=== PATIENT | female | born 1995 | race Caucasian/White ===

== ENCOUNTER 2017-08-02 11:45 | Emergency (ER) | payer BC, OTHER ==
[~2017-08-02] VITALS: Ht 172.7 cm; Wt 63.5 kg
[~2017-08-02 11:45] MED LIST: NAPR-243 PO; TRM50T PO
[2017-08-02] MEDS ORDERED: NS IV 1000 ML 1,000 ML IV ONE ×2 (11:51→14:10)
[2017-08-02] MEDS ORDERED: CATHETER FLUSH 10 ML SYR IV PRN (12:00)
[2017-08-02] MEDS ORDERED: IOHEXOL 350 MG/ML 100 ML (OMNIPAQUE 350) VIAL IV ONE (12:00)
[2017-08-02] MEDS ORDERED: NS 250 ML (IVPB) BAG IV ONE (12:00)
[2017-08-02 12:02] LABS: HEMOGLOBIN 11.8 G/DL (11.5-16.0); MEAN PLATELET VOLUME 8.5 FL (7.4-10.4); RED BLOOD COUNT 3.43 10^6/uL (4.35-5.85); RED CELL DISTRIBUTION WIDTH 13.3 % (10.0-14.5); WHITE BLOOD COUNT 4.9 10^3/uL (4.3-11.0)
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
[2017-08-02] MEDS ORDERED: TETANUS,DIPTH,PERTUSS P/F (BOOSTRIX) 0.5 ML VIAL IM ONE (12:15)
[2017-08-02 12:27] LABS: ALANINE AMINOTRANSFERASE 12 U/L (0-55); ALBUMIN 4.3 GM/DL (3.2-4.5); ALKALINE PHOSPHATASE 45 U/L (40-136); BILIRUBIN,DIRECT < 0.1 MG/DL (0.0-0.3); BILIRUBIN,INDIRECT 0.1 MG/DL; BILIRUBIN,TOTAL 0.2 MG/DL (0.1-1.0); BUN/CREATININE RATIO 15; CALCIUM 8.9 MG/DL (8.5-10.1); CARBON DIOXIDE 22 MMOL/L (21-32); CHLORIDE 106 MMOL/L (98-107); CREATININE SERUM 0.65 MG/DL (0.60-1.30); GFR ESTIMATED > 60; GLUCOSE 78 MG/DL (70-105); POTASSIUM 4.1 MMOL/L (3.6-5.0); SODIUM 137 MMOL/L (135-145); TOTAL PROTEIN 6.9 GM/DL (6.4-8.2)
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
[2017-08-02 13:23] LABS: BILIRUBIN,URINE NEGATIVE (NEGATIVE); CLARITY,URINE CLEAR; COLOR,URINE YELLOW; GLUCOSE, URINE (UA) NEGATIVE (NEGATIVE); KETONES,URINE NEGATIVE (NEGATIVE); LEUKOCYTE ESTERASE ,URINE NEGATIVE (NEGATIVE); NITRITE,URINE NEGATIVE (NEGATIVE); PH,URINE 5 (5-9); PROTEIN,URINE NEGATIVE (NEGATIVE); UROBILINOGEN,URINE NORMAL (NORMAL)
[2017-08-02] MEDS ORDERED: LYRICA (13:28)
[2017-08-02] MEDS ORDERED: COREG (13:28)
[2017-08-02 13:30] LABS: BACTERIA,URINE TRACE /HPF; WBC,URINE RARE /HPF
[2017-08-02] MEDS ORDERED: KETOROLAC 30 MG/ML VIAL IVP ONE (13:30)
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
[2017-08-02 13:35] LABS: AMPHETAMINE SCREEN, URINE NEGATIVE (NEGATIVE); BARBITURATE SCREEN URINE NEGATIVE (NEGATIVE); BENZODIAZEPINES SCREEN URINE NEGATIVE (NEGATIVE); CANNABINOID SCREEN, URINE NEGATIVE (NEGATIVE); COCAINE SCREEN URINE NEGATIVE (NEGATIVE); METHADONE STAT NEGATIVE (NEGATIVE); METHAMPHETAMINE SCREEN URINE S NEGATIVE (NEGATIVE); OPIATE SCREEN URINE NEGATIVE (NEGATIVE); OXYCODONE STAT NEGATIVE (NEGATIVE); PROPOXYPHENE STAT NEGATIVE (NEGATIVE); TRICYCLIC ANTIDEPRESSANTS SCRE POSITIVE (NEGATIVE)
[2017-08-02] MEDS ORDERED: CYMBALTA (13:38)
[2017-08-02] MEDS ORDERED: meTOproloL SUCCINATE 50 MG (TOPROL XL) TAB PO SCH (15:30)
[2017-08-02] MEDS ORDERED: METO-351 PO (15:33)
[2017-08-02 15:45] VITALS: BP 111/77
== END 2017-08-02 15:45 | disposition home or self-care (01) ==
LOC: EDUNIT# 11:45 → ER 11:47
DX: R41.0 Disorientation, unspecified (principal); R00.0 Tachycardia, unspecified; F32.9 Major depressive disorder, single episode, unspecified; R40.2142 Coma scale, eyes open, spontaneous, at arrival to emergency department; R40.2242 Coma scale, best verbal response, confused conversation, at arrival to emergency department; R40.2362 Coma scale, best motor response, obeys commands, at arrival to emergency department; V43.52XA Car driver injured in collision with other type car in traffic accident, initial encounter
CPT/HCPCS: 36415; 70450; 71045; 71260; 72125; 72131; 74177; 80048; 80076; 80306; 80320; 81000; 84443; 84703; 85027; 90471; 90715; 93005; 93041; 96361; 96374

== ENCOUNTER 2017-08-18 11:11 | Emergency (ER) | payer BC, OTHER ==
[~2017-08-18] VITALS: Ht 172.7 cm; Wt 63.5 kg
[~2017-08-18 11:11] MED LIST changes: +COREG; +CYMBALTA; +LYRICA; +METO-351 PO
[2017-08-18 11:50] LABS: BILIRUBIN,URINE NEGATIVE (NEGATIVE); CLARITY,URINE CLEAR; COLOR,URINE YELLOW; GLUCOSE, URINE (UA) NEGATIVE (NEGATIVE); KETONES,URINE NEGATIVE (NEGATIVE); LEUKOCYTE ESTERASE ,URINE 1+ (NEGATIVE); NITRITE,URINE NEGATIVE (NEGATIVE); PH,URINE 7 (5-9); PROTEIN,URINE NEGATIVE (NEGATIVE); UROBILINOGEN,URINE NORMAL (NORMAL)
[2017-08-18 12:03] LABS: BACTERIA,URINE NEGATIVE /HPF; RBC,URINE 0-2 /HPF; WBC,URINE 0-2 /HPF
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
[2017-08-18] MEDS ORDERED: KETOROLAC 30 MG/ML VIAL IVP STA (12:26)
[2017-08-18] MEDS ORDERED: NS IV 1000 ML 1,000 ML IV ONE (12:26)
[2017-08-18] MEDS ORDERED: ONDANSETRON 4 MG/2 ML (SDV) Z0FRAN IVP ONE (12:30)
[2017-08-18 12:31] LABS: AMPHETAMINE SCREEN, URINE NEGATIVE (NEGATIVE); BARBITURATE SCREEN URINE NEGATIVE (NEGATIVE); BENZODIAZEPINES SCREEN URINE NEGATIVE (NEGATIVE); CANNABINOID SCREEN, URINE NEGATIVE (NEGATIVE); COCAINE SCREEN URINE NEGATIVE (NEGATIVE); METHADONE STAT NEGATIVE (NEGATIVE); METHAMPHETAMINE SCREEN URINE S NEGATIVE (NEGATIVE); OPIATE SCREEN URINE POSITIVE (NEGATIVE); OXYCODONE STAT NEGATIVE (NEGATIVE); PROPOXYPHENE STAT NEGATIVE (NEGATIVE); TRICYCLIC ANTIDEPRESSANTS SCRE NEGATIVE (NEGATIVE)
[2017-08-18 12:37] LABS: BASOPHILS % (AUTO) 0 % (0-10); EOSINOPHILS # (AUTO) 0.1 10^3/uL (0.0-0.3); EOSINOPHILS % (AUTO) 1 % (0-10); HEMATOCRIT 39 % (35-52); LYMPHOCYTES # (AUTO) 1.7 X 10^3 (1.0-4.0); LYMPHOCYTES % (AUTO) 24 % (12-44); MEAN CORPUSCULAR HEMOGLOBIN 34 PG (25-34); MEAN CORPUSCULAR HGB CONC 34 G/DL (32-36); MEAN CORPUSCULAR VOLUME 101 FL (80-99); MONOCYTES # (AUTO) 0.6 X 10^3 (0.0-1.0); MONOCYTES % (AUTO) 8 % (0-12); NEUTROPHILS # (AUTO) 4.7 X 10^3 (1.8-7.8); NEUTROPHILS % (AUTO) 66 % (42-75); PLATELET COUNT 414 10^3/uL (130-400); RED BLOOD COUNT 3.83 10^6/uL (4.35-5.85); RED CELL DISTRIBUTION WIDTH 13.2 % (10.0-14.5)
[2017-08-18] MEDS ORDERED: NS 250 ML (IVPB) BAG IV ONE (12:45)
[2017-08-18] MEDS ORDERED: IOHEXOL 350 MG/ML 100 ML (OMNIPAQUE 350) VIAL IV ONE (12:45)
[2017-08-18] MEDS ORDERED: CATHETER FLUSH 10 ML SYR IV PRN (12:45)
[2017-08-18 12:55] LABS: ALANINE AMINOTRANSFERASE 13 U/L (0-55); ALBUMIN 4.6 GM/DL (3.2-4.5); ALKALINE PHOSPHATASE 57 U/L (40-136); BILIRUBIN,TOTAL 0.4 MG/DL (0.1-1.0); BUN/CREATININE RATIO 13; CALCIUM 9.4 MG/DL (8.5-10.1); CARBON DIOXIDE 25 MMOL/L (21-32); CHLORIDE 106 MMOL/L (98-107); CREATININE SERUM 0.67 MG/DL (0.60-1.30); GFR ESTIMATED > 60; GLUCOSE 92 MG/DL (70-105); LIPASE 13 U/L (8-78); SODIUM 138 MMOL/L (135-145); TOTAL PROTEIN 7.8 GM/DL (6.4-8.2)
--- NOTE | 2017-08-18 13:13 | Diagnostic Imaging Report ---
PROCEDURE: CT abdomen and pelvis with contrast. TECHNIQUE: Multiple contiguous axial images were obtained through the abdomen and pelvis after administration of intravenous contrast. INDICATION: Abdominal pain. FINDINGS: The previous CT abdomen/pelvis exam of 08/02/2017 fail to show any sign of acute abnormality of the abdomen or pelvis. There did appear to be a considerable amount of fecal material throughout the colon, however. On this study, the amount of fecal material within the colon has diminished significantly. However, there is still distention of much of the colon by gas. The appendix was not well-visualized but there are no indirect signs of acute appendicitis. There is no pelvic mass or free fluid collection noted. The uterus and urinary bladder are grossly unremarkable. The liver is homogeneous and not enlarged. The spleen, pancreas, adrenals, gallbladder, kidneys, aorta and inferior vena cava are unremarkable for an acute abnormality. The stomach is partially filled with gas and fluid and consequently difficult to assess. There is also distention of the distal esophagus by gas. The lung bases are clear. The bone windows show no evidence for fracture or for destructive lesion. IMPRESSION: 1. In the interval since the recent exam of 08/02/2017, the amount of fecal material within the colon has diminished significantly. However, there is still distention of much of the colon by gas. 2. There is still no acute abnormality of the abdomen or pelvis identified. Dictated by: Dictated on workstation # [id number]
[2017-08-18] MEDS ORDERED: ONDA4TAB11 PO (13:34)
[2017-08-18] MEDS ORDERED: HYOS0.1283 SL (13:34)
[2017-08-18 13:45] VITALS: BP 123/89
== END 2017-08-18 13:56 | disposition home or self-care (01) ==
LOC: EDUNIT# 11:11 → ER 11:13
DX: N92.6 Irregular menstruation, unspecified (principal); R10.84 Generalized abdominal pain; R14.1 Gas pain; M35.00 Sjogren syndrome, unspecified; F32.9 Major depressive disorder, single episode, unspecified
CPT/HCPCS: 36415; 74177; 80053; 80306; 80320; 81000; 83690; 84703; 85025; 86141; 96361; 96374; 96375

== ENCOUNTER 2018-02-13 11:26 | Emergency (ER) | payer BC, MEDICAID ==
[~2018-02-13] VITALS: Ht 172.7 cm; Wt 65.8 kg
[~2018-02-13 11:26] MED LIST changes: +HYOS0.1283 SL; +ONDA4TAB11 PO
--- OUTSIDE RECORDS SUMMARY | 2018-02-13 11:31 | XMS REPORT | Referral Summary ---
Author Author [facility] Organization [facility] Address Unknown Phone Unavailable Care Team Providers Care Registered Radiation Therapist Name Role Phone Jennifer Leonardo Francisco Javier PCP Encounter Date(s): 03/17/17 - 03/17/17 [facility] [address] [place] [address] [phone] Discharge Diagnosis: Back pain Discharge Diagnosis: Back muscle spasm Discharge Disposition: 01-Home or Self Care Attending Physician: Dequan Alejo MD Admitting Physician: Dequan Alejo MD Vital Signs Most recent to 1 oldest [Reference Range]: Temperature Oral 36.4 degC [35.8-37.3 degC] (03/17/17 12:31 PM) Peripheral Pulse 121 bpm Rate [60-100 bpm] *HI* (03/17/17 12:31 PM) Respiratory Rate 18 br/min [14-20 br/min] (03/17/17 12:31 PM) Blood Pressure 114/84 mmHg [90-140/60-90 mmHg] (03/17/17 12:31 PM) SpO2 96 % (03/17/17 12:31 PM) Problem List Condition Effective Dates Status Health Status Informant Anxiety(Confirmed) Active patient Depression(Confirmed Active patient ) Fibromyalgia(Confirm Active patient ed) Chronic Active patient tachycardia(Confirme d) Allergies, Adverse Reactions, Alerts No Known Allergies Medications carvedilol 3.125 mg, Oral, BID, 0 Refill(s) Start Date: 01/23/17 Status: Ordered cyclobenzaprine 10 mg oral tablet 10 mg 1 tabs, Oral, TID, as needed for spasm, # 12 tabs, 0 Refill(s) Start Date: 03/17/17 Stop Date: 03/18/17 Status: Ordered etodolac 500 mg, Oral, Daily, knee pain, 0 Refill(s) Start Date: 01/23/17 Status: Ordered Lyrica 300 mg, Oral, BID, 0 Refill(s) Start Date: 01/23/17 Status: Ordered Naprosyn 375 mg oral tablet 375 mg 1 tabs, Oral, BID, as needed for pain, # 20 tabs, 0 Refill(s) Start Date: 03/17/17 Stop Date: 03/18/17 Status: Ordered Trintellix 5 mg, Oral, Daily, 0 Refill(s) Start Date: 01/23/17 Status: Ordered Ultram 50 mg oral tablet 50 mg 1 tabs, Oral, q6hr, as needed for pain, # 8 tabs, 0 Refill(s) Start Date: 03/17/17 Stop Date: 03/18/17 Status: Ordered Results Hematology Most recent to 1 oldest [Reference Range]: WBC [4.8-10.8 8.9 10*3/uL 10*3/uL] (03/17/17 12:45 PM) RBC [4.00-5.20] 4.07 (03/17/17 12:45 PM) Hgb [12.0-16.0 14.0 gm/dL gm/dL] (03/17/17 12:45 PM) Hct [37.0-47.0 %] 40.7 % (03/17/17 12:45 PM) MCV [82.0-99.0 fL] 100.0 fL *HI* (03/17/17 12:45 PM) MCH [27.0-32.0 pg] 34.4 pg *HI* (03/17/17 12:45 PM) MCHC [32.0-36.0 34.4 gm/dL gm/dL] (03/17/17 12:45 PM) RDW [11.5-14.5 %] 12.7 % (03/17/17 12:45 PM) Platelet [150-400 335 10*3/uL 10*3/uL] (03/17/17 12:45 PM) MPV [9.4-12.4 fL] 8.7 fL *LOW* (03/17/17 12:45 PM) Immature 0.2 % Granulocytes (03/17/17 12:45 PM) [0.0-1.0 %] Neutrophils [51-75 70 % %] (03/17/17 12:45 PM) Lymphocytes [20-46 24 % %] (03/17/17 12:45 PM) Monocytes [4-11 %] 6 % (03/17/17 12:45 PM) Eosinophils [0-4 %] 0 % (03/17/17 12:45 PM) Basophils [0-2 %] 0 % (03/17/17 12:45 PM) Neutro Absolute 6.22 [1.90-7.00] (03/17/17 12:45 PM) Lymph Absolute 2.13 [0.80-3.30] (03/17/17 12:45 PM) [place] Absolute 0.53 [0.30-1.00] (03/17/17 12:45 PM) Eos Absolute 0.02 [0.00-0.50] (03/17/17 12:45 PM) Baso Absolute 0.02 [0.00-0.20] (03/17/17:45 PM) Nucleated RBC 0.0 /100 WBC Automated [0 /100 (03/17/17:45 PM) WBC] Chemistry Most recent to 1 oldest [Reference Range]: Sodium Lvl [136-144 136 mEq/L mEq/L] (03/17/17 12:45 PM) Potassium Lvl 3.5 mEq/L [3.6-5.1 mEq/L] *LOW* (03/17/17 12:45 PM) Chloride [99-109 105 mEq/L mEq/L] (03/17/17 12:45 PM) CO2 [22-32 mEq/L] 22 mEq/L (03/17/17 12:45 PM) AGAP [3-20 mEq/L] 9 mEq/L (03/17/17 12:45 PM) BUN [4-20 mg/dL] 12 mg/dL (03/17/17 12:45 PM) Glucose Lvl [70-100 83 mg/dL mg/dL] (03/17/17 12:45 PM) Creatinine Lvl 0.61 mg/dL [0.44-1.03 mg/dL] (03/17/17 12:45 PM) eGFR [>60 mL/min] >60 mL/min 1 (11/25/17 12:45 PM) Calcium Lvl 9.8 mg/dL [8.6-10.0 mg/dL] (03/17/17 12:45 PM) Albumin Lvl [3.5-4.8 5.0 gm/dL gm/dL] *HI* (03/17/17 12:45 PM) Total Protein 8.0 gm/dL [6.1-7.9 gm/dL] *HI* (03/17/17 12:45 PM) Globulin [1.9-4.3 3.0 gm/dL gm/dL] (03/17/17 12:45 PM) ALT [14-54 U/L] 14 U/L (03/17/17 12:45 PM) AST [15-41 U/L] 16 U/L (03/17/17 12:45 PM) Alk Phos [26-104 57 U/L U/L] (03/17/17 12:45 PM) Bili Total [0.2-1.2 0.4 mg/dL 2 mg/dL] (03/17/17 12:45 PM) Screen, Negative Urine NPT (03/17/17 12:45 PM) 1Result Comment: Multiply eGFR results by 1.21 for race. 2Result Comment: Naproxen, specifically the metabolite O-desmethylnaproxen, may cause spurious elevation in Total Bilirubin levels. Urinalysis Most recent to 1 oldest [Reference Range]: UA Color Yellow (03/17/17 12:45 PM) UA Appear Sl Cloudy (03/17/17 12:45 PM) UA pH [5.0-8.0] 5.5 (03/17/17 12:45 PM) UA Leuk Est Negative [Negative] (03/17/17 12:45 PM) UA Nitrite Negative [Negative] (03/17/17 12:45 PM) UA Protein Trace [Negative] *ABN* (03/17/17 12:45 PM) UA Glucose Negative [Negative] (03/17/17 12:45 PM) UA Ketones Negative [Negative] (03/17/17 12:45 PM) UA Urobilinogen 0.2 mg/dL [<1.0 mg/dL] (03/17/17 12:45 PM) UA Bili [Negative] Positive 1 *ABN* (03/17/17 12:45 PM) UA Blood [Negative] Negative (03/17/17 12:45 PM) UA Spec Grav 1.015 [1.003-1.030] (03/17/17 12:45 PM) Type Clean Catch (03/17/17 12:45 PM) 1Result Comment: Positive bilirubin by dipstick. Please use clinical correlation to determine a positive bilirubin in urine. Immunizations No data available for this section Procedures No data available for this section Social History Social History Type Response Smoking Status Current every day smoker; Type: Cigarettes; Tobacco use per day: Between 1/4 pack and 1/2 pack entered on: 01/22/17 Assessment and Plan No data available for this section
--- OUTSIDE RECORDS SUMMARY | 2018-02-13 11:31 | XMS REPORT | Referral Summary ---
Author Author [facility] Organization [facility] Address Unknown Phone Unavailable Care Team Providers Care Compass Operator Name Role Phone Neli Oliveira PCP Encounter VC Date(s): 06/18/15 - 06/18/15 [facility] [address] [place] [address] [facility] Discharge Diagnosis: Cervical sprain Discharge Disposition: 01-Home or Self Care Attending Physician: Toy Mcdaniel PA-C Attending Physician: Provider, Immediate Care Admitting Physician: Provider, Immediate Care Vital Signs Most recent to 1 oldest [Reference Range]: Temperature Oral 36.1 degC [35.8-37.3 degC] (06/18/15 1:12 PM) Peripheral Pulse 136 bpm Rate [60-100 bpm] *HI* (06/18/15 1:12 PM) Blood Pressure 131/88 mmHg [90-140/60-90 mmHg] (06/18/15 1:12 PM) SpO2 98 % (06/18/15 1:12 PM) Problem List No data available for this section Allergies, Adverse Reactions, Alerts No Known Allergies Medications cyclobenzaprine Oral, 0 Refill(s) Start Date: 06/18/15 Status: Ordered Cymbalta Oral, 0 Refill(s) Start Date: 04/19/15 Status: Ordered gabapentin Oral, 0 Refill(s) Start Date: 04/19/15 Status: Ordered NSAID for arthritis NSAID for arthritis, 0 Refill(s) Start Date: 06/18/15 Status: Ordered oxyCODONE 5 mg oral tablet mg tabs, Oral, q6hr, 0 Refill(s) Start Date: 04/19/15 Status: Ordered Results No data available for this section Immunizations No data available for this section Procedures No data available for this section Social History Social History Type Response Smoking Status Former smoker Assessment and Plan Extracted from: Title: Office Visit Note Author: Toy Mcdaniel PA-C Date: 06/18/15 Assessment/Plan 1.Cervical sprain Pt declined cervical x-ray. Will RICE injury, taken NSAIDs for pain. No neurological deficits noted. Diagnosis and treatment discussed. Patient advised to follow up with PCP in 2-3 days. If symptoms worsen at any time, patient will go to the nearest ER for further evaluation. Patient stable upon discharge, alert and orientated with no apparent distress, and indicated understanding of discharge instructions. Ordered: Office Visit Level 2 Est 39512
--- OUTSIDE RECORDS SUMMARY | 2018-02-13 11:31 | XMS REPORT | Referral Summary ---
Author Author [facility] Organization [facility] Address Unknown Phone Unavailable Care Team Providers Care Counter Attendant Name Role Phone Neli Oliveira PCP Encounter VC Date(s): 07/02/15 - 07/02/15 [facility] [address] [place] [address] [facility] Discharge Diagnosis: Lumbago with sciatica Discharge Disposition: 01-Home or Self Care Attending Physician: Maureen Lyles Attending Physician: Provider, Immediate Care Admitting Physician: Provider, Immediate Care Vital Signs Most recent to 1 oldest [Reference Range]: Temperature Oral 37 degC [35.8-37.3 degC] (07/02/15 12:38 PM) Peripheral Pulse 118 bpm Rate [60-100 bpm] *HI* (07/02/15 12:38 PM) Respiratory Rate 18 br/min [14-20 br/min] (07/02/15 12:38 PM) Blood Pressure 124/80 mmHg [90-140/60-90 mmHg] (07/02/15 12:38 PM) SpO2 98 % (07/02/15 12:38 PM) Problem List No data available for this section Allergies, Adverse Reactions, Alerts No Known Allergies Medications cyclobenzaprine Oral, 0 Refill(s) Start Date: 06/18/15 Status: Ordered Cymbalta Oral, 0 Refill(s) Start Date: 04/19/15 Status: Ordered etodolac 500 mg oral tablet 500 mg 1 tabs, Oral, BID, # 180 tabs, 0 Refill(s) Start Date: 07/02/15 Status: Ordered gabapentin Oral, 0 Refill(s) Start Date: 04/19/15 Status: Ordered HYDROcodone-acetaminophen 7.5 mg-325 mg oral tablet 1 tabs, Oral, q6hr, X 2 days, # 8 tabs, 0 Refill(s) Start Date: 07/02/15 Stop Date: 07/04/15 Status: Ordered lidocaine 5% topical film 1 patches, Topical, Daily, remove patches after 12 hours, # 7 patches, 0 Refill( s), Pharmacy: [facility] #[id number] Start Date: 07/02/15 Stop Date: 07/09/15 Status: Ordered lidocaine 5% topical film 1 patches, Topical, Daily, remove patches after 12 hours, # 7 patches, 0 Refill( s), Pharmacy: [facility] #[id number] Start Date: 07/02/15 Stop Date: 07/09/15 Status: Ordered lidocaine 5% topical film 1 patches, Topical, Daily, # 30 patches, 0 Refill(s) Start Date: 07/02/15 Status: Ordered NSAID for arthritis NSAID for [...] Extracted from: Title: Office Visit Note Author: Maureen Lyles Date: 07/02/15 Assessment/Plan 1.Lumbago with sciatica Discussed with patient that I will give her 2 days worth of narcotic medication but she needs to establish with her PCP for further pain management. Discussed use of therapeutic techniques: PRICEM therapy (protection, relative rest, ice, compression medications, modalities) for symptomatic relief. Instructed patient on medication, use, common side effects, and administration. Discussed proper OTC medication, including Tylenol or ibuprofen, for symptomatic relief. Instructed patient if symptoms worsen or new symptoms arise to seek medical attention here or at the ER. If no improvement of symptoms follow up with PCP in 2-3 days. Patient voiced understanding and agreed with treatment plan. Patient dismissed in stable condition. Ordered: Office Visit Level 3 Est 66716 Orders: HYDROcodone-acetaminophen, 1 tabs, Oral, q6hr, X 2 days, # 8 tabs, 0 Refill(s) Extracted from: Title: Ambulatory Patient Education Author: Maureen Lyles Date: 07/02/15 Family Medicine Back Exercises Back exercises help treat and prevent back injuries. The goal of back exercises is to increase the strength of your abdominal and back muscles and the flexibility of your back. These exercises should be started when you no longer have back pain. Back exercises include: Pelvic Tilt. Lie on your back with your knees bent. Tilt your pelvis until the lower part of your back is against the floor. Hold this position 5 to 10 sec and repeat 5 to 10 times. Knee to Chest. Pull first 1 knee up against your chest and hold for 20 to 30 seconds, repeat this with the other knee, and then both knees. This may be done with the other leg straight or bent, whichever feels better. Sit-Ups or Curl-Ups. Bend your knees 90 degrees. Start with tilting your pelvis, and do a partial, slow sit-up, lifting your trunk only 30 to 45 degrees off the floor. Take at least 2 to 3 seconds for each sit-up. Do not do sit-ups with your knees out straight. If partial sit-ups are difficult, simply do the above but with only tightening your abdominal muscles and holding it as directed. Hip-Lift. Lie on your back with your knees flexed 90 degrees. Push down with your feet and shoulders as you raise your hips a couple inches off the floor; hold for 10 seconds, repeat 5 to 10 times. Back arches. Lie on your stomach, propping yourself up on bent elbows. Slowly press on your hands, causing an arch in your low back. Repeat 3 to 5 times. Any initial stiffness and discomfort should lessen with repetition over time. Shoulder-Lifts. Lie face down with arms beside your body. Keep hips and torso pressed to floor as you slowly lift your head and shoulders off the floor. Do not overdo your exercises, especially in the beginning. Exercises may cause you some mild back discomfort which lasts for a few minutes; however, if the pain is more severe, or lasts for more than 15 minutes, do not continue exercises until you see your caregiver. Improvement with exercise therapy for back problems is slow. See your caregivers for assistance with developing a proper back exercise program. This information is not intended to replace advice given to you by your health care provider. Make sure you discuss any questions you have with your health care provider. Document Released: 05/17/2005 Document Revised: 07/01/2012 Document Reviewed: ExitCare Patient Information 2015 [employer], [facility]. No follow up information was provided.
--- OUTSIDE RECORDS SUMMARY | 2018-02-13 11:32 | XMS REPORT ---
Author Author Elijah Pedro [facility] Address [address], [place] [id number] Care Team Providers Care Manufacturing Engineering Manager Name Role Phone Elijah Pedro Unavailable PROBLEMS Type Condition ICD9-CM Code TCO34-OL Code Onset Dates Condition Status SNOMED Code Problem Depression with anxiety F41.8 Active 431741418 Problem Fibromyalgia M79.7 Active 005856370 Problem Other chronic pain G89.29 Active 66162889 Problem PSVT (paroxysmal supraventricular tachycardia) I47.1 Active 94085033 Problem Psychophysiological insomnia F51.04 Active 544106922 ALLERGIES Substance Reaction Event Type Date Status N.K.D.A. Unknown Non Drug Allergy Jul, Unknown SOCIAL HISTORY No smoking Hx information available PLAN OF CARE Activity Details Follow Up 6 Weeks Reason:null VITAL SIGNS Weight 130 lbs 2016-08-16 Height 67 in 2016-08-16 BMI 20.36 kg/m2 2016-08-16 Temperature 98.9 degrees Fahrenheit 2016-08-16 Respiratory Rate 16 /min 2016-08-16 Heart Rate 105 /min 2016-08-16 Blood pressure systolic 105 mm Hg 2016-08-16 Blood pressure diastolic 71 mm Hg 2016-08-16 MEDICATIONS Medication Instructions Dosage Frequency Start Date End Date Duration Status [place] 325 mg-5 mg orally bid/prn 1 tab(s) Active Lyrica 150 mg orally 3 times a day 1 cap(s) 8h 30 days Active Coreg 3.125 mg orally 2 times a day 1 tab(s) 12h 90 days Active etodolac 500 mg orally 2 times a day 1 tab(s) 12h Active Ambien 5 mg orally once a day (at bedtime) 1 tab(s) 30 days Active DULoxetine Hydrochloride 60 mg orally once a day 1 cap(s) 24h Jul, 30 day(s) Active RESULTS No Results PROCEDURES Procedure Date Ordered Related Diagnosis Body Site Office New Level 3 August 16, 2016 IMMUNIZATIONS No Known Immunizations
--- OUTSIDE RECORDS SUMMARY | 2018-02-13 11:32 | XMS REPORT ---
Author Author Estrella Redd Organization [employer] Address Unknown Phone Unavailable Care Team Providers Care Electro Mechanic Name Role Phone Estrella Redd CP Unavailable Allergies No Known Allergies Problems Problem Type Condition Code Onset Dates Condition Status Problem Abnormal EKG R94.31 Active Problem Chest pain R07.9 Active Problem Sinus tachycardia R00.0 Active Problem Fibromyalgia M79.7 Active Problem Anxiety F41.9 Active Problem Palpitation R00.2 Active Medications No Known Medications Results No Known Results Summary Purpose [employer] Submission
--- OUTSIDE RECORDS SUMMARY | 2018-02-13 11:32 | XMS REPORT ---
Author Author Tramaine Edenilsonsander Organization [facility] Address [address] [place] [address] Care Team Providers Care Pre Owned Sales Manager Name Role Phone Estrella Redd Unavailable PROBLEMS Type Condition ICD9-CM Code [id number] Code Onset Dates Condition Status SNOMED Code Problem Sinus tachycardia R00.0 Active 62321100 Problem Abnormal EKG R94.31 Active 037428386 Problem Palpitation R00.2 Active 50499527 Problem Fibromyalgia M79.7 Active 409753469 Problem Chest pain R07.9 Active 77513206 Problem Anxiety F41.9 Active 12006484 ALLERGIES No Known Allergies ENCOUNTERS Encounter Location Date Diagnosis [address] [address] Nov, [address] [address] Nov, Tachycardia R00.[address] [address] Nov, [address] [address] Nov, [address] [address] Nov, [address] [address] Nov, [address] [address] Nov, Sinus tachycardia R00.0 ; Chest pain R07.9 ; Palpitation R00.2 ; Anxiety F41.9 and Fibromyalgia M79.[address] [address] Nov, Abnormal EKG R94.31 IMMUNIZATIONS No Known Immunizations SOCIAL HISTORY Never Assessed REASON FOR VISIT ^[facility] OP TM PER DR NAVJOT [place] DX ABNORMAL EKG PLAN OF CARE Activity Details Follow Up 1 Week Reason: VITAL SIGNS Height 5 ft 8 in in 2015-11-23 Weight 116 lbs 2015-11-23 BMI 17.64 kg/m2 2015-11-23 Oximetry 98 % 2015-11-23 Heart Rate 121 /min 2015-11-23 Blood pressure systolic 110 mm Hg 2015-11-23 Blood pressure diastolic 80 mm Hg 2015-11-23 MEDICATIONS Medication Instructions Dosage Frequency Start Date End Date Duration Status Cymbalta 60 MG Orally Twice a day 1 capsule 12h Active Ambien 5 MG Orally Once a day 1 tablet at bedtime 24h Active Xanax 0.5 MG Orally Three times a day 1 tablet 8h Active [place] 5-325 MG Orally bid 1 tab 12h Active Neurontin 600 MG Orally Three times a day 1 tablet 8h Active RESULTS No Results PROCEDURES No Known procedures INSTRUCTIONS MEDICATIONS ADMINISTERED No Known Medications MEDICAL (GENERAL) HISTORY Type Description Date Medical History anxiety disorder Medical History scoliosis Medical History chest pain Medical History supraventricular tachycardia by hisptory - no documentation Medical History Fibromyalgia
--- OUTSIDE RECORDS SUMMARY | 2018-02-13 11:32 | XMS REPORT ---
Author Author Estrella Redd Organization [employer] Address Unknown Phone Unavailable Care Team Providers Care Spa Manager/Esthetician Name Role Phone Estrella Redd CP Unavailable [...]
--- OUTSIDE RECORDS SUMMARY | 2018-02-13 11:32 | XMS REPORT | Referral Summary ---
Author Author [facility] Organization [facility] Address Unknown Phone Unavailable Care Team Providers Care Software Engineer Backend Name Role Phone Neli Oliveira PCP Encounter Date(s): 09/18/15 - 09/18/15 [facility] [address] [place] [address] [facility] Discharge Diagnosis: Muscle pain, fibromyalgia Discharge Disposition: 01-Home or Self Care Attending Physician: Provider, Immediate Care Admitting Physician: Provider, Immediate Care Vital Signs Most recent to 1 oldest [Reference Range]: Temperature Oral 36.9 degC [35.8-37.3 degC] (09/18/15 12:44 PM) Peripheral Pulse 94 bpm Rate [60-100 bpm] (09/18/15 12:44 PM) Blood Pressure 113/69 mmHg [90-140/60-90 mmHg] (09/18/15 12:44 PM) SpO2 98 % (09/18/15 12:44 PM) Problem List No data available for [...] 0 Refill(s) Start Date: 04/19/15 Status: Ordered lidocaine 5% topical film 1 patches, Topical, Daily, remove patches after 12 hours, # 7 patches, 0 Refill( s), Pharmacy: [facility] #[id number] Start Date: 07/02/15 Stop Date: 07/09/15 Status: Ordered lidocaine 5% topical film 1 patches, Topical, Daily, remove patches after 12 hours, # 7 patches, 0 Refill( s), Pharmacy: [facility] #[id number] Start Date: 07/02/15 Stop Date: 07/09/15 Status: [...] smoker Assessment and Plan Extracted from: Title: Ambulatory Patient Education Author: Rupert Munoz APRN Date: 09/17 Family Medicine Fibromyalgia Fibromyalgia is a disorder that is often misunderstood. It is associated with muscular pains and tenderness that comes and goes. It is often associated with fatigue and sleep disturbances. Though it tends to be long-lasting, fibromyalgia is not life-threatening. CAUSES The exact cause of fibromyalgia is unknown. People with certain gene types are predisposed to developing fibromyalgia and other conditions. Certain factors can play a role as triggers, such as: Spine disorders. Arthritis. Severe injury (trauma) and other physical stressors. Emotional stressors. SYMPTOMS The main symptom is pain and stiffness in the muscles and joints, which can vary over time. Sleep and fatigue problems. Other related symptoms may include: Bowel and bladder problems. Headaches. Visual problems. Problems with odors and noises. Depression or mood changes. Painful periods (dysmenorrhea). Dryness of the skin or eyes. DIAGNOSIS There are no specific tests for diagnosing fibromyalgia. Patients can be diagnosed accurately from the specific symptoms they have. The diagnosis is made by determining that nothing else is causing the problems. TREATMENT There is no cure. Management includes medicines and an active, healthy lifestyle. The goal is to enhance physical fitness, decrease pain, and improve sleep. HOME CARE INSTRUCTIONS Only take [id number] or prescription medicines as directed by your caregiver. Sleeping pills, tranquilizers, and pain medicines may make your problems worse. Low-impact aerobic exercise is very important and advised for treatment. At first, it may seem to make pain worse. Gradually increasing your tolerance will overcome this feeling. Learning relaxation techniques and how to control stress will help you. Biofeedback, visual imagery, hypnosis, muscle relaxation, yoga, and meditation are all options. Anti-inflammatory medicines and physical therapy may provide short-term help. Acupuncture or massage treatments may help. Take muscle relaxant medicines as suggested by your caregiver. Avoid stressful situations. Plan a healthy lifestyle. This includes your diet, sleep, rest, exercise, and friends. Find and practice a hobby you enjoy. Join a fibromyalgia support group for interaction, ideas, and sharing advice. This may be helpful. SEEK MEDICAL CARE IF: You are not having good results or improvement from your treatment. FOR MORE INFORMATION National Fibromyalgia Association: www.fmaware.org Arthritis Foundation: www.arthritis.org This information is not intended to replace advice given to you by your health care provider. Make sure you discuss any questions you have with your health care provider. Document Released: 04/09/2006 Document Revised: 07/01/2012 Document Reviewed: ExitCare Patient Information 2015 [employer]. Follow Up With: Where: When: Please follow up with Rheumatology this next week Comments:
--- OUTSIDE RECORDS SUMMARY | 2018-02-13 11:32 | XMS REPORT ---
Author Author Estrella Redd Organization [employer] Address Unknown Phone Unavailable Care Team Providers Care Electronic Sales And Service Technician Name Role Phone Estrella Redd CP Unavailable Allergies No Known Allergies Problems Problem Type Condition Code Onset Dates Condition Status Problem Abnormal EKG R94.31 Active Problem Chest pain R07.9 Active Problem Sinus tachycardia R00.0 Active Problem Fibromyalgia M79.7 Active Problem Anxiety F41.9 Active Problem Palpitation R00.2 Active Medications Medication Code System Code Instructions Start Date End Date Status Dosage Lab Order NDC 0 Orders Nov 23, 2015 as directed Results No Known Results Summary Purpose [employer] Submission
--- OUTSIDE RECORDS SUMMARY | 2018-02-13 11:32 | XMS REPORT | Referral Summary ---
Author Author [facility] Organization [facility] Address Unknown Phone Unavailable Care Team Providers Care Health And Nutrition Specialist Name Role Phone Oral Nova PCP Encounter Date(s): 07/03/16 - 07/03/16 [facility] [address] [place], [place] [address] Discharge Diagnosis: Nonspecific chest pain Discharge Diagnosis: Tachycardia Discharge Diagnosis: Dehydration Discharge Disposition: 01-Home or Self Care Attending Physician: Juvenal Marinelli MD Admitting Physician: Juvenal Marinelli MD Vital Signs Most recent to 1 oldest [Reference Range]: Temperature Temporal 36.7 degC Artery [36.3-37.8 (07/03/16 2:14 PM) degC] Peripheral Pulse 145 bpm Rate [60-100 bpm] *HI* (07/03/16 2:38 PM) Heart Rate Monitored 99 bpm [60-100 bpm] (07/03/16 5:02 PM) Respiratory Rate 19 br/min [14-20 br/min] (07/03/16 5:02 PM) Blood Pressure 132/85 mmHg [90-140/60-90 mmHg] (07/03/16 4:30 PM) Mean Arterial 100 mmHg Pressure, Cuff (07/03/16 4:30 PM) SpO2 95 % (07/03/16 4:30 PM) Problem List Condition Effective Dates Status Health Status Informant Fibromyalgia(Confirm Active patient ed) Chronic Active patient tachycardia(Confirme d) No Chronic Problems Active Allergies, Adverse Reactions, Alerts No Known Allergies [...] # 7 patches, 0 Refill( s), Pharmacy: [facility] #[id number] Start Date: 07/02/15 Stop Date: 07/09/15 Status: Ordered lidocaine 5% topical film 1 patches, Topical, Daily, remove patches after 12 hours, # 7 patches, 0 Refill( s), Pharmacy: [facility] #[id number] Start Date: 07/02/15 Stop Date: 07/09/15 Status: Ordered lidocaine 5% topical film 1 patches, Topical, Daily, # 30 patches, 0 Refill(s) Start Date: 07/02/15 Status: Ordered NSAID for arthritis NSAID for arthritis, 0 Refill(s) Start Date: 06/18/15 Status: Ordered oxyCODONE 5 mg oral tablet mg tabs, Oral, q6hr, 0 Refill(s) Start Date: 04/19/15 Status: Ordered Results Hematology Most recent to 1 oldest [Reference Range]: WBC [4.8-10.8 8.3 10*3/uL 10*3/uL] (07/03/16 2:35 PM) RBC [4.00-5.20] 4.30 (07/03/16 2:35 PM) Hgb [12.0-16.0 14.7 gm/dL gm/dL] (07/03/16 2:35 PM) Hct [37.0-47.0 %] 44.1 % (07/03/16 2:35 PM) MCV [82.0-99.0 fL] 102.6 fL *HI* (07/03/16 2:35 PM) MCH [27.0-32.0 pg] 34.2 pg *HI* (07/03/16 2:35 PM) MCHC [32.0-36.0 33.3 gm/dL gm/dL] (07/03/16 2:35 PM) RDW [11.5-14.5 %] 12.7 % (07/03/16 2:35 PM) Platelet [150-400 290 10*3/uL 10*3/uL] (07/03/16 2:35 PM) MPV [9.4-12.4 fL] 9.2 fL *LOW* (07/03/16 2:35 PM) Immature 0.4 % Granulocytes (07/03/16 2:35 PM) [0.0-1.0 %] Neutrophils [51-75 64 % %] (07/03/16 2:35 PM) Lymphocytes [20-46 29 % %] (07/03/16 2:35 PM) Monocytes [4-11 %] 6 % (07/03/16 2:35 PM) Eosinophils [0-4 %] 0 % (07/03/16 2:35 PM) Basophils [0-2 %] 0 % (07/03/16 2:35 PM) Neutro Absolute 5.31 [1.90-7.00] (07/03/16 2:35 PM) Lymph Absolute 2.39 [0.80-3.30] (07/03/16 2:35 PM) Terry Absolute 0.49 [0.30-1.00] (07/03/16 2:35 PM) Eos Absolute 0.03 [0.00-0.50] (07/03/16 2:35 PM) Baso Absolute 0.01 [0.00-0.20] (07/03/16 2:35 PM) Nucleated RBC 0.0 /100 WBC Automated [0 /100 (07/03/16 2:35 PM) WBC] Chemistry Most recent to 1 oldest [Reference Range]: Sodium Lvl [136-144 136 mEq/L mEq/L] (07/03/16 2:35 PM) Potassium Lvl 3.6 mEq/L [3.6-5.1 mEq/L] (07/03/16 2:35 PM) Chloride [99-109 102 mEq/L mEq/L] (07/03/16 2:35 PM) CO2 [22-32 mEq/L] 24 mEq/L (07/03/16 2:35 PM) AGAP [3-20] 10 (07/03/16 2:35 PM) BUN [4-20 mg/dL] 7 mg/dL (07/03/16 2:35 PM) Glucose Lvl [70-100 114 mg/dL mg/dL] *HI* (07/03/16 2:35 PM) Creatinine Lvl 0.61 mg/dL [0.44-1.03 mg/dL] (07/03/16 2:35 PM) eGFR [>60] >60 1 (07/03/16 2:35 PM) Calcium Lvl 9.5 mg/dL [8.6-10.0 mg/dL] (07/03/16 2:35 PM) Albumin Lvl [3.5-4.8 4.9 gm/dL gm/dL] *HI* (07/03/16 2:35 PM) Total Protein 7.8 gm/dL [6.1-7.9 gm/dL] (07/03/16 2:35 PM) Globulin [1.9-4.3 2.9 gm/dL gm/dL] (07/03/16 2:35 PM) ALT [14-54 U/L] 12 U/L *LOW* (07/03/16 2:35 PM) AST [15-41 U/L] 17 U/L (07/03/16 2:35 PM) Alk Phos [26-104 59 U/L U/L] (07/03/16 2:35 PM) Bili Total [0.2-1.2 0.4 mg/dL 2 mg/dL] (07/03/16 2:35 PM) Troponin [<0.06 <0.05 ng/mL ng/mL] (07/03/16 2:35 PM) Screen, Negative Urine NPT (07/03/16 2:58 PM) TSH with Reflex Free 1.50 T4 [0.35-5.50] (07/03/16 2:35 PM) 1Result Comment: Multiply eGFR results by 1.21 for race. 2Result Comment: Naproxen, specifically the metabolite O-desmethylnaproxen, may cause spurious elevation in Total Bilirubin levels. Toxicology Most recent to 1 oldest [Reference Range]: U Amphetamine Scrn Negative (07/03/16 2:50 PM) U Cocaine Scrn Negative (07/03/16 2:50 PM) U Cannab Scrn Negative (07/03/16 2:50 PM) U Opiate Scrn Negative (07/03/16 2:50 PM) U PCP Scrn Negative (07/03/16 2:50 PM) U Benzodiazepine Negative Scrn (07/03/16 2:50 PM) U Barbiturate Scrn Negative (07/03/16 2:50 PM) Methadone Lvl Negative (07/03/16 2:50 PM) Tricyclics Negative 1 (07/03/16 2:50 PM) 1Result Comment: Cut-off concentrations: Amphetamines: 1000 ng/mL Cocaine: 300 ng/mL Cannabinoid: 50 ng/mL Opiate: 300 ng/mL Phencyclidine (PCP): 25 ng/mL Benzodiazepine: 200 ng/mL Barbiturate: 200 ng/mL Methadone: 300 ng/mL Tricyclic: 300 ng/mL The urine drug screen assays are qualitative screens. A more specific GC/MS method must be performed to obtain a confirmed analytical result. Unconfirmed screening results must not be used for non-medical purposes(e.g. employment or legal testing) Immunizations No data available for this section Procedures No data available for this section Social History Social History Type Response Smoking Status Former smoker Assessment and Plan No data available for this section
--- OUTSIDE RECORDS SUMMARY | 2018-02-13 11:32 | XMS REPORT | Referral Summary ---
Author Author [facility] Organization [facility] Address Unknown Phone Unavailable Care Team Providers Care Inspector [employer]ated [employer] Name Role Phone Leonardo Rodriguez PCP Encounter [facility] Date(s): 05/20/17 - 05/20/17 [facility] [address], [place] [address] Discharge Diagnosis: Musculoskeletal back pain Discharge Diagnosis: Accidental fall Discharge Disposition: 01-Home or Self Care Attending Physician: Ismael Munoz DO Admitting Physician: Ismael Munoz DO Vital Signs Most recent to 1 oldest [Reference Range]: Temperature Temporal 36.8 degC Artery [36.3-37.8 (05/20/17 12:25 PM) degC] Peripheral Pulse 119 bpm Rate [60-100 bpm] *HI* (05/20/17 12:25 PM) Respiratory Rate 12 br/min [14-20 br/min] *LOW* (05/20/17 12:25 PM) Blood Pressure 120/86 mmHg [90-140/60-90 mmHg] (05/20/17 12:25 PM) SpO2 97 % (05/20/17 12:25 PM) Problem List Condition Effective Dates Status Health Status Informant Anxiety(Confirmed) Active patient Depression(Confirmed Active patient ) Fibromyalgia(Confirm Active patient ed) Chronic Active patient tachycardia(Confirme d) Allergies, Adverse Reactions, Alerts Substance Reaction Severity Status Ultram1 Severe Active 1siezure Medications carvedilol 3.125 mg, Oral, BID, 0 Refill(s) Start Date: 01/23/17 Status: Ordered cyclobenzaprine 10 mg oral tablet 10 mg 1 tabs, Oral, TID, as needed for spasm, X 5 days, # 15 tabs, 0 Refill(s) Start Date: 05/20/17 Stop Date: 05/25/17 Status: Ordered etodolac 500 mg, Oral, Daily, knee pain, 0 Refill(s) Start Date: 01/23/17 Status: Ordered Lyrica 300 mg, Oral, BID, 0 Refill(s) Start Date: 01/23/17 Status: Ordered Naprosyn 500 mg oral tablet 500 mg 1 tabs, Oral, BID, X 7 days, # 14 tabs, 0 Refill(s) Start Date: 05/20/17 Stop Date: 05/27/17 Status: Ordered Trintellix 5 mg, Oral, Daily, 0 Refill(s) Start Date: 01/23/17 Status: Ordered Results Chemistry Most recent to 1 oldest [Reference Range]: Screen, Negative Urine NPT (05/20/17 2:39 PM) Immunizations No data available for this section Procedures No data available for this section Social History Social History Type Response Smoking Status 4 or less cigarettes(less than 1/4 pack)/day in last 30 days ; Type: Cigarettes; Tobacco use per day: Less than 1/4 pack entered on: 05/20/17 Assessment and Plan No data available for this section
--- OUTSIDE RECORDS SUMMARY | 2018-02-13 11:32 | XMS REPORT ---
Author Author Elijah Pedro [facility] Address [address] [place], [place] [id number] Care Team Providers Care Kettle Coordinator Name Role Phone Elijah Pedro Unavailable PROBLEMS Type Condition ICD9-CM Code [id number] Code Onset Dates Condition Status SNOMED Code Problem Other chronic pain G89.29 Active 38506855 Problem Other specified conditions associated with female genital organs and menstrual cycle N94.89 Active 821091494 Problem Dysmenorrhea N94.6 Active 752888411 Problem PSVT (paroxysmal supraventricular tachycardia) I47.1 Active 40753744 Problem Psychophysiological insomnia F51.04 Active 586468953 Problem Depression with anxiety F41.8 Active 427853517 Problem Fibromyalgia M79.7 Active 398218448 ALLERGIES No Information SOCIAL HISTORY Never Assessed PLAN OF CARE VITAL SIGNS MEDICATIONS Unknown Medications RESULTS No Results PROCEDURES No Known procedures IMMUNIZATIONS No Known Immunizations MEDICAL (GENERAL) HISTORY Type Description Date Medical History fibromialgia 2016 Medical History arthritis 2016 Medical History lupus 2014 Medical History depression 2014 Medical History insomnia Medical History tachycardia has done a stress test ekg in the past
--- OUTSIDE RECORDS SUMMARY | 2018-02-13 11:32 | XMS REPORT ---
Author Author Elijah Pedro [facility] Address [address] [place], [place] [id number] Care Team Providers Care Sorter Packer Name Role Phone Elijah Pedro Unavailable PROBLEMS Type Condition ICD9-CM Code [id number] Code Onset Dates Condition Status SNOMED Code Problem Other chronic pain G89.29 Active 74129645 Problem Other specified conditions associated with female genital organs and menstrual cycle N94.89 Active 971070296 Problem Dysmenorrhea N94.6 Active 003237156 Problem PSVT (paroxysmal supraventricular tachycardia) I47.1 Active 48698177 Problem Psychophysiological insomnia F51.04 Active 963180575 Problem Depression with anxiety F41.8 Active 637201693 Problem Fibromyalgia M79.7 Active 433069764 ALLERGIES Unknown Allergies SOCIAL HISTORY No smoking Hx information available PLAN OF CARE VITAL SIGNS MEDICATIONS Unknown Medications RESULTS No Results PROCEDURES No Known procedures IMMUNIZATIONS No Known Immunizations
--- OUTSIDE RECORDS SUMMARY | 2018-02-13 11:32 | XMS REPORT | Referral Summary ---
[facility] Address Unknown Phone Unavailable Encounter [facility] [id number] Date(s): 04/19/15 - 04/19/15 [facility] [address] [place] [address] [facility] Discharge Disposition: 01-Home or Self Care Attending Physician: Provider, Immediate Care Attending Physician: Madi Alfred MD Admitting Physician: Provider, Immediate Care Vital Signs Most recent to 1 oldest [Reference Range]: Temperature Oral 36.7 degC [35.8-37.3 degC] (04/19/15 1:27 PM) Peripheral Pulse 109 bpm Rate [60-100 bpm] *HI* (04/19/15 1:27 PM) Blood Pressure 120/85 mmHg [90-140/60-90 mmHg] (04/19/15 1:27 PM) SpO2 98 % (04/19/15 1:27 PM) Problem List No data available for this section Allergies, Adverse Reactions, Alerts No Known Allergies Medications Cymbalta Oral, 0 Refill(s) Start Date: 04/19/15 Status: Ordered gabapentin Oral, 0 Refill(s) Start Date: 04/19/15 Status: Ordered methocarbamol 500 mg oral tablet 1,000 mg 2 tabs, Oral, TID, X 6 days, # 36 tabs, 0 Refill(s), Pharmacy: [facility] #[id number], 2 tabs Oral TID,x6 days Start Date: 04/19/15 Stop Date: 04/25/15 Status: Ordered [place]bor 5 mg-325 mg oral tablet 1 tabs, Oral, TID, as needed for pain, X 4 days, # 12 tabs, 0 Refill(s), other reason (Rx) Start Date: 04/19/15 Stop Date: 04/23/15 Status: Ordered oxyCODONE 5 mg oral tablet mg tabs, Oral, q6hr, 0 Refill(s) Start Date: 04/19/15 Status: Ordered Results No data available for this section Immunizations No data available for this section Procedures No data available for this section Social History Social History Type Response Smoking Status Never smoker Assessment and Plan Extracted from: Title: Office Visit Note Author: Madi Alfred MD Date: 04/19/15 Assessment/Plan Lumbar strain rx of muscle relaxant and norco tid as needed for acute pain. Recommend to f/u with her PCP in few weeks if sx not resolving. Orders: HYDROcodone-acetaminophen, 1 tabs, Oral, TID, as needed for pain, X 4 days, # 12 tabs, 0 Refill(s), other reason (Rx) methocarbamol, 1,000 mg 2 tabs, Oral, TID, X 6 days, # 36 tabs, 0 Refill(s), Pharmacy: [facility] #[id number], 2 tabs Oral TID,x6 days
--- OUTSIDE RECORDS SUMMARY | 2018-02-13 11:32 | XMS REPORT | Referral Summary ---
Author Author [facility] Organization [facility] Address Unknown Phone Unavailable Care Team Providers Care Water Treatment Plant Mechanic Name Role Phone Oral Nova PCP Encounter [facility] [id number] Date(s): 10/19/15 - 10/19/[address] [facility] [address] [place], [place] [address] Discharge Disposition: 01-Home or Self Care Attending Physician: Oral Nova MD Vital Signs No data available for this section Problem List No data available for this [...] # 7 patches, 0 Refill( s), Pharmacy: [facility] #[id number] Start Date: 07/02/15 Stop Date: 07/09/15 Status: Ordered lidocaine 5% topical film 1 patches, Topical, Daily, remove patches after 12 hours, # 7 patches, 0 Refill( s), Pharmacy: [facility] #[id number] Start Date: 07/02/15 Stop Date: 07/09/15 Status: [...]
--- OUTSIDE RECORDS SUMMARY | 2018-02-13 11:33 | XMS REPORT ---
Author Author Elijah Pedro [facility] Address [address] [place], [place] [address] Care Team Providers Care Scroll Assembler Name Role Phone Elijah Pedro Unavailable PROBLEMS Type Condition ICD9-CM Code MAN16-RS Code Onset Dates Condition Status SNOMED Code Problem Other chronic pain G89.29 Active 29161921 Problem Other specified conditions associated with female genital organs and menstrual cycle N94.89 Active 938193603 Problem Dysmenorrhea N94.6 Active 641678195 Problem PSVT (paroxysmal supraventricular tachycardia) I47.1 Active 00949548 Problem Psychophysiological insomnia F51.04 Active 599657474 Problem Depression with anxiety F41.8 Active 287790152 Problem Fibromyalgia M79.7 Active 941875718 ALLERGIES Substance Reaction Event Type Date Status N.K.D.A. Unknown Non Drug Allergy Sep, Unknown SOCIAL HISTORY Qualifiers Date PLAN OF CARE Activity Details Follow Up prn Reason:null VITAL SIGNS Weight 142 lbs 2016-10-09 Height 67 in 2016-10-09 BMI 22.24 kg/m2 2016-10-09 Temperature 98.3 degrees Fahrenheit 2016-10-09 Respiratory Rate 16 /min 2016-10-09 Heart Rate 102 /min 2016-10-09 Blood pressure systolic 100 mm Hg 2016-10-09 Blood pressure diastolic 68 mm Hg 2016-10-09 MEDICATIONS Medication Instructions Dosage Frequency Start Date End Date Duration Status Coreg 3.125 mg orally 2 times a day 1 tab(s) 12h 90 days Active Ambien 5 mg orally once a day (at bedtime) 1 tab(s) Active etodolac 500 mg orally 2 times a day 1 tab(s) 12h 90 days Active DULoxetine Hydrochloride 60 mg orally once a day 1 cap(s) 24h Jul, 30 day(s) Active Lyrica 150 mg orally 3 times a day 1 cap(s) 8h Sep, 30 days Active RESULTS No Results PROCEDURES Procedure Date Ordered Related Diagnosis Body Site Office Est Level 3 October 09, 2016 IMMUNIZATIONS No Known Immunizations
--- OUTSIDE RECORDS SUMMARY | 2018-02-13 11:33 | XMS REPORT ---
Author Author Elijah Pedro [facility] Address [address] [place], [place] [address] Care Team Providers Care Tobacco Grower Name Role Phone Elijah Pedro Unavailable PROBLEMS Type Condition ICD9-CM Code [id number] Code Onset Dates Condition Status SNOMED Code Problem Other chronic pain G89.29 Active 34785330 Problem Other specified conditions associated with female genital organs and menstrual cycle N94.89 Active 425230420 Problem Dysmenorrhea N94.6 Active 824162565 Problem PSVT (paroxysmal supraventricular tachycardia) I47.1 Active 12291182 Problem Psychophysiological insomnia F51.04 Active 905983849 Problem Depression with anxiety F41.8 Active 236096582 Problem Fibromyalgia M79.7 Active 419817820 ALLERGIES Substance Reaction Event Type Date Status N.K.D.A. Unknown Non Drug Allergy Sep, Unknown SOCIAL HISTORY No smoking Hx information available PLAN OF CARE Activity Details Follow Up prn Reason:null VITAL SIGNS Weight 134 lbs 2016-09-27 Height 67 in 2016-09-27 BMI 20.99 kg/m2 2016-09-27 Temperature 98.1 degrees Fahrenheit 2016-09-27 Respiratory Rate 16 /min 2016-09-27 Heart Rate 101 /min 2016-09-27 Blood pressure systolic 121 mm Hg 2016-09-27 Blood pressure diastolic 85 mm Hg 2016-09-27 MEDICATIONS Medication Instructions Dosage Frequency Start Date End Date Duration Status DULoxetine Hydrochloride 60 mg orally once a day 1 cap(s) 24h Jul, 30 day(s) Active Lyrica 150 mg orally 3 times a day 1 cap(s) 8h 30 days Active etodolac 500 mg orally 2 times a day 1 tab(s) 12h Active Coreg 3.125 mg orally 2 times a day 1 tab(s) 12h 90 days Active Ambien 5 mg orally once a day (at bedtime) 1 tab(s) 30 days Active RESULTS No Results PROCEDURES Procedure Date Ordered Related Diagnosis Body Site TORADOL 60MG 2016-09-27 N/A Toradol per 15 mg September 27, 2016 Injection of Medicine September 27, 2016 Office Est Level 3 September 27, 2016 IMMUNIZATIONS No Known Immunizations
--- OUTSIDE RECORDS SUMMARY | 2018-02-13 11:33 | XMS REPORT ---
Author Author Elijah Pedro [facility] Address [address] [place], [place] [address] Care Team Providers Care Lieutenant Colonel Name Role Phone Elijah Pedro Unavailable PROBLEMS Type Condition ICD9-CM Code [id number] Code Onset Dates Condition Status SNOMED Code Problem Other chronic pain G89.29 Active 45225341 Problem Other specified conditions associated with female genital organs and menstrual cycle N94.89 Active 746632476 Problem Dysmenorrhea N94.6 Active 266066127 Problem PSVT (paroxysmal supraventricular tachycardia) I47.1 Active 26741301 Problem Psychophysiological insomnia F51.04 Active 058729301 Problem Depression with anxiety F41.8 Active 165388861 Problem Fibromyalgia M79.7 Active 860178969 ALLERGIES Unknown Allergies SOCIAL HISTORY No smoking Hx information available PLAN OF CARE VITAL SIGNS MEDICATIONS Unknown Medications RESULTS No Results PROCEDURES No Known procedures IMMUNIZATIONS No Known Immunizations
--- OUTSIDE RECORDS SUMMARY | 2018-02-13 11:33 | XMS REPORT ---
Author Author Elijah Pedro [facility] Address [address] [place], [place] [address] Care Team Providers Care Medical Physics Professor Name Role Phone Elijah Pedro Unavailable PROBLEMS Type Condition ICD9-CM Code [id number] Code Onset Dates Condition Status SNOMED Code Problem Other chronic pain G89.29 Active 76889048 Problem Other specified conditions associated with female genital organs and menstrual cycle N94.89 Active 036918074 Problem Dysmenorrhea N94.6 Active 207460328 Problem PSVT (paroxysmal supraventricular tachycardia) I47.1 Active 60787694 Problem Psychophysiological insomnia F51.04 Active 323799307 Problem Depression with anxiety F41.8 Active 492273758 Problem Fibromyalgia M79.7 Active 024811024 ALLERGIES Unknown Allergies SOCIAL HISTORY No smoking Hx information available PLAN OF CARE VITAL SIGNS MEDICATIONS Unknown Medications RESULTS No Results PROCEDURES No Known procedures IMMUNIZATIONS No Known Immunizations
--- OUTSIDE RECORDS SUMMARY | 2018-02-13 11:36 | XMS REPORT | Continuity of Care Document ---
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 <td>NEGATIVE</td> </tr> <tr> < colspan="10">URINALYSIS, ROUTINE - 07/14/15 22 :19</th> </tr> <tr> <td>UA LEUKOCYTE ESTERASE DIPSTICK</ td> <td>TRACE </td> <td>NEGATIVE</td> </tr> <tr > <td>UA NITRITE DIPSTICK</td> <td>NEGATIVE </td> <td >NEGATIVE</td> </tr> <tr> <td>UA PROTEIN DIPSTICK</td> <td>TRACE </td> <td>NEGATIVE</td> </tr> <tr> <td>UA GLUCOSE DIPSTICK</td> <td>NEGATIVE </td> <td> NEGATIVE</td> </tr> <tr> <td>UA KETONE DIPSTICK</td> <td>NEGATIVE </td> <td>NEGATIVE</td> </tr> <tr> <td>UA UROBILINOGEN DIPSTICK</td> <td>NORMAL </td> <td> NORMAL</td> </tr> <tr> <td>UA BILIRUBIN DIPSTICK</td> <td>2+ </td> <td>NEGATIVE</td> </tr> <tr> <td>UA BLOOD DIPSTICK</td> <td>4+ </td> <td>NEGATIVE</td> </tr> <tr> <td>UA SPECIFIC GRAVITY</td> <td> 1.025 </td> <td>1.015-1.025</td> </tr> <tr> <td> UR PH</td> <td>6.0 </td> <td>5.0-7.0</td> </tr> <tr> <th colspan="10">UA MICROSCOPIC - 07/14/15 22:19</th> </tr > <tr> <td>UA BACTERIA</td> <td>1+ </td> <td> NEGATIVE</td> </tr> <tr> <td>UA EPITHELIAL CELLS</td> <td>1+ epi/hpf</td> <td>0 - 1+</td> </tr> <tr> <td>UA MUCUS</td> <td>1+ </td> <td>NEG TO 1+</td> </tr> <tr> <td>UA RBC</td> <td>20-50 rbc/hpf</td> <td>0 - 3</td> </tr> <tr> <td>UA VOLUME FOR EXAM< /td> <td>12.0 mL</td> <td>(12mL STD)</td> </tr> <tr> <td>UA WBC</td> <td>2-5 wbc/hpf</td> <td>0 - 5</ td> </tr> <tr> < colspan="10">UR TEST - 07/31 22:10</th> </tr> <tr> <td>UR TEST</td> <td>NEGATIVE </td> <td>NEGATIVE</td> </tr> <tr> < colspan="10">URINALYSIS, ROUTINE - 08/01/15 22:10</th> </tr> <tr> <td>UA LEUKOCYTE ESTERASE DIPSTICK</td> <td>TRACE </td> <td>NEGATIVE</td> </tr> <tr> <td>UA NITRITE DIPSTICK</td> <td>NEGATIVE </td> <td>NEGATIVE</td> </tr> <tr> <td>UA PROTEIN DIPSTICK</td> <td>TRACE </td> <td>NEGATIVE</td> </tr> <tr> <td>UA GLUCOSE DIPSTICK</td> <td>NEGATIVE </td> <td>NEGATIVE</td> </tr> <tr> <td>UA KETONE DIPSTICK</td> <td> NEGATIVE </td> <td>NEGATIVE</td> </tr> <tr> <td> UA UROBILINOGEN DIPSTICK</td> <td>NORMAL </td> <td>NORMAL</td > </tr> <tr> <td>UA BILIRUBIN DIPSTICK</td> <td> 3+ </td> <td>NEGATIVE</td> </tr> <tr> <td>UA BLOOD DIPSTICK</td> <td>NEGATIVE </td> <td>NEGATIVE</td> </tr> <tr> <td>UA SPECIFIC GRAVITY</td> <td>1.015 </ td> <td>1.015-1.025</td> </tr> <tr> <td>UR PH</ td> <td>6.5 </td> <td>5.0-7.0</td> </tr> <tr> <th colspan="10">UA MICROSCOPIC - 08/01/15 22:10</th> </tr> <tr> <td>UA BACTERIA</td> <td>2+ </td> <td> NEGATIVE</td> </tr> <tr> <td>UA EPITHELIAL CELLS</td> <td>2+ epi/hpf</td> <td>0 - 1+</td> </tr> <tr> <td>UA MUCUS</td> <td>2+ </td> <td>NEG TO 1+</td> </tr> <tr> <td>UA RBC</td> <td>0-3 rbc/hpf</td> <td>0 - 3</td> </tr> <tr> <td>UA VOLUME FOR EXAM</ td> <td>12.0 mL</td> <td>(12mL STD)</td> </tr> < tr> <td>UA WBC</td> <td>2-5 wbc/hpf</td> <td>0 - 5</ td> </tr> <tr> <th colspan="10">D-DIMER QUANT - 12/22/15 17:15</th> </tr> <tr> <td>D-DIMER QUANT</td> <td >< 150 ng/mL</td> <td>0-229</td> </tr> <tr> < th colspan="10">CBC W/DIFF - 04/04/16 12:38</th> </tr> <tr> <td>EOSINOPHIL #</td> <td>0.1 k/cumm</td> <td>0.1-0.5</td > </tr> <tr> <td>EOSINOPHIL %</td> <td>1 &# 37;</td> <td>2-4</td> </tr> <tr> <td> GRANULOCYTE #</td> <td>4.8 k/cumm</td> <td>2.0-9.0</td> </tr> <tr> <td>GRANULOCYTE %</td> <td>62 %</ td> <td>50-75</td> </tr> <tr> <td>LYMPHOCYTE #</ td> <td>2.4 k/cumm</td> <td>1.0-4.0</td> </tr> < tr> <td>LYMPHOCYTE %</td> <td>31 %</td> <td> 20-30</td> </tr> <tr> <td>MEAN CELL HGB</td> <td >34.5 pg</td> <td>27.0-33.0</td> </tr> <tr> <td> MEAN CELL HGB CONCENTRATION</td> <td>33.1 g/dL</td> <td>32.0- 37.0</td> </tr> <tr> <td>MEAN CELL VOLUME</td> < td>104.2 fl</td> <td>80.0-100.0</td> </tr> <tr> <td>MONOCYTE #</td> <td>0.5 k/cumm</td> <td>0.1-1.0</td> </tr> <tr> <td>MONOCYTE %</td> <td>6 %</td> <td>4-6</td> </tr> <tr> <td>RED BLOOD CELL</td > <td>3.83 m/cumm</td> <td>4.00-6.00</td> </tr> <tr> <td>RED CELL DISTRIBUTION WIDTH</td> <td>12.1 %</td> <td>11.0-15.6</td> </tr> <tr> <td>WHITE BLOOD CELL</td> <td>7.8 k/cumm</td> <td>5.0-10.0</td> </tr> <tr> <td>HEMOGLOBIN</td> <td>13.2 gm/dL</td> < td>12.0-16.0</td> </tr> <tr> <td>HEMATOCRIT</td> <td>39.9 %</td> <td>37.0-47.0</td> </tr> <tr> <td>PLATELET COUNT</td> <td>309 k/cumm</td> <td>150-450</ td> </tr> <tr> <th colspan="10">URINALYSIS, ROUTINE - 12:38</th> </tr> <tr> <td>UA LEUKOCYTE ESTERASE DIPSTICK</td> <td>TRACE </td> <td>NEGATIVE</td> </tr> <tr> <td>UA NITRITE DIPSTICK</td> <td>NEGATIVE </td> <td>NEGATIVE</td> </tr> <tr> <td>UA PROTEIN DIPSTICK</td> <td>1+ </td> <td>NEGATIVE</td> </tr> <tr> <td>UA GLUCOSE DIPSTICK</td> <td>NEGATIVE </td> <td>NEGATIVE</td> </tr> <tr> <td>UA KETONE DIPSTICK< /td> <td>NEGATIVE </td> <td>NEGATIVE</td> </tr> <tr> <td>UA UROBILINOGEN DIPSTICK</td> <td>NORMAL </td> <td>NORMAL</td> </tr> <tr> <td>UA BILIRUBIN DIPSTICK< /td> <td>NEGATIVE </td> <td>NEGATIVE</td> </tr> <tr> <td>UA BLOOD DIPSTICK</td> <td>NEGATIVE </td> < td>NEGATIVE</td> </tr> <tr> <td>UA SPECIFIC GRAVITY</td> <td>1.025 </td> <td>1.015-1.025</td> </tr> <tr > <td>UR PH</td> <td>5.0 </td> <td>5.0-7.0</td> </tr> <tr> < colspan="10">UA MICROSCOPIC - 04/04/16 12:38</ th> </tr> <tr> <td>UA BACTERIA</td> <td>1+ </td > <td>NEGATIVE</td> </tr> <tr> <td>UA EPITHELIAL CELLS</td> <td>2+ epi/hpf</td> <td>0 - 1+</td> </tr> <tr> <td>UA MUCUS</td> <td>3+ </td> <td>NEG TO 1+</td> </tr> <tr> <td>UA VOLUME FOR EXAM</td > <td>12.0 mL</td> <td>(12mL STD)</td> </tr> <tr > <td>UA WBC</td> <td>0-1 wbc/hpf</td> <td>0 - 5</td > </tr> <tr> <th colspan="10">UR TEST - 12:38</th> </tr> <tr> <td>UR TEST</td> <td>NEGATIVE </td> <td>NEGATIVE</td> </tr> <tr> <th colspan="10">METABOLIC PANEL, COMPREHN - 04/04/16 12:38</th> </ tr> <tr> <td>POTASSIUM</td> <td>3.5 mmol/L</td> <td>3.5-5.3</td> </tr> <tr> <td>EST GFR (MDRD)</td> <td>> 60 mL/min</td> <td>> 59</td> </tr> < tr> <td>ANION GAP</td> <td>9 mmol/L</td> <td>5-15</td > </tr> <tr> <td>EST CrCl (CG)</td> <td>> 60 mL/min</td> <td>> 59</td> </tr> <tr> <td> GLUCOSE</td> <td>79 mg/dL</td> <td>70-99</td> </tr> <tr> <td>CALCIUM</td> <td>9.2 mg/dL</td> <td>8.5 -10.1</td> </tr> <tr> <td>BLOOD UREA NITROGEN</td> <td>14 mg/dL</td> <td>7-20</td> </tr> <tr> < td>CREATININE</td> <td>0.7 mg/dL</td> <td>0.6-1.0</td> </tr> <tr> <td>SODIUM</td> <td>141 mmol/L</td> <td>135-148</td> </tr> <tr> <td>CHLORIDE</td> <td>103 mmol/L</td> <td>98-110</td> </tr> <tr> < td>AST/SGOT</td> <td>12 Units/L</td> <td>10-37</td> </ tr> <tr> <td>ALT/SGPT</td> <td>16 Units/L</td> <td>< 66</td> </tr> <tr> <td>CARBON DIOXIDE</td> <td>29 mmol/L</td> <td>21-32</td> </tr> <tr> <td>TOTAL PROTEIN</td> <td>8.2 gm/dL</td> <td>6.4-8.2</td > </tr> <tr> <td>ALBUMIN</td> <td>4.6 gm/dL</td > <td>3.4-5.0</td> </tr> <tr> <td>BILI TOTAL</td > <td>0.3 mg/dL</td> <td>0.0-1.0</td> </tr> <tr > <td>ALKALINE PHOSPHATASE TOTAL</td> <td>55 IU/L</td> <td>45-117</td> </tr> <tr> <th colspan="10">LIPASE - 04/04/16 12:38</th> </tr> <tr> <td>LIPASE</td> < td>117 Units/L</td> <td>73-393</td> </tr> <tr> < th colspan="10">CBC With Platelet and Differential - 07/03/16 14:35</th> </tr> <tr> <td>Absolute Basophils</td> <td>0.01 10*3/uL </td> <td>0.00-0.20</td> </tr> <tr> <td> Absolute Eosinophils</td> <td>0.03 10*3/uL</td> <td>0.00-0.50< /td> </tr> <tr> <td>Absolute Lymphocytes</td> < td>2.39 10*3/uL</td> <td>0.80-3.30</td> </tr> <tr> <td>Absolute Monocytes</td> <td>0.49 10*3/uL</td> <td>0.30 -1.00</td> </tr> <tr> <td>Absolute Neutrophils</td> <td>5.31 10*3/uL</td> <td>1.90-7.00</td> </tr> <tr> <td>Basophils</td> <td>0 %</td> <td>0-2</td> </tr> <tr> <td>Eosinophils</td> <td>0 %</td> <td>0-4</td> </tr> <tr> <td>HCT</td> < td>44.1 %</td> <td>37.0-47.0</td> </tr> <tr> <td>HGB</td> <td>14.7 g/dL</td> <td>12.0-16.0</td> </ tr> <tr> <td>Immature Granulocytes</td> <td>0.4 %</ td> <td>0.0-1.0</td> </tr> <tr> <td>Lymphocytes< /td> <td>29 %</td> <td>20-46</td> </tr> <tr > <td>MCH</td> <td>34.2 pg</td> <td>27.0-32.0</td> </tr> <tr> <td>MCHC</td> <td>33.3 g/dL</td> <td>32.0-36.0</td> </tr> <tr> <td>MCV</td> <td>102.6 fL</td> <td>82.0-99.0</td> </tr> <tr> <td>Monocytes</td> <td>6 %</td> <td>4-11</td> </tr > <tr> <td>MPV</td> <td>9.2 fL</td> <td>9.4- 12.4</td> </tr> <tr> <td>Neutrophils</td> <td> 64 %</td> <td>51-75</td> </tr> <tr> <td> Nucleated RBC Automated</td> <td>0.0 /100 WBC</td> <td /> </tr> <tr> <td>Platelet Count</td> <td>290 K/uL</td > <td>150-400</td> </tr> <tr> <td>RBC</td> <td>4.30 10*6/uL</td> <td>4.00-5.20</td> </tr> <tr> <td>RDW</td> <td>12.7 %</td> <td>11.5-14.5</td> </tr> <tr> <td>WBC</td> <td>8.3 K/uL</td> <td>4.8-10.8</td> </tr> <tr> <th colspan="10"> Comprehensive Metabolic Panel (CMP) - 07/03/16 14:35</th> </tr> < tr> <td>Albumin</td> <td>4.9 g/dL</td> <td>3.5-4.8</ td> </tr> <tr> <td>Alkaline Phosphatase</td> <td >59 U/L</td> <td>26-104</td> </tr> <tr> <td>ALT (SGPT)</td> <td>12 U/L</td> <td>14-54</td> </tr> <tr> <td>Anion Gap</td> <td>10 NA</td> <td>3-20</td > </tr> <tr> <td>AST (SGOT)</td> <td>17 U/L</td > <td>15-41</td> </tr> <tr> <td>Bilirubin Total< /td> <td>0.4 mg/dL</td> <td>0.2-1.2</td> </tr> < tr> <td>BUN</td> <td>7 mg/dL</td> <td>4-20</td> </tr> <tr> <td>Calcium</td> <td>9.5 mg/dL</td> <td>8.6-10.0</td> </tr> <tr> <td>Chloride</td> <td>102 mEq/L</td> <td>99-109</td> </tr> <tr> <td>CO2</td> <td>24 mEq/L</td> <td>22-32</td> </tr > <tr> <td>Creatinine</td> <td>0.61 mg/dL</td> <td>0.44-1.03</td> </tr> <tr> <td>Globulin</td> <td>2.9 g/dL</td> <td>1.9-4.3</td> </tr> <tr> <td>Glucose</td> <td>114 mg/dL</td> <td>70-100</td> < /tr> <tr> <td>Potassium</td> <td>3.6 mEq/L</td> <td>3.6-5.1</td> </tr> <tr> <td>Protein</td> <td>7.8 g/dL</td> <td>6.1-7.9</td> </tr> <tr> < td>Sodium</td> <td>136 mEq/L</td> <td>136-144</td> </tr > <tr> <th colspan="10">eGFR - 07/03/16 14:35</th> </tr> <tr> <td>eGFR</td> <td>>60 NA</td> <td>&gt ;60</td> </tr> <tr> <th colspan="10">Troponin - 07/03/16 14:35</th> </tr> <tr> <td>Troponin</td> <td>< 0.05 ng/mL</td> <td><0.06</td> </tr> <tr> < th colspan="10">TSH with Reflex Free T4 - 07/03/16 14:35</th> </tr> <tr> <td>TSH with Reflex Free T4</td> <td>1.50 uIU/mL</td> <td>0.35-5.50</td> </tr> <tr> <th colspan="10"> Screen, Urine NPT - 07/03/16 14:58</th> </tr> <tr> <td> Screen, Urine NPT</td> <td>Negative NA</td> <td /> </tr> <tr> <th colspan="10">CBC W/DIFF - 20:13</th> </tr> <tr> <td>EOSINOPHIL #</td> < td>0.1 k/cumm</td> <td>0.1-0.5</td> </tr> <tr> < td>EOSINOPHIL %</td> <td>1 %</td> <td>2-4</td> </tr> <tr> <td>GRANULOCYTE #</td> <td>3.5 k/cumm</td> <td>2.0-9.0</td> </tr> <tr> <td>GRANULOCYTE &#37 ;</td> <td>47 %</td> <td>50-75</td> </tr> < tr> <td>LYMPHOCYTE #</td> <td>3.1 k/cumm</td> <td>1.0 -4.0</td> </tr> <tr> <td>LYMPHOCYTE %</td> < td>42 %</td> <td>20-30</td> </tr> <tr> <td> MEAN CELL HGB</td> <td>33.8 pg</td> <td>27.0-33.0</td> </tr> <tr> <td>MEAN CELL HGB CONCENTRATION</td> <td> 32.8 g/dL</td> <td>32.0-37.0</td> </tr> <tr> <td >MEAN CELL VOLUME</td> <td>103.0 fl</td> <td>80.0-100.0</td> </tr> <tr> <td>MONOCYTE #</td> <td>0.7 k/cumm</ td> <td>0.1-1.0</td> </tr> <tr> <td>MONOCYTE &# 37;</td> <td>10 %</td> <td>4-6</td> </tr> < tr> <td>RED BLOOD CELL</td> <td>3.61 m/cumm</td> <td> 4.00-6.00</td> </tr> <tr> <td>RED CELL DISTRIBUTION WIDTH </td> <td>11.9 %</td> <td>11.0-15.6</td> </tr> <tr> <td>WHITE BLOOD CELL</td> <td>7.5 k/cumm</td> <td>5.0-10.0</td> </tr> <tr> <td>HEMOGLOBIN</td> <td>12.2 gm/dL</td> <td>12.0-16.0</td> </tr> <tr> <td>HEMATOCRIT</td> <td>37.2 %</td> <td>37.0-47.0< /td> </tr> <tr> <td>PLATELET COUNT</td> <td>299 k/cumm</td> <td>150-450</td> </tr> <tr> <th colspan="10">CHEM/HEM PROFILE-BEDSIDE - 09/27/16 20:20</th> </tr> <tr> <td>POTASSIUM</td> <td>3.8 mmol/L</td> <td>3.5- 5.3</td> </tr> <tr> <td>METHOD</td> <td>Bedside </td> <td /> </tr> <tr> <td>ANION GAP</td> <td>19 mmol/L</td> <td>10-20</td> </tr> <tr> <td>METHOD</td> <td>Bedside </td> <td /> </tr> <tr> <td>GLUCOSE</td> <td>110 mg/dL</td> <td>70-99 </td> </tr> <tr> <td>BLOOD UREA NITROGEN</td> < td>14 mg/dL</td> <td>7-20</td> </tr> <tr> <td> CREATININE</td> <td>0.7 mg/dL</td> <td>0.6-1.0</td> </ tr> <tr> <td>HEMOGLOBIN</td> <td>12.6 gm/dL</td> <td>12.0-16.0</td> </tr> <tr> <td>HEMATOCRIT</td> <td>37.0 %</td> <td>37.0-47.0</td> </tr> <tr> <td>SODIUM</td> <td>143 mmol/L</td> <td>135-148</td > </tr> <tr> <td>CHLORIDE</td> <td>104 mmol/L</ td> <td>98-110</td> </tr> <tr> <td>CARBON DIOXIDE</td> <td>25 mmol/L</td> <td>21-32</td> </tr> <tr> <td>CALCIUM IONIZED</td> <td>4.8 mg/dL</td> <td>4.5-5.3</td> </tr> <tr> < colspan="10">UR TEST - 09/27/16 20:30</th> </tr> <tr> <td>UR TEST</td> <td>NEGATIVE </td> <td>NEGATIVE</td> </tr> <tr> < colspan="10">URINALYSIS, ROUTINE - 09/27/16 20 :30</th> </tr> <tr> <td>UA LEUKOCYTE ESTERASE DIPSTICK</ td> <td>1+ </td> <td>NEGATIVE</td> </tr> <tr> <td>UA NITRITE DIPSTICK</td> <td>NEGATIVE </td> <td> NEGATIVE</td> </tr> <tr> <td>UA PROTEIN DIPSTICK</td> <td>TRACE </td> <td>NEGATIVE</td> </tr> <tr> <td>UA GLUCOSE DIPSTICK</td> <td>NEGATIVE </td> <td> NEGATIVE</td> </tr> <tr> <td>UA KETONE DIPSTICK</td> <td>NEGATIVE </td> <td>NEGATIVE</td> </tr> <tr> <td>UA UROBILINOGEN DIPSTICK</td> <td>NORMAL </td> <td> NORMAL</td> </tr> <tr> <td>UA BILIRUBIN DIPSTICK</td> <td>NEGATIVE </td> <td>NEGATIVE</td> </tr> <tr> <td>UA BLOOD DIPSTICK</td> <td>4+ </td> <td>NEGATIVE</ td> </tr> <tr> <td>UA SPECIFIC GRAVITY</td> <td> 1.015 </td> <td>1.015-1.025</td> </tr> <tr> <td> UR PH</td> <td>8.0 </td> <td>5.0-7.0</td> </tr> <tr> < colspan="10">UA MICROSCOPIC - 09/27/16 20:30</th> </tr > <tr> <td>UA AMORPHOUS SEDIMENT</td> <td>4+ </td> <td /> </tr> <tr> <td>UA BACTERIA</td> <td >2+ </td> <td>NEGATIVE</td> </tr> <tr> <td>UA EPITHELIAL CELLS</td> <td>1+ epi/hpf</td> <td>0 - 1+</td> </tr> <tr> <td>UA MUCUS</td> <td>2+ </td> <td>NEG TO 1+</td> </tr> <tr> <td>UA RBC</td> < td>0-3 rbc/hpf</td> <td>0 - 3</td> </tr> <tr> < td>UA VOLUME FOR EXAM</td> <td>12.0 mL</td> <td>(12mL STD)</td > </tr> <tr> <td>UA WBC</td> <td>5-10 wbc/hpf</ td> <td>0 - 5</td> </tr> <tr> <th colspan="10"> UR DRUGS OF ABUSE SCREEN - 12/16/16 14:37</th> </tr> <tr> <td>UR AMPHETAMINES SCREEN</td> <td>NEG (<1000 ng/mL) </td> <td>NEGATIVE</td> </tr> <tr> <td>UR BARBITURATE SCREEN</td> <td>NEG (< 200 ng/mL) </td> <td>NEGATIVE</td> </tr> <tr> <td>DRUGS OF ABUSE SCREEN COMMENT</td> <td> </td> <td /> </tr> <tr> <td>UR OPIATES SCREEN</td> <td>NEG (< 300 ng/mL) </td> <td> NEGATIVE</td> </tr> <tr> <td>UR PHENCYCLIDINE (PCP) SCREEN</td> <td>NEG (< 25 ng/mL) </td> <td>NEGATIVE</td> </tr> <tr> <td>UR CANNABINOIDS (THC) SCREEN</td> <td>NEG (< 50 ng/mL) </td> <td>NEGATIVE</td> </tr> <tr> <td>UR COCAINE METABOLITE SCREEN</td> <td>NEG (< 300 ng/mL) </td> <td>NEGATIVE</td> </tr> <tr> < td>UR METHADONE SCREEN</td> <td>NEG (< 300 ng/mL) </td> < td>NEGATIVE</td> </tr> <tr> <td>UR BENZODIAZEPINE SCREEN< /td> <td>NEG (< 200 ng/mL) </td> <td>NEGATIVE</td> </tr> <tr> < colspan="10">URINALYSIS, ROUTINE - 12/16/16 14:37 </th> </tr> <tr> <td>UA LEUKOCYTE ESTERASE DIPSTICK</td> <td>TRACE </td> <td>NEGATIVE</td> </tr> <tr> <td>UA NITRITE DIPSTICK</td> <td>NEGATIVE </td> <td> NEGATIVE</td> </tr> <tr> <td>UA PROTEIN DIPSTICK</td> <td>1+ </td> <td>NEGATIVE</td> </tr> <tr> <td>UA GLUCOSE DIPSTICK</td> <td>NEGATIVE </td> <td>NEGATIVE </td> </tr> <tr> <td>UA KETONE DIPSTICK</td> <td >2+ </td> <td>NEGATIVE</td> </tr> <tr> <td>UA UROBILINOGEN DIPSTICK</td> <td>NORMAL </td> <td>NORMAL</td> </tr> <tr> <td>UA BILIRUBIN DIPSTICK</td> <td> NEGATIVE </td> <td>NEGATIVE</td> </tr> <tr> <td> UA BLOOD DIPSTICK</td> <td>NEGATIVE </td> <td>NEGATIVE</td> </tr> <tr> <td>UA SPECIFIC GRAVITY</td> <td> 1.020 </td> <td>1.015-1.025</td> </tr> <tr> <td> UR PH</td> <td>5.0 </td> <td>5.0-7.0</td> </tr> <tr> <th colspan="10">UA MICROSCOPIC - 12/16/16 14:37</th> </tr > <tr> <td>UA BACTERIA</td> <td>3+ </td> <td> NEGATIVE</td> </tr> <tr> <td>UA EPITHELIAL CELLS</td> <td>2+ epi/hpf</td> <td>0 - 1+</td> </tr> <tr> <td>UA MUCUS</td> <td>3+ </td> <td>NEG TO 1+</td> </tr> <tr> <td>UA VOLUME FOR EXAM</td> <td>8.0 mL</ td> <td>(12mL STD)</td> </tr> <tr> <td>UA WBC</ td> <td>2-5 wbc/hpf</td> <td>0 - 5</td> </tr> < tr> <th colspan="10">UR TEST - 12/16/16 14:37</th> </ tr> <tr> <td>UR TEST</td> <td>NEGATIVE </td> <td>NEGATIVE</td> </tr> <tr> <th colspan="10"> CHEM/HEM PROFILE-BEDSIDE - 12/16/16 14:45</th> </tr> <tr> <td>POTASSIUM</td> <td>3.6 mmol/L</td> <td>3.5-5.3</td> </tr> <tr> <td>METHOD</td> <td>Bedside </td> <td /> </tr> <tr> <td>ANION GAP</td> <td>17 mmol/L</td> <td>10-20</td> </tr> <tr> <td>METHOD </td> <td>Bedside </td> <td /> </tr> <tr> <td>GLUCOSE</td> <td>87 mg/dL</td> <td>70-99</td> < /tr> <tr> <td>BLOOD UREA NITROGEN</td> <td>11 mg/dL</td > <td>7-20</td> </tr> <tr> <td>CREATININE</td> <td>0.7 mg/dL</td> <td>0.6-1.0</td> </tr> <tr> <td>HEMOGLOBIN</td> <td>15.6 gm/dL</td> <td>12.0-16.0 </td> </tr> <tr> <td>HEMATOCRIT</td> <td>46.0 &# 37;</td> <td>37.0-47.0</td> </tr> <tr> <td> SODIUM</td> <td>139 mmol/L</td> <td>135-148</td> </tr> <tr> <td>CHLORIDE</td> <td>104 mmol/L</td> < td>98-110</td> </tr> <tr> <td>CARBON DIOXIDE</td> <td>22 mmol/L</td> <td>21-32</td> </tr> <tr> <td>CALCIUM IONIZED</td> <td>4.7 mg/dL</td> <td>4.5-5.3</td> </tr> <tr> <th colspan="10">CBC With Platelet and Differential - 01/22/17 16:42</th> </tr> <tr> <td> Absolute Basophils</td> <td>0.01 10*3/uL</td> <td>0.00-0.20</ td> </tr> <tr> <td>Absolute Eosinophils</td> <td >0.00 10*3/uL</td> <td>0.00-0.50</td> </tr> <tr> <td>Absolute Lymphocytes</td> <td>1.08 10*3/uL</td> <td>0.80 -3.30</td> </tr> <tr> <td>Absolute Monocytes</td> <td>0.06 10*3/uL</td> <td>0.30-1.00</td> </tr> <tr> <td>Absolute Neutrophils</td> <td>9.49 10*3/uL</td> < td>1.90-7.00</td> </tr> <tr> <td>Basophils</td> <td>0 %</td> <td>0-2</td> </tr> <tr> <td> Eosinophils</td> <td>0 %</td> <td>0-4</td> </tr> <tr> <td>HCT</td> <td>43.8 %</td> <td>37.0- 47.0</td> </tr> <tr> <td>HGB</td> <td>14.8 g/dL< /td> <td>12.0-16.0</td> </tr> <tr> <td>Immature Granulocytes</td> <td>0.3 %</td> <td>0.0-1.0</td> < /tr> <tr> <td>Lymphocytes</td> <td>10 %</td> <td>20-46</td> </tr> <tr> <td>MCH</td> <td> 33.8 pg</td> <td>27.0-32.0</td> </tr> <tr> <td> MCHC</td> <td>33.8 g/dL</td> <td>32.0-36.0</td> </tr> <tr> <td>MCV</td> <td>100.0 fL</td> <td>82.0- 99.0</td> </tr> <tr> <td>Monocytes</td> <td>1 &# 37;</td> <td>4-11</td> </tr> <tr> <td>MPV</td> <td>9.3 fL</td> <td>9.4-12.4</td> </tr> <tr> <td>Neutrophils</td> <td>89 %</td> <td>51-75</td> </tr> <tr> <td>Nucleated RBC Automated</td> <td> 0.0 /100 WBC</td> <td /> </tr> <tr> <td> Platelet Count</td> <td>342 K/uL</td> <td>150-400</td> </tr> <tr> <td>RBC</td> <td>4.38 10*6/uL</td> <td>4.00-5.20</td> </tr> <tr> <td>RDW</td> <td> 14.1 %</td> <td>11.5-14.5</td> </tr> <tr> < td>WBC</td> <td>10.7 K/uL</td> <td>4.8-10.8</td> </tr> <tr> <th colspan="10">Comprehensive Metabolic Panel (CMP) - 06/09 16:42</th> </tr> <tr> <td>Albumin</td> <td >5.1 g/dL</td> <td>3.5-4.8</td> </tr> <tr> <td> Alkaline Phosphatase</td> <td>60 U/L</td> <td>26-104</td> </tr> <tr> <td>ALT (SGPT)</td> <td>25 U/L</td> <td>14-54</td> </tr> <tr> <td>Anion Gap</td> <td>11 mEq/L</td> <td>3-20</td> </tr> <tr> < td>AST (SGOT)</td> <td>25 U/L</td> <td>15-41</td> </tr > <tr> <td>Bilirubin Total</td> <td>0.6 mg/dL</td> <td>0.2-1.2</td> </tr> <tr> <td>BUN</td> < td>8 mg/dL</td> <td>4-20</td> </tr> <tr> <td> Calcium</td> <td>9.9 mg/dL</td> <td>8.6-10.0</td> </tr > <tr> <td>Chloride</td> <td>105 mEq/L</td> < td>99-109</td> </tr> <tr> <td>CO2</td> <td>19 mEq/L</td> <td>22-32</td> </tr> <tr> <td> Creatinine</td> <td>0.60 mg/dL</td> <td>0.44-1.03</td> </tr> <tr> <td>Globulin</td> <td>3.8 g/dL</td> <td>1.9-4.3</td> </tr> <tr> <td>Glucose</td> < td>119 mg/dL</td> <td>70-100</td> </tr> <tr> <td >Potassium</td> <td>4.1 mEq/L</td> <td>3.6-5.1</td> </ tr> <tr> <td>Protein</td> <td>8.9 g/dL</td> < td>6.1-7.9</td> </tr> <tr> <td>Sodium</td> <td> 135 mEq/L</td> <td>136-144</td> </tr> <tr> <th colspan="10">Alcohol, Blood - 01/22/17 16:42</th> </tr> <tr> <td>Alcohol, Blood</td> <td>Not Detected mg/dL</td> <td / > </tr> <tr> <th colspan="10">Acetaminophen - 01/22/17 16 :42</th> </tr> <tr> <td>Acetaminophen</td> <td>& lt;10 mcg/mL</td> <td>10-30</td> </tr> <tr> <th colspan="10">Salicylate - 01/22/17 16:42</th> </tr> <tr> <td>Salicylate</td> <td><4 mg/dL</td> <td>0-30</td> </tr> <tr> < colspan="10">eGFR - 01/22/17 16:42</th> </ tr> <tr> <td>eGFR</td> <td>>60 mL/min</td> <td>>60</td> </tr> <tr> < colspan="10"> Screen, Urine NPT - 01/22/17 17:08</th> </tr> <tr> <td> Screen, Urine NPT</td> <td>Negative NA</td> <td /> </tr> <tr> < colspan="10">Urinalysis with reflex microscopic - 01/23/17 11:10</th> </tr> <tr> <td> Appearance</td> <td>Cloudy NA</td> <td /> </tr> <tr> <td>Bilirubin</td> <td>Negative NA</td> <td> Negative</td> </tr> <tr> <td>Blood</td> <td> Negative NA</td> <td>Negative</td> </tr> <tr> < td>Color</td> <td>Yellow NA</td> <td /> </tr> < tr> <td>Glucose, Urine</td> <td>Negative </td> <td> Negative</td> </tr> <tr> <td>Ketones</td> <td> Trace </td> <td>Negative</td> </tr> <tr> <td> Leukocyte Esterase</td> <td>Negative NA</td> <td>Negative</td > </tr> <tr> <td>Nitrites</td> <td>Negative NA</ td> <td>Negative</td> </tr> <tr> <td>pH</td> <td>5.0 NA</td> <td>5.0-8.0</td> </tr> <tr> <td>Protein</td> <td>Pos 1+ NA</td> <td>Negative</td> </tr> <tr> <td>Specific [place]</td> <td>1.040 NA</ td> <td>1.003-1.030</td> </tr> <tr> <td>UA Collection type</td> <td>Not Specified NA</td> <td /> < /tr> <tr> <td>Urobilinogen</td> <td>Negative mg/dL</td > <td><1.0</td> </tr> <tr> < colspan="10"> Urine Drug Screen - 01/23/17 11:10</th> </tr> <tr> <td> Amph/Meth/Ecstasy</td> <td>Negative NA</td> <td /> </tr > <tr> <td>Barbiturates</td> <td>Negative NA</td> <td /> </tr> <tr> <td>Benzodiazepine</td> < td>Negative NA</td> <td /> </tr> <tr> <td> Cannabinoid</td> <td>Negative NA</td> <td /> </tr> <tr> <td>Cocaine</td> <td>Negative NA</td> <td / > </tr> <tr> <td>EDDP (Methadone met.)</td> <td> Negative NA</td> <td /> </tr> <tr> <td>Opiate</ td> <td>Negative NA</td> <td /> </tr> <tr> <td>Phencyclidine (PCP)</td> <td>Negative NA</td> <td /> </tr> <tr> < colspan="10">Urine Microscopic - 11:10</th> </tr> <tr> <td>Bacteria</td> <td> Numerous NA</td> <td /> </tr> <tr> <td> Epithelial Cells</td> <td>10 /HPF</td> <td /> </tr> <tr> <td>RBC, Urine</td> <td>0 /HPF</td> <td>0-2 </td> </tr> <tr> <td>Urine Mucus</td> <td> Present NA</td> <td /> </tr> <tr> <td>WBC, Urine </td> <td>0 /HPF</td> <td>0-4</td> </tr> <tr> <th colspan="10">UR TEST - 02/02/17 18:22</th> </tr> <tr> <td>UR TEST</td> <td>NEGATIVE </td> <td>NEGATIVE</td> </tr> <tr> <th colspan="10"> URINALYSIS, ROUTINE - 02/02/17 18:22</th> </tr> <tr> <td> UA LEUKOCYTE ESTERASE DIPSTICK</td> <td>TRACE </td> <td> NEGATIVE</td> </tr> <tr> <td>UA NITRITE DIPSTICK</td> <td>NEGATIVE </td> <td>NEGATIVE</td> </tr> <tr> <td>UA PROTEIN DIPSTICK</td> <td>1+ </td> <td>NEGATIVE </td> </tr> <tr> <td>UA GLUCOSE DIPSTICK</td> < td>NEGATIVE </td> <td>NEGATIVE</td> </tr> <tr> < td>UA KETONE DIPSTICK</td> <td>NEGATIVE </td> <td>NEGATIVE</td > </tr> <tr> <td>UA UROBILINOGEN DIPSTICK</td> < td>NORMAL </td> <td>NORMAL</td> </tr> <tr> <td> UA BILIRUBIN DIPSTICK</td> <td>3+ </td> <td>NEGATIVE</td> </tr> <tr> <td>UA BLOOD DIPSTICK</td> <td>4+ </td> <td>NEGATIVE</td> </tr> <tr> <td>UA SPECIFIC GRAVITY</td> <td>1.020 </td> <td>1.015-1.025</td> </tr > <tr> <td>UR PH</td> <td>5.0 </td> <td>5.0- 7.0</td> </tr> <tr> < colspan="10">UA MICROSCOPIC - 18:22</th> </tr> <tr> <td>UA BACTERIA</td> <td>3+ </td> <td>NEGATIVE</td> </tr> <tr> <td> UA EPITHELIAL CELLS</td> <td>2+ epi/hpf</td> <td>0 - 1+</td> </tr> <tr> <td>UA MUCUS</td> <td>3+ </td> <td>NEG TO 1+</td> </tr> <tr> <td>UA RBC</td> <td>0-3 rbc/hpf</td> <td>0 - 3</td> </tr> <tr> <td>UA VOLUME FOR EXAM</td> <td>12.0 mL</td> <td>(12mL STD) </td> </tr> <tr> <td>UA WBC</td> <td>2-5 wbc/hpf </td> <td>0 - 5</td> </tr> <tr> <th colspan="10 ">CBC W/DIFF - 02/02/17 18:28</th> </tr> <tr> <td> GRANULOCYTE #</td> <td>4.1 k/cumm</td> <td>2.0-9.0</td> </tr> <tr> <td>GRANULOCYTE %</td> <td>59 %</ td> <td>50-75</td> </tr> <tr> <td>LYMPHOCYTE #</ td> <td>2.4 k/cumm</td> <td>1.0-4.0</td> </tr> < tr> <td>LYMPHOCYTE %</td> <td>34 %</td> <td> 20-30</td> </tr> <tr> <td>MEAN CELL HGB</td> <td >33.9 pg</td> <td>27.0-33.0</td> </tr> <tr> <td> MEAN CELL HGB CONCENTRATION</td> <td>33.0 g/dL</td> <td>32.0- 37.0</td> </tr> <tr> <td>MEAN CELL VOLUME</td> < td>102.9 fl</td> <td>80.0-100.0</td> </tr> <tr> <td>MONOCYTE #</td> <td>0.4 k/cumm</td> <td>0.1-1.0</td> </tr> <tr> <td>MONOCYTE %</td> <td>6 %</td> <td>4-6</td> </tr> <tr> <td>RED BLOOD CELL</td > <td>3.45 m/cumm</td> <td>4.00-6.00</td> </tr> <tr> <td>RED CELL DISTRIBUTION WIDTH</td> <td>13.7 %</td> <td>11.0-15.6</td> </tr> <tr> <td>WHITE BLOOD CELL</td> <td>6.9 k/cumm</td> <td>5.0-10.0</td> </tr> <tr> <td>HEMOGLOBIN</td> <td>11.7 gm/dL</td> < td>12.0-16.0</td> </tr> <tr> <td>HEMATOCRIT</td> <td>35.5 %</td> <td>37.0-47.0</td> </tr> <tr> <td>PLATELET COUNT</td> <td>321 k/cumm</td> <td>150-450</ td> </tr> <tr> <th colspan="10">METABOLIC PANEL, BASIC - 02/02/17 18:28</th> </tr> <tr> <td>POTASSIUM</td> <td>3.7 mmol/L</td> <td>3.5-5.3</td> </tr> <tr> <td>EST GFR (MDRD)</td> <td>> 60 mL/min</td> <td>> 59</td> </tr> <tr> <td>ANION GAP</td> <td>11 mmol/L</td> <td>5-15</td> </tr> <tr> <td>EST CrCl (CG)</td> <td>> 60 mL/min</td> <td>> 59</td> </tr> <tr> <td>GLUCOSE</td> <td>80 mg/dL</td> <td>70-99</td> </tr> <tr> <td>CALCIUM</td> < td>9.1 mg/dL</td> <td>8.5-10.1</td> </tr> <tr> < td>BLOOD UREA NITROGEN</td> <td>19 mg/dL</td> <td>7-20</td> </tr> <tr> <td>CREATININE</td> <td>0.9 mg/dL</td > <td>0.6-1.0</td> </tr> <tr> <td>SODIUM</td> <td>134 mmol/L</td> <td>135-148</td> </tr> <tr> <td>CHLORIDE</td> <td>100 mmol/L</td> <td>98-110</td > </tr> <tr> <td>CARBON DIOXIDE</td> <td>23 mmol /L</td> <td>21-32</td> </tr> <tr> < colspan= "10">URINALYSIS, ROUTINE - 02/07/17 11:59</th> </tr> <tr> <td>UA LEUKOCYTE ESTERASE DIPSTICK</td> <td>TRACE </td> <td> NEGATIVE</td> </tr> <tr> <td>UA NITRITE DIPSTICK</td> <td>NEGATIVE </td> <td>NEGATIVE</td> </tr> <tr> <td>UA PROTEIN DIPSTICK</td> <td>1+ </td> <td>NEGATIVE </td> </tr> <tr> <td>UA GLUCOSE DIPSTICK</td> < td>NEGATIVE </td> <td>NEGATIVE</td> </tr> <tr> < td>UA KETONE DIPSTICK</td> <td>NEGATIVE </td> <td>NEGATIVE</td > </tr> <tr> <td>UA UROBILINOGEN DIPSTICK</td> < td>NORMAL </td> <td>NORMAL</td> </tr> <tr> <td> UA BILIRUBIN DIPSTICK</td> <td>1+ </td> <td>NEGATIVE</td> </tr> <tr> <td>UA BLOOD DIPSTICK</td> <td>1+ </td> <td>NEGATIVE</td> </tr> <tr> <td>UA SPECIFIC GRAVITY</td> <td>1.020 </td> <td>1.015-1.025</td> </tr > <tr> <td>UR PH</td> <td>5.0 </td> <td>5.0- 7.0</td> </tr> <tr> < colspan="10">UA MICROSCOPIC - 11:59</th> </tr> <tr> <td>UA BACTERIA</td> <td>2+ </td> <td>NEGATIVE</td> </tr> <tr> <td> UA EPITHELIAL CELLS</td> <td>3+ epi/hpf</td> <td>0 - 1+</td> </tr> <tr> <td>UA MUCUS</td> <td>4+ </td> <td>NEG TO 1+</td> </tr> <tr> <td>UA RBC</td> <td>0-3 rbc/hpf</td> <td>0 - 3</td> </tr> <tr> <td>UA VOLUME FOR EXAM</td> <td>12.0 mL</td> <td>(12mL STD) </td> </tr> <tr> <td>UA WBC</td> <td>2-5 wbc/hpf </td> <td>0 - 5</td> </tr> <tr> < colspan="10 ">UR TEST - 02/07/17 11:59</th> </tr> <tr> <td> UR TEST</td> <td>NEGATIVE </td> <td>NEGATIVE</td> </tr> <tr> < colspan="10">CBC W/DIFF - 02/07/17 12:40</ th> </tr> <tr> <td>GRANULOCYTE #</td> <td>2.9 k/ cumm</td> <td>2.0-9.0</td> </tr> <tr> <td> GRANULOCYTE %</td> <td>63 %</td> <td>50-75</td> </tr> <tr> <td>LYMPHOCYTE #</td> <td>1.4 k/cumm</td> <td>1.0-4.0</td> </tr> <tr> <td>LYMPHOCYTE &#37 ;</td> <td>30 %</td> <td>20-30</td> </tr> < tr> <td>MEAN CELL HGB</td> <td>34.1 pg</td> <td>27.0- 33.0</td> </tr> <tr> <td>MEAN CELL HGB CONCENTRATION</td > <td>33.0 g/dL</td> <td>32.0-37.0</td> </tr> < tr> <td>MEAN CELL VOLUME</td> <td>103.4 fl</td> <td> 80.0-100.0</td> </tr> <tr> <td>MONOCYTE #</td> < td>0.3 k/cumm</td> <td>0.1-1.0</td> </tr> <tr> < td>MONOCYTE %</td> <td>6 %</td> <td>4-6</td> </ tr> <tr> <td>RED BLOOD CELL</td> <td>3.52 m/cumm</td> <td>4.00-6.00</td> </tr> <tr> <td>RED CELL DISTRIBUTION WIDTH</td> <td>14.2 %</td> <td>11.0-15.6</td > </tr> <tr> <td>WHITE BLOOD CELL</td> <td>4.6 k /cumm</td> <td>5.0-10.0</td> </tr> <tr> <td> HEMOGLOBIN</td> <td>12.0 gm/dL</td> <td>12.0-16.0</td> </tr> <tr> <td>HEMATOCRIT</td> <td>36.4 %</td> <td>37.0-47.0</td> </tr> <tr> <td>PLATELET COUNT</ td> <td>338 k/cumm</td> <td>150-450</td> </tr> < tr> <th colspan="10">[facility] 12:40</th> </tr> <tr> <td>POTASSIUM</td> <td>3.9 mmol/L</td > <td>3.5-5.3</td> </tr> <tr> <td>EST GFR (MDRD) </td> <td>> 60 mL/min</td> <td>> 59</td> </tr> <tr> <td>ANION GAP</td> <td>13 mmol/L</td> <td> 5-15</td> </tr> <tr> <td>EST CrCl (CG)</td> <td> > 60 mL/min</td> <td>> 59</td> </tr> <tr> <td>GLUCOSE</td> <td>99 mg/dL</td> <td>70-99</td> </tr > <tr> <td>CALCIUM</td> <td>9.1 mg/dL</td> <td >8.5-10.1</td> </tr> <tr> <td>BLOOD UREA NITROGEN</td> <td>15 mg/dL</td> <td>7-20</td> </tr> <tr> <td>CREATININE</td> <td>0.7 mg/dL</td> <td>0.6-1.0</td> </tr> <tr> <td>SODIUM</td> <td>142 mmol/L</td> <td>135-148</td> </tr> <tr> <td>CHLORIDE</td> <td>104 mmol/L</td> <td>98-110</td> </tr> <tr> <td>AST/SGOT</td> <td>19 Units/L</td> <td>10-37</td> </tr> <tr> <td>ALT/SGPT</td> <td>50 Units/L</td> <td>< 66</td> </tr> <tr> <td>CARBON DIOXIDE< /td> <td>25 mmol/L</td> <td>21-32</td> </tr> <tr > <td>TOTAL PROTEIN</td> <td>7.9 gm/dL</td> <td>6.4- 8.2</td> </tr> <tr> <td>ALBUMIN</td> <td>4.4 gm/ dL</td> <td>3.4-5.0</td> </tr> <tr> <td>BILI TOTAL</td> <td>0.3 mg/dL</td> <td>0.0-1.0</td> </tr> <tr> <td>ALKALINE PHOSPHATASE TOTAL</td> <td>67 IU/L</td > <td>45-117</td> </tr> <tr> <th colspan="10"> LIPASE - 02/07/17 12:40</th> </tr> <tr> <td>LIPASE</td> <td>103 Units/L</td> <td>73-393</td> </tr> <tr> <th colspan="10">CBC W/DIFF - 02/24/17 14:35</th> </tr> <tr> <td>EOSINOPHIL #</td> <td>0.1 k/cumm</td> <td> 0.1-0.5</td> </tr> <tr> <td>EOSINOPHIL %</td> <td>1 %</td> <td>2-4</td> </tr> <tr> <td> GRANULOCYTE #</td> <td>4.7 k/cumm</td> <td>2.0-9.0</td> </tr> <tr> <td>GRANULOCYTE %</td> <td>64 %</ td> <td>50-75</td> </tr> <tr> <td>LYMPHOCYTE #</ td> <td>2.0 k/cumm</td> <td>1.0-4.0</td> </tr> < tr> <td>LYMPHOCYTE %</td> <td>27 %</td> <td> 20-30</td> </tr> <tr> <td>MEAN CELL HGB</td> <td >35.5 pg</td> <td>27.0-33.0</td> </tr> <tr> <td> MEAN CELL HGB CONCENTRATION</td> <td>34.3 g/dL</td> <td>32.0- 37.0</td> </tr> <tr> <td>MEAN CELL VOLUME</td> < td>103.4 fl</td> <td>80.0-100.0</td> </tr> <tr> <td>MONOCYTE #</td> <td>0.6 k/cumm</td> <td>0.1-1.0</td> </tr> <tr> <td>MONOCYTE %</td> <td>8 %</td> <td>4-6</td> </tr> <tr> <td>RED BLOOD CELL</td > <td>3.52 m/cumm</td> <td>4.00-6.00</td> </tr> <tr> <td>RED CELL DISTRIBUTION WIDTH</td> <td>13.4 %</td> <td>11.0-15.6</td> </tr> <tr> <td>WHITE BLOOD CELL</td> <td>7.3 k/cumm</td> <td>5.0-10.0</td> </tr> <tr> <td>HEMOGLOBIN</td> <td>12.5 gm/dL</td> < td>12.0-16.0</td> </tr> <tr> <td>HEMATOCRIT</td> <td>36.4 %</td> <td>37.0-47.0</td> </tr> <tr> <td>PLATELET COUNT</td> <td>264 k/cumm</td> <td>150-450</ td> </tr> <tr> <th colspan="10">METABOLIC PANEL, COMPREHN - 02/24/17 14:35</th> </tr> <tr> <td>POTASSIUM</ td> <td>3.8 mmol/L</td> <td>3.5-5.3</td> </tr> < tr> <td>EST GFR (MDRD)</td> <td>> 60 mL/min</td> < td>> 59</td> </tr> <tr> <td>ANION GAP</td> < td>12 mmol/L</td> <td>5-15</td> </tr> <tr> <td> EST CrCl (CG)</td> <td>> 60 mL/min</td> <td>> 59</td> </tr> <tr> <td>GLUCOSE</td> <td>97 mg/dL</td> <td>70-99</td> </tr> <tr> <td>CALCIUM</td> <td>9.6 mg/dL</td> <td>8.5-10.1</td> </tr> <tr> <td>BLOOD UREA NITROGEN</td> <td>13 mg/dL</td> <td>7-20</ td> </tr> <tr> <td>CREATININE</td> <td>0.8 mg/dL </td> <td>0.6-1.0</td> </tr> <tr> <td>SODIUM</td > <td>141 mmol/L</td> <td>135-148</td> </tr> <tr > <td>CHLORIDE</td> <td>104 mmol/L</td> <td>98-110</ td> </tr> <tr> <td>AST/SGOT</td> <td>17 Units/L< /td> <td>10-37</td> </tr> <tr> <td>ALT/SGPT</td > <td>21 Units/L</td> <td>< 66</td> </tr> <tr > <td>CARBON DIOXIDE</td> <td>25 mmol/L</td> <td>21- 32</td> </tr> <tr> <td>TOTAL PROTEIN</td> <td> 8.0 gm/dL</td> <td>6.4-8.2</td> </tr> <tr> <td> ALBUMIN</td> <td>4.2 gm/dL</td> <td>3.4-5.0</td> </tr> <tr> <td>BILI TOTAL</td> <td>0.2 mg/dL</td> < td>0.0-1.0</td> </tr> <tr> <td>ALKALINE PHOSPHATASE TOTAL </td> <td>64 IU/L</td> <td>45-117</td> </tr> <tr > <th colspan="10">LIPASE - 02/24/17 14:35</th> </tr> <tr > <td>LIPASE</td> <td>123 Units/L</td> <td>73-393</td > </tr> <tr> <th colspan="10">URINALYSIS, ROUTINE - 02/24 16:20</th> </tr> <tr> <td>UA LEUKOCYTE ESTERASE DIPSTICK</td> <td>NEGATIVE </td> <td>NEGATIVE</td> </tr > <tr> <td>UA NITRITE DIPSTICK</td> <td>NEGATIVE </td> <td>NEGATIVE</td> </tr> <tr> <td>UA PROTEIN DIPSTICK</td> <td>NEGATIVE </td> <td>NEGATIVE</td> </tr > <tr> <td>UA GLUCOSE DIPSTICK</td> <td>NEGATIVE </td> <td>NEGATIVE</td> </tr> <tr> <td>UA KETONE DIPSTICK</td> <td>NEGATIVE </td> <td>NEGATIVE</td> </tr > <tr> <td>UA UROBILINOGEN DIPSTICK</td> <td>NORMAL </ td> <td>NORMAL</td> </tr> <tr> <td>UA BILIRUBIN DIPSTICK</td> <td>NEGATIVE </td> <td>NEGATIVE</td> </tr > <tr> <td>UA BLOOD DIPSTICK</td> <td>NEGATIVE </td> <td>NEGATIVE</td> </tr> <tr> <td>UA SPECIFIC GRAVITY</td> <td>1.015 </td> <td>1.015-1.025</td> </tr > <tr> <td>UR PH</td> <td>6.0 </td> <td>5.0- 7.0</td> </tr> <tr> <th colspan="10">UR TEST - 02/24/17 16:20</th> </tr> <tr> <td>UR TEST</td > <td>NEGATIVE </td> <td>NEGATIVE</td> </tr> <tr > <th colspan="10">CBC W/DIFF - 02/25/17 16:20</th> </tr> <tr> <td>GRANULOCYTE #</td> <td>8.2 k/cumm</td> <td >2.0-9.0</td> </tr> <tr> <td>GRANULOCYTE %</td> <td>76 %</td> <td>50-75</td> </tr> <tr> <td>LYMPHOCYTE #</td> <td>2.2 k/cumm</td> <td>1.0-4.0</td> </tr> <tr> <td>LYMPHOCYTE %</td> <td>20 &#37 ;</td> <td>20-30</td> </tr> <tr> <td>MEAN CELL HGB</td> <td>34.8 pg</td> <td>27.0-33.0</td> </tr> <tr> <td>MEAN CELL HGB CONCENTRATION</td> <td>34.1 g/dL</ td> <td>32.0-37.0</td> </tr> <tr> <td>MEAN CELL VOLUME</td> <td>102.1 fl</td> <td>80.0-100.0</td> </tr > <tr> <td>MONOCYTE #</td> <td>0.4 k/cumm</td> <td>0.1-1.0</td> </tr> <tr> <td>MONOCYTE %</td> <td>4 %</td> <td>4-6</td> </tr> <tr> <td>RED BLOOD CELL</td> <td>3.79 m/cumm</td> <td>4.00-6.00</td > </tr> <tr> <td>RED CELL DISTRIBUTION WIDTH</td> <td>13.3 %</td> <td>11.0-15.6</td> </tr> <tr> <td>WHITE BLOOD CELL</td> <td>10.9 k/cumm</td> <td>5.0- 10.0</td> </tr> <tr> <td>HEMOGLOBIN</td> <td> 13.2 gm/dL</td> <td>12.0-16.0</td> </tr> <tr> < td>HEMATOCRIT</td> <td>38.7 %</td> <td>37.0-47.0</td> </tr> <tr> <td>PLATELET COUNT</td> <td>309 k/cumm</ td> <td>150-450</td> </tr> <tr> <th colspan="10 ">METABOLIC PANEL, COMPREHN - 02/25/17 16:20</th> </tr> <tr> <td>POTASSIUM</td> <td>3.1 mmol/L</td> <td>3.5-5.3</td> </tr> <tr> <td>EST GFR (MDRD)</td> <td>> 60 mL/min</td> <td>> 59</td> </tr> <tr> <td> ANION GAP</td> <td>15 mmol/L</td> <td>5-15</td> </tr> <tr> <td>EST CrCl (CG)</td> <td>> 60 mL/min</td> <td>> 59</td> </tr> <tr> <td>GLUCOSE</td> <td>134 mg/dL</td> <td>70-99</td> </tr> <tr> <td>CALCIUM</td> <td>9.8 mg/dL</td> <td>8.5-10.1</td> </tr> <tr> <td>BLOOD UREA NITROGEN</td> <td>12 mg/dL </td> <td>7-20</td> </tr> <tr> <td>CREATININE</ td> <td>0.7 mg/dL</td> <td>0.6-1.0</td> </tr> < tr> <td>SODIUM</td> <td>140 mmol/L</td> <td>135-148</ td> </tr> <tr> <td>CHLORIDE</td> <td>103 mmol/L< /td> <td>98-110</td> </tr> <tr> <td>AST/SGOT</td > <td>14 Units/L</td> <td>10-37</td> </tr> <tr> <td>ALT/SGPT</td> <td>19 Units/L</td> <td>< 66</ td> </tr> <tr> <td>CARBON DIOXIDE</td> <td>22 mmol/L</td> <td>21-32</td> </tr> <tr> <td>TOTAL PROTEIN</td> <td>8.5 gm/dL</td> <td>6.4-8.2</td> </tr> <tr> <td>ALBUMIN</td> <td>4.3 gm/dL</td> <td> 3.4-5.0</td> </tr> <tr> <td>BILI TOTAL</td> <td> 0.4 mg/dL</td> <td>0.0-1.0</td> </tr> <tr> <td> ALKALINE PHOSPHATASE TOTAL</td> <td>66 IU/L</td> <td>45-117</ td> </tr> <tr> <th colspan="10">[facility] - 02/25/17 18: 03</th> </tr> <tr> <td>Microbiology</td> <td> </ td> <td /> </tr> <tr> <th colspan="10"> Screen, Urine NPT - 03/17/17 12:45</th> </tr> <tr> <td> Screen, Urine NPT</td> <td>Negative NA</td> <td /> </tr> <tr> <th colspan="10">CBC With Platelet and Differential - 03/17/17 12:45</th> </tr> <tr> <td> Absolute Basophils</td> <td>0.02 10*3/uL</td> <td>0.00-0.20</ td> </tr> <tr> <td>Absolute Eosinophils</td> <td >0.02 10*3/uL</td> <td>0.00-0.50</td> </tr> <tr> <td>Absolute Lymphocytes</td> <td>2.13 10*3/uL</td> <td>0.80 -3.30</td> </tr> <tr> <td>Absolute Monocytes</td> <td>0.53 10*3/uL</td> <td>0.30-1.00</td> </tr> <tr> <td>Absolute Neutrophils</td> <td>6.22 10*3/uL</td> < td>1.90-7.00</td> </tr> <tr> <td>Basophils</td> <td>0 %</td> <td>0-2</td> </tr> <tr> <td> Eosinophils</td> <td>0 %</td> <td>0-4</td> </tr> <tr> <td>HCT</td> <td>40.7 %</td> <td>37.0- 47.0</td> </tr> <tr> <td>HGB</td> <td>14.0 g/dL< /td> <td>12.0-16.0</td> </tr> <tr> <td>Immature Granulocytes</td> <td>0.2 %</td> <td>0.0-1.0</td> < /tr> <tr> <td>Lymphocytes</td> <td>24 %</td> <td>20-46</td> </tr> <tr> <td>MCH</td> <td> 34.4 pg</td> <td>27.0-32.0</td> </tr> <tr> <td> MCHC</td> <td>34.4 g/dL</td> <td>32.0-36.0</td> </tr> <tr> <td>MCV</td> <td>100.0 fL</td> <td>82.0- 99.0</td> </tr> <tr> <td>Monocytes</td> <td>6 &# 37;</td> <td>4-11</td> </tr> <tr> <td>MPV</td> <td>8.7 fL</td> <td>9.4-12.4</td> </tr> <tr> <td>Neutrophils</td> <td>70 %</td> <td>51-75</td> </tr> <tr> <td>Nucleated RBC Automated</td> <td> 0.0 /100 WBC</td> <td /> </tr> <tr> <td> Platelet Count</td> <td>335 K/uL</td> <td>150-400</td> </tr> <tr> <td>RBC</td> <td>4.07 10*6/uL</td> <td>4.00-5.20</td> </tr> <tr> <td>RDW</td> <td> 12.7 %</td> <td>11.5-14.5</td> </tr> <tr> < td>WBC</td> <td>8.9 K/uL</td> <td>4.8-10.8</td> </tr> <tr> <th colspan="10">Comprehensive Metabolic Panel (CMP) - 12:45</th> </tr> <tr> <td>Albumin</td> <td >5.0 g/dL</td> <td>3.5-4.8</td> </tr> <tr> <td> Alkaline Phosphatase</td> <td>57 U/L</td> <td>26-104</td> </tr> <tr> <td>ALT (SGPT)</td> <td>14 U/L</td> <td>14-54</td> </tr> <tr> <td>Anion Gap</td> <td>9 mEq/L</td> <td>3-20</td> </tr> <tr> < td>AST (SGOT)</td> <td>16 U/L</td> <td>15-41</td> </tr > <tr> <td>Bilirubin Total</td> <td>0.4 mg/dL</td> <td>0.2-1.2</td> </tr> <tr> <td>BUN</td> < td>12 mg/dL</td> <td>4-20</td> </tr> <tr> <td> Calcium</td> <td>9.8 mg/dL</td> <td>8.6-10.0</td> </tr > <tr> <td>Chloride</td> <td>105 mEq/L</td> < td>99-109</td> </tr> <tr> <td>CO2</td> <td>22 mEq/L</td> <td>22-32</td> </tr> <tr> <td> Creatinine</td> <td>0.61 mg/dL</td> <td>0.44-1.03</td> </tr> <tr> <td>Globulin</td> <td>3.0 g/dL</td> <td>1.9-4.3</td> </tr> <tr> <td>Glucose</td> < td>83 mg/dL</td> <td>70-100</td> </tr> <tr> <td> Potassium</td> <td>3.5 mEq/L</td> <td>3.6-5.1</td> </tr > <tr> <td>Protein</td> <td>8.0 g/dL</td> <td> 6.1-7.9</td> </tr> <tr> <td>Sodium</td> <td>136 mEq/L</td> <td>136-144</td> </tr> <tr> <th colspan="10">eGFR - 03/17/17 12:45</th> </tr> <tr> <td> eGFR</td> <td>>60 mL/min</td> <td>>60</td> </tr> <tr> <th colspan="10">Urinalysis with reflex microscopic - 12:45</th> </tr> <tr> <td>Appearance</td> <td>Sl Cloudy NA</td> <td /> </tr> <tr> <td> Bilirubin</td> <td>Positive NA</td> <td>Negative</td> < /tr> <tr> <td>Blood</td> <td>Negative NA</td> <td>Negative</td> </tr> <tr> <td>Color</td> <td> Yellow NA</td> <td /> </tr> <tr> <td>Glucose, Urine</td> <td>Negative </td> <td>Negative</td> </tr> <tr> <td>Ketones</td> <td>Negative </td> <td> Negative</td> </tr> <tr> <td>Leukocyte Esterase</td> <td>Negative NA</td> <td>Negative</td> </tr> <tr> <td>Nitrites</td> <td>Negative NA</td> <td>Negative</ td> </tr> <tr> <td>pH</td> <td>5.5 NA</td> <td>5.0-8.0</td> </tr> <tr> <td>Protein</td> <td>Trace NA</td> <td>Negative</td> </tr> <tr> <td>Specific [place]</td> <td>1.015 NA</td> <td>1.003-1.030 </td> </tr> <tr> <td>UA Collection type</td> <td >Clean Catch NA</td> <td /> </tr> <tr> <td> Urobilinogen</td> <td>0.2 mg/dL</td> <td><1.0</td> < /tr> <tr> <th colspan="10">CBC W/DIFF - 04/28/17 22:32</th> </tr> <tr> <td>BASOPHIL #</td> <td>0.0 k/cumm</td> <td>0.0-0.2</td> </tr> <tr> <td>BASOPHIL %< /td> <td>0.1 %</td> <td>0-1</td> </tr> <tr> <td>EOSINOPHIL #</td> <td>0.1 k/cumm</td> <td>0.1- 0.5</td> </tr> <tr> <td>EOSINOPHIL %</td> < td>1.6 %</td> <td>2-4</td> </tr> <tr> <td> GRANULOCYTE #</td> <td>3.1 k/cumm</td> <td>2.0-9.0</td> </tr> <tr> <td>GRANULOCYTE %</td> <td>40.8 %< /td> <td>50-75</td> </tr> <tr> <td>LYMPHOCYTE #< /td> <td>3.6 k/cumm</td> <td>1.0-4.0</td> </tr> <tr> <td>LYMPHOCYTE %</td> <td>47.6 %</td> < td>20-30</td> </tr> <tr> <td>MEAN CELL HGB</td> <td>33.9 pg</td> <td>27.0-33.0</td> </tr> <tr> < td>MEAN CELL HGB CONCENTRATION</td> <td>32.5 g/dL</td> <td> 32.0-37.0</td> </tr> <tr> <td>MEAN CELL VOLUME</td> <td>104.1 fl</td> <td>80.0-100.0</td> </tr> <tr> <td>MONOCYTE #</td> <td>0.8 k/cumm</td> <td>0.1-1.0</td > </tr> <tr> <td>MONOCYTE %</td> <td>9.9 &# 37;</td> <td>4-6</td> </tr> <tr> <td>RED BLOOD CELL</td> <td>3.63 m/cumm</td> <td>4.00-6.00</td> </tr > <tr> <td>RED CELL DISTRIBUTION WIDTH</td> <td>12.4 &# 37;</td> <td>11.0-15.6</td> </tr> <tr> <td> WHITE BLOOD CELL</td> <td>7.7 k/cumm</td> <td>5.0-10.0</td> </tr> <tr> <td>HEMOGLOBIN</td> <td>12.3 gm/dL</td > <td>12.0-16.0</td> </tr> <tr> <td>HEMATOCRIT</ td> <td>37.8 %</td> <td>37.0-47.0</td> </tr> <tr> <td>PLATELET COUNT</td> <td>334 k/cumm</td> < td>150-450</td> </tr> <tr> <th colspan="10">D-DIMER QUANT - 04/28/17 22:32</th> </tr> <tr> <td>D-DIMER QUANT< /td> <td>308 ng/mL</td> <td>< 500</td> </tr> <tr> <th colspan="10">METABOLIC PANEL, COMPREHN - 04/28/17 22:32</th> </tr> <tr> <td>POTASSIUM</td> <td>4.4 mmol/L</td > <td>3.5-5.3</td> </tr> <tr> <td>EST GFR (MDRD) </td> <td>> 60 mL/min</td> <td>> 59</td> </tr> <tr> <td>ANION GAP</td> <td>9 mmol/L</td> <td>5 -15</td> </tr> <tr> <td>EST CrCl (CG)</td> <td>& gt; 60 mL/min</td> <td>> 59</td> </tr> <tr> < td>GLUCOSE</td> <td>101 mg/dL</td> <td>70-99</td> </tr > <tr> <td>CALCIUM</td> <td>9.2 mg/dL</td> <td >8.5-10.1</td> </tr> <tr> <td>BLOOD UREA NITROGEN</td> <td>15 mg/dL</td> <td>7-20</td> </tr> <tr> <td>CREATININE</td> <td>0.7 mg/dL</td> <td>0.6-1.0</td> </tr> <tr> <td>SODIUM</td> <td>143 mmol/L</td> <td>135-148</td> </tr> <tr> <td>CHLORIDE</td> <td>109 mmol/L</td> <td>98-110</td> </tr> <tr> <td>AST/SGOT</td> <td>12 Units/L</td> <td>10-37</td> </tr> <tr> <td>ALT/SGPT</td> <td>20 Units/L</td> <td>< 66</td> </tr> <tr> <td>CARBON DIOXIDE< /td> <td>25 mmol/L</td> <td>21-32</td> </tr> <tr > <td>TOTAL PROTEIN</td> <td>7.7 gm/dL</td> <td>6.4- 8.2</td> </tr> <tr> <td>ALBUMIN</td> <td>4.0 gm/ dL</td> <td>3.4-5.0</td> </tr> <tr> <td>BILI TOTAL</td> <td>0.2 mg/dL</td> <td>0.0-1.0</td> </tr> <tr> <td>ALKALINE PHOSPHATASE TOTAL</td> <td>63 IU/L</td > <td>45-117</td> </tr> <tr> <th colspan="10"> Screen, Urine NPT - 05/20/17 14:39</th> </tr> <tr> <td> Screen, Urine NPT</td> <td>Negative NA</td> <td /> </tr> <tr> <th colspan="10">CBC W/DIFF - 11:40</th> </tr> <tr> <td>BASOPHIL #</td> <td >0.0 k/cumm</td> <td>0.0-0.2</td> </tr> <tr> <td >BASOPHIL %</td> <td>0.1 %</td> <td>0-1</td> </ tr> <tr> <td>COMMENT</td> <td>REVIEWED </td> < td /> </tr> <tr> <td>EOSINOPHIL #</td> <td>0.0 k /cumm</td> <td>0.1-0.5</td> </tr> <tr> <td> EOSINOPHIL %</td> <td>0.0 %</td> <td>2-4</td> < /tr> <tr> <td>GRANULOCYTE #</td> <td>7.5 k/cumm</td> <td>2.0-9.0</td> </tr> <tr> <td>GRANULOCYTE % </td> <td>85.1 %</td> <td>50-75</td> </tr> < tr> <td>LYMPHOCYTE #</td> <td>1.1 k/cumm</td> <td>1.0 -4.0</td> </tr> <tr> <td>LYMPHOCYTE %</td> < td>13.0 %</td> <td>20-30</td> </tr> <tr> <td >MEAN CELL HGB</td> <td>33.5 pg</td> <td>27.0-33.0</td> </tr> <tr> <td>MEAN CELL HGB CONCENTRATION</td> <td> 32.7 g/dL</td> <td>32.0-37.0</td> </tr> <tr> <td >MEAN CELL VOLUME</td> <td>102.5 fl</td> <td>80.0-100.0</td> </tr> <tr> <td>MONOCYTE #</td> <td>0.2 k/cumm</ td> <td>0.1-1.0</td> </tr> <tr> <td>MONOCYTE &# 37;</td> <td>1.8 %</td> <td>4-6</td> </tr> < tr> <td>RED BLOOD CELL</td> <td>4.03 m/cumm</td> <td> 4.00-6.00</td> </tr> <tr> <td>RED CELL DISTRIBUTION WIDTH </td> <td>12.7 %</td> <td>11.0-15.6</td> </tr> <tr> <td>WHITE BLOOD CELL</td> <td>8.8 k/cumm</td> <td>5.0-10.0</td> </tr> <tr> <td>HEMOGLOBIN</td> <td>13.5 gm/dL</td> <td>12.0-16.0</td> </tr> <tr> <td>HEMATOCRIT</td> <td>41.3 %</td> <td>37.0-47.0< /td> </tr> <tr> <td>PLATELET COUNT</td> <td>490 k/cumm</td> <td>150-450</td> </tr> <tr> <th colspan="10">METABOLIC PANEL, COMPREHN - 07/04/17 11:40</th> </tr> <tr> <td>POTASSIUM</td> <td>3.7 mmol/L</td> <td>3.5 -5.3</td> </tr> <tr> <td>EST GFR (MDRD)</td> <td >> 60 mL/min</td> <td>> 59</td> </tr> <tr> <td>ANION GAP</td> <td>13 mmol/L</td> <td>5-15</td> < /tr> <tr> <td>EST CrCl (CG)</td> <td>> 60 mL/min</td > <td>> 59</td> </tr> <tr> <td>GLUCOSE</td> <td>125 mg/dL</td> <td>70-99</td> </tr> <tr> <td>CALCIUM</td> <td>9.6 mg/dL</td> <td>8.5-10.1</td> </tr> <tr> <td>BLOOD UREA NITROGEN</td> <td>7 mg /dL</td> <td>7-20</td> </tr> <tr> <td>CREATININE </td> <td>0.7 mg/dL</td> <td>0.6-1.0</td> </tr> <tr> <td>SODIUM</td> <td>139 mmol/L</td> <td>135-148< /td> </tr> <tr> <td>CHLORIDE</td> <td>103 mmol/L </td> <td>98-110</td> </tr> <tr> <td>AST/SGOT</ td> <td>16 Units/L</td> <td>10-37</td> </tr> <tr > <td>ALT/SGPT</td> <td>18 Units/L</td> <td>< 66</ td> </tr> <tr> <td>CARBON DIOXIDE</td> <td>23 mmol/L</td> <td>21-32</td> </tr> <tr> <td>TOTAL PROTEIN</td> <td>8.6 gm/dL</td> <td>6.4-8.2</td> </tr> <tr> <td>ALBUMIN</td> <td>4.2 gm/dL</td> <td> 3.4-5.0</td> </tr> <tr> <td>BILI TOTAL</td> <td> 0.3 mg/dL</td> <td>0.0-1.0</td> </tr> <tr> <td> ALKALINE PHOSPHATASE TOTAL</td> <td>62 IU/L</td> <td>45-117</ td> </tr> <tr> <th colspan="10">LIPASE - 07/04/17 11:40</ th> </tr> <tr> <td>LIPASE</td> <td>97 Units/L</ td> <td>73-393</td> </tr> <tr> <th colspan="10"> TEST, SERUM - 07/04/17 11:40</th> </tr> <tr> < td> TEST, SERUM</td> <td>NEGATIVE </td> <td>NEGATIVE< /td> </tr> <tr> <th colspan="10">AB H.PYLORI SCREEN - 11:40</th> </tr> <tr> <td>AB H.PYLORI SCREEN</td> <td>NEGATIVE </td> <td>NEGATIVE</td> </tr> <tr> < colspan="10">URINALYSIS, ROUTINE - 07/04/17 13:45</th> </tr > <tr> <td>UA LEUKOCYTE ESTERASE DIPSTICK</td> <td> NEGATIVE </td> <td>NEGATIVE</td> </tr> <tr> <td> UA NITRITE DIPSTICK</td> <td>NEGATIVE </td> <td>NEGATIVE</td> </tr> <tr> <td>UA PROTEIN DIPSTICK</td> <td> NEGATIVE </td> <td>NEGATIVE</td> </tr> <tr> <td> UA GLUCOSE DIPSTICK</td> <td>NEGATIVE </td> <td>NEGATIVE</td> </tr> <tr> <td>UA KETONE DIPSTICK</td> <td> NEGATIVE </td> <td>NEGATIVE</td> </tr> <tr> <td> UA UROBILINOGEN DIPSTICK</td> <td>NORMAL </td> <td>NORMAL</td > </tr> <tr> <td>UA BILIRUBIN DIPSTICK</td> <td> NEGATIVE </td> <td>NEGATIVE</td> </tr> <tr> <td> UA BLOOD DIPSTICK</td> <td>1+ </td> <td>NEGATIVE</td> < /tr> <tr> <td>UA SPECIFIC GRAVITY</td> <td>1.015 </td> <td>1.015-1.025</td> </tr> <tr> <td>UR PH</td> <td>7.0 </td> <td>5.0-7.0</td> </tr> <tr> <th colspan="10">UA MICROSCOPIC - 07/04/17 13:45</th> </tr> < tr> <td>UA BACTERIA</td> <td>2+ </td> <td>NEGATIVE</ td> </tr> <tr> <td>UA EPITHELIAL CELLS</td> <td> 3+ epi/hpf</td> <td>0 - 1+</td> </tr> <tr> <td> UA RBC</td> <td>0-3 rbc/hpf</td> <td>0 - 3</td> </tr> <tr> <td>UA VOLUME FOR EXAM</td> <td>12.0 mL</td> <td>(12mL STD)</td> </tr> <tr> <td>UA WBC</td> <td>0 wbc/hpf</td> <td>0 - 5</td> </tr> <tr> < colspan="10">Automated blood complete blood count (hemogram) panel - 04/09 11:55</th> </tr> <tr> <td>Blood leukocytes automated count (number/volume)</td> <td>4.9 10*3/uL</td> <td> 4.3-11.0</td> </tr> <tr> <td>Blood erythrocytes automated count (number/volume)</td> <td>3.43 10*6/uL</td> <td >4.35-5.85</td> </tr> <tr> <td>Venous blood hemoglobin measurement (mass/volume)</td> <td>11.8 g/dL</td> <td>11.5- 16.0</td> </tr> <tr> <td>Blood hematocrit (volume fraction)</td> <td>36 %</td> <td>35-52</td> </tr> <tr> <td>Automated erythrocyte mean corpuscular volume</td> <td>104 [foz_us]</td> <td>80-99</td> </tr> <tr> <td>Automated erythrocyte mean corpuscular hemoglobin (mass per erythrocyte)</td> <td>34 pg</td> <td>25-34</td> </tr> <tr> <td>Automated erythrocyte mean corpuscular hemoglobin concentration measurement (mass/volume)</td> <td>33 g/dL</td> <td>32-36</td> </tr> <tr> <td>Automated erythrocyte distribution width ratio</td> <td>13.3 %</td> <td>10.0- 14.5</td> </tr> <tr> <td>Automated blood platelet count ( count/volume)</td> <td>302 10*3/uL</td> <td>130-400</td> </tr> <tr> <td>Automated blood platelet mean volume measurement</td> <td>8.5 [foz_us]</td> <td>7.4-10.4</td> </tr> <tr> <th colspan="10">Serum or plasma choriogonadotropin ( test) detection - 08/02/17 11:55</th> </tr > <tr> <td>Serum or plasma choriogonadotropin ( test) detection</td> <td>NEGATIVE </td> <td>NEGATIVE</td> </ tr> <tr> <th colspan="10">Liver function panel (serum or plasma alk phos, alb, total and direct bili, total protein, ALT, AST) - 08/02/17 11:55< /th> </tr> <tr> <td>Serum or plasma total bilirubin measurement (mass/volume)</td> <td>0.2 mg/dL</td> <td>0.1-1.0< /td> </tr> <tr> <td>Serum or plasma alkaline phosphatase measurement (enzymatic activity/volume)</td> <td>45 U/L</td> < td>40-136</td> </tr> <tr> <td>Serum or plasma aspartate aminotransferase measurement (enzymatic activity/volume)</td> <td>19 U/ L</td> <td>5-34</td> </tr> <tr> <td>Serum or plasma alanine aminotransferase measurement (enzymatic activity/volume)</td> <td>12 U/L</td> <td>0-55</td> </tr> <tr> <td>Serum or plasma protein measurement (mass/volume)</td> <td>6.9 g/dL </td> <td>6.4-8.2</td> </tr> <tr> <td>Serum or plasma albumin measurement (mass/volume)</td> <td>4.3 g/dL</td> <td>3.2-4.5</td> </tr> <tr> <td>Bilirubin direct</td> <td>< mg/dL</td> <td>0.0-0.3</td> </tr> <tr > <td>Serum or plasma indirect bilirubin measurement (mass/volume)</td > <td>0.1 mg/dL</td> <td>NRG</td> </tr> <tr> < colspan="10">Whole blood basic metabolic panel - 08/02/17 11:55</th> </tr> <tr> <td>Serum or plasma sodium measurement (moles /volume)</td> <td>137 mmol/L</td> <td>135-145</td> </tr > <tr> <td>Serum or plasma potassium measurement (moles/volume)< /td> <td>4.1 mmol/L</td> <td>3.6-5.0</td> </tr> <tr> <td>Serum or plasma chloride measurement (moles/volume)</td> <td>106 mmol/L</td> <td>98-107</td> </tr> <tr> <td>Carbon dioxide</td> <td>22 mmol/L</td> <td>21-32</td > </tr> <tr> <td>Serum or plasma anion gap determination (moles/volume)</td> <td>9 mmol/L</td> <td>5-14</td> </ tr> <tr> <td>Serum or plasma urea nitrogen measurement (mass/ volume)</td> <td>10 mg/dL</td> <td>7-18</td> </tr> <tr> <td>Serum or plasma creatinine measurement (mass/volume)</td> <td>0.65 mg/dL</td> <td>0.60-1.30</td> </tr> < tr> <td>Serum or plasma urea nitrogen/creatinine mass ratio</td> <td>15 </td> <td>NRG</td> </tr> <tr> <td> Serum or plasma creatinine measurement with calculation of estimated glomerular filtration rate</td> <td>> </td> <td>NRG</td> </tr> <tr> <td>Serum or plasma glucose measurement (mass/volume)</td > <td>78 mg/dL</td> <td>70-105</td> </tr> <tr> <td>Serum or plasma calcium measurement (mass/volume)</td> <td >8.9 mg/dL</td> <td>8.5-10.1</td> </tr> <tr> < th colspan="10">Serum or plasma ethanol measurement (mass/volume) - 08/02/17 11: 55</th> </tr> <tr> <td>Serum or plasma ethanol measurement (mass/volume)</td> <td>< mg/dL</td> <td><10< /td> </tr> <tr> <th colspan="10">Serum or plasma thyrotropin measurement by detection limit <=0.05 miu/l (units/volume) - 04/09 11:55</th> </tr> <tr> <td>Serum or plasma thyrotropin measurement by detection limit <=0.05 miu/l (units/volume)</td> <td>2.23 u[iU]/mL</td> <td>0.35-4.94</td> </tr> <tr> <th colspan="10">Complete urinalysis with reflex to culture - 04/ 12/18 13:17</th> </tr> <tr> <td>Urine color determination </td> <td>YELLOW </td> <td>NRG</td> </tr> <tr> <td>Urine clarity determination</td> <td>CLEAR </td> <td>NRG</td> </tr> <tr> <td>Urine pH measurement by test strip</td> <td>5 </td> <td>5-9</td> </tr> <tr> <td>Specific gravity of urine by test strip</td> <td>1.005 </ td> <td>1.016-1.022</td> </tr> <tr> <td>Urine protein assay by test strip, semi-quantitative</td> <td>NEGATIVE </td> <td>NEGATIVE</td> </tr> <tr> <td>Urine glucose detection by automated test strip</td> <td>NEGATIVE </td> <td> NEGATIVE</td> </tr> <tr> <td>Erythrocytes detection in urine sediment by light microscopy</td> <td>NEGATIVE </td> <td >NEGATIVE</td> </tr> <tr> <td>Urine ketones detection by automated test strip</td> <td>NEGATIVE </td> <td>NEGATIVE</td > </tr> <tr> <td>Urine nitrite detection by test strip</ td> <td>NEGATIVE </td> <td>NEGATIVE</td> </tr> < tr> <td>Urine total bilirubin detection by test strip</td> <td >NEGATIVE </td> <td>NEGATIVE</td> </tr> <tr> <td >Urine urobilinogen measurement by automated test strip (mass/volume)</td> <td>NORMAL </td> <td>NORMAL</td> </tr> <tr> <td>Urine leukocyte esterase detection by dipstick</td> <td>NEGATIVE </td> <td>NEGATIVE</td> </tr> <tr> <td> Automated urine sediment erythrocyte count by microscopy (number/high power field)</td> <td>NONE </td> <td>NRG</td> </tr> < tr> <td>Automated urine sediment leukocyte count by microscopy (number/ high power field)</td> <td>RARE </td> <td>NRG</td> </tr > <tr> <td>Bacteria detection in urine sediment by light microscopy</td> <td>TRACE </td> <td>NRG</td> </tr> <tr> <td>Squamous epithelial cells detection in urine sediment by light microscopy</td> <td>2-5 </td> <td>NRG</td> </tr> <tr> <td>Crystals detection in urine sediment by light microscopy</td> <td>NONE </td> <td>NRG</td> </tr> <tr> <td>Casts detection in urine sediment by light microscopy</td> <td>NONE </td> <td>NRG</td> </tr> <tr> <td>Mucus detection in urine sediment by light microscopy</td> <td> NEGATIVE </td> <td>NRG</td> </tr> <tr> <td> Complete urinalysis with reflex to culture</td> <td>NO </td> < td>NRG</td> </tr> <tr> < colspan="10">Urine drug screening test - 08/02/17 13:17</th> </tr> <tr> <td> Urine phencyclidine detection by screening method</td> <td>NEGATIVE </ td> <td>NEGATIVE</td> </tr> <tr> <td>Urine benzodiazepines detection by screening method</td> <td>NEGATIVE </td> <td>NEGATIVE</td> </tr> <tr> <td>Urine cocaine detection</td> <td>NEGATIVE </td> <td>NEGATIVE</td> </ tr> <tr> <td>Urine amphetamines detection by screening method</ td> <td>NEGATIVE </td> <td>NEGATIVE</td> </tr> < tr> <td>Urine methamphetamine detection by screening method</td> <td>NEGATIVE </td> <td>NEGATIVE</td> </tr> <tr> <td>Urine cannabinoids detection by screening method</td> <td> NEGATIVE </td> <td>NEGATIVE</td> </tr> <tr> <td> Urine opiates detection by screening method</td> <td>NEGATIVE </td> <td>NEGATIVE</td> </tr> <tr> <td>Urine barbiturates detection</td> <td>NEGATIVE </td> <td>NEGATIVE</ td> </tr> <tr> <td>Screening urine tricyclic antidepressants detection</td> <td>POSITIVE </td> <td>NEGATIVE </td> </tr> <tr> <td>Urine methadone detection by screening method</td> <td>NEGATIVE </td> <td>NEGATIVE</td> </tr> <tr> <td>Urine oxycodone detection</td> <td> NEGATIVE </td> <td>NEGATIVE</td> </tr> <tr> <td> Urine propoxyphene detection</td> <td>NEGATIVE </td> <td> NEGATIVE</td> </tr> <tr> < colspan="10">Complete urinalysis with reflex to culture - 08/18/17 11:40</th> </tr> <tr > <td>Urine color determination</td> <td>YELLOW </td> <td>NRG</td> </tr> <tr> <td>Urine clarity determination </td> <td>CLEAR </td> <td>NRG</td> </tr> <tr> <td>Urine pH measurement by test strip</td> <td>7 </td> <td>5-9</td> </tr> <tr> <td>Specific gravity of urine by test strip</td> <td>1.010 </td> <td>1.016-1.022</td> </tr> <tr> <td>Urine protein assay by test strip, semi- quantitative</td> <td>NEGATIVE </td> <td>NEGATIVE</td> </tr> <tr> <td>Urine glucose detection by automated test strip</ td> <td>NEGATIVE </td> <td>NEGATIVE</td> </tr> < tr> <td>Erythrocytes detection in urine sediment by light microscopy</ td> <td>5+ </td> <td>NEGATIVE</td> </tr> <tr> <td>Urine ketones detection by automated test strip</td> <td> NEGATIVE </td> <td>NEGATIVE</td> </tr> <tr> <td> Urine nitrite detection by test strip</td> <td>NEGATIVE </td> <td>NEGATIVE</td> </tr> <tr> <td>Urine total bilirubin detection by test strip</td> <td>NEGATIVE </td> <td>NEGATIVE</ td> </tr> <tr> <td>Urine urobilinogen measurement by automated test strip (mass/volume)</td> <td>NORMAL </td> <td> NORMAL</td> </tr> <tr> <td>Urine leukocyte esterase detection by dipstick</td> <td>1+ </td> <td>NEGATIVE</td> </tr> <tr> <td>Automated urine sediment erythrocyte count by microscopy (number/high power field)</td> <td> [HPF]</td> < td>NRG</td> </tr> <tr> <td>Automated urine sediment leukocyte count by microscopy (number/high power field)</td> <td> [HPF] </td> <td>NRG</td> </tr> <tr> <td>Bacteria detection in urine sediment by light microscopy</td> <td>NEGATIVE </td > <td>NRG</td> </tr> <tr> <td>Squamous epithelial cells detection in urine sediment by light microscopy</td> < td>5-10 </td> <td>NRG</td> </tr> <tr> <td> Crystals detection in urine sediment by light microscopy</td> <td>NONE </td> <td>NRG</td> </tr> <tr> <td>Casts detection in urine sediment by light microscopy</td> <td>NONE </td> <td>NRG</td> </tr> <tr> <td>Mucus detection in urine sediment by light microscopy</td> <td>NEGATIVE </td> <td >NRG</td> </tr> <tr> <td>Complete urinalysis with reflex to culture</td> <td>NO </td> <td>NRG</td> </tr> <tr> < colspan="10">Urine drug screening test - 08/18/17 11:40</th> </tr> <tr> <td>Urine phencyclidine detection by screening method</td> <td>NEGATIVE </td> <td>NEGATIVE</td> </tr> <tr> <td>Urine benzodiazepines detection by screening method</td> <td>NEGATIVE </td> <td>NEGATIVE</td> </tr> <tr> <td>Urine cocaine detection</td> <td> NEGATIVE </td> <td>NEGATIVE</td> </tr> <tr> <td> Urine amphetamines detection by screening method</td> <td>NEGATIVE </td > <td>NEGATIVE</td> </tr> <tr> <td>Urine methamphetamine detection by screening method</td> <td>NEGATIVE </td> <td>NEGATIVE</td> </tr> <tr> <td>Urine cannabinoids detection by screening method</td> <td>NEGATIVE </td> <td>NEGATIVE</td> </tr> <tr> <td>Urine opiates detection by screening method</td> <td>POSITIVE </td> <td> NEGATIVE</td> </tr> <tr> <td>Urine barbiturates detection </td> <td>NEGATIVE </td> <td>NEGATIVE</td> </tr> <tr> <td>Screening urine tricyclic antidepressants detection</td> <td>NEGATIVE </td> <td>NEGATIVE</td> </tr> <tr> <td>Urine methadone detection by screening method</td> <td> NEGATIVE </td> <td>NEGATIVE</td> </tr> <tr> <td> Urine oxycodone detection</td> <td>NEGATIVE </td> <td>NEGATIVE </td> </tr> <tr> <td>Urine propoxyphene detection</td> <td>NEGATIVE </td> <td>NEGATIVE</td> </tr> <tr> < colspan="10">Complete blood count (CBC) with automated white blood cell (WBC) differential - 08/18/17 12:30</th> </tr> <tr> <td>Blood leukocytes automated count (number/volume)</td> <td>7.0 10*3/ uL</td> <td>4.3-11.0</td> </tr> <tr> <td>Blood erythrocytes automated count (number/volume)</td> <td>3.83 10*6/uL</td > <td>4.35-5.85</td> </tr> <tr> <td>Venous blood hemoglobin measurement (mass/volume)</td> <td>13.0 g/dL</td> <td>11.5-16.0</td> </tr> <tr> <td>Blood hematocrit (volume fraction)</td> <td>39 %</td> <td>35-52</td> </tr> <tr> <td>Automated erythrocyte mean corpuscular volume</ td> <td>101 [foz_us]</td> <td>80-99</td> </tr> < tr> <td>Automated erythrocyte mean corpuscular hemoglobin (mass per erythrocyte)</td> <td>34 pg</td> <td>25-34</td> </tr> <tr> <td>Automated erythrocyte mean corpuscular hemoglobin concentration measurement (mass/volume)</td> <td>34 g/dL</td> <td>32-36</td> </tr> <tr> <td>Automated erythrocyte distribution width ratio</td> <td>13.2 %</td> <td>10.0- 14.5</td> </tr> <tr> <td>Automated blood platelet count ( count/volume)</td> <td>414 10*3/uL</td> <td>130-400</td> </tr> <tr> <td>Automated blood platelet mean volume measurement</td> <td>8.0 [foz_us]</td> <td>7.4-10.4</td> </tr> <tr> <td>Automated blood neutrophils/100 leukocytes</td > <td>66 %</td> <td>42-75</td> </tr> <tr> <td>Automated blood lymphocytes/100 leukocytes</td> <td>24 &#37 ;</td> <td>12-44</td> </tr> <tr> <td>Blood monocytes/100 leukocytes</td> <td>8 %</td> <td>0-12</td> </tr> <tr> <td>Automated blood eosinophils/100 leukocytes </td> <td>1 %</td> <td>0-10</td> </tr> <tr> <td>Automated blood basophils/100 leukocytes</td> <td>0 % </td> <td>0-10</td> </tr> <tr> <td>Blood neutrophils automated count (number/volume)</td> <td>4.7 10*3</td> <td>1.8-7.8</td> </tr> <tr> <td>Blood lymphocytes automated count (number/volume)</td> <td>1.7 10*3</td> <td>1.0 -4.0</td> </tr> <tr> <td>Blood monocytes automated count (number/volume)</td> <td>0.6 10*3</td> <td>0.0-1.0</td> </tr> <tr> <td>Automated eosinophil count</td> <td> 0.1 10*3/uL</td> <td>0.0-0.3</td> </tr> <tr> <td >Automated blood basophil count (count/volume)</td> <td>0.0 10*3/uL</td > <td>0.0-0.1</td> </tr> <tr> < colspan="10"> Comprehensive metabolic panel - 08/18/17 12:30</th> </tr> <tr> <td>Serum or plasma sodium measurement (moles/volume)</td> <td> 138 mmol/L</td> <td>135-145</td> </tr> <tr> <td> Serum or plasma potassium measurement (moles/volume)</td> <td>4.0 mmol/ L</td> <td>3.6-5.0</td> </tr> <tr> <td>Serum or plasma chloride measurement (moles/volume)</td> <td>106 mmol/L</td> <td>98-107</td> </tr> <tr> <td>Carbon dioxide</td > <td>25 mmol/L</td> <td>21-32</td> </tr> <tr> <td>Serum or plasma anion gap determination (moles/volume)</td> <td>7 mmol/L</td> <td>5-14</td> </tr> <tr> < td>Serum or plasma urea nitrogen measurement (mass/volume)</td> <td>9 mg/dL</td> <td>7-18</td> </tr> <tr> <td>Serum or plasma creatinine measurement (mass/volume)</td> <td>0.67 mg/dL</td > <td>0.60-1.30</td> </tr> <tr> <td>Serum or plasma urea nitrogen/creatinine mass ratio</td> <td>13 </td> < td>NRG</td> </tr> <tr> <td>Serum or plasma creatinine measurement with calculation of estimated glomerular filtration rate</td> <td>> </td> <td>NRG</td> </tr> <tr> <td> Serum or plasma glucose measurement (mass/volume)</td> <td>92 mg/dL</td > <td>70-105</td> </tr> <tr> <td>Serum or plasma calcium measurement (mass/volume)</td> <td>9.4 mg/dL</td> <td>8.5-10.1</td> </tr> <tr> <td>Serum or plasma total bilirubin measurement (mass/volume)</td> <td>0.4 mg/dL</td> <td>0.1-1.0</td> </tr> <tr> <td>Serum or plasma alkaline phosphatase measurement (enzymatic activity/volume)</td> <td> 57 U/L</td> <td>40-136</td> </tr> <tr> <td> Serum or plasma aspartate aminotransferase measurement (enzymatic activity/ volume)</td> <td>16 U/L</td> <td>5-34</td> </tr> <tr> <td>Serum or plasma alanine aminotransferase measurement ( enzymatic activity/volume)</td> <td>13 U/L</td> <td>0-55</td> </tr> <tr> <td>Serum or plasma protein measurement (mass /volume)</td> <td>7.8 g/dL</td> <td>6.4-8.2</td> </tr> <tr> <td>Serum or plasma albumin measurement (mass/volume)</td > <td>4.6 g/dL</td> <td>3.2-4.5</td> </tr> <tr> <th colspan="10">Lipase - 08/18/17 12:30</th> </tr> <tr > <td>Lipase</td> <td>13 U/L</td> <td>8-78</td> </tr> <tr> <th colspan="10">Serum or plasma C reactive protein measurement (mass/volume) - 08/18/17 12:30</th> </tr> <tr > <td>Serum or plasma C reactive protein measurement (mass/volume)</td > <td>0.04 mg/dL</td> <td>0.00-0.50</td> </tr> < tr> <th colspan="10">Serum or plasma ethanol measurement (mass/volume) - 08/18/17 12:30</th> </tr> <tr> <td>Serum or plasma ethanol measurement (mass/volume)</td> <td>< mg/dL</td> <td ><10</td> </tr> <tr> <th colspan="10">Ct, Ng, Trich vag by AV - 12/14/17 08:00</th> </tr> <tr> <td>Trich vag by AV</td> <td>TNP </td> <td /> </tr> <tr> <td>Chlamydia by AV</td> <td>TNP </td> <td /> </tr> <tr> <td>Gonococcus by AV</td> <td>TNP </td> <td /> </tr> <tr> < colspan="10">Thyroid Stimulating Hormone - 12/14/17 08:00</th> </tr> <tr> <td> TSH</td> <td>1.36 mIU/mL</td> <td>0.32-5.00</td> </tr> <tr> < colspan="10">Urine Culture - 12/14/17 08:00</th> </tr> <tr> <td>MEDIA PLATED</td> <td>Setup at 15:06 on 12/14/2017 </td> <td /> </tr> <tr> <td> CULTURE SOURCE</td> <td>clean [id number] </td> <td /> </tr> <tr> < colspan="10">Sensi - 12/14/17 08:00</th> < /tr> <tr> <td>FINAL CULTURE RESULTS</td> <td> Escherichia coli (Isolate 1) </td> <td /> </tr> <tr> <td>Ampicillin/Sulbactam</td> <td><=8/4 </td> <td /> </tr> <tr> <td>Ampicillin</td> <td><=8 </td > <td /> </tr> <tr> <td>Amoxicillin/K Clavulanate</td> <td><=8/4 </td> <td /> </tr> <tr> <td>Ceftriaxone</td> <td><=8 </td> <td /> </tr> <tr> <td>Ciprofloxacin</td> <td><=1 </ td> <td /> </tr> <tr> <td>Nitrofurantoin</td> <td><=32 </td> <td /> </tr> <tr> <td> Gentamicin</td> <td><=4 </td> <td /> </tr> < tr> <td>Levofloxacin</td> <td><=2 </td> <td /> </tr> <tr> <td>Trimethoprim/ Sulfamethoxazole</td> <td><=2/38 </td> <td /> </tr> <tr> <td> Tetracycline</td> <td><=4 </td> <td /> </tr> <tr> <td>Amikacin</td> <td><=16 </td> <td /> </tr> <tr> <td>Aztreonam</td> <td><=8 </td> <td /> </tr> <tr> <td>Ceftazidime</td> <td> <=1 </td> <td /> </tr> <tr> <td>Ceftazidime/ K Clavulanate</td> <td><=0.25 </td> <td /> </tr> <tr> <td>Cephalothin</td> <td>16 </td> <td /> </tr> <tr> <td>Cefotaxime</td> <td><=2 </td> <td /> </tr> <tr> <td>Cefotaxime/K Clavulanate</ td> <td><=0.5 </td> <td /> </tr> <tr> <td>Cefoxitin</td> <td><=8 </td> <td /> </tr> <tr> <td>Cefazolin</td> <td><=8 </td> <td /> </tr> <tr> <td>Cefepime</td> <td><=8 </td> <td /> </tr> <tr> <td>Cefuroxime</td> < td><=4 </td> <td /> </tr> <tr> <td>Ertapenem< /td> <td><=1 </td> <td /> </tr> <tr> <td>Imipenem</td> <td><=4 </td> <td /> </tr> <tr> <td>Meropenem</td> <td><=4 </td> <td /> </tr> <tr> <td>Piperacillin/Tazobactam</td> <td>& lt;=16 </td> <td /> </tr> <tr> <td>Piperacillin< /td> <td><=16 </td> <td /> </tr> <tr> <td>Tigecycline</td> <td><=2 </td> <td /> </tr> <tr> <td>Tobramycin</td> <td><=4 </td> <td /> </tr> </tbody> </table> </text> <entry> <organizer moodCode="EVN" classCode="BATTERY"> <templateId root= "[id number]" /> <id nullFlavor="NA" /> <code codeSystem="local" code="CBCD" displayName="CBC W/DIFF" /> <statusCode code ="completed" /> <component> <observation moodCode="EVN" classCode= "OBS"> <templateId root="[id number]" /> < id nullFlavor="NA" /> <code codeSystem="local" code="EO#" displayName= "EOSINOPHIL #" /> <statusCode code="completed" /> < effectiveTime value="[id number]" /> <value unit="k/cumm" xsi:type="PQ " value="0.2" /> <referenceRange> <observationRange> <text>0.1-0.5</text> </observationRange> </ referenceRange> </observation> </component> <component> <observation moodCode="EVN" classCode="OBS"> <templateId root= "[id number]" /> <id nullFlavor="NA" /> < code codeSystem="local" code="EO%" displayName="EOSINOPHIL %" /> <statusCode code="completed" /> <effectiveTime value="[id number]" /> <value unit="%" xsi:type="PQ" value="2" /> < referenceRange> <observationRange> <text>2-4</text> </observationRange> </referenceRange> </observation> </component> <component> <observation moodCode="EVN" classCode= "OBS"> <templateId root="[id number]" /> < id nullFlavor="NA" /> <code codeSystem="local" code="GR#" displayName= "GRANULOCYTE #" /> <statusCode code="completed" /> < effectiveTime value="[id number]" /> <value unit="k/cumm" xsi:type="PQ " value="4.1" /> <referenceRange> <observationRange> <text>2.0-9.0</text> </observationRange> </ referenceRange> </observation> </component> <component> <observation moodCode="EVN" classCode="OBS"> <templateId root= "[id number]" /> <id nullFlavor="NA" /> < code codeSystem="local" code="GR%" displayName="GRANULOCYTE %" /> <statusCode code="completed" /> <effectiveTime value="[id number] " /> <value unit="%" xsi:type="PQ" value="52" /> < referenceRange> <observationRange> <text>50-75</text> </observationRange> </referenceRange> </observation> </component> <component> <observation moodCode="EVN" classCode= "OBS"> <templateId root="[id number]" /> < id nullFlavor="NA" /> <code codeSystem="local" code="LY#" displayName= "LYMPHOCYTE #" /> <statusCode code="completed" /> < effectiveTime value="423442029840" /> <value unit="k/cumm" xsi:type="PQ " value="3.1" /> <referenceRange> <observationRange> <text>1.0-4.0</text> </observationRange> </ referenceRange> </observation> </component> <component> <observation moodCode="EVN" classCode="OBS"> <templateId root= "[id number]" /> <id nullFlavor="NA" /> < code codeSystem="local" code="LY%" displayName="LYMPHOCYTE %" /> <statusCode code="completed" /> <effectiveTime value="[id number]" /> <value unit="%" xsi:type="PQ" value="39" /> < interpretationCode codeSystem="local" code="*" /> <referenceRange> <observationRange> <text>20-30</text> </ observationRange> </referenceRange> </observation> </ component> <component> <observation moodCode="EVN" classCode="OBS"> <templateId root="[id number]" /> <id nullFlavor="NA" /> <code codeSystem="local" code="MCH" displayName= "MEAN CELL HGB" /> <statusCode code="completed" /> < effectiveTime value="[id number]" /> <value unit="pg" xsi:type="PQ" value="33.7" /> <interpretationCode codeSystem="local" code="*" /> <referenceRange> <observationRange> <text>27.0- 33.0</text> </observationRange> </referenceRange> </ observation> </component> <component> <observation moodCode= "EVN" classCode="OBS"> <templateId root="[id number] " /> <id nullFlavor="NA" /> <code codeSystem="local" code= "[facility]" displayName="MEAN CELL HGB CONCENTRATION" /> <statusCode code= "completed" /> <effectiveTime value="[id number]" /> <value unit="g/dL" xsi:type="PQ" value="33.1" /> <referenceRange> < observationRange> <text>32.0-37.0</text> </ observationRange> </referenceRange> </observation> </ component> <component> <observation moodCode="EVN" classCode="OBS"> <templateId root="[id number]" /> <id nullFlavor="NA" /> <code codeSystem="local" code="MCV" displayName= "MEAN CELL VOLUME" /> <statusCode code="completed" /> < effectiveTime value="[id number]" /> <value unit="fl" xsi:type="PQ" value="101.9" /> <interpretationCode codeSystem="local" code="*" /> <referenceRange> <observationRange> <text>80.0- 100.0</text> </observationRange> </referenceRange> </ observation> </component> <component> <observation moodCode= "EVN" classCode="OBS"> <templateId root="[id number] " /> <id nullFlavor="NA" /> <code codeSystem="local" code="MO# " displayName="MONOCYTE #" /> <statusCode code="completed" /> <effectiveTime value="[id number]" /> <value unit="k/cumm" xsi:type= "PQ" value="0.5" /> <referenceRange> <observationRange> <text>0.1-1.0</text> </observationRange> </ referenceRange> </observation> </component> <component> <observation moodCode="EVN" classCode="OBS"> <templateId root= "[id number]" /> <id nullFlavor="NA" /> < code codeSystem="local" code="MO%" displayName="MONOCYTE %" /> <statusCode code="completed" /> <effectiveTime value="[id number]" /> <value unit="%" xsi:type="PQ" value="7" /> < interpretationCode codeSystem="local" code="*" /> <referenceRange> <observationRange> <text>4-6</text> </ observationRange> </referenceRange> </observation> </ component> <component> <observation moodCode="EVN" classCode="OBS"> <templateId root="[id number]..22.4.2" /> <id nullFlavor="NA" /> <code codeSystem="local" code="RBC" displayName=" RED BLOOD CELL" /> <statusCode code="completed" /> < effectiveTime value="[id number]" /> <value unit="m/cumm" xsi:type="PQ " value="3.62" /> <interpretationCode codeSystem="local" code="*" /> <referenceRange> <observationRange> <text>4.00- 6.00</text> </observationRange> </referenceRange> </ observation> </component> <component> <observation moodCode= "EVN" classCode="OBS"> <templateId root="[id number].2 " /> <id nullFlavor="NA" /> <code codeSystem="local" code="RDW " displayName="RED CELL DISTRIBUTION WIDTH" /> <statusCode code= "completed" /> <effectiveTime value="[id number]" /> <value unit="%" xsi:type="PQ" value="12.3" /> <referenceRange> <observationRange> <text>11.0-15.6</text> </ observationRange> </referenceRange> </observation> </ component> <component> <observation moodCode="EVN" classCode="OBS"> <templateId root="216.840.1.049603.10.22.4.2" /> <id nullFlavor="NA" /> <code codeSystem="local" code="WBC" displayName= "WHITE BLOOD CELL" /> <statusCode code="completed" /> < effectiveTime value="[id number]" /> <value unit="k/cumm" xsi:type="PQ " value="8.0" /> <referenceRange> <observationRange> <text>5.0-10.0</text> </observationRange> </ referenceRange> </observation> </component> <component> <observation moodCode="EVN" classCode="OBS"> <templateId root= "06.08.840.1.496692.02.09.22.4.2" /> <id nullFlavor="NA" /> < code codeSystem="local" code="HGBT" displayName="HEMOGLOBIN" /> < statusCode code="completed" /> <effectiveTime value="269518648193" /> <value unit="gm/dL" xsi:type="PQ" value="12.2" /> < referenceRange> <observationRange> <text>12.0-16.0</text > </observationRange> </referenceRange> </observation > </component> <component> <observation moodCode="EVN" classCode="OBS"> <templateId root="16.840.1.649549.22.4.2" /> <id nullFlavor="NA" /> <code codeSystem="local" code="HCTT" displayName="HEMATOCRIT" /> <statusCode code="completed" /> < effectiveTime value="404911503014" /> <value unit="%" xsi:type="PQ " value="36.9" /> <interpretationCode codeSystem="local" code="*" /> <referenceRange> <observationRange> <text>37.0- 47.0</text> </observationRange> </referenceRange> </ observation> </component> <component> <observation moodCode= "EVN" classCode="OBS"> <templateId root="840.1.024982.02.09.22.4.2 " /> <id nullFlavor="NA" /> <code codeSystem="local" code="PLT " displayName="PLATELET COUNT" /> <statusCode code="completed" /> <effectiveTime value="603455109364" /> <value unit="k/cumm" xsi: type="PQ" value="213" /> <referenceRange> <observationRange > <text>150-450</text> </observationRange> </ referenceRange> </observation> </component> </organizer> </entry > <entry> <organizer moodCode="EVN" classCode="BATTERY"> <templateId root="840.1.707519.02.09.22.4.1" /> <id nullFlavor="NA" /> <code codeSystem="local" code="SEDWES" displayName="SED RATE WESTERGREN" /> < statusCode code="completed" /> <component> <observation moodCode= "EVN" classCode="OBS"> <templateId root="840.1.018750.02.09.22.4.2 " /> <id nullFlavor="NA" /> <code codeSystem="local" code= "SEDWES" displayName="SED RATE WESTERGREN" /> <statusCode code= "completed" /> <effectiveTime value="403319570099" /> <value unit="mm/hr" xsi:type="PQ" value="12" /> <referenceRange> < observationRange> <text>0-20</text> </observationRange> </referenceRange> </observation> </component> </ organizer> </entry> <entry> <organizer moodCode="EVN" classCode="BATTERY"> <templateId root="06.08.840.1.669944.02.09.22.4.1" /> <id nullFlavor= "NA" /> <code codeSystem="local" code="METABC" displayName="METABOLIC PANEL , COMPREHN" /> <statusCode code="completed" /> <component> < observation moodCode="EVN" classCode="OBS"> <templateId root= "06.08.840.1.763878.10..4.2" /> <id nullFlavor="NA" /> < code codeSystem="local" code="K" displayName="POTASSIUM" /> < statusCode code="completed" /> <effectiveTime value="238453991325" /> <value unit="mmol/L" xsi:type="PQ" value="4.1" /> < referenceRange> <observationRange> <text>3.5-5.3</text> </observationRange> </referenceRange> </observation > </component> <component> <observation moodCode="EVN" classCode="OBS"> <templateId root="06.08.840.1.242640.02.09.22.4.2" /> <id nullFlavor="NA" /> <code codeSystem="local" code="eGFR" displayName="EST GFR (MDRD)" /> <statusCode code="completed" /> <effectiveTime value="860254989693" /> <value unit="mL/min" xsi:type ="PQ" value="> 60" /> <referenceRange> <observationRange > <text>> 59</text> </observationRange> </ referenceRange> </observation> </component> <component> <observation moodCode="EVN" classCode="OBS"> <templateId root= "16.840.1.088674.10..22.4.2" /> <id nullFlavor="NA" /> < code codeSystem="local" code="GAP" displayName="ANION GAP" /> < statusCode code="completed" /> <effectiveTime value="741415321953" /> <value unit="mmol/L" xsi:type="PQ" value="6" /> < referenceRange> <observationRange> <text>5-15</text> </observationRange> </referenceRange> </observation> </component> <component> <observation moodCode="EVN" classCode= "OBS"> <templateId root="06.08.840.1.101988.02.09.22.4.2" /> < id nullFlavor="NA" /> <code codeSystem="local" code="eCrCl" displayName ="EST CrCl (CG)" /> <statusCode code="completed" /> < effectiveTime value="445917164579" /> <value unit="mL/min" xsi:type="PQ " value="> 60" /> <referenceRange> <observationRange> <text>> 59</text> </observationRange> </ referenceRange> </observation> </component> <component> <observation moodCode="EVN" classCode="OBS"> <templateId root= "06.08.840.1.403168.1022.4.2" /> <id nullFlavor="NA" /> < code codeSystem="local" code="GLU" displayName="GLUCOSE" /> < statusCode code="completed" /> <effectiveTime value="783443207395" /> <value unit="mg/dL" xsi:type="PQ" value="96" /> < referenceRange> <observationRange> <text>70-99</text> </observationRange> </referenceRange> </observation> </component> <component> <observation moodCode="EVN" classCode= "OBS"> <templateId root="216.840.1.961819.10..22.4.2" /> < id nullFlavor="NA" /> <code codeSystem="local" code="CA" displayName= "CALCIUM" /> <statusCode code="completed" /> <effectiveTime value="051515154430" /> <value unit="mg/dL" xsi:type="PQ" value="9.2" / > <referenceRange> <observationRange> <text>8.5 -10.1</text> </observationRange> </referenceRange> </ observation> </component> <component> <observation moodCode= "EVN" classCode="OBS"> <templateId root="06.08.840.1.073629...22.4.2 " /> <id nullFlavor="NA" /> <code codeSystem="local" code="BUN " displayName="BLOOD UREA NITROGEN" /> <statusCode code="completed" /> <effectiveTime value="112243939987" /> <value unit="mg/dL" xsi:type="PQ" value="16" /> <referenceRange> < observationRange> <text>7-20</text> </observationRange> </referenceRange> </observation> </component> < component> <observation moodCode="EVN" classCode="OBS"> < templateId root="16.840.1.218877.10..22.4.2" /> <id nullFlavor="NA " /> <code codeSystem="local" code="CREAT" displayName="CREATININE" /> <statusCode code="completed" /> <effectiveTime value= "684709042669" /> <value unit="mg/dL" xsi:type="PQ" value="0.7" /> <referenceRange> <observationRange> <text>0.6-1.0< /text> </observationRange> </referenceRange> </ observation> </component> <component> <observation moodCode= "EVN" classCode="OBS"> <templateId root="06.08.840.1.078095.10..22.4.2 " /> <id nullFlavor="NA" /> <code codeSystem="local" code="NA " displayName="SODIUM" /> <statusCode code="completed" /> < effectiveTime value="737124458134" /> <value unit="mmol/L" xsi:type="PQ " value="141" /> <referenceRange> <observationRange> <text>135-148</text> </observationRange> </ referenceRange> </observation> </component> <component> <observation moodCode="EVN" classCode="OBS"> <templateId root= "06.08.840.1.282069.10..22.4.2" /> <id nullFlavor="NA" /> < code codeSystem="local" code="CL" displayName="CHLORIDE" /> < statusCode code="completed" /> <effectiveTime value="133184813844" /> <value unit="mmol/L" xsi:type="PQ" value="105" /> < referenceRange> <observationRange> <text>98-110</text> </observationRange> </referenceRange> </observation> </component> <component> <observation moodCode="EVN" classCode ="OBS"> <templateId root="06.08.840.1.064282..4.2" /> < id nullFlavor="NA" /> <code codeSystem="local" code="AST" displayName= "AST/SGOT" /> <statusCode code="completed" /> <effectiveTime value="749060757607" /> <value unit="Units/L" xsi:type="PQ" value="18" /> <referenceRange> <observationRange> <text>10 -37</text> </observationRange> </referenceRange> </ observation> </component> <component> <observation moodCode= "EVN" classCode="OBS"> <templateId root="2.16.840.1.672904.02.09.22.4.2 " /> <id nullFlavor="NA" /> <code codeSystem="local" code="ALT " displayName="ALT/SGPT" /> <statusCode code="completed" /> < effectiveTime value="208261836779" /> <value unit="Units/L" xsi:type= "PQ" value="16" /> <referenceRange> <observationRange> <text>< 66</text> </observationRange> </ referenceRange> </observation> </component> <component> <observation moodCode="EVN" classCode="OBS"> <templateId root= "2.16.840.1.030280.10.4.2" /> <id nullFlavor="NA" /> < code codeSystem="local" code="CO2" displayName="CARBON DIOXIDE" /> < statusCode code="completed" /> <effectiveTime value="477229103885" /> <value unit="mmol/L" xsi:type="PQ" value="30" /> < referenceRange> <observationRange> <text>21-32</text> </observationRange> </referenceRange> </observation> </component> <component> <observation moodCode="EVN" classCode= "OBS"> <templateId root="06.08.840.1.726782.10.2022.4.2" /> < id nullFlavor="NA" /> <code codeSystem="local" code="TP" displayName= "TOTAL PROTEIN" /> <statusCode code="completed" /> < effectiveTime value="827993941433" /> <value unit="gm/dL" xsi:type="PQ " value="8.1" /> <referenceRange> <observationRange> <text>6.4-8.2</text> </observationRange> </ referenceRange> </observation> </component> <component> <observation moodCode="EVN" classCode="OBS"> <templateId root= "840.1.375268.22.4.2" /> <id nullFlavor="NA" /> < code codeSystem="local" code="ALB" displayName="ALBUMIN" /> < statusCode code="completed" /> <effectiveTime value="" /> <value unit="gm/dL" xsi:type="PQ" value="4.5" /> < referenceRange> <observationRange> <text>3.4-5.0</text> </observationRange> </referenceRange> </observation > </component> <component> <observation moodCode="EVN" classCode="OBS"> <templateId root="06.08.840.1.528542.10.20.22.4.2" /> <id nullFlavor="NA" /> <code codeSystem="local" code="BILTOT" displayName="BILI TOTAL" /> <statusCode code="completed" /> < effectiveTime value="" /> <value unit="mg/dL" xsi:type="PQ " value="0.2" /> <referenceRange> <observationRange> <text>0.0-1.0</text> </observationRange> </ referenceRange> </observation> </component> <component> <observation moodCode="EVN" classCode="OBS"> <templateId root= "16.840.1.627661.10..22.4.2" /> <id nullFlavor="NA" /> < code codeSystem="local" code="ALKP" displayName="ALKALINE PHOSPHATASE TOTAL" /> <statusCode code="completed" /> <effectiveTime value= "911381235375" /> <value unit="IU/L" xsi:type="PQ" value="64" /> <referenceRange> <observationRange> <text>45-117</ text> </observationRange> </referenceRange> </ observation> </component> </organizer> </entry> <entry> <organizer moodCode="EVN" classCode="BATTERY"> <templateId root= "16.840.1.012154.10..22.4.1" /> <id nullFlavor="NA" /> <code codeSystem="local" code="CRP" displayName="C REACTIVE PROTEIN" /> < statusCode code="completed" /> <component> <observation moodCode= "EVN" classCode="OBS"> <templateId root="16.840.1.604404.10..22.4.2 " /> <id nullFlavor="NA" /> <code codeSystem="local" code="CRP " displayName="C REACTIVE PROTEIN" /> <statusCode code="completed" /> <effectiveTime value="225726845424" /> <value unit="mg/dL" xsi :type="PQ" value="< 0.2" /> <referenceRange> < observationRange> <text>0.00-0.90</text> </ observationRange> </referenceRange> </observation> </ component> </organizer> </entry> <entry> <organizer moodCode="EVN" classCode="BATTERY"> <templateId root="216.840.1.570373.10..4.1" /> <id nullFlavor="NA" /> <code codeSystem="local" code="PREGU" displayName="UR TEST" /> <statusCode code="completed" /> < component> <observation moodCode="EVN" classCode="OBS"> < templateId root="16.840.1.754511.02.09.22.4.2" /> <id nullFlavor="NA " /> <code codeSystem="local" code="PREGU" displayName="UR TEST" /> <statusCode code="completed" /> <effectiveTime value= "775012243743" /> <value unit="" xsi:type="PQ" value="NEGATIVE" /> <referenceRange> <observationRange> <text>NEGATIVE </text> </observationRange> </referenceRange> </ observation> </component> </organizer> </entry> <entry> <organizer moodCode="EVN" classCode="BATTERY"> <templateId root= "16.840.1.916061.02.09.22.4.1" /> <id nullFlavor="NA" /> <code codeSystem="local" code="UA" displayName="URINALYSIS, ROUTINE" /> < statusCode code="completed" /> <component> <observation moodCode= "EVN" classCode="OBS"> <templateId root="216.840.1.870632.10..4.2 " /> <id nullFlavor="NA" /> <code codeSystem="local" code= "LEUESU" displayName="UA LEUKOCYTE ESTERASE DIPSTICK" /> <statusCode code="completed" /> <effectiveTime value="" /> < value unit="" xsi:type="PQ" value="TRACE" /> <referenceRange> <observationRange> <text>NEGATIVE</text> </ observationRange> </referenceRange> </observation> </ component> <component> <observation moodCode="EVN" classCode="OBS"> <templateId root="06.08.840.1.359757.10.4.2" /> <id nullFlavor="NA" /> <code codeSystem="local" code="NITRIU" displayName= "UA NITRITE DIPSTICK" /> <statusCode code="completed" /> < effectiveTime value="" /> <value unit="" xsi:type="PQ" value="NEGATIVE" /> <referenceRange> <observationRange> <text>NEGATIVE</text> </observationRange> </ referenceRange> </observation> </component> <component> <observation moodCode="EVN" classCode="OBS"> <templateId root= "840.1.133718.02.09.22.4.2" /> <id nullFlavor="NA" /> < code codeSystem="local" code="PROTEIU" displayName="UA PROTEIN DIPSTICK" /> <statusCode code="completed" /> <effectiveTime value= "" /> <value unit="" xsi:type="PQ" value="TRACE" /> <referenceRange> <observationRange> <text>NEGATIVE</ text> </observationRange> </referenceRange> </ observation> </component> <component> <observation moodCode= "EVN" classCode="OBS"> <templateId root="06.08.840.1.911492.1022.4.2 " /> <id nullFlavor="NA" /> <code codeSystem="local" code= "DGLUU" displayName="UA GLUCOSE DIPSTICK" /> <statusCode code= "completed" /> <effectiveTime value="" /> <value unit="" xsi:type="PQ" value="NEGATIVE" /> <referenceRange> < observationRange> <text>NEGATIVE</text> </ observationRange> </referenceRange> </observation> </ component> <component> <observation moodCode="EVN" classCode="OBS"> <templateId root="06.08.840.1.046345.02.09.22.4.2" /> <id nullFlavor="NA" /> <code codeSystem="local" code="KETONU" displayName= "UA KETONE DIPSTICK" /> <statusCode code="completed" /> < effectiveTime value="969021418086" /> <value unit="" xsi:type="PQ" value="NEGATIVE" /> <referenceRange> <observationRange> <text>NEGATIVE</text> </observationRange> </ referenceRange> </observation> </component> <component> <observation moodCode="EVN" classCode="OBS"> <templateId root= "06.08.840.1.100370.02.09.22.4.2" /> <id nullFlavor="NA" /> < code codeSystem="local" code="UROBILU" displayName="UA UROBILINOGEN DIPSTICK" / > <statusCode code="completed" /> <effectiveTime value= "" /> <value unit="" xsi:type="PQ" value="NORMAL" /> <referenceRange> <observationRange> <text>NORMAL</ text> </observationRange> </referenceRange> </ observation> </component> <component> <observation moodCode= "EVN" classCode="OBS"> <templateId root="06.08.840.1.041034.02.09.22.4.2 " /> <id nullFlavor="NA" /> <code codeSystem="local" code= "BILU" displayName="UA BILIRUBIN DIPSTICK" /> <statusCode code= "completed" /> <effectiveTime value="" /> <value unit="" xsi:type="PQ" value="2+" /> <interpretationCode codeSystem= "local" code="*" /> <referenceRange> <observationRange> <text>NEGATIVE</text> </observationRange> </ referenceRange> </observation> </component> <component> <observation moodCode="EVN" classCode="OBS"> <templateId root= "2.16.840.1.574337.10..4.2" /> <id nullFlavor="NA" /> < code codeSystem="local" code="SPENCER" displayName="UA BLOOD DIPSTICK" /> < statusCode code="completed" /> <effectiveTime value="" /> <value unit="" xsi:type="PQ" value="4+" /> < interpretationCode codeSystem="local" code="*" /> <referenceRange> <observationRange> <text>NEGATIVE</text> </ observationRange> </referenceRange> </observation> </ component> <component> <observation moodCode="EVN" classCode="OBS"> <templateId root="2.16.840.1.366698.10..4.2" /> <id nullFlavor="NA" /> <code codeSystem="local" code="SPGRU" displayName= "UA SPECIFIC GRAVITY" /> <statusCode code="completed" /> < effectiveTime value="" /> <value unit="" xsi:type="PQ" value="1.025" /> <referenceRange> <observationRange> <text>1.015-1.025</text> </observationRange> </ referenceRange> </observation> </component> <component> <observation moodCode="EVN" classCode="OBS"> <templateId root= "2.16.840.1.377538.10..22.4.2" /> <id nullFlavor="NA" /> < code codeSystem="local" code="FEROZ" displayName="UR PH" /> <statusCode code="completed" /> <effectiveTime value="145271255413" /> < value unit="" xsi:type="PQ" value="6.0" /> <referenceRange> <observationRange> <text>5.0-7.0</text> </ observationRange> </referenceRange> </observation> </ component> </organizer> </entry> <entry> <organizer moodCode="EVN" classCode="BATTERY"> <templateId root="2.16.840.1.179935.10..22.4.1" /> <id nullFlavor="NA" /> <code codeSystem="local" code="UAMICRO" displayName="UA MICROSCOPIC" /> <statusCode code="completed" /> < component> <observation moodCode="EVN" classCode="OBS"> < templateId root="2.16.840.1.746945.10..22.4.2" /> <id nullFlavor="NA " /> <code codeSystem="local" code="BACU" displayName="UA BACTERIA" /> <statusCode code="completed" /> <effectiveTime value= "178529368640" /> <value unit="" xsi:type="PQ" value="1+" /> < interpretationCode codeSystem="local" code="*" /> <referenceRange> <observationRange> <text>NEGATIVE</text> </ observationRange> </referenceRange> </observation> </ component> <component> <observation moodCode="EVN" classCode="OBS"> <templateId root="16.840.1.987240.10..22.4.2" /> <id nullFlavor="NA" /> <code codeSystem="local" code="EPIU" displayName=" UA EPITHELIAL CELLS" /> <statusCode code="completed" /> < effectiveTime value="" /> <value unit="epi/hpf" xsi:type= "PQ" value="1+" /> <referenceRange> <observationRange> <text>0 - 1+</text> </observationRange> </ referenceRange> </observation> </component> <component> <observation moodCode="EVN" classCode="OBS"> <templateId root= "06.08.840.1.487759...4.2" /> <id nullFlavor="NA" /> < code codeSystem="local" code="MUCUSU" displayName="UA MUCUS" /> < statusCode code="completed" /> <effectiveTime value="" /> <value unit="" xsi:type="PQ" value="1+" /> <referenceRange> <observationRange> <text>NEG TO 1+</text> </ observationRange> </referenceRange> </observation> </ component> <component> <observation moodCode="EVN" classCode="OBS"> <templateId root="06.08.840.1.950547.10...4.2" /> <id nullFlavor="NA" /> <code codeSystem="local" code="RBCU" displayName=" UA RBC" /> <statusCode code="completed" /> <effectiveTime value="" /> <value unit="rbc/hpf" xsi:type="PQ" value="20- 50" /> <interpretationCode codeSystem="local" code="*" /> < referenceRange> <observationRange> <text>0 - 3</text> </observationRange> </referenceRange> </observation> </component> <component> <observation moodCode="EVN" classCode= "OBS"> <templateId root="216.840.1.942926.10..22.4.2" /> < id nullFlavor="NA" /> <code codeSystem="local" code="UAVOL" displayName ="UA VOLUME FOR EXAM" /> <statusCode code="completed" /> < effectiveTime value="357638392152" /> <value unit="mL" xsi:type="PQ" value="12.0" /> <referenceRange> <observationRange> <text>(12mL STD)</text> </observationRange> </ referenceRange> </observation> </component> <component> <observation moodCode="EVN" classCode="OBS"> <templateId root= "06.08.840.1.810974.10..4.2" /> <id nullFlavor="NA" /> < code codeSystem="local" code="WBCU" displayName="UA WBC" /> < statusCode code="completed" /> <effectiveTime value="820050945480" /> <value unit="wbc/hpf" xsi:type="PQ" value="2-5" /> < referenceRange> <observationRange> <text>0 - 5</text> </observationRange> </referenceRange> </observation> </component> </organizer> </entry> <entry> <organizer moodCode="EVN " classCode="BATTERY"> <templateId root="216.840.1.910731.10.22.4.1" / > <id nullFlavor="NA" /> <code codeSystem="local" code="PREGU" displayName="UR TEST" /> <statusCode code="completed" /> < component> <observation moodCode="EVN" classCode="OBS"> < templateId root="216.840.1.649179.10..4.2" /> <id nullFlavor="NA " /> <code codeSystem="local" code="PREGU" displayName="UR TEST" /> <statusCode code="completed" /> <effectiveTime value= "339674956839" /> <value unit="" xsi:type="PQ" value="NEGATIVE" /> <referenceRange> <observationRange> <text>NEGATIVE </text> </observationRange> </referenceRange> </ observation> </component> </organizer> </entry> <entry> <organizer moodCode="EVN" classCode="BATTERY"> <templateId root= "216.840.1.643460.10..4.1" /> <id nullFlavor="NA" /> <code codeSystem="local" code="UA" displayName="URINALYSIS, ROUTINE" /> < statusCode code="completed" /> <component> <observation moodCode= "EVN" classCode="OBS"> <templateId root="216.840.1.682325.10..22.4.2 " /> <id nullFlavor="NA" /> <code codeSystem="local" code= "LEUESU" displayName="UA LEUKOCYTE ESTERASE DIPSTICK" /> <statusCode code="completed" /> <effectiveTime value="028214293273" /> < value unit="" xsi:type="PQ" value="TRACE" /> <referenceRange> <observationRange> <text>NEGATIVE</text> </ observationRange> </referenceRange> </observation> </ component> <component> <observation moodCode="EVN" classCode="OBS"> <templateId root="216.840.1.958756.02.09.22.4.2" /> <id nullFlavor="NA" /> <code codeSystem="local" code="NITRIU" displayName= "UA NITRITE DIPSTICK" /> <statusCode code="completed" /> < effectiveTime value="407536642495" /> <value unit="" xsi:type="PQ" value="NEGATIVE" /> <referenceRange> <observationRange> <text>NEGATIVE</text> </observationRange> </ referenceRange> </observation> </component> <component> <observation moodCode="EVN" classCode="OBS"> <templateId root= "216.840.1.872211.10.4.2" /> <id nullFlavor="NA" /> < code codeSystem="local" code="PROTEIU" displayName="UA PROTEIN DIPSTICK" /> <statusCode code="completed" /> <effectiveTime value= "249808628444" /> <value unit="" xsi:type="PQ" value="TRACE" /> <referenceRange> <observationRange> <text>NEGATIVE</ text> </observationRange> </referenceRange> </ observation> </component> <component> <observation moodCode= "EVN" classCode="OBS"> <templateId root="2.16.840.1.462996.10.4.2 " /> <id nullFlavor="NA" /> <code codeSystem="local" code= "DGLUU" displayName="UA GLUCOSE DIPSTICK" /> <statusCode code= "completed" /> <effectiveTime value="159306423306" /> <value unit="" xsi:type="PQ" value="NEGATIVE" /> <referenceRange> < observationRange> <text>NEGATIVE</text> </ observationRange> </referenceRange> </observation> </ component> <component> <observation moodCode="EVN" classCode="OBS"> <templateId root="16.840.1.779329.10..22.4.2" /> <id nullFlavor="NA" /> <code codeSystem="local" code="KETONU" displayName= "UA KETONE DIPSTICK" /> <statusCode code="completed" /> < effectiveTime value="951052491007" /> <value unit="" xsi:type="PQ" value="NEGATIVE" /> <referenceRange> <observationRange> <text>NEGATIVE</text> </observationRange> </ referenceRange> </observation> </component> <component> <observation moodCode="EVN" classCode="OBS"> <templateId root= "06.08.840.1.586687.02.09.22.4.2" /> <id nullFlavor="NA" /> < code codeSystem="local" code="UROBILU" displayName="UA UROBILINOGEN DIPSTICK" / > <statusCode code="completed" /> <effectiveTime value= "336811779418" /> <value unit="" xsi:type="PQ" value="NORMAL" /> <referenceRange> <observationRange> <text>NORMAL</ text> </observationRange> </referenceRange> </ observation> </component> <component> <observation moodCode= "EVN" classCode="OBS"> <templateId root="06.08.840.1.211031.10.4.2 " /> <id nullFlavor="NA" /> <code codeSystem="local" code= "BILU" displayName="UA BILIRUBIN DIPSTICK" /> <statusCode code= "completed" /> <effectiveTime value="805747674605" /> <value unit="" xsi:type="PQ" value="3+" /> <interpretationCode codeSystem= "local" code="*" /> <referenceRange> <observationRange> <text>NEGATIVE</text> </observationRange> </ referenceRange> </observation> </component> <component> <observation moodCode="EVN" classCode="OBS"> <templateId root= "216.840.1.772072.10.4.2" /> <id nullFlavor="NA" /> < code codeSystem="local" code="SPENCER" displayName="UA BLOOD DIPSTICK" /> < statusCode code="completed" /> <effectiveTime value="503267141953" /> <value unit="" xsi:type="PQ" value="NEGATIVE" /> < referenceRange> <observationRange> <text>NEGATIVE</text > </observationRange> </referenceRange> </observation > </component> <component> <observation moodCode="EVN" classCode="OBS"> <templateId root="216.840.1.327821.02.09.22.4.2" /> <id nullFlavor="NA" /> <code codeSystem="local" code="SPGRU" displayName="UA SPECIFIC GRAVITY" /> <statusCode code="completed" /> <effectiveTime value="572122394148" /> <value unit="" xsi:type= "PQ" value="1.015" /> <referenceRange> <observationRange> <text>1.015-1.025</text> </observationRange> </ referenceRange> </observation> </component> <component> <observation moodCode="EVN" classCode="OBS"> <templateId root= "216.840.1.914153.02.09.22.4.2" /> <id nullFlavor="NA" /> < code codeSystem="local" code="FEROZ" displayName="UR PH" /> <statusCode code="completed" /> <effectiveTime value="[id number]" /> < value unit="" xsi:type="PQ" value="6.5" /> <referenceRange> <observationRange> <text>5.0-7.0</text> </ observationRange> </referenceRange> </observation> </ component> </organizer> </entry> <entry> <organizer moodCode="EVN" classCode="BATTERY"> <templateId root="06.08.840.1.484574.1022.4.1" /> <id nullFlavor="NA" /> <code codeSystem="local" code="UAMICRO" displayName="UA MICROSCOPIC" /> <statusCode code="completed" /> < component> <observation moodCode="EVN" classCode="OBS"> < templateId root="16.840.1.064999.10..4.2" /> <id nullFlavor="NA " /> <code codeSystem="local" code="BACU" displayName="UA BACTERIA" /> <statusCode code="completed" /> <effectiveTime value= "[id number]" /> <value unit="" xsi:type="PQ" value="2+" /> < interpretationCode codeSystem="local" code="*" /> <referenceRange> <observationRange> <text>NEGATIVE</text> </ observationRange> </referenceRange> </observation> </ component> <component> <observation moodCode="EVN" classCode="OBS"> <templateId root="06.08.840.1.627686.02.09.22.4.2" /> <id nullFlavor="NA" /> <code codeSystem="local" code="EPIU" displayName=" UA EPITHELIAL CELLS" /> <statusCode code="completed" /> < effectiveTime value="695828625968" /> <value unit="epi/hpf" xsi:type= "PQ" value="2+" /> <interpretationCode codeSystem="local" code="*" /> <referenceRange> <observationRange> <text>0 - 1 +</text> </observationRange> </referenceRange> </ observation> </component> <component> <observation moodCode= "EVN" classCode="OBS"> <templateId root="06.08.840.1.871392.10...4.2 " /> <id nullFlavor="NA" /> <code codeSystem="local" code= "MUCUSU" displayName="UA MUCUS" /> <statusCode code="completed" /> <effectiveTime value="250138281771" /> <value unit="" xsi:type= "PQ" value="2+" /> <interpretationCode codeSystem="local" code="*" /> <referenceRange> <observationRange> <text>NEG TO 1+</text> </observationRange> </referenceRange> </ observation> </component> <component> <observation moodCode= "EVN" classCode="OBS"> <templateId root="06.08.840.1.036657.02.09.22.4.2 " /> <id nullFlavor="NA" /> <code codeSystem="local" code= "RBCU" displayName="UA RBC" /> <statusCode code="completed" /> <effectiveTime value="427120435693" /> <value unit="rbc/hpf" xsi:type ="PQ" value="0-3" /> <referenceRange> <observationRange> <text>0 - 3</text> </observationRange> </ referenceRange> </observation> </component> <component> <observation moodCode="EVN" classCode="OBS"> <templateId root= "06.08.840.1.321772.10..22.4.2" /> <id nullFlavor="NA" /> < code codeSystem="local" code="UAVOL" displayName="UA VOLUME FOR EXAM" /> <statusCode code="completed" /> <effectiveTime value="293516748073" /> <value unit="mL" xsi:type="PQ" value="12.0" /> < referenceRange> <observationRange> <text>(12mL STD)</ text> </observationRange> </referenceRange> </ observation> </component> <component> <observation moodCode= "EVN" classCode="OBS"> <templateId root="06.08.840.1.476470.10..4.2 " /> <id nullFlavor="NA" /> <code codeSystem="local" code= "WBCU" displayName="UA WBC" /> <statusCode code="completed" /> <effectiveTime value="076297917643" /> <value unit="wbc/hpf" xsi:type ="PQ" value="2-5" /> <referenceRange> <observationRange> <text>0 - 5</text> </observationRange> </ referenceRange> </observation> </component> </organizer> </entry > <entry> <organizer moodCode="EVN" classCode="BATTERY"> <templateId root="06.08.840.1.815180.10..4.1" /> <id nullFlavor="NA" /> <code codeSystem="local" code="DIMER" displayName="D-DIMER QUANT" /> <statusCode code="completed" /> <component> <observation moodCode="EVN" classCode="OBS"> <templateId root="06.08.840.1.900568.10.4.2" /> <id nullFlavor="NA" /> <code codeSystem="local" code="DIMER" displayName="D-DIMER QUANT" /> <statusCode code="completed" /> <effectiveTime value="153612290515" /> <value unit="ng/mL" xsi:type= "PQ" value="< 150" /> <referenceRange> <observationRange > <text>0-229</text> </observationRange> </ referenceRange> </observation> </component> </organizer> </entry > <entry> <organizer moodCode="EVN" classCode="BATTERY"> <templateId root="06.08.840.1.261716.10.4.1" /> <id nullFlavor="NA" /> <code codeSystem="local" code="CBCD" displayName="CBC W/DIFF" /> <statusCode code ="completed" /> <component> <observation moodCode="EVN" classCode= "OBS"> <templateId root="16.840.1.056280...4.2" /> < id nullFlavor="NA" /> <code codeSystem="local" code="EO#" displayName= "EOSINOPHIL #" /> <statusCode code="completed" /> < effectiveTime value="" /> <value unit="k/cumm" xsi:type="PQ " value="0.1" /> <referenceRange> <observationRange> <text>0.1-0.5</text> </observationRange> </ referenceRange> </observation> </component> <component> <observation moodCode="EVN" classCode="OBS"> <templateId root= "06.08.840.1.055596.10..22.4.2" /> <id nullFlavor="NA" /> < code codeSystem="local" code="EO%" displayName="EOSINOPHIL %" /> <statusCode code="completed" /> <effectiveTime value="" /> <value unit="%" xsi:type="PQ" value="1" /> < interpretationCode codeSystem="local" code="*" /> <referenceRange> <observationRange> <text>2-4</text> </ observationRange> </referenceRange> </observation> </ component> <component> <observation moodCode="EVN" classCode="OBS"> <templateId root="06.08.840.1.512677.10..4.2" /> <id nullFlavor="NA" /> <code codeSystem="local" code="GR#" displayName= "GRANULOCYTE #" /> <statusCode code="completed" /> < effectiveTime value="" /> <value unit="k/cumm" xsi:type="PQ " value="4.8" /> <referenceRange> <observationRange> <text>2.0-9.0</text> </observationRange> </ referenceRange> </observation> </component> <component> <observation moodCode="EVN" classCode="OBS"> <templateId root= "840.1.216366.02.09.22.4.2" /> <id nullFlavor="NA" /> < code codeSystem="local" code="GR%" displayName="GRANULOCYTE %" /> <statusCode code="completed" /> <effectiveTime value=" " /> <value unit="%" xsi:type="PQ" value="62" /> < referenceRange> <observationRange> <text>50-75</text> </observationRange> </referenceRange> </observation> </component> <component> <observation moodCode="EVN" classCode= "OBS"> <templateId root="06.08.840.1.541212.10..22.4.2" /> < id nullFlavor="NA" /> <code codeSystem="local" code="LY#" displayName= "LYMPHOCYTE #" /> <statusCode code="completed" /> < effectiveTime value="" /> <value unit="k/cumm" xsi:type="PQ " value="2.4" /> <referenceRange> <observationRange> <text>1.0-4.0</text> </observationRange> </ referenceRange> </observation> </component> <component> <observation moodCode="EVN" classCode="OBS"> <templateId root= "16.840.1.473769.10..22.4.2" /> <id nullFlavor="NA" /> < code codeSystem="local" code="LY%" displayName="LYMPHOCYTE %" /> <statusCode code="completed" /> <effectiveTime value="" /> <value unit="%" xsi:type="PQ" value="31" /> < interpretationCode codeSystem="local" code="*" /> <referenceRange> <observationRange> <text>20-30</text> </ observationRange> </referenceRange> </observation> </ component> <component> <observation moodCode="EVN" classCode="OBS"> <templateId root="16.840.1.453136.10.20.22.4.2" /> <id nullFlavor="NA" /> <code codeSystem="local" code="MCH" displayName= "MEAN CELL HGB" /> <statusCode code="completed" /> < effectiveTime value="" /> <value unit="pg" xsi:type="PQ" value="34.5" /> <interpretationCode codeSystem="local" code="*" /> <referenceRange> <observationRange> <text>27.0- 33.0</text> </observationRange> </referenceRange> </ observation> </component> <component> <observation moodCode= "EVN" classCode="OBS"> <templateId root="216.840.1.786922.10..22.4.2 " /> <id nullFlavor="NA" /> <code codeSystem="local" code= "MCHC" displayName="MEAN CELL HGB CONCENTRATION" /> <statusCode code= "completed" /> <effectiveTime value="" /> <value unit="g/dL" xsi:type="PQ" value="33.1" /> <referenceRange> < observationRange> <text>32.0-37.0</text> </ observationRange> </referenceRange> </observation> </ component> <component> <observation moodCode="EVN" classCode="OBS"> <templateId root="16.840.1.586695.02.09.22.4.2" /> <id nullFlavor="NA" /> <code codeSystem="local" code="MCV" displayName= "MEAN CELL VOLUME" /> <statusCode code="completed" /> < effectiveTime value="" /> <value unit="fl" xsi:type="PQ" value="104.2" /> <interpretationCode codeSystem="local" code="*" /> <referenceRange> <observationRange> <text>80.0- 100.0</text> </observationRange> </referenceRange> </ observation> </component> <component> <observation moodCode= "EVN" classCode="OBS"> <templateId root="16.840.1.546613.22.4.2 " /> <id nullFlavor="NA" /> <code codeSystem="local" code="MO# " displayName="MONOCYTE #" /> <statusCode code="completed" /> <effectiveTime value="[id number]" /> <value unit="k/cumm" xsi:type= "PQ" value="0.5" /> <referenceRange> <observationRange> <text>0.1-1.0</text> </observationRange> </ referenceRange> </observation> </component> <component> <observation moodCode="EVN" classCode="OBS"> <templateId root= "2.16.840.1.593617.10..22.4.2" /> <id nullFlavor="NA" /> < code codeSystem="local" code="MO%" displayName="MONOCYTE %" /> <statusCode code="completed" /> <effectiveTime value="" /> <value unit="%" xsi:type="PQ" value="6" /> < referenceRange> <observationRange> <text>4-6</text> </observationRange> </referenceRange> </observation> </component> <component> <observation moodCode="EVN" classCode= "OBS"> <templateId root="216.840.1.036455.02.09.22.4.2" /> < id nullFlavor="NA" /> <code codeSystem="local" code="RBC" displayName= "RED BLOOD CELL" /> <statusCode code="completed" /> < effectiveTime value="" /> <value unit="m/cumm" xsi:type="PQ " value="3.83" /> <interpretationCode codeSystem="local" code="*" /> <referenceRange> <observationRange> <text>4.00- 6.00</text> </observationRange> </referenceRange> </ observation> </component> <component> <observation moodCode= "EVN" classCode="OBS"> <templateId root="216.840.1.552229....4.2 " /> <id nullFlavor="NA" /> <code codeSystem="local" code="RDW " displayName="RED CELL DISTRIBUTION WIDTH" /> <statusCode code= "completed" /> <effectiveTime value="" /> <value unit="%" xsi:type="PQ" value="12.1" /> <referenceRange> <observationRange> <text>11.0-15.6</text> </ observationRange> </referenceRange> </observation> </ component> <component> <observation moodCode="EVN" classCode="OBS"> <templateId root="2.16.840.1.048716.10...4.2" /> <id nullFlavor="NA" /> <code codeSystem="local" code="WBC" displayName= "WHITE BLOOD CELL" /> <statusCode code="completed" /> < effectiveTime value="" /> <value unit="k/cumm" xsi:type="PQ " value="7.8" /> <referenceRange> <observationRange> <text>5.0-10.0</text> </observationRange> </ referenceRange> </observation> </component> <component> <observation moodCode="EVN" classCode="OBS"> <templateId root= "2.16.840.1.132153...4.2" /> <id nullFlavor="NA" /> < code codeSystem="local" code="HGBT" displayName="HEMOGLOBIN" /> < statusCode code="completed" /> <effectiveTime value="" /> <value unit="gm/dL" xsi:type="PQ" value="13.2" /> < referenceRange> <observationRange> <text>12.0-16.0</text > </observationRange> </referenceRange> </observation > </component> <component> <observation moodCode="EVN" classCode="OBS"> <templateId root="16.840.1.708898.10..4.2" /> <id nullFlavor="NA" /> <code codeSystem="local" code="HCTT" displayName="HEMATOCRIT" /> <statusCode code="completed" /> < effectiveTime value="" /> <value unit="%" xsi:type="PQ " value="39.9" /> <referenceRange> <observationRange> <text>37.0-47.0</text> </observationRange> </ referenceRange> </observation> </component> <component> <observation moodCode="EVN" classCode="OBS"> <templateId root= "06.08.840.1.326926.02.09.22.4.2" /> <id nullFlavor="NA" /> < code codeSystem="local" code="PLT" displayName="PLATELET COUNT" /> < statusCode code="completed" /> <effectiveTime value="" /> <value unit="k/cumm" xsi:type="PQ" value="309" /> < referenceRange> <observationRange> <text>150-450</text> </observationRange> </referenceRange> </observation > </component> </organizer> </entry> <entry> <organizer moodCode= "EVN" classCode="BATTERY"> <templateId root="06.08.840.1.343405.10..4.1 " /> <id nullFlavor="NA" /> <code codeSystem="local" code="UA" displayName="URINALYSIS, ROUTINE" /> <statusCode code="completed" /> < component> <observation moodCode="EVN" classCode="OBS"> < templateId root="06.08.840.1.947069.02.09.22.4.2" /> <id nullFlavor="NA " /> <code codeSystem="local" code="LEUESU" displayName="UA LEUKOCYTE ESTERASE DIPSTICK" /> <statusCode code="completed" /> < effectiveTime value="" /> <value unit="" xsi:type="PQ" value="TRACE" /> <referenceRange> <observationRange> <text>NEGATIVE</text> </observationRange> </ referenceRange> </observation> </component> <component> <observation moodCode="EVN" classCode="OBS"> <templateId root= "216.840.1.928656.02.09.22.4.2" /> <id nullFlavor="NA" /> < code codeSystem="local" code="NITRIU" displayName="UA NITRITE DIPSTICK" /> <statusCode code="completed" /> <effectiveTime value=" " /> <value unit="" xsi:type="PQ" value="NEGATIVE" /> < referenceRange> <observationRange> <text>NEGATIVE</text > </observationRange> </referenceRange> </observation > </component> <component> <observation moodCode="EVN" classCode="OBS"> <templateId root="216.840.1.803559.02.09.22.4.2" /> <id nullFlavor="NA" /> <code codeSystem="local" code="PROTEIU " displayName="UA PROTEIN DIPSTICK" /> <statusCode code="completed" /> <effectiveTime value="" /> <value unit="" xsi: type="PQ" value="1+" /> <interpretationCode codeSystem="local" code="* " /> <referenceRange> <observationRange> <text> NEGATIVE</text> </observationRange> </referenceRange> </observation> </component> <component> <observation moodCode ="EVN" classCode="OBS"> <templateId root= "216.840.1.758111.10..22.4.2" /> <id nullFlavor="NA" /> < code codeSystem="local" code="DGLUU" displayName="UA GLUCOSE DIPSTICK" /> <statusCode code="completed" /> <effectiveTime value=" " /> <value unit="" xsi:type="PQ" value="NEGATIVE" /> < referenceRange> <observationRange> <text>NEGATIVE</text > </observationRange> </referenceRange> </observation > </component> <component> <observation moodCode="EVN" classCode="OBS"> <templateId root="216.840.1.376260.10...4.2" /> <id nullFlavor="NA" /> <code codeSystem="local" code="KETONU" displayName="UA KETONE DIPSTICK" /> <statusCode code="completed" /> <effectiveTime value="" /> <value unit="" xsi:type= "PQ" value="NEGATIVE" /> <referenceRange> <observationRange > <text>NEGATIVE</text> </observationRange> </ referenceRange> </observation> </component> <component> <observation moodCode="EVN" classCode="OBS"> <templateId root= "216.840.1.487470.10..22.4.2" /> <id nullFlavor="NA" /> < code codeSystem="local" code="UROBILU" displayName="UA UROBILINOGEN DIPSTICK" / > <statusCode code="completed" /> <effectiveTime value= "" /> <value unit="" xsi:type="PQ" value="NORMAL" /> <referenceRange> <observationRange> <text>NORMAL</ text> </observationRange> </referenceRange> </ observation> </component> <component> <observation moodCode= "EVN" classCode="OBS"> <templateId root="216.840.1.089106.02.09.22.4.2 " /> <id nullFlavor="NA" /> <code codeSystem="local" code= "BILU" displayName="UA BILIRUBIN DIPSTICK" /> <statusCode code= "completed" /> <effectiveTime value="" /> <value unit="" xsi:type="PQ" value="NEGATIVE" /> <referenceRange> < observationRange> <text>NEGATIVE</text> </ observationRange> </referenceRange> </observation> </ component> <component> <observation moodCode="EVN" classCode="OBS"> <templateId root="16.840.1.929849.02.09.22.4.2" /> <id nullFlavor="NA" /> <code codeSystem="local" code="SPENCER" displayName="UA BLOOD DIPSTICK" /> <statusCode code="completed" /> < effectiveTime value="" /> <value unit="" xsi:type="PQ" value="NEGATIVE" /> <referenceRange> <observationRange> <text>NEGATIVE</text> </observationRange> </ referenceRange> </observation> </component> <component> <observation moodCode="EVN" classCode="OBS"> <templateId root= "16.840.1.999554.02.09.22.4.2" /> <id nullFlavor="NA" /> < code codeSystem="local" code="SPGRU" displayName="UA SPECIFIC GRAVITY" /> <statusCode code="completed" /> <effectiveTime value=" " /> <value unit="" xsi:type="PQ" value="1.025" /> < referenceRange> <observationRange> <text>1.015-1.025</ text> </observationRange> </referenceRange> </ observation> </component> <component> <observation moodCode= "EVN" classCode="OBS"> <templateId root="16.840.1.316052.10.20.22.4.2 " /> <id nullFlavor="NA" /> <code codeSystem="local" code="FEROZ " displayName="UR PH" /> <statusCode code="completed" /> < effectiveTime value="" /> <value unit="" xsi:type="PQ" value="5.0" /> <referenceRange> <observationRange> <text>5.0-7.0</text> </observationRange> </ referenceRange> </observation> </component> </organizer> </entry > <entry> <organizer moodCode="EVN" classCode="BATTERY"> <templateId root="06.08.840.1.334596.10.22.4.1" /> <id nullFlavor="NA" /> <code codeSystem="local" code="UAMICRO" displayName="UA MICROSCOPIC" /> < statusCode code="completed" /> <component> <observation moodCode= "EVN" classCode="OBS"> <templateId root="06.08.840.1.307888.10.20.22.4.2 " /> <id nullFlavor="NA" /> <code codeSystem="local" code= "BACU" displayName="UA BACTERIA" /> <statusCode code="completed" /> <effectiveTime value="" /> <value unit="" xsi:type= "PQ" value="1+" /> <interpretationCode codeSystem="local" code="*" /> <referenceRange> <observationRange> <text> NEGATIVE</text> </observationRange> </referenceRange> </observation> </component> <component> <observation moodCode ="EVN" classCode="OBS"> <templateId root= "06.08.840.1.110720.10.22.4.2" /> <id nullFlavor="NA" /> < code codeSystem="local" code="EPIU" displayName="UA EPITHELIAL CELLS" /> <statusCode code="completed" /> <effectiveTime value="" /> <value unit="epi/hpf" xsi:type="PQ" value="2+" /> < interpretationCode codeSystem="local" code="*" /> <referenceRange> <observationRange> <text>0 - 1+</text> </ observationRange> </referenceRange> </observation> </ component> <component> <observation moodCode="EVN" classCode="OBS"> <templateId root="840.1.605982.02.09.22.4.2" /> <id nullFlavor="NA" /> <code codeSystem="local" code="MUCUSU" displayName= "UA MUCUS" /> <statusCode code="completed" /> <effectiveTime value="" /> <value unit="" xsi:type="PQ" value="3+" /> <interpretationCode codeSystem="local" code="*" /> < referenceRange> <observationRange> <text>NEG TO 1+</text > </observationRange> </referenceRange> </observation > </component> <component> <observation moodCode="EVN" classCode="OBS"> <templateId root="06.08.840.1.387314.10..4.2" /> <id nullFlavor="NA" /> <code codeSystem="local" code="UAVOL" displayName="UA VOLUME FOR EXAM" /> <statusCode code="completed" /> <effectiveTime value="" /> <value unit="mL" xsi:type ="PQ" value="12.0" /> <referenceRange> <observationRange> <text>(12mL STD)</text> </observationRange> </ referenceRange> </observation> </component> <component> <observation moodCode="EVN" classCode="OBS"> <templateId root= "06.08.840.1.062636.10...4.2" /> <id nullFlavor="NA" /> < code codeSystem="local" code="WBCU" displayName="UA WBC" /> < statusCode code="completed" /> <effectiveTime value="" /> <value unit="wbc/hpf" xsi:type="PQ" value="0-1" /> < referenceRange> <observationRange> <text>0 - 5</text> </observationRange> </referenceRange> </observation> </component> </organizer> </entry> <entry> <organizer moodCode="EVN " classCode="BATTERY"> <templateId root="06.08.840.1.043477.10...4.1" / > <id nullFlavor="NA" /> <code codeSystem="local" code="PREGU" displayName="UR TEST" /> <statusCode code="completed" /> < component> <observation moodCode="EVN" classCode="OBS"> < templateId root="06.08.840.1.084930....4.2" /> <id nullFlavor="NA " /> <code codeSystem="local" code="PREGU" displayName="UR TEST" /> <statusCode code="completed" /> <effectiveTime value= "" /> <value unit="" xsi:type="PQ" value="NEGATIVE" /> <referenceRange> <observationRange> <text>NEGATIVE </text> </observationRange> </referenceRange> </ observation> </component> </organizer> </entry> <entry> <organizer moodCode="EVN" classCode="BATTERY"> <templateId root= "16.840.1.100674.10..22.4.1" /> <id nullFlavor="NA" /> <code codeSystem="local" code="METABC" displayName="METABOLIC PANEL, COMPREHN" /> <statusCode code="completed" /> <component> <observation moodCode= "EVN" classCode="OBS"> <templateId root="16.840.1.907259...22.4.2 " /> <id nullFlavor="NA" /> <code codeSystem="local" code="K" displayName="POTASSIUM" /> <statusCode code="completed" /> < effectiveTime value="" /> <value unit="mmol/L" xsi:type="PQ " value="3.5" /> <referenceRange> <observationRange> <text>3.5-5.3</text> </observationRange> </ referenceRange> </observation> </component> <component> <observation moodCode="EVN" classCode="OBS"> <templateId root= "06.08.840.1.910830..22.4.2" /> <id nullFlavor="NA" /> < code codeSystem="local" code="eGFR" displayName="EST GFR (MDRD)" /> < statusCode code="completed" /> <effectiveTime value="" /> <value unit="mL/min" xsi:type="PQ" value="> 60" /> < referenceRange> <observationRange> <text>> 59</text> </observationRange> </referenceRange> </observation > </component> <component> <observation moodCode="EVN" classCode="OBS"> <templateId root="2.16.840.1.705663.10..22.4.2" /> <id nullFlavor="NA" /> <code codeSystem="local" code="GAP" displayName="ANION GAP" /> <statusCode code="completed" /> < effectiveTime value="" /> <value unit="mmol/L" xsi:type="PQ " value="9" /> <referenceRange> <observationRange> <text>5-15</text> </observationRange> </referenceRange > </observation> </component> <component> <observation moodCode="EVN" classCode="OBS"> <templateId root= "216.840.1.367047.02.09.22.4.2" /> <id nullFlavor="NA" /> < code codeSystem="local" code="eCrCl" displayName="EST CrCl (CG)" /> < statusCode code="completed" /> <effectiveTime value="" /> <value unit="mL/min" xsi:type="PQ" value="> 60" /> < referenceRange> <observationRange> <text>> 59</text> </observationRange> </referenceRange> </observation > </component> <component> <observation moodCode="EVN" classCode="OBS"> <templateId root="216.840.1.730828.10..22.4.2" /> <id nullFlavor="NA" /> <code codeSystem="local" code="GLU" displayName="GLUCOSE" /> <statusCode code="completed" /> < effectiveTime value="" /> <value unit="mg/dL" xsi:type="PQ " value="79" /> <referenceRange> <observationRange> <text>70-99</text> </observationRange> </ referenceRange> </observation> </component> <component> <observation moodCode="EVN" classCode="OBS"> <templateId root= "16.840.1.314760.10.20.22.4.2" /> <id nullFlavor="NA" /> < code codeSystem="local" code="CA" displayName="CALCIUM" /> <statusCode code="completed" /> <effectiveTime value="" /> < value unit="mg/dL" xsi:type="PQ" value="9.2" /> <referenceRange> <observationRange> <text>8.5-10.1</text> </ observationRange> </referenceRange> </observation> </ component> <component> <observation moodCode="EVN" classCode="OBS"> <templateId root="06.08.840.1.315105.10.22.4.2" /> <id nullFlavor="NA" /> <code codeSystem="local" code="BUN" displayName= "BLOOD UREA NITROGEN" /> <statusCode code="completed" /> < effectiveTime value="" /> <value unit="mg/dL" xsi:type="PQ " value="14" /> <referenceRange> <observationRange> <text>7-20</text> </observationRange> </referenceRange > </observation> </component> <component> <observation moodCode="EVN" classCode="OBS"> <templateId root= "06.08.840.1.486646.10.20.22.4.2" /> <id nullFlavor="NA" /> < code codeSystem="local" code="CREAT" displayName="CREATININE" /> < statusCode code="completed" /> <effectiveTime value="" /> <value unit="mg/dL" xsi:type="PQ" value="0.7" /> < referenceRange> <observationRange> <text>0.6-1.0</text> </observationRange> </referenceRange> </observation > </component> <component> <observation moodCode="EVN" classCode="OBS"> <templateId root="216.840.1.581681.10.22.4.2" /> <id nullFlavor="NA" /> <code codeSystem="local" code="NA" displayName="SODIUM" /> <statusCode code="completed" /> < effectiveTime value="" /> <value unit="mmol/L" xsi:type="PQ " value="141" /> <referenceRange> <observationRange> <text>135-148</text> </observationRange> </ referenceRange> </observation> </component> <component> <observation moodCode="EVN" classCode="OBS"> <templateId root= "16.840.1.982327.10.22.4.2" /> <id nullFlavor="NA" /> < code codeSystem="local" code="CL" displayName="CHLORIDE" /> < statusCode code="completed" /> <effectiveTime value="" /> <value unit="mmol/L" xsi:type="PQ" value="103" /> < referenceRange> <observationRange> <text>98-110</text> </observationRange> </referenceRange> </observation> </component> <component> <observation moodCode="EVN" classCode ="OBS"> <templateId root="216.840.1.118135.10.20.22.4.2" /> < id nullFlavor="NA" /> <code codeSystem="local" code="AST" displayName= "AST/SGOT" /> <statusCode code="completed" /> <effectiveTime value="" /> <value unit="Units/L" xsi:type="PQ" value="12" /> <referenceRange> <observationRange> <text>10 -37</text> </observationRange> </referenceRange> </ observation> </component> <component> <observation moodCode= "EVN" classCode="OBS"> <templateId root="216.840.1.097936.10..22.4.2 " /> <id nullFlavor="NA" /> <code codeSystem="local" code="ALT " displayName="ALT/SGPT" /> <statusCode code="completed" /> < effectiveTime value="" /> <value unit="Units/L" xsi:type= "PQ" value="16" /> <referenceRange> <observationRange> <text>< 66</text> </observationRange> </ referenceRange> </observation> </component> <component> <observation moodCode="EVN" classCode="OBS"> <templateId root= "16.840.1.597836.10..22.4.2" /> <id nullFlavor="NA" /> < code codeSystem="local" code="CO2" displayName="CARBON DIOXIDE" /> < statusCode code="completed" /> <effectiveTime value="" /> <value unit="mmol/L" xsi:type="PQ" value="29" /> < referenceRange> <observationRange> <text>21-32</text> </observationRange> </referenceRange> </observation> </component> <component> <observation moodCode="EVN" classCode= "OBS"> <templateId root="16.840.1.646405.22.4.2" /> < id nullFlavor="NA" /> <code codeSystem="local" code="TP" displayName= "TOTAL PROTEIN" /> <statusCode code="completed" /> < effectiveTime value="" /> <value unit="gm/dL" xsi:type="PQ " value="8.2" /> <referenceRange> <observationRange> <text>6.4-8.2</text> </observationRange> </ referenceRange> </observation> </component> <component> <observation moodCode="EVN" classCode="OBS"> <templateId root= "2.16.840.1.553342...4.2" /> <id nullFlavor="NA" /> < code codeSystem="local" code="ALB" displayName="ALBUMIN" /> < statusCode code="completed" /> <effectiveTime value="" /> <value unit="gm/dL" xsi:type="PQ" value="4.6" /> < referenceRange> <observationRange> <text>3.4-5.0</text> </observationRange> </referenceRange> </observation > </component> <component> <observation moodCode="EVN" classCode="OBS"> <templateId root="216.840.1.297397...4.2" /> <id nullFlavor="NA" /> <code codeSystem="local" code="BILTOT" displayName="BILI TOTAL" /> <statusCode code="completed" /> < effectiveTime value="" /> <value unit="mg/dL" xsi:type="PQ " value="0.3" /> <referenceRange> <observationRange> <text>0.0-1.0</text> </observationRange> </ referenceRange> </observation> </component> <component> <observation moodCode="EVN" classCode="OBS"> <templateId root= "2.16.840.1.852930.10..22.4.2" /> <id nullFlavor="NA" /> < code codeSystem="local" code="ALKP" displayName="ALKALINE PHOSPHATASE TOTAL" /> <statusCode code="completed" /> <effectiveTime value= "" /> <value unit="IU/L" xsi:type="PQ" value="55" /> <referenceRange> <observationRange> <text>45-117</ text> </observationRange> </referenceRange> </ observation> </component> </organizer> </entry> <entry> <organizer moodCode="EVN" classCode="BATTERY"> <templateId root= "2.16.840.1.150359.10..22.4.1" /> <id nullFlavor="NA" /> <code codeSystem="local" code="LIP" displayName="LIPASE" /> <statusCode code= "completed" /> <component> <observation moodCode="EVN" classCode= "OBS"> <templateId root="2.16.840.1.480698.10..22.4.2" /> < id nullFlavor="NA" /> <code codeSystem="local" code="LIP" displayName= "LIPASE" /> <statusCode code="completed" /> <effectiveTime value="" /> <value unit="Units/L" xsi:type="PQ" value="117 " /> <referenceRange> <observationRange> <text> 73-393</text> </observationRange> </referenceRange> < /observation> </component> </organizer> </entry> <entry> < organizer moodCode="EVN" classCode="BATTERY"> <templateId root= "16.840.1.933867...22.4.1" /> <id nullFlavor="NA" /> <code codeSystem="local" code="CBCWD" displayName="CBC With Platelet and Differential " /> <statusCode code="completed" /> <component> <observation moodCode="EVN" classCode="OBS"> <templateId root= "06.08.840.1.225196.02.09.22.4.2" /> <id nullFlavor="NA" /> < code codeSystem="local" code="ABASR" displayName="Absolute Basophils" /> <statusCode code="completed" /> <effectiveTime value="737584628989" /> <value unit="10*3/uL" xsi:type="PQ" value="0.01" /> < referenceRange> <observationRange> <text>0.00-0.20</text > </observationRange> </referenceRange> </observation > </component> <component> <observation moodCode="EVN" classCode="OBS"> <templateId root="840.1.373178.02.09.22.4.2" /> <id nullFlavor="NA" /> <code codeSystem="local" code="AEOSR" displayName="Absolute Eosinophils" /> <statusCode code="completed" /> <effectiveTime value="381793413435" /> <value unit="10*3/uL" xsi:type="PQ" value="0.03" /> <referenceRange> < observationRange> <text>0.00-0.50</text> </ observationRange> </referenceRange> </observation> </ component> <component> <observation moodCode="EVN" classCode="OBS"> <templateId root="06.08.840.1.384677...4.2" /> <id nullFlavor="NA" /> <code codeSystem="local" code="ALYMR" displayName= "Absolute Lymphocytes" /> <statusCode code="completed" /> < effectiveTime value="149330194860" /> <value unit="10*3/uL" xsi:type= "PQ" value="2.39" /> <referenceRange> <observationRange> <text>0.80-3.30</text> </observationRange> </ referenceRange> </observation> </component> <component> <observation moodCode="EVN" classCode="OBS"> <templateId root= "2.16.840.1.093099.10...4.2" /> <id nullFlavor="NA" /> < code codeSystem="local" code="AMONR" displayName="Absolute Monocytes" /> <statusCode code="completed" /> <effectiveTime value="252045039291" /> <value unit="10*3/uL" xsi:type="PQ" value="0.49" /> < referenceRange> <observationRange> <text>0.30-1.00</text > </observationRange> </referenceRange> </observation > </component> <component> <observation moodCode="EVN" classCode="OBS"> <templateId root="2.16.840.1.113034.10...4.2" /> <id nullFlavor="NA" /> <code codeSystem="local" code="ASEGR" displayName="Absolute Neutrophils" /> <statusCode code="completed" /> <effectiveTime value="817434422032" /> <value unit="10*3/uL" xsi:type="PQ" value="5.31" /> <referenceRange> < observationRange> <text>1.90-7.00</text> </ observationRange> </referenceRange> </observation> </ component> <component> <observation moodCode="EVN" classCode="OBS"> <templateId root="216.840.1.814819.10.20.22.4.2" /> <id nullFlavor="NA" /> <code codeSystem="local" code="BASOR" displayName= "Basophils" /> <statusCode code="completed" /> <effectiveTime value="155543027796" /> <value unit="%" xsi:type="PQ" value="0" /> <referenceRange> <observationRange> <text>0-2< /text> </observationRange> </referenceRange> </ observation> </component> <component> <observation moodCode= "EVN" classCode="OBS"> <templateId root="16.840.1.046416.10..22.4.2 " /> <id nullFlavor="NA" /> <code codeSystem="local" code= "EOSR" displayName="Eosinophils" /> <statusCode code="completed" /> <effectiveTime value="153965089054" /> <value unit="%" xsi: type="PQ" value="0" /> <referenceRange> <observationRange> <text>0-4</text> </observationRange> </ referenceRange> </observation> </component> <component> <observation moodCode="EVN" classCode="OBS"> <templateId root= "06.08.840.1.241426.10.20.22.4.2" /> <id nullFlavor="NA" /> < code codeSystem="local" code="HCT" displayName="HCT" /> <statusCode code="completed" /> <effectiveTime value="079419592040" /> < value unit="%" xsi:type="PQ" value="44.1" /> <referenceRange> <observationRange> <text>37.0-47.0</text> </ observationRange> </referenceRange> </observation> </ component> <component> <observation moodCode="EVN" classCode="OBS"> <templateId root="216.840.1.272640.10.4.2" /> <id nullFlavor="NA" /> <code codeSystem="local" code="HGB" displayName="HGB " /> <statusCode code="completed" /> <effectiveTime value= "140137079856" /> <value unit="g/dL" xsi:type="PQ" value="14.7" /> <referenceRange> <observationRange> <text>12.0- 16.0</text> </observationRange> </referenceRange> </ observation> </component> <component> <observation moodCode= "EVN" classCode="OBS"> <templateId root="2.840.1.617788.02.09.224.2 " /> <id nullFlavor="NA" /> <code codeSystem="local" code= "IMGA" displayName="Immature Granulocytes" /> <statusCode code= "completed" /> <effectiveTime value="327272356547" /> <value unit="%" xsi:type="PQ" value="0.4" /> <referenceRange> < observationRange> <text>0.0-1.0</text> </ observationRange> </referenceRange> </observation> </ component> <component> <observation moodCode="EVN" classCode="OBS"> <templateId root="216.840.1.959137.02.09.22.4.2" /> <id nullFlavor="NA" /> <code codeSystem="local" code="LYMPR" displayName= "Lymphocytes" /> <statusCode code="completed" /> < effectiveTime value="150124808303" /> <value unit="%" xsi:type="PQ " value="29" /> <referenceRange> <observationRange> <text>20-46</text> </observationRange> </ referenceRange> </observation> </component> <component> <observation moodCode="EVN" classCode="OBS"> <templateId root= "216.840.1.573171.10.22.4.2" /> <id nullFlavor="NA" /> < code codeSystem="local" code="MCH" displayName="MCH" /> <statusCode code="completed" /> <effectiveTime value="765032583191" /> < value unit="pg" xsi:type="PQ" value="34.2" /> <interpretationCode codeSystem="local" code="*" /> <referenceRange> < observationRange> <text>27.0-32.0</text> </ observationRange> </referenceRange> </observation> </ component> <component> <observation moodCode="EVN" classCode="OBS"> <templateId root="06.08.840.1.405872.02.09.22.4.2" /> <id nullFlavor="NA" /> <code codeSystem="local" code="MCHC" displayName= "MCHC" /> <statusCode code="completed" /> <effectiveTime value ="325745578970" /> <value unit="g/dL" xsi:type="PQ" value="33.3" /> <referenceRange> <observationRange> <text>32.0- 36.0</text> </observationRange> </referenceRange> </ observation> </component> <component> <observation moodCode= "EVN" classCode="OBS"> <templateId root="216.840.1.166163.10.2022.4.2 " /> <id nullFlavor="NA" /> <code codeSystem="local" code="MCV " displayName="MCV" /> <statusCode code="completed" /> < effectiveTime value="433689821180" /> <value unit="fL" xsi:type="PQ" value="102.6" /> <interpretationCode codeSystem="local" code="*" /> <referenceRange> <observationRange> <text>82.0- 99.0</text> </observationRange> </referenceRange> </ observation> </component> <component> <observation moodCode= "EVN" classCode="OBS"> <templateId root="216.840.1.348510.02.09.22.4.2 " /> <id nullFlavor="NA" /> <code codeSystem="local" code= "MONOR" displayName="Monocytes" /> <statusCode code="completed" /> <effectiveTime value="036515461271" /> <value unit="%" xsi: type="PQ" value="6" /> <referenceRange> <observationRange> <text>4-11</text> </observationRange> </ referenceRange> </observation> </component> <component> <observation moodCode="EVN" classCode="OBS"> <templateId root= "216.840.1.470877.02.09.22.4.2" /> <id nullFlavor="NA" /> < code codeSystem="local" code="MPV" displayName="MPV" /> <statusCode code="completed" /> <effectiveTime value="290606658430" /> < value unit="fL" xsi:type="PQ" value="9.2" /> <interpretationCode codeSystem="local" code="*" /> <referenceRange> < observationRange> <text>9.4-12.4</text> </ observationRange> </referenceRange> </observation> </ component> <component> <observation moodCode="EVN" classCode="OBS"> <templateId root="216.840.1.717981.10..4.2" /> <id nullFlavor="NA" /> <code codeSystem="local" code="SEGR" displayName= "Neutrophils" /> <statusCode code="completed" /> < effectiveTime value="062622113330" /> <value unit="%" xsi:type="PQ " value="64" /> <referenceRange> <observationRange> <text>51-75</text> </observationRange> </ referenceRange> </observation> </component> <component> <observation moodCode="EVN" classCode="OBS"> <templateId root= "216.840.1.789277.02.09.22.4.2" /> <id nullFlavor="NA" /> < code codeSystem="local" code="NRBCA" displayName="Nucleated RBC Automated" /> <statusCode code="completed" /> <effectiveTime value= "" /> <value unit="/100WBC" xsi:type="PQ" value="0.0" /> <referenceRange> <observationRange> <text /> </observationRange> </referenceRange> </observation> </component> <component> <observation moodCode="EVN" classCode= "OBS"> <templateId root="16.840.1.709184.10..4.2" /> < id nullFlavor="NA" /> <code codeSystem="local" code="PLT" displayName= "Platelet Count" /> <statusCode code="completed" /> < effectiveTime value="075095425677" /> <value unit="K/uL" xsi:type="PQ" value="290" /> <referenceRange> <observationRange> <text>150-400</text> </observationRange> </ referenceRange> </observation> </component> <component> <observation moodCode="EVN" classCode="OBS"> <templateId root= "16.840.1.257995.10..22.4.2" /> <id nullFlavor="NA" /> < code codeSystem="local" code="RBC" displayName="RBC" /> <statusCode code="completed" /> <effectiveTime value="851445061867" /> < value unit="10*6/uL" xsi:type="PQ" value="4.30" /> <referenceRange> <observationRange> <text>4.00-5.20</text> </ observationRange> </referenceRange> </observation> </ component> <component> <observation moodCode="EVN" classCode="OBS"> <templateId root="06.08.840.1.129060.10..4.2" /> <id nullFlavor="NA" /> <code codeSystem="local" code="RDW" displayName="RDW " /> <statusCode code="completed" /> <effectiveTime value= "057299406948" /> <value unit="%" xsi:type="PQ" value="12.7" /> <referenceRange> <observationRange> <text>11.5- 14.5</text> </observationRange> </referenceRange> </ observation> </component> <component> <observation moodCode= "EVN" classCode="OBS"> <templateId root="06.08.840.1.869873.10.20..4.2 " /> <id nullFlavor="NA" /> <code codeSystem="local" code= "WBCIR" displayName="WBC" /> <statusCode code="completed" /> < effectiveTime value="650860471489" /> <value unit="K/uL" xsi:type="PQ" value="8.3" /> <referenceRange> <observationRange> <text>4.8-10.8</text> </observationRange> </ referenceRange> </observation> </component> </organizer> </entry > <entry> <organizer moodCode="EVN" classCode="BATTERY"> <templateId root="16.840.1.498114.10..22.4.1" /> <id nullFlavor="NA" /> <code codeSystem="local" code="CMP" displayName="Comprehensive Metabolic Panel (CMP)" /> <statusCode code="completed" /> <component> <observation moodCode="EVN" classCode="OBS"> <templateId root= "216.840.1.111892.10...4.2" /> <id nullFlavor="NA" /> < code codeSystem="local" code="ALB" displayName="Albumin" /> < statusCode code="completed" /> <effectiveTime value="981911265421" /> <value unit="g/dL" xsi:type="PQ" value="4.9" /> < interpretationCode codeSystem="local" code="*" /> <referenceRange> <observationRange> <text>3.5-4.8</text> </ observationRange> </referenceRange> </observation> </ component> <component> <observation moodCode="EVN" classCode="OBS"> <templateId root="06.08.840.1.320302.10..4.2" /> <id nullFlavor="NA" /> <code codeSystem="local" code="ALP" displayName= "Alkaline Phosphatase" /> <statusCode code="completed" /> < effectiveTime value="157943801897" /> <value unit="U/L" xsi:type="PQ" value="59" /> <referenceRange> <observationRange> <text>26-104</text> </observationRange> </referenceRange > </observation> </component> <component> <observation moodCode="EVN" classCode="OBS"> <templateId root= "216.840.1.829496.10..22.4.2" /> <id nullFlavor="NA" /> < code codeSystem="local" code="ALT" displayName="ALT (SGPT)" /> < statusCode code="completed" /> <effectiveTime value="512275434417" /> <value unit="U/L" xsi:type="PQ" value="12" /> < interpretationCode codeSystem="local" code="*" /> <referenceRange> <observationRange> <text>14-54</text> </ observationRange> </referenceRange> </observation> </ component> <component> <observation moodCode="EVN" classCode="OBS"> <templateId root="06.08.840.1.722821.02.09.22.4.2" /> <id nullFlavor="NA" /> <code codeSystem="local" code="AGAP" displayName= "Anion Gap" /> <statusCode code="completed" /> <effectiveTime value="856115732148" /> <value unit="NA" xsi:type="PQ" value="10" /> <referenceRange> <observationRange> <text>3-20</ text> </observationRange> </referenceRange> </ observation> </component> <component> <observation moodCode= "EVN" classCode="OBS"> <templateId root="16.840.1.361781.10..22.4.2 " /> <id nullFlavor="NA" /> <code codeSystem="local" code="AST " displayName="AST (SGOT)" /> <statusCode code="completed" /> <effectiveTime value="630510641414" /> <value unit="U/L" xsi:type="PQ" value="17" /> <referenceRange> <observationRange> <text>15-41</text> </observationRange> </referenceRange > </observation> </component> <component> <observation moodCode="EVN" classCode="OBS"> <templateId root= "06.08.840.1.162789.10..22.4.2" /> <id nullFlavor="NA" /> < code codeSystem="local" code="BILIT" displayName="Bilirubin Total" /> < statusCode code="completed" /> <effectiveTime value="201418018392" /> <value unit="mg/dL" xsi:type="PQ" value="0.4" /> < referenceRange> <observationRange> <text>0.2-1.2</text> </observationRange> </referenceRange> </observation > </component> <component> <observation moodCode="EVN" classCode="OBS"> <templateId root="16.840.1.050494.10.20.22.4.2" /> <id nullFlavor="NA" /> <code codeSystem="local" code="BUN" displayName="BUN" /> <statusCode code="completed" /> < effectiveTime value="284187141459" /> <value unit="mg/dL" xsi:type="PQ " value="7" /> <referenceRange> <observationRange> <text>4-20</text> </observationRange> </referenceRange > </observation> </component> <component> <observation moodCode="EVN" classCode="OBS"> <templateId root= "06.08.840.1.965903.02.09.22.4.2" /> <id nullFlavor="NA" /> < code codeSystem="local" code="CA" displayName="Calcium" /> <statusCode code="completed" /> <effectiveTime value="116912033951" /> < value unit="mg/dL" xsi:type="PQ" value="9.5" /> <referenceRange> <observationRange> <text>8.6-10.0</text> </ observationRange> </referenceRange> </observation> </ component> <component> <observation moodCode="EVN" classCode="OBS"> <templateId root="216.840.1.694395.02.09.22.4.2" /> <id nullFlavor="NA" /> <code codeSystem="local" code="CL" displayName= "Chloride" /> <statusCode code="completed" /> <effectiveTime value="299243529978" /> <value unit="mEq/L" xsi:type="PQ" value="102" / > <referenceRange> <observationRange> <text>99- 109</text> </observationRange> </referenceRange> </ observation> </component> <component> <observation moodCode= "EVN" classCode="OBS"> <templateId root="16.840.1.281414.02.09.22.4.2 " /> <id nullFlavor="NA" /> <code codeSystem="local" code="CO2 " displayName="CO2" /> <statusCode code="completed" /> < effectiveTime value="732056628343" /> <value unit="mEq/L" xsi:type="PQ " value="24" /> <referenceRange> <observationRange> <text>22-32</text> </observationRange> </ referenceRange> </observation> </component> <component> <observation moodCode="EVN" classCode="OBS"> <templateId root= "06.08.840.1.652773.10.20.22.4.2" /> <id nullFlavor="NA" /> < code codeSystem="local" code="CREAT" displayName="Creatinine" /> < statusCode code="completed" /> <effectiveTime value="412270879055" /> <value unit="mg/dL" xsi:type="PQ" value="0.61" /> < referenceRange> <observationRange> <text>0.44-1.03</text > </observationRange> </referenceRange> </observation > </component> <component> <observation moodCode="EVN" classCode="OBS"> <templateId root="06.08.840.1.295466.10.22.4.2" /> <id nullFlavor="NA" /> <code codeSystem="local" code="GLOB" displayName="Globulin" /> <statusCode code="completed" /> < effectiveTime value="025442526329" /> <value unit="g/dL" xsi:type="PQ" value="2.9" /> <referenceRange> <observationRange> <text>1.9-4.3</text> </observationRange> </ referenceRange> </observation> </component> <component> <observation moodCode="EVN" classCode="OBS"> <templateId root= "06.08.840.1.703359.10.20.22.4.2" /> <id nullFlavor="NA" /> < code codeSystem="local" code="GLU" displayName="Glucose" /> < statusCode code="completed" /> <effectiveTime value="817666506509" /> <value unit="mg/dL" xsi:type="PQ" value="114" /> < interpretationCode codeSystem="local" code="*" /> <referenceRange> <observationRange> <text>70-100</text> </ observationRange> </referenceRange> </observation> </ component> <component> <observation moodCode="EVN" classCode="OBS"> <templateId root="06.08.840.1.131304.10.20.22.4.2" /> <id nullFlavor="NA" /> <code codeSystem="local" code="K" displayName= "Potassium" /> <statusCode code="completed" /> <effectiveTime value="863190809495" /> <value unit="mEq/L" xsi:type="PQ" value="3.6" / > <referenceRange> <observationRange> <text>3.6 -5.1</text> </observationRange> </referenceRange> </ observation> </component> <component> <observation moodCode= "EVN" classCode="OBS"> <templateId root="840.1.969458.22.4.2 " /> <id nullFlavor="NA" /> <code codeSystem="local" code="TP " displayName="Protein" /> <statusCode code="completed" /> < effectiveTime value="546641236817" /> <value unit="g/dL" xsi:type="PQ" value="7.8" /> <referenceRange> <observationRange> <text>6.1-7.9</text> </observationRange> </ referenceRange> </observation> </component> <component> <observation moodCode="EVN" classCode="OBS"> <templateId root= "840.1.052834..2022.4.2" /> <id nullFlavor="NA" /> < code codeSystem="local" code="NA" displayName="Sodium" /> <statusCode code="completed" /> <effectiveTime value="095705898531" /> < value unit="mEq/L" xsi:type="PQ" value="136" /> <referenceRange> <observationRange> <text>136-144</text> </ observationRange> </referenceRange> </observation> </ component> </organizer> </entry> <entry> <organizer moodCode="EVN" classCode="BATTERY"> <templateId root="06.08.840.1.896265.10..22.4.1" /> <id nullFlavor="NA" /> <code codeSystem="local" code="GFR" displayName ="eGFR" /> <statusCode code="completed" /> <component> < observation moodCode="EVN" classCode="OBS"> <templateId root= "06.08.840.1.120285.10...4.2" /> <id nullFlavor="NA" /> < code codeSystem="local" code="GFR" displayName="eGFR" /> <statusCode code="completed" /> <effectiveTime value="322181265516" /> < value unit="NA" xsi:type="PQ" value=">60" /> <referenceRange> <observationRange> <text>>60</text> </ observationRange> </referenceRange> </observation> </ component> </organizer> </entry> <entry> <organizer moodCode="EVN" classCode="BATTERY"> <templateId root="06.08.840.1.101136.10..22.4.1" /> <id nullFlavor="NA" /> <code codeSystem="local" code="TROP" displayName="Troponin" /> <statusCode code="completed" /> <component> <observation moodCode="EVN" classCode="OBS"> <templateId root= "840.1.599908.10..22.4.2" /> <id nullFlavor="NA" /> < code codeSystem="local" code="TROP" displayName="Troponin" /> < statusCode code="completed" /> <effectiveTime value="568017672883" /> <value unit="ng/mL" xsi:type="PQ" value="<0.05" /> < referenceRange> <observationRange> <text><0.06</text > </observationRange> </referenceRange> </observation > </component> </organizer> </entry> <entry> <organizer moodCode= "EVN" classCode="BATTERY"> <templateId root="216.840.1.717214.10.22.4.1 " /> <id nullFlavor="NA" /> <code codeSystem="local" code="TSHR" displayName="TSH with Reflex Free T4" /> <statusCode code="completed" /> <component> <observation moodCode="EVN" classCode="OBS"> < templateId root="2.16.840.1.673908.10..22.4.2" /> <id nullFlavor="NA " /> <code codeSystem="local" code="TSHR" displayName="TSH with Reflex Free T4" /> <statusCode code="completed" /> <effectiveTime value="195082190718" /> <value unit="uIU/mL" xsi:type="PQ" value="1.50 " /> <referenceRange> <observationRange> <text> 0.35-5.50</text> </observationRange> </referenceRange> </observation> </component> </organizer> </entry> <entry> < organizer moodCode="EVN" classCode="BATTERY"> <templateId root= "216.840.1.042081.02.09.22.4.1" /> <id nullFlavor="NA" /> <code codeSystem="local" code="PREGN" displayName=" Screen, Urine NPT" /> <statusCode code="completed" /> <component> <observation moodCode ="EVN" classCode="OBS"> <templateId root= "16.840.1.712214.10..4.2" /> <id nullFlavor="NA" /> < code codeSystem="local" code="PREGN" displayName=" Screen, Urine NPT" / > <statusCode code="completed" /> <effectiveTime value= "261858501416" /> <value unit="NA" xsi:type="PQ" value="Negative" /> <referenceRange> <observationRange> <text /> </observationRange> </referenceRange> </observation> </component> </organizer> </entry> <entry> <organizer moodCode="EVN " classCode="BATTERY"> <templateId root="16.840.1.042795.10...4.1" / > <id nullFlavor="NA" /> <code codeSystem="local" code="CBCD" displayName="CBC W/DIFF" /> <statusCode code="completed" /> <component > <observation moodCode="EVN" classCode="OBS"> <templateId root= "06.08.840.1.223889.10..22.4.2" /> <id nullFlavor="NA" /> < code codeSystem="local" code="EO#" displayName="EOSINOPHIL #" /> < statusCode code="completed" /> <effectiveTime value="598686239830" /> <value unit="k/cumm" xsi:type="PQ" value="0.1" /> < referenceRange> <observationRange> <text>0.1-0.5</text> </observationRange> </referenceRange> </observation > </component> <component> <observation moodCode="EVN" classCode="OBS"> <templateId root="216.840.1.655150.10.20.4.2" /> <id nullFlavor="NA" /> <code codeSystem="local" code="EO% " displayName="EOSINOPHIL %" /> <statusCode code="completed" /> <effectiveTime value="418169994116" /> <value unit="%" xsi: type="PQ" value="1" /> <interpretationCode codeSystem="local" code="*" /> <referenceRange> <observationRange> <text>2- 4</text> </observationRange> </referenceRange> </ observation> </component> <component> <observation moodCode= "EVN" classCode="OBS"> <templateId root="06.08.840.1.366299.02.09.224.2 " /> <id nullFlavor="NA" /> <code codeSystem="local" code="GR# " displayName="GRANULOCYTE #" /> <statusCode code="completed" /> <effectiveTime value="124186125998" /> <value unit="k/cumm" xsi: type="PQ" value="3.5" /> <referenceRange> <observationRange > <text>2.0-9.0</text> </observationRange> </ referenceRange> </observation> </component> <component> <observation moodCode="EVN" classCode="OBS"> <templateId root= "16.840.1.533842.02.09.22.4.2" /> <id nullFlavor="NA" /> < code codeSystem="local" code="GR%" displayName="GRANULOCYTE %" /> <statusCode code="completed" /> <effectiveTime value="383103924752 " /> <value unit="%" xsi:type="PQ" value="47" /> < interpretationCode codeSystem="local" code="*" /> <referenceRange> <observationRange> <text>50-75</text> </ observationRange> </referenceRange> </observation> </ component> <component> <observation moodCode="EVN" classCode="OBS"> <templateId root="216.840.1.964538.10..22.4.2" /> <id nullFlavor="NA" /> <code codeSystem="local" code="LY#" displayName= "LYMPHOCYTE #" /> <statusCode code="completed" /> < effectiveTime value="321047017639" /> <value unit="k/cumm" xsi:type="PQ " value="3.1" /> <referenceRange> <observationRange> <text>1.0-4.0</text> </observationRange> </ referenceRange> </observation> </component> <component> <observation moodCode="EVN" classCode="OBS"> <templateId root= "2.16.840.1.250156.10.20.22.4.2" /> <id nullFlavor="NA" /> < code codeSystem="local" code="LY%" displayName="LYMPHOCYTE %" /> <statusCode code="completed" /> <effectiveTime value="248427903262" /> <value unit="%" xsi:type="PQ" value="42" /> < interpretationCode codeSystem="local" code="*" /> <referenceRange> <observationRange> <text>20-30</text> </ observationRange> </referenceRange> </observation> </ component> <component> <observation moodCode="EVN" classCode="OBS"> <templateId root="06.08.840.1.252429.10.20.22.4.2" /> <id nullFlavor="NA" /> <code codeSystem="local" code="MCH" displayName= "MEAN CELL HGB" /> <statusCode code="completed" /> < effectiveTime value="" /> <value unit="pg" xsi:type="PQ" value="33.8" /> <interpretationCode codeSystem="local" code="*" /> <referenceRange> <observationRange> <text>27.0- 33.0</text> </observationRange> </referenceRange> </ observation> </component> <component> <observation moodCode= "EVN" classCode="OBS"> <templateId root="06.08.840.1.476460.10.4.2 " /> <id nullFlavor="NA" /> <code codeSystem="local" code= "MCHC" displayName="MEAN CELL HGB CONCENTRATION" /> <statusCode code= "completed" /> <effectiveTime value="" /> <value unit="g/dL" xsi:type="PQ" value="32.8" /> <referenceRange> < observationRange> <text>32.0-37.0</text> </ observationRange> </referenceRange> </observation> </ component> <component> <observation moodCode="EVN" classCode="OBS"> <templateId root="06.08.840.1.331935.10.20.22.4.2" /> <id nullFlavor="NA" /> <code codeSystem="local" code="MCV" displayName= "MEAN CELL VOLUME" /> <statusCode code="completed" /> < effectiveTime value="" /> <value unit="fl" xsi:type="PQ" value="103.0" /> <interpretationCode codeSystem="local" code="*" /> <referenceRange> <observationRange> <text>80.0- 100.0</text> </observationRange> </referenceRange> </ observation> </component> <component> <observation moodCode= "EVN" classCode="OBS"> <templateId root="2.16.840.1.423828.02.09.22.4.2 " /> <id nullFlavor="NA" /> <code codeSystem="local" code="MO# " displayName="MONOCYTE #" /> <statusCode code="completed" /> <effectiveTime value="211755213536" /> <value unit="k/cumm" xsi:type= "PQ" value="0.7" /> <referenceRange> <observationRange> <text>0.1-1.0</text> </observationRange> </ referenceRange> </observation> </component> <component> <observation moodCode="EVN" classCode="OBS"> <templateId root= "2.16.840.1.140364.02.09.22.4.2" /> <id nullFlavor="NA" /> < code codeSystem="local" code="MO%" displayName="MONOCYTE %" /> <statusCode code="completed" /> <effectiveTime value="445238688621" /> <value unit="%" xsi:type="PQ" value="10" /> < interpretationCode codeSystem="local" code="*" /> <referenceRange> <observationRange> <text>4-6</text> </ observationRange> </referenceRange> </observation> </ component> <component> <observation moodCode="EVN" classCode="OBS"> <templateId root="2.16.840.1.537168.10.4.2" /> <id nullFlavor="NA" /> <code codeSystem="local" code="RBC" displayName=" RED BLOOD CELL" /> <statusCode code="completed" /> < effectiveTime value="" /> <value unit="m/cumm" xsi:type="PQ " value="3.61" /> <interpretationCode codeSystem="local" code="*" /> <referenceRange> <observationRange> <text>4.00- 6.00</text> </observationRange> </referenceRange> </ observation> </component> <component> <observation moodCode= "EVN" classCode="OBS"> <templateId root="216.840.1.813685.02.09.224.2 " /> <id nullFlavor="NA" /> <code codeSystem="local" code="RDW " displayName="RED CELL DISTRIBUTION WIDTH" /> <statusCode code= "completed" /> <effectiveTime value="" /> <value unit="%" xsi:type="PQ" value="11.9" /> <referenceRange> <observationRange> <text>11.0-15.6</text> </ observationRange> </referenceRange> </observation> </ component> <component> <observation moodCode="EVN" classCode="OBS"> <templateId root="216.840.1.060803.02.09.22.4.2" /> <id nullFlavor="NA" /> <code codeSystem="local" code="WBC" displayName= "WHITE BLOOD CELL" /> <statusCode code="completed" /> < effectiveTime value="" /> <value unit="k/cumm" xsi:type="PQ " value="7.5" /> <referenceRange> <observationRange> <text>5.0-10.0</text> </observationRange> </ referenceRange> </observation> </component> <component> <observation moodCode="EVN" classCode="OBS"> <templateId root= "2.16.840.1.853728.10..4.2" /> <id nullFlavor="NA" /> < code codeSystem="local" code="HGBT" displayName="HEMOGLOBIN" /> < statusCode code="completed" /> <effectiveTime value="" /> <value unit="gm/dL" xsi:type="PQ" value="12.2" /> < referenceRange> <observationRange> <text>12.0-16.0</text > </observationRange> </referenceRange> </observation > </component> <component> <observation moodCode="EVN" classCode="OBS"> <templateId root="216.840.1.774957.02.09.22.4.2" /> <id nullFlavor="NA" /> <code codeSystem="local" code="HCTT" displayName="HEMATOCRIT" /> <statusCode code="completed" /> < effectiveTime value="" /> <value unit="%" xsi:type="PQ " value="37.2" /> <referenceRange> <observationRange> <text>37.0-47.0</text> </observationRange> </ referenceRange> </observation> </component> <component> <observation moodCode="EVN" classCode="OBS"> <templateId root= "216.840.1.607167....4.2" /> <id nullFlavor="NA" /> < code codeSystem="local" code="PLT" displayName="PLATELET COUNT" /> < statusCode code="completed" /> <effectiveTime value="" /> <value unit="k/cumm" xsi:type="PQ" value="299" /> < referenceRange> <observationRange> <text>150-450</text> </observationRange> </referenceRange> </observation > </component> </organizer> </entry> <entry> <organizer moodCode= "EVN" classCode="BATTERY"> <templateId root="16.840.1.412974.10..22.4.1 " /> <id nullFlavor="NA" /> <code codeSystem="local" code="iCHEM8" displayName="CHEM/HEM PROFILE-BEDSIDE" /> <statusCode code="completed" /> <component> <observation moodCode="EVN" classCode="OBS"> < templateId root="16.840.1.073140.10...4.2" /> <id nullFlavor="NA " /> <code codeSystem="local" code="K" displayName="POTASSIUM" /> <statusCode code="completed" /> <effectiveTime value="881137232147 " /> <value unit="mmol/L" xsi:type="PQ" value="3.8" /> < referenceRange> <observationRange> <text>3.5-5.3</text> </observationRange> </referenceRange> </observation > </component> <component> <observation moodCode="EVN" classCode="OBS"> <templateId root="06.08.840.1.800714.10..4.2" /> <id nullFlavor="NA" /> <code codeSystem="local" code="CMETHOD " displayName="METHOD" /> <statusCode code="completed" /> < effectiveTime value="657523556526" /> <value unit="" xsi:type="PQ" value="Bedside" /> <referenceRange> <observationRange> <text /> </observationRange> </referenceRange> </observation> </component> <component> <observation moodCode="EVN" classCode="OBS"> <templateId root= "216.840.1.860407.02.09.22.4.2" /> <id nullFlavor="NA" /> < code codeSystem="local" code="GAP" displayName="ANION GAP" /> < statusCode code="completed" /> <effectiveTime value="" /> <value unit="mmol/L" xsi:type="PQ" value="19" /> < referenceRange> <observationRange> <text>10-20</text> </observationRange> </referenceRange> </observation> </component> <component> <observation moodCode="EVN" classCode= "OBS"> <templateId root="216.840.1.889428.02.09.22.4.2" /> < id nullFlavor="NA" /> <code codeSystem="local" code="HMETHOD" displayName="METHOD" /> <statusCode code="completed" /> < effectiveTime value="" /> <value unit="" xsi:type="PQ" value="Bedside" /> <referenceRange> <observationRange> <text /> </observationRange> </referenceRange> </observation> </component> <component> <observation moodCode="EVN" classCode="OBS"> <templateId root= "16.840.1.406763.22.4.2" /> <id nullFlavor="NA" /> < code codeSystem="local" code="GLU" displayName="GLUCOSE" /> < statusCode code="completed" /> <effectiveTime value="" /> <value unit="mg/dL" xsi:type="PQ" value="110" /> < interpretationCode codeSystem="local" code="*" /> <referenceRange> <observationRange> <text>70-99</text> </ observationRange> </referenceRange> </observation> </ component> <component> <observation moodCode="EVN" classCode="OBS"> <templateId root="216.840.1.622346.10..22.4.2" /> <id nullFlavor="NA" /> <code codeSystem="local" code="BUN" displayName= "BLOOD UREA NITROGEN" /> <statusCode code="completed" /> < effectiveTime value="325006150363" /> <value unit="mg/dL" xsi:type="PQ " value="14" /> <referenceRange> <observationRange> <text>7-20</text> </observationRange> </referenceRange > </observation> </component> <component> <observation moodCode="EVN" classCode="OBS"> <templateId root= "06.08.840.1.176420...4.2" /> <id nullFlavor="NA" /> < code codeSystem="local" code="CREAT" displayName="CREATININE" /> < statusCode code="completed" /> <effectiveTime value="245265817044" /> <value unit="mg/dL" xsi:type="PQ" value="0.7" /> < referenceRange> <observationRange> <text>0.6-1.0</text> </observationRange> </referenceRange> </observation > </component> <component> <observation moodCode="EVN" classCode="OBS"> <templateId root="06.08.840.1.801414.10..22.4.2" /> <id nullFlavor="NA" /> <code codeSystem="local" code="HGBT" displayName="HEMOGLOBIN" /> <statusCode code="completed" /> < effectiveTime value="868103894154" /> <value unit="gm/dL" xsi:type="PQ " value="12.6" /> <referenceRange> <observationRange> <text>12.0-16.0</text> </observationRange> </ referenceRange> </observation> </component> <component> <observation moodCode="EVN" classCode="OBS"> <templateId root= "16.840.1.856028.10...4.2" /> <id nullFlavor="NA" /> < code codeSystem="local" code="HCTT" displayName="HEMATOCRIT" /> < statusCode code="completed" /> <effectiveTime value="094931553650" /> <value unit="%" xsi:type="PQ" value="37.0" /> < referenceRange> <observationRange> <text>37.0-47.0</text > </observationRange> </referenceRange> </observation > </component> <component> <observation moodCode="EVN" classCode="OBS"> <templateId root="06.08.840.1.112494....4.2" /> <id nullFlavor="NA" /> <code codeSystem="local" code="NA" displayName="SODIUM" /> <statusCode code="completed" /> < effectiveTime value="834784209362" /> <value unit="mmol/L" xsi:type="PQ " value="143" /> <referenceRange> <observationRange> <text>135-148</text> </observationRange> </ referenceRange> </observation> </component> <component> <observation moodCode="EVN" classCode="OBS"> <templateId root= "06.08.840.1.365628.10...4.2" /> <id nullFlavor="NA" /> < code codeSystem="local" code="CL" displayName="CHLORIDE" /> < statusCode code="completed" /> <effectiveTime value="" /> <value unit="mmol/L" xsi:type="PQ" value="104" /> < referenceRange> <observationRange> <text>98-110</text> </observationRange> </referenceRange> </observation> </component> <component> <observation moodCode="EVN" classCode ="OBS"> <templateId root="2.16.840.1.042681.10.20.22.4.2" /> < id nullFlavor="NA" /> <code codeSystem="local" code="CO2" displayName= "CARBON DIOXIDE" /> <statusCode code="completed" /> < effectiveTime value="480821699133" /> <value unit="mmol/L" xsi:type="PQ " value="25" /> <referenceRange> <observationRange> <text>21-32</text> </observationRange> </ referenceRange> </observation> </component> <component> <observation moodCode="EVN" classCode="OBS"> <templateId root= "2.16.840.1.546117.10..22.4.2" /> <id nullFlavor="NA" /> < code codeSystem="local" code="CAION" displayName="CALCIUM IONIZED" /> < statusCode code="completed" /> <effectiveTime value="277662096628" /> <value unit="mg/dL" xsi:type="PQ" value="4.8" /> < referenceRange> <observationRange> <text>4.5-5.3</text> </observationRange> </referenceRange> </observation > </component> </organizer> </entry> <entry> <organizer moodCode= "EVN" classCode="BATTERY"> <templateId root="06.08.840.1.701890.02.09.22.4.1 " /> <id nullFlavor="NA" /> <code codeSystem="local" code="PREGU" displayName="UR TEST" /> <statusCode code="completed" /> < component> <observation moodCode="EVN" classCode="OBS"> < templateId root="840.1.432771.02.09.224.2" /> <id nullFlavor="NA " /> <code codeSystem="local" code="PREGU" displayName="UR TEST" /> <statusCode code="completed" /> <effectiveTime value= "768986473783" /> <value unit="" xsi:type="PQ" value="NEGATIVE" /> <referenceRange> <observationRange> <text>NEGATIVE </text> </observationRange> </referenceRange> </ observation> </component> </organizer> </entry> <entry> <organizer moodCode="EVN" classCode="BATTERY"> <templateId root= "840.1.219148.02.09.224.1" /> <id nullFlavor="NA" /> <code codeSystem="local" code="UA" displayName="URINALYSIS, ROUTINE" /> < statusCode code="completed" /> <component> <observation moodCode= "EVN" classCode="OBS"> <templateId root="06.08.840.1.261626.02.09.22.4.2 " /> <id nullFlavor="NA" /> <code codeSystem="local" code= "LEUESU" displayName="UA LEUKOCYTE ESTERASE DIPSTICK" /> <statusCode code="completed" /> <effectiveTime value="531305569013" /> < value unit="" xsi:type="PQ" value="1+" /> <referenceRange> < observationRange> <text>NEGATIVE</text> </ observationRange> </referenceRange> </observation> </ component> <component> <observation moodCode="EVN" classCode="OBS"> <templateId root="16.840.1.673628.10.22.4.2" /> <id nullFlavor="NA" /> <code codeSystem="local" code="NITRIU" displayName= "UA NITRITE DIPSTICK" /> <statusCode code="completed" /> < effectiveTime value="" /> <value unit="" xsi:type="PQ" value="NEGATIVE" /> <referenceRange> <observationRange> <text>NEGATIVE</text> </observationRange> </ referenceRange> </observation> </component> <component> <observation moodCode="EVN" classCode="OBS"> <templateId root= "06.08.840.1.234696.1022.4.2" /> <id nullFlavor="NA" /> < code codeSystem="local" code="PROTEIU" displayName="UA PROTEIN DIPSTICK" /> <statusCode code="completed" /> <effectiveTime value= "" /> <value unit="" xsi:type="PQ" value="TRACE" /> <referenceRange> <observationRange> <text>NEGATIVE</ text> </observationRange> </referenceRange> </ observation> </component> <component> <observation moodCode= "EVN" classCode="OBS"> <templateId root="06.08.840.1.230274.102022.4.2 " /> <id nullFlavor="NA" /> <code codeSystem="local" code= "DGLUU" displayName="UA GLUCOSE DIPSTICK" /> <statusCode code= "completed" /> <effectiveTime value="111488272693" /> <value unit="" xsi:type="PQ" value="NEGATIVE" /> <referenceRange> < observationRange> <text>NEGATIVE</text> </ observationRange> </referenceRange> </observation> </ component> <component> <observation moodCode="EVN" classCode="OBS"> <templateId root="06.08.840.1.894757.02.09.22.4.2" /> <id nullFlavor="NA" /> <code codeSystem="local" code="KETONU" displayName= "UA KETONE DIPSTICK" /> <statusCode code="completed" /> < effectiveTime value="128892383602" /> <value unit="" xsi:type="PQ" value="NEGATIVE" /> <referenceRange> <observationRange> <text>NEGATIVE</text> </observationRange> </ referenceRange> </observation> </component> <component> <observation moodCode="EVN" classCode="OBS"> <templateId root= "06.08.840.1.239849.02.09.22.4.2" /> <id nullFlavor="NA" /> < code codeSystem="local" code="UROBILU" displayName="UA UROBILINOGEN DIPSTICK" / > <statusCode code="completed" /> <effectiveTime value= "538388867754" /> <value unit="" xsi:type="PQ" value="NORMAL" /> <referenceRange> <observationRange> <text>NORMAL</ text> </observationRange> </referenceRange> </ observation> </component> <component> <observation moodCode= "EVN" classCode="OBS"> <templateId root="06.08.840.1.052133..22.4.2 " /> <id nullFlavor="NA" /> <code codeSystem="local" code= "BILU" displayName="UA BILIRUBIN DIPSTICK" /> <statusCode code= "completed" /> <effectiveTime value="355576430087" /> <value unit="" xsi:type="PQ" value="NEGATIVE" /> <referenceRange> < observationRange> <text>NEGATIVE</text> </ observationRange> </referenceRange> </observation> </ component> <component> <observation moodCode="EVN" classCode="OBS"> <templateId root="16.840.1.080731.10.4.2" /> <id nullFlavor="NA" /> <code codeSystem="local" code="SPENCER" displayName="UA BLOOD DIPSTICK" /> <statusCode code="completed" /> < effectiveTime value="669277830854" /> <value unit="" xsi:type="PQ" value="4+" /> <referenceRange> <observationRange> <text>NEGATIVE</text> </observationRange> </ referenceRange> </observation> </component> <component> <observation moodCode="EVN" classCode="OBS"> <templateId root= "06.08.840.1.320659.02.09.22.4.2" /> <id nullFlavor="NA" /> < code codeSystem="local" code="SPGRU" displayName="UA SPECIFIC GRAVITY" /> <statusCode code="completed" /> <effectiveTime value="127753171638 " /> <value unit="" xsi:type="PQ" value="1.015" /> < referenceRange> <observationRange> <text>1.015-1.025</ text> </observationRange> </referenceRange> </ observation> </component> <component> <observation moodCode= "EVN" classCode="OBS"> <templateId root="16.840.1.797385.02.09.22.4.2 " /> <id nullFlavor="NA" /> <code codeSystem="local" code="FEROZ " displayName="UR PH" /> <statusCode code="completed" /> < effectiveTime value="940384031216" /> <value unit="" xsi:type="PQ" value="8.0" /> <interpretationCode codeSystem="local" code="*" /> <referenceRange> <observationRange> <text>5.0-7.0</ text> </observationRange> </referenceRange> </ observation> </component> </organizer> </entry> <entry> <organizer moodCode="EVN" classCode="BATTERY"> <templateId root= "06.08.840.1.759058.02.09.224.1" /> <id nullFlavor="NA" /> <code codeSystem="local" code="UAMICRO" displayName="UA MICROSCOPIC" /> < statusCode code="completed" /> <component> <observation moodCode= "EVN" classCode="OBS"> <templateId root="840.1.381501.02.09.22.4.2 " /> <id nullFlavor="NA" /> <code codeSystem="local" code= "AMORPU" displayName="UA AMORPHOUS SEDIMENT" /> <statusCode code= "completed" /> <effectiveTime value="258887707894" /> <value unit="" xsi:type="PQ" value="4+" /> <referenceRange> < observationRange> <text /> </observationRange> </referenceRange> </observation> </component> <component> <observation moodCode="EVN" classCode="OBS"> <templateId root= "06.08.840.1.794509.02.09.22.4.2" /> <id nullFlavor="NA" /> < code codeSystem="local" code="BACU" displayName="UA BACTERIA" /> < statusCode code="completed" /> <effectiveTime value="525158248250" /> <value unit="" xsi:type="PQ" value="2+" /> <referenceRange> <observationRange> <text>NEGATIVE</text> </ observationRange> </referenceRange> </observation> </ component> <component> <observation moodCode="EVN" classCode="OBS"> <templateId root="06.08.840.1.168326..22.4.2" /> <id nullFlavor="NA" /> <code codeSystem="local" code="EPIU" displayName=" UA EPITHELIAL CELLS" /> <statusCode code="completed" /> < effectiveTime value="181583667671" /> <value unit="epi/hpf" xsi:type= "PQ" value="1+" /> <referenceRange> <observationRange> <text>0 - 1+</text> </observationRange> </ referenceRange> </observation> </component> <component> <observation moodCode="EVN" classCode="OBS"> <templateId root= "840.1.958101.02.09.22.4.2" /> <id nullFlavor="NA" /> < code codeSystem="local" code="MUCUSU" displayName="UA MUCUS" /> < statusCode code="completed" /> <effectiveTime value="005317582661" /> <value unit="" xsi:type="PQ" value="2+" /> <referenceRange> <observationRange> <text>NEG TO 1+</text> </ observationRange> </referenceRange> </observation> </ component> <component> <observation moodCode="EVN" classCode="OBS"> <templateId root="06.08.840.1.237587.02.09.22.4.2" /> <id nullFlavor="NA" /> <code codeSystem="local" code="RBCU" displayName=" UA RBC" /> <statusCode code="completed" /> <effectiveTime value="947206664643" /> <value unit="rbc/hpf" xsi:type="PQ" value="0-3 " /> <referenceRange> <observationRange> <text> 0 - 3</text> </observationRange> </referenceRange> </ observation> </component> <component> <observation moodCode= "EVN" classCode="OBS"> <templateId root="2.16.840.1.080223.02.09.22.4.2 " /> <id nullFlavor="NA" /> <code codeSystem="local" code= "UAVOL" displayName="UA VOLUME FOR EXAM" /> <statusCode code="completed " /> <effectiveTime value="912470183196" /> <value unit="mL" xsi:type="PQ" value="12.0" /> <referenceRange> < observationRange> <text>(12mL STD)</text> </ observationRange> </referenceRange> </observation> </ component> <component> <observation moodCode="EVN" classCode="OBS"> <templateId root="2.16.840.1.179666.02.09.22.4.2" /> <id nullFlavor="NA" /> <code codeSystem="local" code="WBCU" displayName=" UA WBC" /> <statusCode code="completed" /> <effectiveTime value="773786668006" /> <value unit="wbc/hpf" xsi:type="PQ" value="5-10 " /> <referenceRange> <observationRange> <text> 0 - 5</text> </observationRange> </referenceRange> </ observation> </component> </organizer> </entry> <entry> <organizer moodCode="EVN" classCode="BATTERY"> <templateId root= "2.16.840.1.628686.10.20.22.4.1" /> <id nullFlavor="NA" /> <code codeSystem="local" code="DRUGAB" displayName="UR DRUGS OF ABUSE SCREEN" /> <statusCode code="completed" /> <component> <observation moodCode= "EVN" classCode="OBS"> <templateId root="2.16.840.1.988455.10..22.4.2 " /> <id nullFlavor="NA" /> <code codeSystem="local" code= "AMPHU" displayName="UR AMPHETAMINES SCREEN" /> <statusCode code= "completed" /> <effectiveTime value="" /> <value unit="" xsi:type="PQ" value="NEG (<1000 ng/mL)" /> <referenceRange > <observationRange> <text>NEGATIVE</text> </ observationRange> </referenceRange> </observation> </ component> <component> <observation moodCode="EVN" classCode="OBS"> <templateId root="2.16.840.1.082392.10..22.4.2" /> <id nullFlavor="NA" /> <code codeSystem="local" code="BARBU" displayName= "UR BARBITURATE SCREEN" /> <statusCode code="completed" /> < effectiveTime value="" /> <value unit="" xsi:type="PQ" value="NEG (< 200 ng/mL)" /> <referenceRange> < observationRange> <text>NEGATIVE</text> </ observationRange> </referenceRange> </observation> </ component> <component> <observation moodCode="EVN" classCode="OBS"> <templateId root="216.840.1.117819.22.4.2" /> <id nullFlavor="NA" /> <code codeSystem="local" code="DAUCOMMENT" displayName="DRUGS OF ABUSE SCREEN COMMENT" /> <statusCode code= "completed" /> <effectiveTime value="" /> <value unit="" xsi:type="PQ" value="" /> <referenceRange> < observationRange> <text /> </observationRange> </referenceRange> </observation> </component> <component> <observation moodCode="EVN" classCode="OBS"> <templateId root= "2.16.840.1.475717.02.09.22.4.2" /> <id nullFlavor="NA" /> < code codeSystem="local" code="OPIU" displayName="UR OPIATES SCREEN" /> <statusCode code="completed" /> <effectiveTime value="" /> <value unit="" xsi:type="PQ" value="NEG (< 300 ng/mL)" /> <referenceRange> <observationRange> <text>NEGATIVE</ text> </observationRange> </referenceRange> </ observation> </component> <component> <observation moodCode= "EVN" classCode="OBS"> <templateId root="216.840.1.200509.02.09.22.4.2 " /> <id nullFlavor="NA" /> <code codeSystem="local" code= "PCPU" displayName="UR PHENCYCLIDINE (PCP) SCREEN" /> <statusCode code= "completed" /> <effectiveTime value="" /> <value unit="" xsi:type="PQ" value="NEG (< 25 ng/mL)" /> <referenceRange > <observationRange> <text>NEGATIVE</text> </ observationRange> </referenceRange> </observation> </ component> <component> <observation moodCode="EVN" classCode="OBS"> <templateId root="2.16.840.1.582844.10..22.4.2" /> <id nullFlavor="NA" /> <code codeSystem="local" code="THCU" displayName=" UR CANNABINOIDS (THC) SCREEN" /> <statusCode code="completed" /> <effectiveTime value="" /> <value unit="" xsi:type="PQ " value="NEG (< 50 ng/mL)" /> <referenceRange> < observationRange> <text>NEGATIVE</text> </ observationRange> </referenceRange> </observation> </ component> <component> <observation moodCode="EVN" classCode="OBS"> <templateId root="216.840.1.676999...4.2" /> <id nullFlavor="NA" /> <code codeSystem="local" code="COCAU" displayName= "UR COCAINE METABOLITE SCREEN" /> <statusCode code="completed" /> <effectiveTime value="" /> <value unit="" xsi:type="PQ " value="NEG (< 300 ng/mL)" /> <referenceRange> < observationRange> <text>NEGATIVE</text> </ observationRange> </referenceRange> </observation> </ component> <component> <observation moodCode="EVN" classCode="OBS"> <templateId root="2.16.840.1.641760.10...4.2" /> <id nullFlavor="NA" /> <code codeSystem="local" code="METHU" displayName= "UR METHADONE SCREEN" /> <statusCode code="completed" /> < effectiveTime value="" /> <value unit="" xsi:type="PQ" value="NEG (< 300 ng/mL)" /> <referenceRange> < observationRange> <text>NEGATIVE</text> </ observationRange> </referenceRange> </observation> </ component> <component> <observation moodCode="EVN" classCode="OBS"> <templateId root="216.840.1.995055.10..22.4.2" /> <id nullFlavor="NA" /> <code codeSystem="local" code="BENZU" displayName= "UR BENZODIAZEPINE SCREEN" /> <statusCode code="completed" /> <effectiveTime value="[id number]" /> <value unit="" xsi:type="PQ" value="NEG (< 200 ng/mL)" /> <referenceRange> < observationRange> <text>NEGATIVE</text> </ observationRange> </referenceRange> </observation> </ component> </organizer> </entry> <entry> <organizer moodCode="EVN" classCode="BATTERY"> <templateId root="16.840.1.063438.10..22.4.1" /> <id nullFlavor="NA" /> <code codeSystem="local" code="UA" displayName= "URINALYSIS, ROUTINE" /> <statusCode code="completed" /> <component> <observation moodCode="EVN" classCode="OBS"> <templateId root= "16.840.1.218527.10..22.4.2" /> <id nullFlavor="NA" /> < code codeSystem="local" code="LEUESU" displayName="UA LEUKOCYTE ESTERASE DIPSTICK" /> <statusCode code="completed" /> <effectiveTime value="526093621949" /> <value unit="" xsi:type="PQ" value="TRACE" /> <referenceRange> <observationRange> <text> NEGATIVE</text> </observationRange> </referenceRange> </observation> </component> <component> <observation moodCode ="EVN" classCode="OBS"> <templateId root= "216.840.1.061279.02.09.22.4.2" /> <id nullFlavor="NA" /> < code codeSystem="local" code="NITRIU" displayName="UA NITRITE DIPSTICK" /> <statusCode code="completed" /> <effectiveTime value=" " /> <value unit="" xsi:type="PQ" value="NEGATIVE" /> < referenceRange> <observationRange> <text>NEGATIVE</text > </observationRange> </referenceRange> </observation > </component> <component> <observation moodCode="EVN" classCode="OBS"> <templateId root="06.08.840.1.954022.02.09.22.4.2" /> <id nullFlavor="NA" /> <code codeSystem="local" code="PROTEIU " displayName="UA PROTEIN DIPSTICK" /> <statusCode code="completed" /> <effectiveTime value="" /> <value unit="" xsi: type="PQ" value="1+" /> <referenceRange> <observationRange> <text>NEGATIVE</text> </observationRange> </ referenceRange> </observation> </component> <component> <observation moodCode="EVN" classCode="OBS"> <templateId root= "06.08.840.1.795992.10.4.2" /> <id nullFlavor="NA" /> < code codeSystem="local" code="DGLUU" displayName="UA GLUCOSE DIPSTICK" /> <statusCode code="completed" /> <effectiveTime value=" " /> <value unit="" xsi:type="PQ" value="NEGATIVE" /> < referenceRange> <observationRange> <text>NEGATIVE</text > </observationRange> </referenceRange> </observation > </component> <component> <observation moodCode="EVN" classCode="OBS"> <templateId root="06.08.840.1.455913.10...4.2" /> <id nullFlavor="NA" /> <code codeSystem="local" code="KETONU" displayName="UA KETONE DIPSTICK" /> <statusCode code="completed" /> <effectiveTime value="896268178755" /> <value unit="" xsi:type= "PQ" value="2+" /> <referenceRange> <observationRange> <text>NEGATIVE</text> </observationRange> </ referenceRange> </observation> </component> <component> <observation moodCode="EVN" classCode="OBS"> <templateId root= "840.1.742768.10.4.2" /> <id nullFlavor="NA" /> < code codeSystem="local" code="UROBILU" displayName="UA UROBILINOGEN DIPSTICK" / > <statusCode code="completed" /> <effectiveTime value= "098452515651" /> <value unit="" xsi:type="PQ" value="NORMAL" /> <referenceRange> <observationRange> <text>NORMAL</ text> </observationRange> </referenceRange> </ observation> </component> <component> <observation moodCode= "EVN" classCode="OBS"> <templateId root="06.08.840.1.308493.102022.4.2 " /> <id nullFlavor="NA" /> <code codeSystem="local" code= "BILU" displayName="UA BILIRUBIN DIPSTICK" /> <statusCode code= "completed" /> <effectiveTime value="" /> <value unit="" xsi:type="PQ" value="NEGATIVE" /> <referenceRange> < observationRange> <text>NEGATIVE</text> </ observationRange> </referenceRange> </observation> </ component> <component> <observation moodCode="EVN" classCode="OBS"> <templateId root="216.840.1.945618.10..4.2" /> <id nullFlavor="NA" /> <code codeSystem="local" code="SPENCER" displayName="UA BLOOD DIPSTICK" /> <statusCode code="completed" /> < effectiveTime value="" /> <value unit="" xsi:type="PQ" value="NEGATIVE" /> <referenceRange> <observationRange> <text>NEGATIVE</text> </observationRange> </ referenceRange> </observation> </component> <component> <observation moodCode="EVN" classCode="OBS"> <templateId root= "216.840.1.963289...4.2" /> <id nullFlavor="NA" /> < code codeSystem="local" code="SPGRU" displayName="UA SPECIFIC GRAVITY" /> <statusCode code="completed" /> <effectiveTime value=" " /> <value unit="" xsi:type="PQ" value="1.020" /> < referenceRange> <observationRange> <text>1.015-1.025</ text> </observationRange> </referenceRange> </ observation> </component> <component> <observation moodCode= "EVN" classCode="OBS"> <templateId root="216.840.1.536939.10.22.4.2 " /> <id nullFlavor="NA" /> <code codeSystem="local" code="FEROZ " displayName="UR PH" /> <statusCode code="completed" /> < effectiveTime value="" /> <value unit="" xsi:type="PQ" value="5.0" /> <referenceRange> <observationRange> <text>5.0-7.0</text> </observationRange> </ referenceRange> </observation> </component> </organizer> </entry > <entry> <organizer moodCode="EVN" classCode="BATTERY"> <templateId root="2.16.840.1.251730.10...4.1" /> <id nullFlavor="NA" /> <code codeSystem="local" code="UAMICRO" displayName="UA MICROSCOPIC" /> < statusCode code="completed" /> <component> <observation moodCode= "EVN" classCode="OBS"> <templateId root="216.840.1.433091.10...4.2 " /> <id nullFlavor="NA" /> <code codeSystem="local" code= "BACU" displayName="UA BACTERIA" /> <statusCode code="completed" /> <effectiveTime value="" /> <value unit="" xsi:type= "PQ" value="3+" /> <referenceRange> <observationRange> <text>NEGATIVE</text> </observationRange> </ referenceRange> </observation> </component> <component> <observation moodCode="EVN" classCode="OBS"> <templateId root= "216.840.1.101504.02.09.22.4.2" /> <id nullFlavor="NA" /> < code codeSystem="local" code="EPIU" displayName="UA EPITHELIAL CELLS" /> <statusCode code="completed" /> <effectiveTime value="" /> <value unit="epi/hpf" xsi:type="PQ" value="2+" /> < referenceRange> <observationRange> <text>0 - 1+</text> </observationRange> </referenceRange> </observation> </component> <component> <observation moodCode="EVN" classCode ="OBS"> <templateId root="216.840.1.369193.10..22.4.2" /> < id nullFlavor="NA" /> <code codeSystem="local" code="MUCUSU" displayName="UA MUCUS" /> <statusCode code="completed" /> < effectiveTime value="" /> <value unit="" xsi:type="PQ" value="3+" /> <referenceRange> <observationRange> <text>NEG TO 1+</text> </observationRange> </ referenceRange> </observation> </component> <component> <observation moodCode="EVN" classCode="OBS"> <templateId root= "216.840.1.837493.10...4.2" /> <id nullFlavor="NA" /> < code codeSystem="local" code="UAVOL" displayName="UA VOLUME FOR EXAM" /> <statusCode code="completed" /> <effectiveTime value="" /> <value unit="mL" xsi:type="PQ" value="8.0" /> < referenceRange> <observationRange> <text>(12mL STD)</ text> </observationRange> </referenceRange> </ observation> </component> <component> <observation moodCode= "EVN" classCode="OBS"> <templateId root="216.840.1.372771.10..22.4.2 " /> <id nullFlavor="NA" /> <code codeSystem="local" code= "WBCU" displayName="UA WBC" /> <statusCode code="completed" /> <effectiveTime value="443956045431" /> <value unit="wbc/hpf" xsi:type ="PQ" value="2-5" /> <referenceRange> <observationRange> <text>0 - 5</text> </observationRange> </ referenceRange> </observation> </component> </organizer> </entry > <entry> <organizer moodCode="EVN" classCode="BATTERY"> <templateId root="216.840.1.367724.10..22.4.1" /> <id nullFlavor="NA" /> <code codeSystem="local" code="PREGU" displayName="UR TEST" /> < statusCode code="completed" /> <component> <observation moodCode= "EVN" classCode="OBS"> <templateId root="216.840.1.805240.10..22.4.2 " /> <id nullFlavor="NA" /> <code codeSystem="local" code= "PREGU" displayName="UR TEST" /> <statusCode code="completed " /> <effectiveTime value="546423675462" /> <value unit="" xsi :type="PQ" value="NEGATIVE" /> <referenceRange> < observationRange> <text>NEGATIVE</text> </ observationRange> </referenceRange> </observation> </ component> </organizer> </entry> <entry> <organizer moodCode="EVN" classCode="BATTERY"> <templateId root="216.840.1.925804.10..22.4.1" /> <id nullFlavor="NA" /> <code codeSystem="local" code="iCHEM8" displayName="CHEM/HEM PROFILE-BEDSIDE" /> <statusCode code="completed" /> <component> <observation moodCode="EVN" classCode="OBS"> < templateId root="216.840.1.422750.10..22.4.2" /> <id nullFlavor="NA " /> <code codeSystem="local" code="K" displayName="POTASSIUM" /> <statusCode code="completed" /> <effectiveTime value="304486722152 " /> <value unit="mmol/L" xsi:type="PQ" value="3.6" /> < referenceRange> <observationRange> <text>3.5-5.3</text> </observationRange> </referenceRange> </observation > </component> <component> <observation moodCode="EVN" classCode="OBS"> <templateId root="16.840.1.500139...4.2" /> <id nullFlavor="NA" /> <code codeSystem="local" code="CMETHOD " displayName="METHOD" /> <statusCode code="completed" /> < effectiveTime value="456415830762" /> <value unit="" xsi:type="PQ" value="Bedside" /> <referenceRange> <observationRange> <text /> </observationRange> </referenceRange> </observation> </component> <component> <observation moodCode="EVN" classCode="OBS"> <templateId root= "16.840.1.919926.10...4.2" /> <id nullFlavor="NA" /> < code codeSystem="local" code="GAP" displayName="ANION GAP" /> < statusCode code="completed" /> <effectiveTime value="547868374728" /> <value unit="mmol/L" xsi:type="PQ" value="17" /> < referenceRange> <observationRange> <text>10-20</text> </observationRange> </referenceRange> </observation> </component> <component> <observation moodCode="EVN" classCode= "OBS"> <templateId root="216.840.1.429995.02.09.22.4.2" /> < id nullFlavor="NA" /> <code codeSystem="local" code="HMETHOD" displayName="METHOD" /> <statusCode code="completed" /> < effectiveTime value="717040192618" /> <value unit="" xsi:type="PQ" value="Bedside" /> <referenceRange> <observationRange> <text /> </observationRange> </referenceRange> </observation> </component> <component> <observation moodCode="EVN" classCode="OBS"> <templateId root= "216.840.1.154850.02.09.22.4.2" /> <id nullFlavor="NA" /> < code codeSystem="local" code="GLU" displayName="GLUCOSE" /> < statusCode code="completed" /> <effectiveTime value="028355850300" /> <value unit="mg/dL" xsi:type="PQ" value="87" /> < referenceRange> <observationRange> <text>70-99</text> </observationRange> </referenceRange> </observation> </component> <component> <observation moodCode="EVN" classCode= "OBS"> <templateId root="16.840.1.231823..22.4.2" /> < id nullFlavor="NA" /> <code codeSystem="local" code="BUN" displayName= "BLOOD UREA NITROGEN" /> <statusCode code="completed" /> < effectiveTime value="281443987166" /> <value unit="mg/dL" xsi:type="PQ " value="11" /> <referenceRange> <observationRange> <text>7-20</text> </observationRange> </referenceRange > </observation> </component> <component> <observation moodCode="EVN" classCode="OBS"> <templateId root= "216.840.1.511607.10..22.4.2" /> <id nullFlavor="NA" /> < code codeSystem="local" code="CREAT" displayName="CREATININE" /> < statusCode code="completed" /> <effectiveTime value="189329191027" /> <value unit="mg/dL" xsi:type="PQ" value="0.7" /> < referenceRange> <observationRange> <text>0.6-1.0</text> </observationRange> </referenceRange> </observation > </component> <component> <observation moodCode="EVN" classCode="OBS"> <templateId root="16.840.1.674842.10...4.2" /> <id nullFlavor="NA" /> <code codeSystem="local" code="HGBT" displayName="HEMOGLOBIN" /> <statusCode code="completed" /> < effectiveTime value="915045580038" /> <value unit="gm/dL" xsi:type="PQ " value="15.6" /> <referenceRange> <observationRange> <text>12.0-16.0</text> </observationRange> </ referenceRange> </observation> </component> <component> <observation moodCode="EVN" classCode="OBS"> <templateId root= "16.840.1.487758.10...4.2" /> <id nullFlavor="NA" /> < code codeSystem="local" code="HCTT" displayName="HEMATOCRIT" /> < statusCode code="completed" /> <effectiveTime value="492494588289" /> <value unit="%" xsi:type="PQ" value="46.0" /> < referenceRange> <observationRange> <text>37.0-47.0</text > </observationRange> </referenceRange> </observation > </component> <component> <observation moodCode="EVN" classCode="OBS"> <templateId root="216.840.1.818898.10.2022.4.2" /> <id nullFlavor="NA" /> <code codeSystem="local" code="NA" displayName="SODIUM" /> <statusCode code="completed" /> < effectiveTime value="007480492242" /> <value unit="mmol/L" xsi:type="PQ " value="139" /> <referenceRange> <observationRange> <text>135-148</text> </observationRange> </ referenceRange> </observation> </component> <component> <observation moodCode="EVN" classCode="OBS"> <templateId root= "06.08.840.1.048807..22.4.2" /> <id nullFlavor="NA" /> < code codeSystem="local" code="CL" displayName="CHLORIDE" /> < statusCode code="completed" /> <effectiveTime value="506829058811" /> <value unit="mmol/L" xsi:type="PQ" value="104" /> < referenceRange> <observationRange> <text>98-110</text> </observationRange> </referenceRange> </observation> </component> <component> <observation moodCode="EVN" classCode ="OBS"> <templateId root="216.840.1.414109.10.2022.4.2" /> < id nullFlavor="NA" /> <code codeSystem="local" code="CO2" displayName= "CARBON DIOXIDE" /> <statusCode code="completed" /> < effectiveTime value="010388783192" /> <value unit="mmol/L" xsi:type="PQ " value="22" /> <referenceRange> <observationRange> <text>21-32</text> </observationRange> </ referenceRange> </observation> </component> <component> <observation moodCode="EVN" classCode="OBS"> <templateId root= "06.08.840.1.913884.02.09.22.4.2" /> <id nullFlavor="NA" /> < code codeSystem="local" code="CAION" displayName="CALCIUM IONIZED" /> < statusCode code="completed" /> <effectiveTime value="764934687196" /> <value unit="mg/dL" xsi:type="PQ" value="4.7" /> < referenceRange> <observationRange> <text>4.5-5.3</text> </observationRange> </referenceRange> </observation > </component> </organizer> </entry> <entry> <organizer moodCode= "EVN" classCode="BATTERY"> <templateId root="06.08.840.1.589627.02.09.22.4.1 " /> <id nullFlavor="NA" /> <code codeSystem="local" code="CBCWD" displayName="CBC With Platelet and Differential" /> <statusCode code= "completed" /> <component> <observation moodCode="EVN" classCode= "OBS"> <templateId root="06.08.840.1.466434.02.09.22.4.2" /> < id nullFlavor="NA" /> <code codeSystem="local" code="ABASR" displayName ="Absolute Basophils" /> <statusCode code="completed" /> < effectiveTime value="" /> <value unit="10*3/uL" xsi:type= "PQ" value="0.01" /> <referenceRange> <observationRange> <text>0.00-0.20</text> </observationRange> </ referenceRange> </observation> </component> <component> <observation moodCode="EVN" classCode="OBS"> <templateId root= "216.840.1.226931.02.09.22.4.2" /> <id nullFlavor="NA" /> < code codeSystem="local" code="AEOSR" displayName="Absolute Eosinophils" /> <statusCode code="completed" /> <effectiveTime value=" " /> <value unit="10*3/uL" xsi:type="PQ" value="0.00" /> < referenceRange> <observationRange> <text>0.00-0.50</text > </observationRange> </referenceRange> </observation > </component> <component> <observation moodCode="EVN" classCode="OBS"> <templateId root="216.840.1.117427.02.09.22.4.2" /> <id nullFlavor="NA" /> <code codeSystem="local" code="ALYMR" displayName="Absolute Lymphocytes" /> <statusCode code="completed" /> <effectiveTime value="" /> <value unit="10*3/uL" xsi:type="PQ" value="1.08" /> <referenceRange> < observationRange> <text>0.80-3.30</text> </ observationRange> </referenceRange> </observation> </ component> <component> <observation moodCode="EVN" classCode="OBS"> <templateId root="216.840.1.436832.22.4.2" /> <id nullFlavor="NA" /> <code codeSystem="local" code="AMONR" displayName= "Absolute Monocytes" /> <statusCode code="completed" /> < effectiveTime value="" /> <value unit="10*3/uL" xsi:type= "PQ" value="0.06" /> <interpretationCode codeSystem="local" code="*" / > <referenceRange> <observationRange> <text> 0.30-1.00</text> </observationRange> </referenceRange> </observation> </component> <component> <observation moodCode="EVN" classCode="OBS"> <templateId root= "216.840.1.942258.02.09.224.2" /> <id nullFlavor="NA" /> < code codeSystem="local" code="ASEGR" displayName="Absolute Neutrophils" /> <statusCode code="completed" /> <effectiveTime value=" " /> <value unit="10*3/uL" xsi:type="PQ" value="9.49" /> < interpretationCode codeSystem="local" code="*" /> <referenceRange> <observationRange> <text>1.90-7.00</text> </ observationRange> </referenceRange> </observation> </ component> <component> <observation moodCode="EVN" classCode="OBS"> <templateId root="16.840.1.688341.104.2" /> <id nullFlavor="NA" /> <code codeSystem="local" code="BASOR" displayName= "Basophils" /> <statusCode code="completed" /> <effectiveTime value="" /> <value unit="%" xsi:type="PQ" value="0" /> <referenceRange> <observationRange> <text>0-2< /text> </observationRange> </referenceRange> </ observation> </component> <component> <observation moodCode= "EVN" classCode="OBS"> <templateId root="216.840.1.931383.10.4.2 " /> <id nullFlavor="NA" /> <code codeSystem="local" code= "EOSR" displayName="Eosinophils" /> <statusCode code="completed" /> <effectiveTime value="" /> <value unit="%" xsi: type="PQ" value="0" /> <referenceRange> <observationRange> <text>0-4</text> </observationRange> </ referenceRange> </observation> </component> <component> <observation moodCode="EVN" classCode="OBS"> <templateId root= "06.08.840.1.165264.02.09.22.4.2" /> <id nullFlavor="NA" /> < code codeSystem="local" code="HCT" displayName="HCT" /> <statusCode code="completed" /> <effectiveTime value="" /> < value unit="%" xsi:type="PQ" value="43.8" /> <referenceRange> <observationRange> <text>37.0-47.0</text> </ observationRange> </referenceRange> </observation> </ component> <component> <observation moodCode="EVN" classCode="OBS"> <templateId root="06.08.840.1.662161.02.09.22.4.2" /> <id nullFlavor="NA" /> <code codeSystem="local" code="HGB" displayName="HGB " /> <statusCode code="completed" /> <effectiveTime value= "" /> <value unit="g/dL" xsi:type="PQ" value="14.8" /> <referenceRange> <observationRange> <text>12.0- 16.0</text> </observationRange> </referenceRange> </ observation> </component> <component> <observation moodCode= "EVN" classCode="OBS"> <templateId root="216.840.1.240538.10...4.2 " /> <id nullFlavor="NA" /> <code codeSystem="local" code= "IMGA" displayName="Immature Granulocytes" /> <statusCode code= "completed" /> <effectiveTime value="767130264304" /> <value unit="%" xsi:type="PQ" value="0.3" /> <referenceRange> < observationRange> <text>0.0-1.0</text> </ observationRange> </referenceRange> </observation> </ component> <component> <observation moodCode="EVN" classCode="OBS"> <templateId root="16.840.1.919956.10..4.2" /> <id nullFlavor="NA" /> <code codeSystem="local" code="LYMPR" displayName= "Lymphocytes" /> <statusCode code="completed" /> < effectiveTime value="059994817032" /> <value unit="%" xsi:type="PQ " value="10" /> <interpretationCode codeSystem="local" code="*" /> <referenceRange> <observationRange> <text>20-46</ text> </observationRange> </referenceRange> </ observation> </component> <component> <observation moodCode= "EVN" classCode="OBS"> <templateId root="16.840.1.206096.10..22.4.2 " /> <id nullFlavor="NA" /> <code codeSystem="local" code="MCH " displayName="MCH" /> <statusCode code="completed" /> < effectiveTime value="" /> <value unit="pg" xsi:type="PQ" value="33.8" /> <interpretationCode codeSystem="local" code="*" /> <referenceRange> <observationRange> <text>27.0- 32.0</text> </observationRange> </referenceRange> </ observation> </component> <component> <observation moodCode= "EVN" classCode="OBS"> <templateId root="2.16.840.1.824128.10..4.2 " /> <id nullFlavor="NA" /> <code codeSystem="local" code= "MCHC" displayName="MCHC" /> <statusCode code="completed" /> < effectiveTime value="" /> <value unit="g/dL" xsi:type="PQ" value="33.8" /> <referenceRange> <observationRange> <text>32.0-36.0</text> </observationRange> </ referenceRange> </observation> </component> <component> <observation moodCode="EVN" classCode="OBS"> <templateId root= "2.16.840.1.077016.10...4.2" /> <id nullFlavor="NA" /> < code codeSystem="local" code="MCV" displayName="MCV" /> <statusCode code="completed" /> <effectiveTime value="" /> < value unit="fL" xsi:type="PQ" value="100.0" /> <interpretationCode codeSystem="local" code="*" /> <referenceRange> < observationRange> <text>82.0-99.0</text> </ observationRange> </referenceRange> </observation> </ component> <component> <observation moodCode="EVN" classCode="OBS"> <templateId root="216.840.1.171967.10.22.4.2" /> <id nullFlavor="NA" /> <code codeSystem="local" code="MONOR" displayName= "Monocytes" /> <statusCode code="completed" /> <effectiveTime value="" /> <value unit="%" xsi:type="PQ" value="1" /> <interpretationCode codeSystem="local" code="*" /> < referenceRange> <observationRange> <text>4-11</text> </observationRange> </referenceRange> </observation> </component> <component> <observation moodCode="EVN" classCode= "OBS"> <templateId root="216.840.1.192709.02.09.224.2" /> < id nullFlavor="NA" /> <code codeSystem="local" code="MPV" displayName= "MPV" /> <statusCode code="completed" /> <effectiveTime value= "" /> <value unit="fL" xsi:type="PQ" value="9.3" /> <interpretationCode codeSystem="local" code="*" /> <referenceRange> <observationRange> <text>9.4-12.4</text> </ observationRange> </referenceRange> </observation> </ component> <component> <observation moodCode="EVN" classCode="OBS"> <templateId root="16.840.1.418160.10.4.2" /> <id nullFlavor="NA" /> <code codeSystem="local" code="SEGR" displayName= "Neutrophils" /> <statusCode code="completed" /> < effectiveTime value="" /> <value unit="%" xsi:type="PQ " value="89" /> <interpretationCode codeSystem="local" code="*" /> <referenceRange> <observationRange> <text>51-75</ text> </observationRange> </referenceRange> </ observation> </component> <component> <observation moodCode= "EVN" classCode="OBS"> <templateId root="06.08.840.1.848112.1022.4.2 " /> <id nullFlavor="NA" /> <code codeSystem="local" code= "NRBCA" displayName="Nucleated RBC Automated" /> <statusCode code= "completed" /> <effectiveTime value="" /> <value unit="/100WBC" xsi:type="PQ" value="0.0" /> <referenceRange> <observationRange> <text /> </observationRange> </referenceRange> </observation> </component> <component> <observation moodCode="EVN" classCode="OBS"> <templateId root= "840.1.854525.1022.4.2" /> <id nullFlavor="NA" /> < code codeSystem="local" code="PLT" displayName="Platelet Count" /> < statusCode code="completed" /> <effectiveTime value="" /> <value unit="K/uL" xsi:type="PQ" value="342" /> < referenceRange> <observationRange> <text>150-400</text> </observationRange> </referenceRange> </observation > </component> <component> <observation moodCode="EVN" classCode="OBS"> <templateId root="06.08.840.1.101460.1022.4.2" /> <id nullFlavor="NA" /> <code codeSystem="local" code="RBC" displayName="RBC" /> <statusCode code="completed" /> < effectiveTime value="" /> <value unit="10*6/uL" xsi:type= "PQ" value="4.38" /> <referenceRange> <observationRange> <text>4.00-5.20</text> </observationRange> </ referenceRange> </observation> </component> <component> <observation moodCode="EVN" classCode="OBS"> <templateId root= "216.840.1.921289.10.20.22.4.2" /> <id nullFlavor="NA" /> < code codeSystem="local" code="RDW" displayName="RDW" /> <statusCode code="completed" /> <effectiveTime value="" /> < value unit="%" xsi:type="PQ" value="14.1" /> <referenceRange> <observationRange> <text>11.5-14.5</text> </ observationRange> </referenceRange> </observation> </ component> <component> <observation moodCode="EVN" classCode="OBS"> <templateId root="2.16.840.1.270770.10.20.22.4.2" /> <id nullFlavor="NA" /> <code codeSystem="local" code="WBCIR" displayName= "WBC" /> <statusCode code="completed" /> <effectiveTime value= "" /> <value unit="K/uL" xsi:type="PQ" value="10.7" /> <referenceRange> <observationRange> <text>4.8-10.8 </text> </observationRange> </referenceRange> </ observation> </component> </organizer> </entry> <entry> <organizer moodCode="EVN" classCode="BATTERY"> <templateId root= "840.1.833216...4.1" /> <id nullFlavor="NA" /> <code codeSystem="local" code="CMP" displayName="Comprehensive Metabolic Panel (CMP)" /> <statusCode code="completed" /> <component> <observation moodCode="EVN" classCode="OBS"> <templateId root= "840.1.917557.02.09.22.4.2" /> <id nullFlavor="NA" /> < code codeSystem="local" code="ALB" displayName="Albumin" /> < statusCode code="completed" /> <effectiveTime value="[id number]" /> <value unit="g/dL" xsi:type="PQ" value="5.1" /> < interpretationCode codeSystem="local" code="*" /> <referenceRange> <observationRange> <text>3.5-4.8</text> </ observationRange> </referenceRange> </observation> </ component> <component> <observation moodCode="EVN" classCode="OBS"> <templateId root="840.1.530133.02.09.22.4.2" /> <id nullFlavor="NA" /> <code codeSystem="local" code="ALP" displayName= "Alkaline Phosphatase" /> <statusCode code="completed" /> < effectiveTime value="395823925821" /> <value unit="U/L" xsi:type="PQ" value="60" /> <referenceRange> <observationRange> <text>26-104</text> </observationRange> </referenceRange > </observation> </component> <component> <observation moodCode="EVN" classCode="OBS"> <templateId root= "06.08.840.1.685914.02.09.22.4.2" /> <id nullFlavor="NA" /> < code codeSystem="local" code="ALT" displayName="ALT (SGPT)" /> < statusCode code="completed" /> <effectiveTime value="" /> <value unit="U/L" xsi:type="PQ" value="25" /> <referenceRange > <observationRange> <text>14-54</text> </ observationRange> </referenceRange> </observation> </ component> <component> <observation moodCode="EVN" classCode="OBS"> <templateId root="2.16.840.1.365110.10...4.2" /> <id nullFlavor="NA" /> <code codeSystem="local" code="AGAP" displayName= "Anion Gap" /> <statusCode code="completed" /> <effectiveTime value="" /> <value unit="mEq/L" xsi:type="PQ" value="11" / > <referenceRange> <observationRange> <text>3- 20</text> </observationRange> </referenceRange> </ observation> </component> <component> <observation moodCode= "EVN" classCode="OBS"> <templateId root="2.16.840.1.071268.10..22.4.2 " /> <id nullFlavor="NA" /> <code codeSystem="local" code="AST " displayName="AST (SGOT)" /> <statusCode code="completed" /> <effectiveTime value="" /> <value unit="U/L" xsi:type="PQ" value="25" /> <referenceRange> <observationRange> <text>15-41</text> </observationRange> </referenceRange > </observation> </component> <component> <observation moodCode="EVN" classCode="OBS"> <templateId root= "16.840.1.975383.10..22.4.2" /> <id nullFlavor="NA" /> < code codeSystem="local" code="BILIT" displayName="Bilirubin Total" /> < statusCode code="completed" /> <effectiveTime value="" /> <value unit="mg/dL" xsi:type="PQ" value="0.6" /> < referenceRange> <observationRange> <text>0.2-1.2</text> </observationRange> </referenceRange> </observation > </component> <component> <observation moodCode="EVN" classCode="OBS"> <templateId root="16.840.1.748298.22.4.2" /> <id nullFlavor="NA" /> <code codeSystem="local" code="BUN" displayName="BUN" /> <statusCode code="completed" /> < effectiveTime value="" /> <value unit="mg/dL" xsi:type="PQ " value="8" /> <referenceRange> <observationRange> <text>4-20</text> </observationRange> </referenceRange > </observation> </component> <component> <observation moodCode="EVN" classCode="OBS"> <templateId root= "06.08.840.1.065741.10.2022.4.2" /> <id nullFlavor="NA" /> < code codeSystem="local" code="CA" displayName="Calcium" /> <statusCode code="completed" /> <effectiveTime value="755082955228" /> < value unit="mg/dL" xsi:type="PQ" value="9.9" /> <referenceRange> <observationRange> <text>8.6-10.0</text> </ observationRange> </referenceRange> </observation> </ component> <component> <observation moodCode="EVN" classCode="OBS"> <templateId root="216.840.1.913159.10..4.2" /> <id nullFlavor="NA" /> <code codeSystem="local" code="CL" displayName= "Chloride" /> <statusCode code="completed" /> <effectiveTime value="" /> <value unit="mEq/L" xsi:type="PQ" value="105" / > <referenceRange> <observationRange> <text>99- 109</text> </observationRange> </referenceRange> </ observation> </component> <component> <observation moodCode= "EVN" classCode="OBS"> <templateId root="216.840.1.377019.02.09.22.4.2 " /> <id nullFlavor="NA" /> <code codeSystem="local" code="CO2 " displayName="CO2" /> <statusCode code="completed" /> < effectiveTime value="" /> <value unit="mEq/L" xsi:type="PQ " value="19" /> <interpretationCode codeSystem="local" code="*" /> <referenceRange> <observationRange> <text>22-32</ text> </observationRange> </referenceRange> </ observation> </component> <component> <observation moodCode= "EVN" classCode="OBS"> <templateId root="216.840.1.905311....4.2 " /> <id nullFlavor="NA" /> <code codeSystem="local" code= "CREAT" displayName="Creatinine" /> <statusCode code="completed" /> <effectiveTime value="063109191527" /> <value unit="mg/dL" xsi: type="PQ" value="0.60" /> <referenceRange> <observationRange > <text>0.44-1.03</text> </observationRange> </ referenceRange> </observation> </component> <component> <observation moodCode="EVN" classCode="OBS"> <templateId root= "16.840.1.263287.10..22.4.2" /> <id nullFlavor="NA" /> < code codeSystem="local" code="GLOB" displayName="Globulin" /> < statusCode code="completed" /> <effectiveTime value="" /> <value unit="g/dL" xsi:type="PQ" value="3.8" /> < referenceRange> <observationRange> <text>1.9-4.3</text> </observationRange> </referenceRange> </observation > </component> <component> <observation moodCode="EVN" classCode="OBS"> <templateId root="06.08.840.1.370210.10..4.2" /> <id nullFlavor="NA" /> <code codeSystem="local" code="GLU" displayName="Glucose" /> <statusCode code="completed" /> < effectiveTime value="789324160575" /> <value unit="mg/dL" xsi:type="PQ " value="119" /> <interpretationCode codeSystem="local" code="*" /> <referenceRange> <observationRange> <text>70-100< /text> </observationRange> </referenceRange> </ observation> </component> <component> <observation moodCode= "EVN" classCode="OBS"> <templateId root="06.08.840.1.083071.10..22.4.2 " /> <id nullFlavor="NA" /> <code codeSystem="local" code="K" displayName="Potassium" /> <statusCode code="completed" /> < effectiveTime value="855676200279" /> <value unit="mEq/L" xsi:type="PQ " value="4.1" /> <referenceRange> <observationRange> <text>3.6-5.1</text> </observationRange> </ referenceRange> </observation> </component> <component> <observation moodCode="EVN" classCode="OBS"> <templateId root= "216.840.1.680406.10.20.22.4.2" /> <id nullFlavor="NA" /> < code codeSystem="local" code="TP" displayName="Protein" /> <statusCode code="completed" /> <effectiveTime value="" /> < value unit="g/dL" xsi:type="PQ" value="8.9" /> <interpretationCode codeSystem="local" code="*" /> <referenceRange> < observationRange> <text>6.1-7.9</text> </ observationRange> </referenceRange> </observation> </ component> <component> <observation moodCode="EVN" classCode="OBS"> <templateId root="16.840.1.534899.10.20.22.4.2" /> <id nullFlavor="NA" /> <code codeSystem="local" code="NA" displayName= "Sodium" /> <statusCode code="completed" /> <effectiveTime value="" /> <value unit="mEq/L" xsi:type="PQ" value="135" / > <interpretationCode codeSystem="local" code="*" /> < referenceRange> <observationRange> <text>136-144</text> </observationRange> </referenceRange> </observation > </component> </organizer> </entry> <entry> <organizer moodCode= "EVN" classCode="BATTERY"> <templateId root="16.840.1.833159.10..4.1 " /> <id nullFlavor="NA" /> <code codeSystem="local" code="ALC" displayName="Alcohol, Blood" /> <statusCode code="completed" /> < component> <observation moodCode="EVN" classCode="OBS"> < templateId root="06.08.840.1.908150.02.09.22.4.2" /> <id nullFlavor="NA " /> <code codeSystem="local" code="ALC" displayName="Alcohol, Blood" / > <statusCode code="completed" /> <effectiveTime value= "" /> <value unit="mg/dL" xsi:type="PQ" value="Not Detected " /> <referenceRange> <observationRange> <text /> </observationRange> </referenceRange> </ observation> </component> </organizer> </entry> <entry> <organizer moodCode="EVN" classCode="BATTERY"> <templateId root= "06.08.840.1.229084.02.09.22.4.1" /> <id nullFlavor="NA" /> <code codeSystem="local" code="ACETM" displayName="Acetaminophen" /> <statusCode code="completed" /> <component> <observation moodCode="EVN" classCode="OBS"> <templateId root="06.08.840.1.754868.02.09.22.4.2" /> <id nullFlavor="NA" /> <code codeSystem="local" code="ACETM" displayName="Acetaminophen" /> <statusCode code="completed" /> <effectiveTime value="983564502856" /> <value unit="mcg/mL" xsi:type= "PQ" value="<10" /> <referenceRange> <observationRange> <text>10-30</text> </observationRange> </ referenceRange> </observation> </component> </organizer> </entry > <entry> <organizer moodCode="EVN" classCode="BATTERY"> <templateId root="216.840.1.700911.10..22.4.1" /> <id nullFlavor="NA" /> <code codeSystem="local" code="SALIC" displayName="Salicylate" /> <statusCode code="completed" /> <component> <observation moodCode="EVN" classCode="OBS"> <templateId root="06.08.840.1.811895..22.4.2" /> <id nullFlavor="NA" /> <code codeSystem="local" code="SALIC" displayName="Salicylate" /> <statusCode code="completed" /> < effectiveTime value="916484667391" /> <value unit="mg/dL" xsi:type="PQ " value="<4" /> <referenceRange> <observationRange> <text>0-30</text> </observationRange> </ referenceRange> </observation> </component> </organizer> </entry > <entry> <organizer moodCode="EVN" classCode="BATTERY"> <templateId root="16.840.1.563574.10.22.4.1" /> <id nullFlavor="NA" /> <code codeSystem="local" code="GFR" displayName="eGFR" /> <statusCode code= "completed" /> <component> <observation moodCode="EVN" classCode= "OBS"> <templateId root="16.840.1.302025.02.09.22.4.2" /> < id nullFlavor="NA" /> <code codeSystem="local" code="GFR" displayName= "eGFR" /> <statusCode code="completed" /> <effectiveTime value ="492415552663" /> <value unit="mL/min" xsi:type="PQ" value=">60" / > <referenceRange> <observationRange> <text>&gt ;60</text> </observationRange> </referenceRange> </ observation> </component> </organizer> </entry> <entry> <organizer moodCode="EVN" classCode="BATTERY"> <templateId root= "216.840.1.281172.10..22.4.1" /> <id nullFlavor="NA" /> <code codeSystem="local" code="PREGN" displayName=" Screen, Urine NPT" /> <statusCode code="completed" /> <component> <observation moodCode ="EVN" classCode="OBS"> <templateId root= "16.840.1.801322.10..22.4.2" /> <id nullFlavor="NA" /> < code codeSystem="local" code="PREGN" displayName=" Screen, Urine NPT" / > <statusCode code="completed" /> <effectiveTime value= "844346956052" /> <value unit="NA" xsi:type="PQ" value="Negative" /> <referenceRange> <observationRange> <text /> </observationRange> </referenceRange> </observation> </component> </organizer> </entry> <entry> <organizer moodCode="EVN " classCode="BATTERY"> <templateId root="16.840.1.074759.10..22.4.1" / > <id nullFlavor="NA" /> <code codeSystem="local" code="UA" displayName="Urinalysis with reflex microscopic" /> <statusCode code= "completed" /> <component> <observation moodCode="EVN" classCode= "OBS"> <templateId root="16.840.1.989804.02.09.22.4.2" /> < id nullFlavor="NA" /> <code codeSystem="local" code="UAPP" displayName= "Appearance" /> <statusCode code="completed" /> < effectiveTime value="" /> <value unit="NA" xsi:type="PQ" value="Cloudy" /> <interpretationCode codeSystem="local" code="*" /> <referenceRange> <observationRange> <text /> </observationRange> </referenceRange> </observation> </component> <component> <observation moodCode="EVN" classCode= "OBS"> <templateId root="06.08.840.1.492202.02.09.224.2" /> < id nullFlavor="NA" /> <code codeSystem="local" code="UBIL" displayName= "Bilirubin" /> <statusCode code="completed" /> <effectiveTime value="" /> <value unit="NA" xsi:type="PQ" value="Negative " /> <referenceRange> <observationRange> <text> Negative</text> </observationRange> </referenceRange> </observation> </component> <component> <observation moodCode ="EVN" classCode="OBS"> <templateId root= "16.840.1.902379.02.09.22.4.2" /> <id nullFlavor="NA" /> < code codeSystem="local" code="UBLD" displayName="Blood" /> <statusCode code="completed" /> <effectiveTime value="" /> < value unit="NA" xsi:type="PQ" value="Negative" /> <referenceRange> <observationRange> <text>Negative</text> </ observationRange> </referenceRange> </observation> </ component> <component> <observation moodCode="EVN" classCode="OBS"> <templateId root="16.840.1.388314.10.22.4.2" /> <id nullFlavor="NA" /> <code codeSystem="local" code="UCOLR" displayName= "Color" /> <statusCode code="completed" /> <effectiveTime value="" /> <value unit="NA" xsi:type="PQ" value="Yellow" / > <referenceRange> <observationRange> <text /> </observationRange> </referenceRange> </observation > </component> <component> <observation moodCode="EVN" classCode="OBS"> <templateId root="840.1.265851.02.09.22.4.2" /> <id nullFlavor="NA" /> <code codeSystem="local" code="UGLU" displayName="Glucose, Urine" /> <statusCode code="completed" /> <effectiveTime value="449310609099" /> <value unit="" xsi:type="PQ" value="Negative" /> <referenceRange> <observationRange> <text>Negative</text> </observationRange> </ referenceRange> </observation> </component> <component> <observation moodCode="EVN" classCode="OBS"> <templateId root= "06.08.840.1.755502.10.4.2" /> <id nullFlavor="NA" /> < code codeSystem="local" code="UKET" displayName="Ketones" /> < statusCode code="completed" /> <effectiveTime value="" /> <value unit="" xsi:type="PQ" value="Trace" /> < interpretationCode codeSystem="local" code="*" /> <referenceRange> <observationRange> <text>Negative</text> </ observationRange> </referenceRange> </observation> </ component> <component> <observation moodCode="EVN" classCode="OBS"> <templateId root="06.08.840.1.448790.02.09.22.4.2" /> <id nullFlavor="NA" /> <code codeSystem="local" code="ULEU" displayName= "Leukocyte Esterase" /> <statusCode code="completed" /> < effectiveTime value="558284475755" /> <value unit="NA" xsi:type="PQ" value="Negative" /> <referenceRange> <observationRange> <text>Negative</text> </observationRange> </ referenceRange> </observation> </component> <component> <observation moodCode="EVN" classCode="OBS"> <templateId root= "840.1.876627.02.09.22.4.2" /> <id nullFlavor="NA" /> < code codeSystem="local" code="UNIT" displayName="Nitrites" /> < statusCode code="completed" /> <effectiveTime value="661310352155" /> <value unit="NA" xsi:type="PQ" value="Negative" /> < referenceRange> <observationRange> <text>Negative</text > </observationRange> </referenceRange> </observation > </component> <component> <observation moodCode="EVN" classCode="OBS"> <templateId root="06.08.840.1.795982.02.09.22.4.2" /> <id nullFlavor="NA" /> <code codeSystem="local" code="UPH" displayName="pH" /> <statusCode code="completed" /> < effectiveTime value="218102220443" /> <value unit="NA" xsi:type="PQ" value="5.0" /> <referenceRange> <observationRange> <text>5.0-8.0</text> </observationRange> </ referenceRange> </observation> </component> <component> <observation moodCode="EVN" classCode="OBS"> <templateId root= "216.840.1.048470.10..22.4.2" /> <id nullFlavor="NA" /> < code codeSystem="local" code="UPRO" displayName="Protein" /> < statusCode code="completed" /> <effectiveTime value="324913704357" /> <value unit="NA" xsi:type="PQ" value="Pos 1+" /> < interpretationCode codeSystem="local" code="*" /> <referenceRange> <observationRange> <text>Negative</text> </ observationRange> </referenceRange> </observation> </ component> <component> <observation moodCode="EVN" classCode="OBS"> <templateId root="16.840.1.326240.10..22.4.2" /> <id nullFlavor="NA" /> <code codeSystem="local" code="USPG" displayName= "Specific [place]" /> <statusCode code="completed" /> < effectiveTime value="626672207975" /> <value unit="NA" xsi:type="PQ" value="1.040" /> <interpretationCode codeSystem="local" code="*" /> <referenceRange> <observationRange> <text>1.003- 1.030</text> </observationRange> </referenceRange> </ observation> </component> <component> <observation moodCode= "EVN" classCode="OBS"> <templateId root="06.08.840.1.137820.1022.4.2 " /> <id nullFlavor="NA" /> <code codeSystem="local" code= "UTYP" displayName="UA Collection type" /> <statusCode code="completed " /> <effectiveTime value="788181384380" /> <value unit="NA" xsi:type="PQ" value="Not Specified" /> <referenceRange> < observationRange> <text /> </observationRange> </referenceRange> </observation> </component> <component> <observation moodCode="EVN" classCode="OBS"> <templateId root= "840.1.571190.02.09.22.4.2" /> <id nullFlavor="NA" /> < code codeSystem="local" code="UURO" displayName="Urobilinogen" /> < statusCode code="completed" /> <effectiveTime value="128692699465" /> <value unit="mg/dL" xsi:type="PQ" value="Negative" /> < referenceRange> <observationRange> <text><1.0</text> </observationRange> </referenceRange> </observation > </component> </organizer> </entry> <entry> <organizer moodCode= "EVN" classCode="BATTERY"> <templateId root="06.08.840.1.866809.02.09.22.4.1 " /> <id nullFlavor="NA" /> <code codeSystem="local" code="UDRGH" displayName="Urine Drug Screen" /> <statusCode code="completed" /> < component> <observation moodCode="EVN" classCode="OBS"> < templateId root="06.08.840.1.649814.22.4.2" /> <id nullFlavor="NA " /> <code codeSystem="local" code="UAMP1" displayName="Amph/Meth/ Ecstasy" /> <statusCode code="completed" /> <effectiveTime value="469928404202" /> <value unit="NA" xsi:type="PQ" value="Negative " /> <referenceRange> <observationRange> <text /> </observationRange> </referenceRange> </ observation> </component> <component> <observation moodCode= "EVN" classCode="OBS"> <templateId root="06.08.840.1.522372.10..4.2 " /> <id nullFlavor="NA" /> <code codeSystem="local" code= "UBAR1" displayName="Barbiturates" /> <statusCode code="completed" /> <effectiveTime value="525029825849" /> <value unit="NA" xsi: type="PQ" value="Negative" /> <referenceRange> < observationRange> <text /> </observationRange> </referenceRange> </observation> </component> <component> <observation moodCode="EVN" classCode="OBS"> <templateId root= "06.08.840.1.926359.02.09.22.4.2" /> <id nullFlavor="NA" /> < code codeSystem="local" code="UBEN1" displayName="Benzodiazepine" /> < statusCode code="completed" /> <effectiveTime value="006052079156" /> <value unit="NA" xsi:type="PQ" value="Negative" /> < referenceRange> <observationRange> <text /> < /observationRange> </referenceRange> </observation> </ component> <component> <observation moodCode="EVN" classCode="OBS"> <templateId root="06.08.840.1.576317.02.09.22.4.2" /> <id nullFlavor="NA" /> <code codeSystem="local" code="UCAN1" displayName= "Cannabinoid" /> <statusCode code="completed" /> < effectiveTime value="454156572830" /> <value unit="NA" xsi:type="PQ" value="Negative" /> <referenceRange> <observationRange> <text /> </observationRange> </referenceRange> </observation> </component> <component> <observation moodCode="EVN" classCode="OBS"> <templateId root= "216.840.1.302302.02.09.22.4.2" /> <id nullFlavor="NA" /> < code codeSystem="local" code="UCOC1" displayName="Cocaine" /> < statusCode code="completed" /> <effectiveTime value="" /> <value unit="NA" xsi:type="PQ" value="Negative" /> < referenceRange> <observationRange> <text /> < /observationRange> </referenceRange> </observation> </ component> <component> <observation moodCode="EVN" classCode="OBS"> <templateId root="216.840.1.254006.10.4.2" /> <id nullFlavor="NA" /> <code codeSystem="local" code="UMTD1" displayName= "EDDP (Methadone met.)" /> <statusCode code="completed" /> < effectiveTime value="004806802910" /> <value unit="NA" xsi:type="PQ" value="Negative" /> <referenceRange> <observationRange> <text /> </observationRange> </referenceRange> </observation> </component> <component> <observation moodCode="EVN" classCode="OBS"> <templateId root= "2840.1.249590.02.09.22.4.2" /> <id nullFlavor="NA" /> < code codeSystem="local" code="UOPI1" displayName="Opiate" /> < statusCode code="completed" /> <effectiveTime value="430540030550" /> <value unit="NA" xsi:type="PQ" value="Negative" /> < referenceRange> <observationRange> <text /> < /observationRange> </referenceRange> </observation> </ component> <component> <observation moodCode="EVN" classCode="OBS"> <templateId root="840.1.900359.02.09.22.4.2" /> <id nullFlavor="NA" /> <code codeSystem="local" code="UPCP1" displayName= "Phencyclidine (PCP)" /> <statusCode code="completed" /> < effectiveTime value="437466358574" /> <value unit="NA" xsi:type="PQ" value="Negative" /> <referenceRange> <observationRange> <text /> </observationRange> </referenceRange> </observation> </component> </organizer> </entry> <entry> < organizer moodCode="EVN" classCode="BATTERY"> <templateId root= "840.1.966853.02.09.22.4.1" /> <id nullFlavor="NA" /> <code codeSystem="local" code="UMIC" displayName="Urine Microscopic" /> < statusCode code="completed" /> <component> <observation moodCode= "EVN" classCode="OBS"> <templateId root="06.08.840.1.368516.02.09.22.4.2 " /> <id nullFlavor="NA" /> <code codeSystem="local" code= "UBAC" displayName="Bacteria" /> <statusCode code="completed" /> <effectiveTime value="138507901176" /> <value unit="NA" xsi:type= "PQ" value="Numerous" /> <interpretationCode codeSystem="local" code="* " /> <referenceRange> <observationRange> <text /> </observationRange> </referenceRange> </ observation> </component> <component> <observation moodCode= "EVN" classCode="OBS"> <templateId root="16.840.1.384813.22.4.2 " /> <id nullFlavor="NA" /> <code codeSystem="local" code= "UEPI" displayName="Epithelial Cells" /> <statusCode code="completed" / > <effectiveTime value="583325716156" /> <value unit="/HPF" xsi:type="PQ" value="10" /> <referenceRange> < observationRange> <text /> </observationRange> </referenceRange> </observation> </component> <component> <observation moodCode="EVN" classCode="OBS"> <templateId root= "06.08.840.1.410446.02.09.22.4.2" /> <id nullFlavor="NA" /> < code codeSystem="local" code="URBC" displayName="RBC, Urine" /> < statusCode code="completed" /> <effectiveTime value="240163695596" /> <value unit="/HPF" xsi:type="PQ" value="0" /> <referenceRange > <observationRange> <text>0-2</text> </ observationRange> </referenceRange> </observation> </ component> <component> <observation moodCode="EVN" classCode="OBS"> <templateId root="06.08.840.1.938814.1022.4.2" /> <id nullFlavor="NA" /> <code codeSystem="local" code="UMUC" displayName= "Urine Mucus" /> <statusCode code="completed" /> < effectiveTime value="297791532462" /> <value unit="NA" xsi:type="PQ" value="Present" /> <referenceRange> <observationRange> <text /> </observationRange> </referenceRange> </observation> </component> <component> <observation moodCode="EVN" classCode="OBS"> <templateId root= "16.840.1.650380.10.4.2" /> <id nullFlavor="NA" /> < code codeSystem="local" code="UWBC" displayName="WBC, Urine" /> < statusCode code="completed" /> <effectiveTime value="" /> <value unit="/HPF" xsi:type="PQ" value="0" /> <referenceRange > <observationRange> <text>0-4</text> </ observationRange> </referenceRange> </observation> </ component> </organizer> </entry> <entry> <organizer moodCode="EVN" classCode="BATTERY"> <templateId root="16.840.1.415223.02.09.22.4.1" /> <id nullFlavor="NA" /> <code codeSystem="local" code="PREGU" displayName="UR TEST" /> <statusCode code="completed" /> < component> <observation moodCode="EVN" classCode="OBS"> < templateId root="16.840.1.927724.02.09.22.4.2" /> <id nullFlavor="NA " /> <code codeSystem="local" code="PREGU" displayName="UR TEST" /> <statusCode code="completed" /> <effectiveTime value= "012201638290" /> <value unit="" xsi:type="PQ" value="NEGATIVE" /> <referenceRange> <observationRange> <text>NEGATIVE </text> </observationRange> </referenceRange> </ observation> </component> </organizer> </entry> <entry> <organizer moodCode="EVN" classCode="BATTERY"> <templateId root= "216.840.1.920820.10..22.4.1" /> <id nullFlavor="NA" /> <code codeSystem="local" code="UA" displayName="URINALYSIS, ROUTINE" /> < statusCode code="completed" /> <component> <observation moodCode= "EVN" classCode="OBS"> <templateId root="216.840.1.016277.10...4.2 " /> <id nullFlavor="NA" /> <code codeSystem="local" code= "LEUESU" displayName="UA LEUKOCYTE ESTERASE DIPSTICK" /> <statusCode code="completed" /> <effectiveTime value="730213378133" /> < value unit="" xsi:type="PQ" value="TRACE" /> <referenceRange> <observationRange> <text>NEGATIVE</text> </ observationRange> </referenceRange> </observation> </ component> <component> <observation moodCode="EVN" classCode="OBS"> <templateId root="16.840.1.281331.10..22.4.2" /> <id nullFlavor="NA" /> <code codeSystem="local" code="NITRIU" displayName= "UA NITRITE DIPSTICK" /> <statusCode code="completed" /> < effectiveTime value="932155777970" /> <value unit="" xsi:type="PQ" value="NEGATIVE" /> <referenceRange> <observationRange> <text>NEGATIVE</text> </observationRange> </ referenceRange> </observation> </component> <component> <observation moodCode="EVN" classCode="OBS"> <templateId root= "216.840.1.015558.1022.4.2" /> <id nullFlavor="NA" /> < code codeSystem="local" code="PROTEIU" displayName="UA PROTEIN DIPSTICK" /> <statusCode code="completed" /> <effectiveTime value= "" /> <value unit="" xsi:type="PQ" value="1+" /> < interpretationCode codeSystem="local" code="*" /> <referenceRange> <observationRange> <text>NEGATIVE</text> </ observationRange> </referenceRange> </observation> </ component> <component> <observation moodCode="EVN" classCode="OBS"> <templateId root="06.08.840.1.735294.02.09.22.4.2" /> <id nullFlavor="NA" /> <code codeSystem="local" code="DGLUU" displayName= "UA GLUCOSE DIPSTICK" /> <statusCode code="completed" /> < effectiveTime value="" /> <value unit="" xsi:type="PQ" value="NEGATIVE" /> <referenceRange> <observationRange> <text>NEGATIVE</text> </observationRange> </ referenceRange> </observation> </component> <component> <observation moodCode="EVN" classCode="OBS"> <templateId root= "06.08.840.1.296026.10.4.2" /> <id nullFlavor="NA" /> < code codeSystem="local" code="KETONU" displayName="UA KETONE DIPSTICK" /> <statusCode code="completed" /> <effectiveTime value=" " /> <value unit="" xsi:type="PQ" value="NEGATIVE" /> < referenceRange> <observationRange> <text>NEGATIVE</text > </observationRange> </referenceRange> </observation > </component> <component> <observation moodCode="EVN" classCode="OBS"> <templateId root="216.840.1.815770.10...4.2" /> <id nullFlavor="NA" /> <code codeSystem="local" code="UROBILU " displayName="UA UROBILINOGEN DIPSTICK" /> <statusCode code="completed " /> <effectiveTime value="" /> <value unit="" xsi :type="PQ" value="NORMAL" /> <referenceRange> < observationRange> <text>NORMAL</text> </observationRange > </referenceRange> </observation> </component> < component> <observation moodCode="EVN" classCode="OBS"> < templateId root="06.08.840.1.228782.10..4.2" /> <id nullFlavor="NA " /> <code codeSystem="local" code="BILU" displayName="UA BILIRUBIN DIPSTICK" /> <statusCode code="completed" /> <effectiveTime value="" /> <value unit="" xsi:type="PQ" value="3+" /> <interpretationCode codeSystem="local" code="*" /> < referenceRange> <observationRange> <text>NEGATIVE</text > </observationRange> </referenceRange> </observation > </component> <component> <observation moodCode="EVN" classCode="OBS"> <templateId root="16.840.1.958587.10..22.4.2" /> <id nullFlavor="NA" /> <code codeSystem="local" code="SPENCER" displayName="UA BLOOD DIPSTICK" /> <statusCode code="completed" /> <effectiveTime value="" /> <value unit="" xsi:type= "PQ" value="4+" /> <interpretationCode codeSystem="local" code="*" /> <referenceRange> <observationRange> <text> NEGATIVE</text> </observationRange> </referenceRange> </observation> </component> <component> <observation moodCode ="EVN" classCode="OBS"> <templateId root= "2.16.840.1.847206.10...4.2" /> <id nullFlavor="NA" /> < code codeSystem="local" code="SPGRU" displayName="UA SPECIFIC GRAVITY" /> <statusCode code="completed" /> <effectiveTime value=" " /> <value unit="" xsi:type="PQ" value="1.020" /> < referenceRange> <observationRange> <text>1.015-1.025</ text> </observationRange> </referenceRange> </ observation> </component> <component> <observation moodCode= "EVN" classCode="OBS"> <templateId root="2.16.840.1.687998.10...4.2 " /> <id nullFlavor="NA" /> <code codeSystem="local" code="FEROZ " displayName="UR PH" /> <statusCode code="completed" /> < effectiveTime value="" /> <value unit="" xsi:type="PQ" value="5.0" /> <referenceRange> <observationRange> <text>5.0-7.0</text> </observationRange> </ referenceRange> </observation> </component> </organizer> </entry > <entry> <organizer moodCode="EVN" classCode="BATTERY"> <templateId root="16.840.1.716787.10..22.4.1" /> <id nullFlavor="NA" /> <code codeSystem="local" code="UAMICRO" displayName="UA MICROSCOPIC" /> < statusCode code="completed" /> <component> <observation moodCode= "EVN" classCode="OBS"> <templateId root="16.840.1.971976.10..22.4.2 " /> <id nullFlavor="NA" /> <code codeSystem="local" code= "BACU" displayName="UA BACTERIA" /> <statusCode code="completed" /> <effectiveTime value="195119509066" /> <value unit="" xsi:type= "PQ" value="3+" /> <interpretationCode codeSystem="local" code="*" /> <referenceRange> <observationRange> <text> NEGATIVE</text> </observationRange> </referenceRange> </observation> </component> <component> <observation moodCode ="EVN" classCode="OBS"> <templateId root= "16.840.1.998969.10...4.2" /> <id nullFlavor="NA" /> < code codeSystem="local" code="EPIU" displayName="UA EPITHELIAL CELLS" /> <statusCode code="completed" /> <effectiveTime value="828866131665" /> <value unit="epi/hpf" xsi:type="PQ" value="2+" /> < interpretationCode codeSystem="local" code="*" /> <referenceRange> <observationRange> <text>0 - 1+</text> </ observationRange> </referenceRange> </observation> </ component> <component> <observation moodCode="EVN" classCode="OBS"> <templateId root="16.840.1.538430.10..22.4.2" /> <id nullFlavor="NA" /> <code codeSystem="local" code="MUCUSU" displayName= "UA MUCUS" /> <statusCode code="completed" /> <effectiveTime value="" /> <value unit="" xsi:type="PQ" value="3+" /> <interpretationCode codeSystem="local" code="*" /> < referenceRange> <observationRange> <text>NEG TO 1+</text > </observationRange> </referenceRange> </observation > </component> <component> <observation moodCode="EVN" classCode="OBS"> <templateId root="06.08.840.1.421687.10..4.2" /> <id nullFlavor="NA" /> <code codeSystem="local" code="RBCU" displayName="UA RBC" /> <statusCode code="completed" /> < effectiveTime value="" /> <value unit="rbc/hpf" xsi:type= "PQ" value="0-3" /> <referenceRange> <observationRange> <text>0 - 3</text> </observationRange> </ referenceRange> </observation> </component> <component> <observation moodCode="EVN" classCode="OBS"> <templateId root= "06.08.840.1.576282.10..22.4.2" /> <id nullFlavor="NA" /> < code codeSystem="local" code="UAVOL" displayName="UA VOLUME FOR EXAM" /> <statusCode code="completed" /> <effectiveTime value="" /> <value unit="mL" xsi:type="PQ" value="12.0" /> < referenceRange> <observationRange> <text>(12mL STD)</ text> </observationRange> </referenceRange> </ observation> </component> <component> <observation moodCode= "EVN" classCode="OBS"> <templateId root="16.840.1.536692.10..4.2 " /> <id nullFlavor="NA" /> <code codeSystem="local" code= "WBCU" displayName="UA WBC" /> <statusCode code="completed" /> <effectiveTime value="960791486582" /> <value unit="wbc/hpf" xsi:type ="PQ" value="2-5" /> <referenceRange> <observationRange> <text>0 - 5</text> </observationRange> </ referenceRange> </observation> </component> </organizer> </entry > <entry> <organizer moodCode="EVN" classCode="BATTERY"> <templateId root="16.840.1.982511.10...4.1" /> <id nullFlavor="NA" /> <code codeSystem="local" code="CBCD" displayName="CBC W/DIFF" /> <statusCode code ="completed" /> <component> <observation moodCode="EVN" classCode= "OBS"> <templateId root="216.840.1.887476.10..22.4.2" /> < id nullFlavor="NA" /> <code codeSystem="local" code="GR#" displayName= "GRANULOCYTE #" /> <statusCode code="completed" /> < effectiveTime value="836757700729" /> <value unit="k/cumm" xsi:type="PQ " value="4.1" /> <referenceRange> <observationRange> <text>2.0-9.0</text> </observationRange> </ referenceRange> </observation> </component> <component> <observation moodCode="EVN" classCode="OBS"> <templateId root= "216.840.1.397361.10.20.22.4.2" /> <id nullFlavor="NA" /> < code codeSystem="local" code="GR%" displayName="GRANULOCYTE %" /> <statusCode code="completed" /> <effectiveTime value="320106088301 " /> <value unit="%" xsi:type="PQ" value="59" /> < referenceRange> <observationRange> <text>50-75</text> </observationRange> </referenceRange> </observation> </component> <component> <observation moodCode="EVN" classCode= "OBS"> <templateId root="16.840.1.074829...4.2" /> < id nullFlavor="NA" /> <code codeSystem="local" code="LY#" displayName= "LYMPHOCYTE #" /> <statusCode code="completed" /> < effectiveTime value="587398319058" /> <value unit="k/cumm" xsi:type="PQ " value="2.4" /> <referenceRange> <observationRange> <text>1.0-4.0</text> </observationRange> </ referenceRange> </observation> </component> <component> <observation moodCode="EVN" classCode="OBS"> <templateId root= "16.840.1.679479.10.2022.4.2" /> <id nullFlavor="NA" /> < code codeSystem="local" code="LY%" displayName="LYMPHOCYTE %" /> <statusCode code="completed" /> <effectiveTime value="421063294883" /> <value unit="%" xsi:type="PQ" value="34" /> < interpretationCode codeSystem="local" code="*" /> <referenceRange> <observationRange> <text>20-30</text> </ observationRange> </referenceRange> </observation> </ component> <component> <observation moodCode="EVN" classCode="OBS"> <templateId root="216.840.1.006425.10.2022.4.2" /> <id nullFlavor="NA" /> <code codeSystem="local" code="MCH" displayName= "MEAN CELL HGB" /> <statusCode code="completed" /> < effectiveTime value="920819738271" /> <value unit="pg" xsi:type="PQ" value="33.9" /> <interpretationCode codeSystem="local" code="*" /> <referenceRange> <observationRange> <text>27.0- 33.0</text> </observationRange> </referenceRange> </ observation> </component> <component> <observation moodCode= "EVN" classCode="OBS"> <templateId root="06.08.840.1.287308.02.09.22.4.2 " /> <id nullFlavor="NA" /> <code codeSystem="local" code= "MCHC" displayName="MEAN CELL HGB CONCENTRATION" /> <statusCode code= "completed" /> <effectiveTime value="493717694502" /> <value unit="g/dL" xsi:type="PQ" value="33.0" /> <referenceRange> < observationRange> <text>32.0-37.0</text> </ observationRange> </referenceRange> </observation> </ component> <component> <observation moodCode="EVN" classCode="OBS"> <templateId root="216.840.1.261974.10.2022.4.2" /> <id nullFlavor="NA" /> <code codeSystem="local" code="MCV" displayName= "MEAN CELL VOLUME" /> <statusCode code="completed" /> < effectiveTime value="306689361356" /> <value unit="fl" xsi:type="PQ" value="102.9" /> <interpretationCode codeSystem="local" code="*" /> <referenceRange> <observationRange> <text>80.0- 100.0</text> </observationRange> </referenceRange> </ observation> </component> <component> <observation moodCode= "EVN" classCode="OBS"> <templateId root="2.16.840.1.712790...4.2 " /> <id nullFlavor="NA" /> <code codeSystem="local" code="MO# " displayName="MONOCYTE #" /> <statusCode code="completed" /> <effectiveTime value="422937208084" /> <value unit="k/cumm" xsi:type= "PQ" value="0.4" /> <referenceRange> <observationRange> <text>0.1-1.0</text> </observationRange> </ referenceRange> </observation> </component> <component> <observation moodCode="EVN" classCode="OBS"> <templateId root= "2.16.840.1.913381.10.22.4.2" /> <id nullFlavor="NA" /> < code codeSystem="local" code="MO%" displayName="MONOCYTE %" /> <statusCode code="completed" /> <effectiveTime value="005484167150" /> <value unit="%" xsi:type="PQ" value="6" /> < referenceRange> <observationRange> <text>4-6</text> </observationRange> </referenceRange> </observation> </component> <component> <observation moodCode="EVN" classCode= "OBS"> <templateId root="216.840.1.454359.10..4.2" /> < id nullFlavor="NA" /> <code codeSystem="local" code="RBC" displayName= "RED BLOOD CELL" /> <statusCode code="completed" /> < effectiveTime value="419459058688" /> <value unit="m/cumm" xsi:type="PQ " value="3.45" /> <interpretationCode codeSystem="local" code="*" /> <referenceRange> <observationRange> <text>4.00- 6.00</text> </observationRange> </referenceRange> </ observation> </component> <component> <observation moodCode= "EVN" classCode="OBS"> <templateId root="216.840.1.547745.02.09.224.2 " /> <id nullFlavor="NA" /> <code codeSystem="local" code="RDW " displayName="RED CELL DISTRIBUTION WIDTH" /> <statusCode code= "completed" /> <effectiveTime value="132933662778" /> <value unit="%" xsi:type="PQ" value="13.7" /> <referenceRange> <observationRange> <text>11.0-15.6</text> </ observationRange> </referenceRange> </observation> </ component> <component> <observation moodCode="EVN" classCode="OBS"> <templateId root="216.840.1.699729.10..4.2" /> <id nullFlavor="NA" /> <code codeSystem="local" code="WBC" displayName= "WHITE BLOOD CELL" /> <statusCode code="completed" /> < effectiveTime value="915472107792" /> <value unit="k/cumm" xsi:type="PQ " value="6.9" /> <referenceRange> <observationRange> <text>5.0-10.0</text> </observationRange> </ referenceRange> </observation> </component> <component> <observation moodCode="EVN" classCode="OBS"> <templateId root= "06.08.840.1.757435.02.09.22.4.2" /> <id nullFlavor="NA" /> < code codeSystem="local" code="HGBT" displayName="HEMOGLOBIN" /> < statusCode code="completed" /> <effectiveTime value="756468956166" /> <value unit="gm/dL" xsi:type="PQ" value="11.7" /> < interpretationCode codeSystem="local" code="*" /> <referenceRange> <observationRange> <text>12.0-16.0</text> </ observationRange> </referenceRange> </observation> </ component> <component> <observation moodCode="EVN" classCode="OBS"> <templateId root="06.08.840.1.064720...4.2" /> <id nullFlavor="NA" /> <code codeSystem="local" code="HCTT" displayName= "HEMATOCRIT" /> <statusCode code="completed" /> < effectiveTime value="634681529192" /> <value unit="%" xsi:type="PQ " value="35.5" /> <interpretationCode codeSystem="local" code="*" /> <referenceRange> <observationRange> <text>37.0- 47.0</text> </observationRange> </referenceRange> </ observation> </component> <component> <observation moodCode= "EVN" classCode="OBS"> <templateId root=".1.661276.10..22.4.2 " /> <id nullFlavor="NA" /> <code codeSystem="local" code= "PLTT" displayName="PLATELET COUNT" /> <statusCode code="completed" /> <effectiveTime value="686912560033" /> <value unit="k/cumm" xsi:type="PQ" value="321" /> <referenceRange> < observationRange> <text>150-450</text> </ observationRange> </referenceRange> </observation> </ component> </organizer> </entry> <entry> <organizer moodCode="EVN" classCode="BATTERY"> <templateId root="06.08.840.1.993995.10..22.4.1" /> <id nullFlavor="NA" /> <code codeSystem="local" code="METAB" displayName="METABOLIC PANEL, BASIC" /> <statusCode code="completed" /> <component> <observation moodCode="EVN" classCode="OBS"> < templateId root="06.08.840.1.648091.10..22.4.2" /> <id nullFlavor="NA " /> <code codeSystem="local" code="K" displayName="POTASSIUM" /> <statusCode code="completed" /> <effectiveTime value="361577264540 " /> <value unit="mmol/L" xsi:type="PQ" value="3.7" /> < referenceRange> <observationRange> <text>3.5-5.3</text> </observationRange> </referenceRange> </observation > </component> <component> <observation moodCode="EVN" classCode="OBS"> <templateId root="06.08.840.1.227818.10..22.4.2" /> <id nullFlavor="NA" /> <code codeSystem="local" code="eGFR" displayName="EST GFR (MDRD)" /> <statusCode code="completed" /> <effectiveTime value="" /> <value unit="mL/min" xsi:type ="PQ" value="> 60" /> <referenceRange> <observationRange > <text>> 59</text> </observationRange> </ referenceRange> </observation> </component> <component> <observation moodCode="EVN" classCode="OBS"> <templateId root= "216.840.1.160445.10.20.22.4.2" /> <id nullFlavor="NA" /> < code codeSystem="local" code="GAP" displayName="ANION GAP" /> < statusCode code="completed" /> <effectiveTime value="" /> <value unit="mmol/L" xsi:type="PQ" value="11" /> < referenceRange> <observationRange> <text>5-15</text> </observationRange> </referenceRange> </observation> </component> <component> <observation moodCode="EVN" classCode= "OBS"> <templateId root="16.840.1.288254.10..22.4.2" /> < id nullFlavor="NA" /> <code codeSystem="local" code="eCrCl" displayName ="EST CrCl (CG)" /> <statusCode code="completed" /> < effectiveTime value="" /> <value unit="mL/min" xsi:type="PQ " value="> 60" /> <referenceRange> <observationRange> <text>> 59</text> </observationRange> </ referenceRange> </observation> </component> <component> <observation moodCode="EVN" classCode="OBS"> <templateId root= "2.16.840.1.808058.10.22.4.2" /> <id nullFlavor="NA" /> < code codeSystem="local" code="GLU" displayName="GLUCOSE" /> < statusCode code="completed" /> <effectiveTime value="" /> <value unit="mg/dL" xsi:type="PQ" value="80" /> < referenceRange> <observationRange> <text>70-99</text> </observationRange> </referenceRange> </observation> </component> <component> <observation moodCode="EVN" classCode= "OBS"> <templateId root="216.840.1.524346.02.09.22.4.2" /> < id nullFlavor="NA" /> <code codeSystem="local" code="CA" displayName= "CALCIUM" /> <statusCode code="completed" /> <effectiveTime value="" /> <value unit="mg/dL" xsi:type="PQ" value="9.1" / > <referenceRange> <observationRange> <text>8.5 -10.1</text> </observationRange> </referenceRange> </ observation> </component> <component> <observation moodCode= "EVN" classCode="OBS"> <templateId root="16.840.1.600937.22.4.2 " /> <id nullFlavor="NA" /> <code codeSystem="local" code="BUN " displayName="BLOOD UREA NITROGEN" /> <statusCode code="completed" /> <effectiveTime value="302339755634" /> <value unit="mg/dL" xsi:type="PQ" value="19" /> <referenceRange> < observationRange> <text>7-20</text> </observationRange> </referenceRange> </observation> </component> < component> <observation moodCode="EVN" classCode="OBS"> < templateId root="16.840.1.267036.10.22.4.2" /> <id nullFlavor="NA " /> <code codeSystem="local" code="CREAT" displayName="CREATININE" /> <statusCode code="completed" /> <effectiveTime value= "" /> <value unit="mg/dL" xsi:type="PQ" value="0.9" /> <referenceRange> <observationRange> <text>0.6-1.0< /text> </observationRange> </referenceRange> </ observation> </component> <component> <observation moodCode= "EVN" classCode="OBS"> <templateId root="16.840.1.447128...4.2 " /> <id nullFlavor="NA" /> <code codeSystem="local" code="NA " displayName="SODIUM" /> <statusCode code="completed" /> < effectiveTime value="" /> <value unit="mmol/L" xsi:type="PQ " value="134" /> <interpretationCode codeSystem="local" code="*" /> <referenceRange> <observationRange> <text>135-148 </text> </observationRange> </referenceRange> </ observation> </component> <component> <observation moodCode= "EVN" classCode="OBS"> <templateId root="16.840.1.037856.10..22.4.2 " /> <id nullFlavor="NA" /> <code codeSystem="local" code="CL " displayName="CHLORIDE" /> <statusCode code="completed" /> < effectiveTime value="" /> <value unit="mmol/L" xsi:type="PQ " value="100" /> <referenceRange> <observationRange> <text>98-110</text> </observationRange> </ referenceRange> </observation> </component> <component> <observation moodCode="EVN" classCode="OBS"> <templateId root= "16.840.1.366954.10.20.22.4.2" /> <id nullFlavor="NA" /> < code codeSystem="local" code="CO2" displayName="CARBON DIOXIDE" /> < statusCode code="completed" /> <effectiveTime value="990518218565" /> <value unit="mmol/L" xsi:type="PQ" value="23" /> < referenceRange> <observationRange> <text>21-32</text> </observationRange> </referenceRange> </observation> </component> </organizer> </entry> <entry> <organizer moodCode="EVN " classCode="BATTERY"> <templateId root="06.08.840.1.127057.10..22.4.1" / > <id nullFlavor="NA" /> <code codeSystem="local" code="UA" displayName="URINALYSIS, ROUTINE" /> <statusCode code="completed" /> < component> <observation moodCode="EVN" classCode="OBS"> < templateId root="16.840.1.770414.10.20.22.4.2" /> <id nullFlavor="NA " /> <code codeSystem="local" code="LEUESU" displayName="UA LEUKOCYTE ESTERASE DIPSTICK" /> <statusCode code="completed" /> < effectiveTime value="135788606598" /> <value unit="" xsi:type="PQ" value="TRACE" /> <referenceRange> <observationRange> <text>NEGATIVE</text> </observationRange> </ referenceRange> </observation> </component> <component> <observation moodCode="EVN" classCode="OBS"> <templateId root= "16.840.1.182594.10...4.2" /> <id nullFlavor="NA" /> < code codeSystem="local" code="NITRIU" displayName="UA NITRITE DIPSTICK" /> <statusCode code="completed" /> <effectiveTime value="351825423657 " /> <value unit="" xsi:type="PQ" value="NEGATIVE" /> < referenceRange> <observationRange> <text>NEGATIVE</text > </observationRange> </referenceRange> </observation > </component> <component> <observation moodCode="EVN" classCode="OBS"> <templateId root="216.840.1.615467.10..4.2" /> <id nullFlavor="NA" /> <code codeSystem="local" code="PROTEIU " displayName="UA PROTEIN DIPSTICK" /> <statusCode code="completed" /> <effectiveTime value="964789857349" /> <value unit="" xsi: type="PQ" value="1+" /> <interpretationCode codeSystem="local" code="* " /> <referenceRange> <observationRange> <text> NEGATIVE</text> </observationRange> </referenceRange> </observation> </component> <component> <observation moodCode ="EVN" classCode="OBS"> <templateId root= "16.840.1.894793.10...4.2" /> <id nullFlavor="NA" /> < code codeSystem="local" code="DGLUU" displayName="UA GLUCOSE DIPSTICK" /> <statusCode code="completed" /> <effectiveTime value="853233182521 " /> <value unit="" xsi:type="PQ" value="NEGATIVE" /> < referenceRange> <observationRange> <text>NEGATIVE</text > </observationRange> </referenceRange> </observation > </component> <component> <observation moodCode="EVN" classCode="OBS"> <templateId root="06.08.840.1.693640.10..4.2" /> <id nullFlavor="NA" /> <code codeSystem="local" code="KETONU" displayName="UA KETONE DIPSTICK" /> <statusCode code="completed" /> <effectiveTime value="481004449854" /> <value unit="" xsi:type= "PQ" value="NEGATIVE" /> <referenceRange> <observationRange > <text>NEGATIVE</text> </observationRange> </ referenceRange> </observation> </component> <component> <observation moodCode="EVN" classCode="OBS"> <templateId root= "06.08.840.1.634230.10.4.2" /> <id nullFlavor="NA" /> < code codeSystem="local" code="UROBILU" displayName="UA UROBILINOGEN DIPSTICK" / > <statusCode code="completed" /> <effectiveTime value= "074461787212" /> <value unit="" xsi:type="PQ" value="NORMAL" /> <referenceRange> <observationRange> <text>NORMAL</ text> </observationRange> </referenceRange> </ observation> </component> <component> <observation moodCode= "EVN" classCode="OBS"> <templateId root="06.08.840.1.385306.10.4.2 " /> <id nullFlavor="NA" /> <code codeSystem="local" code= "BILU" displayName="UA BILIRUBIN DIPSTICK" /> <statusCode code= "completed" /> <effectiveTime value="355642697842" /> <value unit="" xsi:type="PQ" value="1+" /> <interpretationCode codeSystem= "local" code="*" /> <referenceRange> <observationRange> <text>NEGATIVE</text> </observationRange> </ referenceRange> </observation> </component> <component> <observation moodCode="EVN" classCode="OBS"> <templateId root= "216.840.1.845912.10..22.4.2" /> <id nullFlavor="NA" /> < code codeSystem="local" code="SPENCER" displayName="UA BLOOD DIPSTICK" /> < statusCode code="completed" /> <effectiveTime value="446432266032" /> <value unit="" xsi:type="PQ" value="1+" /> < interpretationCode codeSystem="local" code="*" /> <referenceRange> <observationRange> <text>NEGATIVE</text> </ observationRange> </referenceRange> </observation> </ component> <component> <observation moodCode="EVN" classCode="OBS"> <templateId root="216.840.1.782070.10.20.22.4.2" /> <id nullFlavor="NA" /> <code codeSystem="local" code="SPGRU" displayName= "UA SPECIFIC GRAVITY" /> <statusCode code="completed" /> < effectiveTime value="677279593725" /> <value unit="" xsi:type="PQ" value="1.020" /> <referenceRange> <observationRange> <text>1.015-1.025</text> </observationRange> </ referenceRange> </observation> </component> <component> <observation moodCode="EVN" classCode="OBS"> <templateId root= "216.840.1.730334.22.4.2" /> <id nullFlavor="NA" /> < code codeSystem="local" code="FEROZ" displayName="UR PH" /> <statusCode code="completed" /> <effectiveTime value="579608176841" /> < value unit="" xsi:type="PQ" value="5.0" /> <referenceRange> <observationRange> <text>5.0-7.0</text> </ observationRange> </referenceRange> </observation> </ component> </organizer> </entry> <entry> <organizer moodCode="EVN" classCode="BATTERY"> <templateId root="16.840.1.302886.02.09.22.4.1" /> <id nullFlavor="NA" /> <code codeSystem="local" code="UAMICRO" displayName="UA MICROSCOPIC" /> <statusCode code="completed" /> < component> <observation moodCode="EVN" classCode="OBS"> < templateId root="06.08.840.1.361321.02.09.22.4.2" /> <id nullFlavor="NA " /> <code codeSystem="local" code="BACU" displayName="UA BACTERIA" /> <statusCode code="completed" /> <effectiveTime value= "173615086001" /> <value unit="" xsi:type="PQ" value="2+" /> < interpretationCode codeSystem="local" code="*" /> <referenceRange> <observationRange> <text>NEGATIVE</text> </ observationRange> </referenceRange> </observation> </ component> <component> <observation moodCode="EVN" classCode="OBS"> <templateId root="06.08.840.1.427074.22.4.2" /> <id nullFlavor="NA" /> <code codeSystem="local" code="EPIU" displayName=" UA EPITHELIAL CELLS" /> <statusCode code="completed" /> < effectiveTime value="375707974623" /> <value unit="epi/hpf" xsi:type= "PQ" value="3+" /> <interpretationCode codeSystem="local" code="*" /> <referenceRange> <observationRange> <text>0 - 1 +</text> </observationRange> </referenceRange> </ observation> </component> <component> <observation moodCode= "EVN" classCode="OBS"> <templateId root="2.16.840.1.922983.10..4.2 " /> <id nullFlavor="NA" /> <code codeSystem="local" code= "MUCUSU" displayName="UA MUCUS" /> <statusCode code="completed" /> <effectiveTime value="943863953434" /> <value unit="" xsi:type= "PQ" value="4+" /> <interpretationCode codeSystem="local" code="*" /> <referenceRange> <observationRange> <text>NEG TO 1+</text> </observationRange> </referenceRange> </ observation> </component> <component> <observation moodCode= "EVN" classCode="OBS"> <templateId root="2.16.840.1.386357.10.22.4.2 " /> <id nullFlavor="NA" /> <code codeSystem="local" code= "RBCU" displayName="UA RBC" /> <statusCode code="completed" /> <effectiveTime value="526465939256" /> <value unit="rbc/hpf" xsi:type ="PQ" value="0-3" /> <referenceRange> <observationRange> <text>0 - 3</text> </observationRange> </ referenceRange> </observation> </component> <component> <observation moodCode="EVN" classCode="OBS"> <templateId root= "216.840.1.023632.10..22.4.2" /> <id nullFlavor="NA" /> < code codeSystem="local" code="UAVOL" displayName="UA VOLUME FOR EXAM" /> <statusCode code="completed" /> <effectiveTime value="551606730521" /> <value unit="mL" xsi:type="PQ" value="12.0" /> < referenceRange> <observationRange> <text>(12mL STD)</ text> </observationRange> </referenceRange> </ observation> </component> <component> <observation moodCode= "EVN" classCode="OBS"> <templateId root="216.840.1.392801.02.09.22.4.2 " /> <id nullFlavor="NA" /> <code codeSystem="local" code= "WBCU" displayName="UA WBC" /> <statusCode code="completed" /> <effectiveTime value="165920594178" /> <value unit="wbc/hpf" xsi:type ="PQ" value="2-5" /> <referenceRange> <observationRange> <text>0 - 5</text> </observationRange> </ referenceRange> </observation> </component> </organizer> </entry > <entry> <organizer moodCode="EVN" classCode="BATTERY"> <templateId root="216.840.1.840638.10..22.4.1" /> <id nullFlavor="NA" /> <code codeSystem="local" code="PREGU" displayName="UR TEST" /> < statusCode code="completed" /> <component> <observation moodCode= "EVN" classCode="OBS"> <templateId root="2.16.840.1.087022.10..4.2 " /> <id nullFlavor="NA" /> <code codeSystem="local" code= "PREGU" displayName="UR TEST" /> <statusCode code="completed " /> <effectiveTime value="008817277266" /> <value unit="" xsi :type="PQ" value="NEGATIVE" /> <referenceRange> < observationRange> <text>NEGATIVE</text> </ observationRange> </referenceRange> </observation> </ component> </organizer> </entry> <entry> <organizer moodCode="EVN" classCode="BATTERY"> <templateId root="06.08.840.1.161723.02.09.22.4.1" /> <id nullFlavor="NA" /> <code codeSystem="local" code="CBCD" displayName="CBC W/DIFF" /> <statusCode code="completed" /> <component > <observation moodCode="EVN" classCode="OBS"> <templateId root= "06.08.840.1.953060.02.09.22.4.2" /> <id nullFlavor="NA" /> < code codeSystem="local" code="GR#" displayName="GRANULOCYTE #" /> < statusCode code="completed" /> <effectiveTime value="749588312598" /> <value unit="k/cumm" xsi:type="PQ" value="2.9" /> < referenceRange> <observationRange> <text>2.0-9.0</text> </observationRange> </referenceRange> </observation > </component> <component> <observation moodCode="EVN" classCode="OBS"> <templateId root="16.840.1.702287.10.22.4.2" /> <id nullFlavor="NA" /> <code codeSystem="local" code="GR% " displayName="GRANULOCYTE %" /> <statusCode code="completed" /> <effectiveTime value="287176095391" /> <value unit="%" xsi: type="PQ" value="63" /> <referenceRange> <observationRange> <text>50-75</text> </observationRange> </ referenceRange> </observation> </component> <component> <observation moodCode="EVN" classCode="OBS"> <templateId root= "2.16.840.1.410703.10..4.2" /> <id nullFlavor="NA" /> < code codeSystem="local" code="LY#" displayName="LYMPHOCYTE #" /> < statusCode code="completed" /> <effectiveTime value="015342803707" /> <value unit="k/cumm" xsi:type="PQ" value="1.4" /> < referenceRange> <observationRange> <text>1.0-4.0</text> </observationRange> </referenceRange> </observation > </component> <component> <observation moodCode="EVN" classCode="OBS"> <templateId root="2.16.840.1.649410.10..4.2" /> <id nullFlavor="NA" /> <code codeSystem="local" code="LY% " displayName="LYMPHOCYTE %" /> <statusCode code="completed" /> <effectiveTime value="679729724323" /> <value unit="%" xsi: type="PQ" value="30" /> <referenceRange> <observationRange> <text>20-30</text> </observationRange> </ referenceRange> </observation> </component> <component> <observation moodCode="EVN" classCode="OBS"> <templateId root= "16.840.1.639841.10.20.22.4.2" /> <id nullFlavor="NA" /> < code codeSystem="local" code="MCH" displayName="MEAN CELL HGB" /> < statusCode code="completed" /> <effectiveTime value="254765101147" /> <value unit="pg" xsi:type="PQ" value="34.1" /> < interpretationCode codeSystem="local" code="*" /> <referenceRange> <observationRange> <text>27.0-33.0</text> </ observationRange> </referenceRange> </observation> </ component> <component> <observation moodCode="EVN" classCode="OBS"> <templateId root="06.08.840.1.586228.02.09.22.4.2" /> <id nullFlavor="NA" /> <code codeSystem="local" code="MCHC" displayName= "MEAN CELL HGB CONCENTRATION" /> <statusCode code="completed" /> <effectiveTime value="063543186601" /> <value unit="g/dL" xsi:type= "PQ" value="33.0" /> <referenceRange> <observationRange> <text>32.0-37.0</text> </observationRange> </ referenceRange> </observation> </component> <component> <observation moodCode="EVN" classCode="OBS"> <templateId root= "06.08.840.1.848724.10.20.22.4.2" /> <id nullFlavor="NA" /> < code codeSystem="local" code="MCV" displayName="MEAN CELL VOLUME" /> < statusCode code="completed" /> <effectiveTime value="932490541010" /> <value unit="fl" xsi:type="PQ" value="103.4" /> < interpretationCode codeSystem="local" code="*" /> <referenceRange> <observationRange> <text>80.0-100.0</text> </ observationRange> </referenceRange> </observation> </ component> <component> <observation moodCode="EVN" classCode="OBS"> <templateId root="216.840.1.178588.10...4.2" /> <id nullFlavor="NA" /> <code codeSystem="local" code="MO#" displayName= "MONOCYTE #" /> <statusCode code="completed" /> < effectiveTime value="074899716203" /> <value unit="k/cumm" xsi:type="PQ " value="0.3" /> <referenceRange> <observationRange> <text>0.1-1.0</text> </observationRange> </ referenceRange> </observation> </component> <component> <observation moodCode="EVN" classCode="OBS"> <templateId root= "16.840.1.488121.10..4.2" /> <id nullFlavor="NA" /> < code codeSystem="local" code="MO%" displayName="MONOCYTE %" /> <statusCode code="completed" /> <effectiveTime value="744727450082" /> <value unit="%" xsi:type="PQ" value="6" /> < referenceRange> <observationRange> <text>4-6</text> </observationRange> </referenceRange> </observation> </component> <component> <observation moodCode="EVN" classCode= "OBS"> <templateId root="16.840.1.449456.10..22.4.2" /> < id nullFlavor="NA" /> <code codeSystem="local" code="RBC" displayName= "RED BLOOD CELL" /> <statusCode code="completed" /> < effectiveTime value="725077891928" /> <value unit="m/cumm" xsi:type="PQ " value="3.52" /> <interpretationCode codeSystem="local" code="*" /> <referenceRange> <observationRange> <text>4.00- 6.00</text> </observationRange> </referenceRange> </ observation> </component> <component> <observation moodCode= "EVN" classCode="OBS"> <templateId root="2.16.840.1.260809.10..22.4.2 " /> <id nullFlavor="NA" /> <code codeSystem="local" code="RDW " displayName="RED CELL DISTRIBUTION WIDTH" /> <statusCode code= "completed" /> <effectiveTime value="789736398216" /> <value unit="%" xsi:type="PQ" value="14.2" /> <referenceRange> <observationRange> <text>11.0-15.6</text> </ observationRange> </referenceRange> </observation> </ component> <component> <observation moodCode="EVN" classCode="OBS"> <templateId root="2.16.840.1.797929.10..22.4.2" /> <id nullFlavor="NA" /> <code codeSystem="local" code="WBC" displayName= "WHITE BLOOD CELL" /> <statusCode code="completed" /> < effectiveTime value="484653618471" /> <value unit="k/cumm" xsi:type="PQ " value="4.6" /> <interpretationCode codeSystem="local" code="*" /> <referenceRange> <observationRange> <text>5.0- 10.0</text> </observationRange> </referenceRange> </ observation> </component> <component> <observation moodCode= "EVN" classCode="OBS"> <templateId root="2.16.840.1.291447.10.22.4.2 " /> <id nullFlavor="NA" /> <code codeSystem="local" code= "HGBT" displayName="HEMOGLOBIN" /> <statusCode code="completed" /> <effectiveTime value="842792661190" /> <value unit="gm/dL" xsi: type="PQ" value="12.0" /> <referenceRange> <observationRange > <text>12.0-16.0</text> </observationRange> </ referenceRange> </observation> </component> <component> <observation moodCode="EVN" classCode="OBS"> <templateId root= "216.840.1.312289.104.2" /> <id nullFlavor="NA" /> < code codeSystem="local" code="HCTT" displayName="HEMATOCRIT" /> < statusCode code="completed" /> <effectiveTime value="155730166041" /> <value unit="%" xsi:type="PQ" value="36.4" /> < interpretationCode codeSystem="local" code="*" /> <referenceRange> <observationRange> <text>37.0-47.0</text> </ observationRange> </referenceRange> </observation> </ component> <component> <observation moodCode="EVN" classCode="OBS"> <templateId root="2.16.840.1.623916.10..4.2" /> <id nullFlavor="NA" /> <code codeSystem="local" code="PLTT" displayName= "PLATELET COUNT" /> <statusCode code="completed" /> < effectiveTime value="097716489758" /> <value unit="k/cumm" xsi:type="PQ " value="338" /> <referenceRange> <observationRange> <text>150-450</text> </observationRange> </ referenceRange> </observation> </component> </organizer> </entry > <entry> <organizer moodCode="EVN" classCode="BATTERY"> <templateId root="06.08.840.1.769094.02.09.22.4.1" /> <id nullFlavor="NA" /> <code codeSystem="local" code="METABC" displayName="METABOLIC PANEL, COMPREHN" /> <statusCode code="completed" /> <component> <observation moodCode= "EVN" classCode="OBS"> <templateId root="06.08.840.1.263372.02.09.22.4.2 " /> <id nullFlavor="NA" /> <code codeSystem="local" code="K" displayName="POTASSIUM" /> <statusCode code="completed" /> < effectiveTime value="607755945491" /> <value unit="mmol/L" xsi:type="PQ " value="3.9" /> <referenceRange> <observationRange> <text>3.5-5.3</text> </observationRange> </ referenceRange> </observation> </component> <component> <observation moodCode="EVN" classCode="OBS"> <templateId root= "06.08.840.1.571812.02.09.22.4.2" /> <id nullFlavor="NA" /> < code codeSystem="local" code="eGFR" displayName="EST GFR (MDRD)" /> < statusCode code="completed" /> <effectiveTime value="146209662368" /> <value unit="mL/min" xsi:type="PQ" value="> 60" /> < referenceRange> <observationRange> <text>> 59</text> </observationRange> </referenceRange> </observation > </component> <component> <observation moodCode="EVN" classCode="OBS"> <templateId root="216.840.1.563532.10.20.22.4.2" /> <id nullFlavor="NA" /> <code codeSystem="local" code="GAP" displayName="ANION GAP" /> <statusCode code="completed" /> < effectiveTime value="270249770979" /> <value unit="mmol/L" xsi:type="PQ " value="13" /> <referenceRange> <observationRange> <text>5-15</text> </observationRange> </referenceRange > </observation> </component> <component> <observation moodCode="EVN" classCode="OBS"> <templateId root= "06.08.840.1.865836.10...4.2" /> <id nullFlavor="NA" /> < code codeSystem="local" code="eCrCl" displayName="EST CrCl (CG)" /> < statusCode code="completed" /> <effectiveTime value="015131676140" /> <value unit="mL/min" xsi:type="PQ" value="> 60" /> < referenceRange> <observationRange> <text>> 59</text> </observationRange> </referenceRange> </observation > </component> <component> <observation moodCode="EVN" classCode="OBS"> <templateId root="06.08.840.1.400905.10.20.22.4.2" /> <id nullFlavor="NA" /> <code codeSystem="local" code="GLU" displayName="GLUCOSE" /> <statusCode code="completed" /> < effectiveTime value="015701541970" /> <value unit="mg/dL" xsi:type="PQ " value="99" /> <referenceRange> <observationRange> <text>70-99</text> </observationRange> </ referenceRange> </observation> </component> <component> <observation moodCode="EVN" classCode="OBS"> <templateId root= "216.840.1.888261.02.09.22.4.2" /> <id nullFlavor="NA" /> < code codeSystem="local" code="CA" displayName="CALCIUM" /> <statusCode code="completed" /> <effectiveTime value="772503044018" /> < value unit="mg/dL" xsi:type="PQ" value="9.1" /> <referenceRange> <observationRange> <text>8.5-10.1</text> </ observationRange> </referenceRange> </observation> </ component> <component> <observation moodCode="EVN" classCode="OBS"> <templateId root="06.08.840.1.730871.02.09.22.4.2" /> <id nullFlavor="NA" /> <code codeSystem="local" code="BUN" displayName= "BLOOD UREA NITROGEN" /> <statusCode code="completed" /> < effectiveTime value="571819282458" /> <value unit="mg/dL" xsi:type="PQ " value="15" /> <referenceRange> <observationRange> <text>7-20</text> </observationRange> </referenceRange > </observation> </component> <component> <observation moodCode="EVN" classCode="OBS"> <templateId root= "216.840.1.091166..22.4.2" /> <id nullFlavor="NA" /> < code codeSystem="local" code="CREAT" displayName="CREATININE" /> < statusCode code="completed" /> <effectiveTime value="670494901576" /> <value unit="mg/dL" xsi:type="PQ" value="0.7" /> < referenceRange> <observationRange> <text>0.6-1.0</text> </observationRange> </referenceRange> </observation > </component> <component> <observation moodCode="EVN" classCode="OBS"> <templateId root="216.840.1.829069.10..22.4.2" /> <id nullFlavor="NA" /> <code codeSystem="local" code="NA" displayName="SODIUM" /> <statusCode code="completed" /> < effectiveTime value="578271354818" /> <value unit="mmol/L" xsi:type="PQ " value="142" /> <referenceRange> <observationRange> <text>135-148</text> </observationRange> </ referenceRange> </observation> </component> <component> <observation moodCode="EVN" classCode="OBS"> <templateId root= "16.840.1.999514.10.20.22.4.2" /> <id nullFlavor="NA" /> < code codeSystem="local" code="CL" displayName="CHLORIDE" /> < statusCode code="completed" /> <effectiveTime value="139413624026" /> <value unit="mmol/L" xsi:type="PQ" value="104" /> < referenceRange> <observationRange> <text>98-110</text> </observationRange> </referenceRange> </observation> </component> <component> <observation moodCode="EVN" classCode ="OBS"> <templateId root="840.1.467258.10..22.4.2" /> < id nullFlavor="NA" /> <code codeSystem="local" code="AST" displayName= "AST/SGOT" /> <statusCode code="completed" /> <effectiveTime value="598963597483" /> <value unit="Units/L" xsi:type="PQ" value="19" /> <referenceRange> <observationRange> <text>10 -37</text> </observationRange> </referenceRange> </ observation> </component> <component> <observation moodCode= "EVN" classCode="OBS"> <templateId root="2.16.840.1.048177...4.2 " /> <id nullFlavor="NA" /> <code codeSystem="local" code="ALT " displayName="ALT/SGPT" /> <statusCode code="completed" /> < effectiveTime value="976655141647" /> <value unit="Units/L" xsi:type= "PQ" value="50" /> <referenceRange> <observationRange> <text>< 66</text> </observationRange> </ referenceRange> </observation> </component> <component> <observation moodCode="EVN" classCode="OBS"> <templateId root= "2.16.840.1.546614...4.2" /> <id nullFlavor="NA" /> < code codeSystem="local" code="CO2" displayName="CARBON DIOXIDE" /> < statusCode code="completed" /> <effectiveTime value="614116228132" /> <value unit="mmol/L" xsi:type="PQ" value="25" /> < referenceRange> <observationRange> <text>21-32</text> </observationRange> </referenceRange> </observation> </component> <component> <observation moodCode="EVN" classCode= "OBS"> <templateId root="16.840.1.737395.10.22.4.2" /> < id nullFlavor="NA" /> <code codeSystem="local" code="TP" displayName= "TOTAL PROTEIN" /> <statusCode code="completed" /> < effectiveTime value="225704693037" /> <value unit="gm/dL" xsi:type="PQ " value="7.9" /> <referenceRange> <observationRange> <text>6.4-8.2</text> </observationRange> </ referenceRange> </observation> </component> <component> <observation moodCode="EVN" classCode="OBS"> <templateId root= "06.08.840.1.485144.02.09.22.4.2" /> <id nullFlavor="NA" /> < code codeSystem="local" code="ALB" displayName="ALBUMIN" /> < statusCode code="completed" /> <effectiveTime value="654091139195" /> <value unit="gm/dL" xsi:type="PQ" value="4.4" /> < referenceRange> <observationRange> <text>3.4-5.0</text> </observationRange> </referenceRange> </observation > </component> <component> <observation moodCode="EVN" classCode="OBS"> <templateId root="06.08.840.1.690642.10..22.4.2" /> <id nullFlavor="NA" /> <code codeSystem="local" code="BILTOT" displayName="BILI TOTAL" /> <statusCode code="completed" /> < effectiveTime value="171258016962" /> <value unit="mg/dL" xsi:type="PQ " value="0.3" /> <referenceRange> <observationRange> <text>0.0-1.0</text> </observationRange> </ referenceRange> </observation> </component> <component> <observation moodCode="EVN" classCode="OBS"> <templateId root= "216.840.1.528897.10.20.22.4.2" /> <id nullFlavor="NA" /> < code codeSystem="local" code="ALKP" displayName="ALKALINE PHOSPHATASE TOTAL" /> <statusCode code="completed" /> <effectiveTime value= "902954115250" /> <value unit="IU/L" xsi:type="PQ" value="67" /> <referenceRange> <observationRange> <text>45-117</ text> </observationRange> </referenceRange> </ observation> </component> </organizer> </entry> <entry> <organizer moodCode="EVN" classCode="BATTERY"> <templateId root= "216.840.1.849392.10..22.4.1" /> <id nullFlavor="NA" /> <code codeSystem="local" code="LIP" displayName="LIPASE" /> <statusCode code= "completed" /> <component> <observation moodCode="EVN" classCode= "OBS"> <templateId root="216.840.1.563702.10.20.22.4.2" /> < id nullFlavor="NA" /> <code codeSystem="local" code="LIP" displayName= "LIPASE" /> <statusCode code="completed" /> <effectiveTime value="495487027912" /> <value unit="Units/L" xsi:type="PQ" value="103 " /> <referenceRange> <observationRange> <text> 73-393</text> </observationRange> </referenceRange> < /observation> </component> </organizer> </entry> <entry> < organizer moodCode="EVN" classCode="BATTERY"> <templateId root= "216.840.1.213120.10..22.4.1" /> <id nullFlavor="NA" /> <code codeSystem="local" code="CBCD" displayName="CBC W/DIFF" /> <statusCode code ="completed" /> <component> <observation moodCode="EVN" classCode= "OBS"> <templateId root="2.16.840.1.731152.10...4.2" /> < id nullFlavor="NA" /> <code codeSystem="local" code="EO#" displayName= "EOSINOPHIL #" /> <statusCode code="completed" /> < effectiveTime value="496956665390" /> <value unit="k/cumm" xsi:type="PQ " value="0.1" /> <referenceRange> <observationRange> <text>0.1-0.5</text> </observationRange> </ referenceRange> </observation> </component> <component> <observation moodCode="EVN" classCode="OBS"> <templateId root= "2.16.840.1.959278.10..22.4.2" /> <id nullFlavor="NA" /> < code codeSystem="local" code="EO%" displayName="EOSINOPHIL %" /> <statusCode code="completed" /> <effectiveTime value="109277575207" /> <value unit="%" xsi:type="PQ" value="1" /> < interpretationCode codeSystem="local" code="*" /> <referenceRange> <observationRange> <text>2-4</text> </ observationRange> </referenceRange> </observation> </ component> <component> <observation moodCode="EVN" classCode="OBS"> <templateId root="06.08.840.1.388154.10.20.22.4.2" /> <id nullFlavor="NA" /> <code codeSystem="local" code="GR#" displayName= "GRANULOCYTE #" /> <statusCode code="completed" /> < effectiveTime value="" /> <value unit="k/cumm" xsi:type="PQ " value="4.7" /> <referenceRange> <observationRange> <text>2.0-9.0</text> </observationRange> </ referenceRange> </observation> </component> <component> <observation moodCode="EVN" classCode="OBS"> <templateId root= "06.08.840.1.934298.02.09.22.4.2" /> <id nullFlavor="NA" /> < code codeSystem="local" code="GR%" displayName="GRANULOCYTE %" /> <statusCode code="completed" /> <effectiveTime value=" " /> <value unit="%" xsi:type="PQ" value="64" /> < referenceRange> <observationRange> <text>50-75</text> </observationRange> </referenceRange> </observation> </component> <component> <observation moodCode="EVN" classCode= "OBS"> <templateId root="06.08.840.1.888665.10.2022.4.2" /> < id nullFlavor="NA" /> <code codeSystem="local" code="LY#" displayName= "LYMPHOCYTE #" /> <statusCode code="completed" /> < effectiveTime value="608211761153" /> <value unit="k/cumm" xsi:type="PQ " value="2.0" /> <referenceRange> <observationRange> <text>1.0-4.0</text> </observationRange> </ referenceRange> </observation> </component> <component> <observation moodCode="EVN" classCode="OBS"> <templateId root= "216.840.1.082877.10.20.22.4.2" /> <id nullFlavor="NA" /> < code codeSystem="local" code="LY%" displayName="LYMPHOCYTE %" /> <statusCode code="completed" /> <effectiveTime value="777259881494" /> <value unit="%" xsi:type="PQ" value="27" /> < referenceRange> <observationRange> <text>20-30</text> </observationRange> </referenceRange> </observation> </component> <component> <observation moodCode="EVN" classCode= "OBS"> <templateId root="06.08.840.1.495242.10.20.22.4.2" /> < id nullFlavor="NA" /> <code codeSystem="local" code="MCH" displayName= "MEAN CELL HGB" /> <statusCode code="completed" /> < effectiveTime value="770296294793" /> <value unit="pg" xsi:type="PQ" value="35.5" /> <interpretationCode codeSystem="local" code="*" /> <referenceRange> <observationRange> <text>27.0- 33.0</text> </observationRange> </referenceRange> </ observation> </component> <component> <observation moodCode= "EVN" classCode="OBS"> <templateId root="06.08.840.1.757268.10.20.22.4.2 " /> <id nullFlavor="NA" /> <code codeSystem="local" code= "MCHC" displayName="MEAN CELL HGB CONCENTRATION" /> <statusCode code= "completed" /> <effectiveTime value="300642083755" /> <value unit="g/dL" xsi:type="PQ" value="34.3" /> <referenceRange> < observationRange> <text>32.0-37.0</text> </ observationRange> </referenceRange> </observation> </ component> <component> <observation moodCode="EVN" classCode="OBS"> <templateId root="216.840.1.322256.10.20.22.4.2" /> <id nullFlavor="NA" /> <code codeSystem="local" code="MCV" displayName= "MEAN CELL VOLUME" /> <statusCode code="completed" /> < effectiveTime value="449748800168" /> <value unit="fl" xsi:type="PQ" value="103.4" /> <interpretationCode codeSystem="local" code="*" /> <referenceRange> <observationRange> <text>80.0- 100.0</text> </observationRange> </referenceRange> </ observation> </component> <component> <observation moodCode= "EVN" classCode="OBS"> <templateId root="216.840.1.597976.10.20.22.4.2 " /> <id nullFlavor="NA" /> <code codeSystem="local" code="MO# " displayName="MONOCYTE #" /> <statusCode code="completed" /> <effectiveTime value="394757998934" /> <value unit="k/cumm" xsi:type= "PQ" value="0.6" /> <referenceRange> <observationRange> <text>0.1-1.0</text> </observationRange> </ referenceRange> </observation> </component> <component> <observation moodCode="EVN" classCode="OBS"> <templateId root= "16.840.1.471264.10.20.22.4.2" /> <id nullFlavor="NA" /> < code codeSystem="local" code="MO%" displayName="MONOCYTE %" /> <statusCode code="completed" /> <effectiveTime value="297898141241" /> <value unit="%" xsi:type="PQ" value="8" /> < interpretationCode codeSystem="local" code="*" /> <referenceRange> <observationRange> <text>4-6</text> </ observationRange> </referenceRange> </observation> </ component> <component> <observation moodCode="EVN" classCode="OBS"> <templateId root="06.08.840.1.815855.10..4.2" /> <id nullFlavor="NA" /> <code codeSystem="local" code="RBC" displayName=" RED BLOOD CELL" /> <statusCode code="completed" /> < effectiveTime value="413014806313" /> <value unit="m/cumm" xsi:type="PQ " value="3.52" /> <interpretationCode codeSystem="local" code="*" /> <referenceRange> <observationRange> <text>4.00- 6.00</text> </observationRange> </referenceRange> </ observation> </component> <component> <observation moodCode= "EVN" classCode="OBS"> <templateId root="06.08.840.1.612353.10.2022.4.2 " /> <id nullFlavor="NA" /> <code codeSystem="local" code="RDW " displayName="RED CELL DISTRIBUTION WIDTH" /> <statusCode code= "completed" /> <effectiveTime value="579914389117" /> <value unit="%" xsi:type="PQ" value="13.4" /> <referenceRange> <observationRange> <text>11.0-15.6</text> </ observationRange> </referenceRange> </observation> </ component> <component> <observation moodCode="EVN" classCode="OBS"> <templateId root="216.840.1.368649.10.20.22.4.2" /> <id nullFlavor="NA" /> <code codeSystem="local" code="WBC" displayName= "WHITE BLOOD CELL" /> <statusCode code="completed" /> < effectiveTime value="540347599910" /> <value unit="k/cumm" xsi:type="PQ " value="7.3" /> <referenceRange> <observationRange> <text>5.0-10.0</text> </observationRange> </ referenceRange> </observation> </component> <component> <observation moodCode="EVN" classCode="OBS"> <templateId root= "06.08.840.1.660591..22.4.2" /> <id nullFlavor="NA" /> < code codeSystem="local" code="HGBT" displayName="HEMOGLOBIN" /> < statusCode code="completed" /> <effectiveTime value="744739188436" /> <value unit="gm/dL" xsi:type="PQ" value="12.5" /> < referenceRange> <observationRange> <text>12.0-16.0</text > </observationRange> </referenceRange> </observation > </component> <component> <observation moodCode="EVN" classCode="OBS"> <templateId root="16.840.1.488484.10.20.22.4.2" /> <id nullFlavor="NA" /> <code codeSystem="local" code="HCTT" displayName="HEMATOCRIT" /> <statusCode code="completed" /> < effectiveTime value="266362816019" /> <value unit="%" xsi:type="PQ " value="36.4" /> <interpretationCode codeSystem="local" code="*" /> <referenceRange> <observationRange> <text>37.0- 47.0</text> </observationRange> </referenceRange> </ observation> </component> <component> <observation moodCode= "EVN" classCode="OBS"> <templateId root="06.08.840.1.245647.02.09.224.2 " /> <id nullFlavor="NA" /> <code codeSystem="local" code= "PLTT" displayName="PLATELET COUNT" /> <statusCode code="completed" /> <effectiveTime value="" /> <value unit="k/cumm" xsi:type="PQ" value="264" /> <referenceRange> < observationRange> <text>150-450</text> </ observationRange> </referenceRange> </observation> </ component> </organizer> </entry> <entry> <organizer moodCode="EVN" classCode="BATTERY"> <templateId root="06.08.840.1.676842.02.09.22.4.1" /> <id nullFlavor="NA" /> <code codeSystem="local" code="METABC" displayName="METABOLIC PANEL, COMPREHN" /> <statusCode code="completed" /> <component> <observation moodCode="EVN" classCode="OBS"> < templateId root="06.08.840.1.544436.02.09.22.4.2" /> <id nullFlavor="NA " /> <code codeSystem="local" code="K" displayName="POTASSIUM" /> <statusCode code="completed" /> <effectiveTime value="489841364253 " /> <value unit="mmol/L" xsi:type="PQ" value="3.8" /> < referenceRange> <observationRange> <text>3.5-5.3</text> </observationRange> </referenceRange> </observation > </component> <component> <observation moodCode="EVN" classCode="OBS"> <templateId root="06.08.840.1.459230.10..4.2" /> <id nullFlavor="NA" /> <code codeSystem="local" code="eGFR" displayName="EST GFR (MDRD)" /> <statusCode code="completed" /> <effectiveTime value="162750697026" /> <value unit="mL/min" xsi:type ="PQ" value="> 60" /> <referenceRange> <observationRange > <text>> 59</text> </observationRange> </ referenceRange> </observation> </component> <component> <observation moodCode="EVN" classCode="OBS"> <templateId root= "06.08.840.1.547891.02.09.22.4.2" /> <id nullFlavor="NA" /> < code codeSystem="local" code="GAP" displayName="ANION GAP" /> < statusCode code="completed" /> <effectiveTime value="089360034281" /> <value unit="mmol/L" xsi:type="PQ" value="12" /> < referenceRange> <observationRange> <text>5-15</text> </observationRange> </referenceRange> </observation> </component> <component> <observation moodCode="EVN" classCode= "OBS"> <templateId root="06.08.840.1.853752...22.4.2" /> < id nullFlavor="NA" /> <code codeSystem="local" code="eCrCl" displayName ="EST CrCl (CG)" /> <statusCode code="completed" /> < effectiveTime value="" /> <value unit="mL/min" xsi:type="PQ " value="> 60" /> <referenceRange> <observationRange> <text>> 59</text> </observationRange> </ referenceRange> </observation> </component> <component> <observation moodCode="EVN" classCode="OBS"> <templateId root= "2.16.840.1.786102.10..22.4.2" /> <id nullFlavor="NA" /> < code codeSystem="local" code="GLU" displayName="GLUCOSE" /> < statusCode code="completed" /> <effectiveTime value="" /> <value unit="mg/dL" xsi:type="PQ" value="97" /> < referenceRange> <observationRange> <text>70-99</text> </observationRange> </referenceRange> </observation> </component> <component> <observation moodCode="EVN" classCode= "OBS"> <templateId root="2.16.840.1.290790.10..22.4.2" /> < id nullFlavor="NA" /> <code codeSystem="local" code="CA" displayName= "CALCIUM" /> <statusCode code="completed" /> <effectiveTime value="" /> <value unit="mg/dL" xsi:type="PQ" value="9.6" / > <referenceRange> <observationRange> <text>8.5 -10.1</text> </observationRange> </referenceRange> </ observation> </component> <component> <observation moodCode= "EVN" classCode="OBS"> <templateId root="2.16.840.1.720588.10..22.4.2 " /> <id nullFlavor="NA" /> <code codeSystem="local" code="BUN " displayName="BLOOD UREA NITROGEN" /> <statusCode code="completed" /> <effectiveTime value="824183785716" /> <value unit="mg/dL" xsi:type="PQ" value="13" /> <referenceRange> < observationRange> <text>7-20</text> </observationRange> </referenceRange> </observation> </component> < component> <observation moodCode="EVN" classCode="OBS"> < templateId root="216.840.1.204464.10...4.2" /> <id nullFlavor="NA " /> <code codeSystem="local" code="CREAT" displayName="CREATININE" /> <statusCode code="completed" /> <effectiveTime value= "737032553958" /> <value unit="mg/dL" xsi:type="PQ" value="0.8" /> <referenceRange> <observationRange> <text>0.6-1.0< /text> </observationRange> </referenceRange> </ observation> </component> <component> <observation moodCode= "EVN" classCode="OBS"> <templateId root="216.840.1.210455.22.4.2 " /> <id nullFlavor="NA" /> <code codeSystem="local" code="NA " displayName="SODIUM" /> <statusCode code="completed" /> < effectiveTime value="915255603113" /> <value unit="mmol/L" xsi:type="PQ " value="141" /> <referenceRange> <observationRange> <text>135-148</text> </observationRange> </ referenceRange> </observation> </component> <component> <observation moodCode="EVN" classCode="OBS"> <templateId root= "216.840.1.355120.10...4.2" /> <id nullFlavor="NA" /> < code codeSystem="local" code="CL" displayName="CHLORIDE" /> < statusCode code="completed" /> <effectiveTime value="" /> <value unit="mmol/L" xsi:type="PQ" value="104" /> < referenceRange> <observationRange> <text>98-110</text> </observationRange> </referenceRange> </observation> </component> <component> <observation moodCode="EVN" classCode ="OBS"> <templateId root="216.840.1.902787...4.2" /> < id nullFlavor="NA" /> <code codeSystem="local" code="AST" displayName= "AST/SGOT" /> <statusCode code="completed" /> <effectiveTime value="" /> <value unit="Units/L" xsi:type="PQ" value="17" /> <referenceRange> <observationRange> <text>10 -37</text> </observationRange> </referenceRange> </ observation> </component> <component> <observation moodCode= "EVN" classCode="OBS"> <templateId root="16.840.1.095510.10..22.4.2 " /> <id nullFlavor="NA" /> <code codeSystem="local" code="ALT " displayName="ALT/SGPT" /> <statusCode code="completed" /> < effectiveTime value="585287416037" /> <value unit="Units/L" xsi:type= "PQ" value="21" /> <referenceRange> <observationRange> <text>< 66</text> </observationRange> </ referenceRange> </observation> </component> <component> <observation moodCode="EVN" classCode="OBS"> <templateId root= "16.840.1.915905.10..4.2" /> <id nullFlavor="NA" /> < code codeSystem="local" code="CO2" displayName="CARBON DIOXIDE" /> < statusCode code="completed" /> <effectiveTime value="" /> <value unit="mmol/L" xsi:type="PQ" value="25" /> < referenceRange> <observationRange> <text>21-32</text> </observationRange> </referenceRange> </observation> </component> <component> <observation moodCode="EVN" classCode= "OBS"> <templateId root="06.08.840.1.566319.02.09.22.4.2" /> < id nullFlavor="NA" /> <code codeSystem="local" code="TP" displayName= "TOTAL PROTEIN" /> <statusCode code="completed" /> < effectiveTime value="" /> <value unit="gm/dL" xsi:type="PQ " value="8.0" /> <referenceRange> <observationRange> <text>6.4-8.2</text> </observationRange> </ referenceRange> </observation> </component> <component> <observation moodCode="EVN" classCode="OBS"> <templateId root= "06.08.840.1.729686.02.09.22.4.2" /> <id nullFlavor="NA" /> < code codeSystem="local" code="ALB" displayName="ALBUMIN" /> < statusCode code="completed" /> <effectiveTime value="" /> <value unit="gm/dL" xsi:type="PQ" value="4.2" /> < referenceRange> <observationRange> <text>3.4-5.0</text> </observationRange> </referenceRange> </observation > </component> <component> <observation moodCode="EVN" classCode="OBS"> <templateId root="216.840.1.750591.10..22.4.2" /> <id nullFlavor="NA" /> <code codeSystem="local" code="BILTOT" displayName="BILI TOTAL" /> <statusCode code="completed" /> < effectiveTime value="028372264474" /> <value unit="mg/dL" xsi:type="PQ " value="0.2" /> <referenceRange> <observationRange> <text>0.0-1.0</text> </observationRange> </ referenceRange> </observation> </component> <component> <observation moodCode="EVN" classCode="OBS"> <templateId root= "216.840.1.508860.10...4.2" /> <id nullFlavor="NA" /> < code codeSystem="local" code="ALKP" displayName="ALKALINE PHOSPHATASE TOTAL" /> <statusCode code="completed" /> <effectiveTime value= "890924303616" /> <value unit="IU/L" xsi:type="PQ" value="64" /> <referenceRange> <observationRange> <text>45-117</ text> </observationRange> </referenceRange> </ observation> </component> </organizer> </entry> <entry> <organizer moodCode="EVN" classCode="BATTERY"> <templateId root= "216.840.1.170138.10..22.4.1" /> <id nullFlavor="NA" /> <code codeSystem="local" code="LIP" displayName="LIPASE" /> <statusCode code= "completed" /> <component> <observation moodCode="EVN" classCode= "OBS"> <templateId root="216.840.1.769642.10..22.4.2" /> < id nullFlavor="NA" /> <code codeSystem="local" code="LIP" displayName= "LIPASE" /> <statusCode code="completed" /> <effectiveTime value="087458160948" /> <value unit="Units/L" xsi:type="PQ" value="123 " /> <referenceRange> <observationRange> <text> 73-393</text> </observationRange> </referenceRange> < /observation> </component> </organizer> </entry> <entry> < organizer moodCode="EVN" classCode="BATTERY"> <templateId root= "216.840.1.244598.10..22.4.1" /> <id nullFlavor="NA" /> <code codeSystem="local" code="UA" displayName="URINALYSIS, ROUTINE" /> < statusCode code="completed" /> <component> <observation moodCode= "EVN" classCode="OBS"> <templateId root="216.840.1.584273.10..22.4.2 " /> <id nullFlavor="NA" /> <code codeSystem="local" code= "LEUESU" displayName="UA LEUKOCYTE ESTERASE DIPSTICK" /> <statusCode code="completed" /> <effectiveTime value="372035391571" /> < value unit="" xsi:type="PQ" value="NEGATIVE" /> <referenceRange> <observationRange> <text>NEGATIVE</text> </ observationRange> </referenceRange> </observation> </ component> <component> <observation moodCode="EVN" classCode="OBS"> <templateId root="16.840.1.775264.10..22.4.2" /> <id nullFlavor="NA" /> <code codeSystem="local" code="NITRIU" displayName= "UA NITRITE DIPSTICK" /> <statusCode code="completed" /> < effectiveTime value="" /> <value unit="" xsi:type="PQ" value="NEGATIVE" /> <referenceRange> <observationRange> <text>NEGATIVE</text> </observationRange> </ referenceRange> </observation> </component> <component> <observation moodCode="EVN" classCode="OBS"> <templateId root= "06.08.840.1.579259...4.2" /> <id nullFlavor="NA" /> < code codeSystem="local" code="PROTEIU" displayName="UA PROTEIN DIPSTICK" /> <statusCode code="completed" /> <effectiveTime value= "" /> <value unit="" xsi:type="PQ" value="NEGATIVE" /> <referenceRange> <observationRange> <text>NEGATIVE </text> </observationRange> </referenceRange> </ observation> </component> <component> <observation moodCode= "EVN" classCode="OBS"> <templateId root="06.08.840.1.360673.02.09.22.4.2 " /> <id nullFlavor="NA" /> <code codeSystem="local" code= "DGLUU" displayName="UA GLUCOSE DIPSTICK" /> <statusCode code= "completed" /> <effectiveTime value="" /> <value unit="" xsi:type="PQ" value="NEGATIVE" /> <referenceRange> < observationRange> <text>NEGATIVE</text> </ observationRange> </referenceRange> </observation> </ component> <component> <observation moodCode="EVN" classCode="OBS"> <templateId root="216.840.1.600239.10.4.2" /> <id nullFlavor="NA" /> <code codeSystem="local" code="KETONU" displayName= "UA KETONE DIPSTICK" /> <statusCode code="completed" /> < effectiveTime value="" /> <value unit="" xsi:type="PQ" value="NEGATIVE" /> <referenceRange> <observationRange> <text>NEGATIVE</text> </observationRange> </ referenceRange> </observation> </component> <component> <observation moodCode="EVN" classCode="OBS"> <templateId root= "216.840.1.723230.02.09.22.4.2" /> <id nullFlavor="NA" /> < code codeSystem="local" code="UROBILU" displayName="UA UROBILINOGEN DIPSTICK" / > <statusCode code="completed" /> <effectiveTime value= "" /> <value unit="" xsi:type="PQ" value="NORMAL" /> <referenceRange> <observationRange> <text>NORMAL</ text> </observationRange> </referenceRange> </ observation> </component> <component> <observation moodCode= "EVN" classCode="OBS"> <templateId root="16.840.1.624747.10.4.2 " /> <id nullFlavor="NA" /> <code codeSystem="local" code= "BILU" displayName="UA BILIRUBIN DIPSTICK" /> <statusCode code= "completed" /> <effectiveTime value="654035439617" /> <value unit="" xsi:type="PQ" value="NEGATIVE" /> <referenceRange> < observationRange> <text>NEGATIVE</text> </ observationRange> </referenceRange> </observation> </ component> <component> <observation moodCode="EVN" classCode="OBS"> <templateId root="16.840.1.017715.10.4.2" /> <id nullFlavor="NA" /> <code codeSystem="local" code="SPENCER" displayName="UA BLOOD DIPSTICK" /> <statusCode code="completed" /> < effectiveTime value="" /> <value unit="" xsi:type="PQ" value="NEGATIVE" /> <referenceRange> <observationRange> <text>NEGATIVE</text> </observationRange> </ referenceRange> </observation> </component> <component> <observation moodCode="EVN" classCode="OBS"> <templateId root= "06.08.840.1.967177.02.09.22.4.2" /> <id nullFlavor="NA" /> < code codeSystem="local" code="SPGRU" displayName="UA SPECIFIC GRAVITY" /> <statusCode code="completed" /> <effectiveTime value="335272916611 " /> <value unit="" xsi:type="PQ" value="1.015" /> < referenceRange> <observationRange> <text>1.015-1.025</ text> </observationRange> </referenceRange> </ observation> </component> <component> <observation moodCode= "EVN" classCode="OBS"> <templateId root="06.08.840.1.080853.02.09.22.4.2 " /> <id nullFlavor="NA" /> <code codeSystem="local" code="FEROZ " displayName="UR PH" /> <statusCode code="completed" /> < effectiveTime value="" /> <value unit="" xsi:type="PQ" value="6.0" /> <referenceRange> <observationRange> <text>5.0-7.0</text> </observationRange> </ referenceRange> </observation> </component> </organizer> </entry > <entry> <organizer moodCode="EVN" classCode="BATTERY"> <templateId root="06.08.840.1.108064.1022.4.1" /> <id nullFlavor="NA" /> <code codeSystem="local" code="PREGU" displayName="UR TEST" /> < statusCode code="completed" /> <component> <observation moodCode= "EVN" classCode="OBS"> <templateId root="06.08.840.1.856672...4.2 " /> <id nullFlavor="NA" /> <code codeSystem="local" code= "PREGU" displayName="UR TEST" /> <statusCode code="completed " /> <effectiveTime value="730367555374" /> <value unit="" xsi :type="PQ" value="NEGATIVE" /> <referenceRange> < observationRange> <text>NEGATIVE</text> </ observationRange> </referenceRange> </observation> </ component> </organizer> </entry> <entry> <organizer moodCode="EVN" classCode="BATTERY"> <templateId root="06.08.840.1.504264.10..4.1" /> <id nullFlavor="NA" /> <code codeSystem="local" code="CBCD" displayName="CBC W/DIFF" /> <statusCode code="completed" /> <component > <observation moodCode="EVN" classCode="OBS"> <templateId root= "06.08.840.1.448145.10.20.22.4.2" /> <id nullFlavor="NA" /> < code codeSystem="local" code="GR#" displayName="GRANULOCYTE #" /> < statusCode code="completed" /> <effectiveTime value="575828836922" /> <value unit="k/cumm" xsi:type="PQ" value="8.2" /> < referenceRange> <observationRange> <text>2.0-9.0</text> </observationRange> </referenceRange> </observation > </component> <component> <observation moodCode="EVN" classCode="OBS"> <templateId root="16.840.1.274408.02.09.22.4.2" /> <id nullFlavor="NA" /> <code codeSystem="local" code="GR% " displayName="GRANULOCYTE %" /> <statusCode code="completed" /> <effectiveTime value="440721809790" /> <value unit="%" xsi: type="PQ" value="76" /> <interpretationCode codeSystem="local" code="* " /> <referenceRange> <observationRange> <text> 50-75</text> </observationRange> </referenceRange> </ observation> </component> <component> <observation moodCode= "EVN" classCode="OBS"> <templateId root="06.08.840.1.845332.10.4.2 " /> <id nullFlavor="NA" /> <code codeSystem="local" code="LY# " displayName="LYMPHOCYTE #" /> <statusCode code="completed" /> <effectiveTime value="069344757167" /> <value unit="k/cumm" xsi:type ="PQ" value="2.2" /> <referenceRange> <observationRange> <text>1.0-4.0</text> </observationRange> </ referenceRange> </observation> </component> <component> <observation moodCode="EVN" classCode="OBS"> <templateId root= "216.840.1.363781.10.22.4.2" /> <id nullFlavor="NA" /> < code codeSystem="local" code="LY%" displayName="LYMPHOCYTE %" /> <statusCode code="completed" /> <effectiveTime value="261566663506" /> <value unit="%" xsi:type="PQ" value="20" /> < referenceRange> <observationRange> <text>20-30</text> </observationRange> </referenceRange> </observation> </component> <component> <observation moodCode="EVN" classCode= "OBS"> <templateId root="2.840.1.622943.10..4.2" /> < id nullFlavor="NA" /> <code codeSystem="local" code="MCH" displayName= "MEAN CELL HGB" /> <statusCode code="completed" /> < effectiveTime value="856275149299" /> <value unit="pg" xsi:type="PQ" value="34.8" /> <interpretationCode codeSystem="local" code="*" /> <referenceRange> <observationRange> <text>27.0- 33.0</text> </observationRange> </referenceRange> </ observation> </component> <component> <observation moodCode= "EVN" classCode="OBS"> <templateId root="216.840.1.160054.10..4.2 " /> <id nullFlavor="NA" /> <code codeSystem="local" code= "MCHC" displayName="MEAN CELL HGB CONCENTRATION" /> <statusCode code= "completed" /> <effectiveTime value="306921564500" /> <value unit="g/dL" xsi:type="PQ" value="34.1" /> <referenceRange> < observationRange> <text>32.0-37.0</text> </ observationRange> </referenceRange> </observation> </ component> <component> <observation moodCode="EVN" classCode="OBS"> <templateId root="06.08.840.1.105153.22.4.2" /> <id nullFlavor="NA" /> <code codeSystem="local" code="MCV" displayName= "MEAN CELL VOLUME" /> <statusCode code="completed" /> < effectiveTime value="342564460242" /> <value unit="fl" xsi:type="PQ" value="102.1" /> <interpretationCode codeSystem="local" code="*" /> <referenceRange> <observationRange> <text>80.0- 100.0</text> </observationRange> </referenceRange> </ observation> </component> <component> <observation moodCode= "EVN" classCode="OBS"> <templateId root="06.08.840.1.176393.22.4.2 " /> <id nullFlavor="NA" /> <code codeSystem="local" code="MO# " displayName="MONOCYTE #" /> <statusCode code="completed" /> <effectiveTime value="424032335725" /> <value unit="k/cumm" xsi:type= "PQ" value="0.4" /> <referenceRange> <observationRange> <text>0.1-1.0</text> </observationRange> </ referenceRange> </observation> </component> <component> <observation moodCode="EVN" classCode="OBS"> <templateId root= "06.08.840.1.404143.02.09.22.4.2" /> <id nullFlavor="NA" /> < code codeSystem="local" code="MO%" displayName="MONOCYTE %" /> <statusCode code="completed" /> <effectiveTime value="214812769821" /> <value unit="%" xsi:type="PQ" value="4" /> < referenceRange> <observationRange> <text>4-6</text> </observationRange> </referenceRange> </observation> </component> <component> <observation moodCode="EVN" classCode= "OBS"> <templateId root="2.16.840.1.014008.10..4.2" /> < id nullFlavor="NA" /> <code codeSystem="local" code="RBC" displayName= "RED BLOOD CELL" /> <statusCode code="completed" /> < effectiveTime value="502708277783" /> <value unit="m/cumm" xsi:type="PQ " value="3.79" /> <interpretationCode codeSystem="local" code="*" /> <referenceRange> <observationRange> <text>4.00- 6.00</text> </observationRange> </referenceRange> </ observation> </component> <component> <observation moodCode= "EVN" classCode="OBS"> <templateId root="216.840.1.750896.10.22.4.2 " /> <id nullFlavor="NA" /> <code codeSystem="local" code="RDW " displayName="RED CELL DISTRIBUTION WIDTH" /> <statusCode code= "completed" /> <effectiveTime value="559816563346" /> <value unit="%" xsi:type="PQ" value="13.3" /> <referenceRange> <observationRange> <text>11.0-15.6</text> </ observationRange> </referenceRange> </observation> </ component> <component> <observation moodCode="EVN" classCode="OBS"> <templateId root="216.840.1.714514.10.2022.4.2" /> <id nullFlavor="NA" /> <code codeSystem="local" code="WBC" displayName= "WHITE BLOOD CELL" /> <statusCode code="completed" /> < effectiveTime value="415336223035" /> <value unit="k/cumm" xsi:type="PQ " value="10.9" /> <interpretationCode codeSystem="local" code="*" /> <referenceRange> <observationRange> <text>5.0- 10.0</text> </observationRange> </referenceRange> </ observation> </component> <component> <observation moodCode= "EVN" classCode="OBS"> <templateId root="16.840.1.066496.22.4.2 " /> <id nullFlavor="NA" /> <code codeSystem="local" code= "HGBT" displayName="HEMOGLOBIN" /> <statusCode code="completed" /> <effectiveTime value="508011018463" /> <value unit="gm/dL" xsi: type="PQ" value="13.2" /> <referenceRange> <observationRange > <text>12.0-16.0</text> </observationRange> </ referenceRange> </observation> </component> <component> <observation moodCode="EVN" classCode="OBS"> <templateId root= "16.840.1.207806.1022.4.2" /> <id nullFlavor="NA" /> < code codeSystem="local" code="HCTT" displayName="HEMATOCRIT" /> < statusCode code="completed" /> <effectiveTime value="336953068146" /> <value unit="%" xsi:type="PQ" value="38.7" /> < referenceRange> <observationRange> <text>37.0-47.0</text > </observationRange> </referenceRange> </observation > </component> <component> <observation moodCode="EVN" classCode="OBS"> <templateId root="840.1.036392.22.4.2" /> <id nullFlavor="NA" /> <code codeSystem="local" code="PLTT" displayName="PLATELET COUNT" /> <statusCode code="completed" /> <effectiveTime value="342490587732" /> <value unit="k/cumm" xsi:type ="PQ" value="309" /> <referenceRange> <observationRange> <text>150-450</text> </observationRange> </ referenceRange> </observation> </component> </organizer> </entry > <entry> <organizer moodCode="EVN" classCode="BATTERY"> <templateId root="840.1.575194.22.4.1" /> <id nullFlavor="NA" /> <code codeSystem="local" code="METABC" displayName="METABOLIC PANEL, COMPREHN" /> <statusCode code="completed" /> <component> <observation moodCode= "EVN" classCode="OBS"> <templateId root="840.1.514092.1022.4.2 " /> <id nullFlavor="NA" /> <code codeSystem="local" code="K" displayName="POTASSIUM" /> <statusCode code="completed" /> < effectiveTime value="171113273706" /> <value unit="mmol/L" xsi:type="PQ " value="3.1" /> <interpretationCode codeSystem="local" code="*" /> <referenceRange> <observationRange> <text>3.5-5.3 </text> </observationRange> </referenceRange> </ observation> </component> <component> <observation moodCode= "EVN" classCode="OBS"> <templateId root="16.840.1.812848....4.2 " /> <id nullFlavor="NA" /> <code codeSystem="local" code= "eGFR" displayName="EST GFR (MDRD)" /> <statusCode code="completed" /> <effectiveTime value="746160228624" /> <value unit="mL/min" xsi:type="PQ" value="> 60" /> <referenceRange> < observationRange> <text>> 59</text> </ observationRange> </referenceRange> </observation> </ component> <component> <observation moodCode="EVN" classCode="OBS"> <templateId root="840.1.048662.02.09.22.4.2" /> <id nullFlavor="NA" /> <code codeSystem="local" code="GAP" displayName= "ANION GAP" /> <statusCode code="completed" /> <effectiveTime value="963648932090" /> <value unit="mmol/L" xsi:type="PQ" value="15" / > <referenceRange> <observationRange> <text>5- 15</text> </observationRange> </referenceRange> </ observation> </component> <component> <observation moodCode= "EVN" classCode="OBS"> <templateId root="06.08.840.1.998253.10..22.4.2 " /> <id nullFlavor="NA" /> <code codeSystem="local" code= "eCrCl" displayName="EST CrCl (CG)" /> <statusCode code="completed" /> <effectiveTime value="314198016390" /> <value unit="mL/min" xsi:type="PQ" value="> 60" /> <referenceRange> < observationRange> <text>> 59</text> </ observationRange> </referenceRange> </observation> </ component> <component> <observation moodCode="EVN" classCode="OBS"> <templateId root="216.840.1.078970.10.20.22.4.2" /> <id nullFlavor="NA" /> <code codeSystem="local" code="GLU" displayName= "GLUCOSE" /> <statusCode code="completed" /> <effectiveTime value="947859624998" /> <value unit="mg/dL" xsi:type="PQ" value="134" / > <interpretationCode codeSystem="local" code="*" /> < referenceRange> <observationRange> <text>70-99</text> </observationRange> </referenceRange> </observation> </component> <component> <observation moodCode="EVN" classCode= "OBS"> <templateId root="216.840.1.421127.10.20.22.4.2" /> < id nullFlavor="NA" /> <code codeSystem="local" code="CA" displayName= "CALCIUM" /> <statusCode code="completed" /> <effectiveTime value="396878176863" /> <value unit="mg/dL" xsi:type="PQ" value="9.8" / > <referenceRange> <observationRange> <text>8.5 -10.1</text> </observationRange> </referenceRange> </ observation> </component> <component> <observation moodCode= "EVN" classCode="OBS"> <templateId root="2.16.840.1.017674.10..22.4.2 " /> <id nullFlavor="NA" /> <code codeSystem="local" code="BUN " displayName="BLOOD UREA NITROGEN" /> <statusCode code="completed" /> <effectiveTime value="284940165416" /> <value unit="mg/dL" xsi:type="PQ" value="12" /> <referenceRange> < observationRange> <text>7-20</text> </observationRange> </referenceRange> </observation> </component> < component> <observation moodCode="EVN" classCode="OBS"> < templateId root="2.16.840.1.874028.10...4.2" /> <id nullFlavor="NA " /> <code codeSystem="local" code="CREAT" displayName="CREATININE" /> <statusCode code="completed" /> <effectiveTime value= "851392525460" /> <value unit="mg/dL" xsi:type="PQ" value="0.7" /> <referenceRange> <observationRange> <text>0.6-1.0< /text> </observationRange> </referenceRange> </ observation> </component> <component> <observation moodCode= "EVN" classCode="OBS"> <templateId root="2.16.840.1.405130.10..22.4.2 " /> <id nullFlavor="NA" /> <code codeSystem="local" code="NA " displayName="SODIUM" /> <statusCode code="completed" /> < effectiveTime value="803034464688" /> <value unit="mmol/L" xsi:type="PQ " value="140" /> <referenceRange> <observationRange> <text>135-148</text> </observationRange> </ referenceRange> </observation> </component> <component> <observation moodCode="EVN" classCode="OBS"> <templateId root= "216.840.1.322280.10..22.4.2" /> <id nullFlavor="NA" /> < code codeSystem="local" code="CL" displayName="CHLORIDE" /> < statusCode code="completed" /> <effectiveTime value="280781282411" /> <value unit="mmol/L" xsi:type="PQ" value="103" /> < referenceRange> <observationRange> <text>98-110</text> </observationRange> </referenceRange> </observation> </component> <component> <observation moodCode="EVN" classCode ="OBS"> <templateId root="216.840.1.422944.10...4.2" /> < id nullFlavor="NA" /> <code codeSystem="local" code="AST" displayName= "AST/SGOT" /> <statusCode code="completed" /> <effectiveTime value="771100000931" /> <value unit="Units/L" xsi:type="PQ" value="14" /> <referenceRange> <observationRange> <text>10 -37</text> </observationRange> </referenceRange> </ observation> </component> <component> <observation moodCode= "EVN" classCode="OBS"> <templateId root="216.840.1.722447.10.20.22.4.2 " /> <id nullFlavor="NA" /> <code codeSystem="local" code="ALT " displayName="ALT/SGPT" /> <statusCode code="completed" /> < effectiveTime value="103315537339" /> <value unit="Units/L" xsi:type= "PQ" value="19" /> <referenceRange> <observationRange> <text>< 66</text> </observationRange> </ referenceRange> </observation> </component> <component> <observation moodCode="EVN" classCode="OBS"> <templateId root= "216.840.1.283127.10.4.2" /> <id nullFlavor="NA" /> < code codeSystem="local" code="CO2" displayName="CARBON DIOXIDE" /> < statusCode code="completed" /> <effectiveTime value="539010776866" /> <value unit="mmol/L" xsi:type="PQ" value="22" /> < referenceRange> <observationRange> <text>21-32</text> </observationRange> </referenceRange> </observation> </component> <component> <observation moodCode="EVN" classCode= "OBS"> <templateId root="06.08.840.1.218223.02.09.224.2" /> < id nullFlavor="NA" /> <code codeSystem="local" code="TP" displayName= "TOTAL PROTEIN" /> <statusCode code="completed" /> < effectiveTime value="059367535596" /> <value unit="gm/dL" xsi:type="PQ " value="8.5" /> <interpretationCode codeSystem="local" code="*" /> <referenceRange> <observationRange> <text>6.4-8.2 </text> </observationRange> </referenceRange> </ observation> </component> <component> <observation moodCode= "EVN" classCode="OBS"> <templateId root="16.840.1.898380.02.09.22.4.2 " /> <id nullFlavor="NA" /> <code codeSystem="local" code="ALB " displayName="ALBUMIN" /> <statusCode code="completed" /> < effectiveTime value="797958492994" /> <value unit="gm/dL" xsi:type="PQ " value="4.3" /> <referenceRange> <observationRange> <text>3.4-5.0</text> </observationRange> </ referenceRange> </observation> </component> <component> <observation moodCode="EVN" classCode="OBS"> <templateId root= "216.840.1.855397.10..4.2" /> <id nullFlavor="NA" /> < code codeSystem="local" code="BILTOT" displayName="BILI TOTAL" /> < statusCode code="completed" /> <effectiveTime value="196651004937" /> <value unit="mg/dL" xsi:type="PQ" value="0.4" /> < referenceRange> <observationRange> <text>0.0-1.0</text> </observationRange> </referenceRange> </observation > </component> <component> <observation moodCode="EVN" classCode="OBS"> <templateId root="216.840.1.130850.10..4.2" /> <id nullFlavor="NA" /> <code codeSystem="local" code="ALKP" displayName="ALKALINE PHOSPHATASE TOTAL" /> <statusCode code="completed " /> <effectiveTime value="166437791358" /> <value unit="IU/L " xsi:type="PQ" value="66" /> <referenceRange> < observationRange> <text>45-117</text> </observationRange > </referenceRange> </observation> </component> </ organizer> </entry> <entry> <organizer moodCode="EVN" classCode="BATTERY"> <templateId root="2.16.840.1.845668.10..22.4.1" /> <id nullFlavor= "NA" /> <code codeSystem="local" code="WET" displayName="WET MOUNT" /> <statusCode code="completed" /> <component> <observation moodCode= "EVN" classCode="OBS"> <templateId root="216.840.1.149122.10..22.4.2 " /> <id nullFlavor="NA" /> <code codeSystem="local" code="MB " displayName="Microbiology" /> <statusCode code="completed" /> <effectiveTime value="838296214651" /> <value xsi:type="ST" value="< pre><b>WET MOUNT</b> [facility] Adele Date/Time: 08/2016 18:03 Karen Date/Time: // :SOURCE: CERVIXSPEC DESC: [facility]() Adele Date/Time: 2016 18:03 Karen Date/Time: 02/25/2017 18:27SOURCE : CERVIXSPEC DESC: CLUE CELLSNO CLUE CELLS SEENOTHERBACTERIA 3+TRICHOMONASNO TRICHOMONAS SEENWBCFEW WBCYEASTNO YEAST [facility]ENMETHOD[facility] [id number] [place] [address]</pre>" /> <referenceRange> < observationRange> <text /> </observationRange> </referenceRange> </observation> </component> </organizer> </ entry> <entry> <organizer moodCode="EVN" classCode="BATTERY"> < templateId root="216.840.1.839640.10..22.4.1" /> <id nullFlavor="NA" /> <code codeSystem="local" code="PREGN" displayName=" Screen, Urine NPT" /> <statusCode code="completed" /> <component> < observation moodCode="EVN" classCode="OBS"> <templateId root= "216.840.1.068765.22.4.2" /> <id nullFlavor="NA" /> < code codeSystem="local" code="PREGN" displayName=" Screen, Urine NPT" / > <statusCode code="completed" /> <effectiveTime value= "951908843154" /> <value unit="NA" xsi:type="PQ" value="Negative" /> <referenceRange> <observationRange> <text /> </observationRange> </referenceRange> </observation> </component> </organizer> </entry> <entry> <organizer moodCode="EVN " classCode="BATTERY"> <templateId root="16.840.1.041850.02.09.22.4.1" / > <id nullFlavor="NA" /> <code codeSystem="local" code="CBCWD" displayName="CBC With Platelet and Differential" /> <statusCode code= "completed" /> <component> <observation moodCode="EVN" classCode= "OBS"> <templateId root="16.840.1.843176...4.2" /> < id nullFlavor="NA" /> <code codeSystem="local" code="ABASR" displayName ="Absolute Basophils" /> <statusCode code="completed" /> < effectiveTime value="258370378193" /> <value unit="10*3/uL" xsi:type= "PQ" value="0.02" /> <referenceRange> <observationRange> <text>0.00-0.20</text> </observationRange> </ referenceRange> </observation> </component> <component> <observation moodCode="EVN" classCode="OBS"> <templateId root= "16.840.1.035905.10..22.4.2" /> <id nullFlavor="NA" /> < code codeSystem="local" code="AEOSR" displayName="Absolute Eosinophils" /> <statusCode code="completed" /> <effectiveTime value="305038193715 " /> <value unit="10*3/uL" xsi:type="PQ" value="0.02" /> < referenceRange> <observationRange> <text>0.00-0.50</text > </observationRange> </referenceRange> </observation > </component> <component> <observation moodCode="EVN" classCode="OBS"> <templateId root="2.16.840.1.523793.10..22.4.2" /> <id nullFlavor="NA" /> <code codeSystem="local" code="ALYMR" displayName="Absolute Lymphocytes" /> <statusCode code="completed" /> <effectiveTime value="111880099571" /> <value unit="10*3/uL" xsi:type="PQ" value="2.13" /> <referenceRange> < observationRange> <text>0.80-3.30</text> </ observationRange> </referenceRange> </observation> </ component> <component> <observation moodCode="EVN" classCode="OBS"> <templateId root="2.16.840.1.148721.10.20.22.4.2" /> <id nullFlavor="NA" /> <code codeSystem="local" code="AMONR" displayName= "Absolute Monocytes" /> <statusCode code="completed" /> < effectiveTime value="308944453929" /> <value unit="10*3/uL" xsi:type= "PQ" value="0.53" /> <referenceRange> <observationRange> <text>0.30-1.00</text> </observationRange> </ referenceRange> </observation> </component> <component> <observation moodCode="EVN" classCode="OBS"> <templateId root= "06.08.840.1.557832.10.20.22.4.2" /> <id nullFlavor="NA" /> < code codeSystem="local" code="ASEGR" displayName="Absolute Neutrophils" /> <statusCode code="completed" /> <effectiveTime value=" " /> <value unit="10*3/uL" xsi:type="PQ" value="6.22" /> < referenceRange> <observationRange> <text>1.90-7.00</text > </observationRange> </referenceRange> </observation > </component> <component> <observation moodCode="EVN" classCode="OBS"> <templateId root="06.08.840.1.205475.10.22.4.2" /> <id nullFlavor="NA" /> <code codeSystem="local" code="BASOR" displayName="Basophils" /> <statusCode code="completed" /> < effectiveTime value="" /> <value unit="%" xsi:type="PQ " value="0" /> <referenceRange> <observationRange> <text>0-2</text> </observationRange> </referenceRange> </observation> </component> <component> <observation moodCode="EVN" classCode="OBS"> <templateId root= "06.08.840.1.804222.10.2022.4.2" /> <id nullFlavor="NA" /> < code codeSystem="local" code="EOSR" displayName="Eosinophils" /> < statusCode code="completed" /> <effectiveTime value="518641579684" /> <value unit="%" xsi:type="PQ" value="0" /> <referenceRange > <observationRange> <text>0-4</text> </ observationRange> </referenceRange> </observation> </ component> <component> <observation moodCode="EVN" classCode="OBS"> <templateId root="2.16.840.1.325419.10.22.4.2" /> <id nullFlavor="NA" /> <code codeSystem="local" code="HCT" displayName="HCT " /> <statusCode code="completed" /> <effectiveTime value= "708055515416" /> <value unit="%" xsi:type="PQ" value="40.7" /> <referenceRange> <observationRange> <text>37.0- 47.0</text> </observationRange> </referenceRange> </ observation> </component> <component> <observation moodCode= "EVN" classCode="OBS"> <templateId root="216.840.1.060136...4.2 " /> <id nullFlavor="NA" /> <code codeSystem="local" code="HGB " displayName="HGB" /> <statusCode code="completed" /> < effectiveTime value="213017120338" /> <value unit="g/dL" xsi:type="PQ" value="14.0" /> <referenceRange> <observationRange> <text>12.0-16.0</text> </observationRange> </ referenceRange> </observation> </component> <component> <observation moodCode="EVN" classCode="OBS"> <templateId root= "2.16.840.1.262077.10...4.2" /> <id nullFlavor="NA" /> < code codeSystem="local" code="IMGA" displayName="Immature Granulocytes" /> <statusCode code="completed" /> <effectiveTime value="645237979608 " /> <value unit="%" xsi:type="PQ" value="0.2" /> < referenceRange> <observationRange> <text>0.0-1.0</text> </observationRange> </referenceRange> </observation > </component> <component> <observation moodCode="EVN" classCode="OBS"> <templateId root="16.840.1.883122.10...4.2" /> <id nullFlavor="NA" /> <code codeSystem="local" code="LYMPR" displayName="Lymphocytes" /> <statusCode code="completed" /> < effectiveTime value="045320813115" /> <value unit="%" xsi:type="PQ " value="24" /> <referenceRange> <observationRange> <text>20-46</text> </observationRange> </ referenceRange> </observation> </component> <component> <observation moodCode="EVN" classCode="OBS"> <templateId root= "06.08.840.1.979038.10...4.2" /> <id nullFlavor="NA" /> < code codeSystem="local" code="MCH" displayName="MCH" /> <statusCode code="completed" /> <effectiveTime value="294710080223" /> < value unit="pg" xsi:type="PQ" value="34.4" /> <interpretationCode codeSystem="local" code="*" /> <referenceRange> < observationRange> <text>27.0-32.0</text> </ observationRange> </referenceRange> </observation> </ component> <component> <observation moodCode="EVN" classCode="OBS"> <templateId root="06.08.840.1.891749.10.20.22.4.2" /> <id nullFlavor="NA" /> <code codeSystem="local" code="MCHC" displayName= "MCHC" /> <statusCode code="completed" /> <effectiveTime value ="401809899422" /> <value unit="g/dL" xsi:type="PQ" value="34.4" /> <referenceRange> <observationRange> <text>32.0- 36.0</text> </observationRange> </referenceRange> </ observation> </component> <component> <observation moodCode= "EVN" classCode="OBS"> <templateId root="216.840.1.306927.10..22.4.2 " /> <id nullFlavor="NA" /> <code codeSystem="local" code="MCV " displayName="MCV" /> <statusCode code="completed" /> < effectiveTime value="232912768215" /> <value unit="fL" xsi:type="PQ" value="100.0" /> <interpretationCode codeSystem="local" code="*" /> <referenceRange> <observationRange> <text>82.0- 99.0</text> </observationRange> </referenceRange> </ observation> </component> <component> <observation moodCode= "EVN" classCode="OBS"> <templateId root="16.840.1.957382.10..22.4.2 " /> <id nullFlavor="NA" /> <code codeSystem="local" code= "MONOR" displayName="Monocytes" /> <statusCode code="completed" /> <effectiveTime value="883932909175" /> <value unit="%" xsi: type="PQ" value="6" /> <referenceRange> <observationRange> <text>4-11</text> </observationRange> </ referenceRange> </observation> </component> <component> <observation moodCode="EVN" classCode="OBS"> <templateId root= "16.840.1.146802.10..22.4.2" /> <id nullFlavor="NA" /> < code codeSystem="local" code="MPV" displayName="MPV" /> <statusCode code="completed" /> <effectiveTime value="755414851678" /> < value unit="fL" xsi:type="PQ" value="8.7" /> <interpretationCode codeSystem="local" code="*" /> <referenceRange> < observationRange> <text>9.4-12.4</text> </ observationRange> </referenceRange> </observation> </ component> <component> <observation moodCode="EVN" classCode="OBS"> <templateId root="06.08.840.1.992692.02.09.22.4.2" /> <id nullFlavor="NA" /> <code codeSystem="local" code="SEGR" displayName= "Neutrophils" /> <statusCode code="completed" /> < effectiveTime value="" /> <value unit="%" xsi:type="PQ " value="70" /> <referenceRange> <observationRange> <text>51-75</text> </observationRange> </ referenceRange> </observation> </component> <component> <observation moodCode="EVN" classCode="OBS"> <templateId root= "06.08.840.1.112247.10...4.2" /> <id nullFlavor="NA" /> < code codeSystem="local" code="NRBCA" displayName="Nucleated RBC Automated" /> <statusCode code="completed" /> <effectiveTime value= "863439982662" /> <value unit="/100WBC" xsi:type="PQ" value="0.0" /> <referenceRange> <observationRange> <text /> </observationRange> </referenceRange> </observation> </component> <component> <observation moodCode="EVN" classCode= "OBS"> <templateId root="06.08.840.1.012649.1022.4.2" /> < id nullFlavor="NA" /> <code codeSystem="local" code="PLT" displayName= "Platelet Count" /> <statusCode code="completed" /> < effectiveTime value="" /> <value unit="K/uL" xsi:type="PQ" value="335" /> <referenceRange> <observationRange> <text>150-400</text> </observationRange> </ referenceRange> </observation> </component> <component> <observation moodCode="EVN" classCode="OBS"> <templateId root= "840.1.804459.02.09.22.4.2" /> <id nullFlavor="NA" /> < code codeSystem="local" code="RBC" displayName="RBC" /> <statusCode code="completed" /> <effectiveTime value="" /> < value unit="10*6/uL" xsi:type="PQ" value="4.07" /> <referenceRange> <observationRange> <text>4.00-5.20</text> </ observationRange> </referenceRange> </observation> </ component> <component> <observation moodCode="EVN" classCode="OBS"> <templateId root="06.08.840.1.422680.102022.4.2" /> <id nullFlavor="NA" /> <code codeSystem="local" code="RDW" displayName="RDW " /> <statusCode code="completed" /> <effectiveTime value= "943376777499" /> <value unit="%" xsi:type="PQ" value="12.7" /> <referenceRange> <observationRange> <text>11.5- 14.5</text> </observationRange> </referenceRange> </ observation> </component> <component> <observation moodCode= "EVN" classCode="OBS"> <templateId root="840.1.682268.22.4.2 " /> <id nullFlavor="NA" /> <code codeSystem="local" code= "WBCIR" displayName="WBC" /> <statusCode code="completed" /> < effectiveTime value="382650373731" /> <value unit="K/uL" xsi:type="PQ" value="8.9" /> <referenceRange> <observationRange> <text>4.8-10.8</text> </observationRange> </ referenceRange> </observation> </component> </organizer> </entry > <entry> <organizer moodCode="EVN" classCode="BATTERY"> <templateId root="06.08.840.1.425244.22.4.1" /> <id nullFlavor="NA" /> <code codeSystem="local" code="CMP" displayName="Comprehensive Metabolic Panel (CMP)" /> <statusCode code="completed" /> <component> <observation moodCode="EVN" classCode="OBS"> <templateId root= "06.08.840.1.196270.22.4.2" /> <id nullFlavor="NA" /> < code codeSystem="local" code="ALB" displayName="Albumin" /> < statusCode code="completed" /> <effectiveTime value="651890164322" /> <value unit="g/dL" xsi:type="PQ" value="5.0" /> < interpretationCode codeSystem="local" code="*" /> <referenceRange> <observationRange> <text>3.5-4.8</text> </ observationRange> </referenceRange> </observation> </ component> <component> <observation moodCode="EVN" classCode="OBS"> <templateId root="06.08.840.1.929390.10..22.4.2" /> <id nullFlavor="NA" /> <code codeSystem="local" code="ALP" displayName= "Alkaline Phosphatase" /> <statusCode code="completed" /> < effectiveTime value="853345448627" /> <value unit="U/L" xsi:type="PQ" value="57" /> <referenceRange> <observationRange> <text>26-104</text> </observationRange> </referenceRange > </observation> </component> <component> <observation moodCode="EVN" classCode="OBS"> <templateId root= "06.08.840.1.266182.1022.4.2" /> <id nullFlavor="NA" /> < code codeSystem="local" code="ALT" displayName="ALT (SGPT)" /> < statusCode code="completed" /> <effectiveTime value="927394297603" /> <value unit="U/L" xsi:type="PQ" value="14" /> <referenceRange > <observationRange> <text>14-54</text> </ observationRange> </referenceRange> </observation> </ component> <component> <observation moodCode="EVN" classCode="OBS"> <templateId root="06.08.840.1.408058.10.2022.4.2" /> <id nullFlavor="NA" /> <code codeSystem="local" code="AGAP" displayName= "Anion Gap" /> <statusCode code="completed" /> <effectiveTime value="626800906520" /> <value unit="mEq/L" xsi:type="PQ" value="9" /> <referenceRange> <observationRange> <text>3-20 </text> </observationRange> </referenceRange> </ observation> </component> <component> <observation moodCode= "EVN" classCode="OBS"> <templateId root="06.08.840.1.285343.10..4.2 " /> <id nullFlavor="NA" /> <code codeSystem="local" code="AST " displayName="AST (SGOT)" /> <statusCode code="completed" /> <effectiveTime value="005748859855" /> <value unit="U/L" xsi:type="PQ" value="16" /> <referenceRange> <observationRange> <text>15-41</text> </observationRange> </referenceRange > </observation> </component> <component> <observation moodCode="EVN" classCode="OBS"> <templateId root= "06.08.840.1.667842.02.09.22.4.2" /> <id nullFlavor="NA" /> < code codeSystem="local" code="BILIT" displayName="Bilirubin Total" /> < statusCode code="completed" /> <effectiveTime value="339199592822" /> <value unit="mg/dL" xsi:type="PQ" value="0.4" /> < referenceRange> <observationRange> <text>0.2-1.2</text> </observationRange> </referenceRange> </observation > </component> <component> <observation moodCode="EVN" classCode="OBS"> <templateId root="2.840.1.449270.22.4.2" /> <id nullFlavor="NA" /> <code codeSystem="local" code="BUN" displayName="BUN" /> <statusCode code="completed" /> < effectiveTime value="933781249463" /> <value unit="mg/dL" xsi:type="PQ " value="12" /> <referenceRange> <observationRange> <text>4-20</text> </observationRange> </referenceRange > </observation> </component> <component> <observation moodCode="EVN" classCode="OBS"> <templateId root= "2.16.840.1.583260.02.09.22.4.2" /> <id nullFlavor="NA" /> < code codeSystem="local" code="CA" displayName="Calcium" /> <statusCode code="completed" /> <effectiveTime value="" /> < value unit="mg/dL" xsi:type="PQ" value="9.8" /> <referenceRange> <observationRange> <text>8.6-10.0</text> </ observationRange> </referenceRange> </observation> </ component> <component> <observation moodCode="EVN" classCode="OBS"> <templateId root="2.16.840.1.763802.10..22.4.2" /> <id nullFlavor="NA" /> <code codeSystem="local" code="CL" displayName= "Chloride" /> <statusCode code="completed" /> <effectiveTime value="509144207623" /> <value unit="mEq/L" xsi:type="PQ" value="105" / > <referenceRange> <observationRange> <text>99- 109</text> </observationRange> </referenceRange> </ observation> </component> <component> <observation moodCode= "EVN" classCode="OBS"> <templateId root="16.840.1.529506.10..22.4.2 " /> <id nullFlavor="NA" /> <code codeSystem="local" code="CO2 " displayName="CO2" /> <statusCode code="completed" /> < effectiveTime value="657181079482" /> <value unit="mEq/L" xsi:type="PQ " value="22" /> <referenceRange> <observationRange> <text>22-32</text> </observationRange> </ referenceRange> </observation> </component> <component> <observation moodCode="EVN" classCode="OBS"> <templateId root= "06.08.840.1.576553...4.2" /> <id nullFlavor="NA" /> < code codeSystem="local" code="CREAT" displayName="Creatinine" /> < statusCode code="completed" /> <effectiveTime value="" /> <value unit="mg/dL" xsi:type="PQ" value="0.61" /> < referenceRange> <observationRange> <text>0.44-1.03</text > </observationRange> </referenceRange> </observation > </component> <component> <observation moodCode="EVN" classCode="OBS"> <templateId root="06.08.840.1.525440....4.2" /> <id nullFlavor="NA" /> <code codeSystem="local" code="GLOB" displayName="Globulin" /> <statusCode code="completed" /> < effectiveTime value="329617076919" /> <value unit="g/dL" xsi:type="PQ" value="3.0" /> <referenceRange> <observationRange> <text>1.9-4.3</text> </observationRange> </ referenceRange> </observation> </component> <component> <observation moodCode="EVN" classCode="OBS"> <templateId root= "06.08.840.1.682902.10.4.2" /> <id nullFlavor="NA" /> < code codeSystem="local" code="GLU" displayName="Glucose" /> < statusCode code="completed" /> <effectiveTime value="" /> <value unit="mg/dL" xsi:type="PQ" value="83" /> < referenceRange> <observationRange> <text>70-100</text> </observationRange> </referenceRange> </observation> </component> <component> <observation moodCode="EVN" classCode ="OBS"> <templateId root="06.08.840.1.474635.02.09.22.4.2" /> < id nullFlavor="NA" /> <code codeSystem="local" code="K" displayName= "Potassium" /> <statusCode code="completed" /> <effectiveTime value="" /> <value unit="mEq/L" xsi:type="PQ" value="3.5" / > <interpretationCode codeSystem="local" code="*" /> < referenceRange> <observationRange> <text>3.6-5.1</text> </observationRange> </referenceRange> </observation > </component> <component> <observation moodCode="EVN" classCode="OBS"> <templateId root="06.08.840.1.521170...4.2" /> <id nullFlavor="NA" /> <code codeSystem="local" code="TP" displayName="Protein" /> <statusCode code="completed" /> < effectiveTime value="" /> <value unit="g/dL" xsi:type="PQ" value="8.0" /> <interpretationCode codeSystem="local" code="*" /> <referenceRange> <observationRange> <text>6.1-7.9</ text> </observationRange> </referenceRange> </ observation> </component> <component> <observation moodCode= "EVN" classCode="OBS"> <templateId root="16.840.1.063727.02.09.22.4.2 " /> <id nullFlavor="NA" /> <code codeSystem="local" code="NA " displayName="Sodium" /> <statusCode code="completed" /> < effectiveTime value="407904792273" /> <value unit="mEq/L" xsi:type="PQ " value="136" /> <referenceRange> <observationRange> <text>136-144</text> </observationRange> </ referenceRange> </observation> </component> </organizer> </entry > <entry> <organizer moodCode="EVN" classCode="BATTERY"> <templateId root="16.840.1.057154.02.09.22.4.1" /> <id nullFlavor="NA" /> <code codeSystem="local" code="GFR" displayName="eGFR" /> <statusCode code= "completed" /> <component> <observation moodCode="EVN" classCode= "OBS"> <templateId root="16.840.1.720647.02.09.22.4.2" /> < id nullFlavor="NA" /> <code codeSystem="local" code="GFR" displayName= "eGFR" /> <statusCode code="completed" /> <effectiveTime value ="576774306928" /> <value unit="mL/min" xsi:type="PQ" value=">60" / > <referenceRange> <observationRange> <text>&gt ;60</text> </observationRange> </referenceRange> </ observation> </component> </organizer> </entry> <entry> <organizer moodCode="EVN" classCode="BATTERY"> <templateId root= "16.840.1.090694.10..22.4.1" /> <id nullFlavor="NA" /> <code codeSystem="local" code="UA" displayName="Urinalysis with reflex microscopic" / > <statusCode code="completed" /> <component> <observation moodCode="EVN" classCode="OBS"> <templateId root= "216.840.1.563605.10...4.2" /> <id nullFlavor="NA" /> < code codeSystem="local" code="UAPP" displayName="Appearance" /> < statusCode code="completed" /> <effectiveTime value="287196978200" /> <value unit="NA" xsi:type="PQ" value="Sl Cloudy" /> < referenceRange> <observationRange> <text /> < /observationRange> </referenceRange> </observation> </ component> <component> <observation moodCode="EVN" classCode="OBS"> <templateId root="16.840.1.291565.10.4.2" /> <id nullFlavor="NA" /> <code codeSystem="local" code="UBIL" displayName= "Bilirubin" /> <statusCode code="completed" /> <effectiveTime value="421743233767" /> <value unit="NA" xsi:type="PQ" value="Positive " /> <interpretationCode codeSystem="local" code="*" /> < referenceRange> <observationRange> <text>Negative</text > </observationRange> </referenceRange> </observation > </component> <component> <observation moodCode="EVN" classCode="OBS"> <templateId root="16.840.1.600849.02.09.22.4.2" /> <id nullFlavor="NA" /> <code codeSystem="local" code="UBLD" displayName="Blood" /> <statusCode code="completed" /> < effectiveTime value="" /> <value unit="NA" xsi:type="PQ" value="Negative" /> <referenceRange> <observationRange> <text>Negative</text> </observationRange> </ referenceRange> </observation> </component> <component> <observation moodCode="EVN" classCode="OBS"> <templateId root= "216.840.1.239909.02.09.22.4.2" /> <id nullFlavor="NA" /> < code codeSystem="local" code="UCOLR" displayName="Color" /> < statusCode code="completed" /> <effectiveTime value="" /> <value unit="NA" xsi:type="PQ" value="Yellow" /> < referenceRange> <observationRange> <text /> < /observationRange> </referenceRange> </observation> </ component> <component> <observation moodCode="EVN" classCode="OBS"> <templateId root="16.840.1.258803.10.4.2" /> <id nullFlavor="NA" /> <code codeSystem="local" code="UGLU" displayName= "Glucose, Urine" /> <statusCode code="completed" /> < effectiveTime value="" /> <value unit="" xsi:type="PQ" value="Negative" /> <referenceRange> <observationRange> <text>Negative</text> </observationRange> </ referenceRange> </observation> </component> <component> <observation moodCode="EVN" classCode="OBS"> <templateId root= "216.840.1.536401.02.09.22.4.2" /> <id nullFlavor="NA" /> < code codeSystem="local" code="UKET" displayName="Ketones" /> < statusCode code="completed" /> <effectiveTime value="" /> <value unit="" xsi:type="PQ" value="Negative" /> < referenceRange> <observationRange> <text>Negative</text > </observationRange> </referenceRange> </observation > </component> <component> <observation moodCode="EVN" classCode="OBS"> <templateId root="06.08.840.1.874806.02.09.22.4.2" /> <id nullFlavor="NA" /> <code codeSystem="local" code="ULEU" displayName="Leukocyte Esterase" /> <statusCode code="completed" /> <effectiveTime value="" /> <value unit="NA" xsi:type ="PQ" value="Negative" /> <referenceRange> <observationRange > <text>Negative</text> </observationRange> </ referenceRange> </observation> </component> <component> <observation moodCode="EVN" classCode="OBS"> <templateId root= "06.08.840.1.842685.02.09.22.4.2" /> <id nullFlavor="NA" /> < code codeSystem="local" code="UNIT" displayName="Nitrites" /> < statusCode code="completed" /> <effectiveTime value="" /> <value unit="NA" xsi:type="PQ" value="Negative" /> < referenceRange> <observationRange> <text>Negative</text > </observationRange> </referenceRange> </observation > </component> <component> <observation moodCode="EVN" classCode="OBS"> <templateId root="06.08.840.1.314365.10.4.2" /> <id nullFlavor="NA" /> <code codeSystem="local" code="UPH" displayName="pH" /> <statusCode code="completed" /> < effectiveTime value="704094513683" /> <value unit="NA" xsi:type="PQ" value="5.5" /> <referenceRange> <observationRange> <text>5.0-8.0</text> </observationRange> </ referenceRange> </observation> </component> <component> <observation moodCode="EVN" classCode="OBS"> <templateId root= "840.1.430367.02.09.224.2" /> <id nullFlavor="NA" /> < code codeSystem="local" code="UPRO" displayName="Protein" /> < statusCode code="completed" /> <effectiveTime value="668416240742" /> <value unit="NA" xsi:type="PQ" value="Trace" /> < interpretationCode codeSystem="local" code="*" /> <referenceRange> <observationRange> <text>Negative</text> </ observationRange> </referenceRange> </observation> </ component> <component> <observation moodCode="EVN" classCode="OBS"> <templateId root="840.1.396087.02.09.22.4.2" /> <id nullFlavor="NA" /> <code codeSystem="local" code="USPG" displayName= "Specific [place]" /> <statusCode code="completed" /> < effectiveTime value="903021617529" /> <value unit="NA" xsi:type="PQ" value="1.015" /> <referenceRange> <observationRange> <text>1.003-1.030</text> </observationRange> </ referenceRange> </observation> </component> <component> <observation moodCode="EVN" classCode="OBS"> <templateId root= "216.840.1.977351.02.09.22.4.2" /> <id nullFlavor="NA" /> < code codeSystem="local" code="UTYP" displayName="UA Collection type" /> <statusCode code="completed" /> <effectiveTime value="638233833173" / > <value unit="NA" xsi:type="PQ" value="Clean Catch" /> < referenceRange> <observationRange> <text /> < /observationRange> </referenceRange> </observation> </ component> <component> <observation moodCode="EVN" classCode="OBS"> <templateId root="216.840.1.098260.02.09.22.4.2" /> <id nullFlavor="NA" /> <code codeSystem="local" code="UURO" displayName= "Urobilinogen" /> <statusCode code="completed" /> < effectiveTime value="079226633819" /> <value unit="mg/dL" xsi:type="PQ " value="0.2" /> <referenceRange> <observationRange> <text><1.0</text> </observationRange> </ referenceRange> </observation> </component> </organizer> </entry > <entry> <organizer moodCode="EVN" classCode="BATTERY"> <templateId root="2.16.840.1.360830...4.1" /> <id nullFlavor="NA" /> <code codeSystem="local" code="CBCD" displayName="CBC W/DIFF" /> <statusCode code ="completed" /> <component> <observation moodCode="EVN" classCode= "OBS"> <templateId root="06.08.840.1.309224.10...4.2" /> < id nullFlavor="NA" /> <code codeSystem="local" code="BA#" displayName= "BASOPHIL #" /> <statusCode code="completed" /> < effectiveTime value="127818422492" /> <value unit="k/cumm" xsi:type="PQ " value="0.0" /> <referenceRange> <observationRange> <text>0.0-0.2</text> </observationRange> </ referenceRange> </observation> </component> <component> <observation moodCode="EVN" classCode="OBS"> <templateId root= "840.1.608957.02.09.22.4.2" /> <id nullFlavor="NA" /> < code codeSystem="local" code="BA%" displayName="BASOPHIL %" /> <statusCode code="completed" /> <effectiveTime value="739540138983" /> <value unit="%" xsi:type="PQ" value="0.1" /> < referenceRange> <observationRange> <text>0-1</text> </observationRange> </referenceRange> </observation> </component> <component> <observation moodCode="EVN" classCode= "OBS"> <templateId root="06.08.840.1.055009.10..4.2" /> < id nullFlavor="NA" /> <code codeSystem="local" code="EO#" displayName= "EOSINOPHIL #" /> <statusCode code="completed" /> < effectiveTime value="463227078016" /> <value unit="k/cumm" xsi:type="PQ " value="0.1" /> <referenceRange> <observationRange> <text>0.1-0.5</text> </observationRange> </ referenceRange> </observation> </component> <component> <observation moodCode="EVN" classCode="OBS"> <templateId root= "16.840.1.782256.10.20.22.4.2" /> <id nullFlavor="NA" /> < code codeSystem="local" code="EO%" displayName="EOSINOPHIL %" /> <statusCode code="completed" /> <effectiveTime value="932215045136" /> <value unit="%" xsi:type="PQ" value="1.6" /> < interpretationCode codeSystem="local" code="*" /> <referenceRange> <observationRange> <text>2-4</text> </ observationRange> </referenceRange> </observation> </ component> <component> <observation moodCode="EVN" classCode="OBS"> <templateId root="16.840.1.150574.10.20.22.4.2" /> <id nullFlavor="NA" /> <code codeSystem="local" code="GR#" displayName= "GRANULOCYTE #" /> <statusCode code="completed" /> < effectiveTime value="241988697511" /> <value unit="k/cumm" xsi:type="PQ " value="3.1" /> <referenceRange> <observationRange> <text>2.0-9.0</text> </observationRange> </ referenceRange> </observation> </component> <component> <observation moodCode="EVN" classCode="OBS"> <templateId root= "06.08.840.1.457434.10.22.4.2" /> <id nullFlavor="NA" /> < code codeSystem="local" code="GR%" displayName="GRANULOCYTE %" /> <statusCode code="completed" /> <effectiveTime value="004488494440 " /> <value unit="%" xsi:type="PQ" value="40.8" /> < interpretationCode codeSystem="local" code="*" /> <referenceRange> <observationRange> <text>50-75</text> </ observationRange> </referenceRange> </observation> </ component> <component> <observation moodCode="EVN" classCode="OBS"> <templateId root="06.08.840.1.715435.02.09.22.4.2" /> <id nullFlavor="NA" /> <code codeSystem="local" code="LY#" displayName= "LYMPHOCYTE #" /> <statusCode code="completed" /> < effectiveTime value="152596911602" /> <value unit="k/cumm" xsi:type="PQ " value="3.6" /> <referenceRange> <observationRange> <text>1.0-4.0</text> </observationRange> </ referenceRange> </observation> </component> <component> <observation moodCode="EVN" classCode="OBS"> <templateId root= "06.08.840.1.429455.10.22.4.2" /> <id nullFlavor="NA" /> < code codeSystem="local" code="LY%" displayName="LYMPHOCYTE %" /> <statusCode code="completed" /> <effectiveTime value="458639444818" /> <value unit="%" xsi:type="PQ" value="47.6" /> < interpretationCode codeSystem="local" code="*" /> <referenceRange> <observationRange> <text>20-30</text> </ observationRange> </referenceRange> </observation> </ component> <component> <observation moodCode="EVN" classCode="OBS"> <templateId root="216.840.1.964724.10..4.2" /> <id nullFlavor="NA" /> <code codeSystem="local" code="MCH" displayName= "MEAN CELL HGB" /> <statusCode code="completed" /> < effectiveTime value="658138361781" /> <value unit="pg" xsi:type="PQ" value="33.9" /> <interpretationCode codeSystem="local" code="*" /> <referenceRange> <observationRange> <text>27.0- 33.0</text> </observationRange> </referenceRange> </ observation> </component> <component> <observation moodCode= "EVN" classCode="OBS"> <templateId root="216.840.1.686400.02.09.22.4.2 " /> <id nullFlavor="NA" /> <code codeSystem="local" code= "MCHC" displayName="MEAN CELL HGB CONCENTRATION" /> <statusCode code= "completed" /> <effectiveTime value="970310463402" /> <value unit="g/dL" xsi:type="PQ" value="32.5" /> <referenceRange> < observationRange> <text>32.0-37.0</text> </ observationRange> </referenceRange> </observation> </ component> <component> <observation moodCode="EVN" classCode="OBS"> <templateId root="216.840.1.798773.02.09.224.2" /> <id nullFlavor="NA" /> <code codeSystem="local" code="MCV" displayName= "MEAN CELL VOLUME" /> <statusCode code="completed" /> < effectiveTime value="441167461014" /> <value unit="fl" xsi:type="PQ" value="104.1" /> <interpretationCode codeSystem="local" code="*" /> <referenceRange> <observationRange> <text>80.0- 100.0</text> </observationRange> </referenceRange> </ observation> </component> <component> <observation moodCode= "EVN" classCode="OBS"> <templateId root="216.840.1.130322.02.09.224.2 " /> <id nullFlavor="NA" /> <code codeSystem="local" code="MO# " displayName="MONOCYTE #" /> <statusCode code="completed" /> <effectiveTime value="" /> <value unit="k/cumm" xsi:type= "PQ" value="0.8" /> <referenceRange> <observationRange> <text>0.1-1.0</text> </observationRange> </ referenceRange> </observation> </component> <component> <observation moodCode="EVN" classCode="OBS"> <templateId root= "216.840.1.952170.02.09.224.2" /> <id nullFlavor="NA" /> < code codeSystem="local" code="MO%" displayName="MONOCYTE %" /> <statusCode code="completed" /> <effectiveTime value="855051393957" /> <value unit="%" xsi:type="PQ" value="9.9" /> < interpretationCode codeSystem="local" code="*" /> <referenceRange> <observationRange> <text>4-6</text> </ observationRange> </referenceRange> </observation> </ component> <component> <observation moodCode="EVN" classCode="OBS"> <templateId root="16.840.1.298665.10.20.22.4.2" /> <id nullFlavor="NA" /> <code codeSystem="local" code="RBC" displayName=" RED BLOOD CELL" /> <statusCode code="completed" /> < effectiveTime value="232544167380" /> <value unit="m/cumm" xsi:type="PQ " value="3.63" /> <interpretationCode codeSystem="local" code="*" /> <referenceRange> <observationRange> <text>4.00- 6.00</text> </observationRange> </referenceRange> </ observation> </component> <component> <observation moodCode= "EVN" classCode="OBS"> <templateId root="840.1.826106.10..22.4.2 " /> <id nullFlavor="NA" /> <code codeSystem="local" code="RDW " displayName="RED CELL DISTRIBUTION WIDTH" /> <statusCode code= "completed" /> <effectiveTime value="094405830820" /> <value unit="%" xsi:type="PQ" value="12.4" /> <referenceRange> <observationRange> <text>11.0-15.6</text> </ observationRange> </referenceRange> </observation> </ component> <component> <observation moodCode="EVN" classCode="OBS"> <templateId root="16.840.1.085432.10.20.22.4.2" /> <id nullFlavor="NA" /> <code codeSystem="local" code="WBC" displayName= "WHITE BLOOD CELL" /> <statusCode code="completed" /> < effectiveTime value="126153779087" /> <value unit="k/cumm" xsi:type="PQ " value="7.7" /> <referenceRange> <observationRange> <text>5.0-10.0</text> </observationRange> </ referenceRange> </observation> </component> <component> <observation moodCode="EVN" classCode="OBS"> <templateId root= "216.840.1.215153.10.20.22.4.2" /> <id nullFlavor="NA" /> < code codeSystem="local" code="HGBT" displayName="HEMOGLOBIN" /> < statusCode code="completed" /> <effectiveTime value="101951771555" /> <value unit="gm/dL" xsi:type="PQ" value="12.3" /> < referenceRange> <observationRange> <text>12.0-16.0</text > </observationRange> </referenceRange> </observation > </component> <component> <observation moodCode="EVN" classCode="OBS"> <templateId root="216.840.1.011820.10.20.22.4.2" /> <id nullFlavor="NA" /> <code codeSystem="local" code="HCTT" displayName="HEMATOCRIT" /> <statusCode code="completed" /> < effectiveTime value="421228429378" /> <value unit="%" xsi:type="PQ " value="37.8" /> <referenceRange> <observationRange> <text>37.0-47.0</text> </observationRange> </ referenceRange> </observation> </component> <component> <observation moodCode="EVN" classCode="OBS"> <templateId root= "216.840.1.087719.10..22.4.2" /> <id nullFlavor="NA" /> < code codeSystem="local" code="PLTT" displayName="PLATELET COUNT" /> < statusCode code="completed" /> <effectiveTime value="[id number]" /> <value unit="k/cumm" xsi:type="PQ" value="334" /> < referenceRange> <observationRange> <text>150-450</text> </observationRange> </referenceRange> </observation > </component> </organizer> </entry> <entry> <organizer moodCode= "EVN" classCode="BATTERY"> <templateId root="216.840.1.556899.10...4.1 " /> <id nullFlavor="NA" /> <code codeSystem="local" code="DIMER" displayName="D-DIMER QUANT" /> <statusCode code="completed" /> < component> <observation moodCode="EVN" classCode="OBS"> < templateId root="216.840.1.613031.10..22.4.2" /> <id nullFlavor="NA " /> <code codeSystem="local" code="DIMER" displayName="D-DIMER QUANT" /> <statusCode code="completed" /> <effectiveTime value= "354735890947" /> <value unit="ng/mL" xsi:type="PQ" value="308" /> <referenceRange> <observationRange> <text>< 500 </text> </observationRange> </referenceRange> </ observation> </component> </organizer> </entry> <entry> <organizer moodCode="EVN" classCode="BATTERY"> <templateId root= "216.840.1.937311.10...4.1" /> <id nullFlavor="NA" /> <code codeSystem="local" code="METABC" displayName="METABOLIC PANEL, COMPREHN" /> <statusCode code="completed" /> <component> <observation moodCode= "EVN" classCode="OBS"> <templateId root="06.08.840.1.736812.10.4.2 " /> <id nullFlavor="NA" /> <code codeSystem="local" code="K" displayName="POTASSIUM" /> <statusCode code="completed" /> < effectiveTime value="" /> <value unit="mmol/L" xsi:type="PQ " value="4.4" /> <referenceRange> <observationRange> <text>3.5-5.3</text> </observationRange> </ referenceRange> </observation> </component> <component> <observation moodCode="EVN" classCode="OBS"> <templateId root= "840.1.196037.02.09.224.2" /> <id nullFlavor="NA" /> < code codeSystem="local" code="eGFR" displayName="EST GFR (MDRD)" /> < statusCode code="completed" /> <effectiveTime value="" /> <value unit="mL/min" xsi:type="PQ" value="> 60" /> < referenceRange> <observationRange> <text>> 59</text> </observationRange> </referenceRange> </observation > </component> <component> <observation moodCode="EVN" classCode="OBS"> <templateId root="840.1.254653.02.09.22.4.2" /> <id nullFlavor="NA" /> <code codeSystem="local" code="GAP" displayName="ANION GAP" /> <statusCode code="completed" /> < effectiveTime value="" /> <value unit="mmol/L" xsi:type="PQ " value="9" /> <referenceRange> <observationRange> <text>5-15</text> </observationRange> </referenceRange > </observation> </component> <component> <observation moodCode="EVN" classCode="OBS"> <templateId root= "216.840.1.799315.10..4.2" /> <id nullFlavor="NA" /> < code codeSystem="local" code="eCrCl" displayName="EST CrCl (CG)" /> < statusCode code="completed" /> <effectiveTime value="" /> <value unit="mL/min" xsi:type="PQ" value="> 60" /> < referenceRange> <observationRange> <text>> 59</text> </observationRange> </referenceRange> </observation > </component> <component> <observation moodCode="EVN" classCode="OBS"> <templateId root="216.840.1.899571...4.2" /> <id nullFlavor="NA" /> <code codeSystem="local" code="GLU" displayName="GLUCOSE" /> <statusCode code="completed" /> < effectiveTime value="" /> <value unit="mg/dL" xsi:type="PQ " value="101" /> <interpretationCode codeSystem="local" code="*" /> <referenceRange> <observationRange> <text>70-99</ text> </observationRange> </referenceRange> </ observation> </component> <component> <observation moodCode= "EVN" classCode="OBS"> <templateId root="216.840.1.240399.02.09.22.4.2 " /> <id nullFlavor="NA" /> <code codeSystem="local" code="CA " displayName="CALCIUM" /> <statusCode code="completed" /> < effectiveTime value="" /> <value unit="mg/dL" xsi:type="PQ " value="9.2" /> <referenceRange> <observationRange> <text>8.5-10.1</text> </observationRange> </ referenceRange> </observation> </component> <component> <observation moodCode="EVN" classCode="OBS"> <templateId root= "216.840.1.127287.02.09.22.4.2" /> <id nullFlavor="NA" /> < code codeSystem="local" code="BUN" displayName="BLOOD UREA NITROGEN" /> <statusCode code="completed" /> <effectiveTime value="" / > <value unit="mg/dL" xsi:type="PQ" value="15" /> < referenceRange> <observationRange> <text>7-20</text> </observationRange> </referenceRange> </observation> </component> <component> <observation moodCode="EVN" classCode= "OBS"> <templateId root="2.16.840.1.142836.02.09.22.4.2" /> < id nullFlavor="NA" /> <code codeSystem="local" code="CREAT" displayName ="CREATININE" /> <statusCode code="completed" /> < effectiveTime value="" /> <value unit="mg/dL" xsi:type="PQ " value="0.7" /> <referenceRange> <observationRange> <text>0.6-1.0</text> </observationRange> </ referenceRange> </observation> </component> <component> <observation moodCode="EVN" classCode="OBS"> <templateId root= "216.840.1.475265.10..22.4.2" /> <id nullFlavor="NA" /> < code codeSystem="local" code="NA" displayName="SODIUM" /> <statusCode code="completed" /> <effectiveTime value="" /> < value unit="mmol/L" xsi:type="PQ" value="143" /> <referenceRange> <observationRange> <text>135-148</text> </ observationRange> </referenceRange> </observation> </ component> <component> <observation moodCode="EVN" classCode="OBS"> <templateId root="216.840.1.351602.10...4.2" /> <id nullFlavor="NA" /> <code codeSystem="local" code="CL" displayName= "CHLORIDE" /> <statusCode code="completed" /> <effectiveTime value="" /> <value unit="mmol/L" xsi:type="PQ" value="109" /> <referenceRange> <observationRange> <text>98 -110</text> </observationRange> </referenceRange> </ observation> </component> <component> <observation moodCode= "EVN" classCode="OBS"> <templateId root="16.840.1.971801.10..22.4.2 " /> <id nullFlavor="NA" /> <code codeSystem="local" code="AST " displayName="AST/SGOT" /> <statusCode code="completed" /> < effectiveTime value="" /> <value unit="Units/L" xsi:type= "PQ" value="12" /> <referenceRange> <observationRange> <text>10-37</text> </observationRange> </ referenceRange> </observation> </component> <component> <observation moodCode="EVN" classCode="OBS"> <templateId root= "06.08.840.1.943225.10.4.2" /> <id nullFlavor="NA" /> < code codeSystem="local" code="ALT" displayName="ALT/SGPT" /> < statusCode code="completed" /> <effectiveTime value="" /> <value unit="Units/L" xsi:type="PQ" value="20" /> < referenceRange> <observationRange> <text>< 66</text> </observationRange> </referenceRange> </observation > </component> <component> <observation moodCode="EVN" classCode="OBS"> <templateId root="06.08.840.1.337673.02.09.22.4.2" /> <id nullFlavor="NA" /> <code codeSystem="local" code="CO2" displayName="CARBON DIOXIDE" /> <statusCode code="completed" /> <effectiveTime value="" /> <value unit="mmol/L" xsi:type ="PQ" value="25" /> <referenceRange> <observationRange> <text>21-32</text> </observationRange> </ referenceRange> </observation> </component> <component> <observation moodCode="EVN" classCode="OBS"> <templateId root= "06.08.840.1.852198.10.4.2" /> <id nullFlavor="NA" /> < code codeSystem="local" code="TP" displayName="TOTAL PROTEIN" /> < statusCode code="completed" /> <effectiveTime value="" /> <value unit="gm/dL" xsi:type="PQ" value="7.7" /> < referenceRange> <observationRange> <text>6.4-8.2</text> </observationRange> </referenceRange> </observation > </component> <component> <observation moodCode="EVN" classCode="OBS"> <templateId root="06.08.840.1.540646.10.20.22.4.2" /> <id nullFlavor="NA" /> <code codeSystem="local" code="ALB" displayName="ALBUMIN" /> <statusCode code="completed" /> < effectiveTime value="" /> <value unit="gm/dL" xsi:type="PQ " value="4.0" /> <referenceRange> <observationRange> <text>3.4-5.0</text> </observationRange> </ referenceRange> </observation> </component> <component> <observation moodCode="EVN" classCode="OBS"> <templateId root= "840.1.942093.10.22.4.2" /> <id nullFlavor="NA" /> < code codeSystem="local" code="BILTOT" displayName="BILI TOTAL" /> < statusCode code="completed" /> <effectiveTime value="688805157899" /> <value unit="mg/dL" xsi:type="PQ" value="0.2" /> < referenceRange> <observationRange> <text>0.0-1.0</text> </observationRange> </referenceRange> </observation > </component> <component> <observation moodCode="EVN" classCode="OBS"> <templateId root="06.08.840.1.902518.10.20.22.4.2" /> <id nullFlavor="NA" /> <code codeSystem="local" code="ALKP" displayName="ALKALINE PHOSPHATASE TOTAL" /> <statusCode code="completed " /> <effectiveTime value="896278449550" /> <value unit="IU/L " xsi:type="PQ" value="63" /> <referenceRange> < observationRange> <text>45-117</text> </observationRange > </referenceRange> </observation> </component> </ organizer> </entry> <entry> <organizer moodCode="EVN" classCode="BATTERY"> <templateId root="2.16.840.1.754215.10.20.22.4.1" /> <id nullFlavor= "NA" /> <code codeSystem="local" code="PREGN" displayName=" Screen , Urine NPT" /> <statusCode code="completed" /> <component> < observation moodCode="EVN" classCode="OBS"> <templateId root= "2.16.840.1.611511.10..22.4.2" /> <id nullFlavor="NA" /> < code codeSystem="local" code="PREGN" displayName=" Screen, Urine NPT" / > <statusCode code="completed" /> <effectiveTime value= "640971050326" /> <value unit="NA" xsi:type="PQ" value="Negative" /> <referenceRange> <observationRange> <text /> </observationRange> </referenceRange> </observation> </component> </organizer> </entry> <entry> <organizer moodCode="EVN " classCode="BATTERY"> <templateId root="2.16.840.1.793051.10.20.22.4.1" / > <id nullFlavor="NA" /> <code codeSystem="local" code="CBCD" displayName="CBC W/DIFF" /> <statusCode code="completed" /> <component > <observation moodCode="EVN" classCode="OBS"> <templateId root= "16.840.1.982707.10..4.2" /> <id nullFlavor="NA" /> < code codeSystem="local" code="BA#" displayName="BASOPHIL #" /> < statusCode code="completed" /> <effectiveTime value="163075444654" /> <value unit="k/cumm" xsi:type="PQ" value="0.0" /> < referenceRange> <observationRange> <text>0.0-0.2</text> </observationRange> </referenceRange> </observation > </component> <component> <observation moodCode="EVN" classCode="OBS"> <templateId root="06.08.840.1.079229.02.09.22.4.2" /> <id nullFlavor="NA" /> <code codeSystem="local" code="BA% " displayName="BASOPHIL %" /> <statusCode code="completed" /> <effectiveTime value="263151870633" /> <value unit="%" xsi: type="PQ" value="0.1" /> <referenceRange> <observationRange > <text>0-1</text> </observationRange> </ referenceRange> </observation> </component> <component> <observation moodCode="EVN" classCode="OBS"> <templateId root= "06.08.840.1.315512.10..4.2" /> <id nullFlavor="NA" /> < code codeSystem="local" code="CBCCOM" displayName="COMMENT" /> < statusCode code="completed" /> <effectiveTime value="127342567137" /> <value unit="" xsi:type="PQ" value="REVIEWED" /> < referenceRange> <observationRange> <text /> < /observationRange> </referenceRange> </observation> </ component> <component> <observation moodCode="EVN" classCode="OBS"> <templateId root="06.08.840.1.053350.10.4.2" /> <id nullFlavor="NA" /> <code codeSystem="local" code="EO#" displayName= "EOSINOPHIL #" /> <statusCode code="completed" /> < effectiveTime value="324017234481" /> <value unit="k/cumm" xsi:type="PQ " value="0.0" /> <interpretationCode codeSystem="local" code="*" /> <referenceRange> <observationRange> <text>0.1-0.5 </text> </observationRange> </referenceRange> </ observation> </component> <component> <observation moodCode= "EVN" classCode="OBS"> <templateId root="06.08.840.1.919542.10.4.2 " /> <id nullFlavor="NA" /> <code codeSystem="local" code="EO& #37;" displayName="EOSINOPHIL %" /> <statusCode code="completed" / > <effectiveTime value="664625104054" /> <value unit="%" xsi:type="PQ" value="0.0" /> <interpretationCode codeSystem="local" code="*" /> <referenceRange> <observationRange> <text>2-4</text> </observationRange> </referenceRange> </observation> </component> <component> <observation moodCode="EVN" classCode="OBS"> <templateId root= "06.08.840.1.897140.10..4.2" /> <id nullFlavor="NA" /> < code codeSystem="local" code="GR#" displayName="GRANULOCYTE #" /> < statusCode code="completed" /> <effectiveTime value="054689992340" /> <value unit="k/cumm" xsi:type="PQ" value="7.5" /> < referenceRange> <observationRange> <text>2.0-9.0</text> </observationRange> </referenceRange> </observation > </component> <component> <observation moodCode="EVN" classCode="OBS"> <templateId root="216.840.1.621454.10.20.22.4.2" /> <id nullFlavor="NA" /> <code codeSystem="local" code="GR% " displayName="GRANULOCYTE %" /> <statusCode code="completed" /> <effectiveTime value="771272486962" /> <value unit="%" xsi: type="PQ" value="85.1" /> <interpretationCode codeSystem="local" code= "*" /> <referenceRange> <observationRange> < text>50-75</text> </observationRange> </referenceRange> </observation> </component> <component> <observation moodCode="EVN" classCode="OBS"> <templateId root= "216.840.1.397791.10.2022.4.2" /> <id nullFlavor="NA" /> < code codeSystem="local" code="LY#" displayName="LYMPHOCYTE #" /> < statusCode code="completed" /> <effectiveTime value="283365613473" /> <value unit="k/cumm" xsi:type="PQ" value="1.1" /> < referenceRange> <observationRange> <text>1.0-4.0</text> </observationRange> </referenceRange> </observation > </component> <component> <observation moodCode="EVN" classCode="OBS"> <templateId root="06.08.840.1.031368.10.22.4.2" /> <id nullFlavor="NA" /> <code codeSystem="local" code="LY% " displayName="LYMPHOCYTE %" /> <statusCode code="completed" /> <effectiveTime value="" /> <value unit="%" xsi: type="PQ" value="13.0" /> <interpretationCode codeSystem="local" code= "*" /> <referenceRange> <observationRange> < text>20-30</text> </observationRange> </referenceRange> </observation> </component> <component> <observation moodCode="EVN" classCode="OBS"> <templateId root= "06.08.840.1.873131.10.4.2" /> <id nullFlavor="NA" /> < code codeSystem="local" code="MCH" displayName="MEAN CELL HGB" /> < statusCode code="completed" /> <effectiveTime value="" /> <value unit="pg" xsi:type="PQ" value="33.5" /> < interpretationCode codeSystem="local" code="*" /> <referenceRange> <observationRange> <text>27.0-33.0</text> </ observationRange> </referenceRange> </observation> </ component> <component> <observation moodCode="EVN" classCode="OBS"> <templateId root="06.08.840.1.904897.1022.4.2" /> <id nullFlavor="NA" /> <code codeSystem="local" code="MCHC" displayName= "MEAN CELL HGB CONCENTRATION" /> <statusCode code="completed" /> <effectiveTime value="994233219697" /> <value unit="g/dL" xsi:type= "PQ" value="32.7" /> <referenceRange> <observationRange> <text>32.0-37.0</text> </observationRange> </ referenceRange> </observation> </component> <component> <observation moodCode="EVN" classCode="OBS"> <templateId root= "06.08.840.1.123400.02.09.22.4.2" /> <id nullFlavor="NA" /> < code codeSystem="local" code="MCV" displayName="MEAN CELL VOLUME" /> < statusCode code="completed" /> <effectiveTime value="860812626356" /> <value unit="fl" xsi:type="PQ" value="102.5" /> < interpretationCode codeSystem="local" code="*" /> <referenceRange> <observationRange> <text>80.0-100.0</text> </ observationRange> </referenceRange> </observation> </ component> <component> <observation moodCode="EVN" classCode="OBS"> <templateId root="06.08.840.1.873244.02.09.22.4.2" /> <id nullFlavor="NA" /> <code codeSystem="local" code="MO#" displayName= "MONOCYTE #" /> <statusCode code="completed" /> < effectiveTime value="102840990784" /> <value unit="k/cumm" xsi:type="PQ " value="0.2" /> <referenceRange> <observationRange> <text>0.1-1.0</text> </observationRange> </ referenceRange> </observation> </component> <component> <observation moodCode="EVN" classCode="OBS"> <templateId root= "16.840.1.973286.02.09.22.4.2" /> <id nullFlavor="NA" /> < code codeSystem="local" code="MO%" displayName="MONOCYTE %" /> <statusCode code="completed" /> <effectiveTime value="514199880180" /> <value unit="%" xsi:type="PQ" value="1.8" /> < interpretationCode codeSystem="local" code="*" /> <referenceRange> <observationRange> <text>4-6</text> </ observationRange> </referenceRange> </observation> </ component> <component> <observation moodCode="EVN" classCode="OBS"> <templateId root="216.840.1.252323.02.09.224.2" /> <id nullFlavor="NA" /> <code codeSystem="local" code="RBC" displayName=" RED BLOOD CELL" /> <statusCode code="completed" /> < effectiveTime value="065897883805" /> <value unit="m/cumm" xsi:type="PQ " value="4.03" /> <referenceRange> <observationRange> <text>4.00-6.00</text> </observationRange> </ referenceRange> </observation> </component> <component> <observation moodCode="EVN" classCode="OBS"> <templateId root= "216.840.1.824769.02.09.22.4.2" /> <id nullFlavor="NA" /> < code codeSystem="local" code="RDW" displayName="RED CELL DISTRIBUTION WIDTH" /> <statusCode code="completed" /> <effectiveTime value= "937666729962" /> <value unit="%" xsi:type="PQ" value="12.7" /> <referenceRange> <observationRange> <text>11.0- 15.6</text> </observationRange> </referenceRange> </ observation> </component> <component> <observation moodCode= "EVN" classCode="OBS"> <templateId root="216.840.1.394429.10.4.2 " /> <id nullFlavor="NA" /> <code codeSystem="local" code="WBC " displayName="WHITE BLOOD CELL" /> <statusCode code="completed" /> <effectiveTime value="602378765226" /> <value unit="k/cumm" xsi: type="PQ" value="8.8" /> <referenceRange> <observationRange > <text>5.0-10.0</text> </observationRange> </ referenceRange> </observation> </component> <component> <observation moodCode="EVN" classCode="OBS"> <templateId root= "06.08.840.1.311625.02.09.224.2" /> <id nullFlavor="NA" /> < code codeSystem="local" code="HGBT" displayName="HEMOGLOBIN" /> < statusCode code="completed" /> <effectiveTime value="732357954832" /> <value unit="gm/dL" xsi:type="PQ" value="13.5" /> < referenceRange> <observationRange> <text>12.0-16.0</text > </observationRange> </referenceRange> </observation > </component> <component> <observation moodCode="EVN" classCode="OBS"> <templateId root="16.840.1.505450.02.09.22.4.2" /> <id nullFlavor="NA" /> <code codeSystem="local" code="HCTT" displayName="HEMATOCRIT" /> <statusCode code="completed" /> < effectiveTime value="799293818509" /> <value unit="%" xsi:type="PQ " value="41.3" /> <referenceRange> <observationRange> <text>37.0-47.0</text> </observationRange> </ referenceRange> </observation> </component> <component> <observation moodCode="EVN" classCode="OBS"> <templateId root= "840.1.496233.02.09.22.4.2" /> <id nullFlavor="NA" /> < code codeSystem="local" code="PLTT" displayName="PLATELET COUNT" /> < statusCode code="completed" /> <effectiveTime value="449031127946" /> <value unit="k/cumm" xsi:type="PQ" value="490" /> < interpretationCode codeSystem="local" code="*" /> <referenceRange> <observationRange> <text>150-450</text> </ observationRange> </referenceRange> </observation> </ component> </organizer> </entry> <entry> <organizer moodCode="EVN" classCode="BATTERY"> <templateId root="840.1.813157.02.09.22.4.1" /> <id nullFlavor="NA" /> <code codeSystem="local" code="METABC" displayName="METABOLIC PANEL, COMPREHN" /> <statusCode code="completed" /> <component> <observation moodCode="EVN" classCode="OBS"> < templateId root="840.1.140838.02.09.22.4.2" /> <id nullFlavor="NA " /> <code codeSystem="local" code="K" displayName="POTASSIUM" /> <statusCode code="completed" /> <effectiveTime value="228355716768 " /> <value unit="mmol/L" xsi:type="PQ" value="3.7" /> < referenceRange> <observationRange> <text>3.5-5.3</text> </observationRange> </referenceRange> </observation > </component> <component> <observation moodCode="EVN" classCode="OBS"> <templateId root="06.08.840.1.782832.10...4.2" /> <id nullFlavor="NA" /> <code codeSystem="local" code="eGFR" displayName="EST GFR (MDRD)" /> <statusCode code="completed" /> <effectiveTime value="402999091121" /> <value unit="mL/min" xsi:type ="PQ" value="> 60" /> <referenceRange> <observationRange > <text>> 59</text> </observationRange> </ referenceRange> </observation> </component> <component> <observation moodCode="EVN" classCode="OBS"> <templateId root= "06.08.840.1.090789.10...4.2" /> <id nullFlavor="NA" /> < code codeSystem="local" code="GAP" displayName="ANION GAP" /> < statusCode code="completed" /> <effectiveTime value="827830721199" /> <value unit="mmol/L" xsi:type="PQ" value="13" /> < referenceRange> <observationRange> <text>5-15</text> </observationRange> </referenceRange> </observation> </component> <component> <observation moodCode="EVN" classCode= "OBS"> <templateId root="06.08.840.1.332624.10.20.22.4.2" /> < id nullFlavor="NA" /> <code codeSystem="local" code="eCrCl" displayName ="EST CrCl (CG)" /> <statusCode code="completed" /> < effectiveTime value="581784970847" /> <value unit="mL/min" xsi:type="PQ " value="> 60" /> <referenceRange> <observationRange> <text>> 59</text> </observationRange> </ referenceRange> </observation> </component> <component> <observation moodCode="EVN" classCode="OBS"> <templateId root= "06.08.840.1.725604.10.20.22.4.2" /> <id nullFlavor="NA" /> < code codeSystem="local" code="GLU" displayName="GLUCOSE" /> < statusCode code="completed" /> <effectiveTime value="314201121745" /> <value unit="mg/dL" xsi:type="PQ" value="125" /> < interpretationCode codeSystem="local" code="*" /> <referenceRange> <observationRange> <text>70-99</text> </ observationRange> </referenceRange> </observation> </ component> <component> <observation moodCode="EVN" classCode="OBS"> <templateId root="16.840.1.589412.10.20.22.4.2" /> <id nullFlavor="NA" /> <code codeSystem="local" code="CA" displayName= "CALCIUM" /> <statusCode code="completed" /> <effectiveTime value="346096740615" /> <value unit="mg/dL" xsi:type="PQ" value="9.6" / > <referenceRange> <observationRange> <text>8.5 -10.1</text> </observationRange> </referenceRange> </ observation> </component> <component> <observation moodCode= "EVN" classCode="OBS"> <templateId root="06.08.840.1.725649.02.09.22.4.2 " /> <id nullFlavor="NA" /> <code codeSystem="local" code="BUN " displayName="BLOOD UREA NITROGEN" /> <statusCode code="completed" /> <effectiveTime value="401970105811" /> <value unit="mg/dL" xsi:type="PQ" value="7" /> <referenceRange> < observationRange> <text>7-20</text> </observationRange> </referenceRange> </observation> </component> < component> <observation moodCode="EVN" classCode="OBS"> < templateId root="2.16.840.1.896765.02.09.22.4.2" /> <id nullFlavor="NA " /> <code codeSystem="local" code="CREAT" displayName="CREATININE" /> <statusCode code="completed" /> <effectiveTime value= "134982575405" /> <value unit="mg/dL" xsi:type="PQ" value="0.7" /> <referenceRange> <observationRange> <text>0.6-1.0< /text> </observationRange> </referenceRange> </ observation> </component> <component> <observation moodCode= "EVN" classCode="OBS"> <templateId root="2.16.840.1.789077.02.09.22.4.2 " /> <id nullFlavor="NA" /> <code codeSystem="local" code="NA " displayName="SODIUM" /> <statusCode code="completed" /> < effectiveTime value="648692662468" /> <value unit="mmol/L" xsi:type="PQ " value="139" /> <referenceRange> <observationRange> <text>135-148</text> </observationRange> </ referenceRange> </observation> </component> <component> <observation moodCode="EVN" classCode="OBS"> <templateId root= "216.840.1.058805.10..22.4.2" /> <id nullFlavor="NA" /> < code codeSystem="local" code="CL" displayName="CHLORIDE" /> < statusCode code="completed" /> <effectiveTime value="742893072992" /> <value unit="mmol/L" xsi:type="PQ" value="103" /> < referenceRange> <observationRange> <text>98-110</text> </observationRange> </referenceRange> </observation> </component> <component> <observation moodCode="EVN" classCode ="OBS"> <templateId root="216.840.1.416091.10...4.2" /> < id nullFlavor="NA" /> <code codeSystem="local" code="AST" displayName= "AST/SGOT" /> <statusCode code="completed" /> <effectiveTime value="984130601216" /> <value unit="Units/L" xsi:type="PQ" value="16" /> <referenceRange> <observationRange> <text>10 -37</text> </observationRange> </referenceRange> </ observation> </component> <component> <observation moodCode= "EVN" classCode="OBS"> <templateId root="16.840.1.581419.10.20.22.4.2 " /> <id nullFlavor="NA" /> <code codeSystem="local" code="ALT " displayName="ALT/SGPT" /> <statusCode code="completed" /> < effectiveTime value="890501463064" /> <value unit="Units/L" xsi:type= "PQ" value="18" /> <referenceRange> <observationRange> <text>< 66</text> </observationRange> </ referenceRange> </observation> </component> <component> <observation moodCode="EVN" classCode="OBS"> <templateId root= "16.840.1.585790.10.4.2" /> <id nullFlavor="NA" /> < code codeSystem="local" code="CO2" displayName="CARBON DIOXIDE" /> < statusCode code="completed" /> <effectiveTime value="055835920233" /> <value unit="mmol/L" xsi:type="PQ" value="23" /> < referenceRange> <observationRange> <text>21-32</text> </observationRange> </referenceRange> </observation> </component> <component> <observation moodCode="EVN" classCode= "OBS"> <templateId root="06.08.840.1.195382.02.09.224.2" /> < id nullFlavor="NA" /> <code codeSystem="local" code="TP" displayName= "TOTAL PROTEIN" /> <statusCode code="completed" /> < effectiveTime value="751345446979" /> <value unit="gm/dL" xsi:type="PQ " value="8.6" /> <interpretationCode codeSystem="local" code="*" /> <referenceRange> <observationRange> <text>6.4-8.2 </text> </observationRange> </referenceRange> </ observation> </component> <component> <observation moodCode= "EVN" classCode="OBS"> <templateId root="06.08.840.1.564881.02.09.22.4.2 " /> <id nullFlavor="NA" /> <code codeSystem="local" code="ALB " displayName="ALBUMIN" /> <statusCode code="completed" /> < effectiveTime value="831512577309" /> <value unit="gm/dL" xsi:type="PQ " value="4.2" /> <referenceRange> <observationRange> <text>3.4-5.0</text> </observationRange> </ referenceRange> </observation> </component> <component> <observation moodCode="EVN" classCode="OBS"> <templateId root= "2.16.840.1.343543.10...4.2" /> <id nullFlavor="NA" /> < code codeSystem="local" code="BILTOT" displayName="BILI TOTAL" /> < statusCode code="completed" /> <effectiveTime value="596716310222" /> <value unit="mg/dL" xsi:type="PQ" value="0.3" /> < referenceRange> <observationRange> <text>0.0-1.0</text> </observationRange> </referenceRange> </observation > </component> <component> <observation moodCode="EVN" classCode="OBS"> <templateId root="2.16.840.1.173924.10...4.2" /> <id nullFlavor="NA" /> <code codeSystem="local" code="ALKP" displayName="ALKALINE PHOSPHATASE TOTAL" /> <statusCode code="completed " /> <effectiveTime value="959348657097" /> <value unit="IU/L " xsi:type="PQ" value="62" /> <referenceRange> < observationRange> <text>45-117</text> </observationRange > </referenceRange> </observation> </component> </ organizer> </entry> <entry> <organizer moodCode="EVN" classCode="BATTERY"> <templateId root="2.16.840.1.894761.10..4.1" /> <id nullFlavor= "NA" /> <code codeSystem="local" code="LIP" displayName="LIPASE" /> < statusCode code="completed" /> <component> <observation moodCode= "EVN" classCode="OBS"> <templateId root="16.840.1.165637.10..4.2 " /> <id nullFlavor="NA" /> <code codeSystem="local" code="LIP " displayName="LIPASE" /> <statusCode code="completed" /> < effectiveTime value="267320790459" /> <value unit="Units/L" xsi:type= "PQ" value="97" /> <referenceRange> <observationRange> <text>73-393</text> </observationRange> </ referenceRange> </observation> </component> </organizer> </entry > <entry> <organizer moodCode="EVN" classCode="BATTERY"> <templateId root="06.08.840.1.606292.02.09.22.4.1" /> <id nullFlavor="NA" /> <code codeSystem="local" code="PREG" displayName=" TEST, SERUM" /> < statusCode code="completed" /> <component> <observation moodCode= "EVN" classCode="OBS"> <templateId root="06.08.840.1.633945.10.4.2 " /> <id nullFlavor="NA" /> <code codeSystem="local" code= "PREG" displayName=" TEST, SERUM" /> <statusCode code= "completed" /> <effectiveTime value="650650937274" /> <value unit="" xsi:type="PQ" value="NEGATIVE" /> <referenceRange> < observationRange> <text>NEGATIVE</text> </ observationRange> </referenceRange> </observation> </ component> </organizer> </entry> <entry> <organizer moodCode="EVN" classCode="BATTERY"> <templateId root="16.840.1.023154.10...4.1" /> <id nullFlavor="NA" /> <code codeSystem="local" code="HELICOSCR" displayName="AB H.PYLORI SCREEN" /> <statusCode code="completed" /> < component> <observation moodCode="EVN" classCode="OBS"> < templateId root="06.08.840.1.959905.10..4.2" /> <id nullFlavor="NA " /> <code codeSystem="local" code="HELICOSCR" displayName="AB H.PYLORI SCREEN" /> <statusCode code="completed" /> < effectiveTime value="533761372996" /> <value unit="" xsi:type="PQ" value="NEGATIVE" /> <referenceRange> <observationRange> <text>NEGATIVE</text> </observationRange> </ referenceRange> </observation> </component> </organizer> </entry > <entry> <organizer moodCode="EVN" classCode="BATTERY"> <templateId root="216.840.1.776691.10..4.1" /> <id nullFlavor="NA" /> <code codeSystem="local" code="UA" displayName="URINALYSIS, ROUTINE" /> < statusCode code="completed" /> <component> <observation moodCode= "EVN" classCode="OBS"> <templateId root="16.840.1.873991.10..4.2 " /> <id nullFlavor="NA" /> <code codeSystem="local" code= "LEUESU" displayName="UA LEUKOCYTE ESTERASE DIPSTICK" /> <statusCode code="completed" /> <effectiveTime value="610445372631" /> < value unit="" xsi:type="PQ" value="NEGATIVE" /> <referenceRange> <observationRange> <text>NEGATIVE</text> </ observationRange> </referenceRange> </observation> </ component> <component> <observation moodCode="EVN" classCode="OBS"> <templateId root="06.08.840.1.814664.02.09.22.4.2" /> <id nullFlavor="NA" /> <code codeSystem="local" code="NITRIU" displayName= "UA NITRITE DIPSTICK" /> <statusCode code="completed" /> < effectiveTime value="318311520465" /> <value unit="" xsi:type="PQ" value="NEGATIVE" /> <referenceRange> <observationRange> <text>NEGATIVE</text> </observationRange> </ referenceRange> </observation> </component> <component> <observation moodCode="EVN" classCode="OBS"> <templateId root= "06.08.840.1.146918.02.09.22.4.2" /> <id nullFlavor="NA" /> < code codeSystem="local" code="PROTEIU" displayName="UA PROTEIN DIPSTICK" /> <statusCode code="completed" /> <effectiveTime value= "159742271495" /> <value unit="" xsi:type="PQ" value="NEGATIVE" /> <referenceRange> <observationRange> <text>NEGATIVE </text> </observationRange> </referenceRange> </ observation> </component> <component> <observation moodCode= "EVN" classCode="OBS"> <templateId root="06.08.840.1.176031.02.09.22.4.2 " /> <id nullFlavor="NA" /> <code codeSystem="local" code= "DGLUU" displayName="UA GLUCOSE DIPSTICK" /> <statusCode code= "completed" /> <effectiveTime value="906760470304" /> <value unit="" xsi:type="PQ" value="NEGATIVE" /> <referenceRange> < observationRange> <text>NEGATIVE</text> </ observationRange> </referenceRange> </observation> </ component> <component> <observation moodCode="EVN" classCode="OBS"> <templateId root="06.08.840.1.088238.10..4.2" /> <id nullFlavor="NA" /> <code codeSystem="local" code="KETONU" displayName= "UA KETONE DIPSTICK" /> <statusCode code="completed" /> < effectiveTime value="714687660021" /> <value unit="" xsi:type="PQ" value="NEGATIVE" /> <referenceRange> <observationRange> <text>NEGATIVE</text> </observationRange> </ referenceRange> </observation> </component> <component> <observation moodCode="EVN" classCode="OBS"> <templateId root= "06.08.840.1.782806.02.09.22.4.2" /> <id nullFlavor="NA" /> < code codeSystem="local" code="UROBILU" displayName="UA UROBILINOGEN DIPSTICK" / > <statusCode code="completed" /> <effectiveTime value= "352156275789" /> <value unit="" xsi:type="PQ" value="NORMAL" /> <referenceRange> <observationRange> <text>NORMAL</ text> </observationRange> </referenceRange> </ observation> </component> <component> <observation moodCode= "EVN" classCode="OBS"> <templateId root="06.08.840.1.249252.02.09.22.4.2 " /> <id nullFlavor="NA" /> <code codeSystem="local" code= "BILU" displayName="UA BILIRUBIN DIPSTICK" /> <statusCode code= "completed" /> <effectiveTime value="375816026319" /> <value unit="" xsi:type="PQ" value="NEGATIVE" /> <referenceRange> < observationRange> <text>NEGATIVE</text> </ observationRange> </referenceRange> </observation> </ component> <component> <observation moodCode="EVN" classCode="OBS"> <templateId root="2.16.840.1.569178.02.09.22.4.2" /> <id nullFlavor="NA" /> <code codeSystem="local" code="SPENCER" displayName="UA BLOOD DIPSTICK" /> <statusCode code="completed" /> < effectiveTime value="689871028238" /> <value unit="" xsi:type="PQ" value="1+" /> <interpretationCode codeSystem="local" code="*" /> <referenceRange> <observationRange> <text>NEGATIVE</ text> </observationRange> </referenceRange> </ observation> </component> <component> <observation moodCode= "EVN" classCode="OBS"> <templateId root="2.16.840.1.456588.02.09.22.4.2 " /> <id nullFlavor="NA" /> <code codeSystem="local" code= "SPGRU" displayName="UA SPECIFIC GRAVITY" /> <statusCode code= "completed" /> <effectiveTime value="576084668135" /> <value unit="" xsi:type="PQ" value="1.015" /> <referenceRange> < observationRange> <text>1.015-1.025</text> </ observationRange> </referenceRange> </observation> </ component> <component> <observation moodCode="EVN" classCode="OBS"> <templateId root="2.16.840.1.019621.10..22.4.2" /> <id nullFlavor="NA" /> <code codeSystem="local" code="FEROZ" displayName="UR PH" /> <statusCode code="completed" /> <effectiveTime value= "940529205861" /> <value unit="" xsi:type="PQ" value="7.0" /> <referenceRange> <observationRange> <text>5.0-7.0</text > </observationRange> </referenceRange> </observation > </component> </organizer> </entry> <entry> <organizer moodCode= "EVN" classCode="BATTERY"> <templateId root="2.16.840.1.276651.10..22.4.1 " /> <id nullFlavor="NA" /> <code codeSystem="local" code="UAMICRO" displayName="UA MICROSCOPIC" /> <statusCode code="completed" /> < component> <observation moodCode="EVN" classCode="OBS"> < templateId root="2.16.840.1.280078.10..22.4.2" /> <id nullFlavor="NA " /> <code codeSystem="local" code="BACU" displayName="UA BACTERIA" /> <statusCode code="completed" /> <effectiveTime value= "787130848061" /> <value unit="" xsi:type="PQ" value="2+" /> < interpretationCode codeSystem="local" code="*" /> <referenceRange> <observationRange> <text>NEGATIVE</text> </ observationRange> </referenceRange> </observation> </ component> <component> <observation moodCode="EVN" classCode="OBS"> <templateId root="216.840.1.440573.10..22.4.2" /> <id nullFlavor="NA" /> <code codeSystem="local" code="EPIU" displayName=" UA EPITHELIAL CELLS" /> <statusCode code="completed" /> < effectiveTime value="447513244285" /> <value unit="epi/hpf" xsi:type= "PQ" value="3+" /> <interpretationCode codeSystem="local" code="*" /> <referenceRange> <observationRange> <text>0 - 1 +</text> </observationRange> </referenceRange> </ observation> </component> <component> <observation moodCode= "EVN" classCode="OBS"> <templateId root="16.840.1.406205.10..4.2 " /> <id nullFlavor="NA" /> <code codeSystem="local" code= "RBCU" displayName="UA RBC" /> <statusCode code="completed" /> <effectiveTime value="232285316461" /> <value unit="rbc/hpf" xsi:type ="PQ" value="0-3" /> <referenceRange> <observationRange> <text>0 - 3</text> </observationRange> </ referenceRange> </observation> </component> <component> <observation moodCode="EVN" classCode="OBS"> <templateId root= "16.840.1.948566.10.22.4.2" /> <id nullFlavor="NA" /> < code codeSystem="local" code="UAVOL" displayName="UA VOLUME FOR EXAM" /> <statusCode code="completed" /> <effectiveTime value="345753949976" /> <value unit="mL" xsi:type="PQ" value="12.0" /> < referenceRange> <observationRange> <text>(12mL STD)</ text> </observationRange> </referenceRange> </ observation> </component> <component> <observation moodCode= "EVN" classCode="OBS"> <templateId root="216.840.1.906864.10..22.4.2 " /> <id nullFlavor="NA" /> <code codeSystem="local" code= "WBCU" displayName="UA WBC" /> <statusCode code="completed" /> <effectiveTime value="820279019371" /> <value unit="wbc/hpf" xsi:type ="PQ" value="0" /> <referenceRange> <observationRange> <text>0 - 5</text> </observationRange> </ referenceRange> </observation> </component> </organizer> </entry > <entry> <organizer moodCode="EVN" classCode="BATTERY"> <templateId root="216.840.1.263611.10..22.4.1" /> <id nullFlavor="NA" /> <code codeSystem="local" code="51764-7" displayName="Automated blood complete blood count (hemogram) panel" /> <statusCode code="completed" /> <component > <observation moodCode="EVN" classCode="OBS"> <templateId root= "2.16.840.1.470467.10..22.4.2" /> <id nullFlavor="NA" /> < code codeSystem="local" code="6690-2" displayName="Blood leukocytes automated count (number/volume)" /> <statusCode code="completed" /> < effectiveTime value="575203927725" /> <value unit="10*3/uL" xsi:type= "PQ" value="4.9" /> <referenceRange> <observationRange> <text>4.3-11.0</text> </observationRange> </ referenceRange> </observation> </component> <component> <observation moodCode="EVN" classCode="OBS"> <templateId root= "216.840.1.014275.10.20.22.4.2" /> <id nullFlavor="NA" /> < code codeSystem="local" code="789-8" displayName="Blood erythrocytes automated count (number/volume)" /> <statusCode code="completed" /> < effectiveTime value="324657232495" /> <value unit="10*6/uL" xsi:type= "PQ" value="3.43" /> <interpretationCode codeSystem="local" code="" / > <referenceRange> <observationRange> <text> 4.35-5.85</text> </observationRange> </referenceRange> </observation> </component> <component> <observation moodCode="EVN" classCode="OBS"> <templateId root= "06.08.840.1.120477.10.2022.4.2" /> <id nullFlavor="NA" /> < code codeSystem="local" code="48716-4" displayName="Venous blood hemoglobin measurement (mass/volume)" /> <statusCode code="completed" /> <effectiveTime value="883971778774" /> <value unit="g/dL" xsi:type="PQ " value="11.8" /> <referenceRange> <observationRange> <text>11.5-16.0</text> </observationRange> </ referenceRange> </observation> </component> <component> <observation moodCode="EVN" classCode="OBS"> <templateId root= "216.840.1.780204.10.20.22.4.2" /> <id nullFlavor="NA" /> < code codeSystem="local" code="62364-1" displayName="Blood hematocrit (volume fraction)" /> <statusCode code="completed" /> <effectiveTime value="873218964157" /> <value unit="%" xsi:type="PQ" value="36" / > <referenceRange> <observationRange> <text>35- 52</text> </observationRange> </referenceRange> </ observation> </component> <component> <observation moodCode= "EVN" classCode="OBS"> <templateId root="2.16.840.1.456009.10.20.22.4.2 " /> <id nullFlavor="NA" /> <code codeSystem="local" code="787 -2" displayName="Automated erythrocyte mean corpuscular volume" /> < statusCode code="completed" /> <effectiveTime value="060359583439" /> <value unit="[foz_us]" xsi:type="PQ" value="104" /> < interpretationCode codeSystem="local" code="" /> <referenceRange> <observationRange> <text>80-99</text> </ observationRange> </referenceRange> </observation> </ component> <component> <observation moodCode="EVN" classCode="OBS"> <templateId root="2.16.840.1.429714.10.20.22.4.2" /> <id nullFlavor="NA" /> <code codeSystem="local" code="785-6" displayName= "Automated erythrocyte mean corpuscular hemoglobin (mass per erythrocyte)" /> <statusCode code="completed" /> <effectiveTime value= "173661087238" /> <value unit="pg" xsi:type="PQ" value="34" /> <referenceRange> <observationRange> <text>25-34</text > </observationRange> </referenceRange> </observation > </component> <component> <observation moodCode="EVN" classCode="OBS"> <templateId root="2.16.840.1.277494.10..22.4.2" /> <id nullFlavor="NA" /> <code codeSystem="local" code="786-4" displayName="Automated erythrocyte mean corpuscular hemoglobin concentration measurement (mass/volume)" /> <statusCode code="completed" /> <effectiveTime value="158620736661" /> <value unit="g/dL" xsi:type="PQ " value="33" /> <referenceRange> <observationRange> <text>32-36</text> </observationRange> </ referenceRange> </observation> </component> <component> <observation moodCode="EVN" classCode="OBS"> <templateId root= "2.16.840.1.858495.10..22.4.2" /> <id nullFlavor="NA" /> < code codeSystem="local" code="788-0" displayName="Automated erythrocyte distribution width ratio" /> <statusCode code="completed" /> < effectiveTime value="714724152204" /> <value unit="%" xsi:type="PQ " value="13.3" /> <referenceRange> <observationRange> <text>10.0-14.5</text> </observationRange> </ referenceRange> </observation> </component> <component> <observation moodCode="EVN" classCode="OBS"> <templateId root= "2.16.840.1.502378.10.20.22.4.2" /> <id nullFlavor="NA" /> < code codeSystem="local" code="777-3" displayName="Automated blood platelet count (count/volume)" /> <statusCode code="completed" /> < effectiveTime value="843486211103" /> <value unit="10*3/uL" xsi:type= "PQ" value="302" /> <referenceRange> <observationRange> <text>130-400</text> </observationRange> </ referenceRange> </observation> </component> <component> <observation moodCode="EVN" classCode="OBS"> <templateId root= "2.16.840.1.466611.10.20.22.4.2" /> <id nullFlavor="NA" /> < code codeSystem="local" code="40372-7" displayName="Automated blood platelet mean volume measurement" /> <statusCode code="completed" /> < effectiveTime value="366036654877" /> <value unit="[[facility]_]" xsi:type= "PQ" value="8.5" /> <referenceRange> <observationRange> <text>7.4-10.4</text> </observationRange> </ referenceRange> </observation> </component> </organizer> </entry > <entry> <organizer moodCode="EVN" classCode="BATTERY"> <templateId root="2.16.840.1.811203.10..22.4.1" /> <id nullFlavor="NA" /> <code codeSystem="local" code="2117-11" displayName="Serum or plasma choriogonadotropin ( test) detection" /> <statusCode code= "completed" /> <component> <observation moodCode="EVN" classCode= "OBS"> <templateId root="2.16.840.1.919066.10.20.22.4.2" /> < id nullFlavor="NA" /> <code codeSystem="local" code="2117-11" displayName="Serum or plasma choriogonadotropin ( test) detection" /> <statusCode code="completed" /> <effectiveTime value= "753457019567" /> <value unit="" xsi:type="PQ" value="NEGATIVE" /> <referenceRange> <observationRange> <text>NEGATIVE </text> </observationRange> </referenceRange> </ observation> </component> </organizer> </entry> <entry> <organizer moodCode="EVN" classCode="BATTERY"> <templateId root= "2.16.840.1.418621.10..22.4.1" /> <id nullFlavor="NA" /> <code codeSystem="local" code="72513-9" displayName="Liver function panel (serum or plasma alk phos, alb, total and direct bili, total protein, ALT, AST)" /> < statusCode code="completed" /> <component> <observation moodCode= "EVN" classCode="OBS"> <templateId root="216.840.1.039266.10..22.4.2 " /> <id nullFlavor="NA" /> <code codeSystem="local" code= "1975" displayName="Serum or plasma total bilirubin measurement (mass/volume) " /> <statusCode code="completed" /> <effectiveTime value= "266601095845" /> <value unit="mg/dL" xsi:type="PQ" value="0.2" /> <referenceRange> <observationRange> <text>0.1-1.0< /text> </observationRange> </referenceRange> </ observation> </component> <component> <observation moodCode= "EVN" classCode="OBS"> <templateId root="2.16.840.1.822074.10..22.4.2 " /> <id nullFlavor="NA" /> <code codeSystem="local" code= "6768-6" displayName="Serum or plasma alkaline phosphatase measurement ( enzymatic activity/volume)" /> <statusCode code="completed" /> <effectiveTime value="570212397575" /> <value unit="U/L" xsi:type="PQ " value="45" /> <referenceRange> <observationRange> <text>40-136</text> </observationRange> </ referenceRange> </observation> </component> <component> <observation moodCode="EVN" classCode="OBS"> <templateId root= "2.16.840.1.229997.10..22.4.2" /> <id nullFlavor="NA" /> < code codeSystem="local" code="1919-11" displayName="Serum or plasma aspartate aminotransferase measurement (enzymatic activity/volume)" /> < statusCode code="completed" /> <effectiveTime value="561924797973" /> <value unit="U/L" xsi:type="PQ" value="19" /> <referenceRange > <observationRange> <text>5-34</text> </ observationRange> </referenceRange> </observation> </ component> <component> <observation moodCode="EVN" classCode="OBS"> <templateId root="2.16.840.1.461438.10..22.4.2" /> <id nullFlavor="NA" /> <code codeSystem="local" code="1741-09" displayName= "Serum or plasma alanine aminotransferase measurement (enzymatic activity/volume )" /> <statusCode code="completed" /> <effectiveTime value= "717221911214" /> <value unit="U/L" xsi:type="PQ" value="12" /> <referenceRange> <observationRange> <text>0-55</text > </observationRange> </referenceRange> </observation > </component> <component> <observation moodCode="EVN" classCode="OBS"> <templateId root="2.16.840.1.620488.10.20.22.4.2" /> <id nullFlavor="NA" /> <code codeSystem="local" code="2885" displayName="Serum or plasma protein measurement (mass/volume)" /> < statusCode code="completed" /> <effectiveTime value="917513716315" /> <value unit="g/dL" xsi:type="PQ" value="6.9" /> < referenceRange> <observationRange> <text>6.4-8.2</text> </observationRange> </referenceRange> </observation > </component> <component> <observation moodCode="EVN" classCode="OBS"> <templateId root="2.16.840.1.922322.10..22.4.2" /> <id nullFlavor="NA" /> <code codeSystem="local" code="1750-10" displayName="Serum or plasma albumin measurement (mass/volume)" /> < statusCode code="completed" /> <effectiveTime value="822963476818" /> <value unit="g/dL" xsi:type="PQ" value="4.3" /> < referenceRange> <observationRange> <text>3.2-4.5</text> </observationRange> </referenceRange> </observation > </component> <component> <observation moodCode="EVN" classCode="OBS"> <templateId root="2.16.840.1.666340.10.20.22.4.2" /> <id nullFlavor="NA" /> <code codeSystem="local" code="1967-10" displayName="Bilirubin direct" /> <statusCode code="completed" /> <effectiveTime value="613582423763" /> <value unit="mg/dL" xsi: type="PQ" value="<" /> <referenceRange> <observationRange > <text>0.0-0.3</text> </observationRange> </ referenceRange> </observation> </component> <component> <observation moodCode="EVN" classCode="OBS"> <templateId root= "2.16.840.1.166524.10.20.22.4.2" /> <id nullFlavor="NA" /> < code codeSystem="local" code="1971" displayName="Serum or plasma indirect bilirubin measurement (mass/volume)" /> <statusCode code="completed" / > <effectiveTime value="565844128615" /> <value unit="mg/dL" xsi:type="PQ" value="0.1" /> <referenceRange> < observationRange> <text>NRG</text> </observationRange> </referenceRange> </observation> </component> </ organizer> </entry> <entry> <organizer moodCode="EVN" classCode="BATTERY"> <templateId root="2.16.840.1.582432.10.20.22.4.1" /> <id nullFlavor= "NA" /> <code codeSystem="local" code="51826-6" displayName="Whole blood basic metabolic panel" /> <statusCode code="completed" /> <component> <observation moodCode="EVN" classCode="OBS"> <templateId root= "2.16.840.1.144396.10.20.22.4.2" /> <id nullFlavor="NA" /> < code codeSystem="local" code="2951-2" displayName="Serum or plasma sodium measurement (moles/volume)" /> <statusCode code="completed" /> <effectiveTime value="547530290865" /> <value unit="mmol/L" xsi:type= "PQ" value="137" /> <referenceRange> <observationRange> <text>135-145</text> </observationRange> </ referenceRange> </observation> </component> <component> <observation moodCode="EVN" classCode="OBS"> <templateId root= "2.16.840.1.564689.10.20.22.4.2" /> <id nullFlavor="NA" /> < code codeSystem="local" code="2823" displayName="Serum or plasma potassium measurement (moles/volume)" /> <statusCode code="completed" /> <effectiveTime value="195989457378" /> <value unit="mmol/L" xsi:type= "PQ" value="4.1" /> <referenceRange> <observationRange> <text>3.6-5.0</text> </observationRange> </ referenceRange> </observation> </component> <component> <observation moodCode="EVN" classCode="OBS"> <templateId root= "2.16.840.1.824995.10..22.4.2" /> <id nullFlavor="NA" /> < code codeSystem="local" code="" displayName="Serum or plasma chloride measurement (moles/volume)" /> <statusCode code="completed" /> <effectiveTime value="966932779441" /> <value unit="mmol/L" xsi:type= "PQ" value="106" /> <referenceRange> <observationRange> <text>98-107</text> </observationRange> </ referenceRange> </observation> </component> <component> <observation moodCode="EVN" classCode="OBS"> <templateId root= "2.16.840.1.738881.10..22.4.2" /> <id nullFlavor="NA" /> < code codeSystem="local" code="2027-12" displayName="Carbon dioxide" /> < statusCode code="completed" /> <effectiveTime value="275091384942" /> <value unit="mmol/L" xsi:type="PQ" value="22" /> < referenceRange> <observationRange> <text>21-32</text> </observationRange> </referenceRange> </observation> </component> <component> <observation moodCode="EVN" classCode= "OBS"> <templateId root="2.16.840.1.879946.10.20.22.4.2" /> < id nullFlavor="NA" /> <code codeSystem="local" code="29859-0" displayName="Serum or plasma anion gap determination (moles/volume)" /> <statusCode code="completed" /> <effectiveTime value="048933930425" / > <value unit="mmol/L" xsi:type="PQ" value="9" /> < referenceRange> <observationRange> <text>5-14</text> </observationRange> </referenceRange> </observation> </component> <component> <observation moodCode="EVN" classCode= "OBS"> <templateId root="216.840.1.886825.10..22.4.2" /> < id nullFlavor="NA" /> <code codeSystem="local" code="3094-0" displayName="Serum or plasma urea nitrogen measurement (mass/volume)" /> <statusCode code="completed" /> <effectiveTime value="111714099902" /> <value unit="mg/dL" xsi:type="PQ" value="10" /> < referenceRange> <observationRange> <text>7-18</text> </observationRange> </referenceRange> </observation> </component> <component> <observation moodCode="EVN" classCode= "OBS"> <templateId root="216.840.1.309882.10.20.22.4.2" /> < id nullFlavor="NA" /> <code codeSystem="local" code="2160-0" displayName="Serum or plasma creatinine measurement (mass/volume)" /> < statusCode code="completed" /> <effectiveTime value="205390305879" /> <value unit="mg/dL" xsi:type="PQ" value="0.65" /> < referenceRange> <observationRange> <text>0.60-1.30</text > </observationRange> </referenceRange> </observation > </component> <component> <observation moodCode="EVN" classCode="OBS"> <templateId root="2.16.840.1.136747.10.20.22.4.2" /> <id nullFlavor="NA" /> <code codeSystem="local" code="3097-3" displayName="Serum or plasma urea nitrogen/creatinine mass ratio" /> < statusCode code="completed" /> <effectiveTime value="914221516000" /> <value unit="" xsi:type="PQ" value="15" /> <referenceRange> <observationRange> <text>NRG</text> </ observationRange> </referenceRange> </observation> </ component> <component> <observation moodCode="EVN" classCode="OBS"> <templateId root="2.16.840.1.349534.10.20.22.4.2" /> <id nullFlavor="NA" /> <code codeSystem="local" code="42969-0" displayName= "Serum or plasma creatinine measurement with calculation of estimated glomerular filtration rate" /> <statusCode code="completed" /> <effectiveTime value="318896905345" /> <value unit="" xsi:type="PQ" value=">" /> <referenceRange> <observationRange> <text>NRG</text> </observationRange> </referenceRange > </observation> </component> <component> <observation moodCode="EVN" classCode="OBS"> <templateId root= "2.16.840.1.494162.10.20.22.4.2" /> <id nullFlavor="NA" /> < code codeSystem="local" code="2345-7" displayName="Serum or plasma glucose measurement (mass/volume)" /> <statusCode code="completed" /> <effectiveTime value="557452191628" /> <value unit="mg/dL" xsi:type="PQ " value="78" /> <referenceRange> <observationRange> <text>70-105</text> </observationRange> </ referenceRange> </observation> </component> <component> <observation moodCode="EVN" classCode="OBS"> <templateId root= "2.16.840.1.551441.10.20.22.4.2" /> <id nullFlavor="NA" /> < code codeSystem="local" code="43877-4" displayName="Serum or plasma calcium measurement (mass/volume)" /> <statusCode code="completed" /> <effectiveTime value="284885838181" /> <value unit="mg/dL" xsi:type="PQ " value="8.9" /> <referenceRange> <observationRange> <text>8.5-10.1</text> </observationRange> </ referenceRange> </observation> </component> </organizer> </entry > <entry> <organizer moodCode="EVN" classCode="BATTERY"> <templateId root="2.16.840.1.921716.10.20.22.4.1" /> <id nullFlavor="NA" /> <code codeSystem="local" code="5643-2" displayName="Serum or plasma ethanol measurement (mass/volume)" /> <statusCode code="completed" /> < component> <observation moodCode="EVN" classCode="OBS"> < templateId root="2.16.840.1.877736.10.20.22.4.2" /> <id nullFlavor="NA " /> <code codeSystem="local" code="5643-2" displayName="Serum or plasma ethanol measurement (mass/volume)" /> <statusCode code= "completed" /> <effectiveTime value="943450744039" /> <value unit="mg/dL" xsi:type="PQ" value="<" /> <referenceRange> <observationRange> <text><10</text> </ observationRange> </referenceRange> </observation> </ component> </organizer> </entry> <entry> <organizer moodCode="EVN" classCode="BATTERY"> <templateId root="2.16.840.1.228902.10.20.22.4.1" /> <id nullFlavor="NA" /> <code codeSystem="local" code="25994-4" displayName="Serum or plasma thyrotropin measurement by detection limit <= 0.05 miu/l (units/volume)" /> <statusCode code="completed" /> < component> <observation moodCode="EVN" classCode="OBS"> < templateId root="2.16.840.1.701308.10.20.22.4.2" /> <id nullFlavor="NA " /> <code codeSystem="local" code="90032-4" displayName="Serum or plasma thyrotropin measurement by detection limit <=0.05 miu/l (units/volume) " /> <statusCode code="completed" /> <effectiveTime value= "626719044879" /> <value unit="u[iU]/mL" xsi:type="PQ" value="2.23" /> <referenceRange> <observationRange> <text>0.35 -4.94</text> </observationRange> </referenceRange> </ observation> </component> </organizer> </entry> <entry> <organizer moodCode="EVN" classCode="BATTERY"> <templateId root= "216.840.1.145452.10..22.4.1" /> <id nullFlavor="NA" /> <code codeSystem="local" code="51610-3" displayName="Complete urinalysis with reflex to culture" /> <statusCode code="completed" /> <component> < observation moodCode="EVN" classCode="OBS"> <templateId root= "216.840.1.031177.10...4.2" /> <id nullFlavor="NA" /> < code codeSystem="local" code="5778-6" displayName="Urine color determination" / > <statusCode code="completed" /> <effectiveTime value= "869610913088" /> <value unit="" xsi:type="PQ" value="YELLOW" /> <referenceRange> <observationRange> <text>NRG</text > </observationRange> </referenceRange> </observation > </component> <component> <observation moodCode="EVN" classCode="OBS"> <templateId root="216.840.1.945954.10...4.2" /> <id nullFlavor="NA" /> <code codeSystem="local" code="86239-1 " displayName="Urine clarity determination" /> <statusCode code= "completed" /> <effectiveTime value="291116722258" /> <value unit="" xsi:type="PQ" value="CLEAR" /> <referenceRange> < observationRange> <text>NRG</text> </observationRange> </referenceRange> </observation> </component> < component> <observation moodCode="EVN" classCode="OBS"> < templateId root="16.840.1.021098.10.20.22.4.2" /> <id nullFlavor="NA " /> <code codeSystem="local" code="5803-2" displayName="Urine pH measurement by test strip" /> <statusCode code="completed" /> <effectiveTime value="053407903173" /> <value unit="" xsi:type="PQ" value="5" /> <referenceRange> <observationRange> <text>5-9</text> </observationRange> </referenceRange> </observation> </component> <component> <observation moodCode="EVN" classCode="OBS"> <templateId root= "06.08.840.1.091600.10.22.4.2" /> <id nullFlavor="NA" /> < code codeSystem="local" code="5811-5" displayName="Specific gravity of urine by test strip" /> <statusCode code="completed" /> <effectiveTime value="665417596480" /> <value unit="" xsi:type="PQ" value="1.005" /> <interpretationCode codeSystem="local" code="" /> < referenceRange> <observationRange> <text>1.016-1.022</ text> </observationRange> </referenceRange> </ observation> </component> <component> <observation moodCode= "EVN" classCode="OBS"> <templateId root="06.08.840.1.296472.10.20.22.4.2 " /> <id nullFlavor="NA" /> <code codeSystem="local" code= "06975-4" displayName="Urine protein assay by test strip, semi-quantitative" /> <statusCode code="completed" /> <effectiveTime value= "648872215823" /> <value unit="" xsi:type="PQ" value="NEGATIVE" /> <referenceRange> <observationRange> <text>NEGATIVE </text> </observationRange> </referenceRange> </ observation> </component> <component> <observation moodCode= "EVN" classCode="OBS"> <templateId root="840.1.956870.10.2022.4.2 " /> <id nullFlavor="NA" /> <code codeSystem="local" code= "69049-7" displayName="Urine glucose detection by automated test strip" /> <statusCode code="completed" /> <effectiveTime value="584412709552 " /> <value unit="" xsi:type="PQ" value="NEGATIVE" /> < referenceRange> <observationRange> <text>NEGATIVE</text > </observationRange> </referenceRange> </observation > </component> <component> <observation moodCode="EVN" classCode="OBS"> <templateId root="840.1.297408.1022.4.2" /> <id nullFlavor="NA" /> <code codeSystem="local" code="95110-8 " displayName="Erythrocytes detection in urine sediment by light microscopy" /> <statusCode code="completed" /> <effectiveTime value= "211865188598" /> <value unit="" xsi:type="PQ" value="NEGATIVE" /> <referenceRange> <observationRange> <text>NEGATIVE </text> </observationRange> </referenceRange> </ observation> </component> <component> <observation moodCode= "EVN" classCode="OBS"> <templateId root="840.1.391148.10.2022.4.2 " /> <id nullFlavor="NA" /> <code codeSystem="local" code= "99823-1" displayName="Urine ketones detection by automated test strip" /> <statusCode code="completed" /> <effectiveTime value="052437978908 " /> <value unit="" xsi:type="PQ" value="NEGATIVE" /> < referenceRange> <observationRange> <text>NEGATIVE</text > </observationRange> </referenceRange> </observation > </component> <component> <observation moodCode="EVN" classCode="OBS"> <templateId root="216.840.1.719485.10..4.2" /> <id nullFlavor="NA" /> <code codeSystem="local" code="5802-4" displayName="Urine nitrite detection by test strip" /> <statusCode code ="completed" /> <effectiveTime value="181486858254" /> <value unit="" xsi:type="PQ" value="NEGATIVE" /> <referenceRange> < observationRange> <text>NEGATIVE</text> </ observationRange> </referenceRange> </observation> </ component> <component> <observation moodCode="EVN" classCode="OBS"> <templateId root="06.08.840.1.197824.10..4.2" /> <id nullFlavor="NA" /> <code codeSystem="local" code="5770-3" displayName= "Urine total bilirubin detection by test strip" /> <statusCode code= "completed" /> <effectiveTime value="122030483857" /> <value unit="" xsi:type="PQ" value="NEGATIVE" /> <referenceRange> < observationRange> <text>NEGATIVE</text> </ observationRange> </referenceRange> </observation> </ component> <component> <observation moodCode="EVN" classCode="OBS"> <templateId root="216.840.1.560833.10..22.4.2" /> <id nullFlavor="NA" /> <code codeSystem="local" code="94977-8" displayName= "Urine urobilinogen measurement by automated test strip (mass/volume)" /> <statusCode code="completed" /> <effectiveTime value="096904421126 " /> <value unit="" xsi:type="PQ" value="NORMAL" /> < referenceRange> <observationRange> <text>NORMAL</text> </observationRange> </referenceRange> </observation> </component> <component> <observation moodCode="EVN" classCode ="OBS"> <templateId root="2.16.840.1.477907.10.20.22.4.2" /> < id nullFlavor="NA" /> <code codeSystem="local" code="5799-2" displayName="Urine leukocyte esterase detection by dipstick" /> < statusCode code="completed" /> <effectiveTime value="064015393389" /> <value unit="" xsi:type="PQ" value="NEGATIVE" /> < referenceRange> <observationRange> <text>NEGATIVE</text > </observationRange> </referenceRange> </observation > </component> <component> <observation moodCode="EVN" classCode="OBS"> <templateId root="2.16.840.1.476534.10.20.22.4.2" /> <id nullFlavor="NA" /> <code codeSystem="local" code="95911-4 " displayName="Automated urine sediment erythrocyte count by microscopy (number/ high power field)" /> <statusCode code="completed" /> < effectiveTime value="909289018765" /> <value unit="" xsi:type="PQ" value="NONE" /> <referenceRange> <observationRange> <text>NRG</text> </observationRange> </referenceRange > </observation> </component> <component> <observation moodCode="EVN" classCode="OBS"> <templateId root= "216.840.1.391973.10.20.22.4.2" /> <id nullFlavor="NA" /> < code codeSystem="local" code="5821-4" displayName="Automated urine sediment leukocyte count by microscopy (number/high power field)" /> < statusCode code="completed" /> <effectiveTime value="099212519459" /> <value unit="" xsi:type="PQ" value="RARE" /> <referenceRange> <observationRange> <text>NRG</text> </ observationRange> </referenceRange> </observation> </ component> <component> <observation moodCode="EVN" classCode="OBS"> <templateId root="16.840.1.792281.10..22.4.2" /> <id nullFlavor="NA" /> <code codeSystem="local" code="20439-4" displayName= "Bacteria detection in urine sediment by light microscopy" /> < statusCode code="completed" /> <effectiveTime value="019634274868" /> <value unit="" xsi:type="PQ" value="TRACE" /> <referenceRange > <observationRange> <text>NRG</text> </ observationRange> </referenceRange> </observation> </ component> <component> <observation moodCode="EVN" classCode="OBS"> <templateId root="16.840.1.995779.10.20.22.4.2" /> <id nullFlavor="NA" /> <code codeSystem="local" code="16417-5" displayName= "Squamous epithelial cells detection in urine sediment by light microscopy" /> <statusCode code="completed" /> <effectiveTime value= "319358598133" /> <value unit="" xsi:type="PQ" value="2-5" /> <referenceRange> <observationRange> <text>NRG</text> </observationRange> </referenceRange> </observation> </component> <component> <observation moodCode="EVN" classCode= "OBS"> <templateId root="216.840.1.327250.10.20.22.4.2" /> < id nullFlavor="NA" /> <code codeSystem="local" code="69719-3" displayName="Crystals detection in urine sediment by light microscopy" /> <statusCode code="completed" /> <effectiveTime value="051779657301 " /> <value unit="" xsi:type="PQ" value="NONE" /> < referenceRange> <observationRange> <text>NRG</text> </observationRange> </referenceRange> </observation> </component> <component> <observation moodCode="EVN" classCode= "OBS"> <templateId root="06.08.840.1.668137.10..4.2" /> < id nullFlavor="NA" /> <code codeSystem="local" code="97256-3" displayName="Casts detection in urine sediment by light microscopy" /> <statusCode code="completed" /> <effectiveTime value="438019404726" /> <value unit="" xsi:type="PQ" value="NONE" /> <referenceRange > <observationRange> <text>NRG</text> </ observationRange> </referenceRange> </observation> </ component> <component> <observation moodCode="EVN" classCode="OBS"> <templateId root="06.08.840.1.819738.10.2022.4.2" /> <id nullFlavor="NA" /> <code codeSystem="local" code="8247-9" displayName= "Mucus detection in urine sediment by light microscopy" /> <statusCode code="completed" /> <effectiveTime value="905763113654" /> < value unit="" xsi:type="PQ" value="NEGATIVE" /> <referenceRange> <observationRange> <text>NRG</text> </ observationRange> </referenceRange> </observation> </ component> <component> <observation moodCode="EVN" classCode="OBS"> <templateId root="16.840.1.793730.10.4.2" /> <id nullFlavor="NA" /> <code codeSystem="local" code="82090-7" displayName= "Complete urinalysis with reflex to culture" /> <statusCode code= "completed" /> <effectiveTime value="306419936249" /> <value unit="" xsi:type="PQ" value="NO" /> <referenceRange> < observationRange> <text>NRG</text> </observationRange> </referenceRange> </observation> </component> </ organizer> </entry> <entry> <organizer moodCode="EVN" classCode="BATTERY"> <templateId root="06.08.840.1.586135.10.4.1" /> <id nullFlavor= "NA" /> <code codeSystem="local" code="31188-0" displayName="Urine drug screening test" /> <statusCode code="completed" /> <component> <observation moodCode="EVN" classCode="OBS"> <templateId root= "16.840.1.189662.10...4.2" /> <id nullFlavor="NA" /> < code codeSystem="local" code="21319-3" displayName="Urine phencyclidine detection by screening method" /> <statusCode code="completed" /> <effectiveTime value="261528410474" /> <value unit="" xsi:type="PQ " value="NEGATIVE" /> <referenceRange> <observationRange> <text>NEGATIVE</text> </observationRange> </ referenceRange> </observation> </component> <component> <observation moodCode="EVN" classCode="OBS"> <templateId root= "16.840.1.561038.10.20.22.4.2" /> <id nullFlavor="NA" /> < code codeSystem="local" code="72966-5" displayName="Urine benzodiazepines detection by screening method" /> <statusCode code="completed" /> <effectiveTime value="832127007858" /> <value unit="" xsi:type="PQ " value="NEGATIVE" /> <referenceRange> <observationRange> <text>NEGATIVE</text> </observationRange> </ referenceRange> </observation> </component> <component> <observation moodCode="EVN" classCode="OBS"> <templateId root= "06.08.840.1.324190.10.22.4.2" /> <id nullFlavor="NA" /> < code codeSystem="local" code="3397-7" displayName="Urine cocaine detection" /> <statusCode code="completed" /> <effectiveTime value= "474306418073" /> <value unit="" xsi:type="PQ" value="NEGATIVE" /> <referenceRange> <observationRange> <text>NEGATIVE </text> </observationRange> </referenceRange> </ observation> </component> <component> <observation moodCode= "EVN" classCode="OBS"> <templateId root="06.08.840.1.593351.10.2022.4.2 " /> <id nullFlavor="NA" /> <code codeSystem="local" code= "13050-9" displayName="Urine amphetamines detection by screening method" /> <statusCode code="completed" /> <effectiveTime value= "518509515836" /> <value unit="" xsi:type="PQ" value="NEGATIVE" /> <referenceRange> <observationRange> <text>NEGATIVE </text> </observationRange> </referenceRange> </ observation> </component> <component> <observation moodCode= "EVN" classCode="OBS"> <templateId root="216.840.1.870957.10.22.4.2 " /> <id nullFlavor="NA" /> <code codeSystem="local" code= "31227-7" displayName="Urine methamphetamine detection by screening method" /> <statusCode code="completed" /> <effectiveTime value= "133913958482" /> <value unit="" xsi:type="PQ" value="NEGATIVE" /> <referenceRange> <observationRange> <text>NEGATIVE </text> </observationRange> </referenceRange> </ observation> </component> <component> <observation moodCode= "EVN" classCode="OBS"> <templateId root="06.08.840.1.952342.10.22.4.2 " /> <id nullFlavor="NA" /> <code codeSystem="local" code= "72230-6" displayName="Urine cannabinoids detection by screening method" /> <statusCode code="completed" /> <effectiveTime value= "054174530586" /> <value unit="" xsi:type="PQ" value="NEGATIVE" /> <referenceRange> <observationRange> <text>NEGATIVE </text> </observationRange> </referenceRange> </ observation> </component> <component> <observation moodCode= "EVN" classCode="OBS"> <templateId root="216.840.1.712515.10.20.22.4.2 " /> <id nullFlavor="NA" /> <code codeSystem="local" code= "75679-2" displayName="Urine opiates detection by screening method" /> <statusCode code="completed" /> <effectiveTime value="053764923400" /> <value unit="" xsi:type="PQ" value="NEGATIVE" /> < referenceRange> <observationRange> <text>NEGATIVE</text > </observationRange> </referenceRange> </observation > </component> <component> <observation moodCode="EVN" classCode="OBS"> <templateId root="2.16.840.1.109101.10.20.22.4.2" /> <id nullFlavor="NA" /> <code codeSystem="local" code="3377-9" displayName="Urine barbiturates detection" /> <statusCode code= "completed" /> <effectiveTime value="164144787179" /> <value unit="" xsi:type="PQ" value="NEGATIVE" /> <referenceRange> < observationRange> <text>NEGATIVE</text> </ observationRange> </referenceRange> </observation> </ component> <component> <observation moodCode="EVN" classCode="OBS"> <templateId root="2.16.840.1.622330.10.20.22.4.2" /> <id nullFlavor="NA" /> <code codeSystem="local" code="81212-0" displayName= "Screening urine tricyclic antidepressants detection" /> <statusCode code="completed" /> <effectiveTime value="279970065308" /> < value unit="" xsi:type="PQ" value="POSITIVE" /> <interpretationCode codeSystem="local" code="*" /> <referenceRange> < observationRange> <text>NEGATIVE</text> </ observationRange> </referenceRange> </observation> </ component> <component> <observation moodCode="EVN" classCode="OBS"> <templateId root="216.840.1.104642.10..22.4.2" /> <id nullFlavor="NA" /> <code codeSystem="local" code="84826-1" displayName= "Urine methadone detection by screening method" /> <statusCode code= "completed" /> <effectiveTime value="152728221115" /> <value unit="" xsi:type="PQ" value="NEGATIVE" /> <referenceRange> < observationRange> <text>NEGATIVE</text> </ observationRange> </referenceRange> </observation> </ component> <component> <observation moodCode="EVN" classCode="OBS"> <templateId root="16.840.1.948638.10..4.2" /> <id nullFlavor="NA" /> <code codeSystem="local" code="06468-2" displayName= "Urine oxycodone detection" /> <statusCode code="completed" /> <effectiveTime value="735207585363" /> <value unit="" xsi:type="PQ" value="NEGATIVE" /> <referenceRange> <observationRange> <text>NEGATIVE</text> </observationRange> </ referenceRange> </observation> </component> <component> <observation moodCode="EVN" classCode="OBS"> <templateId root= "06.08.840.1.061535.10..22.4.2" /> <id nullFlavor="NA" /> < code codeSystem="local" code="08441-9" displayName="Urine propoxyphene detection " /> <statusCode code="completed" /> <effectiveTime value= "545832521446" /> <value unit="" xsi:type="PQ" value="NEGATIVE" /> <referenceRange> <observationRange> <text>NEGATIVE </text> </observationRange> </referenceRange> </ observation> </component> </organizer> </entry> <entry> <organizer moodCode="EVN" classCode="BATTERY"> <templateId root= "2.16.840.1.214251.10..22.4.1" /> <id nullFlavor="NA" /> <code codeSystem="local" code="72071-0" displayName="Complete urinalysis with reflex to culture" /> <statusCode code="completed" /> <component> < observation moodCode="EVN" classCode="OBS"> <templateId root= "2.16.840.1.308135.10...4.2" /> <id nullFlavor="NA" /> < code codeSystem="local" code="5778-6" displayName="Urine color determination" / > <statusCode code="completed" /> <effectiveTime value= "911569371200" /> <value unit="" xsi:type="PQ" value="YELLOW" /> <referenceRange> <observationRange> <text>NRG</text > </observationRange> </referenceRange> </observation > </component> <component> <observation moodCode="EVN" classCode="OBS"> <templateId root="2.16.840.1.072402.10...4.2" /> <id nullFlavor="NA" /> <code codeSystem="local" code="98372-9 " displayName="Urine clarity determination" /> <statusCode code= "completed" /> <effectiveTime value="499375587659" /> <value unit="" xsi:type="PQ" value="CLEAR" /> <referenceRange> < observationRange> <text>NRG</text> </observationRange> </referenceRange> </observation> </component> < component> <observation moodCode="EVN" classCode="OBS"> < templateId root="16.840.1.014533.10.20.22.4.2" /> <id nullFlavor="NA " /> <code codeSystem="local" code="5803-2" displayName="Urine pH measurement by test strip" /> <statusCode code="completed" /> <effectiveTime value="391717782524" /> <value unit="" xsi:type="PQ" value="7" /> <referenceRange> <observationRange> <text>5-9</text> </observationRange> </referenceRange> </observation> </component> <component> <observation moodCode="EVN" classCode="OBS"> <templateId root= "06.08.840.1.448731.10.22.4.2" /> <id nullFlavor="NA" /> < code codeSystem="local" code="5811-5" displayName="Specific gravity of urine by test strip" /> <statusCode code="completed" /> <effectiveTime value="910911103171" /> <value unit="" xsi:type="PQ" value="1.010" /> <interpretationCode codeSystem="local" code="" /> < referenceRange> <observationRange> <text>1.016-1.022</ text> </observationRange> </referenceRange> </ observation> </component> <component> <observation moodCode= "EVN" classCode="OBS"> <templateId root="06.08.840.1.757243.10.20.22.4.2 " /> <id nullFlavor="NA" /> <code codeSystem="local" code= "96733-7" displayName="Urine protein assay by test strip, semi-quantitative" /> <statusCode code="completed" /> <effectiveTime value= "654133219579" /> <value unit="" xsi:type="PQ" value="NEGATIVE" /> <referenceRange> <observationRange> <text>NEGATIVE </text> </observationRange> </referenceRange> </ observation> </component> <component> <observation moodCode= "EVN" classCode="OBS"> <templateId root="06.08.840.1.428473.10.20.22.4.2 " /> <id nullFlavor="NA" /> <code codeSystem="local" code= "53785-0" displayName="Urine glucose detection by automated test strip" /> <statusCode code="completed" /> <effectiveTime value="486229438556 " /> <value unit="" xsi:type="PQ" value="NEGATIVE" /> < referenceRange> <observationRange> <text>NEGATIVE</text > </observationRange> </referenceRange> </observation > </component> <component> <observation moodCode="EVN" classCode="OBS"> <templateId root="06.08.840.1.211596.10.22.4.2" /> <id nullFlavor="NA" /> <code codeSystem="local" code="33274-3 " displayName="Erythrocytes detection in urine sediment by light microscopy" /> <statusCode code="completed" /> <effectiveTime value= "058489132765" /> <value unit="" xsi:type="PQ" value="5+" /> < interpretationCode codeSystem="local" code="*" /> <referenceRange> <observationRange> <text>NEGATIVE</text> </ observationRange> </referenceRange> </observation> </ component> <component> <observation moodCode="EVN" classCode="OBS"> <templateId root="06.08.840.1.455218.10.20.22.4.2" /> <id nullFlavor="NA" /> <code codeSystem="local" code="73013-4" displayName= "Urine ketones detection by automated test strip" /> <statusCode code= "completed" /> <effectiveTime value="762279062246" /> <value unit="" xsi:type="PQ" value="NEGATIVE" /> <referenceRange> < observationRange> <text>NEGATIVE</text> </ observationRange> </referenceRange> </observation> </ component> <component> <observation moodCode="EVN" classCode="OBS"> <templateId root="216.840.1.805394.10..22.4.2" /> <id nullFlavor="NA" /> <code codeSystem="local" code="5802-4" displayName= "Urine nitrite detection by test strip" /> <statusCode code="completed " /> <effectiveTime value="238713873127" /> <value unit="" xsi :type="PQ" value="NEGATIVE" /> <referenceRange> < observationRange> <text>NEGATIVE</text> </ observationRange> </referenceRange> </observation> </ component> <component> <observation moodCode="EVN" classCode="OBS"> <templateId root="06.08.840.1.431700.10..22.4.2" /> <id nullFlavor="NA" /> <code codeSystem="local" code="5770-3" displayName= "Urine total bilirubin detection by test strip" /> <statusCode code= "completed" /> <effectiveTime value="890449476778" /> <value unit="" xsi:type="PQ" value="NEGATIVE" /> <referenceRange> < observationRange> <text>NEGATIVE</text> </ observationRange> </referenceRange> </observation> </ component> <component> <observation moodCode="EVN" classCode="OBS"> <templateId root="2.840.1.533652.02.09.22.4.2" /> <id nullFlavor="NA" /> <code codeSystem="local" code="96905-4" displayName= "Urine urobilinogen measurement by automated test strip (mass/volume)" /> <statusCode code="completed" /> <effectiveTime value="034618610763 " /> <value unit="" xsi:type="PQ" value="NORMAL" /> < referenceRange> <observationRange> <text>NORMAL</text> </observationRange> </referenceRange> </observation> </component> <component> <observation moodCode="EVN" classCode ="OBS"> <templateId root="216.840.1.327562.02.09.22.4.2" /> < id nullFlavor="NA" /> <code codeSystem="local" code="5799-2" displayName="Urine leukocyte esterase detection by dipstick" /> < statusCode code="completed" /> <effectiveTime value="761357376665" /> <value unit="" xsi:type="PQ" value="1+" /> < interpretationCode codeSystem="local" code="*" /> <referenceRange> <observationRange> <text>NEGATIVE</text> </ observationRange> </referenceRange> </observation> </ component> <component> <observation moodCode="EVN" classCode="OBS"> <templateId root="216.840.1.407278.02.09.22.4.2" /> <id nullFlavor="NA" /> <code codeSystem="local" code="26954-7" displayName= "Automated urine sediment erythrocyte count by microscopy (number/high power field)" /> <statusCode code="completed" /> <effectiveTime value="064946015688" /> <value unit="[HPF]" xsi:type="PQ" value="" /> <referenceRange> <observationRange> <text>NRG</ text> </observationRange> </referenceRange> </ observation> </component> <component> <observation moodCode= "EVN" classCode="OBS"> <templateId root="216.840.1.015235.10..22.4.2 " /> <id nullFlavor="NA" /> <code codeSystem="local" code= "5821-4" displayName="Automated urine sediment leukocyte count by microscopy ( number/high power field)" /> <statusCode code="completed" /> < effectiveTime value="166730633959" /> <value unit="[HPF]" xsi:type="PQ " value="" /> <referenceRange> <observationRange> <text>NRG</text> </observationRange> </referenceRange> </observation> </component> <component> <observation moodCode="EVN" classCode="OBS"> <templateId root= "06.08.840.1.193509.10..4.2" /> <id nullFlavor="NA" /> < code codeSystem="local" code="50524-4" displayName="Bacteria detection in urine sediment by light microscopy" /> <statusCode code="completed" /> <effectiveTime value="182819472730" /> <value unit="" xsi:type="PQ " value="NEGATIVE" /> <referenceRange> <observationRange> <text>NRG</text> </observationRange> </ referenceRange> </observation> </component> <component> <observation moodCode="EVN" classCode="OBS"> <templateId root= "16.840.1.807840.10..22.4.2" /> <id nullFlavor="NA" /> < code codeSystem="local" code="55341-3" displayName="Squamous epithelial cells detection in urine sediment by light microscopy" /> <statusCode code= "completed" /> <effectiveTime value="211749451641" /> <value unit="" xsi:type="PQ" value="5-10" /> <referenceRange> < observationRange> <text>NRG</text> </observationRange> </referenceRange> </observation> </component> < component> <observation moodCode="EVN" classCode="OBS"> < templateId root="216.840.1.049453.10.2022.4.2" /> <id nullFlavor="NA " /> <code codeSystem="local" code="95800-4" displayName="Crystals detection in urine sediment by light microscopy" /> <statusCode code= "completed" /> <effectiveTime value="882773977658" /> <value unit="" xsi:type="PQ" value="NONE" /> <referenceRange> < observationRange> <text>NRG</text> </observationRange> </referenceRange> </observation> </component> < component> <observation moodCode="EVN" classCode="OBS"> < templateId root="06.08.840.1.046811.10.22.4.2" /> <id nullFlavor="NA " /> <code codeSystem="local" code="87295-7" displayName="Casts detection in urine sediment by light microscopy" /> <statusCode code= "completed" /> <effectiveTime value="416585999081" /> <value unit="" xsi:type="PQ" value="NONE" /> <referenceRange> < observationRange> <text>NRG</text> </observationRange> </referenceRange> </observation> </component> < component> <observation moodCode="EVN" classCode="OBS"> < templateId root="216.840.1.584372.10.2022.4.2" /> <id nullFlavor="NA " /> <code codeSystem="local" code="8247-9" displayName="Mucus detection in urine sediment by light microscopy" /> <statusCode code= "completed" /> <effectiveTime value="463836639098" /> <value unit="" xsi:type="PQ" value="NEGATIVE" /> <referenceRange> < observationRange> <text>NRG</text> </observationRange> </referenceRange> </observation> </component> < component> <observation moodCode="EVN" classCode="OBS"> < templateId root="16.840.1.481578.10..4.2" /> <id nullFlavor="NA " /> <code codeSystem="local" code="77837-6" displayName="Complete urinalysis with reflex to culture" /> <statusCode code="completed" /> <effectiveTime value="012901089687" /> <value unit="" xsi:type ="PQ" value="NO" /> <referenceRange> <observationRange> <text>NRG</text> </observationRange> </ referenceRange> </observation> </component> </organizer> </entry > <entry> <organizer moodCode="EVN" classCode="BATTERY"> <templateId root="06.08.840.1.179092.10...4.1" /> <id nullFlavor="NA" /> <code codeSystem="local" code="80965-9" displayName="Urine drug screening test" /> <statusCode code="completed" /> <component> <observation moodCode ="EVN" classCode="OBS"> <templateId root= "06.08.840.1.666722.10..22.4.2" /> <id nullFlavor="NA" /> < code codeSystem="local" code="01437-6" displayName="Urine phencyclidine detection by screening method" /> <statusCode code="completed" /> <effectiveTime value="439081216905" /> <value unit="" xsi:type="PQ " value="NEGATIVE" /> <referenceRange> <observationRange> <text>NEGATIVE</text> </observationRange> </ referenceRange> </observation> </component> <component> <observation moodCode="EVN" classCode="OBS"> <templateId root= "216.840.1.491331.1022.4.2" /> <id nullFlavor="NA" /> < code codeSystem="local" code="03635-1" displayName="Urine benzodiazepines detection by screening method" /> <statusCode code="completed" /> <effectiveTime value="401623270120" /> <value unit="" xsi:type="PQ " value="NEGATIVE" /> <referenceRange> <observationRange> <text>NEGATIVE</text> </observationRange> </ referenceRange> </observation> </component> <component> <observation moodCode="EVN" classCode="OBS"> <templateId root= "16.840.1.228038.02.09.22.4.2" /> <id nullFlavor="NA" /> < code codeSystem="local" code="3397-7" displayName="Urine cocaine detection" /> <statusCode code="completed" /> <effectiveTime value= "910812647619" /> <value unit="" xsi:type="PQ" value="NEGATIVE" /> <referenceRange> <observationRange> <text>NEGATIVE </text> </observationRange> </referenceRange> </ observation> </component> <component> <observation moodCode= "EVN" classCode="OBS"> <templateId root="216.840.1.489094.10.22.4.2 " /> <id nullFlavor="NA" /> <code codeSystem="local" code= "02398-5" displayName="Urine amphetamines detection by screening method" /> <statusCode code="completed" /> <effectiveTime value= "469391886411" /> <value unit="" xsi:type="PQ" value="NEGATIVE" /> <referenceRange> <observationRange> <text>NEGATIVE </text> </observationRange> </referenceRange> </ observation> </component> <component> <observation moodCode= "EVN" classCode="OBS"> <templateId root="2.16.840.1.474278.10.20.22.4.2 " /> <id nullFlavor="NA" /> <code codeSystem="local" code= "90856-0" displayName="Urine methamphetamine detection by screening method" /> <statusCode code="completed" /> <effectiveTime value= "609513312393" /> <value unit="" xsi:type="PQ" value="NEGATIVE" /> <referenceRange> <observationRange> <text>NEGATIVE </text> </observationRange> </referenceRange> </ observation> </component> <component> <observation moodCode= "EVN" classCode="OBS"> <templateId root="2.16.840.1.005707.10.20.22.4.2 " /> <id nullFlavor="NA" /> <code codeSystem="local" code= "68859-6" displayName="Urine cannabinoids detection by screening method" /> <statusCode code="completed" /> <effectiveTime value= "250451457148" /> <value unit="" xsi:type="PQ" value="NEGATIVE" /> <referenceRange> <observationRange> <text>NEGATIVE </text> </observationRange> </referenceRange> </ observation> </component> <component> <observation moodCode= "EVN" classCode="OBS"> <templateId root="2.16.840.1.376059.10.20.22.4.2 " /> <id nullFlavor="NA" /> <code codeSystem="local" code= "62712-1" displayName="Urine opiates detection by screening method" /> <statusCode code="completed" /> <effectiveTime value="759994640962" /> <value unit="" xsi:type="PQ" value="POSITIVE" /> < interpretationCode codeSystem="local" code="*" /> <referenceRange> <observationRange> <text>NEGATIVE</text> </ observationRange> </referenceRange> </observation> </ component> <component> <observation moodCode="EVN" classCode="OBS"> <templateId root="216.840.1.637581.10..22.4.2" /> <id nullFlavor="NA" /> <code codeSystem="local" code="3377-9" displayName= "Urine barbiturates detection" /> <statusCode code="completed" /> <effectiveTime value="" /> <value unit="" xsi:type="PQ " value="NEGATIVE" /> <referenceRange> <observationRange> <text>NEGATIVE</text> </observationRange> </ referenceRange> </observation> </component> <component> <observation moodCode="EVN" classCode="OBS"> <templateId root= "16.840.1.728227.10.20.22.4.2" /> <id nullFlavor="NA" /> < code codeSystem="local" code="27570-2" displayName="Screening urine tricyclic antidepressants detection" /> <statusCode code="completed" /> <effectiveTime value="177834800701" /> <value unit="" xsi:type="PQ" value="NEGATIVE" /> <referenceRange> <observationRange> <text>NEGATIVE</text> </observationRange> </ referenceRange> </observation> </component> <component> <observation moodCode="EVN" classCode="OBS"> <templateId root= "2.16.840.1.112419.10.22.4.2" /> <id nullFlavor="NA" /> < code codeSystem="local" code="00802-7" displayName="Urine methadone detection by screening method" /> <statusCode code="completed" /> < effectiveTime value="964555184502" /> <value unit="" xsi:type="PQ" value="NEGATIVE" /> <referenceRange> <observationRange> <text>NEGATIVE</text> </observationRange> </ referenceRange> </observation> </component> <component> <observation moodCode="EVN" classCode="OBS"> <templateId root= "216.840.1.472040.02.09.22.4.2" /> <id nullFlavor="NA" /> < code codeSystem="local" code="01517-1" displayName="Urine oxycodone detection" / > <statusCode code="completed" /> <effectiveTime value= "525460418050" /> <value unit="" xsi:type="PQ" value="NEGATIVE" /> <referenceRange> <observationRange> <text>NEGATIVE </text> </observationRange> </referenceRange> </ observation> </component> <component> <observation moodCode= "EVN" classCode="OBS"> <templateId root="216.840.1.651437.10..4.2 " /> <id nullFlavor="NA" /> <code codeSystem="local" code= "98752-1" displayName="Urine propoxyphene detection" /> <statusCode code="completed" /> <effectiveTime value="611791599532" /> < value unit="" xsi:type="PQ" value="NEGATIVE" /> <referenceRange> <observationRange> <text>NEGATIVE</text> </ observationRange> </referenceRange> </observation> </ component> </organizer> </entry> <entry> <organizer moodCode="EVN" classCode="BATTERY"> <templateId root="216.840.1.946051.10.20.22.4.1" /> <id nullFlavor="NA" /> <code codeSystem="local" code="96924-8" displayName="Complete blood count (CBC) with automated white blood cell (WBC) differential" /> <statusCode code="completed" /> <component> < observation moodCode="EVN" classCode="OBS"> <templateId root= "216.840.1.550206.10.20.22.4.2" /> <id nullFlavor="NA" /> < code codeSystem="local" code="6690-2" displayName="Blood leukocytes automated count (number/volume)" /> <statusCode code="completed" /> < effectiveTime value="236685093892" /> <value unit="10*3/uL" xsi:type= "PQ" value="7.0" /> <referenceRange> <observationRange> <text>4.3-11.0</text> </observationRange> </ referenceRange> </observation> </component> <component> <observation moodCode="EVN" classCode="OBS"> <templateId root= "216.840.1.739222.10.20.22.4.2" /> <id nullFlavor="NA" /> < code codeSystem="local" code="789-8" displayName="Blood erythrocytes automated count (number/volume)" /> <statusCode code="completed" /> < effectiveTime value="784423393276" /> <value unit="10*6/uL" xsi:type= "PQ" value="3.83" /> <interpretationCode codeSystem="local" code="" / > <referenceRange> <observationRange> <text> 4.35-5.85</text> </observationRange> </referenceRange> </observation> </component> <component> <observation moodCode="EVN" classCode="OBS"> <templateId root= "2.16.840.1.395941.10.22.4.2" /> <id nullFlavor="NA" /> < code codeSystem="local" code="19423-4" displayName="Venous blood hemoglobin measurement (mass/volume)" /> <statusCode code="completed" /> <effectiveTime value="448729016665" /> <value unit="g/dL" xsi:type="PQ " value="13.0" /> <referenceRange> <observationRange> <text>11.5-16.0</text> </observationRange> </ referenceRange> </observation> </component> <component> <observation moodCode="EVN" classCode="OBS"> <templateId root= "216.840.1.361459.10..4.2" /> <id nullFlavor="NA" /> < code codeSystem="local" code="89963-7" displayName="Blood hematocrit (volume fraction)" /> <statusCode code="completed" /> <effectiveTime value="015458788050" /> <value unit="%" xsi:type="PQ" value="39" / > <referenceRange> <observationRange> <text>35- 52</text> </observationRange> </referenceRange> </ observation> </component> <component> <observation moodCode= "EVN" classCode="OBS"> <templateId root="216.840.1.554083.10.20.22.4.2 " /> <id nullFlavor="NA" /> <code codeSystem="local" code="787 -2" displayName="Automated erythrocyte mean corpuscular volume" /> < statusCode code="completed" /> <effectiveTime value="626819131676" /> <value unit="[foz_us]" xsi:type="PQ" value="101" /> < interpretationCode codeSystem="local" code="" /> <referenceRange> <observationRange> <text>80-99</text> </ observationRange> </referenceRange> </observation> </ component> <component> <observation moodCode="EVN" classCode="OBS"> <templateId root="2.16.840.1.574058.10..22.4.2" /> <id nullFlavor="NA" /> <code codeSystem="local" code="785-6" displayName= "Automated erythrocyte mean corpuscular hemoglobin (mass per erythrocyte)" /> <statusCode code="completed" /> <effectiveTime value= "759347666076" /> <value unit="pg" xsi:type="PQ" value="34" /> <referenceRange> <observationRange> <text>25-34</text > </observationRange> </referenceRange> </observation > </component> <component> <observation moodCode="EVN" classCode="OBS"> <templateId root="216.840.1.748412.10..22.4.2" /> <id nullFlavor="NA" /> <code codeSystem="local" code="786-4" displayName="Automated erythrocyte mean corpuscular hemoglobin concentration measurement (mass/volume)" /> <statusCode code="completed" /> <effectiveTime value="476856218848" /> <value unit="g/dL" xsi:type="PQ " value="34" /> <referenceRange> <observationRange> <text>32-36</text> </observationRange> </ referenceRange> </observation> </component> <component> <observation moodCode="EVN" classCode="OBS"> <templateId root= "216.840.1.152259.10.20.22.4.2" /> <id nullFlavor="NA" /> < code codeSystem="local" code="788-0" displayName="Automated erythrocyte distribution width ratio" /> <statusCode code="completed" /> < effectiveTime value="859907914559" /> <value unit="%" xsi:type="PQ " value="13.2" /> <referenceRange> <observationRange> <text>10.0-14.5</text> </observationRange> </ referenceRange> </observation> </component> <component> <observation moodCode="EVN" classCode="OBS"> <templateId root= "06.08.840.1.706846.10.20.22.4.2" /> <id nullFlavor="NA" /> < code codeSystem="local" code="777-3" displayName="Automated blood platelet count (count/volume)" /> <statusCode code="completed" /> < effectiveTime value="654466215350" /> <value unit="10*3/uL" xsi:type= "PQ" value="414" /> <interpretationCode codeSystem="local" code="" / > <referenceRange> <observationRange> <text>130 -400</text> </observationRange> </referenceRange> </ observation> </component> <component> <observation moodCode= "EVN" classCode="OBS"> <templateId root="216.840.1.287484.10.20.22.4.2 " /> <id nullFlavor="NA" /> <code codeSystem="local" code= "38235-1" displayName="Automated blood platelet mean volume measurement" /> <statusCode code="completed" /> <effectiveTime value= "684518760652" /> <value unit="[[facility]_us]" xsi:type="PQ" value="8.0" /> <referenceRange> <observationRange> <text>7.4- 10.4</text> </observationRange> </referenceRange> </ observation> </component> <component> <observation moodCode= "EVN" classCode="OBS"> <templateId root="2.16.840.1.967956.10.20.22.4.2 " /> <id nullFlavor="NA" /> <code codeSystem="local" code="770 -8" displayName="Automated blood neutrophils/100 leukocytes" /> < statusCode code="completed" /> <effectiveTime value="496694151920" /> <value unit="%" xsi:type="PQ" value="66" /> < referenceRange> <observationRange> <text>42-75</text> </observationRange> </referenceRange> </observation> </component> <component> <observation moodCode="EVN" classCode= "OBS"> <templateId root="2.16.840.1.721649.10.20.22.4.2" /> < id nullFlavor="NA" /> <code codeSystem="local" code="736-9" displayName ="Automated blood lymphocytes/100 leukocytes" /> <statusCode code= "completed" /> <effectiveTime value="934348743968" /> <value unit="%" xsi:type="PQ" value="24" /> <referenceRange> < observationRange> <text>12-44</text> </observationRange > </referenceRange> </observation> </component> < component> <observation moodCode="EVN" classCode="OBS"> < templateId root="2.16.840.1.511817.10.20.22.4.2" /> <id nullFlavor="NA " /> <code codeSystem="local" code="55632-0" displayName="Blood monocytes/100 leukocytes" /> <statusCode code="completed" /> < effectiveTime value="077238494013" /> <value unit="%" xsi:type="PQ " value="8" /> <referenceRange> <observationRange> <text>0-12</text> </observationRange> </referenceRange > </observation> </component> <component> <observation moodCode="EVN" classCode="OBS"> <templateId root= "2.16.840.1.443507.10..22.4.2" /> <id nullFlavor="NA" /> < code codeSystem="local" code="713-8" displayName="Automated blood eosinophils/ 100 leukocytes" /> <statusCode code="completed" /> < effectiveTime value="122370138275" /> <value unit="%" xsi:type="PQ " value="1" /> <referenceRange> <observationRange> <text>0-10</text> </observationRange> </referenceRange > </observation> </component> <component> <observation moodCode="EVN" classCode="OBS"> <templateId root= "2.16.840.1.532568.10.20.22.4.2" /> <id nullFlavor="NA" /> < code codeSystem="local" code="706-2" displayName="Automated blood basophils/100 leukocytes" /> <statusCode code="completed" /> <effectiveTime value="278017361881" /> <value unit="%" xsi:type="PQ" value="0" /> <referenceRange> <observationRange> <text>0-10 </text> </observationRange> </referenceRange> </ observation> </component> <component> <observation moodCode= "EVN" classCode="OBS"> <templateId root="216.840.1.499022.10.20.22.4.2 " /> <id nullFlavor="NA" /> <code codeSystem="local" code="751 -8" displayName="Blood neutrophils automated count (number/volume)" /> <statusCode code="completed" /> <effectiveTime value="880315069144" /> <value unit="10*3" xsi:type="PQ" value="4.7" /> < referenceRange> <observationRange> <text>1.8-7.8</text> </observationRange> </referenceRange> </observation > </component> <component> <observation moodCode="EVN" classCode="OBS"> <templateId root="06.08.840.1.313686.10.22.4.2" /> <id nullFlavor="NA" /> <code codeSystem="local" code="731-0" displayName="Blood lymphocytes automated count (number/volume)" /> < statusCode code="completed" /> <effectiveTime value="651866426028" /> <value unit="10*3" xsi:type="PQ" value="1.7" /> < referenceRange> <observationRange> <text>1.0-4.0</text> </observationRange> </referenceRange> </observation > </component> <component> <observation moodCode="EVN" classCode="OBS"> <templateId root="16.840.1.568864.10.20.22.4.2" /> <id nullFlavor="NA" /> <code codeSystem="local" code="742-7" displayName="Blood monocytes automated count (number/volume)" /> < statusCode code="completed" /> <effectiveTime value="867511817377" /> <value unit="10*3" xsi:type="PQ" value="0.6" /> < referenceRange> <observationRange> <text>0.0-1.0</text> </observationRange> </referenceRange> </observation > </component> <component> <observation moodCode="EVN" classCode="OBS"> <templateId root="2.16.840.1.653229.10.20.22.4.2" /> <id nullFlavor="NA" /> <code codeSystem="local" code="711-2" displayName="Automated eosinophil count" /> <statusCode code="completed " /> <effectiveTime value="583001483238" /> <value unit="10*3/ uL" xsi:type="PQ" value="0.1" /> <referenceRange> < observationRange> <text>0.0-0.3</text> </ observationRange> </referenceRange> </observation> </ component> <component> <observation moodCode="EVN" classCode="OBS"> <templateId root="2.16.840.1.651879.10.20.22.4.2" /> <id nullFlavor="NA" /> <code codeSystem="local" code="704-7" displayName= "Automated blood basophil count (count/volume)" /> <statusCode code= "completed" /> <effectiveTime value="346609855158" /> <value unit="10*3/uL" xsi:type="PQ" value="0.0" /> <referenceRange> <observationRange> <text>0.0-0.1</text> </ observationRange> </referenceRange> </observation> </ component> </organizer> </entry> <entry> <organizer moodCode="EVN" classCode="BATTERY"> <templateId root="2.16.840.1.291443.10.20.22.4.1" /> <id nullFlavor="NA" /> <code codeSystem="local" code="69882-1" displayName="Comprehensive metabolic panel" /> <statusCode code="completed " /> <component> <observation moodCode="EVN" classCode="OBS"> <templateId root="2.16.840.1.981988.10.20.22.4.2" /> <id nullFlavor ="NA" /> <code codeSystem="local" code="2951-2" displayName="Serum or plasma sodium measurement (moles/volume)" /> <statusCode code= "completed" /> <effectiveTime value="302319763741" /> <value unit="mmol/L" xsi:type="PQ" value="138" /> <referenceRange> <observationRange> <text>135-145</text> </ observationRange> </referenceRange> </observation> </ component> <component> <observation moodCode="EVN" classCode="OBS"> <templateId root="2.16.840.1.624432.10.20.22.4.2" /> <id nullFlavor="NA" /> <code codeSystem="local" code="2823-3" displayName= "Serum or plasma potassium measurement (moles/volume)" /> <statusCode code="completed" /> <effectiveTime value="202001499911" /> < value unit="mmol/L" xsi:type="PQ" value="4.0" /> <referenceRange> <observationRange> <text>3.6-5.0</text> </ observationRange> </referenceRange> </observation> </ component> <component> <observation moodCode="EVN" classCode="OBS"> <templateId root="216.840.1.007840.10.20.22.4.2" /> <id nullFlavor="NA" /> <code codeSystem="local" code="" displayName= "Serum or plasma chloride measurement (moles/volume)" /> <statusCode code="completed" /> <effectiveTime value="327386759594" /> < value unit="mmol/L" xsi:type="PQ" value="106" /> <referenceRange> <observationRange> <text>98-107</text> </ observationRange> </referenceRange> </observation> </ component> <component> <observation moodCode="EVN" classCode="OBS"> <templateId root="16.840.1.708270.10..22.4.2" /> <id nullFlavor="NA" /> <code codeSystem="local" code="2027-12" displayName= "Carbon dioxide" /> <statusCode code="completed" /> < effectiveTime value="262900269195" /> <value unit="mmol/L" xsi:type="PQ " value="25" /> <referenceRange> <observationRange> <text>21-32</text> </observationRange> </ referenceRange> </observation> </component> <component> <observation moodCode="EVN" classCode="OBS"> <templateId root= "16.840.1.410613.10..22.4.2" /> <id nullFlavor="NA" /> < code codeSystem="local" code="00769-6" displayName="Serum or plasma anion gap determination (moles/volume)" /> <statusCode code="completed" /> <effectiveTime value="124510225137" /> <value unit="mmol/L" xsi: type="PQ" value="7" /> <referenceRange> <observationRange> <text>5-14</text> </observationRange> </ referenceRange> </observation> </component> <component> <observation moodCode="EVN" classCode="OBS"> <templateId root= "216.840.1.459029.10.20.22.4.2" /> <id nullFlavor="NA" /> < code codeSystem="local" code="3094-0" displayName="Serum or plasma urea nitrogen measurement (mass/volume)" /> <statusCode code="completed" /> <effectiveTime value="781207211118" /> <value unit="mg/dL" xsi:type="PQ" value="9" /> <referenceRange> < observationRange> <text>7-18</text> </observationRange> </referenceRange> </observation> </component> < component> <observation moodCode="EVN" classCode="OBS"> < templateId root="216.840.1.491729.10..22.4.2" /> <id nullFlavor="NA " /> <code codeSystem="local" code="2160-0" displayName="Serum or plasma creatinine measurement (mass/volume)" /> <statusCode code= "completed" /> <effectiveTime value="777809453149" /> <value unit="mg/dL" xsi:type="PQ" value="0.67" /> <referenceRange> <observationRange> <text>0.60-1.30</text> </ observationRange> </referenceRange> </observation> </ component> <component> <observation moodCode="EVN" classCode="OBS"> <templateId root="216.840.1.693255.10.20.22.4.2" /> <id nullFlavor="NA" /> <code codeSystem="local" code="3097-3" displayName= "Serum or plasma urea nitrogen/creatinine mass ratio" /> <statusCode code="completed" /> <effectiveTime value="150251010462" /> < value unit="" xsi:type="PQ" value="13" /> <referenceRange> < observationRange> <text>NRG</text> </observationRange> </referenceRange> </observation> </component> < component> <observation moodCode="EVN" classCode="OBS"> < templateId root="2.16.840.1.377501.10..22.4.2" /> <id nullFlavor="NA " /> <code codeSystem="local" code="54471-5" displayName="Serum or plasma creatinine measurement with calculation of estimated glomerular filtration rate" /> <statusCode code="completed" /> < effectiveTime value="700955734681" /> <value unit="" xsi:type="PQ" value=">" /> <referenceRange> <observationRange> <text>NRG</text> </observationRange> </referenceRange > </observation> </component> <component> <observation moodCode="EVN" classCode="OBS"> <templateId root= "2.16.840.1.287424.10..22.4.2" /> <id nullFlavor="NA" /> < code codeSystem="local" code="2345-7" displayName="Serum or plasma glucose measurement (mass/volume)" /> <statusCode code="completed" /> <effectiveTime value="750559139922" /> <value unit="mg/dL" xsi:type="PQ " value="92" /> <referenceRange> <observationRange> <text>70-105</text> </observationRange> </ referenceRange> </observation> </component> <component> <observation moodCode="EVN" classCode="OBS"> <templateId root= "2.16.840.1.351443.10.20.22.4.2" /> <id nullFlavor="NA" /> < code codeSystem="local" code="37546-9" displayName="Serum or plasma calcium measurement (mass/volume)" /> <statusCode code="completed" /> <effectiveTime value="526000796564" /> <value unit="mg/dL" xsi:type="PQ " value="9.4" /> <referenceRange> <observationRange> <text>8.5-10.1</text> </observationRange> </ referenceRange> </observation> </component> <component> <observation moodCode="EVN" classCode="OBS"> <templateId root= "16.840.1.778197.10..22.4.2" /> <id nullFlavor="NA" /> < code codeSystem="local" code="1974-05" displayName="Serum or plasma total bilirubin measurement (mass/volume)" /> <statusCode code="completed" / > <effectiveTime value="835253324529" /> <value unit="mg/dL" xsi:type="PQ" value="0.4" /> <referenceRange> < observationRange> <text>0.1-1.0</text> </ observationRange> </referenceRange> </observation> </ component> <component> <observation moodCode="EVN" classCode="OBS"> <templateId root="06.08.840.1.590876.10.20.22.4.2" /> <id nullFlavor="NA" /> <code codeSystem="local" code="6768-6" displayName= "Serum or plasma alkaline phosphatase measurement (enzymatic activity/volume)" / > <statusCode code="completed" /> <effectiveTime value= "282541895397" /> <value unit="U/L" xsi:type="PQ" value="57" /> <referenceRange> <observationRange> <text>40-136</ text> </observationRange> </referenceRange> </ observation> </component> <component> <observation moodCode= "EVN" classCode="OBS"> <templateId root="2.16.840.1.152788.10.20.22.4.2 " /> <id nullFlavor="NA" /> <code codeSystem="local" code= "192" displayName="Serum or plasma aspartate aminotransferase measurement ( enzymatic activity/volume)" /> <statusCode code="completed" /> <effectiveTime value="754525229536" /> <value unit="U/L" xsi:type="PQ " value="16" /> <referenceRange> <observationRange> <text>5-34</text> </observationRange> </referenceRange > </observation> </component> <component> <observation moodCode="EVN" classCode="OBS"> <templateId root= "216.840.1.733857.10..22.4.2" /> <id nullFlavor="NA" /> < code codeSystem="local" code="1742-6" displayName="Serum or plasma alanine aminotransferase measurement (enzymatic activity/volume)" /> < statusCode code="completed" /> <effectiveTime value="185242684822" /> <value unit="U/L" xsi:type="PQ" value="13" /> <referenceRange > <observationRange> <text>0-55</text> </ observationRange> </referenceRange> </observation> </ component> <component> <observation moodCode="EVN" classCode="OBS"> <templateId root="216.840.1.189033.10.20.22.4.2" /> <id nullFlavor="NA" /> <code codeSystem="local" code="2885-2" displayName= "Serum or plasma protein measurement (mass/volume)" /> <statusCode code ="completed" /> <effectiveTime value="347624270214" /> <value unit="g/dL" xsi:type="PQ" value="7.8" /> <referenceRange> < observationRange> <text>6.4-8.2</text> </ observationRange> </referenceRange> </observation> </ component> <component> <observation moodCode="EVN" classCode="OBS"> <templateId root="16.840.1.352697.10.2022.4.2" /> <id nullFlavor="NA" /> <code codeSystem="local" code="1751-7" displayName= "Serum or plasma albumin measurement (mass/volume)" /> <statusCode code ="completed" /> <effectiveTime value="868024000967" /> <value unit="g/dL" xsi:type="PQ" value="4.6" /> <interpretationCode codeSystem ="local" code="" /> <referenceRange> <observationRange> <text>3.2-4.5</text> </observationRange> </ referenceRange> </observation> </component> </organizer> </entry > <entry> <organizer moodCode="EVN" classCode="BATTERY"> <templateId root="06.08.840.1.770800.22.4.1" /> <id nullFlavor="NA" /> <code codeSystem="local" code="3040-3" displayName="Lipase" /> <statusCode code= "completed" /> <component> <observation moodCode="EVN" classCode= "OBS"> <templateId root="16.840.1.655616.10.2022.4.2" /> < id nullFlavor="NA" /> <code codeSystem="local" code="3040-3" displayName="Lipase" /> <statusCode code="completed" /> < effectiveTime value="306034392276" /> <value unit="U/L" xsi:type="PQ" value="13" /> <referenceRange> <observationRange> <text>8-78</text> </observationRange> </referenceRange> </observation> </component> </organizer> </entry> <entry> < organizer moodCode="EVN" classCode="BATTERY"> <templateId root= "2.16.840.1.007190.10.20.22.4.1" /> <id nullFlavor="NA" /> <code codeSystem="local" code="1987-08" displayName="Serum or plasma C reactive protein measurement (mass/volume)" /> <statusCode code="completed" /> <component> <observation moodCode="EVN" classCode="OBS"> < templateId root="2.16.840.1.574636.10.20.22.4.2" /> <id nullFlavor="NA " /> <code codeSystem="local" code="1987-08" displayName="Serum or plasma C reactive protein measurement (mass/volume)" /> <statusCode code="completed" /> <effectiveTime value="572119207972" /> < value unit="mg/dL" xsi:type="PQ" value="0.04" /> <referenceRange> <observationRange> <text>0.00-0.50</text> </ observationRange> </referenceRange> </observation> </ component> </organizer> </entry> <entry> <organizer moodCode="EVN" classCode="BATTERY"> <templateId root="2.16.840.1.358352.10.20.22.4.1" /> <id nullFlavor="NA" /> <code codeSystem="local" code="5643-2" displayName="Serum or plasma ethanol measurement (mass/volume)" /> < statusCode code="completed" /> <component> <observation moodCode= "EVN" classCode="OBS"> <templateId root="216.840.1.926076.10..22.4.2 " /> <id nullFlavor="NA" /> <code codeSystem="local" code= "5643-2" displayName="Serum or plasma ethanol measurement (mass/volume)" /> <statusCode code="completed" /> <effectiveTime value= "147635076767" /> <value unit="mg/dL" xsi:type="PQ" value="<" /> <referenceRange> <observationRange> <text><10< /text> </observationRange> </referenceRange> </ observation> </component> </organizer> </entry> <entry> <organizer moodCode="EVN" classCode="BATTERY"> <templateId root= "216.840.1.616599.10..22.4.1" /> <id nullFlavor="NA" /> <code codeSystem="local" code="390972" displayName="Ct, Ng, Trich vag by AV" /> <statusCode code="completed" /> <component> <observation moodCode= "EVN" classCode="OBS"> <templateId root="216.840.1.767917.10.22.4.2 " /> <id nullFlavor="NA" /> <code codeSystem="local" code= "545490" displayName="Trich vag by AV" /> <statusCode code="completed " /> <effectiveTime value="662581820276" /> <value unit="" xsi :type="PQ" value="TNP" /> <referenceRange> <observationRange > <text /> </observationRange> </referenceRange > </observation> </component> <component> <observation moodCode="EVN" classCode="OBS"> <templateId root= "06.08.840.1.047265.02.09.22.4.2" /> <id nullFlavor="NA" /> < code codeSystem="local" code="181684" displayName="Chlamydia by AV" /> <statusCode code="completed" /> <effectiveTime value="443768039758" / > <value unit="" xsi:type="PQ" value="TNP" /> <referenceRange > <observationRange> <text /> </ observationRange> </referenceRange> </observation> </ component> <component> <observation moodCode="EVN" classCode="OBS"> <templateId root="840.1.922965.02.09.22.4.2" /> <id nullFlavor="NA" /> <code codeSystem="local" code="330740" displayName= "Gonococcus by AV" /> <statusCode code="completed" /> < effectiveTime value="416834945588" /> <value unit="" xsi:type="PQ" value="TNP" /> <referenceRange> <observationRange> <text /> </observationRange> </referenceRange> < /observation> </component> </organizer> </entry> <entry> < organizer moodCode="EVN" classCode="BATTERY"> <templateId root= "16.840.1.002612.02.09.22.4.1" /> <id nullFlavor="NA" /> <code codeSystem="local" code="ORD40" displayName="Thyroid Stimulating Hormone" /> <statusCode code="completed" /> <component> <observation moodCode ="EVN" classCode="OBS"> <templateId root= "06.08.840.1.733069.02.09.22.4.2" /> <id nullFlavor="NA" /> < code codeSystem="local" code="Res34" displayName="TSH" /> <statusCode code="completed" /> <effectiveTime value="553017294733" /> < value unit="mIU/mL" xsi:type="PQ" value="1.36" /> <referenceRange> <observationRange> <text>0.32-5.00</text> </ observationRange> </referenceRange> </observation> </ component> </organizer> </entry> <entry> <organizer moodCode="EVN" classCode="BATTERY"> <templateId root="216.840.1.093016.02.09.22.4.1" /> <id nullFlavor="NA" /> <code codeSystem="local" code="MDU5480" displayName="Urine Culture" /> <statusCode code="completed" /> < component> <observation moodCode="EVN" classCode="OBS"> < templateId root="216.840.1.806996.10..4.2" /> <id nullFlavor="NA " /> <code codeSystem="local" code="Khm2370" displayName="MEDIA PLATED " /> <statusCode code="completed" /> <effectiveTime value= "552872667209" /> <value unit="" xsi:type="PQ" value="Setup at 15:06 on 12/14/2017" /> <referenceRange> <observationRange> <text /> </observationRange> </referenceRange> </observation> </component> <component> <observation moodCode ="EVN" classCode="OBS"> <templateId root= "216.840.1.886317.10.4.2" /> <id nullFlavor="NA" /> < code codeSystem="local" code="Pxp5225" displayName="CULTURE SOURCE" /> <statusCode code="completed" /> <effectiveTime value="316381926273" /> <value unit="" xsi:type="PQ" value="clean [id number]\\" /> < referenceRange> <observationRange> <text /> < /observationRange> </referenceRange> </observation> </ component> </organizer> </entry> <entry> <organizer moodCode="EVN" classCode="BATTERY"> <templateId root="216.840.1.111392.10..22.4.1" /> <id nullFlavor="NA" /> <code codeSystem="local" code="Vrt27852" displayName="Sensi" /> <statusCode code="completed" /> <component> <observation moodCode="EVN" classCode="OBS"> <templateId root= "216.840.1.986575.10..4.2" /> <id nullFlavor="NA" /> < code codeSystem="local" code="Tom42271" displayName="FINAL CULTURE RESULTS" /> <statusCode code="completed" /> <effectiveTime value= "" /> <value unit="" xsi:type="PQ" value="Escherichia coli (Isolate 1)" /> <referenceRange> <observationRange> <text /> </observationRange> </referenceRange> </observation> </component> <component> <observation moodCode= "EVN" classCode="OBS"> <templateId root="2.16.840.1.271687.10...4.2 " /> <id nullFlavor="NA" /> <code codeSystem="local" code= "Xky9635" displayName="Ampicillin/Sulbactam" /> <statusCode code= "completed" /> <effectiveTime value="" /> <value unit="" xsi:type="PQ" value="<=8/4" /> <interpretationCode codeSystem="local" code="S" /> <referenceRange> < observationRange> <text /> </observationRange> </referenceRange> </observation> </component> <component> <observation moodCode="EVN" classCode="OBS"> <templateId root= "216.840.1.821846.10.4.2" /> <id nullFlavor="NA" /> < code codeSystem="local" code="Zzm5806" displayName="Ampicillin" /> < statusCode code="completed" /> <effectiveTime value="040138089048" /> <value unit="" xsi:type="PQ" value="<=8" /> < interpretationCode codeSystem="local" code="S" /> <referenceRange> <observationRange> <text /> </observationRange> </referenceRange> </observation> </component> < component> <observation moodCode="EVN" classCode="OBS"> < templateId root="216.840.1.466232.02.09.224.2" /> <id nullFlavor="NA " /> <code codeSystem="local" code="Wtl5703" displayName="Amoxicillin/ K Clavulanate" /> <statusCode code="completed" /> < effectiveTime value="882394681183" /> <value unit="" xsi:type="PQ" value="<=8/4" /> <interpretationCode codeSystem="local" code="S" /> <referenceRange> <observationRange> <text /> </observationRange> </referenceRange> </observation> </component> <component> <observation moodCode="EVN" classCode ="OBS"> <templateId root="216.840.1.210021.02.09.22.4.2" /> < id nullFlavor="NA" /> <code codeSystem="local" code="Yww1594" displayName="Ceftriaxone" /> <statusCode code="completed" /> < effectiveTime value="" /> <value unit="" xsi:type="PQ" value="<=8" /> <interpretationCode codeSystem="local" code="S" /> <referenceRange> <observationRange> <text /> </observationRange> </referenceRange> </observation> </component> <component> <observation moodCode="EVN" classCode= "OBS"> <templateId root="2.16.840.1.447621.02.09.22.4.2" /> < id nullFlavor="NA" /> <code codeSystem="local" code="Rmo8684" displayName="Ciprofloxacin" /> <statusCode code="completed" /> <effectiveTime value="" /> <value unit="" xsi:type="PQ" value="<=1" /> <interpretationCode codeSystem="local" code="S" /> <referenceRange> <observationRange> <text /> </observationRange> </referenceRange> </observation> </component> <component> <observation moodCode="EVN" classCode= "OBS"> <templateId root="216.840.1.892435.02.09.22.4.2" /> < id nullFlavor="NA" /> <code codeSystem="local" code="Rsl8944" displayName="Nitrofurantoin" /> <statusCode code="completed" /> <effectiveTime value="" /> <value unit="" xsi:type="PQ" value="<=32" /> <interpretationCode codeSystem="local" code="S" /> <referenceRange> <observationRange> <text /> </observationRange> </referenceRange> </observation> </component> <component> <observation moodCode="EVN" classCode= "OBS"> <templateId root="216.840.1.415776.10..4.2" /> < id nullFlavor="NA" /> <code codeSystem="local" code="Dss1547" displayName="Gentamicin" /> <statusCode code="completed" /> < effectiveTime value="398519097741" /> <value unit="" xsi:type="PQ" value="<=4" /> <interpretationCode codeSystem="local" code="S" /> <referenceRange> <observationRange> <text /> </observationRange> </referenceRange> </observation> </component> <component> <observation moodCode="EVN" classCode= "OBS"> <templateId root="06.08.840.1.839062.02.09.22.4.2" /> < id nullFlavor="NA" /> <code codeSystem="local" code="Exr4332" displayName="Levofloxacin" /> <statusCode code="completed" /> <effectiveTime value="204105122498" /> <value unit="" xsi:type="PQ" value="<=2" /> <interpretationCode codeSystem="local" code="S" /> <referenceRange> <observationRange> <text /> </observationRange> </referenceRange> </observation> </component> <component> <observation moodCode="EVN" classCode= "OBS"> <templateId root="16.840.1.846515.10.4.2" /> < id nullFlavor="NA" /> <code codeSystem="local" code="Etb0548" displayName="Trimethoprim/ Sulfamethoxazole" /> <statusCode code= "completed" /> <effectiveTime value="122815088451" /> <value unit="" xsi:type="PQ" value="<=2/38" /> <interpretationCode codeSystem="local" code="S" /> <referenceRange> < observationRange> <text /> </observationRange> </referenceRange> </observation> </component> <component> <observation moodCode="EVN" classCode="OBS"> <templateId root= "06.08.840.1.468051.10..22.4.2" /> <id nullFlavor="NA" /> < code codeSystem="local" code="Wcu6529" displayName="Tetracycline" /> < statusCode code="completed" /> <effectiveTime value="075884046096" /> <value unit="" xsi:type="PQ" value="<=4" /> < interpretationCode codeSystem="local" code="S" /> <referenceRange> <observationRange> <text /> </observationRange> </referenceRange> </observation> </component> < component> <observation moodCode="EVN" classCode="OBS"> < templateId root="06.08.840.1.233141.10..22.4.2" /> <id nullFlavor="NA " /> <code codeSystem="local" code="Hhr9915" displayName="Amikacin" /> <statusCode code="completed" /> <effectiveTime value= "196520004158" /> <value unit="" xsi:type="PQ" value="<=16" /> <interpretationCode codeSystem="local" code="S" /> <referenceRange > <observationRange> <text /> </ observationRange> </referenceRange> </observation> </ component> <component> <observation moodCode="EVN" classCode="OBS"> <templateId root="06.08.840.1.817815.10.20.22.4.2" /> <id nullFlavor="NA" /> <code codeSystem="local" code="Raq2378" displayName= "Aztreonam" /> <statusCode code="completed" /> <effectiveTime value="" /> <value unit="" xsi:type="PQ" value="<=8" /> <interpretationCode codeSystem="local" code="S" /> < referenceRange> <observationRange> <text /> < /observationRange> </referenceRange> </observation> </ component> <component> <observation moodCode="EVN" classCode="OBS"> <templateId root="216.840.1.588057.10...4.2" /> <id nullFlavor="NA" /> <code codeSystem="local" code="Fqc5611" displayName= "Ceftazidime" /> <statusCode code="completed" /> < effectiveTime value="" /> <value unit="" xsi:type="PQ" value="<=1" /> <interpretationCode codeSystem="local" code="S" /> <referenceRange> <observationRange> <text /> </observationRange> </referenceRange> </observation> </component> <component> <observation moodCode="EVN" classCode= "OBS"> <templateId root="216.840.1.247476.10..22.4.2" /> < id nullFlavor="NA" /> <code codeSystem="local" code="Vfp8613" displayName="Ceftazidime/K Clavulanate" /> <statusCode code="completed " /> <effectiveTime value="662817097795" /> <value unit="" xsi :type="PQ" value="<=0.25" /> <referenceRange> < observationRange> <text /> </observationRange> </referenceRange> </observation> </component> <component> <observation moodCode="EVN" classCode="OBS"> <templateId root= "16.840.1.960553.10.20.22.4.2" /> <id nullFlavor="NA" /> < code codeSystem="local" code="Gba9644" displayName="Cephalothin" /> < statusCode code="completed" /> <effectiveTime value="157354414760" /> <value unit="" xsi:type="PQ" value="16" /> < interpretationCode codeSystem="local" code="I" /> <referenceRange> <observationRange> <text /> </observationRange> </referenceRange> </observation> </component> < component> <observation moodCode="EVN" classCode="OBS"> < templateId root="06.08.840.1.537191.10..4.2" /> <id nullFlavor="NA " /> <code codeSystem="local" code="Yhh9591" displayName="Cefotaxime" / > <statusCode code="completed" /> <effectiveTime value= "426526527491" /> <value unit="" xsi:type="PQ" value="<=2" /> <interpretationCode codeSystem="local" code="S" /> <referenceRange > <observationRange> <text /> </ observationRange> </referenceRange> </observation> </ component> <component> <observation moodCode="EVN" classCode="OBS"> <templateId root="06.08.840.1.685156.10..22.4.2" /> <id nullFlavor="NA" /> <code codeSystem="local" code="Tbc8472" displayName= "Cefotaxime/K Clavulanate" /> <statusCode code="completed" /> <effectiveTime value="" /> <value unit="" xsi:type="PQ" value="<=0.5" /> <referenceRange> <observationRange> <text /> </observationRange> </referenceRange> </observation> </component> <component> <observation moodCode="EVN" classCode="OBS"> <templateId root= "216.840.1.887747.10.20.22.4.2" /> <id nullFlavor="NA" /> < code codeSystem="local" code="Vxx0465" displayName="Cefoxitin" /> < statusCode code="completed" /> <effectiveTime value="689929038932" /> <value unit="" xsi:type="PQ" value="<=8" /> < interpretationCode codeSystem="local" code="S" /> <referenceRange> <observationRange> <text /> </observationRange> </referenceRange> </observation> </component> < component> <observation moodCode="EVN" classCode="OBS"> < templateId root="216.840.1.608514.10.20.22.4.2" /> <id nullFlavor="NA " /> <code codeSystem="local" code="Dpf0884" displayName="Cefazolin" / > <statusCode code="completed" /> <effectiveTime value= "[id number]" /> <value unit="" xsi:type="PQ" value="<=8" /> <interpretationCode codeSystem="local" code="S" /> <referenceRange > <observationRange> <text /> </ observationRange> </referenceRange> </observation> </ component> <component> <observation moodCode="EVN" classCode="OBS"> <templateId root="16.840.1.597295.10.20.22.4.2" /> <id nullFlavor="NA" /> <code codeSystem="local" code="Ubg6408" displayName= "Cefepime" /> <statusCode code="completed" /> <effectiveTime value="" /> <value unit="" xsi:type="PQ"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
[2018-02-13] MEDS ORDERED: ETOD500T (11:51)
[2018-02-13] MEDS ORDERED: LACTATED RINGERS 1,000 ML IV ONE (11:54)
[2018-02-13] MEDS ORDERED: ONDANSETRON 4 MG/2 ML (SDV) Z0FRAN IVP ONE (12:00)
[2018-02-13 12:03] LABS: BASOPHILS % (AUTO) 0 % (0-10); EOSINOPHILS % (AUTO) 0 % (0-10); HEMATOCRIT 43 % (35-52); HEMOGLOBIN 14.5 G/DL (11.5-16.0); LYMPHOCYTES # (AUTO) 1.5 X 10^3 (1.0-4.0); LYMPHOCYTES % (AUTO) 31 % (12-44); MEAN CORPUSCULAR HEMOGLOBIN 34 PG (25-34); MEAN CORPUSCULAR HGB CONC 34 G/DL (32-36); MEAN CORPUSCULAR VOLUME 101 FL (80-99); MEAN PLATELET VOLUME 8.6 FL (7.4-10.4); MONOCYTES # (AUTO) 0.4 X 10^3 (0.0-1.0); MONOCYTES % (AUTO) 8 % (0-12); NEUTROPHILS # (AUTO) 2.9 X 10^3 (1.8-7.8); NEUTROPHILS % (AUTO) 60 % (42-75); PLATELET COUNT 390 10^3/uL (130-400); RED BLOOD COUNT 4.24 10^6/uL (4.35-5.85); WHITE BLOOD COUNT 4.8 10^3/uL (4.3-11.0)
[2018-02-13 12:15] LABS: ALANINE AMINOTRANSFERASE 14 U/L (0-55); ALBUMIN 5.1 GM/DL (3.2-4.5); ALKALINE PHOSPHATASE 68 U/L (40-136); AMYLASE 48 U/L (25-125); BILIRUBIN,TOTAL 0.2 MG/DL (0.1-1.0); BUN/CREATININE RATIO 10; CALCIUM 9.9 MG/DL (8.5-10.1); CARBON DIOXIDE 20 MMOL/L (21-32); CHLORIDE 105 MMOL/L (98-107); CREATININE SERUM 0.78 MG/DL (0.60-1.30); GFR ESTIMATED > 60; GLUCOSE 109 MG/DL (70-105); LIPASE 11 U/L (8-78); POTASSIUM 3.8 MMOL/L (3.6-5.0); SODIUM 137 MMOL/L (135-145); TOTAL PROTEIN 8.7 GM/DL (6.4-8.2)
[2018-02-13] MEDS ORDERED: IOHEXOL 350 MG/ML 100 ML (OMNIPAQUE 350) VIAL IV ONE (12:15)
[2018-02-13] MEDS ORDERED: NS 250 ML (IVPB) BAG IV ONE (12:15)
[2018-02-13 12:28] LABS: BILIRUBIN,URINE NEGATIVE (NEGATIVE); CLARITY,URINE CLEAR; COLOR,URINE YELLOW; GLUCOSE, URINE (UA) NEGATIVE (NEGATIVE); KETONES,URINE NEGATIVE (NEGATIVE); LEUKOCYTE ESTERASE ,URINE NEGATIVE (NEGATIVE); NITRITE,URINE NEGATIVE (NEGATIVE); PH,URINE 6 (5-9); PROTEIN,URINE NEGATIVE (NEGATIVE); UROBILINOGEN,URINE NORMAL (NORMAL)
[2018-02-13 12:36] LABS: BACTERIA,URINE TRACE /HPF; RBC,URINE 0-2 /HPF; WBC,URINE RARE /HPF
--- NOTE | 2018-02-13 13:46 | Diagnostic Imaging Report ---
PROCEDURE: CT abdomen and pelvis with contrast, rule out appendicitis. TECHNIQUE: Multiple contiguous axial images were obtained through the abdomen and pelvis after the administration of intravenous contrast. INDICATION: Right-sided abdominal pain and fever. Comparison is made with prior CT abdomen and pelvis from 08/18/2017. The lung bases are clear. No discrete liver mass is seen. The gallbladder is unremarkable. The pancreas and spleen are unremarkable. No adrenal mass is detected. The kidneys are unremarkable. No hydronephrosis is identified. The aorta is non-aneurysmal. The small and large bowel loops are normal caliber. The appendix is visualized in the right lower quadrant appears unremarkable. There is a partially collapsed right ovarian cysts approximately 18 mm in size as well as moderate free pelvic fluid. The uterus and bladder are unremarkable. The bony structures are nonacute. IMPRESSION: No evidence of urinary tract obstruction or appendicitis. There are findings suggestive of a recent rupture of a right ovarian cyst with moderate free pelvic fluid. No other abnormalities are seen. Dictated by: Dictated on workstation # [id number]
[2018-02-13] MEDS ORDERED: KETOROLAC 30 MG/ML VIAL IVP ONE (14:00)
[2018-02-13] MEDS ORDERED: TRAM-42 PO (14:00)
[2018-02-13] MEDS ORDERED: ONDA4TAB8 PO (14:00)
--- NOTE | 2018-02-13 14:00 | ED Abdominal Pain ---
General Chief Complaint: Abdominal/GI Problems Stated Complaint: ABDOMINIAL PAIN Nursing Triage Note: pt presents to ed with complaints of r lower abdominal pain x 2 days. pt reports 1 episode of emesis yesterday and diahrrea x2. pt also reports nausea. Sepsis Screen: No Definite Risk Source of Information: Patient History of Present Illness Date Seen by Provider: Feb 13, 2018 Time Seen by Provider: 11:40 Initial Comments PT ARRIVES VIA POV FROM HOME C/O SEVERE RLQ PAIN SINCE YESTERDAY HAD FEVER OF 101.2 YESTERDAY C/O NAUSEA/VOMITING/DIARRHEA --VOMITED X 2 TODAY, DIARRHEA X 1 TODAY NO URINARY SYMPTOMS AND VOIDING A NORMAL AMOUNT NO SICK CONTACTS NO HISTORY OF SIMILAR LMP 01/29/18. NORMAL. ON OCP'S PT HAS CONTINUED TO EAT AND DRINK USUAL--HAD MORALES AND EGGS THIS AM, AND HAS BEEN DRINKING WATER ALL DAY. PCP: FITO HOUSER Allergies and Home Medications Allergies Coded Allergies: No Known Drug Allergies (Unverified , 02/22/13) Home Medications Hyoscyamine Sulfate 0.125 Mg Tab.subl, 0.125 MG SL Q6H PRN for SPASMS Prescribed by: VASHTI QUEZADA on 08/18/17 1334 Metoprolol Succinate 25 Mg Tab.er.24h, 25 MG PO DAILY Prescribed by: DION ONEAL on 08/02/17 1533 Naproxen 500 Mg Tablet, 1 EACH PO BID PRN for PAIN Prescribed by: LEE GAYTAN on 02/22/13 1302 Ondansetron 4 Mg Tab.rapdis, 4 MG PO Q6H PRN for NAUSEA/VOMITING-1ST LINE Prescribed by: VASHTI QUEZADA on 08/18/17 1334 Ondansetron 4 Mg Tab.rapdis, 4 MG PO Q4H Prescribed by: SHAWANDA MAGALLON on 02/13/18 1400 Tramadol HCl 50 Mg Tablet, 50 MG PO Q4H Prescribed by: SHAWANDA MAGALLON on 02/13/18 1400 Tramadol Hcl 50 Mg Tab, 50 MG PO Q6H PRN for PAIN Prescribed by: LEE GAYTAN on 02/22/13 1302 Patient Home Medication List Home Medication List Reviewed: Yes Review of Systems Review of Systems Constitutional: see HPI, fever Respiratory: No Symptoms Reported Cardiovascular: No Symptoms Reported Gastrointestinal: See HPI, Abdominal Pain, Diarrhea, Nausea, Vomiting Genitourinary: No Symptoms Reported Musculoskeletal: no symptoms reported Skin: no symptoms reported Psychiatric/Neurological: No Symptoms Reported Endocrine: No Symptoms Reported Hematologic/Lymphatic: No Symptoms Reported Past Ydcpghe-Teapce-Hhnpvm Hx Patient Social History Alcohol Use: Denies Use Recreational Drug Use: No Smoking Status: Former Smoker (/2 PPD, QUIT 04/2017) Former Smoker, Quit: Apr 23, 2017 Recent Foreign Travel: No Contact w/Someone Who Travel: No Recent Infectious Disease Expo: No Physical Abuse: No Sexual Abuse: No Mistreated: No Fear: No Immunizations Up To Date Tetanus Booster (TDap): Less than 5yrs Past Medical History Surgeries: No Respiratory: No Cardiac: Yes Irregular Heartbeat Neurological: No Reproductive Disorders: No Female Reproductive Disorders: Denies Sexually Transmitted Disease: No Genitourinary: No Gastrointestinal: No Musculoskeletal: Yes ("CHRONIC PAIN FROM FIBROMYALGIA" ) Fibromyalgia Endocrine: Yes (Sjogren's disease per patient ) HEENT: No Cancer: No Psychosocial: Yes Depression Integumentary: No Blood Disorders: No Family Medical History No Pertinent Family Hx Physical Exam Vital Signs Vital Signs - First Documented 02/13/18 11:35 Temp 98.2 Pulse 116 Resp 18 B/P (MAP) 127/96 (106) Pulse Ox 97 Capillary Refill : Less Than 3 Seconds Height/Weight/BMI Height: 5'8.00" Weight: 145lbs. oz. 65.294975ov; BMI Method:Stated General Appearance: thin, other (HOLDING RLQ) Respiratory: normal breath sounds, no respiratory distress, no accessory muscle use Cardiovascular: no murmur, tachycardia Gastrointestinal: normal bowel sounds, soft, no organomegaly, no pulsatile mass ; No distended; guarding, rebound, tenderness; No hernia, No mass Extremities: normal inspection, normal capillary refill Back: no CVA tenderness Neurologic/Psychiatric: office analyst II-XII nml as tested, no motor/sensory deficits, alert, normal mood/affect, oriented x 3 Skin: normal color, warm/dry; No rash Focused Exam Lactate Level 02/13/18 12:28: Lactic Acid Level 0.64 Lactic Acid Level Laboratory Tests Test 02/13/18 12:28 Lactic Acid Level 0.64 MMOL/L (0.50-2.00) Progress/Results/Core Measures Results/Orders Lab Results Laboratory Tests Test 02/13/18 11:36 02/13/18 11:40 02/13/18 12:28 Range/Units Urine Color YELLOW Urine Clarity CLEAR Urine pH 6 5-9 Urine Specific Robinson 1.015 L 1.016-1.022 Urine Protein NEGATIVE NEGATIVE Urine Glucose (UA) NEGATIVE NEGATIVE Urine Ketones NEGATIVE NEGATIVE Urine Nitrite NEGATIVE NEGATIVE Urine Bilirubin NEGATIVE NEGATIVE Urine Urobilinogen NORMAL NORMAL MG/DL Urine Leukocyte Esterase NEGATIVE NEGATIVE Urine RBC (Auto) 1+ H NEGATIVE Urine RBC 0-2 /HPF Urine WBC RARE /HPF Urine Squamous Epithelial Cells 5-10 /HPF Urine Crystals NONE /LPF Urine Bacteria TRACE /HPF Urine Casts NONE /LPF Urine Mucus SMALL H /LPF Urine Culture Indicated NO White Blood Count 4.8 4.3-11.0 10^3/uL Red Blood Count 4.24 L 4.35-5.85 10^6/uL Hemoglobin 14.5 11.5-16.0 G/DL Hematocrit 43 35-52 % Mean Corpuscular Volume 101 H 80-99 FL Mean Corpuscular Hemoglobin 34 25-34 PG Mean Corpuscular Hemoglobin Concent 34 32-36 G/DL Red Cell Distribution Width 13.0 10.0-14.5 % Platelet Count 390 130-400 10^3/uL Mean Platelet Volume 8.6 7.4-10.4 FL Neutrophils (%) (Auto) 60 42-75 % Lymphocytes (%) (Auto) 31 12-44 % Monocytes (%) (Auto) 8 0-12 % Eosinophils (%) (Auto) 0 0-10 % Basophils (%) (Auto) 0 0-10 % Neutrophils # (Auto) 2.9 1.8-7.8 X 10^3 Lymphocytes # (Auto) 1.5 1.0-4.0 X 10^3 Monocytes # (Auto) 0.4 0.0-1.0 X 10^3 Eosinophils # (Auto) 0.0 0.0-0.3 10^3/uL Basophils # (Auto) 0.0 0.0-0.1 10^3/uL Sodium Level 137 135-145 MMOL/L Potassium Level 3.8 3.6-5.0 MMOL/L Chloride Level 105 98-107 MMOL/L Carbon Dioxide Level 20 L 21-32 MMOL/L Anion Gap 12 5-14 MMOL/L Blood Urea Nitrogen 8 7-18 MG/DL Creatinine 0.78 0.60-1.30 MG/DL Estimat Glomerular Filtration Rate > 60 BUN/Creatinine Ratio 10 Glucose Level 109 H 70-105 MG/DL Calcium Level 9.9 8.5-10.1 MG/DL Corrected Calcium 8.5-10.1 MG/DL Total Bilirubin 0.2 0.1-1.0 MG/DL Aspartate Amino Transf (AST/SGOT) 17 5-34 U/L Alanine Aminotransferase (ALT/SGPT) 14 0-55 U/L Alkaline Phosphatase 68 40-136 U/L Total Protein 8.7 H 6.4-8.2 GM/DL Albumin 5.1 H 3.2-4.5 GM/DL Amylase Level 48 25-125 U/L Lipase 11 8-78 U/L Lactic Acid Level 0.64 0.50-2.00 MMOL/L My Orders Orders - SHAWANDA MAGALLON DO Ua Culture If Indicated (02/13/18 11:39) Urine Bedside (02/13/18 11:39) Saline Lock/Iv-Start (02/13/18 11:54) Ct Abd/Pelv W (Appendicitis) (02/13/18 11:54) Amylase (02/13/18 11:54) Cbc With Automated Diff (02/13/18 11:54) Comprehensive Metabolic Panel (02/13/18 11:54) Lactic Acid Analyzer (02/13/18 11:54) Lipase (02/13/18 11:54) Blood Culture (02/13/18 11:54) Saline Lock/Iv-Start (02/13/18 11:54) Lactated Ringers (Lr 1000 Ml Iv Solution (02/13/18 11:54) Ondansetron Injection (Zofran Injectio (02/13/18 12:00) Iohexol Injection (Omnipaque 350 Mg/Ml 1 (02/13/18 12:15) Ns (Ivpb) (Sodium Chloride 0.9%) (02/13/18 12:15) Pharmacy Communication (Pharmacy Communi (02/13/18 12:15) Ketorolac Injection (Toradol Injection) (02/13/18 14:00) Medications Given in ED Current Medications Medications Dose Ordered Sig/Oli Route Start Time Stop Time Status Last Admin Dose Admin Iohexol 100 ml ONCE ONCE IV 02/13/18 12:15 02/13/18 12:16 DC 02/13/18 13:07 100 ML Lactated Ringer's 1,000 ml @ 0 mls/hr Q0M ONCE IV 02/13/18 11:54 02/13/18 11:57 DC 02/13/18 12:00 0 MLS/HR Ondansetron HCl 4 mg ONCE ONCE IVP 02/13/18 12:00 02/13/18 12:01 DC 02/13/18 12:00 4 MG Sodium Chloride 250 ml ONCE ONCE IV 02/13/18 12:15 02/13/18 12:16 DC 02/13/18 13:07 80 ML Vital Signs/I&O 02/13/18 11:35 Temp 98.2 Pulse 116 Resp 18 B/P (MAP) 127/96 (106) Pulse Ox 97 Blood Pressure Mean: 106 Urine -Bedside: Negative Progress Progress Note : Progress Note SYMPTOMS IMPROVED AT DISMISSAL Diagnostic Imaging Comments CT ABDOMEN/PELVIS--RECENTLY RUPTURED RIGHT OVARIAN CYST, PER RADIOLOGIST REPORT @ 1350 Reviewed: Reviewed by Me Departure Impression Primary Impression: RUPTURED RIGHT OVARIAN CYST Disposition: HOME, SELF-CARE Condition: Stable Departure-Patient Inst. Referrals: NO,LOCAL PHYSICIAN (PCP) Primary Care Physician BELIA RENTERIA MD Patient Instructions: Ovarian Cyst (DC) Add. Discharge Instructions: CONTINUE ETODOLAC TWICE A DAY MOIST HEAT TO AREA AT 20 MINUTE INTERVALS ACTIVITIES TOLERATED FOLLOW UP WITH DR. RENTERIA IN 2 DAYS FOR FURTHER CARE RETURN TO ER IF WORSE All discharge instructions reviewed with patient and/or family. Voiced understanding. Scripts Tramadol HCl (Ultram) 50 Mg Tablet 50 MG PO Q4H, #20 TAB Prov: SHAWANDA MAGALLON DO 02/13/18 Ondansetron (Zofran Odt) 4 Mg Tab.rapdis 4 MG PO Q4H for Nausea/Vomiting, #10 TAB Prov: SHAWANDA MAGALLON DO 02/13/18 SHAWANDA MAGALLON DO Feb 13, 2018 14:00
[2018-02-13 14:24] VITALS: BP 112/64
== END 2018-02-13 14:24 | disposition home or self-care (01) ==
LOC: EDUNIT# 11:26 → ER 11:28
DX: N83.291 Other ovarian cyst, right side (principal); F32.9 Major depressive disorder, single episode, unspecified; Z87.891 Personal history of nicotine dependence
CPT/HCPCS: 36415; 74177; 80053; 81000; 82150; 83605; 83690; 84703; 85025; 87040; 96361; 96374; 96375

== ENCOUNTER 2018-05-05 16:00 | Observation (INO) | payer BC, MEDICAID ==
[~2018-05-05] VITALS: Ht 175.3 cm; Wt 65.8 kg
[~2018-05-05 16:00] MED LIST changes: +ETOD500T; +ONDA4TAB8 PO; +TRAM-42 PO
--- OUTSIDE RECORDS SUMMARY | 2018-05-05 16:24 | XMS REPORT ---
Author Author JINA CALDWELL Organization [facility] Address [address] [place] [address] Care Team Providers Care Security Orderly Name Role Phone JINA CALDWELL Unavailable PROBLEMS Type Condition ICD9-CM Code [id number] Code Onset Dates Condition Status SNOMED Code Problem Fibromyalgia M79.7 Active 676383258 ALLERGIES Substance Reaction Event Type Date Status Ultram seizure Drug Allergy Feb, Active ENCOUNTERS Encounter Location Date Diagnosis [facility] [address] [id number] [address] Feb, Tachycardia R00.0 ; Fibromyalgia M79.7 ; Encounter for immunization Z23 and Needs flu shot Z23 [facility] [address] [facility] [id number] [address] Jan, Pain of lower extremity, unspecified laterality M79.606 IMMUNIZATIONS Vaccine Route Administration Date Status FLULAVAL QUAD 0.5ML (6 MO & UP) 2018 IM Intramuscular Mar 19, 2018 Administered SOCIAL HISTORY Never Assessed REASON FOR VISIT Establish Care, pt has had high heart rate for past [address] prescribed meds but pt states not working. pt sweats a lot as well. Cshephsanna, pt states she would like to get on control and plans on making appointment with women services. PLAN OF CARE Activity Details Follow Up 3 Months. 3 months or as indicated by lab Reason: VITAL SIGNS Height 68 in 2018-03-19 Weight 141.8 lbs 2018-03-19 Temperature 99.2 degrees Fahrenheit 2018-03-19 Heart Rate 132 bpm 2018-03-19 Respiratory Rate 19 2018-03-19 Oximetry 97 % 2018-03-19 BMI 21.56 kg/m2 2018-03-19 Blood pressure systolic 110 mmHg 2018-03-19 Blood pressure diastolic 68 mmHg 2018-03-19 MEDICATIONS Medication Instructions Dosage Frequency Start Date End Date Duration Status Carvedilol 3.125 MG Orally twice a day as directed 12h 27 Feb, 2018 28 days Active Lyrica 150 MG Orally Three times a day 1 capsule 8h 30 Jan, 2018 28 days Active Cymbalta 60 mg Orally Once a day 2 capsule 24h 28 days Active RESULTS No Results PROCEDURES Procedure Date Ordered Result Body Site FLULAVAL QUAD 0.5ML (6 MO & UP) 2017Mar 19, 2018 SINGLE IMMUNIZATION ADMIN Mar 19, 2018 INSTRUCTIONS MEDICATIONS ADMINISTERED No Known Medications MEDICAL (GENERAL) HISTORY Type Description Date Medical History fibromyalgia Medical History anxiety Medical History depression Medical History arthritis Medical History elevated heart rate Surgical History No Surgical history information
--- OUTSIDE RECORDS SUMMARY | 2018-05-05 16:24 | XMS REPORT ---
Author Author ROLA TODD Organization [facility] Address [address] [place] [address] Care Team Providers Care Safety Consultant Name Role Phone ROLA TODD Unavailable PROBLEMS Unknown Problems ALLERGIES Substance Reaction Event Type Date Status Ultram seizure Drug Allergy Jan, Active ENCOUNTERS Encounter Location Date Diagnosis [facility] [address] [facility] [id number] [address] Jan, Pain of lower extremity, unspecified laterality M79.606 IMMUNIZATIONS No Known Immunizations SOCIAL HISTORY Never Assessed REASON FOR VISIT leg pain-Pt. just moved here and has not got a provider set up yet. She has fibromyalgia and has run out of her medications.--HESHAM Quezada PLAN OF CARE Activity Details Follow Up follow up with her provider Reason: VITAL SIGNS Height 68 in 2018-02-19 Weight 137 lbs 2018-02-19 Temperature 98.3 degrees Fahrenheit 2018-02-19 Heart Rate 120 bpm 2018-02-19 Respiratory Rate 18 2018-02-19 BMI 20.83 kg/m2 2018-02-19 Blood pressure systolic 114 mmHg 2018-02-19 Blood pressure diastolic 86 mmHg 2018-02-19 MEDICATIONS Medication Instructions Dosage Frequency Start Date End Date Duration Status Lyrica 50 mg Orally Twice a day 1 capsule 12h Jan, 14 days Active Cymbalta 60 MG Orally Once a day 2 capsule 24h Active RESULTS No Results PROCEDURES No Known procedures INSTRUCTIONS MEDICATIONS ADMINISTERED No Known Medications MEDICAL (GENERAL) HISTORY Type Description Date Medical History fibromyalgia Medical History anxiety Medical History depression Medical History arthritis Medical History elevated heart rate Surgical History No know Surgical history
--- OUTSIDE RECORDS SUMMARY | 2018-05-05 16:24 | XMS REPORT ---
Author Author JINA CALDWELL Organization [facility] Address [address] [place] [address] Care Team Providers Care Supervisor [employer] Name Role Phone JINA CALDWELL Unavailable PROBLEMS Type Condition ICD9-CM Code [id number] Code Onset Dates Condition Status SNOMED Code Problem Fibromyalgia M79.7 Active [id number] ALLERGIES No Information ENCOUNTERS Encounter Location Date Diagnosis [facility] [id number] [place] [id number] Feb, [facility] [id number] [address] Feb, Tachycardia R00.0 ; Fibromyalgia M79.7 ; Encounter for immunization Z23 and Needs flu shot Z23 [facility] [id number] [address] Jan, Pain of lower extremity, unspecified laterality M79.606 IMMUNIZATIONS No Known Immunizations SOCIAL HISTORY Never Assessed REASON FOR VISIT Medication question PLAN OF CARE VITAL SIGNS MEDICATIONS Unknown Medications RESULTS No Results PROCEDURES No Known procedures INSTRUCTIONS MEDICATIONS ADMINISTERED No Known Medications MEDICAL (GENERAL) HISTORY Type Description Date Medical History fibromyalgia Medical History anxiety Medical History depression Medical History arthritis Medical History elevated heart rate Surgical History No Surgical history information
--- OUTSIDE RECORDS SUMMARY | 2018-05-05 16:27 | XMS REPORT | Continuity of Care Document ---
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 value="[id number] " /> <value unit="%" xsi:type="PQ" value="52" /> < referenceRange> <observationRange> <text>50-75</text> </observationRange> </referenceRange> </observation> </component> <component> <observation moodCode="EVN" classCode= "OBS"> <templateId root="16.840.1.217843.10..22.4.2" /> < id nullFlavor="NA" /> <code codeSystem="local" code="LY#" displayName= "LYMPHOCYTE #" /> <statusCode code="completed" /> < effectiveTime value="002186393254" /> <value unit="k/cumm" xsi:type="PQ " value="3.1" /> <referenceRange> <observationRange> <text>1.0-4.0</text> </observationRange> </ referenceRange> </observation> </component> <component> <observation moodCode="EVN" classCode="OBS"> <templateId root= "216.840.1.330567.10...4.2" /> <id nullFlavor="NA" /> < code codeSystem="local" code="LY%" displayName="LYMPHOCYTE %" /> <statusCode code="completed" /> <effectiveTime value="638967287072" /> <value unit="%" xsi:type="PQ" value="39" /> < interpretationCode codeSystem="local" code="*" /> <referenceRange> <observationRange> <text>20-30</text> </ observationRange> </referenceRange> </observation> </ component> <component> <observation moodCode="EVN" classCode="OBS"> <templateId root="216.840.1.561603.10...4.2" /> <id nullFlavor="NA" /> <code codeSystem="local" code="MCH" displayName= "MEAN CELL HGB" /> <statusCode code="completed" /> < effectiveTime value="812652632492" /> <value unit="pg" xsi:type="PQ" value="33.7" /> <interpretationCode codeSystem="local" code="*" /> <referenceRange> <observationRange> <text>27.0- 33.0</text> </observationRange> </referenceRange> </ observation> </component> <component> <observation moodCode= "EVN" classCode="OBS"> <templateId root="16.840.1.788892.10.2022.4.2 " /> <id nullFlavor="NA" /> <code codeSystem="local" code= "MCHC" displayName="MEAN CELL HGB CONCENTRATION" /> <statusCode code= "completed" /> <effectiveTime value="785269295014" /> <value unit="g/dL" xsi:type="PQ" value="33.1" /> <referenceRange> < observationRange> <text>32.0-37.0</text> </ observationRange> </referenceRange> </observation> </ component> <component> <observation moodCode="EVN" classCode="OBS"> <templateId root="06.08.840.1.927000.10.4.2" /> <id nullFlavor="NA" /> <code codeSystem="local" code="MCV" displayName= "MEAN CELL VOLUME" /> <statusCode code="completed" /> < effectiveTime value="478652084454" /> <value unit="fl" xsi:type="PQ" value="101.9" /> <interpretationCode codeSystem="local" code="*" /> <referenceRange> <observationRange> <text>80.0- 100.0</text> </observationRange> </referenceRange> </ observation> </component> <component> <observation moodCode= "EVN" classCode="OBS"> <templateId root="06.08.840.1.839959.10.22.4.2 " /> <id nullFlavor="NA" /> <code codeSystem="local" code="MO# " displayName="MONOCYTE #" /> <statusCode code="completed" /> <effectiveTime value="294184403786" /> <value unit="k/cumm" xsi:type= "PQ" value="0.5" /> <referenceRange> <observationRange> <text>0.1-1.0</text> </observationRange> </ referenceRange> </observation> </component> <component> <observation moodCode="EVN" classCode="OBS"> <templateId root= "216.840.1.473740.10..4.2" /> <id nullFlavor="NA" /> < code codeSystem="local" code="MO%" displayName="MONOCYTE %" /> <statusCode code="completed" /> <effectiveTime value="195475528709" /> <value unit="%" xsi:type="PQ" value="7" /> < interpretationCode codeSystem="local" code="*" /> <referenceRange> <observationRange> <text>4-6</text> </ observationRange> </referenceRange> </observation> </ component> <component> <observation moodCode="EVN" classCode="OBS"> <templateId root="2.16.840.1.965025.10...4.2" /> <id nullFlavor="NA" /> <code codeSystem="local" code="RBC" displayName=" RED BLOOD CELL" /> <statusCode code="completed" /> < effectiveTime value="594896546382" /> <value unit="m/cumm" xsi:type="PQ " value="3.62" /> <interpretationCode codeSystem="local" code="*" /> <referenceRange> <observationRange> <text>4.00- 6.00</text> </observationRange> </referenceRange> </ observation> </component> <component> <observation moodCode= "EVN" classCode="OBS"> <templateId root="06.08.840.1.654560.10.2022.4.2 " /> <id nullFlavor="NA" /> <code codeSystem="local" code="RDW " displayName="RED CELL DISTRIBUTION WIDTH" /> <statusCode code= "completed" /> <effectiveTime value="011473698663" /> <value unit="%" xsi:type="PQ" value="12.3" /> <referenceRange> <observationRange> <text>11.0-15.6</text> </ observationRange> </referenceRange> </observation> </ component> <component> <observation moodCode="EVN" classCode="OBS"> <templateId root="06.08.840.1.779040..22.4.2" /> <id nullFlavor="NA" /> <code codeSystem="local" code="WBC" displayName= "WHITE BLOOD CELL" /> <statusCode code="completed" /> < effectiveTime value="655459116728" /> <value unit="k/cumm" xsi:type="PQ " value="8.0" /> <referenceRange> <observationRange> <text>5.0-10.0</text> </observationRange> </ referenceRange> </observation> </component> <component> <observation moodCode="EVN" classCode="OBS"> <templateId root= "06.08.840.1.163931.10.20.22.4.2" /> <id nullFlavor="NA" /> < code codeSystem="local" code="HGBT" displayName="HEMOGLOBIN" /> < statusCode code="completed" /> <effectiveTime value="379023050882" /> <value unit="gm/dL" xsi:type="PQ" value="12.2" /> < referenceRange> <observationRange> <text>12.0-16.0</text > </observationRange> </referenceRange> </observation > </component> <component> <observation moodCode="EVN" classCode="OBS"> <templateId root="06.08.840.1.140790.10.20.22.4.2" /> <id nullFlavor="NA" /> <code codeSystem="local" code="HCTT" displayName="HEMATOCRIT" /> <statusCode code="completed" /> < effectiveTime value="490984592773" /> <value unit="%" xsi:type="PQ " value="36.9" /> <interpretationCode codeSystem="local" code="*" /> <referenceRange> <observationRange> <text>37.0- 47.0</text> </observationRange> </referenceRange> </ observation> </component> <component> <observation moodCode= "EVN" classCode="OBS"> <templateId root="06.08.840.1.179732.10...4.2 " /> <id nullFlavor="NA" /> <code codeSystem="local" code="PLT " displayName="PLATELET COUNT" /> <statusCode code="completed" /> <effectiveTime value="095819038042" /> <value unit="k/cumm" xsi: type="PQ" value="213" /> <referenceRange> <observationRange > <text>150-450</text> </observationRange> </ referenceRange> </observation> </component> </organizer> </entry > <entry> <organizer moodCode="EVN" classCode="BATTERY"> <templateId root="06.08.840.1.457003.10.20.22.4.1" /> <id nullFlavor="NA" /> <code codeSystem="local" code="SEDWES" displayName="SED RATE WESTERGREN" /> < statusCode code="completed" /> <component> <observation moodCode= "EVN" classCode="OBS"> <templateId root="216.840.1.010813.10.22.4.2 " /> <id nullFlavor="NA" /> <code codeSystem="local" code= "SEDWES" displayName="SED RATE WESTERGREN" /> <statusCode code= "completed" /> <effectiveTime value="446281850989" /> <value unit="mm/hr" xsi:type="PQ" value="12" /> <referenceRange> < observationRange> <text>0-20</text> </observationRange> </referenceRange> </observation> </component> </ organizer> </entry> <entry> <organizer moodCode="EVN" classCode="BATTERY"> <templateId root="2.16.840.1.835661.1022.4.1" /> <id nullFlavor= "NA" /> <code codeSystem="local" code="METABC" displayName="METABOLIC PANEL , COMPREHN" /> <statusCode code="completed" /> <component> < observation moodCode="EVN" classCode="OBS"> <templateId root= "2.16.840.1.930884.10..22.4.2" /> <id nullFlavor="NA" /> < code codeSystem="local" code="K" displayName="POTASSIUM" /> < statusCode code="completed" /> <effectiveTime value="501538694441" /> <value unit="mmol/L" xsi:type="PQ" value="4.1" /> < referenceRange> <observationRange> <text>3.5-5.3</text> </observationRange> </referenceRange> </observation > </component> <component> <observation moodCode="EVN" classCode="OBS"> <templateId root="06.08.840.1.764080.10..22.4.2" /> <id nullFlavor="NA" /> <code codeSystem="local" code="eGFR" displayName="EST GFR (MDRD)" /> <statusCode code="completed" /> <effectiveTime value="" /> <value unit="mL/min" xsi:type ="PQ" value="> 60" /> <referenceRange> <observationRange > <text>> 59</text> </observationRange> </ referenceRange> </observation> </component> <component> <observation moodCode="EVN" classCode="OBS"> <templateId root= "06.08.840.1.271223.10...4.2" /> <id nullFlavor="NA" /> < code codeSystem="local" code="GAP" displayName="ANION GAP" /> < statusCode code="completed" /> <effectiveTime value="" /> <value unit="mmol/L" xsi:type="PQ" value="6" /> < referenceRange> <observationRange> <text>5-15</text> </observationRange> </referenceRange> </observation> </component> <component> <observation moodCode="EVN" classCode= "OBS"> <templateId root="06.08.840.1.085657.10..22.4.2" /> < id nullFlavor="NA" /> <code codeSystem="local" code="eCrCl" displayName ="EST CrCl (CG)" /> <statusCode code="completed" /> < effectiveTime value="683663588835" /> <value unit="mL/min" xsi:type="PQ " value="> 60" /> <referenceRange> <observationRange> <text>> 59</text> </observationRange> </ referenceRange> </observation> </component> <component> <observation moodCode="EVN" classCode="OBS"> <templateId root= "216.840.1.859206.10..22.4.2" /> <id nullFlavor="NA" /> < code codeSystem="local" code="GLU" displayName="GLUCOSE" /> < statusCode code="completed" /> <effectiveTime value="805972077696" /> <value unit="mg/dL" xsi:type="PQ" value="96" /> < referenceRange> <observationRange> <text>70-99</text> </observationRange> </referenceRange> </observation> </component> <component> <observation moodCode="EVN" classCode= "OBS"> <templateId root="06.08.840.1.651516.02.09.22.4.2" /> < id nullFlavor="NA" /> <code codeSystem="local" code="CA" displayName= "CALCIUM" /> <statusCode code="completed" /> <effectiveTime value="" /> <value unit="mg/dL" xsi:type="PQ" value="9.2" / > <referenceRange> <observationRange> <text>8.5 -10.1</text> </observationRange> </referenceRange> </ observation> </component> <component> <observation moodCode= "EVN" classCode="OBS"> <templateId root="06.08.840.1.163010.10...4.2 " /> <id nullFlavor="NA" /> <code codeSystem="local" code="BUN " displayName="BLOOD UREA NITROGEN" /> <statusCode code="completed" /> <effectiveTime value="" /> <value unit="mg/dL" xsi:type="PQ" value="16" /> <referenceRange> < observationRange> <text>7-20</text> </observationRange> </referenceRange> </observation> </component> < component> <observation moodCode="EVN" classCode="OBS"> < templateId root="16.840.1.131204.10..22.4.2" /> <id nullFlavor="NA " /> <code codeSystem="local" code="CREAT" displayName="CREATININE" /> <statusCode code="completed" /> <effectiveTime value= "884487309646" /> <value unit="mg/dL" xsi:type="PQ" value="0.7" /> <referenceRange> <observationRange> <text>0.6-1.0< /text> </observationRange> </referenceRange> </ observation> </component> <component> <observation moodCode= "EVN" classCode="OBS"> <templateId root="06.08.840.1.816412...4.2 " /> <id nullFlavor="NA" /> <code codeSystem="local" code="NA " displayName="SODIUM" /> <statusCode code="completed" /> < effectiveTime value="084727127579" /> <value unit="mmol/L" xsi:type="PQ " value="141" /> <referenceRange> <observationRange> <text>135-148</text> </observationRange> </ referenceRange> </observation> </component> <component> <observation moodCode="EVN" classCode="OBS"> <templateId root= "06.08.840.1.792476.10.20.22.4.2" /> <id nullFlavor="NA" /> < code codeSystem="local" code="CL" displayName="CHLORIDE" /> < statusCode code="completed" /> <effectiveTime value="340596983150" /> <value unit="mmol/L" xsi:type="PQ" value="105" /> < referenceRange> <observationRange> <text>98-110</text> </observationRange> </referenceRange> </observation> </component> <component> <observation moodCode="EVN" classCode ="OBS"> <templateId root="216.840.1.778315.10.4.2" /> < id nullFlavor="NA" /> <code codeSystem="local" code="AST" displayName= "AST/SGOT" /> <statusCode code="completed" /> <effectiveTime value="114797581899" /> <value unit="Units/L" xsi:type="PQ" value="18" /> <referenceRange> <observationRange> <text>10 -37</text> </observationRange> </referenceRange> </ observation> </component> <component> <observation moodCode= "EVN" classCode="OBS"> <templateId root="06.08.840.1.907324.02.09.22.4.2 " /> <id nullFlavor="NA" /> <code codeSystem="local" code="ALT " displayName="ALT/SGPT" /> <statusCode code="completed" /> < effectiveTime value="840514242908" /> <value unit="Units/L" xsi:type= "PQ" value="16" /> <referenceRange> <observationRange> <text>< 66</text> </observationRange> </ referenceRange> </observation> </component> <component> <observation moodCode="EVN" classCode="OBS"> <templateId root= "216.840.1.970560.22.4.2" /> <id nullFlavor="NA" /> < code codeSystem="local" code="CO2" displayName="CARBON DIOXIDE" /> < statusCode code="completed" /> <effectiveTime value="956891136269" /> <value unit="mmol/L" xsi:type="PQ" value="30" /> < referenceRange> <observationRange> <text>21-32</text> </observationRange> </referenceRange> </observation> </component> <component> <observation moodCode="EVN" classCode= "OBS"> <templateId root="216.840.1.554825.10.20.22.4.2" /> < id nullFlavor="NA" /> <code codeSystem="local" code="TP" displayName= "TOTAL PROTEIN" /> <statusCode code="completed" /> < effectiveTime value="826440977066" /> <value unit="gm/dL" xsi:type="PQ " value="8.1" /> <referenceRange> <observationRange> <text>6.4-8.2</text> </observationRange> </ referenceRange> </observation> </component> <component> <observation moodCode="EVN" classCode="OBS"> <templateId root= "16.840.1.973847.10.20.22.4.2" /> <id nullFlavor="NA" /> < code codeSystem="local" code="ALB" displayName="ALBUMIN" /> < statusCode code="completed" /> <effectiveTime value="757366513434" /> <value unit="gm/dL" xsi:type="PQ" value="4.5" /> < referenceRange> <observationRange> <text>3.4-5.0</text> </observationRange> </referenceRange> </observation > </component> <component> <observation moodCode="EVN" classCode="OBS"> <templateId root="06.08.840.1.284485.10.22.4.2" /> <id nullFlavor="NA" /> <code codeSystem="local" code="BILTOT" displayName="BILI TOTAL" /> <statusCode code="completed" /> < effectiveTime value="702200121277" /> <value unit="mg/dL" xsi:type="PQ " value="0.2" /> <referenceRange> <observationRange> <text>0.0-1.0</text> </observationRange> </ referenceRange> </observation> </component> <component> <observation moodCode="EVN" classCode="OBS"> <templateId root= "840.1.352910.22.4.2" /> <id nullFlavor="NA" /> < code codeSystem="local" code="ALKP" displayName="ALKALINE PHOSPHATASE TOTAL" /> <statusCode code="completed" /> <effectiveTime value= "202047995601" /> <value unit="IU/L" xsi:type="PQ" value="64" /> <referenceRange> <observationRange> <text>45-117</ text> </observationRange> </referenceRange> </ observation> </component> </organizer> </entry> <entry> <organizer moodCode="EVN" classCode="BATTERY"> <templateId root= "06.08.840.1.027364.102022.4.1" /> <id nullFlavor="NA" /> <code codeSystem="local" code="CRP" displayName="C REACTIVE PROTEIN" /> < statusCode code="completed" /> <component> <observation moodCode= "EVN" classCode="OBS"> <templateId root="840.1.245385.102022.4.2 " /> <id nullFlavor="NA" /> <code codeSystem="local" code="CRP " displayName="C REACTIVE PROTEIN" /> <statusCode code="completed" /> <effectiveTime value="064625677858" /> <value unit="mg/dL" xsi :type="PQ" value="< 0.2" /> <referenceRange> < observationRange> <text>0.00-0.90</text> </ observationRange> </referenceRange> </observation> </ component> </organizer> </entry> <entry> <organizer moodCode="EVN" classCode="BATTERY"> <templateId root="216.840.1.826394.10..4.1" /> <id nullFlavor="NA" /> <code codeSystem="local" code="PREGU" displayName="UR TEST" /> <statusCode code="completed" /> < component> <observation moodCode="EVN" classCode="OBS"> < templateId root="16.840.1.184264.10...4.2" /> <id nullFlavor="NA " /> <code codeSystem="local" code="PREGU" displayName="UR TEST" /> <statusCode code="completed" /> <effectiveTime value= "547290046066" /> <value unit="" xsi:type="PQ" value="NEGATIVE" /> <referenceRange> <observationRange> <text>NEGATIVE </text> </observationRange> </referenceRange> </ observation> </component> </organizer> </entry> <entry> <organizer moodCode="EVN" classCode="BATTERY"> <templateId root= "16.840.1.195448.10.22.4.1" /> <id nullFlavor="NA" /> <code codeSystem="local" code="UA" displayName="URINALYSIS, ROUTINE" /> < statusCode code="completed" /> <component> <observation moodCode= "EVN" classCode="OBS"> <templateId root="216.840.1.014361.02.09.22.4.2 " /> <id nullFlavor="NA" /> <code codeSystem="local" code= "LEUESU" displayName="UA LEUKOCYTE ESTERASE DIPSTICK" /> <statusCode code="completed" /> <effectiveTime value="" /> < value unit="" xsi:type="PQ" value="TRACE" /> <referenceRange> <observationRange> <text>NEGATIVE</text> </ observationRange> </referenceRange> </observation> </ component> <component> <observation moodCode="EVN" classCode="OBS"> <templateId root="840.1.808389.02.09.224.2" /> <id nullFlavor="NA" /> <code codeSystem="local" code="NITRIU" displayName= "UA NITRITE DIPSTICK" /> <statusCode code="completed" /> < effectiveTime value="" /> <value unit="" xsi:type="PQ" value="NEGATIVE" /> <referenceRange> <observationRange> <text>NEGATIVE</text> </observationRange> </ referenceRange> </observation> </component> <component> <observation moodCode="EVN" classCode="OBS"> <templateId root= "06.08.840.1.236653.02.09.22.4.2" /> <id nullFlavor="NA" /> < code codeSystem="local" code="PROTEIU" displayName="UA PROTEIN DIPSTICK" /> <statusCode code="completed" /> <effectiveTime value= "" /> <value unit="" xsi:type="PQ" value="TRACE" /> <referenceRange> <observationRange> <text>NEGATIVE</ text> </observationRange> </referenceRange> </ observation> </component> <component> <observation moodCode= "EVN" classCode="OBS"> <templateId root="06.08.840.1.833571.10.4.2 " /> <id nullFlavor="NA" /> <code codeSystem="local" code= "DGLUU" displayName="UA GLUCOSE DIPSTICK" /> <statusCode code= "completed" /> <effectiveTime value="707409180113" /> <value unit="" xsi:type="PQ" value="NEGATIVE" /> <referenceRange> < observationRange> <text>NEGATIVE</text> </ observationRange> </referenceRange> </observation> </ component> <component> <observation moodCode="EVN" classCode="OBS"> <templateId root="06.08.840.1.224038.10.4.2" /> <id nullFlavor="NA" /> <code codeSystem="local" code="KETONU" displayName= "UA KETONE DIPSTICK" /> <statusCode code="completed" /> < effectiveTime value="451475688992" /> <value unit="" xsi:type="PQ" value="NEGATIVE" /> <referenceRange> <observationRange> <text>NEGATIVE</text> </observationRange> </ referenceRange> </observation> </component> <component> <observation moodCode="EVN" classCode="OBS"> <templateId root= "06.08.840.1.781267.10.4.2" /> <id nullFlavor="NA" /> < code codeSystem="local" code="UROBILU" displayName="UA UROBILINOGEN DIPSTICK" / > <statusCode code="completed" /> <effectiveTime value= "440493888058" /> <value unit="" xsi:type="PQ" value="NORMAL" /> <referenceRange> <observationRange> <text>NORMAL</ text> </observationRange> </referenceRange> </ observation> </component> <component> <observation moodCode= "EVN" classCode="OBS"> <templateId root="16.840.1.743173.02.09.22.4.2 " /> <id nullFlavor="NA" /> <code codeSystem="local" code= "BILU" displayName="UA BILIRUBIN DIPSTICK" /> <statusCode code= "completed" /> <effectiveTime value="683235500724" /> <value unit="" xsi:type="PQ" value="2+" /> <interpretationCode codeSystem= "local" code="*" /> <referenceRange> <observationRange> <text>NEGATIVE</text> </observationRange> </ referenceRange> </observation> </component> <component> <observation moodCode="EVN" classCode="OBS"> <templateId root= "16.840.1.601305.02.09.22.4.2" /> <id nullFlavor="NA" /> < code codeSystem="local" code="SPENCER" displayName="UA BLOOD DIPSTICK" /> < statusCode code="completed" /> <effectiveTime value="475230976116" /> <value unit="" xsi:type="PQ" value="4+" /> < interpretationCode codeSystem="local" code="*" /> <referenceRange> <observationRange> <text>NEGATIVE</text> </ observationRange> </referenceRange> </observation> </ component> <component> <observation moodCode="EVN" classCode="OBS"> <templateId root="16.840.1.068539.02.09.22.4.2" /> <id nullFlavor="NA" /> <code codeSystem="local" code="SPGRU" displayName= "UA SPECIFIC GRAVITY" /> <statusCode code="completed" /> < effectiveTime value="199043371899" /> <value unit="" xsi:type="PQ" value="1.025" /> <referenceRange> <observationRange> <text>1.015-1.025</text> </observationRange> </ referenceRange> </observation> </component> <component> <observation moodCode="EVN" classCode="OBS"> <templateId root= "840.1.030182.02.09.22.4.2" /> <id nullFlavor="NA" /> < code codeSystem="local" code="FEROZ" displayName="UR PH" /> <statusCode code="completed" /> <effectiveTime value="437451823397" /> < value unit="" xsi:type="PQ" value="6.0" /> <referenceRange> <observationRange> <text>5.0-7.0</text> </ observationRange> </referenceRange> </observation> </ component> </organizer> </entry> <entry> <organizer moodCode="EVN" classCode="BATTERY"> <templateId root="840.1.489128.02.09.22.4.1" /> <id nullFlavor="NA" /> <code codeSystem="local" code="UAMICRO" displayName="UA MICROSCOPIC" /> <statusCode code="completed" /> < component> <observation moodCode="EVN" classCode="OBS"> < templateId root="840.1.500529.02.09.22.4.2" /> <id nullFlavor="NA " /> <code codeSystem="local" code="BACU" displayName="UA BACTERIA" /> <statusCode code="completed" /> <effectiveTime value= "150160069130" /> <value unit="" xsi:type="PQ" value="1+" /> < interpretationCode codeSystem="local" code="*" /> <referenceRange> <observationRange> <text>NEGATIVE</text> </ observationRange> </referenceRange> </observation> </ component> <component> <observation moodCode="EVN" classCode="OBS"> <templateId root="16.840.1.363194.10...4.2" /> <id nullFlavor="NA" /> <code codeSystem="local" code="EPIU" displayName=" UA EPITHELIAL CELLS" /> <statusCode code="completed" /> < effectiveTime value="942522877500" /> <value unit="epi/hpf" xsi:type= "PQ" value="1+" /> <referenceRange> <observationRange> <text>0 - 1+</text> </observationRange> </ referenceRange> </observation> </component> <component> <observation moodCode="EVN" classCode="OBS"> <templateId root= "06.08.840.1.268222.10..22.4.2" /> <id nullFlavor="NA" /> < code codeSystem="local" code="MUCUSU" displayName="UA MUCUS" /> < statusCode code="completed" /> <effectiveTime value="397561068939" /> <value unit="" xsi:type="PQ" value="1+" /> <referenceRange> <observationRange> <text>NEG TO 1+</text> </ observationRange> </referenceRange> </observation> </ component> <component> <observation moodCode="EVN" classCode="OBS"> <templateId root="06.08.840.1.538509.10.20.22.4.2" /> <id nullFlavor="NA" /> <code codeSystem="local" code="RBCU" displayName=" UA RBC" /> <statusCode code="completed" /> <effectiveTime value="533356377695" /> <value unit="rbc/hpf" xsi:type="PQ" value="20- 50" /> <interpretationCode codeSystem="local" code="*" /> < referenceRange> <observationRange> <text>0 - 3</text> </observationRange> </referenceRange> </observation> </component> <component> <observation moodCode="EVN" classCode= "OBS"> <templateId root="216.840.1.605107.10..22.4.2" /> < id nullFlavor="NA" /> <code codeSystem="local" code="UAVOL" displayName ="UA VOLUME FOR EXAM" /> <statusCode code="completed" /> < effectiveTime value="" /> <value unit="mL" xsi:type="PQ" value="12.0" /> <referenceRange> <observationRange> <text>(12mL STD)</text> </observationRange> </ referenceRange> </observation> </component> <component> <observation moodCode="EVN" classCode="OBS"> <templateId root= "16.840.1.528542.10..22.4.2" /> <id nullFlavor="NA" /> < code codeSystem="local" code="WBCU" displayName="UA WBC" /> < statusCode code="completed" /> <effectiveTime value="" /> <value unit="wbc/hpf" xsi:type="PQ" value="2-5" /> < referenceRange> <observationRange> <text>0 - 5</text> </observationRange> </referenceRange> </observation> </component> </organizer> </entry> <entry> <organizer moodCode="EVN " classCode="BATTERY"> <templateId root="16.840.1.733754.10...4.1" / > <id nullFlavor="NA" /> <code codeSystem="local" code="PREGU" displayName="UR TEST" /> <statusCode code="completed" /> < component> <observation moodCode="EVN" classCode="OBS"> < templateId root="06.08.840.1.636336.02.09.22.4.2" /> <id nullFlavor="NA " /> <code codeSystem="local" code="PREGU" displayName="UR TEST" /> <statusCode code="completed" /> <effectiveTime value= "039931272722" /> <value unit="" xsi:type="PQ" value="NEGATIVE" /> <referenceRange> <observationRange> <text>NEGATIVE </text> </observationRange> </referenceRange> </ observation> </component> </organizer> </entry> <entry> <organizer moodCode="EVN" classCode="BATTERY"> <templateId root= "06.08.840.1.586152.02.09.22.4.1" /> <id nullFlavor="NA" /> <code codeSystem="local" code="UA" displayName="URINALYSIS, ROUTINE" /> < statusCode code="completed" /> <component> <observation moodCode= "EVN" classCode="OBS"> <templateId root="16.840.1.063725.10...4.2 " /> <id nullFlavor="NA" /> <code codeSystem="local" code= "LEUESU" displayName="UA LEUKOCYTE ESTERASE DIPSTICK" /> <statusCode code="completed" /> <effectiveTime value="185815186291" /> < value unit="" xsi:type="PQ" value="TRACE" /> <referenceRange> <observationRange> <text>NEGATIVE</text> </ observationRange> </referenceRange> </observation> </ component> <component> <observation moodCode="EVN" classCode="OBS"> <templateId root="06.08.840.1.852826.02.09.22.4.2" /> <id nullFlavor="NA" /> <code codeSystem="local" code="NITRIU" displayName= "UA NITRITE DIPSTICK" /> <statusCode code="completed" /> < effectiveTime value="607656042708" /> <value unit="" xsi:type="PQ" value="NEGATIVE" /> <referenceRange> <observationRange> <text>NEGATIVE</text> </observationRange> </ referenceRange> </observation> </component> <component> <observation moodCode="EVN" classCode="OBS"> <templateId root= "06.08.840.1.858815.02.09.22.4.2" /> <id nullFlavor="NA" /> < code codeSystem="local" code="PROTEIU" displayName="UA PROTEIN DIPSTICK" /> <statusCode code="completed" /> <effectiveTime value= "267392560999" /> <value unit="" xsi:type="PQ" value="TRACE" /> <referenceRange> <observationRange> <text>NEGATIVE</ text> </observationRange> </referenceRange> </ observation> </component> <component> <observation moodCode= "EVN" classCode="OBS"> <templateId root="06.08.840.1.638759.02.09.22.4.2 " /> <id nullFlavor="NA" /> <code codeSystem="local" code= "DGLUU" displayName="UA GLUCOSE DIPSTICK" /> <statusCode code= "completed" /> <effectiveTime value="046901313899" /> <value unit="" xsi:type="PQ" value="NEGATIVE" /> <referenceRange> < observationRange> <text>NEGATIVE</text> </ observationRange> </referenceRange> </observation> </ component> <component> <observation moodCode="EVN" classCode="OBS"> <templateId root="06.08.840.1.990567.10..22.4.2" /> <id nullFlavor="NA" /> <code codeSystem="local" code="KETONU" displayName= "UA KETONE DIPSTICK" /> <statusCode code="completed" /> < effectiveTime value="764478189345" /> <value unit="" xsi:type="PQ" value="NEGATIVE" /> <referenceRange> <observationRange> <text>NEGATIVE</text> </observationRange> </ referenceRange> </observation> </component> <component> <observation moodCode="EVN" classCode="OBS"> <templateId root= "06.08.840.1.138371.10.20.22.4.2" /> <id nullFlavor="NA" /> < code codeSystem="local" code="UROBILU" displayName="UA UROBILINOGEN DIPSTICK" / > <statusCode code="completed" /> <effectiveTime value= "512868521792" /> <value unit="" xsi:type="PQ" value="NORMAL" /> <referenceRange> <observationRange> <text>NORMAL</ text> </observationRange> </referenceRange> </ observation> </component> <component> <observation moodCode= "EVN" classCode="OBS"> <templateId root="06.08.830.1.672709.10..22.4.2 " /> <id nullFlavor="NA" /> <code codeSystem="local" code= "BILU" displayName="UA BILIRUBIN DIPSTICK" /> <statusCode code= "completed" /> <effectiveTime value="175030547234" /> <value unit="" xsi:type="PQ" value="3+" /> <interpretationCode codeSystem= "local" code="*" /> <referenceRange> <observationRange> <text>NEGATIVE</text> </observationRange> </ referenceRange> </observation> </component> <component> <observation moodCode="EVN" classCode="OBS"> <templateId root= "216.840.1.886510.10..22.4.2" /> <id nullFlavor="NA" /> < code codeSystem="local" code="SPENCER" displayName="UA BLOOD DIPSTICK" /> < statusCode code="completed" /> <effectiveTime value="313864538554" /> <value unit="" xsi:type="PQ" value="NEGATIVE" /> < referenceRange> <observationRange> <text>NEGATIVE</text > </observationRange> </referenceRange> </observation > </component> <component> <observation moodCode="EVN" classCode="OBS"> <templateId root="216.840.1.867176.10..22.4.2" /> <id nullFlavor="NA" /> <code codeSystem="local" code="SPGRU" displayName="UA SPECIFIC GRAVITY" /> <statusCode code="completed" /> <effectiveTime value="549846711790" /> <value unit="" xsi:type= "PQ" value="1.015" /> <referenceRange> <observationRange> <text>1.015-1.025</text> </observationRange> </ referenceRange> </observation> </component> <component> <observation moodCode="EVN" classCode="OBS"> <templateId root= "216.840.1.364782.10.4.2" /> <id nullFlavor="NA" /> < code codeSystem="local" code="FEROZ" displayName="UR PH" /> <statusCode code="completed" /> <effectiveTime value="318318579952" /> < value unit="" xsi:type="PQ" value="6.5" /> <referenceRange> <observationRange> <text>5.0-7.0</text> </ observationRange> </referenceRange> </observation> </ component> </organizer> </entry> <entry> <organizer moodCode="EVN" classCode="BATTERY"> <templateId root="216.840.1.386034.22.4.1" /> <id nullFlavor="NA" /> <code codeSystem="local" code="UAMICRO" displayName="UA MICROSCOPIC" /> <statusCode code="completed" /> < component> <observation moodCode="EVN" classCode="OBS"> < templateId root="2.16.840.1.315821.10..22.4.2" /> <id nullFlavor="NA " /> <code codeSystem="local" code="BACU" displayName="UA BACTERIA" /> <statusCode code="completed" /> <effectiveTime value= "532101350912" /> <value unit="" xsi:type="PQ" value="2+" /> < interpretationCode codeSystem="local" code="*" /> <referenceRange> <observationRange> <text>NEGATIVE</text> </ observationRange> </referenceRange> </observation> </ component> <component> <observation moodCode="EVN" classCode="OBS"> <templateId root="216.840.1.342929.10..4.2" /> <id nullFlavor="NA" /> <code codeSystem="local" code="EPIU" displayName=" UA EPITHELIAL CELLS" /> <statusCode code="completed" /> < effectiveTime value="398005856018" /> <value unit="epi/hpf" xsi:type= "PQ" value="2+" /> <interpretationCode codeSystem="local" code="*" /> <referenceRange> <observationRange> <text>0 - 1 +</text> </observationRange> </referenceRange> </ observation> </component> <component> <observation moodCode= "EVN" classCode="OBS"> <templateId root="16.840.1.109219.02.09.22.4.2 " /> <id nullFlavor="NA" /> <code codeSystem="local" code= "MUCUSU" displayName="UA MUCUS" /> <statusCode code="completed" /> <effectiveTime value="365028168102" /> <value unit="" xsi:type= "PQ" value="2+" /> <interpretationCode codeSystem="local" code="*" /> <referenceRange> <observationRange> <text>NEG TO 1+</text> </observationRange> </referenceRange> </ observation> </component> <component> <observation moodCode= "EVN" classCode="OBS"> <templateId root="16.840.1.832681.10..4.2 " /> <id nullFlavor="NA" /> <code codeSystem="local" code= "RBCU" displayName="UA RBC" /> <statusCode code="completed" /> <effectiveTime value="261632258023" /> <value unit="rbc/hpf" xsi:type ="PQ" value="0-3" /> <referenceRange> <observationRange> <text>0 - 3</text> </observationRange> </ referenceRange> </observation> </component> <component> <observation moodCode="EVN" classCode="OBS"> <templateId root= "2.16.840.1.259519.10..22.4.2" /> <id nullFlavor="NA" /> < code codeSystem="local" code="UAVOL" displayName="UA VOLUME FOR EXAM" /> <statusCode code="completed" /> <effectiveTime value="247211299550" /> <value unit="mL" xsi:type="PQ" value="12.0" /> < referenceRange> <observationRange> <text>(12mL STD)</ text> </observationRange> </referenceRange> </ observation> </component> <component> <observation moodCode= "EVN" classCode="OBS"> <templateId root="16.840.1.178285.10...4.2 " /> <id nullFlavor="NA" /> <code codeSystem="local" code= "WBCU" displayName="UA WBC" /> <statusCode code="completed" /> <effectiveTime value="115602373612" /> <value unit="wbc/hpf" xsi:type ="PQ" value="2-5" /> <referenceRange> <observationRange> <text>0 - 5</text> </observationRange> </ referenceRange> </observation> </component> </organizer> </entry > <entry> <organizer moodCode="EVN" classCode="BATTERY"> <templateId root="216.840.1.015487.10..22.4.1" /> <id nullFlavor="NA" /> <code codeSystem="local" code="DIMER" displayName="D-DIMER QUANT" /> <statusCode code="completed" /> <component> <observation moodCode="EVN" classCode="OBS"> <templateId root="216.840.1.365823.10..22.4.2" /> <id nullFlavor="NA" /> <code codeSystem="local" code="DIMER" displayName="D-DIMER QUANT" /> <statusCode code="completed" /> <effectiveTime value="102708424588" /> <value unit="ng/mL" xsi:type= "PQ" value="< 150" /> <referenceRange> <observationRange > <text>0-229</text> </observationRange> </ referenceRange> </observation> </component> </organizer> </entry > <entry> <organizer moodCode="EVN" classCode="BATTERY"> <templateId root="216.840.1.432430.10..22.4.1" /> <id nullFlavor="NA" /> <code codeSystem="local" code="CBCD" displayName="CBC W/DIFF" /> <statusCode code ="completed" /> <component> <observation moodCode="EVN" classCode= "OBS"> <templateId root="216.840.1.896990.10..22.4.2" /> < id nullFlavor="NA" /> <code codeSystem="local" code="EO#" displayName= "EOSINOPHIL #" /> <statusCode code="completed" /> < effectiveTime value="634661588991" /> <value unit="k/cumm" xsi:type="PQ " value="0.1" /> <referenceRange> <observationRange> <text>0.1-0.5</text> </observationRange> </ referenceRange> </observation> </component> <component> <observation moodCode="EVN" classCode="OBS"> <templateId root= "2.16.840.1.158806.10.20.22.4.2" /> <id nullFlavor="NA" /> < code codeSystem="local" code="EO%" displayName="EOSINOPHIL %" /> <statusCode code="completed" /> <effectiveTime value="" /> <value unit="%" xsi:type="PQ" value="1" /> < interpretationCode codeSystem="local" code="*" /> <referenceRange> <observationRange> <text>2-4</text> </ observationRange> </referenceRange> </observation> </ component> <component> <observation moodCode="EVN" classCode="OBS"> <templateId root="216.840.1.133609.02.09.22.4.2" /> <id nullFlavor="NA" /> <code codeSystem="local" code="GR#" displayName= "GRANULOCYTE #" /> <statusCode code="completed" /> < effectiveTime value="" /> <value unit="k/cumm" xsi:type="PQ " value="4.8" /> <referenceRange> <observationRange> <text>2.0-9.0</text> </observationRange> </ referenceRange> </observation> </component> <component> <observation moodCode="EVN" classCode="OBS"> <templateId root= "2.16.840.1.283490.10.2022.4.2" /> <id nullFlavor="NA" /> < code codeSystem="local" code="GR%" displayName="GRANULOCYTE %" /> <statusCode code="completed" /> <effectiveTime value=" " /> <value unit="%" xsi:type="PQ" value="62" /> < referenceRange> <observationRange> <text>50-75</text> </observationRange> </referenceRange> </observation> </component> <component> <observation moodCode="EVN" classCode= "OBS"> <templateId root="216.840.1.095385.10..4.2" /> < id nullFlavor="NA" /> <code codeSystem="local" code="LY#" displayName= "LYMPHOCYTE #" /> <statusCode code="completed" /> < effectiveTime value="" /> <value unit="k/cumm" xsi:type="PQ " value="2.4" /> <referenceRange> <observationRange> <text>1.0-4.0</text> </observationRange> </ referenceRange> </observation> </component> <component> <observation moodCode="EVN" classCode="OBS"> <templateId root= "16.840.1.426859...4.2" /> <id nullFlavor="NA" /> < code codeSystem="local" code="LY%" displayName="LYMPHOCYTE %" /> <statusCode code="completed" /> <effectiveTime value="" /> <value unit="%" xsi:type="PQ" value="31" /> < interpretationCode codeSystem="local" code="*" /> <referenceRange> <observationRange> <text>20-30</text> </ observationRange> </referenceRange> </observation> </ component> <component> <observation moodCode="EVN" classCode="OBS"> <templateId root="216.840.1.198530.02.09.22.4.2" /> <id nullFlavor="NA" /> <code codeSystem="local" code="MCH" displayName= "MEAN CELL HGB" /> <statusCode code="completed" /> < effectiveTime value="" /> <value unit="pg" xsi:type="PQ" value="34.5" /> <interpretationCode codeSystem="local" code="*" /> <referenceRange> <observationRange> <text>27.0- 33.0</text> </observationRange> </referenceRange> </ observation> </component> <component> <observation moodCode= "EVN" classCode="OBS"> <templateId root="2.16.840.1.211181.10.22.4.2 " /> <id nullFlavor="NA" /> <code codeSystem="local" code= "MCHC" displayName="MEAN CELL HGB CONCENTRATION" /> <statusCode code= "completed" /> <effectiveTime value="" /> <value unit="g/dL" xsi:type="PQ" value="33.1" /> <referenceRange> < observationRange> <text>32.0-37.0</text> </ observationRange> </referenceRange> </observation> </ component> <component> <observation moodCode="EVN" classCode="OBS"> <templateId root="2.16.840.1.803492.10..22.4.2" /> <id nullFlavor="NA" /> <code codeSystem="local" code="MCV" displayName= "MEAN CELL VOLUME" /> <statusCode code="completed" /> < effectiveTime value="" /> <value unit="fl" xsi:type="PQ" value="104.2" /> <interpretationCode codeSystem="local" code="*" /> <referenceRange> <observationRange> <text>80.0- 100.0</text> </observationRange> </referenceRange> </ observation> </component> <component> <observation moodCode= "EVN" classCode="OBS"> <templateId root="2.16.840.1.635369.10.4.2 " /> <id nullFlavor="NA" /> <code codeSystem="local" code="MO# " displayName="MONOCYTE #" /> <statusCode code="completed" /> <effectiveTime value="" /> <value unit="k/cumm" xsi:type= "PQ" value="0.5" /> <referenceRange> <observationRange> <text>0.1-1.0</text> </observationRange> </ referenceRange> </observation> </component> <component> <observation moodCode="EVN" classCode="OBS"> <templateId root= "216.840.1.221957.02.09.22.4.2" /> <id nullFlavor="NA" /> < code codeSystem="local" code="MO%" displayName="MONOCYTE %" /> <statusCode code="completed" /> <effectiveTime value="" /> <value unit="%" xsi:type="PQ" value="6" /> < referenceRange> <observationRange> <text>4-6</text> </observationRange> </referenceRange> </observation> </component> <component> <observation moodCode="EVN" classCode= "OBS"> <templateId root="2.16.840.1.484319.02.09.22.4.2" /> < id nullFlavor="NA" /> <code codeSystem="local" code="RBC" displayName= "RED BLOOD CELL" /> <statusCode code="completed" /> < effectiveTime value="" /> <value unit="m/cumm" xsi:type="PQ " value="3.83" /> <interpretationCode codeSystem="local" code="*" /> <referenceRange> <observationRange> <text>4.00- 6.00</text> </observationRange> </referenceRange> </ observation> </component> <component> <observation moodCode= "EVN" classCode="OBS"> <templateId root="2.16.840.1.370640.10..22.4.2 " /> <id nullFlavor="NA" /> <code codeSystem="local" code="RDW " displayName="RED CELL DISTRIBUTION WIDTH" /> <statusCode code= "completed" /> <effectiveTime value="" /> <value unit="%" xsi:type="PQ" value="12.1" /> <referenceRange> <observationRange> <text>11.0-15.6</text> </ observationRange> </referenceRange> </observation> </ component> <component> <observation moodCode="EVN" classCode="OBS"> <templateId root="216.840.1.899233.10...4.2" /> <id nullFlavor="NA" /> <code codeSystem="local" code="WBC" displayName= "WHITE BLOOD CELL" /> <statusCode code="completed" /> < effectiveTime value="" /> <value unit="k/cumm" xsi:type="PQ " value="7.8" /> <referenceRange> <observationRange> <text>5.0-10.0</text> </observationRange> </ referenceRange> </observation> </component> <component> <observation moodCode="EVN" classCode="OBS"> <templateId root= "2.16.840.1.914565.10..4.2" /> <id nullFlavor="NA" /> < code codeSystem="local" code="HGBT" displayName="HEMOGLOBIN" /> < statusCode code="completed" /> <effectiveTime value="" /> <value unit="gm/dL" xsi:type="PQ" value="13.2" /> < referenceRange> <observationRange> <text>12.0-16.0</text > </observationRange> </referenceRange> </observation > </component> <component> <observation moodCode="EVN" classCode="OBS"> <templateId root="2.16.840.1.288420.10.4.2" /> <id nullFlavor="NA" /> <code codeSystem="local" code="HCTT" displayName="HEMATOCRIT" /> <statusCode code="completed" /> < effectiveTime value="" /> <value unit="%" xsi:type="PQ " value="39.9" /> <referenceRange> <observationRange> <text>37.0-47.0</text> </observationRange> </ referenceRange> </observation> </component> <component> <observation moodCode="EVN" classCode="OBS"> <templateId root= "2.16.840.1.823460.10...4.2" /> <id nullFlavor="NA" /> < code codeSystem="local" code="PLT" displayName="PLATELET COUNT" /> < statusCode code="completed" /> <effectiveTime value="" /> <value unit="k/cumm" xsi:type="PQ" value="309" /> < referenceRange> <observationRange> <text>150-450</text> </observationRange> </referenceRange> </observation > </component> </organizer> </entry> <entry> <organizer moodCode= "EVN" classCode="BATTERY"> <templateId root="216.840.1.671774.10...4.1 " /> <id nullFlavor="NA" /> <code codeSystem="local" code="UA" displayName="URINALYSIS, ROUTINE" /> <statusCode code="completed" /> < component> <observation moodCode="EVN" classCode="OBS"> < templateId root="06.08.840.1.712552.02.09.22.4.2" /> <id nullFlavor="NA " /> <code codeSystem="local" code="LEUESU" displayName="UA LEUKOCYTE ESTERASE DIPSTICK" /> <statusCode code="completed" /> < effectiveTime value="" /> <value unit="" xsi:type="PQ" value="TRACE" /> <referenceRange> <observationRange> <text>NEGATIVE</text> </observationRange> </ referenceRange> </observation> </component> <component> <observation moodCode="EVN" classCode="OBS"> <templateId root= "06.08.840.1.954491.02.09.22.4.2" /> <id nullFlavor="NA" /> < code codeSystem="local" code="NITRIU" displayName="UA NITRITE DIPSTICK" /> <statusCode code="completed" /> <effectiveTime value=" " /> <value unit="" xsi:type="PQ" value="NEGATIVE" /> < referenceRange> <observationRange> <text>NEGATIVE</text > </observationRange> </referenceRange> </observation > </component> <component> <observation moodCode="EVN" classCode="OBS"> <templateId root="216.840.1.880523...4.2" /> <id nullFlavor="NA" /> <code codeSystem="local" code="PROTEIU " displayName="UA PROTEIN DIPSTICK" /> <statusCode code="completed" /> <effectiveTime value="" /> <value unit="" xsi: type="PQ" value="1+" /> <interpretationCode codeSystem="local" code="* " /> <referenceRange> <observationRange> <text> NEGATIVE</text> </observationRange> </referenceRange> </observation> </component> <component> <observation moodCode ="EVN" classCode="OBS"> <templateId root= "2.16.840.1.122968.10...4.2" /> <id nullFlavor="NA" /> < code codeSystem="local" code="DGLUU" displayName="UA GLUCOSE DIPSTICK" /> <statusCode code="completed" /> <effectiveTime value=" " /> <value unit="" xsi:type="PQ" value="NEGATIVE" /> < referenceRange> <observationRange> <text>NEGATIVE</text > </observationRange> </referenceRange> </observation > </component> <component> <observation moodCode="EVN" classCode="OBS"> <templateId root="2.16.840.1.732367.10..22.4.2" /> <id nullFlavor="NA" /> <code codeSystem="local" code="KETONU" displayName="UA KETONE DIPSTICK" /> <statusCode code="completed" /> <effectiveTime value="" /> <value unit="" xsi:type= "PQ" value="NEGATIVE" /> <referenceRange> <observationRange > <text>NEGATIVE</text> </observationRange> </ referenceRange> </observation> </component> <component> <observation moodCode="EVN" classCode="OBS"> <templateId root= "216.840.1.491819.10..22.4.2" /> <id nullFlavor="NA" /> < code codeSystem="local" code="UROBILU" displayName="UA UROBILINOGEN DIPSTICK" / > <statusCode code="completed" /> <effectiveTime value= "" /> <value unit="" xsi:type="PQ" value="NORMAL" /> <referenceRange> <observationRange> <text>NORMAL</ text> </observationRange> </referenceRange> </ observation> </component> <component> <observation moodCode= "EVN" classCode="OBS"> <templateId root="216.840.1.742376...4.2 " /> <id nullFlavor="NA" /> <code codeSystem="local" code= "BILU" displayName="UA BILIRUBIN DIPSTICK" /> <statusCode code= "completed" /> <effectiveTime value="" /> <value unit="" xsi:type="PQ" value="NEGATIVE" /> <referenceRange> < observationRange> <text>NEGATIVE</text> </ observationRange> </referenceRange> </observation> </ component> <component> <observation moodCode="EVN" classCode="OBS"> <templateId root="16.840.1.966998.02.09.22.4.2" /> <id nullFlavor="NA" /> <code codeSystem="local" code="SPENCER" displayName="UA BLOOD DIPSTICK" /> <statusCode code="completed" /> < effectiveTime value="" /> <value unit="" xsi:type="PQ" value="NEGATIVE" /> <referenceRange> <observationRange> <text>NEGATIVE</text> </observationRange> </ referenceRange> </observation> </component> <component> <observation moodCode="EVN" classCode="OBS"> <templateId root= "216.840.1.451134.10..22.4.2" /> <id nullFlavor="NA" /> < code codeSystem="local" code="SPGRU" displayName="UA SPECIFIC GRAVITY" /> <statusCode code="completed" /> <effectiveTime value=" " /> <value unit="" xsi:type="PQ" value="1.025" /> < referenceRange> <observationRange> <text>1.015-1.025</ text> </observationRange> </referenceRange> </ observation> </component> <component> <observation moodCode= "EVN" classCode="OBS"> <templateId root="16.840.1.727579.02.09.22.4.2 " /> <id nullFlavor="NA" /> <code codeSystem="local" code="FEROZ " displayName="UR PH" /> <statusCode code="completed" /> < effectiveTime value="" /> <value unit="" xsi:type="PQ" value="5.0" /> <referenceRange> <observationRange> <text>5.0-7.0</text> </observationRange> </ referenceRange> </observation> </component> </organizer> </entry > <entry> <organizer moodCode="EVN" classCode="BATTERY"> <templateId root="216.840.1.012288.10..22.4.1" /> <id nullFlavor="NA" /> <code codeSystem="local" code="UAMICRO" displayName="UA MICROSCOPIC" /> < statusCode code="completed" /> <component> <observation moodCode= "EVN" classCode="OBS"> <templateId root="2.16.840.1.125078.10...4.2 " /> <id nullFlavor="NA" /> <code codeSystem="local" code= "BACU" displayName="UA BACTERIA" /> <statusCode code="completed" /> <effectiveTime value="" /> <value unit="" xsi:type= "PQ" value="1+" /> <interpretationCode codeSystem="local" code="*" /> <referenceRange> <observationRange> <text> NEGATIVE</text> </observationRange> </referenceRange> </observation> </component> <component> <observation moodCode ="EVN" classCode="OBS"> <templateId root= "06.08.840.1.530185.02.09.22.4.2" /> <id nullFlavor="NA" /> < code codeSystem="local" code="EPIU" displayName="UA EPITHELIAL CELLS" /> <statusCode code="completed" /> <effectiveTime value="" /> <value unit="epi/hpf" xsi:type="PQ" value="2+" /> < interpretationCode codeSystem="local" code="*" /> <referenceRange> <observationRange> <text>0 - 1+</text> </ observationRange> </referenceRange> </observation> </ component> <component> <observation moodCode="EVN" classCode="OBS"> <templateId root="06.08.840.1.869988.10..4.2" /> <id nullFlavor="NA" /> <code codeSystem="local" code="MUCUSU" displayName= "UA MUCUS" /> <statusCode code="completed" /> <effectiveTime value="" /> <value unit="" xsi:type="PQ" value="3+" /> <interpretationCode codeSystem="local" code="*" /> < referenceRange> <observationRange> <text>NEG TO 1+</text > </observationRange> </referenceRange> </observation > </component> <component> <observation moodCode="EVN" classCode="OBS"> <templateId root="16.840.1.567065.10..22.4.2" /> <id nullFlavor="NA" /> <code codeSystem="local" code="UAVOL" displayName="UA VOLUME FOR EXAM" /> <statusCode code="completed" /> <effectiveTime value="" /> <value unit="mL" xsi:type ="PQ" value="12.0" /> <referenceRange> <observationRange> <text>(12mL STD)</text> </observationRange> </ referenceRange> </observation> </component> <component> <observation moodCode="EVN" classCode="OBS"> <templateId root= "06.08.840.1.377998.10...4.2" /> <id nullFlavor="NA" /> < code codeSystem="local" code="WBCU" displayName="UA WBC" /> < statusCode code="completed" /> <effectiveTime value="" /> <value unit="wbc/hpf" xsi:type="PQ" value="0-1" /> < referenceRange> <observationRange> <text>0 - 5</text> </observationRange> </referenceRange> </observation> </component> </organizer> </entry> <entry> <organizer moodCode="EVN " classCode="BATTERY"> <templateId root="06.08.840.1.449022.10.20.22.4.1" / > <id nullFlavor="NA" /> <code codeSystem="local" code="PREGU" displayName="UR TEST" /> <statusCode code="completed" /> < component> <observation moodCode="EVN" classCode="OBS"> < templateId root="2.16.840.1.883673.10..22.4.2" /> <id nullFlavor="NA " /> <code codeSystem="local" code="PREGU" displayName="UR TEST" /> <statusCode code="completed" /> <effectiveTime value= "" /> <value unit="" xsi:type="PQ" value="NEGATIVE" /> <referenceRange> <observationRange> <text>NEGATIVE </text> </observationRange> </referenceRange> </ observation> </component> </organizer> </entry> <entry> <organizer moodCode="EVN" classCode="BATTERY"> <templateId root= "2.16.840.1.021100.10..22.4.1" /> <id nullFlavor="NA" /> <code codeSystem="local" code="METABC" displayName="METABOLIC PANEL, COMPREHN" /> <statusCode code="completed" /> <component> <observation moodCode= "EVN" classCode="OBS"> <templateId root="2.16.840.1.691052.10..22.4.2 " /> <id nullFlavor="NA" /> <code codeSystem="local" code="K" displayName="POTASSIUM" /> <statusCode code="completed" /> < effectiveTime value="" /> <value unit="mmol/L" xsi:type="PQ " value="3.5" /> <referenceRange> <observationRange> <text>3.5-5.3</text> </observationRange> </ referenceRange> </observation> </component> <component> <observation moodCode="EVN" classCode="OBS"> <templateId root= "216.840.1.097608.10..22.4.2" /> <id nullFlavor="NA" /> < code codeSystem="local" code="eGFR" displayName="EST GFR (MDRD)" /> < statusCode code="completed" /> <effectiveTime value="" /> <value unit="mL/min" xsi:type="PQ" value="> 60" /> < referenceRange> <observationRange> <text>> 59</text> </observationRange> </referenceRange> </observation > </component> <component> <observation moodCode="EVN" classCode="OBS"> <templateId root="216.840.1.286492.10...4.2" /> <id nullFlavor="NA" /> <code codeSystem="local" code="GAP" displayName="ANION GAP" /> <statusCode code="completed" /> < effectiveTime value="" /> <value unit="mmol/L" xsi:type="PQ " value="9" /> <referenceRange> <observationRange> <text>5-15</text> </observationRange> </referenceRange > </observation> </component> <component> <observation moodCode="EVN" classCode="OBS"> <templateId root= "216.840.1.610758.10..4.2" /> <id nullFlavor="NA" /> < code codeSystem="local" code="eCrCl" displayName="EST CrCl (CG)" /> < statusCode code="completed" /> <effectiveTime value="" /> <value unit="mL/min" xsi:type="PQ" value="> 60" /> < referenceRange> <observationRange> <text>> 59</text> </observationRange> </referenceRange> </observation > </component> <component> <observation moodCode="EVN" classCode="OBS"> <templateId root="16.840.1.802288.10..4.2" /> <id nullFlavor="NA" /> <code codeSystem="local" code="GLU" displayName="GLUCOSE" /> <statusCode code="completed" /> < effectiveTime value="" /> <value unit="mg/dL" xsi:type="PQ " value="79" /> <referenceRange> <observationRange> <text>70-99</text> </observationRange> </ referenceRange> </observation> </component> <component> <observation moodCode="EVN" classCode="OBS"> <templateId root= "06.08.840.1.855552.02.09.22.4.2" /> <id nullFlavor="NA" /> < code codeSystem="local" code="CA" displayName="CALCIUM" /> <statusCode code="completed" /> <effectiveTime value="" /> < value unit="mg/dL" xsi:type="PQ" value="9.2" /> <referenceRange> <observationRange> <text>8.5-10.1</text> </ observationRange> </referenceRange> </observation> </ component> <component> <observation moodCode="EVN" classCode="OBS"> <templateId root="06.08.840.1.901341....4.2" /> <id nullFlavor="NA" /> <code codeSystem="local" code="BUN" displayName= "BLOOD UREA NITROGEN" /> <statusCode code="completed" /> < effectiveTime value="" /> <value unit="mg/dL" xsi:type="PQ " value="14" /> <referenceRange> <observationRange> <text>7-20</text> </observationRange> </referenceRange > </observation> </component> <component> <observation moodCode="EVN" classCode="OBS"> <templateId root= "216.840.1.716048.10..22.4.2" /> <id nullFlavor="NA" /> < code codeSystem="local" code="CREAT" displayName="CREATININE" /> < statusCode code="completed" /> <effectiveTime value="" /> <value unit="mg/dL" xsi:type="PQ" value="0.7" /> < referenceRange> <observationRange> <text>0.6-1.0</text> </observationRange> </referenceRange> </observation > </component> <component> <observation moodCode="EVN" classCode="OBS"> <templateId root="16.840.1.596668...4.2" /> <id nullFlavor="NA" /> <code codeSystem="local" code="NA" displayName="SODIUM" /> <statusCode code="completed" /> < effectiveTime value="" /> <value unit="mmol/L" xsi:type="PQ " value="141" /> <referenceRange> <observationRange> <text>135-148</text> </observationRange> </ referenceRange> </observation> </component> <component> <observation moodCode="EVN" classCode="OBS"> <templateId root= "16.840.1.351903...4.2" /> <id nullFlavor="NA" /> < code codeSystem="local" code="CL" displayName="CHLORIDE" /> < statusCode code="completed" /> <effectiveTime value="" /> <value unit="mmol/L" xsi:type="PQ" value="103" /> < referenceRange> <observationRange> <text>98-110</text> </observationRange> </referenceRange> </observation> </component> <component> <observation moodCode="EVN" classCode ="OBS"> <templateId root="216.840.1.374657.10..22.4.2" /> < id nullFlavor="NA" /> <code codeSystem="local" code="AST" displayName= "AST/SGOT" /> <statusCode code="completed" /> <effectiveTime value="" /> <value unit="Units/L" xsi:type="PQ" value="12" /> <referenceRange> <observationRange> <text>10 -37</text> </observationRange> </referenceRange> </ observation> </component> <component> <observation moodCode= "EVN" classCode="OBS"> <templateId root="16.840.1.042248.10.22.4.2 " /> <id nullFlavor="NA" /> <code codeSystem="local" code="ALT " displayName="ALT/SGPT" /> <statusCode code="completed" /> < effectiveTime value="" /> <value unit="Units/L" xsi:type= "PQ" value="16" /> <referenceRange> <observationRange> <text>< 66</text> </observationRange> </ referenceRange> </observation> </component> <component> <observation moodCode="EVN" classCode="OBS"> <templateId root= "216.840.1.286331.10..22.4.2" /> <id nullFlavor="NA" /> < code codeSystem="local" code="CO2" displayName="CARBON DIOXIDE" /> < statusCode code="completed" /> <effectiveTime value="" /> <value unit="mmol/L" xsi:type="PQ" value="29" /> < referenceRange> <observationRange> <text>21-32</text> </observationRange> </referenceRange> </observation> </component> <component> <observation moodCode="EVN" classCode= "OBS"> <templateId root="16.840.1.987611.10..22.4.2" /> < id nullFlavor="NA" /> <code codeSystem="local" code="TP" displayName= "TOTAL PROTEIN" /> <statusCode code="completed" /> < effectiveTime value="" /> <value unit="gm/dL" xsi:type="PQ " value="8.2" /> <referenceRange> <observationRange> <text>6.4-8.2</text> </observationRange> </ referenceRange> </observation> </component> <component> <observation moodCode="EVN" classCode="OBS"> <templateId root= "06.08.840.1.659154.10..22.4.2" /> <id nullFlavor="NA" /> < code codeSystem="local" code="ALB" displayName="ALBUMIN" /> < statusCode code="completed" /> <effectiveTime value="" /> <value unit="gm/dL" xsi:type="PQ" value="4.6" /> < referenceRange> <observationRange> <text>3.4-5.0</text> </observationRange> </referenceRange> </observation > </component> <component> <observation moodCode="EVN" classCode="OBS"> <templateId root="06.08.840.1.288224.02.09.22.4.2" /> <id nullFlavor="NA" /> <code codeSystem="local" code="BILTOT" displayName="BILI TOTAL" /> <statusCode code="completed" /> < effectiveTime value="" /> <value unit="mg/dL" xsi:type="PQ " value="0.3" /> <referenceRange> <observationRange> <text>0.0-1.0</text> </observationRange> </ referenceRange> </observation> </component> <component> <observation moodCode="EVN" classCode="OBS"> <templateId root= "16.840.1.819622.02.09.224.2" /> <id nullFlavor="NA" /> < code codeSystem="local" code="ALKP" displayName="ALKALINE PHOSPHATASE TOTAL" /> <statusCode code="completed" /> <effectiveTime value= "" /> <value unit="IU/L" xsi:type="PQ" value="55" /> <referenceRange> <observationRange> <text>45-117</ text> </observationRange> </referenceRange> </ observation> </component> </organizer> </entry> <entry> <organizer moodCode="EVN" classCode="BATTERY"> <templateId root= "16.840.1.336419.02.09.22.4.1" /> <id nullFlavor="NA" /> <code codeSystem="local" code="LIP" displayName="LIPASE" /> <statusCode code= "completed" /> <component> <observation moodCode="EVN" classCode= "OBS"> <templateId root="16.840.1.964799.02.09.22.4.2" /> < id nullFlavor="NA" /> <code codeSystem="local" code="LIP" displayName= "LIPASE" /> <statusCode code="completed" /> <effectiveTime value="196604927612" /> <value unit="Units/L" xsi:type="PQ" value="117 " /> <referenceRange> <observationRange> <text> 73-393</text> </observationRange> </referenceRange> < /observation> </component> </organizer> </entry> <entry> < organizer moodCode="EVN" classCode="BATTERY"> <templateId root= "216.840.1.493167.10..22.4.1" /> <id nullFlavor="NA" /> <code codeSystem="local" code="CBCWD" displayName="CBC With Platelet and Differential " /> <statusCode code="completed" /> <component> <observation moodCode="EVN" classCode="OBS"> <templateId root= "2.16.840.1.611231.10..22.4.2" /> <id nullFlavor="NA" /> < code codeSystem="local" code="ABASR" displayName="Absolute Basophils" /> <statusCode code="completed" /> <effectiveTime value="885588115774" /> <value unit="10*3/uL" xsi:type="PQ" value="0.01" /> < referenceRange> <observationRange> <text>0.00-0.20</text > </observationRange> </referenceRange> </observation > </component> <component> <observation moodCode="EVN" classCode="OBS"> <templateId root="216.840.1.397471.10..22.4.2" /> <id nullFlavor="NA" /> <code codeSystem="local" code="AEOSR" displayName="Absolute Eosinophils" /> <statusCode code="completed" /> <effectiveTime value="023069047910" /> <value unit="" xsi:type="PQ" value="0.03" /> <referenceRange> < observationRange> <text>0.00-0.50</text> </ observationRange> </referenceRange> </observation> </ component> <component> <observation moodCode="EVN" classCode="OBS"> <templateId root="216.840.1.914473.10...4.2" /> <id nullFlavor="NA" /> <code codeSystem="local" code="ALYMR" displayName= "Absolute Lymphocytes" /> <statusCode code="completed" /> < effectiveTime value="909419123732" /> <value unit="" xsi:type= "PQ" value="2.39" /> <referenceRange> <observationRange> <text>0.80-3.30</text> </observationRange> </ referenceRange> </observation> </component> <component> <observation moodCode="EVN" classCode="OBS"> <templateId root= "16.840.1.793123...4.2" /> <id nullFlavor="NA" /> < code codeSystem="local" code="AMONR" displayName="Absolute Monocytes" /> <statusCode code="completed" /> <effectiveTime value="050995654166" /> <value unit="10uL" xsi:type="PQ" value="0.49" /> < referenceRange> <observationRange> <text>0.30-1.00</text > </observationRange> </referenceRange> </observation > </component> <component> <observation moodCode="EVN" classCode="OBS"> <templateId root="216.840.1.820598.10..22.4.2" /> <id nullFlavor="NA" /> <code codeSystem="local" code="ASEGR" displayName="Absolute Neutrophils" /> <statusCode code="completed" /> <effectiveTime value="597099984042" /> <value unit="10*3/uL" xsi:type="PQ" value="5.31" /> <referenceRange> < observationRange> <text>1.90-7.00</text> </ observationRange> </referenceRange> </observation> </ component> <component> <observation moodCode="EVN" classCode="OBS"> <templateId root="216.840.1.604518.10..22.4.2" /> <id nullFlavor="NA" /> <code codeSystem="local" code="BASOR" displayName= "Basophils" /> <statusCode code="completed" /> <effectiveTime value="095984904348" /> <value unit="%" xsi:type="PQ" value="0" /> <referenceRange> <observationRange> <text>0-2< /text> </observationRange> </referenceRange> </ observation> </component> <component> <observation moodCode= "EVN" classCode="OBS"> <templateId root="216.840.1.913933.10..22.4.2 " /> <id nullFlavor="NA" /> <code codeSystem="local" code= "EOSR" displayName="Eosinophils" /> <statusCode code="completed" /> <effectiveTime value="662494217431" /> <value unit="%" xsi: type="PQ" value="0" /> <referenceRange> <observationRange> <text>0-4</text> </observationRange> </ referenceRange> </observation> </component> <component> <observation moodCode="EVN" classCode="OBS"> <templateId root= "216.840.1.472281.10.20.22.4.2" /> <id nullFlavor="NA" /> < code codeSystem="local" code="HCT" displayName="HCT" /> <statusCode code="completed" /> <effectiveTime value="339846397937" /> < value unit="%" xsi:type="PQ" value="44.1" /> <referenceRange> <observationRange> <text>37.0-47.0</text> </ observationRange> </referenceRange> </observation> </ component> <component> <observation moodCode="EVN" classCode="OBS"> <templateId root="216.840.1.560752.10...4.2" /> <id nullFlavor="NA" /> <code codeSystem="local" code="HGB" displayName="HGB " /> <statusCode code="completed" /> <effectiveTime value= "401407154483" /> <value unit="g/dL" xsi:type="PQ" value="14.7" /> <referenceRange> <observationRange> <text>12.0- 16.0</text> </observationRange> </referenceRange> </ observation> </component> <component> <observation moodCode= "EVN" classCode="OBS"> <templateId root="06.08.840.1.281652.10.20.22.4.2 " /> <id nullFlavor="NA" /> <code codeSystem="local" code= "IMGA" displayName="Immature Granulocytes" /> <statusCode code= "completed" /> <effectiveTime value="760071354245" /> <value unit="%" xsi:type="PQ" value="0.4" /> <referenceRange> < observationRange> <text>0.0-1.0</text> </ observationRange> </referenceRange> </observation> </ component> <component> <observation moodCode="EVN" classCode="OBS"> <templateId root="216.840.1.308641.10..4.2" /> <id nullFlavor="NA" /> <code codeSystem="local" code="LYMPR" displayName= "Lymphocytes" /> <statusCode code="completed" /> < effectiveTime value="278016805385" /> <value unit="%" xsi:type="PQ " value="29" /> <referenceRange> <observationRange> <text>20-46</text> </observationRange> </ referenceRange> </observation> </component> <component> <observation moodCode="EVN" classCode="OBS"> <templateId root= "216.840.1.246321.10.4.2" /> <id nullFlavor="NA" /> < code codeSystem="local" code="MCH" displayName="MCH" /> <statusCode code="completed" /> <effectiveTime value="290231768095" /> < value unit="pg" xsi:type="PQ" value="34.2" /> <interpretationCode codeSystem="local" code="*" /> <referenceRange> < observationRange> <text>27.0-32.0</text> </ observationRange> </referenceRange> </observation> </ component> <component> <observation moodCode="EVN" classCode="OBS"> <templateId root="216.840.1.702166.10..4.2" /> <id nullFlavor="NA" /> <code codeSystem="local" code="MCHC" displayName= "MCHC" /> <statusCode code="completed" /> <effectiveTime value ="624753792539" /> <value unit="g/dL" xsi:type="PQ" value="33.3" /> <referenceRange> <observationRange> <text>32.0- 36.0</text> </observationRange> </referenceRange> </ observation> </component> <component> <observation moodCode= "EVN" classCode="OBS"> <templateId root="06.08.840.1.909612.02.09.22.4.2 " /> <id nullFlavor="NA" /> <code codeSystem="local" code="MCV " displayName="MCV" /> <statusCode code="completed" /> < effectiveTime value="716034515235" /> <value unit="fL" xsi:type="PQ" value="102.6" /> <interpretationCode codeSystem="local" code="*" /> <referenceRange> <observationRange> <text>82.0- 99.0</text> </observationRange> </referenceRange> </ observation> </component> <component> <observation moodCode= "EVN" classCode="OBS"> <templateId root="06.08.840.1.364746.02.09.22.4.2 " /> <id nullFlavor="NA" /> <code codeSystem="local" code= "MONOR" displayName="Monocytes" /> <statusCode code="completed" /> <effectiveTime value="247824672419" /> <value unit="%" xsi: type="PQ" value="6" /> <referenceRange> <observationRange> <text>4-11</text> </observationRange> </ referenceRange> </observation> </component> <component> <observation moodCode="EVN" classCode="OBS"> <templateId root= "06.08.840.1.177513...4.2" /> <id nullFlavor="NA" /> < code codeSystem="local" code="MPV" displayName="MPV" /> <statusCode code="completed" /> <effectiveTime value="314394548658" /> < value unit="fL" xsi:type="PQ" value="9.2" /> <interpretationCode codeSystem="local" code="*" /> <referenceRange> < observationRange> <text>9.4-12.4</text> </ observationRange> </referenceRange> </observation> </ component> <component> <observation moodCode="EVN" classCode="OBS"> <templateId root="2.16.840.1.299876.02.09.22.4.2" /> <id nullFlavor="NA" /> <code codeSystem="local" code="SEGR" displayName= "Neutrophils" /> <statusCode code="completed" /> < effectiveTime value="333355359695" /> <value unit="%" xsi:type="PQ " value="64" /> <referenceRange> <observationRange> <text>51-75</text> </observationRange> </ referenceRange> </observation> </component> <component> <observation moodCode="EVN" classCode="OBS"> <templateId root= "216.840.1.119571.02.09.22.4.2" /> <id nullFlavor="NA" /> < code codeSystem="local" code="NRBCA" displayName="Nucleated RBC Automated" /> <statusCode code="completed" /> <effectiveTime value= "604682942021" /> <value unit="/100WBC" xsi:type="PQ" value="0.0" /> <referenceRange> <observationRange> <text /> </observationRange> </referenceRange> </observation> </component> <component> <observation moodCode="EVN" classCode= "OBS"> <templateId root="16.840.1.559425.10.20.22.4.2" /> < id nullFlavor="NA" /> <code codeSystem="local" code="PLT" displayName= "Platelet Count" /> <statusCode code="completed" /> < effectiveTime value="" /> <value unit="K/uL" xsi:type="PQ" value="290" /> <referenceRange> <observationRange> <text>150-400</text> </observationRange> </ referenceRange> </observation> </component> <component> <observation moodCode="EVN" classCode="OBS"> <templateId root= "06.08.840.1.183602..22.4.2" /> <id nullFlavor="NA" /> < code codeSystem="local" code="RBC" displayName="RBC" /> <statusCode code="completed" /> <effectiveTime value="" /> < value unit="10*6/uL" xsi:type="PQ" value="4.30" /> <referenceRange> <observationRange> <text>4.00-5.20</text> </ observationRange> </referenceRange> </observation> </ component> <component> <observation moodCode="EVN" classCode="OBS"> <templateId root="06.08.840.1.232052.10.20.22.4.2" /> <id nullFlavor="NA" /> <code codeSystem="local" code="RDW" displayName="RDW " /> <statusCode code="completed" /> <effectiveTime value= "551449625212" /> <value unit="%" xsi:type="PQ" value="12.7" /> <referenceRange> <observationRange> <text>11.5- 14.5</text> </observationRange> </referenceRange> </ observation> </component> <component> <observation moodCode= "EVN" classCode="OBS"> <templateId root="06.08.840.1.175538.10.20.22.4.2 " /> <id nullFlavor="NA" /> <code codeSystem="local" code= "WBCIR" displayName="WBC" /> <statusCode code="completed" /> < effectiveTime value="595666652776" /> <value unit="K/uL" xsi:type="PQ" value="8.3" /> <referenceRange> <observationRange> <text>4.8-10.8</text> </observationRange> </ referenceRange> </observation> </component> </organizer> </entry > <entry> <organizer moodCode="EVN" classCode="BATTERY"> <templateId root="16.840.1.592824.10..22.4.1" /> <id nullFlavor="NA" /> <code codeSystem="local" code="CMP" displayName="Comprehensive Metabolic Panel (CMP)" /> <statusCode code="completed" /> <component> <observation moodCode="EVN" classCode="OBS"> <templateId root= "06.08.840.1.643156.10.20.22.4.2" /> <id nullFlavor="NA" /> < code codeSystem="local" code="ALB" displayName="Albumin" /> < statusCode code="completed" /> <effectiveTime value="986606392507" /> <value unit="g/dL" xsi:type="PQ" value="4.9" /> < interpretationCode codeSystem="local" code="*" /> <referenceRange> <observationRange> <text>3.5-4.8</text> </ observationRange> </referenceRange> </observation> </ component> <component> <observation moodCode="EVN" classCode="OBS"> <templateId root="216.840.1.980609.10..4.2" /> <id nullFlavor="NA" /> <code codeSystem="local" code="ALP" displayName= "Alkaline Phosphatase" /> <statusCode code="completed" /> < effectiveTime value="055853514191" /> <value unit="U/L" xsi:type="PQ" value="59" /> <referenceRange> <observationRange> <text>26-104</text> </observationRange> </referenceRange > </observation> </component> <component> <observation moodCode="EVN" classCode="OBS"> <templateId root= "216.840.1.617566.02.09.22.4.2" /> <id nullFlavor="NA" /> < code codeSystem="local" code="ALT" displayName="ALT (SGPT)" /> < statusCode code="completed" /> <effectiveTime value="" /> <value unit="U/L" xsi:type="PQ" value="12" /> < interpretationCode codeSystem="local" code="*" /> <referenceRange> <observationRange> <text>14-54</text> </ observationRange> </referenceRange> </observation> </ component> <component> <observation moodCode="EVN" classCode="OBS"> <templateId root="216.840.1.538836.10...4.2" /> <id nullFlavor="NA" /> <code codeSystem="local" code="AGAP" displayName= "Anion Gap" /> <statusCode code="completed" /> <effectiveTime value="249197160471" /> <value unit="NA" xsi:type="PQ" value="10" /> <referenceRange> <observationRange> <text>3-20</ text> </observationRange> </referenceRange> </ observation> </component> <component> <observation moodCode= "EVN" classCode="OBS"> <templateId root="06.08.840.1.567319.10..22.4.2 " /> <id nullFlavor="NA" /> <code codeSystem="local" code="AST " displayName="AST (SGOT)" /> <statusCode code="completed" /> <effectiveTime value="026897264173" /> <value unit="U/L" xsi:type="PQ" value="17" /> <referenceRange> <observationRange> <text>15-41</text> </observationRange> </referenceRange > </observation> </component> <component> <observation moodCode="EVN" classCode="OBS"> <templateId root= "06.08.840.1.699319...4.2" /> <id nullFlavor="NA" /> < code codeSystem="local" code="BILIT" displayName="Bilirubin Total" /> < statusCode code="completed" /> <effectiveTime value="117295281786" /> <value unit="mg/dL" xsi:type="PQ" value="0.4" /> < referenceRange> <observationRange> <text>0.2-1.2</text> </observationRange> </referenceRange> </observation > </component> <component> <observation moodCode="EVN" classCode="OBS"> <templateId root="06.08.840.1.515554.10..22.4.2" /> <id nullFlavor="NA" /> <code codeSystem="local" code="BUN" displayName="BUN" /> <statusCode code="completed" /> < effectiveTime value="283579601216" /> <value unit="mg/dL" xsi:type="PQ " value="7" /> <referenceRange> <observationRange> <text>4-20</text> </observationRange> </referenceRange > </observation> </component> <component> <observation moodCode="EVN" classCode="OBS"> <templateId root= "06.08.840.1.110221.10.22.4.2" /> <id nullFlavor="NA" /> < code codeSystem="local" code="CA" displayName="Calcium" /> <statusCode code="completed" /> <effectiveTime value="238477276153" /> < value unit="mg/dL" xsi:type="PQ" value="9.5" /> <referenceRange> <observationRange> <text>8.6-10.0</text> </ observationRange> </referenceRange> </observation> </ component> <component> <observation moodCode="EVN" classCode="OBS"> <templateId root="06.08.840.1.530612...22.4.2" /> <id nullFlavor="NA" /> <code codeSystem="local" code="CL" displayName= "Chloride" /> <statusCode code="completed" /> <effectiveTime value="010484641623" /> <value unit="mEq/L" xsi:type="PQ" value="102" / > <referenceRange> <observationRange> <text>99- 109</text> </observationRange> </referenceRange> </ observation> </component> <component> <observation moodCode= "EVN" classCode="OBS"> <templateId root="06.08.840.1.439053.02.09.22.4.2 " /> <id nullFlavor="NA" /> <code codeSystem="local" code="CO2 " displayName="CO2" /> <statusCode code="completed" /> < effectiveTime value="[id number]" /> <value unit="mEq/L" xsi:type="PQ " value="24" /> <referenceRange> <observationRange> <text>22-32</text> </observationRange> </ referenceRange> </observation> </component> <component> <observation moodCode="EVN" classCode="OBS"> <templateId root= "216.840.1.817470.02.09.22.4.2" /> <id nullFlavor="NA" /> < code codeSystem="local" code="CREAT" displayName="Creatinine" /> < statusCode code="completed" /> <effectiveTime value="" /> <value unit="mg/dL" xsi:type="PQ" value="0.61" /> < referenceRange> <observationRange> <text>0.44-1.03</text > </observationRange> </referenceRange> </observation > </component> <component> <observation moodCode="EVN" classCode="OBS"> <templateId root="216.840.1.777093....4.2" /> <id nullFlavor="NA" /> <code codeSystem="local" code="GLOB" displayName="Globulin" /> <statusCode code="completed" /> < effectiveTime value="311667522175" /> <value unit="g/dL" xsi:type="PQ" value="2.9" /> <referenceRange> <observationRange> <text>1.9-4.3</text> </observationRange> </ referenceRange> </observation> </component> <component> <observation moodCode="EVN" classCode="OBS"> <templateId root= "16.840.1.850550.10.20.22.4.2" /> <id nullFlavor="NA" /> < code codeSystem="local" code="GLU" displayName="Glucose" /> < statusCode code="completed" /> <effectiveTime value="635156827323" /> <value unit="mg/dL" xsi:type="PQ" value="114" /> < interpretationCode codeSystem="local" code="*" /> <referenceRange> <observationRange> <text>70-100</text> </ observationRange> </referenceRange> </observation> </ component> <component> <observation moodCode="EVN" classCode="OBS"> <templateId root="06.08.840.1.071937..22.4.2" /> <id nullFlavor="NA" /> <code codeSystem="local" code="K" displayName= "Potassium" /> <statusCode code="completed" /> <effectiveTime value="676532802340" /> <value unit="mEq/L" xsi:type="PQ" value="3.6" / > <referenceRange> <observationRange> <text>3.6 -5.1</text> </observationRange> </referenceRange> </ observation> </component> <component> <observation moodCode= "EVN" classCode="OBS"> <templateId root="06.08.840.1.915048.10.20.22.4.2 " /> <id nullFlavor="NA" /> <code codeSystem="local" code="TP " displayName="Protein" /> <statusCode code="completed" /> < effectiveTime value="521551356880" /> <value unit="g/dL" xsi:type="PQ" value="7.8" /> <referenceRange> <observationRange> <text>6.1-7.9</text> </observationRange> </ referenceRange> </observation> </component> <component> <observation moodCode="EVN" classCode="OBS"> <templateId root= "216.840.1.535014.10.20.22.4.2" /> <id nullFlavor="NA" /> < code codeSystem="local" code="NA" displayName="Sodium" /> <statusCode code="completed" /> <effectiveTime value="768314062674" /> < value unit="mEq/L" xsi:type="PQ" value="136" /> <referenceRange> <observationRange> <text>136-144</text> </ observationRange> </referenceRange> </observation> </ component> </organizer> </entry> <entry> <organizer moodCode="EVN" classCode="BATTERY"> <templateId root="216.840.1.461828.10.20.22.4.1" /> <id nullFlavor="NA" /> <code codeSystem="local" code="GFR" displayName ="eGFR" /> <statusCode code="completed" /> <component> < observation moodCode="EVN" classCode="OBS"> <templateId root= "16.840.1.210795.10.20.22.4.2" /> <id nullFlavor="NA" /> < code codeSystem="local" code="GFR" displayName="eGFR" /> <statusCode code="completed" /> <effectiveTime value="184268266188" /> < value unit="NA" xsi:type="PQ" value=">60" /> <referenceRange> <observationRange> <text>>60</text> </ observationRange> </referenceRange> </observation> </ component> </organizer> </entry> <entry> <organizer moodCode="EVN" classCode="BATTERY"> <templateId root="06.08.840.1.823333.10..4.1" /> <id nullFlavor="NA" /> <code codeSystem="local" code="TROP" displayName="Troponin" /> <statusCode code="completed" /> <component> <observation moodCode="EVN" classCode="OBS"> <templateId root= "840.1.875537.02.09.22.4.2" /> <id nullFlavor="NA" /> < code codeSystem="local" code="TROP" displayName="Troponin" /> < statusCode code="completed" /> <effectiveTime value="294042765438" /> <value unit="ng/mL" xsi:type="PQ" value="<0.05" /> < referenceRange> <observationRange> <text><0.06</text > </observationRange> </referenceRange> </observation > </component> </organizer> </entry> <entry> <organizer moodCode= "EVN" classCode="BATTERY"> <templateId root="840.1.476399.02.09.22.4.1 " /> <id nullFlavor="NA" /> <code codeSystem="local" code="TSHR" displayName="TSH with Reflex Free T4" /> <statusCode code="completed" /> <component> <observation moodCode="EVN" classCode="OBS"> < templateId root="06.08.840.1.647436.02.09.22.4.2" /> <id nullFlavor="NA " /> <code codeSystem="local" code="TSHR" displayName="TSH with Reflex Free T4" /> <statusCode code="completed" /> <effectiveTime value="463498743515" /> <value unit="uIU/mL" xsi:type="PQ" value="1.50 " /> <referenceRange> <observationRange> <text> 0.35-5.50</text> </observationRange> </referenceRange> </observation> </component> </organizer> </entry> <entry> < organizer moodCode="EVN" classCode="BATTERY"> <templateId root= "16.840.1.001471.10..22.4.1" /> <id nullFlavor="NA" /> <code codeSystem="local" code="PREGN" displayName=" Screen, Urine NPT" /> <statusCode code="completed" /> <component> <observation moodCode ="EVN" classCode="OBS"> <templateId root= "216.840.1.822569.10..22.4.2" /> <id nullFlavor="NA" /> < code codeSystem="local" code="PREGN" displayName=" Screen, Urine NPT" / > <statusCode code="completed" /> <effectiveTime value= "804823065502" /> <value unit="NA" xsi:type="PQ" value="Negative" /> <referenceRange> <observationRange> <text /> </observationRange> </referenceRange> </observation> </component> </organizer> </entry> <entry> <organizer moodCode="EVN " classCode="BATTERY"> <templateId root="216.840.1.204122.10.20.22.4.1" / > <id nullFlavor="NA" /> <code codeSystem="local" code="CBCD" displayName="CBC W/DIFF" /> <statusCode code="completed" /> <component > <observation moodCode="EVN" classCode="OBS"> <templateId root= "06.08.840.1.771735.10.2022.4.2" /> <id nullFlavor="NA" /> < code codeSystem="local" code="EO#" displayName="EOSINOPHIL #" /> < statusCode code="completed" /> <effectiveTime value="195299334483" /> <value unit="k/cumm" xsi:type="PQ" value="0.1" /> < referenceRange> <observationRange> <text>0.1-0.5</text> </observationRange> </referenceRange> </observation > </component> <component> <observation moodCode="EVN" classCode="OBS"> <templateId root="06.08.840.1.112389.10..4.2" /> <id nullFlavor="NA" /> <code codeSystem="local" code="EO% " displayName="EOSINOPHIL %" /> <statusCode code="completed" /> <effectiveTime value="896293400688" /> <value unit="%" xsi: type="PQ" value="1" /> <interpretationCode codeSystem="local" code="*" /> <referenceRange> <observationRange> <text>2- 4</text> </observationRange> </referenceRange> </ observation> </component> <component> <observation moodCode= "EVN" classCode="OBS"> <templateId root="06.08.840.1.723728.10.22.4.2 " /> <id nullFlavor="NA" /> <code codeSystem="local" code="GR# " displayName="GRANULOCYTE #" /> <statusCode code="completed" /> <effectiveTime value="509712581927" /> <value unit="k/cumm" xsi: type="PQ" value="3.5" /> <referenceRange> <observationRange > <text>2.0-9.0</text> </observationRange> </ referenceRange> </observation> </component> <component> <observation moodCode="EVN" classCode="OBS"> <templateId root= "216.840.1.288961.10.20.22.4.2" /> <id nullFlavor="NA" /> < code codeSystem="local" code="GR%" displayName="GRANULOCYTE %" /> <statusCode code="completed" /> <effectiveTime value="085630074883 " /> <value unit="%" xsi:type="PQ" value="47" /> < interpretationCode codeSystem="local" code="*" /> <referenceRange> <observationRange> <text>50-75</text> </ observationRange> </referenceRange> </observation> </ component> <component> <observation moodCode="EVN" classCode="OBS"> <templateId root="06.08.840.1.488386.02.09.22.4.2" /> <id nullFlavor="NA" /> <code codeSystem="local" code="LY#" displayName= "LYMPHOCYTE #" /> <statusCode code="completed" /> < effectiveTime value="380050185968" /> <value unit="k/cumm" xsi:type="PQ " value="3.1" /> <referenceRange> <observationRange> <text>1.0-4.0</text> </observationRange> </ referenceRange> </observation> </component> <component> <observation moodCode="EVN" classCode="OBS"> <templateId root= "16.840.1.117272.10.2022.4.2" /> <id nullFlavor="NA" /> < code codeSystem="local" code="LY%" displayName="LYMPHOCYTE %" /> <statusCode code="completed" /> <effectiveTime value="" /> <value unit="%" xsi:type="PQ" value="42" /> < interpretationCode codeSystem="local" code="*" /> <referenceRange> <observationRange> <text>20-30</text> </ observationRange> </referenceRange> </observation> </ component> <component> <observation moodCode="EVN" classCode="OBS"> <templateId root="2.16.840.1.617732.10..22.4.2" /> <id nullFlavor="NA" /> <code codeSystem="local" code="MCH" displayName= "MEAN CELL HGB" /> <statusCode code="completed" /> < effectiveTime value="" /> <value unit="pg" xsi:type="PQ" value="33.8" /> <interpretationCode codeSystem="local" code="*" /> <referenceRange> <observationRange> <text>27.0- 33.0</text> </observationRange> </referenceRange> </ observation> </component> <component> <observation moodCode= "EVN" classCode="OBS"> <templateId root="216.840.1.618260.10.20.22.4.2 " /> <id nullFlavor="NA" /> <code codeSystem="local" code= "MCHC" displayName="MEAN CELL HGB CONCENTRATION" /> <statusCode code= "completed" /> <effectiveTime value="" /> <value unit="g/dL" xsi:type="PQ" value="32.8" /> <referenceRange> < observationRange> <text>32.0-37.0</text> </ observationRange> </referenceRange> </observation> </ component> <component> <observation moodCode="EVN" classCode="OBS"> <templateId root="216.840.1.222247.10.4.2" /> <id nullFlavor="NA" /> <code codeSystem="local" code="MCV" displayName= "MEAN CELL VOLUME" /> <statusCode code="completed" /> < effectiveTime value="" /> <value unit="fl" xsi:type="PQ" value="103.0" /> <interpretationCode codeSystem="local" code="*" /> <referenceRange> <observationRange> <text>80.0- 100.0</text> </observationRange> </referenceRange> </ observation> </component> <component> <observation moodCode= "EVN" classCode="OBS"> <templateId root="16.840.1.217531.02.09.224.2 " /> <id nullFlavor="NA" /> <code codeSystem="local" code="MO# " displayName="MONOCYTE #" /> <statusCode code="completed" /> <effectiveTime value="" /> <value unit="k/cumm" xsi:type= "PQ" value="0.7" /> <referenceRange> <observationRange> <text>0.1-1.0</text> </observationRange> </ referenceRange> </observation> </component> <component> <observation moodCode="EVN" classCode="OBS"> <templateId root= "216.840.1.661459.22.4.2" /> <id nullFlavor="NA" /> < code codeSystem="local" code="MO%" displayName="MONOCYTE %" /> <statusCode code="completed" /> <effectiveTime value="" /> <value unit="%" xsi:type="PQ" value="10" /> < interpretationCode codeSystem="local" code="*" /> <referenceRange> <observationRange> <text>4-6</text> </ observationRange> </referenceRange> </observation> </ component> <component> <observation moodCode="EVN" classCode="OBS"> <templateId root="06.08.840.1.251689.10.20.22.4.2" /> <id nullFlavor="NA" /> <code codeSystem="local" code="RBC" displayName=" RED BLOOD CELL" /> <statusCode code="completed" /> < effectiveTime value="734956442858" /> <value unit="m/cumm" xsi:type="PQ " value="3.61" /> <interpretationCode codeSystem="local" code="*" /> <referenceRange> <observationRange> <text>4.00- 6.00</text> </observationRange> </referenceRange> </ observation> </component> <component> <observation moodCode= "EVN" classCode="OBS"> <templateId root="06.08.840.1.656631.10.20.22.4.2 " /> <id nullFlavor="NA" /> <code codeSystem="local" code="RDW " displayName="RED CELL DISTRIBUTION WIDTH" /> <statusCode code= "completed" /> <effectiveTime value="539110097846" /> <value unit="%" xsi:type="PQ" value="11.9" /> <referenceRange> <observationRange> <text>11.0-15.6</text> </ observationRange> </referenceRange> </observation> </ component> <component> <observation moodCode="EVN" classCode="OBS"> <templateId root="06.08.830.1.767660.10..22.4.2" /> <id nullFlavor="NA" /> <code codeSystem="local" code="WBC" displayName= "WHITE BLOOD CELL" /> <statusCode code="completed" /> < effectiveTime value="" /> <value unit="k/cumm" xsi:type="PQ " value="7.5" /> <referenceRange> <observationRange> <text>5.0-10.0</text> </observationRange> </ referenceRange> </observation> </component> <component> <observation moodCode="EVN" classCode="OBS"> <templateId root= "16.840.1.493254...4.2" /> <id nullFlavor="NA" /> < code codeSystem="local" code="HGBT" displayName="HEMOGLOBIN" /> < statusCode code="completed" /> <effectiveTime value="" /> <value unit="gm/dL" xsi:type="PQ" value="12.2" /> < referenceRange> <observationRange> <text>12.0-16.0</text > </observationRange> </referenceRange> </observation > </component> <component> <observation moodCode="EVN" classCode="OBS"> <templateId root="06.08.840.1.350771...22.4.2" /> <id nullFlavor="NA" /> <code codeSystem="local" code="HCTT" displayName="HEMATOCRIT" /> <statusCode code="completed" /> < effectiveTime value="" /> <value unit="%" xsi:type="PQ " value="37.2" /> <referenceRange> <observationRange> <text>37.0-47.0</text> </observationRange> </ referenceRange> </observation> </component> <component> <observation moodCode="EVN" classCode="OBS"> <templateId root= "2.16.840.1.206877.10..4.2" /> <id nullFlavor="NA" /> < code codeSystem="local" code="PLT" displayName="PLATELET COUNT" /> < statusCode code="completed" /> <effectiveTime value="223015591929" /> <value unit="k/cumm" xsi:type="PQ" value="299" /> < referenceRange> <observationRange> <text>150-450</text> </observationRange> </referenceRange> </observation > </component> </organizer> </entry> <entry> <organizer moodCode= "EVN" classCode="BATTERY"> <templateId root="2.16.840.1.349637.10.22.4.1 " /> <id nullFlavor="NA" /> <code codeSystem="local" code="iCHEM8" displayName="CHEM/HEM PROFILE-BEDSIDE" /> <statusCode code="completed" /> <component> <observation moodCode="EVN" classCode="OBS"> < templateId root="2.16.840.1.612609.10..22.4.2" /> <id nullFlavor="NA " /> <code codeSystem="local" code="K" displayName="POTASSIUM" /> <statusCode code="completed" /> <effectiveTime value="230786716909 " /> <value unit="mmol/L" xsi:type="PQ" value="3.8" /> < referenceRange> <observationRange> <text>3.5-5.3</text> </observationRange> </referenceRange> </observation > </component> <component> <observation moodCode="EVN" classCode="OBS"> <templateId root="216.840.1.058045.10..4.2" /> <id nullFlavor="NA" /> <code codeSystem="local" code="CMETHOD " displayName="METHOD" /> <statusCode code="completed" /> < effectiveTime value="" /> <value unit="" xsi:type="PQ" value="Bedside" /> <referenceRange> <observationRange> <text /> </observationRange> </referenceRange> </observation> </component> <component> <observation moodCode="EVN" classCode="OBS"> <templateId root= "16.840.1.221773.02.09.22.4.2" /> <id nullFlavor="NA" /> < code codeSystem="local" code="GAP" displayName="ANION GAP" /> < statusCode code="completed" /> <effectiveTime value="" /> <value unit="mmol/L" xsi:type="PQ" value="19" /> < referenceRange> <observationRange> <text>10-20</text> </observationRange> </referenceRange> </observation> </component> <component> <observation moodCode="EVN" classCode= "OBS"> <templateId root="16.840.1.057488.10.4.2" /> < id nullFlavor="NA" /> <code codeSystem="local" code="HMETHOD" displayName="METHOD" /> <statusCode code="completed" /> < effectiveTime value="" /> <value unit="" xsi:type="PQ" value="Bedside" /> <referenceRange> <observationRange> <text /> </observationRange> </referenceRange> </observation> </component> <component> <observation moodCode="EVN" classCode="OBS"> <templateId root= "216.840.1.255866.10..22.4.2" /> <id nullFlavor="NA" /> < code codeSystem="local" code="GLU" displayName="GLUCOSE" /> < statusCode code="completed" /> <effectiveTime value="" /> <value unit="mg/dL" xsi:type="PQ" value="110" /> < interpretationCode codeSystem="local" code="*" /> <referenceRange> <observationRange> <text>70-99</text> </ observationRange> </referenceRange> </observation> </ component> <component> <observation moodCode="EVN" classCode="OBS"> <templateId root="216.840.1.494885.10...4.2" /> <id nullFlavor="NA" /> <code codeSystem="local" code="BUN" displayName= "BLOOD UREA NITROGEN" /> <statusCode code="completed" /> < effectiveTime value="" /> <value unit="mg/dL" xsi:type="PQ " value="14" /> <referenceRange> <observationRange> <text>7-20</text> </observationRange> </referenceRange > </observation> </component> <component> <observation moodCode="EVN" classCode="OBS"> <templateId root= "216.840.1.589955.10..22.4.2" /> <id nullFlavor="NA" /> < code codeSystem="local" code="CREAT" displayName="CREATININE" /> < statusCode code="completed" /> <effectiveTime value="" /> <value unit="mg/dL" xsi:type="PQ" value="0.7" /> < referenceRange> <observationRange> <text>0.6-1.0</text> </observationRange> </referenceRange> </observation > </component> <component> <observation moodCode="EVN" classCode="OBS"> <templateId root="216.840.1.668057.10..22.4.2" /> <id nullFlavor="NA" /> <code codeSystem="local" code="HGBT" displayName="HEMOGLOBIN" /> <statusCode code="completed" /> < effectiveTime value="687936955596" /> <value unit="gm/dL" xsi:type="PQ " value="12.6" /> <referenceRange> <observationRange> <text>12.0-16.0</text> </observationRange> </ referenceRange> </observation> </component> <component> <observation moodCode="EVN" classCode="OBS"> <templateId root= "16.840.1.826627.10...4.2" /> <id nullFlavor="NA" /> < code codeSystem="local" code="HCTT" displayName="HEMATOCRIT" /> < statusCode code="completed" /> <effectiveTime value="652081365432" /> <value unit="%" xsi:type="PQ" value="37.0" /> < referenceRange> <observationRange> <text>37.0-47.0</text > </observationRange> </referenceRange> </observation > </component> <component> <observation moodCode="EVN" classCode="OBS"> <templateId root="06.08.840.1.877112.10.20.22.4.2" /> <id nullFlavor="NA" /> <code codeSystem="local" code="NA" displayName="SODIUM" /> <statusCode code="completed" /> < effectiveTime value="" /> <value unit="mmol/L" xsi:type="PQ " value="143" /> <referenceRange> <observationRange> <text>135-148</text> </observationRange> </ referenceRange> </observation> </component> <component> <observation moodCode="EVN" classCode="OBS"> <templateId root= "216.840.1.977541.10..4.2" /> <id nullFlavor="NA" /> < code codeSystem="local" code="CL" displayName="CHLORIDE" /> < statusCode code="completed" /> <effectiveTime value="" /> <value unit="mmol/L" xsi:type="PQ" value="104" /> < referenceRange> <observationRange> <text>98-110</text> </observationRange> </referenceRange> </observation> </component> <component> <observation moodCode="EVN" classCode ="OBS"> <templateId root="06.08.840.1.772392.10..4.2" /> < id nullFlavor="NA" /> <code codeSystem="local" code="CO2" displayName= "CARBON DIOXIDE" /> <statusCode code="completed" /> < effectiveTime value="" /> <value unit="mmol/L" xsi:type="PQ " value="25" /> <referenceRange> <observationRange> <text>21-32</text> </observationRange> </ referenceRange> </observation> </component> <component> <observation moodCode="EVN" classCode="OBS"> <templateId root= "216.840.1.783661.10..22.4.2" /> <id nullFlavor="NA" /> < code codeSystem="local" code="CAION" displayName="CALCIUM IONIZED" /> < statusCode code="completed" /> <effectiveTime value="622482860028" /> <value unit="mg/dL" xsi:type="PQ" value="4.8" /> < referenceRange> <observationRange> <text>4.5-5.3</text> </observationRange> </referenceRange> </observation > </component> </organizer> </entry> <entry> <organizer moodCode= "EVN" classCode="BATTERY"> <templateId root="216.840.1.943865.10...4.1 " /> <id nullFlavor="NA" /> <code codeSystem="local" code="PREGU" displayName="UR TEST" /> <statusCode code="completed" /> < component> <observation moodCode="EVN" classCode="OBS"> < templateId root="216.840.1.294176.10..22.4.2" /> <id nullFlavor="NA " /> <code codeSystem="local" code="PREGU" displayName="UR TEST" /> <statusCode code="completed" /> <effectiveTime value= "925794361807" /> <value unit="" xsi:type="PQ" value="NEGATIVE" /> <referenceRange> <observationRange> <text>NEGATIVE </text> </observationRange> </referenceRange> </ observation> </component> </organizer> </entry> <entry> <organizer moodCode="EVN" classCode="BATTERY"> <templateId root= "16.840.1.694626.10...4.1" /> <id nullFlavor="NA" /> <code codeSystem="local" code="UA" displayName="URINALYSIS, ROUTINE" /> < statusCode code="completed" /> <component> <observation moodCode= "EVN" classCode="OBS"> <templateId root="216.840.1.941268.10..4.2 " /> <id nullFlavor="NA" /> <code codeSystem="local" code= "LEUESU" displayName="UA LEUKOCYTE ESTERASE DIPSTICK" /> <statusCode code="completed" /> <effectiveTime value="" /> < value unit="" xsi:type="PQ" value="1+" /> <referenceRange> < observationRange> <text>NEGATIVE</text> </ observationRange> </referenceRange> </observation> </ component> <component> <observation moodCode="EVN" classCode="OBS"> <templateId root="16.840.1.613113.02.09.22.4.2" /> <id nullFlavor="NA" /> <code codeSystem="local" code="NITRIU" displayName= "UA NITRITE DIPSTICK" /> <statusCode code="completed" /> < effectiveTime value="" /> <value unit="" xsi:type="PQ" value="NEGATIVE" /> <referenceRange> <observationRange> <text>NEGATIVE</text> </observationRange> </ referenceRange> </observation> </component> <component> <observation moodCode="EVN" classCode="OBS"> <templateId root= "06.08.840.1.576219.10.22.4.2" /> <id nullFlavor="NA" /> < code codeSystem="local" code="PROTEIU" displayName="UA PROTEIN DIPSTICK" /> <statusCode code="completed" /> <effectiveTime value= "501557357996" /> <value unit="" xsi:type="PQ" value="TRACE" /> <referenceRange> <observationRange> <text>NEGATIVE</ text> </observationRange> </referenceRange> </ observation> </component> <component> <observation moodCode= "EVN" classCode="OBS"> <templateId root="216.840.1.228001.10.4.2 " /> <id nullFlavor="NA" /> <code codeSystem="local" code= "DGLUU" displayName="UA GLUCOSE DIPSTICK" /> <statusCode code= "completed" /> <effectiveTime value="" /> <value unit="" xsi:type="PQ" value="NEGATIVE" /> <referenceRange> < observationRange> <text>NEGATIVE</text> </ observationRange> </referenceRange> </observation> </ component> <component> <observation moodCode="EVN" classCode="OBS"> <templateId root="06.08.840.1.000130.02.09.22.4.2" /> <id nullFlavor="NA" /> <code codeSystem="local" code="KETONU" displayName= "UA KETONE DIPSTICK" /> <statusCode code="completed" /> < effectiveTime value="" /> <value unit="" xsi:type="PQ" value="NEGATIVE" /> <referenceRange> <observationRange> <text>NEGATIVE</text> </observationRange> </ referenceRange> </observation> </component> <component> <observation moodCode="EVN" classCode="OBS"> <templateId root= "16.840.1.589632.02.09.22.4.2" /> <id nullFlavor="NA" /> < code codeSystem="local" code="UROBILU" displayName="UA UROBILINOGEN DIPSTICK" / > <statusCode code="completed" /> <effectiveTime value= "" /> <value unit="" xsi:type="PQ" value="NORMAL" /> <referenceRange> <observationRange> <text>NORMAL</ text> </observationRange> </referenceRange> </ observation> </component> <component> <observation moodCode= "EVN" classCode="OBS"> <templateId root="06.08.840.1.086427.10.22.4.2 " /> <id nullFlavor="NA" /> <code codeSystem="local" code= "BILU" displayName="UA BILIRUBIN DIPSTICK" /> <statusCode code= "completed" /> <effectiveTime value="078814492463" /> <value unit="" xsi:type="PQ" value="NEGATIVE" /> <referenceRange> < observationRange> <text>NEGATIVE</text> </ observationRange> </referenceRange> </observation> </ component> <component> <observation moodCode="EVN" classCode="OBS"> <templateId root="840.1.047146.22.4.2" /> <id nullFlavor="NA" /> <code codeSystem="local" code="SPENCER" displayName="UA BLOOD DIPSTICK" /> <statusCode code="completed" /> < effectiveTime value="778161721641" /> <value unit="" xsi:type="PQ" value="4+" /> <referenceRange> <observationRange> <text>NEGATIVE</text> </observationRange> </ referenceRange> </observation> </component> <component> <observation moodCode="EVN" classCode="OBS"> <templateId root= "06.08.840.1.043207.102022.4.2" /> <id nullFlavor="NA" /> < code codeSystem="local" code="SPGRU" displayName="UA SPECIFIC GRAVITY" /> <statusCode code="completed" /> <effectiveTime value="831829901260 " /> <value unit="" xsi:type="PQ" value="1.015" /> < referenceRange> <observationRange> <text>1.015-1.025</ text> </observationRange> </referenceRange> </ observation> </component> <component> <observation moodCode= "EVN" classCode="OBS"> <templateId root="840.1.334974.02.09.22.4.2 " /> <id nullFlavor="NA" /> <code codeSystem="local" code="FEROZ " displayName="UR PH" /> <statusCode code="completed" /> < effectiveTime value="158617081882" /> <value unit="" xsi:type="PQ" value="8.0" /> <interpretationCode codeSystem="local" code="*" /> <referenceRange> <observationRange> <text>5.0-7.0</ text> </observationRange> </referenceRange> </ observation> </component> </organizer> </entry> <entry> <organizer moodCode="EVN" classCode="BATTERY"> <templateId root= "840.1.371154.02.09.22.4.1" /> <id nullFlavor="NA" /> <code codeSystem="local" code="UAMICRO" displayName="UA MICROSCOPIC" /> < statusCode code="completed" /> <component> <observation moodCode= "EVN" classCode="OBS"> <templateId root="840.1.314691.02.09.22.4.2 " /> <id nullFlavor="NA" /> <code codeSystem="local" code= "AMORPU" displayName="UA AMORPHOUS SEDIMENT" /> <statusCode code= "completed" /> <effectiveTime value="562940918295" /> <value unit="" xsi:type="PQ" value="4+" /> <referenceRange> < observationRange> <text /> </observationRange> </referenceRange> </observation> </component> <component> <observation moodCode="EVN" classCode="OBS"> <templateId root= "06.08.840.1.140678.10.4.2" /> <id nullFlavor="NA" /> < code codeSystem="local" code="BACU" displayName="UA BACTERIA" /> < statusCode code="completed" /> <effectiveTime value="434292136780" /> <value unit="" xsi:type="PQ" value="2+" /> <referenceRange> <observationRange> <text>NEGATIVE</text> </ observationRange> </referenceRange> </observation> </ component> <component> <observation moodCode="EVN" classCode="OBS"> <templateId root="840.1.462881.02.09.22.4.2" /> <id nullFlavor="NA" /> <code codeSystem="local" code="EPIU" displayName=" UA EPITHELIAL CELLS" /> <statusCode code="completed" /> < effectiveTime value="611044703613" /> <value unit="epi/hpf" xsi:type= "PQ" value="1+" /> <referenceRange> <observationRange> <text>0 - 1+</text> </observationRange> </ referenceRange> </observation> </component> <component> <observation moodCode="EVN" classCode="OBS"> <templateId root= "06.08.840.1.615217.2022.4.2" /> <id nullFlavor="NA" /> < code codeSystem="local" code="MUCUSU" displayName="UA MUCUS" /> < statusCode code="completed" /> <effectiveTime value="268317648251" /> <value unit="" xsi:type="PQ" value="2+" /> <referenceRange> <observationRange> <text>NEG TO 1+</text> </ observationRange> </referenceRange> </observation> </ component> <component> <observation moodCode="EVN" classCode="OBS"> <templateId root="06.08.840.1.318774.02.09.22.4.2" /> <id nullFlavor="NA" /> <code codeSystem="local" code="RBCU" displayName=" UA RBC" /> <statusCode code="completed" /> <effectiveTime value="961849515526" /> <value unit="rbc/hpf" xsi:type="PQ" value="0-3 " /> <referenceRange> <observationRange> <text> 0 - 3</text> </observationRange> </referenceRange> </ observation> </component> <component> <observation moodCode= "EVN" classCode="OBS"> <templateId root="06.08.840.1.492293.02.09.22.4.2 " /> <id nullFlavor="NA" /> <code codeSystem="local" code= "UAVOL" displayName="UA VOLUME FOR EXAM" /> <statusCode code="completed " /> <effectiveTime value="988034884705" /> <value unit="mL" xsi:type="PQ" value="12.0" /> <referenceRange> < observationRange> <text>(12mL STD)</text> </ observationRange> </referenceRange> </observation> </ component> <component> <observation moodCode="EVN" classCode="OBS"> <templateId root="216.840.1.426525...4.2" /> <id nullFlavor="NA" /> <code codeSystem="local" code="WBCU" displayName=" UA WBC" /> <statusCode code="completed" /> <effectiveTime value="089201299706" /> <value unit="wbc/hpf" xsi:type="PQ" value="5-10 " /> <referenceRange> <observationRange> <text> 0 - 5</text> </observationRange> </referenceRange> </ observation> </component> </organizer> </entry> <entry> <organizer moodCode="EVN" classCode="BATTERY"> <templateId root= "216.840.1.561426.10..22.4.1" /> <id nullFlavor="NA" /> <code codeSystem="local" code="DRUGAB" displayName="UR DRUGS OF ABUSE SCREEN" /> <statusCode code="completed" /> <component> <observation moodCode= "EVN" classCode="OBS"> <templateId root="216.840.1.208417.10..22.4.2 " /> <id nullFlavor="NA" /> <code codeSystem="local" code= "AMPHU" displayName="UR AMPHETAMINES SCREEN" /> <statusCode code= "completed" /> <effectiveTime value="692767347836" /> <value unit="" xsi:type="PQ" value="NEG (<1000 ng/mL)" /> <referenceRange > <observationRange> <text>NEGATIVE</text> </ observationRange> </referenceRange> </observation> </ component> <component> <observation moodCode="EVN" classCode="OBS"> <templateId root="216.840.1.683581.10..22.4.2" /> <id nullFlavor="NA" /> <code codeSystem="local" code="BARBU" displayName= "UR BARBITURATE SCREEN" /> <statusCode code="completed" /> < effectiveTime value="" /> <value unit="" xsi:type="PQ" value="NEG (< 200 ng/mL)" /> <referenceRange> < observationRange> <text>NEGATIVE</text> </ observationRange> </referenceRange> </observation> </ component> <component> <observation moodCode="EVN" classCode="OBS"> <templateId root="216.840.1.952222.10..22.4.2" /> <id nullFlavor="NA" /> <code codeSystem="local" code="DAUCOMMENT" displayName="DRUGS OF ABUSE SCREEN COMMENT" /> <statusCode code= "completed" /> <effectiveTime value="" /> <value unit="" xsi:type="PQ" value="" /> <referenceRange> < observationRange> <text /> </observationRange> </referenceRange> </observation> </component> <component> <observation moodCode="EVN" classCode="OBS"> <templateId root= "216.840.1.936117.10..22.4.2" /> <id nullFlavor="NA" /> < code codeSystem="local" code="OPIU" displayName="UR OPIATES SCREEN" /> <statusCode code="completed" /> <effectiveTime value="" /> <value unit="" xsi:type="PQ" value="NEG (< 300 ng/mL)" /> <referenceRange> <observationRange> <text>NEGATIVE</ text> </observationRange> </referenceRange> </ observation> </component> <component> <observation moodCode= "EVN" classCode="OBS"> <templateId root="216.840.1.366355.02.09.22.4.2 " /> <id nullFlavor="NA" /> <code codeSystem="local" code= "PCPU" displayName="UR PHENCYCLIDINE (PCP) SCREEN" /> <statusCode code= "completed" /> <effectiveTime value="" /> <value unit="" xsi:type="PQ" value="NEG (< 25 ng/mL)" /> <referenceRange > <observationRange> <text>NEGATIVE</text> </ observationRange> </referenceRange> </observation> </ component> <component> <observation moodCode="EVN" classCode="OBS"> <templateId root="2.16.840.1.749017.10..4.2" /> <id nullFlavor="NA" /> <code codeSystem="local" code="THCU" displayName=" UR CANNABINOIDS (THC) SCREEN" /> <statusCode code="completed" /> <effectiveTime value="" /> <value unit="" xsi:type="PQ " value="NEG (< 50 ng/mL)" /> <referenceRange> < observationRange> <text>NEGATIVE</text> </ observationRange> </referenceRange> </observation> </ component> <component> <observation moodCode="EVN" classCode="OBS"> <templateId root="2.16.840.1.004406.10..4.2" /> <id nullFlavor="NA" /> <code codeSystem="local" code="COCAU" displayName= "UR COCAINE METABOLITE SCREEN" /> <statusCode code="completed" /> <effectiveTime value="" /> <value unit="" xsi:type="PQ " value="NEG (< 300 ng/mL)" /> <referenceRange> < observationRange> <text>NEGATIVE</text> </ observationRange> </referenceRange> </observation> </ component> <component> <observation moodCode="EVN" classCode="OBS"> <templateId root="2.16.840.1.752698.10..22.4.2" /> <id nullFlavor="NA" /> <code codeSystem="local" code="METHU" displayName= "UR METHADONE SCREEN" /> <statusCode code="completed" /> < effectiveTime value="" /> <value unit="" xsi:type="PQ" value="NEG (< 300 ng/mL)" /> <referenceRange> < observationRange> <text>NEGATIVE</text> </ observationRange> </referenceRange> </observation> </ component> <component> <observation moodCode="EVN" classCode="OBS"> <templateId root="2.16.840.1.494766...4.2" /> <id nullFlavor="NA" /> <code codeSystem="local" code="BENZU" displayName= "UR BENZODIAZEPINE SCREEN" /> <statusCode code="completed" /> <effectiveTime value="" /> <value unit="" xsi:type="PQ" value="NEG (< 200 ng/mL)" /> <referenceRange> < observationRange> <text>NEGATIVE</text> </ observationRange> </referenceRange> </observation> </ component> </organizer> </entry> <entry> <organizer moodCode="EVN" classCode="BATTERY"> <templateId root="2.16.840.1.844685.10..22.4.1" /> <id nullFlavor="NA" /> <code codeSystem="local" code="UA" displayName= "URINALYSIS, ROUTINE" /> <statusCode code="completed" /> <component> <observation moodCode="EVN" classCode="OBS"> <templateId root= "16.840.1.646383.10...4.2" /> <id nullFlavor="NA" /> < code codeSystem="local" code="LEUESU" displayName="UA LEUKOCYTE ESTERASE DIPSTICK" /> <statusCode code="completed" /> <effectiveTime value="" /> <value unit="" xsi:type="PQ" value="TRACE" /> <referenceRange> <observationRange> <text> NEGATIVE</text> </observationRange> </referenceRange> </observation> </component> <component> <observation moodCode ="EVN" classCode="OBS"> <templateId root= "06.08.840.1.672297.02.09.22.4.2" /> <id nullFlavor="NA" /> < code codeSystem="local" code="NITRIU" displayName="UA NITRITE DIPSTICK" /> <statusCode code="completed" /> <effectiveTime value=" " /> <value unit="" xsi:type="PQ" value="NEGATIVE" /> < referenceRange> <observationRange> <text>NEGATIVE</text > </observationRange> </referenceRange> </observation > </component> <component> <observation moodCode="EVN" classCode="OBS"> <templateId root="06.08.840.1.304329.02.09.22.4.2" /> <id nullFlavor="NA" /> <code codeSystem="local" code="PROTEIU " displayName="UA PROTEIN DIPSTICK" /> <statusCode code="completed" /> <effectiveTime value="" /> <value unit="" xsi: type="PQ" value="1+" /> <referenceRange> <observationRange> <text>NEGATIVE</text> </observationRange> </ referenceRange> </observation> </component> <component> <observation moodCode="EVN" classCode="OBS"> <templateId root= "06.08.840.1.840575.10.4.2" /> <id nullFlavor="NA" /> < code codeSystem="local" code="DGLUU" displayName="UA GLUCOSE DIPSTICK" /> <statusCode code="completed" /> <effectiveTime value=" " /> <value unit="" xsi:type="PQ" value="NEGATIVE" /> < referenceRange> <observationRange> <text>NEGATIVE</text > </observationRange> </referenceRange> </observation > </component> <component> <observation moodCode="EVN" classCode="OBS"> <templateId root="216.840.1.989220.02.09.22.4.2" /> <id nullFlavor="NA" /> <code codeSystem="local" code="KETONU" displayName="UA KETONE DIPSTICK" /> <statusCode code="completed" /> <effectiveTime value="" /> <value unit="" xsi:type= "PQ" value="2+" /> <referenceRange> <observationRange> <text>NEGATIVE</text> </observationRange> </ referenceRange> </observation> </component> <component> <observation moodCode="EVN" classCode="OBS"> <templateId root= "06.08.840.1.754795...4.2" /> <id nullFlavor="NA" /> < code codeSystem="local" code="UROBILU" displayName="UA UROBILINOGEN DIPSTICK" / > <statusCode code="completed" /> <effectiveTime value= "" /> <value unit="" xsi:type="PQ" value="NORMAL" /> <referenceRange> <observationRange> <text>NORMAL</ text> </observationRange> </referenceRange> </ observation> </component> <component> <observation moodCode= "EVN" classCode="OBS"> <templateId root="216.840.1.673653.10..4.2 " /> <id nullFlavor="NA" /> <code codeSystem="local" code= "BILU" displayName="UA BILIRUBIN DIPSTICK" /> <statusCode code= "completed" /> <effectiveTime value="" /> <value unit="" xsi:type="PQ" value="NEGATIVE" /> <referenceRange> < observationRange> <text>NEGATIVE</text> </ observationRange> </referenceRange> </observation> </ component> <component> <observation moodCode="EVN" classCode="OBS"> <templateId root="06.08.840.1.948486.10.4.2" /> <id nullFlavor="NA" /> <code codeSystem="local" code="SPENCER" displayName="UA BLOOD DIPSTICK" /> <statusCode code="completed" /> < effectiveTime value="" /> <value unit="" xsi:type="PQ" value="NEGATIVE" /> <referenceRange> <observationRange> <text>NEGATIVE</text> </observationRange> </ referenceRange> </observation> </component> <component> <observation moodCode="EVN" classCode="OBS"> <templateId root= "06.08.840.1.632853.02.09.22.4.2" /> <id nullFlavor="NA" /> < code codeSystem="local" code="SPGRU" displayName="UA SPECIFIC GRAVITY" /> <statusCode code="completed" /> <effectiveTime value=" " /> <value unit="" xsi:type="PQ" value="1.020" /> < referenceRange> <observationRange> <text>1.015-1.025</ text> </observationRange> </referenceRange> </ observation> </component> <component> <observation moodCode= "EVN" classCode="OBS"> <templateId root="16.840.1.907873.02.09.22.4.2 " /> <id nullFlavor="NA" /> <code codeSystem="local" code="FEROZ " displayName="UR PH" /> <statusCode code="completed" /> < effectiveTime value="" /> <value unit="" xsi:type="PQ" value="5.0" /> <referenceRange> <observationRange> <text>5.0-7.0</text> </observationRange> </ referenceRange> </observation> </component> </organizer> </entry > <entry> <organizer moodCode="EVN" classCode="BATTERY"> <templateId root="06.08.840.1.317962.02.09.22.4.1" /> <id nullFlavor="NA" /> <code codeSystem="local" code="UAMICRO" displayName="UA MICROSCOPIC" /> < statusCode code="completed" /> <component> <observation moodCode= "EVN" classCode="OBS"> <templateId root="06.08.840.1.617147.22.4.2 " /> <id nullFlavor="NA" /> <code codeSystem="local" code= "BACU" displayName="UA BACTERIA" /> <statusCode code="completed" /> <effectiveTime value="" /> <value unit="" xsi:type= "PQ" value="3+" /> <referenceRange> <observationRange> <text>NEGATIVE</text> </observationRange> </ referenceRange> </observation> </component> <component> <observation moodCode="EVN" classCode="OBS"> <templateId root= "16.840.1.487090.10.4.2" /> <id nullFlavor="NA" /> < code codeSystem="local" code="EPIU" displayName="UA EPITHELIAL CELLS" /> <statusCode code="completed" /> <effectiveTime value="" /> <value unit="epi/hpf" xsi:type="PQ" value="2+" /> < referenceRange> <observationRange> <text>0 - 1+</text> </observationRange> </referenceRange> </observation> </component> <component> <observation moodCode="EVN" classCode ="OBS"> <templateId root="06.08.840.1.443334.02.09.22.4.2" /> < id nullFlavor="NA" /> <code codeSystem="local" code="MUCUSU" displayName="UA MUCUS" /> <statusCode code="completed" /> < effectiveTime value="" /> <value unit="" xsi:type="PQ" value="3+" /> <referenceRange> <observationRange> <text>NEG TO 1+</text> </observationRange> </ referenceRange> </observation> </component> <component> <observation moodCode="EVN" classCode="OBS"> <templateId root= "06.08.840.1.362255.02.09.22.4.2" /> <id nullFlavor="NA" /> < code codeSystem="local" code="UAVOL" displayName="UA VOLUME FOR EXAM" /> <statusCode code="completed" /> <effectiveTime value="254254381185" /> <value unit="mL" xsi:type="PQ" value="8.0" /> < referenceRange> <observationRange> <text>(12mL STD)</ text> </observationRange> </referenceRange> </ observation> </component> <component> <observation moodCode= "EVN" classCode="OBS"> <templateId root="216.840.1.732532.10..22.4.2 " /> <id nullFlavor="NA" /> <code codeSystem="local" code= "WBCU" displayName="UA WBC" /> <statusCode code="completed" /> <effectiveTime value="926852085485" /> <value unit="wbc/hpf" xsi:type ="PQ" value="2-5" /> <referenceRange> <observationRange> <text>0 - 5</text> </observationRange> </ referenceRange> </observation> </component> </organizer> </entry > <entry> <organizer moodCode="EVN" classCode="BATTERY"> <templateId root="16.840.1.829900.10..22.4.1" /> <id nullFlavor="NA" /> <code codeSystem="local" code="PREGU" displayName="UR TEST" /> < statusCode code="completed" /> <component> <observation moodCode= "EVN" classCode="OBS"> <templateId root="16.840.1.437199.10..22.4.2 " /> <id nullFlavor="NA" /> <code codeSystem="local" code= "PREGU" displayName="UR TEST" /> <statusCode code="completed " /> <effectiveTime value="185782146444" /> <value unit="" xsi :type="PQ" value="NEGATIVE" /> <referenceRange> < observationRange> <text>NEGATIVE</text> </ observationRange> </referenceRange> </observation> </ component> </organizer> </entry> <entry> <organizer moodCode="EVN" classCode="BATTERY"> <templateId root="216.840.1.494383.10..22.4.1" /> <id nullFlavor="NA" /> <code codeSystem="local" code="iCHEM8" displayName="CHEM/HEM PROFILE-BEDSIDE" /> <statusCode code="completed" /> <component> <observation moodCode="EVN" classCode="OBS"> < templateId root="216.840.1.296721...4.2" /> <id nullFlavor="NA " /> <code codeSystem="local" code="K" displayName="POTASSIUM" /> <statusCode code="completed" /> <effectiveTime value="332056472100 " /> <value unit="mmol/L" xsi:type="PQ" value="3.6" /> < referenceRange> <observationRange> <text>3.5-5.3</text> </observationRange> </referenceRange> </observation > </component> <component> <observation moodCode="EVN" classCode="OBS"> <templateId root="16.840.1.982199....4.2" /> <id nullFlavor="NA" /> <code codeSystem="local" code="CMETHOD " displayName="METHOD" /> <statusCode code="completed" /> < effectiveTime value="041570720023" /> <value unit="" xsi:type="PQ" value="Bedside" /> <referenceRange> <observationRange> <text /> </observationRange> </referenceRange> </observation> </component> <component> <observation moodCode="EVN" classCode="OBS"> <templateId root= "16.840.1.929407.10..22.4.2" /> <id nullFlavor="NA" /> < code codeSystem="local" code="GAP" displayName="ANION GAP" /> < statusCode code="completed" /> <effectiveTime value="648257141897" /> <value unit="mmol/L" xsi:type="PQ" value="17" /> < referenceRange> <observationRange> <text>10-20</text> </observationRange> </referenceRange> </observation> </component> <component> <observation moodCode="EVN" classCode= "OBS"> <templateId root="16.840.1.786163..22.4.2" /> < id nullFlavor="NA" /> <code codeSystem="local" code="HMETHOD" displayName="METHOD" /> <statusCode code="completed" /> < effectiveTime value="282154876581" /> <value unit="" xsi:type="PQ" value="Bedside" /> <referenceRange> <observationRange> <text /> </observationRange> </referenceRange> </observation> </component> <component> <observation moodCode="EVN" classCode="OBS"> <templateId root= "06.08.840.1.982871.1022.4.2" /> <id nullFlavor="NA" /> < code codeSystem="local" code="GLU" displayName="GLUCOSE" /> < statusCode code="completed" /> <effectiveTime value="470042308031" /> <value unit="mg/dL" xsi:type="PQ" value="87" /> < referenceRange> <observationRange> <text>70-99</text> </observationRange> </referenceRange> </observation> </component> <component> <observation moodCode="EVN" classCode= "OBS"> <templateId root="216.840.1.780779.10..22.4.2" /> < id nullFlavor="NA" /> <code codeSystem="local" code="BUN" displayName= "BLOOD UREA NITROGEN" /> <statusCode code="completed" /> < effectiveTime value="169245936894" /> <value unit="mg/dL" xsi:type="PQ " value="11" /> <referenceRange> <observationRange> <text>7-20</text> </observationRange> </referenceRange > </observation> </component> <component> <observation moodCode="EVN" classCode="OBS"> <templateId root= "216.840.1.653305.10...4.2" /> <id nullFlavor="NA" /> < code codeSystem="local" code="CREAT" displayName="CREATININE" /> < statusCode code="completed" /> <effectiveTime value="080335269697" /> <value unit="mg/dL" xsi:type="PQ" value="0.7" /> < referenceRange> <observationRange> <text>0.6-1.0</text> </observationRange> </referenceRange> </observation > </component> <component> <observation moodCode="EVN" classCode="OBS"> <templateId root="16.840.1.000342.10..22.4.2" /> <id nullFlavor="NA" /> <code codeSystem="local" code="HGBT" displayName="HEMOGLOBIN" /> <statusCode code="completed" /> < effectiveTime value="568425930389" /> <value unit="gm/dL" xsi:type="PQ " value="15.6" /> <referenceRange> <observationRange> <text>12.0-16.0</text> </observationRange> </ referenceRange> </observation> </component> <component> <observation moodCode="EVN" classCode="OBS"> <templateId root= "216.840.1.204192.10..22.4.2" /> <id nullFlavor="NA" /> < code codeSystem="local" code="HCTT" displayName="HEMATOCRIT" /> < statusCode code="completed" /> <effectiveTime value="782389471251" /> <value unit="%" xsi:type="PQ" value="46.0" /> < referenceRange> <observationRange> <text>37.0-47.0</text > </observationRange> </referenceRange> </observation > </component> <component> <observation moodCode="EVN" classCode="OBS"> <templateId root="06.08.840.1.710099.10.22.4.2" /> <id nullFlavor="NA" /> <code codeSystem="local" code="NA" displayName="SODIUM" /> <statusCode code="completed" /> < effectiveTime value="361916269230" /> <value unit="mmol/L" xsi:type="PQ " value="139" /> <referenceRange> <observationRange> <text>135-148</text> </observationRange> </ referenceRange> </observation> </component> <component> <observation moodCode="EVN" classCode="OBS"> <templateId root= "06.08.840.1.286714.10.22.4.2" /> <id nullFlavor="NA" /> < code codeSystem="local" code="CL" displayName="CHLORIDE" /> < statusCode code="completed" /> <effectiveTime value="499669710554" /> <value unit="mmol/L" xsi:type="PQ" value="104" /> < referenceRange> <observationRange> <text>98-110</text> </observationRange> </referenceRange> </observation> </component> <component> <observation moodCode="EVN" classCode ="OBS"> <templateId root="216.840.1.262484.10..22.4.2" /> < id nullFlavor="NA" /> <code codeSystem="local" code="CO2" displayName= "CARBON DIOXIDE" /> <statusCode code="completed" /> < effectiveTime value="180866861787" /> <value unit="mmol/L" xsi:type="PQ " value="22" /> <referenceRange> <observationRange> <text>21-32</text> </observationRange> </ referenceRange> </observation> </component> <component> <observation moodCode="EVN" classCode="OBS"> <templateId root= "16.840.1.297896.10...4.2" /> <id nullFlavor="NA" /> < code codeSystem="local" code="CAION" displayName="CALCIUM IONIZED" /> < statusCode code="completed" /> <effectiveTime value="284323364025" /> <value unit="mg/dL" xsi:type="PQ" value="4.7" /> < referenceRange> <observationRange> <text>4.5-5.3</text> </observationRange> </referenceRange> </observation > </component> </organizer> </entry> <entry> <organizer moodCode= "EVN" classCode="BATTERY"> <templateId root="216.840.1.122336.10..22.4.1 " /> <id nullFlavor="NA" /> <code codeSystem="local" code="CBCWD" displayName="CBC With Platelet and Differential" /> <statusCode code= "completed" /> <component> <observation moodCode="EVN" classCode= "OBS"> <templateId root="06.08.840.1.715965.10.4.2" /> < id nullFlavor="NA" /> <code codeSystem="local" code="ABASR" displayName ="Absolute Basophils" /> <statusCode code="completed" /> < effectiveTime value="770387575664" /> <value unit="10*3/uL" xsi:type= "PQ" value="0.01" /> <referenceRange> <observationRange> <text>0.00-0.20</text> </observationRange> </ referenceRange> </observation> </component> <component> <observation moodCode="EVN" classCode="OBS"> <templateId root= "840.1.758788.02.09.224.2" /> <id nullFlavor="NA" /> < code codeSystem="local" code="AEOSR" displayName="Absolute Eosinophils" /> <statusCode code="completed" /> <effectiveTime value="474689709464 " /> <value unit="10*3/uL" xsi:type="PQ" value="0.00" /> < referenceRange> <observationRange> <text>0.00-0.50</text > </observationRange> </referenceRange> </observation > </component> <component> <observation moodCode="EVN" classCode="OBS"> <templateId root="06.08.840.1.209508.02.09.22.4.2" /> <id nullFlavor="NA" /> <code codeSystem="local" code="ALYMR" displayName="Absolute Lymphocytes" /> <statusCode code="completed" /> <effectiveTime value="[id number]" /> <value unit="10*3/uL" xsi:type="PQ" value="1.08" /> <referenceRange> < observationRange> <text>0.80-3.30</text> </ observationRange> </referenceRange> </observation> </ component> <component> <observation moodCode="EVN" classCode="OBS"> <templateId root="216.840.1.450220.1022.4.2" /> <id nullFlavor="NA" /> <code codeSystem="local" code="AMONR" displayName= "Absolute Monocytes" /> <statusCode code="completed" /> < effectiveTime value="" /> <value unit="10*3/uL" xsi:type= "PQ" value="0.06" /> <interpretationCode codeSystem="local" code="*" / > <referenceRange> <observationRange> <text> 0.30-1.00</text> </observationRange> </referenceRange> </observation> </component> <component> <observation moodCode="EVN" classCode="OBS"> <templateId root= "216.840.1.020454.102022.4.2" /> <id nullFlavor="NA" /> < code codeSystem="local" code="ASEGR" displayName="Absolute Neutrophils" /> <statusCode code="completed" /> <effectiveTime value=" " /> <value unit="10*3/uL" xsi:type="PQ" value="9.49" /> < interpretationCode codeSystem="local" code="*" /> <referenceRange> <observationRange> <text>1.90-7.00</text> </ observationRange> </referenceRange> </observation> </ component> <component> <observation moodCode="EVN" classCode="OBS"> <templateId root="16.840.1.630907.10.20.22.4.2" /> <id nullFlavor="NA" /> <code codeSystem="local" code="BASOR" displayName= "Basophils" /> <statusCode code="completed" /> <effectiveTime value="" /> <value unit="%" xsi:type="PQ" value="0" /> <referenceRange> <observationRange> <text>0-2< /text> </observationRange> </referenceRange> </ observation> </component> <component> <observation moodCode= "EVN" classCode="OBS"> <templateId root="16.840.1.318041.1022.4.2 " /> <id nullFlavor="NA" /> <code codeSystem="local" code= "EOSR" displayName="Eosinophils" /> <statusCode code="completed" /> <effectiveTime value="" /> <value unit="%" xsi: type="PQ" value="0" /> <referenceRange> <observationRange> <text>0-4</text> </observationRange> </ referenceRange> </observation> </component> <component> <observation moodCode="EVN" classCode="OBS"> <templateId root= "06.08.840.1.166696.102022.4.2" /> <id nullFlavor="NA" /> < code codeSystem="local" code="HCT" displayName="HCT" /> <statusCode code="completed" /> <effectiveTime value="" /> < value unit="%" xsi:type="PQ" value="43.8" /> <referenceRange> <observationRange> <text>37.0-47.0</text> </ observationRange> </referenceRange> </observation> </ component> <component> <observation moodCode="EVN" classCode="OBS"> <templateId root="216.840.1.590264.10.4.2" /> <id nullFlavor="NA" /> <code codeSystem="local" code="HGB" displayName="HGB " /> <statusCode code="completed" /> <effectiveTime value= "" /> <value unit="g/dL" xsi:type="PQ" value="14.8" /> <referenceRange> <observationRange> <text>12.0- 16.0</text> </observationRange> </referenceRange> </ observation> </component> <component> <observation moodCode= "EVN" classCode="OBS"> <templateId root="06.08.840.1.547352.02.09.224.2 " /> <id nullFlavor="NA" /> <code codeSystem="local" code= "IMGA" displayName="Immature Granulocytes" /> <statusCode code= "completed" /> <effectiveTime value="" /> <value unit="%" xsi:type="PQ" value="0.3" /> <referenceRange> < observationRange> <text>0.0-1.0</text> </ observationRange> </referenceRange> </observation> </ component> <component> <observation moodCode="EVN" classCode="OBS"> <templateId root="216.840.1.681509.02.09.22.4.2" /> <id nullFlavor="NA" /> <code codeSystem="local" code="LYMPR" displayName= "Lymphocytes" /> <statusCode code="completed" /> < effectiveTime value="" /> <value unit="%" xsi:type="PQ " value="10" /> <interpretationCode codeSystem="local" code="*" /> <referenceRange> <observationRange> <text>20-46</ text> </observationRange> </referenceRange> </ observation> </component> <component> <observation moodCode= "EVN" classCode="OBS"> <templateId root="216.840.1.249590.10..4.2 " /> <id nullFlavor="NA" /> <code codeSystem="local" code="MCH " displayName="MCH" /> <statusCode code="completed" /> < effectiveTime value="[id number]" /> <value unit="pg" xsi:type="PQ" value="33.8" /> <interpretationCode codeSystem="local" code="*" /> <referenceRange> <observationRange> <text>27.0- 32.0</text> </observationRange> </referenceRange> </ observation> </component> <component> <observation moodCode= "EVN" classCode="OBS"> <templateId root="06.08.840.1.675396.02.09.22.4.2 " /> <id nullFlavor="NA" /> <code codeSystem="local" code= "MCHC" displayName="MCHC" /> <statusCode code="completed" /> < effectiveTime value="343612755445" /> <value unit="g/dL" xsi:type="PQ" value="33.8" /> <referenceRange> <observationRange> <text>32.0-36.0</text> </observationRange> </ referenceRange> </observation> </component> <component> <observation moodCode="EVN" classCode="OBS"> <templateId root= "216.840.1.205880.02.09.22.4.2" /> <id nullFlavor="NA" /> < code codeSystem="local" code="MCV" displayName="MCV" /> <statusCode code="completed" /> <effectiveTime value="" /> < value unit="fL" xsi:type="PQ" value="100.0" /> <interpretationCode codeSystem="local" code="*" /> <referenceRange> < observationRange> <text>82.0-99.0</text> </ observationRange> </referenceRange> </observation> </ component> <component> <observation moodCode="EVN" classCode="OBS"> <templateId root="216.840.1.789288.02.09.22.4.2" /> <id nullFlavor="NA" /> <code codeSystem="local" code="MONOR" displayName= "Monocytes" /> <statusCode code="completed" /> <effectiveTime value="" /> <value unit="%" xsi:type="PQ" value="1" /> <interpretationCode codeSystem="local" code="*" /> < referenceRange> <observationRange> <text>4-11</text> </observationRange> </referenceRange> </observation> </component> <component> <observation moodCode="EVN" classCode= "OBS"> <templateId root="16.840.1.060533.1022.4.2" /> < id nullFlavor="NA" /> <code codeSystem="local" code="MPV" displayName= "MPV" /> <statusCode code="completed" /> <effectiveTime value= "" /> <value unit="fL" xsi:type="PQ" value="9.3" /> <interpretationCode codeSystem="local" code="*" /> <referenceRange> <observationRange> <text>9.4-12.4</text> </ observationRange> </referenceRange> </observation> </ component> <component> <observation moodCode="EVN" classCode="OBS"> <templateId root="216.840.1.572350.02.09.22.4.2" /> <id nullFlavor="NA" /> <code codeSystem="local" code="SEGR" displayName= "Neutrophils" /> <statusCode code="completed" /> < effectiveTime value="" /> <value unit="%" xsi:type="PQ " value="89" /> <interpretationCode codeSystem="local" code="*" /> <referenceRange> <observationRange> <text>51-75</ text> </observationRange> </referenceRange> </ observation> </component> <component> <observation moodCode= "EVN" classCode="OBS"> <templateId root="06.08.840.1.237302.02.09.224.2 " /> <id nullFlavor="NA" /> <code codeSystem="local" code= "NRBCA" displayName="Nucleated RBC Automated" /> <statusCode code= "completed" /> <effectiveTime value="" /> <value unit="/100WBC" xsi:type="PQ" value="0.0" /> <referenceRange> <observationRange> <text /> </observationRange> </referenceRange> </observation> </component> <component> <observation moodCode="EVN" classCode="OBS"> <templateId root= "06.08.840.1.824696.02.09.22.4.2" /> <id nullFlavor="NA" /> < code codeSystem="local" code="PLT" displayName="Platelet Count" /> < statusCode code="completed" /> <effectiveTime value="" /> <value unit="K/uL" xsi:type="PQ" value="342" /> < referenceRange> <observationRange> <text>150-400</text> </observationRange> </referenceRange> </observation > </component> <component> <observation moodCode="EVN" classCode="OBS"> <templateId root="216.840.1.272468.10..22.4.2" /> <id nullFlavor="NA" /> <code codeSystem="local" code="RBC" displayName="RBC" /> <statusCode code="completed" /> < effectiveTime value="" /> <value unit="10*6/uL" xsi:type= "PQ" value="4.38" /> <referenceRange> <observationRange> <text>4.00-5.20</text> </observationRange> </ referenceRange> </observation> </component> <component> <observation moodCode="EVN" classCode="OBS"> <templateId root= "06.08.840.1.713656...4.2" /> <id nullFlavor="NA" /> < code codeSystem="local" code="RDW" displayName="RDW" /> <statusCode code="completed" /> <effectiveTime value="" /> < value unit="%" xsi:type="PQ" value="14.1" /> <referenceRange> <observationRange> <text>11.5-14.5</text> </ observationRange> </referenceRange> </observation> </ component> <component> <observation moodCode="EVN" classCode="OBS"> <templateId root="16.840.1.562604.10..22.4.2" /> <id nullFlavor="NA" /> <code codeSystem="local" code="WBCIR" displayName= "WBC" /> <statusCode code="completed" /> <effectiveTime value= "808499331720" /> <value unit="K/uL" xsi:type="PQ" value="10.7" /> <referenceRange> <observationRange> <text>4.8-10.8 </text> </observationRange> </referenceRange> </ observation> </component> </organizer> </entry> <entry> <organizer moodCode="EVN" classCode="BATTERY"> <templateId root= "16.840.1.098149.10..22.4.1" /> <id nullFlavor="NA" /> <code codeSystem="local" code="CMP" displayName="Comprehensive Metabolic Panel (CMP)" /> <statusCode code="completed" /> <component> <observation moodCode="EVN" classCode="OBS"> <templateId root= "16.840.1.742561.10..22.4.2" /> <id nullFlavor="NA" /> < code codeSystem="local" code="ALB" displayName="Albumin" /> < statusCode code="completed" /> <effectiveTime value="810340978567" /> <value unit="g/dL" xsi:type="PQ" value="5.1" /> < interpretationCode codeSystem="local" code="*" /> <referenceRange> <observationRange> <text>3.5-4.8</text> </ observationRange> </referenceRange> </observation> </ component> <component> <observation moodCode="EVN" classCode="OBS"> <templateId root="06.08.840.1.771489.10.20.22.4.2" /> <id nullFlavor="NA" /> <code codeSystem="local" code="ALP" displayName= "Alkaline Phosphatase" /> <statusCode code="completed" /> < effectiveTime value="" /> <value unit="U/L" xsi:type="PQ" value="60" /> <referenceRange> <observationRange> <text>26-104</text> </observationRange> </referenceRange > </observation> </component> <component> <observation moodCode="EVN" classCode="OBS"> <templateId root= "06.08.840.1.855562.10...4.2" /> <id nullFlavor="NA" /> < code codeSystem="local" code="ALT" displayName="ALT (SGPT)" /> < statusCode code="completed" /> <effectiveTime value="" /> <value unit="U/L" xsi:type="PQ" value="25" /> <referenceRange > <observationRange> <text>14-54</text> </ observationRange> </referenceRange> </observation> </ component> <component> <observation moodCode="EVN" classCode="OBS"> <templateId root="06.08.840.1.224559....4.2" /> <id nullFlavor="NA" /> <code codeSystem="local" code="AGAP" displayName= "Anion Gap" /> <statusCode code="completed" /> <effectiveTime value="" /> <value unit="mEq/L" xsi:type="PQ" value="11" / > <referenceRange> <observationRange> <text>3- 20</text> </observationRange> </referenceRange> </ observation> </component> <component> <observation moodCode= "EVN" classCode="OBS"> <templateId root="06.08.840.1.380357....4.2 " /> <id nullFlavor="NA" /> <code codeSystem="local" code="AST " displayName="AST (SGOT)" /> <statusCode code="completed" /> <effectiveTime value="" /> <value unit="U/L" xsi:type="PQ" value="25" /> <referenceRange> <observationRange> <text>15-41</text> </observationRange> </referenceRange > </observation> </component> <component> <observation moodCode="EVN" classCode="OBS"> <templateId root= "216.840.1.270789.10..22.4.2" /> <id nullFlavor="NA" /> < code codeSystem="local" code="BILIT" displayName="Bilirubin Total" /> < statusCode code="completed" /> <effectiveTime value="" /> <value unit="mg/dL" xsi:type="PQ" value="0.6" /> < referenceRange> <observationRange> <text>0.2-1.2</text> </observationRange> </referenceRange> </observation > </component> <component> <observation moodCode="EVN" classCode="OBS"> <templateId root="216.840.1.802878.10..22.4.2" /> <id nullFlavor="NA" /> <code codeSystem="local" code="BUN" displayName="BUN" /> <statusCode code="completed" /> < effectiveTime value="" /> <value unit="mg/dL" xsi:type="PQ " value="8" /> <referenceRange> <observationRange> <text>4-20</text> </observationRange> </referenceRange > </observation> </component> <component> <observation moodCode="EVN" classCode="OBS"> <templateId root= "216.840.1.257835.10.22.4.2" /> <id nullFlavor="NA" /> < code codeSystem="local" code="CA" displayName="Calcium" /> <statusCode code="completed" /> <effectiveTime value="085227560184" /> < value unit="mg/dL" xsi:type="PQ" value="9.9" /> <referenceRange> <observationRange> <text>8.6-10.0</text> </ observationRange> </referenceRange> </observation> </ component> <component> <observation moodCode="EVN" classCode="OBS"> <templateId root="16.840.1.255923.02.09.22.4.2" /> <id nullFlavor="NA" /> <code codeSystem="local" code="CL" displayName= "Chloride" /> <statusCode code="completed" /> <effectiveTime value="172770905819" /> <value unit="mEq/L" xsi:type="PQ" value="105" / > <referenceRange> <observationRange> <text>99- 109</text> </observationRange> </referenceRange> </ observation> </component> <component> <observation moodCode= "EVN" classCode="OBS"> <templateId root="16.840.1.113400.10.2022.4.2 " /> <id nullFlavor="NA" /> <code codeSystem="local" code="CO2 " displayName="CO2" /> <statusCode code="completed" /> < effectiveTime value="174875138046" /> <value unit="mEq/L" xsi:type="PQ " value="19" /> <interpretationCode codeSystem="local" code="*" /> <referenceRange> <observationRange> <text>22-32</ text> </observationRange> </referenceRange> </ observation> </component> <component> <observation moodCode= "EVN" classCode="OBS"> <templateId root="216.840.1.694002.02.09.22.4.2 " /> <id nullFlavor="NA" /> <code codeSystem="local" code= "CREAT" displayName="Creatinine" /> <statusCode code="completed" /> <effectiveTime value="" /> <value unit="mg/dL" xsi: type="PQ" value="0.60" /> <referenceRange> <observationRange > <text>0.44-1.03</text> </observationRange> </ referenceRange> </observation> </component> <component> <observation moodCode="EVN" classCode="OBS"> <templateId root= "06.08.840.1.325034.02.09.22.4.2" /> <id nullFlavor="NA" /> < code codeSystem="local" code="GLOB" displayName="Globulin" /> < statusCode code="completed" /> <effectiveTime value="" /> <value unit="g/dL" xsi:type="PQ" value="3.8" /> < referenceRange> <observationRange> <text>1.9-4.3</text> </observationRange> </referenceRange> </observation > </component> <component> <observation moodCode="EVN" classCode="OBS"> <templateId root="16.840.1.791801.10.4.2" /> <id nullFlavor="NA" /> <code codeSystem="local" code="GLU" displayName="Glucose" /> <statusCode code="completed" /> < effectiveTime value="043880136515" /> <value unit="mg/dL" xsi:type="PQ " value="119" /> <interpretationCode codeSystem="local" code="*" /> <referenceRange> <observationRange> <text>70-100< /text> </observationRange> </referenceRange> </ observation> </component> <component> <observation moodCode= "EVN" classCode="OBS"> <templateId root="06.08.840.1.097455.1022.4.2 " /> <id nullFlavor="NA" /> <code codeSystem="local" code="K" displayName="Potassium" /> <statusCode code="completed" /> < effectiveTime value="" /> <value unit="mEq/L" xsi:type="PQ " value="4.1" /> <referenceRange> <observationRange> <text>3.6-5.1</text> </observationRange> </ referenceRange> </observation> </component> <component> <observation moodCode="EVN" classCode="OBS"> <templateId root= "840.1.371343.22.4.2" /> <id nullFlavor="NA" /> < code codeSystem="local" code="TP" displayName="Protein" /> <statusCode code="completed" /> <effectiveTime value="" /> < value unit="g/dL" xsi:type="PQ" value="8.9" /> <interpretationCode codeSystem="local" code="*" /> <referenceRange> < observationRange> <text>6.1-7.9</text> </ observationRange> </referenceRange> </observation> </ component> <component> <observation moodCode="EVN" classCode="OBS"> <templateId root="840.1.675216.10.22.4.2" /> <id nullFlavor="NA" /> <code codeSystem="local" code="NA" displayName= "Sodium" /> <statusCode code="completed" /> <effectiveTime value="370823090434" /> <value unit="mEq/L" xsi:type="PQ" value="135" / > <interpretationCode codeSystem="local" code="*" /> < referenceRange> <observationRange> <text>136-144</text> </observationRange> </referenceRange> </observation > </component> </organizer> </entry> <entry> <organizer moodCode= "EVN" classCode="BATTERY"> <templateId root="216.840.1.119390.10..22.4.1 " /> <id nullFlavor="NA" /> <code codeSystem="local" code="ALC" displayName="Alcohol, Blood" /> <statusCode code="completed" /> < component> <observation moodCode="EVN" classCode="OBS"> < templateId root="16.840.1.566112.10..22.4.2" /> <id nullFlavor="NA " /> <code codeSystem="local" code="ALC" displayName="Alcohol, Blood" / > <statusCode code="completed" /> <effectiveTime value= "705639214229" /> <value unit="mg/dL" xsi:type="PQ" value="Not Detected " /> <referenceRange> <observationRange> <text /> </observationRange> </referenceRange> </ observation> </component> </organizer> </entry> <entry> <organizer moodCode="EVN" classCode="BATTERY"> <templateId root= "16.840.1.234834.10..22.4.1" /> <id nullFlavor="NA" /> <code codeSystem="local" code="ACETM" displayName="Acetaminophen" /> <statusCode code="completed" /> <component> <observation moodCode="EVN" classCode="OBS"> <templateId root="2.16.840.1.215953.10..22.4.2" /> <id nullFlavor="NA" /> <code codeSystem="local" code="ACETM" displayName="Acetaminophen" /> <statusCode code="completed" /> <effectiveTime value="502334630137" /> <value unit="mcg/mL" xsi:type= "PQ" value="<10" /> <referenceRange> <observationRange> <text>10-30</text> </observationRange> </ referenceRange> </observation> </component> </organizer> </entry > <entry> <organizer moodCode="EVN" classCode="BATTERY"> <templateId root="2.16.840.1.609171.10..22.4.1" /> <id nullFlavor="NA" /> <code codeSystem="local" code="SALIC" displayName="Salicylate" /> <statusCode code="completed" /> <component> <observation moodCode="EVN" classCode="OBS"> <templateId root="2.16.840.1.470046.10..22.4.2" /> <id nullFlavor="NA" /> <code codeSystem="local" code="SALIC" displayName="Salicylate" /> <statusCode code="completed" /> < effectiveTime value="834427256427" /> <value unit="mg/dL" xsi:type="PQ " value="<4" /> <referenceRange> <observationRange> <text>0-30</text> </observationRange> </ referenceRange> </observation> </component> </organizer> </entry > <entry> <organizer moodCode="EVN" classCode="BATTERY"> <templateId root="06.08.840.1.479207.02.09.22.4.1" /> <id nullFlavor="NA" /> <code codeSystem="local" code="GFR" displayName="eGFR" /> <statusCode code= "completed" /> <component> <observation moodCode="EVN" classCode= "OBS"> <templateId root="840.1.544655.02.09.22.4.2" /> < id nullFlavor="NA" /> <code codeSystem="local" code="GFR" displayName= "eGFR" /> <statusCode code="completed" /> <effectiveTime value ="" /> <value unit="mL/min" xsi:type="PQ" value=">60" / > <referenceRange> <observationRange> <text>&gt ;60</text> </observationRange> </referenceRange> </ observation> </component> </organizer> </entry> <entry> <organizer moodCode="EVN" classCode="BATTERY"> <templateId root= "840.1.788781.02.09.22.4.1" /> <id nullFlavor="NA" /> <code codeSystem="local" code="PREGN" displayName=" Screen, Urine NPT" /> <statusCode code="completed" /> <component> <observation moodCode ="EVN" classCode="OBS"> <templateId root= "06.08.840.1.774276.02.09.22.4.2" /> <id nullFlavor="NA" /> < code codeSystem="local" code="PREGN" displayName=" Screen, Urine NPT" / > <statusCode code="completed" /> <effectiveTime value= "" /> <value unit="NA" xsi:type="PQ" value="Negative" /> <referenceRange> <observationRange> <text /> </observationRange> </referenceRange> </observation> </component> </organizer> </entry> <entry> <organizer moodCode="EVN " classCode="BATTERY"> <templateId root="16.840.1.598611.10..22.4.1" / > <id nullFlavor="NA" /> <code codeSystem="local" code="UA" displayName="Urinalysis with reflex microscopic" /> <statusCode code= "completed" /> <component> <observation moodCode="EVN" classCode= "OBS"> <templateId root="16.840.1.585782.02.09.22.4.2" /> < id nullFlavor="NA" /> <code codeSystem="local" code="UAPP" displayName= "Appearance" /> <statusCode code="completed" /> < effectiveTime value="858089413844" /> <value unit="NA" xsi:type="PQ" value="Cloudy" /> <interpretationCode codeSystem="local" code="*" /> <referenceRange> <observationRange> <text /> </observationRange> </referenceRange> </observation> </component> <component> <observation moodCode="EVN" classCode= "OBS"> <templateId root="06.08.840.1.900719.02.09.22.4.2" /> < id nullFlavor="NA" /> <code codeSystem="local" code="UBIL" displayName= "Bilirubin" /> <statusCode code="completed" /> <effectiveTime value="002844440177" /> <value unit="NA" xsi:type="PQ" value="Negative " /> <referenceRange> <observationRange> <text> Negative</text> </observationRange> </referenceRange> </observation> </component> <component> <observation moodCode ="EVN" classCode="OBS"> <templateId root= "06.08.840.1.097513.10..4.2" /> <id nullFlavor="NA" /> < code codeSystem="local" code="UBLD" displayName="Blood" /> <statusCode code="completed" /> <effectiveTime value="" /> < value unit="NA" xsi:type="PQ" value="Negative" /> <referenceRange> <observationRange> <text>Negative</text> </ observationRange> </referenceRange> </observation> </ component> <component> <observation moodCode="EVN" classCode="OBS"> <templateId root="16.840.1.989665...4.2" /> <id nullFlavor="NA" /> <code codeSystem="local" code="UCOLR" displayName= "Color" /> <statusCode code="completed" /> <effectiveTime value="" /> <value unit="NA" xsi:type="PQ" value="Yellow" / > <referenceRange> <observationRange> <text /> </observationRange> </referenceRange> </observation > </component> <component> <observation moodCode="EVN" classCode="OBS"> <templateId root="06.08.840.1.420746.02.09.22.4.2" /> <id nullFlavor="NA" /> <code codeSystem="local" code="UGLU" displayName="Glucose, Urine" /> <statusCode code="completed" /> <effectiveTime value="" /> <value unit="" xsi:type="PQ" value="Negative" /> <referenceRange> <observationRange> <text>Negative</text> </observationRange> </ referenceRange> </observation> </component> <component> <observation moodCode="EVN" classCode="OBS"> <templateId root= "16.840.1.274563.02.09.22.4.2" /> <id nullFlavor="NA" /> < code codeSystem="local" code="UKET" displayName="Ketones" /> < statusCode code="completed" /> <effectiveTime value="525234148140" /> <value unit="" xsi:type="PQ" value="Trace" /> < interpretationCode codeSystem="local" code="*" /> <referenceRange> <observationRange> <text>Negative</text> </ observationRange> </referenceRange> </observation> </ component> <component> <observation moodCode="EVN" classCode="OBS"> <templateId root="06.08.840.1.834780.02.09.224.2" /> <id nullFlavor="NA" /> <code codeSystem="local" code="ULEU" displayName= "Leukocyte Esterase" /> <statusCode code="completed" /> < effectiveTime value="707524685266" /> <value unit="NA" xsi:type="PQ" value="Negative" /> <referenceRange> <observationRange> <text>Negative</text> </observationRange> </ referenceRange> </observation> </component> <component> <observation moodCode="EVN" classCode="OBS"> <templateId root= "06.08.840.1.144600.02.09.22.4.2" /> <id nullFlavor="NA" /> < code codeSystem="local" code="UNIT" displayName="Nitrites" /> < statusCode code="completed" /> <effectiveTime value="" /> <value unit="NA" xsi:type="PQ" value="Negative" /> < referenceRange> <observationRange> <text>Negative</text > </observationRange> </referenceRange> </observation > </component> <component> <observation moodCode="EVN" classCode="OBS"> <templateId root="06.08.840.1.191287.10.20.22.4.2" /> <id nullFlavor="NA" /> <code codeSystem="local" code="UPH" displayName="pH" /> <statusCode code="completed" /> < effectiveTime value="[id number]" /> <value unit="NA" xsi:type="PQ" value="5.0" /> <referenceRange> <observationRange> <text>5.0-8.0</text> </observationRange> </ referenceRange> </observation> </component> <component> <observation moodCode="EVN" classCode="OBS"> <templateId root= "840.1.155153.10..4.2" /> <id nullFlavor="NA" /> < code codeSystem="local" code="UPRO" displayName="Protein" /> < statusCode code="completed" /> <effectiveTime value="369003477361" /> <value unit="NA" xsi:type="PQ" value="Pos 1+" /> < interpretationCode codeSystem="local" code="*" /> <referenceRange> <observationRange> <text>Negative</text> </ observationRange> </referenceRange> </observation> </ component> <component> <observation moodCode="EVN" classCode="OBS"> <templateId root="06.08.840.1.934328.10.20.22.4.2" /> <id nullFlavor="NA" /> <code codeSystem="local" code="USPG" displayName= "Specific Diboll" /> <statusCode code="completed" /> < effectiveTime value="100869730887" /> <value unit="NA" xsi:type="PQ" value="1.040" /> <interpretationCode codeSystem="local" code="*" /> <referenceRange> <observationRange> <text>1.003- 1.030</text> </observationRange> </referenceRange> </ observation> </component> <component> <observation moodCode= "EVN" classCode="OBS"> <templateId root="2.16.840.1.440719.10..22.4.2 " /> <id nullFlavor="NA" /> <code codeSystem="local" code= "UTYP" displayName="UA Collection type" /> <statusCode code="completed " /> <effectiveTime value="498899186826" /> <value unit="NA" xsi:type="PQ" value="Not Specified" /> <referenceRange> < observationRange> <text /> </observationRange> </referenceRange> </observation> </component> <component> <observation moodCode="EVN" classCode="OBS"> <templateId root= "2.16.840.1.073310.10.20.22.4.2" /> <id nullFlavor="NA" /> < code codeSystem="local" code="UURO" displayName="Urobilinogen" /> < statusCode code="completed" /> <effectiveTime value="069429410362" /> <value unit="mg/dL" xsi:type="PQ" value="Negative" /> < referenceRange> <observationRange> <text><1.0</text> </observationRange> </referenceRange> </observation > </component> </organizer> </entry> <entry> <organizer moodCode= "EVN" classCode="BATTERY"> <templateId root="06.08.840.1.023867.10..4.1 " /> <id nullFlavor="NA" /> <code codeSystem="local" code="UDRGH" displayName="Urine Drug Screen" /> <statusCode code="completed" /> < component> <observation moodCode="EVN" classCode="OBS"> < templateId root="840.1.548917.02.09.22.4.2" /> <id nullFlavor="NA " /> <code codeSystem="local" code="UAMP1" displayName="Amph/Meth/ Ecstasy" /> <statusCode code="completed" /> <effectiveTime value="249974187681" /> <value unit="NA" xsi:type="PQ" value="Negative " /> <referenceRange> <observationRange> <text /> </observationRange> </referenceRange> </ observation> </component> <component> <observation moodCode= "EVN" classCode="OBS"> <templateId root="840.1.483536.02.09.224.2 " /> <id nullFlavor="NA" /> <code codeSystem="local" code= "UBAR1" displayName="Barbiturates" /> <statusCode code="completed" /> <effectiveTime value="088697908043" /> <value unit="NA" xsi: type="PQ" value="Negative" /> <referenceRange> < observationRange> <text /> </observationRange> </referenceRange> </observation> </component> <component> <observation moodCode="EVN" classCode="OBS"> <templateId root= "06.08.840.1.387613.02.09.22.4.2" /> <id nullFlavor="NA" /> < code codeSystem="local" code="UBEN1" displayName="Benzodiazepine" /> < statusCode code="completed" /> <effectiveTime value="" /> <value unit="NA" xsi:type="PQ" value="Negative" /> < referenceRange> <observationRange> <text /> < /observationRange> </referenceRange> </observation> </ component> <component> <observation moodCode="EVN" classCode="OBS"> <templateId root="06.08.840.1.805451.02.09.22.4.2" /> <id nullFlavor="NA" /> <code codeSystem="local" code="UCAN1" displayName= "Cannabinoid" /> <statusCode code="completed" /> < effectiveTime value="" /> <value unit="NA" xsi:type="PQ" value="Negative" /> <referenceRange> <observationRange> <text /> </observationRange> </referenceRange> </observation> </component> <component> <observation moodCode="EVN" classCode="OBS"> <templateId root= "840.1.156930.02.09.22.4.2" /> <id nullFlavor="NA" /> < code codeSystem="local" code="UCOC1" displayName="Cocaine" /> < statusCode code="completed" /> <effectiveTime value="475516875975" /> <value unit="NA" xsi:type="PQ" value="Negative" /> < referenceRange> <observationRange> <text /> < /observationRange> </referenceRange> </observation> </ component> <component> <observation moodCode="EVN" classCode="OBS"> <templateId root="06.08.840.1.895392.02.09.22.4.2" /> <id nullFlavor="NA" /> <code codeSystem="local" code="UMTD1" displayName= "EDDP (Methadone met.)" /> <statusCode code="completed" /> < effectiveTime value="409596092380" /> <value unit="NA" xsi:type="PQ" value="Negative" /> <referenceRange> <observationRange> <text /> </observationRange> </referenceRange> </observation> </component> <component> <observation moodCode="EVN" classCode="OBS"> <templateId root= "216.840.1.311826.10..4.2" /> <id nullFlavor="NA" /> < code codeSystem="local" code="UOPI1" displayName="Opiate" /> < statusCode code="completed" /> <effectiveTime value="439849320459" /> <value unit="NA" xsi:type="PQ" value="Negative" /> < referenceRange> <observationRange> <text /> < /observationRange> </referenceRange> </observation> </ component> <component> <observation moodCode="EVN" classCode="OBS"> <templateId root="216.840.1.378205.02.09.22.4.2" /> <id nullFlavor="NA" /> <code codeSystem="local" code="UPCP1" displayName= "Phencyclidine (PCP)" /> <statusCode code="completed" /> < effectiveTime value="946566447202" /> <value unit="NA" xsi:type="PQ" value="Negative" /> <referenceRange> <observationRange> <text /> </observationRange> </referenceRange> </observation> </component> </organizer> </entry> <entry> < organizer moodCode="EVN" classCode="BATTERY"> <templateId root= "216.840.1.356579.02.09.22.4.1" /> <id nullFlavor="NA" /> <code codeSystem="local" code="UMIC" displayName="Urine Microscopic" /> < statusCode code="completed" /> <component> <observation moodCode= "EVN" classCode="OBS"> <templateId root="840.1.065568.02.09.224.2 " /> <id nullFlavor="NA" /> <code codeSystem="local" code= "UBAC" displayName="Bacteria" /> <statusCode code="completed" /> <effectiveTime value="440826651024" /> <value unit="NA" xsi:type= "PQ" value="Numerous" /> <interpretationCode codeSystem="local" code="* " /> <referenceRange> <observationRange> <text /> </observationRange> </referenceRange> </ observation> </component> <component> <observation moodCode= "EVN" classCode="OBS"> <templateId root="840.1.561516.02.09.224.2 " /> <id nullFlavor="NA" /> <code codeSystem="local" code= "UEPI" displayName="Epithelial Cells" /> <statusCode code="completed" / > <effectiveTime value="979238669977" /> <value unit="/HPF" xsi:type="PQ" value="10" /> <referenceRange> < observationRange> <text /> </observationRange> </referenceRange> </observation> </component> <component> <observation moodCode="EVN" classCode="OBS"> <templateId root= "840.1.140977.02.09.224.2" /> <id nullFlavor="NA" /> < code codeSystem="local" code="URBC" displayName="RBC, Urine" /> < statusCode code="completed" /> <effectiveTime value="799428137694" /> <value unit="/HPF" xsi:type="PQ" value="0" /> <referenceRange > <observationRange> <text>0-2</text> </ observationRange> </referenceRange> </observation> </ component> <component> <observation moodCode="EVN" classCode="OBS"> <templateId root="216.840.1.419258.10...4.2" /> <id nullFlavor="NA" /> <code codeSystem="local" code="UMUC" displayName= "Urine Mucus" /> <statusCode code="completed" /> < effectiveTime value="736201816605" /> <value unit="NA" xsi:type="PQ" value="Present" /> <referenceRange> <observationRange> <text /> </observationRange> </referenceRange> </observation> </component> <component> <observation moodCode="EVN" classCode="OBS"> <templateId root= "216.840.1.094785.10..4.2" /> <id nullFlavor="NA" /> < code codeSystem="local" code="UWBC" displayName="WBC, Urine" /> < statusCode code="completed" /> <effectiveTime value="882109043706" /> <value unit="/HPF" xsi:type="PQ" value="0" /> <referenceRange > <observationRange> <text>0-4</text> </ observationRange> </referenceRange> </observation> </ component> </organizer> </entry> <entry> <organizer moodCode="EVN" classCode="BATTERY"> <templateId root="216.840.1.529618.10..22.4.1" /> <id nullFlavor="NA" /> <code codeSystem="local" code="PREGU" displayName="UR TEST" /> <statusCode code="completed" /> < component> <observation moodCode="EVN" classCode="OBS"> < templateId root="216.840.1.946336.10..22.4.2" /> <id nullFlavor="NA " /> <code codeSystem="local" code="PREGU" displayName="UR TEST" /> <statusCode code="completed" /> <effectiveTime value= "766758038154" /> <value unit="" xsi:type="PQ" value="NEGATIVE" /> <referenceRange> <observationRange> <text>NEGATIVE </text> </observationRange> </referenceRange> </ observation> </component> </organizer> </entry> <entry> <organizer moodCode="EVN" classCode="BATTERY"> <templateId root= "216.840.1.124232.10..22.4.1" /> <id nullFlavor="NA" /> <code codeSystem="local" code="UA" displayName="URINALYSIS, ROUTINE" /> < statusCode code="completed" /> <component> <observation moodCode= "EVN" classCode="OBS"> <templateId root="2.16.840.1.952816.10..22.4.2 " /> <id nullFlavor="NA" /> <code codeSystem="local" code= "LEUESU" displayName="UA LEUKOCYTE ESTERASE DIPSTICK" /> <statusCode code="completed" /> <effectiveTime value="052168520673" /> < value unit="" xsi:type="PQ" value="TRACE" /> <referenceRange> <observationRange> <text>NEGATIVE</text> </ observationRange> </referenceRange> </observation> </ component> <component> <observation moodCode="EVN" classCode="OBS"> <templateId root="16.840.1.269055.10..22.4.2" /> <id nullFlavor="NA" /> <code codeSystem="local" code="NITRIU" displayName= "UA NITRITE DIPSTICK" /> <statusCode code="completed" /> < effectiveTime value="" /> <value unit="" xsi:type="PQ" value="NEGATIVE" /> <referenceRange> <observationRange> <text>NEGATIVE</text> </observationRange> </ referenceRange> </observation> </component> <component> <observation moodCode="EVN" classCode="OBS"> <templateId root= "16.840.1.966596.10...4.2" /> <id nullFlavor="NA" /> < code codeSystem="local" code="PROTEIU" displayName="UA PROTEIN DIPSTICK" /> <statusCode code="completed" /> <effectiveTime value= "" /> <value unit="" xsi:type="PQ" value="1+" /> < interpretationCode codeSystem="local" code="*" /> <referenceRange> <observationRange> <text>NEGATIVE</text> </ observationRange> </referenceRange> </observation> </ component> <component> <observation moodCode="EVN" classCode="OBS"> <templateId root="16.840.1.662663.10..22.4.2" /> <id nullFlavor="NA" /> <code codeSystem="local" code="DGLUU" displayName= "UA GLUCOSE DIPSTICK" /> <statusCode code="completed" /> < effectiveTime value="" /> <value unit="" xsi:type="PQ" value="NEGATIVE" /> <referenceRange> <observationRange> <text>NEGATIVE</text> </observationRange> </ referenceRange> </observation> </component> <component> <observation moodCode="EVN" classCode="OBS"> <templateId root= "216.840.1.156691.10.4.2" /> <id nullFlavor="NA" /> < code codeSystem="local" code="KETONU" displayName="UA KETONE DIPSTICK" /> <statusCode code="completed" /> <effectiveTime value=" " /> <value unit="" xsi:type="PQ" value="NEGATIVE" /> < referenceRange> <observationRange> <text>NEGATIVE</text > </observationRange> </referenceRange> </observation > </component> <component> <observation moodCode="EVN" classCode="OBS"> <templateId root="06.08.840.1.495195.02.09.22.4.2" /> <id nullFlavor="NA" /> <code codeSystem="local" code="UROBILU " displayName="UA UROBILINOGEN DIPSTICK" /> <statusCode code="completed " /> <effectiveTime value="" /> <value unit="" xsi :type="PQ" value="NORMAL" /> <referenceRange> < observationRange> <text>NORMAL</text> </observationRange > </referenceRange> </observation> </component> < component> <observation moodCode="EVN" classCode="OBS"> < templateId root="216.840.1.277117.02.09.22.4.2" /> <id nullFlavor="NA " /> <code codeSystem="local" code="BILU" displayName="UA BILIRUBIN DIPSTICK" /> <statusCode code="completed" /> <effectiveTime value="" /> <value unit="" xsi:type="PQ" value="3+" /> <interpretationCode codeSystem="local" code="*" /> < referenceRange> <observationRange> <text>NEGATIVE</text > </observationRange> </referenceRange> </observation > </component> <component> <observation moodCode="EVN" classCode="OBS"> <templateId root="216.840.1.743439.10.4.2" /> <id nullFlavor="NA" /> <code codeSystem="local" code="SPENCER" displayName="UA BLOOD DIPSTICK" /> <statusCode code="completed" /> <effectiveTime value="473748919885" /> <value unit="" xsi:type= "PQ" value="4+" /> <interpretationCode codeSystem="local" code="*" /> <referenceRange> <observationRange> <text> NEGATIVE</text> </observationRange> </referenceRange> </observation> </component> <component> <observation moodCode ="EVN" classCode="OBS"> <templateId root= "06.08.840.1.496484.02.09.22.4.2" /> <id nullFlavor="NA" /> < code codeSystem="local" code="SPGRU" displayName="UA SPECIFIC GRAVITY" /> <statusCode code="completed" /> <effectiveTime value="602303694587 " /> <value unit="" xsi:type="PQ" value="1.020" /> < referenceRange> <observationRange> <text>1.015-1.025</ text> </observationRange> </referenceRange> </ observation> </component> <component> <observation moodCode= "EVN" classCode="OBS"> <templateId root="216.840.1.998956.22.4.2 " /> <id nullFlavor="NA" /> <code codeSystem="local" code="FEROZ " displayName="UR PH" /> <statusCode code="completed" /> < effectiveTime value="" /> <value unit="" xsi:type="PQ" value="5.0" /> <referenceRange> <observationRange> <text>5.0-7.0</text> </observationRange> </ referenceRange> </observation> </component> </organizer> </entry > <entry> <organizer moodCode="EVN" classCode="BATTERY"> <templateId root="06.08.840.1.299909.10...4.1" /> <id nullFlavor="NA" /> <code codeSystem="local" code="UAMICRO" displayName="UA MICROSCOPIC" /> < statusCode code="completed" /> <component> <observation moodCode= "EVN" classCode="OBS"> <templateId root="06.08.840.1.060098.10..22.4.2 " /> <id nullFlavor="NA" /> <code codeSystem="local" code= "BACU" displayName="UA BACTERIA" /> <statusCode code="completed" /> <effectiveTime value="" /> <value unit="" xsi:type= "PQ" value="3+" /> <interpretationCode codeSystem="local" code="*" /> <referenceRange> <observationRange> <text> NEGATIVE</text> </observationRange> </referenceRange> </observation> </component> <component> <observation moodCode ="EVN" classCode="OBS"> <templateId root= "06.08.840.1.453675.10..22.4.2" /> <id nullFlavor="NA" /> < code codeSystem="local" code="EPIU" displayName="UA EPITHELIAL CELLS" /> <statusCode code="completed" /> <effectiveTime value="338243134485" /> <value unit="epi/hpf" xsi:type="PQ" value="2+" /> < interpretationCode codeSystem="local" code="*" /> <referenceRange> <observationRange> <text>0 - 1+</text> </ observationRange> </referenceRange> </observation> </ component> <component> <observation moodCode="EVN" classCode="OBS"> <templateId root="216.840.1.223788.10.20.22.4.2" /> <id nullFlavor="NA" /> <code codeSystem="local" code="MUCUSU" displayName= "UA MUCUS" /> <statusCode code="completed" /> <effectiveTime value="189040747731" /> <value unit="" xsi:type="PQ" value="3+" /> <interpretationCode codeSystem="local" code="*" /> < referenceRange> <observationRange> <text>NEG TO 1+</text > </observationRange> </referenceRange> </observation > </component> <component> <observation moodCode="EVN" classCode="OBS"> <templateId root="16.840.1.610994.10.20.22.4.2" /> <id nullFlavor="NA" /> <code codeSystem="local" code="RBCU" displayName="UA RBC" /> <statusCode code="completed" /> < effectiveTime value="" /> <value unit="rbc/hpf" xsi:type= "PQ" value="0-3" /> <referenceRange> <observationRange> <text>0 - 3</text> </observationRange> </ referenceRange> </observation> </component> <component> <observation moodCode="EVN" classCode="OBS"> <templateId root= "06.08.840.1.739540.10.22.4.2" /> <id nullFlavor="NA" /> < code codeSystem="local" code="UAVOL" displayName="UA VOLUME FOR EXAM" /> <statusCode code="completed" /> <effectiveTime value="360627999929" /> <value unit="mL" xsi:type="PQ" value="12.0" /> < referenceRange> <observationRange> <text>(12mL STD)</ text> </observationRange> </referenceRange> </ observation> </component> <component> <observation moodCode= "EVN" classCode="OBS"> <templateId root="840.1.086452.02.09.22.4.2 " /> <id nullFlavor="NA" /> <code codeSystem="local" code= "WBCU" displayName="UA WBC" /> <statusCode code="completed" /> <effectiveTime value="385613462198" /> <value unit="wbc/hpf" xsi:type ="PQ" value="2-5" /> <referenceRange> <observationRange> <text>0 - 5</text> </observationRange> </ referenceRange> </observation> </component> </organizer> </entry > <entry> <organizer moodCode="EVN" classCode="BATTERY"> <templateId root="06.08.840.1.219826.22.4.1" /> <id nullFlavor="NA" /> <code codeSystem="local" code="CBCD" displayName="CBC W/DIFF" /> <statusCode code ="completed" /> <component> <observation moodCode="EVN" classCode= "OBS"> <templateId root="06.08.840.1.669756.10.22.4.2" /> < id nullFlavor="NA" /> <code codeSystem="local" code="GR#" displayName= "GRANULOCYTE #" /> <statusCode code="completed" /> < effectiveTime value="717260517590" /> <value unit="k/cumm" xsi:type="PQ " value="4.1" /> <referenceRange> <observationRange> <text>2.0-9.0</text> </observationRange> </ referenceRange> </observation> </component> <component> <observation moodCode="EVN" classCode="OBS"> <templateId root= "216.840.1.141506.02.09.22.4.2" /> <id nullFlavor="NA" /> < code codeSystem="local" code="GR%" displayName="GRANULOCYTE %" /> <statusCode code="completed" /> <effectiveTime value="769526526056 " /> <value unit="%" xsi:type="PQ" value="59" /> < referenceRange> <observationRange> <text>50-75</text> </observationRange> </referenceRange> </observation> </component> <component> <observation moodCode="EVN" classCode= "OBS"> <templateId root="216.840.1.912105.02.09.22.4.2" /> < id nullFlavor="NA" /> <code codeSystem="local" code="LY#" displayName= "LYMPHOCYTE #" /> <statusCode code="completed" /> < effectiveTime value="819864872755" /> <value unit="k/cumm" xsi:type="PQ " value="2.4" /> <referenceRange> <observationRange> <text>1.0-4.0</text> </observationRange> </ referenceRange> </observation> </component> <component> <observation moodCode="EVN" classCode="OBS"> <templateId root= "216.840.1.171863.10..4.2" /> <id nullFlavor="NA" /> < code codeSystem="local" code="LY%" displayName="LYMPHOCYTE %" /> <statusCode code="completed" /> <effectiveTime value="367601883748" /> <value unit="%" xsi:type="PQ" value="34" /> < interpretationCode codeSystem="local" code="*" /> <referenceRange> <observationRange> <text>20-30</text> </ observationRange> </referenceRange> </observation> </ component> <component> <observation moodCode="EVN" classCode="OBS"> <templateId root="06.08.840.1.035728.02.09.22.4.2" /> <id nullFlavor="NA" /> <code codeSystem="local" code="MCH" displayName= "MEAN CELL HGB" /> <statusCode code="completed" /> < effectiveTime value="811890990156" /> <value unit="pg" xsi:type="PQ" value="33.9" /> <interpretationCode codeSystem="local" code="*" /> <referenceRange> <observationRange> <text>27.0- 33.0</text> </observationRange> </referenceRange> </ observation> </component> <component> <observation moodCode= "EVN" classCode="OBS"> <templateId root="06.08.840.1.197445.10.22.4.2 " /> <id nullFlavor="NA" /> <code codeSystem="local" code= "MCHC" displayName="MEAN CELL HGB CONCENTRATION" /> <statusCode code= "completed" /> <effectiveTime value="936835632354" /> <value unit="g/dL" xsi:type="PQ" value="33.0" /> <referenceRange> < observationRange> <text>32.0-37.0</text> </ observationRange> </referenceRange> </observation> </ component> <component> <observation moodCode="EVN" classCode="OBS"> <templateId root="06.08.840.1.700158.22.4.2" /> <id nullFlavor="NA" /> <code codeSystem="local" code="MCV" displayName= "MEAN CELL VOLUME" /> <statusCode code="completed" /> < effectiveTime value="682318781056" /> <value unit="fl" xsi:type="PQ" value="102.9" /> <interpretationCode codeSystem="local" code="*" /> <referenceRange> <observationRange> <text>80.0- 100.0</text> </observationRange> </referenceRange> </ observation> </component> <component> <observation moodCode= "EVN" classCode="OBS"> <templateId root="06.08.840.1.694512.22.4.2 " /> <id nullFlavor="NA" /> <code codeSystem="local" code="MO# " displayName="MONOCYTE #" /> <statusCode code="completed" /> <effectiveTime value="701167347020" /> <value unit="k/cumm" xsi:type= "PQ" value="0.4" /> <referenceRange> <observationRange> <text>0.1-1.0</text> </observationRange> </ referenceRange> </observation> </component> <component> <observation moodCode="EVN" classCode="OBS"> <templateId root= "216.840.1.048554.22.4.2" /> <id nullFlavor="NA" /> < code codeSystem="local" code="MO%" displayName="MONOCYTE %" /> <statusCode code="completed" /> <effectiveTime value="703727274350" /> <value unit="%" xsi:type="PQ" value="6" /> < referenceRange> <observationRange> <text>4-6</text> </observationRange> </referenceRange> </observation> </component> <component> <observation moodCode="EVN" classCode= "OBS"> <templateId root="2.16.840.1.973941...4.2" /> < id nullFlavor="NA" /> <code codeSystem="local" code="RBC" displayName= "RED BLOOD CELL" /> <statusCode code="completed" /> < effectiveTime value="616493054089" /> <value unit="m/cumm" xsi:type="PQ " value="3.45" /> <interpretationCode codeSystem="local" code="*" /> <referenceRange> <observationRange> <text>4.00- 6.00</text> </observationRange> </referenceRange> </ observation> </component> <component> <observation moodCode= "EVN" classCode="OBS"> <templateId root="216.840.1.658241.10..4.2 " /> <id nullFlavor="NA" /> <code codeSystem="local" code="RDW " displayName="RED CELL DISTRIBUTION WIDTH" /> <statusCode code= "completed" /> <effectiveTime value="110065115476" /> <value unit="%" xsi:type="PQ" value="13.7" /> <referenceRange> <observationRange> <text>11.0-15.6</text> </ observationRange> </referenceRange> </observation> </ component> <component> <observation moodCode="EVN" classCode="OBS"> <templateId root="16.840.1.490957.10.22.4.2" /> <id nullFlavor="NA" /> <code codeSystem="local" code="WBC" displayName= "WHITE BLOOD CELL" /> <statusCode code="completed" /> < effectiveTime value="584527637707" /> <value unit="k/cumm" xsi:type="PQ " value="6.9" /> <referenceRange> <observationRange> <text>5.0-10.0</text> </observationRange> </ referenceRange> </observation> </component> <component> <observation moodCode="EVN" classCode="OBS"> <templateId root= "06.08.840.1.619305.02.09.22.4.2" /> <id nullFlavor="NA" /> < code codeSystem="local" code="HGBT" displayName="HEMOGLOBIN" /> < statusCode code="completed" /> <effectiveTime value="151256170631" /> <value unit="gm/dL" xsi:type="PQ" value="11.7" /> < interpretationCode codeSystem="local" code="*" /> <referenceRange> <observationRange> <text>12.0-16.0</text> </ observationRange> </referenceRange> </observation> </ component> <component> <observation moodCode="EVN" classCode="OBS"> <templateId root="06.08.840.1.333399.02.09.22.4.2" /> <id nullFlavor="NA" /> <code codeSystem="local" code="HCTT" displayName= "HEMATOCRIT" /> <statusCode code="completed" /> < effectiveTime value="569274976340" /> <value unit="%" xsi:type="PQ " value="35.5" /> <interpretationCode codeSystem="local" code="*" /> <referenceRange> <observationRange> <text>37.0- 47.0</text> </observationRange> </referenceRange> </ observation> </component> <component> <observation moodCode= "EVN" classCode="OBS"> <templateId root="840.1.640767.10.22.4.2 " /> <id nullFlavor="NA" /> <code codeSystem="local" code= "PLTT" displayName="PLATELET COUNT" /> <statusCode code="completed" /> <effectiveTime value="889158288981" /> <value unit="k/cumm" xsi:type="PQ" value="321" /> <referenceRange> < observationRange> <text>150-450</text> </ observationRange> </referenceRange> </observation> </ component> </organizer> </entry> <entry> <organizer moodCode="EVN" classCode="BATTERY"> <templateId root="840.1.501435.22.4.1" /> <id nullFlavor="NA" /> <code codeSystem="local" code="METAB" displayName="METABOLIC PANEL, BASIC" /> <statusCode code="completed" /> <component> <observation moodCode="EVN" classCode="OBS"> < templateId root="840.1.894939.1022.4.2" /> <id nullFlavor="NA " /> <code codeSystem="local" code="K" displayName="POTASSIUM" /> <statusCode code="completed" /> <effectiveTime value="708104871143 " /> <value unit="mmol/L" xsi:type="PQ" value="3.7" /> < referenceRange> <observationRange> <text>3.5-5.3</text> </observationRange> </referenceRange> </observation > </component> <component> <observation moodCode="EVN" classCode="OBS"> <templateId root="216.840.1.045362.10...4.2" /> <id nullFlavor="NA" /> <code codeSystem="local" code="eGFR" displayName="EST GFR (MDRD)" /> <statusCode code="completed" /> <effectiveTime value="" /> <value unit="mL/min" xsi:type ="PQ" value="> 60" /> <referenceRange> <observationRange > <text>> 59</text> </observationRange> </ referenceRange> </observation> </component> <component> <observation moodCode="EVN" classCode="OBS"> <templateId root= "16.840.1.625788.02.09.22.4.2" /> <id nullFlavor="NA" /> < code codeSystem="local" code="GAP" displayName="ANION GAP" /> < statusCode code="completed" /> <effectiveTime value="" /> <value unit="mmol/L" xsi:type="PQ" value="11" /> < referenceRange> <observationRange> <text>5-15</text> </observationRange> </referenceRange> </observation> </component> <component> <observation moodCode="EVN" classCode= "OBS"> <templateId root="216.840.1.435124.10..22.4.2" /> < id nullFlavor="NA" /> <code codeSystem="local" code="eCrCl" displayName ="EST CrCl (CG)" /> <statusCode code="completed" /> < effectiveTime value="" /> <value unit="mL/min" xsi:type="PQ " value="> 60" /> <referenceRange> <observationRange> <text>> 59</text> </observationRange> </ referenceRange> </observation> </component> <component> <observation moodCode="EVN" classCode="OBS"> <templateId root= "16.840.1.410395.10.20.22.4.2" /> <id nullFlavor="NA" /> < code codeSystem="local" code="GLU" displayName="GLUCOSE" /> < statusCode code="completed" /> <effectiveTime value="" /> <value unit="mg/dL" xsi:type="PQ" value="80" /> < referenceRange> <observationRange> <text>70-99</text> </observationRange> </referenceRange> </observation> </component> <component> <observation moodCode="EVN" classCode= "OBS"> <templateId root="16.840.1.982610.10.20.22.4.2" /> < id nullFlavor="NA" /> <code codeSystem="local" code="CA" displayName= "CALCIUM" /> <statusCode code="completed" /> <effectiveTime value="" /> <value unit="mg/dL" xsi:type="PQ" value="9.1" / > <referenceRange> <observationRange> <text>8.5 -10.1</text> </observationRange> </referenceRange> </ observation> </component> <component> <observation moodCode= "EVN" classCode="OBS"> <templateId root="06.08.840.1.981785.02.09.22.4.2 " /> <id nullFlavor="NA" /> <code codeSystem="local" code="BUN " displayName="BLOOD UREA NITROGEN" /> <statusCode code="completed" /> <effectiveTime value="" /> <value unit="mg/dL" xsi:type="PQ" value="19" /> <referenceRange> < observationRange> <text>7-20</text> </observationRange> </referenceRange> </observation> </component> < component> <observation moodCode="EVN" classCode="OBS"> < templateId root="2.16.840.1.457085.02.09.22.4.2" /> <id nullFlavor="NA " /> <code codeSystem="local" code="CREAT" displayName="CREATININE" /> <statusCode code="completed" /> <effectiveTime value= "" /> <value unit="mg/dL" xsi:type="PQ" value="0.9" /> <referenceRange> <observationRange> <text>0.6-1.0< /text> </observationRange> </referenceRange> </ observation> </component> <component> <observation moodCode= "EVN" classCode="OBS"> <templateId root="2.16.840.1.374426...22.4.2 " /> <id nullFlavor="NA" /> <code codeSystem="local" code="NA " displayName="SODIUM" /> <statusCode code="completed" /> < effectiveTime value="" /> <value unit="mmol/L" xsi:type="PQ " value="134" /> <interpretationCode codeSystem="local" code="*" /> <referenceRange> <observationRange> <text>135-148 </text> </observationRange> </referenceRange> </ observation> </component> <component> <observation moodCode= "EVN" classCode="OBS"> <templateId root="06.08.840.1.634659.02.09.22.4.2 " /> <id nullFlavor="NA" /> <code codeSystem="local" code="CL " displayName="CHLORIDE" /> <statusCode code="completed" /> < effectiveTime value="" /> <value unit="mmol/L" xsi:type="PQ " value="100" /> <referenceRange> <observationRange> <text>98-110</text> </observationRange> </ referenceRange> </observation> </component> <component> <observation moodCode="EVN" classCode="OBS"> <templateId root= "840.1.844364.02.09.22.4.2" /> <id nullFlavor="NA" /> < code codeSystem="local" code="CO2" displayName="CARBON DIOXIDE" /> < statusCode code="completed" /> <effectiveTime value="" /> <value unit="mmol/L" xsi:type="PQ" value="23" /> < referenceRange> <observationRange> <text>21-32</text> </observationRange> </referenceRange> </observation> </component> </organizer> </entry> <entry> <organizer moodCode="EVN " classCode="BATTERY"> <templateId root="06.08.840.1.391908.02.09.22.4.1" / > <id nullFlavor="NA" /> <code codeSystem="local" code="UA" displayName="URINALYSIS, ROUTINE" /> <statusCode code="completed" /> < component> <observation moodCode="EVN" classCode="OBS"> < templateId root="06.08.840.1.651446.02.09.22.4.2" /> <id nullFlavor="NA " /> <code codeSystem="local" code="LEUESU" displayName="UA LEUKOCYTE ESTERASE DIPSTICK" /> <statusCode code="completed" /> < effectiveTime value="362987561381" /> <value unit="" xsi:type="PQ" value="TRACE" /> <referenceRange> <observationRange> <text>NEGATIVE</text> </observationRange> </ referenceRange> </observation> </component> <component> <observation moodCode="EVN" classCode="OBS"> <templateId root= "216.840.1.063251.02.09.22.4.2" /> <id nullFlavor="NA" /> < code codeSystem="local" code="NITRIU" displayName="UA NITRITE DIPSTICK" /> <statusCode code="completed" /> <effectiveTime value="050974429647 " /> <value unit="" xsi:type="PQ" value="NEGATIVE" /> < referenceRange> <observationRange> <text>NEGATIVE</text > </observationRange> </referenceRange> </observation > </component> <component> <observation moodCode="EVN" classCode="OBS"> <templateId root="16.840.1.064565.02.09.22.4.2" /> <id nullFlavor="NA" /> <code codeSystem="local" code="PROTEIU " displayName="UA PROTEIN DIPSTICK" /> <statusCode code="completed" /> <effectiveTime value="607858850889" /> <value unit="" xsi: type="PQ" value="1+" /> <interpretationCode codeSystem="local" code="* " /> <referenceRange> <observationRange> <text> NEGATIVE</text> </observationRange> </referenceRange> </observation> </component> <component> <observation moodCode ="EVN" classCode="OBS"> <templateId root= "216.840.1.738355.10...4.2" /> <id nullFlavor="NA" /> < code codeSystem="local" code="DGLUU" displayName="UA GLUCOSE DIPSTICK" /> <statusCode code="completed" /> <effectiveTime value="825945320064 " /> <value unit="" xsi:type="PQ" value="NEGATIVE" /> < referenceRange> <observationRange> <text>NEGATIVE</text > </observationRange> </referenceRange> </observation > </component> <component> <observation moodCode="EVN" classCode="OBS"> <templateId root="216.840.1.463056.10..4.2" /> <id nullFlavor="NA" /> <code codeSystem="local" code="KETONU" displayName="UA KETONE DIPSTICK" /> <statusCode code="completed" /> <effectiveTime value="103786396096" /> <value unit="" xsi:type= "PQ" value="NEGATIVE" /> <referenceRange> <observationRange > <text>NEGATIVE</text> </observationRange> </ referenceRange> </observation> </component> <component> <observation moodCode="EVN" classCode="OBS"> <templateId root= "16.840.1.458936.10.22.4.2" /> <id nullFlavor="NA" /> < code codeSystem="local" code="UROBILU" displayName="UA UROBILINOGEN DIPSTICK" / > <statusCode code="completed" /> <effectiveTime value= "698859079983" /> <value unit="" xsi:type="PQ" value="NORMAL" /> <referenceRange> <observationRange> <text>NORMAL</ text> </observationRange> </referenceRange> </ observation> </component> <component> <observation moodCode= "EVN" classCode="OBS"> <templateId root="06.08.840.1.200616.10.20.22.4.2 " /> <id nullFlavor="NA" /> <code codeSystem="local" code= "BILU" displayName="UA BILIRUBIN DIPSTICK" /> <statusCode code= "completed" /> <effectiveTime value="118327470416" /> <value unit="" xsi:type="PQ" value="1+" /> <interpretationCode codeSystem= "local" code="*" /> <referenceRange> <observationRange> <text>NEGATIVE</text> </observationRange> </ referenceRange> </observation> </component> <component> <observation moodCode="EVN" classCode="OBS"> <templateId root= "06.08.840.1.298243.10..4.2" /> <id nullFlavor="NA" /> < code codeSystem="local" code="SPENCER" displayName="UA BLOOD DIPSTICK" /> < statusCode code="completed" /> <effectiveTime value="618815252316" /> <value unit="" xsi:type="PQ" value="1+" /> < interpretationCode codeSystem="local" code="*" /> <referenceRange> <observationRange> <text>NEGATIVE</text> </ observationRange> </referenceRange> </observation> </ component> <component> <observation moodCode="EVN" classCode="OBS"> <templateId root="06.08.840.1.636824.10.2022.4.2" /> <id nullFlavor="NA" /> <code codeSystem="local" code="SPGRU" displayName= "UA SPECIFIC GRAVITY" /> <statusCode code="completed" /> < effectiveTime value="476907820681" /> <value unit="" xsi:type="PQ" value="1.020" /> <referenceRange> <observationRange> <text>1.015-1.025</text> </observationRange> </ referenceRange> </observation> </component> <component> <observation moodCode="EVN" classCode="OBS"> <templateId root= "16.840.1.502505.10.22.4.2" /> <id nullFlavor="NA" /> < code codeSystem="local" code="FEROZ" displayName="UR PH" /> <statusCode code="completed" /> <effectiveTime value="237030810237" /> < value unit="" xsi:type="PQ" value="5.0" /> <referenceRange> <observationRange> <text>5.0-7.0</text> </ observationRange> </referenceRange> </observation> </ component> </organizer> </entry> <entry> <organizer moodCode="EVN" classCode="BATTERY"> <templateId root="06.08.840.1.466710.02.09.22.4.1" /> <id nullFlavor="NA" /> <code codeSystem="local" code="UAMICRO" displayName="UA MICROSCOPIC" /> <statusCode code="completed" /> < component> <observation moodCode="EVN" classCode="OBS"> < templateId root="06.08.840.1.139421..22.4.2" /> <id nullFlavor="NA " /> <code codeSystem="local" code="BACU" displayName="UA BACTERIA" /> <statusCode code="completed" /> <effectiveTime value= "057693880025" /> <value unit="" xsi:type="PQ" value="2+" /> < interpretationCode codeSystem="local" code="*" /> <referenceRange> <observationRange> <text>NEGATIVE</text> </ observationRange> </referenceRange> </observation> </ component> <component> <observation moodCode="EVN" classCode="OBS"> <templateId root="16.840.1.459655.22.4.2" /> <id nullFlavor="NA" /> <code codeSystem="local" code="EPIU" displayName=" UA EPITHELIAL CELLS" /> <statusCode code="completed" /> < effectiveTime value="805699990067" /> <value unit="epi/hpf" xsi:type= "PQ" value="3+" /> <interpretationCode codeSystem="local" code="*" /> <referenceRange> <observationRange> <text>0 - 1 +</text> </observationRange> </referenceRange> </ observation> </component> <component> <observation moodCode= "EVN" classCode="OBS"> <templateId root="16.840.1.384340.02.09.22.4.2 " /> <id nullFlavor="NA" /> <code codeSystem="local" code= "MUCUSU" displayName="UA MUCUS" /> <statusCode code="completed" /> <effectiveTime value="203754815148" /> <value unit="" xsi:type= "PQ" value="4+" /> <interpretationCode codeSystem="local" code="*" /> <referenceRange> <observationRange> <text>NEG TO 1+</text> </observationRange> </referenceRange> </ observation> </component> <component> <observation moodCode= "EVN" classCode="OBS"> <templateId root="16.840.1.555320.22.4.2 " /> <id nullFlavor="NA" /> <code codeSystem="local" code= "RBCU" displayName="UA RBC" /> <statusCode code="completed" /> <effectiveTime value="397233276286" /> <value unit="rbc/hpf" xsi:type ="PQ" value="0-3" /> <referenceRange> <observationRange> <text>0 - 3</text> </observationRange> </ referenceRange> </observation> </component> <component> <observation moodCode="EVN" classCode="OBS"> <templateId root= "2.16.840.1.724875.02.09.22.4.2" /> <id nullFlavor="NA" /> < code codeSystem="local" code="UAVOL" displayName="UA VOLUME FOR EXAM" /> <statusCode code="completed" /> <effectiveTime value="046228201909" /> <value unit="mL" xsi:type="PQ" value="12.0" /> < referenceRange> <observationRange> <text>(12mL STD)</ text> </observationRange> </referenceRange> </ observation> </component> <component> <observation moodCode= "EVN" classCode="OBS"> <templateId root="216.840.1.127396.02.09.22.4.2 " /> <id nullFlavor="NA" /> <code codeSystem="local" code= "WBCU" displayName="UA WBC" /> <statusCode code="completed" /> <effectiveTime value="643593981390" /> <value unit="wbc/hpf" xsi:type ="PQ" value="2-5" /> <referenceRange> <observationRange> <text>0 - 5</text> </observationRange> </ referenceRange> </observation> </component> </organizer> </entry > <entry> <organizer moodCode="EVN" classCode="BATTERY"> <templateId root="06.08.840.1.018532.10.4.1" /> <id nullFlavor="NA" /> <code codeSystem="local" code="PREGU" displayName="UR TEST" /> < statusCode code="completed" /> <component> <observation moodCode= "EVN" classCode="OBS"> <templateId root="06.08.840.1.303498.02.09.22.4.2 " /> <id nullFlavor="NA" /> <code codeSystem="local" code= "PREGU" displayName="UR TEST" /> <statusCode code="completed " /> <effectiveTime value="665231690733" /> <value unit="" xsi :type="PQ" value="NEGATIVE" /> <referenceRange> < observationRange> <text>NEGATIVE</text> </ observationRange> </referenceRange> </observation> </ component> </organizer> </entry> <entry> <organizer moodCode="EVN" classCode="BATTERY"> <templateId root="06.08.840.1.340964.02.09.22.4.1" /> <id nullFlavor="NA" /> <code codeSystem="local" code="CBCD" displayName="CBC W/DIFF" /> <statusCode code="completed" /> <component > <observation moodCode="EVN" classCode="OBS"> <templateId root= "06.08.840.1.372829.02.09.22.4.2" /> <id nullFlavor="NA" /> < code codeSystem="local" code="GR#" displayName="GRANULOCYTE #" /> < statusCode code="completed" /> <effectiveTime value="582803599652" /> <value unit="k/cumm" xsi:type="PQ" value="2.9" /> < referenceRange> <observationRange> <text>2.0-9.0</text> </observationRange> </referenceRange> </observation > </component> <component> <observation moodCode="EVN" classCode="OBS"> <templateId root="06.08.840.1.557099.10.22.4.2" /> <id nullFlavor="NA" /> <code codeSystem="local" code="GR% " displayName="GRANULOCYTE %" /> <statusCode code="completed" /> <effectiveTime value="857869124928" /> <value unit="%" xsi: type="PQ" value="63" /> <referenceRange> <observationRange> <text>50-75</text> </observationRange> </ referenceRange> </observation> </component> <component> <observation moodCode="EVN" classCode="OBS"> <templateId root= "06.08.840.1.548108.1022.4.2" /> <id nullFlavor="NA" /> < code codeSystem="local" code="LY#" displayName="LYMPHOCYTE #" /> < statusCode code="completed" /> <effectiveTime value="017327182101" /> <value unit="k/cumm" xsi:type="PQ" value="1.4" /> < referenceRange> <observationRange> <text>1.0-4.0</text> </observationRange> </referenceRange> </observation > </component> <component> <observation moodCode="EVN" classCode="OBS"> <templateId root="216.840.1.749366.10.2022.4.2" /> <id nullFlavor="NA" /> <code codeSystem="local" code="LY% " displayName="LYMPHOCYTE %" /> <statusCode code="completed" /> <effectiveTime value="456711591877" /> <value unit="%" xsi: type="PQ" value="30" /> <referenceRange> <observationRange> <text>20-30</text> </observationRange> </ referenceRange> </observation> </component> <component> <observation moodCode="EVN" classCode="OBS"> <templateId root= "2.16.840.1.870948.10...4.2" /> <id nullFlavor="NA" /> < code codeSystem="local" code="MCH" displayName="MEAN CELL HGB" /> < statusCode code="completed" /> <effectiveTime value="647840980323" /> <value unit="pg" xsi:type="PQ" value="34.1" /> < interpretationCode codeSystem="local" code="*" /> <referenceRange> <observationRange> <text>27.0-33.0</text> </ observationRange> </referenceRange> </observation> </ component> <component> <observation moodCode="EVN" classCode="OBS"> <templateId root="216.840.1.136237.10.22.4.2" /> <id nullFlavor="NA" /> <code codeSystem="local" code="MCHC" displayName= "MEAN CELL HGB CONCENTRATION" /> <statusCode code="completed" /> <effectiveTime value="075304876538" /> <value unit="g/dL" xsi:type= "PQ" value="33.0" /> <referenceRange> <observationRange> <text>32.0-37.0</text> </observationRange> </ referenceRange> </observation> </component> <component> <observation moodCode="EVN" classCode="OBS"> <templateId root= "216.840.1.783007.10..4.2" /> <id nullFlavor="NA" /> < code codeSystem="local" code="MCV" displayName="MEAN CELL VOLUME" /> < statusCode code="completed" /> <effectiveTime value="517378308826" /> <value unit="fl" xsi:type="PQ" value="103.4" /> < interpretationCode codeSystem="local" code="*" /> <referenceRange> <observationRange> <text>80.0-100.0</text> </ observationRange> </referenceRange> </observation> </ component> <component> <observation moodCode="EVN" classCode="OBS"> <templateId root="16.840.1.128911.02.09.224.2" /> <id nullFlavor="NA" /> <code codeSystem="local" code="MO#" displayName= "MONOCYTE #" /> <statusCode code="completed" /> < effectiveTime value="151116055724" /> <value unit="k/cumm" xsi:type="PQ " value="0.3" /> <referenceRange> <observationRange> <text>0.1-1.0</text> </observationRange> </ referenceRange> </observation> </component> <component> <observation moodCode="EVN" classCode="OBS"> <templateId root= "216.840.1.105751.22.4.2" /> <id nullFlavor="NA" /> < code codeSystem="local" code="MO%" displayName="MONOCYTE %" /> <statusCode code="completed" /> <effectiveTime value="857266655271" /> <value unit="%" xsi:type="PQ" value="6" /> < referenceRange> <observationRange> <text>4-6</text> </observationRange> </referenceRange> </observation> </component> <component> <observation moodCode="EVN" classCode= "OBS"> <templateId root="216.840.1.188392.10..4.2" /> < id nullFlavor="NA" /> <code codeSystem="local" code="RBC" displayName= "RED BLOOD CELL" /> <statusCode code="completed" /> < effectiveTime value="067165331322" /> <value unit="m/cumm" xsi:type="PQ " value="3.52" /> <interpretationCode codeSystem="local" code="*" /> <referenceRange> <observationRange> <text>4.00- 6.00</text> </observationRange> </referenceRange> </ observation> </component> <component> <observation moodCode= "EVN" classCode="OBS"> <templateId root="216.840.1.735371.02.09.22.4.2 " /> <id nullFlavor="NA" /> <code codeSystem="local" code="RDW " displayName="RED CELL DISTRIBUTION WIDTH" /> <statusCode code= "completed" /> <effectiveTime value="718476517666" /> <value unit="%" xsi:type="PQ" value="14.2" /> <referenceRange> <observationRange> <text>11.0-15.6</text> </ observationRange> </referenceRange> </observation> </ component> <component> <observation moodCode="EVN" classCode="OBS"> <templateId root="216.840.1.711968.02.09.22.4.2" /> <id nullFlavor="NA" /> <code codeSystem="local" code="WBC" displayName= "WHITE BLOOD CELL" /> <statusCode code="completed" /> < effectiveTime value="464748550100" /> <value unit="k/cumm" xsi:type="PQ " value="4.6" /> <interpretationCode codeSystem="local" code="*" /> <referenceRange> <observationRange> <text>5.0- 10.0</text> </observationRange> </referenceRange> </ observation> </component> <component> <observation moodCode= "EVN" classCode="OBS"> <templateId root="216.840.1.202859.02.09.22.4.2 " /> <id nullFlavor="NA" /> <code codeSystem="local" code= "HGBT" displayName="HEMOGLOBIN" /> <statusCode code="completed" /> <effectiveTime value="986747220072" /> <value unit="gm/dL" xsi: type="PQ" value="12.0" /> <referenceRange> <observationRange > <text>12.0-16.0</text> </observationRange> </ referenceRange> </observation> </component> <component> <observation moodCode="EVN" classCode="OBS"> <templateId root= "216.840.1.118423.02.09.22.4.2" /> <id nullFlavor="NA" /> < code codeSystem="local" code="HCTT" displayName="HEMATOCRIT" /> < statusCode code="completed" /> <effectiveTime value="833182393942" /> <value unit="%" xsi:type="PQ" value="36.4" /> < interpretationCode codeSystem="local" code="*" /> <referenceRange> <observationRange> <text>37.0-47.0</text> </ observationRange> </referenceRange> </observation> </ component> <component> <observation moodCode="EVN" classCode="OBS"> <templateId root="16.840.1.743329.10.20.22.4.2" /> <id nullFlavor="NA" /> <code codeSystem="local" code="PLTT" displayName= "PLATELET COUNT" /> <statusCode code="completed" /> < effectiveTime value="677975731177" /> <value unit="k/cumm" xsi:type="PQ " value="338" /> <referenceRange> <observationRange> <text>150-450</text> </observationRange> </ referenceRange> </observation> </component> </organizer> </entry > <entry> <organizer moodCode="EVN" classCode="BATTERY"> <templateId root="16.840.1.843306.10..22.4.1" /> <id nullFlavor="NA" /> <code codeSystem="local" code="METABC" displayName="METABOLIC PANEL, COMPREHN" /> <statusCode code="completed" /> <component> <observation moodCode= "EVN" classCode="OBS"> <templateId root="16.840.1.260864.10..22.4.2 " /> <id nullFlavor="NA" /> <code codeSystem="local" code="K" displayName="POTASSIUM" /> <statusCode code="completed" /> < effectiveTime value="136550455319" /> <value unit="mmol/L" xsi:type="PQ " value="3.9" /> <referenceRange> <observationRange> <text>3.5-5.3</text> </observationRange> </ referenceRange> </observation> </component> <component> <observation moodCode="EVN" classCode="OBS"> <templateId root= "216.840.1.641454.10..22.4.2" /> <id nullFlavor="NA" /> < code codeSystem="local" code="eGFR" displayName="EST GFR (MDRD)" /> < statusCode code="completed" /> <effectiveTime value="306554521895" /> <value unit="mL/min" xsi:type="PQ" value="> 60" /> < referenceRange> <observationRange> <text>> 59</text> </observationRange> </referenceRange> </observation > </component> <component> <observation moodCode="EVN" classCode="OBS"> <templateId root="216.840.1.610252.02.09.22.4.2" /> <id nullFlavor="NA" /> <code codeSystem="local" code="GAP" displayName="ANION GAP" /> <statusCode code="completed" /> < effectiveTime value="004022856381" /> <value unit="mmol/L" xsi:type="PQ " value="13" /> <referenceRange> <observationRange> <text>5-15</text> </observationRange> </referenceRange > </observation> </component> <component> <observation moodCode="EVN" classCode="OBS"> <templateId root= "216.840.1.335365.10..22.4.2" /> <id nullFlavor="NA" /> < code codeSystem="local" code="eCrCl" displayName="EST CrCl (CG)" /> < statusCode code="completed" /> <effectiveTime value="091581964685" /> <value unit="mL/min" xsi:type="PQ" value="> 60" /> < referenceRange> <observationRange> <text>> 59</text> </observationRange> </referenceRange> </observation > </component> <component> <observation moodCode="EVN" classCode="OBS"> <templateId root="216.840.1.461454.10...4.2" /> <id nullFlavor="NA" /> <code codeSystem="local" code="GLU" displayName="GLUCOSE" /> <statusCode code="completed" /> < effectiveTime value="764329594719" /> <value unit="mg/dL" xsi:type="PQ " value="99" /> <referenceRange> <observationRange> <text>70-99</text> </observationRange> </ referenceRange> </observation> </component> <component> <observation moodCode="EVN" classCode="OBS"> <templateId root= "06.08.840.1.693933.10.4.2" /> <id nullFlavor="NA" /> < code codeSystem="local" code="CA" displayName="CALCIUM" /> <statusCode code="completed" /> <effectiveTime value="138896760639" /> < value unit="mg/dL" xsi:type="PQ" value="9.1" /> <referenceRange> <observationRange> <text>8.5-10.1</text> </ observationRange> </referenceRange> </observation> </ component> <component> <observation moodCode="EVN" classCode="OBS"> <templateId root="06.08.840.1.649047.10.2022.4.2" /> <id nullFlavor="NA" /> <code codeSystem="local" code="BUN" displayName= "BLOOD UREA NITROGEN" /> <statusCode code="completed" /> < effectiveTime value="900491241093" /> <value unit="mg/dL" xsi:type="PQ " value="15" /> <referenceRange> <observationRange> <text>7-20</text> </observationRange> </referenceRange > </observation> </component> <component> <observation moodCode="EVN" classCode="OBS"> <templateId root= "216.840.1.075070.10..22.4.2" /> <id nullFlavor="NA" /> < code codeSystem="local" code="CREAT" displayName="CREATININE" /> < statusCode code="completed" /> <effectiveTime value="957194452540" /> <value unit="mg/dL" xsi:type="PQ" value="0.7" /> < referenceRange> <observationRange> <text>0.6-1.0</text> </observationRange> </referenceRange> </observation > </component> <component> <observation moodCode="EVN" classCode="OBS"> <templateId root="216.840.1.344723.10..4.2" /> <id nullFlavor="NA" /> <code codeSystem="local" code="NA" displayName="SODIUM" /> <statusCode code="completed" /> < effectiveTime value="617462794573" /> <value unit="mmol/L" xsi:type="PQ " value="142" /> <referenceRange> <observationRange> <text>135-148</text> </observationRange> </ referenceRange> </observation> </component> <component> <observation moodCode="EVN" classCode="OBS"> <templateId root= "216.840.1.818312.10..22.4.2" /> <id nullFlavor="NA" /> < code codeSystem="local" code="CL" displayName="CHLORIDE" /> < statusCode code="completed" /> <effectiveTime value="140344726359" /> <value unit="mmol/L" xsi:type="PQ" value="104" /> < referenceRange> <observationRange> <text>98-110</text> </observationRange> </referenceRange> </observation> </component> <component> <observation moodCode="EVN" classCode ="OBS"> <templateId root="216.840.1.916166.10..22.4.2" /> < id nullFlavor="NA" /> <code codeSystem="local" code="AST" displayName= "AST/SGOT" /> <statusCode code="completed" /> <effectiveTime value="638930605522" /> <value unit="Units/L" xsi:type="PQ" value="19" /> <referenceRange> <observationRange> <text>10 -37</text> </observationRange> </referenceRange> </ observation> </component> <component> <observation moodCode= "EVN" classCode="OBS"> <templateId root="16.840.1.879476...22.4.2 " /> <id nullFlavor="NA" /> <code codeSystem="local" code="ALT " displayName="ALT/SGPT" /> <statusCode code="completed" /> < effectiveTime value="382377368020" /> <value unit="Units/L" xsi:type= "PQ" value="50" /> <referenceRange> <observationRange> <text>< 66</text> </observationRange> </ referenceRange> </observation> </component> <component> <observation moodCode="EVN" classCode="OBS"> <templateId root= "16.840.1.804294.20.22.4.2" /> <id nullFlavor="NA" /> < code codeSystem="local" code="CO2" displayName="CARBON DIOXIDE" /> < statusCode code="completed" /> <effectiveTime value="729403756147" /> <value unit="mmol/L" xsi:type="PQ" value="25" /> < referenceRange> <observationRange> <text>21-32</text> </observationRange> </referenceRange> </observation> </component> <component> <observation moodCode="EVN" classCode= "OBS"> <templateId root="2.16.840.1.079411.10...4.2" /> < id nullFlavor="NA" /> <code codeSystem="local" code="TP" displayName= "TOTAL PROTEIN" /> <statusCode code="completed" /> < effectiveTime value="838024253625" /> <value unit="gm/dL" xsi:type="PQ " value="7.9" /> <referenceRange> <observationRange> <text>6.4-8.2</text> </observationRange> </ referenceRange> </observation> </component> <component> <observation moodCode="EVN" classCode="OBS"> <templateId root= "2.16.840.1.657024.10...4.2" /> <id nullFlavor="NA" /> < code codeSystem="local" code="ALB" displayName="ALBUMIN" /> < statusCode code="completed" /> <effectiveTime value="003528621958" /> <value unit="gm/dL" xsi:type="PQ" value="4.4" /> < referenceRange> <observationRange> <text>3.4-5.0</text> </observationRange> </referenceRange> </observation > </component> <component> <observation moodCode="EVN" classCode="OBS"> <templateId root="16.840.1.803189.10..4.2" /> <id nullFlavor="NA" /> <code codeSystem="local" code="BILTOT" displayName="BILI TOTAL" /> <statusCode code="completed" /> < effectiveTime value="218266061033" /> <value unit="mg/dL" xsi:type="PQ " value="0.3" /> <referenceRange> <observationRange> <text>0.0-1.0</text> </observationRange> </ referenceRange> </observation> </component> <component> <observation moodCode="EVN" classCode="OBS"> <templateId root= "06.08.840.1.378921.02.09.22.4.2" /> <id nullFlavor="NA" /> < code codeSystem="local" code="ALKP" displayName="ALKALINE PHOSPHATASE TOTAL" /> <statusCode code="completed" /> <effectiveTime value= "430525639508" /> <value unit="IU/L" xsi:type="PQ" value="67" /> <referenceRange> <observationRange> <text>45-117</ text> </observationRange> </referenceRange> </ observation> </component> </organizer> </entry> <entry> <organizer moodCode="EVN" classCode="BATTERY"> <templateId root= "06.08.840.1.972609.10.22.4.1" /> <id nullFlavor="NA" /> <code codeSystem="local" code="LIP" displayName="LIPASE" /> <statusCode code= "completed" /> <component> <observation moodCode="EVN" classCode= "OBS"> <templateId root="06.08.840.1.665834.02.09.22.4.2" /> < id nullFlavor="NA" /> <code codeSystem="local" code="LIP" displayName= "LIPASE" /> <statusCode code="completed" /> <effectiveTime value="285024544211" /> <value unit="Units/L" xsi:type="PQ" value="103 " /> <referenceRange> <observationRange> <text> 73-393</text> </observationRange> </referenceRange> < /observation> </component> </organizer> </entry> <entry> < organizer moodCode="EVN" classCode="BATTERY"> <templateId root= "16.840.1.503834.02.09.22.4.1" /> <id nullFlavor="NA" /> <code codeSystem="local" code="CBCD" displayName="CBC W/DIFF" /> <statusCode code ="completed" /> <component> <observation moodCode="EVN" classCode= "OBS"> <templateId root="06.08.840.1.737317...4.2" /> < id nullFlavor="NA" /> <code codeSystem="local" code="EO#" displayName= "EOSINOPHIL #" /> <statusCode code="completed" /> < effectiveTime value="925545754565" /> <value unit="k/cumm" xsi:type="PQ " value="0.1" /> <referenceRange> <observationRange> <text>0.1-0.5</text> </observationRange> </ referenceRange> </observation> </component> <component> <observation moodCode="EVN" classCode="OBS"> <templateId root= "06.08.840.1.774724...4.2" /> <id nullFlavor="NA" /> < code codeSystem="local" code="EO%" displayName="EOSINOPHIL %" /> <statusCode code="completed" /> <effectiveTime value="479806841930" /> <value unit="%" xsi:type="PQ" value="1" /> < interpretationCode codeSystem="local" code="*" /> <referenceRange> <observationRange> <text>2-4</text> </ observationRange> </referenceRange> </observation> </ component> <component> <observation moodCode="EVN" classCode="OBS"> <templateId root="2.16.840.1.917081.10...4.2" /> <id nullFlavor="NA" /> <code codeSystem="local" code="GR#" displayName= "GRANULOCYTE #" /> <statusCode code="completed" /> < effectiveTime value="969779706623" /> <value unit="k/cumm" xsi:type="PQ " value="4.7" /> <referenceRange> <observationRange> <text>2.0-9.0</text> </observationRange> </ referenceRange> </observation> </component> <component> <observation moodCode="EVN" classCode="OBS"> <templateId root= "2.16.840.1.578757.10...4.2" /> <id nullFlavor="NA" /> < code codeSystem="local" code="GR%" displayName="GRANULOCYTE %" /> <statusCode code="completed" /> <effectiveTime value="586160008945 " /> <value unit="%" xsi:type="PQ" value="64" /> < referenceRange> <observationRange> <text>50-75</text> </observationRange> </referenceRange> </observation> </component> <component> <observation moodCode="EVN" classCode= "OBS"> <templateId root="06.08.840.1.940054.10.22.4.2" /> < id nullFlavor="NA" /> <code codeSystem="local" code="LY#" displayName= "LYMPHOCYTE #" /> <statusCode code="completed" /> < effectiveTime value="" /> <value unit="k/cumm" xsi:type="PQ " value="2.0" /> <referenceRange> <observationRange> <text>1.0-4.0</text> </observationRange> </ referenceRange> </observation> </component> <component> <observation moodCode="EVN" classCode="OBS"> <templateId root= "06.08.840.1.995520.10.4.2" /> <id nullFlavor="NA" /> < code codeSystem="local" code="LY%" displayName="LYMPHOCYTE %" /> <statusCode code="completed" /> <effectiveTime value="" /> <value unit="%" xsi:type="PQ" value="27" /> < referenceRange> <observationRange> <text>20-30</text> </observationRange> </referenceRange> </observation> </component> <component> <observation moodCode="EVN" classCode= "OBS"> <templateId root="06.08.840.1.864431.10.2022.4.2" /> < id nullFlavor="NA" /> <code codeSystem="local" code="MCH" displayName= "MEAN CELL HGB" /> <statusCode code="completed" /> < effectiveTime value="497463394286" /> <value unit="pg" xsi:type="PQ" value="35.5" /> <interpretationCode codeSystem="local" code="*" /> <referenceRange> <observationRange> <text>27.0- 33.0</text> </observationRange> </referenceRange> </ observation> </component> <component> <observation moodCode= "EVN" classCode="OBS"> <templateId root="16.840.1.854058.10.20.22.4.2 " /> <id nullFlavor="NA" /> <code codeSystem="local" code= "MCHC" displayName="MEAN CELL HGB CONCENTRATION" /> <statusCode code= "completed" /> <effectiveTime value="025961649058" /> <value unit="g/dL" xsi:type="PQ" value="34.3" /> <referenceRange> < observationRange> <text>32.0-37.0</text> </ observationRange> </referenceRange> </observation> </ component> <component> <observation moodCode="EVN" classCode="OBS"> <templateId root="06.08.840.1.389839.10..22.4.2" /> <id nullFlavor="NA" /> <code codeSystem="local" code="MCV" displayName= "MEAN CELL VOLUME" /> <statusCode code="completed" /> < effectiveTime value="914938796809" /> <value unit="fl" xsi:type="PQ" value="103.4" /> <interpretationCode codeSystem="local" code="*" /> <referenceRange> <observationRange> <text>80.0- 100.0</text> </observationRange> </referenceRange> </ observation> </component> <component> <observation moodCode= "EVN" classCode="OBS"> <templateId root="06.08.840.1.731148.10.20.22.4.2 " /> <id nullFlavor="NA" /> <code codeSystem="local" code="MO# " displayName="MONOCYTE #" /> <statusCode code="completed" /> <effectiveTime value="963401909612" /> <value unit="k/cumm" xsi:type= "PQ" value="0.6" /> <referenceRange> <observationRange> <text>0.1-1.0</text> </observationRange> </ referenceRange> </observation> </component> <component> <observation moodCode="EVN" classCode="OBS"> <templateId root= "216.840.1.685886.10..22.4.2" /> <id nullFlavor="NA" /> < code codeSystem="local" code="MO%" displayName="MONOCYTE %" /> <statusCode code="completed" /> <effectiveTime value="633862668396" /> <value unit="%" xsi:type="PQ" value="8" /> < interpretationCode codeSystem="local" code="*" /> <referenceRange> <observationRange> <text>4-6</text> </ observationRange> </referenceRange> </observation> </ component> <component> <observation moodCode="EVN" classCode="OBS"> <templateId root="216.840.1.122521.10..22.4.2" /> <id nullFlavor="NA" /> <code codeSystem="local" code="RBC" displayName=" RED BLOOD CELL" /> <statusCode code="completed" /> < effectiveTime value="107680257125" /> <value unit="m/cumm" xsi:type="PQ " value="3.52" /> <interpretationCode codeSystem="local" code="*" /> <referenceRange> <observationRange> <text>4.00- 6.00</text> </observationRange> </referenceRange> </ observation> </component> <component> <observation moodCode= "EVN" classCode="OBS"> <templateId root="216.840.1.558036.1022.4.2 " /> <id nullFlavor="NA" /> <code codeSystem="local" code="RDW " displayName="RED CELL DISTRIBUTION WIDTH" /> <statusCode code= "completed" /> <effectiveTime value="" /> <value unit="%" xsi:type="PQ" value="13.4" /> <referenceRange> <observationRange> <text>11.0-15.6</text> </ observationRange> </referenceRange> </observation> </ component> <component> <observation moodCode="EVN" classCode="OBS"> <templateId root="06.08.840.1.829965.22.4.2" /> <id nullFlavor="NA" /> <code codeSystem="local" code="WBC" displayName= "WHITE BLOOD CELL" /> <statusCode code="completed" /> < effectiveTime value="" /> <value unit="k/cumm" xsi:type="PQ " value="7.3" /> <referenceRange> <observationRange> <text>5.0-10.0</text> </observationRange> </ referenceRange> </observation> </component> <component> <observation moodCode="EVN" classCode="OBS"> <templateId root= "16.840.1.775782.2022.4.2" /> <id nullFlavor="NA" /> < code codeSystem="local" code="HGBT" displayName="HEMOGLOBIN" /> < statusCode code="completed" /> <effectiveTime value="" /> <value unit="gm/dL" xsi:type="PQ" value="12.5" /> < referenceRange> <observationRange> <text>12.0-16.0</text > </observationRange> </referenceRange> </observation > </component> <component> <observation moodCode="EVN" classCode="OBS"> <templateId root="216.840.1.221161.10.20.22.4.2" /> <id nullFlavor="NA" /> <code codeSystem="local" code="HCTT" displayName="HEMATOCRIT" /> <statusCode code="completed" /> < effectiveTime value="959010119325" /> <value unit="%" xsi:type="PQ " value="36.4" /> <interpretationCode codeSystem="local" code="*" /> <referenceRange> <observationRange> <text>37.0- 47.0</text> </observationRange> </referenceRange> </ observation> </component> <component> <observation moodCode= "EVN" classCode="OBS"> <templateId root="216.840.1.626211.02.09.22.4.2 " /> <id nullFlavor="NA" /> <code codeSystem="local" code= "PLTT" displayName="PLATELET COUNT" /> <statusCode code="completed" /> <effectiveTime value="813365188665" /> <value unit="k/cumm" xsi:type="PQ" value="264" /> <referenceRange> < observationRange> <text>150-450</text> </ observationRange> </referenceRange> </observation> </ component> </organizer> </entry> <entry> <organizer moodCode="EVN" classCode="BATTERY"> <templateId root="216.840.1.952575.10.2022.4.1" /> <id nullFlavor="NA" /> <code codeSystem="local" code="METABC" displayName="METABOLIC PANEL, COMPREHN" /> <statusCode code="completed" /> <component> <observation moodCode="EVN" classCode="OBS"> < templateId root="06.08.840.1.595097.10.4.2" /> <id nullFlavor="NA " /> <code codeSystem="local" code="K" displayName="POTASSIUM" /> <statusCode code="completed" /> <effectiveTime value="927035795412 " /> <value unit="mmol/L" xsi:type="PQ" value="3.8" /> < referenceRange> <observationRange> <text>3.5-5.3</text> </observationRange> </referenceRange> </observation > </component> <component> <observation moodCode="EVN" classCode="OBS"> <templateId root="840.1.447846.02.09.22.4.2" /> <id nullFlavor="NA" /> <code codeSystem="local" code="eGFR" displayName="EST GFR (MDRD)" /> <statusCode code="completed" /> <effectiveTime value="418520444938" /> <value unit="mL/min" xsi:type ="PQ" value="> 60" /> <referenceRange> <observationRange > <text>> 59</text> </observationRange> </ referenceRange> </observation> </component> <component> <observation moodCode="EVN" classCode="OBS"> <templateId root= "840.1.810622.02.09.22.4.2" /> <id nullFlavor="NA" /> < code codeSystem="local" code="GAP" displayName="ANION GAP" /> < statusCode code="completed" /> <effectiveTime value="162809989178" /> <value unit="mmol/L" xsi:type="PQ" value="12" /> < referenceRange> <observationRange> <text>5-15</text> </observationRange> </referenceRange> </observation> </component> <component> <observation moodCode="EVN" classCode= "OBS"> <templateId root="216.840.1.822517.10..22.4.2" /> < id nullFlavor="NA" /> <code codeSystem="local" code="eCrCl" displayName ="EST CrCl (CG)" /> <statusCode code="completed" /> < effectiveTime value="409611351181" /> <value unit="mL/min" xsi:type="PQ " value="> 60" /> <referenceRange> <observationRange> <text>> 59</text> </observationRange> </ referenceRange> </observation> </component> <component> <observation moodCode="EVN" classCode="OBS"> <templateId root= "06.08.840.1.710009.10..4.2" /> <id nullFlavor="NA" /> < code codeSystem="local" code="GLU" displayName="GLUCOSE" /> < statusCode code="completed" /> <effectiveTime value="" /> <value unit="mg/dL" xsi:type="PQ" value="97" /> < referenceRange> <observationRange> <text>70-99</text> </observationRange> </referenceRange> </observation> </component> <component> <observation moodCode="EVN" classCode= "OBS"> <templateId root="16.840.1.394887.10.20.22.4.2" /> < id nullFlavor="NA" /> <code codeSystem="local" code="CA" displayName= "CALCIUM" /> <statusCode code="completed" /> <effectiveTime value="392995178084" /> <value unit="mg/dL" xsi:type="PQ" value="9.6" / > <referenceRange> <observationRange> <text>8.5 -10.1</text> </observationRange> </referenceRange> </ observation> </component> <component> <observation moodCode= "EVN" classCode="OBS"> <templateId root="06.08.840.1.984926.10.20.22.4.2 " /> <id nullFlavor="NA" /> <code codeSystem="local" code="BUN " displayName="BLOOD UREA NITROGEN" /> <statusCode code="completed" /> <effectiveTime value="097758585754" /> <value unit="mg/dL" xsi:type="PQ" value="13" /> <referenceRange> < observationRange> <text>7-20</text> </observationRange> </referenceRange> </observation> </component> < component> <observation moodCode="EVN" classCode="OBS"> < templateId root="16.840.1.445908.10.20.22.4.2" /> <id nullFlavor="NA " /> <code codeSystem="local" code="CREAT" displayName="CREATININE" /> <statusCode code="completed" /> <effectiveTime value= "832791774902" /> <value unit="mg/dL" xsi:type="PQ" value="0.8" /> <referenceRange> <observationRange> <text>0.6-1.0< /text> </observationRange> </referenceRange> </ observation> </component> <component> <observation moodCode= "EVN" classCode="OBS"> <templateId root="06.08.840.1.345843.10.22.4.2 " /> <id nullFlavor="NA" /> <code codeSystem="local" code="NA " displayName="SODIUM" /> <statusCode code="completed" /> < effectiveTime value="186963608973" /> <value unit="mmol/L" xsi:type="PQ " value="141" /> <referenceRange> <observationRange> <text>135-148</text> </observationRange> </ referenceRange> </observation> </component> <component> <observation moodCode="EVN" classCode="OBS"> <templateId root= "216.840.1.834388.02.09.22.4.2" /> <id nullFlavor="NA" /> < code codeSystem="local" code="CL" displayName="CHLORIDE" /> < statusCode code="completed" /> <effectiveTime value="442919165231" /> <value unit="mmol/L" xsi:type="PQ" value="104" /> < referenceRange> <observationRange> <text>98-110</text> </observationRange> </referenceRange> </observation> </component> <component> <observation moodCode="EVN" classCode ="OBS"> <templateId root="216.840.1.797486.02.09.22.4.2" /> < id nullFlavor="NA" /> <code codeSystem="local" code="AST" displayName= "AST/SGOT" /> <statusCode code="completed" /> <effectiveTime value="630347373130" /> <value unit="Units/L" xsi:type="PQ" value="17" /> <referenceRange> <observationRange> <text>10 -37</text> </observationRange> </referenceRange> </ observation> </component> <component> <observation moodCode= "EVN" classCode="OBS"> <templateId root="06.08.840.1.175494.10.20.22.4.2 " /> <id nullFlavor="NA" /> <code codeSystem="local" code="ALT " displayName="ALT/SGPT" /> <statusCode code="completed" /> < effectiveTime value="782195424384" /> <value unit="Units/L" xsi:type= "PQ" value="21" /> <referenceRange> <observationRange> <text>< 66</text> </observationRange> </ referenceRange> </observation> </component> <component> <observation moodCode="EVN" classCode="OBS"> <templateId root= "06.08.840.1.408928.10.22.4.2" /> <id nullFlavor="NA" /> < code codeSystem="local" code="CO2" displayName="CARBON DIOXIDE" /> < statusCode code="completed" /> <effectiveTime value="" /> <value unit="mmol/L" xsi:type="PQ" value="25" /> < referenceRange> <observationRange> <text>21-32</text> </observationRange> </referenceRange> </observation> </component> <component> <observation moodCode="EVN" classCode= "OBS"> <templateId root="06.08.840.1.185790.10.2022.4.2" /> < id nullFlavor="NA" /> <code codeSystem="local" code="TP" displayName= "TOTAL PROTEIN" /> <statusCode code="completed" /> < effectiveTime value="356176616064" /> <value unit="gm/dL" xsi:type="PQ " value="8.0" /> <referenceRange> <observationRange> <text>6.4-8.2</text> </observationRange> </ referenceRange> </observation> </component> <component> <observation moodCode="EVN" classCode="OBS"> <templateId root= "216.840.1.811794.10.4.2" /> <id nullFlavor="NA" /> < code codeSystem="local" code="ALB" displayName="ALBUMIN" /> < statusCode code="completed" /> <effectiveTime value="" /> <value unit="gm/dL" xsi:type="PQ" value="4.2" /> < referenceRange> <observationRange> <text>3.4-5.0</text> </observationRange> </referenceRange> </observation > </component> <component> <observation moodCode="EVN" classCode="OBS"> <templateId root="06.08.840.1.017555.02.09.22.4.2" /> <id nullFlavor="NA" /> <code codeSystem="local" code="BILTOT" displayName="BILI TOTAL" /> <statusCode code="completed" /> < effectiveTime value="534780334828" /> <value unit="mg/dL" xsi:type="PQ " value="0.2" /> <referenceRange> <observationRange> <text>0.0-1.0</text> </observationRange> </ referenceRange> </observation> </component> <component> <observation moodCode="EVN" classCode="OBS"> <templateId root= "16.840.1.310645.02.09.22.4.2" /> <id nullFlavor="NA" /> < code codeSystem="local" code="ALKP" displayName="ALKALINE PHOSPHATASE TOTAL" /> <statusCode code="completed" /> <effectiveTime value= "" /> <value unit="IU/L" xsi:type="PQ" value="64" /> <referenceRange> <observationRange> <text>45-117</ text> </observationRange> </referenceRange> </ observation> </component> </organizer> </entry> <entry> <organizer moodCode="EVN" classCode="BATTERY"> <templateId root= "16.840.1.518467.10..22.4.1" /> <id nullFlavor="NA" /> <code codeSystem="local" code="LIP" displayName="LIPASE" /> <statusCode code= "completed" /> <component> <observation moodCode="EVN" classCode= "OBS"> <templateId root="06.08.840.1.869570.10...4.2" /> < id nullFlavor="NA" /> <code codeSystem="local" code="LIP" displayName= "LIPASE" /> <statusCode code="completed" /> <effectiveTime value="689674877607" /> <value unit="Units/L" xsi:type="PQ" value="123 " /> <referenceRange> <observationRange> <text> 73-393</text> </observationRange> </referenceRange> < /observation> </component> </organizer> </entry> <entry> < organizer moodCode="EVN" classCode="BATTERY"> <templateId root= "06.08.840.1.697115.10..22.4.1" /> <id nullFlavor="NA" /> <code codeSystem="local" code="UA" displayName="URINALYSIS, ROUTINE" /> < statusCode code="completed" /> <component> <observation moodCode= "EVN" classCode="OBS"> <templateId root="06.08.840.1.990928.10..22.4.2 " /> <id nullFlavor="NA" /> <code codeSystem="local" code= "LEUESU" displayName="UA LEUKOCYTE ESTERASE DIPSTICK" /> <statusCode code="completed" /> <effectiveTime value="257418383425" /> < value unit="" xsi:type="PQ" value="NEGATIVE" /> <referenceRange> <observationRange> <text>NEGATIVE</text> </ observationRange> </referenceRange> </observation> </ component> <component> <observation moodCode="EVN" classCode="OBS"> <templateId root="840.1.047490.10..22.4.2" /> <id nullFlavor="NA" /> <code codeSystem="local" code="NITRIU" displayName= "UA NITRITE DIPSTICK" /> <statusCode code="completed" /> < effectiveTime value="" /> <value unit="" xsi:type="PQ" value="NEGATIVE" /> <referenceRange> <observationRange> <text>NEGATIVE</text> </observationRange> </ referenceRange> </observation> </component> <component> <observation moodCode="EVN" classCode="OBS"> <templateId root= "840.1.034996.10..22.4.2" /> <id nullFlavor="NA" /> < code codeSystem="local" code="PROTEIU" displayName="UA PROTEIN DIPSTICK" /> <statusCode code="completed" /> <effectiveTime value= "895280869305" /> <value unit="" xsi:type="PQ" value="NEGATIVE" /> <referenceRange> <observationRange> <text>NEGATIVE </text> </observationRange> </referenceRange> </ observation> </component> <component> <observation moodCode= "EVN" classCode="OBS"> <templateId root="06.08.830.1.776426.10.22.4.2 " /> <id nullFlavor="NA" /> <code codeSystem="local" code= "DGLUU" displayName="UA GLUCOSE DIPSTICK" /> <statusCode code= "completed" /> <effectiveTime value="407492031506" /> <value unit="" xsi:type="PQ" value="NEGATIVE" /> <referenceRange> < observationRange> <text>NEGATIVE</text> </ observationRange> </referenceRange> </observation> </ component> <component> <observation moodCode="EVN" classCode="OBS"> <templateId root="216.840.1.369890.02.09.22.4.2" /> <id nullFlavor="NA" /> <code codeSystem="local" code="KETONU" displayName= "UA KETONE DIPSTICK" /> <statusCode code="completed" /> < effectiveTime value="587085630471" /> <value unit="" xsi:type="PQ" value="NEGATIVE" /> <referenceRange> <observationRange> <text>NEGATIVE</text> </observationRange> </ referenceRange> </observation> </component> <component> <observation moodCode="EVN" classCode="OBS"> <templateId root= "216.840.1.784515.02.09.22.4.2" /> <id nullFlavor="NA" /> < code codeSystem="local" code="UROBILU" displayName="UA UROBILINOGEN DIPSTICK" / > <statusCode code="completed" /> <effectiveTime value= "516810356837" /> <value unit="" xsi:type="PQ" value="NORMAL" /> <referenceRange> <observationRange> <text>NORMAL</ text> </observationRange> </referenceRange> </ observation> </component> <component> <observation moodCode= "EVN" classCode="OBS"> <templateId root="216.840.1.920496.10..4.2 " /> <id nullFlavor="NA" /> <code codeSystem="local" code= "BILU" displayName="UA BILIRUBIN DIPSTICK" /> <statusCode code= "completed" /> <effectiveTime value="" /> <value unit="" xsi:type="PQ" value="NEGATIVE" /> <referenceRange> < observationRange> <text>NEGATIVE</text> </ observationRange> </referenceRange> </observation> </ component> <component> <observation moodCode="EVN" classCode="OBS"> <templateId root="16.840.1.849691.10..4.2" /> <id nullFlavor="NA" /> <code codeSystem="local" code="SPENCER" displayName="UA BLOOD DIPSTICK" /> <statusCode code="completed" /> < effectiveTime value="" /> <value unit="" xsi:type="PQ" value="NEGATIVE" /> <referenceRange> <observationRange> <text>NEGATIVE</text> </observationRange> </ referenceRange> </observation> </component> <component> <observation moodCode="EVN" classCode="OBS"> <templateId root= "16.840.1.490095.10..4.2" /> <id nullFlavor="NA" /> < code codeSystem="local" code="SPGRU" displayName="UA SPECIFIC GRAVITY" /> <statusCode code="completed" /> <effectiveTime value=" " /> <value unit="" xsi:type="PQ" value="1.015" /> < referenceRange> <observationRange> <text>1.015-1.025</ text> </observationRange> </referenceRange> </ observation> </component> <component> <observation moodCode= "EVN" classCode="OBS"> <templateId root="2.16.840.1.884436.10..22.4.2 " /> <id nullFlavor="NA" /> <code codeSystem="local" code="FEROZ " displayName="UR PH" /> <statusCode code="completed" /> < effectiveTime value="418434912051" /> <value unit="" xsi:type="PQ" value="6.0" /> <referenceRange> <observationRange> <text>5.0-7.0</text> </observationRange> </ referenceRange> </observation> </component> </organizer> </entry > <entry> <organizer moodCode="EVN" classCode="BATTERY"> <templateId root="2.16.840.1.812014.10..22.4.1" /> <id nullFlavor="NA" /> <code codeSystem="local" code="PREGU" displayName="UR TEST" /> < statusCode code="completed" /> <component> <observation moodCode= "EVN" classCode="OBS"> <templateId root="2.16.840.1.620298.10..22.4.2 " /> <id nullFlavor="NA" /> <code codeSystem="local" code= "PREGU" displayName="UR TEST" /> <statusCode code="completed " /> <effectiveTime value="749125956772" /> <value unit="" xsi :type="PQ" value="NEGATIVE" /> <referenceRange> < observationRange> <text>NEGATIVE</text> </ observationRange> </referenceRange> </observation> </ component> </organizer> </entry> <entry> <organizer moodCode="EVN" classCode="BATTERY"> <templateId root="840.1.983859.10..22.4.1" /> <id nullFlavor="NA" /> <code codeSystem="local" code="CBCD" displayName="CBC W/DIFF" /> <statusCode code="completed" /> <component > <observation moodCode="EVN" classCode="OBS"> <templateId root= "840.1.784345.02.09.22.4.2" /> <id nullFlavor="NA" /> < code codeSystem="local" code="GR#" displayName="GRANULOCYTE #" /> < statusCode code="completed" /> <effectiveTime value="865089696065" /> <value unit="k/cumm" xsi:type="PQ" value="8.2" /> < referenceRange> <observationRange> <text>2.0-9.0</text> </observationRange> </referenceRange> </observation > </component> <component> <observation moodCode="EVN" classCode="OBS"> <templateId root="840.1.431333.02.09.22.4.2" /> <id nullFlavor="NA" /> <code codeSystem="local" code="GR% " displayName="GRANULOCYTE %" /> <statusCode code="completed" /> <effectiveTime value="634815098470" /> <value unit="%" xsi: type="PQ" value="76" /> <interpretationCode codeSystem="local" code="* " /> <referenceRange> <observationRange> <text> 50-75</text> </observationRange> </referenceRange> </ observation> </component> <component> <observation moodCode= "EVN" classCode="OBS"> <templateId root="06.08.830.1.627948.1022.4.2 " /> <id nullFlavor="NA" /> <code codeSystem="local" code="LY# " displayName="LYMPHOCYTE #" /> <statusCode code="completed" /> <effectiveTime value="" /> <value unit="k/cumm" xsi:type ="PQ" value="2.2" /> <referenceRange> <observationRange> <text>1.0-4.0</text> </observationRange> </ referenceRange> </observation> </component> <component> <observation moodCode="EVN" classCode="OBS"> <templateId root= "16.840.1.836659.02.09.22.4.2" /> <id nullFlavor="NA" /> < code codeSystem="local" code="LY%" displayName="LYMPHOCYTE %" /> <statusCode code="completed" /> <effectiveTime value="" /> <value unit="%" xsi:type="PQ" value="20" /> < referenceRange> <observationRange> <text>20-30</text> </observationRange> </referenceRange> </observation> </component> <component> <observation moodCode="EVN" classCode= "OBS"> <templateId root="06.08.840.1.517765.10.4.2" /> < id nullFlavor="NA" /> <code codeSystem="local" code="MCH" displayName= "MEAN CELL HGB" /> <statusCode code="completed" /> < effectiveTime value="190870511222" /> <value unit="pg" xsi:type="PQ" value="34.8" /> <interpretationCode codeSystem="local" code="*" /> <referenceRange> <observationRange> <text>27.0- 33.0</text> </observationRange> </referenceRange> </ observation> </component> <component> <observation moodCode= "EVN" classCode="OBS"> <templateId root="06.08.840.1.195844.10.20.22.4.2 " /> <id nullFlavor="NA" /> <code codeSystem="local" code= "MCHC" displayName="MEAN CELL HGB CONCENTRATION" /> <statusCode code= "completed" /> <effectiveTime value="692678430714" /> <value unit="g/dL" xsi:type="PQ" value="34.1" /> <referenceRange> < observationRange> <text>32.0-37.0</text> </ observationRange> </referenceRange> </observation> </ component> <component> <observation moodCode="EVN" classCode="OBS"> <templateId root="840.1.585475.02.09.22.4.2" /> <id nullFlavor="NA" /> <code codeSystem="local" code="MCV" displayName= "MEAN CELL VOLUME" /> <statusCode code="completed" /> < effectiveTime value="279501499715" /> <value unit="fl" xsi:type="PQ" value="102.1" /> <interpretationCode codeSystem="local" code="*" /> <referenceRange> <observationRange> <text>80.0- 100.0</text> </observationRange> </referenceRange> </ observation> </component> <component> <observation moodCode= "EVN" classCode="OBS"> <templateId root="06.08.840.1.852038.10.20.22.4.2 " /> <id nullFlavor="NA" /> <code codeSystem="local" code="MO# " displayName="MONOCYTE #" /> <statusCode code="completed" /> <effectiveTime value="796429117761" /> <value unit="k/cumm" xsi:type= "PQ" value="0.4" /> <referenceRange> <observationRange> <text>0.1-1.0</text> </observationRange> </ referenceRange> </observation> </component> <component> <observation moodCode="EVN" classCode="OBS"> <templateId root= "216.840.1.254344.10..22.4.2" /> <id nullFlavor="NA" /> < code codeSystem="local" code="MO%" displayName="MONOCYTE %" /> <statusCode code="completed" /> <effectiveTime value="501971682702" /> <value unit="%" xsi:type="PQ" value="4" /> < referenceRange> <observationRange> <text>4-6</text> </observationRange> </referenceRange> </observation> </component> <component> <observation moodCode="EVN" classCode= "OBS"> <templateId root="216.840.1.011940.10..22.4.2" /> < id nullFlavor="NA" /> <code codeSystem="local" code="RBC" displayName= "RED BLOOD CELL" /> <statusCode code="completed" /> < effectiveTime value="542862912140" /> <value unit="m/cumm" xsi:type="PQ " value="3.79" /> <interpretationCode codeSystem="local" code="*" /> <referenceRange> <observationRange> <text>4.00- 6.00</text> </observationRange> </referenceRange> </ observation> </component> <component> <observation moodCode= "EVN" classCode="OBS"> <templateId root="2.16.840.1.845761.10.20.22.4.2 " /> <id nullFlavor="NA" /> <code codeSystem="local" code="RDW " displayName="RED CELL DISTRIBUTION WIDTH" /> <statusCode code= "completed" /> <effectiveTime value="730521870781" /> <value unit="%" xsi:type="PQ" value="13.3" /> <referenceRange> <observationRange> <text>11.0-15.6</text> </ observationRange> </referenceRange> </observation> </ component> <component> <observation moodCode="EVN" classCode="OBS"> <templateId root="06.08.840.1.862372.1020.22.4.2" /> <id nullFlavor="NA" /> <code codeSystem="local" code="WBC" displayName= "WHITE BLOOD CELL" /> <statusCode code="completed" /> < effectiveTime value="102397543563" /> <value unit="k/cumm" xsi:type="PQ " value="10.9" /> <interpretationCode codeSystem="local" code="*" /> <referenceRange> <observationRange> <text>5.0- 10.0</text> </observationRange> </referenceRange> </ observation> </component> <component> <observation moodCode= "EVN" classCode="OBS"> <templateId root="06.08.840.1.399697.10.20.22.4.2 " /> <id nullFlavor="NA" /> <code codeSystem="local" code= "HGBT" displayName="HEMOGLOBIN" /> <statusCode code="completed" /> <effectiveTime value="964644989360" /> <value unit="gm/dL" xsi: type="PQ" value="13.2" /> <referenceRange> <observationRange > <text>12.0-16.0</text> </observationRange> </ referenceRange> </observation> </component> <component> <observation moodCode="EVN" classCode="OBS"> <templateId root= "216.840.1.667077.10..22.4.2" /> <id nullFlavor="NA" /> < code codeSystem="local" code="HCTT" displayName="HEMATOCRIT" /> < statusCode code="completed" /> <effectiveTime value="265888056162" /> <value unit="%" xsi:type="PQ" value="38.7" /> < referenceRange> <observationRange> <text>37.0-47.0</text > </observationRange> </referenceRange> </observation > </component> <component> <observation moodCode="EVN" classCode="OBS"> <templateId root="06.08.840.1.458454.10...4.2" /> <id nullFlavor="NA" /> <code codeSystem="local" code="PLTT" displayName="PLATELET COUNT" /> <statusCode code="completed" /> <effectiveTime value="631871963458" /> <value unit="k/cumm" xsi:type ="PQ" value="309" /> <referenceRange> <observationRange> <text>150-450</text> </observationRange> </ referenceRange> </observation> </component> </organizer> </entry > <entry> <organizer moodCode="EVN" classCode="BATTERY"> <templateId root="06.08.840.1.202910.10...4.1" /> <id nullFlavor="NA" /> <code codeSystem="local" code="METABC" displayName="METABOLIC PANEL, COMPREHN" /> <statusCode code="completed" /> <component> <observation moodCode= "EVN" classCode="OBS"> <templateId root="216.840.1.260514.10..22.4.2 " /> <id nullFlavor="NA" /> <code codeSystem="local" code="K" displayName="POTASSIUM" /> <statusCode code="completed" /> < effectiveTime value="885379325423" /> <value unit="mmol/L" xsi:type="PQ " value="3.1" /> <interpretationCode codeSystem="local" code="*" /> <referenceRange> <observationRange> <text>3.5-5.3 </text> </observationRange> </referenceRange> </ observation> </component> <component> <observation moodCode= "EVN" classCode="OBS"> <templateId root="16.840.1.920435.02.09.22.4.2 " /> <id nullFlavor="NA" /> <code codeSystem="local" code= "eGFR" displayName="EST GFR (MDRD)" /> <statusCode code="completed" /> <effectiveTime value="392846746918" /> <value unit="mL/min" xsi:type="PQ" value="> 60" /> <referenceRange> < observationRange> <text>> 59</text> </ observationRange> </referenceRange> </observation> </ component> <component> <observation moodCode="EVN" classCode="OBS"> <templateId root="216.840.1.041396.10...4.2" /> <id nullFlavor="NA" /> <code codeSystem="local" code="GAP" displayName= "ANION GAP" /> <statusCode code="completed" /> <effectiveTime value="664588891285" /> <value unit="mmol/L" xsi:type="PQ" value="15" / > <referenceRange> <observationRange> <text>5- 15</text> </observationRange> </referenceRange> </ observation> </component> <component> <observation moodCode= "EVN" classCode="OBS"> <templateId root="216.840.1.519845.10..22.4.2 " /> <id nullFlavor="NA" /> <code codeSystem="local" code= "eCrCl" displayName="EST CrCl (CG)" /> <statusCode code="completed" /> <effectiveTime value="291930185278" /> <value unit="mL/min" xsi:type="PQ" value="> 60" /> <referenceRange> < observationRange> <text>> 59</text> </ observationRange> </referenceRange> </observation> </ component> <component> <observation moodCode="EVN" classCode="OBS"> <templateId root="06.08.840.1.896279.10..22.4.2" /> <id nullFlavor="NA" /> <code codeSystem="local" code="GLU" displayName= "GLUCOSE" /> <statusCode code="completed" /> <effectiveTime value="632714705230" /> <value unit="mg/dL" xsi:type="PQ" value="134" / > <interpretationCode codeSystem="local" code="*" /> < referenceRange> <observationRange> <text>70-99</text> </observationRange> </referenceRange> </observation> </component> <component> <observation moodCode="EVN" classCode= "OBS"> <templateId root="16.840.1.111473.10.20.22.4.2" /> < id nullFlavor="NA" /> <code codeSystem="local" code="CA" displayName= "CALCIUM" /> <statusCode code="completed" /> <effectiveTime value="295849152716" /> <value unit="mg/dL" xsi:type="PQ" value="9.8" / > <referenceRange> <observationRange> <text>8.5 -10.1</text> </observationRange> </referenceRange> </ observation> </component> <component> <observation moodCode= "EVN" classCode="OBS"> <templateId root="216.840.1.554186.10.20.22.4.2 " /> <id nullFlavor="NA" /> <code codeSystem="local" code="BUN " displayName="BLOOD UREA NITROGEN" /> <statusCode code="completed" /> <effectiveTime value="848609661360" /> <value unit="mg/dL" xsi:type="PQ" value="12" /> <referenceRange> < observationRange> <text>7-20</text> </observationRange> </referenceRange> </observation> </component> < component> <observation moodCode="EVN" classCode="OBS"> < templateId root="216.840.1.594639.10.20.22.4.2" /> <id nullFlavor="NA " /> <code codeSystem="local" code="CREAT" displayName="CREATININE" /> <statusCode code="completed" /> <effectiveTime value= "625409790152" /> <value unit="mg/dL" xsi:type="PQ" value="0.7" /> <referenceRange> <observationRange> <text>0.6-1.0< /text> </observationRange> </referenceRange> </ observation> </component> <component> <observation moodCode= "EVN" classCode="OBS"> <templateId root="216.840.1.602480...22.4.2 " /> <id nullFlavor="NA" /> <code codeSystem="local" code="NA " displayName="SODIUM" /> <statusCode code="completed" /> < effectiveTime value="970051768460" /> <value unit="mmol/L" xsi:type="PQ " value="140" /> <referenceRange> <observationRange> <text>135-148</text> </observationRange> </ referenceRange> </observation> </component> <component> <observation moodCode="EVN" classCode="OBS"> <templateId root= "216.840.1.739510...4.2" /> <id nullFlavor="NA" /> < code codeSystem="local" code="CL" displayName="CHLORIDE" /> < statusCode code="completed" /> <effectiveTime value="807314100501" /> <value unit="mmol/L" xsi:type="PQ" value="103" /> < referenceRange> <observationRange> <text>98-110</text> </observationRange> </referenceRange> </observation> </component> <component> <observation moodCode="EVN" classCode ="OBS"> <templateId root="2.16.840.1.649058...22.4.2" /> < id nullFlavor="NA" /> <code codeSystem="local" code="AST" displayName= "AST/SGOT" /> <statusCode code="completed" /> <effectiveTime value="660737664878" /> <value unit="Units/L" xsi:type="PQ" value="14" /> <referenceRange> <observationRange> <text>10 -37</text> </observationRange> </referenceRange> </ observation> </component> <component> <observation moodCode= "EVN" classCode="OBS"> <templateId root="06.08.840.1.027240.10..22.4.2 " /> <id nullFlavor="NA" /> <code codeSystem="local" code="ALT " displayName="ALT/SGPT" /> <statusCode code="completed" /> < effectiveTime value="809160114924" /> <value unit="Units/L" xsi:type= "PQ" value="19" /> <referenceRange> <observationRange> <text>< 66</text> </observationRange> </ referenceRange> </observation> </component> <component> <observation moodCode="EVN" classCode="OBS"> <templateId root= "06.08.840.1.553808.10..4.2" /> <id nullFlavor="NA" /> < code codeSystem="local" code="CO2" displayName="CARBON DIOXIDE" /> < statusCode code="completed" /> <effectiveTime value="813436224343" /> <value unit="mmol/L" xsi:type="PQ" value="22" /> < referenceRange> <observationRange> <text>21-32</text> </observationRange> </referenceRange> </observation> </component> <component> <observation moodCode="EVN" classCode= "OBS"> <templateId root="06.08.840.1.578312.10..22.4.2" /> < id nullFlavor="NA" /> <code codeSystem="local" code="TP" displayName= "TOTAL PROTEIN" /> <statusCode code="completed" /> < effectiveTime value="123479249734" /> <value unit="gm/dL" xsi:type="PQ " value="8.5" /> <interpretationCode codeSystem="local" code="*" /> <referenceRange> <observationRange> <text>6.4-8.2 </text> </observationRange> </referenceRange> </ observation> </component> <component> <observation moodCode= "EVN" classCode="OBS"> <templateId root="16.840.1.626620.10..4.2 " /> <id nullFlavor="NA" /> <code codeSystem="local" code="ALB " displayName="ALBUMIN" /> <statusCode code="completed" /> < effectiveTime value="001784054235" /> <value unit="gm/dL" xsi:type="PQ " value="4.3" /> <referenceRange> <observationRange> <text>3.4-5.0</text> </observationRange> </ referenceRange> </observation> </component> <component> <observation moodCode="EVN" classCode="OBS"> <templateId root= "06.08.840.1.774862.02.09.22.4.2" /> <id nullFlavor="NA" /> < code codeSystem="local" code="BILTOT" displayName="BILI TOTAL" /> < statusCode code="completed" /> <effectiveTime value="315019573946" /> <value unit="mg/dL" xsi:type="PQ" value="0.4" /> < referenceRange> <observationRange> <text>0.0-1.0</text> </observationRange> </referenceRange> </observation > </component> <component> <observation moodCode="EVN" classCode="OBS"> <templateId root="06.08.840.1.177928.22.4.2" /> <id nullFlavor="NA" /> <code codeSystem="local" code="ALKP" displayName="ALKALINE PHOSPHATASE TOTAL" /> <statusCode code="completed " /> <effectiveTime value="033406441048" /> <value unit="IU/L " xsi:type="PQ" value="66" /> <referenceRange> < observationRange> <text>45-117</text> </observationRange > </referenceRange> </observation> </component> </ organizer> </entry> <entry> <organizer moodCode="EVN" classCode="BATTERY"> <templateId root="2.16.840.1.470556.10.20.22.4.1" /> <id nullFlavor= "NA" /> <code codeSystem="local" code="WET" displayName="WET MOUNT" /> <statusCode code="completed" /> <component> <observation moodCode= "EVN" classCode="OBS"> <templateId root="2.16.840.1.174689.10.20.22.4.2 " /> <id nullFlavor="NA" /> <code codeSystem="local" code="MB " displayName="Microbiology" /> <statusCode code="completed" /> <effectiveTime value="235995297217" /> <value xsi:type="ST" value="< pre><b>WET MOUNT</b> See [facility]() Adele Date/Time: 08/2016 18:03 Karen Date/Time: // :SOURCE: CERVIXSPEC DESC: See [facility]() Adele Date/Time: 2016 18:03 Karen Date/Time: 02/25/2017 18:27SOURCE : CERVIXSPEC DESC: CLUE CELLSNO CLUE CELLS SEENOTHERBACTERIA 3+TRICHOMONASNO TRICHOMONAS SEENWBCFEW WBCYEASTNO [facility]AST [facility] [id number] [place] [address]</pre>" /> <referenceRange> < observationRange> <text /> </observationRange> </referenceRange> </observation> </component> </organizer> </ entry> <entry> <organizer moodCode="EVN" classCode="BATTERY"> < templateId root="06.08.840.1.964492.10..4.1" /> <id nullFlavor="NA" /> <code codeSystem="local" code="PREGN" displayName=" Screen, Urine NPT" /> <statusCode code="completed" /> <component> < observation moodCode="EVN" classCode="OBS"> <templateId root= "840.1.597754.02.09.22.4.2" /> <id nullFlavor="NA" /> < code codeSystem="local" code="PREGN" displayName=" Screen, Urine NPT" / > <statusCode code="completed" /> <effectiveTime value= "051554242697" /> <value unit="NA" xsi:type="PQ" value="Negative" /> <referenceRange> <observationRange> <text /> </observationRange> </referenceRange> </observation> </component> </organizer> </entry> <entry> <organizer moodCode="EVN " classCode="BATTERY"> <templateId root="840.1.282579...4.1" / > <id nullFlavor="NA" /> <code codeSystem="local" code="CBCWD" displayName="CBC With Platelet and Differential" /> <statusCode code= "completed" /> <component> <observation moodCode="EVN" classCode= "OBS"> <templateId root="06.08.840.1.138368...22.4.2" /> < id nullFlavor="NA" /> <code codeSystem="local" code="ABASR" displayName ="Absolute Basophils" /> <statusCode code="completed" /> < effectiveTime value="366109278755" /> <value unit="10*3/uL" xsi:type= "PQ" value="0.02" /> <referenceRange> <observationRange> <text>0.00-0.20</text> </observationRange> </ referenceRange> </observation> </component> <component> <observation moodCode="EVN" classCode="OBS"> <templateId root= "216.840.1.064085.10..4.2" /> <id nullFlavor="NA" /> < code codeSystem="local" code="AEOSR" displayName="Absolute Eosinophils" /> <statusCode code="completed" /> <effectiveTime value="809801118018 " /> <value unit="" xsi:type="PQ" value="0.02" /> < referenceRange> <observationRange> <text>0.00-0.50</text > </observationRange> </referenceRange> </observation > </component> <component> <observation moodCode="EVN" classCode="OBS"> <templateId root="840.1.029563.02.09.22.4.2" /> <id nullFlavor="NA" /> <code codeSystem="local" code="ALYMR" displayName="Absolute Lymphocytes" /> <statusCode code="completed" /> <effectiveTime value="916569787968" /> <value unit="" xsi:type="PQ" value="2.13" /> <referenceRange> < observationRange> <text>0.80-3.30</text> </ observationRange> </referenceRange> </observation> </ component> <component> <observation moodCode="EVN" classCode="OBS"> <templateId root="06.08.840.1.865720....4.2" /> <id nullFlavor="NA" /> <code codeSystem="local" code="AMONR" displayName= "Absolute Monocytes" /> <statusCode code="completed" /> < effectiveTime value="" /> <value unit="10*3/uL" xsi:type= "PQ" value="0.53" /> <referenceRange> <observationRange> <text>0.30-1.00</text> </observationRange> </ referenceRange> </observation> </component> <component> <observation moodCode="EVN" classCode="OBS"> <templateId root= "2.16.840.1.936442.10.20.22.4.2" /> <id nullFlavor="NA" /> < code codeSystem="local" code="ASEGR" displayName="Absolute Neutrophils" /> <statusCode code="completed" /> <effectiveTime value=" " /> <value unit="10*3/uL" xsi:type="PQ" value="6.22" /> < referenceRange> <observationRange> <text>1.90-7.00</text > </observationRange> </referenceRange> </observation > </component> <component> <observation moodCode="EVN" classCode="OBS"> <templateId root="2.16.840.1.918591.10.20.22.4.2" /> <id nullFlavor="NA" /> <code codeSystem="local" code="BASOR" displayName="Basophils" /> <statusCode code="completed" /> < effectiveTime value="680223788559" /> <value unit="%" xsi:type="PQ " value="0" /> <referenceRange> <observationRange> <text>0-2</text> </observationRange> </referenceRange> </observation> </component> <component> <observation moodCode="EVN" classCode="OBS"> <templateId root= "216.840.1.944200.10..22.4.2" /> <id nullFlavor="NA" /> < code codeSystem="local" code="EOSR" displayName="Eosinophils" /> < statusCode code="completed" /> <effectiveTime value="" /> <value unit="%" xsi:type="PQ" value="0" /> <referenceRange > <observationRange> <text>0-4</text> </ observationRange> </referenceRange> </observation> </ component> <component> <observation moodCode="EVN" classCode="OBS"> <templateId root="16.840.1.816984.10...4.2" /> <id nullFlavor="NA" /> <code codeSystem="local" code="HCT" displayName="HCT " /> <statusCode code="completed" /> <effectiveTime value= "" /> <value unit="%" xsi:type="PQ" value="40.7" /> <referenceRange> <observationRange> <text>37.0- 47.0</text> </observationRange> </referenceRange> </ observation> </component> <component> <observation moodCode= "EVN" classCode="OBS"> <templateId root="16.840.1.471043.10..22.4.2 " /> <id nullFlavor="NA" /> <code codeSystem="local" code="HGB " displayName="HGB" /> <statusCode code="completed" /> < effectiveTime value="944008383053" /> <value unit="g/dL" xsi:type="PQ" value="14.0" /> <referenceRange> <observationRange> <text>12.0-16.0</text> </observationRange> </ referenceRange> </observation> </component> <component> <observation moodCode="EVN" classCode="OBS"> <templateId root= "216.840.1.069660.10.4.2" /> <id nullFlavor="NA" /> < code codeSystem="local" code="IMGA" displayName="Immature Granulocytes" /> <statusCode code="completed" /> <effectiveTime value=" " /> <value unit="%" xsi:type="PQ" value="0.2" /> < referenceRange> <observationRange> <text>0.0-1.0</text> </observationRange> </referenceRange> </observation > </component> <component> <observation moodCode="EVN" classCode="OBS"> <templateId root="06.08.840.1.622696.02.09.22.4.2" /> <id nullFlavor="NA" /> <code codeSystem="local" code="LYMPR" displayName="Lymphocytes" /> <statusCode code="completed" /> < effectiveTime value="" /> <value unit="%" xsi:type="PQ " value="24" /> <referenceRange> <observationRange> <text>20-46</text> </observationRange> </ referenceRange> </observation> </component> <component> <observation moodCode="EVN" classCode="OBS"> <templateId root= "16.840.1.824154.10.4.2" /> <id nullFlavor="NA" /> < code codeSystem="local" code="MCH" displayName="MCH" /> <statusCode code="completed" /> <effectiveTime value="773924754490" /> < value unit="pg" xsi:type="PQ" value="34.4" /> <interpretationCode codeSystem="local" code="*" /> <referenceRange> < observationRange> <text>27.0-32.0</text> </ observationRange> </referenceRange> </observation> </ component> <component> <observation moodCode="EVN" classCode="OBS"> <templateId root="216.840.1.445029.02.09.22.4.2" /> <id nullFlavor="NA" /> <code codeSystem="local" code="MCHC" displayName= "MCHC" /> <statusCode code="completed" /> <effectiveTime value ="[id number]" /> <value unit="g/dL" xsi:type="PQ" value="34.4" /> <referenceRange> <observationRange> <text>32.0- 36.0</text> </observationRange> </referenceRange> </ observation> </component> <component> <observation moodCode= "EVN" classCode="OBS"> <templateId root="16.840.1.785715.02.09.22.4.2 " /> <id nullFlavor="NA" /> <code codeSystem="local" code="MCV " displayName="MCV" /> <statusCode code="completed" /> < effectiveTime value="841987515674" /> <value unit="fL" xsi:type="PQ" value="100.0" /> <interpretationCode codeSystem="local" code="*" /> <referenceRange> <observationRange> <text>82.0- 99.0</text> </observationRange> </referenceRange> </ observation> </component> <component> <observation moodCode= "EVN" classCode="OBS"> <templateId root="216.840.1.153312.02.09.22.4.2 " /> <id nullFlavor="NA" /> <code codeSystem="local" code= "MONOR" displayName="Monocytes" /> <statusCode code="completed" /> <effectiveTime value="249022625454" /> <value unit="%" xsi: type="PQ" value="6" /> <referenceRange> <observationRange> <text>4-11</text> </observationRange> </ referenceRange> </observation> </component> <component> <observation moodCode="EVN" classCode="OBS"> <templateId root= "2.16.840.1.634250.10..22.4.2" /> <id nullFlavor="NA" /> < code codeSystem="local" code="MPV" displayName="MPV" /> <statusCode code="completed" /> <effectiveTime value="444303701691" /> < value unit="fL" xsi:type="PQ" value="8.7" /> <interpretationCode codeSystem="local" code="*" /> <referenceRange> < observationRange> <text>9.4-12.4</text> </ observationRange> </referenceRange> </observation> </ component> <component> <observation moodCode="EVN" classCode="OBS"> <templateId root="2.16.840.1.053950.10..22.4.2" /> <id nullFlavor="NA" /> <code codeSystem="local" code="SEGR" displayName= "Neutrophils" /> <statusCode code="completed" /> < effectiveTime value="880408708923" /> <value unit="%" xsi:type="PQ " value="70" /> <referenceRange> <observationRange> <text>51-75</text> </observationRange> </ referenceRange> </observation> </component> <component> <observation moodCode="EVN" classCode="OBS"> <templateId root= "216.840.1.309823.10.22.4.2" /> <id nullFlavor="NA" /> < code codeSystem="local" code="NRBCA" displayName="Nucleated RBC Automated" /> <statusCode code="completed" /> <effectiveTime value= "" /> <value unit="/100WBC" xsi:type="PQ" value="0.0" /> <referenceRange> <observationRange> <text /> </observationRange> </referenceRange> </observation> </component> <component> <observation moodCode="EVN" classCode= "OBS"> <templateId root="06.08.840.1.739122...4.2" /> < id nullFlavor="NA" /> <code codeSystem="local" code="PLT" displayName= "Platelet Count" /> <statusCode code="completed" /> < effectiveTime value="" /> <value unit="K/uL" xsi:type="PQ" value="335" /> <referenceRange> <observationRange> <text>150-400</text> </observationRange> </ referenceRange> </observation> </component> <component> <observation moodCode="EVN" classCode="OBS"> <templateId root= "06.08.840.1.476748.10..22.4.2" /> <id nullFlavor="NA" /> < code codeSystem="local" code="RBC" displayName="RBC" /> <statusCode code="completed" /> <effectiveTime value="" /> < value unit="10*6/uL" xsi:type="PQ" value="4.07" /> <referenceRange> <observationRange> <text>4.00-5.20</text> </ observationRange> </referenceRange> </observation> </ component> <component> <observation moodCode="EVN" classCode="OBS"> <templateId root="216.840.1.966539.1022.4.2" /> <id nullFlavor="NA" /> <code codeSystem="local" code="RDW" displayName="RDW " /> <statusCode code="completed" /> <effectiveTime value= "529581717244" /> <value unit="%" xsi:type="PQ" value="12.7" /> <referenceRange> <observationRange> <text>11.5- 14.5</text> </observationRange> </referenceRange> </ observation> </component> <component> <observation moodCode= "EVN" classCode="OBS"> <templateId root="2.840.1.069371.02.09.22.4.2 " /> <id nullFlavor="NA" /> <code codeSystem="local" code= "WBCIR" displayName="WBC" /> <statusCode code="completed" /> < effectiveTime value="419496034570" /> <value unit="K/uL" xsi:type="PQ" value="8.9" /> <referenceRange> <observationRange> <text>4.8-10.8</text> </observationRange> </ referenceRange> </observation> </component> </organizer> </entry > <entry> <organizer moodCode="EVN" classCode="BATTERY"> <templateId root="216.840.1.643332...4.1" /> <id nullFlavor="NA" /> <code codeSystem="local" code="CMP" displayName="Comprehensive Metabolic Panel (CMP)" /> <statusCode code="completed" /> <component> <observation moodCode="EVN" classCode="OBS"> <templateId root= "2.16.840.1.445218.10...4.2" /> <id nullFlavor="NA" /> < code codeSystem="local" code="ALB" displayName="Albumin" /> < statusCode code="completed" /> <effectiveTime value="" /> <value unit="g/dL" xsi:type="PQ" value="5.0" /> < interpretationCode codeSystem="local" code="*" /> <referenceRange> <observationRange> <text>3.5-4.8</text> </ observationRange> </referenceRange> </observation> </ component> <component> <observation moodCode="EVN" classCode="OBS"> <templateId root="216.840.1.032634.02.09.22.4.2" /> <id nullFlavor="NA" /> <code codeSystem="local" code="ALP" displayName= "Alkaline Phosphatase" /> <statusCode code="completed" /> < effectiveTime value="" /> <value unit="U/L" xsi:type="PQ" value="57" /> <referenceRange> <observationRange> <text>26-104</text> </observationRange> </referenceRange > </observation> </component> <component> <observation moodCode="EVN" classCode="OBS"> <templateId root= "2.16.840.1.707460.10..4.2" /> <id nullFlavor="NA" /> < code codeSystem="local" code="ALT" displayName="ALT (SGPT)" /> < statusCode code="completed" /> <effectiveTime value="" /> <value unit="U/L" xsi:type="PQ" value="14" /> <referenceRange > <observationRange> <text>14-54</text> </ observationRange> </referenceRange> </observation> </ component> <component> <observation moodCode="EVN" classCode="OBS"> <templateId root="06.08.840.1.335858.10..22.4.2" /> <id nullFlavor="NA" /> <code codeSystem="local" code="AGAP" displayName= "Anion Gap" /> <statusCode code="completed" /> <effectiveTime value="164373727224" /> <value unit="mEq/L" xsi:type="PQ" value="9" /> <referenceRange> <observationRange> <text>3-20 </text> </observationRange> </referenceRange> </ observation> </component> <component> <observation moodCode= "EVN" classCode="OBS"> <templateId root="06.08.840.1.946943.10...4.2 " /> <id nullFlavor="NA" /> <code codeSystem="local" code="AST " displayName="AST (SGOT)" /> <statusCode code="completed" /> <effectiveTime value="200096248314" /> <value unit="U/L" xsi:type="PQ" value="16" /> <referenceRange> <observationRange> <text>15-41</text> </observationRange> </referenceRange > </observation> </component> <component> <observation moodCode="EVN" classCode="OBS"> <templateId root= "06.08.840.1.502106.10..22.4.2" /> <id nullFlavor="NA" /> < code codeSystem="local" code="BILIT" displayName="Bilirubin Total" /> < statusCode code="completed" /> <effectiveTime value="181673464844" /> <value unit="mg/dL" xsi:type="PQ" value="0.4" /> < referenceRange> <observationRange> <text>0.2-1.2</text> </observationRange> </referenceRange> </observation > </component> <component> <observation moodCode="EVN" classCode="OBS"> <templateId root="06.08.840.1.413876.02.09.22.4.2" /> <id nullFlavor="NA" /> <code codeSystem="local" code="BUN" displayName="BUN" /> <statusCode code="completed" /> < effectiveTime value="122484991742" /> <value unit="mg/dL" xsi:type="PQ " value="12" /> <referenceRange> <observationRange> <text>4-20</text> </observationRange> </referenceRange > </observation> </component> <component> <observation moodCode="EVN" classCode="OBS"> <templateId root= "06.08.840.1.071942.02.09.22.4.2" /> <id nullFlavor="NA" /> < code codeSystem="local" code="CA" displayName="Calcium" /> <statusCode code="completed" /> <effectiveTime value="506775114863" /> < value unit="mg/dL" xsi:type="PQ" value="9.8" /> <referenceRange> <observationRange> <text>8.6-10.0</text> </ observationRange> </referenceRange> </observation> </ component> <component> <observation moodCode="EVN" classCode="OBS"> <templateId root="06.08.840.1.396602.02.09.22.4.2" /> <id nullFlavor="NA" /> <code codeSystem="local" code="CL" displayName= "Chloride" /> <statusCode code="completed" /> <effectiveTime value="632057205353" /> <value unit="mEq/L" xsi:type="PQ" value="105" / > <referenceRange> <observationRange> <text>99- 109</text> </observationRange> </referenceRange> </ observation> </component> <component> <observation moodCode= "EVN" classCode="OBS"> <templateId root="16.840.1.855852.10.20.22.4.2 " /> <id nullFlavor="NA" /> <code codeSystem="local" code="CO2 " displayName="CO2" /> <statusCode code="completed" /> < effectiveTime value="783436998383" /> <value unit="mEq/L" xsi:type="PQ " value="22" /> <referenceRange> <observationRange> <text>22-32</text> </observationRange> </ referenceRange> </observation> </component> <component> <observation moodCode="EVN" classCode="OBS"> <templateId root= "16.840.1.295375.10.20.22.4.2" /> <id nullFlavor="NA" /> < code codeSystem="local" code="CREAT" displayName="Creatinine" /> < statusCode code="completed" /> <effectiveTime value="038260126798" /> <value unit="mg/dL" xsi:type="PQ" value="0.61" /> < referenceRange> <observationRange> <text>0.44-1.03</text > </observationRange> </referenceRange> </observation > </component> <component> <observation moodCode="EVN" classCode="OBS"> <templateId root="16.840.1.990219.10.22.4.2" /> <id nullFlavor="NA" /> <code codeSystem="local" code="GLOB" displayName="Globulin" /> <statusCode code="completed" /> < effectiveTime value="543074149023" /> <value unit="g/dL" xsi:type="PQ" value="3.0" /> <referenceRange> <observationRange> <text>1.9-4.3</text> </observationRange> </ referenceRange> </observation> </component> <component> <observation moodCode="EVN" classCode="OBS"> <templateId root= "16.840.1.097586.02.09.22.4.2" /> <id nullFlavor="NA" /> < code codeSystem="local" code="GLU" displayName="Glucose" /> < statusCode code="completed" /> <effectiveTime value="" /> <value unit="mg/dL" xsi:type="PQ" value="83" /> < referenceRange> <observationRange> <text>70-100</text> </observationRange> </referenceRange> </observation> </component> <component> <observation moodCode="EVN" classCode ="OBS"> <templateId root="16.840.1.599324.10.22.4.2" /> < id nullFlavor="NA" /> <code codeSystem="local" code="K" displayName= "Potassium" /> <statusCode code="completed" /> <effectiveTime value="776354442242" /> <value unit="mEq/L" xsi:type="PQ" value="3.5" / > <interpretationCode codeSystem="local" code="*" /> < referenceRange> <observationRange> <text>3.6-5.1</text> </observationRange> </referenceRange> </observation > </component> <component> <observation moodCode="EVN" classCode="OBS"> <templateId root="16.840.1.676977.10..4.2" /> <id nullFlavor="NA" /> <code codeSystem="local" code="TP" displayName="Protein" /> <statusCode code="completed" /> < effectiveTime value="938069983059" /> <value unit="g/dL" xsi:type="PQ" value="8.0" /> <interpretationCode codeSystem="local" code="*" /> <referenceRange> <observationRange> <text>6.1-7.9</ text> </observationRange> </referenceRange> </ observation> </component> <component> <observation moodCode= "EVN" classCode="OBS"> <templateId root="06.08.840.1.421404.02.09.22.4.2 " /> <id nullFlavor="NA" /> <code codeSystem="local" code="NA " displayName="Sodium" /> <statusCode code="completed" /> < effectiveTime value="349507419583" /> <value unit="mEq/L" xsi:type="PQ " value="136" /> <referenceRange> <observationRange> <text>136-144</text> </observationRange> </ referenceRange> </observation> </component> </organizer> </entry > <entry> <organizer moodCode="EVN" classCode="BATTERY"> <templateId root="16.840.1.180588.10..4.1" /> <id nullFlavor="NA" /> <code codeSystem="local" code="GFR" displayName="eGFR" /> <statusCode code= "completed" /> <component> <observation moodCode="EVN" classCode= "OBS"> <templateId root="06.08.840.1.087130...22.4.2" /> < id nullFlavor="NA" /> <code codeSystem="local" code="GFR" displayName= "eGFR" /> <statusCode code="completed" /> <effectiveTime value ="438682263703" /> <value unit="mL/min" xsi:type="PQ" value=">60" / > <referenceRange> <observationRange> <text>&gt ;60</text> </observationRange> </referenceRange> </ observation> </component> </organizer> </entry> <entry> <organizer moodCode="EVN" classCode="BATTERY"> <templateId root= "06.08.840.1.280618.02.09.22.4.1" /> <id nullFlavor="NA" /> <code codeSystem="local" code="UA" displayName="Urinalysis with reflex microscopic" / > <statusCode code="completed" /> <component> <observation moodCode="EVN" classCode="OBS"> <templateId root= "16.840.1.801558.10..22.4.2" /> <id nullFlavor="NA" /> < code codeSystem="local" code="UAPP" displayName="Appearance" /> < statusCode code="completed" /> <effectiveTime value="087410898780" /> <value unit="NA" xsi:type="PQ" value="Sl Cloudy" /> < referenceRange> <observationRange> <text /> < /observationRange> </referenceRange> </observation> </ component> <component> <observation moodCode="EVN" classCode="OBS"> <templateId root="06.08.840.1.662581.22.4.2" /> <id nullFlavor="NA" /> <code codeSystem="local" code="UBIL" displayName= "Bilirubin" /> <statusCode code="completed" /> <effectiveTime value="668366336440" /> <value unit="NA" xsi:type="PQ" value="Positive " /> <interpretationCode codeSystem="local" code="*" /> < referenceRange> <observationRange> <text>Negative</text > </observationRange> </referenceRange> </observation > </component> <component> <observation moodCode="EVN" classCode="OBS"> <templateId root="2.16.840.1.862717.02.09.22.4.2" /> <id nullFlavor="NA" /> <code codeSystem="local" code="UBLD" displayName="Blood" /> <statusCode code="completed" /> < effectiveTime value="392568712382" /> <value unit="NA" xsi:type="PQ" value="Negative" /> <referenceRange> <observationRange> <text>Negative</text> </observationRange> </ referenceRange> </observation> </component> <component> <observation moodCode="EVN" classCode="OBS"> <templateId root= "2.16.840.1.988174.02.09.22.4.2" /> <id nullFlavor="NA" /> < code codeSystem="local" code="UCOLR" displayName="Color" /> < statusCode code="completed" /> <effectiveTime value="" /> <value unit="NA" xsi:type="PQ" value="Yellow" /> < referenceRange> <observationRange> <text /> < /observationRange> </referenceRange> </observation> </ component> <component> <observation moodCode="EVN" classCode="OBS"> <templateId root="16.840.1.999555.10..4.2" /> <id nullFlavor="NA" /> <code codeSystem="local" code="UGLU" displayName= "Glucose, Urine" /> <statusCode code="completed" /> < effectiveTime value="" /> <value unit="" xsi:type="PQ" value="Negative" /> <referenceRange> <observationRange> <text>Negative</text> </observationRange> </ referenceRange> </observation> </component> <component> <observation moodCode="EVN" classCode="OBS"> <templateId root= "16.840.1.576947.02.09.22.4.2" /> <id nullFlavor="NA" /> < code codeSystem="local" code="UKET" displayName="Ketones" /> < statusCode code="completed" /> <effectiveTime value="" /> <value unit="" xsi:type="PQ" value="Negative" /> < referenceRange> <observationRange> <text>Negative</text > </observationRange> </referenceRange> </observation > </component> <component> <observation moodCode="EVN" classCode="OBS"> <templateId root="06.08.840.1.804615.10..4.2" /> <id nullFlavor="NA" /> <code codeSystem="local" code="ULEU" displayName="Leukocyte Esterase" /> <statusCode code="completed" /> <effectiveTime value="" /> <value unit="NA" xsi:type ="PQ" value="Negative" /> <referenceRange> <observationRange > <text>Negative</text> </observationRange> </ referenceRange> </observation> </component> <component> <observation moodCode="EVN" classCode="OBS"> <templateId root= "06.08.840.1.650769.10.4.2" /> <id nullFlavor="NA" /> < code codeSystem="local" code="UNIT" displayName="Nitrites" /> < statusCode code="completed" /> <effectiveTime value="" /> <value unit="NA" xsi:type="PQ" value="Negative" /> < referenceRange> <observationRange> <text>Negative</text > </observationRange> </referenceRange> </observation > </component> <component> <observation moodCode="EVN" classCode="OBS"> <templateId root="840.1.189003.02.09.22.4.2" /> <id nullFlavor="NA" /> <code codeSystem="local" code="UPH" displayName="pH" /> <statusCode code="completed" /> < effectiveTime value="" /> <value unit="NA" xsi:type="PQ" value="5.5" /> <referenceRange> <observationRange> <text>5.0-8.0</text> </observationRange> </ referenceRange> </observation> </component> <component> <observation moodCode="EVN" classCode="OBS"> <templateId root= "06.08.840.1.906151.10.4.2" /> <id nullFlavor="NA" /> < code codeSystem="local" code="UPRO" displayName="Protein" /> < statusCode code="completed" /> <effectiveTime value="" /> <value unit="NA" xsi:type="PQ" value="Trace" /> < interpretationCode codeSystem="local" code="*" /> <referenceRange> <observationRange> <text>Negative</text> </ observationRange> </referenceRange> </observation> </ component> <component> <observation moodCode="EVN" classCode="OBS"> <templateId root="216.840.1.743863.10..4.2" /> <id nullFlavor="NA" /> <code codeSystem="local" code="USPG" displayName= "Specific Diboll" /> <statusCode code="completed" /> < effectiveTime value="279765706098" /> <value unit="NA" xsi:type="PQ" value="1.015" /> <referenceRange> <observationRange> <text>1.003-1.030</text> </observationRange> </ referenceRange> </observation> </component> <component> <observation moodCode="EVN" classCode="OBS"> <templateId root= "16.840.1.615507.02.09.22.4.2" /> <id nullFlavor="NA" /> < code codeSystem="local" code="UTYP" displayName="UA Collection type" /> <statusCode code="completed" /> <effectiveTime value="092024464086" / > <value unit="NA" xsi:type="PQ" value="Clean Catch" /> < referenceRange> <observationRange> <text /> < /observationRange> </referenceRange> </observation> </ component> <component> <observation moodCode="EVN" classCode="OBS"> <templateId root="16.840.1.045710.02.09.22.4.2" /> <id nullFlavor="NA" /> <code codeSystem="local" code="UURO" displayName= "Urobilinogen" /> <statusCode code="completed" /> < effectiveTime value="679567820380" /> <value unit="mg/dL" xsi:type="PQ " value="0.2" /> <referenceRange> <observationRange> <text><1.0</text> </observationRange> </ referenceRange> </observation> </component> </organizer> </entry > <entry> <organizer moodCode="EVN" classCode="BATTERY"> <templateId root="06.08.840.1.683606.10.4.1" /> <id nullFlavor="NA" /> <code codeSystem="local" code="CBCD" displayName="CBC W/DIFF" /> <statusCode code ="completed" /> <component> <observation moodCode="EVN" classCode= "OBS"> <templateId root="06.08.840.1.627473.02.09.22.4.2" /> < id nullFlavor="NA" /> <code codeSystem="local" code="BA#" displayName= "BASOPHIL #" /> <statusCode code="completed" /> < effectiveTime value="327925036388" /> <value unit="k/cumm" xsi:type="PQ " value="0.0" /> <referenceRange> <observationRange> <text>0.0-0.2</text> </observationRange> </ referenceRange> </observation> </component> <component> <observation moodCode="EVN" classCode="OBS"> <templateId root= "06.08.840.1.298472.10.4.2" /> <id nullFlavor="NA" /> < code codeSystem="local" code="BA%" displayName="BASOPHIL %" /> <statusCode code="completed" /> <effectiveTime value="667220574033" /> <value unit="%" xsi:type="PQ" value="0.1" /> < referenceRange> <observationRange> <text>0-1</text> </observationRange> </referenceRange> </observation> </component> <component> <observation moodCode="EVN" classCode= "OBS"> <templateId root="16.840.1.095423.10..22.4.2" /> < id nullFlavor="NA" /> <code codeSystem="local" code="EO#" displayName= "EOSINOPHIL #" /> <statusCode code="completed" /> < effectiveTime value="420263914532" /> <value unit="k/cumm" xsi:type="PQ " value="0.1" /> <referenceRange> <observationRange> <text>0.1-0.5</text> </observationRange> </ referenceRange> </observation> </component> <component> <observation moodCode="EVN" classCode="OBS"> <templateId root= "16.840.1.064785.10...4.2" /> <id nullFlavor="NA" /> < code codeSystem="local" code="EO%" displayName="EOSINOPHIL %" /> <statusCode code="completed" /> <effectiveTime value="148881265229" /> <value unit="%" xsi:type="PQ" value="1.6" /> < interpretationCode codeSystem="local" code="*" /> <referenceRange> <observationRange> <text>2-4</text> </ observationRange> </referenceRange> </observation> </ component> <component> <observation moodCode="EVN" classCode="OBS"> <templateId root="16.840.1.174624.10..22.4.2" /> <id nullFlavor="NA" /> <code codeSystem="local" code="GR#" displayName= "GRANULOCYTE #" /> <statusCode code="completed" /> < effectiveTime value="806037550454" /> <value unit="k/cumm" xsi:type="PQ " value="3.1" /> <referenceRange> <observationRange> <text>2.0-9.0</text> </observationRange> </ referenceRange> </observation> </component> <component> <observation moodCode="EVN" classCode="OBS"> <templateId root= "216.840.1.982629.10..22.4.2" /> <id nullFlavor="NA" /> < code codeSystem="local" code="GR%" displayName="GRANULOCYTE %" /> <statusCode code="completed" /> <effectiveTime value="311655727798 " /> <value unit="%" xsi:type="PQ" value="40.8" /> < interpretationCode codeSystem="local" code="*" /> <referenceRange> <observationRange> <text>50-75</text> </ observationRange> </referenceRange> </observation> </ component> <component> <observation moodCode="EVN" classCode="OBS"> <templateId root="216.840.1.301098.10.22.4.2" /> <id nullFlavor="NA" /> <code codeSystem="local" code="LY#" displayName= "LYMPHOCYTE #" /> <statusCode code="completed" /> < effectiveTime value="869593187058" /> <value unit="k/cumm" xsi:type="PQ " value="3.6" /> <referenceRange> <observationRange> <text>1.0-4.0</text> </observationRange> </ referenceRange> </observation> </component> <component> <observation moodCode="EVN" classCode="OBS"> <templateId root= "06.08.840.1.286826.02.09.22.4.2" /> <id nullFlavor="NA" /> < code codeSystem="local" code="LY%" displayName="LYMPHOCYTE %" /> <statusCode code="completed" /> <effectiveTime value="[id number]" /> <value unit="%" xsi:type="PQ" value="47.6" /> < interpretationCode codeSystem="local" code="*" /> <referenceRange> <observationRange> <text>20-30</text> </ observationRange> </referenceRange> </observation> </ component> <component> <observation moodCode="EVN" classCode="OBS"> <templateId root="06.08.840.1.466630.02.09.224.2" /> <id nullFlavor="NA" /> <code codeSystem="local" code="MCH" displayName= "MEAN CELL HGB" /> <statusCode code="completed" /> < effectiveTime value="[id number]" /> <value unit="pg" xsi:type="PQ" value="33.9" /> <interpretationCode codeSystem="local" code="*" /> <referenceRange> <observationRange> <text>27.0- 33.0</text> </observationRange> </referenceRange> </ observation> </component> <component> <observation moodCode= "EVN" classCode="OBS"> <templateId root="06.08.840.1.438407.02.09.22.4.2 " /> <id nullFlavor="NA" /> <code codeSystem="local" code= "[facility]" displayName="MEAN CELL HGB CONCENTRATION" /> <statusCode code= "completed" /> <effectiveTime value="467903475297" /> <value unit="g/dL" xsi:type="PQ" value="32.5" /> <referenceRange> < observationRange> <text>32.0-37.0</text> </ observationRange> </referenceRange> </observation> </ component> <component> <observation moodCode="EVN" classCode="OBS"> <templateId root="06.08.840.1.958906.1022.4.2" /> <id nullFlavor="NA" /> <code codeSystem="local" code="MCV" displayName= "MEAN CELL VOLUME" /> <statusCode code="completed" /> < effectiveTime value="320267586068" /> <value unit="fl" xsi:type="PQ" value="104.1" /> <interpretationCode codeSystem="local" code="*" /> <referenceRange> <observationRange> <text>80.0- 100.0</text> </observationRange> </referenceRange> </ observation> </component> <component> <observation moodCode= "EVN" classCode="OBS"> <templateId root="16.840.1.681485.10.20.22.4.2 " /> <id nullFlavor="NA" /> <code codeSystem="local" code="MO# " displayName="MONOCYTE #" /> <statusCode code="completed" /> <effectiveTime value="445906874654" /> <value unit="k/cumm" xsi:type= "PQ" value="0.8" /> <referenceRange> <observationRange> <text>0.1-1.0</text> </observationRange> </ referenceRange> </observation> </component> <component> <observation moodCode="EVN" classCode="OBS"> <templateId root= "06.08.840.1.123108.10.2022.4.2" /> <id nullFlavor="NA" /> < code codeSystem="local" code="MO%" displayName="MONOCYTE %" /> <statusCode code="completed" /> <effectiveTime value="967921759091" /> <value unit="%" xsi:type="PQ" value="9.9" /> < interpretationCode codeSystem="local" code="*" /> <referenceRange> <observationRange> <text>4-6</text> </ observationRange> </referenceRange> </observation> </ component> <component> <observation moodCode="EVN" classCode="OBS"> <templateId root="06.08.840.1.482139.102022.4.2" /> <id nullFlavor="NA" /> <code codeSystem="local" code="RBC" displayName=" RED BLOOD CELL" /> <statusCode code="completed" /> < effectiveTime value="096290522327" /> <value unit="m/cumm" xsi:type="PQ " value="3.63" /> <interpretationCode codeSystem="local" code="*" /> <referenceRange> <observationRange> <text>4.00- 6.00</text> </observationRange> </referenceRange> </ observation> </component> <component> <observation moodCode= "EVN" classCode="OBS"> <templateId root="06.08.840.1.335112.10.20.22.4.2 " /> <id nullFlavor="NA" /> <code codeSystem="local" code="RDW " displayName="RED CELL DISTRIBUTION WIDTH" /> <statusCode code= "completed" /> <effectiveTime value="677901047856" /> <value unit="%" xsi:type="PQ" value="12.4" /> <referenceRange> <observationRange> <text>11.0-15.6</text> </ observationRange> </referenceRange> </observation> </ component> <component> <observation moodCode="EVN" classCode="OBS"> <templateId root="216.840.1.231896.10.20.22.4.2" /> <id nullFlavor="NA" /> <code codeSystem="local" code="WBC" displayName= "WHITE BLOOD CELL" /> <statusCode code="completed" /> < effectiveTime value="229636758589" /> <value unit="k/cumm" xsi:type="PQ " value="7.7" /> <referenceRange> <observationRange> <text>5.0-10.0</text> </observationRange> </ referenceRange> </observation> </component> <component> <observation moodCode="EVN" classCode="OBS"> <templateId root= "16.840.1.665591.10..22.4.2" /> <id nullFlavor="NA" /> < code codeSystem="local" code="HGBT" displayName="HEMOGLOBIN" /> < statusCode code="completed" /> <effectiveTime value="735559072768" /> <value unit="gm/dL" xsi:type="PQ" value="12.3" /> < referenceRange> <observationRange> <text>12.0-16.0</text > </observationRange> </referenceRange> </observation > </component> <component> <observation moodCode="EVN" classCode="OBS"> <templateId root="216.840.1.084120.10.20.22.4.2" /> <id nullFlavor="NA" /> <code codeSystem="local" code="HCTT" displayName="HEMATOCRIT" /> <statusCode code="completed" /> < effectiveTime value="809250876715" /> <value unit="%" xsi:type="PQ " value="37.8" /> <referenceRange> <observationRange> <text>37.0-47.0</text> </observationRange> </ referenceRange> </observation> </component> <component> <observation moodCode="EVN" classCode="OBS"> <templateId root= "16.840.1.342645.10..4.2" /> <id nullFlavor="NA" /> < code codeSystem="local" code="PLTT" displayName="PLATELET COUNT" /> < statusCode code="completed" /> <effectiveTime value="567885628063" /> <value unit="k/cumm" xsi:type="PQ" value="334" /> < referenceRange> <observationRange> <text>150-450</text> </observationRange> </referenceRange> </observation > </component> </organizer> </entry> <entry> <organizer moodCode= "EVN" classCode="BATTERY"> <templateId root="06.08.840.1.892771.10..4.1 " /> <id nullFlavor="NA" /> <code codeSystem="local" code="DIMER" displayName="D-DIMER QUANT" /> <statusCode code="completed" /> < component> <observation moodCode="EVN" classCode="OBS"> < templateId root="06.08.840.1.866105.10..22.4.2" /> <id nullFlavor="NA " /> <code codeSystem="local" code="DIMER" displayName="D-DIMER QUANT" /> <statusCode code="completed" /> <effectiveTime value= "871326834361" /> <value unit="ng/mL" xsi:type="PQ" value="308" /> <referenceRange> <observationRange> <text>< 500 </text> </observationRange> </referenceRange> </ observation> </component> </organizer> </entry> <entry> <organizer moodCode="EVN" classCode="BATTERY"> <templateId root= "06.08.840.1.297044.1022.4.1" /> <id nullFlavor="NA" /> <code codeSystem="local" code="METABC" displayName="METABOLIC PANEL, COMPREHN" /> <statusCode code="completed" /> <component> <observation moodCode= "EVN" classCode="OBS"> <templateId root="06.08.840.1.817400.10...4.2 " /> <id nullFlavor="NA" /> <code codeSystem="local" code="K" displayName="POTASSIUM" /> <statusCode code="completed" /> < effectiveTime value="" /> <value unit="mmol/L" xsi:type="PQ " value="4.4" /> <referenceRange> <observationRange> <text>3.5-5.3</text> </observationRange> </ referenceRange> </observation> </component> <component> <observation moodCode="EVN" classCode="OBS"> <templateId root= "840.1.690968.10.22.4.2" /> <id nullFlavor="NA" /> < code codeSystem="local" code="eGFR" displayName="EST GFR (MDRD)" /> < statusCode code="completed" /> <effectiveTime value="" /> <value unit="mL/min" xsi:type="PQ" value="> 60" /> < referenceRange> <observationRange> <text>> 59</text> </observationRange> </referenceRange> </observation > </component> <component> <observation moodCode="EVN" classCode="OBS"> <templateId root="216.840.1.274972.10...4.2" /> <id nullFlavor="NA" /> <code codeSystem="local" code="GAP" displayName="ANION GAP" /> <statusCode code="completed" /> < effectiveTime value="" /> <value unit="mmol/L" xsi:type="PQ " value="9" /> <referenceRange> <observationRange> <text>5-15</text> </observationRange> </referenceRange > </observation> </component> <component> <observation moodCode="EVN" classCode="OBS"> <templateId root= "06.08.840.1.409949.10.4.2" /> <id nullFlavor="NA" /> < code codeSystem="local" code="eCrCl" displayName="EST CrCl (CG)" /> < statusCode code="completed" /> <effectiveTime value="" /> <value unit="mL/min" xsi:type="PQ" value="> 60" /> < referenceRange> <observationRange> <text>> 59</text> </observationRange> </referenceRange> </observation > </component> <component> <observation moodCode="EVN" classCode="OBS"> <templateId root="06.08.840.1.606427.10..4.2" /> <id nullFlavor="NA" /> <code codeSystem="local" code="GLU" displayName="GLUCOSE" /> <statusCode code="completed" /> < effectiveTime value="" /> <value unit="mg/dL" xsi:type="PQ " value="101" /> <interpretationCode codeSystem="local" code="*" /> <referenceRange> <observationRange> <text>70-99</ text> </observationRange> </referenceRange> </ observation> </component> <component> <observation moodCode= "EVN" classCode="OBS"> <templateId root="06.08.840.1.444154.02.09.22.4.2 " /> <id nullFlavor="NA" /> <code codeSystem="local" code="CA " displayName="CALCIUM" /> <statusCode code="completed" /> < effectiveTime value="" /> <value unit="mg/dL" xsi:type="PQ " value="9.2" /> <referenceRange> <observationRange> <text>8.5-10.1</text> </observationRange> </ referenceRange> </observation> </component> <component> <observation moodCode="EVN" classCode="OBS"> <templateId root= "06.08.840.1.644907.02.09.22.4.2" /> <id nullFlavor="NA" /> < code codeSystem="local" code="BUN" displayName="BLOOD UREA NITROGEN" /> <statusCode code="completed" /> <effectiveTime value="" / > <value unit="mg/dL" xsi:type="PQ" value="15" /> < referenceRange> <observationRange> <text>7-20</text> </observationRange> </referenceRange> </observation> </component> <component> <observation moodCode="EVN" classCode= "OBS"> <templateId root="06.08.840.1.689420.02.09.22.4.2" /> < id nullFlavor="NA" /> <code codeSystem="local" code="CREAT" displayName ="CREATININE" /> <statusCode code="completed" /> < effectiveTime value="" /> <value unit="mg/dL" xsi:type="PQ " value="0.7" /> <referenceRange> <observationRange> <text>0.6-1.0</text> </observationRange> </ referenceRange> </observation> </component> <component> <observation moodCode="EVN" classCode="OBS"> <templateId root= "216.840.1.373692.10..22.4.2" /> <id nullFlavor="NA" /> < code codeSystem="local" code="NA" displayName="SODIUM" /> <statusCode code="completed" /> <effectiveTime value="" /> < value unit="mmol/L" xsi:type="PQ" value="143" /> <referenceRange> <observationRange> <text>135-148</text> </ observationRange> </referenceRange> </observation> </ component> <component> <observation moodCode="EVN" classCode="OBS"> <templateId root="16.840.1.726560.10..22.4.2" /> <id nullFlavor="NA" /> <code codeSystem="local" code="CL" displayName= "CHLORIDE" /> <statusCode code="completed" /> <effectiveTime value="" /> <value unit="mmol/L" xsi:type="PQ" value="109" /> <referenceRange> <observationRange> <text>98 -110</text> </observationRange> </referenceRange> </ observation> </component> <component> <observation moodCode= "EVN" classCode="OBS"> <templateId root="2.16.840.1.937658.10..22.4.2 " /> <id nullFlavor="NA" /> <code codeSystem="local" code="AST " displayName="AST/SGOT" /> <statusCode code="completed" /> < effectiveTime value="" /> <value unit="Units/L" xsi:type= "PQ" value="12" /> <referenceRange> <observationRange> <text>10-37</text> </observationRange> </ referenceRange> </observation> </component> <component> <observation moodCode="EVN" classCode="OBS"> <templateId root= "216.840.1.774115.10..4.2" /> <id nullFlavor="NA" /> < code codeSystem="local" code="ALT" displayName="ALT/SGPT" /> < statusCode code="completed" /> <effectiveTime value="" /> <value unit="Units/L" xsi:type="PQ" value="20" /> < referenceRange> <observationRange> <text>< 66</text> </observationRange> </referenceRange> </observation > </component> <component> <observation moodCode="EVN" classCode="OBS"> <templateId root="216.840.1.972849.10..4.2" /> <id nullFlavor="NA" /> <code codeSystem="local" code="CO2" displayName="CARBON DIOXIDE" /> <statusCode code="completed" /> <effectiveTime value="" /> <value unit="mmol/L" xsi:type ="PQ" value="25" /> <referenceRange> <observationRange> <text>21-32</text> </observationRange> </ referenceRange> </observation> </component> <component> <observation moodCode="EVN" classCode="OBS"> <templateId root= "06.08.840.1.419256.10.4.2" /> <id nullFlavor="NA" /> < code codeSystem="local" code="TP" displayName="TOTAL PROTEIN" /> < statusCode code="completed" /> <effectiveTime value="" /> <value unit="gm/dL" xsi:type="PQ" value="7.7" /> < referenceRange> <observationRange> <text>6.4-8.2</text> </observationRange> </referenceRange> </observation > </component> <component> <observation moodCode="EVN" classCode="OBS"> <templateId root="06.08.840.1.734183.02.09.22.4.2" /> <id nullFlavor="NA" /> <code codeSystem="local" code="ALB" displayName="ALBUMIN" /> <statusCode code="completed" /> < effectiveTime value="" /> <value unit="gm/dL" xsi:type="PQ " value="4.0" /> <referenceRange> <observationRange> <text>3.4-5.0</text> </observationRange> </ referenceRange> </observation> </component> <component> <observation moodCode="EVN" classCode="OBS"> <templateId root= "06.08.840.1.089173..22.4.2" /> <id nullFlavor="NA" /> < code codeSystem="local" code="BILTOT" displayName="BILI TOTAL" /> < statusCode code="completed" /> <effectiveTime value="" /> <value unit="mg/dL" xsi:type="PQ" value="0.2" /> < referenceRange> <observationRange> <text>0.0-1.0</text> </observationRange> </referenceRange> </observation > </component> <component> <observation moodCode="EVN" classCode="OBS"> <templateId root="16.840.1.702032.10.20.22.4.2" /> <id nullFlavor="NA" /> <code codeSystem="local" code="ALKP" displayName="ALKALINE PHOSPHATASE TOTAL" /> <statusCode code="completed " /> <effectiveTime value="147010173783" /> <value unit="IU/L " xsi:type="PQ" value="63" /> <referenceRange> < observationRange> <text>45-117</text> </observationRange > </referenceRange> </observation> </component> </ organizer> </entry> <entry> <organizer moodCode="EVN" classCode="BATTERY"> <templateId root="06.08.840.1.099972.10..22.4.1" /> <id nullFlavor= "NA" /> <code codeSystem="local" code="PREGN" displayName=" Screen , Urine NPT" /> <statusCode code="completed" /> <component> < observation moodCode="EVN" classCode="OBS"> <templateId root= "06.08.840.1.458588.10..22.4.2" /> <id nullFlavor="NA" /> < code codeSystem="local" code="PREGN" displayName=" Screen, Urine NPT" / > <statusCode code="completed" /> <effectiveTime value= "410061849621" /> <value unit="NA" xsi:type="PQ" value="Negative" /> <referenceRange> <observationRange> <text /> </observationRange> </referenceRange> </observation> </component> </organizer> </entry> <entry> <organizer moodCode="EVN " classCode="BATTERY"> <templateId root="2.16.840.1.260962.10..4.1" / > <id nullFlavor="NA" /> <code codeSystem="local" code="CBCD" displayName="CBC W/DIFF" /> <statusCode code="completed" /> <component > <observation moodCode="EVN" classCode="OBS"> <templateId root= "2.16.840.1.361051.10...4.2" /> <id nullFlavor="NA" /> < code codeSystem="local" code="BA#" displayName="BASOPHIL #" /> < statusCode code="completed" /> <effectiveTime value="384843315615" /> <value unit="k/cumm" xsi:type="PQ" value="0.0" /> < referenceRange> <observationRange> <text>0.0-0.2</text> </observationRange> </referenceRange> </observation > </component> <component> <observation moodCode="EVN" classCode="OBS"> <templateId root="2.16.840.1.150158.10...4.2" /> <id nullFlavor="NA" /> <code codeSystem="local" code="BA% " displayName="BASOPHIL %" /> <statusCode code="completed" /> <effectiveTime value="318491938137" /> <value unit="%" xsi: type="PQ" value="0.1" /> <referenceRange> <observationRange > <text>0-1</text> </observationRange> </ referenceRange> </observation> </component> <component> <observation moodCode="EVN" classCode="OBS"> <templateId root= "16.840.1.263037.10..4.2" /> <id nullFlavor="NA" /> < code codeSystem="local" code="CBCCOM" displayName="COMMENT" /> < statusCode code="completed" /> <effectiveTime value="" /> <value unit="" xsi:type="PQ" value="REVIEWED" /> < referenceRange> <observationRange> <text /> < /observationRange> </referenceRange> </observation> </ component> <component> <observation moodCode="EVN" classCode="OBS"> <templateId root="06.08.840.1.941425.02.09.224.2" /> <id nullFlavor="NA" /> <code codeSystem="local" code="EO#" displayName= "EOSINOPHIL #" /> <statusCode code="completed" /> < effectiveTime value="" /> <value unit="k/cumm" xsi:type="PQ " value="0.0" /> <interpretationCode codeSystem="local" code="*" /> <referenceRange> <observationRange> <text>0.1-0.5 </text> </observationRange> </referenceRange> </ observation> </component> <component> <observation moodCode= "EVN" classCode="OBS"> <templateId root="06.08.840.1.112366.10.4.2 " /> <id nullFlavor="NA" /> <code codeSystem="local" code="EO& #37;" displayName="EOSINOPHIL %" /> <statusCode code="completed" / > <effectiveTime value="511231345855" /> <value unit="%" xsi:type="PQ" value="0.0" /> <interpretationCode codeSystem="local" code="*" /> <referenceRange> <observationRange> <text>2-4</text> </observationRange> </referenceRange> </observation> </component> <component> <observation moodCode="EVN" classCode="OBS"> <templateId root= "216.840.1.157294.10.20.22.4.2" /> <id nullFlavor="NA" /> < code codeSystem="local" code="GR#" displayName="GRANULOCYTE #" /> < statusCode code="completed" /> <effectiveTime value="261646886031" /> <value unit="k/cumm" xsi:type="PQ" value="7.5" /> < referenceRange> <observationRange> <text>2.0-9.0</text> </observationRange> </referenceRange> </observation > </component> <component> <observation moodCode="EVN" classCode="OBS"> <templateId root="06.08.840.1.680335.10...4.2" /> <id nullFlavor="NA" /> <code codeSystem="local" code="GR% " displayName="GRANULOCYTE %" /> <statusCode code="completed" /> <effectiveTime value="206428107232" /> <value unit="%" xsi: type="PQ" value="85.1" /> <interpretationCode codeSystem="local" code= "*" /> <referenceRange> <observationRange> < text>50-75</text> </observationRange> </referenceRange> </observation> </component> <component> <observation moodCode="EVN" classCode="OBS"> <templateId root= "216.840.1.903830.10..22.4.2" /> <id nullFlavor="NA" /> < code codeSystem="local" code="LY#" displayName="LYMPHOCYTE #" /> < statusCode code="completed" /> <effectiveTime value="422585352034" /> <value unit="k/cumm" xsi:type="PQ" value="1.1" /> < referenceRange> <observationRange> <text>1.0-4.0</text> </observationRange> </referenceRange> </observation > </component> <component> <observation moodCode="EVN" classCode="OBS"> <templateId root="2.16.840.1.962625.10..4.2" /> <id nullFlavor="NA" /> <code codeSystem="local" code="LY% " displayName="LYMPHOCYTE %" /> <statusCode code="completed" /> <effectiveTime value="526226764177" /> <value unit="%" xsi: type="PQ" value="13.0" /> <interpretationCode codeSystem="local" code= "*" /> <referenceRange> <observationRange> < text>20-30</text> </observationRange> </referenceRange> </observation> </component> <component> <observation moodCode="EVN" classCode="OBS"> <templateId root= "216.840.1.802523.1022.4.2" /> <id nullFlavor="NA" /> < code codeSystem="local" code="MCH" displayName="MEAN CELL HGB" /> < statusCode code="completed" /> <effectiveTime value="823246373018" /> <value unit="pg" xsi:type="PQ" value="33.5" /> < interpretationCode codeSystem="local" code="*" /> <referenceRange> <observationRange> <text>27.0-33.0</text> </ observationRange> </referenceRange> </observation> </ component> <component> <observation moodCode="EVN" classCode="OBS"> <templateId root="16.840.1.605169.10.2022.4.2" /> <id nullFlavor="NA" /> <code codeSystem="local" code="MCHC" displayName= "MEAN CELL HGB CONCENTRATION" /> <statusCode code="completed" /> <effectiveTime value="591727578145" /> <value unit="g/dL" xsi:type= "PQ" value="32.7" /> <referenceRange> <observationRange> <text>32.0-37.0</text> </observationRange> </ referenceRange> </observation> </component> <component> <observation moodCode="EVN" classCode="OBS"> <templateId root= "06.08.840.1.026530.02.09.224.2" /> <id nullFlavor="NA" /> < code codeSystem="local" code="MCV" displayName="MEAN CELL VOLUME" /> < statusCode code="completed" /> <effectiveTime value="544522668915" /> <value unit="fl" xsi:type="PQ" value="102.5" /> < interpretationCode codeSystem="local" code="*" /> <referenceRange> <observationRange> <text>80.0-100.0</text> </ observationRange> </referenceRange> </observation> </ component> <component> <observation moodCode="EVN" classCode="OBS"> <templateId root="06.08.840.1.982224.02.09.22.4.2" /> <id nullFlavor="NA" /> <code codeSystem="local" code="MO#" displayName= "MONOCYTE #" /> <statusCode code="completed" /> < effectiveTime value="513680351420" /> <value unit="k/cumm" xsi:type="PQ " value="0.2" /> <referenceRange> <observationRange> <text>0.1-1.0</text> </observationRange> </ referenceRange> </observation> </component> <component> <observation moodCode="EVN" classCode="OBS"> <templateId root= "06.08.840.1.277409.10.22.4.2" /> <id nullFlavor="NA" /> < code codeSystem="local" code="MO%" displayName="MONOCYTE %" /> <statusCode code="completed" /> <effectiveTime value="465280214409" /> <value unit="%" xsi:type="PQ" value="1.8" /> < interpretationCode codeSystem="local" code="*" /> <referenceRange> <observationRange> <text>4-6</text> </ observationRange> </referenceRange> </observation> </ component> <component> <observation moodCode="EVN" classCode="OBS"> <templateId root="06.08.840.1.615835.10..22.4.2" /> <id nullFlavor="NA" /> <code codeSystem="local" code="RBC" displayName=" RED BLOOD CELL" /> <statusCode code="completed" /> < effectiveTime value="070570543828" /> <value unit="m/cumm" xsi:type="PQ " value="4.03" /> <referenceRange> <observationRange> <text>4.00-6.00</text> </observationRange> </ referenceRange> </observation> </component> <component> <observation moodCode="EVN" classCode="OBS"> <templateId root= "840.1.804047.10..22.4.2" /> <id nullFlavor="NA" /> < code codeSystem="local" code="RDW" displayName="RED CELL DISTRIBUTION WIDTH" /> <statusCode code="completed" /> <effectiveTime value= "504767428356" /> <value unit="%" xsi:type="PQ" value="12.7" /> <referenceRange> <observationRange> <text>11.0- 15.6</text> </observationRange> </referenceRange> </ observation> </component> <component> <observation moodCode= "EVN" classCode="OBS"> <templateId root="16.840.1.426254.10..4.2 " /> <id nullFlavor="NA" /> <code codeSystem="local" code="WBC " displayName="WHITE BLOOD CELL" /> <statusCode code="completed" /> <effectiveTime value="659471197015" /> <value unit="k/cumm" xsi: type="PQ" value="8.8" /> <referenceRange> <observationRange > <text>5.0-10.0</text> </observationRange> </ referenceRange> </observation> </component> <component> <observation moodCode="EVN" classCode="OBS"> <templateId root= "06.08.840.1.663316.10...4.2" /> <id nullFlavor="NA" /> < code codeSystem="local" code="HGBT" displayName="HEMOGLOBIN" /> < statusCode code="completed" /> <effectiveTime value="943066703679" /> <value unit="gm/dL" xsi:type="PQ" value="13.5" /> < referenceRange> <observationRange> <text>12.0-16.0</text > </observationRange> </referenceRange> </observation > </component> <component> <observation moodCode="EVN" classCode="OBS"> <templateId root="216.840.1.602495.10..22.4.2" /> <id nullFlavor="NA" /> <code codeSystem="local" code="HCTT" displayName="HEMATOCRIT" /> <statusCode code="completed" /> < effectiveTime value="967856443518" /> <value unit="%" xsi:type="PQ " value="41.3" /> <referenceRange> <observationRange> <text>37.0-47.0</text> </observationRange> </ referenceRange> </observation> </component> <component> <observation moodCode="EVN" classCode="OBS"> <templateId root= "216.840.1.876481.02.09.22.4.2" /> <id nullFlavor="NA" /> < code codeSystem="local" code="PLTT" displayName="PLATELET COUNT" /> < statusCode code="completed" /> <effectiveTime value="681399203651" /> <value unit="k/cumm" xsi:type="PQ" value="490" /> < interpretationCode codeSystem="local" code="*" /> <referenceRange> <observationRange> <text>150-450</text> </ observationRange> </referenceRange> </observation> </ component> </organizer> </entry> <entry> <organizer moodCode="EVN" classCode="BATTERY"> <templateId root="216.840.1.838311.10..4.1" /> <id nullFlavor="NA" /> <code codeSystem="local" code="METABC" displayName="METABOLIC PANEL, COMPREHN" /> <statusCode code="completed" /> <component> <observation moodCode="EVN" classCode="OBS"> < templateId root="16.840.1.692684.10..4.2" /> <id nullFlavor="NA " /> <code codeSystem="local" code="K" displayName="POTASSIUM" /> <statusCode code="completed" /> <effectiveTime value="317908128053 " /> <value unit="mmol/L" xsi:type="PQ" value="3.7" /> < referenceRange> <observationRange> <text>3.5-5.3</text> </observationRange> </referenceRange> </observation > </component> <component> <observation moodCode="EVN" classCode="OBS"> <templateId root="06.08.840.1.425253.02.09.22.4.2" /> <id nullFlavor="NA" /> <code codeSystem="local" code="eGFR" displayName="EST GFR (MDRD)" /> <statusCode code="completed" /> <effectiveTime value="737801595889" /> <value unit="mL/min" xsi:type ="PQ" value="> 60" /> <referenceRange> <observationRange > <text>> 59</text> </observationRange> </ referenceRange> </observation> </component> <component> <observation moodCode="EVN" classCode="OBS"> <templateId root= "16.840.1.009076.10...4.2" /> <id nullFlavor="NA" /> < code codeSystem="local" code="GAP" displayName="ANION GAP" /> < statusCode code="completed" /> <effectiveTime value="585764805849" /> <value unit="mmol/L" xsi:type="PQ" value="13" /> < referenceRange> <observationRange> <text>5-15</text> </observationRange> </referenceRange> </observation> </component> <component> <observation moodCode="EVN" classCode= "OBS"> <templateId root="06.08.840.1.891370.10.20.22.4.2" /> < id nullFlavor="NA" /> <code codeSystem="local" code="eCrCl" displayName ="EST CrCl (CG)" /> <statusCode code="completed" /> < effectiveTime value="816808387306" /> <value unit="mL/min" xsi:type="PQ " value="> 60" /> <referenceRange> <observationRange> <text>> 59</text> </observationRange> </ referenceRange> </observation> </component> <component> <observation moodCode="EVN" classCode="OBS"> <templateId root= "840.1.411814.10..4.2" /> <id nullFlavor="NA" /> < code codeSystem="local" code="GLU" displayName="GLUCOSE" /> < statusCode code="completed" /> <effectiveTime value="413415594893" /> <value unit="mg/dL" xsi:type="PQ" value="125" /> < interpretationCode codeSystem="local" code="*" /> <referenceRange> <observationRange> <text>70-99</text> </ observationRange> </referenceRange> </observation> </ component> <component> <observation moodCode="EVN" classCode="OBS"> <templateId root="06.08.840.1.628178.10.20.22.4.2" /> <id nullFlavor="NA" /> <code codeSystem="local" code="CA" displayName= "CALCIUM" /> <statusCode code="completed" /> <effectiveTime value="066415086509" /> <value unit="mg/dL" xsi:type="PQ" value="9.6" / > <referenceRange> <observationRange> <text>8.5 -10.1</text> </observationRange> </referenceRange> </ observation> </component> <component> <observation moodCode= "EVN" classCode="OBS"> <templateId root="216.840.1.181630.10...4.2 " /> <id nullFlavor="NA" /> <code codeSystem="local" code="BUN " displayName="BLOOD UREA NITROGEN" /> <statusCode code="completed" /> <effectiveTime value="839221821163" /> <value unit="mg/dL" xsi:type="PQ" value="7" /> <referenceRange> < observationRange> <text>7-20</text> </observationRange> </referenceRange> </observation> </component> < component> <observation moodCode="EVN" classCode="OBS"> < templateId root="216.840.1.490404.10...4.2" /> <id nullFlavor="NA " /> <code codeSystem="local" code="CREAT" displayName="CREATININE" /> <statusCode code="completed" /> <effectiveTime value= "362695856967" /> <value unit="mg/dL" xsi:type="PQ" value="0.7" /> <referenceRange> <observationRange> <text>0.6-1.0< /text> </observationRange> </referenceRange> </ observation> </component> <component> <observation moodCode= "EVN" classCode="OBS"> <templateId root="216.840.1.798262.02.09.22.4.2 " /> <id nullFlavor="NA" /> <code codeSystem="local" code="NA " displayName="SODIUM" /> <statusCode code="completed" /> < effectiveTime value="167145407081" /> <value unit="mmol/L" xsi:type="PQ " value="139" /> <referenceRange> <observationRange> <text>135-148</text> </observationRange> </ referenceRange> </observation> </component> <component> <observation moodCode="EVN" classCode="OBS"> <templateId root= "2.16.840.1.565352.10..22.4.2" /> <id nullFlavor="NA" /> < code codeSystem="local" code="CL" displayName="CHLORIDE" /> < statusCode code="completed" /> <effectiveTime value="404449629001" /> <value unit="mmol/L" xsi:type="PQ" value="103" /> < referenceRange> <observationRange> <text>98-110</text> </observationRange> </referenceRange> </observation> </component> <component> <observation moodCode="EVN" classCode ="OBS"> <templateId root="2.16.840.1.179712.10..22.4.2" /> < id nullFlavor="NA" /> <code codeSystem="local" code="AST" displayName= "AST/SGOT" /> <statusCode code="completed" /> <effectiveTime value="163098824463" /> <value unit="Units/L" xsi:type="PQ" value="16" /> <referenceRange> <observationRange> <text>10 -37</text> </observationRange> </referenceRange> </ observation> </component> <component> <observation moodCode= "EVN" classCode="OBS"> <templateId root="16.840.1.360526.10..22.4.2 " /> <id nullFlavor="NA" /> <code codeSystem="local" code="ALT " displayName="ALT/SGPT" /> <statusCode code="completed" /> < effectiveTime value="681608349692" /> <value unit="Units/L" xsi:type= "PQ" value="18" /> <referenceRange> <observationRange> <text>< 66</text> </observationRange> </ referenceRange> </observation> </component> <component> <observation moodCode="EVN" classCode="OBS"> <templateId root= "06.08.840.1.958753.02.09.22.4.2" /> <id nullFlavor="NA" /> < code codeSystem="local" code="CO2" displayName="CARBON DIOXIDE" /> < statusCode code="completed" /> <effectiveTime value="326118324239" /> <value unit="mmol/L" xsi:type="PQ" value="23" /> < referenceRange> <observationRange> <text>21-32</text> </observationRange> </referenceRange> </observation> </component> <component> <observation moodCode="EVN" classCode= "OBS"> <templateId root="06.08.840.1.980075.1022.4.2" /> < id nullFlavor="NA" /> <code codeSystem="local" code="TP" displayName= "TOTAL PROTEIN" /> <statusCode code="completed" /> < effectiveTime value="708638850926" /> <value unit="gm/dL" xsi:type="PQ " value="8.6" /> <interpretationCode codeSystem="local" code="*" /> <referenceRange> <observationRange> <text>6.4-8.2 </text> </observationRange> </referenceRange> </ observation> </component> <component> <observation moodCode= "EVN" classCode="OBS"> <templateId root="16.840.1.820605.10.22.4.2 " /> <id nullFlavor="NA" /> <code codeSystem="local" code="ALB " displayName="ALBUMIN" /> <statusCode code="completed" /> < effectiveTime value="308878882700" /> <value unit="gm/dL" xsi:type="PQ " value="4.2" /> <referenceRange> <observationRange> <text>3.4-5.0</text> </observationRange> </ referenceRange> </observation> </component> <component> <observation moodCode="EVN" classCode="OBS"> <templateId root= "06.08.840.1.242413.10.4.2" /> <id nullFlavor="NA" /> < code codeSystem="local" code="BILTOT" displayName="BILI TOTAL" /> < statusCode code="completed" /> <effectiveTime value="038636728696" /> <value unit="mg/dL" xsi:type="PQ" value="0.3" /> < referenceRange> <observationRange> <text>0.0-1.0</text> </observationRange> </referenceRange> </observation > </component> <component> <observation moodCode="EVN" classCode="OBS"> <templateId root="06.08.840.1.442109.10..4.2" /> <id nullFlavor="NA" /> <code codeSystem="local" code="ALKP" displayName="ALKALINE PHOSPHATASE TOTAL" /> <statusCode code="completed " /> <effectiveTime value="047400790148" /> <value unit="IU/L " xsi:type="PQ" value="62" /> <referenceRange> < observationRange> <text>45-117</text> </observationRange > </referenceRange> </observation> </component> </ organizer> </entry> <entry> <organizer moodCode="EVN" classCode="BATTERY"> <templateId root="16.840.1.297032.10..4.1" /> <id nullFlavor= "NA" /> <code codeSystem="local" code="LIP" displayName="LIPASE" /> < statusCode code="completed" /> <component> <observation moodCode= "EVN" classCode="OBS"> <templateId root="216.840.1.424610.10..4.2 " /> <id nullFlavor="NA" /> <code codeSystem="local" code="LIP " displayName="LIPASE" /> <statusCode code="completed" /> < effectiveTime value="049536835261" /> <value unit="Units/L" xsi:type= "PQ" value="97" /> <referenceRange> <observationRange> <text>73-393</text> </observationRange> </ referenceRange> </observation> </component> </organizer> </entry > <entry> <organizer moodCode="EVN" classCode="BATTERY"> <templateId root="16.840.1.241126.10...4.1" /> <id nullFlavor="NA" /> <code codeSystem="local" code="PREG" displayName=" TEST, SERUM" /> < statusCode code="completed" /> <component> <observation moodCode= "EVN" classCode="OBS"> <templateId root="06.08.840.1.458939.02.09.22.4.2 " /> <id nullFlavor="NA" /> <code codeSystem="local" code= "PREG" displayName=" TEST, SERUM" /> <statusCode code= "completed" /> <effectiveTime value="747838205328" /> <value unit="" xsi:type="PQ" value="NEGATIVE" /> <referenceRange> < observationRange> <text>NEGATIVE</text> </ observationRange> </referenceRange> </observation> </ component> </organizer> </entry> <entry> <organizer moodCode="EVN" classCode="BATTERY"> <templateId root="216.840.1.464349.02.09.22.4.1" /> <id nullFlavor="NA" /> <code codeSystem="local" code="HELICOSCR" displayName="AB H.PYLORI SCREEN" /> <statusCode code="completed" /> < component> <observation moodCode="EVN" classCode="OBS"> < templateId root="16.840.1.685927...4.2" /> <id nullFlavor="NA " /> <code codeSystem="local" code="HELICOSCR" displayName="AB H.PYLORI SCREEN" /> <statusCode code="completed" /> < effectiveTime value="772854296146" /> <value unit="" xsi:type="PQ" value="NEGATIVE" /> <referenceRange> <observationRange> <text>NEGATIVE</text> </observationRange> </ referenceRange> </observation> </component> </organizer> </entry > <entry> <organizer moodCode="EVN" classCode="BATTERY"> <templateId root="16.840.1.812134.10..22.4.1" /> <id nullFlavor="NA" /> <code codeSystem="local" code="UA" displayName="URINALYSIS, ROUTINE" /> < statusCode code="completed" /> <component> <observation moodCode= "EVN" classCode="OBS"> <templateId root="06.08.840.1.682032.10.4.2 " /> <id nullFlavor="NA" /> <code codeSystem="local" code= "LEUESU" displayName="UA LEUKOCYTE ESTERASE DIPSTICK" /> <statusCode code="completed" /> <effectiveTime value="216517087344" /> < value unit="" xsi:type="PQ" value="NEGATIVE" /> <referenceRange> <observationRange> <text>NEGATIVE</text> </ observationRange> </referenceRange> </observation> </ component> <component> <observation moodCode="EVN" classCode="OBS"> <templateId root="840.1.417414.02.09.22.4.2" /> <id nullFlavor="NA" /> <code codeSystem="local" code="NITRIU" displayName= "UA NITRITE DIPSTICK" /> <statusCode code="completed" /> < effectiveTime value="521940778961" /> <value unit="" xsi:type="PQ" value="NEGATIVE" /> <referenceRange> <observationRange> <text>NEGATIVE</text> </observationRange> </ referenceRange> </observation> </component> <component> <observation moodCode="EVN" classCode="OBS"> <templateId root= "06.08.840.1.902783.02.09.22.4.2" /> <id nullFlavor="NA" /> < code codeSystem="local" code="PROTEIU" displayName="UA PROTEIN DIPSTICK" /> <statusCode code="completed" /> <effectiveTime value= "534768666574" /> <value unit="" xsi:type="PQ" value="NEGATIVE" /> <referenceRange> <observationRange> <text>NEGATIVE </text> </observationRange> </referenceRange> </ observation> </component> <component> <observation moodCode= "EVN" classCode="OBS"> <templateId root="16.840.1.222883.10..4.2 " /> <id nullFlavor="NA" /> <code codeSystem="local" code= "DGLUU" displayName="UA GLUCOSE DIPSTICK" /> <statusCode code= "completed" /> <effectiveTime value="980143273789" /> <value unit="" xsi:type="PQ" value="NEGATIVE" /> <referenceRange> < observationRange> <text>NEGATIVE</text> </ observationRange> </referenceRange> </observation> </ component> <component> <observation moodCode="EVN" classCode="OBS"> <templateId root="840.1.533331.02.09.22.4.2" /> <id nullFlavor="NA" /> <code codeSystem="local" code="KETONU" displayName= "UA KETONE DIPSTICK" /> <statusCode code="completed" /> < effectiveTime value="008694184254" /> <value unit="" xsi:type="PQ" value="NEGATIVE" /> <referenceRange> <observationRange> <text>NEGATIVE</text> </observationRange> </ referenceRange> </observation> </component> <component> <observation moodCode="EVN" classCode="OBS"> <templateId root= "06.08.840.1.330965.1022.4.2" /> <id nullFlavor="NA" /> < code codeSystem="local" code="UROBILU" displayName="UA UROBILINOGEN DIPSTICK" / > <statusCode code="completed" /> <effectiveTime value= "656739195800" /> <value unit="" xsi:type="PQ" value="NORMAL" /> <referenceRange> <observationRange> <text>NORMAL</ text> </observationRange> </referenceRange> </ observation> </component> <component> <observation moodCode= "EVN" classCode="OBS"> <templateId root="216.840.1.239897.02.09.22.4.2 " /> <id nullFlavor="NA" /> <code codeSystem="local" code= "BILU" displayName="UA BILIRUBIN DIPSTICK" /> <statusCode code= "completed" /> <effectiveTime value="316697592788" /> <value unit="" xsi:type="PQ" value="NEGATIVE" /> <referenceRange> < observationRange> <text>NEGATIVE</text> </ observationRange> </referenceRange> </observation> </ component> <component> <observation moodCode="EVN" classCode="OBS"> <templateId root="06.08.840.1.502048.02.09.22.4.2" /> <id nullFlavor="NA" /> <code codeSystem="local" code="SPENCER" displayName="UA BLOOD DIPSTICK" /> <statusCode code="completed" /> < effectiveTime value="937372740614" /> <value unit="" xsi:type="PQ" value="1+" /> <interpretationCode codeSystem="local" code="*" /> <referenceRange> <observationRange> <text>NEGATIVE</ text> </observationRange> </referenceRange> </ observation> </component> <component> <observation moodCode= "EVN" classCode="OBS"> <templateId root="06.08.840.1.667061.02.09.224.2 " /> <id nullFlavor="NA" /> <code codeSystem="local" code= "SPGRU" displayName="UA SPECIFIC GRAVITY" /> <statusCode code= "completed" /> <effectiveTime value="631524946715" /> <value unit="" xsi:type="PQ" value="1.015" /> <referenceRange> < observationRange> <text>1.015-1.025</text> </ observationRange> </referenceRange> </observation> </ component> <component> <observation moodCode="EVN" classCode="OBS"> <templateId root="840.1.843771.02.09.224.2" /> <id nullFlavor="NA" /> <code codeSystem="local" code="FEROZ" displayName="UR PH" /> <statusCode code="completed" /> <effectiveTime value= "760875812457" /> <value unit="" xsi:type="PQ" value="7.0" /> <referenceRange> <observationRange> <text>5.0-7.0</text > </observationRange> </referenceRange> </observation > </component> </organizer> </entry> <entry> <organizer moodCode= "EVN" classCode="BATTERY"> <templateId root="840.1.241554.02.09.22.4.1 " /> <id nullFlavor="NA" /> <code codeSystem="local" code="UAMICRO" displayName="UA MICROSCOPIC" /> <statusCode code="completed" /> < component> <observation moodCode="EVN" classCode="OBS"> < templateId root="06.08.840.1.412710.02.09.22.4.2" /> <id nullFlavor="NA " /> <code codeSystem="local" code="BACU" displayName="UA BACTERIA" /> <statusCode code="completed" /> <effectiveTime value= "404296850873" /> <value unit="" xsi:type="PQ" value="2+" /> < interpretationCode codeSystem="local" code="*" /> <referenceRange> <observationRange> <text>NEGATIVE</text> </ observationRange> </referenceRange> </observation> </ component> <component> <observation moodCode="EVN" classCode="OBS"> <templateId root="216.840.1.321719.10..22.4.2" /> <id nullFlavor="NA" /> <code codeSystem="local" code="EPIU" displayName=" UA EPITHELIAL CELLS" /> <statusCode code="completed" /> < effectiveTime value="252163792776" /> <value unit="epi/hpf" xsi:type= "PQ" value="3+" /> <interpretationCode codeSystem="local" code="*" /> <referenceRange> <observationRange> <text>0 - 1 +</text> </observationRange> </referenceRange> </ observation> </component> <component> <observation moodCode= "EVN" classCode="OBS"> <templateId root="16.840.1.848434.10..22.4.2 " /> <id nullFlavor="NA" /> <code codeSystem="local" code= "RBCU" displayName="UA RBC" /> <statusCode code="completed" /> <effectiveTime value="195641991400" /> <value unit="rbc/hpf" xsi:type ="PQ" value="0-3" /> <referenceRange> <observationRange> <text>0 - 3</text> </observationRange> </ referenceRange> </observation> </component> <component> <observation moodCode="EVN" classCode="OBS"> <templateId root= "16.840.1.548853.10..22.4.2" /> <id nullFlavor="NA" /> < code codeSystem="local" code="UAVOL" displayName="UA VOLUME FOR EXAM" /> <statusCode code="completed" /> <effectiveTime value="049434515890" /> <value unit="mL" xsi:type="PQ" value="12.0" /> < referenceRange> <observationRange> <text>(12mL STD)</ text> </observationRange> </referenceRange> </ observation> </component> <component> <observation moodCode= "EVN" classCode="OBS"> <templateId root="06.08.840.1.189497.02.09.22.4.2 " /> <id nullFlavor="NA" /> <code codeSystem="local" code= "WBCU" displayName="UA WBC" /> <statusCode code="completed" /> <effectiveTime value="773555129179" /> <value unit="wbc/hpf" xsi:type ="PQ" value="0" /> <referenceRange> <observationRange> <text>0 - 5</text> </observationRange> </ referenceRange> </observation> </component> </organizer> </entry > <entry> <organizer moodCode="EVN" classCode="BATTERY"> <templateId root="16.840.1.841247.10..22.4.1" /> <id nullFlavor="NA" /> <code codeSystem="local" code="52893-2" displayName="Automated blood complete blood count (hemogram) panel" /> <statusCode code="completed" /> <component > <observation moodCode="EVN" classCode="OBS"> <templateId root= "06.08.840.1.879354.02.09.22.4.2" /> <id nullFlavor="NA" /> < code codeSystem="local" code="6690-2" displayName="Blood leukocytes automated count (number/volume)" /> <statusCode code="completed" /> < effectiveTime value="237477411652" /> <value unit="10*3/uL" xsi:type= "PQ" value="4.9" /> <referenceRange> <observationRange> <text>4.3-11.0</text> </observationRange> </ referenceRange> </observation> </component> <component> <observation moodCode="EVN" classCode="OBS"> <templateId root= "216.840.1.353825.10.22.4.2" /> <id nullFlavor="NA" /> < code codeSystem="local" code="789-8" displayName="Blood erythrocytes automated count (number/volume)" /> <statusCode code="completed" /> < effectiveTime value="544439710711" /> <value unit="10*6/uL" xsi:type= "PQ" value="3.43" /> <interpretationCode codeSystem="local" code="" / > <referenceRange> <observationRange> <text> 4.35-5.85</text> </observationRange> </referenceRange> </observation> </component> <component> <observation moodCode="EVN" classCode="OBS"> <templateId root= "16.840.1.844008.10.20.22.4.2" /> <id nullFlavor="NA" /> < code codeSystem="local" code="46895-0" displayName="Venous blood hemoglobin measurement (mass/volume)" /> <statusCode code="completed" /> <effectiveTime value="357935242407" /> <value unit="g/dL" xsi:type="PQ " value="11.8" /> <referenceRange> <observationRange> <text>11.5-16.0</text> </observationRange> </ referenceRange> </observation> </component> <component> <observation moodCode="EVN" classCode="OBS"> <templateId root= "2.16.840.1.819746.10.20.22.4.2" /> <id nullFlavor="NA" /> < code codeSystem="local" code="14936-7" displayName="Blood hematocrit (volume fraction)" /> <statusCode code="completed" /> <effectiveTime value="215801996254" /> <value unit="%" xsi:type="PQ" value="36" / > <referenceRange> <observationRange> <text>35- 52</text> </observationRange> </referenceRange> </ observation> </component> <component> <observation moodCode= "EVN" classCode="OBS"> <templateId root="216.840.1.815269.10..22.4.2 " /> <id nullFlavor="NA" /> <code codeSystem="local" code="787 -2" displayName="Automated erythrocyte mean corpuscular volume" /> < statusCode code="completed" /> <effectiveTime value="183282319504" /> <value unit="[foz_us]" xsi:type="PQ" value="104" /> < interpretationCode codeSystem="local" code="" /> <referenceRange> <observationRange> <text>80-99</text> </ observationRange> </referenceRange> </observation> </ component> <component> <observation moodCode="EVN" classCode="OBS"> <templateId root="2.16.840.1.884591.10.20.22.4.2" /> <id nullFlavor="NA" /> <code codeSystem="local" code="785-6" displayName= "Automated erythrocyte mean corpuscular hemoglobin (mass per erythrocyte)" /> <statusCode code="completed" /> <effectiveTime value= "292110765021" /> <value unit="pg" xsi:type="PQ" value="34" /> <referenceRange> <observationRange> <text>25-34</text > </observationRange> </referenceRange> </observation > </component> <component> <observation moodCode="EVN" classCode="OBS"> <templateId root="2.16.840.1.759676.10.20.22.4.2" /> <id nullFlavor="NA" /> <code codeSystem="local" code="786-4" displayName="Automated erythrocyte mean corpuscular hemoglobin concentration measurement (mass/volume)" /> <statusCode code="completed" /> <effectiveTime value="746284616637" /> <value unit="g/dL" xsi:type="PQ " value="33" /> <referenceRange> <observationRange> <text>32-36</text> </observationRange> </ referenceRange> </observation> </component> <component> <observation moodCode="EVN" classCode="OBS"> <templateId root= "2.16.840.1.371813.10..22.4.2" /> <id nullFlavor="NA" /> < code codeSystem="local" code="788-0" displayName="Automated erythrocyte distribution width ratio" /> <statusCode code="completed" /> < effectiveTime value="553562312955" /> <value unit="%" xsi:type="PQ " value="13.3" /> <referenceRange> <observationRange> <text>10.0-14.5</text> </observationRange> </ referenceRange> </observation> </component> <component> <observation moodCode="EVN" classCode="OBS"> <templateId root= "2.16.840.1.257512.10.20.22.4.2" /> <id nullFlavor="NA" /> < code codeSystem="local" code="777-3" displayName="Automated blood platelet count (count/volume)" /> <statusCode code="completed" /> < effectiveTime value="510523874772" /> <value unit="10*3/uL" xsi:type= "PQ" value="302" /> <referenceRange> <observationRange> <text>130-400</text> </observationRange> </ referenceRange> </observation> </component> <component> <observation moodCode="EVN" classCode="OBS"> <templateId root= "2.16.840.1.717043.10...4.2" /> <id nullFlavor="NA" /> < code codeSystem="local" code="78270-4" displayName="Automated blood platelet mean volume measurement" /> <statusCode code="completed" /> < effectiveTime value="088583172128" /> <value unit="[foz_us]" xsi:type= "PQ" value="8.5" /> <referenceRange> <observationRange> <text>7.4-10.4</text> </observationRange> </ referenceRange> </observation> </component> </organizer> </entry > <entry> <organizer moodCode="EVN" classCode="BATTERY"> <templateId root="2.16.840.1.145213.10.20.22.4.1" /> <id nullFlavor="NA" /> <code codeSystem="local" code="2118-8" displayName="Serum or plasma choriogonadotropin ( test) detection" /> <statusCode code= "completed" /> <component> <observation moodCode="EVN" classCode= "OBS"> <templateId root="2.16.840.1.279765.10.20.22.4.2" /> < id nullFlavor="NA" /> <code codeSystem="local" code="2118-8" displayName="Serum or plasma choriogonadotropin ( test) detection" /> <statusCode code="completed" /> <effectiveTime value= "366623209521" /> <value unit="" xsi:type="PQ" value="NEGATIVE" /> <referenceRange> <observationRange> <text>NEGATIVE </text> </observationRange> </referenceRange> </ observation> </component> </organizer> </entry> <entry> <organizer moodCode="EVN" classCode="BATTERY"> <templateId root= "2.16.840.1.026113.10.20.22.4.1" /> <id nullFlavor="NA" /> <code codeSystem="local" code="95351-9" displayName="Liver function panel (serum or plasma alk phos, alb, total and direct bili, total protein, ALT, AST)" /> < statusCode code="completed" /> <component> <observation moodCode= "EVN" classCode="OBS"> <templateId root="2.16.840.1.867350.10.20.22.4.2 " /> <id nullFlavor="NA" /> <code codeSystem="local" code= "1974-05" displayName="Serum or plasma total bilirubin measurement (mass/volume) " /> <statusCode code="completed" /> <effectiveTime value= "362146336303" /> <value unit="mg/dL" xsi:type="PQ" value="0.2" /> <referenceRange> <observationRange> <text>0.1-1.0< /text> </observationRange> </referenceRange> </ observation> </component> <component> <observation moodCode= "EVN" classCode="OBS"> <templateId root="2.16.840.1.630510.10.20.22.4.2 " /> <id nullFlavor="NA" /> <code codeSystem="local" code= "6768-" displayName="Serum or plasma alkaline phosphatase measurement ( enzymatic activity/volume)" /> <statusCode code="completed" /> <effectiveTime value="250933933635" /> <value unit="U/L" xsi:type="PQ " value="45" /> <referenceRange> <observationRange> <text>40-136</text> </observationRange> </ referenceRange> </observation> </component> <component> <observation moodCode="EVN" classCode="OBS"> <templateId root= "2.16.840.1.546908.10..22.4.2" /> <id nullFlavor="NA" /> < code codeSystem="local" code="192" displayName="Serum or plasma aspartate aminotransferase measurement (enzymatic activity/volume)" /> < statusCode code="completed" /> <effectiveTime value="839222863853" /> <value unit="U/L" xsi:type="PQ" value="19" /> <referenceRange > <observationRange> <text>5-34</text> </ observationRange> </referenceRange> </observation> </ component> <component> <observation moodCode="EVN" classCode="OBS"> <templateId root="2.16.840.1.417842.10.20.22.4.2" /> <id nullFlavor="NA" /> <code codeSystem="local" code="17405-29" displayName= "Serum or plasma alanine aminotransferase measurement (enzymatic activity/volume )" /> <statusCode code="completed" /> <effectiveTime value= "921621199821" /> <value unit="U/L" xsi:type="PQ" value="12" /> <referenceRange> <observationRange> <text>0-55</text > </observationRange> </referenceRange> </observation > </component> <component> <observation moodCode="EVN" classCode="OBS"> <templateId root="2.16.840.1.381391.10.22.4.2" /> <id nullFlavor="NA" /> <code codeSystem="local" code="2885-" displayName="Serum or plasma protein measurement (mass/volume)" /> < statusCode code="completed" /> <effectiveTime value="123277313655" /> <value unit="g/dL" xsi:type="PQ" value="6.9" /> < referenceRange> <observationRange> <text>6.4-8.2</text> </observationRange> </referenceRange> </observation > </component> <component> <observation moodCode="EVN" classCode="OBS"> <templateId root="2.16.840.1.374525.1022.4.2" /> <id nullFlavor="NA" /> <code codeSystem="local" code="1751-7" displayName="Serum or plasma albumin measurement (mass/volume)" /> < statusCode code="completed" /> <effectiveTime value="823523541716" /> <value unit="g/dL" xsi:type="PQ" value="4.3" /> < referenceRange> <observationRange> <text>3.2-4.5</text> </observationRange> </referenceRange> </observation > </component> <component> <observation moodCode="EVN" classCode="OBS"> <templateId root="216.840.1.871515.02.09.22.4.2" /> <id nullFlavor="NA" /> <code codeSystem="local" code="1967-10" displayName="Bilirubin direct" /> <statusCode code="completed" /> <effectiveTime value="955078654505" /> <value unit="mg/dL" xsi: type="PQ" value="<" /> <referenceRange> <observationRange > <text>0.0-0.3</text> </observationRange> </ referenceRange> </observation> </component> <component> <observation moodCode="EVN" classCode="OBS"> <templateId root= "06.08.840.1.921073.02.09.22.4.2" /> <id nullFlavor="NA" /> < code codeSystem="local" code="1970-04" displayName="Serum or plasma indirect bilirubin measurement (mass/volume)" /> <statusCode code="completed" / > <effectiveTime value="665193623800" /> <value unit="mg/dL" xsi:type="PQ" value="0.1" /> <referenceRange> < observationRange> <text>NRG</text> </observationRange> </referenceRange> </observation> </component> </ organizer> </entry> <entry> <organizer moodCode="EVN" classCode="BATTERY"> <templateId root="06.08.840.1.885448.02.09.22.4.1" /> <id nullFlavor= "NA" /> <code codeSystem="local" code="90692-0" displayName="Whole blood basic metabolic panel" /> <statusCode code="completed" /> <component> <observation moodCode="EVN" classCode="OBS"> <templateId root= "06.08.840.1.017583.22.4.2" /> <id nullFlavor="NA" /> < code codeSystem="local" code="2951-2" displayName="Serum or plasma sodium measurement (moles/volume)" /> <statusCode code="completed" /> <effectiveTime value="643926518191" /> <value unit="mmol/L" xsi:type= "PQ" value="137" /> <referenceRange> <observationRange> <text>135-145</text> </observationRange> </ referenceRange> </observation> </component> <component> <observation moodCode="EVN" classCode="OBS"> <templateId root= "2.16.840.1.117069.10.20.22.4.2" /> <id nullFlavor="NA" /> < code codeSystem="local" code="2823-3" displayName="Serum or plasma potassium measurement (moles/volume)" /> <statusCode code="completed" /> <effectiveTime value="815165474671" /> <value unit="mmol/L" xsi:type= "PQ" value="4.1" /> <referenceRange> <observationRange> <text>3.6-5.0</text> </observationRange> </ referenceRange> </observation> </component> <component> <observation moodCode="EVN" classCode="OBS"> <templateId root= "2.16.840.1.636131.10.20.22.4.2" /> <id nullFlavor="NA" /> < code codeSystem="local" code="2075-0" displayName="Serum or plasma chloride measurement (moles/volume)" /> <statusCode code="completed" /> <effectiveTime value="187612201730" /> <value unit="mmol/L" xsi:type= "PQ" value="106" /> <referenceRange> <observationRange> <text>98-107</text> </observationRange> </ referenceRange> </observation> </component> <component> <observation moodCode="EVN" classCode="OBS"> <templateId root= "2.16.840.1.549255.10..22.4.2" /> <id nullFlavor="NA" /> < code codeSystem="local" code="2027-12" displayName="Carbon dioxide" /> < statusCode code="completed" /> <effectiveTime value="651277069487" /> <value unit="mmol/L" xsi:type="PQ" value="22" /> < referenceRange> <observationRange> <text>21-32</text> </observationRange> </referenceRange> </observation> </component> <component> <observation moodCode="EVN" classCode= "OBS"> <templateId root="16.840.1.982673.10...4.2" /> < id nullFlavor="NA" /> <code codeSystem="local" code="98832-2" displayName="Serum or plasma anion gap determination (moles/volume)" /> <statusCode code="completed" /> <effectiveTime value="791663336647" / > <value unit="mmol/L" xsi:type="PQ" value="9" /> < referenceRange> <observationRange> <text>5-14</text> </observationRange> </referenceRange> </observation> </component> <component> <observation moodCode="EVN" classCode= "OBS"> <templateId root="2.16.840.1.750412.10..22.4.2" /> < id nullFlavor="NA" /> <code codeSystem="local" code="3094-0" displayName="Serum or plasma urea nitrogen measurement (mass/volume)" /> <statusCode code="completed" /> <effectiveTime value="859376956162" /> <value unit="mg/dL" xsi:type="PQ" value="10" /> < referenceRange> <observationRange> <text>7-18</text> </observationRange> </referenceRange> </observation> </component> <component> <observation moodCode="EVN" classCode= "OBS"> <templateId root="2.16.840.1.875312.10..22.4.2" /> < id nullFlavor="NA" /> <code codeSystem="local" code="2160-0" displayName="Serum or plasma creatinine measurement (mass/volume)" /> < statusCode code="completed" /> <effectiveTime value="581977685378" /> <value unit="mg/dL" xsi:type="PQ" value="0.65" /> < referenceRange> <observationRange> <text>0.60-1.30</text > </observationRange> </referenceRange> </observation > </component> <component> <observation moodCode="EVN" classCode="OBS"> <templateId root="216.840.1.550006.10..22.4.2" /> <id nullFlavor="NA" /> <code codeSystem="local" code="3097-3" displayName="Serum or plasma urea nitrogen/creatinine mass ratio" /> < statusCode code="completed" /> <effectiveTime value="622090047816" /> <value unit="" xsi:type="PQ" value="15" /> <referenceRange> <observationRange> <text>NRG</text> </ observationRange> </referenceRange> </observation> </ component> <component> <observation moodCode="EVN" classCode="OBS"> <templateId root="2.16.840.1.441471.10.20.22.4.2" /> <id nullFlavor="NA" /> <code codeSystem="local" code="99578-6" displayName= "Serum or plasma creatinine measurement with calculation of estimated glomerular filtration rate" /> <statusCode code="completed" /> <effectiveTime value="575620027795" /> <value unit="" xsi:type="PQ" value=">" /> <referenceRange> <observationRange> <text>NRG</text> </observationRange> </referenceRange > </observation> </component> <component> <observation moodCode="EVN" classCode="OBS"> <templateId root= "2.16.840.1.652803.10.20.22.4.2" /> <id nullFlavor="NA" /> < code codeSystem="local" code="2345-7" displayName="Serum or plasma glucose measurement (mass/volume)" /> <statusCode code="completed" /> <effectiveTime value="695087122298" /> <value unit="mg/dL" xsi:type="PQ " value="78" /> <referenceRange> <observationRange> <text>70-105</text> </observationRange> </ referenceRange> </observation> </component> <component> <observation moodCode="EVN" classCode="OBS"> <templateId root= "2.16.840.1.294571.10.20.22.4.2" /> <id nullFlavor="NA" /> < code codeSystem="local" code="59728-0" displayName="Serum or plasma calcium measurement (mass/volume)" /> <statusCode code="completed" /> <effectiveTime value="207216076819" /> <value unit="mg/dL" xsi:type="PQ " value="8.9" /> <referenceRange> <observationRange> <text>8.5-10.1</text> </observationRange> </ referenceRange> </observation> </component> </organizer> </entry > <entry> <organizer moodCode="EVN" classCode="BATTERY"> <templateId root="2.16.840.1.812322.10..22.4.1" /> <id nullFlavor="NA" /> <code codeSystem="local" code="5643-2" displayName="Serum or plasma ethanol measurement (mass/volume)" /> <statusCode code="completed" /> < component> <observation moodCode="EVN" classCode="OBS"> < templateId root="2.16.840.1.429964.10...4.2" /> <id nullFlavor="NA " /> <code codeSystem="local" code="5643-2" displayName="Serum or plasma ethanol measurement (mass/volume)" /> <statusCode code= "completed" /> <effectiveTime value="579529317289" /> <value unit="mg/dL" xsi:type="PQ" value="<" /> <referenceRange> <observationRange> <text><10</text> </ observationRange> </referenceRange> </observation> </ component> </organizer> </entry> <entry> <organizer moodCode="EVN" classCode="BATTERY"> <templateId root="2.16.840.1.084669.10..22.4.1" /> <id nullFlavor="NA" /> <code codeSystem="local" code="10496-7" displayName="Serum or plasma thyrotropin measurement by detection limit <= 0.05 miu/l (units/volume)" /> <statusCode code="completed" /> < component> <observation moodCode="EVN" classCode="OBS"> < templateId root="2.16.840.1.970504.10..22.4.2" /> <id nullFlavor="NA " /> <code codeSystem="local" code="56466-6" displayName="Serum or plasma thyrotropin measurement by detection limit <=0.05 miu/l (units/volume) " /> <statusCode code="completed" /> <effectiveTime value= "753953021051" /> <value unit="u[iU]/mL" xsi:type="PQ" value="2.23" /> <referenceRange> <observationRange> <text>0.35 -4.94</text> </observationRange> </referenceRange> </ observation> </component> </organizer> </entry> <entry> <organizer moodCode="EVN" classCode="BATTERY"> <templateId root= "216.840.1.634253.10..22.4.1" /> <id nullFlavor="NA" /> <code codeSystem="local" code="26113-2" displayName="Complete urinalysis with reflex to culture" /> <statusCode code="completed" /> <component> < observation moodCode="EVN" classCode="OBS"> <templateId root= "16.840.1.182292.10...4.2" /> <id nullFlavor="NA" /> < code codeSystem="local" code="5778-6" displayName="Urine color determination" / > <statusCode code="completed" /> <effectiveTime value= "028212370650" /> <value unit="" xsi:type="PQ" value="YELLOW" /> <referenceRange> <observationRange> <text>NRG</text > </observationRange> </referenceRange> </observation > </component> <component> <observation moodCode="EVN" classCode="OBS"> <templateId root="216.840.1.699035.10..22.4.2" /> <id nullFlavor="NA" /> <code codeSystem="local" code="18712-3 " displayName="Urine clarity determination" /> <statusCode code= "completed" /> <effectiveTime value="282177183133" /> <value unit="" xsi:type="PQ" value="CLEAR" /> <referenceRange> < observationRange> <text>NRG</text> </observationRange> </referenceRange> </observation> </component> < component> <observation moodCode="EVN" classCode="OBS"> < templateId root="2.16.840.1.116676.10.20.22.4.2" /> <id nullFlavor="NA " /> <code codeSystem="local" code="5803-2" displayName="Urine pH measurement by test strip" /> <statusCode code="completed" /> <effectiveTime value="170562158978" /> <value unit="" xsi:type="PQ" value="5" /> <referenceRange> <observationRange> <text>5-9</text> </observationRange> </referenceRange> </observation> </component> <component> <observation moodCode="EVN" classCode="OBS"> <templateId root= "2.16.840.1.292083.10.20.22.4.2" /> <id nullFlavor="NA" /> < code codeSystem="local" code="5811-5" displayName="Specific gravity of urine by test strip" /> <statusCode code="completed" /> <effectiveTime value="505364894368" /> <value unit="" xsi:type="PQ" value="1.005" /> <interpretationCode codeSystem="local" code="" /> < referenceRange> <observationRange> <text>1.016-1.022</ text> </observationRange> </referenceRange> </ observation> </component> <component> <observation moodCode= "EVN" classCode="OBS"> <templateId root="216.840.1.366478.10.22.4.2 " /> <id nullFlavor="NA" /> <code codeSystem="local" code= "92859-0" displayName="Urine protein assay by test strip, semi-quantitative" /> <statusCode code="completed" /> <effectiveTime value= "689987965041" /> <value unit="" xsi:type="PQ" value="NEGATIVE" /> <referenceRange> <observationRange> <text>NEGATIVE </text> </observationRange> </referenceRange> </ observation> </component> <component> <observation moodCode= "EVN" classCode="OBS"> <templateId root="216.840.1.400423.10..4.2 " /> <id nullFlavor="NA" /> <code codeSystem="local" code= "51217-1" displayName="Urine glucose detection by automated test strip" /> <statusCode code="completed" /> <effectiveTime value="070762630839 " /> <value unit="" xsi:type="PQ" value="NEGATIVE" /> < referenceRange> <observationRange> <text>NEGATIVE</text > </observationRange> </referenceRange> </observation > </component> <component> <observation moodCode="EVN" classCode="OBS"> <templateId root="16.840.1.239775.10..22.4.2" /> <id nullFlavor="NA" /> <code codeSystem="local" code="17922-4 " displayName="Erythrocytes detection in urine sediment by light microscopy" /> <statusCode code="completed" /> <effectiveTime value= "411361720830" /> <value unit="" xsi:type="PQ" value="NEGATIVE" /> <referenceRange> <observationRange> <text>NEGATIVE </text> </observationRange> </referenceRange> </ observation> </component> <component> <observation moodCode= "EVN" classCode="OBS"> <templateId root="216.840.1.374642.10.20.22.4.2 " /> <id nullFlavor="NA" /> <code codeSystem="local" code= "59588-1" displayName="Urine ketones detection by automated test strip" /> <statusCode code="completed" /> <effectiveTime value="402368193885 " /> <value unit="" xsi:type="PQ" value="NEGATIVE" /> < referenceRange> <observationRange> <text>NEGATIVE</text > </observationRange> </referenceRange> </observation > </component> <component> <observation moodCode="EVN" classCode="OBS"> <templateId root="16.840.1.109451.10.22.4.2" /> <id nullFlavor="NA" /> <code codeSystem="local" code="5802-4" displayName="Urine nitrite detection by test strip" /> <statusCode code ="completed" /> <effectiveTime value="463073759690" /> <value unit="" xsi:type="PQ" value="NEGATIVE" /> <referenceRange> < observationRange> <text>NEGATIVE</text> </ observationRange> </referenceRange> </observation> </ component> <component> <observation moodCode="EVN" classCode="OBS"> <templateId root="06.08.840.1.960422.10.20.22.4.2" /> <id nullFlavor="NA" /> <code codeSystem="local" code="5770-3" displayName= "Urine total bilirubin detection by test strip" /> <statusCode code= "completed" /> <effectiveTime value="873034465885" /> <value unit="" xsi:type="PQ" value="NEGATIVE" /> <referenceRange> < observationRange> <text>NEGATIVE</text> </ observationRange> </referenceRange> </observation> </ component> <component> <observation moodCode="EVN" classCode="OBS"> <templateId root="216.840.1.291693.10..22.4.2" /> <id nullFlavor="NA" /> <code codeSystem="local" code="16486-6" displayName= "Urine urobilinogen measurement by automated test strip (mass/volume)" /> <statusCode code="completed" /> <effectiveTime value="589730389314 " /> <value unit="" xsi:type="PQ" value="NORMAL" /> < referenceRange> <observationRange> <text>NORMAL</text> </observationRange> </referenceRange> </observation> </component> <component> <observation moodCode="EVN" classCode ="OBS"> <templateId root="06.08.840.1.501425.10.22.4.2" /> < id nullFlavor="NA" /> <code codeSystem="local" code="5799-2" displayName="Urine leukocyte esterase detection by dipstick" /> < statusCode code="completed" /> <effectiveTime value="149523536724" /> <value unit="" xsi:type="PQ" value="NEGATIVE" /> < referenceRange> <observationRange> <text>NEGATIVE</text > </observationRange> </referenceRange> </observation > </component> <component> <observation moodCode="EVN" classCode="OBS"> <templateId root="216.840.1.620848.10.20.22.4.2" /> <id nullFlavor="NA" /> <code codeSystem="local" code="21822-9 " displayName="Automated urine sediment erythrocyte count by microscopy (number/ high power field)" /> <statusCode code="completed" /> < effectiveTime value="500182238760" /> <value unit="" xsi:type="PQ" value="NONE" /> <referenceRange> <observationRange> <text>NRG</text> </observationRange> </referenceRange > </observation> </component> <component> <observation moodCode="EVN" classCode="OBS"> <templateId root= "2.16.840.1.430121.10..22.4.2" /> <id nullFlavor="NA" /> < code codeSystem="local" code="5821-4" displayName="Automated urine sediment leukocyte count by microscopy (number/high power field)" /> < statusCode code="completed" /> <effectiveTime value="097533798609" /> <value unit="" xsi:type="PQ" value="RARE" /> <referenceRange> <observationRange> <text>NRG</text> </ observationRange> </referenceRange> </observation> </ component> <component> <observation moodCode="EVN" classCode="OBS"> <templateId root="2.16.840.1.652011.10..22.4.2" /> <id nullFlavor="NA" /> <code codeSystem="local" code="46455-1" displayName= "Bacteria detection in urine sediment by light microscopy" /> < statusCode code="completed" /> <effectiveTime value="362891380652" /> <value unit="" xsi:type="PQ" value="TRACE" /> <referenceRange > <observationRange> <text>NRG</text> </ observationRange> </referenceRange> </observation> </ component> <component> <observation moodCode="EVN" classCode="OBS"> <templateId root="216.840.1.715449.10.20.22.4.2" /> <id nullFlavor="NA" /> <code codeSystem="local" code="02394-4" displayName= "Squamous epithelial cells detection in urine sediment by light microscopy" /> <statusCode code="completed" /> <effectiveTime value= "305955193820" /> <value unit="" xsi:type="PQ" value="2-5" /> <referenceRange> <observationRange> <text>NRG</text> </observationRange> </referenceRange> </observation> </component> <component> <observation moodCode="EVN" classCode= "OBS"> <templateId root="06.08.840.1.258252.10..22.4.2" /> < id nullFlavor="NA" /> <code codeSystem="local" code="69353-0" displayName="Crystals detection in urine sediment by light microscopy" /> <statusCode code="completed" /> <effectiveTime value="157734415352 " /> <value unit="" xsi:type="PQ" value="NONE" /> < referenceRange> <observationRange> <text>NRG</text> </observationRange> </referenceRange> </observation> </component> <component> <observation moodCode="EVN" classCode= "OBS"> <templateId root="16.840.1.437365.10.20.22.4.2" /> < id nullFlavor="NA" /> <code codeSystem="local" code="94881-9" displayName="Casts detection in urine sediment by light microscopy" /> <statusCode code="completed" /> <effectiveTime value="048328638683" /> <value unit="" xsi:type="PQ" value="NONE" /> <referenceRange > <observationRange> <text>NRG</text> </ observationRange> </referenceRange> </observation> </ component> <component> <observation moodCode="EVN" classCode="OBS"> <templateId root="16.840.1.341189.10..22.4.2" /> <id nullFlavor="NA" /> <code codeSystem="local" code="8247-9" displayName= "Mucus detection in urine sediment by light microscopy" /> <statusCode code="completed" /> <effectiveTime value="527155071551" /> < value unit="" xsi:type="PQ" value="NEGATIVE" /> <referenceRange> <observationRange> <text>NRG</text> </ observationRange> </referenceRange> </observation> </ component> <component> <observation moodCode="EVN" classCode="OBS"> <templateId root="16.840.1.209534.10..22.4.2" /> <id nullFlavor="NA" /> <code codeSystem="local" code="16703-4" displayName= "Complete urinalysis with reflex to culture" /> <statusCode code= "completed" /> <effectiveTime value="972497542108" /> <value unit="" xsi:type="PQ" value="NO" /> <referenceRange> < observationRange> <text>NRG</text> </observationRange> </referenceRange> </observation> </component> </ organizer> </entry> <entry> <organizer moodCode="EVN" classCode="BATTERY"> <templateId root="16.840.1.391132.10..22.4.1" /> <id nullFlavor= "NA" /> <code codeSystem="local" code="75047-8" displayName="Urine drug screening test" /> <statusCode code="completed" /> <component> <observation moodCode="EVN" classCode="OBS"> <templateId root= "216.840.1.580172.10...4.2" /> <id nullFlavor="NA" /> < code codeSystem="local" code="36630-0" displayName="Urine phencyclidine detection by screening method" /> <statusCode code="completed" /> <effectiveTime value="334271762945" /> <value unit="" xsi:type="PQ " value="NEGATIVE" /> <referenceRange> <observationRange> <text>NEGATIVE</text> </observationRange> </ referenceRange> </observation> </component> <component> <observation moodCode="EVN" classCode="OBS"> <templateId root= "216.840.1.394839.02.09.22.4.2" /> <id nullFlavor="NA" /> < code codeSystem="local" code="54627-0" displayName="Urine benzodiazepines detection by screening method" /> <statusCode code="completed" /> <effectiveTime value="054592684755" /> <value unit="" xsi:type="PQ " value="NEGATIVE" /> <referenceRange> <observationRange> <text>NEGATIVE</text> </observationRange> </ referenceRange> </observation> </component> <component> <observation moodCode="EVN" classCode="OBS"> <templateId root= "06.08.840.1.627174.10...4.2" /> <id nullFlavor="NA" /> < code codeSystem="local" code="3397-7" displayName="Urine cocaine detection" /> <statusCode code="completed" /> <effectiveTime value= "362200968166" /> <value unit="" xsi:type="PQ" value="NEGATIVE" /> <referenceRange> <observationRange> <text>NEGATIVE </text> </observationRange> </referenceRange> </ observation> </component> <component> <observation moodCode= "EVN" classCode="OBS"> <templateId root="216.840.1.639904.10.20.22.4.2 " /> <id nullFlavor="NA" /> <code codeSystem="local" code= "42027-6" displayName="Urine amphetamines detection by screening method" /> <statusCode code="completed" /> <effectiveTime value= "761737135226" /> <value unit="" xsi:type="PQ" value="NEGATIVE" /> <referenceRange> <observationRange> <text>NEGATIVE </text> </observationRange> </referenceRange> </ observation> </component> <component> <observation moodCode= "EVN" classCode="OBS"> <templateId root="06.08.840.1.453550.10.22.4.2 " /> <id nullFlavor="NA" /> <code codeSystem="local" code= "92135-8" displayName="Urine methamphetamine detection by screening method" /> <statusCode code="completed" /> <effectiveTime value= "423510033441" /> <value unit="" xsi:type="PQ" value="NEGATIVE" /> <referenceRange> <observationRange> <text>NEGATIVE </text> </observationRange> </referenceRange> </ observation> </component> <component> <observation moodCode= "EVN" classCode="OBS"> <templateId root="06.08.840.1.111477.10.2022.4.2 " /> <id nullFlavor="NA" /> <code codeSystem="local" code= "06395-6" displayName="Urine cannabinoids detection by screening method" /> <statusCode code="completed" /> <effectiveTime value= "987486689030" /> <value unit="" xsi:type="PQ" value="NEGATIVE" /> <referenceRange> <observationRange> <text>NEGATIVE </text> </observationRange> </referenceRange> </ observation> </component> <component> <observation moodCode= "EVN" classCode="OBS"> <templateId root="216.840.1.494798.10..22.4.2 " /> <id nullFlavor="NA" /> <code codeSystem="local" code= "13512-9" displayName="Urine opiates detection by screening method" /> <statusCode code="completed" /> <effectiveTime value="344294092860" /> <value unit="" xsi:type="PQ" value="NEGATIVE" /> < referenceRange> <observationRange> <text>NEGATIVE</text > </observationRange> </referenceRange> </observation > </component> <component> <observation moodCode="EVN" classCode="OBS"> <templateId root="16.840.1.933008.10.22.4.2" /> <id nullFlavor="NA" /> <code codeSystem="local" code="3377-9" displayName="Urine barbiturates detection" /> <statusCode code= "completed" /> <effectiveTime value="670379784565" /> <value unit="" xsi:type="PQ" value="NEGATIVE" /> <referenceRange> < observationRange> <text>NEGATIVE</text> </ observationRange> </referenceRange> </observation> </ component> <component> <observation moodCode="EVN" classCode="OBS"> <templateId root="216.840.1.524869.10.20.22.4.2" /> <id nullFlavor="NA" /> <code codeSystem="local" code="" displayName= "Screening urine tricyclic antidepressants detection" /> <statusCode code="completed" /> <effectiveTime value="624316312425" /> < value unit="" xsi:type="PQ" value="POSITIVE" /> <interpretationCode codeSystem="local" code="*" /> <referenceRange> < observationRange> <text>NEGATIVE</text> </ observationRange> </referenceRange> </observation> </ component> <component> <observation moodCode="EVN" classCode="OBS"> <templateId root="216.840.1.576632.10.20.22.4.2" /> <id nullFlavor="NA" /> <code codeSystem="local" code="23999-2" displayName= "Urine methadone detection by screening method" /> <statusCode code= "completed" /> <effectiveTime value="821919397328" /> <value unit="" xsi:type="PQ" value="NEGATIVE" /> <referenceRange> < observationRange> <text>NEGATIVE</text> </ observationRange> </referenceRange> </observation> </ component> <component> <observation moodCode="EVN" classCode="OBS"> <templateId root="216.840.1.436253.10.20.22.4.2" /> <id nullFlavor="NA" /> <code codeSystem="local" code="02758-7" displayName= "Urine oxycodone detection" /> <statusCode code="completed" /> <effectiveTime value="742176202725" /> <value unit="" xsi:type="PQ" value="NEGATIVE" /> <referenceRange> <observationRange> <text>NEGATIVE</text> </observationRange> </ referenceRange> </observation> </component> <component> <observation moodCode="EVN" classCode="OBS"> <templateId root= "06.08.840.1.962457.10..22.4.2" /> <id nullFlavor="NA" /> < code codeSystem="local" code="75309-0" displayName="Urine propoxyphene detection " /> <statusCode code="completed" /> <effectiveTime value= "793389626196" /> <value unit="" xsi:type="PQ" value="NEGATIVE" /> <referenceRange> <observationRange> <text>NEGATIVE </text> </observationRange> </referenceRange> </ observation> </component> </organizer> </entry> <entry> <organizer moodCode="EVN" classCode="BATTERY"> <templateId root= "16.840.1.758384.10..22.4.1" /> <id nullFlavor="NA" /> <code codeSystem="local" code="88707-1" displayName="Complete urinalysis with reflex to culture" /> <statusCode code="completed" /> <component> < observation moodCode="EVN" classCode="OBS"> <templateId root= "216.840.1.988603.10..22.4.2" /> <id nullFlavor="NA" /> < code codeSystem="local" code="5778-6" displayName="Urine color determination" / > <statusCode code="completed" /> <effectiveTime value= "167042768125" /> <value unit="" xsi:type="PQ" value="YELLOW" /> <referenceRange> <observationRange> <text>NRG</text > </observationRange> </referenceRange> </observation > </component> <component> <observation moodCode="EVN" classCode="OBS"> <templateId root="216.840.1.571022.10..22.4.2" /> <id nullFlavor="NA" /> <code codeSystem="local" code="38319-7 " displayName="Urine clarity determination" /> <statusCode code= "completed" /> <effectiveTime value="101432925340" /> <value unit="" xsi:type="PQ" value="CLEAR" /> <referenceRange> < observationRange> <text>NRG</text> </observationRange> </referenceRange> </observation> </component> < component> <observation moodCode="EVN" classCode="OBS"> < templateId root="2.16.840.1.208193.10.20.22.4.2" /> <id nullFlavor="NA " /> <code codeSystem="local" code="5803-2" displayName="Urine pH measurement by test strip" /> <statusCode code="completed" /> <effectiveTime value="815961688342" /> <value unit="" xsi:type="PQ" value="7" /> <referenceRange> <observationRange> <text>5-9</text> </observationRange> </referenceRange> </observation> </component> <component> <observation moodCode="EVN" classCode="OBS"> <templateId root= "2.16.840.1.217435.10.20.22.4.2" /> <id nullFlavor="NA" /> < code codeSystem="local" code="5811-5" displayName="Specific gravity of urine by test strip" /> <statusCode code="completed" /> <effectiveTime value="118000641434" /> <value unit="" xsi:type="PQ" value="1.010" /> <interpretationCode codeSystem="local" code="" /> < referenceRange> <observationRange> <text>1.016-1.022</ text> </observationRange> </referenceRange> </ observation> </component> <component> <observation moodCode= "EVN" classCode="OBS"> <templateId root="216.840.1.008811.10..22.4.2 " /> <id nullFlavor="NA" /> <code codeSystem="local" code= "63458-8" displayName="Urine protein assay by test strip, semi-quantitative" /> <statusCode code="completed" /> <effectiveTime value= "353235319514" /> <value unit="" xsi:type="PQ" value="NEGATIVE" /> <referenceRange> <observationRange> <text>NEGATIVE </text> </observationRange> </referenceRange> </ observation> </component> <component> <observation moodCode= "EVN" classCode="OBS"> <templateId root="216.840.1.427350.10..4.2 " /> <id nullFlavor="NA" /> <code codeSystem="local" code= "03346-1" displayName="Urine glucose detection by automated test strip" /> <statusCode code="completed" /> <effectiveTime value=" " /> <value unit="" xsi:type="PQ" value="NEGATIVE" /> < referenceRange> <observationRange> <text>NEGATIVE</text > </observationRange> </referenceRange> </observation > </component> <component> <observation moodCode="EVN" classCode="OBS"> <templateId root="16.840.1.126203.10..22.4.2" /> <id nullFlavor="NA" /> <code codeSystem="local" code="70516-7 " displayName="Erythrocytes detection in urine sediment by light microscopy" /> <statusCode code="completed" /> <effectiveTime value= "750983775303" /> <value unit="" xsi:type="PQ" value="5+" /> < interpretationCode codeSystem="local" code="*" /> <referenceRange> <observationRange> <text>NEGATIVE</text> </ observationRange> </referenceRange> </observation> </ component> <component> <observation moodCode="EVN" classCode="OBS"> <templateId root="06.08.840.1.776889.10.20.22.4.2" /> <id nullFlavor="NA" /> <code codeSystem="local" code="00868-7" displayName= "Urine ketones detection by automated test strip" /> <statusCode code= "completed" /> <effectiveTime value="575903186325" /> <value unit="" xsi:type="PQ" value="NEGATIVE" /> <referenceRange> < observationRange> <text>NEGATIVE</text> </ observationRange> </referenceRange> </observation> </ component> <component> <observation moodCode="EVN" classCode="OBS"> <templateId root="06.08.840.1.236616.10.2022.4.2" /> <id nullFlavor="NA" /> <code codeSystem="local" code="5802-4" displayName= "Urine nitrite detection by test strip" /> <statusCode code="completed " /> <effectiveTime value="341288345587" /> <value unit="" xsi :type="PQ" value="NEGATIVE" /> <referenceRange> < observationRange> <text>NEGATIVE</text> </ observationRange> </referenceRange> </observation> </ component> <component> <observation moodCode="EVN" classCode="OBS"> <templateId root="06.08.840.1.638075.10.20.22.4.2" /> <id nullFlavor="NA" /> <code codeSystem="local" code="5770-3" displayName= "Urine total bilirubin detection by test strip" /> <statusCode code= "completed" /> <effectiveTime value="669199788337" /> <value unit="" xsi:type="PQ" value="NEGATIVE" /> <referenceRange> < observationRange> <text>NEGATIVE</text> </ observationRange> </referenceRange> </observation> </ component> <component> <observation moodCode="EVN" classCode="OBS"> <templateId root="16.840.1.902976.10..22.4.2" /> <id nullFlavor="NA" /> <code codeSystem="local" code="48980-8" displayName= "Urine urobilinogen measurement by automated test strip (mass/volume)" /> <statusCode code="completed" /> <effectiveTime value="848982520482 " /> <value unit="" xsi:type="PQ" value="NORMAL" /> < referenceRange> <observationRange> <text>NORMAL</text> </observationRange> </referenceRange> </observation> </component> <component> <observation moodCode="EVN" classCode ="OBS"> <templateId root="06.08.840.1.233450.10..22.4.2" /> < id nullFlavor="NA" /> <code codeSystem="local" code="5799-2" displayName="Urine leukocyte esterase detection by dipstick" /> < statusCode code="completed" /> <effectiveTime value="642815600830" /> <value unit="" xsi:type="PQ" value="1+" /> < interpretationCode codeSystem="local" code="*" /> <referenceRange> <observationRange> <text>NEGATIVE</text> </ observationRange> </referenceRange> </observation> </ component> <component> <observation moodCode="EVN" classCode="OBS"> <templateId root="06.08.840.1.765143.10.20.22.4.2" /> <id nullFlavor="NA" /> <code codeSystem="local" code="88673-9" displayName= "Automated urine sediment erythrocyte count by microscopy (number/high power field)" /> <statusCode code="completed" /> <effectiveTime value="564867831271" /> <value unit="[HPF]" xsi:type="PQ" value="" /> <referenceRange> <observationRange> <text>NRG</ text> </observationRange> </referenceRange> </ observation> </component> <component> <observation moodCode= "EVN" classCode="OBS"> <templateId root="216.840.1.041453.10..22.4.2 " /> <id nullFlavor="NA" /> <code codeSystem="local" code= "5821-4" displayName="Automated urine sediment leukocyte count by microscopy ( number/high power field)" /> <statusCode code="completed" /> < effectiveTime value="196149455170" /> <value unit="[HPF]" xsi:type="PQ " value="" /> <referenceRange> <observationRange> <text>NRG</text> </observationRange> </referenceRange> </observation> </component> <component> <observation moodCode="EVN" classCode="OBS"> <templateId root= "2.16.840.1.020495.10.20.22.4.2" /> <id nullFlavor="NA" /> < code codeSystem="local" code="50004-2" displayName="Bacteria detection in urine sediment by light microscopy" /> <statusCode code="completed" /> <effectiveTime value="356685139686" /> <value unit="" xsi:type="PQ " value="NEGATIVE" /> <referenceRange> <observationRange> <text>NRG</text> </observationRange> </ referenceRange> </observation> </component> <component> <observation moodCode="EVN" classCode="OBS"> <templateId root= "216.840.1.675814.10..22.4.2" /> <id nullFlavor="NA" /> < code codeSystem="local" code="24996-5" displayName="Squamous epithelial cells detection in urine sediment by light microscopy" /> <statusCode code= "completed" /> <effectiveTime value="475910275279" /> <value unit="" xsi:type="PQ" value="5-10" /> <referenceRange> < observationRange> <text>NRG</text> </observationRange> </referenceRange> </observation> </component> < component> <observation moodCode="EVN" classCode="OBS"> < templateId root="06.08.840.1.158318.10.22.4.2" /> <id nullFlavor="NA " /> <code codeSystem="local" code="30672-1" displayName="Crystals detection in urine sediment by light microscopy" /> <statusCode code= "completed" /> <effectiveTime value="166071206530" /> <value unit="" xsi:type="PQ" value="NONE" /> <referenceRange> < observationRange> <text>NRG</text> </observationRange> </referenceRange> </observation> </component> < component> <observation moodCode="EVN" classCode="OBS"> < templateId root="06.08.840.1.626059.10.22.4.2" /> <id nullFlavor="NA " /> <code codeSystem="local" code="69458-4" displayName="Casts detection in urine sediment by light microscopy" /> <statusCode code= "completed" /> <effectiveTime value="023734038237" /> <value unit="" xsi:type="PQ" value="NONE" /> <referenceRange> < observationRange> <text>NRG</text> </observationRange> </referenceRange> </observation> </component> < component> <observation moodCode="EVN" classCode="OBS"> < templateId root="216.840.1.998298.10..22.4.2" /> <id nullFlavor="NA " /> <code codeSystem="local" code="8247-9" displayName="Mucus detection in urine sediment by light microscopy" /> <statusCode code= "completed" /> <effectiveTime value="298339094156" /> <value unit="" xsi:type="PQ" value="NEGATIVE" /> <referenceRange> < observationRange> <text>NRG</text> </observationRange> </referenceRange> </observation> </component> < component> <observation moodCode="EVN" classCode="OBS"> < templateId root="216.840.1.266333.10...4.2" /> <id nullFlavor="NA " /> <code codeSystem="local" code="63625-9" displayName="Complete urinalysis with reflex to culture" /> <statusCode code="completed" /> <effectiveTime value="065286313233" /> <value unit="" xsi:type ="PQ" value="NO" /> <referenceRange> <observationRange> <text>NRG</text> </observationRange> </ referenceRange> </observation> </component> </organizer> </entry > <entry> <organizer moodCode="EVN" classCode="BATTERY"> <templateId root="216.840.1.799411.10..22.4.1" /> <id nullFlavor="NA" /> <code codeSystem="local" code="07297-1" displayName="Urine drug screening test" /> <statusCode code="completed" /> <component> <observation moodCode ="EVN" classCode="OBS"> <templateId root= "16.840.1.367266.10..22.4.2" /> <id nullFlavor="NA" /> < code codeSystem="local" code="42035-2" displayName="Urine phencyclidine detection by screening method" /> <statusCode code="completed" /> <effectiveTime value="967220157623" /> <value unit="" xsi:type="PQ " value="NEGATIVE" /> <referenceRange> <observationRange> <text>NEGATIVE</text> </observationRange> </ referenceRange> </observation> </component> <component> <observation moodCode="EVN" classCode="OBS"> <templateId root= "06.08.840.1.735861.10.22.4.2" /> <id nullFlavor="NA" /> < code codeSystem="local" code="70058-8" displayName="Urine benzodiazepines detection by screening method" /> <statusCode code="completed" /> <effectiveTime value="170260720361" /> <value unit="" xsi:type="PQ " value="NEGATIVE" /> <referenceRange> <observationRange> <text>NEGATIVE</text> </observationRange> </ referenceRange> </observation> </component> <component> <observation moodCode="EVN" classCode="OBS"> <templateId root= "06.08.840.1.076655.10.22.4.2" /> <id nullFlavor="NA" /> < code codeSystem="local" code="3397-7" displayName="Urine cocaine detection" /> <statusCode code="completed" /> <effectiveTime value= "962836201609" /> <value unit="" xsi:type="PQ" value="NEGATIVE" /> <referenceRange> <observationRange> <text>NEGATIVE </text> </observationRange> </referenceRange> </ observation> </component> <component> <observation moodCode= "EVN" classCode="OBS"> <templateId root="216.840.1.360021.10.22.4.2 " /> <id nullFlavor="NA" /> <code codeSystem="local" code= "31588-8" displayName="Urine amphetamines detection by screening method" /> <statusCode code="completed" /> <effectiveTime value= "509056711013" /> <value unit="" xsi:type="PQ" value="NEGATIVE" /> <referenceRange> <observationRange> <text>NEGATIVE </text> </observationRange> </referenceRange> </ observation> </component> <component> <observation moodCode= "EVN" classCode="OBS"> <templateId root="06.08.840.1.654178.1022.4.2 " /> <id nullFlavor="NA" /> <code codeSystem="local" code= "13623-2" displayName="Urine methamphetamine detection by screening method" /> <statusCode code="completed" /> <effectiveTime value= "978886038852" /> <value unit="" xsi:type="PQ" value="NEGATIVE" /> <referenceRange> <observationRange> <text>NEGATIVE </text> </observationRange> </referenceRange> </ observation> </component> <component> <observation moodCode= "EVN" classCode="OBS"> <templateId root="216.840.1.568358.10.2022.4.2 " /> <id nullFlavor="NA" /> <code codeSystem="local" code= "65181-9" displayName="Urine cannabinoids detection by screening method" /> <statusCode code="completed" /> <effectiveTime value= "419572065303" /> <value unit="" xsi:type="PQ" value="NEGATIVE" /> <referenceRange> <observationRange> <text>NEGATIVE </text> </observationRange> </referenceRange> </ observation> </component> <component> <observation moodCode= "EVN" classCode="OBS"> <templateId root="2.16.840.1.993849.10.20.22.4.2 " /> <id nullFlavor="NA" /> <code codeSystem="local" code= "23316-6" displayName="Urine opiates detection by screening method" /> <statusCode code="completed" /> <effectiveTime value="682682402246" /> <value unit="" xsi:type="PQ" value="POSITIVE" /> < interpretationCode codeSystem="local" code="*" /> <referenceRange> <observationRange> <text>NEGATIVE</text> </ observationRange> </referenceRange> </observation> </ component> <component> <observation moodCode="EVN" classCode="OBS"> <templateId root="2.16.840.1.055117.10.20.22.4.2" /> <id nullFlavor="NA" /> <code codeSystem="local" code="3377-9" displayName= "Urine barbiturates detection" /> <statusCode code="completed" /> <effectiveTime value="230109768844" /> <value unit="" xsi:type="PQ " value="NEGATIVE" /> <referenceRange> <observationRange> <text>NEGATIVE</text> </observationRange> </ referenceRange> </observation> </component> <component> <observation moodCode="EVN" classCode="OBS"> <templateId root= "216.840.1.165990.10..22.4.2" /> <id nullFlavor="NA" /> < code codeSystem="local" code="" displayName="Screening urine tricyclic antidepressants detection" /> <statusCode code="completed" /> <effectiveTime value="807483357280" /> <value unit="" xsi:type="PQ" value="NEGATIVE" /> <referenceRange> <observationRange> <text>NEGATIVE</text> </observationRange> </ referenceRange> </observation> </component> <component> <observation moodCode="EVN" classCode="OBS"> <templateId root= "16.840.1.357991.10..4.2" /> <id nullFlavor="NA" /> < code codeSystem="local" code="51658-1" displayName="Urine methadone detection by screening method" /> <statusCode code="completed" /> < effectiveTime value="016539651792" /> <value unit="" xsi:type="PQ" value="NEGATIVE" /> <referenceRange> <observationRange> <text>NEGATIVE</text> </observationRange> </ referenceRange> </observation> </component> <component> <observation moodCode="EVN" classCode="OBS"> <templateId root= "06.08.840.1.075097.10..22.4.2" /> <id nullFlavor="NA" /> < code codeSystem="local" code="63051-6" displayName="Urine oxycodone detection" / > <statusCode code="completed" /> <effectiveTime value= "066663626356" /> <value unit="" xsi:type="PQ" value="NEGATIVE" /> <referenceRange> <observationRange> <text>NEGATIVE </text> </observationRange> </referenceRange> </ observation> </component> <component> <observation moodCode= "EVN" classCode="OBS"> <templateId root="2.16.840.1.731461.10.20.22.4.2 " /> <id nullFlavor="NA" /> <code codeSystem="local" code= "65649-2" displayName="Urine propoxyphene detection" /> <statusCode code="completed" /> <effectiveTime value="041886125259" /> < value unit="" xsi:type="PQ" value="NEGATIVE" /> <referenceRange> <observationRange> <text>NEGATIVE</text> </ observationRange> </referenceRange> </observation> </ component> </organizer> </entry> <entry> <organizer moodCode="EVN" classCode="BATTERY"> <templateId root="2.16.840.1.186429.10.20.22.4.1" /> <id nullFlavor="NA" /> <code codeSystem="local" code="92999-9" displayName="Complete blood count (CBC) with automated white blood cell (WBC) differential" /> <statusCode code="completed" /> <component> < observation moodCode="EVN" classCode="OBS"> <templateId root= "2.16.840.1.721422.10.20.22.4.2" /> <id nullFlavor="NA" /> < code codeSystem="local" code="6690-2" displayName="Blood leukocytes automated count (number/volume)" /> <statusCode code="completed" /> < effectiveTime value="412716806664" /> <value unit="10*3/uL" xsi:type= "PQ" value="7.0" /> <referenceRange> <observationRange> <text>4.3-11.0</text> </observationRange> </ referenceRange> </observation> </component> <component> <observation moodCode="EVN" classCode="OBS"> <templateId root= "2.16.840.1.682819.10..22.4.2" /> <id nullFlavor="NA" /> < code codeSystem="local" code="789-8" displayName="Blood erythrocytes automated count (number/volume)" /> <statusCode code="completed" /> < effectiveTime value="907504898786" /> <value unit="10*6/uL" xsi:type= "PQ" value="3.83" /> <interpretationCode codeSystem="local" code="" / > <referenceRange> <observationRange> <text> 4.35-5.85</text> </observationRange> </referenceRange> </observation> </component> <component> <observation moodCode="EVN" classCode="OBS"> <templateId root= "216.840.1.043276.10..22.4.2" /> <id nullFlavor="NA" /> < code codeSystem="local" code="02465-7" displayName="Venous blood hemoglobin measurement (mass/volume)" /> <statusCode code="completed" /> <effectiveTime value="129334667012" /> <value unit="g/dL" xsi:type="PQ " value="13.0" /> <referenceRange> <observationRange> <text>11.5-16.0</text> </observationRange> </ referenceRange> </observation> </component> <component> <observation moodCode="EVN" classCode="OBS"> <templateId root= "2.16.840.1.185927.10.20.22.4.2" /> <id nullFlavor="NA" /> < code codeSystem="local" code="95111-4" displayName="Blood hematocrit (volume fraction)" /> <statusCode code="completed" /> <effectiveTime value="667976532321" /> <value unit="%" xsi:type="PQ" value="39" / > <referenceRange> <observationRange> <text>35- 52</text> </observationRange> </referenceRange> </ observation> </component> <component> <observation moodCode= "EVN" classCode="OBS"> <templateId root="2.16.840.1.577857.10.20.22.4.2 " /> <id nullFlavor="NA" /> <code codeSystem="local" code="787 -2" displayName="Automated erythrocyte mean corpuscular volume" /> < statusCode code="completed" /> <effectiveTime value="328515162653" /> <value unit="[foz_us]" xsi:type="PQ" value="101" /> < interpretationCode codeSystem="local" code="" /> <referenceRange> <observationRange> <text>80-99</text> </ observationRange> </referenceRange> </observation> </ component> <component> <observation moodCode="EVN" classCode="OBS"> <templateId root="2.16.840.1.382360.10.20.22.4.2" /> <id nullFlavor="NA" /> <code codeSystem="local" code="785-6" displayName= "Automated erythrocyte mean corpuscular hemoglobin (mass per erythrocyte)" /> <statusCode code="completed" /> <effectiveTime value= "984923363396" /> <value unit="pg" xsi:type="PQ" value="34" /> <referenceRange> <observationRange> <text>25-34</text > </observationRange> </referenceRange> </observation > </component> <component> <observation moodCode="EVN" classCode="OBS"> <templateId root="216.840.1.005943.10.20.22.4.2" /> <id nullFlavor="NA" /> <code codeSystem="local" code="786-4" displayName="Automated erythrocyte mean corpuscular hemoglobin concentration measurement (mass/volume)" /> <statusCode code="completed" /> <effectiveTime value="307925245305" /> <value unit="g/dL" xsi:type="PQ " value="34" /> <referenceRange> <observationRange> <text>32-36</text> </observationRange> </ referenceRange> </observation> </component> <component> <observation moodCode="EVN" classCode="OBS"> <templateId root= "16.840.1.545200.10.20.22.4.2" /> <id nullFlavor="NA" /> < code codeSystem="local" code="788-0" displayName="Automated erythrocyte distribution width ratio" /> <statusCode code="completed" /> < effectiveTime value="528133339329" /> <value unit="%" xsi:type="PQ " value="13.2" /> <referenceRange> <observationRange> <text>10.0-14.5</text> </observationRange> </ referenceRange> </observation> </component> <component> <observation moodCode="EVN" classCode="OBS"> <templateId root= "16.840.1.599766.10.20.22.4.2" /> <id nullFlavor="NA" /> < code codeSystem="local" code="777-3" displayName="Automated blood platelet count (count/volume)" /> <statusCode code="completed" /> < effectiveTime value="953286436085" /> <value unit="10*3/uL" xsi:type= "PQ" value="414" /> <interpretationCode codeSystem="local" code="" / > <referenceRange> <observationRange> <text>130 -400</text> </observationRange> </referenceRange> </ observation> </component> <component> <observation moodCode= "EVN" classCode="OBS"> <templateId root="216.840.1.197176.10.20.22.4.2 " /> <id nullFlavor="NA" /> <code codeSystem="local" code= "40849-7" displayName="Automated blood platelet mean volume measurement" /> <statusCode code="completed" /> <effectiveTime value= "718477105904" /> <value unit="[fo_us]" xsi:type="PQ" value="8.0" /> <referenceRange> <observationRange> <text>7.4- 10.4</text> </observationRange> </referenceRange> </ observation> </component> <component> <observation moodCode= "EVN" classCode="OBS"> <templateId root="06.08.840.1.093859..22.4.2 " /> <id nullFlavor="NA" /> <code codeSystem="local" code="770 -8" displayName="Automated blood neutrophils/100 leukocytes" /> < statusCode code="completed" /> <effectiveTime value="588017721657" /> <value unit="%" xsi:type="PQ" value="66" /> < referenceRange> <observationRange> <text>42-75</text> </observationRange> </referenceRange> </observation> </component> <component> <observation moodCode="EVN" classCode= "OBS"> <templateId root="216.840.1.771593.10.20.22.4.2" /> < id nullFlavor="NA" /> <code codeSystem="local" code="736-9" displayName ="Automated blood lymphocytes/100 leukocytes" /> <statusCode code= "completed" /> <effectiveTime value="962940796804" /> <value unit="%" xsi:type="PQ" value="24" /> <referenceRange> < observationRange> <text>12-44</text> </observationRange > </referenceRange> </observation> </component> < component> <observation moodCode="EVN" classCode="OBS"> < templateId root="2.16.840.1.025253.10.20.22.4.2" /> <id nullFlavor="NA " /> <code codeSystem="local" code="45686-6" displayName="Blood monocytes/100 leukocytes" /> <statusCode code="completed" /> < effectiveTime value="037345488105" /> <value unit="%" xsi:type="PQ " value="8" /> <referenceRange> <observationRange> <text>0-12</text> </observationRange> </referenceRange > </observation> </component> <component> <observation moodCode="EVN" classCode="OBS"> <templateId root= "2.16.840.1.120689.10.20.22.4.2" /> <id nullFlavor="NA" /> < code codeSystem="local" code="713-8" displayName="Automated blood eosinophils/ 100 leukocytes" /> <statusCode code="completed" /> < effectiveTime value="791663808081" /> <value unit="%" xsi:type="PQ " value="1" /> <referenceRange> <observationRange> <text>0-10</text> </observationRange> </referenceRange > </observation> </component> <component> <observation moodCode="EVN" classCode="OBS"> <templateId root= "216.840.1.495601.10.20.22.4.2" /> <id nullFlavor="NA" /> < code codeSystem="local" code="706-2" displayName="Automated blood basophils/100 leukocytes" /> <statusCode code="completed" /> <effectiveTime value="494718208449" /> <value unit="%" xsi:type="PQ" value="0" /> <referenceRange> <observationRange> <text>0-10 </text> </observationRange> </referenceRange> </ observation> </component> <component> <observation moodCode= "EVN" classCode="OBS"> <templateId root="16.840.1.086544.10..22.4.2 " /> <id nullFlavor="NA" /> <code codeSystem="local" code="751 -8" displayName="Blood neutrophils automated count (number/volume)" /> <statusCode code="completed" /> <effectiveTime value="142541793440" /> <value unit="10*3" xsi:type="PQ" value="4.7" /> < referenceRange> <observationRange> <text>1.8-7.8</text> </observationRange> </referenceRange> </observation > </component> <component> <observation moodCode="EVN" classCode="OBS"> <templateId root="16.840.1.426918.10.20.22.4.2" /> <id nullFlavor="NA" /> <code codeSystem="local" code="731-0" displayName="Blood lymphocytes automated count (number/volume)" /> < statusCode code="completed" /> <effectiveTime value="810686017801" /> <value unit="10*3" xsi:type="PQ" value="1.7" /> < referenceRange> <observationRange> <text>1.0-4.0</text> </observationRange> </referenceRange> </observation > </component> <component> <observation moodCode="EVN" classCode="OBS"> <templateId root="216.840.1.612038.10.20.22.4.2" /> <id nullFlavor="NA" /> <code codeSystem="local" code="742-7" displayName="Blood monocytes automated count (number/volume)" /> < statusCode code="completed" /> <effectiveTime value="580330329489" /> <value unit="10*3" xsi:type="PQ" value="0.6" /> < referenceRange> <observationRange> <text>0.0-1.0</text> </observationRange> </referenceRange> </observation > </component> <component> <observation moodCode="EVN" classCode="OBS"> <templateId root="16.840.1.572850.10..4.2" /> <id nullFlavor="NA" /> <code codeSystem="local" code="711-2" displayName="Automated eosinophil count" /> <statusCode code="completed " /> <effectiveTime value="997880254046" /> <value unit="10*3/ uL" xsi:type="PQ" value="0.1" /> <referenceRange> < observationRange> <text>0.0-0.3</text> </ observationRange> </referenceRange> </observation> </ component> <component> <observation moodCode="EVN" classCode="OBS"> <templateId root="16.840.1.454599.10.20.22.4.2" /> <id nullFlavor="NA" /> <code codeSystem="local" code="704-7" displayName= "Automated blood basophil count (count/volume)" /> <statusCode code= "completed" /> <effectiveTime value="908866809916" /> <value unit="10*3/uL" xsi:type="PQ" value="0.0" /> <referenceRange> <observationRange> <text>0.0-0.1</text> </ observationRange> </referenceRange> </observation> </ component> </organizer> </entry> <entry> <organizer moodCode="EVN" classCode="BATTERY"> <templateId root="2.16.840.1.486864.10.20.22.4.1" /> <id nullFlavor="NA" /> <code codeSystem="local" code="67267-0" displayName="Comprehensive metabolic panel" /> <statusCode code="completed " /> <component> <observation moodCode="EVN" classCode="OBS"> <templateId root="2.16.840.1.463866.10.20.22.4.2" /> <id nullFlavor ="NA" /> <code codeSystem="local" code="2951-2" displayName="Serum or plasma sodium measurement (moles/volume)" /> <statusCode code= "completed" /> <effectiveTime value="822146479860" /> <value unit="mmol/L" xsi:type="PQ" value="138" /> <referenceRange> <observationRange> <text>135-145</text> </ observationRange> </referenceRange> </observation> </ component> <component> <observation moodCode="EVN" classCode="OBS"> <templateId root="2.16.840.1.869835.10.20.22.4.2" /> <id nullFlavor="NA" /> <code codeSystem="local" code="2823-" displayName= "Serum or plasma potassium measurement (moles/volume)" /> <statusCode code="completed" /> <effectiveTime value="768442288596" /> < value unit="mmol/L" xsi:type="PQ" value="4.0" /> <referenceRange> <observationRange> <text>3.6-5.0</text> </ observationRange> </referenceRange> </observation> </ component> <component> <observation moodCode="EVN" classCode="OBS"> <templateId root="2.16.840.1.772288.10.20.22.4.2" /> <id nullFlavor="NA" /> <code codeSystem="local" code="" displayName= "Serum or plasma chloride measurement (moles/volume)" /> <statusCode code="completed" /> <effectiveTime value="218150353094" /> < value unit="mmol/L" xsi:type="PQ" value="106" /> <referenceRange> <observationRange> <text>98-107</text> </ observationRange> </referenceRange> </observation> </ component> <component> <observation moodCode="EVN" classCode="OBS"> <templateId root="2.16.840.1.091125.10.20.22.4.2" /> <id nullFlavor="NA" /> <code codeSystem="local" code="2027-12" displayName= "Carbon dioxide" /> <statusCode code="completed" /> < effectiveTime value="681204189744" /> <value unit="mmol/L" xsi:type="PQ " value="25" /> <referenceRange> <observationRange> <text>21-32</text> </observationRange> </ referenceRange> </observation> </component> <component> <observation moodCode="EVN" classCode="OBS"> <templateId root= "2.16.840.1.306863.10.20.22.4.2" /> <id nullFlavor="NA" /> < code codeSystem="local" code="14676-2" displayName="Serum or plasma anion gap determination (moles/volume)" /> <statusCode code="completed" /> <effectiveTime value="523559989254" /> <value unit="mmol/L" xsi: type="PQ" value="7" /> <referenceRange> <observationRange> <text>5-14</text> </observationRange> </ referenceRange> </observation> </component> <component> <observation moodCode="EVN" classCode="OBS"> <templateId root= "2.16.840.1.077389.10..22.4.2" /> <id nullFlavor="NA" /> < code codeSystem="local" code="3094-0" displayName="Serum or plasma urea nitrogen measurement (mass/volume)" /> <statusCode code="completed" /> <effectiveTime value="055212737265" /> <value unit="mg/dL" xsi:type="PQ" value="9" /> <referenceRange> < observationRange> <text>7-18</text> </observationRange> </referenceRange> </observation> </component> < component> <observation moodCode="EVN" classCode="OBS"> < templateId root="2.16.840.1.222297.10.20.22.4.2" /> <id nullFlavor="NA " /> <code codeSystem="local" code="2160-0" displayName="Serum or plasma creatinine measurement (mass/volume)" /> <statusCode code= "completed" /> <effectiveTime value="045244265414" /> <value unit="mg/dL" xsi:type="PQ" value="0.67" /> <referenceRange> <observationRange> <text>0.60-1.30</text> </ observationRange> </referenceRange> </observation> </ component> <component> <observation moodCode="EVN" classCode="OBS"> <templateId root="216.840.1.717053.10.20.22.4.2" /> <id nullFlavor="NA" /> <code codeSystem="local" code="3097-3" displayName= "Serum or plasma urea nitrogen/creatinine mass ratio" /> <statusCode code="completed" /> <effectiveTime value="330160381105" /> < value unit="" xsi:type="PQ" value="13" /> <referenceRange> < observationRange> <text>NRG</text> </observationRange> </referenceRange> </observation> </component> < component> <observation moodCode="EVN" classCode="OBS"> < templateId root="16.840.1.265578.10..22.4.2" /> <id nullFlavor="NA " /> <code codeSystem="local" code="09208-0" displayName="Serum or plasma creatinine measurement with calculation of estimated glomerular filtration rate" /> <statusCode code="completed" /> < effectiveTime value="802932038899" /> <value unit="" xsi:type="PQ" value=">" /> <referenceRange> <observationRange> <text>NRG</text> </observationRange> </referenceRange > </observation> </component> <component> <observation moodCode="EVN" classCode="OBS"> <templateId root= "06.08.840.1.097050.10.20.22.4.2" /> <id nullFlavor="NA" /> < code codeSystem="local" code="2345-7" displayName="Serum or plasma glucose measurement (mass/volume)" /> <statusCode code="completed" /> <effectiveTime value="519925643984" /> <value unit="mg/dL" xsi:type="PQ " value="92" /> <referenceRange> <observationRange> <text>70-105</text> </observationRange> </ referenceRange> </observation> </component> <component> <observation moodCode="EVN" classCode="OBS"> <templateId root= "2.16.840.1.485497.10.20.22.4.2" /> <id nullFlavor="NA" /> < code codeSystem="local" code="95773-4" displayName="Serum or plasma calcium measurement (mass/volume)" /> <statusCode code="completed" /> <effectiveTime value="071937639186" /> <value unit="mg/dL" xsi:type="PQ " value="9.4" /> <referenceRange> <observationRange> <text>8.5-10.1</text> </observationRange> </ referenceRange> </observation> </component> <component> <observation moodCode="EVN" classCode="OBS"> <templateId root= "2.16.840.1.445689.10.20.22.4.2" /> <id nullFlavor="NA" /> < code codeSystem="local" code="1974-05" displayName="Serum or plasma total bilirubin measurement (mass/volume)" /> <statusCode code="completed" / > <effectiveTime value="183655871707" /> <value unit="mg/dL" xsi:type="PQ" value="0.4" /> <referenceRange> < observationRange> <text>0.1-1.0</text> </ observationRange> </referenceRange> </observation> </ component> <component> <observation moodCode="EVN" classCode="OBS"> <templateId root="2.16.840.1.309344.10.20.22.4.2" /> <id nullFlavor="NA" /> <code codeSystem="local" code="6768-6" displayName= "Serum or plasma alkaline phosphatase measurement (enzymatic activity/volume)" / > <statusCode code="completed" /> <effectiveTime value= "896470108997" /> <value unit="U/L" xsi:type="PQ" value="57" /> <referenceRange> <observationRange> <text>40-136</ text> </observationRange> </referenceRange> </ observation> </component> <component> <observation moodCode= "EVN" classCode="OBS"> <templateId root="216.840.1.237180.10..22.4.2 " /> <id nullFlavor="NA" /> <code codeSystem="local" code= "192" displayName="Serum or plasma aspartate aminotransferase measurement ( enzymatic activity/volume)" /> <statusCode code="completed" /> <effectiveTime value="537682536392" /> <value unit="U/L" xsi:type="PQ " value="16" /> <referenceRange> <observationRange> <text>5-34</text> </observationRange> </referenceRange > </observation> </component> <component> <observation moodCode="EVN" classCode="OBS"> <templateId root= "16.840.1.198000.10.20.22.4.2" /> <id nullFlavor="NA" /> < code codeSystem="local" code="17405-29" displayName="Serum or plasma alanine aminotransferase measurement (enzymatic activity/volume)" /> < statusCode code="completed" /> <effectiveTime value="588567885147" /> <value unit="U/L" xsi:type="PQ" value="13" /> <referenceRange > <observationRange> <text>0-55</text> </ observationRange> </referenceRange> </observation> </ component> <component> <observation moodCode="EVN" classCode="OBS"> <templateId root="2.16.840.1.548978.10..22.4.2" /> <id nullFlavor="NA" /> <code codeSystem="local" code="2885-2" displayName= "Serum or plasma protein measurement (mass/volume)" /> <statusCode code ="completed" /> <effectiveTime value="361512190429" /> <value unit="g/dL" xsi:type="PQ" value="7.8" /> <referenceRange> < observationRange> <text>6.4-8.2</text> </ observationRange> </referenceRange> </observation> </ component> <component> <observation moodCode="EVN" classCode="OBS"> <templateId root="16.840.1.636508.10...4.2" /> <id nullFlavor="NA" /> <code codeSystem="local" code="1751-7" displayName= "Serum or plasma albumin measurement (mass/volume)" /> <statusCode code ="completed" /> <effectiveTime value="404941767454" /> <value unit="g/dL" xsi:type="PQ" value="4.6" /> <interpretationCode codeSystem ="local" code="" /> <referenceRange> <observationRange> <text>3.2-4.5</text> </observationRange> </ referenceRange> </observation> </component> </organizer> </entry > <entry> <organizer moodCode="EVN" classCode="BATTERY"> <templateId root="216.840.1.488366.10..4.1" /> <id nullFlavor="NA" /> <code codeSystem="local" code="3039-06" displayName="Lipase" /> <statusCode code= "completed" /> <component> <observation moodCode="EVN" classCode= "OBS"> <templateId root="216.840.1.811665.10...4.2" /> < id nullFlavor="NA" /> <code codeSystem="local" code="3039-06" displayName="Lipase" /> <statusCode code="completed" /> < effectiveTime value="017599639308" /> <value unit="U/L" xsi:type="PQ" value="13" /> <referenceRange> <observationRange> <text>8</text> </observationRange> </referenceRange> </observation> </component> </organizer> </entry> <entry> < organizer moodCode="EVN" classCode="BATTERY"> <templateId root= "216.840.1.789442.10...4.1" /> <id nullFlavor="NA" /> <code codeSystem="local" code="1987-08" displayName="Serum or plasma C reactive protein measurement (mass/volume)" /> <statusCode code="completed" /> <component> <observation moodCode="EVN" classCode="OBS"> < templateId root="216.840.1.830229.10..22.4.2" /> <id nullFlavor="NA " /> <code codeSystem="local" code="1987-08" displayName="Serum or plasma C reactive protein measurement (mass/volume)" /> <statusCode code="completed" /> <effectiveTime value="762177301138" /> < value unit="mg/dL" xsi:type="PQ" value="0.04" /> <referenceRange> <observationRange> <text>0.00-0.50</text> </ observationRange> </referenceRange> </observation> </ component> </organizer> </entry> <entry> <organizer moodCode="EVN" classCode="BATTERY"> <templateId root="216.840.1.372209.10.20.22.4.1" /> <id nullFlavor="NA" /> <code codeSystem="local" code="5643-2" displayName="Serum or plasma ethanol measurement (mass/volume)" /> < statusCode code="completed" /> <component> <observation moodCode= "EVN" classCode="OBS"> <templateId root="2.16.840.1.782797.10.20.22.4.2 " /> <id nullFlavor="NA" /> <code codeSystem="local" code= "5643-2" displayName="Serum or plasma ethanol measurement (mass/volume)" /> <statusCode code="completed" /> <effectiveTime value= "219104817801" /> <value unit="mg/dL" xsi:type="PQ" value="<" /> <referenceRange> <observationRange> <text><10< /text> </observationRange> </referenceRange> </ observation> </component> </organizer> </entry> <entry> <organizer moodCode="EVN" classCode="BATTERY"> <templateId root= "216.840.1.266231.10.20.22.4.1" /> <id nullFlavor="NA" /> <code codeSystem="local" code="971186" displayName="Ct, Ng, Trich vag by AV" /> <statusCode code="completed" /> <component> <observation moodCode= "EVN" classCode="OBS"> <templateId root="216.840.1.951879.02.09.22.4.2 " /> <id nullFlavor="NA" /> <code codeSystem="local" code= "805557" displayName="Trich vag by AV" /> <statusCode code="completed " /> <effectiveTime value="278563519441" /> <value unit="" xsi :type="PQ" value="TNP" /> <referenceRange> <observationRange > <text /> </observationRange> </referenceRange > </observation> </component> <component> <observation moodCode="EVN" classCode="OBS"> <templateId root= "216.840.1.134591.02.09.22.4.2" /> <id nullFlavor="NA" /> < code codeSystem="local" code="046662" displayName="Chlamydia by AV" /> <statusCode code="completed" /> <effectiveTime value="" / > <value unit="" xsi:type="PQ" value="TNP" /> <referenceRange > <observationRange> <text /> </ observationRange> </referenceRange> </observation> </ component> <component> <observation moodCode="EVN" classCode="OBS"> <templateId root="2.16.840.1.719231.02.09.22.4.2" /> <id nullFlavor="NA" /> <code codeSystem="local" code="286647" displayName= "Gonococcus by AV" /> <statusCode code="completed" /> < effectiveTime value="265642088845" /> <value unit="" xsi:type="PQ" value="TNP" /> <referenceRange> <observationRange> <text /> </observationRange> </referenceRange> < /observation> </component> </organizer> </entry> <entry> < organizer moodCode="EVN" classCode="BATTERY"> <templateId root= "840.1.070635.02.09.22.4.1" /> <id nullFlavor="NA" /> <code codeSystem="local" code="ORD40" displayName="Thyroid Stimulating Hormone" /> <statusCode code="completed" /> <component> <observation moodCode ="EVN" classCode="OBS"> <templateId root= "840.1.376638.02.09.224.2" /> <id nullFlavor="NA" /> < code codeSystem="local" code="Res34" displayName="TSH" /> <statusCode code="completed" /> <effectiveTime value="" /> < value unit="mIU/mL" xsi:type="PQ" value="1.36" /> <referenceRange> <observationRange> <text>0.32-5.00</text> </ observationRange> </referenceRange> </observation> </ component> </organizer> </entry> <entry> <organizer moodCode="EVN" classCode="BATTERY"> <templateId root="840.1.614383.02.09.22.4.1" /> <id nullFlavor="NA" /> <code codeSystem="local" code="IQB4862" displayName="Urine Culture" /> <statusCode code="completed" /> < component> <observation moodCode="EVN" classCode="OBS"> < templateId root="840.1.106084.02.09.22.4.2" /> <id nullFlavor="NA " /> <code codeSystem="local" code="Len4289" displayName="MEDIA PLATED " /> <statusCode code="completed" /> <effectiveTime value= "" /> <value unit="" xsi:type="PQ" value="Setup at 15:06 on 12/14/2017" /> <referenceRange> <observationRange> <text /> </observationRange> </referenceRange> </observation> </component> <component> <observation moodCode ="EVN" classCode="OBS"> <templateId root= "216.840.1.042483.10..22.4.2" /> <id nullFlavor="NA" /> < code codeSystem="local" code="Cxy7642" displayName="CULTURE SOURCE" /> <statusCode code="completed" /> <effectiveTime value="" /> <value unit="" xsi:type="PQ" value="clean [id number]\\" /> < referenceRange> <observationRange> <text /> < /observationRange> </referenceRange> </observation> </ component> </organizer> </entry> <entry> <organizer moodCode="EVN" classCode="BATTERY"> <templateId root="216.840.1.369668.10..22.4.1" /> <id nullFlavor="NA" /> <code codeSystem="local" code="Xxj67543" displayName="Sensi" /> <statusCode code="completed" /> <component> <observation moodCode="EVN" classCode="OBS"> <templateId root= "216.840.1.427905.10..22.4.2" /> <id nullFlavor="NA" /> < code codeSystem="local" code="Mwg02675" displayName="FINAL CULTURE RESULTS" /> <statusCode code="completed" /> <effectiveTime value= "971246588183" /> <value unit="" xsi:type="PQ" value="Escherichia coli (Isolate 1)" /> <referenceRange> <observationRange> <text /> </observationRange> </referenceRange> </observation> </component> <component> <observation moodCode= "EVN" classCode="OBS"> <templateId root="216.840.1.296253.10...4.2 " /> <id nullFlavor="NA" /> <code codeSystem="local" code= "Hly7250" displayName="Ampicillin/Sulbactam" /> <statusCode code= "completed" /> <effectiveTime value="244553846158" /> <value unit="" xsi:type="PQ" value="<=8/4" /> <interpretationCode codeSystem="local" code="S" /> <referenceRange> < observationRange> <text /> </observationRange> </referenceRange> </observation> </component> <component> <observation moodCode="EVN" classCode="OBS"> <templateId root= "216.840.1.366966.02.09.22.4.2" /> <id nullFlavor="NA" /> < code codeSystem="local" code="Ynv5481" displayName="Ampicillin" /> < statusCode code="completed" /> <effectiveTime value="579234076919" /> <value unit="" xsi:type="PQ" value="<=8" /> < interpretationCode codeSystem="local" code="S" /> <referenceRange> <observationRange> <text /> </observationRange> </referenceRange> </observation> </component> < component> <observation moodCode="EVN" classCode="OBS"> < templateId root="216.840.1.075608.10...4.2" /> <id nullFlavor="NA " /> <code codeSystem="local" code="Szg7979" displayName="Amoxicillin/ K Clavulanate" /> <statusCode code="completed" /> < effectiveTime value="294656487702" /> <value unit="" xsi:type="PQ" value="<=8/4" /> <interpretationCode codeSystem="local" code="S" /> <referenceRange> <observationRange> <text /> </observationRange> </referenceRange> </observation> </component> <component> <observation moodCode="EVN" classCode ="OBS"> <templateId root="16.840.1.617017.10..22.4.2" /> < id nullFlavor="NA" /> <code codeSystem="local" code="Wza8830" displayName="Ceftriaxone" /> <statusCode code="completed" /> < effectiveTime value="862235221248" /> <value unit="" xsi:type="PQ" value="<=8" /> <interpretationCode codeSystem="local" code="S" /> <referenceRange> <observationRange> <text /> </observationRange> </referenceRange> </observation> </component> <component> <observation moodCode="EVN" classCode= "OBS"> <templateId root="16.840.1.129136.10...4.2" /> < id nullFlavor="NA" /> <code codeSystem="local" code="Dbr5842" displayName="Ciprofloxacin" /> <statusCode code="completed" /> <effectiveTime value="549418546180" /> <value unit="" xsi:type="PQ" value="<=1" /> <interpretationCode codeSystem="local" code="S" /> <referenceRange> <observationRange> <text /> </observationRange> </referenceRange> </observation> </component> <component> <observation moodCode="EVN" classCode= "OBS"> <templateId root="06.08.840.1.377727.10..22.4.2" /> < id nullFlavor="NA" /> <code codeSystem="local" code="Ayu4358" displayName="Nitrofurantoin" /> <statusCode code="completed" /> <effectiveTime value="" /> <value unit="" xsi:type="PQ" value="<=32" /> <interpretationCode codeSystem="local" code="S" /> <referenceRange> <observationRange> <text /> </observationRange> </referenceRange> </observation> </component> <component> <observation moodCode="EVN" classCode= "OBS"> <templateId root="06.08.840.1.082488.10.4.2" /> < id nullFlavor="NA" /> <code codeSystem="local" code="Wzr5591" displayName="Gentamicin" /> <statusCode code="completed" /> < effectiveTime value="" /> <value unit="" xsi:type="PQ" value="<=4" /> <interpretationCode codeSystem="local" code="S" /> <referenceRange> <observationRange> <text /> </observationRange> </referenceRange> </observation> </component> <component> <observation moodCode="EVN" classCode= "OBS"> <templateId root="06.08.840.1.736047.10..22.4.2" /> < id nullFlavor="NA" /> <code codeSystem="local" code="Nph1924" displayName="Levofloxacin" /> <statusCode code="completed" /> <effectiveTime value="[id number]" /> <value unit="" xsi:type="PQ" value="<=2" /> <interpretationCode codeSystem="local" code="S" /> <referenceRange> <observationRange> <text /> </observationRange> </referenceRange> </observation> </component> <component> <observation moodCode="EVN" classCode= "OBS"> <templateId root="16.840.1.643772.10.20.22.4.2" /> < id nullFlavor="NA" /> <code codeSystem="local" code="[id number]" displayName="Trimethoprim/ Sulfamethoxazole" /> <statusCode code= "completed" /> <effectiveTime value="091184248037" /> <value unit="" xsi:type="PQ" value="<=2" /> <interpretationCode codeSystem="local" code="S" /> <referenceRange> < observationRange> <text /> </observationRange> </referenceRange> </observation> </component> <component> <observation moodCode="EVN" classCode="OBS"> <templateId root= "06.08.840.1.952204.10..4.2" /> <id nullFlavor="NA" /> < code codeSystem="local" code="Lpc7768" displayName="Tetracycline" /> < statusCode code="completed" /> <effectiveTime value="" /> <value unit="" xsi:type="PQ" value="<=4" /> < interpretationCode codeSystem="local" code="S" /> <referenceRange> <observationRange> <text /> </observationRange> </referenceRange> </observation> </component> < component> <observation moodCode="EVN" classCode="OBS"> < templateId root="06.08.840.1.421118.10.20.22.4.2" /> <id nullFlavor="NA " /> <code codeSystem="local" code="Asg3561" displayName="Amikacin" /> <statusCode code="completed" /> <effectiveTime value= "045687505198" /> <value unit="" xsi:type="PQ" value="<=16" /> <interpretationCode codeSystem="local" code="S" /> <referenceRange > <observationRange> <text /> </ observationRange> </referenceRange> </observation> </ component> <component> <observation moodCode="EVN" classCode="OBS"> <templateId root="216.840.1.165726.10..22.4.2" /> <id nullFlavor="NA" /> <code codeSystem="local" code="Knx9769" displayName= "Aztreonam" /> <statusCode code="completed" /> <effectiveTime value="451359829156" /> <value unit="" xsi:type="PQ" value="<=8" /> <interpretationCode codeSystem="local" code="S" /> < referenceRange> <observationRange> <text /> < /observationRange> </referenceRange> </observation> </ component> <component> <observation moodCode="EVN" classCode="OBS"> <templateId root="216.840.1.612267.10..22.4.2" /> <id nullFlavor="NA" /> <code codeSystem="local" code="Uue1392" displayName= "Ceftazidime" /> <statusCode code="completed" /> < effectiveTime value="802834826295" /> <value unit="" xsi:type="PQ" value="<=1" /> <interpretationCode codeSystem="local" code="S" /> <referenceRange> <observationRange> <text /> </observationRange> </referenceRange> </observation> </component> <component> <observation moodCode="EVN" classCode= "OBS"> <templateId root="16.840.1.411613.10..22.4.2" /> < id nullFlavor="NA" /> <code codeSystem="local" code="Sru6529" displayName="Ceftazidime/K Clavulanate" /> <statusCode code="completed " /> <effectiveTime value="" /> <value unit="" xsi :type="PQ" value="<=0.25" /> <referenceRange> < observationRange> <text /> </observationRange> </referenceRange> </observation> </component> <component> <observation moodCode="EVN" classCode="OBS"> <templateId root= "06.08.840.1.884288.10..4.2" /> <id nullFlavor="NA" /> < code codeSystem="local" code="Grp0166" displayName="Cephalothin" /> < statusCode code="completed" /> <effectiveTime value="" /> <value unit="" xsi:type="PQ" value="16" /> < interpretationCode codeSystem="local" code="I" /> <referenceRange> <observationRange> <text /> </observationRange> </referenceRange> </observation> </component> < component> <observation moodCode="EVN" classCode="OBS"> < templateId root="16.840.1.154618.10...4.2" /> <id nullFlavor="NA " /> <code codeSystem="local" code="Nzw6811" displayName="Cefotaxime" / > <statusCode code="completed" /> <effectiveTime value= "" /> <value unit="" xsi:type="PQ" value="<=2" /> <interpretationCode codeSystem="local" code="S" /> <referenceRange > <observationRange> <text /> </ observationRange> </referenceRange> </observation> </ component> <component> <observation moodCode="EVN" classCode="OBS"> <templateId root="16.840.1.034740.10..22.4.2" /> <id nullFlavor="NA" /> <code codeSystem="local" code="Gtf9166" displayName= "Cefotaxime/K Clavulanate" /> <statusCode code="completed" /> <effectiveTime value="" /> <value unit="" xsi:type="PQ" value="<=0.5" /> <referenceRange> <observationRange> <text /> </observationRange> </referenceRange> </observation> </component> <component> <observation moodCode="EVN" classCode="OBS"> <templateId root= "06.08.840.1.873942.10...4.2" /> <id nullFlavor="NA" /> < code codeSystem="local" code="Qnr4546" displayName="Cefoxitin" /> < statusCode code="completed" /> <effectiveTime value="" /> <value unit="" xsi:type="PQ" value="<=8" /> < interpretationCode codeSystem="local" code="S" /> <referenceRange> <observationRange> <text /> </observationRange> </referenceRange> </observation> </component> < component> <observation moodCode="EVN" classCode="OBS"> < templateId root="16.840.1.230643.10.20.22.4.2" /> <id nullFlavor="NA " /> <code codeSystem="local" code="Uwb8226" displayName="Cefazolin" / > <statusCode code="completed" /> <effectiveTime value= "255910818428" /> <value unit="" xsi:type="PQ" value="<=8" /> <interpretationCode codeSystem="local" code="S" /> <referenceRange > <observationRange> <text /> </ observationRange> </referenceRange> </observation> </ component> <component> <observation moodCode="EVN" classCode="OBS"> <templateId root="216.840.1.259715.10.20.22.4.2" /> <id nullFlavor="NA" /> <code codeSystem="local" code="Opg1071" displayName= "Cefepime" /> <statusCode code="completed" /> <effectiveTime value="369167370862" /> <value unit="" xsi:type="PQ" value="<=8" /> <interpretationCode codeSystem="local" code="S" /> < referenceRange> <observationRange> <text /> < /observationRange> </referenceRange> </observation> </ component> <component> <observation moodCode="EVN" classCode="OBS"> <templateId root="216.840.1.846280.10..22.4.2" /> <id nullFlavor="NA" /> <code codeSystem="local" code="Vvw5092" displayName= "Cefuroxime" /> <statusCode code="completed" /> < effectiveTime value="214614164758" /> <value unit="" xsi:type="PQ" value="<=4" /> <interpretationCode codeSystem="local" code="S" /> <referenceRange> <observationRange> <text /> </observationRange> </referenceRange> </observation> </component> <component> <observation moodCode="EVN" classCode= "OBS"> <templateId root="16.840.1.061644.10.20.22.4.2" /> < id nullFlavor="NA" /> <code codeSystem="local" code="Nxc7022" displayName="Ertapenem" /> <statusCode code="completed" /> < effectiveTime value="" /> <value unit="" xsi:type="PQ" value="<=1" /> <interpretationCode codeSystem="local" code="S" /> <referenceRange> <observationRange> <text /> </observationRange> </referenceRange> </observation> </component> <component> <observation moodCode="EVN" classCode= "OBS"> <templateId root="16.840.1.327914.10.4.2" /> < id nullFlavor="NA" /> <code codeSystem="local" code="Rva7113" displayName="Imipenem" /> <statusCode code="completed" /> < effectiveTime value="" /> <value unit="" xsi:type="PQ" value="<=4" /> <interpretationCode codeSystem="local" code="S" /> <referenceRange> <observationRange> <text /> </observationRange> </referenceRange> </observation> </component> <component> <observation moodCode="EVN" classCode= "OBS"> <templateId root="16.840.1.659378.10.2022.4.2" /> < id nullFlavor="NA" /> <code codeSystem="local" code="Okp4700" displayName="Meropenem" /> <statusCode code="completed" /> < effectiveTime value="" /> <value unit="" xsi:type="PQ" value="<=4" /> <interpretationCode codeSystem="local" code="S" /> <referenceRange> <observationRange> <text /> </observationRange> </referenceRange> </observation> </component> <component> <observation moodCode="EVN" classCode= "OBS"> <templateId root="216.840.1.683732.10.20.22.4.2" /> < id nullFlavor="NA" /> <code codeSystem="local" code="Pkg7202" displayName="Piperacillin/Tazobactam" /> <statusCode code="completed" / > <effectiveTime value="138290278457" /> <value unit="" xsi: type="PQ" value="<=16" /> <interpretationCode codeSystem="local" code="S" /> <referenceRange> <observationRange> <text /> </observationRange> </referenceRange> </ observation> </component> <component> <observation moodCode= "EVN" classCode="OBS"> <templateId root="06.08.840.1.141305...4.2 " /> <id nullFlavor="NA" /> <code codeSystem="local" code= "Vnf5113" displayName="Piperacillin" /> <statusCode code="completed" / > <effectiveTime value="016179750483" /> <value unit="" xsi: type="PQ" value="<=16" /> <interpretationCode codeSystem="local" code="S" /> <referenceRange> <observationRange> <text /> </observationRange> </referenceRange> </ observation> </component> <component> <observation moodCode= "EVN" classCode="OBS"> <templateId root="216.840.1.887901.10..22.4.2 " /> <id nullFlavor="NA" /> <code codeSystem="local" code= "Bcl6068" displayName="Tigecycline" /> <statusCode code="completed" /> <effectiveTime value="" /> <value unit="" xsi: type="PQ" value="<=2" /> <interpretationCode codeSystem="local" code ="S" /> <referenceRange> <observationRange> < text /> </observationRange> </referenceRange> </ observation> </component> <component> <observation moodCode= "EVN" classCode="OBS"> <templateId root="840.1.506619.02.09.22.4.2 " /> <id nullFlavor="NA" /> <code codeSystem="local" code= "Jyc5805" displayName="Tobramycin" /> <statusCode code="completed" /> <effectiveTime value="" /> <value unit="" xsi:type ="PQ" value="<=4" /> <interpretationCode codeSystem="local" code="S " /> <referenceRange> <observationRange> <text /> </observationRange> </referenceRange> </ observation> </component> </organizer> </entry> <entry> <organizer moodCode="EVN" classCode="BATTERY"> <templateId root= "840.1.228239.1022.4.1" /> <id nullFlavor="NA" /> <code codeSystem="local" code="01945-5" displayName="Complete urinalysis with reflex to culture" /> <statusCode code="completed" /> <component> < observation moodCode="EVN" classCode="OBS"> <templateId root= "840.1.963793.22.4.2" /> <id nullFlavor="NA" /> < code codeSystem="local" code="5778-6" displayName="Urine color determination" / > <statusCode code="completed" /> <effectiveTime value= "210840836768" /> <value unit="" xsi:type="PQ" value="YELLOW" /> <referenceRange> <observationRange> <text>NRG</text > </observationRange> </referenceRange> </observation > </component> <component> <observation moodCode="EVN" classCode="OBS"> <templateId root="216.840.1.643007.10.20.22.4.2" /> <id nullFlavor="NA" /> <code codeSystem="local" code="95429-4 " displayName="Urine clarity determination" /> <statusCode code= "completed" /> <effectiveTime value="034427668981" /> <value unit="" xsi:type="PQ" value="CLEAR" /> <referenceRange> < observationRange> <text>NRG</text> </observationRange> </referenceRange> </observation> </component> < component> <observation moodCode="EVN" classCode="OBS"> < templateId root="216.840.1.405192.10.20.22.4.2" /> <id nullFlavor="NA " /> <code codeSystem="local" code="5803-2" displayName="Urine pH measurement by test strip" /> <statusCode code="completed" /> <effectiveTime value="143029188630" /> <value unit="" xsi:type="PQ" value="6" /> <referenceRange> <observationRange> <text>5-9</text> </observationRange> </referenceRange> </observation> </component> <component> <observation moodCode="EVN" classCode="OBS"> <templateId root= "216.840.1.270574.10.22.4.2" /> <id nullFlavor="NA" /> < code codeSystem="local" code="5811-5" displayName="Specific gravity of urine by test strip" /> <statusCode code="completed" /> <effectiveTime value="660552503933" /> <value unit="" xsi:type="PQ" value="1.015" /> <interpretationCode codeSystem="local" code="" /> < referenceRange> <observationRange> <text>1.016-1.022</ text> </observationRange> </referenceRange> </ observation> </component> <component> <observation moodCode= "EVN" classCode="OBS"> <templateId root="06.08.840.1.413703.22.4.2 " /> <id nullFlavor="NA" /> <code codeSystem="local" code= "04735-9" displayName="Urine protein assay by test strip, semi-quantitative" /> <statusCode code="completed" /> <effectiveTime value= "193350451037" /> <value unit="" xsi:type="PQ" value="NEGATIVE" /> <referenceRange> <observationRange> <text>NEGATIVE </text> </observationRange> </referenceRange> </ observation> </component> <component> <observation moodCode= "EVN" classCode="OBS"> <templateId root="06.08.840.1.215703.10.22.4.2 " /> <id nullFlavor="NA" /> <code codeSystem="local" code= "55828-4" displayName="Urine glucose detection by automated test strip" /> <statusCode code="completed" /> <effectiveTime value="560200320637 " /> <value unit="" xsi:type="PQ" value="NEGATIVE" /> < referenceRange> <observationRange> <text>NEGATIVE</text > </observationRange> </referenceRange> </observation > </component> <component> <observation moodCode="EVN" classCode="OBS"> <templateId root="16.840.1.721033.10.2022.4.2" /> <id nullFlavor="NA" /> <code codeSystem="local" code="52850-7 " displayName="Erythrocytes detection in urine sediment by light microscopy" /> <statusCode code="completed" /> <effectiveTime value= "884447436354" /> <value unit="" xsi:type="PQ" value="1+" /> < interpretationCode codeSystem="local" code="*" /> <referenceRange> <observationRange> <text>NEGATIVE</text> </ observationRange> </referenceRange> </observation> </ component> <component> <observation moodCode="EVN" classCode="OBS"> <templateId root="06.08.840.1.658548.10.4.2" /> <id nullFlavor="NA" /> <code codeSystem="local" code="70939-5" displayName= "Urine ketones detection by automated test strip" /> <statusCode code= "completed" /> <effectiveTime value="958160407663" /> <value unit="" xsi:type="PQ" value="NEGATIVE" /> <referenceRange> < observationRange> <text>NEGATIVE</text> </ observationRange> </referenceRange> </observation> </ component> <component> <observation moodCode="EVN" classCode="OBS"> <templateId root="06.08.840.1.817819.10.2022.4.2" /> <id nullFlavor="NA" /> <code codeSystem="local" code="5802-4" displayName= "Urine nitrite detection by test strip" /> <statusCode code="completed " /> <effectiveTime value="641467041130" /> <value unit="" xsi :type="PQ" value="NEGATIVE" /> <referenceRange> < observationRange> <text>NEGATIVE</text> </ observationRange> </referenceRange> </observation> </ component> <component> <observation moodCode="EVN" classCode="OBS"> <templateId root="216.840.1.249644.10.4.2" /> <id nullFlavor="NA" /> <code codeSystem="local" code="5770-3" displayName= "Urine total bilirubin detection by test strip" /> <statusCode code= "completed" /> <effectiveTime value="037321708859" /> <value unit="" xsi:type="PQ" value="NEGATIVE" /> <referenceRange> < observationRange> <text>NEGATIVE</text> </ observationRange> </referenceRange> </observation> </ component> <component> <observation moodCode="EVN" classCode="OBS"> <templateId root="216.840.1.074155.10..4.2" /> <id nullFlavor="NA" /> <code codeSystem="local" code="57653-7" displayName= "Urine urobilinogen measurement by automated test strip (mass/volume)" /> <statusCode code="completed" /> <effectiveTime value="973390040475 " /> <value unit="" xsi:type="PQ" value="NORMAL" /> < referenceRange> <observationRange> <text>NORMAL</text> </observationRange> </referenceRange> </observation> </component> <component> <observation moodCode="EVN" classCode ="OBS"> <templateId root="216.840.1.229055.10.22.4.2" /> < id nullFlavor="NA" /> <code codeSystem="local" code="5799-2" displayName="Urine leukocyte esterase detection by dipstick" /> < statusCode code="completed" /> <effectiveTime value="573278297868" /> <value unit="" xsi:type="PQ" value="NEGATIVE" /> < referenceRange> <observationRange> <text>NEGATIVE</text > </observationRange> </referenceRange> </observation > </component> <component> <observation moodCode="EVN" classCode="OBS"> <templateId root="2.16.840.1.262498.10.20.22.4.2" /> <id nullFlavor="NA" /> <code codeSystem="local" code="06646-8 " displayName="Automated urine sediment erythrocyte count by microscopy (number/ high power field)" /> <statusCode code="completed" /> < effectiveTime value="639395136176" /> <value unit="[HPF]" xsi:type="PQ " value="" /> <referenceRange> <observationRange> <text>NRG</text> </observationRange> </referenceRange> </observation> </component> <component> <observation moodCode="EVN" classCode="OBS"> <templateId root= "2.16.840.1.361242.10..22.4.2" /> <id nullFlavor="NA" /> < code codeSystem="local" code="5821-4" displayName="Automated urine sediment leukocyte count by microscopy (number/high power field)" /> < statusCode code="completed" /> <effectiveTime value="574955755572" /> <value unit="" xsi:type="PQ" value="RARE" /> <referenceRange> <observationRange> <text>NRG</text> </ observationRange> </referenceRange> </observation> </ component> <component> <observation moodCode="EVN" classCode="OBS"> <templateId root="216.840.1.006832.10.20.22.4.2" /> <id nullFlavor="NA" /> <code codeSystem="local" code="63341-3" displayName= "Bacteria detection in urine sediment by light microscopy" /> < statusCode code="completed" /> <effectiveTime value="908864296608" /> <value unit="" xsi:type="PQ" value="TRACE" /> <referenceRange > <observationRange> <text>NRG</text> </ observationRange> </referenceRange> </observation> </ component> <component> <observation moodCode="EVN" classCode="OBS"> <templateId root="16.840.1.663353.10.22.4.2" /> <id nullFlavor="NA" /> <code codeSystem="local" code="25331-4" displayName= "Squamous epithelial cells detection in urine sediment by light microscopy" /> <statusCode code="completed" /> <effectiveTime value= "628705738840" /> <value unit="" xsi:type="PQ" value="5-10" /> <referenceRange> <observationRange> <text>NRG</text> </observationRange> </referenceRange> </observation> </component> <component> <observation moodCode="EVN" classCode ="OBS"> <templateId root="16.840.1.718058.10.20.22.4.2" /> < id nullFlavor="NA" /> <code codeSystem="local" code="29002-8" displayName="Crystals detection in urine sediment by light microscopy" /> <statusCode code="completed" /> <effectiveTime value="885597275986 " /> <value unit="" xsi:type="PQ" value="NONE" /> < referenceRange> <observationRange> <text>NRG</text> </observationRange> </referenceRange> </observation> </component> <component> <observation moodCode="EVN" classCode= "OBS"> <templateId root="16.840.1.290076.10.20.22.4.2" /> < id nullFlavor="NA" /> <code codeSystem="local" code="16112-1" displayName="Casts detection in urine sediment by light microscopy" /> <statusCode code="completed" /> <effectiveTime value="662124320087" /> <value unit="" xsi:type="PQ" value="NONE" /> <referenceRange > <observationRange> <text>NRG</text> </ observationRange> </referenceRange> </observation> </ component> <component> <observation moodCode="EVN" classCode="OBS"> <templateId root="06.08.840.1.267049.10..22.4.2" /> <id nullFlavor="NA" /> <code codeSystem="local" code="8247-9" displayName= "Mucus detection in urine sediment by light microscopy" /> <statusCode code="completed" /> <effectiveTime value="890269871920" /> < value unit="" xsi:type="PQ" value="SMALL" /> <interpretationCode codeSystem="local" code="*" /> <referenceRange> < observationRange> <text>NRG</text> </observationRange> </referenceRange> </observation> </component> < component> <observation moodCode="EVN" classCode="OBS"> < templateId root="16.840.1.555429.10.20.22.4.2" /> <id nullFlavor="NA " /> <code codeSystem="local" code="72003-4" displayName="Complete urinalysis with reflex to culture" /> <statusCode code="completed" /> <effectiveTime value="897702969544" /> <value unit="" xsi:type ="PQ" value="NO" /> <referenceRange> <observationRange> <text>NRG</text> </observationRange> </ referenceRange> </observation> </component> </organizer> </entry > <entry> <organizer moodCode="EVN" classCode="BATTERY"> <templateId root="216.840.1.805185.10.20.22.4.1" /> <id nullFlavor="NA" /> <code codeSystem="local" code="04968-3" displayName="Complete blood count (CBC) with automated white blood cell (WBC) differential" /> <statusCode code= "completed" /> <component> <observation moodCode="EVN" classCode= "OBS"> <templateId root="216.840.1.973356.10.20.22.4.2" /> < id nullFlavor="NA" /> <code codeSystem="local" code="6690-2" displayName="Blood leukocytes automated count (number/volume)" /> < statusCode code="completed" /> <effectiveTime value="070203154487" /> <value unit="10*3/uL" xsi:type="PQ" value="4.8" /> < referenceRange> <observationRange> <text>4.3-11.0</text > </observationRange> </referenceRange> </observation > </component> <component> <observation moodCode="EVN" classCode="OBS"> <templateId root="16.840.1.265997.10.20.22.4.2" /> <id nullFlavor="NA" /> <code codeSystem="local" code="789" displayName="Blood erythrocytes automated count (number/volume)" /> < statusCode code="completed" /> <effectiveTime value="325325461536" /> <value unit="10*6/uL" xsi:type="PQ" value="4.24" /> < interpretationCode codeSystem="local" code="" /> <referenceRange> <observationRange> <text>4.35-5.85</text> </ observationRange> </referenceRange> </observation> </ component> <component> <observation moodCode="EVN" classCode="OBS"> <templateId root="2.16.840.1.358022.10.20.22.4.2" /> <id nullFlavor="NA" /> <code codeSystem="local" code="30682-0" displayName= "Venous blood hemoglobin measurement (mass/volume)" /> <statusCode code ="completed" /> <effectiveTime value="909206276814" /> <value unit="g/dL" xsi:type="PQ" value="14.5" /> <referenceRange> < observationRange> <text>11.5-16.0</text> </ observationRange> </referenceRange> </observation> </ component> <component> <observation moodCode="EVN" classCode="OBS"> <templateId root="2.16.840.1.919543.10.20.22.4.2" /> <id nullFlavor="NA" /> <code codeSystem="local" code="40065-1" displayName= "Blood hematocrit (volume fraction)" /> <statusCode code="completed" / > <effectiveTime value="392023266839" /> <value unit="%" xsi:type="PQ" value="43" /> <referenceRange> < observationRange> <text>35-52</text> </observationRange > </referenceRange> </observation> </component> < component> <observation moodCode="EVN" classCode="OBS"> < templateId root="2.16.840.1.093934.10..22.4.2" /> <id nullFlavor="NA " /> <code codeSystem="local" code="787-2" displayName="Automated erythrocyte mean corpuscular volume" /> <statusCode code="completed" / > <effectiveTime value="476043708966" /> <value unit="[foz_us] " xsi:type="PQ" value="101" /> <interpretationCode codeSystem="local" code="" /> <referenceRange> <observationRange> <text>80-99</text> </observationRange> </referenceRange> </observation> </component> <component> <observation moodCode="EVN" classCode="OBS"> <templateId root= "216.840.1.144149.10..22.4.2" /> <id nullFlavor="NA" /> < code codeSystem="local" code="785-6" displayName="Automated erythrocyte mean corpuscular hemoglobin (mass per erythrocyte)" /> <statusCode code= "completed" /> <effectiveTime value="713412154440" /> <value unit="pg" xsi:type="PQ" value="34" /> <referenceRange> < observationRange> <text>25-34</text> </observationRange > </referenceRange> </observation> </component> < component> <observation moodCode="EVN" classCode="OBS"> < templateId root="2.16.840.1.653749.10..22.4.2" /> <id nullFlavor="NA " /> <code codeSystem="local" code="786-4" displayName="Automated erythrocyte mean corpuscular hemoglobin concentration measurement (mass/volume) " /> <statusCode code="completed" /> <effectiveTime value= "150079586209" /> <value unit="g/dL" xsi:type="PQ" value="34" /> <referenceRange> <observationRange> <text>32-36</ text> </observationRange> </referenceRange> </ observation> </component> <component> <observation moodCode= "EVN" classCode="OBS"> <templateId root="2.16.840.1.697073.10..22.4.2 " /> <id nullFlavor="NA" /> <code codeSystem="local" code="788 -0" displayName="Automated erythrocyte distribution width ratio" /> < statusCode code="completed" /> <effectiveTime value="327851203211" /> <value unit="%" xsi:type="PQ" value="13.0" /> < referenceRange> <observationRange> <text>10.0-14.5</text > </observationRange> </referenceRange> </observation > </component> <component> <observation moodCode="EVN" classCode="OBS"> <templateId root="2.16.840.1.265099.10..22.4.2" /> <id nullFlavor="NA" /> <code codeSystem="local" code="777-3" displayName="Automated blood platelet count (count/volume)" /> < statusCode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
[2018-05-05] MEDS ORDERED: fentaNYL INJECTION 100 MCG/2 ML AMP IVP ONE (16:30)
[2018-05-05] MEDS ORDERED: ONDANSETRON 4 MG/2 ML (SDV) Z0FRAN IVP ONE (16:30)
[2018-05-05] MEDS ORDERED: NS IV 1000 ML 1,000 ML IV ONE ×2 (16:30→17:14)
[2018-05-05 16:41] LABS: BILIRUBIN,URINE NEGATIVE (NEGATIVE); CLARITY,URINE CLEAR; COLOR,URINE YELLOW; GLUCOSE, URINE (UA) NEGATIVE (NEGATIVE); KETONES,URINE 1+ (NEGATIVE); LEUKOCYTE ESTERASE ,URINE 1+ (NEGATIVE); NITRITE,URINE NEGATIVE (NEGATIVE); PH,URINE 6 (5-9); PROTEIN,URINE 2+ (NEGATIVE); UROBILINOGEN,URINE 1 MG/DL (NORMAL)
[2018-05-05 16:47] LABS: BASOPHILS % (AUTO) 0 % (0-10); EOSINOPHILS % (AUTO) 0 % (0-10); HEMATOCRIT 41 % (35-52); HEMOGLOBIN 13.8 G/DL (11.5-16.0); LYMPHOCYTES # (AUTO) 2.5 X 10^3 (1.0-4.0); LYMPHOCYTES % (AUTO) 38 % (12-44); MEAN CORPUSCULAR HEMOGLOBIN 33 PG (25-34); MEAN CORPUSCULAR HGB CONC 34 G/DL (32-36); MEAN CORPUSCULAR VOLUME 97 FL (80-99); MEAN PLATELET VOLUME 8.3 FL (7.4-10.4); MONOCYTES # (AUTO) 0.6 X 10^3 (0.0-1.0); MONOCYTES % (AUTO) 8 % (0-12); NEUTROPHILS # (AUTO) 3.6 X 10^3 (1.8-7.8); NEUTROPHILS % (AUTO) 54 % (42-75); PLATELET COUNT 312 10^3/uL (130-400); RED BLOOD COUNT 4.23 10^6/uL (4.35-5.85); RED CELL DISTRIBUTION WIDTH 12.7 % (10.0-14.5); WHITE BLOOD COUNT 6.7 10^3/uL (4.3-11.0)
[2018-05-05 16:50] LABS: BACTERIA,URINE NEGATIVE /HPF; WBC,URINE RARE /HPF
[2018-05-05 17:06] LABS: ALANINE AMINOTRANSFERASE 14 U/L (0-55); ALBUMIN 4.7 GM/DL (3.2-4.5); ALKALINE PHOSPHATASE 66 U/L (40-136); BILIRUBIN,TOTAL 0.4 MG/DL (0.1-1.0); BUN/CREATININE RATIO 9; CALCIUM 9.9 MG/DL (8.5-10.1); CARBON DIOXIDE 21 MMOL/L (21-32); CHLORIDE 105 MMOL/L (98-107); CREATININE SERUM 0.79 MG/DL (0.60-1.30); GFR ESTIMATED > 60; GLUCOSE 93 MG/DL (70-105); POTASSIUM 3.3 MMOL/L (3.6-5.0); SODIUM 138 MMOL/L (135-145); TOTAL PROTEIN 8.2 GM/DL (6.4-8.2)
[2018-05-05] MEDS ORDERED: morphine INJ 10 MG/ML 1ML (SYR OR VIAL) IVP ONE (17:15)
[2018-05-05] MEDS ORDERED: PROMETHAZINE INJ 25 MG/ML (PHENERGAN) AMP IVP ONE (17:15)
--- NOTE | 2018-05-05 17:47 | ED Abdominal Pain ---
General Chief Complaint: Abdominal/GI Problems Stated Complaint: R SIDE PAIN/BILAT LEG PAIN Nursing Triage Note: pt presents to er with complaint of right lower side abd pain. states it started yesterday. also complaining of nausea and vomiting. Sepsis Screen: No Definite Risk Source of Information: Patient Exam Limitations: No Limitations (DION ARECHIGA MD) History of Present Illness Date Seen by Provider: May 05, 2018 Time Seen by Provider: 16:25 Initial Comments This 23-year-old young lady presents to the emergency room with complaints of right flank pain since yesterday. Pain is now moving down into the right lower quadrant. It hurts to walk, move, lay flat, and breathe. She reports having a fever yesterday up to 103.1. She's had some nausea and vomiting as well. Last menstrual period was April 25. She denies . She is afebrile at this time but is tachycardic. (DION ARECHIGA MD) Allergies and Home Medications Allergies Coded Allergies: tramadol (Verified Allergy, Unknown, 02/13/18) Home Medications Duloxetine HCl 60 Mg Capsule.dr, 120 MG PO HS, (Reported) TAKES 2 (60MG) CAPSULES Hydrocodone Bit/Acetaminophen 1 Tab Tab, 1 TAB PO Q6H PRN for PAIN-MODERATE Prescribed by: JOZEF THOMASON on 05/07/18 1503 Metoprolol Tartrate 25 Mg Tablet, 50 MG PO DAILY, (Reported) TAKES 2 (25MG) TABLETS Metoprolol Tartrate 25 Mg Tablet, 25 MG PO HS, (Reported) Nortriptyline HCl 50 Mg Capsule, 100 MG PO HS, (Reported) TAKES 2 (50MG) CAPSULES Pregabalin 150 Mg Capsule, 150 MG PO QID, (Reported) Patient Home Medication List Home Medication List Reviewed: Yes (DION ARECHIGA MD) Review of Systems Review of Systems Constitutional: see HPI EENTM: No Symptoms Reported Respiratory: No Symptoms Reported Cardiovascular: See HPI Gastrointestinal: See HPI Genitourinary: See HPI Musculoskeletal: no symptoms reported Skin: no symptoms reported Psychiatric/Neurological: No Symptoms Reported Endocrine: No Symptoms Reported Hematologic/Lymphatic: No Symptoms Reported (DION ARECHIGA MD) Past Cslboka-Mmltcl-Fboyac Hx Patient Social History Alcohol Use: Denies Use Recreational Drug Use: No Smoking Status: Former Smoker Former Smoker, Quit: Apr 23, 2017 Recent Foreign Travel: No Contact w/Someone Who Travel: No Recent Infectious Disease Expo: No (DION ARECHIGA MD) Immunizations Up To Date Tetanus Booster (TDap): Less than 5yrs PED Vaccines UTD: Yes (DION ARECHIGA MD) Past Medical History Surgeries: No Respiratory: No Cardiac: Yes Irregular Heartbeat Neurological: No Reproductive Disorders: No Female Reproductive Disorders: Denies Sexually Transmitted Disease: No Genitourinary: No Gastrointestinal: No Musculoskeletal: Yes ("CHRONIC PAIN FROM FIBROMYALGIA" ) Fibromyalgia Endocrine: Yes (Sjogren's disease per patient ) HEENT: No Cancer: No Psychosocial: Yes Depression Integumentary: No Blood Disorders: No (DION ARECHIGA MD) Family Medical History No Pertinent Family Hx (DION ARECHIGA MD) Physical Exam Vital Signs Vital Signs - First Documented 05/05/18 16:22 Temp 97.6 Pulse 121 Resp 22 B/P (MAP) 126/97 (107) Pulse Ox 97 O2 Delivery Room Air Capillary Refill : Less Than 3 Seconds Height/Weight/BMI Height: 5'9.00" Weight: 135lbs. oz. 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, no motor/sensory deficits, alert, normal mood/affect, oriented x 3 Skin: normal color, warm/dry (DION ARECHIGA MD) Vital Signs Vital Signs - First Documented 05/05/18 16:22 Temp 97.6 Pulse 121 Resp 22 B/P (MAP) 126/97 (107) Pulse Ox 97 O2 Delivery Room Air (ROSE HOPKINS MD) Progress/Results/Core Measures Results/Orders Lab Results Laboratory Tests Test 05/05/18 16:23 05/05/18 16:34 Range/Units Urine Color YELLOW Urine Clarity CLEAR Urine pH 6 5-9 Urine Specific [place] 1.025 H 1.016-1.022 Urine Protein 2+ H NEGATIVE Urine Glucose (UA) NEGATIVE NEGATIVE Urine Ketones 1+ H NEGATIVE Urine Nitrite NEGATIVE NEGATIVE Urine Bilirubin NEGATIVE NEGATIVE Urine Urobilinogen 1 NORMAL MG/DL Urine Leukocyte Esterase 1+ H NEGATIVE Urine RBC (Auto) NEGATIVE NEGATIVE Urine RBC NONE /HPF Urine WBC RARE /HPF Urine Squamous Epithelial Cells 5-10 /HPF Urine Crystals NONE /LPF Urine Bacteria NEGATIVE /HPF Urine Casts NONE /LPF Urine Mucus LARGE H /LPF Urine Culture Indicated NO White Blood Count 6.7 4.3-11.0 10^3/uL Red Blood Count 4.23 L 4.35-5.85 10^6/uL Hemoglobin 13.8 11.5-16.0 G/DL Hematocrit 41 35-52 % Mean Corpuscular Volume 97 80-99 FL Mean Corpuscular Hemoglobin 33 25-34 PG Mean Corpuscular Hemoglobin Concent 34 32-36 G/DL Red Cell Distribution Width 12.7 10.0-14.5 % Platelet Count 312 130-400 10^3/uL Mean Platelet Volume 8.3 7.4-10.4 FL Neutrophils (%) (Auto) 54 42-75 % Lymphocytes (%) (Auto) 38 12-44 % Monocytes (%) (Auto) 8 0-12 % Eosinophils (%) (Auto) 0 0-10 % Basophils (%) (Auto) 0 0-10 % Neutrophils # (Auto) 3.6 1.8-7.8 X 10^3 Lymphocytes # (Auto) 2.5 1.0-4.0 X 10^3 Monocytes # (Auto) 0.6 0.0-1.0 X 10^3 Eosinophils # (Auto) 0.0 0.0-0.3 10^3/uL Basophils # (Auto) 0.0 0.0-0.1 10^3/uL Sodium Level 138 135-145 MMOL/L Potassium Level 3.3 L 3.6-5.0 MMOL/L Chloride Level 105 98-107 MMOL/L Carbon Dioxide Level 21 21-32 MMOL/L Anion Gap 12 5-14 MMOL/L Blood Urea Nitrogen 7 7-18 MG/DL Creatinine 0.79 0.60-1.30 MG/DL Estimat Glomerular Filtration Rate > 60 BUN/Creatinine Ratio 9 Glucose Level 93 70-105 MG/DL Calcium Level 9.9 8.5-10.1 MG/DL Corrected Calcium 8.5-10.1 MG/DL Total Bilirubin 0.4 0.1-1.0 MG/DL Aspartate Amino Transf (AST/SGOT) 13 5-34 U/L Alanine Aminotransferase (ALT/SGPT) 14 0-55 U/L Alkaline Phosphatase 66 40-136 U/L Total Protein 8.2 6.4-8.2 GM/DL Albumin 4.7 H 3.2-4.5 GM/DL Human Chorionic Gonadotropin, Quant [id number] H <5 MIU/ML Serum Test, Qualitative POSITIVE NEGATIVE My Orders Orders - DION ARECHIGA MD Cbc With Automated Diff (05/05/18 16:30) Comprehensive Metabolic Panel (05/05/18 16:30) Hcg,Qualitative Serum (05/05/18 16:30) Ua Culture If Indicated (05/05/18 16:30) Saline Lock/Iv-Start (05/05/18 16:30) Ns Iv 1000 Ml (Sodium Chloride 0.9%) (05/05/18 16:30) Fentanyl Injection (Sublimaze Injection (05/05/18 16:30) Ondansetron Injection (Zofran Injectio (05/05/18 16:30) Us Ob Transvaginal [id number] (05/05/18 17:03) Hcg,Quantitative (05/05/18 17:03) Promethazine Injection (Phenergan Injec (05/05/18 17:15) Morphine Injection (Morphine Injection (05/05/18 17:15) Saline Lock/Iv-Start (05/05/18 17:14) Ns Iv 1000 Ml (Sodium Chloride 0.9%) (05/05/18 17:14) Us Renal Limited [id number] (05/05/18 ) Us Appendix [id number] (05/05/18 ) Medications Given in ED Current Medications Medications Dose Ordered Sig/Oli Route Start Time Stop Time Status Last Admin Dose Admin Fentanyl Citrate 75 mcg ONCE ONCE IVP 05/05/18 16:30 05/05/18 16:33 DC 05/05/18 16:50 75 MCG Morphine Sulfate 5 mg ONCE ONCE IVP 1/13/19 17:15 05/05/18 17:16 DC 05/05/18 17:22 5 MG Ondansetron HCl 8 mg ONCE ONCE IVP 05/05/18 16:30 05/05/18 16:33 DC 05/05/18 16:50 8 MG Promethazine HCl 25 mg ONCE ONCE IVP 05/05/18 17:15 05/05/18 17:16 DC 05/05/18 17:22 25 MG Sodium Chloride 1,000 ml @ 0 mls/hr Q0M ONCE IV 05/05/18 16:30 05/05/18 16:33 DC 05/05/18 16:50 1,000 MLS/HR Sodium Chloride 1,000 ml @ 0 mls/hr Q0M ONCE IV 05/05/18 17:14 05/05/18 17:15 DC 05/05/18 17:22 1,000 MLS/HR Vital Signs/I&O 05/05/18 16:22 Temp 97.6 Pulse 121 Resp 22 B/P (MAP) 126/97 (107) Pulse Ox 97 O2 Delivery Room Air Blood Pressure Mean: 107 (DION ARECHIGA MD) Lab Results Laboratory Tests Test 05/05/18 16:23 05/05/18 16:34 Range/Units Urine Color YELLOW Urine Clarity CLEAR Urine pH 6 5-9 Urine Specific [place] 1.025 H 1.016-1.022 Urine Protein 2+ H NEGATIVE Urine Glucose (UA) NEGATIVE NEGATIVE Urine Ketones 1+ H NEGATIVE Urine Nitrite NEGATIVE NEGATIVE Urine Bilirubin NEGATIVE NEGATIVE Urine Urobilinogen 1 NORMAL MG/DL Urine Leukocyte Esterase 1+ H NEGATIVE Urine RBC (Auto) NEGATIVE NEGATIVE Urine RBC NONE /HPF Urine WBC RARE /HPF Urine Squamous Epithelial Cells 5-10 /HPF Urine Crystals NONE /LPF Urine Bacteria NEGATIVE /HPF Urine Casts NONE /LPF Urine Mucus LARGE H /LPF Urine Culture Indicated NO White Blood Count 6.7 4.3-11.0 10^3/uL Red Blood Count 4.23 L 4.35-5.85 10^6/uL Hemoglobin 13.8 11.5-16.0 G/DL Hematocrit 41 35-52 % Mean Corpuscular Volume 97 80-99 FL Mean Corpuscular Hemoglobin 33 25-34 PG Mean Corpuscular Hemoglobin Concent 34 32-36 G/DL Red Cell Distribution Width 12.7 10.0-14.5 % Platelet Count 312 130-400 10^3/uL Mean Platelet Volume 8.3 7.4-10.4 FL Neutrophils (%) (Auto) 54 42-75 % Lymphocytes (%) (Auto) 38 12-44 % Monocytes (%) (Auto) 8 0-12 % Eosinophils (%) (Auto) 0 0-10 % Basophils (%) (Auto) 0 0-10 % Neutrophils # (Auto) 3.6 1.8-7.8 X 10^3 Lymphocytes # (Auto) 2.5 1.0-4.0 X 10^3 Monocytes # (Auto) 0.6 0.0-1.0 X 10^3 Eosinophils # (Auto) 0.0 0.0-0.3 10^3/uL Basophils # (Auto) 0.0 0.0-0.1 10^3/uL Sodium Level 138 135-145 MMOL/L Potassium Level 3.3 L 3.6-5.0 MMOL/L Chloride Level 105 98-107 MMOL/L Carbon Dioxide Level 21 21-32 MMOL/L Anion Gap 12 5-14 MMOL/L Blood Urea Nitrogen 7 7-18 MG/DL Creatinine 0.79 0.60-1.30 MG/DL Estimat Glomerular Filtration Rate > 60 BUN/Creatinine Ratio 9 Glucose Level 93 70-105 MG/DL Calcium Level 9.9 8.5-10.1 MG/DL Corrected Calcium 8.5-10.1 MG/DL Total Bilirubin 0.4 0.1-1.0 MG/DL Aspartate Amino Transf (AST/SGOT) 13 5-34 U/L Alanine Aminotransferase (ALT/SGPT) 14 0-55 U/L Alkaline Phosphatase 66 40-136 U/L Total Protein 8.2 6.4-8.2 GM/DL Albumin 4.7 H 3.2-4.5 GM/DL Human Chorionic Gonadotropin, Quant 14423 H <5 MIU/ML Serum Test, Qualitative POSITIVE NEGATIVE My Orders Orders - ROSE HOPKINS MD Fentanyl Injection (Sublimaze Injection (05/05/18 19:02) Medications Given in ED Current Medications Medications Dose Ordered Sig/Oli Route Start Time Stop Time Status Last Admin Dose Admin Fentanyl Citrate 75 mcg ONCE ONCE IVP 05/05/18 16:30 05/05/18 16:33 DC 05/05/18 16:50 75 MCG Morphine Sulfate 5 mg ONCE ONCE IVP 05/05/18 17:15 05/05/18 17:16 DC 05/05/18 17:22 5 MG Ondansetron HCl 8 mg ONCE ONCE IVP 05/05/18 16:30 05/05/18 16:33 DC 05/05/18 16:50 8 MG Promethazine HCl 25 mg ONCE ONCE IVP 05/05/18 17:15 05/05/18 17:16 DC 05/05/18 17:22 25 MG Sodium Chloride 1,000 ml @ 0 mls/hr Q0M ONCE IV 05/05/18 16:30 05/05/18 16:33 DC 05/05/18 16:50 1,000 MLS/HR Sodium Chloride 1,000 ml @ 0 mls/hr Q0M ONCE IV 05/05/18 17:14 05/05/18 17:15 DC 05/05/18 17:22 1,000 MLS/HR Vital Signs/I&O 05/05/18 16:22 Temp 97.6 Pulse 121 Resp 22 B/P (MAP) 126/97 (107) Pulse Ox 97 O2 Delivery Room Air (ROSE HOPKINS MD) Progress Progress Note #1: Time: 17:15 Progress Note Symptoms and exam were suspicious for appendicitis. However, despite denying , serum test returned positive. CT scan was canceled and an ultrasound was ordered. Patient had persistent pain and nausea despite treatment with fentanyl and Zofran. Phenergan and morphine were ordered. Patient was still tachycardic. His second liter of IV fluid was also ordered. Progress Note #2: Time: 18:24 Progress Note is technician notes a normal intrauterine . Further evaluation with ultrasound of the right kidney and right lower quadrant for appendicitis was requested. Care of this patient is being transferred to Dr. Hopkins at this time. (DION ARECHIGA MD) Progress Note : Progress Note 1845: I have reevaluated the patient. Pending ultrasound results. 1856: Ultrasound does not show hydronephrosis and appendix not clearly visualized. Patient does have significant right lower quadrant tenderness still. I discussed the case with Dr. Thomason. Ultimately we agree that patient needs further evaluation. Patient to be admitted, nothing by mouth, with pain and IV fluids. We will get MRI abdomen to rule out appendicitis tomorrow morning. This was discussed with patient who agrees with plan. Repeat fentanyl 75 g IV for increased pain currently. Admit, observation status. 1919: We've found that MRI is currently unavailable. I did discuss this with Dr. Thomason. He will recheck labs and repeat exam tomorrow and determine further therapy as indicated. Continue admission. (ROSE HOPKINS MD) Diagnostic Imaging Diagonstic Imaging: Ultrasound Plain Films/CT/US/NM/MRI: pelvis Comments [facility] [place], [place] NAME: KRISTINA TABARES [facility] REC#: [id number] PT STATUS: REG ER : 1995 PHYSICIAN: DION ARECHIGA MD ADMIT DATE: 05/05/18/ER Draft Date of Exam:05/05/18 US OB TRANSVAGINAL [id number] EXAM: US OB transvaginal. [id number] INDICATION: Pelvic pain. COMPARISON: None. FINDINGS: Symmetrically oval endometrial fluid collection consistent with a gestational sac contains a yolk sac and a pole. [place]-rump measurements correspond to a 6 week, 6 day gestation. heart rate is 111 beats per minute. No subchorionic fluid collections. The left ovary is not identified. The right ovary measures 2.7 x 4.1 cm. Normal flow by color Doppler in the right ovary. No free fluid in the pelvis. IMPRESSION: Single live intrauterine corresponding to a 6 week, 6 day gestation. heart rate is 111 beats per minute. No subchorionic fluid collections. No free fluid in the pelvis. The left ovary is not well seen. Dictated on workstation # [id number] Dict: 05/05/181826 Trans: 05/05/18 183 [facility] [id number] Interpreted by: ANAM GRIMM MD Electronically signed by: Diagonstic Imaging: Ultrasound Plain Films/CT/US/NM/MRI: other (kidney and appendix) Comments Preliminary findings show no hydronephrosis and appendix is not clearly visualized per tech. Report pending. [facility] [place] [place] NAME: KRISTINA TABARES [facility] REC#: [id number] PT STATUS: REG ER : 1995 PHYSICIAN: DION ARECHIGA MD ADMIT DATE: 05/05/18/ER Draft Date of Exam:05/05/18 US APPENDIX [id number] EXAM: US appendix. [id number] INDICATION: RLQ pelvic pain. COMPARISON: CT abdomen and pelvis with IV contrast, 02/13/2018. FINDINGS/IMPRESSION: Survey ultrasound of the right lower quadrant is unable to identify the appendix. No fluid collections. Dictated on workstation # [id number] Dict: 05/05/181918 Trans: 05/05/181921 PJ [id number] Interpreted by: ANAM GRIMM MD Electronically signed by: [facility] [place] NAME: KRISTINA TABARES [facility] REC#: [id number] PT STATUS: REG ER : 1995 PHYSICIAN: DION ARCEHIGA MD ADMIT DATE: 05/05/18/ER Draft Date of Exam:05/05/18 US RENAL LIMITED [id number] EXAM: US renal limited .[id number] INDICATION: RLQ pelvic pain. COMPARISON: CT abdomen and pelvis with IV contrast, 02/13/2018. FINDINGS: Right kidney measures 12.7 cm. No right renal mass, cyst, shadowing stone or hydronephrosis. The left kidney is not visualized. The bladder was not evaluated due to patient voiding immediately before the exam. IMPRESSION: Negative right kidney ultrasound. Dictated on workstation # [id number] Dict: 05/05/181915 Trans: 05/05/181921 PJE [id number] Interpreted by: ANAM GRIMM MD Electronically signed by: (ROSE HOPKINS MD) Departure Communication (Admissions) Time/Spoke to Admitting Phy: 18:57 (ROSE HOPKINS MD) Impression Primary Impression: Right lower quadrant abdominal pain Additional Impression: Intrauterine Disposition: ADMITTED INPATIENT Condition: Stable Admissions Decision to Admit Reason: Admit from ER (General) Decision to Admit/Date: May 05, 2018 Time/Decision to Admit Time: 18:57 (ROSE HOPKINS MD) Departure-Patient Inst. Referrals: NO,LOCAL PHYSICIAN (PCP/Family) Primary Care Physician Scripts Hydrocodone Bit/Acetaminophen (Hydrocodone/Acetaminophen 5/325mg Tablet) 1 Tab Tab 1 TAB PO Q6H PRN for PAIN-MODERATE MDD 10, #20 TAB Prov: JOZEF THOMASON DO 05/07/18 DION ARECHIGA MD May 05, 2018 17:47 ROSE HOPKINS MD May 05, 2018 19:14
--- NOTE | 2018-05-05 18:34 | Diagnostic Imaging Report ---
EXAM: US OB transvaginal. [id number] INDICATION: Pelvic pain. COMPARISON: None. FINDINGS: Symmetrically oval endometrial fluid collection consistent with a gestational sac contains a yolk sac and a pole. [place]-rump measurements correspond to a 6 week, 6 day gestation. heart rate is 111 beats per minute. No subchorionic fluid collections. The left ovary is not identified. The right ovary measures 2.7 x 4.1 cm. Normal flow by color Doppler in the right ovary. No free fluid in the pelvis. IMPRESSION: Single live intrauterine corresponding to a 6 week, 6 day gestation. heart rate is 111 beats per minute. No subchorionic fluid collections. No free fluid in the pelvis. The left ovary is not well seen. Dictated by: Dictated on workstation # [id number]
[2018-05-05] MEDS ORDERED: fentaNYL INJECTION 100 MCG/2 ML AMP IVP STA (19:02)
--- NOTE | 2018-05-05 19:22 | Diagnostic Imaging Report ---
EXAM: US renal limited .[id number] INDICATION: RLQ pelvic pain. COMPARISON: CT abdomen and pelvis with IV contrast, 02/13/2018. FINDINGS: Right kidney measures 12.7 cm. No right renal mass, cyst, shadowing stone or hydronephrosis. The left kidney is not visualized. The bladder was not evaluated due to patient voiding immediately before the exam. IMPRESSION: Negative right kidney ultrasound. Dictated by: Dictated on workstation # [id number]
--- NOTE | 2018-05-05 19:23 | Diagnostic Imaging Report ---
EXAM: US appendix. [id number] INDICATION: RLQ pelvic pain. COMPARISON: CT abdomen and pelvis with IV contrast, 02/13/2018. FINDINGS/IMPRESSION: Survey ultrasound of the right lower quadrant is unable to identify the appendix. No fluid collections. Dictated by: Dictated on workstation # [id number]
--- OUTSIDE RECORDS SUMMARY | 2018-05-05 19:40 | XMS REPORT | Continuity of Care Document ---
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 root="06.08.840.1.765310.02.09.22.4.2 " /> <id nullFlavor="NA" /> <code codeSystem="local" code="BUN " displayName="BLOOD UREA NITROGEN" /> <statusCode code="completed" /> <effectiveTime value="191198208189" /> <value unit="mg/dL" xsi:type="PQ" value="16" /> <referenceRange> < observationRange> <text>7-20</text> </observationRange> </referenceRange> </observation> </component> < component> <observation moodCode="EVN" classCode="OBS"> < templateId root="16.840.1.726664.10..22.4.2" /> <id nullFlavor="NA " /> <code codeSystem="local" code="CREAT" displayName="CREATININE" /> <statusCode code="completed" /> <effectiveTime value= "572983718586" /> <value unit="mg/dL" xsi:type="PQ" value="0.7" /> <referenceRange> <observationRange> <text>0.6-1.0< /text> </observationRange> </referenceRange> </ observation> </component> <component> <observation moodCode= "EVN" classCode="OBS"> <templateId root="16.840.1.605478.10...4.2 " /> <id nullFlavor="NA" /> <code codeSystem="local" code="NA " displayName="SODIUM" /> <statusCode code="completed" /> < effectiveTime value="662600380095" /> <value unit="mmol/L" xsi:type="PQ " value="141" /> <referenceRange> <observationRange> <text>135-148</text> </observationRange> </ referenceRange> </observation> </component> <component> <observation moodCode="EVN" classCode="OBS"> <templateId root= "06.08.840.1.369398.10..4.2" /> <id nullFlavor="NA" /> < code codeSystem="local" code="CL" displayName="CHLORIDE" /> < statusCode code="completed" /> <effectiveTime value="003611738484" /> <value unit="mmol/L" xsi:type="PQ" value="105" /> < referenceRange> <observationRange> <text>98-110</text> </observationRange> </referenceRange> </observation> </component> <component> <observation moodCode="EVN" classCode ="OBS"> <templateId root="06.08.840.1.098093.10..22.4.2" /> < id nullFlavor="NA" /> <code codeSystem="local" code="AST" displayName= "AST/SGOT" /> <statusCode code="completed" /> <effectiveTime value="150509077709" /> <value unit="Units/L" xsi:type="PQ" value="18" /> <referenceRange> <observationRange> <text>10 -37</text> </observationRange> </referenceRange> </ observation> </component> <component> <observation moodCode= "EVN" classCode="OBS"> <templateId root="16.840.1.367475.10.4.2 " /> <id nullFlavor="NA" /> <code codeSystem="local" code="ALT " displayName="ALT/SGPT" /> <statusCode code="completed" /> < effectiveTime value="924724874280" /> <value unit="Units/L" xsi:type= "PQ" value="16" /> <referenceRange> <observationRange> <text>< 66</text> </observationRange> </ referenceRange> </observation> </component> <component> <observation moodCode="EVN" classCode="OBS"> <templateId root= "06.08.840.1.227596.02.09.22.4.2" /> <id nullFlavor="NA" /> < code codeSystem="local" code="CO2" displayName="CARBON DIOXIDE" /> < statusCode code="completed" /> <effectiveTime value="264528470455" /> <value unit="mmol/L" xsi:type="PQ" value="30" /> < referenceRange> <observationRange> <text>21-32</text> </observationRange> </referenceRange> </observation> </component> <component> <observation moodCode="EVN" classCode= "OBS"> <templateId root="216.840.1.744524....4.2" /> < id nullFlavor="NA" /> <code codeSystem="local" code="TP" displayName= "TOTAL PROTEIN" /> <statusCode code="completed" /> < effectiveTime value="482051806837" /> <value unit="gm/dL" xsi:type="PQ " value="8.1" /> <referenceRange> <observationRange> <text>6.4-8.2</text> </observationRange> </ referenceRange> </observation> </component> <component> <observation moodCode="EVN" classCode="OBS"> <templateId root= "2.16.840.1.022612.10..22.4.2" /> <id nullFlavor="NA" /> < code codeSystem="local" code="ALB" displayName="ALBUMIN" /> < statusCode code="completed" /> <effectiveTime value="233129247377" /> <value unit="gm/dL" xsi:type="PQ" value="4.5" /> < referenceRange> <observationRange> <text>3.4-5.0</text> </observationRange> </referenceRange> </observation > </component> <component> <observation moodCode="EVN" classCode="OBS"> <templateId root="216.840.1.330421.10..22.4.2" /> <id nullFlavor="NA" /> <code codeSystem="local" code="BILTOT" displayName="BILI TOTAL" /> <statusCode code="completed" /> < effectiveTime value="726544703965" /> <value unit="mg/dL" xsi:type="PQ " value="0.2" /> <referenceRange> <observationRange> <text>0.0-1.0</text> </observationRange> </ referenceRange> </observation> </component> <component> <observation moodCode="EVN" classCode="OBS"> <templateId root= "06.08.840.1.349602.10.20.22.4.2" /> <id nullFlavor="NA" /> < code codeSystem="local" code="ALKP" displayName="ALKALINE PHOSPHATASE TOTAL" /> <statusCode code="completed" /> <effectiveTime value= "534065706909" /> <value unit="IU/L" xsi:type="PQ" value="64" /> <referenceRange> <observationRange> <text>45-117</ text> </observationRange> </referenceRange> </ observation> </component> </organizer> </entry> <entry> <organizer moodCode="EVN" classCode="BATTERY"> <templateId root= "16.840.1.096191.10..22.4.1" /> <id nullFlavor="NA" /> <code codeSystem="local" code="CRP" displayName="C REACTIVE PROTEIN" /> < statusCode code="completed" /> <component> <observation moodCode= "EVN" classCode="OBS"> <templateId root="06.08.840.1.232259.10..22.4.2 " /> <id nullFlavor="NA" /> <code codeSystem="local" code="CRP " displayName="C REACTIVE PROTEIN" /> <statusCode code="completed" /> <effectiveTime value="119627135903" /> <value unit="mg/dL" xsi :type="PQ" value="< 0.2" /> <referenceRange> < observationRange> <text>0.00-0.90</text> </ observationRange> </referenceRange> </observation> </ component> </organizer> </entry> <entry> <organizer moodCode="EVN" classCode="BATTERY"> <templateId root="840.1.549443.10..22.4.1" /> <id nullFlavor="NA" /> <code codeSystem="local" code="PREGU" displayName="UR TEST" /> <statusCode code="completed" /> < component> <observation moodCode="EVN" classCode="OBS"> < templateId root="06.08.840.1.929030.02.09.22.4.2" /> <id nullFlavor="NA " /> <code codeSystem="local" code="PREGU" displayName="UR TEST" /> <statusCode code="completed" /> <effectiveTime value= "476289642173" /> <value unit="" xsi:type="PQ" value="NEGATIVE" /> <referenceRange> <observationRange> <text>NEGATIVE </text> </observationRange> </referenceRange> </ observation> </component> </organizer> </entry> <entry> <organizer moodCode="EVN" classCode="BATTERY"> <templateId root= "06.08.840.1.828833.02.09.22.4.1" /> <id nullFlavor="NA" /> <code codeSystem="local" code="UA" displayName="URINALYSIS, ROUTINE" /> < statusCode code="completed" /> <component> <observation moodCode= "EVN" classCode="OBS"> <templateId root="16.840.1.579043.10..22.4.2 " /> <id nullFlavor="NA" /> <code codeSystem="local" code= "LEUESU" displayName="UA LEUKOCYTE ESTERASE DIPSTICK" /> <statusCode code="completed" /> <effectiveTime value="916481803158" /> < value unit="" xsi:type="PQ" value="TRACE" /> <referenceRange> <observationRange> <text>NEGATIVE</text> </ observationRange> </referenceRange> </observation> </ component> <component> <observation moodCode="EVN" classCode="OBS"> <templateId root="16.840.1.021921.10.4.2" /> <id nullFlavor="NA" /> <code codeSystem="local" code="NITRIU" displayName= "UA NITRITE DIPSTICK" /> <statusCode code="completed" /> < effectiveTime value="" /> <value unit="" xsi:type="PQ" value="NEGATIVE" /> <referenceRange> <observationRange> <text>NEGATIVE</text> </observationRange> </ referenceRange> </observation> </component> <component> <observation moodCode="EVN" classCode="OBS"> <templateId root= "06.08.840.1.093242.02.09.22.4.2" /> <id nullFlavor="NA" /> < code codeSystem="local" code="PROTEIU" displayName="UA PROTEIN DIPSTICK" /> <statusCode code="completed" /> <effectiveTime value= "" /> <value unit="" xsi:type="PQ" value="TRACE" /> <referenceRange> <observationRange> <text>NEGATIVE</ text> </observationRange> </referenceRange> </ observation> </component> <component> <observation moodCode= "EVN" classCode="OBS"> <templateId root="06.08.840.1.243087.10.4.2 " /> <id nullFlavor="NA" /> <code codeSystem="local" code= "DGLUU" displayName="UA GLUCOSE DIPSTICK" /> <statusCode code= "completed" /> <effectiveTime value="" /> <value unit="" xsi:type="PQ" value="NEGATIVE" /> <referenceRange> < observationRange> <text>NEGATIVE</text> </ observationRange> </referenceRange> </observation> </ component> <component> <observation moodCode="EVN" classCode="OBS"> <templateId root="06.08.840.1.349579.10.22.4.2" /> <id nullFlavor="NA" /> <code codeSystem="local" code="KETONU" displayName= "UA KETONE DIPSTICK" /> <statusCode code="completed" /> < effectiveTime value="830426657412" /> <value unit="" xsi:type="PQ" value="NEGATIVE" /> <referenceRange> <observationRange> <text>NEGATIVE</text> </observationRange> </ referenceRange> </observation> </component> <component> <observation moodCode="EVN" classCode="OBS"> <templateId root= "840.1.765220.1022.4.2" /> <id nullFlavor="NA" /> < code codeSystem="local" code="UROBILU" displayName="UA UROBILINOGEN DIPSTICK" / > <statusCode code="completed" /> <effectiveTime value= "642991618705" /> <value unit="" xsi:type="PQ" value="NORMAL" /> <referenceRange> <observationRange> <text>NORMAL</ text> </observationRange> </referenceRange> </ observation> </component> <component> <observation moodCode= "EVN" classCode="OBS"> <templateId root="06.08.840.1.469127.102022.4.2 " /> <id nullFlavor="NA" /> <code codeSystem="local" code= "BILU" displayName="UA BILIRUBIN DIPSTICK" /> <statusCode code= "completed" /> <effectiveTime value="966652865004" /> <value unit="" xsi:type="PQ" value="2+" /> <interpretationCode codeSystem= "local" code="*" /> <referenceRange> <observationRange> <text>NEGATIVE</text> </observationRange> </ referenceRange> </observation> </component> <component> <observation moodCode="EVN" classCode="OBS"> <templateId root= "06.08.840.1.432923.10..22.4.2" /> <id nullFlavor="NA" /> < code codeSystem="local" code="SPENCER" displayName="UA BLOOD DIPSTICK" /> < statusCode code="completed" /> <effectiveTime value="470307541593" /> <value unit="" xsi:type="PQ" value="4+" /> < interpretationCode codeSystem="local" code="*" /> <referenceRange> <observationRange> <text>NEGATIVE</text> </ observationRange> </referenceRange> </observation> </ component> <component> <observation moodCode="EVN" classCode="OBS"> <templateId root="16.840.1.687483.10.20.22.4.2" /> <id nullFlavor="NA" /> <code codeSystem="local" code="SPGRU" displayName= "UA SPECIFIC GRAVITY" /> <statusCode code="completed" /> < effectiveTime value="318537835792" /> <value unit="" xsi:type="PQ" value="1.025" /> <referenceRange> <observationRange> <text>1.015-1.025</text> </observationRange> </ referenceRange> </observation> </component> <component> <observation moodCode="EVN" classCode="OBS"> <templateId root= "06.08.840.1.515924.02.09.22.4.2" /> <id nullFlavor="NA" /> < code codeSystem="local" code="FEROZ" displayName="UR PH" /> <statusCode code="completed" /> <effectiveTime value="067097881198" /> < value unit="" xsi:type="PQ" value="6.0" /> <referenceRange> <observationRange> <text>5.0-7.0</text> </ observationRange> </referenceRange> </observation> </ component> </organizer> </entry> <entry> <organizer moodCode="EVN" classCode="BATTERY"> <templateId root="06.08.840.1.271150.02.09.22.4.1" /> <id nullFlavor="NA" /> <code codeSystem="local" code="UAMICRO" displayName="UA MICROSCOPIC" /> <statusCode code="completed" /> < component> <observation moodCode="EVN" classCode="OBS"> < templateId root="06.08.840.1.817117.02.09.22.4.2" /> <id nullFlavor="NA " /> <code codeSystem="local" code="BACU" displayName="UA BACTERIA" /> <statusCode code="completed" /> <effectiveTime value= "732577773514" /> <value unit="" xsi:type="PQ" value="1+" /> < interpretationCode codeSystem="local" code="*" /> <referenceRange> <observationRange> <text>NEGATIVE</text> </ observationRange> </referenceRange> </observation> </ component> <component> <observation moodCode="EVN" classCode="OBS"> <templateId root="06.08.840.1.634391.02.09.22.4.2" /> <id nullFlavor="NA" /> <code codeSystem="local" code="EPIU" displayName=" UA EPITHELIAL CELLS" /> <statusCode code="completed" /> < effectiveTime value="" /> <value unit="epi/hpf" xsi:type= "PQ" value="1+" /> <referenceRange> <observationRange> <text>0 - 1+</text> </observationRange> </ referenceRange> </observation> </component> <component> <observation moodCode="EVN" classCode="OBS"> <templateId root= "2.16.840.1.774300.10..22.4.2" /> <id nullFlavor="NA" /> < code codeSystem="local" code="MUCUSU" displayName="UA MUCUS" /> < statusCode code="completed" /> <effectiveTime value="" /> <value unit="" xsi:type="PQ" value="1+" /> <referenceRange> <observationRange> <text>NEG TO 1+</text> </ observationRange> </referenceRange> </observation> </ component> <component> <observation moodCode="EVN" classCode="OBS"> <templateId root="2.16.840.1.048093.10..22.4.2" /> <id nullFlavor="NA" /> <code codeSystem="local" code="RBCU" displayName=" UA RBC" /> <statusCode code="completed" /> <effectiveTime value="907739993343" /> <value unit="rbc/hpf" xsi:type="PQ" value="20- 50" /> <interpretationCode codeSystem="local" code="*" /> < referenceRange> <observationRange> <text>0 - 3</text> </observationRange> </referenceRange> </observation> </component> <component> <observation moodCode="EVN" classCode= "OBS"> <templateId root="16.840.1.560237.10.4.2" /> < id nullFlavor="NA" /> <code codeSystem="local" code="UAVOL" displayName ="UA VOLUME FOR EXAM" /> <statusCode code="completed" /> < effectiveTime value="149231997530" /> <value unit="mL" xsi:type="PQ" value="12.0" /> <referenceRange> <observationRange> <text>(12mL STD)</text> </observationRange> </ referenceRange> </observation> </component> <component> <observation moodCode="EVN" classCode="OBS"> <templateId root= "06.08.840.1.930288.02.09.22.4.2" /> <id nullFlavor="NA" /> < code codeSystem="local" code="WBCU" displayName="UA WBC" /> < statusCode code="completed" /> <effectiveTime value="026369364463" /> <value unit="wbc/hpf" xsi:type="PQ" value="2-5" /> < referenceRange> <observationRange> <text>0 - 5</text> </observationRange> </referenceRange> </observation> </component> </organizer> </entry> <entry> <organizer moodCode="EVN " classCode="BATTERY"> <templateId root="06.08.840.1.727354.10.4.1" / > <id nullFlavor="NA" /> <code codeSystem="local" code="PREGU" displayName="UR TEST" /> <statusCode code="completed" /> < component> <observation moodCode="EVN" classCode="OBS"> < templateId root="06.08.840.1.649865.02.09.22.4.2" /> <id nullFlavor="NA " /> <code codeSystem="local" code="PREGU" displayName="UR TEST" /> <statusCode code="completed" /> <effectiveTime value= "851117852340" /> <value unit="" xsi:type="PQ" value="NEGATIVE" /> <referenceRange> <observationRange> <text>NEGATIVE </text> </observationRange> </referenceRange> </ observation> </component> </organizer> </entry> <entry> <organizer moodCode="EVN" classCode="BATTERY"> <templateId root= "216.840.1.492328.02.09.22.4.1" /> <id nullFlavor="NA" /> <code codeSystem="local" code="UA" displayName="URINALYSIS, ROUTINE" /> < statusCode code="completed" /> <component> <observation moodCode= "EVN" classCode="OBS"> <templateId root="216.840.1.099914.10..4.2 " /> <id nullFlavor="NA" /> <code codeSystem="local" code= "LEUESU" displayName="UA LEUKOCYTE ESTERASE DIPSTICK" /> <statusCode code="completed" /> <effectiveTime value="390903221916" /> < value unit="" xsi:type="PQ" value="TRACE" /> <referenceRange> <observationRange> <text>NEGATIVE</text> </ observationRange> </referenceRange> </observation> </ component> <component> <observation moodCode="EVN" classCode="OBS"> <templateId root="216.840.1.314274.10.22.4.2" /> <id nullFlavor="NA" /> <code codeSystem="local" code="NITRIU" displayName= "UA NITRITE DIPSTICK" /> <statusCode code="completed" /> < effectiveTime value="939361587593" /> <value unit="" xsi:type="PQ" value="NEGATIVE" /> <referenceRange> <observationRange> <text>NEGATIVE</text> </observationRange> </ referenceRange> </observation> </component> <component> <observation moodCode="EVN" classCode="OBS"> <templateId root= "06.08.840.1.653090.02.09.22.4.2" /> <id nullFlavor="NA" /> < code codeSystem="local" code="PROTEIU" displayName="UA PROTEIN DIPSTICK" /> <statusCode code="completed" /> <effectiveTime value= "450792441357" /> <value unit="" xsi:type="PQ" value="TRACE" /> <referenceRange> <observationRange> <text>NEGATIVE</ text> </observationRange> </referenceRange> </ observation> </component> <component> <observation moodCode= "EVN" classCode="OBS"> <templateId root="06.08.840.1.012104.02.09.22.4.2 " /> <id nullFlavor="NA" /> <code codeSystem="local" code= "DGLUU" displayName="UA GLUCOSE DIPSTICK" /> <statusCode code= "completed" /> <effectiveTime value="229552700837" /> <value unit="" xsi:type="PQ" value="NEGATIVE" /> <referenceRange> < observationRange> <text>NEGATIVE</text> </ observationRange> </referenceRange> </observation> </ component> <component> <observation moodCode="EVN" classCode="OBS"> <templateId root="06.08.840.1.239244.02.09.22.4.2" /> <id nullFlavor="NA" /> <code codeSystem="local" code="KETONU" displayName= "UA KETONE DIPSTICK" /> <statusCode code="completed" /> < effectiveTime value="224712140390" /> <value unit="" xsi:type="PQ" value="NEGATIVE" /> <referenceRange> <observationRange> <text>NEGATIVE</text> </observationRange> </ referenceRange> </observation> </component> <component> <observation moodCode="EVN" classCode="OBS"> <templateId root= "2.16.840.1.686827.10..22.4.2" /> <id nullFlavor="NA" /> < code codeSystem="local" code="UROBILU" displayName="UA UROBILINOGEN DIPSTICK" / > <statusCode code="completed" /> <effectiveTime value= "587006120330" /> <value unit="" xsi:type="PQ" value="NORMAL" /> <referenceRange> <observationRange> <text>NORMAL</ text> </observationRange> </referenceRange> </ observation> </component> <component> <observation moodCode= "EVN" classCode="OBS"> <templateId root="2.16.840.1.013948.10..22.4.2 " /> <id nullFlavor="NA" /> <code codeSystem="local" code= "BILU" displayName="UA BILIRUBIN DIPSTICK" /> <statusCode code= "completed" /> <effectiveTime value="139005357932" /> <value unit="" xsi:type="PQ" value="3+" /> <interpretationCode codeSystem= "local" code="*" /> <referenceRange> <observationRange> <text>NEGATIVE</text> </observationRange> </ referenceRange> </observation> </component> <component> <observation moodCode="EVN" classCode="OBS"> <templateId root= "216.840.1.176610.10..22.4.2" /> <id nullFlavor="NA" /> < code codeSystem="local" code="SPENCER" displayName="UA BLOOD DIPSTICK" /> < statusCode code="completed" /> <effectiveTime value="271231932055" /> <value unit="" xsi:type="PQ" value="NEGATIVE" /> < referenceRange> <observationRange> <text>NEGATIVE</text > </observationRange> </referenceRange> </observation > </component> <component> <observation moodCode="EVN" classCode="OBS"> <templateId root="16.840.1.749766.10..4.2" /> <id nullFlavor="NA" /> <code codeSystem="local" code="SPGRU" displayName="UA SPECIFIC GRAVITY" /> <statusCode code="completed" /> <effectiveTime value="984801596447" /> <value unit="" xsi:type= "PQ" value="1.015" /> <referenceRange> <observationRange> <text>1.015-1.025</text> </observationRange> </ referenceRange> </observation> </component> <component> <observation moodCode="EVN" classCode="OBS"> <templateId root= "16.840.1.026160.10..22.4.2" /> <id nullFlavor="NA" /> < code codeSystem="local" code="FEROZ" displayName="UR PH" /> <statusCode code="completed" /> <effectiveTime value="224854181666" /> < value unit="" xsi:type="PQ" value="6.5" /> <referenceRange> <observationRange> <text>5.0-7.0</text> </ observationRange> </referenceRange> </observation> </ component> </organizer> </entry> <entry> <organizer moodCode="EVN" classCode="BATTERY"> <templateId root="16.840.1.583384.10..22.4.1" /> <id nullFlavor="NA" /> <code codeSystem="local" code="UAMICRO" displayName="UA MICROSCOPIC" /> <statusCode code="completed" /> < component> <observation moodCode="EVN" classCode="OBS"> < templateId root="216.840.1.215707.10..4.2" /> <id nullFlavor="NA " /> <code codeSystem="local" code="BACU" displayName="UA BACTERIA" /> <statusCode code="completed" /> <effectiveTime value= "261138035513" /> <value unit="" xsi:type="PQ" value="2+" /> < interpretationCode codeSystem="local" code="*" /> <referenceRange> <observationRange> <text>NEGATIVE</text> </ observationRange> </referenceRange> </observation> </ component> <component> <observation moodCode="EVN" classCode="OBS"> <templateId root="16.840.1.144505.02.09.22.4.2" /> <id nullFlavor="NA" /> <code codeSystem="local" code="EPIU" displayName=" UA EPITHELIAL CELLS" /> <statusCode code="completed" /> < effectiveTime value="746504529415" /> <value unit="epi/hpf" xsi:type= "PQ" value="2+" /> <interpretationCode codeSystem="local" code="*" /> <referenceRange> <observationRange> <text>0 - 1 +</text> </observationRange> </referenceRange> </ observation> </component> <component> <observation moodCode= "EVN" classCode="OBS"> <templateId root="216.840.1.291141.10.4.2 " /> <id nullFlavor="NA" /> <code codeSystem="local" code= "MUCUSU" displayName="UA MUCUS" /> <statusCode code="completed" /> <effectiveTime value="" /> <value unit="" xsi:type= "PQ" value="2+" /> <interpretationCode codeSystem="local" code="*" /> <referenceRange> <observationRange> <text>NEG TO 1+</text> </observationRange> </referenceRange> </ observation> </component> <component> <observation moodCode= "EVN" classCode="OBS"> <templateId root="16.840.1.641405.02.09.22.4.2 " /> <id nullFlavor="NA" /> <code codeSystem="local" code= "RBCU" displayName="UA RBC" /> <statusCode code="completed" /> <effectiveTime value="585393188571" /> <value unit="rbc/hpf" xsi:type ="PQ" value="0-3" /> <referenceRange> <observationRange> <text>0 - 3</text> </observationRange> </ referenceRange> </observation> </component> <component> <observation moodCode="EVN" classCode="OBS"> <templateId root= "216.840.1.290837...4.2" /> <id nullFlavor="NA" /> < code codeSystem="local" code="UAVOL" displayName="UA VOLUME FOR EXAM" /> <statusCode code="completed" /> <effectiveTime value="998176681147" /> <value unit="mL" xsi:type="PQ" value="12.0" /> < referenceRange> <observationRange> <text>(12mL STD)</ text> </observationRange> </referenceRange> </ observation> </component> <component> <observation moodCode= "EVN" classCode="OBS"> <templateId root="216.840.1.218416.10..4.2 " /> <id nullFlavor="NA" /> <code codeSystem="local" code= "WBCU" displayName="UA WBC" /> <statusCode code="completed" /> <effectiveTime value="925520149068" /> <value unit="wbc/hpf" xsi:type ="PQ" value="2-5" /> <referenceRange> <observationRange> <text>0 - 5</text> </observationRange> </ referenceRange> </observation> </component> </organizer> </entry > <entry> <organizer moodCode="EVN" classCode="BATTERY"> <templateId root="06.08.840.1.975880.10..4.1" /> <id nullFlavor="NA" /> <code codeSystem="local" code="DIMER" displayName="D-DIMER QUANT" /> <statusCode code="completed" /> <component> <observation moodCode="EVN" classCode="OBS"> <templateId root="16.840.1.163800.10.22.4.2" /> <id nullFlavor="NA" /> <code codeSystem="local" code="DIMER" displayName="D-DIMER QUANT" /> <statusCode code="completed" /> <effectiveTime value="803318999520" /> <value unit="ng/mL" xsi:type= "PQ" value="< 150" /> <referenceRange> <observationRange > <text>0-229</text> </observationRange> </ referenceRange> </observation> </component> </organizer> </entry > <entry> <organizer moodCode="EVN" classCode="BATTERY"> <templateId root="216.840.1.139495.10..4.1" /> <id nullFlavor="NA" /> <code codeSystem="local" code="CBCD" displayName="CBC W/DIFF" /> <statusCode code ="completed" /> <component> <observation moodCode="EVN" classCode= "OBS"> <templateId root="216.840.1.873813.02.09.22.4.2" /> < id nullFlavor="NA" /> <code codeSystem="local" code="EO#" displayName= "EOSINOPHIL #" /> <statusCode code="completed" /> < effectiveTime value="" /> <value unit="k/cumm" xsi:type="PQ " value="0.1" /> <referenceRange> <observationRange> <text>0.1-0.5</text> </observationRange> </ referenceRange> </observation> </component> <component> <observation moodCode="EVN" classCode="OBS"> <templateId root= "216.840.1.364652.02.09.22.4.2" /> <id nullFlavor="NA" /> < code codeSystem="local" code="EO%" displayName="EOSINOPHIL %" /> <statusCode code="completed" /> <effectiveTime value="" /> <value unit="%" xsi:type="PQ" value="1" /> < interpretationCode codeSystem="local" code="*" /> <referenceRange> <observationRange> <text>2-4</text> </ observationRange> </referenceRange> </observation> </ component> <component> <observation moodCode="EVN" classCode="OBS"> <templateId root="16.840.1.663045.02.09.22.4.2" /> <id nullFlavor="NA" /> <code codeSystem="local" code="GR#" displayName= "GRANULOCYTE #" /> <statusCode code="completed" /> < effectiveTime value="" /> <value unit="k/cumm" xsi:type="PQ " value="4.8" /> <referenceRange> <observationRange> <text>2.0-9.0</text> </observationRange> </ referenceRange> </observation> </component> <component> <observation moodCode="EVN" classCode="OBS"> <templateId root= "06.08.840.1.340345.02.09.22.4.2" /> <id nullFlavor="NA" /> < code codeSystem="local" code="GR%" displayName="GRANULOCYTE %" /> <statusCode code="completed" /> <effectiveTime value=" " /> <value unit="%" xsi:type="PQ" value="62" /> < referenceRange> <observationRange> <text>50-75</text> </observationRange> </referenceRange> </observation> </component> <component> <observation moodCode="EVN" classCode= "OBS"> <templateId root="06.08.840.1.501778.02.09.22.4.2" /> < id nullFlavor="NA" /> <code codeSystem="local" code="LY#" displayName= "LYMPHOCYTE #" /> <statusCode code="completed" /> < effectiveTime value="" /> <value unit="k/cumm" xsi:type="PQ " value="2.4" /> <referenceRange> <observationRange> <text>1.0-4.0</text> </observationRange> </ referenceRange> </observation> </component> <component> <observation moodCode="EVN" classCode="OBS"> <templateId root= "16.840.1.392792.02.09.22.4.2" /> <id nullFlavor="NA" /> < code codeSystem="local" code="LY%" displayName="LYMPHOCYTE %" /> <statusCode code="completed" /> <effectiveTime value="" /> <value unit="%" xsi:type="PQ" value="31" /> < interpretationCode codeSystem="local" code="*" /> <referenceRange> <observationRange> <text>20-30</text> </ observationRange> </referenceRange> </observation> </ component> <component> <observation moodCode="EVN" classCode="OBS"> <templateId root="16.840.1.689007.02.09.22.4.2" /> <id nullFlavor="NA" /> <code codeSystem="local" code="MCH" displayName= "MEAN CELL HGB" /> <statusCode code="completed" /> < effectiveTime value="" /> <value unit="pg" xsi:type="PQ" value="34.5" /> <interpretationCode codeSystem="local" code="*" /> <referenceRange> <observationRange> <text>27.0- 33.0</text> </observationRange> </referenceRange> </ observation> </component> <component> <observation moodCode= "EVN" classCode="OBS"> <templateId root="06.08.840.1.963742.10..22.4.2 " /> <id nullFlavor="NA" /> <code codeSystem="local" code= "MCHC" displayName="MEAN CELL HGB CONCENTRATION" /> <statusCode code= "completed" /> <effectiveTime value="" /> <value unit="g/dL" xsi:type="PQ" value="33.1" /> <referenceRange> < observationRange> <text>32.0-37.0</text> </ observationRange> </referenceRange> </observation> </ component> <component> <observation moodCode="EVN" classCode="OBS"> <templateId root="840.1.791805.22.4.2" /> <id nullFlavor="NA" /> <code codeSystem="local" code="MCV" displayName= "MEAN CELL VOLUME" /> <statusCode code="completed" /> < effectiveTime value="" /> <value unit="fl" xsi:type="PQ" value="104.2" /> <interpretationCode codeSystem="local" code="*" /> <referenceRange> <observationRange> <text>80.0- 100.0</text> </observationRange> </referenceRange> </ observation> </component> <component> <observation moodCode= "EVN" classCode="OBS"> <templateId root="06.08.840.1.284663.10.22.4.2 " /> <id nullFlavor="NA" /> <code codeSystem="local" code="MO# " displayName="MONOCYTE #" /> <statusCode code="completed" /> <effectiveTime value="" /> <value unit="k/cumm" xsi:type= "PQ" value="0.5" /> <referenceRange> <observationRange> <text>0.1-1.0</text> </observationRange> </ referenceRange> </observation> </component> <component> <observation moodCode="EVN" classCode="OBS"> <templateId root= "216.840.1.017613.10..22.4.2" /> <id nullFlavor="NA" /> < code codeSystem="local" code="MO%" displayName="MONOCYTE %" /> <statusCode code="completed" /> <effectiveTime value="" /> <value unit="%" xsi:type="PQ" value="6" /> < referenceRange> <observationRange> <text>4-6</text> </observationRange> </referenceRange> </observation> </component> <component> <observation moodCode="EVN" classCode= "OBS"> <templateId root="06.08.840.1.838709.02.09.22.4.2" /> < id nullFlavor="NA" /> <code codeSystem="local" code="RBC" displayName= "RED BLOOD CELL" /> <statusCode code="completed" /> < effectiveTime value="" /> <value unit="m/cumm" xsi:type="PQ " value="3.83" /> <interpretationCode codeSystem="local" code="*" /> <referenceRange> <observationRange> <text>4.00- 6.00</text> </observationRange> </referenceRange> </ observation> </component> <component> <observation moodCode= "EVN" classCode="OBS"> <templateId root="16.840.1.991725....4.2 " /> <id nullFlavor="NA" /> <code codeSystem="local" code="RDW " displayName="RED CELL DISTRIBUTION WIDTH" /> <statusCode code= "completed" /> <effectiveTime value="" /> <value unit="%" xsi:type="PQ" value="12.1" /> <referenceRange> <observationRange> <text>11.0-15.6</text> </ observationRange> </referenceRange> </observation> </ component> <component> <observation moodCode="EVN" classCode="OBS"> <templateId root="216.840.1.090113.10..22.4.2" /> <id nullFlavor="NA" /> <code codeSystem="local" code="WBC" displayName= "WHITE BLOOD CELL" /> <statusCode code="completed" /> < effectiveTime value="" /> <value unit="k/cumm" xsi:type="PQ " value="7.8" /> <referenceRange> <observationRange> <text>5.0-10.0</text> </observationRange> </ referenceRange> </observation> </component> <component> <observation moodCode="EVN" classCode="OBS"> <templateId root= "06.08.840.1.941712.10..22.4.2" /> <id nullFlavor="NA" /> < code codeSystem="local" code="HGBT" displayName="HEMOGLOBIN" /> < statusCode code="completed" /> <effectiveTime value="" /> <value unit="gm/dL" xsi:type="PQ" value="13.2" /> < referenceRange> <observationRange> <text>12.0-16.0</text > </observationRange> </referenceRange> </observation > </component> <component> <observation moodCode="EVN" classCode="OBS"> <templateId root="2.840.1.786822.02.09.22.4.2" /> <id nullFlavor="NA" /> <code codeSystem="local" code="HCTT" displayName="HEMATOCRIT" /> <statusCode code="completed" /> < effectiveTime value="" /> <value unit="%" xsi:type="PQ " value="39.9" /> <referenceRange> <observationRange> <text>37.0-47.0</text> </observationRange> </ referenceRange> </observation> </component> <component> <observation moodCode="EVN" classCode="OBS"> <templateId root= "06.08.840.1.813996.02.09.22.4.2" /> <id nullFlavor="NA" /> < code codeSystem="local" code="PLT" displayName="PLATELET COUNT" /> < statusCode code="completed" /> <effectiveTime value="" /> <value unit="k/cumm" xsi:type="PQ" value="309" /> < referenceRange> <observationRange> <text>150-450</text> </observationRange> </referenceRange> </observation > </component> </organizer> </entry> <entry> <organizer moodCode= "EVN" classCode="BATTERY"> <templateId root="06.08.840.1.539637.02.09.22.4.1 " /> <id nullFlavor="NA" /> <code codeSystem="local" code="UA" displayName="URINALYSIS, ROUTINE" /> <statusCode code="completed" /> < component> <observation moodCode="EVN" classCode="OBS"> < templateId root="16.840.1.482444.10.4.2" /> <id nullFlavor="NA " /> <code codeSystem="local" code="LEUESU" displayName="UA LEUKOCYTE ESTERASE DIPSTICK" /> <statusCode code="completed" /> < effectiveTime value="" /> <value unit="" xsi:type="PQ" value="TRACE" /> <referenceRange> <observationRange> <text>NEGATIVE</text> </observationRange> </ referenceRange> </observation> </component> <component> <observation moodCode="EVN" classCode="OBS"> <templateId root= "16.840.1.289927.10..4.2" /> <id nullFlavor="NA" /> < code codeSystem="local" code="NITRIU" displayName="UA NITRITE DIPSTICK" /> <statusCode code="completed" /> <effectiveTime value=" " /> <value unit="" xsi:type="PQ" value="NEGATIVE" /> < referenceRange> <observationRange> <text>NEGATIVE</text > </observationRange> </referenceRange> </observation > </component> <component> <observation moodCode="EVN" classCode="OBS"> <templateId root="16.840.1.429052.10...4.2" /> <id nullFlavor="NA" /> <code codeSystem="local" code="PROTEIU " displayName="UA PROTEIN DIPSTICK" /> <statusCode code="completed" /> <effectiveTime value="" /> <value unit="" xsi: type="PQ" value="1+" /> <interpretationCode codeSystem="local" code="* " /> <referenceRange> <observationRange> <text> NEGATIVE</text> </observationRange> </referenceRange> </observation> </component> <component> <observation moodCode ="EVN" classCode="OBS"> <templateId root= "16.840.1.875470.02.09.22.4.2" /> <id nullFlavor="NA" /> < code codeSystem="local" code="DGLUU" displayName="UA GLUCOSE DIPSTICK" /> <statusCode code="completed" /> <effectiveTime value=" " /> <value unit="" xsi:type="PQ" value="NEGATIVE" /> < referenceRange> <observationRange> <text>NEGATIVE</text > </observationRange> </referenceRange> </observation > </component> <component> <observation moodCode="EVN" classCode="OBS"> <templateId root="216.840.1.574291.02.09.22.4.2" /> <id nullFlavor="NA" /> <code codeSystem="local" code="KETONU" displayName="UA KETONE DIPSTICK" /> <statusCode code="completed" /> <effectiveTime value="" /> <value unit="" xsi:type= "PQ" value="NEGATIVE" /> <referenceRange> <observationRange > <text>NEGATIVE</text> </observationRange> </ referenceRange> </observation> </component> <component> <observation moodCode="EVN" classCode="OBS"> <templateId root= "216.840.1.426237.02.09.22.4.2" /> <id nullFlavor="NA" /> < code codeSystem="local" code="UROBILU" displayName="UA UROBILINOGEN DIPSTICK" / > <statusCode code="completed" /> <effectiveTime value= "" /> <value unit="" xsi:type="PQ" value="NORMAL" /> <referenceRange> <observationRange> <text>NORMAL</ text> </observationRange> </referenceRange> </ observation> </component> <component> <observation moodCode= "EVN" classCode="OBS"> <templateId root="216.840.1.694405.10..22.4.2 " /> <id nullFlavor="NA" /> <code codeSystem="local" code= "BILU" displayName="UA BILIRUBIN DIPSTICK" /> <statusCode code= "completed" /> <effectiveTime value="" /> <value unit="" xsi:type="PQ" value="NEGATIVE" /> <referenceRange> < observationRange> <text>NEGATIVE</text> </ observationRange> </referenceRange> </observation> </ component> <component> <observation moodCode="EVN" classCode="OBS"> <templateId root="16.840.1.394058...4.2" /> <id nullFlavor="NA" /> <code codeSystem="local" code="SPENCER" displayName="UA BLOOD DIPSTICK" /> <statusCode code="completed" /> < effectiveTime value="" /> <value unit="" xsi:type="PQ" value="NEGATIVE" /> <referenceRange> <observationRange> <text>NEGATIVE</text> </observationRange> </ referenceRange> </observation> </component> <component> <observation moodCode="EVN" classCode="OBS"> <templateId root= "16.840.1.144871.02.09.22.4.2" /> <id nullFlavor="NA" /> < code codeSystem="local" code="SPGRU" displayName="UA SPECIFIC GRAVITY" /> <statusCode code="completed" /> <effectiveTime value=" " /> <value unit="" xsi:type="PQ" value="1.025" /> < referenceRange> <observationRange> <text>1.015-1.025</ text> </observationRange> </referenceRange> </ observation> </component> <component> <observation moodCode= "EVN" classCode="OBS"> <templateId root="216.840.1.902396.10..4.2 " /> <id nullFlavor="NA" /> <code codeSystem="local" code="FEROZ " displayName="UR PH" /> <statusCode code="completed" /> < effectiveTime value="" /> <value unit="" xsi:type="PQ" value="5.0" /> <referenceRange> <observationRange> <text>5.0-7.0</text> </observationRange> </ referenceRange> </observation> </component> </organizer> </entry > <entry> <organizer moodCode="EVN" classCode="BATTERY"> <templateId root="2.16.840.1.867404.10...4.1" /> <id nullFlavor="NA" /> <code codeSystem="local" code="UAMICRO" displayName="UA MICROSCOPIC" /> < statusCode code="completed" /> <component> <observation moodCode= "EVN" classCode="OBS"> <templateId root="2.16.840.1.048479.10..22.4.2 " /> <id nullFlavor="NA" /> <code codeSystem="local" code= "BACU" displayName="UA BACTERIA" /> <statusCode code="completed" /> <effectiveTime value="" /> <value unit="" xsi:type= "PQ" value="1+" /> <interpretationCode codeSystem="local" code="*" /> <referenceRange> <observationRange> <text> NEGATIVE</text> </observationRange> </referenceRange> </observation> </component> <component> <observation moodCode ="EVN" classCode="OBS"> <templateId root= "16.840.1.520223.10..22.4.2" /> <id nullFlavor="NA" /> < code codeSystem="local" code="EPIU" displayName="UA EPITHELIAL CELLS" /> <statusCode code="completed" /> <effectiveTime value="" /> <value unit="epi/hpf" xsi:type="PQ" value="2+" /> < interpretationCode codeSystem="local" code="*" /> <referenceRange> <observationRange> <text>0 - 1+</text> </ observationRange> </referenceRange> </observation> </ component> <component> <observation moodCode="EVN" classCode="OBS"> <templateId root="16.840.1.509857.02.09.22.4.2" /> <id nullFlavor="NA" /> <code codeSystem="local" code="MUCUSU" displayName= "UA MUCUS" /> <statusCode code="completed" /> <effectiveTime value="" /> <value unit="" xsi:type="PQ" value="3+" /> <interpretationCode codeSystem="local" code="*" /> < referenceRange> <observationRange> <text>NEG TO 1+</text > </observationRange> </referenceRange> </observation > </component> <component> <observation moodCode="EVN" classCode="OBS"> <templateId root="16.840.1.409276.10..4.2" /> <id nullFlavor="NA" /> <code codeSystem="local" code="UAVOL" displayName="UA VOLUME FOR EXAM" /> <statusCode code="completed" /> <effectiveTime value="" /> <value unit="mL" xsi:type ="PQ" value="12.0" /> <referenceRange> <observationRange> <text>(12mL STD)</text> </observationRange> </ referenceRange> </observation> </component> <component> <observation moodCode="EVN" classCode="OBS"> <templateId root= "216.840.1.385368.10.20.22.4.2" /> <id nullFlavor="NA" /> < code codeSystem="local" code="WBCU" displayName="UA WBC" /> < statusCode code="completed" /> <effectiveTime value="" /> <value unit="wbc/hpf" xsi:type="PQ" value="0-1" /> < referenceRange> <observationRange> <text>0 - 5</text> </observationRange> </referenceRange> </observation> </component> </organizer> </entry> <entry> <organizer moodCode="EVN " classCode="BATTERY"> <templateId root="216.840.1.068224.10..22.4.1" / > <id nullFlavor="NA" /> <code codeSystem="local" code="PREGU" displayName="UR TEST" /> <statusCode code="completed" /> < component> <observation moodCode="EVN" classCode="OBS"> < templateId root="16.840.1.327395.10.20.22.4.2" /> <id nullFlavor="NA " /> <code codeSystem="local" code="PREGU" displayName="UR TEST" /> <statusCode code="completed" /> <effectiveTime value= "" /> <value unit="" xsi:type="PQ" value="NEGATIVE" /> <referenceRange> <observationRange> <text>NEGATIVE </text> </observationRange> </referenceRange> </ observation> </component> </organizer> </entry> <entry> <organizer moodCode="EVN" classCode="BATTERY"> <templateId root= "216.840.1.759018.10..22.4.1" /> <id nullFlavor="NA" /> <code codeSystem="local" code="METABC" displayName="METABOLIC PANEL, COMPREHN" /> <statusCode code="completed" /> <component> <observation moodCode= "EVN" classCode="OBS"> <templateId root="2.16.840.1.810101....4.2 " /> <id nullFlavor="NA" /> <code codeSystem="local" code="K" displayName="POTASSIUM" /> <statusCode code="completed" /> < effectiveTime value="" /> <value unit="mmol/L" xsi:type="PQ " value="3.5" /> <referenceRange> <observationRange> <text>3.5-5.3</text> </observationRange> </ referenceRange> </observation> </component> <component> <observation moodCode="EVN" classCode="OBS"> <templateId root= "216.840.1.786733.10..22.4.2" /> <id nullFlavor="NA" /> < code codeSystem="local" code="eGFR" displayName="EST GFR (MDRD)" /> < statusCode code="completed" /> <effectiveTime value="" /> <value unit="mL/min" xsi:type="PQ" value="> 60" /> < referenceRange> <observationRange> <text>> 59</text> </observationRange> </referenceRange> </observation > </component> <component> <observation moodCode="EVN" classCode="OBS"> <templateId root="216.840.1.134612.10..22.4.2" /> <id nullFlavor="NA" /> <code codeSystem="local" code="GAP" displayName="ANION GAP" /> <statusCode code="completed" /> < effectiveTime value="" /> <value unit="mmol/L" xsi:type="PQ " value="9" /> <referenceRange> <observationRange> <text>5-15</text> </observationRange> </referenceRange > </observation> </component> <component> <observation moodCode="EVN" classCode="OBS"> <templateId root= "216.840.1.529455.10...4.2" /> <id nullFlavor="NA" /> < code codeSystem="local" code="eCrCl" displayName="EST CrCl (CG)" /> < statusCode code="completed" /> <effectiveTime value="" /> <value unit="mL/min" xsi:type="PQ" value="> 60" /> < referenceRange> <observationRange> <text>> 59</text> </observationRange> </referenceRange> </observation > </component> <component> <observation moodCode="EVN" classCode="OBS"> <templateId root="16.840.1.231202.10..22.4.2" /> <id nullFlavor="NA" /> <code codeSystem="local" code="GLU" displayName="GLUCOSE" /> <statusCode code="completed" /> < effectiveTime value="" /> <value unit="mg/dL" xsi:type="PQ " value="79" /> <referenceRange> <observationRange> <text>70-99</text> </observationRange> </ referenceRange> </observation> </component> <component> <observation moodCode="EVN" classCode="OBS"> <templateId root= "216.840.1.456946.10.22.4.2" /> <id nullFlavor="NA" /> < code codeSystem="local" code="CA" displayName="CALCIUM" /> <statusCode code="completed" /> <effectiveTime value="" /> < value unit="mg/dL" xsi:type="PQ" value="9.2" /> <referenceRange> <observationRange> <text>8.5-10.1</text> </ observationRange> </referenceRange> </observation> </ component> <component> <observation moodCode="EVN" classCode="OBS"> <templateId root="216.840.1.470399.22.4.2" /> <id nullFlavor="NA" /> <code codeSystem="local" code="BUN" displayName= "BLOOD UREA NITROGEN" /> <statusCode code="completed" /> < effectiveTime value="" /> <value unit="mg/dL" xsi:type="PQ " value="14" /> <referenceRange> <observationRange> <text>7-20</text> </observationRange> </referenceRange > </observation> </component> <component> <observation moodCode="EVN" classCode="OBS"> <templateId root= "216.840.1.957421.10.22.4.2" /> <id nullFlavor="NA" /> < code codeSystem="local" code="CREAT" displayName="CREATININE" /> < statusCode code="completed" /> <effectiveTime value="" /> <value unit="mg/dL" xsi:type="PQ" value="0.7" /> < referenceRange> <observationRange> <text>0.6-1.0</text> </observationRange> </referenceRange> </observation > </component> <component> <observation moodCode="EVN" classCode="OBS"> <templateId root="216.840.1.080749.10...4.2" /> <id nullFlavor="NA" /> <code codeSystem="local" code="NA" displayName="SODIUM" /> <statusCode code="completed" /> < effectiveTime value="" /> <value unit="mmol/L" xsi:type="PQ " value="141" /> <referenceRange> <observationRange> <text>135-148</text> </observationRange> </ referenceRange> </observation> </component> <component> <observation moodCode="EVN" classCode="OBS"> <templateId root= "16.840.1.839442.10..4.2" /> <id nullFlavor="NA" /> < code codeSystem="local" code="CL" displayName="CHLORIDE" /> < statusCode code="completed" /> <effectiveTime value="" /> <value unit="mmol/L" xsi:type="PQ" value="103" /> < referenceRange> <observationRange> <text>98-110</text> </observationRange> </referenceRange> </observation> </component> <component> <observation moodCode="EVN" classCode ="OBS"> <templateId root="16.840.1.119095.10..4.2" /> < id nullFlavor="NA" /> <code codeSystem="local" code="AST" displayName= "AST/SGOT" /> <statusCode code="completed" /> <effectiveTime value="" /> <value unit="Units/L" xsi:type="PQ" value="12" /> <referenceRange> <observationRange> <text>10 -37</text> </observationRange> </referenceRange> </ observation> </component> <component> <observation moodCode= "EVN" classCode="OBS"> <templateId root="16.840.1.839342.10..22.4.2 " /> <id nullFlavor="NA" /> <code codeSystem="local" code="ALT " displayName="ALT/SGPT" /> <statusCode code="completed" /> < effectiveTime value="" /> <value unit="Units/L" xsi:type= "PQ" value="16" /> <referenceRange> <observationRange> <text>< 66</text> </observationRange> </ referenceRange> </observation> </component> <component> <observation moodCode="EVN" classCode="OBS"> <templateId root= "06.08.840.1.650384.10...4.2" /> <id nullFlavor="NA" /> < code codeSystem="local" code="CO2" displayName="CARBON DIOXIDE" /> < statusCode code="completed" /> <effectiveTime value="" /> <value unit="mmol/L" xsi:type="PQ" value="29" /> < referenceRange> <observationRange> <text>21-32</text> </observationRange> </referenceRange> </observation> </component> <component> <observation moodCode="EVN" classCode= "OBS"> <templateId root="06.08.840.1.872292.10.20.22.4.2" /> < id nullFlavor="NA" /> <code codeSystem="local" code="TP" displayName= "TOTAL PROTEIN" /> <statusCode code="completed" /> < effectiveTime value="" /> <value unit="gm/dL" xsi:type="PQ " value="8.2" /> <referenceRange> <observationRange> <text>6.4-8.2</text> </observationRange> </ referenceRange> </observation> </component> <component> <observation moodCode="EVN" classCode="OBS"> <templateId root= "16.840.1.707589.10.22.4.2" /> <id nullFlavor="NA" /> < code codeSystem="local" code="ALB" displayName="ALBUMIN" /> < statusCode code="completed" /> <effectiveTime value="" /> <value unit="gm/dL" xsi:type="PQ" value="4.6" /> < referenceRange> <observationRange> <text>3.4-5.0</text> </observationRange> </referenceRange> </observation > </component> <component> <observation moodCode="EVN" classCode="OBS"> <templateId root="16.840.1.405251.10..22.4.2" /> <id nullFlavor="NA" /> <code codeSystem="local" code="BILTOT" displayName="BILI TOTAL" /> <statusCode code="completed" /> < effectiveTime value="" /> <value unit="mg/dL" xsi:type="PQ " value="0.3" /> <referenceRange> <observationRange> <text>0.0-1.0</text> </observationRange> </ referenceRange> </observation> </component> <component> <observation moodCode="EVN" classCode="OBS"> <templateId root= "16.840.1.601312.10..22.4.2" /> <id nullFlavor="NA" /> < code codeSystem="local" code="ALKP" displayName="ALKALINE PHOSPHATASE TOTAL" /> <statusCode code="completed" /> <effectiveTime value= "" /> <value unit="IU/L" xsi:type="PQ" value="55" /> <referenceRange> <observationRange> <text>45-117</ text> </observationRange> </referenceRange> </ observation> </component> </organizer> </entry> <entry> <organizer moodCode="EVN" classCode="BATTERY"> <templateId root= "216.840.1.437616.10...4.1" /> <id nullFlavor="NA" /> <code codeSystem="local" code="LIP" displayName="LIPASE" /> <statusCode code= "completed" /> <component> <observation moodCode="EVN" classCode= "OBS"> <templateId root="216.840.1.653271.10..22.4.2" /> < id nullFlavor="NA" /> <code codeSystem="local" code="LIP" displayName= "LIPASE" /> <statusCode code="completed" /> <effectiveTime value="" /> <value unit="Units/L" xsi:type="PQ" value="117 " /> <referenceRange> <observationRange> <text> 73-393</text> </observationRange> </referenceRange> < /observation> </component> </organizer> </entry> <entry> < organizer moodCode="EVN" classCode="BATTERY"> <templateId root= "16.840.1.842969.10..22.4.1" /> <id nullFlavor="NA" /> <code codeSystem="local" code="CBCWD" displayName="CBC With Platelet and Differential " /> <statusCode code="completed" /> <component> <observation moodCode="EVN" classCode="OBS"> <templateId root= "16.840.1.055262.02.09.22.4.2" /> <id nullFlavor="NA" /> < code codeSystem="local" code="ABASR" displayName="Absolute Basophils" /> <statusCode code="completed" /> <effectiveTime value="619842245730" /> <value unit="10*3/uL" xsi:type="PQ" value="0.01" /> < referenceRange> <observationRange> <text>0.00-0.20</text > </observationRange> </referenceRange> </observation > </component> <component> <observation moodCode="EVN" classCode="OBS"> <templateId root="06.08.840.1.301825.02.09.224.2" /> <id nullFlavor="NA" /> <code codeSystem="local" code="AEOSR" displayName="Absolute Eosinophils" /> <statusCode code="completed" /> <effectiveTime value="174763075360" /> <value unit="10*3/uL" xsi:type="PQ" value="0.03" /> <referenceRange> < observationRange> <text>0.00-0.50</text> </ observationRange> </referenceRange> </observation> </ component> <component> <observation moodCode="EVN" classCode="OBS"> <templateId root="06.08.840.1.962714.02.09.22.4.2" /> <id nullFlavor="NA" /> <code codeSystem="local" code="ALYMR" displayName= "Absolute Lymphocytes" /> <statusCode code="completed" /> < effectiveTime value="470327511434" /> <value unit="10*3/uL" xsi:type= "PQ" value="2.39" /> <referenceRange> <observationRange> <text>0.80-3.30</text> </observationRange> </ referenceRange> </observation> </component> <component> <observation moodCode="EVN" classCode="OBS"> <templateId root= "16.840.1.888969.02.09.22.4.2" /> <id nullFlavor="NA" /> < code codeSystem="local" code="AMONR" displayName="Absolute Monocytes" /> <statusCode code="completed" /> <effectiveTime value="837145422063" /> <value unit="10*3/uL" xsi:type="PQ" value="0.49" /> < referenceRange> <observationRange> <text>0.30-1.00</text > </observationRange> </referenceRange> </observation > </component> <component> <observation moodCode="EVN" classCode="OBS"> <templateId root="06.08.840.1.196446.02.09.22.4.2" /> <id nullFlavor="NA" /> <code codeSystem="local" code="ASEGR" displayName="Absolute Neutrophils" /> <statusCode code="completed" /> <effectiveTime value="521171811062" /> <value unit="10*3/uL" xsi:type="PQ" value="5.31" /> <referenceRange> < observationRange> <text>1.90-7.00</text> </ observationRange> </referenceRange> </observation> </ component> <component> <observation moodCode="EVN" classCode="OBS"> <templateId root="06.08.840.1.372181.22.4.2" /> <id nullFlavor="NA" /> <code codeSystem="local" code="BASOR" displayName= "Basophils" /> <statusCode code="completed" /> <effectiveTime value="218810019589" /> <value unit="%" xsi:type="PQ" value="0" /> <referenceRange> <observationRange> <text>0-2< /text> </observationRange> </referenceRange> </ observation> </component> <component> <observation moodCode= "EVN" classCode="OBS"> <templateId root="2.16.840.1.980538.02.09.22.4.2 " /> <id nullFlavor="NA" /> <code codeSystem="local" code= "EOSR" displayName="Eosinophils" /> <statusCode code="completed" /> <effectiveTime value="135817399020" /> <value unit="%" xsi: type="PQ" value="0" /> <referenceRange> <observationRange> <text>0-4</text> </observationRange> </ referenceRange> </observation> </component> <component> <observation moodCode="EVN" classCode="OBS"> <templateId root= "2.16.840.1.204256.10...4.2" /> <id nullFlavor="NA" /> < code codeSystem="local" code="HCT" displayName="HCT" /> <statusCode code="completed" /> <effectiveTime value="651667114208" /> < value unit="%" xsi:type="PQ" value="44.1" /> <referenceRange> <observationRange> <text>37.0-47.0</text> </ observationRange> </referenceRange> </observation> </ component> <component> <observation moodCode="EVN" classCode="OBS"> <templateId root="216.840.1.389574.10.20.22.4.2" /> <id nullFlavor="NA" /> <code codeSystem="local" code="HGB" displayName="HGB " /> <statusCode code="completed" /> <effectiveTime value= "155434626739" /> <value unit="g/dL" xsi:type="PQ" value="14.7" /> <referenceRange> <observationRange> <text>12.0- 16.0</text> </observationRange> </referenceRange> </ observation> </component> <component> <observation moodCode= "EVN" classCode="OBS"> <templateId root="216.840.1.644718.10..4.2 " /> <id nullFlavor="NA" /> <code codeSystem="local" code= "IMGA" displayName="Immature Granulocytes" /> <statusCode code= "completed" /> <effectiveTime value="752841395183" /> <value unit="%" xsi:type="PQ" value="0.4" /> <referenceRange> < observationRange> <text>0.0-1.0</text> </ observationRange> </referenceRange> </observation> </ component> <component> <observation moodCode="EVN" classCode="OBS"> <templateId root="16.840.1.091805.10.20.22.4.2" /> <id nullFlavor="NA" /> <code codeSystem="local" code="LYMPR" displayName= "Lymphocytes" /> <statusCode code="completed" /> < effectiveTime value="523189513647" /> <value unit="%" xsi:type="PQ " value="29" /> <referenceRange> <observationRange> <text>20-46</text> </observationRange> </ referenceRange> </observation> </component> <component> <observation moodCode="EVN" classCode="OBS"> <templateId root= "216.840.1.318775.10..4.2" /> <id nullFlavor="NA" /> < code codeSystem="local" code="MCH" displayName="MCH" /> <statusCode code="completed" /> <effectiveTime value="938972667556" /> < value unit="pg" xsi:type="PQ" value="34.2" /> <interpretationCode codeSystem="local" code="*" /> <referenceRange> < observationRange> <text>27.0-32.0</text> </ observationRange> </referenceRange> </observation> </ component> <component> <observation moodCode="EVN" classCode="OBS"> <templateId root="06.08.840.1.398419.02.09.224.2" /> <id nullFlavor="NA" /> <code codeSystem="local" code="MCHC" displayName= "MCHC" /> <statusCode code="completed" /> <effectiveTime value ="703575980426" /> <value unit="g/dL" xsi:type="PQ" value="33.3" /> <referenceRange> <observationRange> <text>32.0- 36.0</text> </observationRange> </referenceRange> </ observation> </component> <component> <observation moodCode= "EVN" classCode="OBS"> <templateId root="16.840.1.700041.02.09.22.4.2 " /> <id nullFlavor="NA" /> <code codeSystem="local" code="MCV " displayName="MCV" /> <statusCode code="completed" /> < effectiveTime value="485437007001" /> <value unit="fL" xsi:type="PQ" value="102.6" /> <interpretationCode codeSystem="local" code="*" /> <referenceRange> <observationRange> <text>82.0- 99.0</text> </observationRange> </referenceRange> </ observation> </component> <component> <observation moodCode= "EVN" classCode="OBS"> <templateId root="06.08.840.1.529363.1022.4.2 " /> <id nullFlavor="NA" /> <code codeSystem="local" code= "MONOR" displayName="Monocytes" /> <statusCode code="completed" /> <effectiveTime value="442488661604" /> <value unit="%" xsi: type="PQ" value="6" /> <referenceRange> <observationRange> <text>4-11</text> </observationRange> </ referenceRange> </observation> </component> <component> <observation moodCode="EVN" classCode="OBS"> <templateId root= "06.08.840.1.578968...22.4.2" /> <id nullFlavor="NA" /> < code codeSystem="local" code="MPV" displayName="MPV" /> <statusCode code="completed" /> <effectiveTime value="615276381366" /> < value unit="fL" xsi:type="PQ" value="9.2" /> <interpretationCode codeSystem="local" code="*" /> <referenceRange> < observationRange> <text>9.4-12.4</text> </ observationRange> </referenceRange> </observation> </ component> <component> <observation moodCode="EVN" classCode="OBS"> <templateId root="840.1.712568.10...4.2" /> <id nullFlavor="NA" /> <code codeSystem="local" code="SEGR" displayName= "Neutrophils" /> <statusCode code="completed" /> < effectiveTime value="397669625279" /> <value unit="%" xsi:type="PQ " value="64" /> <referenceRange> <observationRange> <text>51-75</text> </observationRange> </ referenceRange> </observation> </component> <component> <observation moodCode="EVN" classCode="OBS"> <templateId root= "216.840.1.324047.02.09.22.4.2" /> <id nullFlavor="NA" /> < code codeSystem="local" code="NRBCA" displayName="Nucleated RBC Automated" /> <statusCode code="completed" /> <effectiveTime value= "385128558297" /> <value unit="/100WBC" xsi:type="PQ" value="0.0" /> <referenceRange> <observationRange> <text /> </observationRange> </referenceRange> </observation> </component> <component> <observation moodCode="EVN" classCode= "OBS"> <templateId root="216.840.1.404711.10..4.2" /> < id nullFlavor="NA" /> <code codeSystem="local" code="PLT" displayName= "Platelet Count" /> <statusCode code="completed" /> < effectiveTime value="836644384888" /> <value unit="K/uL" xsi:type="PQ" value="290" /> <referenceRange> <observationRange> <text>150-400</text> </observationRange> </ referenceRange> </observation> </component> <component> <observation moodCode="EVN" classCode="OBS"> <templateId root= "216.840.1.333740.10..22.4.2" /> <id nullFlavor="NA" /> < code codeSystem="local" code="RBC" displayName="RBC" /> <statusCode code="completed" /> <effectiveTime value="722413276745" /> < value unit="10*6/uL" xsi:type="PQ" value="4.30" /> <referenceRange> <observationRange> <text>4.00-5.20</text> </ observationRange> </referenceRange> </observation> </ component> <component> <observation moodCode="EVN" classCode="OBS"> <templateId root="16.840.1.208665...4.2" /> <id nullFlavor="NA" /> <code codeSystem="local" code="RDW" displayName="RDW " /> <statusCode code="completed" /> <effectiveTime value= "113228097131" /> <value unit="%" xsi:type="PQ" value="12.7" /> <referenceRange> <observationRange> <text>11.5- 14.5</text> </observationRange> </referenceRange> </ observation> </component> <component> <observation moodCode= "EVN" classCode="OBS"> <templateId root="06.08.840.1.596065.10.20.22.4.2 " /> <id nullFlavor="NA" /> <code codeSystem="local" code= "WBCIR" displayName="WBC" /> <statusCode code="completed" /> < effectiveTime value="388219835899" /> <value unit="K/uL" xsi:type="PQ" value="8.3" /> <referenceRange> <observationRange> <text>4.8-10.8</text> </observationRange> </ referenceRange> </observation> </component> </organizer> </entry > <entry> <organizer moodCode="EVN" classCode="BATTERY"> <templateId root="16.840.1.638919.10..22.4.1" /> <id nullFlavor="NA" /> <code codeSystem="local" code="CMP" displayName="Comprehensive Metabolic Panel (CMP)" /> <statusCode code="completed" /> <component> <observation moodCode="EVN" classCode="OBS"> <templateId root= "16.840.1.168810.10...4.2" /> <id nullFlavor="NA" /> < code codeSystem="local" code="ALB" displayName="Albumin" /> < statusCode code="completed" /> <effectiveTime value="291421817141" /> <value unit="g/dL" xsi:type="PQ" value="4.9" /> < interpretationCode codeSystem="local" code="*" /> <referenceRange> <observationRange> <text>3.5-4.8</text> </ observationRange> </referenceRange> </observation> </ component> <component> <observation moodCode="EVN" classCode="OBS"> <templateId root="06.08.840.1.822832.10..4.2" /> <id nullFlavor="NA" /> <code codeSystem="local" code="ALP" displayName= "Alkaline Phosphatase" /> <statusCode code="completed" /> < effectiveTime value="830593325870" /> <value unit="U/L" xsi:type="PQ" value="59" /> <referenceRange> <observationRange> <text>26-104</text> </observationRange> </referenceRange > </observation> </component> <component> <observation moodCode="EVN" classCode="OBS"> <templateId root= "216.840.1.608449.10..4.2" /> <id nullFlavor="NA" /> < code codeSystem="local" code="ALT" displayName="ALT (SGPT)" /> < statusCode code="completed" /> <effectiveTime value="795353566395" /> <value unit="U/L" xsi:type="PQ" value="12" /> < interpretationCode codeSystem="local" code="*" /> <referenceRange> <observationRange> <text>14-54</text> </ observationRange> </referenceRange> </observation> </ component> <component> <observation moodCode="EVN" classCode="OBS"> <templateId root="06.08.840.1.481073.10..4.2" /> <id nullFlavor="NA" /> <code codeSystem="local" code="AGAP" displayName= "Anion Gap" /> <statusCode code="completed" /> <effectiveTime value="929236171208" /> <value unit="NA" xsi:type="PQ" value="10" /> <referenceRange> <observationRange> <text>3-20</ text> </observationRange> </referenceRange> </ observation> </component> <component> <observation moodCode= "EVN" classCode="OBS"> <templateId root="16.840.1.841687...4.2 " /> <id nullFlavor="NA" /> <code codeSystem="local" code="AST " displayName="AST (SGOT)" /> <statusCode code="completed" /> <effectiveTime value="766852538373" /> <value unit="U/L" xsi:type="PQ" value="17" /> <referenceRange> <observationRange> <text>15-41</text> </observationRange> </referenceRange > </observation> </component> <component> <observation moodCode="EVN" classCode="OBS"> <templateId root= "216.840.1.708631.10.22.4.2" /> <id nullFlavor="NA" /> < code codeSystem="local" code="BILIT" displayName="Bilirubin Total" /> < statusCode code="completed" /> <effectiveTime value="136967497714" /> <value unit="mg/dL" xsi:type="PQ" value="0.4" /> < referenceRange> <observationRange> <text>0.2-1.2</text> </observationRange> </referenceRange> </observation > </component> <component> <observation moodCode="EVN" classCode="OBS"> <templateId root="06.08.840.1.573366.02.09.22.4.2" /> <id nullFlavor="NA" /> <code codeSystem="local" code="BUN" displayName="BUN" /> <statusCode code="completed" /> < effectiveTime value="090032439220" /> <value unit="mg/dL" xsi:type="PQ " value="7" /> <referenceRange> <observationRange> <text>4-20</text> </observationRange> </referenceRange > </observation> </component> <component> <observation moodCode="EVN" classCode="OBS"> <templateId root= "16.840.1.812457.10.20.22.4.2" /> <id nullFlavor="NA" /> < code codeSystem="local" code="CA" displayName="Calcium" /> <statusCode code="completed" /> <effectiveTime value="760626002520" /> < value unit="mg/dL" xsi:type="PQ" value="9.5" /> <referenceRange> <observationRange> <text>8.6-10.0</text> </ observationRange> </referenceRange> </observation> </ component> <component> <observation moodCode="EVN" classCode="OBS"> <templateId root="06.08.840.1.815751.10.20.22.4.2" /> <id nullFlavor="NA" /> <code codeSystem="local" code="CL" displayName= "Chloride" /> <statusCode code="completed" /> <effectiveTime value="231021676905" /> <value unit="mEq/L" xsi:type="PQ" value="102" / > <referenceRange> <observationRange> <text>99- 109</text> </observationRange> </referenceRange> </ observation> </component> <component> <observation moodCode= "EVN" classCode="OBS"> <templateId root="06.08.840.1.967547..20.22.4.2 " /> <id nullFlavor="NA" /> <code codeSystem="local" code="CO2 " displayName="CO2" /> <statusCode code="completed" /> < effectiveTime value="608069460935" /> <value unit="mEq/L" xsi:type="PQ " value="24" /> <referenceRange> <observationRange> <text>22-32</text> </observationRange> </ referenceRange> </observation> </component> <component> <observation moodCode="EVN" classCode="OBS"> <templateId root= "06.08.840.1.566041.22.4.2" /> <id nullFlavor="NA" /> < code codeSystem="local" code="CREAT" displayName="Creatinine" /> < statusCode code="completed" /> <effectiveTime value="434597212555" /> <value unit="mg/dL" xsi:type="PQ" value="0.61" /> < referenceRange> <observationRange> <text>0.44-1.03</text > </observationRange> </referenceRange> </observation > </component> <component> <observation moodCode="EVN" classCode="OBS"> <templateId root="2.16.840.1.878419.02.09.22.4.2" /> <id nullFlavor="NA" /> <code codeSystem="local" code="GLOB" displayName="Globulin" /> <statusCode code="completed" /> < effectiveTime value="129704685957" /> <value unit="g/dL" xsi:type="PQ" value="2.9" /> <referenceRange> <observationRange> <text>1.9-4.3</text> </observationRange> </ referenceRange> </observation> </component> <component> <observation moodCode="EVN" classCode="OBS"> <templateId root= "2.16.840.1.857594.10..22.4.2" /> <id nullFlavor="NA" /> < code codeSystem="local" code="GLU" displayName="Glucose" /> < statusCode code="completed" /> <effectiveTime value="" /> <value unit="mg/dL" xsi:type="PQ" value="114" /> < interpretationCode codeSystem="local" code="*" /> <referenceRange> <observationRange> <text>70-100</text> </ observationRange> </referenceRange> </observation> </ component> <component> <observation moodCode="EVN" classCode="OBS"> <templateId root="06.08.840.1.136201.10..4.2" /> <id nullFlavor="NA" /> <code codeSystem="local" code="K" displayName= "Potassium" /> <statusCode code="completed" /> <effectiveTime value="559220931817" /> <value unit="mEq/L" xsi:type="PQ" value="3.6" / > <referenceRange> <observationRange> <text>3.6 -5.1</text> </observationRange> </referenceRange> </ observation> </component> <component> <observation moodCode= "EVN" classCode="OBS"> <templateId root="840.1.347822.02.09.22.4.2 " /> <id nullFlavor="NA" /> <code codeSystem="local" code="TP " displayName="Protein" /> <statusCode code="completed" /> < effectiveTime value="" /> <value unit="g/dL" xsi:type="PQ" value="7.8" /> <referenceRange> <observationRange> <text>6.1-7.9</text> </observationRange> </ referenceRange> </observation> </component> <component> <observation moodCode="EVN" classCode="OBS"> <templateId root= "06.08.840.1.408728..22.4.2" /> <id nullFlavor="NA" /> < code codeSystem="local" code="NA" displayName="Sodium" /> <statusCode code="completed" /> <effectiveTime value="752438812188" /> < value unit="mEq/L" xsi:type="PQ" value="136" /> <referenceRange> <observationRange> <text>136-144</text> </ observationRange> </referenceRange> </observation> </ component> </organizer> </entry> <entry> <organizer moodCode="EVN" classCode="BATTERY"> <templateId root="840.1.032367.22.4.1" /> <id nullFlavor="NA" /> <code codeSystem="local" code="GFR" displayName ="eGFR" /> <statusCode code="completed" /> <component> < observation moodCode="EVN" classCode="OBS"> <templateId root= "840.1.999030.02.09.22.4.2" /> <id nullFlavor="NA" /> < code codeSystem="local" code="GFR" displayName="eGFR" /> <statusCode code="completed" /> <effectiveTime value="785507942349" /> < value unit="NA" xsi:type="PQ" value=">60" /> <referenceRange> <observationRange> <text>>60</text> </ observationRange> </referenceRange> </observation> </ component> </organizer> </entry> <entry> <organizer moodCode="EVN" classCode="BATTERY"> <templateId root="840.1.107192.02.09.22.4.1" /> <id nullFlavor="NA" /> <code codeSystem="local" code="TROP" displayName="Troponin" /> <statusCode code="completed" /> <component> <observation moodCode="EVN" classCode="OBS"> <templateId root= "840.1.448137.22.4.2" /> <id nullFlavor="NA" /> < code codeSystem="local" code="TROP" displayName="Troponin" /> < statusCode code="completed" /> <effectiveTime value="846327061453" /> <value unit="ng/mL" xsi:type="PQ" value="<0.05" /> < referenceRange> <observationRange> <text><0.06</text > </observationRange> </referenceRange> </observation > </component> </organizer> </entry> <entry> <organizer moodCode= "EVN" classCode="BATTERY"> <templateId root="216.840.1.810258.10..22.4.1 " /> <id nullFlavor="NA" /> <code codeSystem="local" code="TSHR" displayName="TSH with Reflex Free T4" /> <statusCode code="completed" /> <component> <observation moodCode="EVN" classCode="OBS"> < templateId root="216.840.1.382125.10..22.4.2" /> <id nullFlavor="NA " /> <code codeSystem="local" code="TSHR" displayName="TSH with Reflex Free T4" /> <statusCode code="completed" /> <effectiveTime value="022148961975" /> <value unit="uIU/mL" xsi:type="PQ" value="1.50 " /> <referenceRange> <observationRange> <text> 0.35-5.50</text> </observationRange> </referenceRange> </observation> </component> </organizer> </entry> <entry> < organizer moodCode="EVN" classCode="BATTERY"> <templateId root= "216.840.1.993228.10.20.22.4.1" /> <id nullFlavor="NA" /> <code codeSystem="local" code="PREGN" displayName=" Screen, Urine NPT" /> <statusCode code="completed" /> <component> <observation moodCode ="EVN" classCode="OBS"> <templateId root= "2.16.840.1.959362.10..4.2" /> <id nullFlavor="NA" /> < code codeSystem="local" code="PREGN" displayName=" Screen, Urine NPT" / > <statusCode code="completed" /> <effectiveTime value= "283255389194" /> <value unit="NA" xsi:type="PQ" value="Negative" /> <referenceRange> <observationRange> <text /> </observationRange> </referenceRange> </observation> </component> </organizer> </entry> <entry> <organizer moodCode="EVN " classCode="BATTERY"> <templateId root="216.840.1.495246.10.22.4.1" / > <id nullFlavor="NA" /> <code codeSystem="local" code="CBCD" displayName="CBC W/DIFF" /> <statusCode code="completed" /> <component > <observation moodCode="EVN" classCode="OBS"> <templateId root= "2.16.840.1.702718.10..22.4.2" /> <id nullFlavor="NA" /> < code codeSystem="local" code="EO#" displayName="EOSINOPHIL #" /> < statusCode code="completed" /> <effectiveTime value="400237918283" /> <value unit="k/cumm" xsi:type="PQ" value="0.1" /> < referenceRange> <observationRange> <text>0.1-0.5</text> </observationRange> </referenceRange> </observation > </component> <component> <observation moodCode="EVN" classCode="OBS"> <templateId root="16.840.1.269160.10.20.22.4.2" /> <id nullFlavor="NA" /> <code codeSystem="local" code="EO% " displayName="EOSINOPHIL %" /> <statusCode code="completed" /> <effectiveTime value="" /> <value unit="%" xsi: type="PQ" value="1" /> <interpretationCode codeSystem="local" code="*" /> <referenceRange> <observationRange> <text>2- 4</text> </observationRange> </referenceRange> </ observation> </component> <component> <observation moodCode= "EVN" classCode="OBS"> <templateId root="06.08.840.1.324836.02.09.22.4.2 " /> <id nullFlavor="NA" /> <code codeSystem="local" code="GR# " displayName="GRANULOCYTE #" /> <statusCode code="completed" /> <effectiveTime value="" /> <value unit="k/cumm" xsi: type="PQ" value="3.5" /> <referenceRange> <observationRange > <text>2.0-9.0</text> </observationRange> </ referenceRange> </observation> </component> <component> <observation moodCode="EVN" classCode="OBS"> <templateId root= "06.08.840.1.956932.10.2022.4.2" /> <id nullFlavor="NA" /> < code codeSystem="local" code="GR%" displayName="GRANULOCYTE %" /> <statusCode code="completed" /> <effectiveTime value=" " /> <value unit="%" xsi:type="PQ" value="47" /> < interpretationCode codeSystem="local" code="*" /> <referenceRange> <observationRange> <text>50-75</text> </ observationRange> </referenceRange> </observation> </ component> <component> <observation moodCode="EVN" classCode="OBS"> <templateId root="216.840.1.483217.02.09.22.4.2" /> <id nullFlavor="NA" /> <code codeSystem="local" code="LY#" displayName= "LYMPHOCYTE #" /> <statusCode code="completed" /> < effectiveTime value="925930560069" /> <value unit="k/cumm" xsi:type="PQ " value="3.1" /> <referenceRange> <observationRange> <text>1.0-4.0</text> </observationRange> </ referenceRange> </observation> </component> <component> <observation moodCode="EVN" classCode="OBS"> <templateId root= "216.840.1.209933.02.09.22.4.2" /> <id nullFlavor="NA" /> < code codeSystem="local" code="LY%" displayName="LYMPHOCYTE %" /> <statusCode code="completed" /> <effectiveTime value="802067098555" /> <value unit="%" xsi:type="PQ" value="42" /> < interpretationCode codeSystem="local" code="*" /> <referenceRange> <observationRange> <text>20-30</text> </ observationRange> </referenceRange> </observation> </ component> <component> <observation moodCode="EVN" classCode="OBS"> <templateId root="216.840.1.797269.02.09.22.4.2" /> <id nullFlavor="NA" /> <code codeSystem="local" code="MCH" displayName= "MEAN CELL HGB" /> <statusCode code="completed" /> < effectiveTime value="" /> <value unit="pg" xsi:type="PQ" value="33.8" /> <interpretationCode codeSystem="local" code="*" /> <referenceRange> <observationRange> <text>27.0- 33.0</text> </observationRange> </referenceRange> </ observation> </component> <component> <observation moodCode= "EVN" classCode="OBS"> <templateId root="2.16.840.1.670502.02.09.224.2 " /> <id nullFlavor="NA" /> <code codeSystem="local" code= "MCHC" displayName="MEAN CELL HGB CONCENTRATION" /> <statusCode code= "completed" /> <effectiveTime value="" /> <value unit="g/dL" xsi:type="PQ" value="32.8" /> <referenceRange> < observationRange> <text>32.0-37.0</text> </ observationRange> </referenceRange> </observation> </ component> <component> <observation moodCode="EVN" classCode="OBS"> <templateId root="216.840.1.529901.104.2" /> <id nullFlavor="NA" /> <code codeSystem="local" code="MCV" displayName= "MEAN CELL VOLUME" /> <statusCode code="completed" /> < effectiveTime value="" /> <value unit="fl" xsi:type="PQ" value="103.0" /> <interpretationCode codeSystem="local" code="*" /> <referenceRange> <observationRange> <text>80.0- 100.0</text> </observationRange> </referenceRange> </ observation> </component> <component> <observation moodCode= "EVN" classCode="OBS"> <templateId root="216.840.1.607169.10.22.4.2 " /> <id nullFlavor="NA" /> <code codeSystem="local" code="MO# " displayName="MONOCYTE #" /> <statusCode code="completed" /> <effectiveTime value="[id number]" /> <value unit="k/cumm" xsi:type= "PQ" value="0.7" /> <referenceRange> <observationRange> <text>0.1-1.0</text> </observationRange> </ referenceRange> </observation> </component> <component> <observation moodCode="EVN" classCode="OBS"> <templateId root= "06.08.840.1.820677.02.09.22.4.2" /> <id nullFlavor="NA" /> < code codeSystem="local" code="MO%" displayName="MONOCYTE %" /> <statusCode code="completed" /> <effectiveTime value="469864153471" /> <value unit="%" xsi:type="PQ" value="10" /> < interpretationCode codeSystem="local" code="*" /> <referenceRange> <observationRange> <text>4-6</text> </ observationRange> </referenceRange> </observation> </ component> <component> <observation moodCode="EVN" classCode="OBS"> <templateId root="06.08.840.1.299592...4.2" /> <id nullFlavor="NA" /> <code codeSystem="local" code="RBC" displayName=" RED BLOOD CELL" /> <statusCode code="completed" /> < effectiveTime value="[id number]" /> <value unit="m/cumm" xsi:type="PQ " value="3.61" /> <interpretationCode codeSystem="local" code="*" /> <referenceRange> <observationRange> <text>4.00- 6.00</text> </observationRange> </referenceRange> </ observation> </component> <component> <observation moodCode= "EVN" classCode="OBS"> <templateId root="2.16.840.1.135029.10.20.22.4.2 " /> <id nullFlavor="NA" /> <code codeSystem="local" code="RDW " displayName="RED CELL DISTRIBUTION WIDTH" /> <statusCode code= "completed" /> <effectiveTime value="" /> <value unit="%" xsi:type="PQ" value="11.9" /> <referenceRange> <observationRange> <text>11.0-15.6</text> </ observationRange> </referenceRange> </observation> </ component> <component> <observation moodCode="EVN" classCode="OBS"> <templateId root="2.16.840.1.891186.10.20.22.4.2" /> <id nullFlavor="NA" /> <code codeSystem="local" code="WBC" displayName= "WHITE BLOOD CELL" /> <statusCode code="completed" /> < effectiveTime value="" /> <value unit="k/cumm" xsi:type="PQ " value="7.5" /> <referenceRange> <observationRange> <text>5.0-10.0</text> </observationRange> </ referenceRange> </observation> </component> <component> <observation moodCode="EVN" classCode="OBS"> <templateId root= "16.840.1.683252.10.20.22.4.2" /> <id nullFlavor="NA" /> < code codeSystem="local" code="HGBT" displayName="HEMOGLOBIN" /> < statusCode code="completed" /> <effectiveTime value="" /> <value unit="gm/dL" xsi:type="PQ" value="12.2" /> < referenceRange> <observationRange> <text>12.0-16.0</text > </observationRange> </referenceRange> </observation > </component> <component> <observation moodCode="EVN" classCode="OBS"> <templateId root="16.840.1.046977.10.20.22.4.2" /> <id nullFlavor="NA" /> <code codeSystem="local" code="HCTT" displayName="HEMATOCRIT" /> <statusCode code="completed" /> < effectiveTime value="" /> <value unit="%" xsi:type="PQ " value="37.2" /> <referenceRange> <observationRange> <text>37.0-47.0</text> </observationRange> </ referenceRange> </observation> </component> <component> <observation moodCode="EVN" classCode="OBS"> <templateId root= "06.08.840.1.470918.10.20.22.4.2" /> <id nullFlavor="NA" /> < code codeSystem="local" code="PLT" displayName="PLATELET COUNT" /> < statusCode code="completed" /> <effectiveTime value="" /> <value unit="k/cumm" xsi:type="PQ" value="299" /> < referenceRange> <observationRange> <text>150-450</text> </observationRange> </referenceRange> </observation > </component> </organizer> </entry> <entry> <organizer moodCode= "EVN" classCode="BATTERY"> <templateId root="216.840.1.852222.10..22.4.1 " /> <id nullFlavor="NA" /> <code codeSystem="local" code="iCHEM8" displayName="CHEM/HEM PROFILE-BEDSIDE" /> <statusCode code="completed" /> <component> <observation moodCode="EVN" classCode="OBS"> < templateId root="216.840.1.901953....4.2" /> <id nullFlavor="NA " /> <code codeSystem="local" code="K" displayName="POTASSIUM" /> <statusCode code="completed" /> <effectiveTime value=" " /> <value unit="mmol/L" xsi:type="PQ" value="3.8" /> < referenceRange> <observationRange> <text>3.5-5.3</text> </observationRange> </referenceRange> </observation > </component> <component> <observation moodCode="EVN" classCode="OBS"> <templateId root="216.840.1.488348....4.2" /> <id nullFlavor="NA" /> <code codeSystem="local" code="CMETHOD " displayName="METHOD" /> <statusCode code="completed" /> < effectiveTime value="" /> <value unit="" xsi:type="PQ" value="Bedside" /> <referenceRange> <observationRange> <text /> </observationRange> </referenceRange> </observation> </component> <component> <observation moodCode="EVN" classCode="OBS"> <templateId root= "216.840.1.134354.10.22.4.2" /> <id nullFlavor="NA" /> < code codeSystem="local" code="GAP" displayName="ANION GAP" /> < statusCode code="completed" /> <effectiveTime value="" /> <value unit="mmol/L" xsi:type="PQ" value="19" /> < referenceRange> <observationRange> <text>10-20</text> </observationRange> </referenceRange> </observation> </component> <component> <observation moodCode="EVN" classCode= "OBS"> <templateId root="16.840.1.814835..22.4.2" /> < id nullFlavor="NA" /> <code codeSystem="local" code="HMETHOD" displayName="METHOD" /> <statusCode code="completed" /> < effectiveTime value="" /> <value unit="" xsi:type="PQ" value="Bedside" /> <referenceRange> <observationRange> <text /> </observationRange> </referenceRange> </observation> </component> <component> <observation moodCode="EVN" classCode="OBS"> <templateId root= "06.08.840.1.089364.1022.4.2" /> <id nullFlavor="NA" /> < code codeSystem="local" code="GLU" displayName="GLUCOSE" /> < statusCode code="completed" /> <effectiveTime value="" /> <value unit="mg/dL" xsi:type="PQ" value="110" /> < interpretationCode codeSystem="local" code="*" /> <referenceRange> <observationRange> <text>70-99</text> </ observationRange> </referenceRange> </observation> </ component> <component> <observation moodCode="EVN" classCode="OBS"> <templateId root="216.840.1.380729.1022.4.2" /> <id nullFlavor="NA" /> <code codeSystem="local" code="BUN" displayName= "BLOOD UREA NITROGEN" /> <statusCode code="completed" /> < effectiveTime value="" /> <value unit="mg/dL" xsi:type="PQ " value="14" /> <referenceRange> <observationRange> <text>7-20</text> </observationRange> </referenceRange > </observation> </component> <component> <observation moodCode="EVN" classCode="OBS"> <templateId root= "216.840.1.719333.02.09.22.4.2" /> <id nullFlavor="NA" /> < code codeSystem="local" code="CREAT" displayName="CREATININE" /> < statusCode code="completed" /> <effectiveTime value="" /> <value unit="mg/dL" xsi:type="PQ" value="0.7" /> < referenceRange> <observationRange> <text>0.6-1.0</text> </observationRange> </referenceRange> </observation > </component> <component> <observation moodCode="EVN" classCode="OBS"> <templateId root="16.840.1.265054..22.4.2" /> <id nullFlavor="NA" /> <code codeSystem="local" code="HGBT" displayName="HEMOGLOBIN" /> <statusCode code="completed" /> < effectiveTime value="" /> <value unit="gm/dL" xsi:type="PQ " value="12.6" /> <referenceRange> <observationRange> <text>12.0-16.0</text> </observationRange> </ referenceRange> </observation> </component> <component> <observation moodCode="EVN" classCode="OBS"> <templateId root= "216.840.1.183965.10..22.4.2" /> <id nullFlavor="NA" /> < code codeSystem="local" code="HCTT" displayName="HEMATOCRIT" /> < statusCode code="completed" /> <effectiveTime value="217474619330" /> <value unit="%" xsi:type="PQ" value="37.0" /> < referenceRange> <observationRange> <text>37.0-47.0</text > </observationRange> </referenceRange> </observation > </component> <component> <observation moodCode="EVN" classCode="OBS"> <templateId root="06.08.840.1.056771.10...4.2" /> <id nullFlavor="NA" /> <code codeSystem="local" code="NA" displayName="SODIUM" /> <statusCode code="completed" /> < effectiveTime value="286645440421" /> <value unit="mmol/L" xsi:type="PQ " value="143" /> <referenceRange> <observationRange> <text>135-148</text> </observationRange> </ referenceRange> </observation> </component> <component> <observation moodCode="EVN" classCode="OBS"> <templateId root= "06.08.840.1.632033.10.20.22.4.2" /> <id nullFlavor="NA" /> < code codeSystem="local" code="CL" displayName="CHLORIDE" /> < statusCode code="completed" /> <effectiveTime value="" /> <value unit="mmol/L" xsi:type="PQ" value="104" /> < referenceRange> <observationRange> <text>98-110</text> </observationRange> </referenceRange> </observation> </component> <component> <observation moodCode="EVN" classCode ="OBS"> <templateId root="216.840.1.967994.10..4.2" /> < id nullFlavor="NA" /> <code codeSystem="local" code="CO2" displayName= "CARBON DIOXIDE" /> <statusCode code="completed" /> < effectiveTime value="" /> <value unit="mmol/L" xsi:type="PQ " value="25" /> <referenceRange> <observationRange> <text>21-32</text> </observationRange> </ referenceRange> </observation> </component> <component> <observation moodCode="EVN" classCode="OBS"> <templateId root= "216.840.1.249958.10..4.2" /> <id nullFlavor="NA" /> < code codeSystem="local" code="CAION" displayName="CALCIUM IONIZED" /> < statusCode code="completed" /> <effectiveTime value="" /> <value unit="mg/dL" xsi:type="PQ" value="4.8" /> < referenceRange> <observationRange> <text>4.5-5.3</text> </observationRange> </referenceRange> </observation > </component> </organizer> </entry> <entry> <organizer moodCode= "EVN" classCode="BATTERY"> <templateId root="2.16.840.1.472119.10...4.1 " /> <id nullFlavor="NA" /> <code codeSystem="local" code="PREGU" displayName="UR TEST" /> <statusCode code="completed" /> < component> <observation moodCode="EVN" classCode="OBS"> < templateId root="216.840.1.191739.10..22.4.2" /> <id nullFlavor="NA " /> <code codeSystem="local" code="PREGU" displayName="UR TEST" /> <statusCode code="completed" /> <effectiveTime value= "934236190960" /> <value unit="" xsi:type="PQ" value="NEGATIVE" /> <referenceRange> <observationRange> <text>NEGATIVE </text> </observationRange> </referenceRange> </ observation> </component> </organizer> </entry> <entry> <organizer moodCode="EVN" classCode="BATTERY"> <templateId root= "16.840.1.598881.10..22.4.1" /> <id nullFlavor="NA" /> <code codeSystem="local" code="UA" displayName="URINALYSIS, ROUTINE" /> < statusCode code="completed" /> <component> <observation moodCode= "EVN" classCode="OBS"> <templateId root="216.840.1.493885.10..22.4.2 " /> <id nullFlavor="NA" /> <code codeSystem="local" code= "LEUESU" displayName="UA LEUKOCYTE ESTERASE DIPSTICK" /> <statusCode code="completed" /> <effectiveTime value="500978096047" /> < value unit="" xsi:type="PQ" value="1+" /> <referenceRange> < observationRange> <text>NEGATIVE</text> </ observationRange> </referenceRange> </observation> </ component> <component> <observation moodCode="EVN" classCode="OBS"> <templateId root="216.840.1.648263.10..4.2" /> <id nullFlavor="NA" /> <code codeSystem="local" code="NITRIU" displayName= "UA NITRITE DIPSTICK" /> <statusCode code="completed" /> < effectiveTime value="" /> <value unit="" xsi:type="PQ" value="NEGATIVE" /> <referenceRange> <observationRange> <text>NEGATIVE</text> </observationRange> </ referenceRange> </observation> </component> <component> <observation moodCode="EVN" classCode="OBS"> <templateId root= "216.840.1.125584...4.2" /> <id nullFlavor="NA" /> < code codeSystem="local" code="PROTEIU" displayName="UA PROTEIN DIPSTICK" /> <statusCode code="completed" /> <effectiveTime value= "" /> <value unit="" xsi:type="PQ" value="TRACE" /> <referenceRange> <observationRange> <text>NEGATIVE</ text> </observationRange> </referenceRange> </ observation> </component> <component> <observation moodCode= "EVN" classCode="OBS"> <templateId root="16.840.1.022060.10..4.2 " /> <id nullFlavor="NA" /> <code codeSystem="local" code= "DGLUU" displayName="UA GLUCOSE DIPSTICK" /> <statusCode code= "completed" /> <effectiveTime value="689056557012" /> <value unit="" xsi:type="PQ" value="NEGATIVE" /> <referenceRange> < observationRange> <text>NEGATIVE</text> </ observationRange> </referenceRange> </observation> </ component> <component> <observation moodCode="EVN" classCode="OBS"> <templateId root="216.840.1.043718.10.4.2" /> <id nullFlavor="NA" /> <code codeSystem="local" code="KETONU" displayName= "UA KETONE DIPSTICK" /> <statusCode code="completed" /> < effectiveTime value="131599428490" /> <value unit="" xsi:type="PQ" value="NEGATIVE" /> <referenceRange> <observationRange> <text>NEGATIVE</text> </observationRange> </ referenceRange> </observation> </component> <component> <observation moodCode="EVN" classCode="OBS"> <templateId root= "06.08.840.1.222824.02.09.22.4.2" /> <id nullFlavor="NA" /> < code codeSystem="local" code="UROBILU" displayName="UA UROBILINOGEN DIPSTICK" / > <statusCode code="completed" /> <effectiveTime value= "" /> <value unit="" xsi:type="PQ" value="NORMAL" /> <referenceRange> <observationRange> <text>NORMAL</ text> </observationRange> </referenceRange> </ observation> </component> <component> <observation moodCode= "EVN" classCode="OBS"> <templateId root="06.08.840.1.324227.02.09.22.4.2 " /> <id nullFlavor="NA" /> <code codeSystem="local" code= "BILU" displayName="UA BILIRUBIN DIPSTICK" /> <statusCode code= "completed" /> <effectiveTime value="" /> <value unit="" xsi:type="PQ" value="NEGATIVE" /> <referenceRange> < observationRange> <text>NEGATIVE</text> </ observationRange> </referenceRange> </observation> </ component> <component> <observation moodCode="EVN" classCode="OBS"> <templateId root="16.840.1.441634.10..22.4.2" /> <id nullFlavor="NA" /> <code codeSystem="local" code="SPENCER" displayName="UA BLOOD DIPSTICK" /> <statusCode code="completed" /> < effectiveTime value="744784921902" /> <value unit="" xsi:type="PQ" value="4+" /> <referenceRange> <observationRange> <text>NEGATIVE</text> </observationRange> </ referenceRange> </observation> </component> <component> <observation moodCode="EVN" classCode="OBS"> <templateId root= "06.08.840.1.495926.10.22.4.2" /> <id nullFlavor="NA" /> < code codeSystem="local" code="SPGRU" displayName="UA SPECIFIC GRAVITY" /> <statusCode code="completed" /> <effectiveTime value="961503144060 " /> <value unit="" xsi:type="PQ" value="1.015" /> < referenceRange> <observationRange> <text>1.015-1.025</ text> </observationRange> </referenceRange> </ observation> </component> <component> <observation moodCode= "EVN" classCode="OBS"> <templateId root="06.08.840.1.709419.10.20.22.4.2 " /> <id nullFlavor="NA" /> <code codeSystem="local" code="FEROZ " displayName="UR PH" /> <statusCode code="completed" /> < effectiveTime value="101104109491" /> <value unit="" xsi:type="PQ" value="8.0" /> <interpretationCode codeSystem="local" code="*" /> <referenceRange> <observationRange> <text>5.0-7.0</ text> </observationRange> </referenceRange> </ observation> </component> </organizer> </entry> <entry> <organizer moodCode="EVN" classCode="BATTERY"> <templateId root= "216.840.1.898273.10...4.1" /> <id nullFlavor="NA" /> <code codeSystem="local" code="UAMICRO" displayName="UA MICROSCOPIC" /> < statusCode code="completed" /> <component> <observation moodCode= "EVN" classCode="OBS"> <templateId root="216.840.1.782888.10..22.4.2 " /> <id nullFlavor="NA" /> <code codeSystem="local" code= "AMORPU" displayName="UA AMORPHOUS SEDIMENT" /> <statusCode code= "completed" /> <effectiveTime value="317945423891" /> <value unit="" xsi:type="PQ" value="4+" /> <referenceRange> < observationRange> <text /> </observationRange> </referenceRange> </observation> </component> <component> <observation moodCode="EVN" classCode="OBS"> <templateId root= "16.840.1.890670.10..22.4.2" /> <id nullFlavor="NA" /> < code codeSystem="local" code="BACU" displayName="UA BACTERIA" /> < statusCode code="completed" /> <effectiveTime value="567308103416" /> <value unit="" xsi:type="PQ" value="2+" /> <referenceRange> <observationRange> <text>NEGATIVE</text> </ observationRange> </referenceRange> </observation> </ component> <component> <observation moodCode="EVN" classCode="OBS"> <templateId root="16.840.1.256638.10..4.2" /> <id nullFlavor="NA" /> <code codeSystem="local" code="EPIU" displayName=" UA EPITHELIAL CELLS" /> <statusCode code="completed" /> < effectiveTime value="992750645533" /> <value unit="epi/hpf" xsi:type= "PQ" value="1+" /> <referenceRange> <observationRange> <text>0 - 1+</text> </observationRange> </ referenceRange> </observation> </component> <component> <observation moodCode="EVN" classCode="OBS"> <templateId root= "840.1.627977.02.09.22.4.2" /> <id nullFlavor="NA" /> < code codeSystem="local" code="MUCUSU" displayName="UA MUCUS" /> < statusCode code="completed" /> <effectiveTime value="495970346872" /> <value unit="" xsi:type="PQ" value="2+" /> <referenceRange> <observationRange> <text>NEG TO 1+</text> </ observationRange> </referenceRange> </observation> </ component> <component> <observation moodCode="EVN" classCode="OBS"> <templateId root="06.08.840.1.441443.10.2022.4.2" /> <id nullFlavor="NA" /> <code codeSystem="local" code="RBCU" displayName=" UA RBC" /> <statusCode code="completed" /> <effectiveTime value="835731021057" /> <value unit="rbc/hpf" xsi:type="PQ" value="0-3 " /> <referenceRange> <observationRange> <text> 0 - 3</text> </observationRange> </referenceRange> </ observation> </component> <component> <observation moodCode= "EVN" classCode="OBS"> <templateId root="216.840.1.555510.10..22.4.2 " /> <id nullFlavor="NA" /> <code codeSystem="local" code= "UAVOL" displayName="UA VOLUME FOR EXAM" /> <statusCode code="completed " /> <effectiveTime value="717190334987" /> <value unit="mL" xsi:type="PQ" value="12.0" /> <referenceRange> < observationRange> <text>(12mL STD)</text> </ observationRange> </referenceRange> </observation> </ component> <component> <observation moodCode="EVN" classCode="OBS"> <templateId root="216.840.1.818498.10..22.4.2" /> <id nullFlavor="NA" /> <code codeSystem="local" code="WBCU" displayName=" UA WBC" /> <statusCode code="completed" /> <effectiveTime value="177562643945" /> <value unit="wbc/hpf" xsi:type="PQ" value="5-10 " /> <referenceRange> <observationRange> <text> 0 - 5</text> </observationRange> </referenceRange> </ observation> </component> </organizer> </entry> <entry> <organizer moodCode="EVN" classCode="BATTERY"> <templateId root= "216.840.1.278805.02.09.22.4.1" /> <id nullFlavor="NA" /> <code codeSystem="local" code="DRUGAB" displayName="UR DRUGS OF ABUSE SCREEN" /> <statusCode code="completed" /> <component> <observation moodCode= "EVN" classCode="OBS"> <templateId root="216.840.1.800196.10...4.2 " /> <id nullFlavor="NA" /> <code codeSystem="local" code= "AMPHU" displayName="UR AMPHETAMINES SCREEN" /> <statusCode code= "completed" /> <effectiveTime value="538499404539" /> <value unit="" xsi:type="PQ" value="NEG (<1000 ng/mL)" /> <referenceRange > <observationRange> <text>NEGATIVE</text> </ observationRange> </referenceRange> </observation> </ component> <component> <observation moodCode="EVN" classCode="OBS"> <templateId root="16.840.1.978608...4.2" /> <id nullFlavor="NA" /> <code codeSystem="local" code="BARBU" displayName= "UR BARBITURATE SCREEN" /> <statusCode code="completed" /> < effectiveTime value="" /> <value unit="" xsi:type="PQ" value="NEG (< 200 ng/mL)" /> <referenceRange> < observationRange> <text>NEGATIVE</text> </ observationRange> </referenceRange> </observation> </ component> <component> <observation moodCode="EVN" classCode="OBS"> <templateId root="216.840.1.362532.10..22.4.2" /> <id nullFlavor="NA" /> <code codeSystem="local" code="DAUCOMMENT" displayName="DRUGS OF ABUSE SCREEN COMMENT" /> <statusCode code= "completed" /> <effectiveTime value="" /> <value unit="" xsi:type="PQ" value="" /> <referenceRange> < observationRange> <text /> </observationRange> </referenceRange> </observation> </component> <component> <observation moodCode="EVN" classCode="OBS"> <templateId root= "16.840.1.299525.10..22.4.2" /> <id nullFlavor="NA" /> < code codeSystem="local" code="OPIU" displayName="UR OPIATES SCREEN" /> <statusCode code="completed" /> <effectiveTime value="" /> <value unit="" xsi:type="PQ" value="NEG (< 300 ng/mL)" /> <referenceRange> <observationRange> <text>NEGATIVE</ text> </observationRange> </referenceRange> </ observation> </component> <component> <observation moodCode= "EVN" classCode="OBS"> <templateId root="16.840.1.622966.10..22.4.2 " /> <id nullFlavor="NA" /> <code codeSystem="local" code= "PCPU" displayName="UR PHENCYCLIDINE (PCP) SCREEN" /> <statusCode code= "completed" /> <effectiveTime value="" /> <value unit="" xsi:type="PQ" value="NEG (< 25 ng/mL)" /> <referenceRange > <observationRange> <text>NEGATIVE</text> </ observationRange> </referenceRange> </observation> </ component> <component> <observation moodCode="EVN" classCode="OBS"> <templateId root="06.08.830.1.487869.10..22.4.2" /> <id nullFlavor="NA" /> <code codeSystem="local" code="THCU" displayName=" UR CANNABINOIDS (THC) SCREEN" /> <statusCode code="completed" /> <effectiveTime value="" /> <value unit="" xsi:type="PQ " value="NEG (< 50 ng/mL)" /> <referenceRange> < observationRange> <text>NEGATIVE</text> </ observationRange> </referenceRange> </observation> </ component> <component> <observation moodCode="EVN" classCode="OBS"> <templateId root="216.840.1.650543.10..22.4.2" /> <id nullFlavor="NA" /> <code codeSystem="local" code="COCAU" displayName= "UR COCAINE METABOLITE SCREEN" /> <statusCode code="completed" /> <effectiveTime value="" /> <value unit="" xsi:type="PQ " value="NEG (< 300 ng/mL)" /> <referenceRange> < observationRange> <text>NEGATIVE</text> </ observationRange> </referenceRange> </observation> </ component> <component> <observation moodCode="EVN" classCode="OBS"> <templateId root="216.840.1.158428.10..22.4.2" /> <id nullFlavor="NA" /> <code codeSystem="local" code="METHU" displayName= "UR METHADONE SCREEN" /> <statusCode code="completed" /> < effectiveTime value="" /> <value unit="" xsi:type="PQ" value="NEG (< 300 ng/mL)" /> <referenceRange> < observationRange> <text>NEGATIVE</text> </ observationRange> </referenceRange> </observation> </ component> <component> <observation moodCode="EVN" classCode="OBS"> <templateId root="2.16.840.1.796978.10..22.4.2" /> <id nullFlavor="NA" /> <code codeSystem="local" code="BENZU" displayName= "UR BENZODIAZEPINE SCREEN" /> <statusCode code="completed" /> <effectiveTime value="541075449668" /> <value unit="" xsi:type="PQ" value="NEG (< 200 ng/mL)" /> <referenceRange> < observationRange> <text>NEGATIVE</text> </ observationRange> </referenceRange> </observation> </ component> </organizer> </entry> <entry> <organizer moodCode="EVN" classCode="BATTERY"> <templateId root="2.16.840.1.061644.10..22.4.1" /> <id nullFlavor="NA" /> <code codeSystem="local" code="UA" displayName= "URINALYSIS, ROUTINE" /> <statusCode code="completed" /> <component> <observation moodCode="EVN" classCode="OBS"> <templateId root= "2.16.840.1.211198.10..22.4.2" /> <id nullFlavor="NA" /> < code codeSystem="local" code="LEUESU" displayName="UA LEUKOCYTE ESTERASE DIPSTICK" /> <statusCode code="completed" /> <effectiveTime value="073777666000" /> <value unit="" xsi:type="PQ" value="TRACE" /> <referenceRange> <observationRange> <text> NEGATIVE</text> </observationRange> </referenceRange> </observation> </component> <component> <observation moodCode ="EVN" classCode="OBS"> <templateId root= "16.840.1.754197.10...4.2" /> <id nullFlavor="NA" /> < code codeSystem="local" code="NITRIU" displayName="UA NITRITE DIPSTICK" /> <statusCode code="completed" /> <effectiveTime value=" " /> <value unit="" xsi:type="PQ" value="NEGATIVE" /> < referenceRange> <observationRange> <text>NEGATIVE</text > </observationRange> </referenceRange> </observation > </component> <component> <observation moodCode="EVN" classCode="OBS"> <templateId root="16.840.1.492051...4.2" /> <id nullFlavor="NA" /> <code codeSystem="local" code="PROTEIU " displayName="UA PROTEIN DIPSTICK" /> <statusCode code="completed" /> <effectiveTime value="" /> <value unit="" xsi: type="PQ" value="1+" /> <referenceRange> <observationRange> <text>NEGATIVE</text> </observationRange> </ referenceRange> </observation> </component> <component> <observation moodCode="EVN" classCode="OBS"> <templateId root= "06.08.840.1.639013...4.2" /> <id nullFlavor="NA" /> < code codeSystem="local" code="DGLUU" displayName="UA GLUCOSE DIPSTICK" /> <statusCode code="completed" /> <effectiveTime value=" " /> <value unit="" xsi:type="PQ" value="NEGATIVE" /> < referenceRange> <observationRange> <text>NEGATIVE</text > </observationRange> </referenceRange> </observation > </component> <component> <observation moodCode="EVN" classCode="OBS"> <templateId root="216.840.1.690386.10.4.2" /> <id nullFlavor="NA" /> <code codeSystem="local" code="KETONU" displayName="UA KETONE DIPSTICK" /> <statusCode code="completed" /> <effectiveTime value="" /> <value unit="" xsi:type= "PQ" value="2+" /> <referenceRange> <observationRange> <text>NEGATIVE</text> </observationRange> </ referenceRange> </observation> </component> <component> <observation moodCode="EVN" classCode="OBS"> <templateId root= "216.840.1.112286.02.09.22.4.2" /> <id nullFlavor="NA" /> < code codeSystem="local" code="UROBILU" displayName="UA UROBILINOGEN DIPSTICK" / > <statusCode code="completed" /> <effectiveTime value= "" /> <value unit="" xsi:type="PQ" value="NORMAL" /> <referenceRange> <observationRange> <text>NORMAL</ text> </observationRange> </referenceRange> </ observation> </component> <component> <observation moodCode= "EVN" classCode="OBS"> <templateId root="06.08.840.1.501214...4.2 " /> <id nullFlavor="NA" /> <code codeSystem="local" code= "BILU" displayName="UA BILIRUBIN DIPSTICK" /> <statusCode code= "completed" /> <effectiveTime value="" /> <value unit="" xsi:type="PQ" value="NEGATIVE" /> <referenceRange> < observationRange> <text>NEGATIVE</text> </ observationRange> </referenceRange> </observation> </ component> <component> <observation moodCode="EVN" classCode="OBS"> <templateId root="216.840.1.230051.10..4.2" /> <id nullFlavor="NA" /> <code codeSystem="local" code="SPENCER" displayName="UA BLOOD DIPSTICK" /> <statusCode code="completed" /> < effectiveTime value="" /> <value unit="" xsi:type="PQ" value="NEGATIVE" /> <referenceRange> <observationRange> <text>NEGATIVE</text> </observationRange> </ referenceRange> </observation> </component> <component> <observation moodCode="EVN" classCode="OBS"> <templateId root= "06.08.840.1.060087.02.09.22.4.2" /> <id nullFlavor="NA" /> < code codeSystem="local" code="SPGRU" displayName="UA SPECIFIC GRAVITY" /> <statusCode code="completed" /> <effectiveTime value=" " /> <value unit="" xsi:type="PQ" value="1.020" /> < referenceRange> <observationRange> <text>1.015-1.025</ text> </observationRange> </referenceRange> </ observation> </component> <component> <observation moodCode= "EVN" classCode="OBS"> <templateId root="16.840.1.340855.02.09.22.4.2 " /> <id nullFlavor="NA" /> <code codeSystem="local" code="FEROZ " displayName="UR PH" /> <statusCode code="completed" /> < effectiveTime value="" /> <value unit="" xsi:type="PQ" value="5.0" /> <referenceRange> <observationRange> <text>5.0-7.0</text> </observationRange> </ referenceRange> </observation> </component> </organizer> </entry > <entry> <organizer moodCode="EVN" classCode="BATTERY"> <templateId root="16.840.1.462239.10..4.1" /> <id nullFlavor="NA" /> <code codeSystem="local" code="UAMICRO" displayName="UA MICROSCOPIC" /> < statusCode code="completed" /> <component> <observation moodCode= "EVN" classCode="OBS"> <templateId root="16.840.1.730034.10...4.2 " /> <id nullFlavor="NA" /> <code codeSystem="local" code= "BACU" displayName="UA BACTERIA" /> <statusCode code="completed" /> <effectiveTime value="" /> <value unit="" xsi:type= "PQ" value="3+" /> <referenceRange> <observationRange> <text>NEGATIVE</text> </observationRange> </ referenceRange> </observation> </component> <component> <observation moodCode="EVN" classCode="OBS"> <templateId root= "06.08.840.1.876520.10...4.2" /> <id nullFlavor="NA" /> < code codeSystem="local" code="EPIU" displayName="UA EPITHELIAL CELLS" /> <statusCode code="completed" /> <effectiveTime value="" /> <value unit="epi/hpf" xsi:type="PQ" value="2+" /> < referenceRange> <observationRange> <text>0 - 1+</text> </observationRange> </referenceRange> </observation> </component> <component> <observation moodCode="EVN" classCode ="OBS"> <templateId root="16.840.1.951314.10..4.2" /> < id nullFlavor="NA" /> <code codeSystem="local" code="MUCUSU" displayName="UA MUCUS" /> <statusCode code="completed" /> < effectiveTime value="" /> <value unit="" xsi:type="PQ" value="3+" /> <referenceRange> <observationRange> <text>NEG TO 1+</text> </observationRange> </ referenceRange> </observation> </component> <component> <observation moodCode="EVN" classCode="OBS"> <templateId root= "06.08.840.1.867611.02.09.22.4.2" /> <id nullFlavor="NA" /> < code codeSystem="local" code="UAVOL" displayName="UA VOLUME FOR EXAM" /> <statusCode code="completed" /> <effectiveTime value="" /> <value unit="mL" xsi:type="PQ" value="8.0" /> < referenceRange> <observationRange> <text>(12mL STD)</ text> </observationRange> </referenceRange> </ observation> </component> <component> <observation moodCode= "EVN" classCode="OBS"> <templateId root="06.08.840.1.361238.10...4.2 " /> <id nullFlavor="NA" /> <code codeSystem="local" code= "WBCU" displayName="UA WBC" /> <statusCode code="completed" /> <effectiveTime value="" /> <value unit="wbc/hpf" xsi:type ="PQ" value="2-5" /> <referenceRange> <observationRange> <text>0 - 5</text> </observationRange> </ referenceRange> </observation> </component> </organizer> </entry > <entry> <organizer moodCode="EVN" classCode="BATTERY"> <templateId root="216.840.1.922531.10..4.1" /> <id nullFlavor="NA" /> <code codeSystem="local" code="PREGU" displayName="UR TEST" /> < statusCode code="completed" /> <component> <observation moodCode= "EVN" classCode="OBS"> <templateId root="216.840.1.125897.10..4.2 " /> <id nullFlavor="NA" /> <code codeSystem="local" code= "PREGU" displayName="UR TEST" /> <statusCode code="completed " /> <effectiveTime value="689943858350" /> <value unit="" xsi :type="PQ" value="NEGATIVE" /> <referenceRange> < observationRange> <text>NEGATIVE</text> </ observationRange> </referenceRange> </observation> </ component> </organizer> </entry> <entry> <organizer moodCode="EVN" classCode="BATTERY"> <templateId root="216.840.1.478487.10.4.1" /> <id nullFlavor="NA" /> <code codeSystem="local" code="iCHEM8" displayName="CHEM/HEM PROFILE-BEDSIDE" /> <statusCode code="completed" /> <component> <observation moodCode="EVN" classCode="OBS"> < templateId root="216.840.1.224994.22.4.2" /> <id nullFlavor="NA " /> <code codeSystem="local" code="K" displayName="POTASSIUM" /> <statusCode code="completed" /> <effectiveTime value="616015000600 " /> <value unit="mmol/L" xsi:type="PQ" value="3.6" /> < referenceRange> <observationRange> <text>3.5-5.3</text> </observationRange> </referenceRange> </observation > </component> <component> <observation moodCode="EVN" classCode="OBS"> <templateId root="2.16.840.1.205852.02.09.22.4.2" /> <id nullFlavor="NA" /> <code codeSystem="local" code="CMETHOD " displayName="METHOD" /> <statusCode code="completed" /> < effectiveTime value="819192687920" /> <value unit="" xsi:type="PQ" value="Bedside" /> <referenceRange> <observationRange> <text /> </observationRange> </referenceRange> </observation> </component> <component> <observation moodCode="EVN" classCode="OBS"> <templateId root= "2.16.840.1.955628.02.09.22.4.2" /> <id nullFlavor="NA" /> < code codeSystem="local" code="GAP" displayName="ANION GAP" /> < statusCode code="completed" /> <effectiveTime value="634429123666" /> <value unit="mmol/L" xsi:type="PQ" value="17" /> < referenceRange> <observationRange> <text>10-20</text> </observationRange> </referenceRange> </observation> </component> <component> <observation moodCode="EVN" classCode= "OBS"> <templateId root="216.840.1.341611.10..22.4.2" /> < id nullFlavor="NA" /> <code codeSystem="local" code="HMETHOD" displayName="METHOD" /> <statusCode code="completed" /> < effectiveTime value="523258452535" /> <value unit="" xsi:type="PQ" value="Bedside" /> <referenceRange> <observationRange> <text /> </observationRange> </referenceRange> </observation> </component> <component> <observation moodCode="EVN" classCode="OBS"> <templateId root= "216.840.1.907081...4.2" /> <id nullFlavor="NA" /> < code codeSystem="local" code="GLU" displayName="GLUCOSE" /> < statusCode code="completed" /> <effectiveTime value="609280670038" /> <value unit="mg/dL" xsi:type="PQ" value="87" /> < referenceRange> <observationRange> <text>70-99</text> </observationRange> </referenceRange> </observation> </component> <component> <observation moodCode="EVN" classCode= "OBS"> <templateId root="16.840.1.836925.22.4.2" /> < id nullFlavor="NA" /> <code codeSystem="local" code="BUN" displayName= "BLOOD UREA NITROGEN" /> <statusCode code="completed" /> < effectiveTime value="710729834310" /> <value unit="mg/dL" xsi:type="PQ " value="11" /> <referenceRange> <observationRange> <text>7-20</text> </observationRange> </referenceRange > </observation> </component> <component> <observation moodCode="EVN" classCode="OBS"> <templateId root= "216.840.1.619994.10..4.2" /> <id nullFlavor="NA" /> < code codeSystem="local" code="CREAT" displayName="CREATININE" /> < statusCode code="completed" /> <effectiveTime value="086310541851" /> <value unit="mg/dL" xsi:type="PQ" value="0.7" /> < referenceRange> <observationRange> <text>0.6-1.0</text> </observationRange> </referenceRange> </observation > </component> <component> <observation moodCode="EVN" classCode="OBS"> <templateId root="16.840.1.020504.02.09.22.4.2" /> <id nullFlavor="NA" /> <code codeSystem="local" code="HGBT" displayName="HEMOGLOBIN" /> <statusCode code="completed" /> < effectiveTime value="357012279129" /> <value unit="gm/dL" xsi:type="PQ " value="15.6" /> <referenceRange> <observationRange> <text>12.0-16.0</text> </observationRange> </ referenceRange> </observation> </component> <component> <observation moodCode="EVN" classCode="OBS"> <templateId root= "16.840.1.503578.10.20.22.4.2" /> <id nullFlavor="NA" /> < code codeSystem="local" code="HCTT" displayName="HEMATOCRIT" /> < statusCode code="completed" /> <effectiveTime value="969152263240" /> <value unit="%" xsi:type="PQ" value="46.0" /> < referenceRange> <observationRange> <text>37.0-47.0</text > </observationRange> </referenceRange> </observation > </component> <component> <observation moodCode="EVN" classCode="OBS"> <templateId root="216.840.1.691931.10..22.4.2" /> <id nullFlavor="NA" /> <code codeSystem="local" code="NA" displayName="SODIUM" /> <statusCode code="completed" /> < effectiveTime value="845147140489" /> <value unit="mmol/L" xsi:type="PQ " value="139" /> <referenceRange> <observationRange> <text>135-148</text> </observationRange> </ referenceRange> </observation> </component> <component> <observation moodCode="EVN" classCode="OBS"> <templateId root= "16.840.1.674242.10.22.4.2" /> <id nullFlavor="NA" /> < code codeSystem="local" code="CL" displayName="CHLORIDE" /> < statusCode code="completed" /> <effectiveTime value="306046861579" /> <value unit="mmol/L" xsi:type="PQ" value="104" /> < referenceRange> <observationRange> <text>98-110</text> </observationRange> </referenceRange> </observation> </component> <component> <observation moodCode="EVN" classCode ="OBS"> <templateId root="06.08.840.1.903889.10.22.4.2" /> < id nullFlavor="NA" /> <code codeSystem="local" code="CO2" displayName= "CARBON DIOXIDE" /> <statusCode code="completed" /> < effectiveTime value="242165474496" /> <value unit="mmol/L" xsi:type="PQ " value="22" /> <referenceRange> <observationRange> <text>21-32</text> </observationRange> </ referenceRange> </observation> </component> <component> <observation moodCode="EVN" classCode="OBS"> <templateId root= "16.840.1.673529.02.09.22.4.2" /> <id nullFlavor="NA" /> < code codeSystem="local" code="CAION" displayName="CALCIUM IONIZED" /> < statusCode code="completed" /> <effectiveTime value="890414780916" /> <value unit="mg/dL" xsi:type="PQ" value="4.7" /> < referenceRange> <observationRange> <text>4.5-5.3</text> </observationRange> </referenceRange> </observation > </component> </organizer> </entry> <entry> <organizer moodCode= "EVN" classCode="BATTERY"> <templateId root="06.08.840.1.031309.02.09.22.4.1 " /> <id nullFlavor="NA" /> <code codeSystem="local" code="CBCWD" displayName="CBC With Platelet and Differential" /> <statusCode code= "completed" /> <component> <observation moodCode="EVN" classCode= "OBS"> <templateId root="06.08.840.1.769914.22.4.2" /> < id nullFlavor="NA" /> <code codeSystem="local" code="ABASR" displayName ="Absolute Basophils" /> <statusCode code="completed" /> < effectiveTime value="840013228214" /> <value unit="10*3/uL" xsi:type= "PQ" value="0.01" /> <referenceRange> <observationRange> <text>0.00-0.20</text> </observationRange> </ referenceRange> </observation> </component> <component> <observation moodCode="EVN" classCode="OBS"> <templateId root= "216.840.1.518758.10.20.22.4.2" /> <id nullFlavor="NA" /> < code codeSystem="local" code="AEOSR" displayName="Absolute Eosinophils" /> <statusCode code="completed" /> <effectiveTime value="411084484107 " /> <value unit="10*3/uL" xsi:type="PQ" value="0.00" /> < referenceRange> <observationRange> <text>0.00-0.50</text > </observationRange> </referenceRange> </observation > </component> <component> <observation moodCode="EVN" classCode="OBS"> <templateId root="840.1.850112.22.4.2" /> <id nullFlavor="NA" /> <code codeSystem="local" code="ALYMR" displayName="Absolute Lymphocytes" /> <statusCode code="completed" /> <effectiveTime value="335077564609" /> <value unit="10*3/uL" xsi:type="PQ" value="1.08" /> <referenceRange> < observationRange> <text>0.80-3.30</text> </ observationRange> </referenceRange> </observation> </ component> <component> <observation moodCode="EVN" classCode="OBS"> <templateId root="06.08.840.1.425128.10.20.22.4.2" /> <id nullFlavor="NA" /> <code codeSystem="local" code="AMONR" displayName= "Absolute Monocytes" /> <statusCode code="completed" /> < effectiveTime value="544920850331" /> <value unit="10*3/uL" xsi:type= "PQ" value="0.06" /> <interpretationCode codeSystem="local" code="*" / > <referenceRange> <observationRange> <text> 0.30-1.00</text> </observationRange> </referenceRange> </observation> </component> <component> <observation moodCode="EVN" classCode="OBS"> <templateId root= "216.840.1.747133.10.20.22.4.2" /> <id nullFlavor="NA" /> < code codeSystem="local" code="ASEGR" displayName="Absolute Neutrophils" /> <statusCode code="completed" /> <effectiveTime value="140172652152 " /> <value unit="10*3/uL" xsi:type="PQ" value="9.49" /> < interpretationCode codeSystem="local" code="*" /> <referenceRange> <observationRange> <text>1.90-7.00</text> </ observationRange> </referenceRange> </observation> </ component> <component> <observation moodCode="EVN" classCode="OBS"> <templateId root="216.840.1.783914.10.20.22.4.2" /> <id nullFlavor="NA" /> <code codeSystem="local" code="BASOR" displayName= "Basophils" /> <statusCode code="completed" /> <effectiveTime value="505962648298" /> <value unit="%" xsi:type="PQ" value="0" /> <referenceRange> <observationRange> <text>0-2< /text> </observationRange> </referenceRange> </ observation> </component> <component> <observation moodCode= "EVN" classCode="OBS"> <templateId root="16.840.1.278857.10.20.22.4.2 " /> <id nullFlavor="NA" /> <code codeSystem="local" code= "EOSR" displayName="Eosinophils" /> <statusCode code="completed" /> <effectiveTime value="" /> <value unit="%" xsi: type="PQ" value="0" /> <referenceRange> <observationRange> <text>0-4</text> </observationRange> </ referenceRange> </observation> </component> <component> <observation moodCode="EVN" classCode="OBS"> <templateId root= "06.08.840.1.440604.10.22.4.2" /> <id nullFlavor="NA" /> < code codeSystem="local" code="HCT" displayName="HCT" /> <statusCode code="completed" /> <effectiveTime value="" /> < value unit="%" xsi:type="PQ" value="43.8" /> <referenceRange> <observationRange> <text>37.0-47.0</text> </ observationRange> </referenceRange> </observation> </ component> <component> <observation moodCode="EVN" classCode="OBS"> <templateId root="06.08.840.1.178577.10.20.22.4.2" /> <id nullFlavor="NA" /> <code codeSystem="local" code="HGB" displayName="HGB " /> <statusCode code="completed" /> <effectiveTime value= "" /> <value unit="g/dL" xsi:type="PQ" value="14.8" /> <referenceRange> <observationRange> <text>12.0- 16.0</text> </observationRange> </referenceRange> </ observation> </component> <component> <observation moodCode= "EVN" classCode="OBS"> <templateId root="216.840.1.299273.10..4.2 " /> <id nullFlavor="NA" /> <code codeSystem="local" code= "IMGA" displayName="Immature Granulocytes" /> <statusCode code= "completed" /> <effectiveTime value="" /> <value unit="%" xsi:type="PQ" value="0.3" /> <referenceRange> < observationRange> <text>0.0-1.0</text> </ observationRange> </referenceRange> </observation> </ component> <component> <observation moodCode="EVN" classCode="OBS"> <templateId root="06.08.840.1.079350.02.09.224.2" /> <id nullFlavor="NA" /> <code codeSystem="local" code="LYMPR" displayName= "Lymphocytes" /> <statusCode code="completed" /> < effectiveTime value="" /> <value unit="%" xsi:type="PQ " value="10" /> <interpretationCode codeSystem="local" code="*" /> <referenceRange> <observationRange> <text>20-46</ text> </observationRange> </referenceRange> </ observation> </component> <component> <observation moodCode= "EVN" classCode="OBS"> <templateId root="16.840.1.673294...4.2 " /> <id nullFlavor="NA" /> <code codeSystem="local" code="MCH " displayName="MCH" /> <statusCode code="completed" /> < effectiveTime value="" /> <value unit="pg" xsi:type="PQ" value="33.8" /> <interpretationCode codeSystem="local" code="*" /> <referenceRange> <observationRange> <text>27.0- 32.0</text> </observationRange> </referenceRange> </ observation> </component> <component> <observation moodCode= "EVN" classCode="OBS"> <templateId root="216.840.1.149319.02.09.22.4.2 " /> <id nullFlavor="NA" /> <code codeSystem="local" code= "MCHC" displayName="MCHC" /> <statusCode code="completed" /> < effectiveTime value="" /> <value unit="g/dL" xsi:type="PQ" value="33.8" /> <referenceRange> <observationRange> <text>32.0-36.0</text> </observationRange> </ referenceRange> </observation> </component> <component> <observation moodCode="EVN" classCode="OBS"> <templateId root= "216.840.1.730768.02.09.22.4.2" /> <id nullFlavor="NA" /> < code codeSystem="local" code="MCV" displayName="MCV" /> <statusCode code="completed" /> <effectiveTime value="" /> < value unit="fL" xsi:type="PQ" value="100.0" /> <interpretationCode codeSystem="local" code="*" /> <referenceRange> < observationRange> <text>82.0-99.0</text> </ observationRange> </referenceRange> </observation> </ component> <component> <observation moodCode="EVN" classCode="OBS"> <templateId root="2.16.840.1.963809.1022.4.2" /> <id nullFlavor="NA" /> <code codeSystem="local" code="MONOR" displayName= "Monocytes" /> <statusCode code="completed" /> <effectiveTime value="" /> <value unit="%" xsi:type="PQ" value="1" /> <interpretationCode codeSystem="local" code="*" /> < referenceRange> <observationRange> <text>4-11</text> </observationRange> </referenceRange> </observation> </component> <component> <observation moodCode="EVN" classCode= "OBS"> <templateId root="840.1.284137.02.09.22.4.2" /> < id nullFlavor="NA" /> <code codeSystem="local" code="MPV" displayName= "MPV" /> <statusCode code="completed" /> <effectiveTime value= "" /> <value unit="fL" xsi:type="PQ" value="9.3" /> <interpretationCode codeSystem="local" code="*" /> <referenceRange> <observationRange> <text>9.4-12.4</text> </ observationRange> </referenceRange> </observation> </ component> <component> <observation moodCode="EVN" classCode="OBS"> <templateId root="06.08.840.1.312894.10.2022.4.2" /> <id nullFlavor="NA" /> <code codeSystem="local" code="SEGR" displayName= "Neutrophils" /> <statusCode code="completed" /> < effectiveTime value="" /> <value unit="%" xsi:type="PQ " value="89" /> <interpretationCode codeSystem="local" code="*" /> <referenceRange> <observationRange> <text>51-75</ text> </observationRange> </referenceRange> </ observation> </component> <component> <observation moodCode= "EVN" classCode="OBS"> <templateId root="216.840.1.863966.10..4.2 " /> <id nullFlavor="NA" /> <code codeSystem="local" code= "NRBCA" displayName="Nucleated RBC Automated" /> <statusCode code= "completed" /> <effectiveTime value="" /> <value unit="/100WBC" xsi:type="PQ" value="0.0" /> <referenceRange> <observationRange> <text /> </observationRange> </referenceRange> </observation> </component> <component> <observation moodCode="EVN" classCode="OBS"> <templateId root= "06.08.840.1.163053.10.4.2" /> <id nullFlavor="NA" /> < code codeSystem="local" code="PLT" displayName="Platelet Count" /> < statusCode code="completed" /> <effectiveTime value="" /> <value unit="K/uL" xsi:type="PQ" value="342" /> < referenceRange> <observationRange> <text>150-400</text> </observationRange> </referenceRange> </observation > </component> <component> <observation moodCode="EVN" classCode="OBS"> <templateId root="06.08.840.1.380325.10.4.2" /> <id nullFlavor="NA" /> <code codeSystem="local" code="RBC" displayName="RBC" /> <statusCode code="completed" /> < effectiveTime value="" /> <value unit="10*6/uL" xsi:type= "PQ" value="4.38" /> <referenceRange> <observationRange> <text>4.00-5.20</text> </observationRange> </ referenceRange> </observation> </component> <component> <observation moodCode="EVN" classCode="OBS"> <templateId root= "216.840.1.040807...22.4.2" /> <id nullFlavor="NA" /> < code codeSystem="local" code="RDW" displayName="RDW" /> <statusCode code="completed" /> <effectiveTime value="912703164135" /> < value unit="%" xsi:type="PQ" value="14.1" /> <referenceRange> <observationRange> <text>11.5-14.5</text> </ observationRange> </referenceRange> </observation> </ component> <component> <observation moodCode="EVN" classCode="OBS"> <templateId root="216.840.1.199151.02.09.22.4.2" /> <id nullFlavor="NA" /> <code codeSystem="local" code="WBCIR" displayName= "WBC" /> <statusCode code="completed" /> <effectiveTime value= "001172172520" /> <value unit="K/uL" xsi:type="PQ" value="10.7" /> <referenceRange> <observationRange> <text>4.8-10.8 </text> </observationRange> </referenceRange> </ observation> </component> </organizer> </entry> <entry> <organizer moodCode="EVN" classCode="BATTERY"> <templateId root= "2.16.840.1.577700..22.4.1" /> <id nullFlavor="NA" /> <code codeSystem="local" code="CMP" displayName="Comprehensive Metabolic Panel (CMP)" /> <statusCode code="completed" /> <component> <observation moodCode="EVN" classCode="OBS"> <templateId root= "06.08.840.1.920704.10..22.4.2" /> <id nullFlavor="NA" /> < code codeSystem="local" code="ALB" displayName="Albumin" /> < statusCode code="completed" /> <effectiveTime value="" /> <value unit="g/dL" xsi:type="PQ" value="5.1" /> < interpretationCode codeSystem="local" code="*" /> <referenceRange> <observationRange> <text>3.5-4.8</text> </ observationRange> </referenceRange> </observation> </ component> <component> <observation moodCode="EVN" classCode="OBS"> <templateId root="840.1.636091...4.2" /> <id nullFlavor="NA" /> <code codeSystem="local" code="ALP" displayName= "Alkaline Phosphatase" /> <statusCode code="completed" /> < effectiveTime value="[id number]" /> <value unit="U/L" xsi:type="PQ" value="60" /> <referenceRange> <observationRange> <text>26-104</text> </observationRange> </referenceRange > </observation> </component> <component> <observation moodCode="EVN" classCode="OBS"> <templateId root= "06.08.840.1.536842.10..22.4.2" /> <id nullFlavor="NA" /> < code codeSystem="local" code="ALT" displayName="ALT (SGPT)" /> < statusCode code="completed" /> <effectiveTime value="" /> <value unit="U/L" xsi:type="PQ" value="25" /> <referenceRange > <observationRange> <text>14-54</text> </ observationRange> </referenceRange> </observation> </ component> <component> <observation moodCode="EVN" classCode="OBS"> <templateId root="06.08.840.1.492445.10...4.2" /> <id nullFlavor="NA" /> <code codeSystem="local" code="AGAP" displayName= "Anion Gap" /> <statusCode code="completed" /> <effectiveTime value="" /> <value unit="mEq/L" xsi:type="PQ" value="11" / > <referenceRange> <observationRange> <text>3- 20</text> </observationRange> </referenceRange> </ observation> </component> <component> <observation moodCode= "EVN" classCode="OBS"> <templateId root="06.08.840.1.632983.10...4.2 " /> <id nullFlavor="NA" /> <code codeSystem="local" code="AST " displayName="AST (SGOT)" /> <statusCode code="completed" /> <effectiveTime value="" /> <value unit="U/L" xsi:type="PQ" value="25" /> <referenceRange> <observationRange> <text>15-41</text> </observationRange> </referenceRange > </observation> </component> <component> <observation moodCode="EVN" classCode="OBS"> <templateId root= "06.08.840.1.485104.10...4.2" /> <id nullFlavor="NA" /> < code codeSystem="local" code="BILIT" displayName="Bilirubin Total" /> < statusCode code="completed" /> <effectiveTime value="" /> <value unit="mg/dL" xsi:type="PQ" value="0.6" /> < referenceRange> <observationRange> <text>0.2-1.2</text> </observationRange> </referenceRange> </observation > </component> <component> <observation moodCode="EVN" classCode="OBS"> <templateId root="216.840.1.604271.10...4.2" /> <id nullFlavor="NA" /> <code codeSystem="local" code="BUN" displayName="BUN" /> <statusCode code="completed" /> < effectiveTime value="" /> <value unit="mg/dL" xsi:type="PQ " value="8" /> <referenceRange> <observationRange> <text>4-20</text> </observationRange> </referenceRange > </observation> </component> <component> <observation moodCode="EVN" classCode="OBS"> <templateId root= "216.840.1.213456.10..22.4.2" /> <id nullFlavor="NA" /> < code codeSystem="local" code="CA" displayName="Calcium" /> <statusCode code="completed" /> <effectiveTime value="" /> < value unit="mg/dL" xsi:type="PQ" value="9.9" /> <referenceRange> <observationRange> <text>8.6-10.0</text> </ observationRange> </referenceRange> </observation> </ component> <component> <observation moodCode="EVN" classCode="OBS"> <templateId root="16.840.1.464449.10.20.22.4.2" /> <id nullFlavor="NA" /> <code codeSystem="local" code="CL" displayName= "Chloride" /> <statusCode code="completed" /> <effectiveTime value="620024868201" /> <value unit="mEq/L" xsi:type="PQ" value="105" / > <referenceRange> <observationRange> <text>99- 109</text> </observationRange> </referenceRange> </ observation> </component> <component> <observation moodCode= "EVN" classCode="OBS"> <templateId root="16.840.1.116711.10.22.4.2 " /> <id nullFlavor="NA" /> <code codeSystem="local" code="CO2 " displayName="CO2" /> <statusCode code="completed" /> < effectiveTime value="" /> <value unit="mEq/L" xsi:type="PQ " value="19" /> <interpretationCode codeSystem="local" code="*" /> <referenceRange> <observationRange> <text>22-32</ text> </observationRange> </referenceRange> </ observation> </component> <component> <observation moodCode= "EVN" classCode="OBS"> <templateId root="06.08.840.1.902086.10..22.4.2 " /> <id nullFlavor="NA" /> <code codeSystem="local" code= "CREAT" displayName="Creatinine" /> <statusCode code="completed" /> <effectiveTime value="001986112644" /> <value unit="mg/dL" xsi: type="PQ" value="0.60" /> <referenceRange> <observationRange > <text>0.44-1.03</text> </observationRange> </ referenceRange> </observation> </component> <component> <observation moodCode="EVN" classCode="OBS"> <templateId root= "216.840.1.726541.10.4.2" /> <id nullFlavor="NA" /> < code codeSystem="local" code="GLOB" displayName="Globulin" /> < statusCode code="completed" /> <effectiveTime value="" /> <value unit="g/dL" xsi:type="PQ" value="3.8" /> < referenceRange> <observationRange> <text>1.9-4.3</text> </observationRange> </referenceRange> </observation > </component> <component> <observation moodCode="EVN" classCode="OBS"> <templateId root="06.08.840.1.441261.02.09.22.4.2" /> <id nullFlavor="NA" /> <code codeSystem="local" code="GLU" displayName="Glucose" /> <statusCode code="completed" /> < effectiveTime value="" /> <value unit="mg/dL" xsi:type="PQ " value="119" /> <interpretationCode codeSystem="local" code="*" /> <referenceRange> <observationRange> <text>70-100< /text> </observationRange> </referenceRange> </ observation> </component> <component> <observation moodCode= "EVN" classCode="OBS"> <templateId root="06.08.840.1.674920.02.09.22.4.2 " /> <id nullFlavor="NA" /> <code codeSystem="local" code="K" displayName="Potassium" /> <statusCode code="completed" /> < effectiveTime value="812251312631" /> <value unit="mEq/L" xsi:type="PQ " value="4.1" /> <referenceRange> <observationRange> <text>3.6-5.1</text> </observationRange> </ referenceRange> </observation> </component> <component> <observation moodCode="EVN" classCode="OBS"> <templateId root= "216.840.1.018833.02.09.22.4.2" /> <id nullFlavor="NA" /> < code codeSystem="local" code="TP" displayName="Protein" /> <statusCode code="completed" /> <effectiveTime value="" /> < value unit="g/dL" xsi:type="PQ" value="8.9" /> <interpretationCode codeSystem="local" code="*" /> <referenceRange> < observationRange> <text>6.1-7.9</text> </ observationRange> </referenceRange> </observation> </ component> <component> <observation moodCode="EVN" classCode="OBS"> <templateId root="216.840.1.642448.02.09.22.4.2" /> <id nullFlavor="NA" /> <code codeSystem="local" code="NA" displayName= "Sodium" /> <statusCode code="completed" /> <effectiveTime value="" /> <value unit="mEq/L" xsi:type="PQ" value="135" / > <interpretationCode codeSystem="local" code="*" /> < referenceRange> <observationRange> <text>136-144</text> </observationRange> </referenceRange> </observation > </component> </organizer> </entry> <entry> <organizer moodCode= "EVN" classCode="BATTERY"> <templateId root="16.840.1.463381.10..22.4.1 " /> <id nullFlavor="NA" /> <code codeSystem="local" code="ALC" displayName="Alcohol, Blood" /> <statusCode code="completed" /> < component> <observation moodCode="EVN" classCode="OBS"> < templateId root="06.08.840.1.670380.02.09.22.4.2" /> <id nullFlavor="NA " /> <code codeSystem="local" code="ALC" displayName="Alcohol, Blood" / > <statusCode code="completed" /> <effectiveTime value= "" /> <value unit="mg/dL" xsi:type="PQ" value="Not Detected " /> <referenceRange> <observationRange> <text /> </observationRange> </referenceRange> </ observation> </component> </organizer> </entry> <entry> <organizer moodCode="EVN" classCode="BATTERY"> <templateId root= "06.08.840.1.945852.02.09.22.4.1" /> <id nullFlavor="NA" /> <code codeSystem="local" code="ACETM" displayName="Acetaminophen" /> <statusCode code="completed" /> <component> <observation moodCode="EVN" classCode="OBS"> <templateId root="06.08.840.1.919218.10..22.4.2" /> <id nullFlavor="NA" /> <code codeSystem="local" code="ACETM" displayName="Acetaminophen" /> <statusCode code="completed" /> <effectiveTime value="214472130773" /> <value unit="mcg/mL" xsi:type= "PQ" value="<10" /> <referenceRange> <observationRange> <text>10-30</text> </observationRange> </ referenceRange> </observation> </component> </organizer> </entry > <entry> <organizer moodCode="EVN" classCode="BATTERY"> <templateId root="06.08.840.1.279692.02.09.22.4.1" /> <id nullFlavor="NA" /> <code codeSystem="local" code="SALIC" displayName="Salicylate" /> <statusCode code="completed" /> <component> <observation moodCode="EVN" classCode="OBS"> <templateId root="840.1.630389.02.09.224.2" /> <id nullFlavor="NA" /> <code codeSystem="local" code="SALIC" displayName="Salicylate" /> <statusCode code="completed" /> < effectiveTime value="086633369591" /> <value unit="mg/dL" xsi:type="PQ " value="<4" /> <referenceRange> <observationRange> <text>0-30</text> </observationRange> </ referenceRange> </observation> </component> </organizer> </entry > <entry> <organizer moodCode="EVN" classCode="BATTERY"> <templateId root="840.1.597434.02.09.22.4.1" /> <id nullFlavor="NA" /> <code codeSystem="local" code="GFR" displayName="eGFR" /> <statusCode code= "completed" /> <component> <observation moodCode="EVN" classCode= "OBS"> <templateId root="06.08.840.1.044431.02.09.22.4.2" /> < id nullFlavor="NA" /> <code codeSystem="local" code="GFR" displayName= "eGFR" /> <statusCode code="completed" /> <effectiveTime value ="158032562554" /> <value unit="mL/min" xsi:type="PQ" value=">60" / > <referenceRange> <observationRange> <text>&gt ;60</text> </observationRange> </referenceRange> </ observation> </component> </organizer> </entry> <entry> <organizer moodCode="EVN" classCode="BATTERY"> <templateId root= "216.840.1.782308.10..22.4.1" /> <id nullFlavor="NA" /> <code codeSystem="local" code="PREGN" displayName=" Screen, Urine NPT" /> <statusCode code="completed" /> <component> <observation moodCode ="EVN" classCode="OBS"> <templateId root= "216.840.1.924555.10..22.4.2" /> <id nullFlavor="NA" /> < code codeSystem="local" code="PREGN" displayName=" Screen, Urine NPT" / > <statusCode code="completed" /> <effectiveTime value= "997829528178" /> <value unit="NA" xsi:type="PQ" value="Negative" /> <referenceRange> <observationRange> <text /> </observationRange> </referenceRange> </observation> </component> </organizer> </entry> <entry> <organizer moodCode="EVN " classCode="BATTERY"> <templateId root="216.840.1.060074.10..22.4.1" / > <id nullFlavor="NA" /> <code codeSystem="local" code="UA" displayName="Urinalysis with reflex microscopic" /> <statusCode code= "completed" /> <component> <observation moodCode="EVN" classCode= "OBS"> <templateId root="16.840.1.040096.10..4.2" /> < id nullFlavor="NA" /> <code codeSystem="local" code="UAPP" displayName= "Appearance" /> <statusCode code="completed" /> < effectiveTime value="540623816209" /> <value unit="NA" xsi:type="PQ" value="Cloudy" /> <interpretationCode codeSystem="local" code="*" /> <referenceRange> <observationRange> <text /> </observationRange> </referenceRange> </observation> </component> <component> <observation moodCode="EVN" classCode= "OBS"> <templateId root="16.840.1.773418.02.09.22.4.2" /> < id nullFlavor="NA" /> <code codeSystem="local" code="UBIL" displayName= "Bilirubin" /> <statusCode code="completed" /> <effectiveTime value="338082896547" /> <value unit="NA" xsi:type="PQ" value="Negative " /> <referenceRange> <observationRange> <text> Negative</text> </observationRange> </referenceRange> </observation> </component> <component> <observation moodCode ="EVN" classCode="OBS"> <templateId root= "16.840.1.944048.02.09.22.4.2" /> <id nullFlavor="NA" /> < code codeSystem="local" code="UBLD" displayName="Blood" /> <statusCode code="completed" /> <effectiveTime value="081174924133" /> < value unit="NA" xsi:type="PQ" value="Negative" /> <referenceRange> <observationRange> <text>Negative</text> </ observationRange> </referenceRange> </observation> </ component> <component> <observation moodCode="EVN" classCode="OBS"> <templateId root="16.840.1.678502.02.09.22.4.2" /> <id nullFlavor="NA" /> <code codeSystem="local" code="UCOLR" displayName= "Color" /> <statusCode code="completed" /> <effectiveTime value="" /> <value unit="NA" xsi:type="PQ" value="Yellow" / > <referenceRange> <observationRange> <text /> </observationRange> </referenceRange> </observation > </component> <component> <observation moodCode="EVN" classCode="OBS"> <templateId root="16.840.1.889689.02.09.22.4.2" /> <id nullFlavor="NA" /> <code codeSystem="local" code="UGLU" displayName="Glucose, Urine" /> <statusCode code="completed" /> <effectiveTime value="" /> <value unit="" xsi:type="PQ" value="Negative" /> <referenceRange> <observationRange> <text>Negative</text> </observationRange> </ referenceRange> </observation> </component> <component> <observation moodCode="EVN" classCode="OBS"> <templateId root= "06.08.840.1.236293.10.4.2" /> <id nullFlavor="NA" /> < code codeSystem="local" code="UKET" displayName="Ketones" /> < statusCode code="completed" /> <effectiveTime value="" /> <value unit="" xsi:type="PQ" value="Trace" /> < interpretationCode codeSystem="local" code="*" /> <referenceRange> <observationRange> <text>Negative</text> </ observationRange> </referenceRange> </observation> </ component> <component> <observation moodCode="EVN" classCode="OBS"> <templateId root="06.08.840.1.604871.10.4.2" /> <id nullFlavor="NA" /> <code codeSystem="local" code="ULEU" displayName= "Leukocyte Esterase" /> <statusCode code="completed" /> < effectiveTime value="779387962622" /> <value unit="NA" xsi:type="PQ" value="Negative" /> <referenceRange> <observationRange> <text>Negative</text> </observationRange> </ referenceRange> </observation> </component> <component> <observation moodCode="EVN" classCode="OBS"> <templateId root= "06.08.840.1.580969.02.09.22.4.2" /> <id nullFlavor="NA" /> < code codeSystem="local" code="UNIT" displayName="Nitrites" /> < statusCode code="completed" /> <effectiveTime value="" /> <value unit="NA" xsi:type="PQ" value="Negative" /> < referenceRange> <observationRange> <text>Negative</text > </observationRange> </referenceRange> </observation > </component> <component> <observation moodCode="EVN" classCode="OBS"> <templateId root="06.08.840.1.105922.02.09.22.4.2" /> <id nullFlavor="NA" /> <code codeSystem="local" code="UPH" displayName="pH" /> <statusCode code="completed" /> < effectiveTime value="" /> <value unit="NA" xsi:type="PQ" value="5.0" /> <referenceRange> <observationRange> <text>5.0-8.0</text> </observationRange> </ referenceRange> </observation> </component> <component> <observation moodCode="EVN" classCode="OBS"> <templateId root= "06.08.840.1.975252.10..22.4.2" /> <id nullFlavor="NA" /> < code codeSystem="local" code="UPRO" displayName="Protein" /> < statusCode code="completed" /> <effectiveTime value="536221359979" /> <value unit="NA" xsi:type="PQ" value="Pos 1+" /> < interpretationCode codeSystem="local" code="*" /> <referenceRange> <observationRange> <text>Negative</text> </ observationRange> </referenceRange> </observation> </ component> <component> <observation moodCode="EVN" classCode="OBS"> <templateId root="06.08.840.1.911281.02.09.22.4.2" /> <id nullFlavor="NA" /> <code codeSystem="local" code="USPG" displayName= "Specific [place]" /> <statusCode code="completed" /> < effectiveTime value="263580171535" /> <value unit="NA" xsi:type="PQ" value="1.040" /> <interpretationCode codeSystem="local" code="*" /> <referenceRange> <observationRange> <text>1.003- 1.030</text> </observationRange> </referenceRange> </ observation> </component> <component> <observation moodCode= "EVN" classCode="OBS"> <templateId root="06.08.840.1.870598.22.4.2 " /> <id nullFlavor="NA" /> <code codeSystem="local" code= "UTYP" displayName="UA Collection type" /> <statusCode code="completed " /> <effectiveTime value="944998219215" /> <value unit="NA" xsi:type="PQ" value="Not Specified" /> <referenceRange> < observationRange> <text /> </observationRange> </referenceRange> </observation> </component> <component> <observation moodCode="EVN" classCode="OBS"> <templateId root= "16.840.1.930817.10..4.2" /> <id nullFlavor="NA" /> < code codeSystem="local" code="UURO" displayName="Urobilinogen" /> < statusCode code="completed" /> <effectiveTime value="042031396991" /> <value unit="mg/dL" xsi:type="PQ" value="Negative" /> < referenceRange> <observationRange> <text><1.0</text> </observationRange> </referenceRange> </observation > </component> </organizer> </entry> <entry> <organizer moodCode= "EVN" classCode="BATTERY"> <templateId root="06.08.840.1.772765...4.1 " /> <id nullFlavor="NA" /> <code codeSystem="local" code="UDRGH" displayName="Urine Drug Screen" /> <statusCode code="completed" /> < component> <observation moodCode="EVN" classCode="OBS"> < templateId root="06.08.840.1.908320.02.09.22.4.2" /> <id nullFlavor="NA " /> <code codeSystem="local" code="UAMP1" displayName="Amph/Meth/ Ecstasy" /> <statusCode code="completed" /> <effectiveTime value="200630809293" /> <value unit="NA" xsi:type="PQ" value="Negative " /> <referenceRange> <observationRange> <text /> </observationRange> </referenceRange> </ observation> </component> <component> <observation moodCode= "EVN" classCode="OBS"> <templateId root="06.08.840.1.107614.02.09.22.4.2 " /> <id nullFlavor="NA" /> <code codeSystem="local" code= "UBAR1" displayName="Barbiturates" /> <statusCode code="completed" /> <effectiveTime value="050815133889" /> <value unit="NA" xsi: type="PQ" value="Negative" /> <referenceRange> < observationRange> <text /> </observationRange> </referenceRange> </observation> </component> <component> <observation moodCode="EVN" classCode="OBS"> <templateId root= "06.08.840.1.431158.02.09.22.4.2" /> <id nullFlavor="NA" /> < code codeSystem="local" code="UBEN1" displayName="Benzodiazepine" /> < statusCode code="completed" /> <effectiveTime value="853561239898" /> <value unit="NA" xsi:type="PQ" value="Negative" /> < referenceRange> <observationRange> <text /> < /observationRange> </referenceRange> </observation> </ component> <component> <observation moodCode="EVN" classCode="OBS"> <templateId root="06.08.840.1.482019.02.09.22.4.2" /> <id nullFlavor="NA" /> <code codeSystem="local" code="UCAN1" displayName= "Cannabinoid" /> <statusCode code="completed" /> < effectiveTime value="489229371604" /> <value unit="NA" xsi:type="PQ" value="Negative" /> <referenceRange> <observationRange> <text /> </observationRange> </referenceRange> </observation> </component> <component> <observation moodCode="EVN" classCode="OBS"> <templateId root= "216.840.1.185623.02.09.22.4.2" /> <id nullFlavor="NA" /> < code codeSystem="local" code="UCOC1" displayName="Cocaine" /> < statusCode code="completed" /> <effectiveTime value="935234803517" /> <value unit="NA" xsi:type="PQ" value="Negative" /> < referenceRange> <observationRange> <text /> < /observationRange> </referenceRange> </observation> </ component> <component> <observation moodCode="EVN" classCode="OBS"> <templateId root="06.08.840.1.138541.02.09.22.4.2" /> <id nullFlavor="NA" /> <code codeSystem="local" code="UMTD1" displayName= "EDDP (Methadone met.)" /> <statusCode code="completed" /> < effectiveTime value="001342960289" /> <value unit="NA" xsi:type="PQ" value="Negative" /> <referenceRange> <observationRange> <text /> </observationRange> </referenceRange> </observation> </component> <component> <observation moodCode="EVN" classCode="OBS"> <templateId root= "16.840.1.003492.10.4.2" /> <id nullFlavor="NA" /> < code codeSystem="local" code="UOPI1" displayName="Opiate" /> < statusCode code="completed" /> <effectiveTime value="924256194489" /> <value unit="NA" xsi:type="PQ" value="Negative" /> < referenceRange> <observationRange> <text /> < /observationRange> </referenceRange> </observation> </ component> <component> <observation moodCode="EVN" classCode="OBS"> <templateId root="06.08.840.1.704969.02.09.22.4.2" /> <id nullFlavor="NA" /> <code codeSystem="local" code="UPCP1" displayName= "Phencyclidine (PCP)" /> <statusCode code="completed" /> < effectiveTime value="100208940592" /> <value unit="NA" xsi:type="PQ" value="Negative" /> <referenceRange> <observationRange> <text /> </observationRange> </referenceRange> </observation> </component> </organizer> </entry> <entry> < organizer moodCode="EVN" classCode="BATTERY"> <templateId root= "06.08.840.1.513685.10..4.1" /> <id nullFlavor="NA" /> <code codeSystem="local" code="UMIC" displayName="Urine Microscopic" /> < statusCode code="completed" /> <component> <observation moodCode= "EVN" classCode="OBS"> <templateId root="06.08.840.1.822478.10.4.2 " /> <id nullFlavor="NA" /> <code codeSystem="local" code= "UBAC" displayName="Bacteria" /> <statusCode code="completed" /> <effectiveTime value="238914187818" /> <value unit="NA" xsi:type= "PQ" value="Numerous" /> <interpretationCode codeSystem="local" code="* " /> <referenceRange> <observationRange> <text /> </observationRange> </referenceRange> </ observation> </component> <component> <observation moodCode= "EVN" classCode="OBS"> <templateId root="840.1.694087.10.22.4.2 " /> <id nullFlavor="NA" /> <code codeSystem="local" code= "UEPI" displayName="Epithelial Cells" /> <statusCode code="completed" / > <effectiveTime value="" /> <value unit="/HPF" xsi:type="PQ" value="10" /> <referenceRange> < observationRange> <text /> </observationRange> </referenceRange> </observation> </component> <component> <observation moodCode="EVN" classCode="OBS"> <templateId root= "840.1.567859.10.4.2" /> <id nullFlavor="NA" /> < code codeSystem="local" code="URBC" displayName="RBC, Urine" /> < statusCode code="completed" /> <effectiveTime value="723310301324" /> <value unit="/HPF" xsi:type="PQ" value="0" /> <referenceRange > <observationRange> <text>0-2</text> </ observationRange> </referenceRange> </observation> </ component> <component> <observation moodCode="EVN" classCode="OBS"> <templateId root="840.1.158049.1022.4.2" /> <id nullFlavor="NA" /> <code codeSystem="local" code="UMUC" displayName= "Urine Mucus" /> <statusCode code="completed" /> < effectiveTime value="163211247968" /> <value unit="NA" xsi:type="PQ" value="Present" /> <referenceRange> <observationRange> <text /> </observationRange> </referenceRange> </observation> </component> <component> <observation moodCode="EVN" classCode="OBS"> <templateId root= "06.08.840.1.546929.02.09.22.4.2" /> <id nullFlavor="NA" /> < code codeSystem="local" code="UWBC" displayName="WBC, Urine" /> < statusCode code="completed" /> <effectiveTime value="279868548606" /> <value unit="/HPF" xsi:type="PQ" value="0" /> <referenceRange > <observationRange> <text>0-4</text> </ observationRange> </referenceRange> </observation> </ component> </organizer> </entry> <entry> <organizer moodCode="EVN" classCode="BATTERY"> <templateId root="06.08.840.1.877536.02.09.22.4.1" /> <id nullFlavor="NA" /> <code codeSystem="local" code="PREGU" displayName="UR TEST" /> <statusCode code="completed" /> < component> <observation moodCode="EVN" classCode="OBS"> < templateId root="06.08.840.1.650148.1022.4.2" /> <id nullFlavor="NA " /> <code codeSystem="local" code="PREGU" displayName="UR TEST" /> <statusCode code="completed" /> <effectiveTime value= "642737992357" /> <value unit="" xsi:type="PQ" value="NEGATIVE" /> <referenceRange> <observationRange> <text>NEGATIVE </text> </observationRange> </referenceRange> </ observation> </component> </organizer> </entry> <entry> <organizer moodCode="EVN" classCode="BATTERY"> <templateId root= "2.16.840.1.624275.10..22.4.1" /> <id nullFlavor="NA" /> <code codeSystem="local" code="UA" displayName="URINALYSIS, ROUTINE" /> < statusCode code="completed" /> <component> <observation moodCode= "EVN" classCode="OBS"> <templateId root="216.840.1.543485.10...4.2 " /> <id nullFlavor="NA" /> <code codeSystem="local" code= "LEUESU" displayName="UA LEUKOCYTE ESTERASE DIPSTICK" /> <statusCode code="completed" /> <effectiveTime value="" /> < value unit="" xsi:type="PQ" value="TRACE" /> <referenceRange> <observationRange> <text>NEGATIVE</text> </ observationRange> </referenceRange> </observation> </ component> <component> <observation moodCode="EVN" classCode="OBS"> <templateId root="2.16.840.1.958773...4.2" /> <id nullFlavor="NA" /> <code codeSystem="local" code="NITRIU" displayName= "UA NITRITE DIPSTICK" /> <statusCode code="completed" /> < effectiveTime value="" /> <value unit="" xsi:type="PQ" value="NEGATIVE" /> <referenceRange> <observationRange> <text>NEGATIVE</text> </observationRange> </ referenceRange> </observation> </component> <component> <observation moodCode="EVN" classCode="OBS"> <templateId root= "16.840.1.382692.10..22.4.2" /> <id nullFlavor="NA" /> < code codeSystem="local" code="PROTEIU" displayName="UA PROTEIN DIPSTICK" /> <statusCode code="completed" /> <effectiveTime value= "" /> <value unit="" xsi:type="PQ" value="1+" /> < interpretationCode codeSystem="local" code="*" /> <referenceRange> <observationRange> <text>NEGATIVE</text> </ observationRange> </referenceRange> </observation> </ component> <component> <observation moodCode="EVN" classCode="OBS"> <templateId root="06.08.840.1.268936...4.2" /> <id nullFlavor="NA" /> <code codeSystem="local" code="DGLUU" displayName= "UA GLUCOSE DIPSTICK" /> <statusCode code="completed" /> < effectiveTime value="" /> <value unit="" xsi:type="PQ" value="NEGATIVE" /> <referenceRange> <observationRange> <text>NEGATIVE</text> </observationRange> </ referenceRange> </observation> </component> <component> <observation moodCode="EVN" classCode="OBS"> <templateId root= "06.08.840.1.959083.10.22.4.2" /> <id nullFlavor="NA" /> < code codeSystem="local" code="KETONU" displayName="UA KETONE DIPSTICK" /> <statusCode code="completed" /> <effectiveTime value=" " /> <value unit="" xsi:type="PQ" value="NEGATIVE" /> < referenceRange> <observationRange> <text>NEGATIVE</text > </observationRange> </referenceRange> </observation > </component> <component> <observation moodCode="EVN" classCode="OBS"> <templateId root="216.840.1.486008.10.4.2" /> <id nullFlavor="NA" /> <code codeSystem="local" code="UROBILU " displayName="UA UROBILINOGEN DIPSTICK" /> <statusCode code="completed " /> <effectiveTime value="" /> <value unit="" xsi :type="PQ" value="NORMAL" /> <referenceRange> < observationRange> <text>NORMAL</text> </observationRange > </referenceRange> </observation> </component> < component> <observation moodCode="EVN" classCode="OBS"> < templateId root="16.840.1.743197.02.09.224.2" /> <id nullFlavor="NA " /> <code codeSystem="local" code="BILU" displayName="UA BILIRUBIN DIPSTICK" /> <statusCode code="completed" /> <effectiveTime value="" /> <value unit="" xsi:type="PQ" value="3+" /> <interpretationCode codeSystem="local" code="*" /> < referenceRange> <observationRange> <text>NEGATIVE</text > </observationRange> </referenceRange> </observation > </component> <component> <observation moodCode="EVN" classCode="OBS"> <templateId root="16.840.1.533319...4.2" /> <id nullFlavor="NA" /> <code codeSystem="local" code="SPENCER" displayName="UA BLOOD DIPSTICK" /> <statusCode code="completed" /> <effectiveTime value="" /> <value unit="" xsi:type= "PQ" value="4+" /> <interpretationCode codeSystem="local" code="*" /> <referenceRange> <observationRange> <text> NEGATIVE</text> </observationRange> </referenceRange> </observation> </component> <component> <observation moodCode ="EVN" classCode="OBS"> <templateId root= "16.840.1.011081.02.09.22.4.2" /> <id nullFlavor="NA" /> < code codeSystem="local" code="SPGRU" displayName="UA SPECIFIC GRAVITY" /> <statusCode code="completed" /> <effectiveTime value=" " /> <value unit="" xsi:type="PQ" value="1.020" /> < referenceRange> <observationRange> <text>1.015-1.025</ text> </observationRange> </referenceRange> </ observation> </component> <component> <observation moodCode= "EVN" classCode="OBS"> <templateId root="16.840.1.005266.02.09.22.4.2 " /> <id nullFlavor="NA" /> <code codeSystem="local" code="FEROZ " displayName="UR PH" /> <statusCode code="completed" /> < effectiveTime value="" /> <value unit="" xsi:type="PQ" value="5.0" /> <referenceRange> <observationRange> <text>5.0-7.0</text> </observationRange> </ referenceRange> </observation> </component> </organizer> </entry > <entry> <organizer moodCode="EVN" classCode="BATTERY"> <templateId root="216.840.1.689917.02.09.22.4.1" /> <id nullFlavor="NA" /> <code codeSystem="local" code="UAMICRO" displayName="UA MICROSCOPIC" /> < statusCode code="completed" /> <component> <observation moodCode= "EVN" classCode="OBS"> <templateId root="06.08.840.1.081596.10...4.2 " /> <id nullFlavor="NA" /> <code codeSystem="local" code= "BACU" displayName="UA BACTERIA" /> <statusCode code="completed" /> <effectiveTime value="673920020633" /> <value unit="" xsi:type= "PQ" value="3+" /> <interpretationCode codeSystem="local" code="*" /> <referenceRange> <observationRange> <text> NEGATIVE</text> </observationRange> </referenceRange> </observation> </component> <component> <observation moodCode ="EVN" classCode="OBS"> <templateId root= "840.1.582893.02.09.22.4.2" /> <id nullFlavor="NA" /> < code codeSystem="local" code="EPIU" displayName="UA EPITHELIAL CELLS" /> <statusCode code="completed" /> <effectiveTime value="046704794827" /> <value unit="epi/hpf" xsi:type="PQ" value="2+" /> < interpretationCode codeSystem="local" code="*" /> <referenceRange> <observationRange> <text>0 - 1+</text> </ observationRange> </referenceRange> </observation> </ component> <component> <observation moodCode="EVN" classCode="OBS"> <templateId root="06.08.840.1.348514.02.09.22.4.2" /> <id nullFlavor="NA" /> <code codeSystem="local" code="MUCUSU" displayName= "UA MUCUS" /> <statusCode code="completed" /> <effectiveTime value="" /> <value unit="" xsi:type="PQ" value="3+" /> <interpretationCode codeSystem="local" code="*" /> < referenceRange> <observationRange> <text>NEG TO 1+</text > </observationRange> </referenceRange> </observation > </component> <component> <observation moodCode="EVN" classCode="OBS"> <templateId root="2.16.840.1.889090.10..22.4.2" /> <id nullFlavor="NA" /> <code codeSystem="local" code="RBCU" displayName="UA RBC" /> <statusCode code="completed" /> < effectiveTime value="" /> <value unit="rbc/hpf" xsi:type= "PQ" value="0-3" /> <referenceRange> <observationRange> <text>0 - 3</text> </observationRange> </ referenceRange> </observation> </component> <component> <observation moodCode="EVN" classCode="OBS"> <templateId root= "2.16.840.1.992621.10..22.4.2" /> <id nullFlavor="NA" /> < code codeSystem="local" code="UAVOL" displayName="UA VOLUME FOR EXAM" /> <statusCode code="completed" /> <effectiveTime value="" /> <value unit="mL" xsi:type="PQ" value="12.0" /> < referenceRange> <observationRange> <text>(12mL STD)</ text> </observationRange> </referenceRange> </ observation> </component> <component> <observation moodCode= "EVN" classCode="OBS"> <templateId root="06.08.840.1.028011.10...4.2 " /> <id nullFlavor="NA" /> <code codeSystem="local" code= "WBCU" displayName="UA WBC" /> <statusCode code="completed" /> <effectiveTime value="083238274356" /> <value unit="wbc/hpf" xsi:type ="PQ" value="2-5" /> <referenceRange> <observationRange> <text>0 - 5</text> </observationRange> </ referenceRange> </observation> </component> </organizer> </entry > <entry> <organizer moodCode="EVN" classCode="BATTERY"> <templateId root="06.08.840.1.790177.10..4.1" /> <id nullFlavor="NA" /> <code codeSystem="local" code="CBCD" displayName="CBC W/DIFF" /> <statusCode code ="completed" /> <component> <observation moodCode="EVN" classCode= "OBS"> <templateId root="06.08.840.1.175307....4.2" /> < id nullFlavor="NA" /> <code codeSystem="local" code="GR#" displayName= "GRANULOCYTE #" /> <statusCode code="completed" /> < effectiveTime value="469285975693" /> <value unit="k/cumm" xsi:type="PQ " value="4.1" /> <referenceRange> <observationRange> <text>2.0-9.0</text> </observationRange> </ referenceRange> </observation> </component> <component> <observation moodCode="EVN" classCode="OBS"> <templateId root= "06.08.840.1.990436.02.09.224.2" /> <id nullFlavor="NA" /> < code codeSystem="local" code="GR%" displayName="GRANULOCYTE %" /> <statusCode code="completed" /> <effectiveTime value="700336636403 " /> <value unit="%" xsi:type="PQ" value="59" /> < referenceRange> <observationRange> <text>50-75</text> </observationRange> </referenceRange> </observation> </component> <component> <observation moodCode="EVN" classCode= "OBS"> <templateId root="216.840.1.900561.02.09.224.2" /> < id nullFlavor="NA" /> <code codeSystem="local" code="LY#" displayName= "LYMPHOCYTE #" /> <statusCode code="completed" /> < effectiveTime value="325353649437" /> <value unit="k/cumm" xsi:type="PQ " value="2.4" /> <referenceRange> <observationRange> <text>1.0-4.0</text> </observationRange> </ referenceRange> </observation> </component> <component> <observation moodCode="EVN" classCode="OBS"> <templateId root= "216.840.1.902955.02.09.22.4.2" /> <id nullFlavor="NA" /> < code codeSystem="local" code="LY%" displayName="LYMPHOCYTE %" /> <statusCode code="completed" /> <effectiveTime value="195179136433" /> <value unit="%" xsi:type="PQ" value="34" /> < interpretationCode codeSystem="local" code="*" /> <referenceRange> <observationRange> <text>20-30</text> </ observationRange> </referenceRange> </observation> </ component> <component> <observation moodCode="EVN" classCode="OBS"> <templateId root="216.840.1.251718.10.22.4.2" /> <id nullFlavor="NA" /> <code codeSystem="local" code="MCH" displayName= "MEAN CELL HGB" /> <statusCode code="completed" /> < effectiveTime value="534436534270" /> <value unit="pg" xsi:type="PQ" value="33.9" /> <interpretationCode codeSystem="local" code="*" /> <referenceRange> <observationRange> <text>27.0- 33.0</text> </observationRange> </referenceRange> </ observation> </component> <component> <observation moodCode= "EVN" classCode="OBS"> <templateId root="216.840.1.858448.02.09.22.4.2 " /> <id nullFlavor="NA" /> <code codeSystem="local" code= "MCHC" displayName="MEAN CELL HGB CONCENTRATION" /> <statusCode code= "completed" /> <effectiveTime value="552171850158" /> <value unit="g/dL" xsi:type="PQ" value="33.0" /> <referenceRange> < observationRange> <text>32.0-37.0</text> </ observationRange> </referenceRange> </observation> </ component> <component> <observation moodCode="EVN" classCode="OBS"> <templateId root="216.840.1.808203.22.4.2" /> <id nullFlavor="NA" /> <code codeSystem="local" code="MCV" displayName= "MEAN CELL VOLUME" /> <statusCode code="completed" /> < effectiveTime value="396845262153" /> <value unit="fl" xsi:type="PQ" value="102.9" /> <interpretationCode codeSystem="local" code="*" /> <referenceRange> <observationRange> <text>80.0- 100.0</text> </observationRange> </referenceRange> </ observation> </component> <component> <observation moodCode= "EVN" classCode="OBS"> <templateId root="216.840.1.974146.10.20.22.4.2 " /> <id nullFlavor="NA" /> <code codeSystem="local" code="MO# " displayName="MONOCYTE #" /> <statusCode code="completed" /> <effectiveTime value="068130384235" /> <value unit="k/cumm" xsi:type= "PQ" value="0.4" /> <referenceRange> <observationRange> <text>0.1-1.0</text> </observationRange> </ referenceRange> </observation> </component> <component> <observation moodCode="EVN" classCode="OBS"> <templateId root= "216.840.1.885802.10.20.22.4.2" /> <id nullFlavor="NA" /> < code codeSystem="local" code="MO%" displayName="MONOCYTE %" /> <statusCode code="completed" /> <effectiveTime value="576348196294" /> <value unit="%" xsi:type="PQ" value="6" /> < referenceRange> <observationRange> <text>4-6</text> </observationRange> </referenceRange> </observation> </component> <component> <observation moodCode="EVN" classCode= "OBS"> <templateId root="16.840.1.167411.10..22.4.2" /> < id nullFlavor="NA" /> <code codeSystem="local" code="RBC" displayName= "RED BLOOD CELL" /> <statusCode code="completed" /> < effectiveTime value="155122743609" /> <value unit="m/cumm" xsi:type="PQ " value="3.45" /> <interpretationCode codeSystem="local" code="*" /> <referenceRange> <observationRange> <text>4.00- 6.00</text> </observationRange> </referenceRange> </ observation> </component> <component> <observation moodCode= "EVN" classCode="OBS"> <templateId root="16.840.1.819428.02.09.22.4.2 " /> <id nullFlavor="NA" /> <code codeSystem="local" code="RDW " displayName="RED CELL DISTRIBUTION WIDTH" /> <statusCode code= "completed" /> <effectiveTime value="011321568234" /> <value unit="%" xsi:type="PQ" value="13.7" /> <referenceRange> <observationRange> <text>11.0-15.6</text> </ observationRange> </referenceRange> </observation> </ component> <component> <observation moodCode="EVN" classCode="OBS"> <templateId root="16.840.1.305708.10.22.4.2" /> <id nullFlavor="NA" /> <code codeSystem="local" code="WBC" displayName= "WHITE BLOOD CELL" /> <statusCode code="completed" /> < effectiveTime value="824354699929" /> <value unit="k/cumm" xsi:type="PQ " value="6.9" /> <referenceRange> <observationRange> <text>5.0-10.0</text> </observationRange> </ referenceRange> </observation> </component> <component> <observation moodCode="EVN" classCode="OBS"> <templateId root= "06.08.840.1.366705.10.20.22.4.2" /> <id nullFlavor="NA" /> < code codeSystem="local" code="HGBT" displayName="HEMOGLOBIN" /> < statusCode code="completed" /> <effectiveTime value="415497740585" /> <value unit="gm/dL" xsi:type="PQ" value="11.7" /> < interpretationCode codeSystem="local" code="*" /> <referenceRange> <observationRange> <text>12.0-16.0</text> </ observationRange> </referenceRange> </observation> </ component> <component> <observation moodCode="EVN" classCode="OBS"> <templateId root="06.08.840.1.938259.10..22.4.2" /> <id nullFlavor="NA" /> <code codeSystem="local" code="HCTT" displayName= "HEMATOCRIT" /> <statusCode code="completed" /> < effectiveTime value="526838011778" /> <value unit="%" xsi:type="PQ " value="35.5" /> <interpretationCode codeSystem="local" code="*" /> <referenceRange> <observationRange> <text>37.0- 47.0</text> </observationRange> </referenceRange> </ observation> </component> <component> <observation moodCode= "EVN" classCode="OBS"> <templateId root="06.08.840.1.758027.10.20.22.4.2 " /> <id nullFlavor="NA" /> <code codeSystem="local" code= "PLTT" displayName="PLATELET COUNT" /> <statusCode code="completed" /> <effectiveTime value="603776269964" /> <value unit="k/cumm" xsi:type="PQ" value="321" /> <referenceRange> < observationRange> <text>150-450</text> </ observationRange> </referenceRange> </observation> </ component> </organizer> </entry> <entry> <organizer moodCode="EVN" classCode="BATTERY"> <templateId root="16.840.1.865866.10...4.1" /> <id nullFlavor="NA" /> <code codeSystem="local" code="METAB" displayName="METABOLIC PANEL, BASIC" /> <statusCode code="completed" /> <component> <observation moodCode="EVN" classCode="OBS"> < templateId root="06.08.840.1.958168.10..22.4.2" /> <id nullFlavor="NA " /> <code codeSystem="local" code="K" displayName="POTASSIUM" /> <statusCode code="completed" /> <effectiveTime value="517835057374 " /> <value unit="mmol/L" xsi:type="PQ" value="3.7" /> < referenceRange> <observationRange> <text>3.5-5.3</text> </observationRange> </referenceRange> </observation > </component> <component> <observation moodCode="EVN" classCode="OBS"> <templateId root="06.08.840.1.823790.10..22.4.2" /> <id nullFlavor="NA" /> <code codeSystem="local" code="eGFR" displayName="EST GFR (MDRD)" /> <statusCode code="completed" /> <effectiveTime value="" /> <value unit="mL/min" xsi:type ="PQ" value="> 60" /> <referenceRange> <observationRange > <text>> 59</text> </observationRange> </ referenceRange> </observation> </component> <component> <observation moodCode="EVN" classCode="OBS"> <templateId root= "216.840.1.826314.10..22.4.2" /> <id nullFlavor="NA" /> < code codeSystem="local" code="GAP" displayName="ANION GAP" /> < statusCode code="completed" /> <effectiveTime value="" /> <value unit="mmol/L" xsi:type="PQ" value="11" /> < referenceRange> <observationRange> <text>5-15</text> </observationRange> </referenceRange> </observation> </component> <component> <observation moodCode="EVN" classCode= "OBS"> <templateId root="216.840.1.460439.10...4.2" /> < id nullFlavor="NA" /> <code codeSystem="local" code="eCrCl" displayName ="EST CrCl (CG)" /> <statusCode code="completed" /> < effectiveTime value="" /> <value unit="mL/min" xsi:type="PQ " value="> 60" /> <referenceRange> <observationRange> <text>> 59</text> </observationRange> </ referenceRange> </observation> </component> <component> <observation moodCode="EVN" classCode="OBS"> <templateId root= "216.840.1.338416.10.20.22.4.2" /> <id nullFlavor="NA" /> < code codeSystem="local" code="GLU" displayName="GLUCOSE" /> < statusCode code="completed" /> <effectiveTime value="" /> <value unit="mg/dL" xsi:type="PQ" value="80" /> < referenceRange> <observationRange> <text>70-99</text> </observationRange> </referenceRange> </observation> </component> <component> <observation moodCode="EVN" classCode= "OBS"> <templateId root="216.840.1.501541.10..22.4.2" /> < id nullFlavor="NA" /> <code codeSystem="local" code="CA" displayName= "CALCIUM" /> <statusCode code="completed" /> <effectiveTime value="577797886424" /> <value unit="mg/dL" xsi:type="PQ" value="9.1" / > <referenceRange> <observationRange> <text>8.5 -10.1</text> </observationRange> </referenceRange> </ observation> </component> <component> <observation moodCode= "EVN" classCode="OBS"> <templateId root="16.840.1.546003.10..22.4.2 " /> <id nullFlavor="NA" /> <code codeSystem="local" code="BUN " displayName="BLOOD UREA NITROGEN" /> <statusCode code="completed" /> <effectiveTime value="" /> <value unit="mg/dL" xsi:type="PQ" value="19" /> <referenceRange> < observationRange> <text>7-20</text> </observationRange> </referenceRange> </observation> </component> < component> <observation moodCode="EVN" classCode="OBS"> < templateId root="16.840.1.063136.02.09.22.4.2" /> <id nullFlavor="NA " /> <code codeSystem="local" code="CREAT" displayName="CREATININE" /> <statusCode code="completed" /> <effectiveTime value= "" /> <value unit="mg/dL" xsi:type="PQ" value="0.9" /> <referenceRange> <observationRange> <text>0.6-1.0< /text> </observationRange> </referenceRange> </ observation> </component> <component> <observation moodCode= "EVN" classCode="OBS"> <templateId root="2.16.840.1.592484.02.09.22.4.2 " /> <id nullFlavor="NA" /> <code codeSystem="local" code="NA " displayName="SODIUM" /> <statusCode code="completed" /> < effectiveTime value="" /> <value unit="mmol/L" xsi:type="PQ " value="134" /> <interpretationCode codeSystem="local" code="*" /> <referenceRange> <observationRange> <text>135-148 </text> </observationRange> </referenceRange> </ observation> </component> <component> <observation moodCode= "EVN" classCode="OBS"> <templateId root="216.840.1.963282.02.09.22.4.2 " /> <id nullFlavor="NA" /> <code codeSystem="local" code="CL " displayName="CHLORIDE" /> <statusCode code="completed" /> < effectiveTime value="" /> <value unit="mmol/L" xsi:type="PQ " value="100" /> <referenceRange> <observationRange> <text>98-110</text> </observationRange> </ referenceRange> </observation> </component> <component> <observation moodCode="EVN" classCode="OBS"> <templateId root= "216.840.1.768174.10..22.4.2" /> <id nullFlavor="NA" /> < code codeSystem="local" code="CO2" displayName="CARBON DIOXIDE" /> < statusCode code="completed" /> <effectiveTime value="261636973315" /> <value unit="mmol/L" xsi:type="PQ" value="23" /> < referenceRange> <observationRange> <text>21-32</text> </observationRange> </referenceRange> </observation> </component> </organizer> </entry> <entry> <organizer moodCode="EVN " classCode="BATTERY"> <templateId root="216.840.1.031636.10..22.4.1" / > <id nullFlavor="NA" /> <code codeSystem="local" code="UA" displayName="URINALYSIS, ROUTINE" /> <statusCode code="completed" /> < component> <observation moodCode="EVN" classCode="OBS"> < templateId root="216.840.1.263107.10..22.4.2" /> <id nullFlavor="NA " /> <code codeSystem="local" code="LEUESU" displayName="UA LEUKOCYTE ESTERASE DIPSTICK" /> <statusCode code="completed" /> < effectiveTime value="935390890791" /> <value unit="" xsi:type="PQ" value="TRACE" /> <referenceRange> <observationRange> <text>NEGATIVE</text> </observationRange> </ referenceRange> </observation> </component> <component> <observation moodCode="EVN" classCode="OBS"> <templateId root= "216.840.1.903242.02.09.22.4.2" /> <id nullFlavor="NA" /> < code codeSystem="local" code="NITRIU" displayName="UA NITRITE DIPSTICK" /> <statusCode code="completed" /> <effectiveTime value="075690743681 " /> <value unit="" xsi:type="PQ" value="NEGATIVE" /> < referenceRange> <observationRange> <text>NEGATIVE</text > </observationRange> </referenceRange> </observation > </component> <component> <observation moodCode="EVN" classCode="OBS"> <templateId root="16.840.1.921058.02.09.224.2" /> <id nullFlavor="NA" /> <code codeSystem="local" code="PROTEIU " displayName="UA PROTEIN DIPSTICK" /> <statusCode code="completed" /> <effectiveTime value="805390146474" /> <value unit="" xsi: type="PQ" value="1+" /> <interpretationCode codeSystem="local" code="* " /> <referenceRange> <observationRange> <text> NEGATIVE</text> </observationRange> </referenceRange> </observation> </component> <component> <observation moodCode ="EVN" classCode="OBS"> <templateId root= "16.840.1.677988.02.09.224.2" /> <id nullFlavor="NA" /> < code codeSystem="local" code="DGLUU" displayName="UA GLUCOSE DIPSTICK" /> <statusCode code="completed" /> <effectiveTime value="592273170117 " /> <value unit="" xsi:type="PQ" value="NEGATIVE" /> < referenceRange> <observationRange> <text>NEGATIVE</text > </observationRange> </referenceRange> </observation > </component> <component> <observation moodCode="EVN" classCode="OBS"> <templateId root="216.840.1.061601.10..4.2" /> <id nullFlavor="NA" /> <code codeSystem="local" code="KETONU" displayName="UA KETONE DIPSTICK" /> <statusCode code="completed" /> <effectiveTime value="960435756119" /> <value unit="" xsi:type= "PQ" value="NEGATIVE" /> <referenceRange> <observationRange > <text>NEGATIVE</text> </observationRange> </ referenceRange> </observation> </component> <component> <observation moodCode="EVN" classCode="OBS"> <templateId root= "216.840.1.929961.02.09.22.4.2" /> <id nullFlavor="NA" /> < code codeSystem="local" code="UROBILU" displayName="UA UROBILINOGEN DIPSTICK" / > <statusCode code="completed" /> <effectiveTime value= "031734126096" /> <value unit="" xsi:type="PQ" value="NORMAL" /> <referenceRange> <observationRange> <text>NORMAL</ text> </observationRange> </referenceRange> </ observation> </component> <component> <observation moodCode= "EVN" classCode="OBS"> <templateId root="216.840.1.497267.10.22.4.2 " /> <id nullFlavor="NA" /> <code codeSystem="local" code= "BILU" displayName="UA BILIRUBIN DIPSTICK" /> <statusCode code= "completed" /> <effectiveTime value="067896988930" /> <value unit="" xsi:type="PQ" value="1+" /> <interpretationCode codeSystem= "local" code="*" /> <referenceRange> <observationRange> <text>NEGATIVE</text> </observationRange> </ referenceRange> </observation> </component> <component> <observation moodCode="EVN" classCode="OBS"> <templateId root= "16.840.1.598424.10..22.4.2" /> <id nullFlavor="NA" /> < code codeSystem="local" code="SPENCER" displayName="UA BLOOD DIPSTICK" /> < statusCode code="completed" /> <effectiveTime value="972952297776" /> <value unit="" xsi:type="PQ" value="1+" /> < interpretationCode codeSystem="local" code="*" /> <referenceRange> <observationRange> <text>NEGATIVE</text> </ observationRange> </referenceRange> </observation> </ component> <component> <observation moodCode="EVN" classCode="OBS"> <templateId root="06.08.840.1.916569.10..4.2" /> <id nullFlavor="NA" /> <code codeSystem="local" code="SPGRU" displayName= "UA SPECIFIC GRAVITY" /> <statusCode code="completed" /> < effectiveTime value="147897560493" /> <value unit="" xsi:type="PQ" value="1.020" /> <referenceRange> <observationRange> <text>1.015-1.025</text> </observationRange> </ referenceRange> </observation> </component> <component> <observation moodCode="EVN" classCode="OBS"> <templateId root= "16.840.1.894131.10.20.22.4.2" /> <id nullFlavor="NA" /> < code codeSystem="local" code="FEROZ" displayName="UR PH" /> <statusCode code="completed" /> <effectiveTime value="333716421559" /> < value unit="" xsi:type="PQ" value="5.0" /> <referenceRange> <observationRange> <text>5.0-7.0</text> </ observationRange> </referenceRange> </observation> </ component> </organizer> </entry> <entry> <organizer moodCode="EVN" classCode="BATTERY"> <templateId root="16.840.1.050672.10..22.4.1" /> <id nullFlavor="NA" /> <code codeSystem="local" code="UAMICRO" displayName="UA MICROSCOPIC" /> <statusCode code="completed" /> < component> <observation moodCode="EVN" classCode="OBS"> < templateId root="06.08.840.1.473299.10...4.2" /> <id nullFlavor="NA " /> <code codeSystem="local" code="BACU" displayName="UA BACTERIA" /> <statusCode code="completed" /> <effectiveTime value= "337974588181" /> <value unit="" xsi:type="PQ" value="2+" /> < interpretationCode codeSystem="local" code="*" /> <referenceRange> <observationRange> <text>NEGATIVE</text> </ observationRange> </referenceRange> </observation> </ component> <component> <observation moodCode="EVN" classCode="OBS"> <templateId root="06.08.840.1.899839.22.4.2" /> <id nullFlavor="NA" /> <code codeSystem="local" code="EPIU" displayName=" UA EPITHELIAL CELLS" /> <statusCode code="completed" /> < effectiveTime value="541841492255" /> <value unit="epi/hpf" xsi:type= "PQ" value="3+" /> <interpretationCode codeSystem="local" code="*" /> <referenceRange> <observationRange> <text>0 - 1 +</text> </observationRange> </referenceRange> </ observation> </component> <component> <observation moodCode= "EVN" classCode="OBS"> <templateId root="16.840.1.591635.10..22.4.2 " /> <id nullFlavor="NA" /> <code codeSystem="local" code= "MUCUSU" displayName="UA MUCUS" /> <statusCode code="completed" /> <effectiveTime value="604132489265" /> <value unit="" xsi:type= "PQ" value="4+" /> <interpretationCode codeSystem="local" code="*" /> <referenceRange> <observationRange> <text>NEG TO 1+</text> </observationRange> </referenceRange> </ observation> </component> <component> <observation moodCode= "EVN" classCode="OBS"> <templateId root="06.08.840.1.662046.10..22.4.2 " /> <id nullFlavor="NA" /> <code codeSystem="local" code= "RBCU" displayName="UA RBC" /> <statusCode code="completed" /> <effectiveTime value="054381416502" /> <value unit="rbc/hpf" xsi:type ="PQ" value="0-3" /> <referenceRange> <observationRange> <text>0 - 3</text> </observationRange> </ referenceRange> </observation> </component> <component> <observation moodCode="EVN" classCode="OBS"> <templateId root= "840.1.331509.02.09.22.4.2" /> <id nullFlavor="NA" /> < code codeSystem="local" code="UAVOL" displayName="UA VOLUME FOR EXAM" /> <statusCode code="completed" /> <effectiveTime value="206106138682" /> <value unit="mL" xsi:type="PQ" value="12.0" /> < referenceRange> <observationRange> <text>(12mL STD)</ text> </observationRange> </referenceRange> </ observation> </component> <component> <observation moodCode= "EVN" classCode="OBS"> <templateId root="840.1.223475.02.09.22.4.2 " /> <id nullFlavor="NA" /> <code codeSystem="local" code= "WBCU" displayName="UA WBC" /> <statusCode code="completed" /> <effectiveTime value="615210907436" /> <value unit="wbc/hpf" xsi:type ="PQ" value="2-5" /> <referenceRange> <observationRange> <text>0 - 5</text> </observationRange> </ referenceRange> </observation> </component> </organizer> </entry > <entry> <organizer moodCode="EVN" classCode="BATTERY"> <templateId root="06.08.840.1.808484.02.09.22.4.1" /> <id nullFlavor="NA" /> <code codeSystem="local" code="PREGU" displayName="UR TEST" /> < statusCode code="completed" /> <component> <observation moodCode= "EVN" classCode="OBS"> <templateId root="840.1.318497.22.4.2 " /> <id nullFlavor="NA" /> <code codeSystem="local" code= "PREGU" displayName="UR TEST" /> <statusCode code="completed " /> <effectiveTime value="157585506774" /> <value unit="" xsi :type="PQ" value="NEGATIVE" /> <referenceRange> < observationRange> <text>NEGATIVE</text> </ observationRange> </referenceRange> </observation> </ component> </organizer> </entry> <entry> <organizer moodCode="EVN" classCode="BATTERY"> <templateId root="216.840.1.232452.10...4.1" /> <id nullFlavor="NA" /> <code codeSystem="local" code="CBCD" displayName="CBC W/DIFF" /> <statusCode code="completed" /> <component > <observation moodCode="EVN" classCode="OBS"> <templateId root= "216.840.1.045732.10...4.2" /> <id nullFlavor="NA" /> < code codeSystem="local" code="GR#" displayName="GRANULOCYTE #" /> < statusCode code="completed" /> <effectiveTime value="105157895816" /> <value unit="k/cumm" xsi:type="PQ" value="2.9" /> < referenceRange> <observationRange> <text>2.0-9.0</text> </observationRange> </referenceRange> </observation > </component> <component> <observation moodCode="EVN" classCode="OBS"> <templateId root="216.840.1.677127.10..4.2" /> <id nullFlavor="NA" /> <code codeSystem="local" code="GR% " displayName="GRANULOCYTE %" /> <statusCode code="completed" /> <effectiveTime value="241331280748" /> <value unit="%" xsi: type="PQ" value="63" /> <referenceRange> <observationRange> <text>50-75</text> </observationRange> </ referenceRange> </observation> </component> <component> <observation moodCode="EVN" classCode="OBS"> <templateId root= "216.840.1.224713.10..4.2" /> <id nullFlavor="NA" /> < code codeSystem="local" code="LY#" displayName="LYMPHOCYTE #" /> < statusCode code="completed" /> <effectiveTime value="984970541603" /> <value unit="k/cumm" xsi:type="PQ" value="1.4" /> < referenceRange> <observationRange> <text>1.0-4.0</text> </observationRange> </referenceRange> </observation > </component> <component> <observation moodCode="EVN" classCode="OBS"> <templateId root="216.840.1.989505.10.4.2" /> <id nullFlavor="NA" /> <code codeSystem="local" code="LY% " displayName="LYMPHOCYTE %" /> <statusCode code="completed" /> <effectiveTime value="460327143266" /> <value unit="%" xsi: type="PQ" value="30" /> <referenceRange> <observationRange> <text>20-30</text> </observationRange> </ referenceRange> </observation> </component> <component> <observation moodCode="EVN" classCode="OBS"> <templateId root= "216.840.1.024882.22.4.2" /> <id nullFlavor="NA" /> < code codeSystem="local" code="MCH" displayName="MEAN CELL HGB" /> < statusCode code="completed" /> <effectiveTime value="227025426058" /> <value unit="pg" xsi:type="PQ" value="34.1" /> < interpretationCode codeSystem="local" code="*" /> <referenceRange> <observationRange> <text>27.0-33.0</text> </ observationRange> </referenceRange> </observation> </ component> <component> <observation moodCode="EVN" classCode="OBS"> <templateId root="216.840.1.845794.02.09.224.2" /> <id nullFlavor="NA" /> <code codeSystem="local" code="MCHC" displayName= "MEAN CELL HGB CONCENTRATION" /> <statusCode code="completed" /> <effectiveTime value="334586154951" /> <value unit="g/dL" xsi:type= "PQ" value="33.0" /> <referenceRange> <observationRange> <text>32.0-37.0</text> </observationRange> </ referenceRange> </observation> </component> <component> <observation moodCode="EVN" classCode="OBS"> <templateId root= "216.840.1.641447.02.09.224.2" /> <id nullFlavor="NA" /> < code codeSystem="local" code="MCV" displayName="MEAN CELL VOLUME" /> < statusCode code="completed" /> <effectiveTime value="608509180773" /> <value unit="fl" xsi:type="PQ" value="103.4" /> < interpretationCode codeSystem="local" code="*" /> <referenceRange> <observationRange> <text>80.0-100.0</text> </ observationRange> </referenceRange> </observation> </ component> <component> <observation moodCode="EVN" classCode="OBS"> <templateId root="216.840.1.059607.10..4.2" /> <id nullFlavor="NA" /> <code codeSystem="local" code="MO#" displayName= "MONOCYTE #" /> <statusCode code="completed" /> < effectiveTime value="698385200849" /> <value unit="k/cumm" xsi:type="PQ " value="0.3" /> <referenceRange> <observationRange> <text>0.1-1.0</text> </observationRange> </ referenceRange> </observation> </component> <component> <observation moodCode="EVN" classCode="OBS"> <templateId root= "06.08.840.1.218772.02.09.224.2" /> <id nullFlavor="NA" /> < code codeSystem="local" code="MO%" displayName="MONOCYTE %" /> <statusCode code="completed" /> <effectiveTime value="506897161787" /> <value unit="%" xsi:type="PQ" value="6" /> < referenceRange> <observationRange> <text>4-6</text> </observationRange> </referenceRange> </observation> </component> <component> <observation moodCode="EVN" classCode= "OBS"> <templateId root="16.840.1.479583...4.2" /> < id nullFlavor="NA" /> <code codeSystem="local" code="RBC" displayName= "RED BLOOD CELL" /> <statusCode code="completed" /> < effectiveTime value="340580609635" /> <value unit="m/cumm" xsi:type="PQ " value="3.52" /> <interpretationCode codeSystem="local" code="*" /> <referenceRange> <observationRange> <text>4.00- 6.00</text> </observationRange> </referenceRange> </ observation> </component> <component> <observation moodCode= "EVN" classCode="OBS"> <templateId root="216.840.1.521261.10..22.4.2 " /> <id nullFlavor="NA" /> <code codeSystem="local" code="RDW " displayName="RED CELL DISTRIBUTION WIDTH" /> <statusCode code= "completed" /> <effectiveTime value="748200303027" /> <value unit="%" xsi:type="PQ" value="14.2" /> <referenceRange> <observationRange> <text>11.0-15.6</text> </ observationRange> </referenceRange> </observation> </ component> <component> <observation moodCode="EVN" classCode="OBS"> <templateId root="216.840.1.754077.10.20.22.4.2" /> <id nullFlavor="NA" /> <code codeSystem="local" code="WBC" displayName= "WHITE BLOOD CELL" /> <statusCode code="completed" /> < effectiveTime value="632422059993" /> <value unit="k/cumm" xsi:type="PQ " value="4.6" /> <interpretationCode codeSystem="local" code="*" /> <referenceRange> <observationRange> <text>5.0- 10.0</text> </observationRange> </referenceRange> </ observation> </component> <component> <observation moodCode= "EVN" classCode="OBS"> <templateId root="16.840.1.332285.10.20.22.4.2 " /> <id nullFlavor="NA" /> <code codeSystem="local" code= "HGBT" displayName="HEMOGLOBIN" /> <statusCode code="completed" /> <effectiveTime value="230454476172" /> <value unit="gm/dL" xsi: type="PQ" value="12.0" /> <referenceRange> <observationRange > <text>12.0-16.0</text> </observationRange> </ referenceRange> </observation> </component> <component> <observation moodCode="EVN" classCode="OBS"> <templateId root= "06.08.840.1.335731.10.2022.4.2" /> <id nullFlavor="NA" /> < code codeSystem="local" code="HCTT" displayName="HEMATOCRIT" /> < statusCode code="completed" /> <effectiveTime value="887057901531" /> <value unit="%" xsi:type="PQ" value="36.4" /> < interpretationCode codeSystem="local" code="*" /> <referenceRange> <observationRange> <text>37.0-47.0</text> </ observationRange> </referenceRange> </observation> </ component> <component> <observation moodCode="EVN" classCode="OBS"> <templateId root="06.08.840.1.846652.10.20.22.4.2" /> <id nullFlavor="NA" /> <code codeSystem="local" code="PLTT" displayName= "PLATELET COUNT" /> <statusCode code="completed" /> < effectiveTime value="509250032537" /> <value unit="k/cumm" xsi:type="PQ " value="338" /> <referenceRange> <observationRange> <text>150-450</text> </observationRange> </ referenceRange> </observation> </component> </organizer> </entry > <entry> <organizer moodCode="EVN" classCode="BATTERY"> <templateId root="16.840.1.624493.10..22.4.1" /> <id nullFlavor="NA" /> <code codeSystem="local" code="METABC" displayName="METABOLIC PANEL, COMPREHN" /> <statusCode code="completed" /> <component> <observation moodCode= "EVN" classCode="OBS"> <templateId root="06.08.840.1.545614...4.2 " /> <id nullFlavor="NA" /> <code codeSystem="local" code="K" displayName="POTASSIUM" /> <statusCode code="completed" /> < effectiveTime value="089133166900" /> <value unit="mmol/L" xsi:type="PQ " value="3.9" /> <referenceRange> <observationRange> <text>3.5-5.3</text> </observationRange> </ referenceRange> </observation> </component> <component> <observation moodCode="EVN" classCode="OBS"> <templateId root= "06.08.840.1.926773.10.4.2" /> <id nullFlavor="NA" /> < code codeSystem="local" code="eGFR" displayName="EST GFR (MDRD)" /> < statusCode code="completed" /> <effectiveTime value="467601262025" /> <value unit="mL/min" xsi:type="PQ" value="> 60" /> < referenceRange> <observationRange> <text>> 59</text> </observationRange> </referenceRange> </observation > </component> <component> <observation moodCode="EVN" classCode="OBS"> <templateId root="216.840.1.297403.10..4.2" /> <id nullFlavor="NA" /> <code codeSystem="local" code="GAP" displayName="ANION GAP" /> <statusCode code="completed" /> < effectiveTime value="488183252324" /> <value unit="mmol/L" xsi:type="PQ " value="13" /> <referenceRange> <observationRange> <text>5-15</text> </observationRange> </referenceRange > </observation> </component> <component> <observation moodCode="EVN" classCode="OBS"> <templateId root= "216.840.1.785577.02.09.22.4.2" /> <id nullFlavor="NA" /> < code codeSystem="local" code="eCrCl" displayName="EST CrCl (CG)" /> < statusCode code="completed" /> <effectiveTime value="599491950662" /> <value unit="mL/min" xsi:type="PQ" value="> 60" /> < referenceRange> <observationRange> <text>> 59</text> </observationRange> </referenceRange> </observation > </component> <component> <observation moodCode="EVN" classCode="OBS"> <templateId root="16.840.1.539194.10...4.2" /> <id nullFlavor="NA" /> <code codeSystem="local" code="GLU" displayName="GLUCOSE" /> <statusCode code="completed" /> < effectiveTime value="674305384913" /> <value unit="mg/dL" xsi:type="PQ " value="99" /> <referenceRange> <observationRange> <text>70-99</text> </observationRange> </ referenceRange> </observation> </component> <component> <observation moodCode="EVN" classCode="OBS"> <templateId root= "216.840.1.134997.10.20.22.4.2" /> <id nullFlavor="NA" /> < code codeSystem="local" code="CA" displayName="CALCIUM" /> <statusCode code="completed" /> <effectiveTime value="961996676656" /> < value unit="mg/dL" xsi:type="PQ" value="9.1" /> <referenceRange> <observationRange> <text>8.5-10.1</text> </ observationRange> </referenceRange> </observation> </ component> <component> <observation moodCode="EVN" classCode="OBS"> <templateId root="06.08.840.1.987694.10.22.4.2" /> <id nullFlavor="NA" /> <code codeSystem="local" code="BUN" displayName= "BLOOD UREA NITROGEN" /> <statusCode code="completed" /> < effectiveTime value="280921668399" /> <value unit="mg/dL" xsi:type="PQ " value="15" /> <referenceRange> <observationRange> <text>7-20</text> </observationRange> </referenceRange > </observation> </component> <component> <observation moodCode="EVN" classCode="OBS"> <templateId root= "06.08.840.1.380161.102022.4.2" /> <id nullFlavor="NA" /> < code codeSystem="local" code="CREAT" displayName="CREATININE" /> < statusCode code="completed" /> <effectiveTime value="332016614527" /> <value unit="mg/dL" xsi:type="PQ" value="0.7" /> < referenceRange> <observationRange> <text>0.6-1.0</text> </observationRange> </referenceRange> </observation > </component> <component> <observation moodCode="EVN" classCode="OBS"> <templateId root="216.840.1.712317.22.4.2" /> <id nullFlavor="NA" /> <code codeSystem="local" code="NA" displayName="SODIUM" /> <statusCode code="completed" /> < effectiveTime value="732318278761" /> <value unit="mmol/L" xsi:type="PQ " value="142" /> <referenceRange> <observationRange> <text>135-148</text> </observationRange> </ referenceRange> </observation> </component> <component> <observation moodCode="EVN" classCode="OBS"> <templateId root= "06.08.840.1.070796.02.09.22.4.2" /> <id nullFlavor="NA" /> < code codeSystem="local" code="CL" displayName="CHLORIDE" /> < statusCode code="completed" /> <effectiveTime value="814117443056" /> <value unit="mmol/L" xsi:type="PQ" value="104" /> < referenceRange> <observationRange> <text>98-110</text> </observationRange> </referenceRange> </observation> </component> <component> <observation moodCode="EVN" classCode ="OBS"> <templateId root="16.840.1.261679.10.2022.4.2" /> < id nullFlavor="NA" /> <code codeSystem="local" code="AST" displayName= "AST/SGOT" /> <statusCode code="completed" /> <effectiveTime value="186675462494" /> <value unit="Units/L" xsi:type="PQ" value="19" /> <referenceRange> <observationRange> <text>10 -37</text> </observationRange> </referenceRange> </ observation> </component> <component> <observation moodCode= "EVN" classCode="OBS"> <templateId root="216.840.1.390585.10..22.4.2 " /> <id nullFlavor="NA" /> <code codeSystem="local" code="ALT " displayName="ALT/SGPT" /> <statusCode code="completed" /> < effectiveTime value="867291522943" /> <value unit="Units/L" xsi:type= "PQ" value="50" /> <referenceRange> <observationRange> <text>< 66</text> </observationRange> </ referenceRange> </observation> </component> <component> <observation moodCode="EVN" classCode="OBS"> <templateId root= "16.840.1.350571...22.4.2" /> <id nullFlavor="NA" /> < code codeSystem="local" code="CO2" displayName="CARBON DIOXIDE" /> < statusCode code="completed" /> <effectiveTime value="580563342566" /> <value unit="mmol/L" xsi:type="PQ" value="25" /> < referenceRange> <observationRange> <text>21-32</text> </observationRange> </referenceRange> </observation> </component> <component> <observation moodCode="EVN" classCode= "OBS"> <templateId root="06.08.840.1.646046.02.09.22.4.2" /> < id nullFlavor="NA" /> <code codeSystem="local" code="TP" displayName= "TOTAL PROTEIN" /> <statusCode code="completed" /> < effectiveTime value="948796767011" /> <value unit="gm/dL" xsi:type="PQ " value="7.9" /> <referenceRange> <observationRange> <text>6.4-8.2</text> </observationRange> </ referenceRange> </observation> </component> <component> <observation moodCode="EVN" classCode="OBS"> <templateId root= "2.16.840.1.590845.02.09.22.4.2" /> <id nullFlavor="NA" /> < code codeSystem="local" code="ALB" displayName="ALBUMIN" /> < statusCode code="completed" /> <effectiveTime value="178875559902" /> <value unit="gm/dL" xsi:type="PQ" value="4.4" /> < referenceRange> <observationRange> <text>3.4-5.0</text> </observationRange> </referenceRange> </observation > </component> <component> <observation moodCode="EVN" classCode="OBS"> <templateId root="216.840.1.112486.22.4.2" /> <id nullFlavor="NA" /> <code codeSystem="local" code="BILTOT" displayName="BILI TOTAL" /> <statusCode code="completed" /> < effectiveTime value="022600923213" /> <value unit="mg/dL" xsi:type="PQ " value="0.3" /> <referenceRange> <observationRange> <text>0.0-1.0</text> </observationRange> </ referenceRange> </observation> </component> <component> <observation moodCode="EVN" classCode="OBS"> <templateId root= "216.840.1.127874.10..22.4.2" /> <id nullFlavor="NA" /> < code codeSystem="local" code="ALKP" displayName="ALKALINE PHOSPHATASE TOTAL" /> <statusCode code="completed" /> <effectiveTime value= "406309870445" /> <value unit="IU/L" xsi:type="PQ" value="67" /> <referenceRange> <observationRange> <text>45-117</ text> </observationRange> </referenceRange> </ observation> </component> </organizer> </entry> <entry> <organizer moodCode="EVN" classCode="BATTERY"> <templateId root= "216.840.1.410870.10..22.4.1" /> <id nullFlavor="NA" /> <code codeSystem="local" code="LIP" displayName="LIPASE" /> <statusCode code= "completed" /> <component> <observation moodCode="EVN" classCode= "OBS"> <templateId root="2.16.840.1.576863.10.20.22.4.2" /> < id nullFlavor="NA" /> <code codeSystem="local" code="LIP" displayName= "LIPASE" /> <statusCode code="completed" /> <effectiveTime value="946798593001" /> <value unit="Units/L" xsi:type="PQ" value="103 " /> <referenceRange> <observationRange> <text> 73-393</text> </observationRange> </referenceRange> < /observation> </component> </organizer> </entry> <entry> < organizer moodCode="EVN" classCode="BATTERY"> <templateId root= "840.1.575202.10..22.4.1" /> <id nullFlavor="NA" /> <code codeSystem="local" code="CBCD" displayName="CBC W/DIFF" /> <statusCode code ="completed" /> <component> <observation moodCode="EVN" classCode= "OBS"> <templateId root="06.08.840.1.187577.02.09.22.4.2" /> < id nullFlavor="NA" /> <code codeSystem="local" code="EO#" displayName= "EOSINOPHIL #" /> <statusCode code="completed" /> < effectiveTime value="368260465934" /> <value unit="k/cumm" xsi:type="PQ " value="0.1" /> <referenceRange> <observationRange> <text>0.1-0.5</text> </observationRange> </ referenceRange> </observation> </component> <component> <observation moodCode="EVN" classCode="OBS"> <templateId root= "06.08.840.1.410207.02.09.22.4.2" /> <id nullFlavor="NA" /> < code codeSystem="local" code="EO%" displayName="EOSINOPHIL %" /> <statusCode code="completed" /> <effectiveTime value="710098086858" /> <value unit="%" xsi:type="PQ" value="1" /> < interpretationCode codeSystem="local" code="*" /> <referenceRange> <observationRange> <text>2-4</text> </ observationRange> </referenceRange> </observation> </ component> <component> <observation moodCode="EVN" classCode="OBS"> <templateId root="06.08.840.1.341098.02.09.224.2" /> <id nullFlavor="NA" /> <code codeSystem="local" code="GR#" displayName= "GRANULOCYTE #" /> <statusCode code="completed" /> < effectiveTime value="356280227801" /> <value unit="k/cumm" xsi:type="PQ " value="4.7" /> <referenceRange> <observationRange> <text>2.0-9.0</text> </observationRange> </ referenceRange> </observation> </component> <component> <observation moodCode="EVN" classCode="OBS"> <templateId root= "216.840.1.360936.02.09.224.2" /> <id nullFlavor="NA" /> < code codeSystem="local" code="GR%" displayName="GRANULOCYTE %" /> <statusCode code="completed" /> <effectiveTime value=" " /> <value unit="%" xsi:type="PQ" value="64" /> < referenceRange> <observationRange> <text>50-75</text> </observationRange> </referenceRange> </observation> </component> <component> <observation moodCode="EVN" classCode= "OBS"> <templateId root="2.16.840.1.516949.02.09.224.2" /> < id nullFlavor="NA" /> <code codeSystem="local" code="LY#" displayName= "LYMPHOCYTE #" /> <statusCode code="completed" /> < effectiveTime value="" /> <value unit="k/cumm" xsi:type="PQ " value="2.0" /> <referenceRange> <observationRange> <text>1.0-4.0</text> </observationRange> </ referenceRange> </observation> </component> <component> <observation moodCode="EVN" classCode="OBS"> <templateId root= "216.840.1.379180.10.22.4.2" /> <id nullFlavor="NA" /> < code codeSystem="local" code="LY%" displayName="LYMPHOCYTE %" /> <statusCode code="completed" /> <effectiveTime value="418830359235" /> <value unit="%" xsi:type="PQ" value="27" /> < referenceRange> <observationRange> <text>20-30</text> </observationRange> </referenceRange> </observation> </component> <component> <observation moodCode="EVN" classCode= "OBS"> <templateId root="216.840.1.229600.10.4.2" /> < id nullFlavor="NA" /> <code codeSystem="local" code="MCH" displayName= "MEAN CELL HGB" /> <statusCode code="completed" /> < effectiveTime value="197029174494" /> <value unit="pg" xsi:type="PQ" value="35.5" /> <interpretationCode codeSystem="local" code="*" /> <referenceRange> <observationRange> <text>27.0- 33.0</text> </observationRange> </referenceRange> </ observation> </component> <component> <observation moodCode= "EVN" classCode="OBS"> <templateId root="16.840.1.439834.10.22.4.2 " /> <id nullFlavor="NA" /> <code codeSystem="local" code= "MCHC" displayName="MEAN CELL HGB CONCENTRATION" /> <statusCode code= "completed" /> <effectiveTime value="192840924099" /> <value unit="g/dL" xsi:type="PQ" value="34.3" /> <referenceRange> < observationRange> <text>32.0-37.0</text> </ observationRange> </referenceRange> </observation> </ component> <component> <observation moodCode="EVN" classCode="OBS"> <templateId root="16.840.1.136683.10.2022.4.2" /> <id nullFlavor="NA" /> <code codeSystem="local" code="MCV" displayName= "MEAN CELL VOLUME" /> <statusCode code="completed" /> < effectiveTime value="303449797773" /> <value unit="fl" xsi:type="PQ" value="103.4" /> <interpretationCode codeSystem="local" code="*" /> <referenceRange> <observationRange> <text>80.0- 100.0</text> </observationRange> </referenceRange> </ observation> </component> <component> <observation moodCode= "EVN" classCode="OBS"> <templateId root="840.1.409820.02.09.22.4.2 " /> <id nullFlavor="NA" /> <code codeSystem="local" code="MO# " displayName="MONOCYTE #" /> <statusCode code="completed" /> <effectiveTime value="314043222763" /> <value unit="k/cumm" xsi:type= "PQ" value="0.6" /> <referenceRange> <observationRange> <text>0.1-1.0</text> </observationRange> </ referenceRange> </observation> </component> <component> <observation moodCode="EVN" classCode="OBS"> <templateId root= "06.08.840.1.686483.10.20.22.4.2" /> <id nullFlavor="NA" /> < code codeSystem="local" code="MO%" displayName="MONOCYTE %" /> <statusCode code="completed" /> <effectiveTime value="442194230463" /> <value unit="%" xsi:type="PQ" value="8" /> < interpretationCode codeSystem="local" code="*" /> <referenceRange> <observationRange> <text>4-6</text> </ observationRange> </referenceRange> </observation> </ component> <component> <observation moodCode="EVN" classCode="OBS"> <templateId root="2.16.840.1.614359.10..22.4.2" /> <id nullFlavor="NA" /> <code codeSystem="local" code="RBC" displayName=" RED BLOOD CELL" /> <statusCode code="completed" /> < effectiveTime value="067513348035" /> <value unit="m/cumm" xsi:type="PQ " value="3.52" /> <interpretationCode codeSystem="local" code="*" /> <referenceRange> <observationRange> <text>4.00- 6.00</text> </observationRange> </referenceRange> </ observation> </component> <component> <observation moodCode= "EVN" classCode="OBS"> <templateId root="216.840.1.336150.10.2022.4.2 " /> <id nullFlavor="NA" /> <code codeSystem="local" code="RDW " displayName="RED CELL DISTRIBUTION WIDTH" /> <statusCode code= "completed" /> <effectiveTime value="903480987148" /> <value unit="%" xsi:type="PQ" value="13.4" /> <referenceRange> <observationRange> <text>11.0-15.6</text> </ observationRange> </referenceRange> </observation> </ component> <component> <observation moodCode="EVN" classCode="OBS"> <templateId root="216.840.1.923470.1022.4.2" /> <id nullFlavor="NA" /> <code codeSystem="local" code="WBC" displayName= "WHITE BLOOD CELL" /> <statusCode code="completed" /> < effectiveTime value="422966436957" /> <value unit="k/cumm" xsi:type="PQ " value="7.3" /> <referenceRange> <observationRange> <text>5.0-10.0</text> </observationRange> </ referenceRange> </observation> </component> <component> <observation moodCode="EVN" classCode="OBS"> <templateId root= "06.08.840.1.790375.02.09.22.4.2" /> <id nullFlavor="NA" /> < code codeSystem="local" code="HGBT" displayName="HEMOGLOBIN" /> < statusCode code="completed" /> <effectiveTime value="024389026899" /> <value unit="gm/dL" xsi:type="PQ" value="12.5" /> < referenceRange> <observationRange> <text>12.0-16.0</text > </observationRange> </referenceRange> </observation > </component> <component> <observation moodCode="EVN" classCode="OBS"> <templateId root="16.840.1.361593..22.4.2" /> <id nullFlavor="NA" /> <code codeSystem="local" code="HCTT" displayName="HEMATOCRIT" /> <statusCode code="completed" /> < effectiveTime value="" /> <value unit="%" xsi:type="PQ " value="36.4" /> <interpretationCode codeSystem="local" code="*" /> <referenceRange> <observationRange> <text>37.0- 47.0</text> </observationRange> </referenceRange> </ observation> </component> <component> <observation moodCode= "EVN" classCode="OBS"> <templateId root="840.1.979648.1022.4.2 " /> <id nullFlavor="NA" /> <code codeSystem="local" code= "PLTT" displayName="PLATELET COUNT" /> <statusCode code="completed" /> <effectiveTime value="256644992575" /> <value unit="k/cumm" xsi:type="PQ" value="264" /> <referenceRange> < observationRange> <text>150-450</text> </ observationRange> </referenceRange> </observation> </ component> </organizer> </entry> <entry> <organizer moodCode="EVN" classCode="BATTERY"> <templateId root="840.1.561089.22.4.1" /> <id nullFlavor="NA" /> <code codeSystem="local" code="METABC" displayName="METABOLIC PANEL, COMPREHN" /> <statusCode code="completed" /> <component> <observation moodCode="EVN" classCode="OBS"> < templateId root="840.1.335183.1022.4.2" /> <id nullFlavor="NA " /> <code codeSystem="local" code="K" displayName="POTASSIUM" /> <statusCode code="completed" /> <effectiveTime value="872435636452 " /> <value unit="mmol/L" xsi:type="PQ" value="3.8" /> < referenceRange> <observationRange> <text>3.5-5.3</text> </observationRange> </referenceRange> </observation > </component> <component> <observation moodCode="EVN" classCode="OBS"> <templateId root="06.08.840.1.216131.10...4.2" /> <id nullFlavor="NA" /> <code codeSystem="local" code="eGFR" displayName="EST GFR (MDRD)" /> <statusCode code="completed" /> <effectiveTime value="660709202969" /> <value unit="mL/min" xsi:type ="PQ" value="> 60" /> <referenceRange> <observationRange > <text>> 59</text> </observationRange> </ referenceRange> </observation> </component> <component> <observation moodCode="EVN" classCode="OBS"> <templateId root= "06.08.840.1.576789.10..4.2" /> <id nullFlavor="NA" /> < code codeSystem="local" code="GAP" displayName="ANION GAP" /> < statusCode code="completed" /> <effectiveTime value="749162302393" /> <value unit="mmol/L" xsi:type="PQ" value="12" /> < referenceRange> <observationRange> <text>5-15</text> </observationRange> </referenceRange> </observation> </component> <component> <observation moodCode="EVN" classCode= "OBS"> <templateId root="06.08.840.1.730164.10.20.22.4.2" /> < id nullFlavor="NA" /> <code codeSystem="local" code="eCrCl" displayName ="EST CrCl (CG)" /> <statusCode code="completed" /> < effectiveTime value="689034316406" /> <value unit="mL/min" xsi:type="PQ " value="> 60" /> <referenceRange> <observationRange> <text>> 59</text> </observationRange> </ referenceRange> </observation> </component> <component> <observation moodCode="EVN" classCode="OBS"> <templateId root= "06.08.840.1.265944.22.4.2" /> <id nullFlavor="NA" /> < code codeSystem="local" code="GLU" displayName="GLUCOSE" /> < statusCode code="completed" /> <effectiveTime value="" /> <value unit="mg/dL" xsi:type="PQ" value="97" /> < referenceRange> <observationRange> <text>70-99</text> </observationRange> </referenceRange> </observation> </component> <component> <observation moodCode="EVN" classCode= "OBS"> <templateId root="06.08.840.1.516229.22.4.2" /> < id nullFlavor="NA" /> <code codeSystem="local" code="CA" displayName= "CALCIUM" /> <statusCode code="completed" /> <effectiveTime value="" /> <value unit="mg/dL" xsi:type="PQ" value="9.6" / > <referenceRange> <observationRange> <text>8.5 -10.1</text> </observationRange> </referenceRange> </ observation> </component> <component> <observation moodCode= "EVN" classCode="OBS"> <templateId root="06.08.840.1.158580..2022.4.2 " /> <id nullFlavor="NA" /> <code codeSystem="local" code="BUN " displayName="BLOOD UREA NITROGEN" /> <statusCode code="completed" /> <effectiveTime value="675814874981" /> <value unit="mg/dL" xsi:type="PQ" value="13" /> <referenceRange> < observationRange> <text>7-20</text> </observationRange> </referenceRange> </observation> </component> < component> <observation moodCode="EVN" classCode="OBS"> < templateId root="16.840.1.499463.10..22.4.2" /> <id nullFlavor="NA " /> <code codeSystem="local" code="CREAT" displayName="CREATININE" /> <statusCode code="completed" /> <effectiveTime value= "677422127651" /> <value unit="mg/dL" xsi:type="PQ" value="0.8" /> <referenceRange> <observationRange> <text>0.6-1.0< /text> </observationRange> </referenceRange> </ observation> </component> <component> <observation moodCode= "EVN" classCode="OBS"> <templateId root="216.840.1.171031.10.20.22.4.2 " /> <id nullFlavor="NA" /> <code codeSystem="local" code="NA " displayName="SODIUM" /> <statusCode code="completed" /> < effectiveTime value="431374374378" /> <value unit="mmol/L" xsi:type="PQ " value="141" /> <referenceRange> <observationRange> <text>135-148</text> </observationRange> </ referenceRange> </observation> </component> <component> <observation moodCode="EVN" classCode="OBS"> <templateId root= "06.08.840.1.006056.02.09.22.4.2" /> <id nullFlavor="NA" /> < code codeSystem="local" code="CL" displayName="CHLORIDE" /> < statusCode code="completed" /> <effectiveTime value="662989358395" /> <value unit="mmol/L" xsi:type="PQ" value="104" /> < referenceRange> <observationRange> <text>98-110</text> </observationRange> </referenceRange> </observation> </component> <component> <observation moodCode="EVN" classCode ="OBS"> <templateId root="216.840.1.740802.02.09.22.4.2" /> < id nullFlavor="NA" /> <code codeSystem="local" code="AST" displayName= "AST/SGOT" /> <statusCode code="completed" /> <effectiveTime value="543558242810" /> <value unit="Units/L" xsi:type="PQ" value="17" /> <referenceRange> <observationRange> <text>10 -37</text> </observationRange> </referenceRange> </ observation> </component> <component> <observation moodCode= "EVN" classCode="OBS"> <templateId root="216.840.1.292141.02.09.22.4.2 " /> <id nullFlavor="NA" /> <code codeSystem="local" code="ALT " displayName="ALT/SGPT" /> <statusCode code="completed" /> < effectiveTime value="827305870538" /> <value unit="Units/L" xsi:type= "PQ" value="21" /> <referenceRange> <observationRange> <text>< 66</text> </observationRange> </ referenceRange> </observation> </component> <component> <observation moodCode="EVN" classCode="OBS"> <templateId root= "06.08.840.1.012918.10.20.22.4.2" /> <id nullFlavor="NA" /> < code codeSystem="local" code="CO2" displayName="CARBON DIOXIDE" /> < statusCode code="completed" /> <effectiveTime value="" /> <value unit="mmol/L" xsi:type="PQ" value="25" /> < referenceRange> <observationRange> <text>21-32</text> </observationRange> </referenceRange> </observation> </component> <component> <observation moodCode="EVN" classCode= "OBS"> <templateId root="06.08.840.1.847245..22.4.2" /> < id nullFlavor="NA" /> <code codeSystem="local" code="TP" displayName= "TOTAL PROTEIN" /> <statusCode code="completed" /> < effectiveTime value="" /> <value unit="gm/dL" xsi:type="PQ " value="8.0" /> <referenceRange> <observationRange> <text>6.4-8.2</text> </observationRange> </ referenceRange> </observation> </component> <component> <observation moodCode="EVN" classCode="OBS"> <templateId root= "06.08.840.1.901870.10.20.22.4.2" /> <id nullFlavor="NA" /> < code codeSystem="local" code="ALB" displayName="ALBUMIN" /> < statusCode code="completed" /> <effectiveTime value="" /> <value unit="gm/dL" xsi:type="PQ" value="4.2" /> < referenceRange> <observationRange> <text>3.4-5.0</text> </observationRange> </referenceRange> </observation > </component> <component> <observation moodCode="EVN" classCode="OBS"> <templateId root="16.840.1.931618.10.4.2" /> <id nullFlavor="NA" /> <code codeSystem="local" code="BILTOT" displayName="BILI TOTAL" /> <statusCode code="completed" /> < effectiveTime value="772332993886" /> <value unit="mg/dL" xsi:type="PQ " value="0.2" /> <referenceRange> <observationRange> <text>0.0-1.0</text> </observationRange> </ referenceRange> </observation> </component> <component> <observation moodCode="EVN" classCode="OBS"> <templateId root= "06.08.840.1.895816.02.09.22.4.2" /> <id nullFlavor="NA" /> < code codeSystem="local" code="ALKP" displayName="ALKALINE PHOSPHATASE TOTAL" /> <statusCode code="completed" /> <effectiveTime value= "063704668509" /> <value unit="IU/L" xsi:type="PQ" value="64" /> <referenceRange> <observationRange> <text>45-117</ text> </observationRange> </referenceRange> </ observation> </component> </organizer> </entry> <entry> <organizer moodCode="EVN" classCode="BATTERY"> <templateId root= "16.840.1.535230...22.4.1" /> <id nullFlavor="NA" /> <code codeSystem="local" code="LIP" displayName="LIPASE" /> <statusCode code= "completed" /> <component> <observation moodCode="EVN" classCode= "OBS"> <templateId root="06.08.840.1.788523.10..22.4.2" /> < id nullFlavor="NA" /> <code codeSystem="local" code="LIP" displayName= "LIPASE" /> <statusCode code="completed" /> <effectiveTime value="015244335310" /> <value unit="Units/L" xsi:type="PQ" value="123 " /> <referenceRange> <observationRange> <text> 73-393</text> </observationRange> </referenceRange> < /observation> </component> </organizer> </entry> <entry> < organizer moodCode="EVN" classCode="BATTERY"> <templateId root= "06.08.840.1.462240.10..22.4.1" /> <id nullFlavor="NA" /> <code codeSystem="local" code="UA" displayName="URINALYSIS, ROUTINE" /> < statusCode code="completed" /> <component> <observation moodCode= "EVN" classCode="OBS"> <templateId root="16.840.1.361198.10..22.4.2 " /> <id nullFlavor="NA" /> <code codeSystem="local" code= "LEUESU" displayName="UA LEUKOCYTE ESTERASE DIPSTICK" /> <statusCode code="completed" /> <effectiveTime value="664536289459" /> < value unit="" xsi:type="PQ" value="NEGATIVE" /> <referenceRange> <observationRange> <text>NEGATIVE</text> </ observationRange> </referenceRange> </observation> </ component> <component> <observation moodCode="EVN" classCode="OBS"> <templateId root="16.840.1.093511.10...4.2" /> <id nullFlavor="NA" /> <code codeSystem="local" code="NITRIU" displayName= "UA NITRITE DIPSTICK" /> <statusCode code="completed" /> < effectiveTime value="284776738488" /> <value unit="" xsi:type="PQ" value="NEGATIVE" /> <referenceRange> <observationRange> <text>NEGATIVE</text> </observationRange> </ referenceRange> </observation> </component> <component> <observation moodCode="EVN" classCode="OBS"> <templateId root= "840.1.722311.10..4.2" /> <id nullFlavor="NA" /> < code codeSystem="local" code="PROTEIU" displayName="UA PROTEIN DIPSTICK" /> <statusCode code="completed" /> <effectiveTime value= "564671680676" /> <value unit="" xsi:type="PQ" value="NEGATIVE" /> <referenceRange> <observationRange> <text>NEGATIVE </text> </observationRange> </referenceRange> </ observation> </component> <component> <observation moodCode= "EVN" classCode="OBS"> <templateId root="840.1.901709.10...4.2 " /> <id nullFlavor="NA" /> <code codeSystem="local" code= "DGLUU" displayName="UA GLUCOSE DIPSTICK" /> <statusCode code= "completed" /> <effectiveTime value="787062200478" /> <value unit="" xsi:type="PQ" value="NEGATIVE" /> <referenceRange> < observationRange> <text>NEGATIVE</text> </ observationRange> </referenceRange> </observation> </ component> <component> <observation moodCode="EVN" classCode="OBS"> <templateId root="06.08.830.1.201846.10..22.4.2" /> <id nullFlavor="NA" /> <code codeSystem="local" code="KETONU" displayName= "UA KETONE DIPSTICK" /> <statusCode code="completed" /> < effectiveTime value="528617514517" /> <value unit="" xsi:type="PQ" value="NEGATIVE" /> <referenceRange> <observationRange> <text>NEGATIVE</text> </observationRange> </ referenceRange> </observation> </component> <component> <observation moodCode="EVN" classCode="OBS"> <templateId root= "2.16.840.1.552215.02.09.22.4.2" /> <id nullFlavor="NA" /> < code codeSystem="local" code="UROBILU" displayName="UA UROBILINOGEN DIPSTICK" / > <statusCode code="completed" /> <effectiveTime value= "923645291148" /> <value unit="" xsi:type="PQ" value="NORMAL" /> <referenceRange> <observationRange> <text>NORMAL</ text> </observationRange> </referenceRange> </ observation> </component> <component> <observation moodCode= "EVN" classCode="OBS"> <templateId root="216.840.1.927606.02.09.22.4.2 " /> <id nullFlavor="NA" /> <code codeSystem="local" code= "BILU" displayName="UA BILIRUBIN DIPSTICK" /> <statusCode code= "completed" /> <effectiveTime value="376764777492" /> <value unit="" xsi:type="PQ" value="NEGATIVE" /> <referenceRange> < observationRange> <text>NEGATIVE</text> </ observationRange> </referenceRange> </observation> </ component> <component> <observation moodCode="EVN" classCode="OBS"> <templateId root="216.840.1.590161.10..22.4.2" /> <id nullFlavor="NA" /> <code codeSystem="local" code="SPENCER" displayName="UA BLOOD DIPSTICK" /> <statusCode code="completed" /> < effectiveTime value="" /> <value unit="" xsi:type="PQ" value="NEGATIVE" /> <referenceRange> <observationRange> <text>NEGATIVE</text> </observationRange> </ referenceRange> </observation> </component> <component> <observation moodCode="EVN" classCode="OBS"> <templateId root= "16.840.1.675114.10..4.2" /> <id nullFlavor="NA" /> < code codeSystem="local" code="SPGRU" displayName="UA SPECIFIC GRAVITY" /> <statusCode code="completed" /> <effectiveTime value=" " /> <value unit="" xsi:type="PQ" value="1.015" /> < referenceRange> <observationRange> <text>1.015-1.025</ text> </observationRange> </referenceRange> </ observation> </component> <component> <observation moodCode= "EVN" classCode="OBS"> <templateId root="16.840.1.964527.10.2022.4.2 " /> <id nullFlavor="NA" /> <code codeSystem="local" code="FEROZ " displayName="UR PH" /> <statusCode code="completed" /> < effectiveTime value="" /> <value unit="" xsi:type="PQ" value="6.0" /> <referenceRange> <observationRange> <text>5.0-7.0</text> </observationRange> </ referenceRange> </observation> </component> </organizer> </entry > <entry> <organizer moodCode="EVN" classCode="BATTERY"> <templateId root="06.08.840.1.201728.10.4.1" /> <id nullFlavor="NA" /> <code codeSystem="local" code="PREGU" displayName="UR TEST" /> < statusCode code="completed" /> <component> <observation moodCode= "EVN" classCode="OBS"> <templateId root="840.1.184804.02.09.22.4.2 " /> <id nullFlavor="NA" /> <code codeSystem="local" code= "PREGU" displayName="UR TEST" /> <statusCode code="completed " /> <effectiveTime value="779813261041" /> <value unit="" xsi :type="PQ" value="NEGATIVE" /> <referenceRange> < observationRange> <text>NEGATIVE</text> </ observationRange> </referenceRange> </observation> </ component> </organizer> </entry> <entry> <organizer moodCode="EVN" classCode="BATTERY"> <templateId root="840.1.239641.02.09.22.4.1" /> <id nullFlavor="NA" /> <code codeSystem="local" code="CBCD" displayName="CBC W/DIFF" /> <statusCode code="completed" /> <component > <observation moodCode="EVN" classCode="OBS"> <templateId root= "06.08.840.1.583453.02.09.22.4.2" /> <id nullFlavor="NA" /> < code codeSystem="local" code="GR#" displayName="GRANULOCYTE #" /> < statusCode code="completed" /> <effectiveTime value="044712738088" /> <value unit="k/cumm" xsi:type="PQ" value="8.2" /> < referenceRange> <observationRange> <text>2.0-9.0</text> </observationRange> </referenceRange> </observation > </component> <component> <observation moodCode="EVN" classCode="OBS"> <templateId root="16.840.1.215594.10.20.22.4.2" /> <id nullFlavor="NA" /> <code codeSystem="local" code="GR% " displayName="GRANULOCYTE %" /> <statusCode code="completed" /> <effectiveTime value="591653089021" /> <value unit="%" xsi: type="PQ" value="76" /> <interpretationCode codeSystem="local" code="* " /> <referenceRange> <observationRange> <text> 50-75</text> </observationRange> </referenceRange> </ observation> </component> <component> <observation moodCode= "EVN" classCode="OBS"> <templateId root="16.840.1.789946.10.20.22.4.2 " /> <id nullFlavor="NA" /> <code codeSystem="local" code="LY# " displayName="LYMPHOCYTE #" /> <statusCode code="completed" /> <effectiveTime value="731053383857" /> <value unit="k/cumm" xsi:type ="PQ" value="2.2" /> <referenceRange> <observationRange> <text>1.0-4.0</text> </observationRange> </ referenceRange> </observation> </component> <component> <observation moodCode="EVN" classCode="OBS"> <templateId root= "216.840.1.066464.10.20.22.4.2" /> <id nullFlavor="NA" /> < code codeSystem="local" code="LY%" displayName="LYMPHOCYTE %" /> <statusCode code="completed" /> <effectiveTime value="874875315114" /> <value unit="%" xsi:type="PQ" value="20" /> < referenceRange> <observationRange> <text>20-30</text> </observationRange> </referenceRange> </observation> </component> <component> <observation moodCode="EVN" classCode= "OBS"> <templateId root="06.08.840.1.224838.10.2022.4.2" /> < id nullFlavor="NA" /> <code codeSystem="local" code="MCH" displayName= "MEAN CELL HGB" /> <statusCode code="completed" /> < effectiveTime value="136189204771" /> <value unit="pg" xsi:type="PQ" value="34.8" /> <interpretationCode codeSystem="local" code="*" /> <referenceRange> <observationRange> <text>27.0- 33.0</text> </observationRange> </referenceRange> </ observation> </component> <component> <observation moodCode= "EVN" classCode="OBS"> <templateId root="06.08.840.1.276297.10.20.22.4.2 " /> <id nullFlavor="NA" /> <code codeSystem="local" code= "MCHC" displayName="MEAN CELL HGB CONCENTRATION" /> <statusCode code= "completed" /> <effectiveTime value="826083936640" /> <value unit="g/dL" xsi:type="PQ" value="34.1" /> <referenceRange> < observationRange> <text>32.0-37.0</text> </ observationRange> </referenceRange> </observation> </ component> <component> <observation moodCode="EVN" classCode="OBS"> <templateId root="16.840.1.712452.10.20.22.4.2" /> <id nullFlavor="NA" /> <code codeSystem="local" code="MCV" displayName= "MEAN CELL VOLUME" /> <statusCode code="completed" /> < effectiveTime value="088950176541" /> <value unit="fl" xsi:type="PQ" value="102.1" /> <interpretationCode codeSystem="local" code="*" /> <referenceRange> <observationRange> <text>80.0- 100.0</text> </observationRange> </referenceRange> </ observation> </component> <component> <observation moodCode= "EVN" classCode="OBS"> <templateId root="840.1.774561.10..4.2 " /> <id nullFlavor="NA" /> <code codeSystem="local" code="MO# " displayName="MONOCYTE #" /> <statusCode code="completed" /> <effectiveTime value="264783782882" /> <value unit="k/cumm" xsi:type= "PQ" value="0.4" /> <referenceRange> <observationRange> <text>0.1-1.0</text> </observationRange> </ referenceRange> </observation> </component> <component> <observation moodCode="EVN" classCode="OBS"> <templateId root= "16.840.1.964196.10.20.22.4.2" /> <id nullFlavor="NA" /> < code codeSystem="local" code="MO%" displayName="MONOCYTE %" /> <statusCode code="completed" /> <effectiveTime value="114606415079" /> <value unit="%" xsi:type="PQ" value="4" /> < referenceRange> <observationRange> <text>4-6</text> </observationRange> </referenceRange> </observation> </component> <component> <observation moodCode="EVN" classCode= "OBS"> <templateId root="2.16.840.1.665662.10.20.22.4.2" /> < id nullFlavor="NA" /> <code codeSystem="local" code="RBC" displayName= "RED BLOOD CELL" /> <statusCode code="completed" /> < effectiveTime value="181408717496" /> <value unit="m/cumm" xsi:type="PQ " value="3.79" /> <interpretationCode codeSystem="local" code="*" /> <referenceRange> <observationRange> <text>4.00- 6.00</text> </observationRange> </referenceRange> </ observation> </component> <component> <observation moodCode= "EVN" classCode="OBS"> <templateId root="2.16.840.1.077291.10.20.22.4.2 " /> <id nullFlavor="NA" /> <code codeSystem="local" code="RDW " displayName="RED CELL DISTRIBUTION WIDTH" /> <statusCode code= "completed" /> <effectiveTime value="754652625120" /> <value unit="%" xsi:type="PQ" value="13.3" /> <referenceRange> <observationRange> <text>11.0-15.6</text> </ observationRange> </referenceRange> </observation> </ component> <component> <observation moodCode="EVN" classCode="OBS"> <templateId root="216.840.1.503414.10.20.22.4.2" /> <id nullFlavor="NA" /> <code codeSystem="local" code="WBC" displayName= "WHITE BLOOD CELL" /> <statusCode code="completed" /> < effectiveTime value="486512807642" /> <value unit="k/cumm" xsi:type="PQ " value="10.9" /> <interpretationCode codeSystem="local" code="*" /> <referenceRange> <observationRange> <text>5.0- 10.0</text> </observationRange> </referenceRange> </ observation> </component> <component> <observation moodCode= "EVN" classCode="OBS"> <templateId root="16.840.1.757443.02.09.22.4.2 " /> <id nullFlavor="NA" /> <code codeSystem="local" code= "HGBT" displayName="HEMOGLOBIN" /> <statusCode code="completed" /> <effectiveTime value="350409426280" /> <value unit="gm/dL" xsi: type="PQ" value="13.2" /> <referenceRange> <observationRange > <text>12.0-16.0</text> </observationRange> </ referenceRange> </observation> </component> <component> <observation moodCode="EVN" classCode="OBS"> <templateId root= "06.08.840.1.194988.10.20.22.4.2" /> <id nullFlavor="NA" /> < code codeSystem="local" code="HCTT" displayName="HEMATOCRIT" /> < statusCode code="completed" /> <effectiveTime value="979391999107" /> <value unit="%" xsi:type="PQ" value="38.7" /> < referenceRange> <observationRange> <text>37.0-47.0</text > </observationRange> </referenceRange> </observation > </component> <component> <observation moodCode="EVN" classCode="OBS"> <templateId root="06.08.840.1.811801.10.20.22.4.2" /> <id nullFlavor="NA" /> <code codeSystem="local" code="PLTT" displayName="PLATELET COUNT" /> <statusCode code="completed" /> <effectiveTime value="115600121050" /> <value unit="k/cumm" xsi:type ="PQ" value="309" /> <referenceRange> <observationRange> <text>150-450</text> </observationRange> </ referenceRange> </observation> </component> </organizer> </entry > <entry> <organizer moodCode="EVN" classCode="BATTERY"> <templateId root="840.1.838805.10.22.4.1" /> <id nullFlavor="NA" /> <code codeSystem="local" code="METABC" displayName="METABOLIC PANEL, COMPREHN" /> <statusCode code="completed" /> <component> <observation moodCode= "EVN" classCode="OBS"> <templateId root="06.08.840.1.441552.10.2022.4.2 " /> <id nullFlavor="NA" /> <code codeSystem="local" code="K" displayName="POTASSIUM" /> <statusCode code="completed" /> < effectiveTime value="539747004478" /> <value unit="mmol/L" xsi:type="PQ " value="3.1" /> <interpretationCode codeSystem="local" code="*" /> <referenceRange> <observationRange> <text>3.5-5.3 </text> </observationRange> </referenceRange> </ observation> </component> <component> <observation moodCode= "EVN" classCode="OBS"> <templateId root="16.840.1.527673.10.4.2 " /> <id nullFlavor="NA" /> <code codeSystem="local" code= "eGFR" displayName="EST GFR (MDRD)" /> <statusCode code="completed" /> <effectiveTime value="862284451002" /> <value unit="mL/min" xsi:type="PQ" value="> 60" /> <referenceRange> < observationRange> <text>> 59</text> </ observationRange> </referenceRange> </observation> </ component> <component> <observation moodCode="EVN" classCode="OBS"> <templateId root="06.08.840.1.988439.02.09.22.4.2" /> <id nullFlavor="NA" /> <code codeSystem="local" code="GAP" displayName= "ANION GAP" /> <statusCode code="completed" /> <effectiveTime value="760085934407" /> <value unit="mmol/L" xsi:type="PQ" value="15" / > <referenceRange> <observationRange> <text>5- 15</text> </observationRange> </referenceRange> </ observation> </component> <component> <observation moodCode= "EVN" classCode="OBS"> <templateId root="06.08.840.1.053323.02.09.22.4.2 " /> <id nullFlavor="NA" /> <code codeSystem="local" code= "eCrCl" displayName="EST CrCl (CG)" /> <statusCode code="completed" /> <effectiveTime value="054066011316" /> <value unit="mL/min" xsi:type="PQ" value="> 60" /> <referenceRange> < observationRange> <text>> 59</text> </ observationRange> </referenceRange> </observation> </ component> <component> <observation moodCode="EVN" classCode="OBS"> <templateId root="216.840.1.575650.10.20.22.4.2" /> <id nullFlavor="NA" /> <code codeSystem="local" code="GLU" displayName= "GLUCOSE" /> <statusCode code="completed" /> <effectiveTime value="507057037484" /> <value unit="mg/dL" xsi:type="PQ" value="134" / > <interpretationCode codeSystem="local" code="*" /> < referenceRange> <observationRange> <text>70-99</text> </observationRange> </referenceRange> </observation> </component> <component> <observation moodCode="EVN" classCode= "OBS"> <templateId root="06.08.840.1.169313.22.4.2" /> < id nullFlavor="NA" /> <code codeSystem="local" code="CA" displayName= "CALCIUM" /> <statusCode code="completed" /> <effectiveTime value="565804685810" /> <value unit="mg/dL" xsi:type="PQ" value="9.8" / > <referenceRange> <observationRange> <text>8.5 -10.1</text> </observationRange> </referenceRange> </ observation> </component> <component> <observation moodCode= "EVN" classCode="OBS"> <templateId root="06.08.840.1.663515.10.20.22.4.2 " /> <id nullFlavor="NA" /> <code codeSystem="local" code="BUN " displayName="BLOOD UREA NITROGEN" /> <statusCode code="completed" /> <effectiveTime value="669966729705" /> <value unit="mg/dL" xsi:type="PQ" value="12" /> <referenceRange> < observationRange> <text>7-20</text> </observationRange> </referenceRange> </observation> </component> < component> <observation moodCode="EVN" classCode="OBS"> < templateId root="216.840.1.854013.10...4.2" /> <id nullFlavor="NA " /> <code codeSystem="local" code="CREAT" displayName="CREATININE" /> <statusCode code="completed" /> <effectiveTime value= "288625418613" /> <value unit="mg/dL" xsi:type="PQ" value="0.7" /> <referenceRange> <observationRange> <text>0.6-1.0< /text> </observationRange> </referenceRange> </ observation> </component> <component> <observation moodCode= "EVN" classCode="OBS"> <templateId root="216.840.1.316518.10..22.4.2 " /> <id nullFlavor="NA" /> <code codeSystem="local" code="NA " displayName="SODIUM" /> <statusCode code="completed" /> < effectiveTime value="572553142438" /> <value unit="mmol/L" xsi:type="PQ " value="140" /> <referenceRange> <observationRange> <text>135-148</text> </observationRange> </ referenceRange> </observation> </component> <component> <observation moodCode="EVN" classCode="OBS"> <templateId root= "16.840.1.032847...22.4.2" /> <id nullFlavor="NA" /> < code codeSystem="local" code="CL" displayName="CHLORIDE" /> < statusCode code="completed" /> <effectiveTime value="435579578288" /> <value unit="mmol/L" xsi:type="PQ" value="103" /> < referenceRange> <observationRange> <text>98-110</text> </observationRange> </referenceRange> </observation> </component> <component> <observation moodCode="EVN" classCode ="OBS"> <templateId root="216.840.1.874537.02.09.22.4.2" /> < id nullFlavor="NA" /> <code codeSystem="local" code="AST" displayName= "AST/SGOT" /> <statusCode code="completed" /> <effectiveTime value="627782868725" /> <value unit="Units/L" xsi:type="PQ" value="14" /> <referenceRange> <observationRange> <text>10 -37</text> </observationRange> </referenceRange> </ observation> </component> <component> <observation moodCode= "EVN" classCode="OBS"> <templateId root="216.840.1.067120...22.4.2 " /> <id nullFlavor="NA" /> <code codeSystem="local" code="ALT " displayName="ALT/SGPT" /> <statusCode code="completed" /> < effectiveTime value="862521782665" /> <value unit="Units/L" xsi:type= "PQ" value="19" /> <referenceRange> <observationRange> <text>< 66</text> </observationRange> </ referenceRange> </observation> </component> <component> <observation moodCode="EVN" classCode="OBS"> <templateId root= "06.08.840.1.131554.10.20.22.4.2" /> <id nullFlavor="NA" /> < code codeSystem="local" code="CO2" displayName="CARBON DIOXIDE" /> < statusCode code="completed" /> <effectiveTime value="804349065047" /> <value unit="mmol/L" xsi:type="PQ" value="22" /> < referenceRange> <observationRange> <text>21-32</text> </observationRange> </referenceRange> </observation> </component> <component> <observation moodCode="EVN" classCode= "OBS"> <templateId root="06.08.840.1.018903.10.22.4.2" /> < id nullFlavor="NA" /> <code codeSystem="local" code="TP" displayName= "TOTAL PROTEIN" /> <statusCode code="completed" /> < effectiveTime value="304996188125" /> <value unit="gm/dL" xsi:type="PQ " value="8.5" /> <interpretationCode codeSystem="local" code="*" /> <referenceRange> <observationRange> <text>6.4-8.2 </text> </observationRange> </referenceRange> </ observation> </component> <component> <observation moodCode= "EVN" classCode="OBS"> <templateId root="06.08.840.1.149341.10.2022.4.2 " /> <id nullFlavor="NA" /> <code codeSystem="local" code="ALB " displayName="ALBUMIN" /> <statusCode code="completed" /> < effectiveTime value="796000556585" /> <value unit="gm/dL" xsi:type="PQ " value="4.3" /> <referenceRange> <observationRange> <text>3.4-5.0</text> </observationRange> </ referenceRange> </observation> </component> <component> <observation moodCode="EVN" classCode="OBS"> <templateId root= "216.840.1.802362.10..22.4.2" /> <id nullFlavor="NA" /> < code codeSystem="local" code="BILTOT" displayName="BILI TOTAL" /> < statusCode code="completed" /> <effectiveTime value="350294009884" /> <value unit="mg/dL" xsi:type="PQ" value="0.4" /> < referenceRange> <observationRange> <text>0.0-1.0</text> </observationRange> </referenceRange> </observation > </component> <component> <observation moodCode="EVN" classCode="OBS"> <templateId root="06.08.840.1.037883.10..4.2" /> <id nullFlavor="NA" /> <code codeSystem="local" code="ALKP" displayName="ALKALINE PHOSPHATASE TOTAL" /> <statusCode code="completed " /> <effectiveTime value="049025652971" /> <value unit="IU/L " xsi:type="PQ" value="66" /> <referenceRange> < observationRange> <text>45-117</text> </observationRange > </referenceRange> </observation> </component> </ organizer> </entry> <entry> <organizer moodCode="EVN" classCode="BATTERY"> <templateId root="06.08.840.1.257761.10..22.4.1" /> <id nullFlavor= "NA" /> <code codeSystem="local" code="WET" displayName="WET MOUNT" /> <statusCode code="completed" /> <component> <observation moodCode= "EVN" classCode="OBS"> <templateId root="216.840.1.948662.10...4.2 " /> <id nullFlavor="NA" /> <code codeSystem="local" code="MB " displayName="Microbiology" /> <statusCode code="completed" /> <effectiveTime value="425238300345" /> <value xsi:type="ST" value="< pre><b>WET MOUNT</b> [facility]T [facility] Date/Time: 08/2016 18:03 Karen Date/Time: // :SOURCE: CERVIXSPEC DESC: [facility] Adele Date/Time: 2016 18:03 Karen Date/Time: 02/25/2017 18:27SOURCE : CERVIXSPEC DESC: CLUE CELLSNO CLUE CELLS SEENOTHERBACTERIA 3+TRICHOMONASNO TRICHOMONAS SEENWBCFEW WBCYEASTNO [facility]AST [facility] [id number] [place] [address]</pre>" /> <referenceRange> < observationRange> <text /> </observationRange> </referenceRange> </observation> </component> </organizer> </ entry> <entry> <organizer moodCode="EVN" classCode="BATTERY"> < templateId root="06.08.840.1.541347.10..4.1" /> <id nullFlavor="NA" /> <code codeSystem="local" code="PREGN" displayName=" Screen, Urine NPT" /> <statusCode code="completed" /> <component> < observation moodCode="EVN" classCode="OBS"> <templateId root= "216.840.1.739811.10..22.4.2" /> <id nullFlavor="NA" /> < code codeSystem="local" code="PREGN" displayName=" Screen, Urine NPT" / > <statusCode code="completed" /> <effectiveTime value= "548731898301" /> <value unit="NA" xsi:type="PQ" value="Negative" /> <referenceRange> <observationRange> <text /> </observationRange> </referenceRange> </observation> </component> </organizer> </entry> <entry> <organizer moodCode="EVN " classCode="BATTERY"> <templateId root="216.840.1.980852.10...4.1" / > <id nullFlavor="NA" /> <code codeSystem="local" code="CBCWD" displayName="CBC With Platelet and Differential" /> <statusCode code= "completed" /> <component> <observation moodCode="EVN" classCode= "OBS"> <templateId root="216.840.1.566632...4.2" /> < id nullFlavor="NA" /> <code codeSystem="local" code="ABASR" displayName ="Absolute Basophils" /> <statusCode code="completed" /> < effectiveTime value="911652215712" /> <value unit="10*3/uL" xsi:type= "PQ" value="0.02" /> <referenceRange> <observationRange> <text>0.00-0.20</text> </observationRange> </ referenceRange> </observation> </component> <component> <observation moodCode="EVN" classCode="OBS"> <templateId root= "216.840.1.462574.10...4.2" /> <id nullFlavor="NA" /> < code codeSystem="local" code="AEOSR" displayName="Absolute Eosinophils" /> <statusCode code="completed" /> <effectiveTime value="209871655474 " /> <value unit="10*3/uL" xsi:type="PQ" value="0.02" /> < referenceRange> <observationRange> <text>0.00-0.50</text > </observationRange> </referenceRange> </observation > </component> <component> <observation moodCode="EVN" classCode="OBS"> <templateId root="216.840.1.541988.10...4.2" /> <id nullFlavor="NA" /> <code codeSystem="local" code="ALYMR" displayName="Absolute Lymphocytes" /> <statusCode code="completed" /> <effectiveTime value="484543103472" /> <value unit="10*3/uL" xsi:type="PQ" value="2.13" /> <referenceRange> < observationRange> <text>0.80-3.30</text> </ observationRange> </referenceRange> </observation> </ component> <component> <observation moodCode="EVN" classCode="OBS"> <templateId root="216.840.1.053923.10..4.2" /> <id nullFlavor="NA" /> <code codeSystem="local" code="AMONR" displayName= "Absolute Monocytes" /> <statusCode code="completed" /> < effectiveTime value="983529147590" /> <value unit="10*3/uL" xsi:type= "PQ" value="0.53" /> <referenceRange> <observationRange> <text>0.30-1.00</text> </observationRange> </ referenceRange> </observation> </component> <component> <observation moodCode="EVN" classCode="OBS"> <templateId root= "216.840.1.575898.10..22.4.2" /> <id nullFlavor="NA" /> < code codeSystem="local" code="ASEGR" displayName="Absolute Neutrophils" /> <statusCode code="completed" /> <effectiveTime value="904747808295 " /> <value unit="10*3/uL" xsi:type="PQ" value="6.22" /> < referenceRange> <observationRange> <text>1.90-7.00</text > </observationRange> </referenceRange> </observation > </component> <component> <observation moodCode="EVN" classCode="OBS"> <templateId root="216.840.1.436286.10...4.2" /> <id nullFlavor="NA" /> <code codeSystem="local" code="BASOR" displayName="Basophils" /> <statusCode code="completed" /> < effectiveTime value="" /> <value unit="%" xsi:type="PQ " value="0" /> <referenceRange> <observationRange> <text>0-2</text> </observationRange> </referenceRange> </observation> </component> <component> <observation moodCode="EVN" classCode="OBS"> <templateId root= "216.840.1.603451.10...4.2" /> <id nullFlavor="NA" /> < code codeSystem="local" code="EOSR" displayName="Eosinophils" /> < statusCode code="completed" /> <effectiveTime value="996632263579" /> <value unit="%" xsi:type="PQ" value="0" /> <referenceRange > <observationRange> <text>0-4</text> </ observationRange> </referenceRange> </observation> </ component> <component> <observation moodCode="EVN" classCode="OBS"> <templateId root="216.840.1.857146.10.20.22.4.2" /> <id nullFlavor="NA" /> <code codeSystem="local" code="HCT" displayName="HCT " /> <statusCode code="completed" /> <effectiveTime value= "073012253507" /> <value unit="%" xsi:type="PQ" value="40.7" /> <referenceRange> <observationRange> <text>37.0- 47.0</text> </observationRange> </referenceRange> </ observation> </component> <component> <observation moodCode= "EVN" classCode="OBS"> <templateId root="16.840.1.518831.10..22.4.2 " /> <id nullFlavor="NA" /> <code codeSystem="local" code="HGB " displayName="HGB" /> <statusCode code="completed" /> < effectiveTime value="" /> <value unit="g/dL" xsi:type="PQ" value="14.0" /> <referenceRange> <observationRange> <text>12.0-16.0</text> </observationRange> </ referenceRange> </observation> </component> <component> <observation moodCode="EVN" classCode="OBS"> <templateId root= "06.08.840.1.812942.10.20.22.4.2" /> <id nullFlavor="NA" /> < code codeSystem="local" code="IMGA" displayName="Immature Granulocytes" /> <statusCode code="completed" /> <effectiveTime value="221180883424 " /> <value unit="%" xsi:type="PQ" value="0.2" /> < referenceRange> <observationRange> <text>0.0-1.0</text> </observationRange> </referenceRange> </observation > </component> <component> <observation moodCode="EVN" classCode="OBS"> <templateId root="216.840.1.051261.10.4.2" /> <id nullFlavor="NA" /> <code codeSystem="local" code="LYMPR" displayName="Lymphocytes" /> <statusCode code="completed" /> < effectiveTime value="" /> <value unit="%" xsi:type="PQ " value="24" /> <referenceRange> <observationRange> <text>20-46</text> </observationRange> </ referenceRange> </observation> </component> <component> <observation moodCode="EVN" classCode="OBS"> <templateId root= "06.08.840.1.783073.02.09.224.2" /> <id nullFlavor="NA" /> < code codeSystem="local" code="MCH" displayName="MCH" /> <statusCode code="completed" /> <effectiveTime value="" /> < value unit="pg" xsi:type="PQ" value="34.4" /> <interpretationCode codeSystem="local" code="*" /> <referenceRange> < observationRange> <text>27.0-32.0</text> </ observationRange> </referenceRange> </observation> </ component> <component> <observation moodCode="EVN" classCode="OBS"> <templateId root="16.840.1.755622.02.09.22.4.2" /> <id nullFlavor="NA" /> <code codeSystem="local" code="MCHC" displayName= "MCHC" /> <statusCode code="completed" /> <effectiveTime value ="910036790995" /> <value unit="g/dL" xsi:type="PQ" value="34.4" /> <referenceRange> <observationRange> <text>32.0- 36.0</text> </observationRange> </referenceRange> </ observation> </component> <component> <observation moodCode= "EVN" classCode="OBS"> <templateId root="216.840.1.581521...4.2 " /> <id nullFlavor="NA" /> <code codeSystem="local" code="MCV " displayName="MCV" /> <statusCode code="completed" /> < effectiveTime value="597076821155" /> <value unit="fL" xsi:type="PQ" value="100.0" /> <interpretationCode codeSystem="local" code="*" /> <referenceRange> <observationRange> <text>82.0- 99.0</text> </observationRange> </referenceRange> </ observation> </component> <component> <observation moodCode= "EVN" classCode="OBS"> <templateId root="06.08.840.1.507850.02.09.22.4.2 " /> <id nullFlavor="NA" /> <code codeSystem="local" code= "MONOR" displayName="Monocytes" /> <statusCode code="completed" /> <effectiveTime value="340942376110" /> <value unit="%" xsi: type="PQ" value="6" /> <referenceRange> <observationRange> <text>4-11</text> </observationRange> </ referenceRange> </observation> </component> <component> <observation moodCode="EVN" classCode="OBS"> <templateId root= "16.840.1.211103.02.09.22.4.2" /> <id nullFlavor="NA" /> < code codeSystem="local" code="MPV" displayName="MPV" /> <statusCode code="completed" /> <effectiveTime value="" /> < value unit="fL" xsi:type="PQ" value="8.7" /> <interpretationCode codeSystem="local" code="*" /> <referenceRange> < observationRange> <text>9.4-12.4</text> </ observationRange> </referenceRange> </observation> </ component> <component> <observation moodCode="EVN" classCode="OBS"> <templateId root="2.16.840.1.395381.02.09.224.2" /> <id nullFlavor="NA" /> <code codeSystem="local" code="SEGR" displayName= "Neutrophils" /> <statusCode code="completed" /> < effectiveTime value="" /> <value unit="%" xsi:type="PQ " value="70" /> <referenceRange> <observationRange> <text>51-75</text> </observationRange> </ referenceRange> </observation> </component> <component> <observation moodCode="EVN" classCode="OBS"> <templateId root= "216.840.1.280273.104.2" /> <id nullFlavor="NA" /> < code codeSystem="local" code="NRBCA" displayName="Nucleated RBC Automated" /> <statusCode code="completed" /> <effectiveTime value= "" /> <value unit="/100WBC" xsi:type="PQ" value="0.0" /> <referenceRange> <observationRange> <text /> </observationRange> </referenceRange> </observation> </component> <component> <observation moodCode="EVN" classCode= "OBS"> <templateId root="06.08.840.1.750920.10.2022.4.2" /> < id nullFlavor="NA" /> <code codeSystem="local" code="PLT" displayName= "Platelet Count" /> <statusCode code="completed" /> < effectiveTime value="" /> <value unit="K/uL" xsi:type="PQ" value="335" /> <referenceRange> <observationRange> <text>150-400</text> </observationRange> </ referenceRange> </observation> </component> <component> <observation moodCode="EVN" classCode="OBS"> <templateId root= "06.08.840.1.143163..22.4.2" /> <id nullFlavor="NA" /> < code codeSystem="local" code="RBC" displayName="RBC" /> <statusCode code="completed" /> <effectiveTime value="" /> < value unit="10*6/uL" xsi:type="PQ" value="4.07" /> <referenceRange> <observationRange> <text>4.00-5.20</text> </ observationRange> </referenceRange> </observation> </ component> <component> <observation moodCode="EVN" classCode="OBS"> <templateId root="06.08.840.1.518553.10.20.22.4.2" /> <id nullFlavor="NA" /> <code codeSystem="local" code="RDW" displayName="RDW " /> <statusCode code="completed" /> <effectiveTime value= "146689060689" /> <value unit="%" xsi:type="PQ" value="12.7" /> <referenceRange> <observationRange> <text>11.5- 14.5</text> </observationRange> </referenceRange> </ observation> </component> <component> <observation moodCode= "EVN" classCode="OBS"> <templateId root="06.08.840.1.661663.10.20.22.4.2 " /> <id nullFlavor="NA" /> <code codeSystem="local" code= "WBCIR" displayName="WBC" /> <statusCode code="completed" /> < effectiveTime value="328122375725" /> <value unit="K/uL" xsi:type="PQ" value="8.9" /> <referenceRange> <observationRange> <text>4.8-10.8</text> </observationRange> </ referenceRange> </observation> </component> </organizer> </entry > <entry> <organizer moodCode="EVN" classCode="BATTERY"> <templateId root="06.08.840.1.333621.10..22.4.1" /> <id nullFlavor="NA" /> <code codeSystem="local" code="CMP" displayName="Comprehensive Metabolic Panel (CMP)" /> <statusCode code="completed" /> <component> <observation moodCode="EVN" classCode="OBS"> <templateId root= "06.08.840.1.077787.10.2022.4.2" /> <id nullFlavor="NA" /> < code codeSystem="local" code="ALB" displayName="Albumin" /> < statusCode code="completed" /> <effectiveTime value="085184658196" /> <value unit="g/dL" xsi:type="PQ" value="5.0" /> < interpretationCode codeSystem="local" code="*" /> <referenceRange> <observationRange> <text>3.5-4.8</text> </ observationRange> </referenceRange> </observation> </ component> <component> <observation moodCode="EVN" classCode="OBS"> <templateId root="216.840.1.771362.10..22.4.2" /> <id nullFlavor="NA" /> <code codeSystem="local" code="ALP" displayName= "Alkaline Phosphatase" /> <statusCode code="completed" /> < effectiveTime value="165263893787" /> <value unit="U/L" xsi:type="PQ" value="57" /> <referenceRange> <observationRange> <text>26-104</text> </observationRange> </referenceRange > </observation> </component> <component> <observation moodCode="EVN" classCode="OBS"> <templateId root= "06.08.840.1.250931.02.09.22.4.2" /> <id nullFlavor="NA" /> < code codeSystem="local" code="ALT" displayName="ALT (SGPT)" /> < statusCode code="completed" /> <effectiveTime value="224329224707" /> <value unit="U/L" xsi:type="PQ" value="14" /> <referenceRange > <observationRange> <text>14-54</text> </ observationRange> </referenceRange> </observation> </ component> <component> <observation moodCode="EVN" classCode="OBS"> <templateId root="16.840.1.851341.10...4.2" /> <id nullFlavor="NA" /> <code codeSystem="local" code="AGAP" displayName= "Anion Gap" /> <statusCode code="completed" /> <effectiveTime value="157033408974" /> <value unit="mEq/L" xsi:type="PQ" value="9" /> <referenceRange> <observationRange> <text>3-20 </text> </observationRange> </referenceRange> </ observation> </component> <component> <observation moodCode= "EVN" classCode="OBS"> <templateId root="06.08.840.1.485886.10.20.22.4.2 " /> <id nullFlavor="NA" /> <code codeSystem="local" code="AST " displayName="AST (SGOT)" /> <statusCode code="completed" /> <effectiveTime value="488899788431" /> <value unit="U/L" xsi:type="PQ" value="16" /> <referenceRange> <observationRange> <text>15-41</text> </observationRange> </referenceRange > </observation> </component> <component> <observation moodCode="EVN" classCode="OBS"> <templateId root= "06.08.840.1.001455.10..22.4.2" /> <id nullFlavor="NA" /> < code codeSystem="local" code="BILIT" displayName="Bilirubin Total" /> < statusCode code="completed" /> <effectiveTime value="794454714460" /> <value unit="mg/dL" xsi:type="PQ" value="0.4" /> < referenceRange> <observationRange> <text>0.2-1.2</text> </observationRange> </referenceRange> </observation > </component> <component> <observation moodCode="EVN" classCode="OBS"> <templateId root="06.08.840.1.754142.10.20.22.4.2" /> <id nullFlavor="NA" /> <code codeSystem="local" code="BUN" displayName="BUN" /> <statusCode code="completed" /> < effectiveTime value="863159507531" /> <value unit="mg/dL" xsi:type="PQ " value="12" /> <referenceRange> <observationRange> <text>4-20</text> </observationRange> </referenceRange > </observation> </component> <component> <observation moodCode="EVN" classCode="OBS"> <templateId root= "06.08.840.1.887005.02.09.22.4.2" /> <id nullFlavor="NA" /> < code codeSystem="local" code="CA" displayName="Calcium" /> <statusCode code="completed" /> <effectiveTime value="377694165856" /> < value unit="mg/dL" xsi:type="PQ" value="9.8" /> <referenceRange> <observationRange> <text>8.6-10.0</text> </ observationRange> </referenceRange> </observation> </ component> <component> <observation moodCode="EVN" classCode="OBS"> <templateId root="06.08.840.1.615463.02.09.22.4.2" /> <id nullFlavor="NA" /> <code codeSystem="local" code="CL" displayName= "Chloride" /> <statusCode code="completed" /> <effectiveTime value="479618662848" /> <value unit="mEq/L" xsi:type="PQ" value="105" / > <referenceRange> <observationRange> <text>99- 109</text> </observationRange> </referenceRange> </ observation> </component> <component> <observation moodCode= "EVN" classCode="OBS"> <templateId root="06.08.840.1.266510.02.09..4.2 " /> <id nullFlavor="NA" /> <code codeSystem="local" code="CO2 " displayName="CO2" /> <statusCode code="completed" /> < effectiveTime value="125290521659" /> <value unit="mEq/L" xsi:type="PQ " value="22" /> <referenceRange> <observationRange> <text>22-32</text> </observationRange> </ referenceRange> </observation> </component> <component> <observation moodCode="EVN" classCode="OBS"> <templateId root= "2.16.840.1.574986.10...4.2" /> <id nullFlavor="NA" /> < code codeSystem="local" code="CREAT" displayName="Creatinine" /> < statusCode code="completed" /> <effectiveTime value="234899184906" /> <value unit="mg/dL" xsi:type="PQ" value="0.61" /> < referenceRange> <observationRange> <text>0.44-1.03</text > </observationRange> </referenceRange> </observation > </component> <component> <observation moodCode="EVN" classCode="OBS"> <templateId root="2.16.840.1.575485.10..22.4.2" /> <id nullFlavor="NA" /> <code codeSystem="local" code="GLOB" displayName="Globulin" /> <statusCode code="completed" /> < effectiveTime value="904809662557" /> <value unit="g/dL" xsi:type="PQ" value="3.0" /> <referenceRange> <observationRange> <text>1.9-4.3</text> </observationRange> </ referenceRange> </observation> </component> <component> <observation moodCode="EVN" classCode="OBS"> <templateId root= "06.08.840.1.044356.10.22.4.2" /> <id nullFlavor="NA" /> < code codeSystem="local" code="GLU" displayName="Glucose" /> < statusCode code="completed" /> <effectiveTime value="" /> <value unit="mg/dL" xsi:type="PQ" value="83" /> < referenceRange> <observationRange> <text>70-100</text> </observationRange> </referenceRange> </observation> </component> <component> <observation moodCode="EVN" classCode ="OBS"> <templateId root="840.1.049232.22.4.2" /> < id nullFlavor="NA" /> <code codeSystem="local" code="K" displayName= "Potassium" /> <statusCode code="completed" /> <effectiveTime value="" /> <value unit="mEq/L" xsi:type="PQ" value="3.5" / > <interpretationCode codeSystem="local" code="*" /> < referenceRange> <observationRange> <text>3.6-5.1</text> </observationRange> </referenceRange> </observation > </component> <component> <observation moodCode="EVN" classCode="OBS"> <templateId root="06.08.840.1.484931.10.22.4.2" /> <id nullFlavor="NA" /> <code codeSystem="local" code="TP" displayName="Protein" /> <statusCode code="completed" /> < effectiveTime value="" /> <value unit="g/dL" xsi:type="PQ" value="8.0" /> <interpretationCode codeSystem="local" code="*" /> <referenceRange> <observationRange> <text>6.1-7.9</ text> </observationRange> </referenceRange> </ observation> </component> <component> <observation moodCode= "EVN" classCode="OBS"> <templateId root="16.840.1.311080.10.20.22.4.2 " /> <id nullFlavor="NA" /> <code codeSystem="local" code="NA " displayName="Sodium" /> <statusCode code="completed" /> < effectiveTime value="319007566945" /> <value unit="mEq/L" xsi:type="PQ " value="136" /> <referenceRange> <observationRange> <text>136-144</text> </observationRange> </ referenceRange> </observation> </component> </organizer> </entry > <entry> <organizer moodCode="EVN" classCode="BATTERY"> <templateId root="16.840.1.099874.10..22.4.1" /> <id nullFlavor="NA" /> <code codeSystem="local" code="GFR" displayName="eGFR" /> <statusCode code= "completed" /> <component> <observation moodCode="EVN" classCode= "OBS"> <templateId root="16.840.1.913848.10.20.22.4.2" /> < id nullFlavor="NA" /> <code codeSystem="local" code="GFR" displayName= "eGFR" /> <statusCode code="completed" /> <effectiveTime value ="456044657875" /> <value unit="mL/min" xsi:type="PQ" value=">60" / > <referenceRange> <observationRange> <text>&gt ;60</text> </observationRange> </referenceRange> </ observation> </component> </organizer> </entry> <entry> <organizer moodCode="EVN" classCode="BATTERY"> <templateId root= "16.840.1.057386.10..4.1" /> <id nullFlavor="NA" /> <code codeSystem="local" code="UA" displayName="Urinalysis with reflex microscopic" / > <statusCode code="completed" /> <component> <observation moodCode="EVN" classCode="OBS"> <templateId root= "06.08.840.1.968846.10...4.2" /> <id nullFlavor="NA" /> < code codeSystem="local" code="UAPP" displayName="Appearance" /> < statusCode code="completed" /> <effectiveTime value="" /> <value unit="NA" xsi:type="PQ" value="Sl Cloudy" /> < referenceRange> <observationRange> <text /> < /observationRange> </referenceRange> </observation> </ component> <component> <observation moodCode="EVN" classCode="OBS"> <templateId root="06.08.840.1.562098.10..4.2" /> <id nullFlavor="NA" /> <code codeSystem="local" code="UBIL" displayName= "Bilirubin" /> <statusCode code="completed" /> <effectiveTime value="680587435726" /> <value unit="NA" xsi:type="PQ" value="Positive " /> <interpretationCode codeSystem="local" code="*" /> < referenceRange> <observationRange> <text>Negative</text > </observationRange> </referenceRange> </observation > </component> <component> <observation moodCode="EVN" classCode="OBS"> <templateId root="06.08.840.1.792681.10.22.4.2" /> <id nullFlavor="NA" /> <code codeSystem="local" code="UBLD" displayName="Blood" /> <statusCode code="completed" /> < effectiveTime value="" /> <value unit="NA" xsi:type="PQ" value="Negative" /> <referenceRange> <observationRange> <text>Negative</text> </observationRange> </ referenceRange> </observation> </component> <component> <observation moodCode="EVN" classCode="OBS"> <templateId root= "216.840.1.173274.02.09.22.4.2" /> <id nullFlavor="NA" /> < code codeSystem="local" code="UCOLR" displayName="Color" /> < statusCode code="completed" /> <effectiveTime value="" /> <value unit="NA" xsi:type="PQ" value="Yellow" /> < referenceRange> <observationRange> <text /> < /observationRange> </referenceRange> </observation> </ component> <component> <observation moodCode="EVN" classCode="OBS"> <templateId root="216.840.1.021784.02.09.22.4.2" /> <id nullFlavor="NA" /> <code codeSystem="local" code="UGLU" displayName= "Glucose, Urine" /> <statusCode code="completed" /> < effectiveTime value="" /> <value unit="" xsi:type="PQ" value="Negative" /> <referenceRange> <observationRange> <text>Negative</text> </observationRange> </ referenceRange> </observation> </component> <component> <observation moodCode="EVN" classCode="OBS"> <templateId root= "216.840.1.227311.10..4.2" /> <id nullFlavor="NA" /> < code codeSystem="local" code="UKET" displayName="Ketones" /> < statusCode code="completed" /> <effectiveTime value="" /> <value unit="" xsi:type="PQ" value="Negative" /> < referenceRange> <observationRange> <text>Negative</text > </observationRange> </referenceRange> </observation > </component> <component> <observation moodCode="EVN" classCode="OBS"> <templateId root="16.840.1.507546.02.09.22.4.2" /> <id nullFlavor="NA" /> <code codeSystem="local" code="ULEU" displayName="Leukocyte Esterase" /> <statusCode code="completed" /> <effectiveTime value="" /> <value unit="NA" xsi:type ="PQ" value="Negative" /> <referenceRange> <observationRange > <text>Negative</text> </observationRange> </ referenceRange> </observation> </component> <component> <observation moodCode="EVN" classCode="OBS"> <templateId root= "16.840.1.108469.10.4.2" /> <id nullFlavor="NA" /> < code codeSystem="local" code="UNIT" displayName="Nitrites" /> < statusCode code="completed" /> <effectiveTime value="" /> <value unit="NA" xsi:type="PQ" value="Negative" /> < referenceRange> <observationRange> <text>Negative</text > </observationRange> </referenceRange> </observation > </component> <component> <observation moodCode="EVN" classCode="OBS"> <templateId root="16.840.1.600902.10..4.2" /> <id nullFlavor="NA" /> <code codeSystem="local" code="UPH" displayName="pH" /> <statusCode code="completed" /> < effectiveTime value="677219921870" /> <value unit="NA" xsi:type="PQ" value="5.5" /> <referenceRange> <observationRange> <text>5.0-8.0</text> </observationRange> </ referenceRange> </observation> </component> <component> <observation moodCode="EVN" classCode="OBS"> <templateId root= "06.08.840.1.800882.02.09.22.4.2" /> <id nullFlavor="NA" /> < code codeSystem="local" code="UPRO" displayName="Protein" /> < statusCode code="completed" /> <effectiveTime value="" /> <value unit="NA" xsi:type="PQ" value="Trace" /> < interpretationCode codeSystem="local" code="*" /> <referenceRange> <observationRange> <text>Negative</text> </ observationRange> </referenceRange> </observation> </ component> <component> <observation moodCode="EVN" classCode="OBS"> <templateId root="06.08.840.1.308968.10...4.2" /> <id nullFlavor="NA" /> <code codeSystem="local" code="USPG" displayName= "Specific [place]" /> <statusCode code="completed" /> < effectiveTime value="044014801738" /> <value unit="NA" xsi:type="PQ" value="1.015" /> <referenceRange> <observationRange> <text>1.003-1.030</text> </observationRange> </ referenceRange> </observation> </component> <component> <observation moodCode="EVN" classCode="OBS"> <templateId root= "16.840.1.612543.10..22.4.2" /> <id nullFlavor="NA" /> < code codeSystem="local" code="UTYP" displayName="UA Collection type" /> <statusCode code="completed" /> <effectiveTime value="268772083551" / > <value unit="NA" xsi:type="PQ" value="Clean Catch" /> < referenceRange> <observationRange> <text /> < /observationRange> </referenceRange> </observation> </ component> <component> <observation moodCode="EVN" classCode="OBS"> <templateId root="06.08.840.1.658105.10..4.2" /> <id nullFlavor="NA" /> <code codeSystem="local" code="UURO" displayName= "Urobilinogen" /> <statusCode code="completed" /> < effectiveTime value="380227429276" /> <value unit="mg/dL" xsi:type="PQ " value="0.2" /> <referenceRange> <observationRange> <text><1.0</text> </observationRange> </ referenceRange> </observation> </component> </organizer> </entry > <entry> <organizer moodCode="EVN" classCode="BATTERY"> <templateId root="06.08.840.1.437547.10...4.1" /> <id nullFlavor="NA" /> <code codeSystem="local" code="CBCD" displayName="CBC W/DIFF" /> <statusCode code ="completed" /> <component> <observation moodCode="EVN" classCode= "OBS"> <templateId root="216.840.1.948176.10.4.2" /> < id nullFlavor="NA" /> <code codeSystem="local" code="BA#" displayName= "BASOPHIL #" /> <statusCode code="completed" /> < effectiveTime value="949129098764" /> <value unit="k/cumm" xsi:type="PQ " value="0.0" /> <referenceRange> <observationRange> <text>0.0-0.2</text> </observationRange> </ referenceRange> </observation> </component> <component> <observation moodCode="EVN" classCode="OBS"> <templateId root= "16.840.1.771215.02.09.224.2" /> <id nullFlavor="NA" /> < code codeSystem="local" code="BA%" displayName="BASOPHIL %" /> <statusCode code="completed" /> <effectiveTime value="084067149558" /> <value unit="%" xsi:type="PQ" value="0.1" /> < referenceRange> <observationRange> <text>0-1</text> </observationRange> </referenceRange> </observation> </component> <component> <observation moodCode="EVN" classCode= "OBS"> <templateId root="216.840.1.785718.10.4.2" /> < id nullFlavor="NA" /> <code codeSystem="local" code="EO#" displayName= "EOSINOPHIL #" /> <statusCode code="completed" /> < effectiveTime value="326650178378" /> <value unit="k/cumm" xsi:type="PQ " value="0.1" /> <referenceRange> <observationRange> <text>0.1-0.5</text> </observationRange> </ referenceRange> </observation> </component> <component> <observation moodCode="EVN" classCode="OBS"> <templateId root= "216.840.1.698816.10.22.4.2" /> <id nullFlavor="NA" /> < code codeSystem="local" code="EO%" displayName="EOSINOPHIL %" /> <statusCode code="completed" /> <effectiveTime value="906266654494" /> <value unit="%" xsi:type="PQ" value="1.6" /> < interpretationCode codeSystem="local" code="*" /> <referenceRange> <observationRange> <text>2-4</text> </ observationRange> </referenceRange> </observation> </ component> <component> <observation moodCode="EVN" classCode="OBS"> <templateId root="06.08.840.1.047430.02.09.22.4.2" /> <id nullFlavor="NA" /> <code codeSystem="local" code="GR#" displayName= "GRANULOCYTE #" /> <statusCode code="completed" /> < effectiveTime value="835333490335" /> <value unit="k/cumm" xsi:type="PQ " value="3.1" /> <referenceRange> <observationRange> <text>2.0-9.0</text> </observationRange> </ referenceRange> </observation> </component> <component> <observation moodCode="EVN" classCode="OBS"> <templateId root= "16.840.1.118559.22.4.2" /> <id nullFlavor="NA" /> < code codeSystem="local" code="GR%" displayName="GRANULOCYTE %" /> <statusCode code="completed" /> <effectiveTime value=" " /> <value unit="%" xsi:type="PQ" value="40.8" /> < interpretationCode codeSystem="local" code="*" /> <referenceRange> <observationRange> <text>50-75</text> </ observationRange> </referenceRange> </observation> </ component> <component> <observation moodCode="EVN" classCode="OBS"> <templateId root="2.16.840.1.540403.02.09.224.2" /> <id nullFlavor="NA" /> <code codeSystem="local" code="LY#" displayName= "LYMPHOCYTE #" /> <statusCode code="completed" /> < effectiveTime value="" /> <value unit="k/cumm" xsi:type="PQ " value="3.6" /> <referenceRange> <observationRange> <text>1.0-4.0</text> </observationRange> </ referenceRange> </observation> </component> <component> <observation moodCode="EVN" classCode="OBS"> <templateId root= "2.16.840.1.092761.10..4.2" /> <id nullFlavor="NA" /> < code codeSystem="local" code="LY%" displayName="LYMPHOCYTE %" /> <statusCode code="completed" /> <effectiveTime value="" /> <value unit="%" xsi:type="PQ" value="47.6" /> < interpretationCode codeSystem="local" code="*" /> <referenceRange> <observationRange> <text>20-30</text> </ observationRange> </referenceRange> </observation> </ component> <component> <observation moodCode="EVN" classCode="OBS"> <templateId root="2.840.1.990912.10.20.22.4.2" /> <id nullFlavor="NA" /> <code codeSystem="local" code="MCH" displayName= "MEAN CELL HGB" /> <statusCode code="completed" /> < effectiveTime value="030142657897" /> <value unit="pg" xsi:type="PQ" value="33.9" /> <interpretationCode codeSystem="local" code="*" /> <referenceRange> <observationRange> <text>27.0- 33.0</text> </observationRange> </referenceRange> </ observation> </component> <component> <observation moodCode= "EVN" classCode="OBS"> <templateId root="840.1.505075.10..4.2 " /> <id nullFlavor="NA" /> <code codeSystem="local" code= "MCHC" displayName="MEAN CELL HGB CONCENTRATION" /> <statusCode code= "completed" /> <effectiveTime value="443836019744" /> <value unit="g/dL" xsi:type="PQ" value="32.5" /> <referenceRange> < observationRange> <text>32.0-37.0</text> </ observationRange> </referenceRange> </observation> </ component> <component> <observation moodCode="EVN" classCode="OBS"> <templateId root="06.08.840.1.511868.10.20.22.4.2" /> <id nullFlavor="NA" /> <code codeSystem="local" code="MCV" displayName= "MEAN CELL VOLUME" /> <statusCode code="completed" /> < effectiveTime value="398452480480" /> <value unit="fl" xsi:type="PQ" value="104.1" /> <interpretationCode codeSystem="local" code="*" /> <referenceRange> <observationRange> <text>80.0- 100.0</text> </observationRange> </referenceRange> </ observation> </component> <component> <observation moodCode= "EVN" classCode="OBS"> <templateId root="216.840.1.619264.10..22.4.2 " /> <id nullFlavor="NA" /> <code codeSystem="local" code="MO# " displayName="MONOCYTE #" /> <statusCode code="completed" /> <effectiveTime value="044326998634" /> <value unit="k/cumm" xsi:type= "PQ" value="0.8" /> <referenceRange> <observationRange> <text>0.1-1.0</text> </observationRange> </ referenceRange> </observation> </component> <component> <observation moodCode="EVN" classCode="OBS"> <templateId root= "216.840.1.641977.10..22.4.2" /> <id nullFlavor="NA" /> < code codeSystem="local" code="MO%" displayName="MONOCYTE %" /> <statusCode code="completed" /> <effectiveTime value="258764528990" /> <value unit="%" xsi:type="PQ" value="9.9" /> < interpretationCode codeSystem="local" code="*" /> <referenceRange> <observationRange> <text>4-6</text> </ observationRange> </referenceRange> </observation> </ component> <component> <observation moodCode="EVN" classCode="OBS"> <templateId root="216.840.1.919518.10..22.4.2" /> <id nullFlavor="NA" /> <code codeSystem="local" code="RBC" displayName=" RED BLOOD CELL" /> <statusCode code="completed" /> < effectiveTime value="340499699105" /> <value unit="m/cumm" xsi:type="PQ " value="3.63" /> <interpretationCode codeSystem="local" code="*" /> <referenceRange> <observationRange> <text>4.00- 6.00</text> </observationRange> </referenceRange> </ observation> </component> <component> <observation moodCode= "EVN" classCode="OBS"> <templateId root="216.840.1.446416.02.09.22.4.2 " /> <id nullFlavor="NA" /> <code codeSystem="local" code="RDW " displayName="RED CELL DISTRIBUTION WIDTH" /> <statusCode code= "completed" /> <effectiveTime value="487143510943" /> <value unit="%" xsi:type="PQ" value="12.4" /> <referenceRange> <observationRange> <text>11.0-15.6</text> </ observationRange> </referenceRange> </observation> </ component> <component> <observation moodCode="EVN" classCode="OBS"> <templateId root="216.840.1.959805.10..22.4.2" /> <id nullFlavor="NA" /> <code codeSystem="local" code="WBC" displayName= "WHITE BLOOD CELL" /> <statusCode code="completed" /> < effectiveTime value="320664251201" /> <value unit="k/cumm" xsi:type="PQ " value="7.7" /> <referenceRange> <observationRange> <text>5.0-10.0</text> </observationRange> </ referenceRange> </observation> </component> <component> <observation moodCode="EVN" classCode="OBS"> <templateId root= "216.840.1.728209.10...4.2" /> <id nullFlavor="NA" /> < code codeSystem="local" code="HGBT" displayName="HEMOGLOBIN" /> < statusCode code="completed" /> <effectiveTime value="653457512364" /> <value unit="gm/dL" xsi:type="PQ" value="12.3" /> < referenceRange> <observationRange> <text>12.0-16.0</text > </observationRange> </referenceRange> </observation > </component> <component> <observation moodCode="EVN" classCode="OBS"> <templateId root="06.08.840.1.425226.10..4.2" /> <id nullFlavor="NA" /> <code codeSystem="local" code="HCTT" displayName="HEMATOCRIT" /> <statusCode code="completed" /> < effectiveTime value="343131656009" /> <value unit="%" xsi:type="PQ " value="37.8" /> <referenceRange> <observationRange> <text>37.0-47.0</text> </observationRange> </ referenceRange> </observation> </component> <component> <observation moodCode="EVN" classCode="OBS"> <templateId root= "16.840.1.722899.10.20.22.4.2" /> <id nullFlavor="NA" /> < code codeSystem="local" code="PLTT" displayName="PLATELET COUNT" /> < statusCode code="completed" /> <effectiveTime value="764214484847" /> <value unit="k/cumm" xsi:type="PQ" value="334" /> < referenceRange> <observationRange> <text>150-450</text> </observationRange> </referenceRange> </observation > </component> </organizer> </entry> <entry> <organizer moodCode= "EVN" classCode="BATTERY"> <templateId root="216.840.1.390944.10..22.4.1 " /> <id nullFlavor="NA" /> <code codeSystem="local" code="DIMER" displayName="D-DIMER QUANT" /> <statusCode code="completed" /> < component> <observation moodCode="EVN" classCode="OBS"> < templateId root="216.840.1.360505.10..22.4.2" /> <id nullFlavor="NA " /> <code codeSystem="local" code="DIMER" displayName="D-DIMER QUANT" /> <statusCode code="completed" /> <effectiveTime value= "564338988004" /> <value unit="ng/mL" xsi:type="PQ" value="308" /> <referenceRange> <observationRange> <text>< 500 </text> </observationRange> </referenceRange> </ observation> </component> </organizer> </entry> <entry> <organizer moodCode="EVN" classCode="BATTERY"> <templateId root= "16.840.1.565778.10...4.1" /> <id nullFlavor="NA" /> <code codeSystem="local" code="METABC" displayName="METABOLIC PANEL, COMPREHN" /> <statusCode code="completed" /> <component> <observation moodCode= "EVN" classCode="OBS"> <templateId root="16.840.1.962159.10..4.2 " /> <id nullFlavor="NA" /> <code codeSystem="local" code="K" displayName="POTASSIUM" /> <statusCode code="completed" /> < effectiveTime value="" /> <value unit="mmol/L" xsi:type="PQ " value="4.4" /> <referenceRange> <observationRange> <text>3.5-5.3</text> </observationRange> </ referenceRange> </observation> </component> <component> <observation moodCode="EVN" classCode="OBS"> <templateId root= "06.08.840.1.654503.02.09.22.4.2" /> <id nullFlavor="NA" /> < code codeSystem="local" code="eGFR" displayName="EST GFR (MDRD)" /> < statusCode code="completed" /> <effectiveTime value="" /> <value unit="mL/min" xsi:type="PQ" value="> 60" /> < referenceRange> <observationRange> <text>> 59</text> </observationRange> </referenceRange> </observation > </component> <component> <observation moodCode="EVN" classCode="OBS"> <templateId root="06.08.840.1.158462.10...4.2" /> <id nullFlavor="NA" /> <code codeSystem="local" code="GAP" displayName="ANION GAP" /> <statusCode code="completed" /> < effectiveTime value="" /> <value unit="mmol/L" xsi:type="PQ " value="9" /> <referenceRange> <observationRange> <text>5-15</text> </observationRange> </referenceRange > </observation> </component> <component> <observation moodCode="EVN" classCode="OBS"> <templateId root= "06.08.840.1.315285.10.20.22.4.2" /> <id nullFlavor="NA" /> < code codeSystem="local" code="eCrCl" displayName="EST CrCl (CG)" /> < statusCode code="completed" /> <effectiveTime value="" /> <value unit="mL/min" xsi:type="PQ" value="> 60" /> < referenceRange> <observationRange> <text>> 59</text> </observationRange> </referenceRange> </observation > </component> <component> <observation moodCode="EVN" classCode="OBS"> <templateId root="06.08.840.1.786367.10..4.2" /> <id nullFlavor="NA" /> <code codeSystem="local" code="GLU" displayName="GLUCOSE" /> <statusCode code="completed" /> < effectiveTime value="" /> <value unit="mg/dL" xsi:type="PQ " value="101" /> <interpretationCode codeSystem="local" code="*" /> <referenceRange> <observationRange> <text>70-99</ text> </observationRange> </referenceRange> </ observation> </component> <component> <observation moodCode= "EVN" classCode="OBS"> <templateId root="06.08.840.1.106661.10.20.22.4.2 " /> <id nullFlavor="NA" /> <code codeSystem="local" code="CA " displayName="CALCIUM" /> <statusCode code="completed" /> < effectiveTime value="" /> <value unit="mg/dL" xsi:type="PQ " value="9.2" /> <referenceRange> <observationRange> <text>8.5-10.1</text> </observationRange> </ referenceRange> </observation> </component> <component> <observation moodCode="EVN" classCode="OBS"> <templateId root= "06.08.840.1.450618.10..4.2" /> <id nullFlavor="NA" /> < code codeSystem="local" code="BUN" displayName="BLOOD UREA NITROGEN" /> <statusCode code="completed" /> <effectiveTime value="" / > <value unit="mg/dL" xsi:type="PQ" value="15" /> < referenceRange> <observationRange> <text>7-20</text> </observationRange> </referenceRange> </observation> </component> <component> <observation moodCode="EVN" classCode= "OBS"> <templateId root="06.08.840.1.770948.10..4.2" /> < id nullFlavor="NA" /> <code codeSystem="local" code="CREAT" displayName ="CREATININE" /> <statusCode code="completed" /> < effectiveTime value="" /> <value unit="mg/dL" xsi:type="PQ " value="0.7" /> <referenceRange> <observationRange> <text>0.6-1.0</text> </observationRange> </ referenceRange> </observation> </component> <component> <observation moodCode="EVN" classCode="OBS"> <templateId root= "06.08.840.1.632090..4.2" /> <id nullFlavor="NA" /> < code codeSystem="local" code="NA" displayName="SODIUM" /> <statusCode code="completed" /> <effectiveTime value="" /> < value unit="mmol/L" xsi:type="PQ" value="143" /> <referenceRange> <observationRange> <text>135-148</text> </ observationRange> </referenceRange> </observation> </ component> <component> <observation moodCode="EVN" classCode="OBS"> <templateId root="2.16.840.1.771553.02.09.22.4.2" /> <id nullFlavor="NA" /> <code codeSystem="local" code="CL" displayName= "CHLORIDE" /> <statusCode code="completed" /> <effectiveTime value="" /> <value unit="mmol/L" xsi:type="PQ" value="109" /> <referenceRange> <observationRange> <text>98 -110</text> </observationRange> </referenceRange> </ observation> </component> <component> <observation moodCode= "EVN" classCode="OBS"> <templateId root="216.840.1.845905.10...4.2 " /> <id nullFlavor="NA" /> <code codeSystem="local" code="AST " displayName="AST/SGOT" /> <statusCode code="completed" /> < effectiveTime value="" /> <value unit="Units/L" xsi:type= "PQ" value="12" /> <referenceRange> <observationRange> <text>10-37</text> </observationRange> </ referenceRange> </observation> </component> <component> <observation moodCode="EVN" classCode="OBS"> <templateId root= "216.840.1.952596.10..4.2" /> <id nullFlavor="NA" /> < code codeSystem="local" code="ALT" displayName="ALT/SGPT" /> < statusCode code="completed" /> <effectiveTime value="" /> <value unit="Units/L" xsi:type="PQ" value="20" /> < referenceRange> <observationRange> <text>< 66</text> </observationRange> </referenceRange> </observation > </component> <component> <observation moodCode="EVN" classCode="OBS"> <templateId root="16.840.1.862233.10.4.2" /> <id nullFlavor="NA" /> <code codeSystem="local" code="CO2" displayName="CARBON DIOXIDE" /> <statusCode code="completed" /> <effectiveTime value="" /> <value unit="mmol/L" xsi:type ="PQ" value="25" /> <referenceRange> <observationRange> <text>21-32</text> </observationRange> </ referenceRange> </observation> </component> <component> <observation moodCode="EVN" classCode="OBS"> <templateId root= "06.08.840.1.952603.10.22.4.2" /> <id nullFlavor="NA" /> < code codeSystem="local" code="TP" displayName="TOTAL PROTEIN" /> < statusCode code="completed" /> <effectiveTime value="" /> <value unit="gm/dL" xsi:type="PQ" value="7.7" /> < referenceRange> <observationRange> <text>6.4-8.2</text> </observationRange> </referenceRange> </observation > </component> <component> <observation moodCode="EVN" classCode="OBS"> <templateId root="216.840.1.035577.10.4.2" /> <id nullFlavor="NA" /> <code codeSystem="local" code="ALB" displayName="ALBUMIN" /> <statusCode code="completed" /> < effectiveTime value="" /> <value unit="gm/dL" xsi:type="PQ " value="4.0" /> <referenceRange> <observationRange> <text>3.4-5.0</text> </observationRange> </ referenceRange> </observation> </component> <component> <observation moodCode="EVN" classCode="OBS"> <templateId root= "16.840.1.149589.02.09.22.4.2" /> <id nullFlavor="NA" /> < code codeSystem="local" code="BILTOT" displayName="BILI TOTAL" /> < statusCode code="completed" /> <effectiveTime value="" /> <value unit="mg/dL" xsi:type="PQ" value="0.2" /> < referenceRange> <observationRange> <text>0.0-1.0</text> </observationRange> </referenceRange> </observation > </component> <component> <observation moodCode="EVN" classCode="OBS"> <templateId root="16.840.1.730922...4.2" /> <id nullFlavor="NA" /> <code codeSystem="local" code="ALKP" displayName="ALKALINE PHOSPHATASE TOTAL" /> <statusCode code="completed " /> <effectiveTime value="" /> <value unit="IU/L " xsi:type="PQ" value="63" /> <referenceRange> < observationRange> <text>45-117</text> </observationRange > </referenceRange> </observation> </component> </ organizer> </entry> <entry> <organizer moodCode="EVN" classCode="BATTERY"> <templateId root="06.08.840.1.795414.10..22.4.1" /> <id nullFlavor= "NA" /> <code codeSystem="local" code="PREGN" displayName=" Screen , Urine NPT" /> <statusCode code="completed" /> <component> < observation moodCode="EVN" classCode="OBS"> <templateId root= "06.08.840.1.796452.10...4.2" /> <id nullFlavor="NA" /> < code codeSystem="local" code="PREGN" displayName=" Screen, Urine NPT" / > <statusCode code="completed" /> <effectiveTime value= "333514315072" /> <value unit="NA" xsi:type="PQ" value="Negative" /> <referenceRange> <observationRange> <text /> </observationRange> </referenceRange> </observation> </component> </organizer> </entry> <entry> <organizer moodCode="EVN " classCode="BATTERY"> <templateId root="06.08.840.1.583157.10..22.4.1" / > <id nullFlavor="NA" /> <code codeSystem="local" code="CBCD" displayName="CBC W/DIFF" /> <statusCode code="completed" /> <component > <observation moodCode="EVN" classCode="OBS"> <templateId root= "06.08.840.1.329177.10..22.4.2" /> <id nullFlavor="NA" /> < code codeSystem="local" code="BA#" displayName="BASOPHIL #" /> < statusCode code="completed" /> <effectiveTime value="864770660641" /> <value unit="k/cumm" xsi:type="PQ" value="0.0" /> < referenceRange> <observationRange> <text>0.0-0.2</text> </observationRange> </referenceRange> </observation > </component> <component> <observation moodCode="EVN" classCode="OBS"> <templateId root="2.16.840.1.215754...4.2" /> <id nullFlavor="NA" /> <code codeSystem="local" code="BA% " displayName="BASOPHIL %" /> <statusCode code="completed" /> <effectiveTime value="249458243210" /> <value unit="%" xsi: type="PQ" value="0.1" /> <referenceRange> <observationRange > <text>0-1</text> </observationRange> </ referenceRange> </observation> </component> <component> <observation moodCode="EVN" classCode="OBS"> <templateId root= "2.16.840.1.421256....4.2" /> <id nullFlavor="NA" /> < code codeSystem="local" code="CBCCOM" displayName="COMMENT" /> < statusCode code="completed" /> <effectiveTime value="645721423497" /> <value unit="" xsi:type="PQ" value="REVIEWED" /> < referenceRange> <observationRange> <text /> < /observationRange> </referenceRange> </observation> </ component> <component> <observation moodCode="EVN" classCode="OBS"> <templateId root="06.08.840.1.638019.10..4.2" /> <id nullFlavor="NA" /> <code codeSystem="local" code="EO#" displayName= "EOSINOPHIL #" /> <statusCode code="completed" /> < effectiveTime value="338371123059" /> <value unit="k/cumm" xsi:type="PQ " value="0.0" /> <interpretationCode codeSystem="local" code="*" /> <referenceRange> <observationRange> <text>0.1-0.5 </text> </observationRange> </referenceRange> </ observation> </component> <component> <observation moodCode= "EVN" classCode="OBS"> <templateId root="06.08.840.1.814986.10.4.2 " /> <id nullFlavor="NA" /> <code codeSystem="local" code="EO& #37;" displayName="EOSINOPHIL %" /> <statusCode code="completed" / > <effectiveTime value="303888097154" /> <value unit="%" xsi:type="PQ" value="0.0" /> <interpretationCode codeSystem="local" code="*" /> <referenceRange> <observationRange> <text>2-4</text> </observationRange> </referenceRange> </observation> </component> <component> <observation moodCode="EVN" classCode="OBS"> <templateId root= "06.08.840.1.628042.10.4.2" /> <id nullFlavor="NA" /> < code codeSystem="local" code="GR#" displayName="GRANULOCYTE #" /> < statusCode code="completed" /> <effectiveTime value="559911775080" /> <value unit="k/cumm" xsi:type="PQ" value="7.5" /> < referenceRange> <observationRange> <text>2.0-9.0</text> </observationRange> </referenceRange> </observation > </component> <component> <observation moodCode="EVN" classCode="OBS"> <templateId root="216.840.1.024939.10..4.2" /> <id nullFlavor="NA" /> <code codeSystem="local" code="GR% " displayName="GRANULOCYTE %" /> <statusCode code="completed" /> <effectiveTime value="887036668572" /> <value unit="%" xsi: type="PQ" value="85.1" /> <interpretationCode codeSystem="local" code= "*" /> <referenceRange> <observationRange> < text>50-75</text> </observationRange> </referenceRange> </observation> </component> <component> <observation moodCode="EVN" classCode="OBS"> <templateId root= "06.08.840.1.972537.02.09.224.2" /> <id nullFlavor="NA" /> < code codeSystem="local" code="LY#" displayName="LYMPHOCYTE #" /> < statusCode code="completed" /> <effectiveTime value="025641273419" /> <value unit="k/cumm" xsi:type="PQ" value="1.1" /> < referenceRange> <observationRange> <text>1.0-4.0</text> </observationRange> </referenceRange> </observation > </component> <component> <observation moodCode="EVN" classCode="OBS"> <templateId root="216.840.1.402450.02.09.22.4.2" /> <id nullFlavor="NA" /> <code codeSystem="local" code="LY% " displayName="LYMPHOCYTE %" /> <statusCode code="completed" /> <effectiveTime value="" /> <value unit="%" xsi: type="PQ" value="13.0" /> <interpretationCode codeSystem="local" code= "*" /> <referenceRange> <observationRange> < text>20-30</text> </observationRange> </referenceRange> </observation> </component> <component> <observation moodCode="EVN" classCode="OBS"> <templateId root= "216.840.1.743401.10..4.2" /> <id nullFlavor="NA" /> < code codeSystem="local" code="MCH" displayName="MEAN CELL HGB" /> < statusCode code="completed" /> <effectiveTime value="927444844510" /> <value unit="pg" xsi:type="PQ" value="33.5" /> < interpretationCode codeSystem="local" code="*" /> <referenceRange> <observationRange> <text>27.0-33.0</text> </ observationRange> </referenceRange> </observation> </ component> <component> <observation moodCode="EVN" classCode="OBS"> <templateId root="06.08.840.1.518756.10.2022.4.2" /> <id nullFlavor="NA" /> <code codeSystem="local" code="MCHC" displayName= "MEAN CELL HGB CONCENTRATION" /> <statusCode code="completed" /> <effectiveTime value="126097411972" /> <value unit="g/dL" xsi:type= "PQ" value="32.7" /> <referenceRange> <observationRange> <text>32.0-37.0</text> </observationRange> </ referenceRange> </observation> </component> <component> <observation moodCode="EVN" classCode="OBS"> <templateId root= "840.1.705949.10.20.22.4.2" /> <id nullFlavor="NA" /> < code codeSystem="local" code="MCV" displayName="MEAN CELL VOLUME" /> < statusCode code="completed" /> <effectiveTime value="845050715324" /> <value unit="fl" xsi:type="PQ" value="102.5" /> < interpretationCode codeSystem="local" code="*" /> <referenceRange> <observationRange> <text>80.0-100.0</text> </ observationRange> </referenceRange> </observation> </ component> <component> <observation moodCode="EVN" classCode="OBS"> <templateId root="840.1.014676.1022.4.2" /> <id nullFlavor="NA" /> <code codeSystem="local" code="MO#" displayName= "MONOCYTE #" /> <statusCode code="completed" /> < effectiveTime value="495139593579" /> <value unit="k/cumm" xsi:type="PQ " value="0.2" /> <referenceRange> <observationRange> <text>0.1-1.0</text> </observationRange> </ referenceRange> </observation> </component> <component> <observation moodCode="EVN" classCode="OBS"> <templateId root= "06.08.840.1.263778.10.20.22.4.2" /> <id nullFlavor="NA" /> < code codeSystem="local" code="MO%" displayName="MONOCYTE %" /> <statusCode code="completed" /> <effectiveTime value="440569648129" /> <value unit="%" xsi:type="PQ" value="1.8" /> < interpretationCode codeSystem="local" code="*" /> <referenceRange> <observationRange> <text>4-6</text> </ observationRange> </referenceRange> </observation> </ component> <component> <observation moodCode="EVN" classCode="OBS"> <templateId root="2.16.840.1.985846.10.20.22.4.2" /> <id nullFlavor="NA" /> <code codeSystem="local" code="RBC" displayName=" RED BLOOD CELL" /> <statusCode code="completed" /> < effectiveTime value="917904199830" /> <value unit="m/cumm" xsi:type="PQ " value="4.03" /> <referenceRange> <observationRange> <text>4.00-6.00</text> </observationRange> </ referenceRange> </observation> </component> <component> <observation moodCode="EVN" classCode="OBS"> <templateId root= "2.16.840.1.358052.10.20.22.4.2" /> <id nullFlavor="NA" /> < code codeSystem="local" code="RDW" displayName="RED CELL DISTRIBUTION WIDTH" /> <statusCode code="completed" /> <effectiveTime value= "221978665256" /> <value unit="%" xsi:type="PQ" value="12.7" /> <referenceRange> <observationRange> <text>11.0- 15.6</text> </observationRange> </referenceRange> </ observation> </component> <component> <observation moodCode= "EVN" classCode="OBS"> <templateId root="16.840.1.727264.10.20.22.4.2 " /> <id nullFlavor="NA" /> <code codeSystem="local" code="WBC " displayName="WHITE BLOOD CELL" /> <statusCode code="completed" /> <effectiveTime value="661140103705" /> <value unit="k/cumm" xsi: type="PQ" value="8.8" /> <referenceRange> <observationRange > <text>5.0-10.0</text> </observationRange> </ referenceRange> </observation> </component> <component> <observation moodCode="EVN" classCode="OBS"> <templateId root= "06.08.840.1.909279.10.22.4.2" /> <id nullFlavor="NA" /> < code codeSystem="local" code="HGBT" displayName="HEMOGLOBIN" /> < statusCode code="completed" /> <effectiveTime value="048131888228" /> <value unit="gm/dL" xsi:type="PQ" value="13.5" /> < referenceRange> <observationRange> <text>12.0-16.0</text > </observationRange> </referenceRange> </observation > </component> <component> <observation moodCode="EVN" classCode="OBS"> <templateId root="06.08.840.1.506757.10.20.22.4.2" /> <id nullFlavor="NA" /> <code codeSystem="local" code="HCTT" displayName="HEMATOCRIT" /> <statusCode code="completed" /> < effectiveTime value="383904163904" /> <value unit="%" xsi:type="PQ " value="41.3" /> <referenceRange> <observationRange> <text>37.0-47.0</text> </observationRange> </ referenceRange> </observation> </component> <component> <observation moodCode="EVN" classCode="OBS"> <templateId root= "06.08.840.1.581603.1022.4.2" /> <id nullFlavor="NA" /> < code codeSystem="local" code="PLTT" displayName="PLATELET COUNT" /> < statusCode code="completed" /> <effectiveTime value="282581870963" /> <value unit="k/cumm" xsi:type="PQ" value="490" /> < interpretationCode codeSystem="local" code="*" /> <referenceRange> <observationRange> <text>150-450</text> </ observationRange> </referenceRange> </observation> </ component> </organizer> </entry> <entry> <organizer moodCode="EVN" classCode="BATTERY"> <templateId root="06.08.840.1.563946.10..22.4.1" /> <id nullFlavor="NA" /> <code codeSystem="local" code="METABC" displayName="METABOLIC PANEL, COMPREHN" /> <statusCode code="completed" /> <component> <observation moodCode="EVN" classCode="OBS"> < templateId root="06.08.840.1.548936.1022.4.2" /> <id nullFlavor="NA " /> <code codeSystem="local" code="K" displayName="POTASSIUM" /> <statusCode code="completed" /> <effectiveTime value="776904055632 " /> <value unit="mmol/L" xsi:type="PQ" value="3.7" /> < referenceRange> <observationRange> <text>3.5-5.3</text> </observationRange> </referenceRange> </observation > </component> <component> <observation moodCode="EVN" classCode="OBS"> <templateId root="216.840.1.795102.10.4.2" /> <id nullFlavor="NA" /> <code codeSystem="local" code="eGFR" displayName="EST GFR (MDRD)" /> <statusCode code="completed" /> <effectiveTime value="" /> <value unit="mL/min" xsi:type ="PQ" value="> 60" /> <referenceRange> <observationRange > <text>> 59</text> </observationRange> </ referenceRange> </observation> </component> <component> <observation moodCode="EVN" classCode="OBS"> <templateId root= "06.08.840.1.211443.02.09.22.4.2" /> <id nullFlavor="NA" /> < code codeSystem="local" code="GAP" displayName="ANION GAP" /> < statusCode code="completed" /> <effectiveTime value="" /> <value unit="mmol/L" xsi:type="PQ" value="13" /> < referenceRange> <observationRange> <text>5-15</text> </observationRange> </referenceRange> </observation> </component> <component> <observation moodCode="EVN" classCode= "OBS"> <templateId root="16.840.1.351301.10..4.2" /> < id nullFlavor="NA" /> <code codeSystem="local" code="eCrCl" displayName ="EST CrCl (CG)" /> <statusCode code="completed" /> < effectiveTime value="" /> <value unit="mL/min" xsi:type="PQ " value="> 60" /> <referenceRange> <observationRange> <text>> 59</text> </observationRange> </ referenceRange> </observation> </component> <component> <observation moodCode="EVN" classCode="OBS"> <templateId root= "06.08.840.1.311399.10.20.22.4.2" /> <id nullFlavor="NA" /> < code codeSystem="local" code="GLU" displayName="GLUCOSE" /> < statusCode code="completed" /> <effectiveTime value="010831778127" /> <value unit="mg/dL" xsi:type="PQ" value="125" /> < interpretationCode codeSystem="local" code="*" /> <referenceRange> <observationRange> <text>70-99</text> </ observationRange> </referenceRange> </observation> </ component> <component> <observation moodCode="EVN" classCode="OBS"> <templateId root="840.1.975695.10..4.2" /> <id nullFlavor="NA" /> <code codeSystem="local" code="CA" displayName= "CALCIUM" /> <statusCode code="completed" /> <effectiveTime value="202123155027" /> <value unit="mg/dL" xsi:type="PQ" value="9.6" / > <referenceRange> <observationRange> <text>8.5 -10.1</text> </observationRange> </referenceRange> </ observation> </component> <component> <observation moodCode= "EVN" classCode="OBS"> <templateId root="06.08.840.1.973587.10.20.22.4.2 " /> <id nullFlavor="NA" /> <code codeSystem="local" code="BUN " displayName="BLOOD UREA NITROGEN" /> <statusCode code="completed" /> <effectiveTime value="291799425483" /> <value unit="mg/dL" xsi:type="PQ" value="7" /> <referenceRange> < observationRange> <text>7-20</text> </observationRange> </referenceRange> </observation> </component> < component> <observation moodCode="EVN" classCode="OBS"> < templateId root="216.840.1.637453.10..4.2" /> <id nullFlavor="NA " /> <code codeSystem="local" code="CREAT" displayName="CREATININE" /> <statusCode code="completed" /> <effectiveTime value= "175690845486" /> <value unit="mg/dL" xsi:type="PQ" value="0.7" /> <referenceRange> <observationRange> <text>0.6-1.0< /text> </observationRange> </referenceRange> </ observation> </component> <component> <observation moodCode= "EVN" classCode="OBS"> <templateId root="216.840.1.725498...4.2 " /> <id nullFlavor="NA" /> <code codeSystem="local" code="NA " displayName="SODIUM" /> <statusCode code="completed" /> < effectiveTime value="925786036165" /> <value unit="mmol/L" xsi:type="PQ " value="139" /> <referenceRange> <observationRange> <text>135-148</text> </observationRange> </ referenceRange> </observation> </component> <component> <observation moodCode="EVN" classCode="OBS"> <templateId root= "16.840.1.939961.02.09.22.4.2" /> <id nullFlavor="NA" /> < code codeSystem="local" code="CL" displayName="CHLORIDE" /> < statusCode code="completed" /> <effectiveTime value="571653729209" /> <value unit="mmol/L" xsi:type="PQ" value="103" /> < referenceRange> <observationRange> <text>98-110</text> </observationRange> </referenceRange> </observation> </component> <component> <observation moodCode="EVN" classCode ="OBS"> <templateId root="2.16.840.1.930126.10...4.2" /> < id nullFlavor="NA" /> <code codeSystem="local" code="AST" displayName= "AST/SGOT" /> <statusCode code="completed" /> <effectiveTime value="681889436395" /> <value unit="Units/L" xsi:type="PQ" value="16" /> <referenceRange> <observationRange> <text>10 -37</text> </observationRange> </referenceRange> </ observation> </component> <component> <observation moodCode= "EVN" classCode="OBS"> <templateId root="2.16.840.1.845552.10..22.4.2 " /> <id nullFlavor="NA" /> <code codeSystem="local" code="ALT " displayName="ALT/SGPT" /> <statusCode code="completed" /> < effectiveTime value="806482933140" /> <value unit="Units/L" xsi:type= "PQ" value="18" /> <referenceRange> <observationRange> <text>< 66</text> </observationRange> </ referenceRange> </observation> </component> <component> <observation moodCode="EVN" classCode="OBS"> <templateId root= "16.840.1.390578.10.20.22.4.2" /> <id nullFlavor="NA" /> < code codeSystem="local" code="CO2" displayName="CARBON DIOXIDE" /> < statusCode code="completed" /> <effectiveTime value="291299256765" /> <value unit="mmol/L" xsi:type="PQ" value="23" /> < referenceRange> <observationRange> <text>21-32</text> </observationRange> </referenceRange> </observation> </component> <component> <observation moodCode="EVN" classCode= "OBS"> <templateId root="06.08.840.1.630230.10.22.4.2" /> < id nullFlavor="NA" /> <code codeSystem="local" code="TP" displayName= "TOTAL PROTEIN" /> <statusCode code="completed" /> < effectiveTime value="594838294475" /> <value unit="gm/dL" xsi:type="PQ " value="8.6" /> <interpretationCode codeSystem="local" code="*" /> <referenceRange> <observationRange> <text>6.4-8.2 </text> </observationRange> </referenceRange> </ observation> </component> <component> <observation moodCode= "EVN" classCode="OBS"> <templateId root="06.08.840.1.494753.10.2022.4.2 " /> <id nullFlavor="NA" /> <code codeSystem="local" code="ALB " displayName="ALBUMIN" /> <statusCode code="completed" /> < effectiveTime value="481191567105" /> <value unit="gm/dL" xsi:type="PQ " value="4.2" /> <referenceRange> <observationRange> <text>3.4-5.0</text> </observationRange> </ referenceRange> </observation> </component> <component> <observation moodCode="EVN" classCode="OBS"> <templateId root= "16.840.1.651848.10.20.22.4.2" /> <id nullFlavor="NA" /> < code codeSystem="local" code="BILTOT" displayName="BILI TOTAL" /> < statusCode code="completed" /> <effectiveTime value="620047306498" /> <value unit="mg/dL" xsi:type="PQ" value="0.3" /> < referenceRange> <observationRange> <text>0.0-1.0</text> </observationRange> </referenceRange> </observation > </component> <component> <observation moodCode="EVN" classCode="OBS"> <templateId root="06.08.840.1.654096.10..4.2" /> <id nullFlavor="NA" /> <code codeSystem="local" code="ALKP" displayName="ALKALINE PHOSPHATASE TOTAL" /> <statusCode code="completed " /> <effectiveTime value="026676120474" /> <value unit="IU/L " xsi:type="PQ" value="62" /> <referenceRange> < observationRange> <text>45-117</text> </observationRange > </referenceRange> </observation> </component> </ organizer> </entry> <entry> <organizer moodCode="EVN" classCode="BATTERY"> <templateId root="06.08.840.1.747106.10.20.22.4.1" /> <id nullFlavor= "NA" /> <code codeSystem="local" code="LIP" displayName="LIPASE" /> < statusCode code="completed" /> <component> <observation moodCode= "EVN" classCode="OBS"> <templateId root="216.840.1.072601.10..22.4.2 " /> <id nullFlavor="NA" /> <code codeSystem="local" code="LIP " displayName="LIPASE" /> <statusCode code="completed" /> < effectiveTime value="630887588940" /> <value unit="Units/L" xsi:type= "PQ" value="97" /> <referenceRange> <observationRange> <text>73-393</text> </observationRange> </ referenceRange> </observation> </component> </organizer> </entry > <entry> <organizer moodCode="EVN" classCode="BATTERY"> <templateId root="216.840.1.037441.10..22.4.1" /> <id nullFlavor="NA" /> <code codeSystem="local" code="PREG" displayName=" TEST, SERUM" /> < statusCode code="completed" /> <component> <observation moodCode= "EVN" classCode="OBS"> <templateId root="216.840.1.918774.10.20.22.4.2 " /> <id nullFlavor="NA" /> <code codeSystem="local" code= "PREG" displayName=" TEST, SERUM" /> <statusCode code= "completed" /> <effectiveTime value="688601735204" /> <value unit="" xsi:type="PQ" value="NEGATIVE" /> <referenceRange> < observationRange> <text>NEGATIVE</text> </ observationRange> </referenceRange> </observation> </ component> </organizer> </entry> <entry> <organizer moodCode="EVN" classCode="BATTERY"> <templateId root="840.1.673047.10..4.1" /> <id nullFlavor="NA" /> <code codeSystem="local" code="HELICOSCR" displayName="AB H.PYLORI SCREEN" /> <statusCode code="completed" /> < component> <observation moodCode="EVN" classCode="OBS"> < templateId root="06.08.840.1.147381.02.09.22.4.2" /> <id nullFlavor="NA " /> <code codeSystem="local" code="HELICOSCR" displayName="AB H.PYLORI SCREEN" /> <statusCode code="completed" /> < effectiveTime value="888286584718" /> <value unit="" xsi:type="PQ" value="NEGATIVE" /> <referenceRange> <observationRange> <text>NEGATIVE</text> </observationRange> </ referenceRange> </observation> </component> </organizer> </entry > <entry> <organizer moodCode="EVN" classCode="BATTERY"> <templateId root="06.08.840.1.297534.02.09.22.4.1" /> <id nullFlavor="NA" /> <code codeSystem="local" code="UA" displayName="URINALYSIS, ROUTINE" /> < statusCode code="completed" /> <component> <observation moodCode= "EVN" classCode="OBS"> <templateId root="16.840.1.380677.1022.4.2 " /> <id nullFlavor="NA" /> <code codeSystem="local" code= "LEUESU" displayName="UA LEUKOCYTE ESTERASE DIPSTICK" /> <statusCode code="completed" /> <effectiveTime value="874857908872" /> < value unit="" xsi:type="PQ" value="NEGATIVE" /> <referenceRange> <observationRange> <text>NEGATIVE</text> </ observationRange> </referenceRange> </observation> </ component> <component> <observation moodCode="EVN" classCode="OBS"> <templateId root="16.840.1.593332.10.4.2" /> <id nullFlavor="NA" /> <code codeSystem="local" code="NITRIU" displayName= "UA NITRITE DIPSTICK" /> <statusCode code="completed" /> < effectiveTime value="983481415766" /> <value unit="" xsi:type="PQ" value="NEGATIVE" /> <referenceRange> <observationRange> <text>NEGATIVE</text> </observationRange> </ referenceRange> </observation> </component> <component> <observation moodCode="EVN" classCode="OBS"> <templateId root= "06.08.840.1.048465.02.09.22.4.2" /> <id nullFlavor="NA" /> < code codeSystem="local" code="PROTEIU" displayName="UA PROTEIN DIPSTICK" /> <statusCode code="completed" /> <effectiveTime value= "261759207036" /> <value unit="" xsi:type="PQ" value="NEGATIVE" /> <referenceRange> <observationRange> <text>NEGATIVE </text> </observationRange> </referenceRange> </ observation> </component> <component> <observation moodCode= "EVN" classCode="OBS"> <templateId root="06.08.840.1.905433.02.09.22.4.2 " /> <id nullFlavor="NA" /> <code codeSystem="local" code= "DGLUU" displayName="UA GLUCOSE DIPSTICK" /> <statusCode code= "completed" /> <effectiveTime value="343528022989" /> <value unit="" xsi:type="PQ" value="NEGATIVE" /> <referenceRange> < observationRange> <text>NEGATIVE</text> </ observationRange> </referenceRange> </observation> </ component> <component> <observation moodCode="EVN" classCode="OBS"> <templateId root="16.840.1.131091.10.22.4.2" /> <id nullFlavor="NA" /> <code codeSystem="local" code="KETONU" displayName= "UA KETONE DIPSTICK" /> <statusCode code="completed" /> < effectiveTime value="009044656675" /> <value unit="" xsi:type="PQ" value="NEGATIVE" /> <referenceRange> <observationRange> <text>NEGATIVE</text> </observationRange> </ referenceRange> </observation> </component> <component> <observation moodCode="EVN" classCode="OBS"> <templateId root= "06.08.840.1.368302.22.4.2" /> <id nullFlavor="NA" /> < code codeSystem="local" code="UROBILU" displayName="UA UROBILINOGEN DIPSTICK" / > <statusCode code="completed" /> <effectiveTime value= "519788763210" /> <value unit="" xsi:type="PQ" value="NORMAL" /> <referenceRange> <observationRange> <text>NORMAL</ text> </observationRange> </referenceRange> </ observation> </component> <component> <observation moodCode= "EVN" classCode="OBS"> <templateId root="06.08.840.1.405865.102022.4.2 " /> <id nullFlavor="NA" /> <code codeSystem="local" code= "BILU" displayName="UA BILIRUBIN DIPSTICK" /> <statusCode code= "completed" /> <effectiveTime value="010358886601" /> <value unit="" xsi:type="PQ" value="NEGATIVE" /> <referenceRange> < observationRange> <text>NEGATIVE</text> </ observationRange> </referenceRange> </observation> </ component> <component> <observation moodCode="EVN" classCode="OBS"> <templateId root="16.840.1.154147.02.09.22.4.2" /> <id nullFlavor="NA" /> <code codeSystem="local" code="SPENCER" displayName="UA BLOOD DIPSTICK" /> <statusCode code="completed" /> < effectiveTime value="046171628246" /> <value unit="" xsi:type="PQ" value="1+" /> <interpretationCode codeSystem="local" code="*" /> <referenceRange> <observationRange> <text>NEGATIVE</ text> </observationRange> </referenceRange> </ observation> </component> <component> <observation moodCode= "EVN" classCode="OBS"> <templateId root="06.08.840.1.628927.10..22.4.2 " /> <id nullFlavor="NA" /> <code codeSystem="local" code= "SPGRU" displayName="UA SPECIFIC GRAVITY" /> <statusCode code= "completed" /> <effectiveTime value="432564528209" /> <value unit="" xsi:type="PQ" value="1.015" /> <referenceRange> < observationRange> <text>1.015-1.025</text> </ observationRange> </referenceRange> </observation> </ component> <component> <observation moodCode="EVN" classCode="OBS"> <templateId root="06.08.840.1.533484.02.09.22.4.2" /> <id nullFlavor="NA" /> <code codeSystem="local" code="FEROZ" displayName="UR PH" /> <statusCode code="completed" /> <effectiveTime value= "704336536705" /> <value unit="" xsi:type="PQ" value="7.0" /> <referenceRange> <observationRange> <text>5.0-7.0</text > </observationRange> </referenceRange> </observation > </component> </organizer> </entry> <entry> <organizer moodCode= "EVN" classCode="BATTERY"> <templateId root="06.08.840.1.088083.02.09.22.4.1 " /> <id nullFlavor="NA" /> <code codeSystem="local" code="UAMICRO" displayName="UA MICROSCOPIC" /> <statusCode code="completed" /> < component> <observation moodCode="EVN" classCode="OBS"> < templateId root="06.08.840.1.520300.02.09.22.4.2" /> <id nullFlavor="NA " /> <code codeSystem="local" code="BACU" displayName="UA BACTERIA" /> <statusCode code="completed" /> <effectiveTime value= "639136602901" /> <value unit="" xsi:type="PQ" value="2+" /> < interpretationCode codeSystem="local" code="*" /> <referenceRange> <observationRange> <text>NEGATIVE</text> </ observationRange> </referenceRange> </observation> </ component> <component> <observation moodCode="EVN" classCode="OBS"> <templateId root="06.08.840.1.712275.02.09.22.4.2" /> <id nullFlavor="NA" /> <code codeSystem="local" code="EPIU" displayName=" UA EPITHELIAL CELLS" /> <statusCode code="completed" /> < effectiveTime value="453956747675" /> <value unit="epi/hpf" xsi:type= "PQ" value="3+" /> <interpretationCode codeSystem="local" code="*" /> <referenceRange> <observationRange> <text>0 - 1 +</text> </observationRange> </referenceRange> </ observation> </component> <component> <observation moodCode= "EVN" classCode="OBS"> <templateId root="2.16.840.1.271208.10...4.2 " /> <id nullFlavor="NA" /> <code codeSystem="local" code= "RBCU" displayName="UA RBC" /> <statusCode code="completed" /> <effectiveTime value="700801397025" /> <value unit="rbc/hpf" xsi:type ="PQ" value="0-3" /> <referenceRange> <observationRange> <text>0 - 3</text> </observationRange> </ referenceRange> </observation> </component> <component> <observation moodCode="EVN" classCode="OBS"> <templateId root= "2.16.840.1.732885.10...4.2" /> <id nullFlavor="NA" /> < code codeSystem="local" code="UAVOL" displayName="UA VOLUME FOR EXAM" /> <statusCode code="completed" /> <effectiveTime value="312217735682" /> <value unit="mL" xsi:type="PQ" value="12.0" /> < referenceRange> <observationRange> <text>(12mL STD)</ text> </observationRange> </referenceRange> </ observation> </component> <component> <observation moodCode= "EVN" classCode="OBS"> <templateId root="2.16.840.1.848649.10.20.22.4.2 " /> <id nullFlavor="NA" /> <code codeSystem="local" code= "WBCU" displayName="UA WBC" /> <statusCode code="completed" /> <effectiveTime value="283171872954" /> <value unit="wbc/hpf" xsi:type ="PQ" value="0" /> <referenceRange> <observationRange> <text>0 - 5</text> </observationRange> </ referenceRange> </observation> </component> </organizer> </entry > <entry> <organizer moodCode="EVN" classCode="BATTERY"> <templateId root="2.16.840.1.270178.10.20.22.4.1" /> <id nullFlavor="NA" /> <code codeSystem="local" code="12494-4" displayName="Automated blood complete blood count (hemogram) panel" /> <statusCode code="completed" /> <component > <observation moodCode="EVN" classCode="OBS"> <templateId root= "2.16.840.1.016881.10.20.22.4.2" /> <id nullFlavor="NA" /> < code codeSystem="local" code="6690-2" displayName="Blood leukocytes automated count (number/volume)" /> <statusCode code="completed" /> < effectiveTime value="094945371171" /> <value unit="10*3/uL" xsi:type= "PQ" value="4.9" /> <referenceRange> <observationRange> <text>4.3-11.0</text> </observationRange> </ referenceRange> </observation> </component> <component> <observation moodCode="EVN" classCode="OBS"> <templateId root= "2.16.840.1.809708.10.20.22.4.2" /> <id nullFlavor="NA" /> < code codeSystem="local" code="789-8" displayName="Blood erythrocytes automated count (number/volume)" /> <statusCode code="completed" /> < effectiveTime value="244968815252" /> <value unit="10*6/uL" xsi:type= "PQ" value="3.43" /> <interpretationCode codeSystem="local" code="" / > <referenceRange> <observationRange> <text> 4.35-5.85</text> </observationRange> </referenceRange> </observation> </component> <component> <observation moodCode="EVN" classCode="OBS"> <templateId root= "216.840.1.672821.10..22.4.2" /> <id nullFlavor="NA" /> < code codeSystem="local" code="73926-8" displayName="Venous blood hemoglobin measurement (mass/volume)" /> <statusCode code="completed" /> <effectiveTime value="836870350916" /> <value unit="g/dL" xsi:type="PQ " value="11.8" /> <referenceRange> <observationRange> <text>11.5-16.0</text> </observationRange> </ referenceRange> </observation> </component> <component> <observation moodCode="EVN" classCode="OBS"> <templateId root= "2.16.840.1.964641.10.20.22.4.2" /> <id nullFlavor="NA" /> < code codeSystem="local" code="82321-5" displayName="Blood hematocrit (volume fraction)" /> <statusCode code="completed" /> <effectiveTime value="212056532239" /> <value unit="%" xsi:type="PQ" value="36" / > <referenceRange> <observationRange> <text>35- 52</text> </observationRange> </referenceRange> </ observation> </component> <component> <observation moodCode= "EVN" classCode="OBS"> <templateId root="216.840.1.618186.10..4.2 " /> <id nullFlavor="NA" /> <code codeSystem="local" code="787 -2" displayName="Automated erythrocyte mean corpuscular volume" /> < statusCode code="completed" /> <effectiveTime value="061945946470" /> <value unit="[foz_us]" xsi:type="PQ" value="104" /> < interpretationCode codeSystem="local" code="" /> <referenceRange> <observationRange> <text>80-99</text> </ observationRange> </referenceRange> </observation> </ component> <component> <observation moodCode="EVN" classCode="OBS"> <templateId root="216.840.1.980856.10..4.2" /> <id nullFlavor="NA" /> <code codeSystem="local" code="785-6" displayName= "Automated erythrocyte mean corpuscular hemoglobin (mass per erythrocyte)" /> <statusCode code="completed" /> <effectiveTime value= "048863507164" /> <value unit="pg" xsi:type="PQ" value="34" /> <referenceRange> <observationRange> <text>25-34</text > </observationRange> </referenceRange> </observation > </component> <component> <observation moodCode="EVN" classCode="OBS"> <templateId root="216.840.1.638116...4.2" /> <id nullFlavor="NA" /> <code codeSystem="local" code="786-4" displayName="Automated erythrocyte mean corpuscular hemoglobin concentration measurement (mass/volume)" /> <statusCode code="completed" /> <effectiveTime value="221810182202" /> <value unit="g/dL" xsi:type="PQ " value="33" /> <referenceRange> <observationRange> <text>32-36</text> </observationRange> </ referenceRange> </observation> </component> <component> <observation moodCode="EVN" classCode="OBS"> <templateId root= "2.16.840.1.790768.10..22.4.2" /> <id nullFlavor="NA" /> < code codeSystem="local" code="788-0" displayName="Automated erythrocyte distribution width ratio" /> <statusCode code="completed" /> < effectiveTime value="250944333824" /> <value unit="%" xsi:type="PQ " value="13.3" /> <referenceRange> <observationRange> <text>10.0-14.5</text> </observationRange> </ referenceRange> </observation> </component> <component> <observation moodCode="EVN" classCode="OBS"> <templateId root= "2.16.840.1.871438.10..22.4.2" /> <id nullFlavor="NA" /> < code codeSystem="local" code="777-3" displayName="Automated blood platelet count (count/volume)" /> <statusCode code="completed" /> < effectiveTime value="685123510773" /> <value unit="10*3/uL" xsi:type= "PQ" value="302" /> <referenceRange> <observationRange> <text>130-400</text> </observationRange> </ referenceRange> </observation> </component> <component> <observation moodCode="EVN" classCode="OBS"> <templateId root= "2.16.840.1.802952.10..22.4.2" /> <id nullFlavor="NA" /> < code codeSystem="local" code="85840-3" displayName="Automated blood platelet mean volume measurement" /> <statusCode code="completed" /> < effectiveTime value="956387158625" /> <value unit="[chi [facility]_]" xsi:type= "PQ" value="8.5" /> <referenceRange> <observationRange> <text>7.4-10.4</text> </observationRange> </ referenceRange> </observation> </component> </organizer> </entry > <entry> <organizer moodCode="EVN" classCode="BATTERY"> <templateId root="2.16.840.1.739794.10..22.4.1" /> <id nullFlavor="NA" /> <code codeSystem="local" code="2117-11" displayName="Serum or plasma choriogonadotropin ( test) detection" /> <statusCode code= "completed" /> <component> <observation moodCode="EVN" classCode= "OBS"> <templateId root="2.16.840.1.640292.10..22.4.2" /> < id nullFlavor="NA" /> <code codeSystem="local" code="2117-11" displayName="Serum or plasma choriogonadotropin ( test) detection" /> <statusCode code="completed" /> <effectiveTime value= "589584898388" /> <value unit="" xsi:type="PQ" value="NEGATIVE" /> <referenceRange> <observationRange> <text>NEGATIVE </text> </observationRange> </referenceRange> </ observation> </component> </organizer> </entry> <entry> <organizer moodCode="EVN" classCode="BATTERY"> <templateId root= "2.16.840.1.907871.10..22.4.1" /> <id nullFlavor="NA" /> <code codeSystem="local" code="78174-6" displayName="Liver function panel (serum or plasma alk phos, alb, total and direct bili, total protein, ALT, AST)" /> < statusCode code="completed" /> <component> <observation moodCode= "EVN" classCode="OBS"> <templateId root="2.16.840.1.985977.10..22.4.2 " /> <id nullFlavor="NA" /> <code codeSystem="local" code= "1974-05" displayName="Serum or plasma total bilirubin measurement (mass/volume) " /> <statusCode code="completed" /> <effectiveTime value= "303247782966" /> <value unit="mg/dL" xsi:type="PQ" value="0.2" /> <referenceRange> <observationRange> <text>0.1-1.0< /text> </observationRange> </referenceRange> </ observation> </component> <component> <observation moodCode= "EVN" classCode="OBS"> <templateId root="216.840.1.894722.10..22.4.2 " /> <id nullFlavor="NA" /> <code codeSystem="local" code= "6768-6" displayName="Serum or plasma alkaline phosphatase measurement ( enzymatic activity/volume)" /> <statusCode code="completed" /> <effectiveTime value="916248116299" /> <value unit="U/L" xsi:type="PQ " value="45" /> <referenceRange> <observationRange> <text>40-136</text> </observationRange> </ referenceRange> </observation> </component> <component> <observation moodCode="EVN" classCode="OBS"> <templateId root= "2.16.840.1.221322.10.20.22.4.2" /> <id nullFlavor="NA" /> < code codeSystem="local" code="1919-11" displayName="Serum or plasma aspartate aminotransferase measurement (enzymatic activity/volume)" /> < statusCode code="completed" /> <effectiveTime value="147300275688" /> <value unit="U/L" xsi:type="PQ" value="19" /> <referenceRange > <observationRange> <text>5-34</text> </ observationRange> </referenceRange> </observation> </ component> <component> <observation moodCode="EVN" classCode="OBS"> <templateId root="16.840.1.472970.10..22.4.2" /> <id nullFlavor="NA" /> <code codeSystem="local" code="17426" displayName= "Serum or plasma alanine aminotransferase measurement (enzymatic activity/volume )" /> <statusCode code="completed" /> <effectiveTime value= "420720267667" /> <value unit="U/L" xsi:type="PQ" value="12" /> <referenceRange> <observationRange> <text>0-55</text > </observationRange> </referenceRange> </observation > </component> <component> <observation moodCode="EVN" classCode="OBS"> <templateId root="216.840.1.917067.10..22.4.2" /> <id nullFlavor="NA" /> <code codeSystem="local" code="2885-2" displayName="Serum or plasma protein measurement (mass/volume)" /> < statusCode code="completed" /> <effectiveTime value="454808521671" /> <value unit="g/dL" xsi:type="PQ" value="6.9" /> < referenceRange> <observationRange> <text>6.4-8.2</text> </observationRange> </referenceRange> </observation > </component> <component> <observation moodCode="EVN" classCode="OBS"> <templateId root="06.08.840.1.644350.10.20.22.4.2" /> <id nullFlavor="NA" /> <code codeSystem="local" code="1750-10" displayName="Serum or plasma albumin measurement (mass/volume)" /> < statusCode code="completed" /> <effectiveTime value="344655627024" /> <value unit="g/dL" xsi:type="PQ" value="4.3" /> < referenceRange> <observationRange> <text>3.2-4.5</text> </observationRange> </referenceRange> </observation > </component> <component> <observation moodCode="EVN" classCode="OBS"> <templateId root="06.08.840.1.964265.10.20.22.4.2" /> <id nullFlavor="NA" /> <code codeSystem="local" code="1967-10" displayName="Bilirubin direct" /> <statusCode code="completed" /> <effectiveTime value="158425437927" /> <value unit="mg/dL" xsi: type="PQ" value="<" /> <referenceRange> <observationRange > <text>0.0-0.3</text> </observationRange> </ referenceRange> </observation> </component> <component> <observation moodCode="EVN" classCode="OBS"> <templateId root= "840.1.568200.10..22.4.2" /> <id nullFlavor="NA" /> < code codeSystem="local" code="1970-04" displayName="Serum or plasma indirect bilirubin measurement (mass/volume)" /> <statusCode code="completed" / > <effectiveTime value="553708587375" /> <value unit="mg/dL" xsi:type="PQ" value="0.1" /> <referenceRange> < observationRange> <text>NRG</text> </observationRange> </referenceRange> </observation> </component> </ organizer> </entry> <entry> <organizer moodCode="EVN" classCode="BATTERY"> <templateId root="216.840.1.563198.10..22.4.1" /> <id nullFlavor= "NA" /> <code codeSystem="local" code="34547-3" displayName="Whole blood basic metabolic panel" /> <statusCode code="completed" /> <component> <observation moodCode="EVN" classCode="OBS"> <templateId root= "2.16.840.1.981999.10..22.4.2" /> <id nullFlavor="NA" /> < code codeSystem="local" code="2951-2" displayName="Serum or plasma sodium measurement (moles/volume)" /> <statusCode code="completed" /> <effectiveTime value="022730173956" /> <value unit="mmol/L" xsi:type= "PQ" value="137" /> <referenceRange> <observationRange> <text>135-145</text> </observationRange> </ referenceRange> </observation> </component> <component> <observation moodCode="EVN" classCode="OBS"> <templateId root= "216.840.1.698536.10..22.4.2" /> <id nullFlavor="NA" /> < code codeSystem="local" code="2822-06" displayName="Serum or plasma potassium measurement (moles/volume)" /> <statusCode code="completed" /> <effectiveTime value="937879290417" /> <value unit="mmol/L" xsi:type= "PQ" value="4.1" /> <referenceRange> <observationRange> <text>3.6-5.0</text> </observationRange> </ referenceRange> </observation> </component> <component> <observation moodCode="EVN" classCode="OBS"> <templateId root= "2.16.840.1.275033.10.20.22.4.2" /> <id nullFlavor="NA" /> < code codeSystem="local" code="" displayName="Serum or plasma chloride measurement (moles/volume)" /> <statusCode code="completed" /> <effectiveTime value="397686912714" /> <value unit="mmol/L" xsi:type= "PQ" value="106" /> <referenceRange> <observationRange> <text>98-107</text> </observationRange> </ referenceRange> </observation> </component> <component> <observation moodCode="EVN" classCode="OBS"> <templateId root= "2.16.840.1.166097.10.20.22.4.2" /> <id nullFlavor="NA" /> < code codeSystem="local" code="2027-12" displayName="Carbon dioxide" /> < statusCode code="completed" /> <effectiveTime value="354383235171" /> <value unit="mmol/L" xsi:type="PQ" value="22" /> < referenceRange> <observationRange> <text>21-32</text> </observationRange> </referenceRange> </observation> </component> <component> <observation moodCode="EVN" classCode= "OBS"> <templateId root="2.16.840.1.434872.10..22.4.2" /> < id nullFlavor="NA" /> <code codeSystem="local" code="56635-8" displayName="Serum or plasma anion gap determination (moles/volume)" /> <statusCode code="completed" /> <effectiveTime value="132981543237" / > <value unit="mmol/L" xsi:type="PQ" value="9" /> < referenceRange> <observationRange> <text>5-14</text> </observationRange> </referenceRange> </observation> </component> <component> <observation moodCode="EVN" classCode= "OBS"> <templateId root="2.16.840.1.700695.10.22.4.2" /> < id nullFlavor="NA" /> <code codeSystem="local" code="3094-0" displayName="Serum or plasma urea nitrogen measurement (mass/volume)" /> <statusCode code="completed" /> <effectiveTime value="398672326695" /> <value unit="mg/dL" xsi:type="PQ" value="10" /> < referenceRange> <observationRange> <text>7-18</text> </observationRange> </referenceRange> </observation> </component> <component> <observation moodCode="EVN" classCode= "OBS"> <templateId root="2.16.840.1.667130.10..22.4.2" /> < id nullFlavor="NA" /> <code codeSystem="local" code="2160-0" displayName="Serum or plasma creatinine measurement (mass/volume)" /> < statusCode code="completed" /> <effectiveTime value="990229467619" /> <value unit="mg/dL" xsi:type="PQ" value="0.65" /> < referenceRange> <observationRange> <text>0.60-1.30</text > </observationRange> </referenceRange> </observation > </component> <component> <observation moodCode="EVN" classCode="OBS"> <templateId root="2.16.840.1.124745.10..4.2" /> <id nullFlavor="NA" /> <code codeSystem="local" code="3097-3" displayName="Serum or plasma urea nitrogen/creatinine mass ratio" /> < statusCode code="completed" /> <effectiveTime value="416982079356" /> <value unit="" xsi:type="PQ" value="15" /> <referenceRange> <observationRange> <text>NRG</text> </ observationRange> </referenceRange> </observation> </ component> <component> <observation moodCode="EVN" classCode="OBS"> <templateId root="216.840.1.242816.10..4.2" /> <id nullFlavor="NA" /> <code codeSystem="local" code="41137-1" displayName= "Serum or plasma creatinine measurement with calculation of estimated glomerular filtration rate" /> <statusCode code="completed" /> <effectiveTime value="690316467092" /> <value unit="" xsi:type="PQ" value=">" /> <referenceRange> <observationRange> <text>NRG</text> </observationRange> </referenceRange > </observation> </component> <component> <observation moodCode="EVN" classCode="OBS"> <templateId root= "2.16.840.1.972717.10..22.4.2" /> <id nullFlavor="NA" /> < code codeSystem="local" code="2345-7" displayName="Serum or plasma glucose measurement (mass/volume)" /> <statusCode code="completed" /> <effectiveTime value="737516682337" /> <value unit="mg/dL" xsi:type="PQ " value="78" /> <referenceRange> <observationRange> <text>70-105</text> </observationRange> </ referenceRange> </observation> </component> <component> <observation moodCode="EVN" classCode="OBS"> <templateId root= "216.840.1.510052.10.22.4.2" /> <id nullFlavor="NA" /> < code codeSystem="local" code="84461-4" displayName="Serum or plasma calcium measurement (mass/volume)" /> <statusCode code="completed" /> <effectiveTime value="814463778234" /> <value unit="mg/dL" xsi:type="PQ " value="8.9" /> <referenceRange> <observationRange> <text>8.5-10.1</text> </observationRange> </ referenceRange> </observation> </component> </organizer> </entry > <entry> <organizer moodCode="EVN" classCode="BATTERY"> <templateId root="06.08.840.1.285440.10..22.4.1" /> <id nullFlavor="NA" /> <code codeSystem="local" code="5643-2" displayName="Serum or plasma ethanol measurement (mass/volume)" /> <statusCode code="completed" /> < component> <observation moodCode="EVN" classCode="OBS"> < templateId root="216.840.1.365258.10.20.22.4.2" /> <id nullFlavor="NA " /> <code codeSystem="local" code="5643-2" displayName="Serum or plasma ethanol measurement (mass/volume)" /> <statusCode code= "completed" /> <effectiveTime value="918007283487" /> <value unit="mg/dL" xsi:type="PQ" value="<" /> <referenceRange> <observationRange> <text><10</text> </ observationRange> </referenceRange> </observation> </ component> </organizer> </entry> <entry> <organizer moodCode="EVN" classCode="BATTERY"> <templateId root="2.16.840.1.748926.10.20.22.4.1" /> <id nullFlavor="NA" /> <code codeSystem="local" code="52656-4" displayName="Serum or plasma thyrotropin measurement by detection limit <= 0.05 miu/l (units/volume)" /> <statusCode code="completed" /> < component> <observation moodCode="EVN" classCode="OBS"> < templateId root="2.16.840.1.507755.10.20.22.4.2" /> <id nullFlavor="NA " /> <code codeSystem="local" code="94558-0" displayName="Serum or plasma thyrotropin measurement by detection limit <=0.05 miu/l (units/volume) " /> <statusCode code="completed" /> <effectiveTime value= "689637601182" /> <value unit="u[iU]/mL" xsi:type="PQ" value="2.23" /> <referenceRange> <observationRange> <text>0.35 -4.94</text> </observationRange> </referenceRange> </ observation> </component> </organizer> </entry> <entry> <organizer moodCode="EVN" classCode="BATTERY"> <templateId root= "06.08.840.1.358635.10...4.1" /> <id nullFlavor="NA" /> <code codeSystem="local" code="51831-7" displayName="Complete urinalysis with reflex to culture" /> <statusCode code="completed" /> <component> < observation moodCode="EVN" classCode="OBS"> <templateId root= "06.08.840.1.584399.02.09.22.4.2" /> <id nullFlavor="NA" /> < code codeSystem="local" code="5778-6" displayName="Urine color determination" / > <statusCode code="completed" /> <effectiveTime value= "836054344737" /> <value unit="" xsi:type="PQ" value="YELLOW" /> <referenceRange> <observationRange> <text>NRG</text > </observationRange> </referenceRange> </observation > </component> <component> <observation moodCode="EVN" classCode="OBS"> <templateId root="06.08.840.1.309481.02.09.22.4.2" /> <id nullFlavor="NA" /> <code codeSystem="local" code="64429-2 " displayName="Urine clarity determination" /> <statusCode code= "completed" /> <effectiveTime value="672846073806" /> <value unit="" xsi:type="PQ" value="CLEAR" /> <referenceRange> < observationRange> <text>NRG</text> </observationRange> </referenceRange> </observation> </component> < component> <observation moodCode="EVN" classCode="OBS"> < templateId root="16.840.1.725422.22.4.2" /> <id nullFlavor="NA " /> <code codeSystem="local" code="5803-2" displayName="Urine pH measurement by test strip" /> <statusCode code="completed" /> <effectiveTime value="770234495524" /> <value unit="" xsi:type="PQ" value="5" /> <referenceRange> <observationRange> <text>5-9</text> </observationRange> </referenceRange> </observation> </component> <component> <observation moodCode="EVN" classCode="OBS"> <templateId root= "2.16.840.1.796214.10..22.4.2" /> <id nullFlavor="NA" /> < code codeSystem="local" code="5811-5" displayName="Specific gravity of urine by test strip" /> <statusCode code="completed" /> <effectiveTime value="797891833026" /> <value unit="" xsi:type="PQ" value="1.005" /> <interpretationCode codeSystem="local" code="" /> < referenceRange> <observationRange> <text>1.016-1.022</ text> </observationRange> </referenceRange> </ observation> </component> <component> <observation moodCode= "EVN" classCode="OBS"> <templateId root="2.16.840.1.927405.10.20.22.4.2 " /> <id nullFlavor="NA" /> <code codeSystem="local" code= "60630-6" displayName="Urine protein assay by test strip, semi-quantitative" /> <statusCode code="completed" /> <effectiveTime value= "647854437742" /> <value unit="" xsi:type="PQ" value="NEGATIVE" /> <referenceRange> <observationRange> <text>NEGATIVE </text> </observationRange> </referenceRange> </ observation> </component> <component> <observation moodCode= "EVN" classCode="OBS"> <templateId root="2.840.1.117410.10.22.4.2 " /> <id nullFlavor="NA" /> <code codeSystem="local" code= "04074-2" displayName="Urine glucose detection by automated test strip" /> <statusCode code="completed" /> <effectiveTime value="774900154159 " /> <value unit="" xsi:type="PQ" value="NEGATIVE" /> < referenceRange> <observationRange> <text>NEGATIVE</text > </observationRange> </referenceRange> </observation > </component> <component> <observation moodCode="EVN" classCode="OBS"> <templateId root="2.840.1.223292.02.09.22.4.2" /> <id nullFlavor="NA" /> <code codeSystem="local" code="36899-7 " displayName="Erythrocytes detection in urine sediment by light microscopy" /> <statusCode code="completed" /> <effectiveTime value= "679038774021" /> <value unit="" xsi:type="PQ" value="NEGATIVE" /> <referenceRange> <observationRange> <text>NEGATIVE </text> </observationRange> </referenceRange> </ observation> </component> <component> <observation moodCode= "EVN" classCode="OBS"> <templateId root="06.08.840.1.797528.10..22.4.2 " /> <id nullFlavor="NA" /> <code codeSystem="local" code= "93466-9" displayName="Urine ketones detection by automated test strip" /> <statusCode code="completed" /> <effectiveTime value="053114529328 " /> <value unit="" xsi:type="PQ" value="NEGATIVE" /> < referenceRange> <observationRange> <text>NEGATIVE</text > </observationRange> </referenceRange> </observation > </component> <component> <observation moodCode="EVN" classCode="OBS"> <templateId root="216.840.1.665784.10..22.4.2" /> <id nullFlavor="NA" /> <code codeSystem="local" code="5802-4" displayName="Urine nitrite detection by test strip" /> <statusCode code ="completed" /> <effectiveTime value="838216672632" /> <value unit="" xsi:type="PQ" value="NEGATIVE" /> <referenceRange> < observationRange> <text>NEGATIVE</text> </ observationRange> </referenceRange> </observation> </ component> <component> <observation moodCode="EVN" classCode="OBS"> <templateId root="06.08.840.1.818037.10..4.2" /> <id nullFlavor="NA" /> <code codeSystem="local" code="5770-3" displayName= "Urine total bilirubin detection by test strip" /> <statusCode code= "completed" /> <effectiveTime value="022032361211" /> <value unit="" xsi:type="PQ" value="NEGATIVE" /> <referenceRange> < observationRange> <text>NEGATIVE</text> </ observationRange> </referenceRange> </observation> </ component> <component> <observation moodCode="EVN" classCode="OBS"> <templateId root="06.08.840.1.411826.10.20.4.2" /> <id nullFlavor="NA" /> <code codeSystem="local" code="88836-3" displayName= "Urine urobilinogen measurement by automated test strip (mass/volume)" /> <statusCode code="completed" /> <effectiveTime value="853995765327 " /> <value unit="" xsi:type="PQ" value="NORMAL" /> < referenceRange> <observationRange> <text>NORMAL</text> </observationRange> </referenceRange> </observation> </component> <component> <observation moodCode="EVN" classCode ="OBS"> <templateId root="216.840.1.498605.10..4.2" /> < id nullFlavor="NA" /> <code codeSystem="local" code="5799-2" displayName="Urine leukocyte esterase detection by dipstick" /> < statusCode code="completed" /> <effectiveTime value="046258140117" /> <value unit="" xsi:type="PQ" value="NEGATIVE" /> < referenceRange> <observationRange> <text>NEGATIVE</text > </observationRange> </referenceRange> </observation > </component> <component> <observation moodCode="EVN" classCode="OBS"> <templateId root="16.840.1.839037.10..4.2" /> <id nullFlavor="NA" /> <code codeSystem="local" code="14699-1 " displayName="Automated urine sediment erythrocyte count by microscopy (number/ high power field)" /> <statusCode code="completed" /> < effectiveTime value="476537790865" /> <value unit="" xsi:type="PQ" value="NONE" /> <referenceRange> <observationRange> <text>NRG</text> </observationRange> </referenceRange > </observation> </component> <component> <observation moodCode="EVN" classCode="OBS"> <templateId root= "216.840.1.248043.10..4.2" /> <id nullFlavor="NA" /> < code codeSystem="local" code="5821-4" displayName="Automated urine sediment leukocyte count by microscopy (number/high power field)" /> < statusCode code="completed" /> <effectiveTime value="454101146528" /> <value unit="" xsi:type="PQ" value="RARE" /> <referenceRange> <observationRange> <text>NRG</text> </ observationRange> </referenceRange> </observation> </ component> <component> <observation moodCode="EVN" classCode="OBS"> <templateId root="2.16.840.1.842319.10..4.2" /> <id nullFlavor="NA" /> <code codeSystem="local" code="83422-9" displayName= "Bacteria detection in urine sediment by light microscopy" /> < statusCode code="completed" /> <effectiveTime value="101056205377" /> <value unit="" xsi:type="PQ" value="TRACE" /> <referenceRange > <observationRange> <text>NRG</text> </ observationRange> </referenceRange> </observation> </ component> <component> <observation moodCode="EVN" classCode="OBS"> <templateId root="2.16.840.1.755782.10..4.2" /> <id nullFlavor="NA" /> <code codeSystem="local" code="87196-1" displayName= "Squamous epithelial cells detection in urine sediment by light microscopy" /> <statusCode code="completed" /> <effectiveTime value= "536499790338" /> <value unit="" xsi:type="PQ" value="2-5" /> <referenceRange> <observationRange> <text>NRG</text> </observationRange> </referenceRange> </observation> </component> <component> <observation moodCode="EVN" classCode= "OBS"> <templateId root="216.840.1.916353.10..22.4.2" /> < id nullFlavor="NA" /> <code codeSystem="local" code="81587-3" displayName="Crystals detection in urine sediment by light microscopy" /> <statusCode code="completed" /> <effectiveTime value="076062301722 " /> <value unit="" xsi:type="PQ" value="NONE" /> < referenceRange> <observationRange> <text>NRG</text> </observationRange> </referenceRange> </observation> </component> <component> <observation moodCode="EVN" classCode= "OBS"> <templateId root="216.840.1.935200.10..4.2" /> < id nullFlavor="NA" /> <code codeSystem="local" code="58535-3" displayName="Casts detection in urine sediment by light microscopy" /> <statusCode code="completed" /> <effectiveTime value="714581817621" /> <value unit="" xsi:type="PQ" value="NONE" /> <referenceRange > <observationRange> <text>NRG</text> </ observationRange> </referenceRange> </observation> </ component> <component> <observation moodCode="EVN" classCode="OBS"> <templateId root="16.840.1.315053.10.20.22.4.2" /> <id nullFlavor="NA" /> <code codeSystem="local" code="8247-9" displayName= "Mucus detection in urine sediment by light microscopy" /> <statusCode code="completed" /> <effectiveTime value="906137387855" /> < value unit="" xsi:type="PQ" value="NEGATIVE" /> <referenceRange> <observationRange> <text>NRG</text> </ observationRange> </referenceRange> </observation> </ component> <component> <observation moodCode="EVN" classCode="OBS"> <templateId root="216.840.1.196003.10..22.4.2" /> <id nullFlavor="NA" /> <code codeSystem="local" code="44515-6" displayName= "Complete urinalysis with reflex to culture" /> <statusCode code= "completed" /> <effectiveTime value="342631416773" /> <value unit="" xsi:type="PQ" value="NO" /> <referenceRange> < observationRange> <text>NRG</text> </observationRange> </referenceRange> </observation> </component> </ organizer> </entry> <entry> <organizer moodCode="EVN" classCode="BATTERY"> <templateId root="16.840.1.756957.10..22.4.1" /> <id nullFlavor= "NA" /> <code codeSystem="local" code="77268-2" displayName="Urine drug screening test" /> <statusCode code="completed" /> <component> <observation moodCode="EVN" classCode="OBS"> <templateId root= "16.840.1.363160.10..22.4.2" /> <id nullFlavor="NA" /> < code codeSystem="local" code="33056-9" displayName="Urine phencyclidine detection by screening method" /> <statusCode code="completed" /> <effectiveTime value="951387124434" /> <value unit="" xsi:type="PQ " value="NEGATIVE" /> <referenceRange> <observationRange> <text>NEGATIVE</text> </observationRange> </ referenceRange> </observation> </component> <component> <observation moodCode="EVN" classCode="OBS"> <templateId root= "216.840.1.272945.10..22.4.2" /> <id nullFlavor="NA" /> < code codeSystem="local" code="54636-0" displayName="Urine benzodiazepines detection by screening method" /> <statusCode code="completed" /> <effectiveTime value="020479370522" /> <value unit="" xsi:type="PQ " value="NEGATIVE" /> <referenceRange> <observationRange> <text>NEGATIVE</text> </observationRange> </ referenceRange> </observation> </component> <component> <observation moodCode="EVN" classCode="OBS"> <templateId root= "216.840.1.457186.10.22.4.2" /> <id nullFlavor="NA" /> < code codeSystem="local" code="3397-7" displayName="Urine cocaine detection" /> <statusCode code="completed" /> <effectiveTime value= "134643922279" /> <value unit="" xsi:type="PQ" value="NEGATIVE" /> <referenceRange> <observationRange> <text>NEGATIVE </text> </observationRange> </referenceRange> </ observation> </component> <component> <observation moodCode= "EVN" classCode="OBS"> <templateId root="216.840.1.135983.10.20.22.4.2 " /> <id nullFlavor="NA" /> <code codeSystem="local" code= "36625-5" displayName="Urine amphetamines detection by screening method" /> <statusCode code="completed" /> <effectiveTime value= "355545527454" /> <value unit="" xsi:type="PQ" value="NEGATIVE" /> <referenceRange> <observationRange> <text>NEGATIVE </text> </observationRange> </referenceRange> </ observation> </component> <component> <observation moodCode= "EVN" classCode="OBS"> <templateId root="2.16.840.1.981618.10.20.22.4.2 " /> <id nullFlavor="NA" /> <code codeSystem="local" code= "12545-6" displayName="Urine methamphetamine detection by screening method" /> <statusCode code="completed" /> <effectiveTime value= "699128223969" /> <value unit="" xsi:type="PQ" value="NEGATIVE" /> <referenceRange> <observationRange> <text>NEGATIVE </text> </observationRange> </referenceRange> </ observation> </component> <component> <observation moodCode= "EVN" classCode="OBS"> <templateId root="16.840.1.653794.10.20.22.4.2 " /> <id nullFlavor="NA" /> <code codeSystem="local" code= "90373-6" displayName="Urine cannabinoids detection by screening method" /> <statusCode code="completed" /> <effectiveTime value= "915315812212" /> <value unit="" xsi:type="PQ" value="NEGATIVE" /> <referenceRange> <observationRange> <text>NEGATIVE </text> </observationRange> </referenceRange> </ observation> </component> <component> <observation moodCode= "EVN" classCode="OBS"> <templateId root="16.840.1.992253.10.20.22.4.2 " /> <id nullFlavor="NA" /> <code codeSystem="local" code= "20718-6" displayName="Urine opiates detection by screening method" /> <statusCode code="completed" /> <effectiveTime value="633755916700" /> <value unit="" xsi:type="PQ" value="NEGATIVE" /> < referenceRange> <observationRange> <text>NEGATIVE</text > </observationRange> </referenceRange> </observation > </component> <component> <observation moodCode="EVN" classCode="OBS"> <templateId root="216.840.1.645166.10..22.4.2" /> <id nullFlavor="NA" /> <code codeSystem="local" code="3377-9" displayName="Urine barbiturates detection" /> <statusCode code= "completed" /> <effectiveTime value="998128821661" /> <value unit="" xsi:type="PQ" value="NEGATIVE" /> <referenceRange> < observationRange> <text>NEGATIVE</text> </ observationRange> </referenceRange> </observation> </ component> <component> <observation moodCode="EVN" classCode="OBS"> <templateId root="216.840.1.873707.10...4.2" /> <id nullFlavor="NA" /> <code codeSystem="local" code="49338-2" displayName= "Screening urine tricyclic antidepressants detection" /> <statusCode code="completed" /> <effectiveTime value="934845284865" /> < value unit="" xsi:type="PQ" value="POSITIVE" /> <interpretationCode codeSystem="local" code="*" /> <referenceRange> < observationRange> <text>NEGATIVE</text> </ observationRange> </referenceRange> </observation> </ component> <component> <observation moodCode="EVN" classCode="OBS"> <templateId root="216.840.1.594992.10..22.4.2" /> <id nullFlavor="NA" /> <code codeSystem="local" code="70052-2" displayName= "Urine methadone detection by screening method" /> <statusCode code= "completed" /> <effectiveTime value="004660602903" /> <value unit="" xsi:type="PQ" value="NEGATIVE" /> <referenceRange> < observationRange> <text>NEGATIVE</text> </ observationRange> </referenceRange> </observation> </ component> <component> <observation moodCode="EVN" classCode="OBS"> <templateId root="2.16.840.1.090493.10.20.22.4.2" /> <id nullFlavor="NA" /> <code codeSystem="local" code="88610-7" displayName= "Urine oxycodone detection" /> <statusCode code="completed" /> <effectiveTime value="350647117981" /> <value unit="" xsi:type="PQ" value="NEGATIVE" /> <referenceRange> <observationRange> <text>NEGATIVE</text> </observationRange> </ referenceRange> </observation> </component> <component> <observation moodCode="EVN" classCode="OBS"> <templateId root= "2.16.840.1.841245.10.20.22.4.2" /> <id nullFlavor="NA" /> < code codeSystem="local" code="48176-5" displayName="Urine propoxyphene detection " /> <statusCode code="completed" /> <effectiveTime value= "640913227862" /> <value unit="" xsi:type="PQ" value="NEGATIVE" /> <referenceRange> <observationRange> <text>NEGATIVE </text> </observationRange> </referenceRange> </ observation> </component> </organizer> </entry> <entry> <organizer moodCode="EVN" classCode="BATTERY"> <templateId root= "16.840.1.511128.10..4.1" /> <id nullFlavor="NA" /> <code codeSystem="local" code="80200-2" displayName="Complete urinalysis with reflex to culture" /> <statusCode code="completed" /> <component> < observation moodCode="EVN" classCode="OBS"> <templateId root= "06.08.840.1.332197.02.09.22.4.2" /> <id nullFlavor="NA" /> < code codeSystem="local" code="5778-6" displayName="Urine color determination" / > <statusCode code="completed" /> <effectiveTime value= "875491628512" /> <value unit="" xsi:type="PQ" value="YELLOW" /> <referenceRange> <observationRange> <text>NRG</text > </observationRange> </referenceRange> </observation > </component> <component> <observation moodCode="EVN" classCode="OBS"> <templateId root="06.08.840.1.385545.02.09.22.4.2" /> <id nullFlavor="NA" /> <code codeSystem="local" code="85182-6 " displayName="Urine clarity determination" /> <statusCode code= "completed" /> <effectiveTime value="704471966815" /> <value unit="" xsi:type="PQ" value="CLEAR" /> <referenceRange> < observationRange> <text>NRG</text> </observationRange> </referenceRange> </observation> </component> < component> <observation moodCode="EVN" classCode="OBS"> < templateId root="16.840.1.051968.02.09.22.4.2" /> <id nullFlavor="NA " /> <code codeSystem="local" code="5803-2" displayName="Urine pH measurement by test strip" /> <statusCode code="completed" /> <effectiveTime value="719926326082" /> <value unit="" xsi:type="PQ" value="7" /> <referenceRange> <observationRange> <text>5-9</text> </observationRange> </referenceRange> </observation> </component> <component> <observation moodCode="EVN" classCode="OBS"> <templateId root= "2.16.840.1.298311.10..22.4.2" /> <id nullFlavor="NA" /> < code codeSystem="local" code="5811-5" displayName="Specific gravity of urine by test strip" /> <statusCode code="completed" /> <effectiveTime value="235391968118" /> <value unit="" xsi:type="PQ" value="1.010" /> <interpretationCode codeSystem="local" code="" /> < referenceRange> <observationRange> <text>1.016-1.022</ text> </observationRange> </referenceRange> </ observation> </component> <component> <observation moodCode= "EVN" classCode="OBS"> <templateId root="2.16.840.1.331198.10.20.22.4.2 " /> <id nullFlavor="NA" /> <code codeSystem="local" code= "17809-3" displayName="Urine protein assay by test strip, semi-quantitative" /> <statusCode code="completed" /> <effectiveTime value= "127325306239" /> <value unit="" xsi:type="PQ" value="NEGATIVE" /> <referenceRange> <observationRange> <text>NEGATIVE </text> </observationRange> </referenceRange> </ observation> </component> <component> <observation moodCode= "EVN" classCode="OBS"> <templateId root="216.840.1.739534.10..22.4.2 " /> <id nullFlavor="NA" /> <code codeSystem="local" code= "11325-5" displayName="Urine glucose detection by automated test strip" /> <statusCode code="completed" /> <effectiveTime value="236495192352 " /> <value unit="" xsi:type="PQ" value="NEGATIVE" /> < referenceRange> <observationRange> <text>NEGATIVE</text > </observationRange> </referenceRange> </observation > </component> <component> <observation moodCode="EVN" classCode="OBS"> <templateId root="216.840.1.173008...4.2" /> <id nullFlavor="NA" /> <code codeSystem="local" code="77370-2 " displayName="Erythrocytes detection in urine sediment by light microscopy" /> <statusCode code="completed" /> <effectiveTime value= "413043836300" /> <value unit="" xsi:type="PQ" value="5+" /> < interpretationCode codeSystem="local" code="*" /> <referenceRange> <observationRange> <text>NEGATIVE</text> </ observationRange> </referenceRange> </observation> </ component> <component> <observation moodCode="EVN" classCode="OBS"> <templateId root="16.840.1.362959.10...4.2" /> <id nullFlavor="NA" /> <code codeSystem="local" code="32949-9" displayName= "Urine ketones detection by automated test strip" /> <statusCode code= "completed" /> <effectiveTime value="103334891078" /> <value unit="" xsi:type="PQ" value="NEGATIVE" /> <referenceRange> < observationRange> <text>NEGATIVE</text> </ observationRange> </referenceRange> </observation> </ component> <component> <observation moodCode="EVN" classCode="OBS"> <templateId root="216.840.1.346099.10.2022.4.2" /> <id nullFlavor="NA" /> <code codeSystem="local" code="5802-4" displayName= "Urine nitrite detection by test strip" /> <statusCode code="completed " /> <effectiveTime value="489675264731" /> <value unit="" xsi :type="PQ" value="NEGATIVE" /> <referenceRange> < observationRange> <text>NEGATIVE</text> </ observationRange> </referenceRange> </observation> </ component> <component> <observation moodCode="EVN" classCode="OBS"> <templateId root="06.08.840.1.288930.10.22.4.2" /> <id nullFlavor="NA" /> <code codeSystem="local" code="5770-3" displayName= "Urine total bilirubin detection by test strip" /> <statusCode code= "completed" /> <effectiveTime value="459247316812" /> <value unit="" xsi:type="PQ" value="NEGATIVE" /> <referenceRange> < observationRange> <text>NEGATIVE</text> </ observationRange> </referenceRange> </observation> </ component> <component> <observation moodCode="EVN" classCode="OBS"> <templateId root="06.08.840.1.710930.10.2022.4.2" /> <id nullFlavor="NA" /> <code codeSystem="local" code="88415-4" displayName= "Urine urobilinogen measurement by automated test strip (mass/volume)" /> <statusCode code="completed" /> <effectiveTime value="933093451475 " /> <value unit="" xsi:type="PQ" value="NORMAL" /> < referenceRange> <observationRange> <text>NORMAL</text> </observationRange> </referenceRange> </observation> </component> <component> <observation moodCode="EVN" classCode ="OBS"> <templateId root="2.16.840.1.509538.10.20.22.4.2" /> < id nullFlavor="NA" /> <code codeSystem="local" code="5799-2" displayName="Urine leukocyte esterase detection by dipstick" /> < statusCode code="completed" /> <effectiveTime value="141046233433" /> <value unit="" xsi:type="PQ" value="1+" /> < interpretationCode codeSystem="local" code="*" /> <referenceRange> <observationRange> <text>NEGATIVE</text> </ observationRange> </referenceRange> </observation> </ component> <component> <observation moodCode="EVN" classCode="OBS"> <templateId root="2.16.840.1.006849.10.20.22.4.2" /> <id nullFlavor="NA" /> <code codeSystem="local" code="10229-6" displayName= "Automated urine sediment erythrocyte count by microscopy (number/high power field)" /> <statusCode code="completed" /> <effectiveTime value="791749422032" /> <value unit="[HPF]" xsi:type="PQ" value="" /> <referenceRange> <observationRange> <text>NRG</ text> </observationRange> </referenceRange> </ observation> </component> <component> <observation moodCode= "EVN" classCode="OBS"> <templateId root="216.840.1.964558.10.20.22.4.2 " /> <id nullFlavor="NA" /> <code codeSystem="local" code= "5821-4" displayName="Automated urine sediment leukocyte count by microscopy ( number/high power field)" /> <statusCode code="completed" /> < effectiveTime value="897776939836" /> <value unit="[HPF]" xsi:type="PQ " value="" /> <referenceRange> <observationRange> <text>NRG</text> </observationRange> </referenceRange> </observation> </component> <component> <observation moodCode="EVN" classCode="OBS"> <templateId root= "16.840.1.361282.10..22.4.2" /> <id nullFlavor="NA" /> < code codeSystem="local" code="27006-7" displayName="Bacteria detection in urine sediment by light microscopy" /> <statusCode code="completed" /> <effectiveTime value="460726027452" /> <value unit="" xsi:type="PQ " value="NEGATIVE" /> <referenceRange> <observationRange> <text>NRG</text> </observationRange> </ referenceRange> </observation> </component> <component> <observation moodCode="EVN" classCode="OBS"> <templateId root= "16.840.1.355645.10.20.22.4.2" /> <id nullFlavor="NA" /> < code codeSystem="local" code="54240-8" displayName="Squamous epithelial cells detection in urine sediment by light microscopy" /> <statusCode code= "completed" /> <effectiveTime value="479431811439" /> <value unit="" xsi:type="PQ" value="5-10" /> <referenceRange> < observationRange> <text>NRG</text> </observationRange> </referenceRange> </observation> </component> < component> <observation moodCode="EVN" classCode="OBS"> < templateId root="216.840.1.420973.10.20.22.4.2" /> <id nullFlavor="NA " /> <code codeSystem="local" code="78565-7" displayName="Crystals detection in urine sediment by light microscopy" /> <statusCode code= "completed" /> <effectiveTime value="067336925416" /> <value unit="" xsi:type="PQ" value="NONE" /> <referenceRange> < observationRange> <text>NRG</text> </observationRange> </referenceRange> </observation> </component> < component> <observation moodCode="EVN" classCode="OBS"> < templateId root="06.08.840.1.675227.10..4.2" /> <id nullFlavor="NA " /> <code codeSystem="local" code="21164-4" displayName="Casts detection in urine sediment by light microscopy" /> <statusCode code= "completed" /> <effectiveTime value="752316434576" /> <value unit="" xsi:type="PQ" value="NONE" /> <referenceRange> < observationRange> <text>NRG</text> </observationRange> </referenceRange> </observation> </component> < component> <observation moodCode="EVN" classCode="OBS"> < templateId root="06.08.840.1.984541.10.2022.4.2" /> <id nullFlavor="NA " /> <code codeSystem="local" code="8247-9" displayName="Mucus detection in urine sediment by light microscopy" /> <statusCode code= "completed" /> <effectiveTime value="766107318116" /> <value unit="" xsi:type="PQ" value="NEGATIVE" /> <referenceRange> < observationRange> <text>NRG</text> </observationRange> </referenceRange> </observation> </component> < component> <observation moodCode="EVN" classCode="OBS"> < templateId root="216.840.1.461111.10.4.2" /> <id nullFlavor="NA " /> <code codeSystem="local" code="73923-2" displayName="Complete urinalysis with reflex to culture" /> <statusCode code="completed" /> <effectiveTime value="822134393241" /> <value unit="" xsi:type ="PQ" value="NO" /> <referenceRange> <observationRange> <text>NRG</text> </observationRange> </ referenceRange> </observation> </component> </organizer> </entry > <entry> <organizer moodCode="EVN" classCode="BATTERY"> <templateId root="16.840.1.059721.10.4.1" /> <id nullFlavor="NA" /> <code codeSystem="local" code="63699-9" displayName="Urine drug screening test" /> <statusCode code="completed" /> <component> <observation moodCode ="EVN" classCode="OBS"> <templateId root= "16.840.1.300105.10...4.2" /> <id nullFlavor="NA" /> < code codeSystem="local" code="48989-7" displayName="Urine phencyclidine detection by screening method" /> <statusCode code="completed" /> <effectiveTime value="256777475445" /> <value unit="" xsi:type="PQ " value="NEGATIVE" /> <referenceRange> <observationRange> <text>NEGATIVE</text> </observationRange> </ referenceRange> </observation> </component> <component> <observation moodCode="EVN" classCode="OBS"> <templateId root= "16.840.1.909295.10.20.22.4.2" /> <id nullFlavor="NA" /> < code codeSystem="local" code="84496-2" displayName="Urine benzodiazepines detection by screening method" /> <statusCode code="completed" /> <effectiveTime value="645863632562" /> <value unit="" xsi:type="PQ " value="NEGATIVE" /> <referenceRange> <observationRange> <text>NEGATIVE</text> </observationRange> </ referenceRange> </observation> </component> <component> <observation moodCode="EVN" classCode="OBS"> <templateId root= "06.08.840.1.469393.10.22.4.2" /> <id nullFlavor="NA" /> < code codeSystem="local" code="3397-7" displayName="Urine cocaine detection" /> <statusCode code="completed" /> <effectiveTime value= "387235749591" /> <value unit="" xsi:type="PQ" value="NEGATIVE" /> <referenceRange> <observationRange> <text>NEGATIVE </text> </observationRange> </referenceRange> </ observation> </component> <component> <observation moodCode= "EVN" classCode="OBS"> <templateId root="06.08.840.1.743981.10.2022.4.2 " /> <id nullFlavor="NA" /> <code codeSystem="local" code= "83098-1" displayName="Urine amphetamines detection by screening method" /> <statusCode code="completed" /> <effectiveTime value= "534595292538" /> <value unit="" xsi:type="PQ" value="NEGATIVE" /> <referenceRange> <observationRange> <text>NEGATIVE </text> </observationRange> </referenceRange> </ observation> </component> <component> <observation moodCode= "EVN" classCode="OBS"> <templateId root="216.840.1.975588.10.22.4.2 " /> <id nullFlavor="NA" /> <code codeSystem="local" code= "03379-1" displayName="Urine methamphetamine detection by screening method" /> <statusCode code="completed" /> <effectiveTime value= "595570495816" /> <value unit="" xsi:type="PQ" value="NEGATIVE" /> <referenceRange> <observationRange> <text>NEGATIVE </text> </observationRange> </referenceRange> </ observation> </component> <component> <observation moodCode= "EVN" classCode="OBS"> <templateId root="06.08.840.1.043342.10.22.4.2 " /> <id nullFlavor="NA" /> <code codeSystem="local" code= "87017-1" displayName="Urine cannabinoids detection by screening method" /> <statusCode code="completed" /> <effectiveTime value= "516953067323" /> <value unit="" xsi:type="PQ" value="NEGATIVE" /> <referenceRange> <observationRange> <text>NEGATIVE </text> </observationRange> </referenceRange> </ observation> </component> <component> <observation moodCode= "EVN" classCode="OBS"> <templateId root="216.840.1.346209.10.20.22.4.2 " /> <id nullFlavor="NA" /> <code codeSystem="local" code= "29560-9" displayName="Urine opiates detection by screening method" /> <statusCode code="completed" /> <effectiveTime value="383483313733" /> <value unit="" xsi:type="PQ" value="POSITIVE" /> < interpretationCode codeSystem="local" code="*" /> <referenceRange> <observationRange> <text>NEGATIVE</text> </ observationRange> </referenceRange> </observation> </ component> <component> <observation moodCode="EVN" classCode="OBS"> <templateId root="2.16.840.1.563210.10..22.4.2" /> <id nullFlavor="NA" /> <code codeSystem="local" code="3377-9" displayName= "Urine barbiturates detection" /> <statusCode code="completed" /> <effectiveTime value="" /> <value unit="" xsi:type="PQ " value="NEGATIVE" /> <referenceRange> <observationRange> <text>NEGATIVE</text> </observationRange> </ referenceRange> </observation> </component> <component> <observation moodCode="EVN" classCode="OBS"> <templateId root= "2.16.840.1.876729.10..22.4.2" /> <id nullFlavor="NA" /> < code codeSystem="local" code="17838-7" displayName="Screening urine tricyclic antidepressants detection" /> <statusCode code="completed" /> <effectiveTime value="968126582850" /> <value unit="" xsi:type="PQ" value="NEGATIVE" /> <referenceRange> <observationRange> <text>NEGATIVE</text> </observationRange> </ referenceRange> </observation> </component> <component> <observation moodCode="EVN" classCode="OBS"> <templateId root= "216.840.1.816411.10..22.4.2" /> <id nullFlavor="NA" /> < code codeSystem="local" code="37245-2" displayName="Urine methadone detection by screening method" /> <statusCode code="completed" /> < effectiveTime value="550149134502" /> <value unit="" xsi:type="PQ" value="NEGATIVE" /> <referenceRange> <observationRange> <text>NEGATIVE</text> </observationRange> </ referenceRange> </observation> </component> <component> <observation moodCode="EVN" classCode="OBS"> <templateId root= "16.840.1.452740.10..4.2" /> <id nullFlavor="NA" /> < code codeSystem="local" code="66171-2" displayName="Urine oxycodone detection" / > <statusCode code="completed" /> <effectiveTime value= "" /> <value unit="" xsi:type="PQ" value="NEGATIVE" /> <referenceRange> <observationRange> <text>NEGATIVE </text> </observationRange> </referenceRange> </ observation> </component> <component> <observation moodCode= "EVN" classCode="OBS"> <templateId root="06.08.840.1.292927.10..22.4.2 " /> <id nullFlavor="NA" /> <code codeSystem="local" code= "31385-1" displayName="Urine propoxyphene detection" /> <statusCode code="completed" /> <effectiveTime value="662759515631" /> < value unit="" xsi:type="PQ" value="NEGATIVE" /> <referenceRange> <observationRange> <text>NEGATIVE</text> </ observationRange> </referenceRange> </observation> </ component> </organizer> </entry> <entry> <organizer moodCode="EVN" classCode="BATTERY"> <templateId root="2.16.840.1.318403.10..22.4.1" /> <id nullFlavor="NA" /> <code codeSystem="local" code="08556-6" displayName="Complete blood count (CBC) with automated white blood cell (WBC) differential" /> <statusCode code="completed" /> <component> < observation moodCode="EVN" classCode="OBS"> <templateId root= "2.16.840.1.210658.10...4.2" /> <id nullFlavor="NA" /> < code codeSystem="local" code="6690-2" displayName="Blood leukocytes automated count (number/volume)" /> <statusCode code="completed" /> < effectiveTime value="886341034868" /> <value unit="10*3/uL" xsi:type= "PQ" value="7.0" /> <referenceRange> <observationRange> <text>4.3-11.0</text> </observationRange> </ referenceRange> </observation> </component> <component> <observation moodCode="EVN" classCode="OBS"> <templateId root= "2.16.840.1.610040.10..4.2" /> <id nullFlavor="NA" /> < code codeSystem="local" code="789-8" displayName="Blood erythrocytes automated count (number/volume)" /> <statusCode code="completed" /> < effectiveTime value="157951683074" /> <value unit="10*6/uL" xsi:type= "PQ" value="3.83" /> <interpretationCode codeSystem="local" code="" / > <referenceRange> <observationRange> <text> 4.35-5.85</text> </observationRange> </referenceRange> </observation> </component> <component> <observation moodCode="EVN" classCode="OBS"> <templateId root= "216.840.1.128345.10.20.22.4.2" /> <id nullFlavor="NA" /> < code codeSystem="local" code="19990-2" displayName="Venous blood hemoglobin measurement (mass/volume)" /> <statusCode code="completed" /> <effectiveTime value="918094867850" /> <value unit="g/dL" xsi:type="PQ " value="13.0" /> <referenceRange> <observationRange> <text>11.5-16.0</text> </observationRange> </ referenceRange> </observation> </component> <component> <observation moodCode="EVN" classCode="OBS"> <templateId root= "06.08.840.1.682261.10.20.22.4.2" /> <id nullFlavor="NA" /> < code codeSystem="local" code="28888-9" displayName="Blood hematocrit (volume fraction)" /> <statusCode code="completed" /> <effectiveTime value="267193656791" /> <value unit="%" xsi:type="PQ" value="39" / > <referenceRange> <observationRange> <text>35- 52</text> </observationRange> </referenceRange> </ observation> </component> <component> <observation moodCode= "EVN" classCode="OBS"> <templateId root="16.840.1.986145.10.20.22.4.2 " /> <id nullFlavor="NA" /> <code codeSystem="local" code="787 -2" displayName="Automated erythrocyte mean corpuscular volume" /> < statusCode code="completed" /> <effectiveTime value="957895429010" /> <value unit="[fo_us]" xsi:type="PQ" value="101" /> < interpretationCode codeSystem="local" code="" /> <referenceRange> <observationRange> <text>80-99</text> </ observationRange> </referenceRange> </observation> </ component> <component> <observation moodCode="EVN" classCode="OBS"> <templateId root="2.16.840.1.248259.10.20.22.4.2" /> <id nullFlavor="NA" /> <code codeSystem="local" code="785-6" displayName= "Automated erythrocyte mean corpuscular hemoglobin (mass per erythrocyte)" /> <statusCode code="completed" /> <effectiveTime value= "121680832893" /> <value unit="pg" xsi:type="PQ" value="34" /> <referenceRange> <observationRange> <text>25-34</text > </observationRange> </referenceRange> </observation > </component> <component> <observation moodCode="EVN" classCode="OBS"> <templateId root="2.16.840.1.610397.10.20.22.4.2" /> <id nullFlavor="NA" /> <code codeSystem="local" code="786-4" displayName="Automated erythrocyte mean corpuscular hemoglobin concentration measurement (mass/volume)" /> <statusCode code="completed" /> <effectiveTime value="947757234915" /> <value unit="g/dL" xsi:type="PQ " value="34" /> <referenceRange> <observationRange> <text>32-36</text> </observationRange> </ referenceRange> </observation> </component> <component> <observation moodCode="EVN" classCode="OBS"> <templateId root= "2.16.840.1.537881.10..22.4.2" /> <id nullFlavor="NA" /> < code codeSystem="local" code="788-0" displayName="Automated erythrocyte distribution width ratio" /> <statusCode code="completed" /> < effectiveTime value="667743432205" /> <value unit="%" xsi:type="PQ " value="13.2" /> <referenceRange> <observationRange> <text>10.0-14.5</text> </observationRange> </ referenceRange> </observation> </component> <component> <observation moodCode="EVN" classCode="OBS"> <templateId root= "216.840.1.863829.10..4.2" /> <id nullFlavor="NA" /> < code codeSystem="local" code="777-3" displayName="Automated blood platelet count (count/volume)" /> <statusCode code="completed" /> < effectiveTime value="459874605383" /> <value unit="10*3/uL" xsi:type= "PQ" value="414" /> <interpretationCode codeSystem="local" code="" / > <referenceRange> <observationRange> <text>130 -400</text> </observationRange> </referenceRange> </ observation> </component> <component> <observation moodCode= "EVN" classCode="OBS"> <templateId root="216.840.1.847575.10..22.4.2 " /> <id nullFlavor="NA" /> <code codeSystem="local" code= "97651-3" displayName="Automated blood platelet mean volume measurement" /> <statusCode code="completed" /> <effectiveTime value= "274190088866" /> <value unit="[chi [facility]]" xsi:type="PQ" value="8.0" /> <referenceRange> <observationRange> <text>7.4- 10.4</text> </observationRange> </referenceRange> </ observation> </component> <component> <observation moodCode= "EVN" classCode="OBS"> <templateId root="2.16.840.1.121338.10..4.2 " /> <id nullFlavor="NA" /> <code codeSystem="local" code="770 -8" displayName="Automated blood neutrophils/100 leukocytes" /> < statusCode code="completed" /> <effectiveTime value="604549223820" /> <value unit="%" xsi:type="PQ" value="66" /> < referenceRange> <observationRange> <text>42-75</text> </observationRange> </referenceRange> </observation> </component> <component> <observation moodCode="EVN" classCode= "OBS"> <templateId root="2.16.840.1.522977.10..4.2" /> < id nullFlavor="NA" /> <code codeSystem="local" code="736-9" displayName ="Automated blood lymphocytes/100 leukocytes" /> <statusCode code= "completed" /> <effectiveTime value="284758113516" /> <value unit="%" xsi:type="PQ" value="24" /> <referenceRange> < observationRange> <text>12-44</text> </observationRange > </referenceRange> </observation> </component> < component> <observation moodCode="EVN" classCode="OBS"> < templateId root="2.16.840.1.298611.10..22.4.2" /> <id nullFlavor="NA " /> <code codeSystem="local" code="15825-0" displayName="Blood monocytes/100 leukocytes" /> <statusCode code="completed" /> < effectiveTime value="897942149651" /> <value unit="%" xsi:type="PQ " value="8" /> <referenceRange> <observationRange> <text>0-12</text> </observationRange> </referenceRange > </observation> </component> <component> <observation moodCode="EVN" classCode="OBS"> <templateId root= "2.16.840.1.100790.10.20.22.4.2" /> <id nullFlavor="NA" /> < code codeSystem="local" code="713-8" displayName="Automated blood eosinophils/ 100 leukocytes" /> <statusCode code="completed" /> < effectiveTime value="454994028445" /> <value unit="%" xsi:type="PQ " value="1" /> <referenceRange> <observationRange> <text>0-10</text> </observationRange> </referenceRange > </observation> </component> <component> <observation moodCode="EVN" classCode="OBS"> <templateId root= "2.16.840.1.160999.10..22.4.2" /> <id nullFlavor="NA" /> < code codeSystem="local" code="706-2" displayName="Automated blood basophils/100 leukocytes" /> <statusCode code="completed" /> <effectiveTime value="616729624778" /> <value unit="%" xsi:type="PQ" value="0" /> <referenceRange> <observationRange> <text>0-10 </text> </observationRange> </referenceRange> </ observation> </component> <component> <observation moodCode= "EVN" classCode="OBS"> <templateId root="2.16.840.1.521820.10.20.22.4.2 " /> <id nullFlavor="NA" /> <code codeSystem="local" code="751 -8" displayName="Blood neutrophils automated count (number/volume)" /> <statusCode code="completed" /> <effectiveTime value="247049909263" /> <value unit="10*3" xsi:type="PQ" value="4.7" /> < referenceRange> <observationRange> <text>1.8-7.8</text> </observationRange> </referenceRange> </observation > </component> <component> <observation moodCode="EVN" classCode="OBS"> <templateId root="2.16.840.1.828950.10..22.4.2" /> <id nullFlavor="NA" /> <code codeSystem="local" code="731-0" displayName="Blood lymphocytes automated count (number/volume)" /> < statusCode code="completed" /> <effectiveTime value="191841202237" /> <value unit="10*3" xsi:type="PQ" value="1.7" /> < referenceRange> <observationRange> <text>1.0-4.0</text> </observationRange> </referenceRange> </observation > </component> <component> <observation moodCode="EVN" classCode="OBS"> <templateId root="2.16.840.1.612526.10..22.4.2" /> <id nullFlavor="NA" /> <code codeSystem="local" code="742-7" displayName="Blood monocytes automated count (number/volume)" /> < statusCode code="completed" /> <effectiveTime value="785138920505" /> <value unit="10*3" xsi:type="PQ" value="0.6" /> < referenceRange> <observationRange> <text>0.0-1.0</text> </observationRange> </referenceRange> </observation > </component> <component> <observation moodCode="EVN" classCode="OBS"> <templateId root="2.16.840.1.958774...4.2" /> <id nullFlavor="NA" /> <code codeSystem="local" code="711-2" displayName="Automated eosinophil count" /> <statusCode code="completed " /> <effectiveTime value="848555682381" /> <value unit="10*3/ uL" xsi:type="PQ" value="0.1" /> <referenceRange> < observationRange> <text>0.0-0.3</text> </ observationRange> </referenceRange> </observation> </ component> <component> <observation moodCode="EVN" classCode="OBS"> <templateId root="2.16.840.1.024930.02.09.22.4.2" /> <id nullFlavor="NA" /> <code codeSystem="local" code="704-7" displayName= "Automated blood basophil count (count/volume)" /> <statusCode code= "completed" /> <effectiveTime value="715820199403" /> <value unit="10*3/uL" xsi:type="PQ" value="0.0" /> <referenceRange> <observationRange> <text>0.0-0.1</text> </ observationRange> </referenceRange> </observation> </ component> </organizer> </entry> <entry> <organizer moodCode="EVN" classCode="BATTERY"> <templateId root="2.16.840.1.942436.02.09.22.4.1" /> <id nullFlavor="NA" /> <code codeSystem="local" code="66525-7" displayName="Comprehensive metabolic panel" /> <statusCode code="completed " /> <component> <observation moodCode="EVN" classCode="OBS"> <templateId root="2.16.840.1.934779.10.20.22.4.2" /> <id nullFlavor ="NA" /> <code codeSystem="local" code="2951-2" displayName="Serum or plasma sodium measurement (moles/volume)" /> <statusCode code= "completed" /> <effectiveTime value="286752854149" /> <value unit="mmol/L" xsi:type="PQ" value="138" /> <referenceRange> <observationRange> <text>135-145</text> </ observationRange> </referenceRange> </observation> </ component> <component> <observation moodCode="EVN" classCode="OBS"> <templateId root="216.840.1.061822.10..22.4.2" /> <id nullFlavor="NA" /> <code codeSystem="local" code="2823-3" displayName= "Serum or plasma potassium measurement (moles/volume)" /> <statusCode code="completed" /> <effectiveTime value="264382213744" /> < value unit="mmol/L" xsi:type="PQ" value="4.0" /> <referenceRange> <observationRange> <text>3.6-5.0</text> </ observationRange> </referenceRange> </observation> </ component> <component> <observation moodCode="EVN" classCode="OBS"> <templateId root="2.16.840.1.840003.10.20.22.4.2" /> <id nullFlavor="NA" /> <code codeSystem="local" code="" displayName= "Serum or plasma chloride measurement (moles/volume)" /> <statusCode code="completed" /> <effectiveTime value="198321105114" /> < value unit="mmol/L" xsi:type="PQ" value="106" /> <referenceRange> <observationRange> <text>98-107</text> </ observationRange> </referenceRange> </observation> </ component> <component> <observation moodCode="EVN" classCode="OBS"> <templateId root="2.16.840.1.719887.10.20.22.4.2" /> <id nullFlavor="NA" /> <code codeSystem="local" code="2027-12" displayName= "Carbon dioxide" /> <statusCode code="completed" /> < effectiveTime value="449858869748" /> <value unit="mmol/L" xsi:type="PQ " value="25" /> <referenceRange> <observationRange> <text>21-32</text> </observationRange> </ referenceRange> </observation> </component> <component> <observation moodCode="EVN" classCode="OBS"> <templateId root= "2.16.840.1.639872.10.20.22.4.2" /> <id nullFlavor="NA" /> < code codeSystem="local" code="48548-4" displayName="Serum or plasma anion gap determination (moles/volume)" /> <statusCode code="completed" /> <effectiveTime value="815736724064" /> <value unit="mmol/L" xsi: type="PQ" value="7" /> <referenceRange> <observationRange> <text>5-14</text> </observationRange> </ referenceRange> </observation> </component> <component> <observation moodCode="EVN" classCode="OBS"> <templateId root= "2.16.840.1.208431.10.20.22.4.2" /> <id nullFlavor="NA" /> < code codeSystem="local" code="3094-0" displayName="Serum or plasma urea nitrogen measurement (mass/volume)" /> <statusCode code="completed" /> <effectiveTime value="773426868586" /> <value unit="mg/dL" xsi:type="PQ" value="9" /> <referenceRange> < observationRange> <text>7-18</text> </observationRange> </referenceRange> </observation> </component> < component> <observation moodCode="EVN" classCode="OBS"> < templateId root="2.16.840.1.167512.10..22.4.2" /> <id nullFlavor="NA " /> <code codeSystem="local" code="2160-0" displayName="Serum or plasma creatinine measurement (mass/volume)" /> <statusCode code= "completed" /> <effectiveTime value="281027863307" /> <value unit="mg/dL" xsi:type="PQ" value="0.67" /> <referenceRange> <observationRange> <text>0.60-1.30</text> </ observationRange> </referenceRange> </observation> </ component> <component> <observation moodCode="EVN" classCode="OBS"> <templateId root="2.16.840.1.161588.10.20.22.4.2" /> <id nullFlavor="NA" /> <code codeSystem="local" code="3097-3" displayName= "Serum or plasma urea nitrogen/creatinine mass ratio" /> <statusCode code="completed" /> <effectiveTime value="645442874567" /> < value unit="" xsi:type="PQ" value="13" /> <referenceRange> < observationRange> <text>NRG</text> </observationRange> </referenceRange> </observation> </component> < component> <observation moodCode="EVN" classCode="OBS"> < templateId root="2.16.840.1.611270.10.20.22.4.2" /> <id nullFlavor="NA " /> <code codeSystem="local" code="00169-5" displayName="Serum or plasma creatinine measurement with calculation of estimated glomerular filtration rate" /> <statusCode code="completed" /> < effectiveTime value="382661671174" /> <value unit="" xsi:type="PQ" value=">" /> <referenceRange> <observationRange> <text>NRG</text> </observationRange> </referenceRange > </observation> </component> <component> <observation moodCode="EVN" classCode="OBS"> <templateId root= "216.840.1.217237.10..22.4.2" /> <id nullFlavor="NA" /> < code codeSystem="local" code="2345-7" displayName="Serum or plasma glucose measurement (mass/volume)" /> <statusCode code="completed" /> <effectiveTime value="985046594251" /> <value unit="mg/dL" xsi:type="PQ " value="92" /> <referenceRange> <observationRange> <text>70-105</text> </observationRange> </ referenceRange> </observation> </component> <component> <observation moodCode="EVN" classCode="OBS"> <templateId root= "2.16.840.1.374943.10.20.22.4.2" /> <id nullFlavor="NA" /> < code codeSystem="local" code="59173-2" displayName="Serum or plasma calcium measurement (mass/volume)" /> <statusCode code="completed" /> <effectiveTime value="697132933609" /> <value unit="mg/dL" xsi:type="PQ " value="9.4" /> <referenceRange> <observationRange> <text>8.5-10.1</text> </observationRange> </ referenceRange> </observation> </component> <component> <observation moodCode="EVN" classCode="OBS"> <templateId root= "2.16.840.1.367176.10.20.22.4.2" /> <id nullFlavor="NA" /> < code codeSystem="local" code="1974-05" displayName="Serum or plasma total bilirubin measurement (mass/volume)" /> <statusCode code="completed" / > <effectiveTime value="833148229653" /> <value unit="mg/dL" xsi:type="PQ" value="0.4" /> <referenceRange> < observationRange> <text>0.1-1.0</text> </ observationRange> </referenceRange> </observation> </ component> <component> <observation moodCode="EVN" classCode="OBS"> <templateId root="2.16.840.1.820877.10.20.22.4.2" /> <id nullFlavor="NA" /> <code codeSystem="local" code="6768-6" displayName= "Serum or plasma alkaline phosphatase measurement (enzymatic activity/volume)" / > <statusCode code="completed" /> <effectiveTime value= "477802646789" /> <value unit="U/L" xsi:type="PQ" value="57" /> <referenceRange> <observationRange> <text>40-136</ text> </observationRange> </referenceRange> </ observation> </component> <component> <observation moodCode= "EVN" classCode="OBS"> <templateId root="2.16.840.1.709943.10.20.22.4.2 " /> <id nullFlavor="NA" /> <code codeSystem="local" code= "1919-11" displayName="Serum or plasma aspartate aminotransferase measurement ( enzymatic activity/volume)" /> <statusCode code="completed" /> <effectiveTime value="521902315235" /> <value unit="U/L" xsi:type="PQ " value="16" /> <referenceRange> <observationRange> <text>5-34</text> </observationRange> </referenceRange > </observation> </component> <component> <observation moodCode="EVN" classCode="OBS"> <templateId root= "2.16.840.1.703845.10..22.4.2" /> <id nullFlavor="NA" /> < code codeSystem="local" code="17405-29" displayName="Serum or plasma alanine aminotransferase measurement (enzymatic activity/volume)" /> < statusCode code="completed" /> <effectiveTime value="264102879504" /> <value unit="U/L" xsi:type="PQ" value="13" /> <referenceRange > <observationRange> <text>0-55</text> </ observationRange> </referenceRange> </observation> </ component> <component> <observation moodCode="EVN" classCode="OBS"> <templateId root="2.16.840.1.038696.10.20.22.4.2" /> <id nullFlavor="NA" /> <code codeSystem="local" code="2885-2" displayName= "Serum or plasma protein measurement (mass/volume)" /> <statusCode code ="completed" /> <effectiveTime value="129200446004" /> <value unit="g/dL" xsi:type="PQ" value="7.8" /> <referenceRange> < observationRange> <text>6.4-8.2</text> </ observationRange> </referenceRange> </observation> </ component> <component> <observation moodCode="EVN" classCode="OBS"> <templateId root="06.08.840.1.604608.10.4.2" /> <id nullFlavor="NA" /> <code codeSystem="local" code="1751-7" displayName= "Serum or plasma albumin measurement (mass/volume)" /> <statusCode code ="completed" /> <effectiveTime value="463666572209" /> <value unit="g/dL" xsi:type="PQ" value="4.6" /> <interpretationCode codeSystem ="local" code="" /> <referenceRange> <observationRange> <text>3.2-4.5</text> </observationRange> </ referenceRange> </observation> </component> </organizer> </entry > <entry> <organizer moodCode="EVN" classCode="BATTERY"> <templateId root="06.08.840.1.313985.10..4.1" /> <id nullFlavor="NA" /> <code codeSystem="local" code="3040-3" displayName="Lipase" /> <statusCode code= "completed" /> <component> <observation moodCode="EVN" classCode= "OBS"> <templateId root="06.08.840.1.457135.02.09.22.4.2" /> < id nullFlavor="NA" /> <code codeSystem="local" code="3040-3" displayName="Lipase" /> <statusCode code="completed" /> < effectiveTime value="468672047575" /> <value unit="U/L" xsi:type="PQ" value="13" /> <referenceRange> <observationRange> <text>8-78</text> </observationRange> </referenceRange> </observation> </component> </organizer> </entry> <entry> < organizer moodCode="EVN" classCode="BATTERY"> <templateId root= "2.16.840.1.008181.10.20.22.4.1" /> <id nullFlavor="NA" /> <code codeSystem="local" code="1987-08" displayName="Serum or plasma C reactive protein measurement (mass/volume)" /> <statusCode code="completed" /> <component> <observation moodCode="EVN" classCode="OBS"> < templateId root="2.16.840.1.181098.10.20.22.4.2" /> <id nullFlavor="NA " /> <code codeSystem="local" code="1987-08" displayName="Serum or plasma C reactive protein measurement (mass/volume)" /> <statusCode code="completed" /> <effectiveTime value="215926815808" /> < value unit="mg/dL" xsi:type="PQ" value="0.04" /> <referenceRange> <observationRange> <text>0.00-0.50</text> </ observationRange> </referenceRange> </observation> </ component> </organizer> </entry> <entry> <organizer moodCode="EVN" classCode="BATTERY"> <templateId root="2.16.840.1.562361.10.20.22.4.1" /> <id nullFlavor="NA" /> <code codeSystem="local" code="5643-2" displayName="Serum or plasma ethanol measurement (mass/volume)" /> < statusCode code="completed" /> <component> <observation moodCode= "EVN" classCode="OBS"> <templateId root="216.840.1.447934.10..22.4.2 " /> <id nullFlavor="NA" /> <code codeSystem="local" code= "5643-2" displayName="Serum or plasma ethanol measurement (mass/volume)" /> <statusCode code="completed" /> <effectiveTime value= "856170687081" /> <value unit="mg/dL" xsi:type="PQ" value="<" /> <referenceRange> <observationRange> <text><10< /text> </observationRange> </referenceRange> </ observation> </component> </organizer> </entry> <entry> <organizer moodCode="EVN" classCode="BATTERY"> <templateId root= "216.840.1.150417.10..22.4.1" /> <id nullFlavor="NA" /> <code codeSystem="local" code="673154" displayName="Ct, Ng, Trich vag by AV" /> <statusCode code="completed" /> <component> <observation moodCode= "EVN" classCode="OBS"> <templateId root="216.840.1.985815.10..22.4.2 " /> <id nullFlavor="NA" /> <code codeSystem="local" code= "571769" displayName="Trich vag by AV" /> <statusCode code="completed " /> <effectiveTime value="219545280030" /> <value unit="" xsi :type="PQ" value="TNP" /> <referenceRange> <observationRange > <text /> </observationRange> </referenceRange > </observation> </component> <component> <observation moodCode="EVN" classCode="OBS"> <templateId root= "216.840.1.022771.02.09.22.4.2" /> <id nullFlavor="NA" /> < code codeSystem="local" code="037190" displayName="Chlamydia by AV" /> <statusCode code="completed" /> <effectiveTime value="725005024674" / > <value unit="" xsi:type="PQ" value="TNP" /> <referenceRange > <observationRange> <text /> </ observationRange> </referenceRange> </observation> </ component> <component> <observation moodCode="EVN" classCode="OBS"> <templateId root="840.1.244380.02.09.224.2" /> <id nullFlavor="NA" /> <code codeSystem="local" code="696950" displayName= "Gonococcus by AV" /> <statusCode code="completed" /> < effectiveTime value="611026781875" /> <value unit="" xsi:type="PQ" value="TNP" /> <referenceRange> <observationRange> <text /> </observationRange> </referenceRange> < /observation> </component> </organizer> </entry> <entry> < organizer moodCode="EVN" classCode="BATTERY"> <templateId root= "06.08.840.1.249974.02.09.22.4.1" /> <id nullFlavor="NA" /> <code codeSystem="local" code="ORD40" displayName="Thyroid Stimulating Hormone" /> <statusCode code="completed" /> <component> <observation moodCode ="EVN" classCode="OBS"> <templateId root= "06.08.840.1.263360.02.09.22.4.2" /> <id nullFlavor="NA" /> < code codeSystem="local" code="Res34" displayName="TSH" /> <statusCode code="completed" /> <effectiveTime value="" /> < value unit="mIU/mL" xsi:type="PQ" value="1.36" /> <referenceRange> <observationRange> <text>0.32-5.00</text> </ observationRange> </referenceRange> </observation> </ component> </organizer> </entry> <entry> <organizer moodCode="EVN" classCode="BATTERY"> <templateId root="216.840.1.728546.10...4.1" /> <id nullFlavor="NA" /> <code codeSystem="local" code="ZQZ4093" displayName="Urine Culture" /> <statusCode code="completed" /> < component> <observation moodCode="EVN" classCode="OBS"> < templateId root="2.16.840.1.906506.10...4.2" /> <id nullFlavor="NA " /> <code codeSystem="local" code="Ytj5342" displayName="MEDIA PLATED " /> <statusCode code="completed" /> <effectiveTime value= "" /> <value unit="" xsi:type="PQ" value="Setup at 15:06 on 12/14/2017" /> <referenceRange> <observationRange> <text /> </observationRange> </referenceRange> </observation> </component> <component> <observation moodCode ="EVN" classCode="OBS"> <templateId root= "2.16.840.1.979360.10...4.2" /> <id nullFlavor="NA" /> < code codeSystem="local" code="Qvm5784" displayName="CULTURE SOURCE" /> <statusCode code="completed" /> <effectiveTime value="" /> <value unit="" xsi:type="PQ" value="clean mykyqH3I9H\\" /> < referenceRange> <observationRange> <text /> < /observationRange> </referenceRange> </observation> </ component> </organizer> </entry> <entry> <organizer moodCode="EVN" classCode="BATTERY"> <templateId root="216.840.1.085094.10..22.4.1" /> <id nullFlavor="NA" /> <code codeSystem="local" code="Vea95603" displayName="Sensi" /> <statusCode code="completed" /> <component> <observation moodCode="EVN" classCode="OBS"> <templateId root= "216.840.1.681122.10...4.2" /> <id nullFlavor="NA" /> < code codeSystem="local" code="Qdt32056" displayName="FINAL CULTURE RESULTS" /> <statusCode code="completed" /> <effectiveTime value= "" /> <value unit="" xsi:type="PQ" value="Escherichia coli (Isolate 1)" /> <referenceRange> <observationRange> <text /> </observationRange> </referenceRange> </observation> </component> <component> <observation moodCode= "EVN" classCode="OBS"> <templateId root="16.840.1.798170.10..4.2 " /> <id nullFlavor="NA" /> <code codeSystem="local" code= "Qie2653" displayName="Ampicillin/Sulbactam" /> <statusCode code= "completed" /> <effectiveTime value="" /> <value unit="" xsi:type="PQ" value="<=8/4" /> <interpretationCode codeSystem="local" code="S" /> <referenceRange> < observationRange> <text /> </observationRange> </referenceRange> </observation> </component> <component> <observation moodCode="EVN" classCode="OBS"> <templateId root= "16.840.1.173031.10.20.22.4.2" /> <id nullFlavor="NA" /> < code codeSystem="local" code="Cel6214" displayName="Ampicillin" /> < statusCode code="completed" /> <effectiveTime value="" /> <value unit="" xsi:type="PQ" value="<=8" /> < interpretationCode codeSystem="local" code="S" /> <referenceRange> <observationRange> <text /> </observationRange> </referenceRange> </observation> </component> < component> <observation moodCode="EVN" classCode="OBS"> < templateId root="06.08.840.1.135712.10..4.2" /> <id nullFlavor="NA " /> <code codeSystem="local" code="Rtx5078" displayName="Amoxicillin/ K Clavulanate" /> <statusCode code="completed" /> < effectiveTime value="" /> <value unit="" xsi:type="PQ" value="<=8/4" /> <interpretationCode codeSystem="local" code="S" /> <referenceRange> <observationRange> <text /> </observationRange> </referenceRange> </observation> </component> <component> <observation moodCode="EVN" classCode ="OBS"> <templateId root="16.840.1.916705.10..22.4.2" /> < id nullFlavor="NA" /> <code codeSystem="local" code="Eox5547" displayName="Ceftriaxone" /> <statusCode code="completed" /> < effectiveTime value="921433807916" /> <value unit="" xsi:type="PQ" value="<=8" /> <interpretationCode codeSystem="local" code="S" /> <referenceRange> <observationRange> <text /> </observationRange> </referenceRange> </observation> </component> <component> <observation moodCode="EVN" classCode= "OBS"> <templateId root="2.16.840.1.594749.10.20.22.4.2" /> < id nullFlavor="NA" /> <code codeSystem="local" code="Irh1675" displayName="Ciprofloxacin" /> <statusCode code="completed" /> <effectiveTime value="836857640439" /> <value unit="" xsi:type="PQ" value="<=1" /> <interpretationCode codeSystem="local" code="S" /> <referenceRange> <observationRange> <text /> </observationRange> </referenceRange> </observation> </component> <component> <observation moodCode="EVN" classCode= "OBS"> <templateId root="2.16.840.1.281705.10..22.4.2" /> < id nullFlavor="NA" /> <code codeSystem="local" code="Wdp5630" displayName="Nitrofurantoin" /> <statusCode code="completed" /> <effectiveTime value="584392513781" /> <value unit="" xsi:type="PQ" value="<=32" /> <interpretationCode codeSystem="local" code="S" /> <referenceRange> <observationRange> <text /> </observationRange> </referenceRange> </observation> </component> <component> <observation moodCode="EVN" classCode= "OBS"> <templateId root="216.840.1.194604.10..22.4.2" /> < id nullFlavor="NA" /> <code codeSystem="local" code="Bce7629" displayName="Gentamicin" /> <statusCode code="completed" /> < effectiveTime value="" /> <value unit="" xsi:type="PQ" value="<=4" /> <interpretationCode codeSystem="local" code="S" /> <referenceRange> <observationRange> <text /> </observationRange> </referenceRange> </observation> </component> <component> <observation moodCode="EVN" classCode= "OBS"> <templateId root="16.840.1.501791...4.2" /> < id nullFlavor="NA" /> <code codeSystem="local" code="Cxy8217" displayName="Levofloxacin" /> <statusCode code="completed" /> <effectiveTime value="" /> <value unit="" xsi:type="PQ" value="<=2" /> <interpretationCode codeSystem="local" code="S" /> <referenceRange> <observationRange> <text /> </observationRange> </referenceRange> </observation> </component> <component> <observation moodCode="EVN" classCode= "OBS"> <templateId root="16.840.1.812152.10..22.4.2" /> < id nullFlavor="NA" /> <code codeSystem="local" code="Gwm3760" displayName="Trimethoprim/ Sulfamethoxazole" /> <statusCode code= "completed" /> <effectiveTime value="" /> <value unit="" xsi:type="PQ" value="<=2/38" /> <interpretationCode codeSystem="local" code="S" /> <referenceRange> < observationRange> <text /> </observationRange> </referenceRange> </observation> </component> <component> <observation moodCode="EVN" classCode="OBS"> <templateId root= "16.840.1.319437.10.20.22.4.2" /> <id nullFlavor="NA" /> < code codeSystem="local" code="Zkx9917" displayName="Tetracycline" /> < statusCode code="completed" /> <effectiveTime value="928914193608" /> <value unit="" xsi:type="PQ" value="<=4" /> < interpretationCode codeSystem="local" code="S" /> <referenceRange> <observationRange> <text /> </observationRange> </referenceRange> </observation> </component> < component> <observation moodCode="EVN" classCode="OBS"> < templateId root="06.08.840.1.479949.10...4.2" /> <id nullFlavor="NA " /> <code codeSystem="local" code="Orv2004" displayName="Amikacin" /> <statusCode code="completed" /> <effectiveTime value= "947689502115" /> <value unit="" xsi:type="PQ" value="<=16" /> <interpretationCode codeSystem="local" code="S" /> <referenceRange > <observationRange> <text /> </ observationRange> </referenceRange> </observation> </ component> <component> <observation moodCode="EVN" classCode="OBS"> <templateId root="16.840.1.453397.10.20.22.4.2" /> <id nullFlavor="NA" /> <code codeSystem="local" code="Ckm5671" displayName= "Aztreonam" /> <statusCode code="completed" /> <effectiveTime value="" /> <value unit="" xsi:type="PQ" value="<=8" /> <interpretationCode codeSystem="local" code="S" /> < referenceRange> <observationRange> <text /> < /observationRange> </referenceRange> </observation> </ component> <component> <observation moodCode="EVN" classCode="OBS"> <templateId root="2.16.840.1.080689.10..22.4.2" /> <id nullFlavor="NA" /> <code codeSystem="local" code="Yrl8715" displayName= "Ceftazidime" /> <statusCode code="completed" /> < effectiveTime value="" /> <value unit="" xsi:type="PQ" value="<=1" /> <interpretationCode codeSystem="local" code="S" /> <referenceRange> <observationRange> <text /> </observationRange> </referenceRange> </observation> </component> <component> <observation moodCode="EVN" classCode= "OBS"> <templateId root="2.16.840.1.947216.10..22.4.2" /> < id nullFlavor="NA" /> <code codeSystem="local" code="Nrf9107" displayName="Ceftazidime/K Clavulanate" /> <statusCode code="completed " /> <effectiveTime value="" /> <value unit="" xsi :type="PQ" value="<=0.25" /> <referenceRange> < observationRange> <text /> </observationRange> </referenceRange> </observation> </component> <component> <observation moodCode="EVN" classCode="OBS"> <templateId root= "216.840.1.783855.10..4.2" /> <id nullFlavor="NA" /> < code codeSystem="local" code="Cvh6348" displayName="Cephalothin" /> < statusCode code="completed" /> <effectiveTime value="" /> <value unit="" xsi:type="PQ" value="16" /> < interpretationCode codeSystem="local" code="I" /> <referenceRange> <observationRange> <text /> </observationRange> </referenceRange> </observation> </component> < component> <observation moodCode="EVN" classCode="OBS"> < templateId root="216.840.1.433865.02.09.22.4.2" /> <id nullFlavor="NA " /> <code codeSystem="local" code="Zqk4200" displayName="Cefotaxime" / > <statusCode code="completed" /> <effectiveTime value= "" /> <value unit="" xsi:type="PQ" value="<=2" /> <interpretationCode codeSystem="local" code="S" /> <referenceRange > <observationRange> <text /> </ observationRange> </referenceRange> </observation> </ component> <component> <observation moodCode="EVN" classCode="OBS"> <templateId root="216.840.1.320463.10..4.2" /> <id nullFlavor="NA" /> <code codeSystem="local" code="Czz2570" displayName= "Cefotaxime/K Clavulanate" /> <statusCode code="completed" /> <effectiveTime value="" /> <value unit="" xsi:type="PQ" value="<=0.5" /> <referenceRange> <observationRange> <text /> </observationRange> </referenceRange> </observation> </component> <component> <observation moodCode="EVN" classCode="OBS"> <templateId root= "216.840.1.243718.10.20.22.4.2" /> <id nullFlavor="NA" /> < code codeSystem="local" code="Nie9112" displayName="Cefoxitin" /> < statusCode code="completed" /> <effectiveTime value="882571417435" /> <value unit="" xsi:type="PQ" value="<=8" /> < interpretationCode codeSystem="local" code="S" /> <referenceRange> <observationRange> <text /> </observationRange> </referenceRange> </observation> </component> < component> <observation moodCode="EVN" classCode="OBS"> < templateId root="216.840.1.656219.10...4.2" /> <id nullFlavor="NA " /> <code codeSystem="local" code="Aus1440" displayName="Cefazolin" / > <statusCode code="completed" /> <effectiveTime value= "338279543026" /> <value unit="" xsi:type="PQ" value="<=8" /> <interpretationCode codeSystem="local" code="S" /> <referenceRange > <observationRange> <text /> </ observationRange> </referenceRange> </observation> </ component> <component> <observation moodCode="EVN" classCode="OBS"> <templateId root="16.840.1.102221.10.20.22.4.2" /> <id nullFlavor="NA" /> <code codeSystem="local" code="See2506" displayName= "Cefepime" /> <statusCode code="completed" /> <effectiveTime value="906365268156" /> <value unit="" xsi:type="PQ" value="<=8" /> <interpretationCode codeSystem="local" code="S" /> < referenceRange> <observationRange> <text /> < /observationRange> </referenceRange> </observation> </ component> <component> <observation moodCode="EVN" classCode="OBS"> <templateId root="2.16.840.1.012948.10..22.4.2" /> <id nullFlavor="NA" /> <code codeSystem="local" code="Xjd7420" displayName= "Cefuroxime" /> <statusCode code="completed" /> < effectiveTime value="882936788126" /> <value unit="" xsi:type="PQ" value="<=4" /> <interpretationCode codeSystem="local" code="S" /> <referenceRange> <observationRange> <text /> </observationRange> </referenceRange> </observation> </component> <component> <observation moodCode="EVN" classCode= "OBS"> <templateId root="2.16.840.1.482171.10..22.4.2" /> < id nullFlavor="NA" /> <code codeSystem="local" code="Elf3429" displayName="Ertapenem" /> <statusCode code="completed" /> < effectiveTime value="273698987901" /> <value unit="" xsi:type="PQ" value="<=1" /> <interpretationCode codeSystem="local" code="S" /> <referenceRange> <observationRange> <text /> </observationRange> </referenceRange> </observation> </component> <component> <observation moodCode="EVN" classCode= "OBS"> <templateId root="2.16.840.1.469548.10..4.2" /> < id nullFlavor="NA" /> <code codeSystem="local" code="Lpt6579" displayName="Imipenem" /> <statusCode code="completed" /> < effectiveTime value="" /> <value unit="" xsi:type="PQ" value="<=4" /> <interpretationCode codeSystem="local" code="S" /> <referenceRange> <observationRange> <text /> </observationRange> </referenceRange> </observation> </component> <component> <observation moodCode="EVN" classCode= "OBS"> <templateId root="216.840.1.314435.02.09.22.4.2" /> < id nullFlavor="NA" /> <code codeSystem="local" code="Npq1189" displayName="Meropenem" /> <statusCode code="completed" /> < effectiveTime value="" /> <value unit="" xsi:type="PQ" value="<=4" /> <interpretationCode codeSystem="local" code="S" /> <referenceRange> <observationRange> <text /> </observationRange> </referenceRange> </observation> </component> <component> <observation moodCode="EVN" classCode= "OBS"> <templateId root="2.16.840.1.641734...4.2" /> < id nullFlavor="NA" /> <code codeSystem="local" code="Obe5336" displayName="Piperacillin/Tazobactam" /> <statusCode code="completed" / > <effectiveTime value="" /> <value unit="" xsi: type="PQ" value="<=16" /> <interpretationCode codeSystem="local" code="S" /> <referenceRange> <observationRange> <text /> </observationRange> </referenceRange> </ observation> </component> <component> <observation moodCode= "EVN" classCode="OBS"> <templateId root="216.840.1.008994...4.2 " /> <id nullFlavor="NA" /> <code codeSystem="local" code= "Unc9621" displayName="Piperacillin" /> <statusCode code="completed" / > <effectiveTime value="991731930161" /> <value unit="" xsi: type="PQ" value="<=16" /> <interpretationCode codeSystem="local" code="S" /> <referenceRange> <observationRange> <text /> </observationRange> </referenceRange> </ observation> </component> <component> <observation moodCode= "EVN" classCode="OBS"> <templateId root="216.840.1.580198.02.09.22.4.2 " /> <id nullFlavor="NA" /> <code codeSystem="local" code= "Jmp7063" displayName="Tigecycline" /> <statusCode code="completed" /> <effectiveTime value="997625061361" /> <value unit="" xsi: type="PQ" value="<=2" /> <interpretationCode codeSystem="local" code ="S" /> <referenceRange> <observationRange> < text /> </observationRange> </referenceRange> </ observation> </component> <component> <observation moodCode= "EVN" classCode="OBS"> <templateId root="216.840.1.733522.02.09.22.4.2 " /> <id nullFlavor="NA" /> <code codeSystem="local" code= "Svs4993" displayName="Tobramycin" /> <statusCode code="completed" /> <effectiveTime value="864058049769" /> <value unit="" xsi:type ="PQ" value="<=4" /> <interpretationCode codeSystem="local" code="S " /> <referenceRange> <observationRange> <text /> </observationRange> </referenceRange> </ observation> </component> </organizer> </entry> <entry> <organizer moodCode="EVN" classCode="BATTERY"> <templateId root= "16.840.1.913516.02.09.22.4.1" /> <id nullFlavor="NA" /> <code codeSystem="local" code="75922-0" displayName="Complete urinalysis with reflex to culture" /> <statusCode code="completed" /> <component> < observation moodCode="EVN" classCode="OBS"> <templateId root= "16.840.1.416827.10..4.2" /> <id nullFlavor="NA" /> < code codeSystem="local" code="5778-6" displayName="Urine color determination" / > <statusCode code="completed" /> <effectiveTime value= "870372831524" /> <value unit="" xsi:type="PQ" value="YELLOW" /> <referenceRange> <observationRange> <text>NRG</text > </observationRange> </referenceRange> </observation > </component> <component> <observation moodCode="EVN" classCode="OBS"> <templateId root="16.840.1.184854.10..4.2" /> <id nullFlavor="NA" /> <code codeSystem="local" code="93721-8 " displayName="Urine clarity determination" /> <statusCode code= "completed" /> <effectiveTime value="328144556843" /> <value unit="" xsi:type="PQ" value="CLEAR" /> <referenceRange> < observationRange> <text>NRG</text> </observationRange> </referenceRange> </observation> </component> < component> <observation moodCode="EVN" classCode="OBS"> < templateId root="2.16.840.1.181527.10.20.22.4.2" /> <id nullFlavor="NA " /> <code codeSystem="local" code="5803-2" displayName="Urine pH measurement by test strip" /> <statusCode code="completed" /> <effectiveTime value="199114512277" /> <value unit="" xsi:type="PQ" value="6" /> <referenceRange> <observationRange> <text>5-9</text> </observationRange> </referenceRange> </observation> </component> <component> <observation moodCode="EVN" classCode="OBS"> <templateId root= "2.16.840.1.169697.10.20.22.4.2" /> <id nullFlavor="NA" /> < code codeSystem="local" code="5811-5" displayName="Specific gravity of urine by test strip" /> <statusCode code="completed" /> <effectiveTime value="404026928979" /> <value unit="" xsi:type="PQ" value="1.015" /> <interpretationCode codeSystem="local" code="" /> < referenceRange> <observationRange> <text>1.016-1.022</ text> </observationRange> </referenceRange> </ observation> </component> <component> <observation moodCode= "EVN" classCode="OBS"> <templateId root="16.840.1.912646.10..22.4.2 " /> <id nullFlavor="NA" /> <code codeSystem="local" code= "32191-6" displayName="Urine protein assay by test strip, semi-quantitative" /> <statusCode code="completed" /> <effectiveTime value= "588837750357" /> <value unit="" xsi:type="PQ" value="NEGATIVE" /> <referenceRange> <observationRange> <text>NEGATIVE </text> </observationRange> </referenceRange> </ observation> </component> <component> <observation moodCode= "EVN" classCode="OBS"> <templateId root="06.08.840.1.383550.10..22.4.2 " /> <id nullFlavor="NA" /> <code codeSystem="local" code= "08093-8" displayName="Urine glucose detection by automated test strip" /> <statusCode code="completed" /> <effectiveTime value="728762213574 " /> <value unit="" xsi:type="PQ" value="NEGATIVE" /> < referenceRange> <observationRange> <text>NEGATIVE</text > </observationRange> </referenceRange> </observation > </component> <component> <observation moodCode="EVN" classCode="OBS"> <templateId root="06.08.840.1.328928.10.20.22.4.2" /> <id nullFlavor="NA" /> <code codeSystem="local" code="81031-5 " displayName="Erythrocytes detection in urine sediment by light microscopy" /> <statusCode code="completed" /> <effectiveTime value= "064099056604" /> <value unit="" xsi:type="PQ" value="1+" /> < interpretationCode codeSystem="local" code="*" /> <referenceRange> <observationRange> <text>NEGATIVE</text> </ observationRange> </referenceRange> </observation> </ component> <component> <observation moodCode="EVN" classCode="OBS"> <templateId root="16.840.1.912879.10.20.22.4.2" /> <id nullFlavor="NA" /> <code codeSystem="local" code="70879-6" displayName= "Urine ketones detection by automated test strip" /> <statusCode code= "completed" /> <effectiveTime value="018912320347" /> <value unit="" xsi:type="PQ" value="NEGATIVE" /> <referenceRange> < observationRange> <text>NEGATIVE</text> </ observationRange> </referenceRange> </observation> </ component> <component> <observation moodCode="EVN" classCode="OBS"> <templateId root="06.08.840.1.639166.102022.4.2" /> <id nullFlavor="NA" /> <code codeSystem="local" code="5802-4" displayName= "Urine nitrite detection by test strip" /> <statusCode code="completed " /> <effectiveTime value="704569286547" /> <value unit="" xsi :type="PQ" value="NEGATIVE" /> <referenceRange> < observationRange> <text>NEGATIVE</text> </ observationRange> </referenceRange> </observation> </ component> <component> <observation moodCode="EVN" classCode="OBS"> <templateId root="06.08.840.1.366290.10.20.22.4.2" /> <id nullFlavor="NA" /> <code codeSystem="local" code="5770-3" displayName= "Urine total bilirubin detection by test strip" /> <statusCode code= "completed" /> <effectiveTime value="472958816041" /> <value unit="" xsi:type="PQ" value="NEGATIVE" /> <referenceRange> < observationRange> <text>NEGATIVE</text> </ observationRange> </referenceRange> </observation> </ component> <component> <observation moodCode="EVN" classCode="OBS"> <templateId root="216.840.1.567330.10..4.2" /> <id nullFlavor="NA" /> <code codeSystem="local" code="58541-3" displayName= "Urine urobilinogen measurement by automated test strip (mass/volume)" /> <statusCode code="completed" /> <effectiveTime value="003971353569 " /> <value unit="" xsi:type="PQ" value="NORMAL" /> < referenceRange> <observationRange> <text>NORMAL</text> </observationRange> </referenceRange> </observation> </component> <component> <observation moodCode="EVN" classCode ="OBS"> <templateId root="06.08.840.1.402175.10..4.2" /> < id nullFlavor="NA" /> <code codeSystem="local" code="5799-2" displayName="Urine leukocyte esterase detection by dipstick" /> < statusCode code="completed" /> <effectiveTime value="248196154666" /> <value unit="" xsi:type="PQ" value="NEGATIVE" /> < referenceRange> <observationRange> <text>NEGATIVE</text > </observationRange> </referenceRange> </observation > </component> <component> <observation moodCode="EVN" classCode="OBS"> <templateId root="16.840.1.107877.10..4.2" /> <id nullFlavor="NA" /> <code codeSystem="local" code="57480-5 " displayName="Automated urine sediment erythrocyte count by microscopy (number/ high power field)" /> <statusCode code="completed" /> < effectiveTime value="093903202444" /> <value unit="[HPF]" xsi:type="PQ " value="" /> <referenceRange> <observationRange> <text>NRG</text> </observationRange> </referenceRange> </observation> </component> <component> <observation moodCode="EVN" classCode="OBS"> <templateId root= "2.16.840.1.116563.10..4.2" /> <id nullFlavor="NA" /> < code codeSystem="local" code="5821-4" displayName="Automated urine sediment leukocyte count by microscopy (number/high power field)" /> < statusCode code="completed" /> <effectiveTime value="086968009469" /> <value unit="" xsi:type="PQ" value="RARE" /> <referenceRange> <observationRange> <text>NRG</text> </ observationRange> </referenceRange> </observation> </ component> <component> <observation moodCode="EVN" classCode="OBS"> <templateId root="2.16.840.1.995688.10.4.2" /> <id nullFlavor="NA" /> <code codeSystem="local" code="69697-1" displayName= "Bacteria detection in urine sediment by light microscopy" /> < statusCode code="completed" /> <effectiveTime value="092667355582" /> <value unit="" xsi:type="PQ" value="TRACE" /> <referenceRange > <observationRange> <text>NRG</text> </ observationRange> </referenceRange> </observation> </ component> <component> <observation moodCode="EVN" classCode="OBS"> <templateId root="216.840.1.211760.10..22.4.2" /> <id nullFlavor="NA" /> <code codeSystem="local" code="41467-9" displayName= "Squamous epithelial cells detection in urine sediment by light microscopy" /> <statusCode code="completed" /> <effectiveTime value= "775583039197" /> <value unit="" xsi:type="PQ" value="5-10" /> <referenceRange> <observationRange> <text>NRG</text> </observationRange> </referenceRange> </observation> </component> <component> <observation moodCode="EVN" classCode ="OBS"> <templateId root="216.840.1.037215.22.4.2" /> < id nullFlavor="NA" /> <code codeSystem="local" code="25721-5" displayName="Crystals detection in urine sediment by light microscopy" /> <statusCode code="completed" /> <effectiveTime value="157415723108 " /> <value unit="" xsi:type="PQ" value="NONE" /> < referenceRange> <observationRange> <text>NRG</text> </observationRange> </referenceRange> </observation> </component> <component> <observation moodCode="EVN" classCode= "OBS"> <templateId root="216.840.1.512345.10..22.4.2" /> < id nullFlavor="NA" /> <code codeSystem="local" code="85922-0" displayName="Casts detection in urine sediment by light microscopy" /> <statusCode code="completed" /> <effectiveTime value="028715530148" /> <value unit="" xsi:type="PQ" value="NONE" /> <referenceRange > <observationRange> <text>NRG</text> </ observationRange> </referenceRange> </observation> </ component> <component> <observation moodCode="EVN" classCode="OBS"> <templateId root="16.840.1.033081.10.20.22.4.2" /> <id nullFlavor="NA" /> <code codeSystem="local" code="8247-9" displayName= "Mucus detection in urine sediment by light microscopy" /> <statusCode code="completed" /> <effectiveTime value="216308951794" /> < value unit="" xsi:type="PQ" value="SMALL" /> <interpretationCode codeSystem="local" code="*" /> <referenceRange> < observationRange> <text>NRG</text> </observationRange> </referenceRange> </observation> </component> < component> <observation moodCode="EVN" classCode="OBS"> < templateId root="06.08.840.1.447238.10..4.2" /> <id nullFlavor="NA " /> <code codeSystem="local" code="64900-5" displayName="Complete urinalysis with reflex to culture" /> <statusCode code="completed" /> <effectiveTime value="794549811597" /> <value unit="" xsi:type ="PQ" value="NO" /> <referenceRange> <observationRange> <text>NRG</text> </observationRange> </ referenceRange> </observation> </component> </organizer> </entry > <entry> <organizer moodCode="EVN" classCode="BATTERY"> <templateId root="16.840.1.077409.10.20.22.4.1" /> <id nullFlavor="NA" /> <code codeSystem="local" code="71675-0" displayName="Complete blood count (CBC) with automated white blood cell (WBC) differential" /> <statusCode code= "completed" /> <component> <observation moodCode="EVN" classCode= "OBS"> <templateId root="2.16.840.1.886694.10.20.22.4.2" /> < id nullFlavor="NA" /> <code codeSystem="local" code="6690-2" displayName="Blood leukocytes automated count (number/volume)" /> < statusCode code="completed" /> <effectiveTime value="125262982139" /> <value unit="10*3/uL" xsi:type="PQ" value="4.8" /> < referenceRange> <observationRange> <text>4.3-11.0</text > </observationRange> </referenceRange> </observation > </component> <component> <observation moodCode="EVN" classCode="OBS"> <templateId root="16.840.1.502883.10..22.4.2" /> <id nullFlavor="NA" /> <code codeSystem="local" code="789-8" displayName="Blood erythrocytes automated count (number/volume)" /> < statusCode code="completed" /> <effectiveTime value="678211150154" /> <value unit="10*6/uL" xsi:type="PQ" value="4.24" /> < interpretationCode codeSystem="local" code="" /> <referenceRange> <observationRange> <text>4.35-5.85</text> </ observationRange> </referenceRange> </observation> </ component> <component> <observation moodCode="EVN" classCode="OBS"> <templateId root="216.840.1.836858.02.09.22.4.2" /> <id nullFlavor="NA" /> <code codeSystem="local" code="61464-4" displayName= "Venous blood hemoglobin measurement (mass/volume)" /> <statusCode code ="completed" /> <effectiveTime value="870497666482" /> <value unit="g/dL" xsi:type="PQ" value="14.5" /> <referenceRange> < observationRange> <text>11.5-16.0</text> </ observationRange> </referenceRange> </observation> </ component> <component> <observation moodCode="EVN" classCode="OBS"> <templateId root="2.16.840.1.567578.02.09.22.4.2" /> <id nullFlavor="NA" /> <code codeSystem="local" code="74824-5" displayName= "Blood hematocrit (volume fraction)" /> <statusCode code="completed" / > <effectiveTime value="215195276570" /> <value unit="%" xsi:type="PQ" value="43" /> <referenceRange> < observationRange> <text>35-52</text> </observationRange > </referenceRange> </observation> </component> < component> <observation moodCode="EVN" classCode="OBS"> < templateId root="2.16.840.1.542858.10..4.2" /> <id nullFlavor="NA " /> <code codeSystem="local" code="787-2" displayName="Automated erythrocyte mean corpuscular volume" /> <statusCode code="completed" / > <effectiveTime value="269211934991" /> <value unit="[foz_us] " xsi:type="PQ" value="101" /> <interpretationCode codeSystem="local" code="" /> <referenceRange> <observationRange> <text>80-99</text> </observationRange> </referenceRange> </observation> </component> <component> <observation moodCode="EVN" classCode="OBS"> <templateId root= "216.840.1.144209.10.20.22.4.2" /> <id nullFlavor="NA" /> < code codeSystem="local" code="785-6" displayName="Automated erythrocyte mean corpuscular hemoglobin (mass per erythrocyte)" /> <statusCode code= "completed" /> <effectiveTime value="522815081263" /> <value unit="pg" xsi:type="PQ" value="34" /> <referenceRange> < observationRange> <text>25-34</text> </observationRange > </referenceRange> </observation> </component> < component> <observation moodCode="EVN" classCode="OBS"> < templateId root="16.840.1.331640.10..22.4.2" /> <id nullFlavor="NA " /> <code codeSystem="local" code="786-4" displayName="Automated erythrocyte mean corpuscular hemoglobin concentration measurement (mass/volume) " /> <statusCode code="completed" /> <effectiveTime value= "279899799916" /> <value unit="g/dL" xsi:type="PQ" value="34" /> <referenceRange> <observationRange> <text>32-36</ text> </observationRange> </referenceRange> </ observation> </component> <component> <observation moodCode= "EVN" classCode="OBS"> <templateId root="216.840.1.362000.10.20.22.4.2 " /> <id nullFlavor="NA" /> <code codeSystem="local" code="788 -0" displayName="Automated erythrocyte distribution width ratio" /> < statusCode code="completed" /> <effectiveTime value="796996669610" /> <value unit="%" xsi:type="PQ" value="13.0" /> < referenceRange> <observationRange> <text>10.0-14.5</text > </observationRange> </referenceRange> </observation > </component> <component> <observation moodCode="EVN" classCode="OBS"> <templateId root="2.16.840.1.304169.10.20.22.4.2" /> <id nullFlavor="NA" /> <code codeSystem="local" code="777-3" displayName="Automated blood platelet count (count/volume)" /> < statusCode code="completed" /> <effectiveTime value="520909564815" /> <value unit="10*3/uL" xsi:type="PQ" value="390" /> < referenceRange> <observationRange> <text>130-400</text> </observationRange> </referenceRange> </observation > </component> <component> <observation moodCode="EVN" classCode="OBS"> <templateId root="2.16.840.1.540803.10.20.22.4.2" /> <id nullFlavor="NA" /> <code codeSystem="local" code="65815-2 " displayName="Automated blood platelet mean volume measurement" /> < statusCode code="completed" /> <effectiveTime value="182221117751" /> <value unit="[foz_us]" xsi:type="PQ" value="8.6" /> < referenceRange> <observationRange> <text>7.4-10.4</text > </observationRange> </referenceRange> </observation > </component> <component> <observation moodCode="EVN" classCode="OBS"> <templateId root="2.16.840.1.217349.10.20.22.4.2" /> <id nullFlavor="NA" /> <code codeSystem="local" code="770-8" displayName="Automated blood neutrophils/100 leukocytes" /> < statusCode code="completed" /> <effectiveTime value="537885225225" /> <value unit="%" xsi:type="PQ" value="60" /> < referenceRange> <observationRange> <text>42-75</text> </observationRange> </referenceRange> </observation> </component> <component> <observation moodCode="EVN" classCode= "OBS"> <templateId root="2.16.840.1.505513.10.20.22.4.2" /> < id nullFlavor="NA" /> <code codeSystem="local" code="736-9" displayName ="Automated blood lymphocytes/100 leukocytes" /> <statusCode code= "completed" /> <effectiveTime value="151249315203" /> <value unit="%" xsi:type="PQ" value="31" /> <referenceRange> < observationRange> <text>12-44</text> </observationRange > </referenceRange> </observation> </component> < component> <observation moodCode="EVN" classCode="OBS"> < templateId root="2.16.840.1.666028.10.20.22.4.2" /> <id nullFlavor="NA " /> <code codeSystem="local" code="65073-8" displayName="Blood monocytes/100 leukocytes" /> <statusCode code="completed" /> < effectiveTime value="977724030690" /> <value unit="%" xsi:type="PQ " value="8" /> <referenceRange> <observationRange> <text>0-12</text> </observationRange> </referenceRange > </observation> </component> <component> <observation moodCode="EVN" classCode="OBS"> <templateId root= "2.16.840.1.730658.10..4.2" /> <id nullFlavor="NA" /> < code codeSystem="local" code="713-8" displayName="Automated blood eosinophils/ 100 leukocytes" /> <statusCode code="completed" /> < effectiveTime value="864055539851" /> <value unit="%" xsi:type="PQ " value="0" /> <referenceRange> <observationRange> <text>0-10</text> </observationRange> </referenceRange > </observation> </component> <component> <observation moodCode="EVN" classCode="OBS"> <templateId root= "2.16.840.1.581657.02.09.22.4.2" /> <id nullFlavor="NA" /> < code codeSystem="local" code="706-2" displayName="Automated blood basophils/100 leukocytes" /> <statusCode code="completed" /> <effectiveTime value="566303343146" /> <value unit="%" xsi:type="PQ" value="0" /> <referenceRange> <observationRange> <text>0-10 </text> </observationRange> </referenceRange> </ observation> </component> <component> <observation moodCode= "EVN" classCode="OBS"> <templateId root="2.16.840.1.014798.10..22.4.2 " /> <id nullFlavor="NA" /> <code codeSystem="local" code="751 -8" displayName="Blood neutrophils automated count (number/volume)" /> <statusCode code="completed" /> <effectiveTime value="686481415636" /> <value unit="10*3" xsi:type="PQ" value="2.9" /> < referenceRange> <observationRange> <text>1.8-7.8</text> </observationRange> </referenceRange> </observation > </component> <component> <observation moodCode="EVN" classCode="OBS"> <templateId root="216.840.1.136739.10.2022.4.2" /> <id nullFlavor="NA" /> <code codeSystem="local" code="731-0" displayName="Blood lymphocytes automated count (number/volume)" /> < statusCode code="completed" /> <effectiveTime value="187146221600" /> <value unit="10*3" xsi:type="PQ" value="1.5" /> < referenceRange> <observationRange> <text>1.0-4.0</text> </observationRange> </referenceRange> </observation > </component> <component> <observation moodCode="EVN" classCode="OBS"> <templateId root="216.840.1.896302.1022.4.2" /> <id nullFlavor="NA" /> <code codeSystem="local" code="742-7" displayName="Blood monocytes automated count (number/volume)" /> < statusCode code="completed" /> <effectiveTime value="700426753007" /> <value unit="10*3" xsi:type="PQ" value="0.4" /> < referenceRange> <observationRange> <text>0.0-1.0</text> </observationRange> </referenceRange> </observation > </component> <component> <observation moodCode="EVN" classCode="OBS"> <templateId root="216.840.1.774051.10..4.2" /> <id nullFlavor="NA" /> <code codeSystem="local" code="711-2" displayName="Automated eosinophil count" /> <statusCode code="completed " /> <effectiveTime value="342008232592" /> <value unit="10*3/ uL" xsi:type="PQ" value="0.0" /> <referenceRange> < observationRange> <text>0.0-0.3</text> </ observationRange> </referenceRange> </observation> </ component> <component> <observation moodCode="EVN" classCode="OBS"> <templateId root="216.840.1.830059.02.09.22.4.2" /> <id nullFlavor="NA" /> <code codeSystem="local" code="704-7" displayName= "Automated blood basophil count (count/volume)" /> <statusCode code= "completed" /> <effectiveTime value="534571916151" /> <value unit="10*3/uL" xsi:type="PQ" value="0.0" /> <referenceRange> <observationRange> <text>0.0-0.1</text> </ observationRange> </referenceRange> </observation> </ component> </organizer> </entry> <entry> <organizer moodCode="EVN" classCode="BATTERY"> <templateId root="16.840.1.354683.10.4.1" /> <id nullFlavor="NA" /> <code codeSystem="local" code="21786-4" displayName="Comprehensive metabolic panel" /> <statusCode code="completed " /> <component> <observation moodCode="EVN" classCode="OBS"> <templateId root="06.08.840.1.955123.02.09.22.4.2" /> <id nullFlavor ="NA" /> <code codeSystem="local" code="2951-2" displayName="Serum or plasma sodium measurement (moles/volume)" /> <statusCode code= "completed" /> <effectiveTime value="389410011369" /> <value unit="mmol/L" xsi:type="PQ" value="137" /> <referenceRange> <observationRange> <text>135-145</text> </ observationRange> </referenceRange> </observation> </ component> <component> <observation moodCode="EVN" classCode="OBS"> <templateId root="2.16.840.1.092716.02.09.22.4.2" /> <id nullFlavor="NA" /> <code codeSystem="local" code="2823-3" displayName= "Serum or plasma potassium measurement (moles/volume)" /> <statusCode code="completed" /> <effectiveTime value="083728924039" /> < value unit="mmol/L" xsi:type="PQ" value="3.8" /> <referenceRange> <observationRange> <text>3.6-5.0</text> </ observationRange> </referenceRange> </observation> </ component> <component> <observation moodCode="EVN" classCode="OBS"> <templateId root="2.16.840.1.647235.02.09.22.4.2" /> <id nullFlavor="NA" /> <code codeSystem="local" code="2075-0" displayName= "Serum or plasma chloride measurement (moles/volume)" /> <statusCode code="completed" /> <effectiveTime value="080109620772" /> < value unit="mmol/L" xsi:type="PQ" value="105" /> <referenceRange> <observationRange> <text>98-107</text> </ observationRange> </referenceRange> </observation> </ component> <component> <observation moodCode="EVN" classCode="OBS"> <templateId root="2.16.840.1.173835.10.20.22.4.2" /> <id nullFlavor="NA" /> <code codeSystem="local" code="2027-12" displayName= "Carbon dioxide" /> <statusCode code="completed" /> < effectiveTime value="767982164985" /> <value unit="mmol/L" xsi:type="PQ " value="20" /> <interpretationCode codeSystem="local" code="" /> <referenceRange> <observationRange> <text>21-32</ text> </observationRange> </referenceRange> </ observation> </component> <component> <observation moodCode= "EVN" classCode="OBS"> <templateId root="06.08.840.1.270646.10...4.2 " /> <id nullFlavor="NA" /> <code codeSystem="local" code= "91750-9" displayName="Serum or plasma anion gap determination (moles/volume)" / > <statusCode code="completed" /> <effectiveTime value= "654320625336" /> <value unit="mmol/L" xsi:type="PQ" value="12" /> <referenceRange> <observationRange> <text>5-14</ text> </observationRange> </referenceRange> </ observation> </component> <component> <observation moodCode= "EVN" classCode="OBS"> <templateId root="216.840.1.636828.10..22.4.2 " /> <id nullFlavor="NA" /> <code codeSystem="local" code= "3094-0" displayName="Serum or plasma urea nitrogen measurement (mass/volume)" / > <statusCode code="completed" /> <effectiveTime value= "201272406168" /> <value unit="mg/dL" xsi:type="PQ" value="8" /> <referenceRange> <observationRange> <text>7-18</text > </observationRange> </referenceRange> </observation > </component> <component> <observation moodCode="EVN" classCode="OBS"> <templateId root="2.16.840.1.961987.10.20.22.4.2" /> <id nullFlavor="NA" /> <code codeSystem="local" code="2160-0" displayName="Serum or plasma creatinine measurement (mass/volume)" /> < statusCode code="completed" /> <effectiveTime value="541985963570" /> <value unit="mg/dL" xsi:type="PQ" value="0.78" /> < referenceRange> <observationRange> <text>0.60-1.30</text > </observationRange> </referenceRange> </observation > </component> <component> <observation moodCode="EVN" classCode="OBS"> <templateId root="2.16.840.1.894960.10.20.22.4.2" /> <id nullFlavor="NA" /> <code codeSystem="local" code="3097-3" displayName="Serum or plasma urea nitrogen/creatinine mass ratio" /> < statusCode code="completed" /> <effectiveTime value="487921119928" /> <value unit="" xsi:type="PQ" value="10" /> <referenceRange> <observationRange> <text>NRG</text> </ observationRange> </referenceRange> </observation> </ component> <component> <observation moodCode="EVN" classCode="OBS"> <templateId root="2.16.840.1.831048.10..22.4.2" /> <id nullFlavor="NA" /> <code codeSystem="local" code="04998-0" displayName= "Serum or plasma creatinine measurement with calculation of estimated glomerular filtration rate" /> <statusCode code="completed" /> <effectiveTime value="504067035274" /> <value unit="" xsi:type="PQ" value=">" /> <referenceRange> <observationRange> <text>NRG</text> </observationRange> </referenceRange > </observation> </component> <component> <observation moodCode="EVN" classCode="OBS"> <templateId root= "216.840.1.393443.10..22.4.2" /> <id nullFlavor="NA" /> < code codeSystem="local" code="2345-7" displayName="Serum or plasma glucose measurement (mass/volume)" /> <statusCode code="completed" /> <effectiveTime value="774153366120" /> <value unit="mg/dL" xsi:type="PQ " value="109" /> <interpretationCode codeSystem="local" code="" /> <referenceRange> <observationRange> <text>70-105 </text> </observationRange> </referenceRange> </ observation> </component> <component> <observation moodCode= "EVN" classCode="OBS"> <templateId root="16.840.1.190963.10..22.4.2 " /> <id nullFlavor="NA" /> <code codeSystem="local" code= "25153-0" displayName="Serum or plasma calcium measurement (mass/volume)" /> <statusCode code="completed" /> <effectiveTime value= "687679592144" /> <value unit="mg/dL" xsi:type="PQ" value="9.9" /> <referenceRange> <observationRange> <text>8.5-10.1 </text> </observationRange> </referenceRange> </ observation> </component> <component> <observation moodCode= "EVN" classCode="OBS"> <templateId root="2.16.840.1.923357.10.20.22.4.2 " /> <id nullFlavor="NA" /> <code codeSystem="local" code= "1974-05" displayName="Serum or plasma total bilirubin measurement (mass/volume) " /> <statusCode code="completed" /> <effectiveTime value= "902316210295" /> <value unit="mg/dL" xsi:type="PQ" value="0.2" /> <referenceRange> <observationRange> <text>0.1-1.0< /text> </observationRange> </referenceRange> </ observation> </component> <component> <observation moodCode= "EVN" classCode="OBS"> <templateId root="06.08.840.1.145418.10..22.4.2 " /> <id nullFlavor="NA" /> <code codeSystem="local" code= "6768-6" displayName="Serum or plasma alkaline phosphatase measurement ( enzymatic activity/volume)" /> <statusCode code="completed" /> <effectiveTime value="017005200394" /> <value unit="U/L" xsi:type="PQ " value="68" /> <referenceRange> <observationRange> <text>40-136</text> </observationRange> </ referenceRange> </observation> </component> <component> <observation moodCode="EVN" classCode="OBS"> <templateId root= "216.840.1.633895.10.20.22.4.2" /> <id nullFlavor="NA" /> < code codeSystem="local" code="1919-11" displayName="Serum or plasma aspartate aminotransferase measurement (enzymatic activity/volume)" /> < statusCode code="completed" /> <effectiveTime value="213348448192" /> <value unit="U/L" xsi:type="PQ" value="17" /> <referenceRange > <observationRange> <text>5-34</text> </ observationRange> </referenceRange> </observation> </ component> <component> <observation moodCode="EVN" classCode="OBS"> <templateId root="2.16.840.1.261399.10.20.22.4.2" /> <id nullFlavor="NA" /> <code codeSystem="local" code="17426" displayName= "Serum or plasma alanine aminotransferase measurement (enzymatic activity/volume )" /> <statusCode code="completed" /> <effectiveTime value= "665327701118" /> <value unit="U/L" xsi:type="PQ" value="14" /> <referenceRange> <observationRange> <text>0-55</text > </observationRange> </referenceRange> </observation > </component> <component> <observation moodCode="EVN" classCode="OBS"> <templateId root="2.16.840.1.794032.10.20.22.4.2" /> <id nullFlavor="NA" /> <code codeSystem="local" code="2885-2" displayName="Serum or plasma protein measurement (mass/volume)" /> < statusCode code="completed" /> <effectiveTime value="825912226341" /> <value unit="g/dL" xsi:type="PQ" value="8.7" /> < interpretationCode codeSystem="local" code="" /> <referenceRange> <observationRange> <text>6.4-8.2</text> </ observationRange> </referenceRange> </observation> </ component> <component> <observation moodCode="EVN" classCode="OBS"> <templateId root="2.16.840.1.372869.10.20.22.4.2" /> <id nullFlavor="NA" /> <code codeSystem="local" code="17504-29" displayName= "Serum or plasma albumin measurement (mass/volume)" /> <statusCode code ="completed" /> <effectiveTime value="162656498410" /> <value unit="g/dL" xsi:type="PQ" value="5.1" /> <interpretationCode codeSystem ="local" code="" /> <referenceRange> <observationRange> <text>3.2-4.5</text> </observationRange> </ referenceRange> </observation> </component> </organizer> </entry > <entry> <organizer moodCode="EVN" classCode="BATTERY"> <templateId root="2.16.840.1.936668.10.20.22.4.1" /> <id nullFlavor="NA" /> <code codeSystem="local" code="1797-11" displayName="Serum or plasma amylase measurement (enzymatic activity/volume)" /> <statusCode code="completed" / > <component> <observation moodCode="EVN" classCode="OBS"> <templateId root="2.16.840.1.036709.10.20.22.4.2" /> <id nullFlavor="NA " /> <code codeSystem="local" code="1797-11" displayName="Serum or plasma amylase measurement (enzymatic activity/volume)" /> <statusCode code="completed" /> <effectiveTime value="062134388274" /> < value unit="U/L" xsi:type="PQ" value="48" /> <referenceRange> <observationRange> <text>25-125</text> </ observationRange> </referenceRange> </observation> </ component> </organizer> </entry> <entry> <organizer moodCode="EVN" classCode="BATTERY"> <templateId root="216.840.1.195368.10..22.4.1" /> <id nullFlavor="NA" /> <code codeSystem="local" code="3040-3" displayName="Lipase" /> <statusCode code="completed" /> <component> <observation moodCode="EVN" classCode="OBS"> <templateId root= "06.08.840.1.719917.10..4.2" /> <id nullFlavor="NA" /> < code codeSystem="local" code="3040-3" displayName="Lipase" /> < statusCode code="completed" /> <effectiveTime value="133395643726" /> <value unit="U/L" xsi:type="PQ" value="11" /> <referenceRange > <observationRange> <text>8-78</text> </ observationRange> </referenceRange> </observation> </ component> </organizer> </entry> <entry> <organizer moodCode="EVN" classCode="BATTERY"> <templateId root="06.08.840.1.183271.10..4.1" /> <id nullFlavor="NA" /> <code codeSystem="local" code="85950-7" displayName="Blood lactic acid measurement (moles/volume)" /> <statusCode code="completed" /> <component> <observation moodCode="EVN" classCode="OBS"> <templateId root="216.840.1.679100.10..22.4.2" /> <id nullFlavor="NA" /> <code codeSystem="local" code="03481-4 " displayName="Blood lactic acid measurement (moles/volume)" /> < statusCode code="completed" /> <effectiveTime value="094670633470" /> <value unit="mmol/L" xsi:type="PQ" value="0.64" /> < referenceRange> <observationRange> <text>0.50-2.00</text > </observationRange> </referenceRange> </observation > </component> </organizer> </entry> <entry> <organizer moodCode= "EVN" classCode="BATTERY"> <templateId root="216.840.1.096255.10.20.22.4.1 " /> <id nullFlavor="NA" /> <code codeSystem="local" code="600-7" displayName="Bacterial blood culture" /> <statusCode code="completed" /> <component> <observation moodCode="EVN" classCode="OBS"> < templateId root="216.840.1.388638.10.20.22.4.2" /> <id nullFlavor="NA " /> <code codeSystem="local" code="600-7" displayName="Bacterial blood culture" /> <statusCode code="completed" /> < effectiveTime value="286611659622" /> <value unit="" xsi:type="PQ" value="NG" /> <referenceRange> <observationRange> <text>NRG</text> </observationRange> </referenceRange> </observation> </component> </organizer> </entry> <entry> < organizer moodCode="EVN" classCode="BATTERY"> <templateId root= "216.840.1.290953.10.20.22.4.1" /> <id nullFlavor="NA" /> <code codeSystem="local" code="600-7" displayName="Bacterial blood culture" /> < statusCode code="completed" /> <component> <observation moodCode= "EVN" classCode="OBS"> <templateId root="2.16.840.1.699133.10..22.4.2 " /> <id nullFlavor="NA" /> <code codeSystem="local" code="600 -7" displayName="Bacterial blood culture" /> <statusCode code= "completed" /> <effectiveTime value="286535873866" /> <value unit="" xsi:type="PQ" value="NG" /> <referenceRange> < observationRange> <text>NRG</text> </observationRange> </referenceRange> </observation> </component> </ organizer> </entry> <entry> <organizer moodCode="EVN" classCode="BATTERY"> <templateId root="2.16.840.1.980924.10..22.4.1" /> <id nullFlavor= "NA" /> <code codeSystem="local" code="01058-6" displayName="Complete urinalysis with reflex to culture" /> <statusCode code="completed" /> <component> <observation moodCode="EVN" classCode="OBS"> < templateId root="2.16.840.1.302143.10..22.4.2" /> <id nullFlavor="NA " /> <code codeSystem="local" code="5778-6" displayName="Urine color determination" /> <statusCode code="completed" /> < effectiveTime value="195010114707" /> <value unit="" xsi:type="PQ" value="YELLOW" /> <referenceRange> <observationRange> <text>NRG</text> </observationRange> </ referenceRange> </observation> </component> <component> <observation moodCode="EVN" classCode="OBS"> <templateId root= "16.840.1.927594.10.20.22.4.2" /> <id nullFlavor="NA" /> < code codeSystem="local" code="17502-9" displayName="Urine clarity determination " /> <statusCode code="completed" /> <effectiveTime value= "" /> <value unit="" xsi:type="PQ" value="CLEAR" /> <referenceRange> <observationRange> <text>NRG</text> </observationRange> </referenceRange> </observation > </component> <component> <observation moodCode="EVN" classCode="OBS"> <templateId root="06.08.840.1.977972.10.22.4.2" /> <id nullFlavor="NA" /> <code codeSystem="local" code="5803-2" displayName="Urine pH measurement by test strip" /> <statusCode code= "completed" /> <effectiveTime value="" /> <value unit="" xsi:type="PQ" value="6" /> <referenceRange> < observationRange> <text>5-9</text> </observationRange> </referenceRange> </observation> </component> < component> <observation moodCode="EVN" classCode="OBS"> < templateId root="06.08.840.1.592486.10.2022.4.2" /> <id nullFlavor="NA " /> <code codeSystem="local" code="5811-5" displayName="Specific gravity of urine by test strip" /> <statusCode code="completed" /> <effectiveTime value="946942880042" /> <value unit="" xsi:type= "PQ" value="1.025" /> <interpretationCode codeSystem="local" code="*" / > <referenceRange> <observationRange> <text> 1.016-1.022</text> </observationRange> </referenceRange> </observation> </component> <component> <observation moodCode="EVN" classCode="OBS"> <templateId root= "06.08.840.1.146029.10.20.22.4.2" /> <id nullFlavor="NA" /> < code codeSystem="local" code="45390-7" displayName="Urine protein assay by test strip, semi-quantitative" /> <statusCode code="completed" /> < effectiveTime value="025598483013" /> <value unit="" xsi:type="PQ" value="2+" /> <interpretationCode codeSystem="local" code="*" /> <referenceRange> <observationRange> <text>NEGATIVE</ text> </observationRange> </referenceRange> </ observation> </component> <component> <observation moodCode= "EVN" classCode="OBS"> <templateId root="840.1.446958.10.20.22.4.2 " /> <id nullFlavor="NA" /> <code codeSystem="local" code= "48776-5" displayName="Urine glucose detection by automated test strip" /> <statusCode code="completed" /> <effectiveTime value="469627961370 " /> <value unit="" xsi:type="PQ" value="NEGATIVE" /> < referenceRange> <observationRange> <text>NEGATIVE</text > </observationRange> </referenceRange> </observation > </component> <component> <observation moodCode="EVN" classCode="OBS"> <templateId root="06.08.840.1.465749.10.20.22.4.2" /> <id nullFlavor="NA" /> <code codeSystem="local" code="54286-5 " displayName="Erythrocytes detection in urine sediment by light microscopy" /> <statusCode code="completed" /> <effectiveTime value= "008400528057" /> <value unit="" xsi:type="PQ" value="NEGATIVE" /> <referenceRange> <observationRange> <text>NEGATIVE </text> </observationRange> </referenceRange> </ observation> </component> <component> <observation moodCode= "EVN" classCode="OBS"> <templateId root="216.840.1.676675.10..4.2 " /> <id nullFlavor="NA" /> <code codeSystem="local" code= "12743-4" displayName="Urine ketones detection by automated test strip" /> <statusCode code="completed" /> <effectiveTime value="376893064086 " /> <value unit="" xsi:type="PQ" value="1+" /> < interpretationCode codeSystem="local" code="*" /> <referenceRange> <observationRange> <text>NEGATIVE</text> </ observationRange> </referenceRange> </observation> </ component> <component> <observation moodCode="EVN" classCode="OBS"> <templateId root="216.840.1.856767.10...4.2" /> <id nullFlavor="NA" /> <code codeSystem="local" code="5802-4" displayName= "Urine nitrite detection by test strip" /> <statusCode code="completed " /> <effectiveTime value="764965011350" /> <value unit="" xsi :type="PQ" value="NEGATIVE" /> <referenceRange> < observationRange> <text>NEGATIVE</text> </ observationRange> </referenceRange> </observation> </ component> <component> <observation moodCode="EVN" classCode="OBS"> <templateId root="16.840.1.417289.10..22.4.2" /> <id nullFlavor="NA" /> <code codeSystem="local" code="5770-3" displayName= "Urine total bilirubin detection by test strip" /> <statusCode code= "completed" /> <effectiveTime value="" /> <value unit="" xsi:type="PQ" value="NEGATIVE" /> <referenceRange> < observationRange> <text>NEGATIVE</text> </ observationRange> </referenceRange> </observation> </ component> <component> <observation moodCode="EVN" classCode="OBS"> <templateId root="2.16.840.1.803059.10...4.2" /> <id nullFlavor="NA" /> <code codeSystem="local" code="12730-7" displayName= "Urine urobilinogen measurement by automated test strip (mass/volume)" /> <statusCode code="completed" /> <effectiveTime value=" " /> <value unit="mg/dL" xsi:type="PQ" value="1" /> < referenceRange> <observationRange> <text>NORMAL</text> </observationRange> </referenceRange> </observation> </component> <component> <observation moodCode="EVN" classCode ="OBS"> <templateId root="2.16.840.1.198186.10..22.4.2" /> < id nullFlavor="NA" /> <code codeSystem="local" code="5799-2" displayName="Urine leukocyte esterase detection by dipstick" /> < statusCode code="completed" /> <effectiveTime value="103941905173" /> <value unit="" xsi:type="PQ" value="1+" /> < interpretationCode codeSystem="local" code="*" /> <referenceRange> <observationRange> <text>NEGATIVE</text> </ observationRange> </referenceRange> </observation> </ component> <component> <observation moodCode="EVN" classCode="OBS"> <templateId root="216.840.1.542816.10.22.4.2" /> <id nullFlavor="NA" /> <code codeSystem="local" code="19693-3" displayName= "Automated urine sediment erythrocyte count by microscopy (number/high power field)" /> <statusCode code="completed" /> <effectiveTime value="120173849136" /> <value unit="" xsi:type="PQ" value="NONE" /> <referenceRange> <observationRange> <text>NRG</ text> </observationRange> </referenceRange> </ observation> </component> <component> <observation moodCode= "EVN" classCode="OBS"> <templateId root="216.840.1.425567.10.4.2 " /> <id nullFlavor="NA" /> <code codeSystem="local" code= "5821-4" displayName="Automated urine sediment leukocyte count by microscopy ( number/high power field)" /> <statusCode code="completed" /> < effectiveTime value="393003750675" /> <value unit="" xsi:type="PQ" value="RARE" /> <referenceRange> <observationRange> <text>NRG</text> </observationRange> </referenceRange > </observation> </component> <component> <observation moodCode="EVN" classCode="OBS"> <templateId root= "216.840.1.611336.10.22.4.2" /> <id nullFlavor="NA" /> < code codeSystem="local" code="73691-1" displayName="Bacteria detection in urine sediment by light microscopy" /> <statusCode code="completed" /> <effectiveTime value="" /> <value unit="" xsi:type="PQ " value="NEGATIVE" /> <referenceRange> <observationRange> <text>NRG</text> </observationRange> </ referenceRange> </observation> </component> <component> <observation moodCode="EVN" classCode="OBS"> <templateId root= "16.840.1.096693.10.20.22.4.2" /> <id nullFlavor="NA" /> < code codeSystem="local" code="84982-5" displayName="Squamous epithelial cells detection in urine sediment by light microscopy" /> <statusCode code= "completed" /> <effectiveTime value="" /> <value unit="" xsi:type="PQ" value="5-10" /> <referenceRange> < observationRange> <text>NRG</text> </observationRange> </referenceRange> </observation> </component> < component> <observation moodCode="EVN" classCode="OBS"> < templateId root="06.08.840.1.488436.10.22.4.2" /> <id nullFlavor="NA " /> <code codeSystem="local" code="50892-4" displayName="Crystals detection in urine sediment by light microscopy" /> <statusCode code= "completed" /> <effectiveTime value="" /> <value unit="" xsi:type="PQ" value="NONE" /> <referenceRange> < observationRange> <text>NRG</text> </observationRange> </referenceRange> </observation> </component> < component> <observation moodCode="EVN" classCode="OBS"> < templateId root="16.840.1.577891.10.20.22.4.2" /> <id nullFlavor="NA " /> <code codeSystem="local" code="20560-6" displayName="Casts detection in urine sediment by light microscopy" /> <statusCode code= "completed" /> <effectiveTime value="217948718235" /> <value unit="" xsi:type="PQ" value="NONE" /> <referenceRange> < observationRange> <text>NRG</text> </observationRange> </referenceRange> </observation> </component> < component> <observation moodCode="EVN" classCode="OBS"> < templateId root="2.16.840.1.557319.10.20.22.4.2" /> <id nullFlavor="NA " /> <code codeSystem="local" code="8247-9" displayName="Mucus detection in urine sediment by light microscopy" /> <statusCode code= "completed" /> <effectiveTime value="664178632925" /> <value unit="" xsi:type="PQ" value="LARGE" /> <interpretationCode codeSystem= "local" code="*" /> <referenceRange> <observationRange> <text>NRG</text> </observationRange> </ referenceRange> </observation> </component> <component> <observation moodCode="EVN" classCode="OBS"> <templateId root= "2.16.840.1.052218.10.20.22.4.2" /> <id nullFlavor="NA" /> < code codeSystem="local" code="44172-3" displayName="Complete urinalysis with reflex to culture" /> <statusCode code="completed" /> < effectiveTime value="864117042836" /> <value unit="" xsi:type="PQ" value="NO" /> <referenceRange> <observationRange> <text>NRG</text> </observationRange> </referenceRange> </observation> </component> </organizer> </entry> <entry> < organizer moodCode="EVN" classCode="BATTERY"> <templateId root= "2.16.840.1.412584.10.20.22.4.1" /> <id nullFlavor="NA" /> <code codeSystem="local" code="69560-8" displayName="Complete blood count (CBC) with automated white blood cell (WBC) differential" /> <statusCode code= "completed" /> <component> <observation moodCode="EVN" classCode= "OBS"> <templateId root="2.16.840.1.925733.10.20.22.4.2" /> < id nullFlavor="NA" /> <code codeSystem="local" code="6690-2" displayName="Blood leukocytes automated count (number/volume)" /> < statusCode code="completed" /> <effectiveTime value="" /> <value unit="10*3/uL" xsi:type="PQ" value="6.7" /> < referenceRange> <observationRange> <text>4.3-11.0</text > </observationRange> </referenceRange> </observation > </component> <component> <observation moodCode="EVN" classCode="OBS"> <templateId root="2.16.840.1.061383.10.20.22.4.2" /> <id nullFlavor="NA" /> <code codeSystem="local" code="789-8" displayName="Blood erythrocytes automated count (number/volume)" /> < statusCode code="completed" /> <effectiveTime value="155448484870" /> <value unit="10*6/uL" xsi:type="PQ" value="4.23" /> < interpretationCode codeSystem="local" code="" /> <referenceRange> <observationRange> <text>4.35-5.85</text> </ observationRange> </referenceRange> </observation> </ component> <component> <observation moodCode="EVN" classCode="OBS"> <templateId root="2.16.840.1.536534.10.20.22.4.2" /> <id nullFlavor="NA" /> <code codeSystem="local" code="41425-4" displayName= "Venous blood hemoglobin measurement (mass/volume)" /> <statusCode code ="completed" /> <effectiveTime value="213604649281" /> <value unit="g/dL" xsi:type="PQ" value="13.8" /> <referenceRange> < observationRange> <text>11.5-16.0</text> </ observationRange> </referenceRange> </observation> </ component> <component> <observation moodCode="EVN" classCode="OBS"> <templateId root="2.16.840.1.828279.10..4.2" /> <id nullFlavor="NA" /> <code codeSystem="local" code="40060-9" displayName= "Blood hematocrit (volume fraction)" /> <statusCode code="completed" / > <effectiveTime value="705277811534" /> <value unit="%" xsi:type="PQ" value="41" /> <referenceRange> < observationRange> <text>35-52</text> </observationRange > </referenceRange> </observation> </component> < component> <observation moodCode="EVN" classCode="OBS"> < templateId root="2.16.840.1.082772.10..22.4.2" /> <id nullFlavor="NA " /> <code codeSystem="local" code="787-2" displayName="Automated erythrocyte mean corpuscular volume" /> <statusCode code="completed" / > <effectiveTime value="131066888618" /> <value unit="[foz_us] " xsi:type="PQ" value="97" /> <referenceRange> < observationRange> <text>80-99</text> </observationRange > </referenceRange> </observation> </component> < component> <observation moodCode="EVN" classCode="OBS"> < templateId root="2.16.840.1.910408.10.20.22.4.2" /> <id nullFlavor="NA " /> <code codeSystem="local" code="785-6" displayName="Automated erythrocyte mean corpuscular hemoglobin (mass per erythrocyte)" /> < statusCode code="completed" /> <effectiveTime value="037321980304" /> <value unit="pg" xsi:type="PQ" value="33" /> <referenceRange> <observationRange> <text>25-34</text> </ observationRange> </referenceRange> </observation> </ component> <component> <observation moodCode="EVN" classCode="OBS"> <templateId root="216.840.1.257573.10..22.4.2" /> <id nullFlavor="NA" /> <code codeSystem="local" code="786-4" displayName= "Automated erythrocyte mean corpuscular hemoglobin concentration measurement ( mass/volume)" /> <statusCode code="completed" /> < effectiveTime value="577167451411" /> <value unit="g/dL" xsi:type="PQ" value="34" /> <referenceRange> <observationRange> <text>32-36</text> </observationRange> </referenceRange > </observation> </component> <component> <observation moodCode="EVN" classCode="OBS"> <templateId root= "2.16.840.1.682423.10.20.22.4.2" /> <id nullFlavor="NA" /> < code codeSystem="local" code="788-0" displayName="Automated erythrocyte distribution width ratio" /> <statusCode code="completed" /> < effectiveTime value="828111302458" /> <value unit="%" xsi:type="PQ " value="12.7" /> <referenceRange> <observationRange> <text>10.0-14.5</text> </observationRange> </ referenceRange> </observation> </component> <component> <observation moodCode="EVN" classCode="OBS"> <templateId root= "2.16.840.1.205224.10..22.4.2" /> <id nullFlavor="NA" /> < code codeSystem="local" code="777-3" displayName="Automated blood platelet count (count/volume)" /> <statusCode code="completed" /> < effectiveTime value="182359025675" /> <value unit="10*3/uL" xsi:type= "PQ" value="312" /> <referenceRange> <observationRange> <text>130-400</text> </observationRange> </ referenceRange> </observation> </component> <component> <observation moodCode="EVN" classCode="OBS"> <templateId root= "2.16.840.1.351350.10..22.4.2" /> <id nullFlavor="NA" /> < code codeSystem="local" code="84012-3" displayName="Automated blood platelet mean volume measurement" /> <statusCode code="completed" /> < effectiveTime value="912138805167" /> <value unit="[foz_us]" xsi:type= "PQ" value="8.3" /> <referenceRange> <observationRange> <text>7.4-10.4</text> </observationRange> </ referenceRange> </observation> </component> <component> <observation moodCode="EVN" classCode="OBS"> <templateId root= "2.16.840.1.386137.10.20.22.4.2" /> <id nullFlavor="NA" /> < code codeSystem="local" code="770-8" displayName="Automated blood neutrophils/ 100 leukocytes" /> <statusCode code="completed" /> < effectiveTime value="099913672577" /> <value unit="%" xsi:type="PQ " value="54" /> <referenceRange> <observationRange> <text>42-75</text> </observationRange> </ referenceRange> </observation> </component> <component> <observation moodCode="EVN" classCode="OBS"> <templateId root= "2.16.840.1.964261.10..22.4.2" /> <id nullFlavor="NA" /> < code codeSystem="local" code="736-9" displayName="Automated blood lymphocytes/ 100 leukocytes" /> <statusCode code="completed" /> < effectiveTime value="094370113854" /> <value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
[2018-05-05 19:55] VITALS: BP 117/78
--- NOTE | 2018-05-05 20:00 | NUR ---
KRISTINA TABARES admitted to room 417-1, with an admitting diagnosis of RLQ ABD PAIN AND IUP, on 05/05/18 from ED via , accompanied by ED STAFF. KRISTINA TABARES introduced to surroundings, call light, bed controls, phone, TV, temperature control, lights, meal times, smoking policy, visitor policy, side rail policy, bathrooms and showers. Patient Rights given to patient in the handbook. KRISTINA TABARES verbalizes understanding that [facility] is not responsible for the loss or damage to any personal effects or valuables that are kept in the patients posession during their hospitalization. KRISTINA TABARES verbalizes understanding of Interdisciplinary Patient Education. Patient and/or family were informed about the Rapid Response Team and its purpose.
[2018-05-05] MEDS ORDERED: PROMETHAZINE INJ 25 MG/ML (PHENERGAN) AMP IV PRN (20:15)
[2018-05-05] MEDS ORDERED: ONDANSETRON 4 MG/2 ML (SDV) Z0FRAN IV PRN (20:15)
[2018-05-05] MEDS: NS IV 1000 ML 1,000 ML IV SCH (21:01)
[2018-05-05] MEDS: fentaNYL INJECTION 100 MCG/2 ML AMP INJ PRN ×2 (21:02→23:32)
[2018-05-05] MEDS ORDERED: NICOTINE 21 MG (NICODERM) PATCH TD SCH (23:00)
[2018-05-06 00:04] VITALS: BP 100/70
[2018-05-06] MEDS: fentaNYL INJECTION 100 MCG/2 ML AMP INJ PRN ×9 (03:00→23:17)
[2018-05-06 04:10] VITALS: BP 126/70
[2018-05-06 04:35] LABS: BASOPHILS % (AUTO) 0 % (0-10); EOSINOPHILS % (AUTO) 1 % (0-10); HEMATOCRIT 36 % (35-52); LYMPHOCYTES # (AUTO) 2.7 X 10^3 (1.0-4.0); LYMPHOCYTES % (AUTO) 42 % (12-44); MEAN CORPUSCULAR HEMOGLOBIN 33 PG (25-34); MEAN CORPUSCULAR HGB CONC 33 G/DL (32-36); MEAN CORPUSCULAR VOLUME 98 FL (80-99); MEAN PLATELET VOLUME 8.5 FL (7.4-10.4); MONOCYTES # (AUTO) 0.6 X 10^3 (0.0-1.0); MONOCYTES % (AUTO) 9 % (0-12); NEUTROPHILS # (AUTO) 3.1 X 10^3 (1.8-7.8); NEUTROPHILS % (AUTO) 49 % (42-75); PLATELET COUNT 271 10^3/uL (130-400); RED BLOOD COUNT 3.68 10^6/uL (4.35-5.85); RED CELL DISTRIBUTION WIDTH 12.7 % (10.0-14.5); WHITE BLOOD COUNT 6.5 10^3/uL (4.3-11.0)
[2018-05-06 04:50] LABS: ALANINE AMINOTRANSFERASE 10 U/L (0-55); ALBUMIN 3.8 GM/DL (3.2-4.5); ALKALINE PHOSPHATASE 52 U/L (40-136); BILIRUBIN,TOTAL 0.4 MG/DL (0.1-1.0); BUN/CREATININE RATIO 8; CALCIUM 8.3 MG/DL (8.5-10.1); CARBON DIOXIDE 18 MMOL/L (21-32); CHLORIDE 110 MMOL/L (98-107); CREATININE SERUM 0.65 MG/DL (0.60-1.30); GFR ESTIMATED > 60; GLUCOSE 73 MG/DL (70-105); POTASSIUM 3.4 MMOL/L (3.6-5.0); SODIUM 139 MMOL/L (135-145); TOTAL PROTEIN 6.5 GM/DL (6.4-8.2)
[2018-05-06] MEDS: NS IV 1000 ML 1,000 ML IV SCH ×3 (04:50→21:23)
--- NOTE | 2018-05-06 07:51 | NUR ---
DR. THOMASON CALLED TO GET APPROVAL FOR NICOTINE PATCH THAT WAS PLACED LAST PM. OK FOR PATCH TO REMAIN PT OTHERWISE INSISTING ON GOING OUTSIDE TO SMOKE PER [employer] MANAGER RN.
[2018-05-06 08:00] VITALS: BP 105/68
--- NOTE | 2018-05-06 08:00 | NUR ---
FENTANYL 50 IV FOR PAIN 11/30.
[2018-05-06] MEDS ORDERED: NICOTINE 21 MG (NICODERM) PATCH TD SCH ×2 (09:00→22:00)
--- NOTE | 2018-05-06 10:57 | NUR ---
FENTANYL 50 IV FOR PAIN 11/30.
[2018-05-06 12:00] VITALS: BP 115/71
[2018-05-06] MEDS ORDERED: DULO60CA6 PO (12:26)
[2018-05-06] MEDS ORDERED: NORT50CA PO (12:26)
[2018-05-06] MEDS ORDERED: PREG150C PO (12:26)
[2018-05-06] MEDS ORDERED: METO-333 PO ×2 (12:26)
--- NOTE | 2018-05-06 12:27 | NUR ---
PATIENT LISTED TO ME HER MEDICATIONS, I CALLED HAILE NORWOOD TO VERIFY STRENGTHS AND LAST FILL DATES. HAILE FILLED: 04-13-18 LYRICA 150MG QID 04-08-18 CYMBALTA 60MG 2 HS 04-08-18 NORTRIPTYLINE 50MG 2 HS 04-08-18 METOPROLOL TARTRATE 25MG 2 AM 1 HS #90
--- NOTE | 2018-05-06 13:02 | NUR ---
FENTANYL 50IV FOR PAIN.
[2018-05-06 16:00] VITALS: BP 109/67
--- NOTE | 2018-05-06 16:20 | NUR ---
FENTANYL 50 IV FOR PAIN.
--- NOTE | 2018-05-06 18:30 | NUR ---
FENTANYL 50 IV FOR PAIN.
[2018-05-06 20:00] VITALS: BP 120/75
[2018-05-06] MEDS ORDERED: NICOTINE PATCH REMOVAL TP SCH (22:00)
--- NOTE | 2018-05-06 22:18 | History & Physical-Surgical ---
History of Present Illness History of Present Illness Reason for visit/HPI HPI per ED: This 23-year-old young lady presents to the emergency room with complaints of right flank pain since yesterday. Pain is now moving down into the right lower quadrant. It hurts to walk, move, lay flat, and breathe. She reports having a fever yesterday up to 103.1. She's had some nausea and vomiting as well. Last menstrual period was April 25. She denies . She is afebrile at this time but is tachycardic. I saw pt at 1246 and then again sometime after 1630 today. She was rating her pain as 8 out of 10 both times and only helped by pain medications; she had some nausea but denied vomiting. She states she has never had pain like this before. She described it as a sharp shooting pain. She has been walking around and has been wanting to go out and smoke. She is 6 weeks , did not know she was . Date of Admission May 05, 2018 at 20:00 Time Seen by a Provider: 12:46 I consulted on this patient on 05/06/18 21:54 Attending Physician Baudilio Rowan DO Admitting Physician No,Local Physician Consult Allergies and Home Medications Allergies Coded Allergies: tramadol (Verified Allergy, Unknown, 02/13/18) Home Medications Duloxetine HCl 60 Mg Capsule.dr, 120 MG PO HS, (Reported) TAKES 2 (60MG) CAPSULES Metoprolol Tartrate 25 Mg Tablet, 50 MG PO DAILY, (Reported) TAKES 2 (25MG) TABLETS Metoprolol Tartrate 25 Mg Tablet, 25 MG PO HS, (Reported) Nortriptyline HCl 50 Mg Capsule, 100 MG PO HS, (Reported) TAKES 2 (50MG) CAPSULES Pregabalin 150 Mg Capsule, 150 MG PO QID, (Reported) Patient Home Medication List Home Medication List Reviewed: Yes Past Vdnoacy-Lpdqza-Lzobsa Hx Patient Social History Alcohol Use: Denies Use Recreational Drug Use: No Smoking Status: Former Smoker Former Smoker, Quit: Apr 23, 2017 Recent Foreign Travel: No Contact w/Someone Who Travel: No Recent Infectious Disease Expo: No Recent Hopitalizations: No Physical Abuse Screen: No Sexual Abuse: No Immunizations Up To Date Tetanus Booster (TDap): Less than 5yrs PED Vaccines UTD: Yes Date of Influenza Vaccine: Mar 07, 2018 Seasonal Allergies Seasonal Allergies: No Surgeries History of Surgeries: No Respiratory History of Respiratory Disorde: No Cardiovascular History of Cardiac Disorders: Yes (TACHY) Cardiac Disorders: Irregular Heartbeat Neurological History of Neurological Disord: No Reproductive System : Yes Hx Reproductive Disorders: No Sexually Transmitted Disease: No Female Reproductive Disorders: Denies Genitourinary History of Genitourinary Disor: No Gastrointestinal History of Gastrointestinal Di: No Musculoskeletal History of Musculoskeletal Dis: Yes ("CHRONIC PAIN FROM FIBROMYALGIA" ) Musculoskeletal Disorders: Fibromyalgia Endocrine History of Endocrine Disorders: Yes (Sjogren's disease per patient ) HEENT History of HEENT Disorders: No Cancer History of Cancer: No Psychosocial History of Psychiatric Problem: Yes Behavioral Health Disorders: Anxiety, Depression Integumentary History of Skin or Integumenta: No Blood Transfusions History of Blood Disorders: No Family Medical History Significant Family History: Diabetes (denies her mother has DM) Review of Systems Constitutional: chills, diaphoresis, malaise EENTM: No blurred vision, No double vision, No mouth pain, No mouth swelling, No epistaxis Respiratory: No cough, No dyspnea on exertion Cardiovascular: No chest pain, No palpitations Gastrointestinal: RLQ; No jaundice; nausea, vomiting Genitourinary: No dysuria, No frequency, No hematuria Musculoskeletal: joint pain, joint swelling, muscle pain, muscle stiffness Skin: No change in color, No change in hair/nails Psychiatric/Neurological: Anxiety, Depressed; Denies Seizure, Denies Tremors pt denies any abnormal bruising or bleeding Physical Exam Vital Signs Vital Signs - First Documented 05/05/18 16:22 Temp 97.6 Pulse 121 Resp 22 B/P (MAP) 126/97 (107) Pulse Ox 97 O2 Delivery Room Air Capillary Refill : Less Than 3 SecondsLess Than 3 Seconds Height, Weight, BMI Height: 5'9.00" Weight: 145lbs. 0.0oz. [id number]; 21.4 BMI Method:Stated General Appearance: WD/WN, Mild Distress Eyes: Bilateral Eye PERRL, Bilateral Eye EOMI HEENT: Pharynx Normal; No Pale Conjunctivae (L), No Pale Conjunctivae (R) Neck: Full Range of Motion, Normal Inspection, Non Tender, Supple Respiratory: Chest Non Tender, Lungs Clear, Normal Breath Sounds, No Accessory Muscle Use, No Respiratory Distress Cardiovascular: Regular Rate, Rhythm, No Edema, No Murmur Gastrointestinal: Normal Bowel Sounds, No Organomegaly, No Pulsatile Mass, Soft ; No Distended, No Guarding; Tenderness (RLQ and suprapubic) Back: No CVA Tenderness, No Vertebral Tenderness Extremity: Normal Capillary Refill, Normal Inspection, Normal Range of Motion, Non Tender, No Calf Tenderness Neurologic/Psychiatric: Alert, Oriented x3, No Motor/Sensory Deficits, Normal Mood/Affect, pump assembler II-XII Norm as Tested Skin: Normal Color, Warm/Dry Lymphatic: No Adenopathy (neck, axilla or groin) Data Review Labs Laboratory Tests 05/06/18 04:20: White Blood Count 6.5, Red Blood Count 3.68L, Hemoglobin 12.0, Hematocrit 36, Mean Corpuscular Volume 98, Mean Corpuscular Hemoglobin 33, Mean Corpuscular Hemoglobin Concent 33, Red Cell Distribution Width 12.7, Platelet Count 271, Mean Platelet Volume 8.5, Neutrophils (%) (Auto) 49, Lymphocytes (%) (Auto) 42, Monocytes (%) (Auto) 9, Eosinophils (%) (Auto) 1, Basophils (%) (Auto) 0, Neutrophils # (Auto) 3.1, Lymphocytes # (Auto) 2.7, Monocytes # (Auto) 0.6, Eosinophils # (Auto) 0.0, Basophils # (Auto) 0.0, Sodium Level 139, Potassium Level 3.4L, Chloride Level 110H, Carbon Dioxide Level 18L, Anion Gap 11, Blood Urea Nitrogen 5L, Creatinine 0.65, Estimat Glomerular Filtration Rate > 60, BUN/ Creatinine Ratio 8, Glucose Level 73, Calcium Level 8.3L, Corrected Calcium 8.5 , Total Bilirubin 0.4, Aspartate Amino Transf (AST/SGOT) 12, Alanine Aminotransferase (ALT/SGPT) 10, Alkaline Phosphatase 52, Total Protein 6.5, Albumin 3.8 Assessment/Plan Assessment/Plan Admission Diagonsis RLQ pain R/O appendicitis Gravid Female 6 weeks Admission Status: Inpatient Order (span 2 midnights) Reason for Inpatient Admission: pt has uncontrolled pain, tonight will technically make 2 midnights Assessment/Plan RLQ pain R/O appendicitis Gravid Female 6 weeks Nausea and Vomiting Pt has RLQ pain with N/V and fever; trying to rule out appendicitis. Her WBC has never been elevated above normal, US was non-diagnostic for anabel. She has continued to need pain medication every 2 hours. I would have like to do an MRI (can't do CT since she is ), but we unfortunately do not have a tech. Will check pt's labs in the am and re- examine her abdomen. If she does not have an elevated WBC may treat her with pain meds, oral ABX and send her home. If pain persists in a few days then may try MRI. Pt was ok with this. She is NPO, getting IV fluids right now. Clinical Quality Measures DVT/VTE Risk/Contraindication: Risk Factor Score Per Nursin RFS Level Per Nursing on Admit: 2=Moderate BAUDILIO ROWAN DO May 06, 2018 22:18
[2018-05-07] VITALS: BP 108/69
[2018-05-07] MEDS: fentaNYL INJECTION 100 MCG/2 ML AMP INJ PRN ×6 (01:50→13:27)
[2018-05-07 04:00] VITALS: BP 106/56
[2018-05-07 04:49] LABS: BASOPHILS % (AUTO) 0 % (0-10); EOSINOPHILS % (AUTO) 1 % (0-10); HEMATOCRIT 39 % (35-52); HEMOGLOBIN 13.2 G/DL (11.5-16.0); LYMPHOCYTES # (AUTO) 1.9 X 10^3 (1.0-4.0); LYMPHOCYTES % (AUTO) 32 % (12-44); MEAN CORPUSCULAR HEMOGLOBIN 32 PG (25-34); MEAN CORPUSCULAR HGB CONC 34 G/DL (32-36); MEAN CORPUSCULAR VOLUME 96 FL (80-99); MEAN PLATELET VOLUME 8.5 FL (7.4-10.4); MONOCYTES # (AUTO) 0.4 X 10^3 (0.0-1.0); MONOCYTES % (AUTO) 7 % (0-12); NEUTROPHILS # (AUTO) 3.5 X 10^3 (1.8-7.8); NEUTROPHILS % (AUTO) 61 % (42-75); PLATELET COUNT 266 10^3/uL (130-400); RED BLOOD COUNT 4.09 10^6/uL (4.35-5.85); RED CELL DISTRIBUTION WIDTH 12.4 % (10.0-14.5); WHITE BLOOD COUNT 5.7 10^3/uL (4.3-11.0)
[2018-05-07] MEDS: NS IV 1000 ML 1,000 ML IV SCH ×2 (05:25→13:26)
[2018-05-07 08:00] VITALS: BP 117/70
[2018-05-07 12:00] VITALS: BP 122/75
[2018-05-07] MEDS ORDERED: ACHD5005 PO (15:03)
--- NOTE | 2018-05-07 15:05 | Discharge Inst-Surgical ---
Discharge Inst-Surgical Depart Medication/Instructions New, Converted or Re-Newed RX: RX Given to Pt/Family Patient Instructions Follow up Appt: Make appointment for 1 week. Instructions: No strenuous activity. May shower or tub bath. Symptoms to Report: Appetite Changes, Extremity Discoloration, Numbness/Tingling, Swelling Increased , Bleeding Excessive, Eyesight Changes, Pain Increased, Urine Color Change, Constipation(Persistent), Fever over 101 degree F, Pain/Pressure in chest, Urinating Difficulty, Cough Up/Vomit Blood, Heart Beat Irreg/Pounding, Pain/ Pressure in jaw, Vaginal Bleeding Increase, Cramps in feet or legs, Lightheadedness, Pain/Pressure in shoulder, Diarrhea(Persistent), Memory Changes Suddenly, Questions/Concerns, Weight gain consecutive days, Dizziness/ Fainting, Nausea/Vomiting, Shortness of Breath, Weight gain over 2 pounds If questions or concerns contact your physician Or seek help at emergency department. Activity Activity as Tolerated: Yes Driving Instructions: No Driving/Refer to Dr. Patterson Discharge Diet: No Restrictions Diet After 24 Hours: Clear Liquid if Nauseous Symptoms to Report to Physicia: Fever Over 101 Degrees F JOZEF THOMASON DO May 07, 2018 15:05
--- NOTE | 2018-05-07 15:11 | Progress Note ---
Subjective Time Seen by a Provider: 12:52 Subjective/Events-last exam Pt seen and examined. States pain is a little better, but still there. She is hungry and thinks she can go home. Review of Systems General: No Chills, No Night Sweats Pulmonary: No Dyspnea, No Cough Cardiovascular: No: Chest Pain, Palpitations Gastrointestinal: Nausea, Abdominal Pain Objective Exam Vital Signs Date Time Temp Pulse Resp B/P (MAP) Pulse Ox O2 Delivery O2 Flow Rate FiO2 05/07/18 13:27 98.6 05/07/18 12:00 98.6 107 18 122/75 (91) 95 Room Air 05/07/18 10:36 98.5 05/07/18 08:59 98.5 05/07/18 08:00 96.8 112 20 117/70 (86) 98 Room Air 05/07/18 08:00 Room Air 05/07/18 04:00 98.5 108 20 106/56 (73) 99 Room Air 05/07/18 00:00 98.2 103 20 108/69 (82) 97 Room Air 05/06/18 20:00 96.6 101 16 120/75 (90) 99 Room Air 05/06/18 20:00 Room Air 05/06/18 16:00 97.1 108 16 109/67 (81) 98 Room Air I & O 05/07/18 07:00 Intake Total 1000 ml Balance 1000 ml Capillary Refill : Less Than 3 SecondsLess Than 3 Seconds General Appearance: WD/WN, Mild Distress HEENT: Pharynx Normal; No Pale Conjunctivae (L), No Pale Conjunctivae (R) Neck: Full Range of Motion, Normal Inspection, Non Tender, Supple Respiratory: Chest Non Tender, Lungs Clear, Normal Breath Sounds, No Accessory Muscle Use, No Respiratory Distress Cardiovascular: Regular Rate, Rhythm, No Edema, No Murmur Gastrointestinal: normal bowel sounds, soft, tenderness (right lower quadrant tenderness with positive Rovsing sign.) Extremity: Normal Capillary Refill, Normal Inspection, Normal Range of Motion, Non Tender, No Calf Tenderness Neurologic/Psychiatric: Alert, Oriented x3, No Motor/Sensory Deficits, Normal Mood/Affect, potato inspector II-XII Norm as Tested Skin: Normal Color, Warm/Dry Lymphatic: No Adenopathy (neck, axilla or groin) Results Lab Laboratory Tests 05/07/18 04:25: White Blood Count 5.7, Red Blood Count 4.09L, Hemoglobin 13.2, Hematocrit 39, Mean Corpuscular Volume 96, Mean Corpuscular Hemoglobin 32, Mean Corpuscular Hemoglobin Concent 34, Red Cell Distribution Width 12.4, Platelet Count 266, Mean Platelet Volume 8.5, Neutrophils (%) (Auto) 61, Lymphocytes (%) (Auto) 32, Monocytes (%) (Auto) 7, Eosinophils (%) (Auto) 1, Basophils (%) (Auto) 0, Neutrophils # (Auto) 3.5, Lymphocytes # (Auto) 1.9, Monocytes # (Auto) 0.4, Eosinophils # (Auto) 0.0, Basophils # (Auto) 0.0 Assessment/Plan Assessment/Plan Assessment/Plan RLQ pain improved slightly; I doubt this is appendicitis Gravid Female 6 weeks Nausea and Vomiting Pt still has RLQ pain with some mild nausea and has not had a fever since she came into hospital. Repeat WBC again normal at 5.7. She has not been on ABX so I think she can start clear diet and be sent home. Pt should follow up with an Ob /CISCO CONSULTANT. She can see me in the office if she has questions or anything changes. Clinical Quality Measures DVT/VTE Risk/Contraindication: Risk Factor Score Per Nursin RFS Level Per Nursing on Admit: 2=Moderate JOZEF THOMASON DO May 07, 2018 15:11
[2018-05-07 16:10] VITALS: BP 122/75
== END 2018-05-07 15:01 | disposition home or self-care (01) ==
LOC: EDUNIT# 16:00 → ER 16:01 → 4TH 18:57 → UNDOADMOB 18:57 → 4TH 20:00
PROVIDERS: ADMIT Surgery; ATTEND Surgery
DX: O99.89 Other specified diseases and conditions complicating pregnancy, childbirth and the puerperium (principal); R10.31 Right lower quadrant pain; R11.2 Nausea with vomiting, unspecified; R00.0 Tachycardia, unspecified; Z87.891 Personal history of nicotine dependence; M79.7 Fibromyalgia; Z3A.01 Less than 8 weeks gestation of pregnancy
CPT/HCPCS: 36415; 76705; 76775; 76817; 80053; 81000; 84702; 84703; 85025; 96361; 96374; 96375; 96376; G0378

== ENCOUNTER 2018-07-06 20:08 | Emergency (ER) | payer BC, MEDICAID ==
[~2018-07-06] VITALS: Ht 175.3 cm; Wt 67.1 kg
[~2018-07-06 20:08] MED LIST changes: +ACHD5005 PO; +DULO60CA6 PO; +METO-333 PO; +NORT50CA PO; +PREG150C PO
[2018-07-06] MEDS ORDERED: ACETAMINOPHEN 500 MG TAB (TYLENOL) PO ONE (21:15)
[2018-07-06 21:18] LABS: BASOPHILS % (AUTO) 0 % (0-10); EOSINOPHILS % (AUTO) 0 % (0-10); HEMATOCRIT 39 % (35-52); HEMOGLOBIN 13.4 G/DL (11.5-16.0); LYMPHOCYTES # (AUTO) 2.1 X 10^3 (1.0-4.0); LYMPHOCYTES % (AUTO) 22 % (12-44); MEAN CORPUSCULAR HEMOGLOBIN 33 PG (25-34); MEAN CORPUSCULAR HGB CONC 34 G/DL (32-36); MEAN CORPUSCULAR VOLUME 96 FL (80-99); MEAN PLATELET VOLUME 8.6 FL (7.4-10.4); MONOCYTES # (AUTO) 0.6 X 10^3 (0.0-1.0); MONOCYTES % (AUTO) 7 % (0-12); NEUTROPHILS # (AUTO) 6.5 X 10^3 (1.8-7.8); NEUTROPHILS % (AUTO) 71 % (42-75); PLATELET COUNT 267 10^3/uL (130-400); RED CELL DISTRIBUTION WIDTH 13.8 % (10.0-14.5); WHITE BLOOD COUNT 9.2 10^3/uL (4.3-11.0)
[2018-07-06 21:19] LABS: BILIRUBIN,URINE NEGATIVE (NEGATIVE); COLOR,URINE YELLOW; GLUCOSE, URINE (UA) NEGATIVE (NEGATIVE); KETONES,URINE NEGATIVE (NEGATIVE); LEUKOCYTE ESTERASE ,URINE NEGATIVE (NEGATIVE); NITRITE,URINE NEGATIVE (NEGATIVE); PH,URINE 7 (5-9); PROTEIN,URINE NEGATIVE (NEGATIVE); UROBILINOGEN,URINE NORMAL (NORMAL)
--- NOTE | 2018-07-06 21:20 | ED Abdominal Pain ---
General Chief Complaint: -Female Stated Complaint: PAIN IN ABD, BLOODY DISCHARGE 15 WEEKS PREG Source of Information: Patient Exam Limitations: No Limitations History of Present Illness Date Seen by Provider: Jul 06, 2018 Time Seen by Provider: 21:00 Initial Comments 23-year-old female who presented to the emergency room with complaints of right lower quadrant abdominal cramping and vaginal bleeding that started around 11: 30 today. She reports that she is just had mild spotting on the time the pain started. She denies taking anything for pain. She did have heart tones of 154 on arrival to the emergency room. Denies nausea and vomiting. Allergies and Home Medications Allergies Coded Allergies: tramadol (Verified Allergy, Unknown, 02/13/18) Home Medications Duloxetine HCl 60 Mg Capsule.dr, 120 MG PO HS, (Reported) TAKES 2 (60MG) CAPSULES Hydrocodone Bit/Acetaminophen 1 Tab Tab, 1 TAB PO Q6H PRN for PAIN-MODERATE Prescribed by: JOZEF THOMASON on 05/07/18 1503 Metoprolol Tartrate 25 Mg Tablet, 50 MG PO DAILY, (Reported) TAKES 2 (25MG) TABLETS Metoprolol Tartrate 25 Mg Tablet, 25 MG PO HS, (Reported) Nortriptyline HCl 50 Mg Capsule, 100 MG PO HS, (Reported) TAKES 2 (50MG) CAPSULES Pregabalin 150 Mg Capsule, 150 MG PO QID, (Reported) Patient Home Medication List Home Medication List Reviewed: Yes Review of Systems Review of Systems Constitutional: see HPI; No chills, No fever Genitourinary: See HPI, Other (vaginal spotting and cramping.) All Other Systems Reviewed Negative Unless Noted: Yes Past Ieofebj-Zqkkep-Tqtyni Hx Past Med/Social Hx: Reviewed Nursing Past Med/Soc Hx Patient Social History Former Smoker, Quit: Apr 23, 2017 Recent Foreign Travel: No Contact w/Someone Who Travel: No Recent Hopitalizations: No Immunizations Up To Date Tetanus Booster (TDap): Less than 5yrs PED Vaccines UTD: Yes Date of Influenza Vaccine: Mar 07, 2018 Seasonal Allergies Seasonal Allergies: No Past Medical History Surgeries: No Respiratory: No Cardiac: Yes (TACHY) Irregular Heartbeat Neurological: No Reproductive Disorders: No Female Reproductive Disorders: Denies Sexually Transmitted Disease: No Genitourinary: No Gastrointestinal: No Musculoskeletal: Yes ("CHRONIC PAIN FROM FIBROMYALGIA" ) Fibromyalgia Endocrine: Yes (Sjogren's disease per patient ) HEENT: No Cancer: No Psychosocial: Yes Anxiety, Depression Integumentary: No Blood Disorders: No Family Medical History Reviewed Nursing Family Hx Diabetes Physical Exam Vital Signs Vital Signs - First Documented 07/06/18 20:57 Temp 98.6 Pulse 120 Resp 22 B/P (MAP) 127/92 (104) Pulse Ox 97 O2 Delivery Room Air Capillary Refill : Height/Weight/BMI Height: 5'9.00" Weight: 145lbs. 0.0oz. 65.630383pa; 21.4 BMI Method:Stated General Appearance: WD/WN, no apparent distress Respiratory: chest non-tender, lungs clear, normal breath sounds, no respiratory distress, no accessory muscle use Cardiovascular: normal peripheral pulses, regular rate, rhythm, no edema, no gallop, no JVD, no murmur Gastrointestinal: normal bowel sounds, non tender, soft, no organomegaly, no pulsatile mass Extremities: normal capillary refill Neurologic/Psychiatric: alert, normal mood/affect, oriented x 3 Skin: normal color, warm/dry Progress/Results/Core Measures Results/Orders Lab Results Laboratory Tests Test 07/06/18 21:05 07/06/18 21:10 Range/Units White Blood Count 9.2 4.3-11.0 10^3/uL Red Blood Count 4.04 L 4.35-5.85 10^6/uL Hemoglobin 13.4 11.5-16.0 G/DL Hematocrit 39 35-52 % Mean Corpuscular Volume 96 80-99 FL Mean Corpuscular Hemoglobin 33 25-34 PG Mean Corpuscular Hemoglobin Concent 34 32-36 G/DL Red Cell Distribution Width 13.8 10.0-14.5 % Platelet Count 267 130-400 10^3/uL Mean Platelet Volume 8.6 7.4-10.4 FL Neutrophils (%) (Auto) 71 42-75 % Lymphocytes (%) (Auto) 22 12-44 % Monocytes (%) (Auto) 7 0-12 % Eosinophils (%) (Auto) 0 0-10 % Basophils (%) (Auto) 0 0-10 % Neutrophils # (Auto) 6.5 1.8-7.8 X 10^3 Lymphocytes # (Auto) 2.1 1.0-4.0 X 10^3 Monocytes # (Auto) 0.6 0.0-1.0 X 10^3 Eosinophils # (Auto) 0.0 0.0-0.3 10^3/uL Basophils # (Auto) 0.0 0.0-0.1 10^3/uL Sodium Level 137 135-145 MMOL/L Potassium Level 3.6 3.6-5.0 MMOL/L Chloride Level 106 98-107 MMOL/L Carbon Dioxide Level 19 L 21-32 MMOL/L Anion Gap 12 5-14 MMOL/L Blood Urea Nitrogen 8 7-18 MG/DL Creatinine 0.63 0.60-1.30 MG/DL Estimat Glomerular Filtration Rate > 60 BUN/Creatinine Ratio 13 Glucose Level 125 H 70-105 MG/DL Calcium Level 9.7 8.5-10.1 MG/DL Corrected Calcium 9.4 8.5-10.1 MG/DL Total Bilirubin 0.2 0.1-1.0 MG/DL Aspartate Amino Transf (AST/SGOT) 15 5-34 U/L Alanine Aminotransferase (ALT/SGPT) 15 0-55 U/L Alkaline Phosphatase 49 40-136 U/L Total Protein 7.6 6.4-8.2 GM/DL Albumin 4.4 3.2-4.5 GM/DL Urine Color YELLOW Urine Clarity SL CLOUDY Urine pH 7 5-9 Urine Specific [place] 1.010 L 1.016-1.022 Urine Protein NEGATIVE NEGATIVE Urine Glucose (UA) NEGATIVE NEGATIVE Urine Ketones NEGATIVE NEGATIVE Urine Nitrite NEGATIVE NEGATIVE Urine Bilirubin NEGATIVE NEGATIVE Urine Urobilinogen NORMAL NORMAL MG/DL Urine Leukocyte Esterase NEGATIVE NEGATIVE Urine RBC (Auto) NEGATIVE NEGATIVE Urine RBC NONE /HPF Urine WBC RARE /HPF Urine Squamous Epithelial Cells 2-5 /HPF Urine Crystals PRESENT H /LPF Urine Amorphous Sediment MOD FLAVIA PHOSPHATE H /LPF Urine Bacteria FEW H /HPF Urine Casts NONE /LPF Urine Mucus SMALL H /LPF Urine Culture Indicated YES Micro Results Microbiology 07/06/18 Urine Culture - Final, Complete 3 or more isolates My Orders Orders - VICTOR M CASTELLANO Cbc With Automated Diff (07/06/18 21:11) Comprehensive Metabolic Panel (07/06/18 21:11) Acetaminophen Tablet (Tylenol Tablet) (07/06/18 21:15) Medications Given in ED Vital Signs/I&O 3/16/19 3/16/19 20:57 21:59 Temp 98.6 98.6 Pulse 120 88 Resp 22 20 B/P (MAP) 127/92 (104) 124/90 (101) Pulse Ox 97 98 O2 Delivery Room Air Room Air Progress Progress Note : Time: 21:54 Progress Note I have seen and evaluated the patient. I've informed her of her laboratory findings. We do not have ultrasound console operator at this time even though I do not believe it is warranted given heart tones were present on arrival to the emergency room. She agrees with plan of care, plans for discharge, return precautions were given. Departure Impression Primary Impression: Threatened miscarriage Disposition: HOME, SELF-CARE Condition: Stable/Unchanged Departure-Patient Inst. Decision time for Depature: 21:54 Referrals: NO,LOCAL PHYSICIAN (PCP/Family) Primary Care Physician Patient Instructions: Threatened Miscarriage (DC) Add. Discharge Instructions: You may use Tylenol as directed by the bottle for pain. Follow-up with Dr. SANTIAGO as scheduled on Sunday of this week. Return back to the emergency room for worsening symptoms, worsening vaginal bleeding, or concerns as needed. All discharge instructions reviewed with patient and/or family. Voiced understanding. VICTOR M CASTELLANO Jul 06, 2018 21:20
[2018-07-06 21:25] LABS: CLARITY,URINE SL CLOUDY
[2018-07-06 21:26] LABS: AMORPHOUS SEDIMENT,UR MOD AMOR PHOSPHATE /LPF; BACTERIA,URINE FEW /HPF; WBC,URINE RARE /HPF
[2018-07-06 21:31] LABS: ALANINE AMINOTRANSFERASE 15 U/L (0-55); ALBUMIN 4.4 GM/DL (3.2-4.5); ALKALINE PHOSPHATASE 49 U/L (40-136); BILIRUBIN,TOTAL 0.2 MG/DL (0.1-1.0); BUN/CREATININE RATIO 13; CALCIUM 9.7 MG/DL (8.5-10.1); CARBON DIOXIDE 19 MMOL/L (21-32); CHLORIDE 106 MMOL/L (98-107); CREATININE SERUM 0.63 MG/DL (0.60-1.30); GFR ESTIMATED > 60; GLUCOSE 125 MG/DL (70-105); POTASSIUM 3.6 MMOL/L (3.6-5.0); SODIUM 137 MMOL/L (135-145); TOTAL PROTEIN 7.6 GM/DL (6.4-8.2)
[2018-07-06 21:59] VITALS: BP 124/90
== END 2018-07-06 21:59 | disposition home or self-care (01) ==
LOC: EDUNIT# 20:08 → ER 20:10
DX: O20.0 Threatened abortion (principal); O99.342 Other mental disorders complicating pregnancy, second trimester; F41.9 Anxiety disorder, unspecified; F32.9 Major depressive disorder, single episode, unspecified; O99.89 Other specified diseases and conditions complicating pregnancy, childbirth and the puerperium; M35.00 Sjogren syndrome, unspecified; Z88.6 Allergy status to analgesic agent; Z3A.15 15 weeks gestation of pregnancy; Z87.891 Personal history of nicotine dependence
CPT/HCPCS: 36415; 80053; 81000; 85025; 87088

== ENCOUNTER 2018-07-12 12:52 | Emergency (ER) | payer MEDICAID ==
[~2018-07-12] VITALS: Ht 175.3 cm; Wt 68.0 kg
--- OUTSIDE RECORDS SUMMARY | 2018-07-12 13:05 | XMS REPORT | Continuity of Care Document ---
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 </td> <td>NRG</td> </tr> </tbody> </table> </ text> <entry> <organizer moodCode="EVN" classCode="BATTERY"> < templateId root="06.08.840.1.060346.10.4.1" /> <id nullFlavor="NA" /> <code codeSystem="local" code="CBCD" displayName="CBC W/DIFF" /> < statusCode code="completed" /> <component> <observation moodCode= "EVN" classCode="OBS"> <templateId root="06.08.840.1.403047.10.4.2 " /> <id nullFlavor="NA" /> <code codeSystem="local" code="EO# " displayName="EOSINOPHIL #" /> <statusCode code="completed" /> <effectiveTime value="163795669292" /> <value unit="k/cumm" xsi:type ="PQ" value="0.2" /> <referenceRange> <observationRange> <text>0.1-0.5</text> </observationRange> </ referenceRange> </observation> </component> <component> <observation moodCode="EVN" classCode="OBS"> <templateId root= "16.840.1.296262.10.4.2" /> <id nullFlavor="NA" /> < code codeSystem="local" code="EO%" displayName="EOSINOPHIL %" /> <statusCode code="completed" /> <effectiveTime value="157792582045" /> <value unit="%" xsi:type="PQ" value="2" /> < referenceRange> <observationRange> <text>2-4</text> </observationRange> </referenceRange> </observation> </component> <component> <observation moodCode="EVN" classCode= "OBS"> <templateId root="06.08.840.1.474260.02.09.22.4.2" /> < id nullFlavor="NA" /> <code codeSystem="local" code="GR#" displayName= "GRANULOCYTE #" /> <statusCode code="completed" /> < effectiveTime value="051212763837" /> <value unit="k/cumm" xsi:type="PQ " value="4.1" /> <referenceRange> <observationRange> <text>2.0-9.0</text> </observationRange> </ referenceRange> </observation> </component> <component> <observation moodCode="EVN" classCode="OBS"> <templateId root= "06.08.840.1.963086.02.09.224.2" /> <id nullFlavor="NA" /> < code codeSystem="local" code="GR%" displayName="GRANULOCYTE %" /> <statusCode code="completed" /> <effectiveTime value="787030650396 " /> <value unit="%" xsi:type="PQ" value="52" /> < referenceRange> <observationRange> <text>50-75</text> </observationRange> </referenceRange> </observation> </component> <component> <observation moodCode="EVN" classCode= "OBS"> <templateId root="2.16.840.1.077593.02.09.224.2" /> < id nullFlavor="NA" /> <code codeSystem="local" code="LY#" displayName= "LYMPHOCYTE #" /> <statusCode code="completed" /> < effectiveTime value="" /> <value unit="k/cumm" xsi:type="PQ " value="3.1" /> <referenceRange> <observationRange> <text>1.0-4.0</text> </observationRange> </ referenceRange> </observation> </component> <component> <observation moodCode="EVN" classCode="OBS"> <templateId root= "216.840.1.606864.02.09.22.4.2" /> <id nullFlavor="NA" /> < code codeSystem="local" code="LY%" displayName="LYMPHOCYTE %" /> <statusCode code="completed" /> <effectiveTime value="064493809748" /> <value unit="%" xsi:type="PQ" value="39" /> < interpretationCode codeSystem="local" code="*" /> <referenceRange> <observationRange> <text>20-30</text> </ observationRange> </referenceRange> </observation> </ component> <component> <observation moodCode="EVN" classCode="OBS"> <templateId root="216.840.1.540744.10.2022.4.2" /> <id nullFlavor="NA" /> <code codeSystem="local" code="MCH" displayName= "MEAN CELL HGB" /> <statusCode code="completed" /> < effectiveTime value="624813928815" /> <value unit="pg" xsi:type="PQ" value="33.7" /> <interpretationCode codeSystem="local" code="*" /> <referenceRange> <observationRange> <text>27.0- 33.0</text> </observationRange> </referenceRange> </ observation> </component> <component> <observation moodCode= "EVN" classCode="OBS"> <templateId root="06.08.840.1.385320.02.09.22.4.2 " /> <id nullFlavor="NA" /> <code codeSystem="local" code= "MCHC" displayName="MEAN CELL HGB CONCENTRATION" /> <statusCode code= "completed" /> <effectiveTime value="995105870780" /> <value unit="g/dL" xsi:type="PQ" value="33.1" /> <referenceRange> < observationRange> <text>32.0-37.0</text> </ observationRange> </referenceRange> </observation> </ component> <component> <observation moodCode="EVN" classCode="OBS"> <templateId root="216.840.1.121439.102022.4.2" /> <id nullFlavor="NA" /> <code codeSystem="local" code="MCV" displayName= "MEAN CELL VOLUME" /> <statusCode code="completed" /> < effectiveTime value="316712808437" /> <value unit="fl" xsi:type="PQ" value="101.9" /> <interpretationCode codeSystem="local" code="*" /> <referenceRange> <observationRange> <text>80.0- 100.0</text> </observationRange> </referenceRange> </ observation> </component> <component> <observation moodCode= "EVN" classCode="OBS"> <templateId root="2.16.840.1.484682.10.20.22.4.2 " /> <id nullFlavor="NA" /> <code codeSystem="local" code="MO# " displayName="MONOCYTE #" /> <statusCode code="completed" /> <effectiveTime value="068126917305" /> <value unit="k/cumm" xsi:type= "PQ" value="0.5" /> <referenceRange> <observationRange> <text>0.1-1.0</text> </observationRange> </ referenceRange> </observation> </component> <component> <observation moodCode="EVN" classCode="OBS"> <templateId root= "2.16.840.1.073180.10.20.22.4.2" /> <id nullFlavor="NA" /> < code codeSystem="local" code="MO%" displayName="MONOCYTE %" /> <statusCode code="completed" /> <effectiveTime value="267051385959" /> <value unit="%" xsi:type="PQ" value="7" /> < interpretationCode codeSystem="local" code="*" /> <referenceRange> <observationRange> <text>4-6</text> </ observationRange> </referenceRange> </observation> </ component> <component> <observation moodCode="EVN" classCode="OBS"> <templateId root="16.840.1.247414.10..22.4.2" /> <id nullFlavor="NA" /> <code codeSystem="local" code="RBC" displayName=" RED BLOOD CELL" /> <statusCode code="completed" /> < effectiveTime value="869501605015" /> <value unit="m/cumm" xsi:type="PQ " value="3.62" /> <interpretationCode codeSystem="local" code="*" /> <referenceRange> <observationRange> <text>4.00- 6.00</text> </observationRange> </referenceRange> </ observation> </component> <component> <observation moodCode= "EVN" classCode="OBS"> <templateId root="16.840.1.300205...4.2 " /> <id nullFlavor="NA" /> <code codeSystem="local" code="RDW " displayName="RED CELL DISTRIBUTION WIDTH" /> <statusCode code= "completed" /> <effectiveTime value="" /> <value unit="%" xsi:type="PQ" value="12.3" /> <referenceRange> <observationRange> <text>11.0-15.6</text> </ observationRange> </referenceRange> </observation> </ component> <component> <observation moodCode="EVN" classCode="OBS"> <templateId root="16.840.1.514198.10..22.4.2" /> <id nullFlavor="NA" /> <code codeSystem="local" code="WBC" displayName= "WHITE BLOOD CELL" /> <statusCode code="completed" /> < effectiveTime value="768280110968" /> <value unit="k/cumm" xsi:type="PQ " value="8.0" /> <referenceRange> <observationRange> <text>5.0-10.0</text> </observationRange> </ referenceRange> </observation> </component> <component> <observation moodCode="EVN" classCode="OBS"> <templateId root= "216.840.1.395070.10.20.22.4.2" /> <id nullFlavor="NA" /> < code codeSystem="local" code="HGBT" displayName="HEMOGLOBIN" /> < statusCode code="completed" /> <effectiveTime value="493137498074" /> <value unit="gm/dL" xsi:type="PQ" value="12.2" /> < referenceRange> <observationRange> <text>12.0-16.0</text > </observationRange> </referenceRange> </observation > </component> <component> <observation moodCode="EVN" classCode="OBS"> <templateId root="06.08.840.1.272583.10..22.4.2" /> <id nullFlavor="NA" /> <code codeSystem="local" code="HCTT" displayName="HEMATOCRIT" /> <statusCode code="completed" /> < effectiveTime value="494532115285" /> <value unit="%" xsi:type="PQ " value="36.9" /> <interpretationCode codeSystem="local" code="*" /> <referenceRange> <observationRange> <text>37.0- 47.0</text> </observationRange> </referenceRange> </ observation> </component> <component> <observation moodCode= "EVN" classCode="OBS"> <templateId root="16.840.1.543528.10.20.22.4.2 " /> <id nullFlavor="NA" /> <code codeSystem="local" code="PLT " displayName="PLATELET COUNT" /> <statusCode code="completed" /> <effectiveTime value="439243089855" /> <value unit="k/cumm" xsi: type="PQ" value="213" /> <referenceRange> <observationRange > <text>150-450</text> </observationRange> </ referenceRange> </observation> </component> </organizer> </entry > <entry> <organizer moodCode="EVN" classCode="BATTERY"> <templateId root="216.840.1.592235.10..22.4.1" /> <id nullFlavor="NA" /> <code codeSystem="local" code="SEDWES" displayName="SED RATE WESTERGREN" /> < statusCode code="completed" /> <component> <observation moodCode= "EVN" classCode="OBS"> <templateId root="216.840.1.096791.10..22.4.2 " /> <id nullFlavor="NA" /> <code codeSystem="local" code= "SEDWES" displayName="SED RATE WESTERGREN" /> <statusCode code= "completed" /> <effectiveTime value="270081293148" /> <value unit="mm/hr" xsi:type="PQ" value="12" /> <referenceRange> < observationRange> <text>0-20</text> </observationRange> </referenceRange> </observation> </component> </ organizer> </entry> <entry> <organizer moodCode="EVN" classCode="BATTERY"> <templateId root="16.840.1.870882.10.20.22.4.1" /> <id nullFlavor= "NA" /> <code codeSystem="local" code="METABC" displayName="METABOLIC PANEL , COMPREHN" /> <statusCode code="completed" /> <component> < observation moodCode="EVN" classCode="OBS"> <templateId root= "06.08.840.1.108423.10.4.2" /> <id nullFlavor="NA" /> < code codeSystem="local" code="K" displayName="POTASSIUM" /> < statusCode code="completed" /> <effectiveTime value="601414931729" /> <value unit="mmol/L" xsi:type="PQ" value="4.1" /> < referenceRange> <observationRange> <text>3.5-5.3</text> </observationRange> </referenceRange> </observation > </component> <component> <observation moodCode="EVN" classCode="OBS"> <templateId root="06.08.840.1.523536.02.09.22.4.2" /> <id nullFlavor="NA" /> <code codeSystem="local" code="eGFR" displayName="EST GFR (MDRD)" /> <statusCode code="completed" /> <effectiveTime value="220062238154" /> <value unit="mL/min" xsi:type ="PQ" value="> 60" /> <referenceRange> <observationRange > <text>> 59</text> </observationRange> </ referenceRange> </observation> </component> <component> <observation moodCode="EVN" classCode="OBS"> <templateId root= "06.08.840.1.380048.10..4.2" /> <id nullFlavor="NA" /> < code codeSystem="local" code="GAP" displayName="ANION GAP" /> < statusCode code="completed" /> <effectiveTime value="551193097945" /> <value unit="mmol/L" xsi:type="PQ" value="6" /> < referenceRange> <observationRange> <text>5-15</text> </observationRange> </referenceRange> </observation> </component> <component> <observation moodCode="EVN" classCode= "OBS"> <templateId root="06.08.840.1.175630.10...4.2" /> < id nullFlavor="NA" /> <code codeSystem="local" code="eCrCl" displayName ="EST CrCl (CG)" /> <statusCode code="completed" /> < effectiveTime value="739826709784" /> <value unit="mL/min" xsi:type="PQ " value="> 60" /> <referenceRange> <observationRange> <text>> 59</text> </observationRange> </ referenceRange> </observation> </component> <component> <observation moodCode="EVN" classCode="OBS"> <templateId root= "840.1.689298.02.09.22.4.2" /> <id nullFlavor="NA" /> < code codeSystem="local" code="GLU" displayName="GLUCOSE" /> < statusCode code="completed" /> <effectiveTime value="919673477001" /> <value unit="mg/dL" xsi:type="PQ" value="96" /> < referenceRange> <observationRange> <text>70-99</text> </observationRange> </referenceRange> </observation> </component> <component> <observation moodCode="EVN" classCode= "OBS"> <templateId root="06.08.840.1.438053.10.20.22.4.2" /> < id nullFlavor="NA" /> <code codeSystem="local" code="CA" displayName= "CALCIUM" /> <statusCode code="completed" /> <effectiveTime value="987394445173" /> <value unit="mg/dL" xsi:type="PQ" value="9.2" / > <referenceRange> <observationRange> <text>8.5 -10.1</text> </observationRange> </referenceRange> </ observation> </component> <component> <observation moodCode= "EVN" classCode="OBS"> <templateId root="216.840.1.292351.10..4.2 " /> <id nullFlavor="NA" /> <code codeSystem="local" code="BUN " displayName="BLOOD UREA NITROGEN" /> <statusCode code="completed" /> <effectiveTime value="701906444311" /> <value unit="mg/dL" xsi:type="PQ" value="16" /> <referenceRange> < observationRange> <text>7-20</text> </observationRange> </referenceRange> </observation> </component> < component> <observation moodCode="EVN" classCode="OBS"> < templateId root="06.08.840.1.601574.10..4.2" /> <id nullFlavor="NA " /> <code codeSystem="local" code="CREAT" displayName="CREATININE" /> <statusCode code="completed" /> <effectiveTime value= "886857100356" /> <value unit="mg/dL" xsi:type="PQ" value="0.7" /> <referenceRange> <observationRange> <text>0.6-1.0< /text> </observationRange> </referenceRange> </ observation> </component> <component> <observation moodCode= "EVN" classCode="OBS"> <templateId root="216.840.1.981045.10..22.4.2 " /> <id nullFlavor="NA" /> <code codeSystem="local" code="NA " displayName="SODIUM" /> <statusCode code="completed" /> < effectiveTime value="204104293435" /> <value unit="mmol/L" xsi:type="PQ " value="141" /> <referenceRange> <observationRange> <text>135-148</text> </observationRange> </ referenceRange> </observation> </component> <component> <observation moodCode="EVN" classCode="OBS"> <templateId root= "16.840.1.167890.10.20.22.4.2" /> <id nullFlavor="NA" /> < code codeSystem="local" code="CL" displayName="CHLORIDE" /> < statusCode code="completed" /> <effectiveTime value="134111996357" /> <value unit="mmol/L" xsi:type="PQ" value="105" /> < referenceRange> <observationRange> <text>98-110</text> </observationRange> </referenceRange> </observation> </component> <component> <observation moodCode="EVN" classCode ="OBS"> <templateId root="06.08.840.1.200751.10.20.22.4.2" /> < id nullFlavor="NA" /> <code codeSystem="local" code="AST" displayName= "AST/SGOT" /> <statusCode code="completed" /> <effectiveTime value="058900837817" /> <value unit="Units/L" xsi:type="PQ" value="18" /> <referenceRange> <observationRange> <text>10 -37</text> </observationRange> </referenceRange> </ observation> </component> <component> <observation moodCode= "EVN" classCode="OBS"> <templateId root="840.1.525618.10..4.2 " /> <id nullFlavor="NA" /> <code codeSystem="local" code="ALT " displayName="ALT/SGPT" /> <statusCode code="completed" /> < effectiveTime value="983503288251" /> <value unit="Units/L" xsi:type= "PQ" value="16" /> <referenceRange> <observationRange> <text>< 66</text> </observationRange> </ referenceRange> </observation> </component> <component> <observation moodCode="EVN" classCode="OBS"> <templateId root= "216.840.1.976963.02.09.22.4.2" /> <id nullFlavor="NA" /> < code codeSystem="local" code="CO2" displayName="CARBON DIOXIDE" /> < statusCode code="completed" /> <effectiveTime value="" /> <value unit="mmol/L" xsi:type="PQ" value="30" /> < referenceRange> <observationRange> <text>21-32</text> </observationRange> </referenceRange> </observation> </component> <component> <observation moodCode="EVN" classCode= "OBS"> <templateId root="16.840.1.610767.10.4.2" /> < id nullFlavor="NA" /> <code codeSystem="local" code="TP" displayName= "TOTAL PROTEIN" /> <statusCode code="completed" /> < effectiveTime value="" /> <value unit="gm/dL" xsi:type="PQ " value="8.1" /> <referenceRange> <observationRange> <text>6.4-8.2</text> </observationRange> </ referenceRange> </observation> </component> <component> <observation moodCode="EVN" classCode="OBS"> <templateId root= "16.840.1.548530.02.09.22.4.2" /> <id nullFlavor="NA" /> < code codeSystem="local" code="ALB" displayName="ALBUMIN" /> < statusCode code="completed" /> <effectiveTime value="" /> <value unit="gm/dL" xsi:type="PQ" value="4.5" /> < referenceRange> <observationRange> <text>3.4-5.0</text> </observationRange> </referenceRange> </observation > </component> <component> <observation moodCode="EVN" classCode="OBS"> <templateId root="16.840.1.602422.02.09.22.4.2" /> <id nullFlavor="NA" /> <code codeSystem="local" code="BILTOT" displayName="BILI TOTAL" /> <statusCode code="completed" /> < effectiveTime value="" /> <value unit="mg/dL" xsi:type="PQ " value="0.2" /> <referenceRange> <observationRange> <text>0.0-1.0</text> </observationRange> </ referenceRange> </observation> </component> <component> <observation moodCode="EVN" classCode="OBS"> <templateId root= "06.08.840.1.248614.10.22.4.2" /> <id nullFlavor="NA" /> < code codeSystem="local" code="ALKP" displayName="ALKALINE PHOSPHATASE TOTAL" /> <statusCode code="completed" /> <effectiveTime value= "" /> <value unit="IU/L" xsi:type="PQ" value="64" /> <referenceRange> <observationRange> <text>45-117</ text> </observationRange> </referenceRange> </ observation> </component> </organizer> </entry> <entry> <organizer moodCode="EVN" classCode="BATTERY"> <templateId root= "06.08.840.1.228474.10..22.4.1" /> <id nullFlavor="NA" /> <code codeSystem="local" code="CRP" displayName="C REACTIVE PROTEIN" /> < statusCode code="completed" /> <component> <observation moodCode= "EVN" classCode="OBS"> <templateId root="840.1.230043.10..4.2 " /> <id nullFlavor="NA" /> <code codeSystem="local" code="CRP " displayName="C REACTIVE PROTEIN" /> <statusCode code="completed" /> <effectiveTime value="089116702474" /> <value unit="mg/dL" xsi :type="PQ" value="< 0.2" /> <referenceRange> < observationRange> <text>0.00-0.90</text> </ observationRange> </referenceRange> </observation> </ component> </organizer> </entry> <entry> <organizer moodCode="EVN" classCode="BATTERY"> <templateId root="06.08.840.1.563167.10..22.4.1" /> <id nullFlavor="NA" /> <code codeSystem="local" code="PREGU" displayName="UR TEST" /> <statusCode code="completed" /> < component> <observation moodCode="EVN" classCode="OBS"> < templateId root="06.08.840.1.060398.10..22.4.2" /> <id nullFlavor="NA " /> <code codeSystem="local" code="PREGU" displayName="UR TEST" /> <statusCode code="completed" /> <effectiveTime value= "150597112515" /> <value unit="" xsi:type="PQ" value="NEGATIVE" /> <referenceRange> <observationRange> <text>NEGATIVE </text> </observationRange> </referenceRange> </ observation> </component> </organizer> </entry> <entry> <organizer moodCode="EVN" classCode="BATTERY"> <templateId root= "216.840.1.872064.10...4.1" /> <id nullFlavor="NA" /> <code codeSystem="local" code="UA" displayName="URINALYSIS, ROUTINE" /> < statusCode code="completed" /> <component> <observation moodCode= "EVN" classCode="OBS"> <templateId root="216.840.1.566402.10...4.2 " /> <id nullFlavor="NA" /> <code codeSystem="local" code= "LEUESU" displayName="UA LEUKOCYTE ESTERASE DIPSTICK" /> <statusCode code="completed" /> <effectiveTime value="405409932707" /> < value unit="" xsi:type="PQ" value="TRACE" /> <referenceRange> <observationRange> <text>NEGATIVE</text> </ observationRange> </referenceRange> </observation> </ component> <component> <observation moodCode="EVN" classCode="OBS"> <templateId root="16.840.1.343917.10...4.2" /> <id nullFlavor="NA" /> <code codeSystem="local" code="NITRIU" displayName= "UA NITRITE DIPSTICK" /> <statusCode code="completed" /> < effectiveTime value="" /> <value unit="" xsi:type="PQ" value="NEGATIVE" /> <referenceRange> <observationRange> <text>NEGATIVE</text> </observationRange> </ referenceRange> </observation> </component> <component> <observation moodCode="EVN" classCode="OBS"> <templateId root= "06.08.840.1.092961.02.09.22.4.2" /> <id nullFlavor="NA" /> < code codeSystem="local" code="PROTEIU" displayName="UA PROTEIN DIPSTICK" /> <statusCode code="completed" /> <effectiveTime value= "" /> <value unit="" xsi:type="PQ" value="TRACE" /> <referenceRange> <observationRange> <text>NEGATIVE</ text> </observationRange> </referenceRange> </ observation> </component> <component> <observation moodCode= "EVN" classCode="OBS"> <templateId root="06.08.840.1.209928.02.09.22.4.2 " /> <id nullFlavor="NA" /> <code codeSystem="local" code= "DGLUU" displayName="UA GLUCOSE DIPSTICK" /> <statusCode code= "completed" /> <effectiveTime value="" /> <value unit="" xsi:type="PQ" value="NEGATIVE" /> <referenceRange> < observationRange> <text>NEGATIVE</text> </ observationRange> </referenceRange> </observation> </ component> <component> <observation moodCode="EVN" classCode="OBS"> <templateId root="06.08.840.1.292443.02.09.22.4.2" /> <id nullFlavor="NA" /> <code codeSystem="local" code="KETONU" displayName= "UA KETONE DIPSTICK" /> <statusCode code="completed" /> < effectiveTime value="" /> <value unit="" xsi:type="PQ" value="NEGATIVE" /> <referenceRange> <observationRange> <text>NEGATIVE</text> </observationRange> </ referenceRange> </observation> </component> <component> <observation moodCode="EVN" classCode="OBS"> <templateId root= "16.840.1.512636.10..22.4.2" /> <id nullFlavor="NA" /> < code codeSystem="local" code="UROBILU" displayName="UA UROBILINOGEN DIPSTICK" / > <statusCode code="completed" /> <effectiveTime value= "" /> <value unit="" xsi:type="PQ" value="NORMAL" /> <referenceRange> <observationRange> <text>NORMAL</ text> </observationRange> </referenceRange> </ observation> </component> <component> <observation moodCode= "EVN" classCode="OBS"> <templateId root="16.840.1.087694.10..22.4.2 " /> <id nullFlavor="NA" /> <code codeSystem="local" code= "BILU" displayName="UA BILIRUBIN DIPSTICK" /> <statusCode code= "completed" /> <effectiveTime value="829594472510" /> <value unit="" xsi:type="PQ" value="2+" /> <interpretationCode codeSystem= "local" code="*" /> <referenceRange> <observationRange> <text>NEGATIVE</text> </observationRange> </ referenceRange> </observation> </component> <component> <observation moodCode="EVN" classCode="OBS"> <templateId root= "16.840.1.971901.10..22.4.2" /> <id nullFlavor="NA" /> < code codeSystem="local" code="SPENCER" displayName="UA BLOOD DIPSTICK" /> < statusCode code="completed" /> <effectiveTime value="429918777343" /> <value unit="" xsi:type="PQ" value="4+" /> < interpretationCode codeSystem="local" code="*" /> <referenceRange> <observationRange> <text>NEGATIVE</text> </ observationRange> </referenceRange> </observation> </ component> <component> <observation moodCode="EVN" classCode="OBS"> <templateId root="16.840.1.805939.10..4.2" /> <id nullFlavor="NA" /> <code codeSystem="local" code="SPGRU" displayName= "UA SPECIFIC GRAVITY" /> <statusCode code="completed" /> < effectiveTime value="553551903446" /> <value unit="" xsi:type="PQ" value="1.025" /> <referenceRange> <observationRange> <text>1.015-1.025</text> </observationRange> </ referenceRange> </observation> </component> <component> <observation moodCode="EVN" classCode="OBS"> <templateId root= "06.08.840.1.802729.10.20.22.4.2" /> <id nullFlavor="NA" /> < code codeSystem="local" code="FEROZ" displayName="UR PH" /> <statusCode code="completed" /> <effectiveTime value="582922045041" /> < value unit="" xsi:type="PQ" value="6.0" /> <referenceRange> <observationRange> <text>5.0-7.0</text> </ observationRange> </referenceRange> </observation> </ component> </organizer> </entry> <entry> <organizer moodCode="EVN" classCode="BATTERY"> <templateId root="16.840.1.147022.10.22.4.1" /> <id nullFlavor="NA" /> <code codeSystem="local" code="UAMICRO" displayName="UA MICROSCOPIC" /> <statusCode code="completed" /> < component> <observation moodCode="EVN" classCode="OBS"> < templateId root="216.840.1.138923.10..4.2" /> <id nullFlavor="NA " /> <code codeSystem="local" code="BACU" displayName="UA BACTERIA" /> <statusCode code="completed" /> <effectiveTime value= "135168920374" /> <value unit="" xsi:type="PQ" value="1+" /> < interpretationCode codeSystem="local" code="*" /> <referenceRange> <observationRange> <text>NEGATIVE</text> </ observationRange> </referenceRange> </observation> </ component> <component> <observation moodCode="EVN" classCode="OBS"> <templateId root="16.840.1.267185.02.09.22.4.2" /> <id nullFlavor="NA" /> <code codeSystem="local" code="EPIU" displayName=" UA EPITHELIAL CELLS" /> <statusCode code="completed" /> < effectiveTime value="453084520726" /> <value unit="epi/hpf" xsi:type= "PQ" value="1+" /> <referenceRange> <observationRange> <text>0 - 1+</text> </observationRange> </ referenceRange> </observation> </component> <component> <observation moodCode="EVN" classCode="OBS"> <templateId root= "216.840.1.795689.10..4.2" /> <id nullFlavor="NA" /> < code codeSystem="local" code="MUCUSU" displayName="UA MUCUS" /> < statusCode code="completed" /> <effectiveTime value="" /> <value unit="" xsi:type="PQ" value="1+" /> <referenceRange> <observationRange> <text>NEG TO 1+</text> </ observationRange> </referenceRange> </observation> </ component> <component> <observation moodCode="EVN" classCode="OBS"> <templateId root="16.840.1.655944.10...4.2" /> <id nullFlavor="NA" /> <code codeSystem="local" code="RBCU" displayName=" UA RBC" /> <statusCode code="completed" /> <effectiveTime value="" /> <value unit="rbc/hpf" xsi:type="PQ" value="20- 50" /> <interpretationCode codeSystem="local" code="*" /> < referenceRange> <observationRange> <text>0 - 3</text> </observationRange> </referenceRange> </observation> </component> <component> <observation moodCode="EVN" classCode= "OBS"> <templateId root="16.840.1.960620.10...4.2" /> < id nullFlavor="NA" /> <code codeSystem="local" code="UAVOL" displayName ="UA VOLUME FOR EXAM" /> <statusCode code="completed" /> < effectiveTime value="" /> <value unit="mL" xsi:type="PQ" value="12.0" /> <referenceRange> <observationRange> <text>(12mL STD)</text> </observationRange> </ referenceRange> </observation> </component> <component> <observation moodCode="EVN" classCode="OBS"> <templateId root= "216.840.1.644774.10.20.22.4.2" /> <id nullFlavor="NA" /> < code codeSystem="local" code="WBCU" displayName="UA WBC" /> < statusCode code="completed" /> <effectiveTime value="[id number]" /> <value unit="wbc/hpf" xsi:type="PQ" value="2-5" /> < referenceRange> <observationRange> <text>0 - 5</text> </observationRange> </referenceRange> </observation> </component> </organizer> </entry> <entry> <organizer moodCode="EVN " classCode="BATTERY"> <templateId root="216.840.1.491005.10..22.4.1" / > <id nullFlavor="NA" /> <code codeSystem="local" code="PREGU" displayName="UR TEST" /> <statusCode code="completed" /> < component> <observation moodCode="EVN" classCode="OBS"> < templateId root="06.08.840.1.959831.10.20.22.4.2" /> <id nullFlavor="NA " /> <code codeSystem="local" code="PREGU" displayName="UR TEST" /> <statusCode code="completed" /> <effectiveTime value= "850676670646" /> <value unit="" xsi:type="PQ" value="NEGATIVE" /> <referenceRange> <observationRange> <text>NEGATIVE </text> </observationRange> </referenceRange> </ observation> </component> </organizer> </entry> <entry> <organizer moodCode="EVN" classCode="BATTERY"> <templateId root= "216.840.1.662218.10..22.4.1" /> <id nullFlavor="NA" /> <code codeSystem="local" code="UA" displayName="URINALYSIS, ROUTINE" /> < statusCode code="completed" /> <component> <observation moodCode= "EVN" classCode="OBS"> <templateId root="216.840.1.084949.10...4.2 " /> <id nullFlavor="NA" /> <code codeSystem="local" code= "LEUESU" displayName="UA LEUKOCYTE ESTERASE DIPSTICK" /> <statusCode code="completed" /> <effectiveTime value="218159738402" /> < value unit="" xsi:type="PQ" value="TRACE" /> <referenceRange> <observationRange> <text>NEGATIVE</text> </ observationRange> </referenceRange> </observation> </ component> <component> <observation moodCode="EVN" classCode="OBS"> <templateId root="216.840.1.447778.10..22.4.2" /> <id nullFlavor="NA" /> <code codeSystem="local" code="NITRIU" displayName= "UA NITRITE DIPSTICK" /> <statusCode code="completed" /> < effectiveTime value="908912835910" /> <value unit="" xsi:type="PQ" value="NEGATIVE" /> <referenceRange> <observationRange> <text>NEGATIVE</text> </observationRange> </ referenceRange> </observation> </component> <component> <observation moodCode="EVN" classCode="OBS"> <templateId root= "06.08.840.1.163989.10.22.4.2" /> <id nullFlavor="NA" /> < code codeSystem="local" code="PROTEIU" displayName="UA PROTEIN DIPSTICK" /> <statusCode code="completed" /> <effectiveTime value= "707404992790" /> <value unit="" xsi:type="PQ" value="TRACE" /> <referenceRange> <observationRange> <text>NEGATIVE</ text> </observationRange> </referenceRange> </ observation> </component> <component> <observation moodCode= "EVN" classCode="OBS"> <templateId root="216.840.1.884162.10..4.2 " /> <id nullFlavor="NA" /> <code codeSystem="local" code= "DGLUU" displayName="UA GLUCOSE DIPSTICK" /> <statusCode code= "completed" /> <effectiveTime value="564488951319" /> <value unit="" xsi:type="PQ" value="NEGATIVE" /> <referenceRange> < observationRange> <text>NEGATIVE</text> </ observationRange> </referenceRange> </observation> </ component> <component> <observation moodCode="EVN" classCode="OBS"> <templateId root="16.840.1.855486.02.09.22.4.2" /> <id nullFlavor="NA" /> <code codeSystem="local" code="KETONU" displayName= "UA KETONE DIPSTICK" /> <statusCode code="completed" /> < effectiveTime value="133062163942" /> <value unit="" xsi:type="PQ" value="NEGATIVE" /> <referenceRange> <observationRange> <text>NEGATIVE</text> </observationRange> </ referenceRange> </observation> </component> <component> <observation moodCode="EVN" classCode="OBS"> <templateId root= "216.840.1.111256.10..22.4.2" /> <id nullFlavor="NA" /> < code codeSystem="local" code="UROBILU" displayName="UA UROBILINOGEN DIPSTICK" / > <statusCode code="completed" /> <effectiveTime value= "343763580603" /> <value unit="" xsi:type="PQ" value="NORMAL" /> <referenceRange> <observationRange> <text>NORMAL</ text> </observationRange> </referenceRange> </ observation> </component> <component> <observation moodCode= "EVN" classCode="OBS"> <templateId root="216.840.1.661072.10..4.2 " /> <id nullFlavor="NA" /> <code codeSystem="local" code= "BILU" displayName="UA BILIRUBIN DIPSTICK" /> <statusCode code= "completed" /> <effectiveTime value="870132129304" /> <value unit="" xsi:type="PQ" value="3+" /> <interpretationCode codeSystem= "local" code="*" /> <referenceRange> <observationRange> <text>NEGATIVE</text> </observationRange> </ referenceRange> </observation> </component> <component> <observation moodCode="EVN" classCode="OBS"> <templateId root= "216.840.1.258496.10..22.4.2" /> <id nullFlavor="NA" /> < code codeSystem="local" code="SPENCER" displayName="UA BLOOD DIPSTICK" /> < statusCode code="completed" /> <effectiveTime value="695745725987" /> <value unit="" xsi:type="PQ" value="NEGATIVE" /> < referenceRange> <observationRange> <text>NEGATIVE</text > </observationRange> </referenceRange> </observation > </component> <component> <observation moodCode="EVN" classCode="OBS"> <templateId root="16.840.1.958608.10..22.4.2" /> <id nullFlavor="NA" /> <code codeSystem="local" code="SPGRU" displayName="UA SPECIFIC GRAVITY" /> <statusCode code="completed" /> <effectiveTime value="682364101358" /> <value unit="" xsi:type= "PQ" value="1.015" /> <referenceRange> <observationRange> <text>1.015-1.025</text> </observationRange> </ referenceRange> </observation> </component> <component> <observation moodCode="EVN" classCode="OBS"> <templateId root= "16.840.1.196752.10..4.2" /> <id nullFlavor="NA" /> < code codeSystem="local" code="FEROZ" displayName="UR PH" /> <statusCode code="completed" /> <effectiveTime value="781339268248" /> < value unit="" xsi:type="PQ" value="6.5" /> <referenceRange> <observationRange> <text>5.0-7.0</text> </ observationRange> </referenceRange> </observation> </ component> </organizer> </entry> <entry> <organizer moodCode="EVN" classCode="BATTERY"> <templateId root="06.08.840.1.528103.10..22.4.1" /> <id nullFlavor="NA" /> <code codeSystem="local" code="UAMICRO" displayName="UA MICROSCOPIC" /> <statusCode code="completed" /> < component> <observation moodCode="EVN" classCode="OBS"> < templateId root="216.840.1.710712.10..4.2" /> <id nullFlavor="NA " /> <code codeSystem="local" code="BACU" displayName="UA BACTERIA" /> <statusCode code="completed" /> <effectiveTime value= "940584669400" /> <value unit="" xsi:type="PQ" value="2+" /> < interpretationCode codeSystem="local" code="*" /> <referenceRange> <observationRange> <text>NEGATIVE</text> </ observationRange> </referenceRange> </observation> </ component> <component> <observation moodCode="EVN" classCode="OBS"> <templateId root="16.840.1.697193.02.09.22.4.2" /> <id nullFlavor="NA" /> <code codeSystem="local" code="EPIU" displayName=" UA EPITHELIAL CELLS" /> <statusCode code="completed" /> < effectiveTime value="012143844697" /> <value unit="epi/hpf" xsi:type= "PQ" value="2+" /> <interpretationCode codeSystem="local" code="*" /> <referenceRange> <observationRange> <text>0 - 1 +</text> </observationRange> </referenceRange> </ observation> </component> <component> <observation moodCode= "EVN" classCode="OBS"> <templateId root="16.840.1.688260.10..4.2 " /> <id nullFlavor="NA" /> <code codeSystem="local" code= "MUCUSU" displayName="UA MUCUS" /> <statusCode code="completed" /> <effectiveTime value="005928743821" /> <value unit="" xsi:type= "PQ" value="2+" /> <interpretationCode codeSystem="local" code="*" /> <referenceRange> <observationRange> <text>NEG TO 1+</text> </observationRange> </referenceRange> </ observation> </component> <component> <observation moodCode= "EVN" classCode="OBS"> <templateId root="16.840.1.697304.02.09.22.4.2 " /> <id nullFlavor="NA" /> <code codeSystem="local" code= "RBCU" displayName="UA RBC" /> <statusCode code="completed" /> <effectiveTime value="535762801177" /> <value unit="rbc/hpf" xsi:type ="PQ" value="0-3" /> <referenceRange> <observationRange> <text>0 - 3</text> </observationRange> </ referenceRange> </observation> </component> <component> <observation moodCode="EVN" classCode="OBS"> <templateId root= "06.08.840.1.632835.02.09.22.4.2" /> <id nullFlavor="NA" /> < code codeSystem="local" code="UAVOL" displayName="UA VOLUME FOR EXAM" /> <statusCode code="completed" /> <effectiveTime value="652762958663" /> <value unit="mL" xsi:type="PQ" value="12.0" /> < referenceRange> <observationRange> <text>(12mL STD)</ text> </observationRange> </referenceRange> </ observation> </component> <component> <observation moodCode= "EVN" classCode="OBS"> <templateId root="216.840.1.300631..22.4.2 " /> <id nullFlavor="NA" /> <code codeSystem="local" code= "WBCU" displayName="UA WBC" /> <statusCode code="completed" /> <effectiveTime value="065247908464" /> <value unit="wbc/hpf" xsi:type ="PQ" value="2-5" /> <referenceRange> <observationRange> <text>0 - 5</text> </observationRange> </ referenceRange> </observation> </component> </organizer> </entry > <entry> <organizer moodCode="EVN" classCode="BATTERY"> <templateId root="216.840.1.650630.10..22.4.1" /> <id nullFlavor="NA" /> <code codeSystem="local" code="DIMER" displayName="D-DIMER QUANT" /> <statusCode code="completed" /> <component> <observation moodCode="EVN" classCode="OBS"> <templateId root="216.840.1.896865.10..22.4.2" /> <id nullFlavor="NA" /> <code codeSystem="local" code="DIMER" displayName="D-DIMER QUANT" /> <statusCode code="completed" /> <effectiveTime value="679309394086" /> <value unit="ng/mL" xsi:type= "PQ" value="< 150" /> <referenceRange> <observationRange > <text>0-229</text> </observationRange> </ referenceRange> </observation> </component> </organizer> </entry > <entry> <organizer moodCode="EVN" classCode="BATTERY"> <templateId root="216.840.1.393032.10.20.22.4.1" /> <id nullFlavor="NA" /> <code codeSystem="local" code="CBCD" displayName="CBC W/DIFF" /> <statusCode code ="completed" /> <component> <observation moodCode="EVN" classCode= "OBS"> <templateId root="216.840.1.372126.10..4.2" /> < id nullFlavor="NA" /> <code codeSystem="local" code="EO#" displayName= "EOSINOPHIL #" /> <statusCode code="completed" /> < effectiveTime value="" /> <value unit="k/cumm" xsi:type="PQ " value="0.1" /> <referenceRange> <observationRange> <text>0.1-0.5</text> </observationRange> </ referenceRange> </observation> </component> <component> <observation moodCode="EVN" classCode="OBS"> <templateId root= "06.08.840.1.278904.02.09.224.2" /> <id nullFlavor="NA" /> < code codeSystem="local" code="EO%" displayName="EOSINOPHIL %" /> <statusCode code="completed" /> <effectiveTime value="" /> <value unit="%" xsi:type="PQ" value="1" /> < interpretationCode codeSystem="local" code="*" /> <referenceRange> <observationRange> <text>2-4</text> </ observationRange> </referenceRange> </observation> </ component> <component> <observation moodCode="EVN" classCode="OBS"> <templateId root="16.840.1.446681.02.09.22.4.2" /> <id nullFlavor="NA" /> <code codeSystem="local" code="GR#" displayName= "GRANULOCYTE #" /> <statusCode code="completed" /> < effectiveTime value="" /> <value unit="k/cumm" xsi:type="PQ " value="4.8" /> <referenceRange> <observationRange> <text>2.0-9.0</text> </observationRange> </ referenceRange> </observation> </component> <component> <observation moodCode="EVN" classCode="OBS"> <templateId root= "16.840.1.317623.10.22.4.2" /> <id nullFlavor="NA" /> < code codeSystem="local" code="GR%" displayName="GRANULOCYTE %" /> <statusCode code="completed" /> <effectiveTime value=" " /> <value unit="%" xsi:type="PQ" value="62" /> < referenceRange> <observationRange> <text>50-75</text> </observationRange> </referenceRange> </observation> </component> <component> <observation moodCode="EVN" classCode= "OBS"> <templateId root="06.08.840.1.869882.02.09.22.4.2" /> < id nullFlavor="NA" /> <code codeSystem="local" code="LY#" displayName= "LYMPHOCYTE #" /> <statusCode code="completed" /> < effectiveTime value="" /> <value unit="k/cumm" xsi:type="PQ " value="2.4" /> <referenceRange> <observationRange> <text>1.0-4.0</text> </observationRange> </ referenceRange> </observation> </component> <component> <observation moodCode="EVN" classCode="OBS"> <templateId root= "16.840.1.234301.22.4.2" /> <id nullFlavor="NA" /> < code codeSystem="local" code="LY%" displayName="LYMPHOCYTE %" /> <statusCode code="completed" /> <effectiveTime value="" /> <value unit="%" xsi:type="PQ" value="31" /> < interpretationCode codeSystem="local" code="*" /> <referenceRange> <observationRange> <text>20-30</text> </ observationRange> </referenceRange> </observation> </ component> <component> <observation moodCode="EVN" classCode="OBS"> <templateId root="216.840.1.087353.02.09.224.2" /> <id nullFlavor="NA" /> <code codeSystem="local" code="MCH" displayName= "MEAN CELL HGB" /> <statusCode code="completed" /> < effectiveTime value="" /> <value unit="pg" xsi:type="PQ" value="34.5" /> <interpretationCode codeSystem="local" code="*" /> <referenceRange> <observationRange> <text>27.0- 33.0</text> </observationRange> </referenceRange> </ observation> </component> <component> <observation moodCode= "EVN" classCode="OBS"> <templateId root="06.08.840.1.259074.104.2 " /> <id nullFlavor="NA" /> <code codeSystem="local" code= "MCHC" displayName="MEAN CELL HGB CONCENTRATION" /> <statusCode code= "completed" /> <effectiveTime value="" /> <value unit="g/dL" xsi:type="PQ" value="33.1" /> <referenceRange> < observationRange> <text>32.0-37.0</text> </ observationRange> </referenceRange> </observation> </ component> <component> <observation moodCode="EVN" classCode="OBS"> <templateId root="06.08.840.1.955374.10.20.22.4.2" /> <id nullFlavor="NA" /> <code codeSystem="local" code="MCV" displayName= "MEAN CELL VOLUME" /> <statusCode code="completed" /> < effectiveTime value="" /> <value unit="fl" xsi:type="PQ" value="104.2" /> <interpretationCode codeSystem="local" code="*" /> <referenceRange> <observationRange> <text>80.0- 100.0</text> </observationRange> </referenceRange> </ observation> </component> <component> <observation moodCode= "EVN" classCode="OBS"> <templateId root="840.1.084256.22.4.2 " /> <id nullFlavor="NA" /> <code codeSystem="local" code="MO# " displayName="MONOCYTE #" /> <statusCode code="completed" /> <effectiveTime value="" /> <value unit="k/cumm" xsi:type= "PQ" value="0.5" /> <referenceRange> <observationRange> <text>0.1-1.0</text> </observationRange> </ referenceRange> </observation> </component> <component> <observation moodCode="EVN" classCode="OBS"> <templateId root= "06.08.840.1.797160.10.2022.4.2" /> <id nullFlavor="NA" /> < code codeSystem="local" code="MO%" displayName="MONOCYTE %" /> <statusCode code="completed" /> <effectiveTime value="" /> <value unit="%" xsi:type="PQ" value="6" /> < referenceRange> <observationRange> <text>4-6</text> </observationRange> </referenceRange> </observation> </component> <component> <observation moodCode="EVN" classCode= "OBS"> <templateId root="216.840.1.274319.10.20.22.4.2" /> < id nullFlavor="NA" /> <code codeSystem="local" code="RBC" displayName= "RED BLOOD CELL" /> <statusCode code="completed" /> < effectiveTime value="" /> <value unit="m/cumm" xsi:type="PQ " value="3.83" /> <interpretationCode codeSystem="local" code="*" /> <referenceRange> <observationRange> <text>4.00- 6.00</text> </observationRange> </referenceRange> </ observation> </component> <component> <observation moodCode= "EVN" classCode="OBS"> <templateId root="16.840.1.483925.10.20.22.4.2 " /> <id nullFlavor="NA" /> <code codeSystem="local" code="RDW " displayName="RED CELL DISTRIBUTION WIDTH" /> <statusCode code= "completed" /> <effectiveTime value="" /> <value unit="%" xsi:type="PQ" value="12.1" /> <referenceRange> <observationRange> <text>11.0-15.6</text> </ observationRange> </referenceRange> </observation> </ component> <component> <observation moodCode="EVN" classCode="OBS"> <templateId root="06.08.840.1.749540.10.20.22.4.2" /> <id nullFlavor="NA" /> <code codeSystem="local" code="WBC" displayName= "WHITE BLOOD CELL" /> <statusCode code="completed" /> < effectiveTime value="" /> <value unit="k/cumm" xsi:type="PQ " value="7.8" /> <referenceRange> <observationRange> <text>5.0-10.0</text> </observationRange> </ referenceRange> </observation> </component> <component> <observation moodCode="EVN" classCode="OBS"> <templateId root= "16.840.1.001216.10..22.4.2" /> <id nullFlavor="NA" /> < code codeSystem="local" code="HGBT" displayName="HEMOGLOBIN" /> < statusCode code="completed" /> <effectiveTime value="" /> <value unit="gm/dL" xsi:type="PQ" value="13.2" /> < referenceRange> <observationRange> <text>12.0-16.0</text > </observationRange> </referenceRange> </observation > </component> <component> <observation moodCode="EVN" classCode="OBS"> <templateId root="16.840.1.708478.10.20.22.4.2" /> <id nullFlavor="NA" /> <code codeSystem="local" code="HCTT" displayName="HEMATOCRIT" /> <statusCode code="completed" /> < effectiveTime value="" /> <value unit="%" xsi:type="PQ " value="39.9" /> <referenceRange> <observationRange> <text>37.0-47.0</text> </observationRange> </ referenceRange> </observation> </component> <component> <observation moodCode="EVN" classCode="OBS"> <templateId root= "2.16.840.1.276906.10..22.4.2" /> <id nullFlavor="NA" /> < code codeSystem="local" code="PLT" displayName="PLATELET COUNT" /> < statusCode code="completed" /> <effectiveTime value="" /> <value unit="k/cumm" xsi:type="PQ" value="309" /> < referenceRange> <observationRange> <text>150-450</text> </observationRange> </referenceRange> </observation > </component> </organizer> </entry> <entry> <organizer moodCode= "EVN" classCode="BATTERY"> <templateId root="2.16.840.1.967477.10..22.4.1 " /> <id nullFlavor="NA" /> <code codeSystem="local" code="UA" displayName="URINALYSIS, ROUTINE" /> <statusCode code="completed" /> < component> <observation moodCode="EVN" classCode="OBS"> < templateId root="2.16.840.1.830212.10..22.4.2" /> <id nullFlavor="NA " /> <code codeSystem="local" code="LEUESU" displayName="UA LEUKOCYTE ESTERASE DIPSTICK" /> <statusCode code="completed" /> < effectiveTime value="764796801970" /> <value unit="" xsi:type="PQ" value="TRACE" /> <referenceRange> <observationRange> <text>NEGATIVE</text> </observationRange> </ referenceRange> </observation> </component> <component> <observation moodCode="EVN" classCode="OBS"> <templateId root= "216.840.1.252751.10..22.4.2" /> <id nullFlavor="NA" /> < code codeSystem="local" code="NITRIU" displayName="UA NITRITE DIPSTICK" /> <statusCode code="completed" /> <effectiveTime value=" " /> <value unit="" xsi:type="PQ" value="NEGATIVE" /> < referenceRange> <observationRange> <text>NEGATIVE</text > </observationRange> </referenceRange> </observation > </component> <component> <observation moodCode="EVN" classCode="OBS"> <templateId root="216.840.1.132285.10..4.2" /> <id nullFlavor="NA" /> <code codeSystem="local" code="PROTEIU " displayName="UA PROTEIN DIPSTICK" /> <statusCode code="completed" /> <effectiveTime value="" /> <value unit="" xsi: type="PQ" value="1+" /> <interpretationCode codeSystem="local" code="* " /> <referenceRange> <observationRange> <text> NEGATIVE</text> </observationRange> </referenceRange> </observation> </component> <component> <observation moodCode ="EVN" classCode="OBS"> <templateId root= "06.08.840.1.077463.10..4.2" /> <id nullFlavor="NA" /> < code codeSystem="local" code="DGLUU" displayName="UA GLUCOSE DIPSTICK" /> <statusCode code="completed" /> <effectiveTime value=" " /> <value unit="" xsi:type="PQ" value="NEGATIVE" /> < referenceRange> <observationRange> <text>NEGATIVE</text > </observationRange> </referenceRange> </observation > </component> <component> <observation moodCode="EVN" classCode="OBS"> <templateId root="216.840.1.320264.02.09.22.4.2" /> <id nullFlavor="NA" /> <code codeSystem="local" code="KETONU" displayName="UA KETONE DIPSTICK" /> <statusCode code="completed" /> <effectiveTime value="" /> <value unit="" xsi:type= "PQ" value="NEGATIVE" /> <referenceRange> <observationRange > <text>NEGATIVE</text> </observationRange> </ referenceRange> </observation> </component> <component> <observation moodCode="EVN" classCode="OBS"> <templateId root= "216.840.1.912584.02.09.22.4.2" /> <id nullFlavor="NA" /> < code codeSystem="local" code="UROBILU" displayName="UA UROBILINOGEN DIPSTICK" / > <statusCode code="completed" /> <effectiveTime value= "" /> <value unit="" xsi:type="PQ" value="NORMAL" /> <referenceRange> <observationRange> <text>NORMAL</ text> </observationRange> </referenceRange> </ observation> </component> <component> <observation moodCode= "EVN" classCode="OBS"> <templateId root="16.840.1.432718.02.09.22.4.2 " /> <id nullFlavor="NA" /> <code codeSystem="local" code= "BILU" displayName="UA BILIRUBIN DIPSTICK" /> <statusCode code= "completed" /> <effectiveTime value="" /> <value unit="" xsi:type="PQ" value="NEGATIVE" /> <referenceRange> < observationRange> <text>NEGATIVE</text> </ observationRange> </referenceRange> </observation> </ component> <component> <observation moodCode="EVN" classCode="OBS"> <templateId root="216.840.1.933723.10..4.2" /> <id nullFlavor="NA" /> <code codeSystem="local" code="SPENCER" displayName="UA BLOOD DIPSTICK" /> <statusCode code="completed" /> < effectiveTime value="" /> <value unit="" xsi:type="PQ" value="NEGATIVE" /> <referenceRange> <observationRange> <text>NEGATIVE</text> </observationRange> </ referenceRange> </observation> </component> <component> <observation moodCode="EVN" classCode="OBS"> <templateId root= "06.08.840.1.282793.02.09.22.4.2" /> <id nullFlavor="NA" /> < code codeSystem="local" code="SPGRU" displayName="UA SPECIFIC GRAVITY" /> <statusCode code="completed" /> <effectiveTime value=" " /> <value unit="" xsi:type="PQ" value="1.025" /> < referenceRange> <observationRange> <text>1.015-1.025</ text> </observationRange> </referenceRange> </ observation> </component> <component> <observation moodCode= "EVN" classCode="OBS"> <templateId root="16.840.1.023566.02.09.22.4.2 " /> <id nullFlavor="NA" /> <code codeSystem="local" code="FEROZ " displayName="UR PH" /> <statusCode code="completed" /> < effectiveTime value="" /> <value unit="" xsi:type="PQ" value="5.0" /> <referenceRange> <observationRange> <text>5.0-7.0</text> </observationRange> </ referenceRange> </observation> </component> </organizer> </entry > <entry> <organizer moodCode="EVN" classCode="BATTERY"> <templateId root="06.08.840.1.352741.02.09.22.4.1" /> <id nullFlavor="NA" /> <code codeSystem="local" code="UAMICRO" displayName="UA MICROSCOPIC" /> < statusCode code="completed" /> <component> <observation moodCode= "EVN" classCode="OBS"> <templateId root="16.840.1.974500.02.09.22.4.2 " /> <id nullFlavor="NA" /> <code codeSystem="local" code= "BACU" displayName="UA BACTERIA" /> <statusCode code="completed" /> <effectiveTime value="" /> <value unit="" xsi:type= "PQ" value="1+" /> <interpretationCode codeSystem="local" code="*" /> <referenceRange> <observationRange> <text> NEGATIVE</text> </observationRange> </referenceRange> </observation> </component> <component> <observation moodCode ="EVN" classCode="OBS"> <templateId root= "06.08.840.1.911522.02.09.22.4.2" /> <id nullFlavor="NA" /> < code codeSystem="local" code="EPIU" displayName="UA EPITHELIAL CELLS" /> <statusCode code="completed" /> <effectiveTime value="" /> <value unit="epi/hpf" xsi:type="PQ" value="2+" /> < interpretationCode codeSystem="local" code="*" /> <referenceRange> <observationRange> <text>0 - 1+</text> </ observationRange> </referenceRange> </observation> </ component> <component> <observation moodCode="EVN" classCode="OBS"> <templateId root="216.840.1.401184.10...4.2" /> <id nullFlavor="NA" /> <code codeSystem="local" code="MUCUSU" displayName= "UA MUCUS" /> <statusCode code="completed" /> <effectiveTime value="" /> <value unit="" xsi:type="PQ" value="3+" /> <interpretationCode codeSystem="local" code="*" /> < referenceRange> <observationRange> <text>NEG TO 1+</text > </observationRange> </referenceRange> </observation > </component> <component> <observation moodCode="EVN" classCode="OBS"> <templateId root="06.08.840.1.674254.10..4.2" /> <id nullFlavor="NA" /> <code codeSystem="local" code="UAVOL" displayName="UA VOLUME FOR EXAM" /> <statusCode code="completed" /> <effectiveTime value="" /> <value unit="mL" xsi:type ="PQ" value="12.0" /> <referenceRange> <observationRange> <text>(12mL STD)</text> </observationRange> </ referenceRange> </observation> </component> <component> <observation moodCode="EVN" classCode="OBS"> <templateId root= "16.840.1.047268.10...4.2" /> <id nullFlavor="NA" /> < code codeSystem="local" code="WBCU" displayName="UA WBC" /> < statusCode code="completed" /> <effectiveTime value="" /> <value unit="wbc/hpf" xsi:type="PQ" value="0-1" /> < referenceRange> <observationRange> <text>0 - 5</text> </observationRange> </referenceRange> </observation> </component> </organizer> </entry> <entry> <organizer moodCode="EVN " classCode="BATTERY"> <templateId root="216.840.1.381441.10..22.4.1" / > <id nullFlavor="NA" /> <code codeSystem="local" code="PREGU" displayName="UR TEST" /> <statusCode code="completed" /> < component> <observation moodCode="EVN" classCode="OBS"> < templateId root="216.840.1.634668.10..22.4.2" /> <id nullFlavor="NA " /> <code codeSystem="local" code="PREGU" displayName="UR TEST" /> <statusCode code="completed" /> <effectiveTime value= "" /> <value unit="" xsi:type="PQ" value="NEGATIVE" /> <referenceRange> <observationRange> <text>NEGATIVE </text> </observationRange> </referenceRange> </ observation> </component> </organizer> </entry> <entry> <organizer moodCode="EVN" classCode="BATTERY"> <templateId root= "216.840.1.721371.10...4.1" /> <id nullFlavor="NA" /> <code codeSystem="local" code="METABC" displayName="METABOLIC PANEL, COMPREHN" /> <statusCode code="completed" /> <component> <observation moodCode= "EVN" classCode="OBS"> <templateId root="216.840.1.376548.10..22.4.2 " /> <id nullFlavor="NA" /> <code codeSystem="local" code="K" displayName="POTASSIUM" /> <statusCode code="completed" /> < effectiveTime value="" /> <value unit="mmol/L" xsi:type="PQ " value="3.5" /> <referenceRange> <observationRange> <text>3.5-5.3</text> </observationRange> </ referenceRange> </observation> </component> <component> <observation moodCode="EVN" classCode="OBS"> <templateId root= "216.840.1.131681.10..4.2" /> <id nullFlavor="NA" /> < code codeSystem="local" code="eGFR" displayName="EST GFR (MDRD)" /> < statusCode code="completed" /> <effectiveTime value="" /> <value unit="mL/min" xsi:type="PQ" value="> 60" /> < referenceRange> <observationRange> <text>> 59</text> </observationRange> </referenceRange> </observation > </component> <component> <observation moodCode="EVN" classCode="OBS"> <templateId root="16.840.1.861275.10..22.4.2" /> <id nullFlavor="NA" /> <code codeSystem="local" code="GAP" displayName="ANION GAP" /> <statusCode code="completed" /> < effectiveTime value="" /> <value unit="mmol/L" xsi:type="PQ " value="9" /> <referenceRange> <observationRange> <text>5-15</text> </observationRange> </referenceRange > </observation> </component> <component> <observation moodCode="EVN" classCode="OBS"> <templateId root= "216.840.1.191692.10..22.4.2" /> <id nullFlavor="NA" /> < code codeSystem="local" code="eCrCl" displayName="EST CrCl (CG)" /> < statusCode code="completed" /> <effectiveTime value="" /> <value unit="mL/min" xsi:type="PQ" value="> 60" /> < referenceRange> <observationRange> <text>> 59</text> </observationRange> </referenceRange> </observation > </component> <component> <observation moodCode="EVN" classCode="OBS"> <templateId root="06.08.840.1.268851.10..4.2" /> <id nullFlavor="NA" /> <code codeSystem="local" code="GLU" displayName="GLUCOSE" /> <statusCode code="completed" /> < effectiveTime value="" /> <value unit="mg/dL" xsi:type="PQ " value="79" /> <referenceRange> <observationRange> <text>70-99</text> </observationRange> </ referenceRange> </observation> </component> <component> <observation moodCode="EVN" classCode="OBS"> <templateId root= "06.08.840.1.994310.10..4.2" /> <id nullFlavor="NA" /> < code codeSystem="local" code="CA" displayName="CALCIUM" /> <statusCode code="completed" /> <effectiveTime value="" /> < value unit="mg/dL" xsi:type="PQ" value="9.2" /> <referenceRange> <observationRange> <text>8.5-10.1</text> </ observationRange> </referenceRange> </observation> </ component> <component> <observation moodCode="EVN" classCode="OBS"> <templateId root="216.840.1.027881.10..22.4.2" /> <id nullFlavor="NA" /> <code codeSystem="local" code="BUN" displayName= "BLOOD UREA NITROGEN" /> <statusCode code="completed" /> < effectiveTime value="" /> <value unit="mg/dL" xsi:type="PQ " value="14" /> <referenceRange> <observationRange> <text>7-20</text> </observationRange> </referenceRange > </observation> </component> <component> <observation moodCode="EVN" classCode="OBS"> <templateId root= "216.840.1.558800.10...4.2" /> <id nullFlavor="NA" /> < code codeSystem="local" code="CREAT" displayName="CREATININE" /> < statusCode code="completed" /> <effectiveTime value="" /> <value unit="mg/dL" xsi:type="PQ" value="0.7" /> < referenceRange> <observationRange> <text>0.6-1.0</text> </observationRange> </referenceRange> </observation > </component> <component> <observation moodCode="EVN" classCode="OBS"> <templateId root="216.840.1.105163.10..22.4.2" /> <id nullFlavor="NA" /> <code codeSystem="local" code="NA" displayName="SODIUM" /> <statusCode code="completed" /> < effectiveTime value="" /> <value unit="mmol/L" xsi:type="PQ " value="141" /> <referenceRange> <observationRange> <text>135-148</text> </observationRange> </ referenceRange> </observation> </component> <component> <observation moodCode="EVN" classCode="OBS"> <templateId root= "216.840.1.849226.10..22.4.2" /> <id nullFlavor="NA" /> < code codeSystem="local" code="CL" displayName="CHLORIDE" /> < statusCode code="completed" /> <effectiveTime value="" /> <value unit="mmol/L" xsi:type="PQ" value="103" /> < referenceRange> <observationRange> <text>98-110</text> </observationRange> </referenceRange> </observation> </component> <component> <observation moodCode="EVN" classCode ="OBS"> <templateId root="06.08.840.1.654244....4.2" /> < id nullFlavor="NA" /> <code codeSystem="local" code="AST" displayName= "AST/SGOT" /> <statusCode code="completed" /> <effectiveTime value="" /> <value unit="Units/L" xsi:type="PQ" value="12" /> <referenceRange> <observationRange> <text>10 -37</text> </observationRange> </referenceRange> </ observation> </component> <component> <observation moodCode= "EVN" classCode="OBS"> <templateId root="16.840.1.627555...22.4.2 " /> <id nullFlavor="NA" /> <code codeSystem="local" code="ALT " displayName="ALT/SGPT" /> <statusCode code="completed" /> < effectiveTime value="" /> <value unit="Units/L" xsi:type= "PQ" value="16" /> <referenceRange> <observationRange> <text>< 66</text> </observationRange> </ referenceRange> </observation> </component> <component> <observation moodCode="EVN" classCode="OBS"> <templateId root= "216.840.1.916224.10..22.4.2" /> <id nullFlavor="NA" /> < code codeSystem="local" code="CO2" displayName="CARBON DIOXIDE" /> < statusCode code="completed" /> <effectiveTime value="" /> <value unit="mmol/L" xsi:type="PQ" value="29" /> < referenceRange> <observationRange> <text>21-32</text> </observationRange> </referenceRange> </observation> </component> <component> <observation moodCode="EVN" classCode= "OBS"> <templateId root="216.840.1.505526.10..22.4.2" /> < id nullFlavor="NA" /> <code codeSystem="local" code="TP" displayName= "TOTAL PROTEIN" /> <statusCode code="completed" /> < effectiveTime value="" /> <value unit="gm/dL" xsi:type="PQ " value="8.2" /> <referenceRange> <observationRange> <text>6.4-8.2</text> </observationRange> </ referenceRange> </observation> </component> <component> <observation moodCode="EVN" classCode="OBS"> <templateId root= "216.840.1.982255.10..22.4.2" /> <id nullFlavor="NA" /> < code codeSystem="local" code="ALB" displayName="ALBUMIN" /> < statusCode code="completed" /> <effectiveTime value="" /> <value unit="gm/dL" xsi:type="PQ" value="4.6" /> < referenceRange> <observationRange> <text>3.4-5.0</text> </observationRange> </referenceRange> </observation > </component> <component> <observation moodCode="EVN" classCode="OBS"> <templateId root="16.840.1.128552.10...4.2" /> <id nullFlavor="NA" /> <code codeSystem="local" code="BILTOT" displayName="BILI TOTAL" /> <statusCode code="completed" /> < effectiveTime value="" /> <value unit="mg/dL" xsi:type="PQ " value="0.3" /> <referenceRange> <observationRange> <text>0.0-1.0</text> </observationRange> </ referenceRange> </observation> </component> <component> <observation moodCode="EVN" classCode="OBS"> <templateId root= "06.08.840.1.425420.10..22.4.2" /> <id nullFlavor="NA" /> < code codeSystem="local" code="ALKP" displayName="ALKALINE PHOSPHATASE TOTAL" /> <statusCode code="completed" /> <effectiveTime value= "" /> <value unit="IU/L" xsi:type="PQ" value="55" /> <referenceRange> <observationRange> <text>45-117</ text> </observationRange> </referenceRange> </ observation> </component> </organizer> </entry> <entry> <organizer moodCode="EVN" classCode="BATTERY"> <templateId root= "06.08.840.1.815588.10.4.1" /> <id nullFlavor="NA" /> <code codeSystem="local" code="LIP" displayName="LIPASE" /> <statusCode code= "completed" /> <component> <observation moodCode="EVN" classCode= "OBS"> <templateId root="840.1.190717.02.09.22.4.2" /> < id nullFlavor="NA" /> <code codeSystem="local" code="LIP" displayName= "LIPASE" /> <statusCode code="completed" /> <effectiveTime value="681836943107" /> <value unit="Units/L" xsi:type="PQ" value="117 " /> <referenceRange> <observationRange> <text> 73393</text> </observationRange> </referenceRange> < /observation> </component> </organizer> </entry> <entry> < organizer moodCode="EVN" classCode="BATTERY"> <templateId root= "840.1.941424.02.09.22.4.1" /> <id nullFlavor="NA" /> <code codeSystem="local" code="CBCWD" displayName="CBC With Platelet and Differential " /> <statusCode code="completed" /> <component> <observation moodCode="EVN" classCode="OBS"> <templateId root= "06.08.840.1.954664.02.09.22.4.2" /> <id nullFlavor="NA" /> < code codeSystem="local" code="ABASR" displayName="Absolute Basophils" /> <statusCode code="completed" /> <effectiveTime value="954754088709" /> <value unit="10*3/uL" xsi:type="PQ" value="0.01" /> < referenceRange> <observationRange> <text>0.00-0.20</text > </observationRange> </referenceRange> </observation > </component> <component> <observation moodCode="EVN" classCode="OBS"> <templateId root="216.840.1.918528.10..4.2" /> <id nullFlavor="NA" /> <code codeSystem="local" code="AEOSR" displayName="Absolute Eosinophils" /> <statusCode code="completed" /> <effectiveTime value="094035240170" /> <value unit="10*3/uL" xsi:type="PQ" value="0.03" /> <referenceRange> < observationRange> <text>0.00-0.50</text> </ observationRange> </referenceRange> </observation> </ component> <component> <observation moodCode="EVN" classCode="OBS"> <templateId root="216.840.1.711757.10...4.2" /> <id nullFlavor="NA" /> <code codeSystem="local" code="ALYMR" displayName= "Absolute Lymphocytes" /> <statusCode code="completed" /> < effectiveTime value="637435286967" /> <value unit="10*3/uL" xsi:type= "PQ" value="2.39" /> <referenceRange> <observationRange> <text>0.80-3.30</text> </observationRange> </ referenceRange> </observation> </component> <component> <observation moodCode="EVN" classCode="OBS"> <templateId root= "216.840.1.379677.02.09.22.4.2" /> <id nullFlavor="NA" /> < code codeSystem="local" code="AMONR" displayName="Absolute Monocytes" /> <statusCode code="completed" /> <effectiveTime value="054485103824" /> <value unit="10*3/uL" xsi:type="PQ" value="0.49" /> < referenceRange> <observationRange> <text>0.30-1.00</text > </observationRange> </referenceRange> </observation > </component> <component> <observation moodCode="EVN" classCode="OBS"> <templateId root="216.840.1.418748.02.09.224.2" /> <id nullFlavor="NA" /> <code codeSystem="local" code="ASEGR" displayName="Absolute Neutrophils" /> <statusCode code="completed" /> <effectiveTime value="541424025859" /> <value unit="10*3/uL" xsi:type="PQ" value="5.31" /> <referenceRange> < observationRange> <text>1.90-7.00</text> </ observationRange> </referenceRange> </observation> </ component> <component> <observation moodCode="EVN" classCode="OBS"> <templateId root="16.840.1.014132.10.22.4.2" /> <id nullFlavor="NA" /> <code codeSystem="local" code="BASOR" displayName= "Basophils" /> <statusCode code="completed" /> <effectiveTime value="587918861122" /> <value unit="%" xsi:type="PQ" value="0" /> <referenceRange> <observationRange> <text>0-2< /text> </observationRange> </referenceRange> </ observation> </component> <component> <observation moodCode= "EVN" classCode="OBS"> <templateId root="16.840.1.808472.10..22.4.2 " /> <id nullFlavor="NA" /> <code codeSystem="local" code= "EOSR" displayName="Eosinophils" /> <statusCode code="completed" /> <effectiveTime value="475148778210" /> <value unit="%" xsi: type="PQ" value="0" /> <referenceRange> <observationRange> <text>0-4</text> </observationRange> </ referenceRange> </observation> </component> <component> <observation moodCode="EVN" classCode="OBS"> <templateId root= "16.840.1.011324.02.09.22.4.2" /> <id nullFlavor="NA" /> < code codeSystem="local" code="HCT" displayName="HCT" /> <statusCode code="completed" /> <effectiveTime value="674757245144" /> < value unit="%" xsi:type="PQ" value="44.1" /> <referenceRange> <observationRange> <text>37.0-47.0</text> </ observationRange> </referenceRange> </observation> </ component> <component> <observation moodCode="EVN" classCode="OBS"> <templateId root="06.08.840.1.134734.10.20.22.4.2" /> <id nullFlavor="NA" /> <code codeSystem="local" code="HGB" displayName="HGB " /> <statusCode code="completed" /> <effectiveTime value= "922077224863" /> <value unit="g/dL" xsi:type="PQ" value="14.7" /> <referenceRange> <observationRange> <text>12.0- 16.0</text> </observationRange> </referenceRange> </ observation> </component> <component> <observation moodCode= "EVN" classCode="OBS"> <templateId root="216.840.1.194701.10.20.22.4.2 " /> <id nullFlavor="NA" /> <code codeSystem="local" code= "IMGA" displayName="Immature Granulocytes" /> <statusCode code= "completed" /> <effectiveTime value="014876224896" /> <value unit="%" xsi:type="PQ" value="0.4" /> <referenceRange> < observationRange> <text>0.0-1.0</text> </ observationRange> </referenceRange> </observation> </ component> <component> <observation moodCode="EVN" classCode="OBS"> <templateId root="06.08.840.1.108301.10...4.2" /> <id nullFlavor="NA" /> <code codeSystem="local" code="LYMPR" displayName= "Lymphocytes" /> <statusCode code="completed" /> < effectiveTime value="878782373059" /> <value unit="%" xsi:type="PQ " value="29" /> <referenceRange> <observationRange> <text>20-46</text> </observationRange> </ referenceRange> </observation> </component> <component> <observation moodCode="EVN" classCode="OBS"> <templateId root= "06.08.840.1.310459.10.20.22.4.2" /> <id nullFlavor="NA" /> < code codeSystem="local" code="MCH" displayName="MCH" /> <statusCode code="completed" /> <effectiveTime value="890814857795" /> < value unit="pg" xsi:type="PQ" value="34.2" /> <interpretationCode codeSystem="local" code="*" /> <referenceRange> < observationRange> <text>27.0-32.0</text> </ observationRange> </referenceRange> </observation> </ component> <component> <observation moodCode="EVN" classCode="OBS"> <templateId root="216.840.1.107024.10.20.22.4.2" /> <id nullFlavor="NA" /> <code codeSystem="local" code="MCHC" displayName= "MCHC" /> <statusCode code="completed" /> <effectiveTime value ="847239556106" /> <value unit="g/dL" xsi:type="PQ" value="33.3" /> <referenceRange> <observationRange> <text>32.0- 36.0</text> </observationRange> </referenceRange> </ observation> </component> <component> <observation moodCode= "EVN" classCode="OBS"> <templateId root="216.840.1.136807.10.20.22.4.2 " /> <id nullFlavor="NA" /> <code codeSystem="local" code="MCV " displayName="MCV" /> <statusCode code="completed" /> < effectiveTime value="529028248528" /> <value unit="fL" xsi:type="PQ" value="102.6" /> <interpretationCode codeSystem="local" code="*" /> <referenceRange> <observationRange> <text>82.0- 99.0</text> </observationRange> </referenceRange> </ observation> </component> <component> <observation moodCode= "EVN" classCode="OBS"> <templateId root="216.840.1.061473.10.20.22.4.2 " /> <id nullFlavor="NA" /> <code codeSystem="local" code= "MONOR" displayName="Monocytes" /> <statusCode code="completed" /> <effectiveTime value="477586098779" /> <value unit="%" xsi: type="PQ" value="6" /> <referenceRange> <observationRange> <text>4-11</text> </observationRange> </ referenceRange> </observation> </component> <component> <observation moodCode="EVN" classCode="OBS"> <templateId root= "16.840.1.002017.10..22.4.2" /> <id nullFlavor="NA" /> < code codeSystem="local" code="MPV" displayName="MPV" /> <statusCode code="completed" /> <effectiveTime value="025411576229" /> < value unit="fL" xsi:type="PQ" value="9.2" /> <interpretationCode codeSystem="local" code="*" /> <referenceRange> < observationRange> <text>9.4-12.4</text> </ observationRange> </referenceRange> </observation> </ component> <component> <observation moodCode="EVN" classCode="OBS"> <templateId root="16.840.1.819310.10.20.22.4.2" /> <id nullFlavor="NA" /> <code codeSystem="local" code="SEGR" displayName= "Neutrophils" /> <statusCode code="completed" /> < effectiveTime value="209265916656" /> <value unit="%" xsi:type="PQ " value="64" /> <referenceRange> <observationRange> <text>51-75</text> </observationRange> </ referenceRange> </observation> </component> <component> <observation moodCode="EVN" classCode="OBS"> <templateId root= "216.840.1.919328.10.4.2" /> <id nullFlavor="NA" /> < code codeSystem="local" code="NRBCA" displayName="Nucleated RBC Automated" /> <statusCode code="completed" /> <effectiveTime value= "283753971990" /> <value unit="/100WBC" xsi:type="PQ" value="0.0" /> <referenceRange> <observationRange> <text /> </observationRange> </referenceRange> </observation> </component> <component> <observation moodCode="EVN" classCode= "OBS"> <templateId root="06.08.840.1.307214.02.09.22.4.2" /> < id nullFlavor="NA" /> <code codeSystem="local" code="PLT" displayName= "Platelet Count" /> <statusCode code="completed" /> < effectiveTime value="" /> <value unit="K/uL" xsi:type="PQ" value="290" /> <referenceRange> <observationRange> <text>150-400</text> </observationRange> </ referenceRange> </observation> </component> <component> <observation moodCode="EVN" classCode="OBS"> <templateId root= "06.08.840.1.577204.10.4.2" /> <id nullFlavor="NA" /> < code codeSystem="local" code="RBC" displayName="RBC" /> <statusCode code="completed" /> <effectiveTime value="211605931286" /> < value unit="10*6/uL" xsi:type="PQ" value="4.30" /> <referenceRange> <observationRange> <text>4.00-5.20</text> </ observationRange> </referenceRange> </observation> </ component> <component> <observation moodCode="EVN" classCode="OBS"> <templateId root="216.840.1.963522.10..22.4.2" /> <id nullFlavor="NA" /> <code codeSystem="local" code="RDW" displayName="RDW " /> <statusCode code="completed" /> <effectiveTime value= "555598042054" /> <value unit="%" xsi:type="PQ" value="12.7" /> <referenceRange> <observationRange> <text>11.5- 14.5</text> </observationRange> </referenceRange> </ observation> </component> <component> <observation moodCode= "EVN" classCode="OBS"> <templateId root="16.840.1.480694.10..22.4.2 " /> <id nullFlavor="NA" /> <code codeSystem="local" code= "WBCIR" displayName="WBC" /> <statusCode code="completed" /> < effectiveTime value="370179262424" /> <value unit="K/uL" xsi:type="PQ" value="8.3" /> <referenceRange> <observationRange> <text>4.8-10.8</text> </observationRange> </ referenceRange> </observation> </component> </organizer> </entry > <entry> <organizer moodCode="EVN" classCode="BATTERY"> <templateId root="16.840.1.827688.10.20.22.4.1" /> <id nullFlavor="NA" /> <code codeSystem="local" code="CMP" displayName="Comprehensive Metabolic Panel (CMP)" /> <statusCode code="completed" /> <component> <observation moodCode="EVN" classCode="OBS"> <templateId root= "06.08.840.1.330211.10..22.4.2" /> <id nullFlavor="NA" /> < code codeSystem="local" code="ALB" displayName="Albumin" /> < statusCode code="completed" /> <effectiveTime value="176976676088" /> <value unit="g/dL" xsi:type="PQ" value="4.9" /> < interpretationCode codeSystem="local" code="*" /> <referenceRange> <observationRange> <text>3.5-4.8</text> </ observationRange> </referenceRange> </observation> </ component> <component> <observation moodCode="EVN" classCode="OBS"> <templateId root="840.1.600563.10..4.2" /> <id nullFlavor="NA" /> <code codeSystem="local" code="ALP" displayName= "Alkaline Phosphatase" /> <statusCode code="completed" /> < effectiveTime value="926374298884" /> <value unit="U/L" xsi:type="PQ" value="59" /> <referenceRange> <observationRange> <text>26-104</text> </observationRange> </referenceRange > </observation> </component> <component> <observation moodCode="EVN" classCode="OBS"> <templateId root= "06.08.840.1.174899.10..22.4.2" /> <id nullFlavor="NA" /> < code codeSystem="local" code="ALT" displayName="ALT (SGPT)" /> < statusCode code="completed" /> <effectiveTime value="542740459496" /> <value unit="U/L" xsi:type="PQ" value="12" /> < interpretationCode codeSystem="local" code="*" /> <referenceRange> <observationRange> <text>14-54</text> </ observationRange> </referenceRange> </observation> </ component> <component> <observation moodCode="EVN" classCode="OBS"> <templateId root="16.840.1.124876.10..22.4.2" /> <id nullFlavor="NA" /> <code codeSystem="local" code="AGAP" displayName= "Anion Gap" /> <statusCode code="completed" /> <effectiveTime value="156445501836" /> <value unit="NA" xsi:type="PQ" value="10" /> <referenceRange> <observationRange> <text>3-20</ text> </observationRange> </referenceRange> </ observation> </component> <component> <observation moodCode= "EVN" classCode="OBS"> <templateId root="06.08.840.1.229854.10...4.2 " /> <id nullFlavor="NA" /> <code codeSystem="local" code="AST " displayName="AST (SGOT)" /> <statusCode code="completed" /> <effectiveTime value="081174330010" /> <value unit="U/L" xsi:type="PQ" value="17" /> <referenceRange> <observationRange> <text>15-41</text> </observationRange> </referenceRange > </observation> </component> <component> <observation moodCode="EVN" classCode="OBS"> <templateId root= "06.08.840.1.534560..4.2" /> <id nullFlavor="NA" /> < code codeSystem="local" code="BILIT" displayName="Bilirubin Total" /> < statusCode code="completed" /> <effectiveTime value="214192759750" /> <value unit="mg/dL" xsi:type="PQ" value="0.4" /> < referenceRange> <observationRange> <text>0.2-1.2</text> </observationRange> </referenceRange> </observation > </component> <component> <observation moodCode="EVN" classCode="OBS"> <templateId root="216.840.1.106604.02.09.22.4.2" /> <id nullFlavor="NA" /> <code codeSystem="local" code="BUN" displayName="BUN" /> <statusCode code="completed" /> < effectiveTime value="905799710910" /> <value unit="mg/dL" xsi:type="PQ " value="7" /> <referenceRange> <observationRange> <text>4-20</text> </observationRange> </referenceRange > </observation> </component> <component> <observation moodCode="EVN" classCode="OBS"> <templateId root= "2.16.840.1.768118.02.09.22.4.2" /> <id nullFlavor="NA" /> < code codeSystem="local" code="CA" displayName="Calcium" /> <statusCode code="completed" /> <effectiveTime value="676194638395" /> < value unit="mg/dL" xsi:type="PQ" value="9.5" /> <referenceRange> <observationRange> <text>8.6-10.0</text> </ observationRange> </referenceRange> </observation> </ component> <component> <observation moodCode="EVN" classCode="OBS"> <templateId root="16.840.1.355466.10.20.22.4.2" /> <id nullFlavor="NA" /> <code codeSystem="local" code="CL" displayName= "Chloride" /> <statusCode code="completed" /> <effectiveTime value="139832824316" /> <value unit="mEq/L" xsi:type="PQ" value="102" / > <referenceRange> <observationRange> <text>99- 109</text> </observationRange> </referenceRange> </ observation> </component> <component> <observation moodCode= "EVN" classCode="OBS"> <templateId root="16.840.1.348755.10.22.4.2 " /> <id nullFlavor="NA" /> <code codeSystem="local" code="CO2 " displayName="CO2" /> <statusCode code="completed" /> < effectiveTime value="059386107997" /> <value unit="mEq/L" xsi:type="PQ " value="24" /> <referenceRange> <observationRange> <text>22-32</text> </observationRange> </ referenceRange> </observation> </component> <component> <observation moodCode="EVN" classCode="OBS"> <templateId root= "06.08.840.1.999927.10.2022.4.2" /> <id nullFlavor="NA" /> < code codeSystem="local" code="CREAT" displayName="Creatinine" /> < statusCode code="completed" /> <effectiveTime value="009758938846" /> <value unit="mg/dL" xsi:type="PQ" value="0.61" /> < referenceRange> <observationRange> <text>0.44-1.03</text > </observationRange> </referenceRange> </observation > </component> <component> <observation moodCode="EVN" classCode="OBS"> <templateId root="16.840.1.645987.10.22.4.2" /> <id nullFlavor="NA" /> <code codeSystem="local" code="GLOB" displayName="Globulin" /> <statusCode code="completed" /> < effectiveTime value="" /> <value unit="g/dL" xsi:type="PQ" value="2.9" /> <referenceRange> <observationRange> <text>1.9-4.3</text> </observationRange> </ referenceRange> </observation> </component> <component> <observation moodCode="EVN" classCode="OBS"> <templateId root= "06.08.840.1.069534.22.4.2" /> <id nullFlavor="NA" /> < code codeSystem="local" code="GLU" displayName="Glucose" /> < statusCode code="completed" /> <effectiveTime value="" /> <value unit="mg/dL" xsi:type="PQ" value="114" /> < interpretationCode codeSystem="local" code="*" /> <referenceRange> <observationRange> <text>70-100</text> </ observationRange> </referenceRange> </observation> </ component> <component> <observation moodCode="EVN" classCode="OBS"> <templateId root="06.08.840.1.032395..22.4.2" /> <id nullFlavor="NA" /> <code codeSystem="local" code="K" displayName= "Potassium" /> <statusCode code="completed" /> <effectiveTime value="867947013173" /> <value unit="mEq/L" xsi:type="PQ" value="3.6" / > <referenceRange> <observationRange> <text>3.6 -5.1</text> </observationRange> </referenceRange> </ observation> </component> <component> <observation moodCode= "EVN" classCode="OBS"> <templateId root="16.840.1.027908.10..22.4.2 " /> <id nullFlavor="NA" /> <code codeSystem="local" code="TP " displayName="Protein" /> <statusCode code="completed" /> < effectiveTime value="953330260993" /> <value unit="g/dL" xsi:type="PQ" value="7.8" /> <referenceRange> <observationRange> <text>6.1-7.9</text> </observationRange> </ referenceRange> </observation> </component> <component> <observation moodCode="EVN" classCode="OBS"> <templateId root= "06.08.840.1.267509.10..4.2" /> <id nullFlavor="NA" /> < code codeSystem="local" code="NA" displayName="Sodium" /> <statusCode code="completed" /> <effectiveTime value="096898959441" /> < value unit="mEq/L" xsi:type="PQ" value="136" /> <referenceRange> <observationRange> <text>136-144</text> </ observationRange> </referenceRange> </observation> </ component> </organizer> </entry> <entry> <organizer moodCode="EVN" classCode="BATTERY"> <templateId root="06.08.840.1.843065.10..22.4.1" /> <id nullFlavor="NA" /> <code codeSystem="local" code="GFR" displayName ="eGFR" /> <statusCode code="completed" /> <component> < observation moodCode="EVN" classCode="OBS"> <templateId root= "216.840.1.374144.10..22.4.2" /> <id nullFlavor="NA" /> < code codeSystem="local" code="GFR" displayName="eGFR" /> <statusCode code="completed" /> <effectiveTime value="736982092470" /> < value unit="NA" xsi:type="PQ" value=">60" /> <referenceRange> <observationRange> <text>>60</text> </ observationRange> </referenceRange> </observation> </ component> </organizer> </entry> <entry> <organizer moodCode="EVN" classCode="BATTERY"> <templateId root="16.840.1.200233.10..22.4.1" /> <id nullFlavor="NA" /> <code codeSystem="local" code="TROP" displayName="Troponin" /> <statusCode code="completed" /> <component> <observation moodCode="EVN" classCode="OBS"> <templateId root= "216.840.1.739222.10..22.4.2" /> <id nullFlavor="NA" /> < code codeSystem="local" code="TROP" displayName="Troponin" /> < statusCode code="completed" /> <effectiveTime value="351628009008" /> <value unit="ng/mL" xsi:type="PQ" value="<0.05" /> < referenceRange> <observationRange> <text><0.06</text > </observationRange> </referenceRange> </observation > </component> </organizer> </entry> <entry> <organizer moodCode= "EVN" classCode="BATTERY"> <templateId root="06.08.840.1.577313.10..4.1 " /> <id nullFlavor="NA" /> <code codeSystem="local" code="TSHR" displayName="TSH with Reflex Free T4" /> <statusCode code="completed" /> <component> <observation moodCode="EVN" classCode="OBS"> < templateId root="06.08.840.1.473087...4.2" /> <id nullFlavor="NA " /> <code codeSystem="local" code="TSHR" displayName="TSH with Reflex Free T4" /> <statusCode code="completed" /> <effectiveTime value="078262947303" /> <value unit="uIU/mL" xsi:type="PQ" value="1.50 " /> <referenceRange> <observationRange> <text> 0.35-5.50</text> </observationRange> </referenceRange> </observation> </component> </organizer> </entry> <entry> < organizer moodCode="EVN" classCode="BATTERY"> <templateId root= "06.08.840.1.970200.10..4.1" /> <id nullFlavor="NA" /> <code codeSystem="local" code="PREGN" displayName=" Screen, Urine NPT" /> <statusCode code="completed" /> <component> <observation moodCode ="EVN" classCode="OBS"> <templateId root= "06.08.840.1.655151.10..4.2" /> <id nullFlavor="NA" /> < code codeSystem="local" code="PREGN" displayName=" Screen, Urine NPT" / > <statusCode code="completed" /> <effectiveTime value= "263430974722" /> <value unit="NA" xsi:type="PQ" value="Negative" /> <referenceRange> <observationRange> <text /> </observationRange> </referenceRange> </observation> </component> </organizer> </entry> <entry> <organizer moodCode="EVN " classCode="BATTERY"> <templateId root="06.08.840.1.519997.10.4.1" / > <id nullFlavor="NA" /> <code codeSystem="local" code="CBCD" displayName="CBC W/DIFF" /> <statusCode code="completed" /> <component > <observation moodCode="EVN" classCode="OBS"> <templateId root= "16.840.1.952437.02.09.22.4.2" /> <id nullFlavor="NA" /> < code codeSystem="local" code="EO#" displayName="EOSINOPHIL #" /> < statusCode code="completed" /> <effectiveTime value="303354658039" /> <value unit="k/cumm" xsi:type="PQ" value="0.1" /> < referenceRange> <observationRange> <text>0.1-0.5</text> </observationRange> </referenceRange> </observation > </component> <component> <observation moodCode="EVN" classCode="OBS"> <templateId root="06.08.840.1.065335.10.4.2" /> <id nullFlavor="NA" /> <code codeSystem="local" code="EO% " displayName="EOSINOPHIL %" /> <statusCode code="completed" /> <effectiveTime value="284152183478" /> <value unit="%" xsi: type="PQ" value="1" /> <interpretationCode codeSystem="local" code="*" /> <referenceRange> <observationRange> <text>2- 4</text> </observationRange> </referenceRange> </ observation> </component> <component> <observation moodCode= "EVN" classCode="OBS"> <templateId root="216.840.1.845709.10...4.2 " /> <id nullFlavor="NA" /> <code codeSystem="local" code="GR# " displayName="GRANULOCYTE #" /> <statusCode code="completed" /> <effectiveTime value="795456316685" /> <value unit="k/cumm" xsi: type="PQ" value="3.5" /> <referenceRange> <observationRange > <text>2.0-9.0</text> </observationRange> </ referenceRange> </observation> </component> <component> <observation moodCode="EVN" classCode="OBS"> <templateId root= "16.840.1.515213...4.2" /> <id nullFlavor="NA" /> < code codeSystem="local" code="GR%" displayName="GRANULOCYTE %" /> <statusCode code="completed" /> <effectiveTime value="661761605234 " /> <value unit="%" xsi:type="PQ" value="47" /> < interpretationCode codeSystem="local" code="*" /> <referenceRange> <observationRange> <text>50-75</text> </ observationRange> </referenceRange> </observation> </ component> <component> <observation moodCode="EVN" classCode="OBS"> <templateId root="16.840.1.939621...4.2" /> <id nullFlavor="NA" /> <code codeSystem="local" code="LY#" displayName= "LYMPHOCYTE #" /> <statusCode code="completed" /> < effectiveTime value="" /> <value unit="k/cumm" xsi:type="PQ " value="3.1" /> <referenceRange> <observationRange> <text>1.0-4.0</text> </observationRange> </ referenceRange> </observation> </component> <component> <observation moodCode="EVN" classCode="OBS"> <templateId root= "2.16.840.1.453593.10.4.2" /> <id nullFlavor="NA" /> < code codeSystem="local" code="LY%" displayName="LYMPHOCYTE %" /> <statusCode code="completed" /> <effectiveTime value="" /> <value unit="%" xsi:type="PQ" value="42" /> < interpretationCode codeSystem="local" code="*" /> <referenceRange> <observationRange> <text>20-30</text> </ observationRange> </referenceRange> </observation> </ component> <component> <observation moodCode="EVN" classCode="OBS"> <templateId root="216.840.1.861170.10.4.2" /> <id nullFlavor="NA" /> <code codeSystem="local" code="MCH" displayName= "MEAN CELL HGB" /> <statusCode code="completed" /> < effectiveTime value="" /> <value unit="pg" xsi:type="PQ" value="33.8" /> <interpretationCode codeSystem="local" code="*" /> <referenceRange> <observationRange> <text>27.0- 33.0</text> </observationRange> </referenceRange> </ observation> </component> <component> <observation moodCode= "EVN" classCode="OBS"> <templateId root="06.08.840.1.253658.10.22.4.2 " /> <id nullFlavor="NA" /> <code codeSystem="local" code= "MCHC" displayName="MEAN CELL HGB CONCENTRATION" /> <statusCode code= "completed" /> <effectiveTime value="680243338002" /> <value unit="g/dL" xsi:type="PQ" value="32.8" /> <referenceRange> < observationRange> <text>32.0-37.0</text> </ observationRange> </referenceRange> </observation> </ component> <component> <observation moodCode="EVN" classCode="OBS"> <templateId root="06.08.840.1.140200.02.09.224.2" /> <id nullFlavor="NA" /> <code codeSystem="local" code="MCV" displayName= "MEAN CELL VOLUME" /> <statusCode code="completed" /> < effectiveTime value="357961450822" /> <value unit="fl" xsi:type="PQ" value="103.0" /> <interpretationCode codeSystem="local" code="*" /> <referenceRange> <observationRange> <text>80.0- 100.0</text> </observationRange> </referenceRange> </ observation> </component> <component> <observation moodCode= "EVN" classCode="OBS"> <templateId root="06.08.840.1.274545.02.09.22.4.2 " /> <id nullFlavor="NA" /> <code codeSystem="local" code="MO# " displayName="MONOCYTE #" /> <statusCode code="completed" /> <effectiveTime value="229359797232" /> <value unit="k/cumm" xsi:type= "PQ" value="0.7" /> <referenceRange> <observationRange> <text>0.1-1.0</text> </observationRange> </ referenceRange> </observation> </component> <component> <observation moodCode="EVN" classCode="OBS"> <templateId root= "216.840.1.252886.10..22.4.2" /> <id nullFlavor="NA" /> < code codeSystem="local" code="MO%" displayName="MONOCYTE %" /> <statusCode code="completed" /> <effectiveTime value="577972034763" /> <value unit="%" xsi:type="PQ" value="10" /> < interpretationCode codeSystem="local" code="*" /> <referenceRange> <observationRange> <text>4-6</text> </ observationRange> </referenceRange> </observation> </ component> <component> <observation moodCode="EVN" classCode="OBS"> <templateId root="216.840.1.003130.10..22.4.2" /> <id nullFlavor="NA" /> <code codeSystem="local" code="RBC" displayName=" RED BLOOD CELL" /> <statusCode code="completed" /> < effectiveTime value="458232561208" /> <value unit="m/cumm" xsi:type="PQ " value="3.61" /> <interpretationCode codeSystem="local" code="*" /> <referenceRange> <observationRange> <text>4.00- 6.00</text> </observationRange> </referenceRange> </ observation> </component> <component> <observation moodCode= "EVN" classCode="OBS"> <templateId root="16.840.1.536813.10.20.22.4.2 " /> <id nullFlavor="NA" /> <code codeSystem="local" code="RDW " displayName="RED CELL DISTRIBUTION WIDTH" /> <statusCode code= "completed" /> <effectiveTime value="" /> <value unit="%" xsi:type="PQ" value="11.9" /> <referenceRange> <observationRange> <text>11.0-15.6</text> </ observationRange> </referenceRange> </observation> </ component> <component> <observation moodCode="EVN" classCode="OBS"> <templateId root="06.08.840.1.719191..22.4.2" /> <id nullFlavor="NA" /> <code codeSystem="local" code="WBC" displayName= "WHITE BLOOD CELL" /> <statusCode code="completed" /> < effectiveTime value="" /> <value unit="k/cumm" xsi:type="PQ " value="7.5" /> <referenceRange> <observationRange> <text>5.0-10.0</text> </observationRange> </ referenceRange> </observation> </component> <component> <observation moodCode="EVN" classCode="OBS"> <templateId root= "06.08.840.1.553363.10.20.22.4.2" /> <id nullFlavor="NA" /> < code codeSystem="local" code="HGBT" displayName="HEMOGLOBIN" /> < statusCode code="completed" /> <effectiveTime value="" /> <value unit="gm/dL" xsi:type="PQ" value="12.2" /> < referenceRange> <observationRange> <text>12.0-16.0</text > </observationRange> </referenceRange> </observation > </component> <component> <observation moodCode="EVN" classCode="OBS"> <templateId root="216.840.1.521124.10..22.4.2" /> <id nullFlavor="NA" /> <code codeSystem="local" code="HCTT" displayName="HEMATOCRIT" /> <statusCode code="completed" /> < effectiveTime value="604381888029" /> <value unit="%" xsi:type="PQ " value="37.2" /> <referenceRange> <observationRange> <text>37.0-47.0</text> </observationRange> </ referenceRange> </observation> </component> <component> <observation moodCode="EVN" classCode="OBS"> <templateId root= "06.08.840.1.266894.10...4.2" /> <id nullFlavor="NA" /> < code codeSystem="local" code="PLT" displayName="PLATELET COUNT" /> < statusCode code="completed" /> <effectiveTime value="921962692474" /> <value unit="k/cumm" xsi:type="PQ" value="299" /> < referenceRange> <observationRange> <text>150-450</text> </observationRange> </referenceRange> </observation > </component> </organizer> </entry> <entry> <organizer moodCode= "EVN" classCode="BATTERY"> <templateId root="16.840.1.186799.10..22.4.1 " /> <id nullFlavor="NA" /> <code codeSystem="local" code="iCHEM8" displayName="CHEM/HEM PROFILE-BEDSIDE" /> <statusCode code="completed" /> <component> <observation moodCode="EVN" classCode="OBS"> < templateId root="16.840.1.440971.02.09.22.4.2" /> <id nullFlavor="NA " /> <code codeSystem="local" code="K" displayName="POTASSIUM" /> <statusCode code="completed" /> <effectiveTime value=" " /> <value unit="mmol/L" xsi:type="PQ" value="3.8" /> < referenceRange> <observationRange> <text>3.5-5.3</text> </observationRange> </referenceRange> </observation > </component> <component> <observation moodCode="EVN" classCode="OBS"> <templateId root="16.840.1.862321.02.09.22.4.2" /> <id nullFlavor="NA" /> <code codeSystem="local" code="CMETHOD " displayName="METHOD" /> <statusCode code="completed" /> < effectiveTime value="" /> <value unit="" xsi:type="PQ" value="Bedside" /> <referenceRange> <observationRange> <text /> </observationRange> </referenceRange> </observation> </component> <component> <observation moodCode="EVN" classCode="OBS"> <templateId root= "16.840.1.521095.10.4.2" /> <id nullFlavor="NA" /> < code codeSystem="local" code="GAP" displayName="ANION GAP" /> < statusCode code="completed" /> <effectiveTime value="" /> <value unit="mmol/L" xsi:type="PQ" value="19" /> < referenceRange> <observationRange> <text>10-20</text> </observationRange> </referenceRange> </observation> </component> <component> <observation moodCode="EVN" classCode= "OBS"> <templateId root="216.840.1.623139.10..4.2" /> < id nullFlavor="NA" /> <code codeSystem="local" code="HMETHOD" displayName="METHOD" /> <statusCode code="completed" /> < effectiveTime value="" /> <value unit="" xsi:type="PQ" value="Bedside" /> <referenceRange> <observationRange> <text /> </observationRange> </referenceRange> </observation> </component> <component> <observation moodCode="EVN" classCode="OBS"> <templateId root= "06.08.840.1.213341.02.09.22.4.2" /> <id nullFlavor="NA" /> < code codeSystem="local" code="GLU" displayName="GLUCOSE" /> < statusCode code="completed" /> <effectiveTime value="" /> <value unit="mg/dL" xsi:type="PQ" value="110" /> < interpretationCode codeSystem="local" code="*" /> <referenceRange> <observationRange> <text>70-99</text> </ observationRange> </referenceRange> </observation> </ component> <component> <observation moodCode="EVN" classCode="OBS"> <templateId root="06.08.840.1.929841.02.09.22.4.2" /> <id nullFlavor="NA" /> <code codeSystem="local" code="BUN" displayName= "BLOOD UREA NITROGEN" /> <statusCode code="completed" /> < effectiveTime value="" /> <value unit="mg/dL" xsi:type="PQ " value="14" /> <referenceRange> <observationRange> <text>7-20</text> </observationRange> </referenceRange > </observation> </component> <component> <observation moodCode="EVN" classCode="OBS"> <templateId root= "216.840.1.143119.10..22.4.2" /> <id nullFlavor="NA" /> < code codeSystem="local" code="CREAT" displayName="CREATININE" /> < statusCode code="completed" /> <effectiveTime value="721195808620" /> <value unit="mg/dL" xsi:type="PQ" value="0.7" /> < referenceRange> <observationRange> <text>0.6-1.0</text> </observationRange> </referenceRange> </observation > </component> <component> <observation moodCode="EVN" classCode="OBS"> <templateId root="16.840.1.957310.10..4.2" /> <id nullFlavor="NA" /> <code codeSystem="local" code="HGBT" displayName="HEMOGLOBIN" /> <statusCode code="completed" /> < effectiveTime value="047935782912" /> <value unit="gm/dL" xsi:type="PQ " value="12.6" /> <referenceRange> <observationRange> <text>12.0-16.0</text> </observationRange> </ referenceRange> </observation> </component> <component> <observation moodCode="EVN" classCode="OBS"> <templateId root= "16.840.1.296721.10..22.4.2" /> <id nullFlavor="NA" /> < code codeSystem="local" code="HCTT" displayName="HEMATOCRIT" /> < statusCode code="completed" /> <effectiveTime value="673246473757" /> <value unit="%" xsi:type="PQ" value="37.0" /> < referenceRange> <observationRange> <text>37.0-47.0</text > </observationRange> </referenceRange> </observation > </component> <component> <observation moodCode="EVN" classCode="OBS"> <templateId root="216.840.1.996707.10.20.22.4.2" /> <id nullFlavor="NA" /> <code codeSystem="local" code="NA" displayName="SODIUM" /> <statusCode code="completed" /> < effectiveTime value="" /> <value unit="mmol/L" xsi:type="PQ " value="143" /> <referenceRange> <observationRange> <text>135-148</text> </observationRange> </ referenceRange> </observation> </component> <component> <observation moodCode="EVN" classCode="OBS"> <templateId root= "16.840.1.874227.10.20.22.4.2" /> <id nullFlavor="NA" /> < code codeSystem="local" code="CL" displayName="CHLORIDE" /> < statusCode code="completed" /> <effectiveTime value="090936710141" /> <value unit="mmol/L" xsi:type="PQ" value="104" /> < referenceRange> <observationRange> <text>98-110</text> </observationRange> </referenceRange> </observation> </component> <component> <observation moodCode="EVN" classCode ="OBS"> <templateId root="06.08.840.1.611525.22.4.2" /> < id nullFlavor="NA" /> <code codeSystem="local" code="CO2" displayName= "CARBON DIOXIDE" /> <statusCode code="completed" /> < effectiveTime value="083282108587" /> <value unit="mmol/L" xsi:type="PQ " value="25" /> <referenceRange> <observationRange> <text>21-32</text> </observationRange> </ referenceRange> </observation> </component> <component> <observation moodCode="EVN" classCode="OBS"> <templateId root= "06.08.840.1.833482.02.09.22.4.2" /> <id nullFlavor="NA" /> < code codeSystem="local" code="CAION" displayName="CALCIUM IONIZED" /> < statusCode code="completed" /> <effectiveTime value="821659065981" /> <value unit="mg/dL" xsi:type="PQ" value="4.8" /> < referenceRange> <observationRange> <text>4.5-5.3</text> </observationRange> </referenceRange> </observation > </component> </organizer> </entry> <entry> <organizer moodCode= "EVN" classCode="BATTERY"> <templateId root="06.08.840.1.570359.02.09.22.4.1 " /> <id nullFlavor="NA" /> <code codeSystem="local" code="PREGU" displayName="UR TEST" /> <statusCode code="completed" /> < component> <observation moodCode="EVN" classCode="OBS"> < templateId root="06.08.840.1.479927.02.09.22.4.2" /> <id nullFlavor="NA " /> <code codeSystem="local" code="PREGU" displayName="UR TEST" /> <statusCode code="completed" /> <effectiveTime value= "399760415159" /> <value unit="" xsi:type="PQ" value="NEGATIVE" /> <referenceRange> <observationRange> <text>NEGATIVE </text> </observationRange> </referenceRange> </ observation> </component> </organizer> </entry> <entry> <organizer moodCode="EVN" classCode="BATTERY"> <templateId root= "216.840.1.967501.10..22.4.1" /> <id nullFlavor="NA" /> <code codeSystem="local" code="UA" displayName="URINALYSIS, ROUTINE" /> < statusCode code="completed" /> <component> <observation moodCode= "EVN" classCode="OBS"> <templateId root="216.840.1.108040.10...4.2 " /> <id nullFlavor="NA" /> <code codeSystem="local" code= "LEUESU" displayName="UA LEUKOCYTE ESTERASE DIPSTICK" /> <statusCode code="completed" /> <effectiveTime value="186086898948" /> < value unit="" xsi:type="PQ" value="1+" /> <referenceRange> < observationRange> <text>NEGATIVE</text> </ observationRange> </referenceRange> </observation> </ component> <component> <observation moodCode="EVN" classCode="OBS"> <templateId root="216.840.1.515005.10...4.2" /> <id nullFlavor="NA" /> <code codeSystem="local" code="NITRIU" displayName= "UA NITRITE DIPSTICK" /> <statusCode code="completed" /> < effectiveTime value="125947058368" /> <value unit="" xsi:type="PQ" value="NEGATIVE" /> <referenceRange> <observationRange> <text>NEGATIVE</text> </observationRange> </ referenceRange> </observation> </component> <component> <observation moodCode="EVN" classCode="OBS"> <templateId root= "06.08.840.1.010569.10..4.2" /> <id nullFlavor="NA" /> < code codeSystem="local" code="PROTEIU" displayName="UA PROTEIN DIPSTICK" /> <statusCode code="completed" /> <effectiveTime value= "233713404318" /> <value unit="" xsi:type="PQ" value="TRACE" /> <referenceRange> <observationRange> <text>NEGATIVE</ text> </observationRange> </referenceRange> </ observation> </component> <component> <observation moodCode= "EVN" classCode="OBS"> <templateId root="840.1.728676.02.09.22.4.2 " /> <id nullFlavor="NA" /> <code codeSystem="local" code= "DGLUU" displayName="UA GLUCOSE DIPSTICK" /> <statusCode code= "completed" /> <effectiveTime value="307548637719" /> <value unit="" xsi:type="PQ" value="NEGATIVE" /> <referenceRange> < observationRange> <text>NEGATIVE</text> </ observationRange> </referenceRange> </observation> </ component> <component> <observation moodCode="EVN" classCode="OBS"> <templateId root="840.1.641856.1022.4.2" /> <id nullFlavor="NA" /> <code codeSystem="local" code="KETONU" displayName= "UA KETONE DIPSTICK" /> <statusCode code="completed" /> < effectiveTime value="228963310498" /> <value unit="" xsi:type="PQ" value="NEGATIVE" /> <referenceRange> <observationRange> <text>NEGATIVE</text> </observationRange> </ referenceRange> </observation> </component> <component> <observation moodCode="EVN" classCode="OBS"> <templateId root= "16.840.1.616291.02.09.22.4.2" /> <id nullFlavor="NA" /> < code codeSystem="local" code="UROBILU" displayName="UA UROBILINOGEN DIPSTICK" / > <statusCode code="completed" /> <effectiveTime value= "176268576081" /> <value unit="" xsi:type="PQ" value="NORMAL" /> <referenceRange> <observationRange> <text>NORMAL</ text> </observationRange> </referenceRange> </ observation> </component> <component> <observation moodCode= "EVN" classCode="OBS"> <templateId root="06.08.840.1.656258.02.09.22.4.2 " /> <id nullFlavor="NA" /> <code codeSystem="local" code= "BILU" displayName="UA BILIRUBIN DIPSTICK" /> <statusCode code= "completed" /> <effectiveTime value="022882217085" /> <value unit="" xsi:type="PQ" value="NEGATIVE" /> <referenceRange> < observationRange> <text>NEGATIVE</text> </ observationRange> </referenceRange> </observation> </ component> <component> <observation moodCode="EVN" classCode="OBS"> <templateId root="06.08.840.1.477641.02.09.22.4.2" /> <id nullFlavor="NA" /> <code codeSystem="local" code="SPENCER" displayName="UA BLOOD DIPSTICK" /> <statusCode code="completed" /> < effectiveTime value="461316556228" /> <value unit="" xsi:type="PQ" value="4+" /> <referenceRange> <observationRange> <text>NEGATIVE</text> </observationRange> </ referenceRange> </observation> </component> <component> <observation moodCode="EVN" classCode="OBS"> <templateId root= "216.840.1.686048.10..22.4.2" /> <id nullFlavor="NA" /> < code codeSystem="local" code="SPGRU" displayName="UA SPECIFIC GRAVITY" /> <statusCode code="completed" /> <effectiveTime value="422624966628 " /> <value unit="" xsi:type="PQ" value="1.015" /> < referenceRange> <observationRange> <text>1.015-1.025</ text> </observationRange> </referenceRange> </ observation> </component> <component> <observation moodCode= "EVN" classCode="OBS"> <templateId root="2.16.840.1.215173.10.20.22.4.2 " /> <id nullFlavor="NA" /> <code codeSystem="local" code="FEROZ " displayName="UR PH" /> <statusCode code="completed" /> < effectiveTime value="549195301390" /> <value unit="" xsi:type="PQ" value="8.0" /> <interpretationCode codeSystem="local" code="*" /> <referenceRange> <observationRange> <text>5.0-7.0</ text> </observationRange> </referenceRange> </ observation> </component> </organizer> </entry> <entry> <organizer moodCode="EVN" classCode="BATTERY"> <templateId root= "216.840.1.178772.10..4.1" /> <id nullFlavor="NA" /> <code codeSystem="local" code="UAMICRO" displayName="UA MICROSCOPIC" /> < statusCode code="completed" /> <component> <observation moodCode= "EVN" classCode="OBS"> <templateId root="06.08.840.1.722790.02.09.22.4.2 " /> <id nullFlavor="NA" /> <code codeSystem="local" code= "AMORPU" displayName="UA AMORPHOUS SEDIMENT" /> <statusCode code= "completed" /> <effectiveTime value="222077916349" /> <value unit="" xsi:type="PQ" value="4+" /> <referenceRange> < observationRange> <text /> </observationRange> </referenceRange> </observation> </component> <component> <observation moodCode="EVN" classCode="OBS"> <templateId root= "06.08.840.1.481188.02.09.22.4.2" /> <id nullFlavor="NA" /> < code codeSystem="local" code="BACU" displayName="UA BACTERIA" /> < statusCode code="completed" /> <effectiveTime value="094085467427" /> <value unit="" xsi:type="PQ" value="2+" /> <referenceRange> <observationRange> <text>NEGATIVE</text> </ observationRange> </referenceRange> </observation> </ component> <component> <observation moodCode="EVN" classCode="OBS"> <templateId root="16.840.1.021061...4.2" /> <id nullFlavor="NA" /> <code codeSystem="local" code="EPIU" displayName=" UA EPITHELIAL CELLS" /> <statusCode code="completed" /> < effectiveTime value="777031398429" /> <value unit="epi/hpf" xsi:type= "PQ" value="1+" /> <referenceRange> <observationRange> <text>0 - 1+</text> </observationRange> </ referenceRange> </observation> </component> <component> <observation moodCode="EVN" classCode="OBS"> <templateId root= "840.1.085492.10..22.4.2" /> <id nullFlavor="NA" /> < code codeSystem="local" code="MUCUSU" displayName="UA MUCUS" /> < statusCode code="completed" /> <effectiveTime value="912781892907" /> <value unit="" xsi:type="PQ" value="2+" /> <referenceRange> <observationRange> <text>NEG TO 1+</text> </ observationRange> </referenceRange> </observation> </ component> <component> <observation moodCode="EVN" classCode="OBS"> <templateId root="06.08.840.1.214047.10..22.4.2" /> <id nullFlavor="NA" /> <code codeSystem="local" code="RBCU" displayName=" UA RBC" /> <statusCode code="completed" /> <effectiveTime value="344936912987" /> <value unit="rbc/hpf" xsi:type="PQ" value="0-3 " /> <referenceRange> <observationRange> <text> 0 - 3</text> </observationRange> </referenceRange> </ observation> </component> <component> <observation moodCode= "EVN" classCode="OBS"> <templateId root="06.08.830.1.733728.22.4.2 " /> <id nullFlavor="NA" /> <code codeSystem="local" code= "UAVOL" displayName="UA VOLUME FOR EXAM" /> <statusCode code="completed " /> <effectiveTime value="022566100364" /> <value unit="mL" xsi:type="PQ" value="12.0" /> <referenceRange> < observationRange> <text>(12mL STD)</text> </ observationRange> </referenceRange> </observation> </ component> <component> <observation moodCode="EVN" classCode="OBS"> <templateId root="06.08.840.1.962435.02.09.22.4.2" /> <id nullFlavor="NA" /> <code codeSystem="local" code="WBCU" displayName=" UA WBC" /> <statusCode code="completed" /> <effectiveTime value="593198873885" /> <value unit="wbc/hpf" xsi:type="PQ" value="5-10 " /> <referenceRange> <observationRange> <text> 0 - 5</text> </observationRange> </referenceRange> </ observation> </component> </organizer> </entry> <entry> <organizer moodCode="EVN" classCode="BATTERY"> <templateId root= "06.08.840.1.623803.02.09.22.4.1" /> <id nullFlavor="NA" /> <code codeSystem="local" code="DRUGAB" displayName="UR DRUGS OF ABUSE SCREEN" /> <statusCode code="completed" /> <component> <observation moodCode= "EVN" classCode="OBS"> <templateId root="06.08.840.1.783151.22.4.2 " /> <id nullFlavor="NA" /> <code codeSystem="local" code= "AMPHU" displayName="UR AMPHETAMINES SCREEN" /> <statusCode code= "completed" /> <effectiveTime value="" /> <value unit="" xsi:type="PQ" value="NEG (<1000 ng/mL)" /> <referenceRange > <observationRange> <text>NEGATIVE</text> </ observationRange> </referenceRange> </observation> </ component> <component> <observation moodCode="EVN" classCode="OBS"> <templateId root="2.16.840.1.240502.10..22.4.2" /> <id nullFlavor="NA" /> <code codeSystem="local" code="BARBU" displayName= "UR BARBITURATE SCREEN" /> <statusCode code="completed" /> < effectiveTime value="" /> <value unit="" xsi:type="PQ" value="NEG (< 200 ng/mL)" /> <referenceRange> < observationRange> <text>NEGATIVE</text> </ observationRange> </referenceRange> </observation> </ component> <component> <observation moodCode="EVN" classCode="OBS"> <templateId root="2.16.840.1.551425.10..22.4.2" /> <id nullFlavor="NA" /> <code codeSystem="local" code="DAUCOMMENT" displayName="DRUGS OF ABUSE SCREEN COMMENT" /> <statusCode code= "completed" /> <effectiveTime value="" /> <value unit="" xsi:type="PQ" value="" /> <referenceRange> < observationRange> <text /> </observationRange> </referenceRange> </observation> </component> <component> <observation moodCode="EVN" classCode="OBS"> <templateId root= "2.16.840.1.925886.10.20.22.4.2" /> <id nullFlavor="NA" /> < code codeSystem="local" code="OPIU" displayName="UR OPIATES SCREEN" /> <statusCode code="completed" /> <effectiveTime value="" /> <value unit="" xsi:type="PQ" value="NEG (< 300 ng/mL)" /> <referenceRange> <observationRange> <text>NEGATIVE</ text> </observationRange> </referenceRange> </ observation> </component> <component> <observation moodCode= "EVN" classCode="OBS"> <templateId root="216.840.1.614617.10...4.2 " /> <id nullFlavor="NA" /> <code codeSystem="local" code= "PCPU" displayName="UR PHENCYCLIDINE (PCP) SCREEN" /> <statusCode code= "completed" /> <effectiveTime value="" /> <value unit="" xsi:type="PQ" value="NEG (< 25 ng/mL)" /> <referenceRange > <observationRange> <text>NEGATIVE</text> </ observationRange> </referenceRange> </observation> </ component> <component> <observation moodCode="EVN" classCode="OBS"> <templateId root="216.840.1.547364.10..22.4.2" /> <id nullFlavor="NA" /> <code codeSystem="local" code="THCU" displayName=" UR CANNABINOIDS (THC) SCREEN" /> <statusCode code="completed" /> <effectiveTime value="" /> <value unit="" xsi:type="PQ " value="NEG (< 50 ng/mL)" /> <referenceRange> < observationRange> <text>NEGATIVE</text> </ observationRange> </referenceRange> </observation> </ component> <component> <observation moodCode="EVN" classCode="OBS"> <templateId root="216.840.1.801197.10..22.4.2" /> <id nullFlavor="NA" /> <code codeSystem="local" code="COCAU" displayName= "UR COCAINE METABOLITE SCREEN" /> <statusCode code="completed" /> <effectiveTime value="" /> <value unit="" xsi:type="PQ " value="NEG (< 300 ng/mL)" /> <referenceRange> < observationRange> <text>NEGATIVE</text> </ observationRange> </referenceRange> </observation> </ component> <component> <observation moodCode="EVN" classCode="OBS"> <templateId root="16.840.1.467072.10...4.2" /> <id nullFlavor="NA" /> <code codeSystem="local" code="METHU" displayName= "UR METHADONE SCREEN" /> <statusCode code="completed" /> < effectiveTime value="" /> <value unit="" xsi:type="PQ" value="NEG (< 300 ng/mL)" /> <referenceRange> < observationRange> <text>NEGATIVE</text> </ observationRange> </referenceRange> </observation> </ component> <component> <observation moodCode="EVN" classCode="OBS"> <templateId root="16.840.1.710748.10...4.2" /> <id nullFlavor="NA" /> <code codeSystem="local" code="BENZU" displayName= "UR BENZODIAZEPINE SCREEN" /> <statusCode code="completed" /> <effectiveTime value="520851332307" /> <value unit="" xsi:type="PQ" value="NEG (< 200 ng/mL)" /> <referenceRange> < observationRange> <text>NEGATIVE</text> </ observationRange> </referenceRange> </observation> </ component> </organizer> </entry> <entry> <organizer moodCode="EVN" classCode="BATTERY"> <templateId root="216.840.1.860695.10..22.4.1" /> <id nullFlavor="NA" /> <code codeSystem="local" code="UA" displayName= "URINALYSIS, ROUTINE" /> <statusCode code="completed" /> <component> <observation moodCode="EVN" classCode="OBS"> <templateId root= "216.840.1.658623.10...4.2" /> <id nullFlavor="NA" /> < code codeSystem="local" code="LEUESU" displayName="UA LEUKOCYTE ESTERASE DIPSTICK" /> <statusCode code="completed" /> <effectiveTime value="" /> <value unit="" xsi:type="PQ" value="TRACE" /> <referenceRange> <observationRange> <text> NEGATIVE</text> </observationRange> </referenceRange> </observation> </component> <component> <observation moodCode ="EVN" classCode="OBS"> <templateId root= "16.840.1.221512.10..22.4.2" /> <id nullFlavor="NA" /> < code codeSystem="local" code="NITRIU" displayName="UA NITRITE DIPSTICK" /> <statusCode code="completed" /> <effectiveTime value=" " /> <value unit="" xsi:type="PQ" value="NEGATIVE" /> < referenceRange> <observationRange> <text>NEGATIVE</text > </observationRange> </referenceRange> </observation > </component> <component> <observation moodCode="EVN" classCode="OBS"> <templateId root="16.840.1.458736.10..4.2" /> <id nullFlavor="NA" /> <code codeSystem="local" code="PROTEIU " displayName="UA PROTEIN DIPSTICK" /> <statusCode code="completed" /> <effectiveTime value="" /> <value unit="" xsi: type="PQ" value="1+" /> <referenceRange> <observationRange> <text>NEGATIVE</text> </observationRange> </ referenceRange> </observation> </component> <component> <observation moodCode="EVN" classCode="OBS"> <templateId root= "06.08.840.1.961420.10.4.2" /> <id nullFlavor="NA" /> < code codeSystem="local" code="DGLUU" displayName="UA GLUCOSE DIPSTICK" /> <statusCode code="completed" /> <effectiveTime value=" " /> <value unit="" xsi:type="PQ" value="NEGATIVE" /> < referenceRange> <observationRange> <text>NEGATIVE</text > </observationRange> </referenceRange> </observation > </component> <component> <observation moodCode="EVN" classCode="OBS"> <templateId root="06.08.840.1.625600.10..4.2" /> <id nullFlavor="NA" /> <code codeSystem="local" code="KETONU" displayName="UA KETONE DIPSTICK" /> <statusCode code="completed" /> <effectiveTime value="" /> <value unit="" xsi:type= "PQ" value="2+" /> <referenceRange> <observationRange> <text>NEGATIVE</text> </observationRange> </ referenceRange> </observation> </component> <component> <observation moodCode="EVN" classCode="OBS"> <templateId root= "216.840.1.719181.10...4.2" /> <id nullFlavor="NA" /> < code codeSystem="local" code="UROBILU" displayName="UA UROBILINOGEN DIPSTICK" / > <statusCode code="completed" /> <effectiveTime value= "" /> <value unit="" xsi:type="PQ" value="NORMAL" /> <referenceRange> <observationRange> <text>NORMAL</ text> </observationRange> </referenceRange> </ observation> </component> <component> <observation moodCode= "EVN" classCode="OBS"> <templateId root="06.08.840.1.619377.02.09.22.4.2 " /> <id nullFlavor="NA" /> <code codeSystem="local" code= "BILU" displayName="UA BILIRUBIN DIPSTICK" /> <statusCode code= "completed" /> <effectiveTime value="" /> <value unit="" xsi:type="PQ" value="NEGATIVE" /> <referenceRange> < observationRange> <text>NEGATIVE</text> </ observationRange> </referenceRange> </observation> </ component> <component> <observation moodCode="EVN" classCode="OBS"> <templateId root="16.840.1.253815...4.2" /> <id nullFlavor="NA" /> <code codeSystem="local" code="SPENCER" displayName="UA BLOOD DIPSTICK" /> <statusCode code="completed" /> < effectiveTime value="" /> <value unit="" xsi:type="PQ" value="NEGATIVE" /> <referenceRange> <observationRange> <text>NEGATIVE</text> </observationRange> </ referenceRange> </observation> </component> <component> <observation moodCode="EVN" classCode="OBS"> <templateId root= "216.840.1.864673.10..4.2" /> <id nullFlavor="NA" /> < code codeSystem="local" code="SPGRU" displayName="UA SPECIFIC GRAVITY" /> <statusCode code="completed" /> <effectiveTime value=" " /> <value unit="" xsi:type="PQ" value="1.020" /> < referenceRange> <observationRange> <text>1.015-1.025</ text> </observationRange> </referenceRange> </ observation> </component> <component> <observation moodCode= "EVN" classCode="OBS"> <templateId root="216.840.1.426043.10...4.2 " /> <id nullFlavor="NA" /> <code codeSystem="local" code="FEROZ " displayName="UR PH" /> <statusCode code="completed" /> < effectiveTime value="" /> <value unit="" xsi:type="PQ" value="5.0" /> <referenceRange> <observationRange> <text>5.0-7.0</text> </observationRange> </ referenceRange> </observation> </component> </organizer> </entry > <entry> <organizer moodCode="EVN" classCode="BATTERY"> <templateId root="216.840.1.440924.02.09.22.4.1" /> <id nullFlavor="NA" /> <code codeSystem="local" code="UAMICRO" displayName="UA MICROSCOPIC" /> < statusCode code="completed" /> <component> <observation moodCode= "EVN" classCode="OBS"> <templateId root="06.08.840.1.141630.02.09.22.4.2 " /> <id nullFlavor="NA" /> <code codeSystem="local" code= "BACU" displayName="UA BACTERIA" /> <statusCode code="completed" /> <effectiveTime value="" /> <value unit="" xsi:type= "PQ" value="3+" /> <referenceRange> <observationRange> <text>NEGATIVE</text> </observationRange> </ referenceRange> </observation> </component> <component> <observation moodCode="EVN" classCode="OBS"> <templateId root= "840.1.285885.02.09.22.4.2" /> <id nullFlavor="NA" /> < code codeSystem="local" code="EPIU" displayName="UA EPITHELIAL CELLS" /> <statusCode code="completed" /> <effectiveTime value="" /> <value unit="epi/hpf" xsi:type="PQ" value="2+" /> < referenceRange> <observationRange> <text>0 - 1+</text> </observationRange> </referenceRange> </observation> </component> <component> <observation moodCode="EVN" classCode ="OBS"> <templateId root="06.08.840.1.539125.02.09.22.4.2" /> < id nullFlavor="NA" /> <code codeSystem="local" code="MUCUSU" displayName="UA MUCUS" /> <statusCode code="completed" /> < effectiveTime value="" /> <value unit="" xsi:type="PQ" value="3+" /> <referenceRange> <observationRange> <text>NEG TO 1+</text> </observationRange> </ referenceRange> </observation> </component> <component> <observation moodCode="EVN" classCode="OBS"> <templateId root= "216.840.1.111402.10.4.2" /> <id nullFlavor="NA" /> < code codeSystem="local" code="UAVOL" displayName="UA VOLUME FOR EXAM" /> <statusCode code="completed" /> <effectiveTime value="" /> <value unit="mL" xsi:type="PQ" value="8.0" /> < referenceRange> <observationRange> <text>(12mL STD)</ text> </observationRange> </referenceRange> </ observation> </component> <component> <observation moodCode= "EVN" classCode="OBS"> <templateId root="216.840.1.758211...4.2 " /> <id nullFlavor="NA" /> <code codeSystem="local" code= "WBCU" displayName="UA WBC" /> <statusCode code="completed" /> <effectiveTime value="" /> <value unit="wbc/hpf" xsi:type ="PQ" value="2-5" /> <referenceRange> <observationRange> <text>0 - 5</text> </observationRange> </ referenceRange> </observation> </component> </organizer> </entry > <entry> <organizer moodCode="EVN" classCode="BATTERY"> <templateId root="216.840.1.120225.02.09.22.4.1" /> <id nullFlavor="NA" /> <code codeSystem="local" code="PREGU" displayName="UR TEST" /> < statusCode code="completed" /> <component> <observation moodCode= "EVN" classCode="OBS"> <templateId root="216.840.1.644657.10...4.2 " /> <id nullFlavor="NA" /> <code codeSystem="local" code= "PREGU" displayName="UR TEST" /> <statusCode code="completed " /> <effectiveTime value="653412121101" /> <value unit="" xsi :type="PQ" value="NEGATIVE" /> <referenceRange> < observationRange> <text>NEGATIVE</text> </ observationRange> </referenceRange> </observation> </ component> </organizer> </entry> <entry> <organizer moodCode="EVN" classCode="BATTERY"> <templateId root="216.840.1.668741.10..22.4.1" /> <id nullFlavor="NA" /> <code codeSystem="local" code="iCHEM8" displayName="CHEM/HEM PROFILE-BEDSIDE" /> <statusCode code="completed" /> <component> <observation moodCode="EVN" classCode="OBS"> < templateId root="216.840.1.449870.10..22.4.2" /> <id nullFlavor="NA " /> <code codeSystem="local" code="K" displayName="POTASSIUM" /> <statusCode code="completed" /> <effectiveTime value="820957934647 " /> <value unit="mmol/L" xsi:type="PQ" value="3.6" /> < referenceRange> <observationRange> <text>3.5-5.3</text> </observationRange> </referenceRange> </observation > </component> <component> <observation moodCode="EVN" classCode="OBS"> <templateId root="216.840.1.755406.02.09.22.4.2" /> <id nullFlavor="NA" /> <code codeSystem="local" code="CMETHOD " displayName="METHOD" /> <statusCode code="completed" /> < effectiveTime value="332691676243" /> <value unit="" xsi:type="PQ" value="Bedside" /> <referenceRange> <observationRange> <text /> </observationRange> </referenceRange> </observation> </component> <component> <observation moodCode="EVN" classCode="OBS"> <templateId root= "216.840.1.471535.02.09.22.4.2" /> <id nullFlavor="NA" /> < code codeSystem="local" code="GAP" displayName="ANION GAP" /> < statusCode code="completed" /> <effectiveTime value="709680142019" /> <value unit="mmol/L" xsi:type="PQ" value="17" /> < referenceRange> <observationRange> <text>10-20</text> </observationRange> </referenceRange> </observation> </component> <component> <observation moodCode="EVN" classCode= "OBS"> <templateId root="16.840.1.984092.22.4.2" /> < id nullFlavor="NA" /> <code codeSystem="local" code="HMETHOD" displayName="METHOD" /> <statusCode code="completed" /> < effectiveTime value="894055741939" /> <value unit="" xsi:type="PQ" value="Bedside" /> <referenceRange> <observationRange> <text /> </observationRange> </referenceRange> </observation> </component> <component> <observation moodCode="EVN" classCode="OBS"> <templateId root= "216.840.1.693394.10..22.4.2" /> <id nullFlavor="NA" /> < code codeSystem="local" code="GLU" displayName="GLUCOSE" /> < statusCode code="completed" /> <effectiveTime value="553908458786" /> <value unit="mg/dL" xsi:type="PQ" value="87" /> < referenceRange> <observationRange> <text>70-99</text> </observationRange> </referenceRange> </observation> </component> <component> <observation moodCode="EVN" classCode= "OBS"> <templateId root="06.08.840.1.482426...4.2" /> < id nullFlavor="NA" /> <code codeSystem="local" code="BUN" displayName= "BLOOD UREA NITROGEN" /> <statusCode code="completed" /> < effectiveTime value="431466079707" /> <value unit="mg/dL" xsi:type="PQ " value="11" /> <referenceRange> <observationRange> <text>7-20</text> </observationRange> </referenceRange > </observation> </component> <component> <observation moodCode="EVN" classCode="OBS"> <templateId root= "216.840.1.619416...22.4.2" /> <id nullFlavor="NA" /> < code codeSystem="local" code="CREAT" displayName="CREATININE" /> < statusCode code="completed" /> <effectiveTime value="511029251052" /> <value unit="mg/dL" xsi:type="PQ" value="0.7" /> < referenceRange> <observationRange> <text>0.6-1.0</text> </observationRange> </referenceRange> </observation > </component> <component> <observation moodCode="EVN" classCode="OBS"> <templateId root="216.840.1.240565.10.20.22.4.2" /> <id nullFlavor="NA" /> <code codeSystem="local" code="HGBT" displayName="HEMOGLOBIN" /> <statusCode code="completed" /> < effectiveTime value="411390934206" /> <value unit="gm/dL" xsi:type="PQ " value="15.6" /> <referenceRange> <observationRange> <text>12.0-16.0</text> </observationRange> </ referenceRange> </observation> </component> <component> <observation moodCode="EVN" classCode="OBS"> <templateId root= "840.1.160218.10..4.2" /> <id nullFlavor="NA" /> < code codeSystem="local" code="HCTT" displayName="HEMATOCRIT" /> < statusCode code="completed" /> <effectiveTime value="873038416080" /> <value unit="%" xsi:type="PQ" value="46.0" /> < referenceRange> <observationRange> <text>37.0-47.0</text > </observationRange> </referenceRange> </observation > </component> <component> <observation moodCode="EVN" classCode="OBS"> <templateId root="06.08.840.1.772080.10.20.22.4.2" /> <id nullFlavor="NA" /> <code codeSystem="local" code="NA" displayName="SODIUM" /> <statusCode code="completed" /> < effectiveTime value="978393145177" /> <value unit="mmol/L" xsi:type="PQ " value="139" /> <referenceRange> <observationRange> <text>135-148</text> </observationRange> </ referenceRange> </observation> </component> <component> <observation moodCode="EVN" classCode="OBS"> <templateId root= "16.840.1.326560.10...4.2" /> <id nullFlavor="NA" /> < code codeSystem="local" code="CL" displayName="CHLORIDE" /> < statusCode code="completed" /> <effectiveTime value="031041809376" /> <value unit="mmol/L" xsi:type="PQ" value="104" /> < referenceRange> <observationRange> <text>98-110</text> </observationRange> </referenceRange> </observation> </component> <component> <observation moodCode="EVN" classCode ="OBS"> <templateId root="06.08.840.1.716813....4.2" /> < id nullFlavor="NA" /> <code codeSystem="local" code="CO2" displayName= "CARBON DIOXIDE" /> <statusCode code="completed" /> < effectiveTime value="[id number]" /> <value unit="mmol/L" xsi:type="PQ " value="22" /> <referenceRange> <observationRange> <text>21-32</text> </observationRange> </ referenceRange> </observation> </component> <component> <observation moodCode="EVN" classCode="OBS"> <templateId root= "06.08.840.1.512597...22.4.2" /> <id nullFlavor="NA" /> < code codeSystem="local" code="CAION" displayName="CALCIUM IONIZED" /> < statusCode code="completed" /> <effectiveTime value="759514220963" /> <value unit="mg/dL" xsi:type="PQ" value="4.7" /> < referenceRange> <observationRange> <text>4.5-5.3</text> </observationRange> </referenceRange> </observation > </component> </organizer> </entry> <entry> <organizer moodCode= "EVN" classCode="BATTERY"> <templateId root="216.840.1.623358.10..22.4.1 " /> <id nullFlavor="NA" /> <code codeSystem="local" code="CBCWD" displayName="CBC With Platelet and Differential" /> <statusCode code= "completed" /> <component> <observation moodCode="EVN" classCode= "OBS"> <templateId root="216.840.1.034281.10..22.4.2" /> < id nullFlavor="NA" /> <code codeSystem="local" code="ABASR" displayName ="Absolute Basophils" /> <statusCode code="completed" /> < effectiveTime value="432597890184" /> <value unit="10*3/uL" xsi:type= "PQ" value="0.01" /> <referenceRange> <observationRange> <text>0.00-0.20</text> </observationRange> </ referenceRange> </observation> </component> <component> <observation moodCode="EVN" classCode="OBS"> <templateId root= "216.840.1.294403.10.20.22.4.2" /> <id nullFlavor="NA" /> < code codeSystem="local" code="AEOSR" displayName="Absolute Eosinophils" /> <statusCode code="completed" /> <effectiveTime value="697079595860 " /> <value unit="10*3/uL" xsi:type="PQ" value="0.00" /> < referenceRange> <observationRange> <text>0.00-0.50</text > </observationRange> </referenceRange> </observation > </component> <component> <observation moodCode="EVN" classCode="OBS"> <templateId root="2.16.840.1.537121.10..22.4.2" /> <id nullFlavor="NA" /> <code codeSystem="local" code="ALYMR" displayName="Absolute Lymphocytes" /> <statusCode code="completed" /> <effectiveTime value="" /> <value unit="10*3/uL" xsi:type="PQ" value="1.08" /> <referenceRange> < observationRange> <text>0.80-3.30</text> </ observationRange> </referenceRange> </observation> </ component> <component> <observation moodCode="EVN" classCode="OBS"> <templateId root="2.16.840.1.550543.10...4.2" /> <id nullFlavor="NA" /> <code codeSystem="local" code="AMONR" displayName= "Absolute Monocytes" /> <statusCode code="completed" /> < effectiveTime value="" /> <value unit="10*3/uL" xsi:type= "PQ" value="0.06" /> <interpretationCode codeSystem="local" code="*" / > <referenceRange> <observationRange> <text> 0.30-1.00</text> </observationRange> </referenceRange> </observation> </component> <component> <observation moodCode="EVN" classCode="OBS"> <templateId root= "216.840.1.422730.10.20.22.4.2" /> <id nullFlavor="NA" /> < code codeSystem="local" code="ASEGR" displayName="Absolute Neutrophils" /> <statusCode code="completed" /> <effectiveTime value=" " /> <value unit="10*3/uL" xsi:type="PQ" value="9.49" /> < interpretationCode codeSystem="local" code="*" /> <referenceRange> <observationRange> <text>1.90-7.00</text> </ observationRange> </referenceRange> </observation> </ component> <component> <observation moodCode="EVN" classCode="OBS"> <templateId root="16.840.1.917565.02.09.224.2" /> <id nullFlavor="NA" /> <code codeSystem="local" code="BASOR" displayName= "Basophils" /> <statusCode code="completed" /> <effectiveTime value="" /> <value unit="%" xsi:type="PQ" value="0" /> <referenceRange> <observationRange> <text>0-2< /text> </observationRange> </referenceRange> </ observation> </component> <component> <observation moodCode= "EVN" classCode="OBS"> <templateId root="16.840.1.041575.10.2022.4.2 " /> <id nullFlavor="NA" /> <code codeSystem="local" code= "EOSR" displayName="Eosinophils" /> <statusCode code="completed" /> <effectiveTime value="" /> <value unit="%" xsi: type="PQ" value="0" /> <referenceRange> <observationRange> <text>0-4</text> </observationRange> </ referenceRange> </observation> </component> <component> <observation moodCode="EVN" classCode="OBS"> <templateId root= "216.840.1.237989.10..4.2" /> <id nullFlavor="NA" /> < code codeSystem="local" code="HCT" displayName="HCT" /> <statusCode code="completed" /> <effectiveTime value="694522290771" /> < value unit="%" xsi:type="PQ" value="43.8" /> <referenceRange> <observationRange> <text>37.0-47.0</text> </ observationRange> </referenceRange> </observation> </ component> <component> <observation moodCode="EVN" classCode="OBS"> <templateId root="06.08.840.1.170485.10..4.2" /> <id nullFlavor="NA" /> <code codeSystem="local" code="HGB" displayName="HGB " /> <statusCode code="completed" /> <effectiveTime value= "586931336507" /> <value unit="g/dL" xsi:type="PQ" value="14.8" /> <referenceRange> <observationRange> <text>12.0- 16.0</text> </observationRange> </referenceRange> </ observation> </component> <component> <observation moodCode= "EVN" classCode="OBS"> <templateId root="16.840.1.830386.10..4.2 " /> <id nullFlavor="NA" /> <code codeSystem="local" code= "IMGA" displayName="Immature Granulocytes" /> <statusCode code= "completed" /> <effectiveTime value="804196069819" /> <value unit="%" xsi:type="PQ" value="0.3" /> <referenceRange> < observationRange> <text>0.0-1.0</text> </ observationRange> </referenceRange> </observation> </ component> <component> <observation moodCode="EVN" classCode="OBS"> <templateId root="06.08.840.1.051714.1022.4.2" /> <id nullFlavor="NA" /> <code codeSystem="local" code="LYMPR" displayName= "Lymphocytes" /> <statusCode code="completed" /> < effectiveTime value="992807174340" /> <value unit="%" xsi:type="PQ " value="10" /> <interpretationCode codeSystem="local" code="*" /> <referenceRange> <observationRange> <text>20-46</ text> </observationRange> </referenceRange> </ observation> </component> <component> <observation moodCode= "EVN" classCode="OBS"> <templateId root="06.08.840.1.475592.10..22.4.2 " /> <id nullFlavor="NA" /> <code codeSystem="local" code="MCH " displayName="MCH" /> <statusCode code="completed" /> < effectiveTime value="681338565187" /> <value unit="pg" xsi:type="PQ" value="33.8" /> <interpretationCode codeSystem="local" code="*" /> <referenceRange> <observationRange> <text>27.0- 32.0</text> </observationRange> </referenceRange> </ observation> </component> <component> <observation moodCode= "EVN" classCode="OBS"> <templateId root="840.1.378625.1022.4.2 " /> <id nullFlavor="NA" /> <code codeSystem="local" code= "MCHC" displayName="MCHC" /> <statusCode code="completed" /> < effectiveTime value="" /> <value unit="g/dL" xsi:type="PQ" value="33.8" /> <referenceRange> <observationRange> <text>32.0-36.0</text> </observationRange> </ referenceRange> </observation> </component> <component> <observation moodCode="EVN" classCode="OBS"> <templateId root= "06.08.840.1.819276.02.09.22.4.2" /> <id nullFlavor="NA" /> < code codeSystem="local" code="MCV" displayName="MCV" /> <statusCode code="completed" /> <effectiveTime value="" /> < value unit="fL" xsi:type="PQ" value="100.0" /> <interpretationCode codeSystem="local" code="*" /> <referenceRange> < observationRange> <text>82.0-99.0</text> </ observationRange> </referenceRange> </observation> </ component> <component> <observation moodCode="EVN" classCode="OBS"> <templateId root="06.08.840.1.904706.10.4.2" /> <id nullFlavor="NA" /> <code codeSystem="local" code="MONOR" displayName= "Monocytes" /> <statusCode code="completed" /> <effectiveTime value="" /> <value unit="%" xsi:type="PQ" value="1" /> <interpretationCode codeSystem="local" code="*" /> < referenceRange> <observationRange> <text>4-11</text> </observationRange> </referenceRange> </observation> </component> <component> <observation moodCode="EVN" classCode= "OBS"> <templateId root="06.08.840.1.726174.10.20.22.4.2" /> < id nullFlavor="NA" /> <code codeSystem="local" code="MPV" displayName= "MPV" /> <statusCode code="completed" /> <effectiveTime value= "368746787061" /> <value unit="fL" xsi:type="PQ" value="9.3" /> <interpretationCode codeSystem="local" code="*" /> <referenceRange> <observationRange> <text>9.4-12.4</text> </ observationRange> </referenceRange> </observation> </ component> <component> <observation moodCode="EVN" classCode="OBS"> <templateId root="840.1.300660.10...4.2" /> <id nullFlavor="NA" /> <code codeSystem="local" code="SEGR" displayName= "Neutrophils" /> <statusCode code="completed" /> < effectiveTime value="828160837374" /> <value unit="%" xsi:type="PQ " value="89" /> <interpretationCode codeSystem="local" code="*" /> <referenceRange> <observationRange> <text>51-75</ text> </observationRange> </referenceRange> </ observation> </component> <component> <observation moodCode= "EVN" classCode="OBS"> <templateId root="06.08.840.1.460891.10.20.22.4.2 " /> <id nullFlavor="NA" /> <code codeSystem="local" code= "NRBCA" displayName="Nucleated RBC Automated" /> <statusCode code= "completed" /> <effectiveTime value="" /> <value unit="/100WBC" xsi:type="PQ" value="0.0" /> <referenceRange> <observationRange> <text /> </observationRange> </referenceRange> </observation> </component> <component> <observation moodCode="EVN" classCode="OBS"> <templateId root= "06.08.840.1.226739.10.22.4.2" /> <id nullFlavor="NA" /> < code codeSystem="local" code="PLT" displayName="Platelet Count" /> < statusCode code="completed" /> <effectiveTime value="" /> <value unit="K/uL" xsi:type="PQ" value="342" /> < referenceRange> <observationRange> <text>150-400</text> </observationRange> </referenceRange> </observation > </component> <component> <observation moodCode="EVN" classCode="OBS"> <templateId root="840.1.551421.22.4.2" /> <id nullFlavor="NA" /> <code codeSystem="local" code="RBC" displayName="RBC" /> <statusCode code="completed" /> < effectiveTime value="" /> <value unit="10*6/uL" xsi:type= "PQ" value="4.38" /> <referenceRange> <observationRange> <text>4.00-5.20</text> </observationRange> </ referenceRange> </observation> </component> <component> <observation moodCode="EVN" classCode="OBS"> <templateId root= "06.08.840.1.713802.02.09.22.4.2" /> <id nullFlavor="NA" /> < code codeSystem="local" code="RDW" displayName="RDW" /> <statusCode code="completed" /> <effectiveTime value="321367815283" /> < value unit="%" xsi:type="PQ" value="14.1" /> <referenceRange> <observationRange> <text>11.5-14.5</text> </ observationRange> </referenceRange> </observation> </ component> <component> <observation moodCode="EVN" classCode="OBS"> <templateId root="840.1.273888.02.09.22.4.2" /> <id nullFlavor="NA" /> <code codeSystem="local" code="WBCIR" displayName= "WBC" /> <statusCode code="completed" /> <effectiveTime value= "767087624948" /> <value unit="K/uL" xsi:type="PQ" value="10.7" /> <referenceRange> <observationRange> <text>4.8-10.8 </text> </observationRange> </referenceRange> </ observation> </component> </organizer> </entry> <entry> <organizer moodCode="EVN" classCode="BATTERY"> <templateId root= "06.08.840.1.669782.02.09.22.4.1" /> <id nullFlavor="NA" /> <code codeSystem="local" code="CMP" displayName="Comprehensive Metabolic Panel (CMP)" /> <statusCode code="completed" /> <component> <observation moodCode="EVN" classCode="OBS"> <templateId root= "06.08.840.1.615149.22.4.2" /> <id nullFlavor="NA" /> < code codeSystem="local" code="ALB" displayName="Albumin" /> < statusCode code="completed" /> <effectiveTime value="" /> <value unit="g/dL" xsi:type="PQ" value="5.1" /> < interpretationCode codeSystem="local" code="*" /> <referenceRange> <observationRange> <text>3.5-4.8</text> </ observationRange> </referenceRange> </observation> </ component> <component> <observation moodCode="EVN" classCode="OBS"> <templateId root="216.840.1.148411.10.20.22.4.2" /> <id nullFlavor="NA" /> <code codeSystem="local" code="ALP" displayName= "Alkaline Phosphatase" /> <statusCode code="completed" /> < effectiveTime value="" /> <value unit="U/L" xsi:type="PQ" value="60" /> <referenceRange> <observationRange> <text>26-104</text> </observationRange> </referenceRange > </observation> </component> <component> <observation moodCode="EVN" classCode="OBS"> <templateId root= "16.840.1.199849.10.20.22.4.2" /> <id nullFlavor="NA" /> < code codeSystem="local" code="ALT" displayName="ALT (SGPT)" /> < statusCode code="completed" /> <effectiveTime value="" /> <value unit="U/L" xsi:type="PQ" value="25" /> <referenceRange > <observationRange> <text>14-54</text> </ observationRange> </referenceRange> </observation> </ component> <component> <observation moodCode="EVN" classCode="OBS"> <templateId root="2.16.840.1.427238.10.22.4.2" /> <id nullFlavor="NA" /> <code codeSystem="local" code="AGAP" displayName= "Anion Gap" /> <statusCode code="completed" /> <effectiveTime value="" /> <value unit="mEq/L" xsi:type="PQ" value="11" / > <referenceRange> <observationRange> <text>3- 20</text> </observationRange> </referenceRange> </ observation> </component> <component> <observation moodCode= "EVN" classCode="OBS"> <templateId root="216.840.1.112725.02.09.22.4.2 " /> <id nullFlavor="NA" /> <code codeSystem="local" code="AST " displayName="AST (SGOT)" /> <statusCode code="completed" /> <effectiveTime value="" /> <value unit="U/L" xsi:type="PQ" value="25" /> <referenceRange> <observationRange> <text>15-41</text> </observationRange> </referenceRange > </observation> </component> <component> <observation moodCode="EVN" classCode="OBS"> <templateId root= "16.840.1.323582.1022.4.2" /> <id nullFlavor="NA" /> < code codeSystem="local" code="BILIT" displayName="Bilirubin Total" /> < statusCode code="completed" /> <effectiveTime value="857755458878" /> <value unit="mg/dL" xsi:type="PQ" value="0.6" /> < referenceRange> <observationRange> <text>0.2-1.2</text> </observationRange> </referenceRange> </observation > </component> <component> <observation moodCode="EVN" classCode="OBS"> <templateId root="16.840.1.282884.10..22.4.2" /> <id nullFlavor="NA" /> <code codeSystem="local" code="BUN" displayName="BUN" /> <statusCode code="completed" /> < effectiveTime value="329869213729" /> <value unit="mg/dL" xsi:type="PQ " value="8" /> <referenceRange> <observationRange> <text>4-20</text> </observationRange> </referenceRange > </observation> </component> <component> <observation moodCode="EVN" classCode="OBS"> <templateId root= "16.840.1.449425...4.2" /> <id nullFlavor="NA" /> < code codeSystem="local" code="CA" displayName="Calcium" /> <statusCode code="completed" /> <effectiveTime value="" /> < value unit="mg/dL" xsi:type="PQ" value="9.9" /> <referenceRange> <observationRange> <text>8.6-10.0</text> </ observationRange> </referenceRange> </observation> </ component> <component> <observation moodCode="EVN" classCode="OBS"> <templateId root="06.08.840.1.389057.10.22.4.2" /> <id nullFlavor="NA" /> <code codeSystem="local" code="CL" displayName= "Chloride" /> <statusCode code="completed" /> <effectiveTime value="087960835560" /> <value unit="mEq/L" xsi:type="PQ" value="105" / > <referenceRange> <observationRange> <text>99- 109</text> </observationRange> </referenceRange> </ observation> </component> <component> <observation moodCode= "EVN" classCode="OBS"> <templateId root="06.08.840.1.198570.10..4.2 " /> <id nullFlavor="NA" /> <code codeSystem="local" code="CO2 " displayName="CO2" /> <statusCode code="completed" /> < effectiveTime value="779207669776" /> <value unit="mEq/L" xsi:type="PQ " value="19" /> <interpretationCode codeSystem="local" code="*" /> <referenceRange> <observationRange> <text>22-32</ text> </observationRange> </referenceRange> </ observation> </component> <component> <observation moodCode= "EVN" classCode="OBS"> <templateId root="06.08.840.1.697820.02.09.22.4.2 " /> <id nullFlavor="NA" /> <code codeSystem="local" code= "CREAT" displayName="Creatinine" /> <statusCode code="completed" /> <effectiveTime value="102413285369" /> <value unit="mg/dL" xsi: type="PQ" value="0.60" /> <referenceRange> <observationRange > <text>0.44-1.03</text> </observationRange> </ referenceRange> </observation> </component> <component> <observation moodCode="EVN" classCode="OBS"> <templateId root= "06.08.840.1.693402.02.09.22.4.2" /> <id nullFlavor="NA" /> < code codeSystem="local" code="GLOB" displayName="Globulin" /> < statusCode code="completed" /> <effectiveTime value="" /> <value unit="g/dL" xsi:type="PQ" value="3.8" /> < referenceRange> <observationRange> <text>1.9-4.3</text> </observationRange> </referenceRange> </observation > </component> <component> <observation moodCode="EVN" classCode="OBS"> <templateId root="06.08.840.1.553332.22.4.2" /> <id nullFlavor="NA" /> <code codeSystem="local" code="GLU" displayName="Glucose" /> <statusCode code="completed" /> < effectiveTime value="" /> <value unit="mg/dL" xsi:type="PQ " value="119" /> <interpretationCode codeSystem="local" code="*" /> <referenceRange> <observationRange> <text>70-100< /text> </observationRange> </referenceRange> </ observation> </component> <component> <observation moodCode= "EVN" classCode="OBS"> <templateId root="06.08.840.1.958469.02.09.22.4.2 " /> <id nullFlavor="NA" /> <code codeSystem="local" code="K" displayName="Potassium" /> <statusCode code="completed" /> < effectiveTime value="" /> <value unit="mEq/L" xsi:type="PQ " value="4.1" /> <referenceRange> <observationRange> <text>3.6-5.1</text> </observationRange> </ referenceRange> </observation> </component> <component> <observation moodCode="EVN" classCode="OBS"> <templateId root= "06.08.840.1.820278.22.4.2" /> <id nullFlavor="NA" /> < code codeSystem="local" code="TP" displayName="Protein" /> <statusCode code="completed" /> <effectiveTime value="710806850173" /> < value unit="g/dL" xsi:type="PQ" value="8.9" /> <interpretationCode codeSystem="local" code="*" /> <referenceRange> < observationRange> <text>6.1-7.9</text> </ observationRange> </referenceRange> </observation> </ component> <component> <observation moodCode="EVN" classCode="OBS"> <templateId root="840.1.834369.02.09.22.4.2" /> <id nullFlavor="NA" /> <code codeSystem="local" code="NA" displayName= "Sodium" /> <statusCode code="completed" /> <effectiveTime value="" /> <value unit="mEq/L" xsi:type="PQ" value="135" / > <interpretationCode codeSystem="local" code="*" /> < referenceRange> <observationRange> <text>136-144</text> </observationRange> </referenceRange> </observation > </component> </organizer> </entry> <entry> <organizer moodCode= "EVN" classCode="BATTERY"> <templateId root="840.1.914285.02.09.22.4.1 " /> <id nullFlavor="NA" /> <code codeSystem="local" code="ALC" displayName="Alcohol, Blood" /> <statusCode code="completed" /> < component> <observation moodCode="EVN" classCode="OBS"> < templateId root="840.1.469833.02.09.22.4.2" /> <id nullFlavor="NA " /> <code codeSystem="local" code="ALC" displayName="Alcohol, Blood" / > <statusCode code="completed" /> <effectiveTime value= "209616235984" /> <value unit="mg/dL" xsi:type="PQ" value="Not Detected " /> <referenceRange> <observationRange> <text /> </observationRange> </referenceRange> </ observation> </component> </organizer> </entry> <entry> <organizer moodCode="EVN" classCode="BATTERY"> <templateId root= "216.840.1.136746.10...4.1" /> <id nullFlavor="NA" /> <code codeSystem="local" code="ACETM" displayName="Acetaminophen" /> <statusCode code="completed" /> <component> <observation moodCode="EVN" classCode="OBS"> <templateId root="216.840.1.375322.10..22.4.2" /> <id nullFlavor="NA" /> <code codeSystem="local" code="ACETM" displayName="Acetaminophen" /> <statusCode code="completed" /> <effectiveTime value="" /> <value unit="mcg/mL" xsi:type= "PQ" value="<10" /> <referenceRange> <observationRange> <text>10-30</text> </observationRange> </ referenceRange> </observation> </component> </organizer> </entry > <entry> <organizer moodCode="EVN" classCode="BATTERY"> <templateId root="216.840.1.300769.10...4.1" /> <id nullFlavor="NA" /> <code codeSystem="local" code="SALIC" displayName="Salicylate" /> <statusCode code="completed" /> <component> <observation moodCode="EVN" classCode="OBS"> <templateId root="2.16.840.1.415307.10..22.4.2" /> <id nullFlavor="NA" /> <code codeSystem="local" code="SALIC" displayName="Salicylate" /> <statusCode code="completed" /> < effectiveTime value="" /> <value unit="mg/dL" xsi:type="PQ " value="<4" /> <referenceRange> <observationRange> <text>0-30</text> </observationRange> </ referenceRange> </observation> </component> </organizer> </entry > <entry> <organizer moodCode="EVN" classCode="BATTERY"> <templateId root="2.16.840.1.446937.10..22.4.1" /> <id nullFlavor="NA" /> <code codeSystem="local" code="GFR" displayName="eGFR" /> <statusCode code= "completed" /> <component> <observation moodCode="EVN" classCode= "OBS"> <templateId root="2.16.840.1.101034.10..22.4.2" /> < id nullFlavor="NA" /> <code codeSystem="local" code="GFR" displayName= "eGFR" /> <statusCode code="completed" /> <effectiveTime value ="956692603762" /> <value unit="mL/min" xsi:type="PQ" value=">60" / > <referenceRange> <observationRange> <text>&gt ;60</text> </observationRange> </referenceRange> </ observation> </component> </organizer> </entry> <entry> <organizer moodCode="EVN" classCode="BATTERY"> <templateId root= "216.840.1.309364.10..4.1" /> <id nullFlavor="NA" /> <code codeSystem="local" code="PREGN" displayName=" Screen, Urine NPT" /> <statusCode code="completed" /> <component> <observation moodCode ="EVN" classCode="OBS"> <templateId root= "06.08.840.1.805318.02.09.22.4.2" /> <id nullFlavor="NA" /> < code codeSystem="local" code="PREGN" displayName=" Screen, Urine NPT" / > <statusCode code="completed" /> <effectiveTime value= "443969843027" /> <value unit="NA" xsi:type="PQ" value="Negative" /> <referenceRange> <observationRange> <text /> </observationRange> </referenceRange> </observation> </component> </organizer> </entry> <entry> <organizer moodCode="EVN " classCode="BATTERY"> <templateId root="16.840.1.879362.02.09.22.4.1" / > <id nullFlavor="NA" /> <code codeSystem="local" code="UA" displayName="Urinalysis with reflex microscopic" /> <statusCode code= "completed" /> <component> <observation moodCode="EVN" classCode= "OBS"> <templateId root="16.840.1.398638.10..4.2" /> < id nullFlavor="NA" /> <code codeSystem="local" code="UAPP" displayName= "Appearance" /> <statusCode code="completed" /> < effectiveTime value="169544480556" /> <value unit="NA" xsi:type="PQ" value="Cloudy" /> <interpretationCode codeSystem="local" code="*" /> <referenceRange> <observationRange> <text /> </observationRange> </referenceRange> </observation> </component> <component> <observation moodCode="EVN" classCode= "OBS"> <templateId root="16.840.1.275011.10..4.2" /> < id nullFlavor="NA" /> <code codeSystem="local" code="UBIL" displayName= "Bilirubin" /> <statusCode code="completed" /> <effectiveTime value="" /> <value unit="NA" xsi:type="PQ" value="Negative " /> <referenceRange> <observationRange> <text> Negative</text> </observationRange> </referenceRange> </observation> </component> <component> <observation moodCode ="EVN" classCode="OBS"> <templateId root= "06.08.840.1.573099.02.09.22.4.2" /> <id nullFlavor="NA" /> < code codeSystem="local" code="UBLD" displayName="Blood" /> <statusCode code="completed" /> <effectiveTime value="" /> < value unit="NA" xsi:type="PQ" value="Negative" /> <referenceRange> <observationRange> <text>Negative</text> </ observationRange> </referenceRange> </observation> </ component> <component> <observation moodCode="EVN" classCode="OBS"> <templateId root="06.08.840.1.703732.02.09.22.4.2" /> <id nullFlavor="NA" /> <code codeSystem="local" code="UCOLR" displayName= "Color" /> <statusCode code="completed" /> <effectiveTime value="" /> <value unit="NA" xsi:type="PQ" value="Yellow" / > <referenceRange> <observationRange> <text /> </observationRange> </referenceRange> </observation > </component> <component> <observation moodCode="EVN" classCode="OBS"> <templateId root="840.1.357047.10.22.4.2" /> <id nullFlavor="NA" /> <code codeSystem="local" code="UGLU" displayName="Glucose, Urine" /> <statusCode code="completed" /> <effectiveTime value="760893216679" /> <value unit="" xsi:type="PQ" value="Negative" /> <referenceRange> <observationRange> <text>Negative</text> </observationRange> </ referenceRange> </observation> </component> <component> <observation moodCode="EVN" classCode="OBS"> <templateId root= "840.1.676972.02.09.22.4.2" /> <id nullFlavor="NA" /> < code codeSystem="local" code="UKET" displayName="Ketones" /> < statusCode code="completed" /> <effectiveTime value="959480664607" /> <value unit="" xsi:type="PQ" value="Trace" /> < interpretationCode codeSystem="local" code="*" /> <referenceRange> <observationRange> <text>Negative</text> </ observationRange> </referenceRange> </observation> </ component> <component> <observation moodCode="EVN" classCode="OBS"> <templateId root="840.1.781382.102022.4.2" /> <id nullFlavor="NA" /> <code codeSystem="local" code="ULEU" displayName= "Leukocyte Esterase" /> <statusCode code="completed" /> < effectiveTime value="762607548677" /> <value unit="NA" xsi:type="PQ" value="Negative" /> <referenceRange> <observationRange> <text>Negative</text> </observationRange> </ referenceRange> </observation> </component> <component> <observation moodCode="EVN" classCode="OBS"> <templateId root= "216.840.1.486394.02.09.22.4.2" /> <id nullFlavor="NA" /> < code codeSystem="local" code="UNIT" displayName="Nitrites" /> < statusCode code="completed" /> <effectiveTime value="918209248957" /> <value unit="NA" xsi:type="PQ" value="Negative" /> < referenceRange> <observationRange> <text>Negative</text > </observationRange> </referenceRange> </observation > </component> <component> <observation moodCode="EVN" classCode="OBS"> <templateId root="06.08.840.1.914342.02.09.22.4.2" /> <id nullFlavor="NA" /> <code codeSystem="local" code="UPH" displayName="pH" /> <statusCode code="completed" /> < effectiveTime value="518416197442" /> <value unit="NA" xsi:type="PQ" value="5.0" /> <referenceRange> <observationRange> <text>5.0-8.0</text> </observationRange> </ referenceRange> </observation> </component> <component> <observation moodCode="EVN" classCode="OBS"> <templateId root= "16.840.1.415636.22.4.2" /> <id nullFlavor="NA" /> < code codeSystem="local" code="UPRO" displayName="Protein" /> < statusCode code="completed" /> <effectiveTime value="642289586872" /> <value unit="NA" xsi:type="PQ" value="Pos 1+" /> < interpretationCode codeSystem="local" code="*" /> <referenceRange> <observationRange> <text>Negative</text> </ observationRange> </referenceRange> </observation> </ component> <component> <observation moodCode="EVN" classCode="OBS"> <templateId root="2.16.840.1.558473.10..22.4.2" /> <id nullFlavor="NA" /> <code codeSystem="local" code="USPG" displayName= "Specific [place]" /> <statusCode code="completed" /> < effectiveTime value="273974235562" /> <value unit="NA" xsi:type="PQ" value="1.040" /> <interpretationCode codeSystem="local" code="*" /> <referenceRange> <observationRange> <text>1.003- 1.030</text> </observationRange> </referenceRange> </ observation> </component> <component> <observation moodCode= "EVN" classCode="OBS"> <templateId root="216.840.1.149803.10..22.4.2 " /> <id nullFlavor="NA" /> <code codeSystem="local" code= "UTYP" displayName="UA Collection type" /> <statusCode code="completed " /> <effectiveTime value="831315224922" /> <value unit="NA" xsi:type="PQ" value="Not Specified" /> <referenceRange> < observationRange> <text /> </observationRange> </referenceRange> </observation> </component> <component> <observation moodCode="EVN" classCode="OBS"> <templateId root= "216.840.1.611576.10..22.4.2" /> <id nullFlavor="NA" /> < code codeSystem="local" code="UURO" displayName="Urobilinogen" /> < statusCode code="completed" /> <effectiveTime value="188796144690" /> <value unit="mg/dL" xsi:type="PQ" value="Negative" /> < referenceRange> <observationRange> <text><1.0</text> </observationRange> </referenceRange> </observation > </component> </organizer> </entry> <entry> <organizer moodCode= "EVN" classCode="BATTERY"> <templateId root="216.840.1.540433.10..22.4.1 " /> <id nullFlavor="NA" /> <code codeSystem="local" code="UDRGH" displayName="Urine Drug Screen" /> <statusCode code="completed" /> < component> <observation moodCode="EVN" classCode="OBS"> < templateId root="216.840.1.432585.10..22.4.2" /> <id nullFlavor="NA " /> <code codeSystem="local" code="UAMP1" displayName="Amph/Meth/ Ecstasy" /> <statusCode code="completed" /> <effectiveTime value="196986952063" /> <value unit="NA" xsi:type="PQ" value="Negative " /> <referenceRange> <observationRange> <text /> </observationRange> </referenceRange> </ observation> </component> <component> <observation moodCode= "EVN" classCode="OBS"> <templateId root="216.840.1.823684.02.09.22.4.2 " /> <id nullFlavor="NA" /> <code codeSystem="local" code= "UBAR1" displayName="Barbiturates" /> <statusCode code="completed" /> <effectiveTime value="810321665136" /> <value unit="NA" xsi: type="PQ" value="Negative" /> <referenceRange> < observationRange> <text /> </observationRange> </referenceRange> </observation> </component> <component> <observation moodCode="EVN" classCode="OBS"> <templateId root= "216.840.1.848851.02.09.22.4.2" /> <id nullFlavor="NA" /> < code codeSystem="local" code="UBEN1" displayName="Benzodiazepine" /> < statusCode code="completed" /> <effectiveTime value="" /> <value unit="NA" xsi:type="PQ" value="Negative" /> < referenceRange> <observationRange> <text /> < /observationRange> </referenceRange> </observation> </ component> <component> <observation moodCode="EVN" classCode="OBS"> <templateId root="216.840.1.852914.02.09.22.4.2" /> <id nullFlavor="NA" /> <code codeSystem="local" code="UCAN1" displayName= "Cannabinoid" /> <statusCode code="completed" /> < effectiveTime value="338146137167" /> <value unit="NA" xsi:type="PQ" value="Negative" /> <referenceRange> <observationRange> <text /> </observationRange> </referenceRange> </observation> </component> <component> <observation moodCode="EVN" classCode="OBS"> <templateId root= "16.840.1.952243.02.09.22.4.2" /> <id nullFlavor="NA" /> < code codeSystem="local" code="UCOC1" displayName="Cocaine" /> < statusCode code="completed" /> <effectiveTime value="" /> <value unit="NA" xsi:type="PQ" value="Negative" /> < referenceRange> <observationRange> <text /> < /observationRange> </referenceRange> </observation> </ component> <component> <observation moodCode="EVN" classCode="OBS"> <templateId root="06.08.840.1.287038.02.09.22.4.2" /> <id nullFlavor="NA" /> <code codeSystem="local" code="UMTD1" displayName= "EDDP (Methadone met.)" /> <statusCode code="completed" /> < effectiveTime value="" /> <value unit="NA" xsi:type="PQ" value="Negative" /> <referenceRange> <observationRange> <text /> </observationRange> </referenceRange> </observation> </component> <component> <observation moodCode="EVN" classCode="OBS"> <templateId root= "06.08.840.1.205888....4.2" /> <id nullFlavor="NA" /> < code codeSystem="local" code="UOPI1" displayName="Opiate" /> < statusCode code="completed" /> <effectiveTime value="366985415504" /> <value unit="NA" xsi:type="PQ" value="Negative" /> < referenceRange> <observationRange> <text /> < /observationRange> </referenceRange> </observation> </ component> <component> <observation moodCode="EVN" classCode="OBS"> <templateId root="840.1.442194.10..4.2" /> <id nullFlavor="NA" /> <code codeSystem="local" code="UPCP1" displayName= "Phencyclidine (PCP)" /> <statusCode code="completed" /> < effectiveTime value="458230994237" /> <value unit="NA" xsi:type="PQ" value="Negative" /> <referenceRange> <observationRange> <text /> </observationRange> </referenceRange> </observation> </component> </organizer> </entry> <entry> < organizer moodCode="EVN" classCode="BATTERY"> <templateId root= "16.840.1.375353.10..4.1" /> <id nullFlavor="NA" /> <code codeSystem="local" code="UMIC" displayName="Urine Microscopic" /> < statusCode code="completed" /> <component> <observation moodCode= "EVN" classCode="OBS"> <templateId root="16.840.1.592257.10...4.2 " /> <id nullFlavor="NA" /> <code codeSystem="local" code= "UBAC" displayName="Bacteria" /> <statusCode code="completed" /> <effectiveTime value="475198921131" /> <value unit="NA" xsi:type= "PQ" value="Numerous" /> <interpretationCode codeSystem="local" code="* " /> <referenceRange> <observationRange> <text /> </observationRange> </referenceRange> </ observation> </component> <component> <observation moodCode= "EVN" classCode="OBS"> <templateId root="16.840.1.055368.10...4.2 " /> <id nullFlavor="NA" /> <code codeSystem="local" code= "UEPI" displayName="Epithelial Cells" /> <statusCode code="completed" / > <effectiveTime value="" /> <value unit="/HPF" xsi:type="PQ" value="10" /> <referenceRange> < observationRange> <text /> </observationRange> </referenceRange> </observation> </component> <component> <observation moodCode="EVN" classCode="OBS"> <templateId root= "06.08.840.1.079881.22.4.2" /> <id nullFlavor="NA" /> < code codeSystem="local" code="URBC" displayName="RBC, Urine" /> < statusCode code="completed" /> <effectiveTime value="318223054345" /> <value unit="/HPF" xsi:type="PQ" value="0" /> <referenceRange > <observationRange> <text>0-2</text> </ observationRange> </referenceRange> </observation> </ component> <component> <observation moodCode="EVN" classCode="OBS"> <templateId root="06.08.840.1.646454.22.4.2" /> <id nullFlavor="NA" /> <code codeSystem="local" code="UMUC" displayName= "Urine Mucus" /> <statusCode code="completed" /> < effectiveTime value="283164218005" /> <value unit="NA" xsi:type="PQ" value="Present" /> <referenceRange> <observationRange> <text /> </observationRange> </referenceRange> </observation> </component> <component> <observation moodCode="EVN" classCode="OBS"> <templateId root= "840.1.515358.22.4.2" /> <id nullFlavor="NA" /> < code codeSystem="local" code="UWBC" displayName="WBC, Urine" /> < statusCode code="completed" /> <effectiveTime value="778609677091" /> <value unit="/HPF" xsi:type="PQ" value="0" /> <referenceRange > <observationRange> <text>0-4</text> </ observationRange> </referenceRange> </observation> </ component> </organizer> </entry> <entry> <organizer moodCode="EVN" classCode="BATTERY"> <templateId root="216.840.1.731459.02.09.22.4.1" /> <id nullFlavor="NA" /> <code codeSystem="local" code="PREGU" displayName="UR TEST" /> <statusCode code="completed" /> < component> <observation moodCode="EVN" classCode="OBS"> < templateId root="216.840.1.718398.02.09.22.4.2" /> <id nullFlavor="NA " /> <code codeSystem="local" code="PREGU" displayName="UR TEST" /> <statusCode code="completed" /> <effectiveTime value= "170587124050" /> <value unit="" xsi:type="PQ" value="NEGATIVE" /> <referenceRange> <observationRange> <text>NEGATIVE </text> </observationRange> </referenceRange> </ observation> </component> </organizer> </entry> <entry> <organizer moodCode="EVN" classCode="BATTERY"> <templateId root= "216.840.1.171447.10.4.1" /> <id nullFlavor="NA" /> <code codeSystem="local" code="UA" displayName="URINALYSIS, ROUTINE" /> < statusCode code="completed" /> <component> <observation moodCode= "EVN" classCode="OBS"> <templateId root="16.840.1.867998.10.4.2 " /> <id nullFlavor="NA" /> <code codeSystem="local" code= "LEUESU" displayName="UA LEUKOCYTE ESTERASE DIPSTICK" /> <statusCode code="completed" /> <effectiveTime value="" /> < value unit="" xsi:type="PQ" value="TRACE" /> <referenceRange> <observationRange> <text>NEGATIVE</text> </ observationRange> </referenceRange> </observation> </ component> <component> <observation moodCode="EVN" classCode="OBS"> <templateId root="06.08.840.1.171594.02.09.224.2" /> <id nullFlavor="NA" /> <code codeSystem="local" code="NITRIU" displayName= "UA NITRITE DIPSTICK" /> <statusCode code="completed" /> < effectiveTime value="" /> <value unit="" xsi:type="PQ" value="NEGATIVE" /> <referenceRange> <observationRange> <text>NEGATIVE</text> </observationRange> </ referenceRange> </observation> </component> <component> <observation moodCode="EVN" classCode="OBS"> <templateId root= "06.08.840.1.189097.10.4.2" /> <id nullFlavor="NA" /> < code codeSystem="local" code="PROTEIU" displayName="UA PROTEIN DIPSTICK" /> <statusCode code="completed" /> <effectiveTime value= "" /> <value unit="" xsi:type="PQ" value="1+" /> < interpretationCode codeSystem="local" code="*" /> <referenceRange> <observationRange> <text>NEGATIVE</text> </ observationRange> </referenceRange> </observation> </ component> <component> <observation moodCode="EVN" classCode="OBS"> <templateId root="16.840.1.435931.10..4.2" /> <id nullFlavor="NA" /> <code codeSystem="local" code="DGLUU" displayName= "UA GLUCOSE DIPSTICK" /> <statusCode code="completed" /> < effectiveTime value="" /> <value unit="" xsi:type="PQ" value="NEGATIVE" /> <referenceRange> <observationRange> <text>NEGATIVE</text> </observationRange> </ referenceRange> </observation> </component> <component> <observation moodCode="EVN" classCode="OBS"> <templateId root= "840.1.774846.02.09.22.4.2" /> <id nullFlavor="NA" /> < code codeSystem="local" code="KETONU" displayName="UA KETONE DIPSTICK" /> <statusCode code="completed" /> <effectiveTime value=" " /> <value unit="" xsi:type="PQ" value="NEGATIVE" /> < referenceRange> <observationRange> <text>NEGATIVE</text > </observationRange> </referenceRange> </observation > </component> <component> <observation moodCode="EVN" classCode="OBS"> <templateId root="06.08.840.1.407879.10.4.2" /> <id nullFlavor="NA" /> <code codeSystem="local" code="UROBILU " displayName="UA UROBILINOGEN DIPSTICK" /> <statusCode code="completed " /> <effectiveTime value="" /> <value unit="" xsi :type="PQ" value="NORMAL" /> <referenceRange> < observationRange> <text>NORMAL</text> </observationRange > </referenceRange> </observation> </component> < component> <observation moodCode="EVN" classCode="OBS"> < templateId root="216.840.1.490763.02.09.22.4.2" /> <id nullFlavor="NA " /> <code codeSystem="local" code="BILU" displayName="UA BILIRUBIN DIPSTICK" /> <statusCode code="completed" /> <effectiveTime value="453867361145" /> <value unit="" xsi:type="PQ" value="3+" /> <interpretationCode codeSystem="local" code="*" /> < referenceRange> <observationRange> <text>NEGATIVE</text > </observationRange> </referenceRange> </observation > </component> <component> <observation moodCode="EVN" classCode="OBS"> <templateId root="16.840.1.359621.02.09.22.4.2" /> <id nullFlavor="NA" /> <code codeSystem="local" code="SPENCER" displayName="UA BLOOD DIPSTICK" /> <statusCode code="completed" /> <effectiveTime value="591435799526" /> <value unit="" xsi:type= "PQ" value="4+" /> <interpretationCode codeSystem="local" code="*" /> <referenceRange> <observationRange> <text> NEGATIVE</text> </observationRange> </referenceRange> </observation> </component> <component> <observation moodCode ="EVN" classCode="OBS"> <templateId root= "06.08.840.1.103891.02.09.22.4.2" /> <id nullFlavor="NA" /> < code codeSystem="local" code="SPGRU" displayName="UA SPECIFIC GRAVITY" /> <statusCode code="completed" /> <effectiveTime value=" " /> <value unit="" xsi:type="PQ" value="1.020" /> < referenceRange> <observationRange> <text>1.015-1.025</ text> </observationRange> </referenceRange> </ observation> </component> <component> <observation moodCode= "EVN" classCode="OBS"> <templateId root="840.1.403500.02.09.22.4.2 " /> <id nullFlavor="NA" /> <code codeSystem="local" code="FEROZ " displayName="UR PH" /> <statusCode code="completed" /> < effectiveTime value="" /> <value unit="" xsi:type="PQ" value="5.0" /> <referenceRange> <observationRange> <text>5.0-7.0</text> </observationRange> </ referenceRange> </observation> </component> </organizer> </entry > <entry> <organizer moodCode="EVN" classCode="BATTERY"> <templateId root="840.1.771806.02.09.22.4.1" /> <id nullFlavor="NA" /> <code codeSystem="local" code="UAMICRO" displayName="UA MICROSCOPIC" /> < statusCode code="completed" /> <component> <observation moodCode= "EVN" classCode="OBS"> <templateId root="840.1.380217.02.09.22.4.2 " /> <id nullFlavor="NA" /> <code codeSystem="local" code= "BACU" displayName="UA BACTERIA" /> <statusCode code="completed" /> <effectiveTime value="457221327446" /> <value unit="" xsi:type= "PQ" value="3+" /> <interpretationCode codeSystem="local" code="*" /> <referenceRange> <observationRange> <text> NEGATIVE</text> </observationRange> </referenceRange> </observation> </component> <component> <observation moodCode ="EVN" classCode="OBS"> <templateId root= "216.840.1.114966.10...4.2" /> <id nullFlavor="NA" /> < code codeSystem="local" code="EPIU" displayName="UA EPITHELIAL CELLS" /> <statusCode code="completed" /> <effectiveTime value="560439798955" /> <value unit="epi/hpf" xsi:type="PQ" value="2+" /> < interpretationCode codeSystem="local" code="*" /> <referenceRange> <observationRange> <text>0 - 1+</text> </ observationRange> </referenceRange> </observation> </ component> <component> <observation moodCode="EVN" classCode="OBS"> <templateId root="16.840.1.759428.10...4.2" /> <id nullFlavor="NA" /> <code codeSystem="local" code="MUCUSU" displayName= "UA MUCUS" /> <statusCode code="completed" /> <effectiveTime value="754345968846" /> <value unit="" xsi:type="PQ" value="3+" /> <interpretationCode codeSystem="local" code="*" /> < referenceRange> <observationRange> <text>NEG TO 1+</text > </observationRange> </referenceRange> </observation > </component> <component> <observation moodCode="EVN" classCode="OBS"> <templateId root="2.16.840.1.564022.10..22.4.2" /> <id nullFlavor="NA" /> <code codeSystem="local" code="RBCU" displayName="UA RBC" /> <statusCode code="completed" /> < effectiveTime value="" /> <value unit="rbc/hpf" xsi:type= "PQ" value="0-3" /> <referenceRange> <observationRange> <text>0 - 3</text> </observationRange> </ referenceRange> </observation> </component> <component> <observation moodCode="EVN" classCode="OBS"> <templateId root= "2.16.840.1.241215...4.2" /> <id nullFlavor="NA" /> < code codeSystem="local" code="UAVOL" displayName="UA VOLUME FOR EXAM" /> <statusCode code="completed" /> <effectiveTime value="" /> <value unit="mL" xsi:type="PQ" value="12.0" /> < referenceRange> <observationRange> <text>(12mL STD)</ text> </observationRange> </referenceRange> </ observation> </component> <component> <observation moodCode= "EVN" classCode="OBS"> <templateId root="216.840.1.771785.10..22.4.2 " /> <id nullFlavor="NA" /> <code codeSystem="local" code= "WBCU" displayName="UA WBC" /> <statusCode code="completed" /> <effectiveTime value="" /> <value unit="wbc/hpf" xsi:type ="PQ" value="2-5" /> <referenceRange> <observationRange> <text>0 - 5</text> </observationRange> </ referenceRange> </observation> </component> </organizer> </entry > <entry> <organizer moodCode="EVN" classCode="BATTERY"> <templateId root="06.08.840.1.642327.02.09.22.4.1" /> <id nullFlavor="NA" /> <code codeSystem="local" code="CBCD" displayName="CBC W/DIFF" /> <statusCode code ="completed" /> <component> <observation moodCode="EVN" classCode= "OBS"> <templateId root="06.08.840.1.314697.02.09.22.4.2" /> < id nullFlavor="NA" /> <code codeSystem="local" code="GR#" displayName= "GRANULOCYTE #" /> <statusCode code="completed" /> < effectiveTime value="532362407985" /> <value unit="k/cumm" xsi:type="PQ " value="4.1" /> <referenceRange> <observationRange> <text>2.0-9.0</text> </observationRange> </ referenceRange> </observation> </component> <component> <observation moodCode="EVN" classCode="OBS"> <templateId root= "06.08.840.1.157229.02.09.22.4.2" /> <id nullFlavor="NA" /> < code codeSystem="local" code="GR%" displayName="GRANULOCYTE %" /> <statusCode code="completed" /> <effectiveTime value="012540563674 " /> <value unit="%" xsi:type="PQ" value="59" /> < referenceRange> <observationRange> <text>50-75</text> </observationRange> </referenceRange> </observation> </component> <component> <observation moodCode="EVN" classCode= "OBS"> <templateId root="16.840.1.668886.10.2022.4.2" /> < id nullFlavor="NA" /> <code codeSystem="local" code="LY#" displayName= "LYMPHOCYTE #" /> <statusCode code="completed" /> < effectiveTime value="329534800362" /> <value unit="k/cumm" xsi:type="PQ " value="2.4" /> <referenceRange> <observationRange> <text>1.0-4.0</text> </observationRange> </ referenceRange> </observation> </component> <component> <observation moodCode="EVN" classCode="OBS"> <templateId root= "06.08.840.1.073685.10.4.2" /> <id nullFlavor="NA" /> < code codeSystem="local" code="LY%" displayName="LYMPHOCYTE %" /> <statusCode code="completed" /> <effectiveTime value="962407653631" /> <value unit="%" xsi:type="PQ" value="34" /> < interpretationCode codeSystem="local" code="*" /> <referenceRange> <observationRange> <text>20-30</text> </ observationRange> </referenceRange> </observation> </ component> <component> <observation moodCode="EVN" classCode="OBS"> <templateId root="16.840.1.780295.10.2022.4.2" /> <id nullFlavor="NA" /> <code codeSystem="local" code="MCH" displayName= "MEAN CELL HGB" /> <statusCode code="completed" /> < effectiveTime value="905935971517" /> <value unit="pg" xsi:type="PQ" value="33.9" /> <interpretationCode codeSystem="local" code="*" /> <referenceRange> <observationRange> <text>27.0- 33.0</text> </observationRange> </referenceRange> </ observation> </component> <component> <observation moodCode= "EVN" classCode="OBS"> <templateId root="216.840.1.504110.10.20.22.4.2 " /> <id nullFlavor="NA" /> <code codeSystem="local" code= "MCHC" displayName="MEAN CELL HGB CONCENTRATION" /> <statusCode code= "completed" /> <effectiveTime value="544509697413" /> <value unit="g/dL" xsi:type="PQ" value="33.0" /> <referenceRange> < observationRange> <text>32.0-37.0</text> </ observationRange> </referenceRange> </observation> </ component> <component> <observation moodCode="EVN" classCode="OBS"> <templateId root="2.16.840.1.038253.10.20.22.4.2" /> <id nullFlavor="NA" /> <code codeSystem="local" code="MCV" displayName= "MEAN CELL VOLUME" /> <statusCode code="completed" /> < effectiveTime value="705692116328" /> <value unit="fl" xsi:type="PQ" value="102.9" /> <interpretationCode codeSystem="local" code="*" /> <referenceRange> <observationRange> <text>80.0- 100.0</text> </observationRange> </referenceRange> </ observation> </component> <component> <observation moodCode= "EVN" classCode="OBS"> <templateId root="16.840.1.040469.10.22.4.2 " /> <id nullFlavor="NA" /> <code codeSystem="local" code="MO# " displayName="MONOCYTE #" /> <statusCode code="completed" /> <effectiveTime value="041286866719" /> <value unit="k/cumm" xsi:type= "PQ" value="0.4" /> <referenceRange> <observationRange> <text>0.1-1.0</text> </observationRange> </ referenceRange> </observation> </component> <component> <observation moodCode="EVN" classCode="OBS"> <templateId root= "06.08.840.1.330663.10..4.2" /> <id nullFlavor="NA" /> < code codeSystem="local" code="MO%" displayName="MONOCYTE %" /> <statusCode code="completed" /> <effectiveTime value="344913852467" /> <value unit="%" xsi:type="PQ" value="6" /> < referenceRange> <observationRange> <text>4-6</text> </observationRange> </referenceRange> </observation> </component> <component> <observation moodCode="EVN" classCode= "OBS"> <templateId root="06.08.840.1.945576.10..22.4.2" /> < id nullFlavor="NA" /> <code codeSystem="local" code="RBC" displayName= "RED BLOOD CELL" /> <statusCode code="completed" /> < effectiveTime value="671226501026" /> <value unit="m/cumm" xsi:type="PQ " value="3.45" /> <interpretationCode codeSystem="local" code="*" /> <referenceRange> <observationRange> <text>4.00- 6.00</text> </observationRange> </referenceRange> </ observation> </component> <component> <observation moodCode= "EVN" classCode="OBS"> <templateId root="16.840.1.911628.10.20.22.4.2 " /> <id nullFlavor="NA" /> <code codeSystem="local" code="RDW " displayName="RED CELL DISTRIBUTION WIDTH" /> <statusCode code= "completed" /> <effectiveTime value="237072398380" /> <value unit="%" xsi:type="PQ" value="13.7" /> <referenceRange> <observationRange> <text>11.0-15.6</text> </ observationRange> </referenceRange> </observation> </ component> <component> <observation moodCode="EVN" classCode="OBS"> <templateId root="840.1.566964..22.4.2" /> <id nullFlavor="NA" /> <code codeSystem="local" code="WBC" displayName= "WHITE BLOOD CELL" /> <statusCode code="completed" /> < effectiveTime value="829239675970" /> <value unit="k/cumm" xsi:type="PQ " value="6.9" /> <referenceRange> <observationRange> <text>5.0-10.0</text> </observationRange> </ referenceRange> </observation> </component> <component> <observation moodCode="EVN" classCode="OBS"> <templateId root= "06.08.840.1.343095.10.20.22.4.2" /> <id nullFlavor="NA" /> < code codeSystem="local" code="HGBT" displayName="HEMOGLOBIN" /> < statusCode code="completed" /> <effectiveTime value="588978740169" /> <value unit="gm/dL" xsi:type="PQ" value="11.7" /> < interpretationCode codeSystem="local" code="*" /> <referenceRange> <observationRange> <text>12.0-16.0</text> </ observationRange> </referenceRange> </observation> </ component> <component> <observation moodCode="EVN" classCode="OBS"> <templateId root="2.16.840.1.201147.10.20.22.4.2" /> <id nullFlavor="NA" /> <code codeSystem="local" code="HCTT" displayName= "HEMATOCRIT" /> <statusCode code="completed" /> < effectiveTime value="514144459968" /> <value unit="%" xsi:type="PQ " value="35.5" /> <interpretationCode codeSystem="local" code="*" /> <referenceRange> <observationRange> <text>37.0- 47.0</text> </observationRange> </referenceRange> </ observation> </component> <component> <observation moodCode= "EVN" classCode="OBS"> <templateId root="2.16.840.1.386790.10.20.22.4.2 " /> <id nullFlavor="NA" /> <code codeSystem="local" code= "PLTT" displayName="PLATELET COUNT" /> <statusCode code="completed" /> <effectiveTime value="944204874974" /> <value unit="k/cumm" xsi:type="PQ" value="321" /> <referenceRange> < observationRange> <text>150-450</text> </ observationRange> </referenceRange> </observation> </ component> </organizer> </entry> <entry> <organizer moodCode="EVN" classCode="BATTERY"> <templateId root="16.840.1.823927...4.1" /> <id nullFlavor="NA" /> <code codeSystem="local" code="METAB" displayName="METABOLIC PANEL, BASIC" /> <statusCode code="completed" /> <component> <observation moodCode="EVN" classCode="OBS"> < templateId root="06.08.840.1.253474.02.09.22.4.2" /> <id nullFlavor="NA " /> <code codeSystem="local" code="K" displayName="POTASSIUM" /> <statusCode code="completed" /> <effectiveTime value="459173300732 " /> <value unit="mmol/L" xsi:type="PQ" value="3.7" /> < referenceRange> <observationRange> <text>3.5-5.3</text> </observationRange> </referenceRange> </observation > </component> <component> <observation moodCode="EVN" classCode="OBS"> <templateId root="06.08.840.1.830123.02.09.22.4.2" /> <id nullFlavor="NA" /> <code codeSystem="local" code="eGFR" displayName="EST GFR (MDRD)" /> <statusCode code="completed" /> <effectiveTime value="" /> <value unit="mL/min" xsi:type ="PQ" value="> 60" /> <referenceRange> <observationRange > <text>> 59</text> </observationRange> </ referenceRange> </observation> </component> <component> <observation moodCode="EVN" classCode="OBS"> <templateId root= "06.08.840.1.348498.02.09.22.4.2" /> <id nullFlavor="NA" /> < code codeSystem="local" code="GAP" displayName="ANION GAP" /> < statusCode code="completed" /> <effectiveTime value="" /> <value unit="mmol/L" xsi:type="PQ" value="11" /> < referenceRange> <observationRange> <text>5-15</text> </observationRange> </referenceRange> </observation> </component> <component> <observation moodCode="EVN" classCode= "OBS"> <templateId root="2.16.840.1.569675.10..22.4.2" /> < id nullFlavor="NA" /> <code codeSystem="local" code="eCrCl" displayName ="EST CrCl (CG)" /> <statusCode code="completed" /> < effectiveTime value="" /> <value unit="mL/min" xsi:type="PQ " value="> 60" /> <referenceRange> <observationRange> <text>> 59</text> </observationRange> </ referenceRange> </observation> </component> <component> <observation moodCode="EVN" classCode="OBS"> <templateId root= "2.16.840.1.082796.10..22.4.2" /> <id nullFlavor="NA" /> < code codeSystem="local" code="GLU" displayName="GLUCOSE" /> < statusCode code="completed" /> <effectiveTime value="" /> <value unit="mg/dL" xsi:type="PQ" value="80" /> < referenceRange> <observationRange> <text>70-99</text> </observationRange> </referenceRange> </observation> </component> <component> <observation moodCode="EVN" classCode= "OBS"> <templateId root="16.840.1.025084.10.20.22.4.2" /> < id nullFlavor="NA" /> <code codeSystem="local" code="CA" displayName= "CALCIUM" /> <statusCode code="completed" /> <effectiveTime value="" /> <value unit="mg/dL" xsi:type="PQ" value="9.1" / > <referenceRange> <observationRange> <text>8.5 -10.1</text> </observationRange> </referenceRange> </ observation> </component> <component> <observation moodCode= "EVN" classCode="OBS"> <templateId root="16.840.1.210654..22.4.2 " /> <id nullFlavor="NA" /> <code codeSystem="local" code="BUN " displayName="BLOOD UREA NITROGEN" /> <statusCode code="completed" /> <effectiveTime value="" /> <value unit="mg/dL" xsi:type="PQ" value="19" /> <referenceRange> < observationRange> <text>7-20</text> </observationRange> </referenceRange> </observation> </component> < component> <observation moodCode="EVN" classCode="OBS"> < templateId root="06.08.840.1.236338.10.20.22.4.2" /> <id nullFlavor="NA " /> <code codeSystem="local" code="CREAT" displayName="CREATININE" /> <statusCode code="completed" /> <effectiveTime value= "344651369258" /> <value unit="mg/dL" xsi:type="PQ" value="0.9" /> <referenceRange> <observationRange> <text>0.6-1.0< /text> </observationRange> </referenceRange> </ observation> </component> <component> <observation moodCode= "EVN" classCode="OBS"> <templateId root="2.16.840.1.885458.10.22.4.2 " /> <id nullFlavor="NA" /> <code codeSystem="local" code="NA " displayName="SODIUM" /> <statusCode code="completed" /> < effectiveTime value="" /> <value unit="mmol/L" xsi:type="PQ " value="134" /> <interpretationCode codeSystem="local" code="*" /> <referenceRange> <observationRange> <text>135-148 </text> </observationRange> </referenceRange> </ observation> </component> <component> <observation moodCode= "EVN" classCode="OBS"> <templateId root="16.840.1.780546.02.09.22.4.2 " /> <id nullFlavor="NA" /> <code codeSystem="local" code="CL " displayName="CHLORIDE" /> <statusCode code="completed" /> < effectiveTime value="" /> <value unit="mmol/L" xsi:type="PQ " value="100" /> <referenceRange> <observationRange> <text>98-110</text> </observationRange> </ referenceRange> </observation> </component> <component> <observation moodCode="EVN" classCode="OBS"> <templateId root= "216.840.1.356260.10..4.2" /> <id nullFlavor="NA" /> < code codeSystem="local" code="CO2" displayName="CARBON DIOXIDE" /> < statusCode code="completed" /> <effectiveTime value="" /> <value unit="mmol/L" xsi:type="PQ" value="23" /> < referenceRange> <observationRange> <text>21-32</text> </observationRange> </referenceRange> </observation> </component> </organizer> </entry> <entry> <organizer moodCode="EVN " classCode="BATTERY"> <templateId root="16.840.1.915627.10..22.4.1" / > <id nullFlavor="NA" /> <code codeSystem="local" code="UA" displayName="URINALYSIS, ROUTINE" /> <statusCode code="completed" /> < component> <observation moodCode="EVN" classCode="OBS"> < templateId root="216.840.1.792475.10...4.2" /> <id nullFlavor="NA " /> <code codeSystem="local" code="LEUESU" displayName="UA LEUKOCYTE ESTERASE DIPSTICK" /> <statusCode code="completed" /> < effectiveTime value="908605680671" /> <value unit="" xsi:type="PQ" value="TRACE" /> <referenceRange> <observationRange> <text>NEGATIVE</text> </observationRange> </ referenceRange> </observation> </component> <component> <observation moodCode="EVN" classCode="OBS"> <templateId root= "16.840.1.981570.10...4.2" /> <id nullFlavor="NA" /> < code codeSystem="local" code="NITRIU" displayName="UA NITRITE DIPSTICK" /> <statusCode code="completed" /> <effectiveTime value="928691217839 " /> <value unit="" xsi:type="PQ" value="NEGATIVE" /> < referenceRange> <observationRange> <text>NEGATIVE</text > </observationRange> </referenceRange> </observation > </component> <component> <observation moodCode="EVN" classCode="OBS"> <templateId root="216.840.1.880952.10.22.4.2" /> <id nullFlavor="NA" /> <code codeSystem="local" code="PROTEIU " displayName="UA PROTEIN DIPSTICK" /> <statusCode code="completed" /> <effectiveTime value="560886476455" /> <value unit="" xsi: type="PQ" value="1+" /> <interpretationCode codeSystem="local" code="* " /> <referenceRange> <observationRange> <text> NEGATIVE</text> </observationRange> </referenceRange> </observation> </component> <component> <observation moodCode ="EVN" classCode="OBS"> <templateId root= "06.08.840.1.954737.02.09.22.4.2" /> <id nullFlavor="NA" /> < code codeSystem="local" code="DGLUU" displayName="UA GLUCOSE DIPSTICK" /> <statusCode code="completed" /> <effectiveTime value="676829007379 " /> <value unit="" xsi:type="PQ" value="NEGATIVE" /> < referenceRange> <observationRange> <text>NEGATIVE</text > </observationRange> </referenceRange> </observation > </component> <component> <observation moodCode="EVN" classCode="OBS"> <templateId root="16.840.1.774921...4.2" /> <id nullFlavor="NA" /> <code codeSystem="local" code="KETONU" displayName="UA KETONE DIPSTICK" /> <statusCode code="completed" /> <effectiveTime value="858601548920" /> <value unit="" xsi:type= "PQ" value="NEGATIVE" /> <referenceRange> <observationRange > <text>NEGATIVE</text> </observationRange> </ referenceRange> </observation> </component> <component> <observation moodCode="EVN" classCode="OBS"> <templateId root= "216.840.1.195749.10..4.2" /> <id nullFlavor="NA" /> < code codeSystem="local" code="UROBILU" displayName="UA UROBILINOGEN DIPSTICK" / > <statusCode code="completed" /> <effectiveTime value= "736494834814" /> <value unit="" xsi:type="PQ" value="NORMAL" /> <referenceRange> <observationRange> <text>NORMAL</ text> </observationRange> </referenceRange> </ observation> </component> <component> <observation moodCode= "EVN" classCode="OBS"> <templateId root="06.08.840.1.867648.10..4.2 " /> <id nullFlavor="NA" /> <code codeSystem="local" code= "BILU" displayName="UA BILIRUBIN DIPSTICK" /> <statusCode code= "completed" /> <effectiveTime value="943326624309" /> <value unit="" xsi:type="PQ" value="1+" /> <interpretationCode codeSystem= "local" code="*" /> <referenceRange> <observationRange> <text>NEGATIVE</text> </observationRange> </ referenceRange> </observation> </component> <component> <observation moodCode="EVN" classCode="OBS"> <templateId root= "16.840.1.092938.10..22.4.2" /> <id nullFlavor="NA" /> < code codeSystem="local" code="SPENCER" displayName="UA BLOOD DIPSTICK" /> < statusCode code="completed" /> <effectiveTime value="201688019700" /> <value unit="" xsi:type="PQ" value="1+" /> < interpretationCode codeSystem="local" code="*" /> <referenceRange> <observationRange> <text>NEGATIVE</text> </ observationRange> </referenceRange> </observation> </ component> <component> <observation moodCode="EVN" classCode="OBS"> <templateId root="2.16.840.1.288204.10..22.4.2" /> <id nullFlavor="NA" /> <code codeSystem="local" code="SPGRU" displayName= "UA SPECIFIC GRAVITY" /> <statusCode code="completed" /> < effectiveTime value="164479482601" /> <value unit="" xsi:type="PQ" value="1.020" /> <referenceRange> <observationRange> <text>1.015-1.025</text> </observationRange> </ referenceRange> </observation> </component> <component> <observation moodCode="EVN" classCode="OBS"> <templateId root= "2.16.840.1.153411.10..22.4.2" /> <id nullFlavor="NA" /> < code codeSystem="local" code="FEROZ" displayName="UR PH" /> <statusCode code="completed" /> <effectiveTime value="836708805175" /> < value unit="" xsi:type="PQ" value="5.0" /> <referenceRange> <observationRange> <text>5.0-7.0</text> </ observationRange> </referenceRange> </observation> </ component> </organizer> </entry> <entry> <organizer moodCode="EVN" classCode="BATTERY"> <templateId root="216.840.1.313910.10..22.4.1" /> <id nullFlavor="NA" /> <code codeSystem="local" code="UAMICRO" displayName="UA MICROSCOPIC" /> <statusCode code="completed" /> < component> <observation moodCode="EVN" classCode="OBS"> < templateId root="16.840.1.554935.10..22.4.2" /> <id nullFlavor="NA " /> <code codeSystem="local" code="BACU" displayName="UA BACTERIA" /> <statusCode code="completed" /> <effectiveTime value= "597137021745" /> <value unit="" xsi:type="PQ" value="2+" /> < interpretationCode codeSystem="local" code="*" /> <referenceRange> <observationRange> <text>NEGATIVE</text> </ observationRange> </referenceRange> </observation> </ component> <component> <observation moodCode="EVN" classCode="OBS"> <templateId root="16.840.1.929286.10..22.4.2" /> <id nullFlavor="NA" /> <code codeSystem="local" code="EPIU" displayName=" UA EPITHELIAL CELLS" /> <statusCode code="completed" /> < effectiveTime value="264490377614" /> <value unit="epi/hpf" xsi:type= "PQ" value="3+" /> <interpretationCode codeSystem="local" code="*" /> <referenceRange> <observationRange> <text>0 - 1 +</text> </observationRange> </referenceRange> </ observation> </component> <component> <observation moodCode= "EVN" classCode="OBS"> <templateId root="216.840.1.492192.10..22.4.2 " /> <id nullFlavor="NA" /> <code codeSystem="local" code= "MUCUSU" displayName="UA MUCUS" /> <statusCode code="completed" /> <effectiveTime value="662655308879" /> <value unit="" xsi:type= "PQ" value="4+" /> <interpretationCode codeSystem="local" code="*" /> <referenceRange> <observationRange> <text>NEG TO 1+</text> </observationRange> </referenceRange> </ observation> </component> <component> <observation moodCode= "EVN" classCode="OBS"> <templateId root="06.08.840.1.403429...4.2 " /> <id nullFlavor="NA" /> <code codeSystem="local" code= "RBCU" displayName="UA RBC" /> <statusCode code="completed" /> <effectiveTime value="198165637715" /> <value unit="rbc/hpf" xsi:type ="PQ" value="0-3" /> <referenceRange> <observationRange> <text>0 - 3</text> </observationRange> </ referenceRange> </observation> </component> <component> <observation moodCode="EVN" classCode="OBS"> <templateId root= "06.08.840.1.271239.10.2022.4.2" /> <id nullFlavor="NA" /> < code codeSystem="local" code="UAVOL" displayName="UA VOLUME FOR EXAM" /> <statusCode code="completed" /> <effectiveTime value="592924086160" /> <value unit="mL" xsi:type="PQ" value="12.0" /> < referenceRange> <observationRange> <text>(12mL STD)</ text> </observationRange> </referenceRange> </ observation> </component> <component> <observation moodCode= "EVN" classCode="OBS"> <templateId root="2.16.840.1.150369.10..22.4.2 " /> <id nullFlavor="NA" /> <code codeSystem="local" code= "WBCU" displayName="UA WBC" /> <statusCode code="completed" /> <effectiveTime value="694116173069" /> <value unit="wbc/hpf" xsi:type ="PQ" value="2-5" /> <referenceRange> <observationRange> <text>0 - 5</text> </observationRange> </ referenceRange> </observation> </component> </organizer> </entry > <entry> <organizer moodCode="EVN" classCode="BATTERY"> <templateId root="2.16.840.1.014813.10.20.22.4.1" /> <id nullFlavor="NA" /> <code codeSystem="local" code="PREGU" displayName="UR TEST" /> < statusCode code="completed" /> <component> <observation moodCode= "EVN" classCode="OBS"> <templateId root="2.16.840.1.500221.10.20.22.4.2 " /> <id nullFlavor="NA" /> <code codeSystem="local" code= "PREGU" displayName="UR TEST" /> <statusCode code="completed " /> <effectiveTime value="179917961857" /> <value unit="" xsi :type="PQ" value="NEGATIVE" /> <referenceRange> < observationRange> <text>NEGATIVE</text> </ observationRange> </referenceRange> </observation> </ component> </organizer> </entry> <entry> <organizer moodCode="EVN" classCode="BATTERY"> <templateId root="216.840.1.446384.10...4.1" /> <id nullFlavor="NA" /> <code codeSystem="local" code="CBCD" displayName="CBC W/DIFF" /> <statusCode code="completed" /> <component > <observation moodCode="EVN" classCode="OBS"> <templateId root= "16.840.1.777205.10..4.2" /> <id nullFlavor="NA" /> < code codeSystem="local" code="GR#" displayName="GRANULOCYTE #" /> < statusCode code="completed" /> <effectiveTime value="557731720589" /> <value unit="k/cumm" xsi:type="PQ" value="2.9" /> < referenceRange> <observationRange> <text>2.0-9.0</text> </observationRange> </referenceRange> </observation > </component> <component> <observation moodCode="EVN" classCode="OBS"> <templateId root="216.840.1.781217.10..4.2" /> <id nullFlavor="NA" /> <code codeSystem="local" code="GR% " displayName="GRANULOCYTE %" /> <statusCode code="completed" /> <effectiveTime value="720850452247" /> <value unit="%" xsi: type="PQ" value="63" /> <referenceRange> <observationRange> <text>50-75</text> </observationRange> </ referenceRange> </observation> </component> <component> <observation moodCode="EVN" classCode="OBS"> <templateId root= "216.840.1.380527.02.09.22.4.2" /> <id nullFlavor="NA" /> < code codeSystem="local" code="LY#" displayName="LYMPHOCYTE #" /> < statusCode code="completed" /> <effectiveTime value="896523473463" /> <value unit="k/cumm" xsi:type="PQ" value="1.4" /> < referenceRange> <observationRange> <text>1.0-4.0</text> </observationRange> </referenceRange> </observation > </component> <component> <observation moodCode="EVN" classCode="OBS"> <templateId root="216.840.1.138918.02.09.224.2" /> <id nullFlavor="NA" /> <code codeSystem="local" code="LY% " displayName="LYMPHOCYTE %" /> <statusCode code="completed" /> <effectiveTime value="849546275008" /> <value unit="%" xsi: type="PQ" value="30" /> <referenceRange> <observationRange> <text>20-30</text> </observationRange> </ referenceRange> </observation> </component> <component> <observation moodCode="EVN" classCode="OBS"> <templateId root= "16.840.1.292427.10.4.2" /> <id nullFlavor="NA" /> < code codeSystem="local" code="MCH" displayName="MEAN CELL HGB" /> < statusCode code="completed" /> <effectiveTime value="586072732191" /> <value unit="pg" xsi:type="PQ" value="34.1" /> < interpretationCode codeSystem="local" code="*" /> <referenceRange> <observationRange> <text>27.0-33.0</text> </ observationRange> </referenceRange> </observation> </ component> <component> <observation moodCode="EVN" classCode="OBS"> <templateId root="16.840.1.050973.10.2022.4.2" /> <id nullFlavor="NA" /> <code codeSystem="local" code="MCHC" displayName= "MEAN CELL HGB CONCENTRATION" /> <statusCode code="completed" /> <effectiveTime value="786423042475" /> <value unit="g/dL" xsi:type= "PQ" value="33.0" /> <referenceRange> <observationRange> <text>32.0-37.0</text> </observationRange> </ referenceRange> </observation> </component> <component> <observation moodCode="EVN" classCode="OBS"> <templateId root= "06.08.840.1.924525.02.09.224.2" /> <id nullFlavor="NA" /> < code codeSystem="local" code="MCV" displayName="MEAN CELL VOLUME" /> < statusCode code="completed" /> <effectiveTime value="712120550912" /> <value unit="fl" xsi:type="PQ" value="103.4" /> < interpretationCode codeSystem="local" code="*" /> <referenceRange> <observationRange> <text>80.0-100.0</text> </ observationRange> </referenceRange> </observation> </ component> <component> <observation moodCode="EVN" classCode="OBS"> <templateId root="06.08.840.1.407157.02.09.22.4.2" /> <id nullFlavor="NA" /> <code codeSystem="local" code="MO#" displayName= "MONOCYTE #" /> <statusCode code="completed" /> < effectiveTime value="569942277191" /> <value unit="k/cumm" xsi:type="PQ " value="0.3" /> <referenceRange> <observationRange> <text>0.1-1.0</text> </observationRange> </ referenceRange> </observation> </component> <component> <observation moodCode="EVN" classCode="OBS"> <templateId root= "216.840.1.902268.10..22.4.2" /> <id nullFlavor="NA" /> < code codeSystem="local" code="MO%" displayName="MONOCYTE %" /> <statusCode code="completed" /> <effectiveTime value="316407657025" /> <value unit="%" xsi:type="PQ" value="6" /> < referenceRange> <observationRange> <text>4-6</text> </observationRange> </referenceRange> </observation> </component> <component> <observation moodCode="EVN" classCode= "OBS"> <templateId root="216.840.1.850823.10..22.4.2" /> < id nullFlavor="NA" /> <code codeSystem="local" code="RBC" displayName= "RED BLOOD CELL" /> <statusCode code="completed" /> < effectiveTime value="491958731047" /> <value unit="m/cumm" xsi:type="PQ " value="3.52" /> <interpretationCode codeSystem="local" code="*" /> <referenceRange> <observationRange> <text>4.00- 6.00</text> </observationRange> </referenceRange> </ observation> </component> <component> <observation moodCode= "EVN" classCode="OBS"> <templateId root="2.16.840.1.532512.10.20.22.4.2 " /> <id nullFlavor="NA" /> <code codeSystem="local" code="RDW " displayName="RED CELL DISTRIBUTION WIDTH" /> <statusCode code= "completed" /> <effectiveTime value="015664754293" /> <value unit="%" xsi:type="PQ" value="14.2" /> <referenceRange> <observationRange> <text>11.0-15.6</text> </ observationRange> </referenceRange> </observation> </ component> <component> <observation moodCode="EVN" classCode="OBS"> <templateId root="06.08.840.1.052036.10.20.22.4.2" /> <id nullFlavor="NA" /> <code codeSystem="local" code="WBC" displayName= "WHITE BLOOD CELL" /> <statusCode code="completed" /> < effectiveTime value="104295700299" /> <value unit="k/cumm" xsi:type="PQ " value="4.6" /> <interpretationCode codeSystem="local" code="*" /> <referenceRange> <observationRange> <text>5.0- 10.0</text> </observationRange> </referenceRange> </ observation> </component> <component> <observation moodCode= "EVN" classCode="OBS"> <templateId root="06.08.840.1.039168.10.2022.4.2 " /> <id nullFlavor="NA" /> <code codeSystem="local" code= "HGBT" displayName="HEMOGLOBIN" /> <statusCode code="completed" /> <effectiveTime value="543191538776" /> <value unit="gm/dL" xsi: type="PQ" value="12.0" /> <referenceRange> <observationRange > <text>12.0-16.0</text> </observationRange> </ referenceRange> </observation> </component> <component> <observation moodCode="EVN" classCode="OBS"> <templateId root= "216.840.1.317871.10.20.22.4.2" /> <id nullFlavor="NA" /> < code codeSystem="local" code="HCTT" displayName="HEMATOCRIT" /> < statusCode code="completed" /> <effectiveTime value="308964725744" /> <value unit="%" xsi:type="PQ" value="36.4" /> < interpretationCode codeSystem="local" code="*" /> <referenceRange> <observationRange> <text>37.0-47.0</text> </ observationRange> </referenceRange> </observation> </ component> <component> <observation moodCode="EVN" classCode="OBS"> <templateId root="06.08.840.1.315651.10...4.2" /> <id nullFlavor="NA" /> <code codeSystem="local" code="PLTT" displayName= "PLATELET COUNT" /> <statusCode code="completed" /> < effectiveTime value="576584087870" /> <value unit="k/cumm" xsi:type="PQ " value="338" /> <referenceRange> <observationRange> <text>150-450</text> </observationRange> </ referenceRange> </observation> </component> </organizer> </entry > <entry> <organizer moodCode="EVN" classCode="BATTERY"> <templateId root="216.840.1.844336.10.20.22.4.1" /> <id nullFlavor="NA" /> <code codeSystem="local" code="METABC" displayName="METABOLIC PANEL, COMPREHN" /> <statusCode code="completed" /> <component> <observation moodCode= "EVN" classCode="OBS"> <templateId root="06.08.840.1.958391.02.09.22.4.2 " /> <id nullFlavor="NA" /> <code codeSystem="local" code="K" displayName="POTASSIUM" /> <statusCode code="completed" /> < effectiveTime value="600341389266" /> <value unit="mmol/L" xsi:type="PQ " value="3.9" /> <referenceRange> <observationRange> <text>3.5-5.3</text> </observationRange> </ referenceRange> </observation> </component> <component> <observation moodCode="EVN" classCode="OBS"> <templateId root= "840.1.129768.02.09.22.4.2" /> <id nullFlavor="NA" /> < code codeSystem="local" code="eGFR" displayName="EST GFR (MDRD)" /> < statusCode code="completed" /> <effectiveTime value="340624718938" /> <value unit="mL/min" xsi:type="PQ" value="> 60" /> < referenceRange> <observationRange> <text>> 59</text> </observationRange> </referenceRange> </observation > </component> <component> <observation moodCode="EVN" classCode="OBS"> <templateId root="06.08.840.1.152699.02.09.22.4.2" /> <id nullFlavor="NA" /> <code codeSystem="local" code="GAP" displayName="ANION GAP" /> <statusCode code="completed" /> < effectiveTime value="544474786903" /> <value unit="mmol/L" xsi:type="PQ " value="13" /> <referenceRange> <observationRange> <text>5-15</text> </observationRange> </referenceRange > </observation> </component> <component> <observation moodCode="EVN" classCode="OBS"> <templateId root= "216.840.1.543956.10...4.2" /> <id nullFlavor="NA" /> < code codeSystem="local" code="eCrCl" displayName="EST CrCl (CG)" /> < statusCode code="completed" /> <effectiveTime value="345502377565" /> <value unit="mL/min" xsi:type="PQ" value="> 60" /> < referenceRange> <observationRange> <text>> 59</text> </observationRange> </referenceRange> </observation > </component> <component> <observation moodCode="EVN" classCode="OBS"> <templateId root="16.840.1.002102.02.09.22.4.2" /> <id nullFlavor="NA" /> <code codeSystem="local" code="GLU" displayName="GLUCOSE" /> <statusCode code="completed" /> < effectiveTime value="353009832822" /> <value unit="mg/dL" xsi:type="PQ " value="99" /> <referenceRange> <observationRange> <text>70-99</text> </observationRange> </ referenceRange> </observation> </component> <component> <observation moodCode="EVN" classCode="OBS"> <templateId root= "216.840.1.656415.10...4.2" /> <id nullFlavor="NA" /> < code codeSystem="local" code="CA" displayName="CALCIUM" /> <statusCode code="completed" /> <effectiveTime value="169049366670" /> < value unit="mg/dL" xsi:type="PQ" value="9.1" /> <referenceRange> <observationRange> <text>8.5-10.1</text> </ observationRange> </referenceRange> </observation> </ component> <component> <observation moodCode="EVN" classCode="OBS"> <templateId root="216.840.1.140732.10...4.2" /> <id nullFlavor="NA" /> <code codeSystem="local" code="BUN" displayName= "BLOOD UREA NITROGEN" /> <statusCode code="completed" /> < effectiveTime value="175815237862" /> <value unit="mg/dL" xsi:type="PQ " value="15" /> <referenceRange> <observationRange> <text>7-20</text> </observationRange> </referenceRange > </observation> </component> <component> <observation moodCode="EVN" classCode="OBS"> <templateId root= "216.840.1.403927.10...4.2" /> <id nullFlavor="NA" /> < code codeSystem="local" code="CREAT" displayName="CREATININE" /> < statusCode code="completed" /> <effectiveTime value="833539580233" /> <value unit="mg/dL" xsi:type="PQ" value="0.7" /> < referenceRange> <observationRange> <text>0.6-1.0</text> </observationRange> </referenceRange> </observation > </component> <component> <observation moodCode="EVN" classCode="OBS"> <templateId root="216.840.1.426968...22.4.2" /> <id nullFlavor="NA" /> <code codeSystem="local" code="NA" displayName="SODIUM" /> <statusCode code="completed" /> < effectiveTime value="762447511389" /> <value unit="mmol/L" xsi:type="PQ " value="142" /> <referenceRange> <observationRange> <text>135-148</text> </observationRange> </ referenceRange> </observation> </component> <component> <observation moodCode="EVN" classCode="OBS"> <templateId root= "216.840.1.523779...4.2" /> <id nullFlavor="NA" /> < code codeSystem="local" code="CL" displayName="CHLORIDE" /> < statusCode code="completed" /> <effectiveTime value="971376001210" /> <value unit="mmol/L" xsi:type="PQ" value="104" /> < referenceRange> <observationRange> <text>98-110</text> </observationRange> </referenceRange> </observation> </component> <component> <observation moodCode="EVN" classCode ="OBS"> <templateId root="2.16.840.1.927505....4.2" /> < id nullFlavor="NA" /> <code codeSystem="local" code="AST" displayName= "AST/SGOT" /> <statusCode code="completed" /> <effectiveTime value="555148207714" /> <value unit="Units/L" xsi:type="PQ" value="19" /> <referenceRange> <observationRange> <text>10 -37</text> </observationRange> </referenceRange> </ observation> </component> <component> <observation moodCode= "EVN" classCode="OBS"> <templateId root="16.840.1.128747.10..22.4.2 " /> <id nullFlavor="NA" /> <code codeSystem="local" code="ALT " displayName="ALT/SGPT" /> <statusCode code="completed" /> < effectiveTime value="712066855328" /> <value unit="Units/L" xsi:type= "PQ" value="50" /> <referenceRange> <observationRange> <text>< 66</text> </observationRange> </ referenceRange> </observation> </component> <component> <observation moodCode="EVN" classCode="OBS"> <templateId root= "06.08.840.1.628250...4.2" /> <id nullFlavor="NA" /> < code codeSystem="local" code="CO2" displayName="CARBON DIOXIDE" /> < statusCode code="completed" /> <effectiveTime value="994673733738" /> <value unit="mmol/L" xsi:type="PQ" value="25" /> < referenceRange> <observationRange> <text>21-32</text> </observationRange> </referenceRange> </observation> </component> <component> <observation moodCode="EVN" classCode= "OBS"> <templateId root="06.08.840.1.684379.10.22.4.2" /> < id nullFlavor="NA" /> <code codeSystem="local" code="TP" displayName= "TOTAL PROTEIN" /> <statusCode code="completed" /> < effectiveTime value="586941445866" /> <value unit="gm/dL" xsi:type="PQ " value="7.9" /> <referenceRange> <observationRange> <text>6.4-8.2</text> </observationRange> </ referenceRange> </observation> </component> <component> <observation moodCode="EVN" classCode="OBS"> <templateId root= "216.840.1.325021.10.4.2" /> <id nullFlavor="NA" /> < code codeSystem="local" code="ALB" displayName="ALBUMIN" /> < statusCode code="completed" /> <effectiveTime value="767575563368" /> <value unit="gm/dL" xsi:type="PQ" value="4.4" /> < referenceRange> <observationRange> <text>3.4-5.0</text> </observationRange> </referenceRange> </observation > </component> <component> <observation moodCode="EVN" classCode="OBS"> <templateId root="16.840.1.630940.02.09.22.4.2" /> <id nullFlavor="NA" /> <code codeSystem="local" code="BILTOT" displayName="BILI TOTAL" /> <statusCode code="completed" /> < effectiveTime value="370737533426" /> <value unit="mg/dL" xsi:type="PQ " value="0.3" /> <referenceRange> <observationRange> <text>0.0-1.0</text> </observationRange> </ referenceRange> </observation> </component> <component> <observation moodCode="EVN" classCode="OBS"> <templateId root= "216.840.1.911599.02.09.22.4.2" /> <id nullFlavor="NA" /> < code codeSystem="local" code="ALKP" displayName="ALKALINE PHOSPHATASE TOTAL" /> <statusCode code="completed" /> <effectiveTime value= "624969404893" /> <value unit="IU/L" xsi:type="PQ" value="67" /> <referenceRange> <observationRange> <text>45-117</ text> </observationRange> </referenceRange> </ observation> </component> </organizer> </entry> <entry> <organizer moodCode="EVN" classCode="BATTERY"> <templateId root= "16.840.1.957236.10..22.4.1" /> <id nullFlavor="NA" /> <code codeSystem="local" code="LIP" displayName="LIPASE" /> <statusCode code= "completed" /> <component> <observation moodCode="EVN" classCode= "OBS"> <templateId root="06.08.840.1.411654.10..22.4.2" /> < id nullFlavor="NA" /> <code codeSystem="local" code="LIP" displayName= "LIPASE" /> <statusCode code="completed" /> <effectiveTime value="089757662722" /> <value unit="Units/L" xsi:type="PQ" value="103 " /> <referenceRange> <observationRange> <text> 73-393</text> </observationRange> </referenceRange> < /observation> </component> </organizer> </entry> <entry> < organizer moodCode="EVN" classCode="BATTERY"> <templateId root= "16.840.1.339880.10.22.4.1" /> <id nullFlavor="NA" /> <code codeSystem="local" code="CBCD" displayName="CBC W/DIFF" /> <statusCode code ="completed" /> <component> <observation moodCode="EVN" classCode= "OBS"> <templateId root="16.840.1.737164.10.4.2" /> < id nullFlavor="NA" /> <code codeSystem="local" code="EO#" displayName= "EOSINOPHIL #" /> <statusCode code="completed" /> < effectiveTime value="687447517993" /> <value unit="k/cumm" xsi:type="PQ " value="0.1" /> <referenceRange> <observationRange> <text>0.1-0.5</text> </observationRange> </ referenceRange> </observation> </component> <component> <observation moodCode="EVN" classCode="OBS"> <templateId root= "216.840.1.691920.02.09.224.2" /> <id nullFlavor="NA" /> < code codeSystem="local" code="EO%" displayName="EOSINOPHIL %" /> <statusCode code="completed" /> <effectiveTime value="247292821015" /> <value unit="%" xsi:type="PQ" value="1" /> < interpretationCode codeSystem="local" code="*" /> <referenceRange> <observationRange> <text>2-4</text> </ observationRange> </referenceRange> </observation> </ component> <component> <observation moodCode="EVN" classCode="OBS"> <templateId root="16.840.1.490917.104.2" /> <id nullFlavor="NA" /> <code codeSystem="local" code="GR#" displayName= "GRANULOCYTE #" /> <statusCode code="completed" /> < effectiveTime value="596192666176" /> <value unit="k/cumm" xsi:type="PQ " value="4.7" /> <referenceRange> <observationRange> <text>2.0-9.0</text> </observationRange> </ referenceRange> </observation> </component> <component> <observation moodCode="EVN" classCode="OBS"> <templateId root= "216.840.1.298944.10.4.2" /> <id nullFlavor="NA" /> < code codeSystem="local" code="GR%" displayName="GRANULOCYTE %" /> <statusCode code="completed" /> <effectiveTime value=" " /> <value unit="%" xsi:type="PQ" value="64" /> < referenceRange> <observationRange> <text>50-75</text> </observationRange> </referenceRange> </observation> </component> <component> <observation moodCode="EVN" classCode= "OBS"> <templateId root="06.08.840.1.267071.02.09.22.4.2" /> < id nullFlavor="NA" /> <code codeSystem="local" code="LY#" displayName= "LYMPHOCYTE #" /> <statusCode code="completed" /> < effectiveTime value="" /> <value unit="k/cumm" xsi:type="PQ " value="2.0" /> <referenceRange> <observationRange> <text>1.0-4.0</text> </observationRange> </ referenceRange> </observation> </component> <component> <observation moodCode="EVN" classCode="OBS"> <templateId root= "216.840.1.223060.22.4.2" /> <id nullFlavor="NA" /> < code codeSystem="local" code="LY%" displayName="LYMPHOCYTE %" /> <statusCode code="completed" /> <effectiveTime value="" /> <value unit="%" xsi:type="PQ" value="27" /> < referenceRange> <observationRange> <text>20-30</text> </observationRange> </referenceRange> </observation> </component> <component> <observation moodCode="EVN" classCode= "OBS"> <templateId root="216.840.1.012729.10.20.22.4.2" /> < id nullFlavor="NA" /> <code codeSystem="local" code="MCH" displayName= "MEAN CELL HGB" /> <statusCode code="completed" /> < effectiveTime value="195046058409" /> <value unit="pg" xsi:type="PQ" value="35.5" /> <interpretationCode codeSystem="local" code="*" /> <referenceRange> <observationRange> <text>27.0- 33.0</text> </observationRange> </referenceRange> </ observation> </component> <component> <observation moodCode= "EVN" classCode="OBS"> <templateId root="06.08.840.1.623697.10.4.2 " /> <id nullFlavor="NA" /> <code codeSystem="local" code= "MCHC" displayName="MEAN CELL HGB CONCENTRATION" /> <statusCode code= "completed" /> <effectiveTime value="117644770651" /> <value unit="g/dL" xsi:type="PQ" value="34.3" /> <referenceRange> < observationRange> <text>32.0-37.0</text> </ observationRange> </referenceRange> </observation> </ component> <component> <observation moodCode="EVN" classCode="OBS"> <templateId root="216.840.1.046132.10.2022.4.2" /> <id nullFlavor="NA" /> <code codeSystem="local" code="MCV" displayName= "MEAN CELL VOLUME" /> <statusCode code="completed" /> < effectiveTime value="" /> <value unit="fl" xsi:type="PQ" value="103.4" /> <interpretationCode codeSystem="local" code="*" /> <referenceRange> <observationRange> <text>80.0- 100.0</text> </observationRange> </referenceRange> </ observation> </component> <component> <observation moodCode= "EVN" classCode="OBS"> <templateId root="2.16.840.1.318484.02.09.22.4.2 " /> <id nullFlavor="NA" /> <code codeSystem="local" code="MO# " displayName="MONOCYTE #" /> <statusCode code="completed" /> <effectiveTime value="" /> <value unit="k/cumm" xsi:type= "PQ" value="0.6" /> <referenceRange> <observationRange> <text>0.1-1.0</text> </observationRange> </ referenceRange> </observation> </component> <component> <observation moodCode="EVN" classCode="OBS"> <templateId root= "216.840.1.228239.1022.4.2" /> <id nullFlavor="NA" /> < code codeSystem="local" code="MO%" displayName="MONOCYTE %" /> <statusCode code="completed" /> <effectiveTime value="" /> <value unit="%" xsi:type="PQ" value="8" /> < interpretationCode codeSystem="local" code="*" /> <referenceRange> <observationRange> <text>4-6</text> </ observationRange> </referenceRange> </observation> </ component> <component> <observation moodCode="EVN" classCode="OBS"> <templateId root="216.840.1.393754.10.2022.4.2" /> <id nullFlavor="NA" /> <code codeSystem="local" code="RBC" displayName=" RED BLOOD CELL" /> <statusCode code="completed" /> < effectiveTime value="479709743067" /> <value unit="m/cumm" xsi:type="PQ " value="3.52" /> <interpretationCode codeSystem="local" code="*" /> <referenceRange> <observationRange> <text>4.00- 6.00</text> </observationRange> </referenceRange> </ observation> </component> <component> <observation moodCode= "EVN" classCode="OBS"> <templateId root="16.840.1.336179.02.09.22.4.2 " /> <id nullFlavor="NA" /> <code codeSystem="local" code="RDW " displayName="RED CELL DISTRIBUTION WIDTH" /> <statusCode code= "completed" /> <effectiveTime value="858510935056" /> <value unit="%" xsi:type="PQ" value="13.4" /> <referenceRange> <observationRange> <text>11.0-15.6</text> </ observationRange> </referenceRange> </observation> </ component> <component> <observation moodCode="EVN" classCode="OBS"> <templateId root="216.840.1.272494.1022.4.2" /> <id nullFlavor="NA" /> <code codeSystem="local" code="WBC" displayName= "WHITE BLOOD CELL" /> <statusCode code="completed" /> < effectiveTime value="288774569410" /> <value unit="k/cumm" xsi:type="PQ " value="7.3" /> <referenceRange> <observationRange> <text>5.0-10.0</text> </observationRange> </ referenceRange> </observation> </component> <component> <observation moodCode="EVN" classCode="OBS"> <templateId root= "216.840.1.570854.02.09.22.4.2" /> <id nullFlavor="NA" /> < code codeSystem="local" code="HGBT" displayName="HEMOGLOBIN" /> < statusCode code="completed" /> <effectiveTime value="206351775164" /> <value unit="gm/dL" xsi:type="PQ" value="12.5" /> < referenceRange> <observationRange> <text>12.0-16.0</text > </observationRange> </referenceRange> </observation > </component> <component> <observation moodCode="EVN" classCode="OBS"> <templateId root="216.840.1.313936.02.09.22.4.2" /> <id nullFlavor="NA" /> <code codeSystem="local" code="HCTT" displayName="HEMATOCRIT" /> <statusCode code="completed" /> < effectiveTime value="036553546830" /> <value unit="%" xsi:type="PQ " value="36.4" /> <interpretationCode codeSystem="local" code="*" /> <referenceRange> <observationRange> <text>37.0- 47.0</text> </observationRange> </referenceRange> </ observation> </component> <component> <observation moodCode= "EVN" classCode="OBS"> <templateId root="216.840.1.395475.22.4.2 " /> <id nullFlavor="NA" /> <code codeSystem="local" code= "PLTT" displayName="PLATELET COUNT" /> <statusCode code="completed" /> <effectiveTime value="959388533663" /> <value unit="k/cumm" xsi:type="PQ" value="264" /> <referenceRange> < observationRange> <text>150-450</text> </ observationRange> </referenceRange> </observation> </ component> </organizer> </entry> <entry> <organizer moodCode="EVN" classCode="BATTERY"> <templateId root="06.08.840.1.687188.02.09.22.4.1" /> <id nullFlavor="NA" /> <code codeSystem="local" code="METABC" displayName="METABOLIC PANEL, COMPREHN" /> <statusCode code="completed" /> <component> <observation moodCode="EVN" classCode="OBS"> < templateId root="840.1.342288.02.09.22.4.2" /> <id nullFlavor="NA " /> <code codeSystem="local" code="K" displayName="POTASSIUM" /> <statusCode code="completed" /> <effectiveTime value="785041378479 " /> <value unit="mmol/L" xsi:type="PQ" value="3.8" /> < referenceRange> <observationRange> <text>3.5-5.3</text> </observationRange> </referenceRange> </observation > </component> <component> <observation moodCode="EVN" classCode="OBS"> <templateId root="840.1.430841.22.4.2" /> <id nullFlavor="NA" /> <code codeSystem="local" code="eGFR" displayName="EST GFR (MDRD)" /> <statusCode code="completed" /> <effectiveTime value="681438921159" /> <value unit="mL/min" xsi:type ="PQ" value="> 60" /> <referenceRange> <observationRange > <text>> 59</text> </observationRange> </ referenceRange> </observation> </component> <component> <observation moodCode="EVN" classCode="OBS"> <templateId root= "216.840.1.061996.10.20.22.4.2" /> <id nullFlavor="NA" /> < code codeSystem="local" code="GAP" displayName="ANION GAP" /> < statusCode code="completed" /> <effectiveTime value="487675395027" /> <value unit="mmol/L" xsi:type="PQ" value="12" /> < referenceRange> <observationRange> <text>5-15</text> </observationRange> </referenceRange> </observation> </component> <component> <observation moodCode="EVN" classCode= "OBS"> <templateId root="16.840.1.895975.10.20.22.4.2" /> < id nullFlavor="NA" /> <code codeSystem="local" code="eCrCl" displayName ="EST CrCl (CG)" /> <statusCode code="completed" /> < effectiveTime value="826523171846" /> <value unit="mL/min" xsi:type="PQ " value="> 60" /> <referenceRange> <observationRange> <text>> 59</text> </observationRange> </ referenceRange> </observation> </component> <component> <observation moodCode="EVN" classCode="OBS"> <templateId root= "16.840.1.376012.02.09.22.4.2" /> <id nullFlavor="NA" /> < code codeSystem="local" code="GLU" displayName="GLUCOSE" /> < statusCode code="completed" /> <effectiveTime value="840001254509" /> <value unit="mg/dL" xsi:type="PQ" value="97" /> < referenceRange> <observationRange> <text>70-99</text> </observationRange> </referenceRange> </observation> </component> <component> <observation moodCode="EVN" classCode= "OBS"> <templateId root="216.840.1.457743.02.09.22.4.2" /> < id nullFlavor="NA" /> <code codeSystem="local" code="CA" displayName= "CALCIUM" /> <statusCode code="completed" /> <effectiveTime value="979195019442" /> <value unit="mg/dL" xsi:type="PQ" value="9.6" / > <referenceRange> <observationRange> <text>8.5 -10.1</text> </observationRange> </referenceRange> </ observation> </component> <component> <observation moodCode= "EVN" classCode="OBS"> <templateId root="16.840.1.836412.22.4.2 " /> <id nullFlavor="NA" /> <code codeSystem="local" code="BUN " displayName="BLOOD UREA NITROGEN" /> <statusCode code="completed" /> <effectiveTime value="" /> <value unit="mg/dL" xsi:type="PQ" value="13" /> <referenceRange> < observationRange> <text>7-20</text> </observationRange> </referenceRange> </observation> </component> < component> <observation moodCode="EVN" classCode="OBS"> < templateId root="216.840.1.337083.10.20.22.4.2" /> <id nullFlavor="NA " /> <code codeSystem="local" code="CREAT" displayName="CREATININE" /> <statusCode code="completed" /> <effectiveTime value= "" /> <value unit="mg/dL" xsi:type="PQ" value="0.8" /> <referenceRange> <observationRange> <text>0.6-1.0< /text> </observationRange> </referenceRange> </ observation> </component> <component> <observation moodCode= "EVN" classCode="OBS"> <templateId root="216.840.1.821524.10...4.2 " /> <id nullFlavor="NA" /> <code codeSystem="local" code="NA " displayName="SODIUM" /> <statusCode code="completed" /> < effectiveTime value="" /> <value unit="mmol/L" xsi:type="PQ " value="141" /> <referenceRange> <observationRange> <text>135-148</text> </observationRange> </ referenceRange> </observation> </component> <component> <observation moodCode="EVN" classCode="OBS"> <templateId root= "16.840.1.221500.10.20.22.4.2" /> <id nullFlavor="NA" /> < code codeSystem="local" code="CL" displayName="CHLORIDE" /> < statusCode code="completed" /> <effectiveTime value="660661437475" /> <value unit="mmol/L" xsi:type="PQ" value="104" /> < referenceRange> <observationRange> <text>98-110</text> </observationRange> </referenceRange> </observation> </component> <component> <observation moodCode="EVN" classCode ="OBS"> <templateId root="216.840.1.351381.10..4.2" /> < id nullFlavor="NA" /> <code codeSystem="local" code="AST" displayName= "AST/SGOT" /> <statusCode code="completed" /> <effectiveTime value="" /> <value unit="Units/L" xsi:type="PQ" value="17" /> <referenceRange> <observationRange> <text>10 -37</text> </observationRange> </referenceRange> </ observation> </component> <component> <observation moodCode= "EVN" classCode="OBS"> <templateId root="216.840.1.446428.02.09.22.4.2 " /> <id nullFlavor="NA" /> <code codeSystem="local" code="ALT " displayName="ALT/SGPT" /> <statusCode code="completed" /> < effectiveTime value="" /> <value unit="Units/L" xsi:type= "PQ" value="21" /> <referenceRange> <observationRange> <text>< 66</text> </observationRange> </ referenceRange> </observation> </component> <component> <observation moodCode="EVN" classCode="OBS"> <templateId root= "216.840.1.897617...4.2" /> <id nullFlavor="NA" /> < code codeSystem="local" code="CO2" displayName="CARBON DIOXIDE" /> < statusCode code="completed" /> <effectiveTime value="103507623438" /> <value unit="mmol/L" xsi:type="PQ" value="25" /> < referenceRange> <observationRange> <text>21-32</text> </observationRange> </referenceRange> </observation> </component> <component> <observation moodCode="EVN" classCode= "OBS"> <templateId root="06.08.840.1.967776.10.2022.4.2" /> < id nullFlavor="NA" /> <code codeSystem="local" code="TP" displayName= "TOTAL PROTEIN" /> <statusCode code="completed" /> < effectiveTime value="468409939983" /> <value unit="gm/dL" xsi:type="PQ " value="8.0" /> <referenceRange> <observationRange> <text>6.4-8.2</text> </observationRange> </ referenceRange> </observation> </component> <component> <observation moodCode="EVN" classCode="OBS"> <templateId root= "840.1.873220.1022.4.2" /> <id nullFlavor="NA" /> < code codeSystem="local" code="ALB" displayName="ALBUMIN" /> < statusCode code="completed" /> <effectiveTime value="021660135158" /> <value unit="gm/dL" xsi:type="PQ" value="4.2" /> < referenceRange> <observationRange> <text>3.4-5.0</text> </observationRange> </referenceRange> </observation > </component> <component> <observation moodCode="EVN" classCode="OBS"> <templateId root="06.08.840.1.230691.102022.4.2" /> <id nullFlavor="NA" /> <code codeSystem="local" code="BILTOT" displayName="BILI TOTAL" /> <statusCode code="completed" /> < effectiveTime value="827746783755" /> <value unit="mg/dL" xsi:type="PQ " value="0.2" /> <referenceRange> <observationRange> <text>0.0-1.0</text> </observationRange> </ referenceRange> </observation> </component> <component> <observation moodCode="EVN" classCode="OBS"> <templateId root= "06.08.840.1.809540.02.09.22.4.2" /> <id nullFlavor="NA" /> < code codeSystem="local" code="ALKP" displayName="ALKALINE PHOSPHATASE TOTAL" /> <statusCode code="completed" /> <effectiveTime value= "954012398197" /> <value unit="IU/L" xsi:type="PQ" value="64" /> <referenceRange> <observationRange> <text>45-117</ text> </observationRange> </referenceRange> </ observation> </component> </organizer> </entry> <entry> <organizer moodCode="EVN" classCode="BATTERY"> <templateId root= "06.08.840.1.506814.02.09.22.4.1" /> <id nullFlavor="NA" /> <code codeSystem="local" code="LIP" displayName="LIPASE" /> <statusCode code= "completed" /> <component> <observation moodCode="EVN" classCode= "OBS"> <templateId root="06.08.840.1.941816.1022.4.2" /> < id nullFlavor="NA" /> <code codeSystem="local" code="LIP" displayName= "LIPASE" /> <statusCode code="completed" /> <effectiveTime value="017582916532" /> <value unit="Units/L" xsi:type="PQ" value="123 " /> <referenceRange> <observationRange> <text> 73-393</text> </observationRange> </referenceRange> < /observation> </component> </organizer> </entry> <entry> < organizer moodCode="EVN" classCode="BATTERY"> <templateId root= "216.840.1.039325.10..22.4.1" /> <id nullFlavor="NA" /> <code codeSystem="local" code="UA" displayName="URINALYSIS, ROUTINE" /> < statusCode code="completed" /> <component> <observation moodCode= "EVN" classCode="OBS"> <templateId root="216.840.1.327764.10..22.4.2 " /> <id nullFlavor="NA" /> <code codeSystem="local" code= "LEUESU" displayName="UA LEUKOCYTE ESTERASE DIPSTICK" /> <statusCode code="completed" /> <effectiveTime value="858813816355" /> < value unit="" xsi:type="PQ" value="NEGATIVE" /> <referenceRange> <observationRange> <text>NEGATIVE</text> </ observationRange> </referenceRange> </observation> </ component> <component> <observation moodCode="EVN" classCode="OBS"> <templateId root="216.840.1.027850.10...4.2" /> <id nullFlavor="NA" /> <code codeSystem="local" code="NITRIU" displayName= "UA NITRITE DIPSTICK" /> <statusCode code="completed" /> < effectiveTime value="330849795051" /> <value unit="" xsi:type="PQ" value="NEGATIVE" /> <referenceRange> <observationRange> <text>NEGATIVE</text> </observationRange> </ referenceRange> </observation> </component> <component> <observation moodCode="EVN" classCode="OBS"> <templateId root= "216.840.1.694231.10..22.4.2" /> <id nullFlavor="NA" /> < code codeSystem="local" code="PROTEIU" displayName="UA PROTEIN DIPSTICK" /> <statusCode code="completed" /> <effectiveTime value= "" /> <value unit="" xsi:type="PQ" value="NEGATIVE" /> <referenceRange> <observationRange> <text>NEGATIVE </text> </observationRange> </referenceRange> </ observation> </component> <component> <observation moodCode= "EVN" classCode="OBS"> <templateId root="16.840.1.245869.10..4.2 " /> <id nullFlavor="NA" /> <code codeSystem="local" code= "DGLUU" displayName="UA GLUCOSE DIPSTICK" /> <statusCode code= "completed" /> <effectiveTime value="" /> <value unit="" xsi:type="PQ" value="NEGATIVE" /> <referenceRange> < observationRange> <text>NEGATIVE</text> </ observationRange> </referenceRange> </observation> </ component> <component> <observation moodCode="EVN" classCode="OBS"> <templateId root="16.840.1.388712.10.22.4.2" /> <id nullFlavor="NA" /> <code codeSystem="local" code="KETONU" displayName= "UA KETONE DIPSTICK" /> <statusCode code="completed" /> < effectiveTime value="" /> <value unit="" xsi:type="PQ" value="NEGATIVE" /> <referenceRange> <observationRange> <text>NEGATIVE</text> </observationRange> </ referenceRange> </observation> </component> <component> <observation moodCode="EVN" classCode="OBS"> <templateId root= "216.840.1.093998.02.09.22.4.2" /> <id nullFlavor="NA" /> < code codeSystem="local" code="UROBILU" displayName="UA UROBILINOGEN DIPSTICK" / > <statusCode code="completed" /> <effectiveTime value= "" /> <value unit="" xsi:type="PQ" value="NORMAL" /> <referenceRange> <observationRange> <text>NORMAL</ text> </observationRange> </referenceRange> </ observation> </component> <component> <observation moodCode= "EVN" classCode="OBS"> <templateId root="06.08.840.1.600222.02.09.224.2 " /> <id nullFlavor="NA" /> <code codeSystem="local" code= "BILU" displayName="UA BILIRUBIN DIPSTICK" /> <statusCode code= "completed" /> <effectiveTime value="" /> <value unit="" xsi:type="PQ" value="NEGATIVE" /> <referenceRange> < observationRange> <text>NEGATIVE</text> </ observationRange> </referenceRange> </observation> </ component> <component> <observation moodCode="EVN" classCode="OBS"> <templateId root="16.840.1.005577.10.4.2" /> <id nullFlavor="NA" /> <code codeSystem="local" code="SPENCER" displayName="UA BLOOD DIPSTICK" /> <statusCode code="completed" /> < effectiveTime value="" /> <value unit="" xsi:type="PQ" value="NEGATIVE" /> <referenceRange> <observationRange> <text>NEGATIVE</text> </observationRange> </ referenceRange> </observation> </component> <component> <observation moodCode="EVN" classCode="OBS"> <templateId root= "06.08.840.1.485236.10..22.4.2" /> <id nullFlavor="NA" /> < code codeSystem="local" code="SPGRU" displayName="UA SPECIFIC GRAVITY" /> <statusCode code="completed" /> <effectiveTime value="205721513410 " /> <value unit="" xsi:type="PQ" value="1.015" /> < referenceRange> <observationRange> <text>1.015-1.025</ text> </observationRange> </referenceRange> </ observation> </component> <component> <observation moodCode= "EVN" classCode="OBS"> <templateId root="06.08.840.1.234768...4.2 " /> <id nullFlavor="NA" /> <code codeSystem="local" code="FEROZ " displayName="UR PH" /> <statusCode code="completed" /> < effectiveTime value="962553487678" /> <value unit="" xsi:type="PQ" value="6.0" /> <referenceRange> <observationRange> <text>5.0-7.0</text> </observationRange> </ referenceRange> </observation> </component> </organizer> </entry > <entry> <organizer moodCode="EVN" classCode="BATTERY"> <templateId root="06.08.840.1.836755.10.20.22.4.1" /> <id nullFlavor="NA" /> <code codeSystem="local" code="PREGU" displayName="UR TEST" /> < statusCode code="completed" /> <component> <observation moodCode= "EVN" classCode="OBS"> <templateId root="216.840.1.460924.10..22.4.2 " /> <id nullFlavor="NA" /> <code codeSystem="local" code= "PREGU" displayName="UR TEST" /> <statusCode code="completed " /> <effectiveTime value="172396814553" /> <value unit="" xsi :type="PQ" value="NEGATIVE" /> <referenceRange> < observationRange> <text>NEGATIVE</text> </ observationRange> </referenceRange> </observation> </ component> </organizer> </entry> <entry> <organizer moodCode="EVN" classCode="BATTERY"> <templateId root="216.840.1.562285.10..22.4.1" /> <id nullFlavor="NA" /> <code codeSystem="local" code="CBCD" displayName="CBC W/DIFF" /> <statusCode code="completed" /> <component > <observation moodCode="EVN" classCode="OBS"> <templateId root= "216.840.1.258656.10..22.4.2" /> <id nullFlavor="NA" /> < code codeSystem="local" code="GR#" displayName="GRANULOCYTE #" /> < statusCode code="completed" /> <effectiveTime value="878456591779" /> <value unit="k/cumm" xsi:type="PQ" value="8.2" /> < referenceRange> <observationRange> <text>2.0-9.0</text> </observationRange> </referenceRange> </observation > </component> <component> <observation moodCode="EVN" classCode="OBS"> <templateId root="16.840.1.428779.10.20.22.4.2" /> <id nullFlavor="NA" /> <code codeSystem="local" code="GR% " displayName="GRANULOCYTE %" /> <statusCode code="completed" /> <effectiveTime value="124111264743" /> <value unit="%" xsi: type="PQ" value="76" /> <interpretationCode codeSystem="local" code="* " /> <referenceRange> <observationRange> <text> 50-75</text> </observationRange> </referenceRange> </ observation> </component> <component> <observation moodCode= "EVN" classCode="OBS"> <templateId root="06.08.840.1.777052.10.22.4.2 " /> <id nullFlavor="NA" /> <code codeSystem="local" code="LY# " displayName="LYMPHOCYTE #" /> <statusCode code="completed" /> <effectiveTime value="784023708799" /> <value unit="k/cumm" xsi:type ="PQ" value="2.2" /> <referenceRange> <observationRange> <text>1.0-4.0</text> </observationRange> </ referenceRange> </observation> </component> <component> <observation moodCode="EVN" classCode="OBS"> <templateId root= "06.08.840.1.059026.10.2022.4.2" /> <id nullFlavor="NA" /> < code codeSystem="local" code="LY%" displayName="LYMPHOCYTE %" /> <statusCode code="completed" /> <effectiveTime value="385025533618" /> <value unit="%" xsi:type="PQ" value="20" /> < referenceRange> <observationRange> <text>20-30</text> </observationRange> </referenceRange> </observation> </component> <component> <observation moodCode="EVN" classCode= "OBS"> <templateId root="216.840.1.216219.10.20.22.4.2" /> < id nullFlavor="NA" /> <code codeSystem="local" code="MCH" displayName= "MEAN CELL HGB" /> <statusCode code="completed" /> < effectiveTime value="899061212666" /> <value unit="pg" xsi:type="PQ" value="34.8" /> <interpretationCode codeSystem="local" code="*" /> <referenceRange> <observationRange> <text>27.0- 33.0</text> </observationRange> </referenceRange> </ observation> </component> <component> <observation moodCode= "EVN" classCode="OBS"> <templateId root="840.1.677686.10..4.2 " /> <id nullFlavor="NA" /> <code codeSystem="local" code= "MCHC" displayName="MEAN CELL HGB CONCENTRATION" /> <statusCode code= "completed" /> <effectiveTime value="859676044735" /> <value unit="g/dL" xsi:type="PQ" value="34.1" /> <referenceRange> < observationRange> <text>32.0-37.0</text> </ observationRange> </referenceRange> </observation> </ component> <component> <observation moodCode="EVN" classCode="OBS"> <templateId root="06.08.840.1.087315.10.20.22.4.2" /> <id nullFlavor="NA" /> <code codeSystem="local" code="MCV" displayName= "MEAN CELL VOLUME" /> <statusCode code="completed" /> < effectiveTime value="586159847169" /> <value unit="fl" xsi:type="PQ" value="102.1" /> <interpretationCode codeSystem="local" code="*" /> <referenceRange> <observationRange> <text>80.0- 100.0</text> </observationRange> </referenceRange> </ observation> </component> <component> <observation moodCode= "EVN" classCode="OBS"> <templateId root="216.840.1.446791.10.20.22.4.2 " /> <id nullFlavor="NA" /> <code codeSystem="local" code="MO# " displayName="MONOCYTE #" /> <statusCode code="completed" /> <effectiveTime value="398902856984" /> <value unit="k/cumm" xsi:type= "PQ" value="0.4" /> <referenceRange> <observationRange> <text>0.1-1.0</text> </observationRange> </ referenceRange> </observation> </component> <component> <observation moodCode="EVN" classCode="OBS"> <templateId root= "216.840.1.674787.10.20.22.4.2" /> <id nullFlavor="NA" /> < code codeSystem="local" code="MO%" displayName="MONOCYTE %" /> <statusCode code="completed" /> <effectiveTime value="308011132573" /> <value unit="%" xsi:type="PQ" value="4" /> < referenceRange> <observationRange> <text>4-6</text> </observationRange> </referenceRange> </observation> </component> <component> <observation moodCode="EVN" classCode= "OBS"> <templateId root="16.840.1.255424.10.20.22.4.2" /> < id nullFlavor="NA" /> <code codeSystem="local" code="RBC" displayName= "RED BLOOD CELL" /> <statusCode code="completed" /> < effectiveTime value="237888259759" /> <value unit="m/cumm" xsi:type="PQ " value="3.79" /> <interpretationCode codeSystem="local" code="*" /> <referenceRange> <observationRange> <text>4.00- 6.00</text> </observationRange> </referenceRange> </ observation> </component> <component> <observation moodCode= "EVN" classCode="OBS"> <templateId root="216.840.1.849866...4.2 " /> <id nullFlavor="NA" /> <code codeSystem="local" code="RDW " displayName="RED CELL DISTRIBUTION WIDTH" /> <statusCode code= "completed" /> <effectiveTime value="367647244246" /> <value unit="%" xsi:type="PQ" value="13.3" /> <referenceRange> <observationRange> <text>11.0-15.6</text> </ observationRange> </referenceRange> </observation> </ component> <component> <observation moodCode="EVN" classCode="OBS"> <templateId root="06.08.840.1.996366.10.20.22.4.2" /> <id nullFlavor="NA" /> <code codeSystem="local" code="WBC" displayName= "WHITE BLOOD CELL" /> <statusCode code="completed" /> < effectiveTime value="109961309905" /> <value unit="k/cumm" xsi:type="PQ " value="10.9" /> <interpretationCode codeSystem="local" code="*" /> <referenceRange> <observationRange> <text>5.0- 10.0</text> </observationRange> </referenceRange> </ observation> </component> <component> <observation moodCode= "EVN" classCode="OBS"> <templateId root="216.840.1.556167.10.20.22.4.2 " /> <id nullFlavor="NA" /> <code codeSystem="local" code= "HGBT" displayName="HEMOGLOBIN" /> <statusCode code="completed" /> <effectiveTime value="507340142196" /> <value unit="gm/dL" xsi: type="PQ" value="13.2" /> <referenceRange> <observationRange > <text>12.0-16.0</text> </observationRange> </ referenceRange> </observation> </component> <component> <observation moodCode="EVN" classCode="OBS"> <templateId root= "06.08.840.1.644859.22.4.2" /> <id nullFlavor="NA" /> < code codeSystem="local" code="HCTT" displayName="HEMATOCRIT" /> < statusCode code="completed" /> <effectiveTime value="016479220985" /> <value unit="%" xsi:type="PQ" value="38.7" /> < referenceRange> <observationRange> <text>37.0-47.0</text > </observationRange> </referenceRange> </observation > </component> <component> <observation moodCode="EVN" classCode="OBS"> <templateId root="16.840.1.040895.10.20.22.4.2" /> <id nullFlavor="NA" /> <code codeSystem="local" code="PLTT" displayName="PLATELET COUNT" /> <statusCode code="completed" /> <effectiveTime value="622246369721" /> <value unit="k/cumm" xsi:type ="PQ" value="309" /> <referenceRange> <observationRange> <text>150-450</text> </observationRange> </ referenceRange> </observation> </component> </organizer> </entry > <entry> <organizer moodCode="EVN" classCode="BATTERY"> <templateId root="06.08.840.1.564393.10...4.1" /> <id nullFlavor="NA" /> <code codeSystem="local" code="METABC" displayName="METABOLIC PANEL, COMPREHN" /> <statusCode code="completed" /> <component> <observation moodCode= "EVN" classCode="OBS"> <templateId root="06.08.840.1.726128.10...4.2 " /> <id nullFlavor="NA" /> <code codeSystem="local" code="K" displayName="POTASSIUM" /> <statusCode code="completed" /> < effectiveTime value="911038642358" /> <value unit="mmol/L" xsi:type="PQ " value="3.1" /> <interpretationCode codeSystem="local" code="*" /> <referenceRange> <observationRange> <text>3.5-5.3 </text> </observationRange> </referenceRange> </ observation> </component> <component> <observation moodCode= "EVN" classCode="OBS"> <templateId root="06.08.840.1.455171....4.2 " /> <id nullFlavor="NA" /> <code codeSystem="local" code= "eGFR" displayName="EST GFR (MDRD)" /> <statusCode code="completed" /> <effectiveTime value="468081731752" /> <value unit="mL/min" xsi:type="PQ" value="> 60" /> <referenceRange> < observationRange> <text>> 59</text> </ observationRange> </referenceRange> </observation> </ component> <component> <observation moodCode="EVN" classCode="OBS"> <templateId root="216.840.1.181843.10.4.2" /> <id nullFlavor="NA" /> <code codeSystem="local" code="GAP" displayName= "ANION GAP" /> <statusCode code="completed" /> <effectiveTime value="456769100602" /> <value unit="mmol/L" xsi:type="PQ" value="15" / > <referenceRange> <observationRange> <text>5- 15</text> </observationRange> </referenceRange> </ observation> </component> <component> <observation moodCode= "EVN" classCode="OBS"> <templateId root="06.08.840.1.524590.02.09.22.4.2 " /> <id nullFlavor="NA" /> <code codeSystem="local" code= "eCrCl" displayName="EST CrCl (CG)" /> <statusCode code="completed" /> <effectiveTime value="510054381546" /> <value unit="mL/min" xsi:type="PQ" value="> 60" /> <referenceRange> < observationRange> <text>> 59</text> </ observationRange> </referenceRange> </observation> </ component> <component> <observation moodCode="EVN" classCode="OBS"> <templateId root="216.840.1.288743...4.2" /> <id nullFlavor="NA" /> <code codeSystem="local" code="GLU" displayName= "GLUCOSE" /> <statusCode code="completed" /> <effectiveTime value="228592012770" /> <value unit="mg/dL" xsi:type="PQ" value="134" / > <interpretationCode codeSystem="local" code="*" /> < referenceRange> <observationRange> <text>70-99</text> </observationRange> </referenceRange> </observation> </component> <component> <observation moodCode="EVN" classCode= "OBS"> <templateId root="2.16.840.1.545740.10..22.4.2" /> < id nullFlavor="NA" /> <code codeSystem="local" code="CA" displayName= "CALCIUM" /> <statusCode code="completed" /> <effectiveTime value="439239605629" /> <value unit="mg/dL" xsi:type="PQ" value="9.8" / > <referenceRange> <observationRange> <text>8.5 -10.1</text> </observationRange> </referenceRange> </ observation> </component> <component> <observation moodCode= "EVN" classCode="OBS"> <templateId root="2.16.840.1.099783...22.4.2 " /> <id nullFlavor="NA" /> <code codeSystem="local" code="BUN " displayName="BLOOD UREA NITROGEN" /> <statusCode code="completed" /> <effectiveTime value="756612976670" /> <value unit="mg/dL" xsi:type="PQ" value="12" /> <referenceRange> < observationRange> <text>7-20</text> </observationRange> </referenceRange> </observation> </component> < component> <observation moodCode="EVN" classCode="OBS"> < templateId root="16.840.1.960865.10.20.22.4.2" /> <id nullFlavor="NA " /> <code codeSystem="local" code="CREAT" displayName="CREATININE" /> <statusCode code="completed" /> <effectiveTime value= "821290744501" /> <value unit="mg/dL" xsi:type="PQ" value="0.7" /> <referenceRange> <observationRange> <text>0.6-1.0< /text> </observationRange> </referenceRange> </ observation> </component> <component> <observation moodCode= "EVN" classCode="OBS"> <templateId root="16.840.1.309743.10..22.4.2 " /> <id nullFlavor="NA" /> <code codeSystem="local" code="NA " displayName="SODIUM" /> <statusCode code="completed" /> < effectiveTime value="929706456934" /> <value unit="mmol/L" xsi:type="PQ " value="140" /> <referenceRange> <observationRange> <text>135-148</text> </observationRange> </ referenceRange> </observation> </component> <component> <observation moodCode="EVN" classCode="OBS"> <templateId root= "06.08.840.1.620202.10.20.22.4.2" /> <id nullFlavor="NA" /> < code codeSystem="local" code="CL" displayName="CHLORIDE" /> < statusCode code="completed" /> <effectiveTime value="912123094462" /> <value unit="mmol/L" xsi:type="PQ" value="103" /> < referenceRange> <observationRange> <text>98-110</text> </observationRange> </referenceRange> </observation> </component> <component> <observation moodCode="EVN" classCode ="OBS"> <templateId root="216.840.1.227649.10..4.2" /> < id nullFlavor="NA" /> <code codeSystem="local" code="AST" displayName= "AST/SGOT" /> <statusCode code="completed" /> <effectiveTime value="070354022893" /> <value unit="Units/L" xsi:type="PQ" value="14" /> <referenceRange> <observationRange> <text>10 -37</text> </observationRange> </referenceRange> </ observation> </component> <component> <observation moodCode= "EVN" classCode="OBS"> <templateId root="216.840.1.346282.02.09.22.4.2 " /> <id nullFlavor="NA" /> <code codeSystem="local" code="ALT " displayName="ALT/SGPT" /> <statusCode code="completed" /> < effectiveTime value="910423053536" /> <value unit="Units/L" xsi:type= "PQ" value="19" /> <referenceRange> <observationRange> <text>< 66</text> </observationRange> </ referenceRange> </observation> </component> <component> <observation moodCode="EVN" classCode="OBS"> <templateId root= "216.840.1.108081.10.22.4.2" /> <id nullFlavor="NA" /> < code codeSystem="local" code="CO2" displayName="CARBON DIOXIDE" /> < statusCode code="completed" /> <effectiveTime value="696208513054" /> <value unit="mmol/L" xsi:type="PQ" value="22" /> < referenceRange> <observationRange> <text>21-32</text> </observationRange> </referenceRange> </observation> </component> <component> <observation moodCode="EVN" classCode= "OBS"> <templateId root="06.08.840.1.131042.10.20.22.4.2" /> < id nullFlavor="NA" /> <code codeSystem="local" code="TP" displayName= "TOTAL PROTEIN" /> <statusCode code="completed" /> < effectiveTime value="591497092424" /> <value unit="gm/dL" xsi:type="PQ " value="8.5" /> <interpretationCode codeSystem="local" code="*" /> <referenceRange> <observationRange> <text>6.4-8.2 </text> </observationRange> </referenceRange> </ observation> </component> <component> <observation moodCode= "EVN" classCode="OBS"> <templateId root="840.1.608110.1022.4.2 " /> <id nullFlavor="NA" /> <code codeSystem="local" code="ALB " displayName="ALBUMIN" /> <statusCode code="completed" /> < effectiveTime value="627785257340" /> <value unit="gm/dL" xsi:type="PQ " value="4.3" /> <referenceRange> <observationRange> <text>3.4-5.0</text> </observationRange> </ referenceRange> </observation> </component> <component> <observation moodCode="EVN" classCode="OBS"> <templateId root= "06.08.840.1.485988.10.20.22.4.2" /> <id nullFlavor="NA" /> < code codeSystem="local" code="BILTOT" displayName="BILI TOTAL" /> < statusCode code="completed" /> <effectiveTime value="890149910533" /> <value unit="mg/dL" xsi:type="PQ" value="0.4" /> < referenceRange> <observationRange> <text>0.0-1.0</text> </observationRange> </referenceRange> </observation > </component> <component> <observation moodCode="EVN" classCode="OBS"> <templateId root="06.08.840.1.055588.10..4.2" /> <id nullFlavor="NA" /> <code codeSystem="local" code="ALKP" displayName="ALKALINE PHOSPHATASE TOTAL" /> <statusCode code="completed " /> <effectiveTime value="442115412865" /> <value unit="IU/L " xsi:type="PQ" value="66" /> <referenceRange> < observationRange> <text>45-117</text> </observationRange > </referenceRange> </observation> </component> </ organizer> </entry> <entry> <organizer moodCode="EVN" classCode="BATTERY"> <templateId root="06.08.840.1.658052.10..4.1" /> <id nullFlavor= "NA" /> <code codeSystem="local" code="WET" displayName="WET MOUNT" /> <statusCode code="completed" /> <component> <observation moodCode= "EVN" classCode="OBS"> <templateId root="06.08.840.1.023021.10..4.2 " /> <id nullFlavor="NA" /> <code codeSystem="local" code="MB " displayName="Microbiology" /> <statusCode code="completed" /> <effectiveTime value="722333458500" /> <value xsi:type="ST" value="< pre><b>WET MOUNT</b> See BelowWET MOUNT(F) Adele Date/Time: 08/2016 18:03 Karen Date/Time: // :SOURCE: CERVIXSPEC DESC: See BelowWET MOUNT(F) Adele Date/Time: 2016 18:03 Karen Date/Time: 02/25/2017 18:27SOURCE : CERVIXSPEC DESC: CLUE CELLSNO CLUE CELLS SEENOTHERBACTERIA 3+TRICHOMONASNO TRICHOMONAS SEENWBCFEW WBCYEASTNO YEAST SEENFRANCISCAN [facility] [place] [address]</pre>" /> <referenceRange> < observationRange> <text /> </observationRange> </referenceRange> </observation> </component> </organizer> </ entry> <entry> <organizer moodCode="EVN" classCode="BATTERY"> < templateId root="2.16.840.1.836405.10.20.22.4.1" /> <id nullFlavor="NA" /> <code codeSystem="local" code="PREGN" displayName=" Screen, Urine NPT" /> <statusCode code="completed" /> <component> < observation moodCode="EVN" classCode="OBS"> <templateId root= "2.16.840.1.228205.10.20.22.4.2" /> <id nullFlavor="NA" /> < code codeSystem="local" code="PREGN" displayName=" Screen, Urine NPT" / > <statusCode code="completed" /> <effectiveTime value= "911757250785" /> <value unit="NA" xsi:type="PQ" value="Negative" /> <referenceRange> <observationRange> <text /> </observationRange> </referenceRange> </observation> </component> </organizer> </entry> <entry> <organizer moodCode="EVN " classCode="BATTERY"> <templateId root="06.08.840.1.974601.02.09.22.4.1" / > <id nullFlavor="NA" /> <code codeSystem="local" code="CBCWD" displayName="CBC With Platelet and Differential" /> <statusCode code= "completed" /> <component> <observation moodCode="EVN" classCode= "OBS"> <templateId root="840.1.765087.02.09.22.4.2" /> < id nullFlavor="NA" /> <code codeSystem="local" code="ABASR" displayName ="Absolute Basophils" /> <statusCode code="completed" /> < effectiveTime value="" /> <value unit="10*3/uL" xsi:type= "PQ" value="0.02" /> <referenceRange> <observationRange> <text>0.00-0.20</text> </observationRange> </ referenceRange> </observation> </component> <component> <observation moodCode="EVN" classCode="OBS"> <templateId root= "840.1.143073.02.09.22.4.2" /> <id nullFlavor="NA" /> < code codeSystem="local" code="AEOSR" displayName="Absolute Eosinophils" /> <statusCode code="completed" /> <effectiveTime value="872008083854 " /> <value unit="10*3/uL" xsi:type="PQ" value="0.02" /> < referenceRange> <observationRange> <text>0.00-0.50</text > </observationRange> </referenceRange> </observation > </component> <component> <observation moodCode="EVN" classCode="OBS"> <templateId root="06.08.840.1.266442.02.09.224.2" /> <id nullFlavor="NA" /> <code codeSystem="local" code="ALYMR" displayName="Absolute Lymphocytes" /> <statusCode code="completed" /> <effectiveTime value="" /> <value unit="10*3/uL" xsi:type="PQ" value="2.13" /> <referenceRange> < observationRange> <text>0.80-3.30</text> </ observationRange> </referenceRange> </observation> </ component> <component> <observation moodCode="EVN" classCode="OBS"> <templateId root="2.16.840.1.052295.02.09.224.2" /> <id nullFlavor="NA" /> <code codeSystem="local" code="AMONR" displayName= "Absolute Monocytes" /> <statusCode code="completed" /> < effectiveTime value="" /> <value unit="10*3/uL" xsi:type= "PQ" value="0.53" /> <referenceRange> <observationRange> <text>0.30-1.00</text> </observationRange> </ referenceRange> </observation> </component> <component> <observation moodCode="EVN" classCode="OBS"> <templateId root= "2.16.840.1.746393.02.09.22.4.2" /> <id nullFlavor="NA" /> < code codeSystem="local" code="ASEGR" displayName="Absolute Neutrophils" /> <statusCode code="completed" /> <effectiveTime value="466121764284 " /> <value unit="10*3/uL" xsi:type="PQ" value="6.22" /> < referenceRange> <observationRange> <text>1.90-7.00</text > </observationRange> </referenceRange> </observation > </component> <component> <observation moodCode="EVN" classCode="OBS"> <templateId root="216.840.1.025917.10.22.4.2" /> <id nullFlavor="NA" /> <code codeSystem="local" code="BASOR" displayName="Basophils" /> <statusCode code="completed" /> < effectiveTime value="065882709111" /> <value unit="%" xsi:type="PQ " value="0" /> <referenceRange> <observationRange> <text>0-2</text> </observationRange> </referenceRange> </observation> </component> <component> <observation moodCode="EVN" classCode="OBS"> <templateId root= "216.840.1.749867.02.09.22.4.2" /> <id nullFlavor="NA" /> < code codeSystem="local" code="EOSR" displayName="Eosinophils" /> < statusCode code="completed" /> <effectiveTime value="" /> <value unit="%" xsi:type="PQ" value="0" /> <referenceRange > <observationRange> <text>0-4</text> </ observationRange> </referenceRange> </observation> </ component> <component> <observation moodCode="EVN" classCode="OBS"> <templateId root="16.840.1.108172.102022.4.2" /> <id nullFlavor="NA" /> <code codeSystem="local" code="HCT" displayName="HCT " /> <statusCode code="completed" /> <effectiveTime value= "444023483063" /> <value unit="%" xsi:type="PQ" value="40.7" /> <referenceRange> <observationRange> <text>37.0- 47.0</text> </observationRange> </referenceRange> </ observation> </component> <component> <observation moodCode= "EVN" classCode="OBS"> <templateId root="216.840.1.793580.10...4.2 " /> <id nullFlavor="NA" /> <code codeSystem="local" code="HGB " displayName="HGB" /> <statusCode code="completed" /> < effectiveTime value="407587886664" /> <value unit="g/dL" xsi:type="PQ" value="14.0" /> <referenceRange> <observationRange> <text>12.0-16.0</text> </observationRange> </ referenceRange> </observation> </component> <component> <observation moodCode="EVN" classCode="OBS"> <templateId root= "06.08.840.1.227706.10..4.2" /> <id nullFlavor="NA" /> < code codeSystem="local" code="IMGA" displayName="Immature Granulocytes" /> <statusCode code="completed" /> <effectiveTime value="213140091058 " /> <value unit="%" xsi:type="PQ" value="0.2" /> < referenceRange> <observationRange> <text>0.0-1.0</text> </observationRange> </referenceRange> </observation > </component> <component> <observation moodCode="EVN" classCode="OBS"> <templateId root="16.840.1.871173.10...4.2" /> <id nullFlavor="NA" /> <code codeSystem="local" code="LYMPR" displayName="Lymphocytes" /> <statusCode code="completed" /> < effectiveTime value="292398868173" /> <value unit="%" xsi:type="PQ " value="24" /> <referenceRange> <observationRange> <text>20-46</text> </observationRange> </ referenceRange> </observation> </component> <component> <observation moodCode="EVN" classCode="OBS"> <templateId root= "216.840.1.318299.02.09.22.4.2" /> <id nullFlavor="NA" /> < code codeSystem="local" code="MCH" displayName="MCH" /> <statusCode code="completed" /> <effectiveTime value="513064269606" /> < value unit="pg" xsi:type="PQ" value="34.4" /> <interpretationCode codeSystem="local" code="*" /> <referenceRange> < observationRange> <text>27.0-32.0</text> </ observationRange> </referenceRange> </observation> </ component> <component> <observation moodCode="EVN" classCode="OBS"> <templateId root="216.840.1.503672.02.09.22.4.2" /> <id nullFlavor="NA" /> <code codeSystem="local" code="MCHC" displayName= "MCHC" /> <statusCode code="completed" /> <effectiveTime value ="925440998779" /> <value unit="g/dL" xsi:type="PQ" value="34.4" /> <referenceRange> <observationRange> <text>32.0- 36.0</text> </observationRange> </referenceRange> </ observation> </component> <component> <observation moodCode= "EVN" classCode="OBS"> <templateId root="216.840.1.111966.02.09.22.4.2 " /> <id nullFlavor="NA" /> <code codeSystem="local" code="MCV " displayName="MCV" /> <statusCode code="completed" /> < effectiveTime value="" /> <value unit="fL" xsi:type="PQ" value="100.0" /> <interpretationCode codeSystem="local" code="*" /> <referenceRange> <observationRange> <text>82.0- 99.0</text> </observationRange> </referenceRange> </ observation> </component> <component> <observation moodCode= "EVN" classCode="OBS"> <templateId root="216.840.1.637391.02.09.224.2 " /> <id nullFlavor="NA" /> <code codeSystem="local" code= "MONOR" displayName="Monocytes" /> <statusCode code="completed" /> <effectiveTime value="" /> <value unit="%" xsi: type="PQ" value="6" /> <referenceRange> <observationRange> <text>4-11</text> </observationRange> </ referenceRange> </observation> </component> <component> <observation moodCode="EVN" classCode="OBS"> <templateId root= "16.840.1.756717...4.2" /> <id nullFlavor="NA" /> < code codeSystem="local" code="MPV" displayName="MPV" /> <statusCode code="completed" /> <effectiveTime value="" /> < value unit="fL" xsi:type="PQ" value="8.7" /> <interpretationCode codeSystem="local" code="*" /> <referenceRange> < observationRange> <text>9.4-12.4</text> </ observationRange> </referenceRange> </observation> </ component> <component> <observation moodCode="EVN" classCode="OBS"> <templateId root="16.840.1.510346.02.09.22.4.2" /> <id nullFlavor="NA" /> <code codeSystem="local" code="SEGR" displayName= "Neutrophils" /> <statusCode code="completed" /> < effectiveTime value="" /> <value unit="%" xsi:type="PQ " value="70" /> <referenceRange> <observationRange> <text>51-75</text> </observationRange> </ referenceRange> </observation> </component> <component> <observation moodCode="EVN" classCode="OBS"> <templateId root= "06.08.840.1.019093.02.09.22.4.2" /> <id nullFlavor="NA" /> < code codeSystem="local" code="NRBCA" displayName="Nucleated RBC Automated" /> <statusCode code="completed" /> <effectiveTime value= "" /> <value unit="/100WBC" xsi:type="PQ" value="0.0" /> <referenceRange> <observationRange> <text /> </observationRange> </referenceRange> </observation> </component> <component> <observation moodCode="EVN" classCode= "OBS"> <templateId root="06.08.840.1.434384.02.09.22.4.2" /> < id nullFlavor="NA" /> <code codeSystem="local" code="PLT" displayName= "Platelet Count" /> <statusCode code="completed" /> < effectiveTime value="" /> <value unit="K/uL" xsi:type="PQ" value="335" /> <referenceRange> <observationRange> <text>150-400</text> </observationRange> </ referenceRange> </observation> </component> <component> <observation moodCode="EVN" classCode="OBS"> <templateId root= "16.840.1.589217.10.20.22.4.2" /> <id nullFlavor="NA" /> < code codeSystem="local" code="RBC" displayName="RBC" /> <statusCode code="completed" /> <effectiveTime value="282945808695" /> < value unit="10*6/uL" xsi:type="PQ" value="4.07" /> <referenceRange> <observationRange> <text>4.00-5.20</text> </ observationRange> </referenceRange> </observation> </ component> <component> <observation moodCode="EVN" classCode="OBS"> <templateId root="06.08.840.1.201847.10.20.22.4.2" /> <id nullFlavor="NA" /> <code codeSystem="local" code="RDW" displayName="RDW " /> <statusCode code="completed" /> <effectiveTime value= "529927504358" /> <value unit="%" xsi:type="PQ" value="12.7" /> <referenceRange> <observationRange> <text>11.5- 14.5</text> </observationRange> </referenceRange> </ observation> </component> <component> <observation moodCode= "EVN" classCode="OBS"> <templateId root="06.08.840.1.226914.10.20.22.4.2 " /> <id nullFlavor="NA" /> <code codeSystem="local" code= "WBCIR" displayName="WBC" /> <statusCode code="completed" /> < effectiveTime value="922969025419" /> <value unit="K/uL" xsi:type="PQ" value="8.9" /> <referenceRange> <observationRange> <text>4.8-10.8</text> </observationRange> </ referenceRange> </observation> </component> </organizer> </entry > <entry> <organizer moodCode="EVN" classCode="BATTERY"> <templateId root="16.840.1.806944.10..22.4.1" /> <id nullFlavor="NA" /> <code codeSystem="local" code="CMP" displayName="Comprehensive Metabolic Panel (CMP)" /> <statusCode code="completed" /> <component> <observation moodCode="EVN" classCode="OBS"> <templateId root= "06.08.840.1.832099.10..22.4.2" /> <id nullFlavor="NA" /> < code codeSystem="local" code="ALB" displayName="Albumin" /> < statusCode code="completed" /> <effectiveTime value="946045143993" /> <value unit="g/dL" xsi:type="PQ" value="5.0" /> < interpretationCode codeSystem="local" code="*" /> <referenceRange> <observationRange> <text>3.5-4.8</text> </ observationRange> </referenceRange> </observation> </ component> <component> <observation moodCode="EVN" classCode="OBS"> <templateId root="06.08.840.1.499823.10...4.2" /> <id nullFlavor="NA" /> <code codeSystem="local" code="ALP" displayName= "Alkaline Phosphatase" /> <statusCode code="completed" /> < effectiveTime value="809002196115" /> <value unit="U/L" xsi:type="PQ" value="57" /> <referenceRange> <observationRange> <text>26-104</text> </observationRange> </referenceRange > </observation> </component> <component> <observation moodCode="EVN" classCode="OBS"> <templateId root= "216.840.1.041973.10.22.4.2" /> <id nullFlavor="NA" /> < code codeSystem="local" code="ALT" displayName="ALT (SGPT)" /> < statusCode code="completed" /> <effectiveTime value="306966413374" /> <value unit="U/L" xsi:type="PQ" value="14" /> <referenceRange > <observationRange> <text>14-54</text> </ observationRange> </referenceRange> </observation> </ component> <component> <observation moodCode="EVN" classCode="OBS"> <templateId root="06.08.840.1.388761.1022.4.2" /> <id nullFlavor="NA" /> <code codeSystem="local" code="AGAP" displayName= "Anion Gap" /> <statusCode code="completed" /> <effectiveTime value="931028013460" /> <value unit="mEq/L" xsi:type="PQ" value="9" /> <referenceRange> <observationRange> <text>3-20 </text> </observationRange> </referenceRange> </ observation> </component> <component> <observation moodCode= "EVN" classCode="OBS"> <templateId root="16.840.1.650443.10.20.22.4.2 " /> <id nullFlavor="NA" /> <code codeSystem="local" code="AST " displayName="AST (SGOT)" /> <statusCode code="completed" /> <effectiveTime value="997864193204" /> <value unit="U/L" xsi:type="PQ" value="16" /> <referenceRange> <observationRange> <text>15-41</text> </observationRange> </referenceRange > </observation> </component> <component> <observation moodCode="EVN" classCode="OBS"> <templateId root= "06.08.840.1.156277.10..22.4.2" /> <id nullFlavor="NA" /> < code codeSystem="local" code="BILIT" displayName="Bilirubin Total" /> < statusCode code="completed" /> <effectiveTime value="822429578448" /> <value unit="mg/dL" xsi:type="PQ" value="0.4" /> < referenceRange> <observationRange> <text>0.2-1.2</text> </observationRange> </referenceRange> </observation > </component> <component> <observation moodCode="EVN" classCode="OBS"> <templateId root="06.08.840.1.944031.10..22.4.2" /> <id nullFlavor="NA" /> <code codeSystem="local" code="BUN" displayName="BUN" /> <statusCode code="completed" /> < effectiveTime value="000447681585" /> <value unit="mg/dL" xsi:type="PQ " value="12" /> <referenceRange> <observationRange> <text>4-20</text> </observationRange> </referenceRange > </observation> </component> <component> <observation moodCode="EVN" classCode="OBS"> <templateId root= "840.1.538086.10..22.4.2" /> <id nullFlavor="NA" /> < code codeSystem="local" code="CA" displayName="Calcium" /> <statusCode code="completed" /> <effectiveTime value="791340987112" /> < value unit="mg/dL" xsi:type="PQ" value="9.8" /> <referenceRange> <observationRange> <text>8.6-10.0</text> </ observationRange> </referenceRange> </observation> </ component> <component> <observation moodCode="EVN" classCode="OBS"> <templateId root="216.840.1.484783.10..4.2" /> <id nullFlavor="NA" /> <code codeSystem="local" code="CL" displayName= "Chloride" /> <statusCode code="completed" /> <effectiveTime value="" /> <value unit="mEq/L" xsi:type="PQ" value="105" / > <referenceRange> <observationRange> <text>99- 109</text> </observationRange> </referenceRange> </ observation> </component> <component> <observation moodCode= "EVN" classCode="OBS"> <templateId root="216.840.1.045368...4.2 " /> <id nullFlavor="NA" /> <code codeSystem="local" code="CO2 " displayName="CO2" /> <statusCode code="completed" /> < effectiveTime value="" /> <value unit="mEq/L" xsi:type="PQ " value="22" /> <referenceRange> <observationRange> <text>22-32</text> </observationRange> </ referenceRange> </observation> </component> <component> <observation moodCode="EVN" classCode="OBS"> <templateId root= "16.840.1.140365.10..4.2" /> <id nullFlavor="NA" /> < code codeSystem="local" code="CREAT" displayName="Creatinine" /> < statusCode code="completed" /> <effectiveTime value="032070181767" /> <value unit="mg/dL" xsi:type="PQ" value="0.61" /> < referenceRange> <observationRange> <text>0.44-1.03</text > </observationRange> </referenceRange> </observation > </component> <component> <observation moodCode="EVN" classCode="OBS"> <templateId root="06.08.840.1.849192...4.2" /> <id nullFlavor="NA" /> <code codeSystem="local" code="GLOB" displayName="Globulin" /> <statusCode code="completed" /> < effectiveTime value="206628085325" /> <value unit="g/dL" xsi:type="PQ" value="3.0" /> <referenceRange> <observationRange> <text>1.9-4.3</text> </observationRange> </ referenceRange> </observation> </component> <component> <observation moodCode="EVN" classCode="OBS"> <templateId root= "06.08.840.1.074777.10..22.4.2" /> <id nullFlavor="NA" /> < code codeSystem="local" code="GLU" displayName="Glucose" /> < statusCode code="completed" /> <effectiveTime value="533493215819" /> <value unit="mg/dL" xsi:type="PQ" value="83" /> < referenceRange> <observationRange> <text>70-100</text> </observationRange> </referenceRange> </observation> </component> <component> <observation moodCode="EVN" classCode ="OBS"> <templateId root="840.1.779521.10..22.4.2" /> < id nullFlavor="NA" /> <code codeSystem="local" code="K" displayName= "Potassium" /> <statusCode code="completed" /> <effectiveTime value="195614443193" /> <value unit="mEq/L" xsi:type="PQ" value="3.5" / > <interpretationCode codeSystem="local" code="*" /> < referenceRange> <observationRange> <text>3.6-5.1</text> </observationRange> </referenceRange> </observation > </component> <component> <observation moodCode="EVN" classCode="OBS"> <templateId root="840.1.147913.10..22.4.2" /> <id nullFlavor="NA" /> <code codeSystem="local" code="TP" displayName="Protein" /> <statusCode code="completed" /> < effectiveTime value="061053971244" /> <value unit="g/dL" xsi:type="PQ" value="8.0" /> <interpretationCode codeSystem="local" code="*" /> <referenceRange> <observationRange> <text>6.1-7.9</ text> </observationRange> </referenceRange> </ observation> </component> <component> <observation moodCode= "EVN" classCode="OBS"> <templateId root="840.1.307154.10..22.4.2 " /> <id nullFlavor="NA" /> <code codeSystem="local" code="NA " displayName="Sodium" /> <statusCode code="completed" /> < effectiveTime value="979645717532" /> <value unit="mEq/L" xsi:type="PQ " value="136" /> <referenceRange> <observationRange> <text>136-144</text> </observationRange> </ referenceRange> </observation> </component> </organizer> </entry > <entry> <organizer moodCode="EVN" classCode="BATTERY"> <templateId root="216.840.1.597485.10..22.4.1" /> <id nullFlavor="NA" /> <code codeSystem="local" code="GFR" displayName="eGFR" /> <statusCode code= "completed" /> <component> <observation moodCode="EVN" classCode= "OBS"> <templateId root="216.840.1.464199.10...4.2" /> < id nullFlavor="NA" /> <code codeSystem="local" code="GFR" displayName= "eGFR" /> <statusCode code="completed" /> <effectiveTime value ="232998016803" /> <value unit="mL/min" xsi:type="PQ" value=">60" / > <referenceRange> <observationRange> <text>&gt ;60</text> </observationRange> </referenceRange> </ observation> </component> </organizer> </entry> <entry> <organizer moodCode="EVN" classCode="BATTERY"> <templateId root= "216.840.1.470517.10..22.4.1" /> <id nullFlavor="NA" /> <code codeSystem="local" code="UA" displayName="Urinalysis with reflex microscopic" / > <statusCode code="completed" /> <component> <observation moodCode="EVN" classCode="OBS"> <templateId root= "216.840.1.786512.10..22.4.2" /> <id nullFlavor="NA" /> < code codeSystem="local" code="UAPP" displayName="Appearance" /> < statusCode code="completed" /> <effectiveTime value="" /> <value unit="NA" xsi:type="PQ" value="Sl Cloudy" /> < referenceRange> <observationRange> <text /> < /observationRange> </referenceRange> </observation> </ component> <component> <observation moodCode="EVN" classCode="OBS"> <templateId root="216.840.1.467949.10..4.2" /> <id nullFlavor="NA" /> <code codeSystem="local" code="UBIL" displayName= "Bilirubin" /> <statusCode code="completed" /> <effectiveTime value="" /> <value unit="NA" xsi:type="PQ" value="Positive " /> <interpretationCode codeSystem="local" code="*" /> < referenceRange> <observationRange> <text>Negative</text > </observationRange> </referenceRange> </observation > </component> <component> <observation moodCode="EVN" classCode="OBS"> <templateId root="216.840.1.362727.10..4.2" /> <id nullFlavor="NA" /> <code codeSystem="local" code="UBLD" displayName="Blood" /> <statusCode code="completed" /> < effectiveTime value="" /> <value unit="NA" xsi:type="PQ" value="Negative" /> <referenceRange> <observationRange> <text>Negative</text> </observationRange> </ referenceRange> </observation> </component> <component> <observation moodCode="EVN" classCode="OBS"> <templateId root= "216.840.1.718024.10.4.2" /> <id nullFlavor="NA" /> < code codeSystem="local" code="UCOLR" displayName="Color" /> < statusCode code="completed" /> <effectiveTime value="" /> <value unit="NA" xsi:type="PQ" value="Yellow" /> < referenceRange> <observationRange> <text /> < /observationRange> </referenceRange> </observation> </ component> <component> <observation moodCode="EVN" classCode="OBS"> <templateId root="06.08.840.1.203260.02.09.22.4.2" /> <id nullFlavor="NA" /> <code codeSystem="local" code="UGLU" displayName= "Glucose, Urine" /> <statusCode code="completed" /> < effectiveTime value="" /> <value unit="" xsi:type="PQ" value="Negative" /> <referenceRange> <observationRange> <text>Negative</text> </observationRange> </ referenceRange> </observation> </component> <component> <observation moodCode="EVN" classCode="OBS"> <templateId root= "06.08.840.1.249122.10.4.2" /> <id nullFlavor="NA" /> < code codeSystem="local" code="UKET" displayName="Ketones" /> < statusCode code="completed" /> <effectiveTime value="" /> <value unit="" xsi:type="PQ" value="Negative" /> < referenceRange> <observationRange> <text>Negative</text > </observationRange> </referenceRange> </observation > </component> <component> <observation moodCode="EVN" classCode="OBS"> <templateId root="06.08.840.1.016264.10.4.2" /> <id nullFlavor="NA" /> <code codeSystem="local" code="ULEU" displayName="Leukocyte Esterase" /> <statusCode code="completed" /> <effectiveTime value="" /> <value unit="NA" xsi:type ="PQ" value="Negative" /> <referenceRange> <observationRange > <text>Negative</text> </observationRange> </ referenceRange> </observation> </component> <component> <observation moodCode="EVN" classCode="OBS"> <templateId root= "840.1.879859.02.09.22.4.2" /> <id nullFlavor="NA" /> < code codeSystem="local" code="UNIT" displayName="Nitrites" /> < statusCode code="completed" /> <effectiveTime value="" /> <value unit="NA" xsi:type="PQ" value="Negative" /> < referenceRange> <observationRange> <text>Negative</text > </observationRange> </referenceRange> </observation > </component> <component> <observation moodCode="EVN" classCode="OBS"> <templateId root="06.08.840.1.049766.02.09.22.4.2" /> <id nullFlavor="NA" /> <code codeSystem="local" code="UPH" displayName="pH" /> <statusCode code="completed" /> < effectiveTime value="" /> <value unit="NA" xsi:type="PQ" value="5.5" /> <referenceRange> <observationRange> <text>5.0-8.0</text> </observationRange> </ referenceRange> </observation> </component> <component> <observation moodCode="EVN" classCode="OBS"> <templateId root= "06.08.840.1.986494.10...4.2" /> <id nullFlavor="NA" /> < code codeSystem="local" code="UPRO" displayName="Protein" /> < statusCode code="completed" /> <effectiveTime value="686917731545" /> <value unit="NA" xsi:type="PQ" value="Trace" /> < interpretationCode codeSystem="local" code="*" /> <referenceRange> <observationRange> <text>Negative</text> </ observationRange> </referenceRange> </observation> </ component> <component> <observation moodCode="EVN" classCode="OBS"> <templateId root="06.08.840.1.081929.02.09.22.4.2" /> <id nullFlavor="NA" /> <code codeSystem="local" code="USPG" displayName= "Specific [place]" /> <statusCode code="completed" /> < effectiveTime value="014867140523" /> <value unit="NA" xsi:type="PQ" value="1.015" /> <referenceRange> <observationRange> <text>1.003-1.030</text> </observationRange> </ referenceRange> </observation> </component> <component> <observation moodCode="EVN" classCode="OBS"> <templateId root= "06.08.840.1.157008.10.22.4.2" /> <id nullFlavor="NA" /> < code codeSystem="local" code="UTYP" displayName="UA Collection type" /> <statusCode code="completed" /> <effectiveTime value="158870605374" / > <value unit="NA" xsi:type="PQ" value="Clean Catch" /> < referenceRange> <observationRange> <text /> < /observationRange> </referenceRange> </observation> </ component> <component> <observation moodCode="EVN" classCode="OBS"> <templateId root="06.08.840.1.567226.10..4.2" /> <id nullFlavor="NA" /> <code codeSystem="local" code="UURO" displayName= "Urobilinogen" /> <statusCode code="completed" /> < effectiveTime value="947885352853" /> <value unit="mg/dL" xsi:type="PQ " value="0.2" /> <referenceRange> <observationRange> <text><1.0</text> </observationRange> </ referenceRange> </observation> </component> </organizer> </entry > <entry> <organizer moodCode="EVN" classCode="BATTERY"> <templateId root="06.08.840.1.113458.10..4.1" /> <id nullFlavor="NA" /> <code codeSystem="local" code="CBCD" displayName="CBC W/DIFF" /> <statusCode code ="completed" /> <component> <observation moodCode="EVN" classCode= "OBS"> <templateId root="06.08.840.1.077190.02.09.22.4.2" /> < id nullFlavor="NA" /> <code codeSystem="local" code="BA#" displayName= "BASOPHIL #" /> <statusCode code="completed" /> < effectiveTime value="148697244800" /> <value unit="k/cumm" xsi:type="PQ " value="0.0" /> <referenceRange> <observationRange> <text>0.0-0.2</text> </observationRange> </ referenceRange> </observation> </component> <component> <observation moodCode="EVN" classCode="OBS"> <templateId root= "216.840.1.506921.10...4.2" /> <id nullFlavor="NA" /> < code codeSystem="local" code="BA%" displayName="BASOPHIL %" /> <statusCode code="completed" /> <effectiveTime value="397111199782" /> <value unit="%" xsi:type="PQ" value="0.1" /> < referenceRange> <observationRange> <text>0-1</text> </observationRange> </referenceRange> </observation> </component> <component> <observation moodCode="EVN" classCode= "OBS"> <templateId root="06.08.840.1.224424.10..4.2" /> < id nullFlavor="NA" /> <code codeSystem="local" code="EO#" displayName= "EOSINOPHIL #" /> <statusCode code="completed" /> < effectiveTime value="195735808549" /> <value unit="k/cumm" xsi:type="PQ " value="0.1" /> <referenceRange> <observationRange> <text>0.1-0.5</text> </observationRange> </ referenceRange> </observation> </component> <component> <observation moodCode="EVN" classCode="OBS"> <templateId root= "216.840.1.521599.10...4.2" /> <id nullFlavor="NA" /> < code codeSystem="local" code="EO%" displayName="EOSINOPHIL %" /> <statusCode code="completed" /> <effectiveTime value="[id number]" /> <value unit="%" xsi:type="PQ" value="1.6" /> < interpretationCode codeSystem="local" code="*" /> <referenceRange> <observationRange> <text>2-4</text> </ observationRange> </referenceRange> </observation> </ component> <component> <observation moodCode="EVN" classCode="OBS"> <templateId root="2.16.840.1.471429.10..4.2" /> <id nullFlavor="NA" /> <code codeSystem="local" code="GR#" displayName= "GRANULOCYTE #" /> <statusCode code="completed" /> < effectiveTime value="[id number]" /> <value unit="k/cumm" xsi:type="PQ " value="3.1" /> <referenceRange> <observationRange> <text>2.0-9.0</text> </observationRange> </ referenceRange> </observation> </component> <component> <observation moodCode="EVN" classCode="OBS"> <templateId root= "2.16.840.1.034611.1022.4.2" /> <id nullFlavor="NA" /> < code codeSystem="local" code="GR%" displayName="GRANULOCYTE %" /> <statusCode code="completed" /> <effectiveTime value="555796493824 " /> <value unit="%" xsi:type="PQ" value="40.8" /> < interpretationCode codeSystem="local" code="*" /> <referenceRange> <observationRange> <text>50-75</text> </ observationRange> </referenceRange> </observation> </ component> <component> <observation moodCode="EVN" classCode="OBS"> <templateId root="06.08.840.1.077930.10..4.2" /> <id nullFlavor="NA" /> <code codeSystem="local" code="LY#" displayName= "LYMPHOCYTE #" /> <statusCode code="completed" /> < effectiveTime value="648696837925" /> <value unit="k/cumm" xsi:type="PQ " value="3.6" /> <referenceRange> <observationRange> <text>1.0-4.0</text> </observationRange> </ referenceRange> </observation> </component> <component> <observation moodCode="EVN" classCode="OBS"> <templateId root= "06.08.840.1.767831.02.09.224.2" /> <id nullFlavor="NA" /> < code codeSystem="local" code="LY%" displayName="LYMPHOCYTE %" /> <statusCode code="completed" /> <effectiveTime value="787557227828" /> <value unit="%" xsi:type="PQ" value="47.6" /> < interpretationCode codeSystem="local" code="*" /> <referenceRange> <observationRange> <text>20-30</text> </ observationRange> </referenceRange> </observation> </ component> <component> <observation moodCode="EVN" classCode="OBS"> <templateId root="06.08.840.1.345494.02.09.22.4.2" /> <id nullFlavor="NA" /> <code codeSystem="local" code="MCH" displayName= "MEAN CELL HGB" /> <statusCode code="completed" /> < effectiveTime value="164869523881" /> <value unit="pg" xsi:type="PQ" value="33.9" /> <interpretationCode codeSystem="local" code="*" /> <referenceRange> <observationRange> <text>27.0- 33.0</text> </observationRange> </referenceRange> </ observation> </component> <component> <observation moodCode= "EVN" classCode="OBS"> <templateId root="216.840.1.122585.10..22.4.2 " /> <id nullFlavor="NA" /> <code codeSystem="local" code= "MCHC" displayName="MEAN CELL HGB CONCENTRATION" /> <statusCode code= "completed" /> <effectiveTime value="721936506985" /> <value unit="g/dL" xsi:type="PQ" value="32.5" /> <referenceRange> < observationRange> <text>32.0-37.0</text> </ observationRange> </referenceRange> </observation> </ component> <component> <observation moodCode="EVN" classCode="OBS"> <templateId root="2.16.840.1.552787.10.20.22.4.2" /> <id nullFlavor="NA" /> <code codeSystem="local" code="MCV" displayName= "MEAN CELL VOLUME" /> <statusCode code="completed" /> < effectiveTime value="166057021465" /> <value unit="fl" xsi:type="PQ" value="104.1" /> <interpretationCode codeSystem="local" code="*" /> <referenceRange> <observationRange> <text>80.0- 100.0</text> </observationRange> </referenceRange> </ observation> </component> <component> <observation moodCode= "EVN" classCode="OBS"> <templateId root="06.08.840.1.294074.10.20.22.4.2 " /> <id nullFlavor="NA" /> <code codeSystem="local" code="MO# " displayName="MONOCYTE #" /> <statusCode code="completed" /> <effectiveTime value="876357483340" /> <value unit="k/cumm" xsi:type= "PQ" value="0.8" /> <referenceRange> <observationRange> <text>0.1-1.0</text> </observationRange> </ referenceRange> </observation> </component> <component> <observation moodCode="EVN" classCode="OBS"> <templateId root= "06.08.840.1.305660.10..4.2" /> <id nullFlavor="NA" /> < code codeSystem="local" code="MO%" displayName="MONOCYTE %" /> <statusCode code="completed" /> <effectiveTime value="310557570386" /> <value unit="%" xsi:type="PQ" value="9.9" /> < interpretationCode codeSystem="local" code="*" /> <referenceRange> <observationRange> <text>4-6</text> </ observationRange> </referenceRange> </observation> </ component> <component> <observation moodCode="EVN" classCode="OBS"> <templateId root="06.08.840.1.291853.10.22.4.2" /> <id nullFlavor="NA" /> <code codeSystem="local" code="RBC" displayName=" RED BLOOD CELL" /> <statusCode code="completed" /> < effectiveTime value="693157645808" /> <value unit="m/cumm" xsi:type="PQ " value="3.63" /> <interpretationCode codeSystem="local" code="*" /> <referenceRange> <observationRange> <text>4.00- 6.00</text> </observationRange> </referenceRange> </ observation> </component> <component> <observation moodCode= "EVN" classCode="OBS"> <templateId root="216.840.1.754767.10.22.4.2 " /> <id nullFlavor="NA" /> <code codeSystem="local" code="RDW " displayName="RED CELL DISTRIBUTION WIDTH" /> <statusCode code= "completed" /> <effectiveTime value="274787397750" /> <value unit="%" xsi:type="PQ" value="12.4" /> <referenceRange> <observationRange> <text>11.0-15.6</text> </ observationRange> </referenceRange> </observation> </ component> <component> <observation moodCode="EVN" classCode="OBS"> <templateId root="06.08.840.1.491251.10.4.2" /> <id nullFlavor="NA" /> <code codeSystem="local" code="WBC" displayName= "WHITE BLOOD CELL" /> <statusCode code="completed" /> < effectiveTime value="291479580082" /> <value unit="k/cumm" xsi:type="PQ " value="7.7" /> <referenceRange> <observationRange> <text>5.0-10.0</text> </observationRange> </ referenceRange> </observation> </component> <component> <observation moodCode="EVN" classCode="OBS"> <templateId root= "216.840.1.695947.10.20.22.4.2" /> <id nullFlavor="NA" /> < code codeSystem="local" code="HGBT" displayName="HEMOGLOBIN" /> < statusCode code="completed" /> <effectiveTime value="336181271760" /> <value unit="gm/dL" xsi:type="PQ" value="12.3" /> < referenceRange> <observationRange> <text>12.0-16.0</text > </observationRange> </referenceRange> </observation > </component> <component> <observation moodCode="EVN" classCode="OBS"> <templateId root="2.16.840.1.925361.10..22.4.2" /> <id nullFlavor="NA" /> <code codeSystem="local" code="HCTT" displayName="HEMATOCRIT" /> <statusCode code="completed" /> < effectiveTime value="680813686266" /> <value unit="%" xsi:type="PQ " value="37.8" /> <referenceRange> <observationRange> <text>37.0-47.0</text> </observationRange> </ referenceRange> </observation> </component> <component> <observation moodCode="EVN" classCode="OBS"> <templateId root= "2.16.840.1.700630.10..22.4.2" /> <id nullFlavor="NA" /> < code codeSystem="local" code="PLTT" displayName="PLATELET COUNT" /> < statusCode code="completed" /> <effectiveTime value="772900889776" /> <value unit="k/cumm" xsi:type="PQ" value="334" /> < referenceRange> <observationRange> <text>150-450</text> </observationRange> </referenceRange> </observation > </component> </organizer> </entry> <entry> <organizer moodCode= "EVN" classCode="BATTERY"> <templateId root="840.1.508858.10..4.1 " /> <id nullFlavor="NA" /> <code codeSystem="local" code="DIMER" displayName="D-DIMER QUANT" /> <statusCode code="completed" /> < component> <observation moodCode="EVN" classCode="OBS"> < templateId root="840.1.358211.02.09.22.4.2" /> <id nullFlavor="NA " /> <code codeSystem="local" code="DIMER" displayName="D-DIMER QUANT" /> <statusCode code="completed" /> <effectiveTime value= "294985317287" /> <value unit="ng/mL" xsi:type="PQ" value="308" /> <referenceRange> <observationRange> <text>< 500 </text> </observationRange> </referenceRange> </ observation> </component> </organizer> </entry> <entry> <organizer moodCode="EVN" classCode="BATTERY"> <templateId root= "840.1.564536.02.09.22.4.1" /> <id nullFlavor="NA" /> <code codeSystem="local" code="METABC" displayName="METABOLIC PANEL, COMPREHN" /> <statusCode code="completed" /> <component> <observation moodCode= "EVN" classCode="OBS"> <templateId root="840.1.024347.02.09.22.4.2 " /> <id nullFlavor="NA" /> <code codeSystem="local" code="K" displayName="POTASSIUM" /> <statusCode code="completed" /> < effectiveTime value="111504855336" /> <value unit="mmol/L" xsi:type="PQ " value="4.4" /> <referenceRange> <observationRange> <text>3.5-5.3</text> </observationRange> </ referenceRange> </observation> </component> <component> <observation moodCode="EVN" classCode="OBS"> <templateId root= "216.840.1.995884.10..4.2" /> <id nullFlavor="NA" /> < code codeSystem="local" code="eGFR" displayName="EST GFR (MDRD)" /> < statusCode code="completed" /> <effectiveTime value="" /> <value unit="mL/min" xsi:type="PQ" value="> 60" /> < referenceRange> <observationRange> <text>> 59</text> </observationRange> </referenceRange> </observation > </component> <component> <observation moodCode="EVN" classCode="OBS"> <templateId root="06.08.840.1.876509.10..4.2" /> <id nullFlavor="NA" /> <code codeSystem="local" code="GAP" displayName="ANION GAP" /> <statusCode code="completed" /> < effectiveTime value="" /> <value unit="mmol/L" xsi:type="PQ " value="9" /> <referenceRange> <observationRange> <text>5-15</text> </observationRange> </referenceRange > </observation> </component> <component> <observation moodCode="EVN" classCode="OBS"> <templateId root= "16.840.1.259519.10...4.2" /> <id nullFlavor="NA" /> < code codeSystem="local" code="eCrCl" displayName="EST CrCl (CG)" /> < statusCode code="completed" /> <effectiveTime value="" /> <value unit="mL/min" xsi:type="PQ" value="> 60" /> < referenceRange> <observationRange> <text>> 59</text> </observationRange> </referenceRange> </observation > </component> <component> <observation moodCode="EVN" classCode="OBS"> <templateId root="16.840.1.592443.10.20.22.4.2" /> <id nullFlavor="NA" /> <code codeSystem="local" code="GLU" displayName="GLUCOSE" /> <statusCode code="completed" /> < effectiveTime value="" /> <value unit="mg/dL" xsi:type="PQ " value="101" /> <interpretationCode codeSystem="local" code="*" /> <referenceRange> <observationRange> <text>70-99</ text> </observationRange> </referenceRange> </ observation> </component> <component> <observation moodCode= "EVN" classCode="OBS"> <templateId root="06.08.840.1.703141.10.20.22.4.2 " /> <id nullFlavor="NA" /> <code codeSystem="local" code="CA " displayName="CALCIUM" /> <statusCode code="completed" /> < effectiveTime value="" /> <value unit="mg/dL" xsi:type="PQ " value="9.2" /> <referenceRange> <observationRange> <text>8.5-10.1</text> </observationRange> </ referenceRange> </observation> </component> <component> <observation moodCode="EVN" classCode="OBS"> <templateId root= "2.16.840.1.784484.10..22.4.2" /> <id nullFlavor="NA" /> < code codeSystem="local" code="BUN" displayName="BLOOD UREA NITROGEN" /> <statusCode code="completed" /> <effectiveTime value="" / > <value unit="mg/dL" xsi:type="PQ" value="15" /> < referenceRange> <observationRange> <text>7-20</text> </observationRange> </referenceRange> </observation> </component> <component> <observation moodCode="EVN" classCode= "OBS"> <templateId root="2.16.840.1.056471.10..22.4.2" /> < id nullFlavor="NA" /> <code codeSystem="local" code="CREAT" displayName ="CREATININE" /> <statusCode code="completed" /> < effectiveTime value="" /> <value unit="mg/dL" xsi:type="PQ " value="0.7" /> <referenceRange> <observationRange> <text>0.6-1.0</text> </observationRange> </ referenceRange> </observation> </component> <component> <observation moodCode="EVN" classCode="OBS"> <templateId root= "216.840.1.742575.10..22.4.2" /> <id nullFlavor="NA" /> < code codeSystem="local" code="NA" displayName="SODIUM" /> <statusCode code="completed" /> <effectiveTime value="" /> < value unit="mmol/L" xsi:type="PQ" value="143" /> <referenceRange> <observationRange> <text>135-148</text> </ observationRange> </referenceRange> </observation> </ component> <component> <observation moodCode="EVN" classCode="OBS"> <templateId root="216.840.1.632873.10..22.4.2" /> <id nullFlavor="NA" /> <code codeSystem="local" code="CL" displayName= "CHLORIDE" /> <statusCode code="completed" /> <effectiveTime value="" /> <value unit="mmol/L" xsi:type="PQ" value="109" /> <referenceRange> <observationRange> <text>98 -110</text> </observationRange> </referenceRange> </ observation> </component> <component> <observation moodCode= "EVN" classCode="OBS"> <templateId root="216.840.1.826614.10...4.2 " /> <id nullFlavor="NA" /> <code codeSystem="local" code="AST " displayName="AST/SGOT" /> <statusCode code="completed" /> < effectiveTime value="" /> <value unit="Units/L" xsi:type= "PQ" value="12" /> <referenceRange> <observationRange> <text>10-37</text> </observationRange> </ referenceRange> </observation> </component> <component> <observation moodCode="EVN" classCode="OBS"> <templateId root= "16.840.1.821658.10...4.2" /> <id nullFlavor="NA" /> < code codeSystem="local" code="ALT" displayName="ALT/SGPT" /> < statusCode code="completed" /> <effectiveTime value="" /> <value unit="Units/L" xsi:type="PQ" value="20" /> < referenceRange> <observationRange> <text>< 66</text> </observationRange> </referenceRange> </observation > </component> <component> <observation moodCode="EVN" classCode="OBS"> <templateId root="16.840.1.741428.10.4.2" /> <id nullFlavor="NA" /> <code codeSystem="local" code="CO2" displayName="CARBON DIOXIDE" /> <statusCode code="completed" /> <effectiveTime value="" /> <value unit="mmol/L" xsi:type ="PQ" value="25" /> <referenceRange> <observationRange> <text>21-32</text> </observationRange> </ referenceRange> </observation> </component> <component> <observation moodCode="EVN" classCode="OBS"> <templateId root= "06.08.840.1.574888.02.09.22.4.2" /> <id nullFlavor="NA" /> < code codeSystem="local" code="TP" displayName="TOTAL PROTEIN" /> < statusCode code="completed" /> <effectiveTime value="" /> <value unit="gm/dL" xsi:type="PQ" value="7.7" /> < referenceRange> <observationRange> <text>6.4-8.2</text> </observationRange> </referenceRange> </observation > </component> <component> <observation moodCode="EVN" classCode="OBS"> <templateId root="06.08.840.1.077796.02.09.22.4.2" /> <id nullFlavor="NA" /> <code codeSystem="local" code="ALB" displayName="ALBUMIN" /> <statusCode code="completed" /> < effectiveTime value="" /> <value unit="gm/dL" xsi:type="PQ " value="4.0" /> <referenceRange> <observationRange> <text>3.4-5.0</text> </observationRange> </ referenceRange> </observation> </component> <component> <observation moodCode="EVN" classCode="OBS"> <templateId root= "2.16.840.1.616433.10..22.4.2" /> <id nullFlavor="NA" /> < code codeSystem="local" code="BILTOT" displayName="BILI TOTAL" /> < statusCode code="completed" /> <effectiveTime value="218849428450" /> <value unit="mg/dL" xsi:type="PQ" value="0.2" /> < referenceRange> <observationRange> <text>0.0-1.0</text> </observationRange> </referenceRange> </observation > </component> <component> <observation moodCode="EVN" classCode="OBS"> <templateId root="216.840.1.429452.10..22.4.2" /> <id nullFlavor="NA" /> <code codeSystem="local" code="ALKP" displayName="ALKALINE PHOSPHATASE TOTAL" /> <statusCode code="completed " /> <effectiveTime value="304199606007" /> <value unit="IU/L " xsi:type="PQ" value="63" /> <referenceRange> < observationRange> <text>45-117</text> </observationRange > </referenceRange> </observation> </component> </ organizer> </entry> <entry> <organizer moodCode="EVN" classCode="BATTERY"> <templateId root="2.16.840.1.380122.10..22.4.1" /> <id nullFlavor= "NA" /> <code codeSystem="local" code="PREGN" displayName=" Screen , Urine NPT" /> <statusCode code="completed" /> <component> < observation moodCode="EVN" classCode="OBS"> <templateId root= "216.840.1.528118.10..22.4.2" /> <id nullFlavor="NA" /> < code codeSystem="local" code="PREGN" displayName=" Screen, Urine NPT" / > <statusCode code="completed" /> <effectiveTime value= "216877003246" /> <value unit="NA" xsi:type="PQ" value="Negative" /> <referenceRange> <observationRange> <text /> </observationRange> </referenceRange> </observation> </component> </organizer> </entry> <entry> <organizer moodCode="EVN " classCode="BATTERY"> <templateId root="16.840.1.335240.10..22.4.1" / > <id nullFlavor="NA" /> <code codeSystem="local" code="CBCD" displayName="CBC W/DIFF" /> <statusCode code="completed" /> <component > <observation moodCode="EVN" classCode="OBS"> <templateId root= "16.840.1.713357.10..22.4.2" /> <id nullFlavor="NA" /> < code codeSystem="local" code="BA#" displayName="BASOPHIL #" /> < statusCode code="completed" /> <effectiveTime value="393273870724" /> <value unit="k/cumm" xsi:type="PQ" value="0.0" /> < referenceRange> <observationRange> <text>0.0-0.2</text> </observationRange> </referenceRange> </observation > </component> <component> <observation moodCode="EVN" classCode="OBS"> <templateId root="216.840.1.164276.10..4.2" /> <id nullFlavor="NA" /> <code codeSystem="local" code="BA% " displayName="BASOPHIL %" /> <statusCode code="completed" /> <effectiveTime value="" /> <value unit="%" xsi: type="PQ" value="0.1" /> <referenceRange> <observationRange > <text>0-1</text> </observationRange> </ referenceRange> </observation> </component> <component> <observation moodCode="EVN" classCode="OBS"> <templateId root= "16.840.1.244964.02.09.22.4.2" /> <id nullFlavor="NA" /> < code codeSystem="local" code="CBCCOM" displayName="COMMENT" /> < statusCode code="completed" /> <effectiveTime value="" /> <value unit="" xsi:type="PQ" value="REVIEWED" /> < referenceRange> <observationRange> <text /> < /observationRange> </referenceRange> </observation> </ component> <component> <observation moodCode="EVN" classCode="OBS"> <templateId root="16.840.1.383514.10..4.2" /> <id nullFlavor="NA" /> <code codeSystem="local" code="EO#" displayName= "EOSINOPHIL #" /> <statusCode code="completed" /> < effectiveTime value="137379957088" /> <value unit="k/cumm" xsi:type="PQ " value="0.0" /> <interpretationCode codeSystem="local" code="*" /> <referenceRange> <observationRange> <text>0.1-0.5 </text> </observationRange> </referenceRange> </ observation> </component> <component> <observation moodCode= "EVN" classCode="OBS"> <templateId root="16.840.1.555224.10.2022.4.2 " /> <id nullFlavor="NA" /> <code codeSystem="local" code="EO& #37;" displayName="EOSINOPHIL %" /> <statusCode code="completed" / > <effectiveTime value="481723354187" /> <value unit="%" xsi:type="PQ" value="0.0" /> <interpretationCode codeSystem="local" code="*" /> <referenceRange> <observationRange> <text>2-4</text> </observationRange> </referenceRange> </observation> </component> <component> <observation moodCode="EVN" classCode="OBS"> <templateId root= "06.08.840.1.025156.02.09.22.4.2" /> <id nullFlavor="NA" /> < code codeSystem="local" code="GR#" displayName="GRANULOCYTE #" /> < statusCode code="completed" /> <effectiveTime value="518156671230" /> <value unit="k/cumm" xsi:type="PQ" value="7.5" /> < referenceRange> <observationRange> <text>2.0-9.0</text> </observationRange> </referenceRange> </observation > </component> <component> <observation moodCode="EVN" classCode="OBS"> <templateId root="16.840.1.352342.10.2022.4.2" /> <id nullFlavor="NA" /> <code codeSystem="local" code="GR% " displayName="GRANULOCYTE %" /> <statusCode code="completed" /> <effectiveTime value="" /> <value unit="%" xsi: type="PQ" value="85.1" /> <interpretationCode codeSystem="local" code= "*" /> <referenceRange> <observationRange> < text>50-75</text> </observationRange> </referenceRange> </observation> </component> <component> <observation moodCode="EVN" classCode="OBS"> <templateId root= "2.16.840.1.460782.02.09.224.2" /> <id nullFlavor="NA" /> < code codeSystem="local" code="LY#" displayName="LYMPHOCYTE #" /> < statusCode code="completed" /> <effectiveTime value="" /> <value unit="k/cumm" xsi:type="PQ" value="1.1" /> < referenceRange> <observationRange> <text>1.0-4.0</text> </observationRange> </referenceRange> </observation > </component> <component> <observation moodCode="EVN" classCode="OBS"> <templateId root="2.16.840.1.620112.10.4.2" /> <id nullFlavor="NA" /> <code codeSystem="local" code="LY% " displayName="LYMPHOCYTE %" /> <statusCode code="completed" /> <effectiveTime value="" /> <value unit="%" xsi: type="PQ" value="13.0" /> <interpretationCode codeSystem="local" code= "*" /> <referenceRange> <observationRange> < text>20-30</text> </observationRange> </referenceRange> </observation> </component> <component> <observation moodCode="EVN" classCode="OBS"> <templateId root= "216.840.1.278960.10.20.22.4.2" /> <id nullFlavor="NA" /> < code codeSystem="local" code="MCH" displayName="MEAN CELL HGB" /> < statusCode code="completed" /> <effectiveTime value="398110940857" /> <value unit="pg" xsi:type="PQ" value="33.5" /> < interpretationCode codeSystem="local" code="*" /> <referenceRange> <observationRange> <text>27.0-33.0</text> </ observationRange> </referenceRange> </observation> </ component> <component> <observation moodCode="EVN" classCode="OBS"> <templateId root="840.1.828826.02.09.22.4.2" /> <id nullFlavor="NA" /> <code codeSystem="local" code="MCHC" displayName= "MEAN CELL HGB CONCENTRATION" /> <statusCode code="completed" /> <effectiveTime value="071435070950" /> <value unit="g/dL" xsi:type= "PQ" value="32.7" /> <referenceRange> <observationRange> <text>32.0-37.0</text> </observationRange> </ referenceRange> </observation> </component> <component> <observation moodCode="EVN" classCode="OBS"> <templateId root= "06.08.840.1.643806.10.20.22.4.2" /> <id nullFlavor="NA" /> < code codeSystem="local" code="MCV" displayName="MEAN CELL VOLUME" /> < statusCode code="completed" /> <effectiveTime value="901189391138" /> <value unit="fl" xsi:type="PQ" value="102.5" /> < interpretationCode codeSystem="local" code="*" /> <referenceRange> <observationRange> <text>80.0-100.0</text> </ observationRange> </referenceRange> </observation> </ component> <component> <observation moodCode="EVN" classCode="OBS"> <templateId root="16.840.1.265141.10..22.4.2" /> <id nullFlavor="NA" /> <code codeSystem="local" code="MO#" displayName= "MONOCYTE #" /> <statusCode code="completed" /> < effectiveTime value="398341416903" /> <value unit="k/cumm" xsi:type="PQ " value="0.2" /> <referenceRange> <observationRange> <text>0.1-1.0</text> </observationRange> </ referenceRange> </observation> </component> <component> <observation moodCode="EVN" classCode="OBS"> <templateId root= "216.840.1.681923.10..22.4.2" /> <id nullFlavor="NA" /> < code codeSystem="local" code="MO%" displayName="MONOCYTE %" /> <statusCode code="completed" /> <effectiveTime value="450544324893" /> <value unit="%" xsi:type="PQ" value="1.8" /> < interpretationCode codeSystem="local" code="*" /> <referenceRange> <observationRange> <text>4-6</text> </ observationRange> </referenceRange> </observation> </ component> <component> <observation moodCode="EVN" classCode="OBS"> <templateId root="216.840.1.660966.10..22.4.2" /> <id nullFlavor="NA" /> <code codeSystem="local" code="RBC" displayName=" RED BLOOD CELL" /> <statusCode code="completed" /> < effectiveTime value="891854782538" /> <value unit="m/cumm" xsi:type="PQ " value="4.03" /> <referenceRange> <observationRange> <text>4.00-6.00</text> </observationRange> </ referenceRange> </observation> </component> <component> <observation moodCode="EVN" classCode="OBS"> <templateId root= "16.840.1.294033.10...4.2" /> <id nullFlavor="NA" /> < code codeSystem="local" code="RDW" displayName="RED CELL DISTRIBUTION WIDTH" /> <statusCode code="completed" /> <effectiveTime value= "940576748515" /> <value unit="%" xsi:type="PQ" value="12.7" /> <referenceRange> <observationRange> <text>11.0- 15.6</text> </observationRange> </referenceRange> </ observation> </component> <component> <observation moodCode= "EVN" classCode="OBS"> <templateId root="16.840.1.260902.10.20.22.4.2 " /> <id nullFlavor="NA" /> <code codeSystem="local" code="WBC " displayName="WHITE BLOOD CELL" /> <statusCode code="completed" /> <effectiveTime value="220168842794" /> <value unit="k/cumm" xsi: type="PQ" value="8.8" /> <referenceRange> <observationRange > <text>5.0-10.0</text> </observationRange> </ referenceRange> </observation> </component> <component> <observation moodCode="EVN" classCode="OBS"> <templateId root= "216.840.1.372030.10.20.22.4.2" /> <id nullFlavor="NA" /> < code codeSystem="local" code="HGBT" displayName="HEMOGLOBIN" /> < statusCode code="completed" /> <effectiveTime value="171295506004" /> <value unit="gm/dL" xsi:type="PQ" value="13.5" /> < referenceRange> <observationRange> <text>12.0-16.0</text > </observationRange> </referenceRange> </observation > </component> <component> <observation moodCode="EVN" classCode="OBS"> <templateId root="06.08.840.1.984618.10..22.4.2" /> <id nullFlavor="NA" /> <code codeSystem="local" code="HCTT" displayName="HEMATOCRIT" /> <statusCode code="completed" /> < effectiveTime value="621201485313" /> <value unit="%" xsi:type="PQ " value="41.3" /> <referenceRange> <observationRange> <text>37.0-47.0</text> </observationRange> </ referenceRange> </observation> </component> <component> <observation moodCode="EVN" classCode="OBS"> <templateId root= "06.08.840.1.438346.10.20.22.4.2" /> <id nullFlavor="NA" /> < code codeSystem="local" code="PLTT" displayName="PLATELET COUNT" /> < statusCode code="completed" /> <effectiveTime value="161939377542" /> <value unit="k/cumm" xsi:type="PQ" value="490" /> < interpretationCode codeSystem="local" code="*" /> <referenceRange> <observationRange> <text>150-450</text> </ observationRange> </referenceRange> </observation> </ component> </organizer> </entry> <entry> <organizer moodCode="EVN" classCode="BATTERY"> <templateId root="216.840.1.001063.10...4.1" /> <id nullFlavor="NA" /> <code codeSystem="local" code="METABC" displayName="METABOLIC PANEL, COMPREHN" /> <statusCode code="completed" /> <component> <observation moodCode="EVN" classCode="OBS"> < templateId root="16.840.1.160968.10...4.2" /> <id nullFlavor="NA " /> <code codeSystem="local" code="K" displayName="POTASSIUM" /> <statusCode code="completed" /> <effectiveTime value="812981285922 " /> <value unit="mmol/L" xsi:type="PQ" value="3.7" /> < referenceRange> <observationRange> <text>3.5-5.3</text> </observationRange> </referenceRange> </observation > </component> <component> <observation moodCode="EVN" classCode="OBS"> <templateId root="16.840.1.918535.10..4.2" /> <id nullFlavor="NA" /> <code codeSystem="local" code="eGFR" displayName="EST GFR (MDRD)" /> <statusCode code="completed" /> <effectiveTime value="123522384283" /> <value unit="mL/min" xsi:type ="PQ" value="> 60" /> <referenceRange> <observationRange > <text>> 59</text> </observationRange> </ referenceRange> </observation> </component> <component> <observation moodCode="EVN" classCode="OBS"> <templateId root= "216.840.1.469580.10..22.4.2" /> <id nullFlavor="NA" /> < code codeSystem="local" code="GAP" displayName="ANION GAP" /> < statusCode code="completed" /> <effectiveTime value="954874792155" /> <value unit="mmol/L" xsi:type="PQ" value="13" /> < referenceRange> <observationRange> <text>5-15</text> </observationRange> </referenceRange> </observation> </component> <component> <observation moodCode="EVN" classCode= "OBS"> <templateId root="216.840.1.201640.10...4.2" /> < id nullFlavor="NA" /> <code codeSystem="local" code="eCrCl" displayName ="EST CrCl (CG)" /> <statusCode code="completed" /> < effectiveTime value="102534759123" /> <value unit="mL/min" xsi:type="PQ " value="> 60" /> <referenceRange> <observationRange> <text>> 59</text> </observationRange> </ referenceRange> </observation> </component> <component> <observation moodCode="EVN" classCode="OBS"> <templateId root= "216.840.1.218597.10..22.4.2" /> <id nullFlavor="NA" /> < code codeSystem="local" code="GLU" displayName="GLUCOSE" /> < statusCode code="completed" /> <effectiveTime value="337314912443" /> <value unit="mg/dL" xsi:type="PQ" value="125" /> < interpretationCode codeSystem="local" code="*" /> <referenceRange> <observationRange> <text>70-99</text> </ observationRange> </referenceRange> </observation> </ component> <component> <observation moodCode="EVN" classCode="OBS"> <templateId root="2.16.840.1.615573.10..22.4.2" /> <id nullFlavor="NA" /> <code codeSystem="local" code="CA" displayName= "CALCIUM" /> <statusCode code="completed" /> <effectiveTime value="997820788953" /> <value unit="mg/dL" xsi:type="PQ" value="9.6" / > <referenceRange> <observationRange> <text>8.5 -10.1</text> </observationRange> </referenceRange> </ observation> </component> <component> <observation moodCode= "EVN" classCode="OBS"> <templateId root="2.16.840.1.540489.10..22.4.2 " /> <id nullFlavor="NA" /> <code codeSystem="local" code="BUN " displayName="BLOOD UREA NITROGEN" /> <statusCode code="completed" /> <effectiveTime value="732224333986" /> <value unit="mg/dL" xsi:type="PQ" value="7" /> <referenceRange> < observationRange> <text>7-20</text> </observationRange> </referenceRange> </observation> </component> < component> <observation moodCode="EVN" classCode="OBS"> < templateId root="216.840.1.355003.10..22.4.2" /> <id nullFlavor="NA " /> <code codeSystem="local" code="CREAT" displayName="CREATININE" /> <statusCode code="completed" /> <effectiveTime value= "920422356171" /> <value unit="mg/dL" xsi:type="PQ" value="0.7" /> <referenceRange> <observationRange> <text>0.6-1.0< /text> </observationRange> </referenceRange> </ observation> </component> <component> <observation moodCode= "EVN" classCode="OBS"> <templateId root="16.840.1.192586.10...4.2 " /> <id nullFlavor="NA" /> <code codeSystem="local" code="NA " displayName="SODIUM" /> <statusCode code="completed" /> < effectiveTime value="274749721923" /> <value unit="mmol/L" xsi:type="PQ " value="139" /> <referenceRange> <observationRange> <text>135-148</text> </observationRange> </ referenceRange> </observation> </component> <component> <observation moodCode="EVN" classCode="OBS"> <templateId root= "16.840.1.076017.10..22.4.2" /> <id nullFlavor="NA" /> < code codeSystem="local" code="CL" displayName="CHLORIDE" /> < statusCode code="completed" /> <effectiveTime value="318246501416" /> <value unit="mmol/L" xsi:type="PQ" value="103" /> < referenceRange> <observationRange> <text>98-110</text> </observationRange> </referenceRange> </observation> </component> <component> <observation moodCode="EVN" classCode ="OBS"> <templateId root="216.840.1.283584.10..4.2" /> < id nullFlavor="NA" /> <code codeSystem="local" code="AST" displayName= "AST/SGOT" /> <statusCode code="completed" /> <effectiveTime value="665599906923" /> <value unit="Units/L" xsi:type="PQ" value="16" /> <referenceRange> <observationRange> <text>10 -37</text> </observationRange> </referenceRange> </ observation> </component> <component> <observation moodCode= "EVN" classCode="OBS"> <templateId root="216.840.1.740974.02.09.22.4.2 " /> <id nullFlavor="NA" /> <code codeSystem="local" code="ALT " displayName="ALT/SGPT" /> <statusCode code="completed" /> < effectiveTime value="178369901594" /> <value unit="Units/L" xsi:type= "PQ" value="18" /> <referenceRange> <observationRange> <text>< 66</text> </observationRange> </ referenceRange> </observation> </component> <component> <observation moodCode="EVN" classCode="OBS"> <templateId root= "16.840.1.986426.10...4.2" /> <id nullFlavor="NA" /> < code codeSystem="local" code="CO2" displayName="CARBON DIOXIDE" /> < statusCode code="completed" /> <effectiveTime value="861746931909" /> <value unit="mmol/L" xsi:type="PQ" value="23" /> < referenceRange> <observationRange> <text>21-32</text> </observationRange> </referenceRange> </observation> </component> <component> <observation moodCode="EVN" classCode= "OBS"> <templateId root="06.08.840.1.203770.10.20.22.4.2" /> < id nullFlavor="NA" /> <code codeSystem="local" code="TP" displayName= "TOTAL PROTEIN" /> <statusCode code="completed" /> < effectiveTime value="764592419790" /> <value unit="gm/dL" xsi:type="PQ " value="8.6" /> <interpretationCode codeSystem="local" code="*" /> <referenceRange> <observationRange> <text>6.4-8.2 </text> </observationRange> </referenceRange> </ observation> </component> <component> <observation moodCode= "EVN" classCode="OBS"> <templateId root="840.1.197191.10.22.4.2 " /> <id nullFlavor="NA" /> <code codeSystem="local" code="ALB " displayName="ALBUMIN" /> <statusCode code="completed" /> < effectiveTime value="193895629523" /> <value unit="gm/dL" xsi:type="PQ " value="4.2" /> <referenceRange> <observationRange> <text>3.4-5.0</text> </observationRange> </ referenceRange> </observation> </component> <component> <observation moodCode="EVN" classCode="OBS"> <templateId root= "06.08.840.1.871262.10.20.22.4.2" /> <id nullFlavor="NA" /> < code codeSystem="local" code="BILTOT" displayName="BILI TOTAL" /> < statusCode code="completed" /> <effectiveTime value="830707178404" /> <value unit="mg/dL" xsi:type="PQ" value="0.3" /> < referenceRange> <observationRange> <text>0.0-1.0</text> </observationRange> </referenceRange> </observation > </component> <component> <observation moodCode="EVN" classCode="OBS"> <templateId root="06.08.840.1.486524.10..4.2" /> <id nullFlavor="NA" /> <code codeSystem="local" code="ALKP" displayName="ALKALINE PHOSPHATASE TOTAL" /> <statusCode code="completed " /> <effectiveTime value="916035068187" /> <value unit="IU/L " xsi:type="PQ" value="62" /> <referenceRange> < observationRange> <text>45-117</text> </observationRange > </referenceRange> </observation> </component> </ organizer> </entry> <entry> <organizer moodCode="EVN" classCode="BATTERY"> <templateId root="06.08.840.1.950633.10..4.1" /> <id nullFlavor= "NA" /> <code codeSystem="local" code="LIP" displayName="LIPASE" /> < statusCode code="completed" /> <component> <observation moodCode= "EVN" classCode="OBS"> <templateId root="06.08.840.1.374097.10..4.2 " /> <id nullFlavor="NA" /> <code codeSystem="local" code="LIP " displayName="LIPASE" /> <statusCode code="completed" /> < effectiveTime value="425555542759" /> <value unit="Units/L" xsi:type= "PQ" value="97" /> <referenceRange> <observationRange> <text>73-393</text> </observationRange> </ referenceRange> </observation> </component> </organizer> </entry > <entry> <organizer moodCode="EVN" classCode="BATTERY"> <templateId root="06.08.840.1.384976.10.22.4.1" /> <id nullFlavor="NA" /> <code codeSystem="local" code="PREG" displayName=" TEST, SERUM" /> < statusCode code="completed" /> <component> <observation moodCode= "EVN" classCode="OBS"> <templateId root="06.08.840.1.736434.10..4.2 " /> <id nullFlavor="NA" /> <code codeSystem="local" code= "PREG" displayName=" TEST, SERUM" /> <statusCode code= "completed" /> <effectiveTime value="929860563270" /> <value unit="" xsi:type="PQ" value="NEGATIVE" /> <referenceRange> < observationRange> <text>NEGATIVE</text> </ observationRange> </referenceRange> </observation> </ component> </organizer> </entry> <entry> <organizer moodCode="EVN" classCode="BATTERY"> <templateId root="06.08.840.1.172367.10.22.4.1" /> <id nullFlavor="NA" /> <code codeSystem="local" code="HELICOSCR" displayName="AB H.PYLORI SCREEN" /> <statusCode code="completed" /> < component> <observation moodCode="EVN" classCode="OBS"> < templateId root="06.08.840.1.957591.02.09.22.4.2" /> <id nullFlavor="NA " /> <code codeSystem="local" code="HELICOSCR" displayName="AB H.PYLORI SCREEN" /> <statusCode code="completed" /> < effectiveTime value="551088810648" /> <value unit="" xsi:type="PQ" value="NEGATIVE" /> <referenceRange> <observationRange> <text>NEGATIVE</text> </observationRange> </ referenceRange> </observation> </component> </organizer> </entry > <entry> <organizer moodCode="EVN" classCode="BATTERY"> <templateId root="16.840.1.439841.02.09.22.4.1" /> <id nullFlavor="NA" /> <code codeSystem="local" code="UA" displayName="URINALYSIS, ROUTINE" /> < statusCode code="completed" /> <component> <observation moodCode= "EVN" classCode="OBS"> <templateId root="16.840.1.799031.02.09.22.4.2 " /> <id nullFlavor="NA" /> <code codeSystem="local" code= "LEUESU" displayName="UA LEUKOCYTE ESTERASE DIPSTICK" /> <statusCode code="completed" /> <effectiveTime value="634863833960" /> < value unit="" xsi:type="PQ" value="NEGATIVE" /> <referenceRange> <observationRange> <text>NEGATIVE</text> </ observationRange> </referenceRange> </observation> </ component> <component> <observation moodCode="EVN" classCode="OBS"> <templateId root="216.840.1.562609.02.09.22.4.2" /> <id nullFlavor="NA" /> <code codeSystem="local" code="NITRIU" displayName= "UA NITRITE DIPSTICK" /> <statusCode code="completed" /> < effectiveTime value="135697594933" /> <value unit="" xsi:type="PQ" value="NEGATIVE" /> <referenceRange> <observationRange> <text>NEGATIVE</text> </observationRange> </ referenceRange> </observation> </component> <component> <observation moodCode="EVN" classCode="OBS"> <templateId root= "06.08.840.1.401975.02.09.22.4.2" /> <id nullFlavor="NA" /> < code codeSystem="local" code="PROTEIU" displayName="UA PROTEIN DIPSTICK" /> <statusCode code="completed" /> <effectiveTime value= "197692285572" /> <value unit="" xsi:type="PQ" value="NEGATIVE" /> <referenceRange> <observationRange> <text>NEGATIVE </text> </observationRange> </referenceRange> </ observation> </component> <component> <observation moodCode= "EVN" classCode="OBS"> <templateId root="06.08.840.1.923125.02.09.22.4.2 " /> <id nullFlavor="NA" /> <code codeSystem="local" code= "DGLUU" displayName="UA GLUCOSE DIPSTICK" /> <statusCode code= "completed" /> <effectiveTime value="625389680101" /> <value unit="" xsi:type="PQ" value="NEGATIVE" /> <referenceRange> < observationRange> <text>NEGATIVE</text> </ observationRange> </referenceRange> </observation> </ component> <component> <observation moodCode="EVN" classCode="OBS"> <templateId root="06.08.840.1.258070.02.09.22.4.2" /> <id nullFlavor="NA" /> <code codeSystem="local" code="KETONU" displayName= "UA KETONE DIPSTICK" /> <statusCode code="completed" /> < effectiveTime value="412931679219" /> <value unit="" xsi:type="PQ" value="NEGATIVE" /> <referenceRange> <observationRange> <text>NEGATIVE</text> </observationRange> </ referenceRange> </observation> </component> <component> <observation moodCode="EVN" classCode="OBS"> <templateId root= "16.840.1.427227.10..22.4.2" /> <id nullFlavor="NA" /> < code codeSystem="local" code="UROBILU" displayName="UA UROBILINOGEN DIPSTICK" / > <statusCode code="completed" /> <effectiveTime value= "476496526011" /> <value unit="" xsi:type="PQ" value="NORMAL" /> <referenceRange> <observationRange> <text>NORMAL</ text> </observationRange> </referenceRange> </ observation> </component> <component> <observation moodCode= "EVN" classCode="OBS"> <templateId root="16.840.1.217449.10..22.4.2 " /> <id nullFlavor="NA" /> <code codeSystem="local" code= "BILU" displayName="UA BILIRUBIN DIPSTICK" /> <statusCode code= "completed" /> <effectiveTime value="711374642989" /> <value unit="" xsi:type="PQ" value="NEGATIVE" /> <referenceRange> < observationRange> <text>NEGATIVE</text> </ observationRange> </referenceRange> </observation> </ component> <component> <observation moodCode="EVN" classCode="OBS"> <templateId root="06.08.840.1.732441.22.4.2" /> <id nullFlavor="NA" /> <code codeSystem="local" code="SPENCER" displayName="UA BLOOD DIPSTICK" /> <statusCode code="completed" /> < effectiveTime value="012727313175" /> <value unit="" xsi:type="PQ" value="1+" /> <interpretationCode codeSystem="local" code="*" /> <referenceRange> <observationRange> <text>NEGATIVE</ text> </observationRange> </referenceRange> </ observation> </component> <component> <observation moodCode= "EVN" classCode="OBS"> <templateId root="16.840.1.113990.02.09.22.4.2 " /> <id nullFlavor="NA" /> <code codeSystem="local" code= "SPGRU" displayName="UA SPECIFIC GRAVITY" /> <statusCode code= "completed" /> <effectiveTime value="304989863548" /> <value unit="" xsi:type="PQ" value="1.015" /> <referenceRange> < observationRange> <text>1.015-1.025</text> </ observationRange> </referenceRange> </observation> </ component> <component> <observation moodCode="EVN" classCode="OBS"> <templateId root="06.08.840.1.037599.02.09.22.4.2" /> <id nullFlavor="NA" /> <code codeSystem="local" code="FEROZ" displayName="UR PH" /> <statusCode code="completed" /> <effectiveTime value= "852758911104" /> <value unit="" xsi:type="PQ" value="7.0" /> <referenceRange> <observationRange> <text>5.0-7.0</text > </observationRange> </referenceRange> </observation > </component> </organizer> </entry> <entry> <organizer moodCode= "EVN" classCode="BATTERY"> <templateId root="16.840.1.401653.22.4.1 " /> <id nullFlavor="NA" /> <code codeSystem="local" code="UAMICRO" displayName="UA MICROSCOPIC" /> <statusCode code="completed" /> < component> <observation moodCode="EVN" classCode="OBS"> < templateId root="16.840.1.083435.02.09.22.4.2" /> <id nullFlavor="NA " /> <code codeSystem="local" code="BACU" displayName="UA BACTERIA" /> <statusCode code="completed" /> <effectiveTime value= "850257111560" /> <value unit="" xsi:type="PQ" value="2+" /> < interpretationCode codeSystem="local" code="*" /> <referenceRange> <observationRange> <text>NEGATIVE</text> </ observationRange> </referenceRange> </observation> </ component> <component> <observation moodCode="EVN" classCode="OBS"> <templateId root="16.840.1.750688.02.09.22.4.2" /> <id nullFlavor="NA" /> <code codeSystem="local" code="EPIU" displayName=" UA EPITHELIAL CELLS" /> <statusCode code="completed" /> < effectiveTime value="893559425727" /> <value unit="epi/hpf" xsi:type= "PQ" value="3+" /> <interpretationCode codeSystem="local" code="*" /> <referenceRange> <observationRange> <text>0 - 1 +</text> </observationRange> </referenceRange> </ observation> </component> <component> <observation moodCode= "EVN" classCode="OBS"> <templateId root="216.840.1.477789.10.22.4.2 " /> <id nullFlavor="NA" /> <code codeSystem="local" code= "RBCU" displayName="UA RBC" /> <statusCode code="completed" /> <effectiveTime value="633163900722" /> <value unit="rbc/hpf" xsi:type ="PQ" value="0-3" /> <referenceRange> <observationRange> <text>0 - 3</text> </observationRange> </ referenceRange> </observation> </component> <component> <observation moodCode="EVN" classCode="OBS"> <templateId root= "216.840.1.534054.02.09.22.4.2" /> <id nullFlavor="NA" /> < code codeSystem="local" code="UAVOL" displayName="UA VOLUME FOR EXAM" /> <statusCode code="completed" /> <effectiveTime value="381725688533" /> <value unit="mL" xsi:type="PQ" value="12.0" /> < referenceRange> <observationRange> <text>(12mL STD)</ text> </observationRange> </referenceRange> </ observation> </component> <component> <observation moodCode= "EVN" classCode="OBS"> <templateId root="216.840.1.643373.10..22.4.2 " /> <id nullFlavor="NA" /> <code codeSystem="local" code= "WBCU" displayName="UA WBC" /> <statusCode code="completed" /> <effectiveTime value="791571338507" /> <value unit="wbc/hpf" xsi:type ="PQ" value="0" /> <referenceRange> <observationRange> <text>0 - 5</text> </observationRange> </ referenceRange> </observation> </component> </organizer> </entry > <entry> <organizer moodCode="EVN" classCode="BATTERY"> <templateId root="216.840.1.698512.10.20.22.4.1" /> <id nullFlavor="NA" /> <code codeSystem="local" code="10679-0" displayName="Automated blood complete blood count (hemogram) panel" /> <statusCode code="completed" /> <component > <observation moodCode="EVN" classCode="OBS"> <templateId root= "216.840.1.805813.10.20.22.4.2" /> <id nullFlavor="NA" /> < code codeSystem="local" code="6690-2" displayName="Blood leukocytes automated count (number/volume)" /> <statusCode code="completed" /> < effectiveTime value="887331114697" /> <value unit="10*3/uL" xsi:type= "PQ" value="4.9" /> <referenceRange> <observationRange> <text>4.3-11.0</text> </observationRange> </ referenceRange> </observation> </component> <component> <observation moodCode="EVN" classCode="OBS"> <templateId root= "06.08.840.1.313666.10..22.4.2" /> <id nullFlavor="NA" /> < code codeSystem="local" code="789-8" displayName="Blood erythrocytes automated count (number/volume)" /> <statusCode code="completed" /> < effectiveTime value="898230276416" /> <value unit="10*6/uL" xsi:type= "PQ" value="3.43" /> <interpretationCode codeSystem="local" code="" / > <referenceRange> <observationRange> <text> 4.35-5.85</text> </observationRange> </referenceRange> </observation> </component> <component> <observation moodCode="EVN" classCode="OBS"> <templateId root= "2.16.840.1.782721.10.20.22.4.2" /> <id nullFlavor="NA" /> < code codeSystem="local" code="85489-5" displayName="Venous blood hemoglobin measurement (mass/volume)" /> <statusCode code="completed" /> <effectiveTime value="470642884682" /> <value unit="g/dL" xsi:type="PQ " value="11.8" /> <referenceRange> <observationRange> <text>11.5-16.0</text> </observationRange> </ referenceRange> </observation> </component> <component> <observation moodCode="EVN" classCode="OBS"> <templateId root= "216.840.1.710723.10..22.4.2" /> <id nullFlavor="NA" /> < code codeSystem="local" code="96949-5" displayName="Blood hematocrit (volume fraction)" /> <statusCode code="completed" /> <effectiveTime value="075933316715" /> <value unit="%" xsi:type="PQ" value="36" / > <referenceRange> <observationRange> <text>35- 52</text> </observationRange> </referenceRange> </ observation> </component> <component> <observation moodCode= "EVN" classCode="OBS"> <templateId root="2.16.840.1.350254.10.20.22.4.2 " /> <id nullFlavor="NA" /> <code codeSystem="local" code="787 -2" displayName="Automated erythrocyte mean corpuscular volume" /> < statusCode code="completed" /> <effectiveTime value="757370050667" /> <value unit="[foz_us]" xsi:type="PQ" value="104" /> < interpretationCode codeSystem="local" code="" /> <referenceRange> <observationRange> <text>80-99</text> </ observationRange> </referenceRange> </observation> </ component> <component> <observation moodCode="EVN" classCode="OBS"> <templateId root="2.16.840.1.467762.10.20.22.4.2" /> <id nullFlavor="NA" /> <code codeSystem="local" code="785-6" displayName= "Automated erythrocyte mean corpuscular hemoglobin (mass per erythrocyte)" /> <statusCode code="completed" /> <effectiveTime value= "489874979582" /> <value unit="pg" xsi:type="PQ" value="34" /> <referenceRange> <observationRange> <text>25-34</text > </observationRange> </referenceRange> </observation > </component> <component> <observation moodCode="EVN" classCode="OBS"> <templateId root="2.16.840.1.181408.10..22.4.2" /> <id nullFlavor="NA" /> <code codeSystem="local" code="786-4" displayName="Automated erythrocyte mean corpuscular hemoglobin concentration measurement (mass/volume)" /> <statusCode code="completed" /> <effectiveTime value="708736397524" /> <value unit="g/dL" xsi:type="PQ " value="33" /> <referenceRange> <observationRange> <text>32-36</text> </observationRange> </ referenceRange> </observation> </component> <component> <observation moodCode="EVN" classCode="OBS"> <templateId root= "2.16.840.1.987834.10.20.22.4.2" /> <id nullFlavor="NA" /> < code codeSystem="local" code="788-0" displayName="Automated erythrocyte distribution width ratio" /> <statusCode code="completed" /> < effectiveTime value="349102024457" /> <value unit="%" xsi:type="PQ " value="13.3" /> <referenceRange> <observationRange> <text>10.0-14.5</text> </observationRange> </ referenceRange> </observation> </component> <component> <observation moodCode="EVN" classCode="OBS"> <templateId root= "216.840.1.788507.10..4.2" /> <id nullFlavor="NA" /> < code codeSystem="local" code="777-3" displayName="Automated blood platelet count (count/volume)" /> <statusCode code="completed" /> < effectiveTime value="374421898695" /> <value unit="10*3/uL" xsi:type= "PQ" value="302" /> <referenceRange> <observationRange> <text>130-400</text> </observationRange> </ referenceRange> </observation> </component> <component> <observation moodCode="EVN" classCode="OBS"> <templateId root= "2.16.840.1.791554.10.20.22.4.2" /> <id nullFlavor="NA" /> < code codeSystem="local" code="45919-3" displayName="Automated blood platelet mean volume measurement" /> <statusCode code="completed" /> < effectiveTime value="285568505669" /> <value unit="[foz_us]" xsi:type= "PQ" value="8.5" /> <referenceRange> <observationRange> <text>7.4-10.4</text> </observationRange> </ referenceRange> </observation> </component> </organizer> </entry > <entry> <organizer moodCode="EVN" classCode="BATTERY"> <templateId root="2.16.840.1.835723.10.20.22.4.1" /> <id nullFlavor="NA" /> <code codeSystem="local" code="2117-11" displayName="Serum or plasma choriogonadotropin ( test) detection" /> <statusCode code= "completed" /> <component> <observation moodCode="EVN" classCode= "OBS"> <templateId root="216.840.1.725746.10.20.22.4.2" /> < id nullFlavor="NA" /> <code codeSystem="local" code="2117-11" displayName="Serum or plasma choriogonadotropin ( test) detection" /> <statusCode code="completed" /> <effectiveTime value= "878485865112" /> <value unit="" xsi:type="PQ" value="NEGATIVE" /> <referenceRange> <observationRange> <text>NEGATIVE </text> </observationRange> </referenceRange> </ observation> </component> </organizer> </entry> <entry> <organizer moodCode="EVN" classCode="BATTERY"> <templateId root= "2.16.840.1.430759.10.20.22.4.1" /> <id nullFlavor="NA" /> <code codeSystem="local" code="05805-0" displayName="Liver function panel (serum or plasma alk phos, alb, total and direct bili, total protein, ALT, AST)" /> < statusCode code="completed" /> <component> <observation moodCode= "EVN" classCode="OBS"> <templateId root="2.16.840.1.993983.10.20.22.4.2 " /> <id nullFlavor="NA" /> <code codeSystem="local" code= "1974-05" displayName="Serum or plasma total bilirubin measurement (mass/volume) " /> <statusCode code="completed" /> <effectiveTime value= "469585077124" /> <value unit="mg/dL" xsi:type="PQ" value="0.2" /> <referenceRange> <observationRange> <text>0.1-1.0< /text> </observationRange> </referenceRange> </ observation> </component> <component> <observation moodCode= "EVN" classCode="OBS"> <templateId root="06.08.840.1.694626.10...4.2 " /> <id nullFlavor="NA" /> <code codeSystem="local" code= "67686" displayName="Serum or plasma alkaline phosphatase measurement ( enzymatic activity/volume)" /> <statusCode code="completed" /> <effectiveTime value="160238826394" /> <value unit="U/L" xsi:type="PQ " value="45" /> <referenceRange> <observationRange> <text>40-136</text> </observationRange> </ referenceRange> </observation> </component> <component> <observation moodCode="EVN" classCode="OBS"> <templateId root= "06.08.840.1.143366.10.20.22.4.2" /> <id nullFlavor="NA" /> < code codeSystem="local" code="1919-11" displayName="Serum or plasma aspartate aminotransferase measurement (enzymatic activity/volume)" /> < statusCode code="completed" /> <effectiveTime value="480671657991" /> <value unit="U/L" xsi:type="PQ" value="19" /> <referenceRange > <observationRange> <text>5-34</text> </ observationRange> </referenceRange> </observation> </ component> <component> <observation moodCode="EVN" classCode="OBS"> <templateId root="2.16.840.1.243397.10.20.22.4.2" /> <id nullFlavor="NA" /> <code codeSystem="local" code="1742-6" displayName= "Serum or plasma alanine aminotransferase measurement (enzymatic activity/volume )" /> <statusCode code="completed" /> <effectiveTime value= "149947470543" /> <value unit="U/L" xsi:type="PQ" value="12" /> <referenceRange> <observationRange> <text>0-55</text > </observationRange> </referenceRange> </observation > </component> <component> <observation moodCode="EVN" classCode="OBS"> <templateId root="2.16.840.1.533061.10.20.22.4.2" /> <id nullFlavor="NA" /> <code codeSystem="local" code="2885-2" displayName="Serum or plasma protein measurement (mass/volume)" /> < statusCode code="completed" /> <effectiveTime value="716077422764" /> <value unit="g/dL" xsi:type="PQ" value="6.9" /> < referenceRange> <observationRange> <text>6.4-8.2</text> </observationRange> </referenceRange> </observation > </component> <component> <observation moodCode="EVN" classCode="OBS"> <templateId root="216.840.1.316732.10.20.22.4.2" /> <id nullFlavor="NA" /> <code codeSystem="local" code="1750-10" displayName="Serum or plasma albumin measurement (mass/volume)" /> < statusCode code="completed" /> <effectiveTime value="194013368490" /> <value unit="g/dL" xsi:type="PQ" value="4.3" /> < referenceRange> <observationRange> <text>3.2-4.5</text> </observationRange> </referenceRange> </observation > </component> <component> <observation moodCode="EVN" classCode="OBS"> <templateId root="2.16.840.1.352742.10..22.4.2" /> <id nullFlavor="NA" /> <code codeSystem="local" code="1967-10" displayName="Bilirubin direct" /> <statusCode code="completed" /> <effectiveTime value="948466239019" /> <value unit="mg/dL" xsi: type="PQ" value="<" /> <referenceRange> <observationRange > <text>0.0-0.3</text> </observationRange> </ referenceRange> </observation> </component> <component> <observation moodCode="EVN" classCode="OBS"> <templateId root= "16.840.1.352041.10.20.22.4.2" /> <id nullFlavor="NA" /> < code codeSystem="local" code="1970-04" displayName="Serum or plasma indirect bilirubin measurement (mass/volume)" /> <statusCode code="completed" / > <effectiveTime value="305772934765" /> <value unit="mg/dL" xsi:type="PQ" value="0.1" /> <referenceRange> < observationRange> <text>NRG</text> </observationRange> </referenceRange> </observation> </component> </ organizer> </entry> <entry> <organizer moodCode="EVN" classCode="BATTERY"> <templateId root="216.840.1.550298.10..22.4.1" /> <id nullFlavor= "NA" /> <code codeSystem="local" code="15809-4" displayName="Whole blood basic metabolic panel" /> <statusCode code="completed" /> <component> <observation moodCode="EVN" classCode="OBS"> <templateId root= "216.840.1.536087.10..22.4.2" /> <id nullFlavor="NA" /> < code codeSystem="local" code="2951-2" displayName="Serum or plasma sodium measurement (moles/volume)" /> <statusCode code="completed" /> <effectiveTime value="251974836921" /> <value unit="mmol/L" xsi:type= "PQ" value="137" /> <referenceRange> <observationRange> <text>135-145</text> </observationRange> </ referenceRange> </observation> </component> <component> <observation moodCode="EVN" classCode="OBS"> <templateId root= "16.840.1.782121.10..22.4.2" /> <id nullFlavor="NA" /> < code codeSystem="local" code="2823-3" displayName="Serum or plasma potassium measurement (moles/volume)" /> <statusCode code="completed" /> <effectiveTime value="855941790000" /> <value unit="mmol/L" xsi:type= "PQ" value="4.1" /> <referenceRange> <observationRange> <text>3.6-5.0</text> </observationRange> </ referenceRange> </observation> </component> <component> <observation moodCode="EVN" classCode="OBS"> <templateId root= "216.840.1.675233.10..22.4.2" /> <id nullFlavor="NA" /> < code codeSystem="local" code="" displayName="Serum or plasma chloride measurement (moles/volume)" /> <statusCode code="completed" /> <effectiveTime value="352480867075" /> <value unit="mmol/L" xsi:type= "PQ" value="106" /> <referenceRange> <observationRange> <text>98-107</text> </observationRange> </ referenceRange> </observation> </component> <component> <observation moodCode="EVN" classCode="OBS"> <templateId root= "06.08.840.1.374712.10.22.4.2" /> <id nullFlavor="NA" /> < code codeSystem="local" code="2027-12" displayName="Carbon dioxide" /> < statusCode code="completed" /> <effectiveTime value="903552950048" /> <value unit="mmol/L" xsi:type="PQ" value="22" /> < referenceRange> <observationRange> <text>21-32</text> </observationRange> </referenceRange> </observation> </component> <component> <observation moodCode="EVN" classCode= "OBS"> <templateId root="06.08.840.1.562523.10..22.4.2" /> < id nullFlavor="NA" /> <code codeSystem="local" code="39636-5" displayName="Serum or plasma anion gap determination (moles/volume)" /> <statusCode code="completed" /> <effectiveTime value="056485621940" / > <value unit="mmol/L" xsi:type="PQ" value="9" /> < referenceRange> <observationRange> <text>5-14</text> </observationRange> </referenceRange> </observation> </component> <component> <observation moodCode="EVN" classCode= "OBS"> <templateId root="2.16.840.1.611732.10..4.2" /> < id nullFlavor="NA" /> <code codeSystem="local" code="3094-0" displayName="Serum or plasma urea nitrogen measurement (mass/volume)" /> <statusCode code="completed" /> <effectiveTime value="112058560790" /> <value unit="mg/dL" xsi:type="PQ" value="10" /> < referenceRange> <observationRange> <text>7-18</text> </observationRange> </referenceRange> </observation> </component> <component> <observation moodCode="EVN" classCode= "OBS"> <templateId root="2.16.840.1.529248.10..4.2" /> < id nullFlavor="NA" /> <code codeSystem="local" code="2160-0" displayName="Serum or plasma creatinine measurement (mass/volume)" /> < statusCode code="completed" /> <effectiveTime value="617164976781" /> <value unit="mg/dL" xsi:type="PQ" value="0.65" /> < referenceRange> <observationRange> <text>0.60-1.30</text > </observationRange> </referenceRange> </observation > </component> <component> <observation moodCode="EVN" classCode="OBS"> <templateId root="2.16.840.1.954066.10..22.4.2" /> <id nullFlavor="NA" /> <code codeSystem="local" code="3097-3" displayName="Serum or plasma urea nitrogen/creatinine mass ratio" /> < statusCode code="completed" /> <effectiveTime value="799272134949" /> <value unit="" xsi:type="PQ" value="15" /> <referenceRange> <observationRange> <text>NRG</text> </ observationRange> </referenceRange> </observation> </ component> <component> <observation moodCode="EVN" classCode="OBS"> <templateId root="2.16.840.1.916605.10..4.2" /> <id nullFlavor="NA" /> <code codeSystem="local" code="63555-2" displayName= "Serum or plasma creatinine measurement with calculation of estimated glomerular filtration rate" /> <statusCode code="completed" /> <effectiveTime value="132720571314" /> <value unit="" xsi:type="PQ" value=">" /> <referenceRange> <observationRange> <text>NRG</text> </observationRange> </referenceRange > </observation> </component> <component> <observation moodCode="EVN" classCode="OBS"> <templateId root= "2.16.840.1.070963.10..22.4.2" /> <id nullFlavor="NA" /> < code codeSystem="local" code="2345-7" displayName="Serum or plasma glucose measurement (mass/volume)" /> <statusCode code="completed" /> <effectiveTime value="186150179349" /> <value unit="mg/dL" xsi:type="PQ " value="78" /> <referenceRange> <observationRange> <text>70-105</text> </observationRange> </ referenceRange> </observation> </component> <component> <observation moodCode="EVN" classCode="OBS"> <templateId root= "2.16.840.1.544238.10.20.22.4.2" /> <id nullFlavor="NA" /> < code codeSystem="local" code="25372-7" displayName="Serum or plasma calcium measurement (mass/volume)" /> <statusCode code="completed" /> <effectiveTime value="284704147198" /> <value unit="mg/dL" xsi:type="PQ " value="8.9" /> <referenceRange> <observationRange> <text>8.5-10.1</text> </observationRange> </ referenceRange> </observation> </component> </organizer> </entry > <entry> <organizer moodCode="EVN" classCode="BATTERY"> <templateId root="2.16.840.1.372545.10.20.22.4.1" /> <id nullFlavor="NA" /> <code codeSystem="local" code="5643-2" displayName="Serum or plasma ethanol measurement (mass/volume)" /> <statusCode code="completed" /> < component> <observation moodCode="EVN" classCode="OBS"> < templateId root="2.16.840.1.872255.10.20.22.4.2" /> <id nullFlavor="NA " /> <code codeSystem="local" code="5643-2" displayName="Serum or plasma ethanol measurement (mass/volume)" /> <statusCode code= "completed" /> <effectiveTime value="969506363953" /> <value unit="mg/dL" xsi:type="PQ" value="<" /> <referenceRange> <observationRange> <text><10</text> </ observationRange> </referenceRange> </observation> </ component> </organizer> </entry> <entry> <organizer moodCode="EVN" classCode="BATTERY"> <templateId root="216.840.1.989198.10..22.4.1" /> <id nullFlavor="NA" /> <code codeSystem="local" code="74969-9" displayName="Serum or plasma thyrotropin measurement by detection limit <= 0.05 miu/l (units/volume)" /> <statusCode code="completed" /> < component> <observation moodCode="EVN" classCode="OBS"> < templateId root="216.840.1.308925.10..22.4.2" /> <id nullFlavor="NA " /> <code codeSystem="local" code="86637-1" displayName="Serum or plasma thyrotropin measurement by detection limit <=0.05 miu/l (units/volume) " /> <statusCode code="completed" /> <effectiveTime value= "517416660610" /> <value unit="u[iU]/mL" xsi:type="PQ" value="2.23" /> <referenceRange> <observationRange> <text>0.35 -4.94</text> </observationRange> </referenceRange> </ observation> </component> </organizer> </entry> <entry> <organizer moodCode="EVN" classCode="BATTERY"> <templateId root= "216.840.1.367829.10..22.4.1" /> <id nullFlavor="NA" /> <code codeSystem="local" code="42357-3" displayName="Complete urinalysis with reflex to culture" /> <statusCode code="completed" /> <component> < observation moodCode="EVN" classCode="OBS"> <templateId root= "840.1.494251.10..22.4.2" /> <id nullFlavor="NA" /> < code codeSystem="local" code="5778-6" displayName="Urine color determination" / > <statusCode code="completed" /> <effectiveTime value= "240223126821" /> <value unit="" xsi:type="PQ" value="YELLOW" /> <referenceRange> <observationRange> <text>NRG</text > </observationRange> </referenceRange> </observation > </component> <component> <observation moodCode="EVN" classCode="OBS"> <templateId root="216.840.1.767289.10..4.2" /> <id nullFlavor="NA" /> <code codeSystem="local" code="05834-0 " displayName="Urine clarity determination" /> <statusCode code= "completed" /> <effectiveTime value="490151151912" /> <value unit="" xsi:type="PQ" value="CLEAR" /> <referenceRange> < observationRange> <text>NRG</text> </observationRange> </referenceRange> </observation> </component> < component> <observation moodCode="EVN" classCode="OBS"> < templateId root="216.840.1.594112.10.22.4.2" /> <id nullFlavor="NA " /> <code codeSystem="local" code="5803-2" displayName="Urine pH measurement by test strip" /> <statusCode code="completed" /> <effectiveTime value="695405720737" /> <value unit="" xsi:type="PQ" value="5" /> <referenceRange> <observationRange> <text>5-9</text> </observationRange> </referenceRange> </observation> </component> <component> <observation moodCode="EVN" classCode="OBS"> <templateId root= "216.840.1.372134.10..4.2" /> <id nullFlavor="NA" /> < code codeSystem="local" code="5811-5" displayName="Specific gravity of urine by test strip" /> <statusCode code="completed" /> <effectiveTime value="" /> <value unit="" xsi:type="PQ" value="1.005" /> <interpretationCode codeSystem="local" code="" /> < referenceRange> <observationRange> <text>1.016-1.022</ text> </observationRange> </referenceRange> </ observation> </component> <component> <observation moodCode= "EVN" classCode="OBS"> <templateId root="06.08.840.1.296428.02.09.22.4.2 " /> <id nullFlavor="NA" /> <code codeSystem="local" code= "54888-4" displayName="Urine protein assay by test strip, semi-quantitative" /> <statusCode code="completed" /> <effectiveTime value= "727967542114" /> <value unit="" xsi:type="PQ" value="NEGATIVE" /> <referenceRange> <observationRange> <text>NEGATIVE </text> </observationRange> </referenceRange> </ observation> </component> <component> <observation moodCode= "EVN" classCode="OBS"> <templateId root="16.840.1.154273.1022.4.2 " /> <id nullFlavor="NA" /> <code codeSystem="local" code= "80588-3" displayName="Urine glucose detection by automated test strip" /> <statusCode code="completed" /> <effectiveTime value=" " /> <value unit="" xsi:type="PQ" value="NEGATIVE" /> < referenceRange> <observationRange> <text>NEGATIVE</text > </observationRange> </referenceRange> </observation > </component> <component> <observation moodCode="EVN" classCode="OBS"> <templateId root="216.840.1.784130.10.22.4.2" /> <id nullFlavor="NA" /> <code codeSystem="local" code="46742-2 " displayName="Erythrocytes detection in urine sediment by light microscopy" /> <statusCode code="completed" /> <effectiveTime value= "336702257532" /> <value unit="" xsi:type="PQ" value="NEGATIVE" /> <referenceRange> <observationRange> <text>NEGATIVE </text> </observationRange> </referenceRange> </ observation> </component> <component> <observation moodCode= "EVN" classCode="OBS"> <templateId root="06.08.840.1.192327.10.22.4.2 " /> <id nullFlavor="NA" /> <code codeSystem="local" code= "79639-7" displayName="Urine ketones detection by automated test strip" /> <statusCode code="completed" /> <effectiveTime value="612598881224 " /> <value unit="" xsi:type="PQ" value="NEGATIVE" /> < referenceRange> <observationRange> <text>NEGATIVE</text > </observationRange> </referenceRange> </observation > </component> <component> <observation moodCode="EVN" classCode="OBS"> <templateId root="16.840.1.410985.10.20.22.4.2" /> <id nullFlavor="NA" /> <code codeSystem="local" code="5802-4" displayName="Urine nitrite detection by test strip" /> <statusCode code ="completed" /> <effectiveTime value="049031705444" /> <value unit="" xsi:type="PQ" value="NEGATIVE" /> <referenceRange> < observationRange> <text>NEGATIVE</text> </ observationRange> </referenceRange> </observation> </ component> <component> <observation moodCode="EVN" classCode="OBS"> <templateId root="216.840.1.977613.10..22.4.2" /> <id nullFlavor="NA" /> <code codeSystem="local" code="5770-3" displayName= "Urine total bilirubin detection by test strip" /> <statusCode code= "completed" /> <effectiveTime value="306731114968" /> <value unit="" xsi:type="PQ" value="NEGATIVE" /> <referenceRange> < observationRange> <text>NEGATIVE</text> </ observationRange> </referenceRange> </observation> </ component> <component> <observation moodCode="EVN" classCode="OBS"> <templateId root="216.840.1.673783.10..22.4.2" /> <id nullFlavor="NA" /> <code codeSystem="local" code="64852-1" displayName= "Urine urobilinogen measurement by automated test strip (mass/volume)" /> <statusCode code="completed" /> <effectiveTime value="579843215836 " /> <value unit="" xsi:type="PQ" value="NORMAL" /> < referenceRange> <observationRange> <text>NORMAL</text> </observationRange> </referenceRange> </observation> </component> <component> <observation moodCode="EVN" classCode ="OBS"> <templateId root="216.840.1.587012.1022.4.2" /> < id nullFlavor="NA" /> <code codeSystem="local" code="5799-2" displayName="Urine leukocyte esterase detection by dipstick" /> < statusCode code="completed" /> <effectiveTime value="460589765577" /> <value unit="" xsi:type="PQ" value="NEGATIVE" /> < referenceRange> <observationRange> <text>NEGATIVE</text > </observationRange> </referenceRange> </observation > </component> <component> <observation moodCode="EVN" classCode="OBS"> <templateId root="2.16.840.1.612614.10.4.2" /> <id nullFlavor="NA" /> <code codeSystem="local" code="88031-5 " displayName="Automated urine sediment erythrocyte count by microscopy (number/ high power field)" /> <statusCode code="completed" /> < effectiveTime value="191845092953" /> <value unit="" xsi:type="PQ" value="NONE" /> <referenceRange> <observationRange> <text>NRG</text> </observationRange> </referenceRange > </observation> </component> <component> <observation moodCode="EVN" classCode="OBS"> <templateId root= "2.16.840.1.867430.10..4.2" /> <id nullFlavor="NA" /> < code codeSystem="local" code="5821-4" displayName="Automated urine sediment leukocyte count by microscopy (number/high power field)" /> < statusCode code="completed" /> <effectiveTime value="163223591851" /> <value unit="" xsi:type="PQ" value="RARE" /> <referenceRange> <observationRange> <text>NRG</text> </ observationRange> </referenceRange> </observation> </ component> <component> <observation moodCode="EVN" classCode="OBS"> <templateId root="216.840.1.743310.10..22.4.2" /> <id nullFlavor="NA" /> <code codeSystem="local" code="10355-2" displayName= "Bacteria detection in urine sediment by light microscopy" /> < statusCode code="completed" /> <effectiveTime value="334879986251" /> <value unit="" xsi:type="PQ" value="TRACE" /> <referenceRange > <observationRange> <text>NRG</text> </ observationRange> </referenceRange> </observation> </ component> <component> <observation moodCode="EVN" classCode="OBS"> <templateId root="2.840.1.759347.10.4.2" /> <id nullFlavor="NA" /> <code codeSystem="local" code="63853-2" displayName= "Squamous epithelial cells detection in urine sediment by light microscopy" /> <statusCode code="completed" /> <effectiveTime value= "320443100175" /> <value unit="" xsi:type="PQ" value="2-5" /> <referenceRange> <observationRange> <text>NRG</text> </observationRange> </referenceRange> </observation> </component> <component> <observation moodCode="EVN" classCode= "OBS"> <templateId root="216.840.1.966322.10..22.4.2" /> < id nullFlavor="NA" /> <code codeSystem="local" code="39831-4" displayName="Crystals detection in urine sediment by light microscopy" /> <statusCode code="completed" /> <effectiveTime value="931294853062 " /> <value unit="" xsi:type="PQ" value="NONE" /> < referenceRange> <observationRange> <text>NRG</text> </observationRange> </referenceRange> </observation> </component> <component> <observation moodCode="EVN" classCode= "OBS"> <templateId root="216.840.1.673790.10.20.22.4.2" /> < id nullFlavor="NA" /> <code codeSystem="local" code="28556-8" displayName="Casts detection in urine sediment by light microscopy" /> <statusCode code="completed" /> <effectiveTime value="693310757148" /> <value unit="" xsi:type="PQ" value="NONE" /> <referenceRange > <observationRange> <text>NRG</text> </ observationRange> </referenceRange> </observation> </ component> <component> <observation moodCode="EVN" classCode="OBS"> <templateId root="06.08.840.1.099245.10.2022.4.2" /> <id nullFlavor="NA" /> <code codeSystem="local" code="8247-9" displayName= "Mucus detection in urine sediment by light microscopy" /> <statusCode code="completed" /> <effectiveTime value="696238014310" /> < value unit="" xsi:type="PQ" value="NEGATIVE" /> <referenceRange> <observationRange> <text>NRG</text> </ observationRange> </referenceRange> </observation> </ component> <component> <observation moodCode="EVN" classCode="OBS"> <templateId root="16.840.1.021794.10.20.22.4.2" /> <id nullFlavor="NA" /> <code codeSystem="local" code="08735-1" displayName= "Complete urinalysis with reflex to culture" /> <statusCode code= "completed" /> <effectiveTime value="508273248144" /> <value unit="" xsi:type="PQ" value="NO" /> <referenceRange> < observationRange> <text>NRG</text> </observationRange> </referenceRange> </observation> </component> </ organizer> </entry> <entry> <organizer moodCode="EVN" classCode="BATTERY"> <templateId root="216.840.1.594039.10.20.22.4.1" /> <id nullFlavor= "NA" /> <code codeSystem="local" code="83849-1" displayName="Urine drug screening test" /> <statusCode code="completed" /> <component> <observation moodCode="EVN" classCode="OBS"> <templateId root= "216.840.1.830650.10..22.4.2" /> <id nullFlavor="NA" /> < code codeSystem="local" code="92250-6" displayName="Urine phencyclidine detection by screening method" /> <statusCode code="completed" /> <effectiveTime value="290929446472" /> <value unit="" xsi:type="PQ " value="NEGATIVE" /> <referenceRange> <observationRange> <text>NEGATIVE</text> </observationRange> </ referenceRange> </observation> </component> <component> <observation moodCode="EVN" classCode="OBS"> <templateId root= "16.840.1.652030.10..22.4.2" /> <id nullFlavor="NA" /> < code codeSystem="local" code="09845-2" displayName="Urine benzodiazepines detection by screening method" /> <statusCode code="completed" /> <effectiveTime value="228658190492" /> <value unit="" xsi:type="PQ " value="NEGATIVE" /> <referenceRange> <observationRange> <text>NEGATIVE</text> </observationRange> </ referenceRange> </observation> </component> <component> <observation moodCode="EVN" classCode="OBS"> <templateId root= "216.840.1.849251.10.22.4.2" /> <id nullFlavor="NA" /> < code codeSystem="local" code="3397-7" displayName="Urine cocaine detection" /> <statusCode code="completed" /> <effectiveTime value= "306049675170" /> <value unit="" xsi:type="PQ" value="NEGATIVE" /> <referenceRange> <observationRange> <text>NEGATIVE </text> </observationRange> </referenceRange> </ observation> </component> <component> <observation moodCode= "EVN" classCode="OBS"> <templateId root="216.840.1.058720.10.22.4.2 " /> <id nullFlavor="NA" /> <code codeSystem="local" code= "58480-1" displayName="Urine amphetamines detection by screening method" /> <statusCode code="completed" /> <effectiveTime value= "078680573401" /> <value unit="" xsi:type="PQ" value="NEGATIVE" /> <referenceRange> <observationRange> <text>NEGATIVE </text> </observationRange> </referenceRange> </ observation> </component> <component> <observation moodCode= "EVN" classCode="OBS"> <templateId root="216.840.1.293575.10.20.22.4.2 " /> <id nullFlavor="NA" /> <code codeSystem="local" code= "23374-5" displayName="Urine methamphetamine detection by screening method" /> <statusCode code="completed" /> <effectiveTime value= "616176055089" /> <value unit="" xsi:type="PQ" value="NEGATIVE" /> <referenceRange> <observationRange> <text>NEGATIVE </text> </observationRange> </referenceRange> </ observation> </component> <component> <observation moodCode= "EVN" classCode="OBS"> <templateId root="216.840.1.423470.10.22.4.2 " /> <id nullFlavor="NA" /> <code codeSystem="local" code= "95095-3" displayName="Urine cannabinoids detection by screening method" /> <statusCode code="completed" /> <effectiveTime value= "875147751806" /> <value unit="" xsi:type="PQ" value="NEGATIVE" /> <referenceRange> <observationRange> <text>NEGATIVE </text> </observationRange> </referenceRange> </ observation> </component> <component> <observation moodCode= "EVN" classCode="OBS"> <templateId root="06.08.840.1.288747.10...4.2 " /> <id nullFlavor="NA" /> <code codeSystem="local" code= "98853-3" displayName="Urine opiates detection by screening method" /> <statusCode code="completed" /> <effectiveTime value="751242135366" /> <value unit="" xsi:type="PQ" value="NEGATIVE" /> < referenceRange> <observationRange> <text>NEGATIVE</text > </observationRange> </referenceRange> </observation > </component> <component> <observation moodCode="EVN" classCode="OBS"> <templateId root="06.08.840.1.294945.02.09.22.4.2" /> <id nullFlavor="NA" /> <code codeSystem="local" code="3377-9" displayName="Urine barbiturates detection" /> <statusCode code= "completed" /> <effectiveTime value="129882637461" /> <value unit="" xsi:type="PQ" value="NEGATIVE" /> <referenceRange> < observationRange> <text>NEGATIVE</text> </ observationRange> </referenceRange> </observation> </ component> <component> <observation moodCode="EVN" classCode="OBS"> <templateId root="2.16.840.1.533785.02.09.22.4.2" /> <id nullFlavor="NA" /> <code codeSystem="local" code="54206-9" displayName= "Screening urine tricyclic antidepressants detection" /> <statusCode code="completed" /> <effectiveTime value="430235082676" /> < value unit="" xsi:type="PQ" value="POSITIVE" /> <interpretationCode codeSystem="local" code="*" /> <referenceRange> < observationRange> <text>NEGATIVE</text> </ observationRange> </referenceRange> </observation> </ component> <component> <observation moodCode="EVN" classCode="OBS"> <templateId root="2.16.840.1.229220.02.09.22.4.2" /> <id nullFlavor="NA" /> <code codeSystem="local" code="08484-3" displayName= "Urine methadone detection by screening method" /> <statusCode code= "completed" /> <effectiveTime value="530298748810" /> <value unit="" xsi:type="PQ" value="NEGATIVE" /> <referenceRange> < observationRange> <text>NEGATIVE</text> </ observationRange> </referenceRange> </observation> </ component> <component> <observation moodCode="EVN" classCode="OBS"> <templateId root="06.08.840.1.337683.10..22.4.2" /> <id nullFlavor="NA" /> <code codeSystem="local" code="71097-9" displayName= "Urine oxycodone detection" /> <statusCode code="completed" /> <effectiveTime value="523508853493" /> <value unit="" xsi:type="PQ" value="NEGATIVE" /> <referenceRange> <observationRange> <text>NEGATIVE</text> </observationRange> </ referenceRange> </observation> </component> <component> <observation moodCode="EVN" classCode="OBS"> <templateId root= "06.08.840.1.539263.10...4.2" /> <id nullFlavor="NA" /> < code codeSystem="local" code="17826-1" displayName="Urine propoxyphene detection " /> <statusCode code="completed" /> <effectiveTime value= "029840037041" /> <value unit="" xsi:type="PQ" value="NEGATIVE" /> <referenceRange> <observationRange> <text>NEGATIVE </text> </observationRange> </referenceRange> </ observation> </component> </organizer> </entry> <entry> <organizer moodCode="EVN" classCode="BATTERY"> <templateId root= "06.08.840.1.991353.10.20.22.4.1" /> <id nullFlavor="NA" /> <code codeSystem="local" code="89233-7" displayName="Complete urinalysis with reflex to culture" /> <statusCode code="completed" /> <component> < observation moodCode="EVN" classCode="OBS"> <templateId root= "06.08.830.1.517570.10..22.4.2" /> <id nullFlavor="NA" /> < code codeSystem="local" code="5778-6" displayName="Urine color determination" / > <statusCode code="completed" /> <effectiveTime value= "" /> <value unit="" xsi:type="PQ" value="YELLOW" /> <referenceRange> <observationRange> <text>NRG</text > </observationRange> </referenceRange> </observation > </component> <component> <observation moodCode="EVN" classCode="OBS"> <templateId root="2.16.840.1.735721.10..4.2" /> <id nullFlavor="NA" /> <code codeSystem="local" code="85735-8 " displayName="Urine clarity determination" /> <statusCode code= "completed" /> <effectiveTime value="" /> <value unit="" xsi:type="PQ" value="CLEAR" /> <referenceRange> < observationRange> <text>NRG</text> </observationRange> </referenceRange> </observation> </component> < component> <observation moodCode="EVN" classCode="OBS"> < templateId root="216.840.1.166912.10..22.4.2" /> <id nullFlavor="NA " /> <code codeSystem="local" code="5803-2" displayName="Urine pH measurement by test strip" /> <statusCode code="completed" /> <effectiveTime value="" /> <value unit="" xsi:type="PQ" value="7" /> <referenceRange> <observationRange> <text>5-9</text> </observationRange> </referenceRange> </observation> </component> <component> <observation moodCode="EVN" classCode="OBS"> <templateId root= "216.840.1.795060.10..4.2" /> <id nullFlavor="NA" /> < code codeSystem="local" code="5811-5" displayName="Specific gravity of urine by test strip" /> <statusCode code="completed" /> <effectiveTime value="" /> <value unit="" xsi:type="PQ" value="1.010" /> <interpretationCode codeSystem="local" code="" /> < referenceRange> <observationRange> <text>1.016-1.022</ text> </observationRange> </referenceRange> </ observation> </component> <component> <observation moodCode= "EVN" classCode="OBS"> <templateId root="06.08.840.1.352314.02.09.22.4.2 " /> <id nullFlavor="NA" /> <code codeSystem="local" code= "83982-4" displayName="Urine protein assay by test strip, semi-quantitative" /> <statusCode code="completed" /> <effectiveTime value= "913352985337" /> <value unit="" xsi:type="PQ" value="NEGATIVE" /> <referenceRange> <observationRange> <text>NEGATIVE </text> </observationRange> </referenceRange> </ observation> </component> <component> <observation moodCode= "EVN" classCode="OBS"> <templateId root="16.840.1.613230.10.22.4.2 " /> <id nullFlavor="NA" /> <code codeSystem="local" code= "12667-5" displayName="Urine glucose detection by automated test strip" /> <statusCode code="completed" /> <effectiveTime value=" " /> <value unit="" xsi:type="PQ" value="NEGATIVE" /> < referenceRange> <observationRange> <text>NEGATIVE</text > </observationRange> </referenceRange> </observation > </component> <component> <observation moodCode="EVN" classCode="OBS"> <templateId root="216.840.1.164823.10.22.4.2" /> <id nullFlavor="NA" /> <code codeSystem="local" code="07898-9 " displayName="Erythrocytes detection in urine sediment by light microscopy" /> <statusCode code="completed" /> <effectiveTime value= "509676008082" /> <value unit="" xsi:type="PQ" value="5+" /> < interpretationCode codeSystem="local" code="*" /> <referenceRange> <observationRange> <text>NEGATIVE</text> </ observationRange> </referenceRange> </observation> </ component> <component> <observation moodCode="EVN" classCode="OBS"> <templateId root="06.08.840.1.580716.02.09.22.4.2" /> <id nullFlavor="NA" /> <code codeSystem="local" code="36061-2" displayName= "Urine ketones detection by automated test strip" /> <statusCode code= "completed" /> <effectiveTime value="125138621124" /> <value unit="" xsi:type="PQ" value="NEGATIVE" /> <referenceRange> < observationRange> <text>NEGATIVE</text> </ observationRange> </referenceRange> </observation> </ component> <component> <observation moodCode="EVN" classCode="OBS"> <templateId root="216.840.1.475982.10.2022.4.2" /> <id nullFlavor="NA" /> <code codeSystem="local" code="5802-4" displayName= "Urine nitrite detection by test strip" /> <statusCode code="completed " /> <effectiveTime value="069054540110" /> <value unit="" xsi :type="PQ" value="NEGATIVE" /> <referenceRange> < observationRange> <text>NEGATIVE</text> </ observationRange> </referenceRange> </observation> </ component> <component> <observation moodCode="EVN" classCode="OBS"> <templateId root="2.16.840.1.684214.10.20.22.4.2" /> <id nullFlavor="NA" /> <code codeSystem="local" code="5770-3" displayName= "Urine total bilirubin detection by test strip" /> <statusCode code= "completed" /> <effectiveTime value="629147455777" /> <value unit="" xsi:type="PQ" value="NEGATIVE" /> <referenceRange> < observationRange> <text>NEGATIVE</text> </ observationRange> </referenceRange> </observation> </ component> <component> <observation moodCode="EVN" classCode="OBS"> <templateId root="2.16.840.1.523441.10.20.22.4.2" /> <id nullFlavor="NA" /> <code codeSystem="local" code="97178-6" displayName= "Urine urobilinogen measurement by automated test strip (mass/volume)" /> <statusCode code="completed" /> <effectiveTime value="195820693971 " /> <value unit="" xsi:type="PQ" value="NORMAL" /> < referenceRange> <observationRange> <text>NORMAL</text> </observationRange> </referenceRange> </observation> </component> <component> <observation moodCode="EVN" classCode ="OBS"> <templateId root="16.840.1.510083.10.20.22.4.2" /> < id nullFlavor="NA" /> <code codeSystem="local" code="5799-2" displayName="Urine leukocyte esterase detection by dipstick" /> < statusCode code="completed" /> <effectiveTime value="714620528661" /> <value unit="" xsi:type="PQ" value="1+" /> < interpretationCode codeSystem="local" code="*" /> <referenceRange> <observationRange> <text>NEGATIVE</text> </ observationRange> </referenceRange> </observation> </ component> <component> <observation moodCode="EVN" classCode="OBS"> <templateId root="16.840.1.283518.10..4.2" /> <id nullFlavor="NA" /> <code codeSystem="local" code="52610-4" displayName= "Automated urine sediment erythrocyte count by microscopy (number/high power field)" /> <statusCode code="completed" /> <effectiveTime value="902249510157" /> <value unit="[HPF]" xsi:type="PQ" value="" /> <referenceRange> <observationRange> <text>NRG</ text> </observationRange> </referenceRange> </ observation> </component> <component> <observation moodCode= "EVN" classCode="OBS"> <templateId root="16.840.1.575693.10.20.22.4.2 " /> <id nullFlavor="NA" /> <code codeSystem="local" code= "5821-4" displayName="Automated urine sediment leukocyte count by microscopy ( number/high power field)" /> <statusCode code="completed" /> < effectiveTime value="347860060245" /> <value unit="[HPF]" xsi:type="PQ " value="" /> <referenceRange> <observationRange> <text>NRG</text> </observationRange> </referenceRange> </observation> </component> <component> <observation moodCode="EVN" classCode="OBS"> <templateId root= "16.840.1.438694.10.20.22.4.2" /> <id nullFlavor="NA" /> < code codeSystem="local" code="72656-4" displayName="Bacteria detection in urine sediment by light microscopy" /> <statusCode code="completed" /> <effectiveTime value="271873616049" /> <value unit="" xsi:type="PQ " value="NEGATIVE" /> <referenceRange> <observationRange> <text>NRG</text> </observationRange> </ referenceRange> </observation> </component> <component> <observation moodCode="EVN" classCode="OBS"> <templateId root= "840.1.547083.10.20.22.4.2" /> <id nullFlavor="NA" /> < code codeSystem="local" code="60274-8" displayName="Squamous epithelial cells detection in urine sediment by light microscopy" /> <statusCode code= "completed" /> <effectiveTime value="374067854599" /> <value unit="" xsi:type="PQ" value="5-10" /> <referenceRange> < observationRange> <text>NRG</text> </observationRange> </referenceRange> </observation> </component> < component> <observation moodCode="EVN" classCode="OBS"> < templateId root="06.08.840.1.090329.10.20.22.4.2" /> <id nullFlavor="NA " /> <code codeSystem="local" code="35708-1" displayName="Crystals detection in urine sediment by light microscopy" /> <statusCode code= "completed" /> <effectiveTime value="386676640180" /> <value unit="" xsi:type="PQ" value="NONE" /> <referenceRange> < observationRange> <text>NRG</text> </observationRange> </referenceRange> </observation> </component> < component> <observation moodCode="EVN" classCode="OBS"> < templateId root="216.840.1.936568.10..22.4.2" /> <id nullFlavor="NA " /> <code codeSystem="local" code="45396-4" displayName="Casts detection in urine sediment by light microscopy" /> <statusCode code= "completed" /> <effectiveTime value="692222324517" /> <value unit="" xsi:type="PQ" value="NONE" /> <referenceRange> < observationRange> <text>NRG</text> </observationRange> </referenceRange> </observation> </component> < component> <observation moodCode="EVN" classCode="OBS"> < templateId root="16.840.1.819807.10..22.4.2" /> <id nullFlavor="NA " /> <code codeSystem="local" code="8247-9" displayName="Mucus detection in urine sediment by light microscopy" /> <statusCode code= "completed" /> <effectiveTime value="722619830951" /> <value unit="" xsi:type="PQ" value="NEGATIVE" /> <referenceRange> < observationRange> <text>NRG</text> </observationRange> </referenceRange> </observation> </component> < component> <observation moodCode="EVN" classCode="OBS"> < templateId root="216.840.1.997224...22.4.2" /> <id nullFlavor="NA " /> <code codeSystem="local" code="43556-9" displayName="Complete urinalysis with reflex to culture" /> <statusCode code="completed" /> <effectiveTime value="807508584640" /> <value unit="" xsi:type ="PQ" value="NO" /> <referenceRange> <observationRange> <text>NRG</text> </observationRange> </ referenceRange> </observation> </component> </organizer> </entry > <entry> <organizer moodCode="EVN" classCode="BATTERY"> <templateId root="216.840.1.581197.10..22.4.1" /> <id nullFlavor="NA" /> <code codeSystem="local" code="75979-1" displayName="Urine drug screening test" /> <statusCode code="completed" /> <component> <observation moodCode ="EVN" classCode="OBS"> <templateId root= "216.840.1.376581.10..22.4.2" /> <id nullFlavor="NA" /> < code codeSystem="local" code="77801-2" displayName="Urine phencyclidine detection by screening method" /> <statusCode code="completed" /> <effectiveTime value="346436703573" /> <value unit="" xsi:type="PQ " value="NEGATIVE" /> <referenceRange> <observationRange> <text>NEGATIVE</text> </observationRange> </ referenceRange> </observation> </component> <component> <observation moodCode="EVN" classCode="OBS"> <templateId root= "16.840.1.578665.10..22.4.2" /> <id nullFlavor="NA" /> < code codeSystem="local" code="87580-0" displayName="Urine benzodiazepines detection by screening method" /> <statusCode code="completed" /> <effectiveTime value="014396449478" /> <value unit="" xsi:type="PQ " value="NEGATIVE" /> <referenceRange> <observationRange> <text>NEGATIVE</text> </observationRange> </ referenceRange> </observation> </component> <component> <observation moodCode="EVN" classCode="OBS"> <templateId root= "216.840.1.285098.10..22.4.2" /> <id nullFlavor="NA" /> < code codeSystem="local" code="3397-7" displayName="Urine cocaine detection" /> <statusCode code="completed" /> <effectiveTime value= "535210612648" /> <value unit="" xsi:type="PQ" value="NEGATIVE" /> <referenceRange> <observationRange> <text>NEGATIVE </text> </observationRange> </referenceRange> </ observation> </component> <component> <observation moodCode= "EVN" classCode="OBS"> <templateId root="216.840.1.608750.10..22.4.2 " /> <id nullFlavor="NA" /> <code codeSystem="local" code= "21109-9" displayName="Urine amphetamines detection by screening method" /> <statusCode code="completed" /> <effectiveTime value= "643104904073" /> <value unit="" xsi:type="PQ" value="NEGATIVE" /> <referenceRange> <observationRange> <text>NEGATIVE </text> </observationRange> </referenceRange> </ observation> </component> <component> <observation moodCode= "EVN" classCode="OBS"> <templateId root="216.840.1.674488..20.22.4.2 " /> <id nullFlavor="NA" /> <code codeSystem="local" code= "60358-0" displayName="Urine methamphetamine detection by screening method" /> <statusCode code="completed" /> <effectiveTime value= "353151695086" /> <value unit="" xsi:type="PQ" value="NEGATIVE" /> <referenceRange> <observationRange> <text>NEGATIVE </text> </observationRange> </referenceRange> </ observation> </component> <component> <observation moodCode= "EVN" classCode="OBS"> <templateId root="2.16.840.1.998789.10..22.4.2 " /> <id nullFlavor="NA" /> <code codeSystem="local" code= "55552-6" displayName="Urine cannabinoids detection by screening method" /> <statusCode code="completed" /> <effectiveTime value= "545763549859" /> <value unit="" xsi:type="PQ" value="NEGATIVE" /> <referenceRange> <observationRange> <text>NEGATIVE </text> </observationRange> </referenceRange> </ observation> </component> <component> <observation moodCode= "EVN" classCode="OBS"> <templateId root="2.16.840.1.600543.10..22.4.2 " /> <id nullFlavor="NA" /> <code codeSystem="local" code= "46704-8" displayName="Urine opiates detection by screening method" /> <statusCode code="completed" /> <effectiveTime value="228078206015" /> <value unit="" xsi:type="PQ" value="POSITIVE" /> < interpretationCode codeSystem="local" code="*" /> <referenceRange> <observationRange> <text>NEGATIVE</text> </ observationRange> </referenceRange> </observation> </ component> <component> <observation moodCode="EVN" classCode="OBS"> <templateId root="216.840.1.882040.10...4.2" /> <id nullFlavor="NA" /> <code codeSystem="local" code="3377-9" displayName= "Urine barbiturates detection" /> <statusCode code="completed" /> <effectiveTime value="" /> <value unit="" xsi:type="PQ " value="NEGATIVE" /> <referenceRange> <observationRange> <text>NEGATIVE</text> </observationRange> </ referenceRange> </observation> </component> <component> <observation moodCode="EVN" classCode="OBS"> <templateId root= "216.840.1.781670.10..4.2" /> <id nullFlavor="NA" /> < code codeSystem="local" code="19285-0" displayName="Screening urine tricyclic antidepressants detection" /> <statusCode code="completed" /> <effectiveTime value="" /> <value unit="" xsi:type="PQ" value="NEGATIVE" /> <referenceRange> <observationRange> <text>NEGATIVE</text> </observationRange> </ referenceRange> </observation> </component> <component> <observation moodCode="EVN" classCode="OBS"> <templateId root= "216.840.1.543633.10..22.4.2" /> <id nullFlavor="NA" /> < code codeSystem="local" code="53521-2" displayName="Urine methadone detection by screening method" /> <statusCode code="completed" /> < effectiveTime value="234050092926" /> <value unit="" xsi:type="PQ" value="NEGATIVE" /> <referenceRange> <observationRange> <text>NEGATIVE</text> </observationRange> </ referenceRange> </observation> </component> <component> <observation moodCode="EVN" classCode="OBS"> <templateId root= "216.840.1.658291.10..22.4.2" /> <id nullFlavor="NA" /> < code codeSystem="local" code="86534-6" displayName="Urine oxycodone detection" / > <statusCode code="completed" /> <effectiveTime value= "194678259618" /> <value unit="" xsi:type="PQ" value="NEGATIVE" /> <referenceRange> <observationRange> <text>NEGATIVE </text> </observationRange> </referenceRange> </ observation> </component> <component> <observation moodCode= "EVN" classCode="OBS"> <templateId root="06.08.840.1.594239.10...4.2 " /> <id nullFlavor="NA" /> <code codeSystem="local" code= "11598-4" displayName="Urine propoxyphene detection" /> <statusCode code="completed" /> <effectiveTime value="351405403550" /> < value unit="" xsi:type="PQ" value="NEGATIVE" /> <referenceRange> <observationRange> <text>NEGATIVE</text> </ observationRange> </referenceRange> </observation> </ component> </organizer> </entry> <entry> <organizer moodCode="EVN" classCode="BATTERY"> <templateId root="06.08.840.1.183298.10..22.4.1" /> <id nullFlavor="NA" /> <code codeSystem="local" code="19571-4" displayName="Complete blood count (CBC) with automated white blood cell (WBC) differential" /> <statusCode code="completed" /> <component> < observation moodCode="EVN" classCode="OBS"> <templateId root= "216.840.1.833149.10.20.22.4.2" /> <id nullFlavor="NA" /> < code codeSystem="local" code="6690-2" displayName="Blood leukocytes automated count (number/volume)" /> <statusCode code="completed" /> < effectiveTime value="147187800204" /> <value unit="10*3/uL" xsi:type= "PQ" value="7.0" /> <referenceRange> <observationRange> <text>4.3-11.0</text> </observationRange> </ referenceRange> </observation> </component> <component> <observation moodCode="EVN" classCode="OBS"> <templateId root= "06.08.840.1.204877.10.22.4.2" /> <id nullFlavor="NA" /> < code codeSystem="local" code="789-8" displayName="Blood erythrocytes automated count (number/volume)" /> <statusCode code="completed" /> < effectiveTime value="187094127118" /> <value unit="10*6/uL" xsi:type= "PQ" value="3.83" /> <interpretationCode codeSystem="local" code="" / > <referenceRange> <observationRange> <text> 4.35-5.85</text> </observationRange> </referenceRange> </observation> </component> <component> <observation moodCode="EVN" classCode="OBS"> <templateId root= "16.840.1.657113.10.20.22.4.2" /> <id nullFlavor="NA" /> < code codeSystem="local" code="63545-5" displayName="Venous blood hemoglobin measurement (mass/volume)" /> <statusCode code="completed" /> <effectiveTime value="111928116445" /> <value unit="g/dL" xsi:type="PQ " value="13.0" /> <referenceRange> <observationRange> <text>11.5-16.0</text> </observationRange> </ referenceRange> </observation> </component> <component> <observation moodCode="EVN" classCode="OBS"> <templateId root= "2.16.840.1.686093.10.20.22.4.2" /> <id nullFlavor="NA" /> < code codeSystem="local" code="40163-3" displayName="Blood hematocrit (volume fraction)" /> <statusCode code="completed" /> <effectiveTime value="370528000978" /> <value unit="%" xsi:type="PQ" value="39" / > <referenceRange> <observationRange> <text>35- 52</text> </observationRange> </referenceRange> </ observation> </component> <component> <observation moodCode= "EVN" classCode="OBS"> <templateId root="2.16.840.1.141553.10.20.22.4.2 " /> <id nullFlavor="NA" /> <code codeSystem="local" code="787 -2" displayName="Automated erythrocyte mean corpuscular volume" /> < statusCode code="completed" /> <effectiveTime value="324675066206" /> <value unit="[foz_us]" xsi:type="PQ" value="101" /> < interpretationCode codeSystem="local" code="" /> <referenceRange> <observationRange> <text>80-99</text> </ observationRange> </referenceRange> </observation> </ component> <component> <observation moodCode="EVN" classCode="OBS"> <templateId root="2.16.840.1.075282.10.20.22.4.2" /> <id nullFlavor="NA" /> <code codeSystem="local" code="785-6" displayName= "Automated erythrocyte mean corpuscular hemoglobin (mass per erythrocyte)" /> <statusCode code="completed" /> <effectiveTime value= "356646743240" /> <value unit="pg" xsi:type="PQ" value="34" /> <referenceRange> <observationRange> <text>25-34</text > </observationRange> </referenceRange> </observation > </component> <component> <observation moodCode="EVN" classCode="OBS"> <templateId root="2.16.840.1.510236.10...4.2" /> <id nullFlavor="NA" /> <code codeSystem="local" code="786-4" displayName="Automated erythrocyte mean corpuscular hemoglobin concentration measurement (mass/volume)" /> <statusCode code="completed" /> <effectiveTime value="748586446854" /> <value unit="g/dL" xsi:type="PQ " value="34" /> <referenceRange> <observationRange> <text>32-36</text> </observationRange> </ referenceRange> </observation> </component> <component> <observation moodCode="EVN" classCode="OBS"> <templateId root= "2.16.840.1.449395.10..22.4.2" /> <id nullFlavor="NA" /> < code codeSystem="local" code="788-0" displayName="Automated erythrocyte distribution width ratio" /> <statusCode code="completed" /> < effectiveTime value="441602912129" /> <value unit="%" xsi:type="PQ " value="13.2" /> <referenceRange> <observationRange> <text>10.0-14.5</text> </observationRange> </ referenceRange> </observation> </component> <component> <observation moodCode="EVN" classCode="OBS"> <templateId root= "216.840.1.434574.10..4.2" /> <id nullFlavor="NA" /> < code codeSystem="local" code="777-3" displayName="Automated blood platelet count (count/volume)" /> <statusCode code="completed" /> < effectiveTime value="928709147333" /> <value unit="10*3/uL" xsi:type= "PQ" value="414" /> <interpretationCode codeSystem="local" code="" / > <referenceRange> <observationRange> <text>130 -400</text> </observationRange> </referenceRange> </ observation> </component> <component> <observation moodCode= "EVN" classCode="OBS"> <templateId root="216.840.1.905242.02.09.22.4.2 " /> <id nullFlavor="NA" /> <code codeSystem="local" code= "05652-7" displayName="Automated blood platelet mean volume measurement" /> <statusCode code="completed" /> <effectiveTime value= "025344616934" /> <value unit="[foz_us]" xsi:type="PQ" value="8.0" /> <referenceRange> <observationRange> <text>7.4- 10.4</text> </observationRange> </referenceRange> </ observation> </component> <component> <observation moodCode= "EVN" classCode="OBS"> <templateId root="216.840.1.247566.10..22.4.2 " /> <id nullFlavor="NA" /> <code codeSystem="local" code="770 -8" displayName="Automated blood neutrophils/100 leukocytes" /> < statusCode code="completed" /> <effectiveTime value="183204068289" /> <value unit="%" xsi:type="PQ" value="66" /> < referenceRange> <observationRange> <text>42-75</text> </observationRange> </referenceRange> </observation> </component> <component> <observation moodCode="EVN" classCode= "OBS"> <templateId root="2.16.840.1.238650.10..4.2" /> < id nullFlavor="NA" /> <code codeSystem="local" code="736-9" displayName ="Automated blood lymphocytes/100 leukocytes" /> <statusCode code= "completed" /> <effectiveTime value="114038801172" /> <value unit="%" xsi:type="PQ" value="24" /> <referenceRange> < observationRange> <text>12-44</text> </observationRange > </referenceRange> </observation> </component> < component> <observation moodCode="EVN" classCode="OBS"> < templateId root="2.16.840.1.844403.10..22.4.2" /> <id nullFlavor="NA " /> <code codeSystem="local" code="31951-2" displayName="Blood monocytes/100 leukocytes" /> <statusCode code="completed" /> < effectiveTime value="514527068877" /> <value unit="%" xsi:type="PQ " value="8" /> <referenceRange> <observationRange> <text>0-12</text> </observationRange> </referenceRange > </observation> </component> <component> <observation moodCode="EVN" classCode="OBS"> <templateId root= "2.16.840.1.297153.10..22.4.2" /> <id nullFlavor="NA" /> < code codeSystem="local" code="713-8" displayName="Automated blood eosinophils/ 100 leukocytes" /> <statusCode code="completed" /> < effectiveTime value="762272896323" /> <value unit="%" xsi:type="PQ " value="1" /> <referenceRange> <observationRange> <text>0-10</text> </observationRange> </referenceRange > </observation> </component> <component> <observation moodCode="EVN" classCode="OBS"> <templateId root= "2.16.840.1.993208.10...4.2" /> <id nullFlavor="NA" /> < code codeSystem="local" code="706-2" displayName="Automated blood basophils/100 leukocytes" /> <statusCode code="completed" /> <effectiveTime value="615064649250" /> <value unit="%" xsi:type="PQ" value="0" /> <referenceRange> <observationRange> <text>0-10 </text> </observationRange> </referenceRange> </ observation> </component> <component> <observation moodCode= "EVN" classCode="OBS"> <templateId root="2.16.840.1.827710.10..22.4.2 " /> <id nullFlavor="NA" /> <code codeSystem="local" code="751 -8" displayName="Blood neutrophils automated count (number/volume)" /> <statusCode code="completed" /> <effectiveTime value="567804528810" /> <value unit="10*3" xsi:type="PQ" value="4.7" /> < referenceRange> <observationRange> <text>1.8-7.8</text> </observationRange> </referenceRange> </observation > </component> <component> <observation moodCode="EVN" classCode="OBS"> <templateId root="2.16.840.1.034428.10..22.4.2" /> <id nullFlavor="NA" /> <code codeSystem="local" code="731-0" displayName="Blood lymphocytes automated count (number/volume)" /> < statusCode code="completed" /> <effectiveTime value="878872961961" /> <value unit="10*3" xsi:type="PQ" value="1.7" /> < referenceRange> <observationRange> <text>1.0-4.0</text> </observationRange> </referenceRange> </observation > </component> <component> <observation moodCode="EVN" classCode="OBS"> <templateId root="2.16.840.1.475376...4.2" /> <id nullFlavor="NA" /> <code codeSystem="local" code="742-7" displayName="Blood monocytes automated count (number/volume)" /> < statusCode code="completed" /> <effectiveTime value="746466475579" /> <value unit="10*3" xsi:type="PQ" value="0.6" /> < referenceRange> <observationRange> <text>0.0-1.0</text> </observationRange> </referenceRange> </observation > </component> <component> <observation moodCode="EVN" classCode="OBS"> <templateId root="2.16.840.1.153653.10..22.4.2" /> <id nullFlavor="NA" /> <code codeSystem="local" code="711-2" displayName="Automated eosinophil count" /> <statusCode code="completed " /> <effectiveTime value="532126379609" /> <value unit="10*3/ uL" xsi:type="PQ" value="0.1" /> <referenceRange> < observationRange> <text>0.0-0.3</text> </ observationRange> </referenceRange> </observation> </ component> <component> <observation moodCode="EVN" classCode="OBS"> <templateId root="06.08.840.1.957589.02.09.22.4.2" /> <id nullFlavor="NA" /> <code codeSystem="local" code="704-7" displayName= "Automated blood basophil count (count/volume)" /> <statusCode code= "completed" /> <effectiveTime value="274162064078" /> <value unit="10*3/uL" xsi:type="PQ" value="0.0" /> <referenceRange> <observationRange> <text>0.0-0.1</text> </ observationRange> </referenceRange> </observation> </ component> </organizer> </entry> <entry> <organizer moodCode="EVN" classCode="BATTERY"> <templateId root="06.08.840.1.172890.22.4.1" /> <id nullFlavor="NA" /> <code codeSystem="local" code="23173-4" displayName="Comprehensive metabolic panel" /> <statusCode code="completed " /> <component> <observation moodCode="EVN" classCode="OBS"> <templateId root="06.08.840.1.820073..22.4.2" /> <id nullFlavor ="NA" /> <code codeSystem="local" code="2951-2" displayName="Serum or plasma sodium measurement (moles/volume)" /> <statusCode code= "completed" /> <effectiveTime value="491186301004" /> <value unit="mmol/L" xsi:type="PQ" value="138" /> <referenceRange> <observationRange> <text>135-145</text> </ observationRange> </referenceRange> </observation> </ component> <component> <observation moodCode="EVN" classCode="OBS"> <templateId root="2.16.840.1.618113.10.20.22.4.2" /> <id nullFlavor="NA" /> <code codeSystem="local" code="2823-3" displayName= "Serum or plasma potassium measurement (moles/volume)" /> <statusCode code="completed" /> <effectiveTime value="985952413167" /> < value unit="mmol/L" xsi:type="PQ" value="4.0" /> <referenceRange> <observationRange> <text>3.6-5.0</text> </ observationRange> </referenceRange> </observation> </ component> <component> <observation moodCode="EVN" classCode="OBS"> <templateId root="2.16.840.1.067631.10.20.22.4.2" /> <id nullFlavor="NA" /> <code codeSystem="local" code="2075-0" displayName= "Serum or plasma chloride measurement (moles/volume)" /> <statusCode code="completed" /> <effectiveTime value="369659811872" /> < value unit="mmol/L" xsi:type="PQ" value="106" /> <referenceRange> <observationRange> <text>98-107</text> </ observationRange> </referenceRange> </observation> </ component> <component> <observation moodCode="EVN" classCode="OBS"> <templateId root="2.16.840.1.047633.10..22.4.2" /> <id nullFlavor="NA" /> <code codeSystem="local" code="2027-12" displayName= "Carbon dioxide" /> <statusCode code="completed" /> < effectiveTime value="075671149313" /> <value unit="mmol/L" xsi:type="PQ " value="25" /> <referenceRange> <observationRange> <text>21-32</text> </observationRange> </ referenceRange> </observation> </component> <component> <observation moodCode="EVN" classCode="OBS"> <templateId root= "2.16.840.1.660125.10...4.2" /> <id nullFlavor="NA" /> < code codeSystem="local" code="86626-3" displayName="Serum or plasma anion gap determination (moles/volume)" /> <statusCode code="completed" /> <effectiveTime value="509188178886" /> <value unit="mmol/L" xsi: type="PQ" value="7" /> <referenceRange> <observationRange> <text>5-14</text> </observationRange> </ referenceRange> </observation> </component> <component> <observation moodCode="EVN" classCode="OBS"> <templateId root= "2.16.840.1.881049.10.20.22.4.2" /> <id nullFlavor="NA" /> < code codeSystem="local" code="3094-0" displayName="Serum or plasma urea nitrogen measurement (mass/volume)" /> <statusCode code="completed" /> <effectiveTime value="603184675373" /> <value unit="mg/dL" xsi:type="PQ" value="9" /> <referenceRange> < observationRange> <text>7-18</text> </observationRange> </referenceRange> </observation> </component> < component> <observation moodCode="EVN" classCode="OBS"> < templateId root="2.16.840.1.108051.10.20.22.4.2" /> <id nullFlavor="NA " /> <code codeSystem="local" code="2160-0" displayName="Serum or plasma creatinine measurement (mass/volume)" /> <statusCode code= "completed" /> <effectiveTime value="134293795858" /> <value unit="mg/dL" xsi:type="PQ" value="0.67" /> <referenceRange> <observationRange> <text>0.60-1.30</text> </ observationRange> </referenceRange> </observation> </ component> <component> <observation moodCode="EVN" classCode="OBS"> <templateId root="216.840.1.909505.10..22.4.2" /> <id nullFlavor="NA" /> <code codeSystem="local" code="3097-3" displayName= "Serum or plasma urea nitrogen/creatinine mass ratio" /> <statusCode code="completed" /> <effectiveTime value="301683044306" /> < value unit="" xsi:type="PQ" value="13" /> <referenceRange> < observationRange> <text>NRG</text> </observationRange> </referenceRange> </observation> </component> < component> <observation moodCode="EVN" classCode="OBS"> < templateId root="216.840.1.548375.10.20.22.4.2" /> <id nullFlavor="NA " /> <code codeSystem="local" code="13630-8" displayName="Serum or plasma creatinine measurement with calculation of estimated glomerular filtration rate" /> <statusCode code="completed" /> < effectiveTime value="125726336293" /> <value unit="" xsi:type="PQ" value=">" /> <referenceRange> <observationRange> <text>NRG</text> </observationRange> </referenceRange > </observation> </component> <component> <observation moodCode="EVN" classCode="OBS"> <templateId root= "2.16.840.1.234016.10.20.22.4.2" /> <id nullFlavor="NA" /> < code codeSystem="local" code="2345-7" displayName="Serum or plasma glucose measurement (mass/volume)" /> <statusCode code="completed" /> <effectiveTime value="702841709981" /> <value unit="mg/dL" xsi:type="PQ " value="92" /> <referenceRange> <observationRange> <text>70-105</text> </observationRange> </ referenceRange> </observation> </component> <component> <observation moodCode="EVN" classCode="OBS"> <templateId root= "2.16.840.1.290254.10.20.22.4.2" /> <id nullFlavor="NA" /> < code codeSystem="local" code="38717-4" displayName="Serum or plasma calcium measurement (mass/volume)" /> <statusCode code="completed" /> <effectiveTime value="050722718990" /> <value unit="mg/dL" xsi:type="PQ " value="9.4" /> <referenceRange> <observationRange> <text>8.5-10.1</text> </observationRange> </ referenceRange> </observation> </component> <component> <observation moodCode="EVN" classCode="OBS"> <templateId root= "2.16.840.1.547040.10.20.22.4.2" /> <id nullFlavor="NA" /> < code codeSystem="local" code="1974-05" displayName="Serum or plasma total bilirubin measurement (mass/volume)" /> <statusCode code="completed" / > <effectiveTime value="139626314872" /> <value unit="mg/dL" xsi:type="PQ" value="0.4" /> <referenceRange> < observationRange> <text>0.1-1.0</text> </ observationRange> </referenceRange> </observation> </ component> <component> <observation moodCode="EVN" classCode="OBS"> <templateId root="2.16.840.1.201366.10...4.2" /> <id nullFlavor="NA" /> <code codeSystem="local" code="67686" displayName= "Serum or plasma alkaline phosphatase measurement (enzymatic activity/volume)" / > <statusCode code="completed" /> <effectiveTime value= "954004462060" /> <value unit="U/L" xsi:type="PQ" value="57" /> <referenceRange> <observationRange> <text>40-136</ text> </observationRange> </referenceRange> </ observation> </component> <component> <observation moodCode= "EVN" classCode="OBS"> <templateId root="2.16.840.1.916718.10..22.4.2 " /> <id nullFlavor="NA" /> <code codeSystem="local" code= "192" displayName="Serum or plasma aspartate aminotransferase measurement ( enzymatic activity/volume)" /> <statusCode code="completed" /> <effectiveTime value="142664147142" /> <value unit="U/L" xsi:type="PQ " value="16" /> <referenceRange> <observationRange> <text>5-34</text> </observationRange> </referenceRange > </observation> </component> <component> <observation moodCode="EVN" classCode="OBS"> <templateId root= "2.16.840.1.403156.10.20.22.4.2" /> <id nullFlavor="NA" /> < code codeSystem="local" code="1742-6" displayName="Serum or plasma alanine aminotransferase measurement (enzymatic activity/volume)" /> < statusCode code="completed" /> <effectiveTime value="302429306385" /> <value unit="U/L" xsi:type="PQ" value="13" /> <referenceRange > <observationRange> <text>0-55</text> </ observationRange> </referenceRange> </observation> </ component> <component> <observation moodCode="EVN" classCode="OBS"> <templateId root="2.16.840.1.582557.10..22.4.2" /> <id nullFlavor="NA" /> <code codeSystem="local" code="2885-2" displayName= "Serum or plasma protein measurement (mass/volume)" /> <statusCode code ="completed" /> <effectiveTime value="537768887236" /> <value unit="g/dL" xsi:type="PQ" value="7.8" /> <referenceRange> < observationRange> <text>6.4-8.2</text> </ observationRange> </referenceRange> </observation> </ component> <component> <observation moodCode="EVN" classCode="OBS"> <templateId root="2.16.840.1.043838.10.20.22.4.2" /> <id nullFlavor="NA" /> <code codeSystem="local" code="1751-7" displayName= "Serum or plasma albumin measurement (mass/volume)" /> <statusCode code ="completed" /> <effectiveTime value="177045808910" /> <value unit="g/dL" xsi:type="PQ" value="4.6" /> <interpretationCode codeSystem ="local" code="" /> <referenceRange> <observationRange> <text>3.2-4.5</text> </observationRange> </ referenceRange> </observation> </component> </organizer> </entry > <entry> <organizer moodCode="EVN" classCode="BATTERY"> <templateId root="2.16.840.1.771289.10..22.4.1" /> <id nullFlavor="NA" /> <code codeSystem="local" code="3040-3" displayName="Lipase" /> <statusCode code= "completed" /> <component> <observation moodCode="EVN" classCode= "OBS"> <templateId root="2.16.840.1.364492.10..22.4.2" /> < id nullFlavor="NA" /> <code codeSystem="local" code="3040-3" displayName="Lipase" /> <statusCode code="completed" /> < effectiveTime value="858882127477" /> <value unit="U/L" xsi:type="PQ" value="13" /> <referenceRange> <observationRange> <text>8-78</text> </observationRange> </referenceRange> </observation> </component> </organizer> </entry> <entry> < organizer moodCode="EVN" classCode="BATTERY"> <templateId root= "2.16.840.1.262673.10...4.1" /> <id nullFlavor="NA" /> <code codeSystem="local" code="1987-08" displayName="Serum or plasma C reactive protein measurement (mass/volume)" /> <statusCode code="completed" /> <component> <observation moodCode="EVN" classCode="OBS"> < templateId root="2.16.840.1.659735.10..4.2" /> <id nullFlavor="NA " /> <code codeSystem="local" code="1987-08" displayName="Serum or plasma C reactive protein measurement (mass/volume)" /> <statusCode code="completed" /> <effectiveTime value="645727905327" /> < value unit="mg/dL" xsi:type="PQ" value="0.04" /> <referenceRange> <observationRange> <text>0.00-0.50</text> </ observationRange> </referenceRange> </observation> </ component> </organizer> </entry> <entry> <organizer moodCode="EVN" classCode="BATTERY"> <templateId root="216.840.1.420955.10..4.1" /> <id nullFlavor="NA" /> <code codeSystem="local" code="5643-2" displayName="Serum or plasma ethanol measurement (mass/volume)" /> < statusCode code="completed" /> <component> <observation moodCode= "EVN" classCode="OBS"> <templateId root="2.16.840.1.316754.10.22.4.2 " /> <id nullFlavor="NA" /> <code codeSystem="local" code= "5643-2" displayName="Serum or plasma ethanol measurement (mass/volume)" /> <statusCode code="completed" /> <effectiveTime value= "745039732630" /> <value unit="mg/dL" xsi:type="PQ" value="<" /> <referenceRange> <observationRange> <text><10< /text> </observationRange> </referenceRange> </ observation> </component> </organizer> </entry> <entry> <organizer moodCode="EVN" classCode="BATTERY"> <templateId root= "16.840.1.944662.10..22.4.1" /> <id nullFlavor="NA" /> <code codeSystem="local" code="419565" displayName="Ct, Ng, Trich vag by AV" /> <statusCode code="completed" /> <component> <observation moodCode= "EVN" classCode="OBS"> <templateId root="216.840.1.349258.10...4.2 " /> <id nullFlavor="NA" /> <code codeSystem="local" code= "702437" displayName="Trich vag by AV" /> <statusCode code="completed " /> <effectiveTime value="659674669113" /> <value unit="" xsi :type="PQ" value="TNP" /> <referenceRange> <observationRange > <text /> </observationRange> </referenceRange > </observation> </component> <component> <observation moodCode="EVN" classCode="OBS"> <templateId root= "06.08.840.1.775194.10.22.4.2" /> <id nullFlavor="NA" /> < code codeSystem="local" code="228424" displayName="Chlamydia by AV" /> <statusCode code="completed" /> <effectiveTime value="536065443929" / > <value unit="" xsi:type="PQ" value="TNP" /> <referenceRange > <observationRange> <text /> </ observationRange> </referenceRange> </observation> </ component> <component> <observation moodCode="EVN" classCode="OBS"> <templateId root="2.16.840.1.175934.10..22.4.2" /> <id nullFlavor="NA" /> <code codeSystem="local" code="159939" displayName= "Gonococcus by AV" /> <statusCode code="completed" /> < effectiveTime value="913864004686" /> <value unit="" xsi:type="PQ" value="TNP" /> <referenceRange> <observationRange> <text /> </observationRange> </referenceRange> < /observation> </component> </organizer> </entry> <entry> < organizer moodCode="EVN" classCode="BATTERY"> <templateId root= "2.16.840.1.936518.10..22.4.1" /> <id nullFlavor="NA" /> <code codeSystem="local" code="ORD40" displayName="Thyroid Stimulating Hormone" /> <statusCode code="completed" /> <component> <observation moodCode ="EVN" classCode="OBS"> <templateId root= "2.16.840.1.521832.10..22.4.2" /> <id nullFlavor="NA" /> < code codeSystem="local" code="Res34" displayName="TSH" /> <statusCode code="completed" /> <effectiveTime value="713116277710" /> < value unit="mIU/mL" xsi:type="PQ" value="1.36" /> <referenceRange> <observationRange> <text>0.32-5.00</text> </ observationRange> </referenceRange> </observation> </ component> </organizer> </entry> <entry> <organizer moodCode="EVN" classCode="BATTERY"> <templateId root="216.840.1.865530.10..4.1" /> <id nullFlavor="NA" /> <code codeSystem="local" code="YAZ0295" displayName="Urine Culture" /> <statusCode code="completed" /> < component> <observation moodCode="EVN" classCode="OBS"> < templateId root="2.840.1.822805.02.09.22.4.2" /> <id nullFlavor="NA " /> <code codeSystem="local" code="Mik5595" displayName="MEDIA PLATED " /> <statusCode code="completed" /> <effectiveTime value= "108102766772" /> <value unit="" xsi:type="PQ" value="Setup at 15:06 on 12/14/2017" /> <referenceRange> <observationRange> <text /> </observationRange> </referenceRange> </observation> </component> <component> <observation moodCode ="EVN" classCode="OBS"> <templateId root= "2.840.1.383330.02.09.22.4.2" /> <id nullFlavor="NA" /> < code codeSystem="local" code="Ebn4427" displayName="CULTURE SOURCE" /> <statusCode code="completed" /> <effectiveTime value="691228366873" /> <value unit="" xsi:type="PQ" value="clean [id number]\\" /> < referenceRange> <observationRange> <text /> < /observationRange> </referenceRange> </observation> </ component> </organizer> </entry> <entry> <organizer moodCode="EVN" classCode="BATTERY"> <templateId root="216.840.1.717641.02.09.22.4.1" /> <id nullFlavor="NA" /> <code codeSystem="local" code="Skx82278" displayName="Sensi" /> <statusCode code="completed" /> <component> <observation moodCode="EVN" classCode="OBS"> <templateId root= "216.840.1.035342.10..22.4.2" /> <id nullFlavor="NA" /> < code codeSystem="local" code="[id number]" displayName="FINAL CULTURE RESULTS" /> <statusCode code="completed" /> <effectiveTime value= "451154947900" /> <value unit="" xsi:type="PQ" value="Escherichia coli (Isolate 1)" /> <referenceRange> <observationRange> <text /> </observationRange> </referenceRange> </observation> </component> <component> <observation moodCode= "EVN" classCode="OBS"> <templateId root="06.08.840.1.526923.10...4.2 " /> <id nullFlavor="NA" /> <code codeSystem="local" code= "Yki2826" displayName="Ampicillin/Sulbactam" /> <statusCode code= "completed" /> <effectiveTime value="600423534222" /> <value unit="" xsi:type="PQ" value="<=8/4" /> <interpretationCode codeSystem="local" code="S" /> <referenceRange> < observationRange> <text /> </observationRange> </referenceRange> </observation> </component> <component> <observation moodCode="EVN" classCode="OBS"> <templateId root= "06.08.840.1.921141.10..22.4.2" /> <id nullFlavor="NA" /> < code codeSystem="local" code="Bzh1785" displayName="Ampicillin" /> < statusCode code="completed" /> <effectiveTime value="258595200630" /> <value unit="" xsi:type="PQ" value="<=8" /> < interpretationCode codeSystem="local" code="S" /> <referenceRange> <observationRange> <text /> </observationRange> </referenceRange> </observation> </component> < component> <observation moodCode="EVN" classCode="OBS"> < templateId root="2.16.840.1.776416.10..22.4.2" /> <id nullFlavor="NA " /> <code codeSystem="local" code="Mao0857" displayName="Amoxicillin/ K Clavulanate" /> <statusCode code="completed" /> < effectiveTime value="765585066464" /> <value unit="" xsi:type="PQ" value="<=8/4" /> <interpretationCode codeSystem="local" code="S" /> <referenceRange> <observationRange> <text /> </observationRange> </referenceRange> </observation> </component> <component> <observation moodCode="EVN" classCode ="OBS"> <templateId root="2.16.840.1.394245.10..22.4.2" /> < id nullFlavor="NA" /> <code codeSystem="local" code="Waz2735" displayName="Ceftriaxone" /> <statusCode code="completed" /> < effectiveTime value="216919876443" /> <value unit="" xsi:type="PQ" value="<=8" /> <interpretationCode codeSystem="local" code="S" /> <referenceRange> <observationRange> <text /> </observationRange> </referenceRange> </observation> </component> <component> <observation moodCode="EVN" classCode= "OBS"> <templateId root="216.840.1.879842.10..22.4.2" /> < id nullFlavor="NA" /> <code codeSystem="local" code="Jxa0531" displayName="Ciprofloxacin" /> <statusCode code="completed" /> <effectiveTime value="" /> <value unit="" xsi:type="PQ" value="<=1" /> <interpretationCode codeSystem="local" code="S" /> <referenceRange> <observationRange> <text /> </observationRange> </referenceRange> </observation> </component> <component> <observation moodCode="EVN" classCode= "OBS"> <templateId root="216.840.1.576251...4.2" /> < id nullFlavor="NA" /> <code codeSystem="local" code="Gst5958" displayName="Nitrofurantoin" /> <statusCode code="completed" /> <effectiveTime value="" /> <value unit="" xsi:type="PQ" value="<=32" /> <interpretationCode codeSystem="local" code="S" /> <referenceRange> <observationRange> <text /> </observationRange> </referenceRange> </observation> </component> <component> <observation moodCode="EVN" classCode= "OBS"> <templateId root="216.840.1.579345.10...4.2" /> < id nullFlavor="NA" /> <code codeSystem="local" code="Hfs7376" displayName="Gentamicin" /> <statusCode code="completed" /> < effectiveTime value="" /> <value unit="" xsi:type="PQ" value="<=4" /> <interpretationCode codeSystem="local" code="S" /> <referenceRange> <observationRange> <text /> </observationRange> </referenceRange> </observation> </component> <component> <observation moodCode="EVN" classCode= "OBS"> <templateId root="216.840.1.610398.10.20.22.4.2" /> < id nullFlavor="NA" /> <code codeSystem="local" code="Qxw9424" displayName="Levofloxacin" /> <statusCode code="completed" /> <effectiveTime value="853719081162" /> <value unit="" xsi:type="PQ" value="<=2" /> <interpretationCode codeSystem="local" code="S" /> <referenceRange> <observationRange> <text /> </observationRange> </referenceRange> </observation> </component> <component> <observation moodCode="EVN" classCode= "OBS"> <templateId root="16.840.1.427433.10...4.2" /> < id nullFlavor="NA" /> <code codeSystem="local" code="Jap9586" displayName="Trimethoprim/ Sulfamethoxazole" /> <statusCode code= "completed" /> <effectiveTime value="364461201266" /> <value unit="" xsi:type="PQ" value="<=" /> <interpretationCode codeSystem="local" code="S" /> <referenceRange> < observationRange> <text /> </observationRange> </referenceRange> </observation> </component> <component> <observation moodCode="EVN" classCode="OBS"> <templateId root= "16.840.1.127135.10..22.4.2" /> <id nullFlavor="NA" /> < code codeSystem="local" code="Tsh6213" displayName="Tetracycline" /> < statusCode code="completed" /> <effectiveTime value="125172718158" /> <value unit="" xsi:type="PQ" value="<=4" /> < interpretationCode codeSystem="local" code="S" /> <referenceRange> <observationRange> <text /> </observationRange> </referenceRange> </observation> </component> < component> <observation moodCode="EVN" classCode="OBS"> < templateId root="2.16.840.1.122288.10..22.4.2" /> <id nullFlavor="NA " /> <code codeSystem="local" code="Ccj5926" displayName="Amikacin" /> <statusCode code="completed" /> <effectiveTime value= "123227956002" /> <value unit="" xsi:type="PQ" value="<=16" /> <interpretationCode codeSystem="local" code="S" /> <referenceRange > <observationRange> <text /> </ observationRange> </referenceRange> </observation> </ component> <component> <observation moodCode="EVN" classCode="OBS"> <templateId root="2.16.840.1.744142.10..22.4.2" /> <id nullFlavor="NA" /> <code codeSystem="local" code="Ixd6850" displayName= "Aztreonam" /> <statusCode code="completed" /> <effectiveTime value="759457344724" /> <value unit="" xsi:type="PQ" value="<=8" /> <interpretationCode codeSystem="local" code="S" /> < referenceRange> <observationRange> <text /> < /observationRange> </referenceRange> </observation> </ component> <component> <observation moodCode="EVN" classCode="OBS"> <templateId root="2.16.840.1.661688.10..22.4.2" /> <id nullFlavor="NA" /> <code codeSystem="local" code="Hms9009" displayName= "Ceftazidime" /> <statusCode code="completed" /> < effectiveTime value="" /> <value unit="" xsi:type="PQ" value="<=1" /> <interpretationCode codeSystem="local" code="S" /> <referenceRange> <observationRange> <text /> </observationRange> </referenceRange> </observation> </component> <component> <observation moodCode="EVN" classCode= "OBS"> <templateId root="216.840.1.002625.02.09.22.4.2" /> < id nullFlavor="NA" /> <code codeSystem="local" code="Sri8519" displayName="Ceftazidime/K Clavulanate" /> <statusCode code="completed " /> <effectiveTime value="" /> <value unit="" xsi :type="PQ" value="<=0.25" /> <referenceRange> < observationRange> <text /> </observationRange> </referenceRange> </observation> </component> <component> <observation moodCode="EVN" classCode="OBS"> <templateId root= "2.16.840.1.225751.10...4.2" /> <id nullFlavor="NA" /> < code codeSystem="local" code="Lvt3548" displayName="Cephalothin" /> < statusCode code="completed" /> <effectiveTime value="" /> <value unit="" xsi:type="PQ" value="16" /> < interpretationCode codeSystem="local" code="I" /> <referenceRange> <observationRange> <text /> </observationRange> </referenceRange> </observation> </component> < component> <observation moodCode="EVN" classCode="OBS"> < templateId root="216.840.1.906033.10...4.2" /> <id nullFlavor="NA " /> <code codeSystem="local" code="Wzq5738" displayName="Cefotaxime" / > <statusCode code="completed" /> <effectiveTime value= "979982668563" /> <value unit="" xsi:type="PQ" value="<=2" /> <interpretationCode codeSystem="local" code="S" /> <referenceRange > <observationRange> <text /> </ observationRange> </referenceRange> </observation> </ component> <component> <observation moodCode="EVN" classCode="OBS"> <templateId root="06.08.840.1.349810...4.2" /> <id nullFlavor="NA" /> <code codeSystem="local" code="Mlj2109" displayName= "Cefotaxime/K Clavulanate" /> <statusCode code="completed" /> <effectiveTime value="830833513533" /> <value unit="" xsi:type="PQ" value="<=0.5" /> <referenceRange> <observationRange> <text /> </observationRange> </referenceRange> </observation> </component> <component> <observation moodCode="EVN" classCode="OBS"> <templateId root= "06.08.840.1.530055.10..22.4.2" /> <id nullFlavor="NA" /> < code codeSystem="local" code="Zlh5699" displayName="Cefoxitin" /> < statusCode code="completed" /> <effectiveTime value="696909687157" /> <value unit="" xsi:type="PQ" value="<=8" /> < interpretationCode codeSystem="local" code="S" /> <referenceRange> <observationRange> <text /> </observationRange> </referenceRange> </observation> </component> < component> <observation moodCode="EVN" classCode="OBS"> < templateId root="2.16.840.1.900785.10..22.4.2" /> <id nullFlavor="NA " /> <code codeSystem="local" code="Aeb4182" displayName="Cefazolin" / > <statusCode code="completed" /> <effectiveTime value= "334817235746" /> <value unit="" xsi:type="PQ" value="<=8" /> <interpretationCode codeSystem="local" code="S" /> <referenceRange > <observationRange> <text /> </ observationRange> </referenceRange> </observation> </ component> <component> <observation moodCode="EVN" classCode="OBS"> <templateId root="2.16.840.1.702528.10..22.4.2" /> <id nullFlavor="NA" /> <code codeSystem="local" code="Tvy3170" displayName= "Cefepime" /> <statusCode code="completed" /> <effectiveTime value="205966888661" /> <value unit="" xsi:type="PQ" value="<=8" /> <interpretationCode codeSystem="local" code="S" /> < referenceRange> <observationRange> <text /> < /observationRange> </referenceRange> </observation> </ component> <component> <observation moodCode="EVN" classCode="OBS"> <templateId root="2.16.840.1.026195.10...4.2" /> <id nullFlavor="NA" /> <code codeSystem="local" code="Mrp9213" displayName= "Cefuroxime" /> <statusCode code="completed" /> < effectiveTime value="" /> <value unit="" xsi:type="PQ" value="<=4" /> <interpretationCode codeSystem="local" code="S" /> <referenceRange> <observationRange> <text /> </observationRange> </referenceRange> </observation> </component> <component> <observation moodCode="EVN" classCode= "OBS"> <templateId root="216.840.1.142787.02.09.22.4.2" /> < id nullFlavor="NA" /> <code codeSystem="local" code="Ync4832" displayName="Ertapenem" /> <statusCode code="completed" /> < effectiveTime value="" /> <value unit="" xsi:type="PQ" value="<=1" /> <interpretationCode codeSystem="local" code="S" /> <referenceRange> <observationRange> <text /> </observationRange> </referenceRange> </observation> </component> <component> <observation moodCode="EVN" classCode= "OBS"> <templateId root="216.840.1.838576.10..4.2" /> < id nullFlavor="NA" /> <code codeSystem="local" code="Lmv5428" displayName="Imipenem" /> <statusCode code="completed" /> < effectiveTime value="" /> <value unit="" xsi:type="PQ" value="<=4" /> <interpretationCode codeSystem="local" code="S" /> <referenceRange> <observationRange> <text /> </observationRange> </referenceRange> </observation> </component> <component> <observation moodCode="EVN" classCode= "OBS"> <templateId root="216.840.1.237650.10..4.2" /> < id nullFlavor="NA" /> <code codeSystem="local" code="Hdz0225" displayName="Meropenem" /> <statusCode code="completed" /> < effectiveTime value="068124307073" /> <value unit="" xsi:type="PQ" value="<=4" /> <interpretationCode codeSystem="local" code="S" /> <referenceRange> <observationRange> <text /> </observationRange> </referenceRange> </observation> </component> <component> <observation moodCode="EVN" classCode= "OBS"> <templateId root="216.840.1.212806.02.09.22.4.2" /> < id nullFlavor="NA" /> <code codeSystem="local" code="Euo0982" displayName="Piperacillin/Tazobactam" /> <statusCode code="completed" / > <effectiveTime value="385364486999" /> <value unit="" xsi: type="PQ" value="<=16" /> <interpretationCode codeSystem="local" code="S" /> <referenceRange> <observationRange> <text /> </observationRange> </referenceRange> </ observation> </component> <component> <observation moodCode= "EVN" classCode="OBS"> <templateId root="216.840.1.623376.02.09.22.4.2 " /> <id nullFlavor="NA" /> <code codeSystem="local" code= "Cch4549" displayName="Piperacillin" /> <statusCode code="completed" / > <effectiveTime value="" /> <value unit="" xsi: type="PQ" value="<=16" /> <interpretationCode codeSystem="local" code="S" /> <referenceRange> <observationRange> <text /> </observationRange> </referenceRange> </ observation> </component> <component> <observation moodCode= "EVN" classCode="OBS"> <templateId root="216.840.1.003363.02.09.22.4.2 " /> <id nullFlavor="NA" /> <code codeSystem="local" code= "Xmt1691" displayName="Tigecycline" /> <statusCode code="completed" /> <effectiveTime value="" /> <value unit="" xsi: type="PQ" value="<=2" /> <interpretationCode codeSystem="local" code ="S" /> <referenceRange> <observationRange> < text /> </observationRange> </referenceRange> </ observation> </component> <component> <observation moodCode= "EVN" classCode="OBS"> <templateId root="16.840.1.081261.02.09.22.4.2 " /> <id nullFlavor="NA" /> <code codeSystem="local" code= "Utz0938" displayName="Tobramycin" /> <statusCode code="completed" /> <effectiveTime value="" /> <value unit="" xsi:type ="PQ" value="<=4" /> <interpretationCode codeSystem="local" code="S " /> <referenceRange> <observationRange> <text /> </observationRange> </referenceRange> </ observation> </component> </organizer> </entry> <entry> <organizer moodCode="EVN" classCode="BATTERY"> <templateId root= "216.840.1.750794.10..22.4.1" /> <id nullFlavor="NA" /> <code codeSystem="local" code="86298-2" displayName="Complete urinalysis with reflex to culture" /> <statusCode code="completed" /> <component> < observation moodCode="EVN" classCode="OBS"> <templateId root= "216.840.1.788558.10..4.2" /> <id nullFlavor="NA" /> < code codeSystem="local" code="5778-6" displayName="Urine color determination" / > <statusCode code="completed" /> <effectiveTime value= "570617714215" /> <value unit="" xsi:type="PQ" value="YELLOW" /> <referenceRange> <observationRange> <text>NRG</text > </observationRange> </referenceRange> </observation > </component> <component> <observation moodCode="EVN" classCode="OBS"> <templateId root="216.840.1.961042.10...4.2" /> <id nullFlavor="NA" /> <code codeSystem="local" code="27727-9 " displayName="Urine clarity determination" /> <statusCode code= "completed" /> <effectiveTime value="215693057207" /> <value unit="" xsi:type="PQ" value="CLEAR" /> <referenceRange> < observationRange> <text>NRG</text> </observationRange> </referenceRange> </observation> </component> < component> <observation moodCode="EVN" classCode="OBS"> < templateId root="16.840.1.860428.10.20.22.4.2" /> <id nullFlavor="NA " /> <code codeSystem="local" code="5803-2" displayName="Urine pH measurement by test strip" /> <statusCode code="completed" /> <effectiveTime value="169368403186" /> <value unit="" xsi:type="PQ" value="6" /> <referenceRange> <observationRange> <text>5-9</text> </observationRange> </referenceRange> </observation> </component> <component> <observation moodCode="EVN" classCode="OBS"> <templateId root= "06.08.840.1.523521.10..4.2" /> <id nullFlavor="NA" /> < code codeSystem="local" code="5811-5" displayName="Specific gravity of urine by test strip" /> <statusCode code="completed" /> <effectiveTime value="716290938339" /> <value unit="" xsi:type="PQ" value="1.015" /> <interpretationCode codeSystem="local" code="" /> < referenceRange> <observationRange> <text>1.016-1.022</ text> </observationRange> </referenceRange> </ observation> </component> <component> <observation moodCode= "EVN" classCode="OBS"> <templateId root="16.840.1.657667.10.20.22.4.2 " /> <id nullFlavor="NA" /> <code codeSystem="local" code= "83228-6" displayName="Urine protein assay by test strip, semi-quantitative" /> <statusCode code="completed" /> <effectiveTime value= "678101060268" /> <value unit="" xsi:type="PQ" value="NEGATIVE" /> <referenceRange> <observationRange> <text>NEGATIVE </text> </observationRange> </referenceRange> </ observation> </component> <component> <observation moodCode= "EVN" classCode="OBS"> <templateId root="06.08.840.1.108960.10.20.22.4.2 " /> <id nullFlavor="NA" /> <code codeSystem="local" code= "69391-9" displayName="Urine glucose detection by automated test strip" /> <statusCode code="completed" /> <effectiveTime value="805170464184 " /> <value unit="" xsi:type="PQ" value="NEGATIVE" /> < referenceRange> <observationRange> <text>NEGATIVE</text > </observationRange> </referenceRange> </observation > </component> <component> <observation moodCode="EVN" classCode="OBS"> <templateId root="06.08.840.1.409606.10...4.2" /> <id nullFlavor="NA" /> <code codeSystem="local" code="18360-7 " displayName="Erythrocytes detection in urine sediment by light microscopy" /> <statusCode code="completed" /> <effectiveTime value= "091097632012" /> <value unit="" xsi:type="PQ" value="1+" /> < interpretationCode codeSystem="local" code="*" /> <referenceRange> <observationRange> <text>NEGATIVE</text> </ observationRange> </referenceRange> </observation> </ component> <component> <observation moodCode="EVN" classCode="OBS"> <templateId root="06.08.840.1.686734.10.20.22.4.2" /> <id nullFlavor="NA" /> <code codeSystem="local" code="66661-5" displayName= "Urine ketones detection by automated test strip" /> <statusCode code= "completed" /> <effectiveTime value="968404157532" /> <value unit="" xsi:type="PQ" value="NEGATIVE" /> <referenceRange> < observationRange> <text>NEGATIVE</text> </ observationRange> </referenceRange> </observation> </ component> <component> <observation moodCode="EVN" classCode="OBS"> <templateId root="216.840.1.242416.10.20.22.4.2" /> <id nullFlavor="NA" /> <code codeSystem="local" code="5802-4" displayName= "Urine nitrite detection by test strip" /> <statusCode code="completed " /> <effectiveTime value="002357579050" /> <value unit="" xsi :type="PQ" value="NEGATIVE" /> <referenceRange> < observationRange> <text>NEGATIVE</text> </ observationRange> </referenceRange> </observation> </ component> <component> <observation moodCode="EVN" classCode="OBS"> <templateId root="216.840.1.583974.10.20.22.4.2" /> <id nullFlavor="NA" /> <code codeSystem="local" code="5770-3" displayName= "Urine total bilirubin detection by test strip" /> <statusCode code= "completed" /> <effectiveTime value="653379217451" /> <value unit="" xsi:type="PQ" value="NEGATIVE" /> <referenceRange> < observationRange> <text>NEGATIVE</text> </ observationRange> </referenceRange> </observation> </ component> <component> <observation moodCode="EVN" classCode="OBS"> <templateId root="216.840.1.170689.22.4.2" /> <id nullFlavor="NA" /> <code codeSystem="local" code="07285-8" displayName= "Urine urobilinogen measurement by automated test strip (mass/volume)" /> <statusCode code="completed" /> <effectiveTime value="807271473121 " /> <value unit="" xsi:type="PQ" value="NORMAL" /> < referenceRange> <observationRange> <text>NORMAL</text> </observationRange> </referenceRange> </observation> </component> <component> <observation moodCode="EVN" classCode ="OBS"> <templateId root="216.840.1.491517.02.09.22.4.2" /> < id nullFlavor="NA" /> <code codeSystem="local" code="5799-2" displayName="Urine leukocyte esterase detection by dipstick" /> < statusCode code="completed" /> <effectiveTime value="461513989815" /> <value unit="" xsi:type="PQ" value="NEGATIVE" /> < referenceRange> <observationRange> <text>NEGATIVE</text > </observationRange> </referenceRange> </observation > </component> <component> <observation moodCode="EVN" classCode="OBS"> <templateId root="16.840.1.130333.10..4.2" /> <id nullFlavor="NA" /> <code codeSystem="local" code="24510-7 " displayName="Automated urine sediment erythrocyte count by microscopy (number/ high power field)" /> <statusCode code="completed" /> < effectiveTime value="585219053971" /> <value unit="[HPF]" xsi:type="PQ " value="" /> <referenceRange> <observationRange> <text>NRG</text> </observationRange> </referenceRange> </observation> </component> <component> <observation moodCode="EVN" classCode="OBS"> <templateId root= "216.840.1.505025.10..4.2" /> <id nullFlavor="NA" /> < code codeSystem="local" code="5821-4" displayName="Automated urine sediment leukocyte count by microscopy (number/high power field)" /> < statusCode code="completed" /> <effectiveTime value="838407554444" /> <value unit="" xsi:type="PQ" value="RARE" /> <referenceRange> <observationRange> <text>NRG</text> </ observationRange> </referenceRange> </observation> </ component> <component> <observation moodCode="EVN" classCode="OBS"> <templateId root="06.08.840.1.647766.02.09.22.4.2" /> <id nullFlavor="NA" /> <code codeSystem="local" code="99899-4" displayName= "Bacteria detection in urine sediment by light microscopy" /> < statusCode code="completed" /> <effectiveTime value="727980803565" /> <value unit="" xsi:type="PQ" value="TRACE" /> <referenceRange > <observationRange> <text>NRG</text> </ observationRange> </referenceRange> </observation> </ component> <component> <observation moodCode="EVN" classCode="OBS"> <templateId root="16.840.1.032166.10..4.2" /> <id nullFlavor="NA" /> <code codeSystem="local" code="68858-0" displayName= "Squamous epithelial cells detection in urine sediment by light microscopy" /> <statusCode code="completed" /> <effectiveTime value= "612198152068" /> <value unit="" xsi:type="PQ" value="5-10" /> <referenceRange> <observationRange> <text>NRG</text> </observationRange> </referenceRange> </observation> </component> <component> <observation moodCode="EVN" classCode ="OBS"> <templateId root="216.840.1.875653.10..22.4.2" /> < id nullFlavor="NA" /> <code codeSystem="local" code="66986-5" displayName="Crystals detection in urine sediment by light microscopy" /> <statusCode code="completed" /> <effectiveTime value="799009633770 " /> <value unit="" xsi:type="PQ" value="NONE" /> < referenceRange> <observationRange> <text>NRG</text> </observationRange> </referenceRange> </observation> </component> <component> <observation moodCode="EVN" classCode= "OBS"> <templateId root="06.08.840.1.041009.1022.4.2" /> < id nullFlavor="NA" /> <code codeSystem="local" code="23866-2" displayName="Casts detection in urine sediment by light microscopy" /> <statusCode code="completed" /> <effectiveTime value="947924403306" /> <value unit="" xsi:type="PQ" value="NONE" /> <referenceRange > <observationRange> <text>NRG</text> </ observationRange> </referenceRange> </observation> </ component> <component> <observation moodCode="EVN" classCode="OBS"> <templateId root="16.840.1.240376.10.20.22.4.2" /> <id nullFlavor="NA" /> <code codeSystem="local" code="8247-9" displayName= "Mucus detection in urine sediment by light microscopy" /> <statusCode code="completed" /> <effectiveTime value="607512739780" /> < value unit="" xsi:type="PQ" value="SMALL" /> <interpretationCode codeSystem="local" code="*" /> <referenceRange> < observationRange> <text>NRG</text> </observationRange> </referenceRange> </observation> </component> < component> <observation moodCode="EVN" classCode="OBS"> < templateId root="06.08.840.1.554815.10...4.2" /> <id nullFlavor="NA " /> <code codeSystem="local" code="02658-0" displayName="Complete urinalysis with reflex to culture" /> <statusCode code="completed" /> <effectiveTime value="840787782368" /> <value unit="" xsi:type ="PQ" value="NO" /> <referenceRange> <observationRange> <text>NRG</text> </observationRange> </ referenceRange> </observation> </component> </organizer> </entry > <entry> <organizer moodCode="EVN" classCode="BATTERY"> <templateId root="06.08.840.1.883843.10...4.1" /> <id nullFlavor="NA" /> <code codeSystem="local" code="88985-7" displayName="Complete blood count (CBC) with automated white blood cell (WBC) differential" /> <statusCode code= "completed" /> <component> <observation moodCode="EVN" classCode= "OBS"> <templateId root="06.08.840.1.357011.10.20.22.4.2" /> < id nullFlavor="NA" /> <code codeSystem="local" code="6690-2" displayName="Blood leukocytes automated count (number/volume)" /> < statusCode code="completed" /> <effectiveTime value="593079001665" /> <value unit="10*3/uL" xsi:type="PQ" value="4.8" /> < referenceRange> <observationRange> <text>4.3-11.0</text > </observationRange> </referenceRange> </observation > </component> <component> <observation moodCode="EVN" classCode="OBS"> <templateId root="2.16.840.1.602235.10..22.4.2" /> <id nullFlavor="NA" /> <code codeSystem="local" code="789-8" displayName="Blood erythrocytes automated count (number/volume)" /> < statusCode code="completed" /> <effectiveTime value="332211801609" /> <value unit="10*6/uL" xsi:type="PQ" value="4.24" /> < interpretationCode codeSystem="local" code="" /> <referenceRange> <observationRange> <text>4.35-5.85</text> </ observationRange> </referenceRange> </observation> </ component> <component> <observation moodCode="EVN" classCode="OBS"> <templateId root="2.16.840.1.733359.10..22.4.2" /> <id nullFlavor="NA" /> <code codeSystem="local" code="84375-2" displayName= "Venous blood hemoglobin measurement (mass/volume)" /> <statusCode code ="completed" /> <effectiveTime value="296099922718" /> <value unit="g/dL" xsi:type="PQ" value="14.5" /> <referenceRange> < observationRange> <text>11.5-16.0</text> </ observationRange> </referenceRange> </observation> </ component> <component> <observation moodCode="EVN" classCode="OBS"> <templateId root="216.840.1.150245.10.20.22.4.2" /> <id nullFlavor="NA" /> <code codeSystem="local" code="64856-2" displayName= "Blood hematocrit (volume fraction)" /> <statusCode code="completed" / > <effectiveTime value="799272328017" /> <value unit="%" xsi:type="PQ" value="43" /> <referenceRange> < observationRange> <text>35-52</text> </observationRange > </referenceRange> </observation> </component> < component> <observation moodCode="EVN" classCode="OBS"> < templateId root="06.08.840.1.488657.1022.4.2" /> <id nullFlavor="NA " /> <code codeSystem="local" code="787-2" displayName="Automated erythrocyte mean corpuscular volume" /> <statusCode code="completed" / > <effectiveTime value="631531311500" /> <value unit="[foz_us] " xsi:type="PQ" value="101" /> <interpretationCode codeSystem="local" code="" /> <referenceRange> <observationRange> <text>80-99</text> </observationRange> </referenceRange> </observation> </component> <component> <observation moodCode="EVN" classCode="OBS"> <templateId root= "06.08.840.1.772326.10.20.22.4.2" /> <id nullFlavor="NA" /> < code codeSystem="local" code="785-6" displayName="Automated erythrocyte mean corpuscular hemoglobin (mass per erythrocyte)" /> <statusCode code= "completed" /> <effectiveTime value="558539514657" /> <value unit="pg" xsi:type="PQ" value="34" /> <referenceRange> < observationRange> <text>25-34</text> </observationRange > </referenceRange> </observation> </component> < component> <observation moodCode="EVN" classCode="OBS"> < templateId root="2.16.840.1.630021.10.20.22.4.2" /> <id nullFlavor="NA " /> <code codeSystem="local" code="786-4" displayName="Automated erythrocyte mean corpuscular hemoglobin concentration measurement (mass/volume) " /> <statusCode code="completed" /> <effectiveTime value= "343764322530" /> <value unit="g/dL" xsi:type="PQ" value="34" /> <referenceRange> <observationRange> <text>32-36</ text> </observationRange> </referenceRange> </ observation> </component> <component> <observation moodCode= "EVN" classCode="OBS"> <templateId root="2.16.840.1.160497.10.20.22.4.2 " /> <id nullFlavor="NA" /> <code codeSystem="local" code="788 -0" displayName="Automated erythrocyte distribution width ratio" /> < statusCode code="completed" /> <effectiveTime value="605307770411" /> <value unit="%" xsi:type="PQ" value="13.0" /> < referenceRange> <observationRange> <text>10.0-14.5</text > </observationRange> </referenceRange> </observation > </component> <component> <observation moodCode="EVN" classCode="OBS"> <templateId root="2.16.840.1.013452.10.20.22.4.2" /> <id nullFlavor="NA" /> <code codeSystem="local" code="777-3" displayName="Automated blood platelet count (count/volume)" /> < statusCode code="completed" /> <effectiveTime value="616483124550" /> <value unit="10*3/uL" xsi:type="PQ" value="390" /> < referenceRange> <observationRange> <text>130-400</text> </observationRange> </referenceRange> </observation > </component> <component> <observation moodCode="EVN" classCode="OBS"> <templateId root="216.840.1.553766.10.20.22.4.2" /> <id nullFlavor="NA" /> <code codeSystem="local" code="47852-6 " displayName="Automated blood platelet mean volume measurement" /> < statusCode code="completed" /> <effectiveTime value="033213910821" /> <value unit="[[facility]]" xsi:type="PQ" value="8.6" /> < referenceRange> <observationRange> <text>7.4-10.4</text > </observationRange> </referenceRange> </observation > </component> <component> <observation moodCode="EVN" classCode="OBS"> <templateId root="16.840.1.314905.10.20.22.4.2" /> <id nullFlavor="NA" /> <code codeSystem="local" code="770-8" displayName="Automated blood neutrophils/100 leukocytes" /> < statusCode code="completed" /> <effectiveTime value="752317456336" /> <value unit="%" xsi:type="PQ" value="60" /> < referenceRange> <observationRange> <text>42-75</text> </observationRange> </referenceRange> </observation> </component> <component> <observation moodCode="EVN" classCode= "OBS"> <templateId root="2.16.840.1.381279.10.20.22.4.2" /> < id nullFlavor="NA" /> <code codeSystem="local" code="736-9" displayName ="Automated blood lymphocytes/100 leukocytes" /> <statusCode code= "completed" /> <effectiveTime value="177050938903" /> <value unit="%" xsi:type="PQ" value="31" /> <referenceRange> < observationRange> <text>12-44</text> </observationRange > </referenceRange> </observation> </component> < component> <observation moodCode="EVN" classCode="OBS"> < templateId root="216.840.1.803278.10.20.22.4.2" /> <id nullFlavor="NA " /> <code codeSystem="local" code="78097-3" displayName="Blood monocytes/100 leukocytes" /> <statusCode code="completed" /> < effectiveTime value="482575390321" /> <value unit="%" xsi:type="PQ " value="8" /> <referenceRange> <observationRange> <text>0-12</text> </observationRange> </referenceRange > </observation> </component> <component> <observation moodCode="EVN" classCode="OBS"> <templateId root= "2.16.840.1.657938.10.20.22.4.2" /> <id nullFlavor="NA" /> < code codeSystem="local" code="713-8" displayName="Automated blood eosinophils/ 100 leukocytes" /> <statusCode code="completed" /> < effectiveTime value="453473544296" /> <value unit="%" xsi:type="PQ " value="0" /> <referenceRange> <observationRange> <text>0-10</text> </observationRange> </referenceRange > </observation> </component> <component> <observation moodCode="EVN" classCode="OBS"> <templateId root= "2.16.840.1.169214.10..22.4.2" /> <id nullFlavor="NA" /> < code codeSystem="local" code="706-2" displayName="Automated blood basophils/100 leukocytes" /> <statusCode code="completed" /> <effectiveTime value="695204598248" /> <value unit="%" xsi:type="PQ" value="0" /> <referenceRange> <observationRange> <text>0-10 </text> </observationRange> </referenceRange> </ observation> </component> <component> <observation moodCode= "EVN" classCode="OBS"> <templateId root="2.16.840.1.950986.10..22.4.2 " /> <id nullFlavor="NA" /> <code codeSystem="local" code="751 -8" displayName="Blood neutrophils automated count (number/volume)" /> <statusCode code="completed" /> <effectiveTime value="847609790888" /> <value unit="10*3" xsi:type="PQ" value="2.9" /> < referenceRange> <observationRange> <text>1.8-7.8</text> </observationRange> </referenceRange> </observation > </component> <component> <observation moodCode="EVN" classCode="OBS"> <templateId root="2.16.840.1.335806.02.09.22.4.2" /> <id nullFlavor="NA" /> <code codeSystem="local" code="731-0" displayName="Blood lymphocytes automated count (number/volume)" /> < statusCode code="completed" /> <effectiveTime value="895601583922" /> <value unit="10*3" xsi:type="PQ" value="1.5" /> < referenceRange> <observationRange> <text>1.0-4.0</text> </observationRange> </referenceRange> </observation > </component> <component> <observation moodCode="EVN" classCode="OBS"> <templateId root="216.840.1.804076.02.09.22.4.2" /> <id nullFlavor="NA" /> <code codeSystem="local" code="742-7" displayName="Blood monocytes automated count (number/volume)" /> < statusCode code="completed" /> <effectiveTime value="954264903998" /> <value unit="10*3" xsi:type="PQ" value="0.4" /> < referenceRange> <observationRange> <text>0.0-1.0</text> </observationRange> </referenceRange> </observation > </component> <component> <observation moodCode="EVN" classCode="OBS"> <templateId root="16.840.1.949075.02.09.22.4.2" /> <id nullFlavor="NA" /> <code codeSystem="local" code="711-2" displayName="Automated eosinophil count" /> <statusCode code="completed " /> <effectiveTime value="389006286383" /> <value unit="10*3/ uL" xsi:type="PQ" value="0.0" /> <referenceRange> < observationRange> <text>0.0-0.3</text> </ observationRange> </referenceRange> </observation> </ component> <component> <observation moodCode="EVN" classCode="OBS"> <templateId root="216.840.1.139857.10.20.22.4.2" /> <id nullFlavor="NA" /> <code codeSystem="local" code="704-7" displayName= "Automated blood basophil count (count/volume)" /> <statusCode code= "completed" /> <effectiveTime value="712293923359" /> <value unit="10*3/uL" xsi:type="PQ" value="0.0" /> <referenceRange> <observationRange> <text>0.0-0.1</text> </ observationRange> </referenceRange> </observation> </ component> </organizer> </entry> <entry> <organizer moodCode="EVN" classCode="BATTERY"> <templateId root="216.840.1.148903.10..22.4.1" /> <id nullFlavor="NA" /> <code codeSystem="local" code="60896-8" displayName="Comprehensive metabolic panel" /> <statusCode code="completed " /> <component> <observation moodCode="EVN" classCode="OBS"> <templateId root="216.840.1.688827.10..22.4.2" /> <id nullFlavor ="NA" /> <code codeSystem="local" code="2951-2" displayName="Serum or plasma sodium measurement (moles/volume)" /> <statusCode code= "completed" /> <effectiveTime value="290480919912" /> <value unit="mmol/L" xsi:type="PQ" value="137" /> <referenceRange> <observationRange> <text>135-145</text> </ observationRange> </referenceRange> </observation> </ component> <component> <observation moodCode="EVN" classCode="OBS"> <templateId root="2.16.840.1.823893.10.20.22.4.2" /> <id nullFlavor="NA" /> <code codeSystem="local" code="2822-06" displayName= "Serum or plasma potassium measurement (moles/volume)" /> <statusCode code="completed" /> <effectiveTime value="750121391551" /> < value unit="mmol/L" xsi:type="PQ" value="3.8" /> <referenceRange> <observationRange> <text>3.6-5.0</text> </ observationRange> </referenceRange> </observation> </ component> <component> <observation moodCode="EVN" classCode="OBS"> <templateId root="2.16.840.1.595969.10...4.2" /> <id nullFlavor="NA" /> <code codeSystem="local" code="" displayName= "Serum or plasma chloride measurement (moles/volume)" /> <statusCode code="completed" /> <effectiveTime value="100133831072" /> < value unit="mmol/L" xsi:type="PQ" value="105" /> <referenceRange> <observationRange> <text>98-107</text> </ observationRange> </referenceRange> </observation> </ component> <component> <observation moodCode="EVN" classCode="OBS"> <templateId root="2.16.840.1.998449.10.20.22.4.2" /> <id nullFlavor="NA" /> <code codeSystem="local" code="2027-12" displayName= "Carbon dioxide" /> <statusCode code="completed" /> < effectiveTime value="786901550746" /> <value unit="mmol/L" xsi:type="PQ " value="20" /> <interpretationCode codeSystem="local" code="" /> <referenceRange> <observationRange> <text>21-32</ text> </observationRange> </referenceRange> </ observation> </component> <component> <observation moodCode= "EVN" classCode="OBS"> <templateId root="216.840.1.056436.10.20.22.4.2 " /> <id nullFlavor="NA" /> <code codeSystem="local" code= "84152-2" displayName="Serum or plasma anion gap determination (moles/volume)" / > <statusCode code="completed" /> <effectiveTime value= "659306575233" /> <value unit="mmol/L" xsi:type="PQ" value="12" /> <referenceRange> <observationRange> <text>5-14</ text> </observationRange> </referenceRange> </ observation> </component> <component> <observation moodCode= "EVN" classCode="OBS"> <templateId root="216.840.1.534765.10.20.22.4.2 " /> <id nullFlavor="NA" /> <code codeSystem="local" code= "3094-0" displayName="Serum or plasma urea nitrogen measurement (mass/volume)" / > <statusCode code="completed" /> <effectiveTime value= "512919934587" /> <value unit="mg/dL" xsi:type="PQ" value="8" /> <referenceRange> <observationRange> <text>7-18</text > </observationRange> </referenceRange> </observation > </component> <component> <observation moodCode="EVN" classCode="OBS"> <templateId root="840.1.631878.10.20.22.4.2" /> <id nullFlavor="NA" /> <code codeSystem="local" code="2160-0" displayName="Serum or plasma creatinine measurement (mass/volume)" /> < statusCode code="completed" /> <effectiveTime value="476376496079" /> <value unit="mg/dL" xsi:type="PQ" value="0.78" /> < referenceRange> <observationRange> <text>0.60-1.30</text > </observationRange> </referenceRange> </observation > </component> <component> <observation moodCode="EVN" classCode="OBS"> <templateId root="2.16.840.1.043317.10..22.4.2" /> <id nullFlavor="NA" /> <code codeSystem="local" code="3097-3" displayName="Serum or plasma urea nitrogen/creatinine mass ratio" /> < statusCode code="completed" /> <effectiveTime value="194416715767" /> <value unit="" xsi:type="PQ" value="10" /> <referenceRange> <observationRange> <text>NRG</text> </ observationRange> </referenceRange> </observation> </ component> <component> <observation moodCode="EVN" classCode="OBS"> <templateId root="216.840.1.773324.10.20.22.4.2" /> <id nullFlavor="NA" /> <code codeSystem="local" code="76575-8" displayName= "Serum or plasma creatinine measurement with calculation of estimated glomerular filtration rate" /> <statusCode code="completed" /> <effectiveTime value="692482512474" /> <value unit="" xsi:type="PQ" value=">" /> <referenceRange> <observationRange> <text>NRG</text> </observationRange> </referenceRange > </observation> </component> <component> <observation moodCode="EVN" classCode="OBS"> <templateId root= "216.840.1.175795.10.20.22.4.2" /> <id nullFlavor="NA" /> < code codeSystem="local" code="2345-7" displayName="Serum or plasma glucose measurement (mass/volume)" /> <statusCode code="completed" /> <effectiveTime value="567521588899" /> <value unit="mg/dL" xsi:type="PQ " value="109" /> <interpretationCode codeSystem="local" code="" /> <referenceRange> <observationRange> <text>70-105 </text> </observationRange> </referenceRange> </ observation> </component> <component> <observation moodCode= "EVN" classCode="OBS"> <templateId root="06.08.840.1.565649.10..22.4.2 " /> <id nullFlavor="NA" /> <code codeSystem="local" code= "33095-9" displayName="Serum or plasma calcium measurement (mass/volume)" /> <statusCode code="completed" /> <effectiveTime value= "021849623747" /> <value unit="mg/dL" xsi:type="PQ" value="9.9" /> <referenceRange> <observationRange> <text>8.5-10.1 </text> </observationRange> </referenceRange> </ observation> </component> <component> <observation moodCode= "EVN" classCode="OBS"> <templateId root="216.840.1.759120.10.20.22.4.2 " /> <id nullFlavor="NA" /> <code codeSystem="local" code= "1974-05" displayName="Serum or plasma total bilirubin measurement (mass/volume) " /> <statusCode code="completed" /> <effectiveTime value= "270710119123" /> <value unit="mg/dL" xsi:type="PQ" value="0.2" /> <referenceRange> <observationRange> <text>0.1-1.0< /text> </observationRange> </referenceRange> </ observation> </component> <component> <observation moodCode= "EVN" classCode="OBS"> <templateId root="2.16.840.1.866433.10.20.22.4.2 " /> <id nullFlavor="NA" /> <code codeSystem="local" code= "67686" displayName="Serum or plasma alkaline phosphatase measurement ( enzymatic activity/volume)" /> <statusCode code="completed" /> <effectiveTime value="051415343204" /> <value unit="U/L" xsi:type="PQ " value="68" /> <referenceRange> <observationRange> <text>40-136</text> </observationRange> </ referenceRange> </observation> </component> <component> <observation moodCode="EVN" classCode="OBS"> <templateId root= "2.16.840.1.962081.10.20.22.4.2" /> <id nullFlavor="NA" /> < code codeSystem="local" code="192" displayName="Serum or plasma aspartate aminotransferase measurement (enzymatic activity/volume)" /> < statusCode code="completed" /> <effectiveTime value="526976026103" /> <value unit="U/L" xsi:type="PQ" value="17" /> <referenceRange > <observationRange> <text>5-34</text> </ observationRange> </referenceRange> </observation> </ component> <component> <observation moodCode="EVN" classCode="OBS"> <templateId root="2.16.840.1.574528.10.20.22.4.2" /> <id nullFlavor="NA" /> <code codeSystem="local" code="1742-6" displayName= "Serum or plasma alanine aminotransferase measurement (enzymatic activity/volume )" /> <statusCode code="completed" /> <effectiveTime value= "400519388808" /> <value unit="U/L" xsi:type="PQ" value="14" /> <referenceRange> <observationRange> <text>0-55</text > </observationRange> </referenceRange> </observation > </component> <component> <observation moodCode="EVN" classCode="OBS"> <templateId root="2.16.840.1.715090.10..22.4.2" /> <id nullFlavor="NA" /> <code codeSystem="local" code="2885-2" displayName="Serum or plasma protein measurement (mass/volume)" /> < statusCode code="completed" /> <effectiveTime value="878296214875" /> <value unit="g/dL" xsi:type="PQ" value="8.7" /> < interpretationCode codeSystem="local" code="" /> <referenceRange> <observationRange> <text>6.4-8.2</text> </ observationRange> </referenceRange> </observation> </ component> <component> <observation moodCode="EVN" classCode="OBS"> <templateId root="2.16.840.1.896373.10.20.22.4.2" /> <id nullFlavor="NA" /> <code codeSystem="local" code="1751-7" displayName= "Serum or plasma albumin measurement (mass/volume)" /> <statusCode code ="completed" /> <effectiveTime value="817223121616" /> <value unit="g/dL" xsi:type="PQ" value="5.1" /> <interpretationCode codeSystem ="local" code="" /> <referenceRange> <observationRange> <text>3.2-4.5</text> </observationRange> </ referenceRange> </observation> </component> </organizer> </entry > <entry> <organizer moodCode="EVN" classCode="BATTERY"> <templateId root="2.16.840.1.058690.10.20.22.4.1" /> <id nullFlavor="NA" /> <code codeSystem="local" code="1798-8" displayName="Serum or plasma amylase measurement (enzymatic activity/volume)" /> <statusCode code="completed" / > <component> <observation moodCode="EVN" classCode="OBS"> <templateId root="2.16.840.1.086210.10.20.22.4.2" /> <id nullFlavor="NA " /> <code codeSystem="local" code="17988" displayName="Serum or plasma amylase measurement (enzymatic activity/volume)" /> <statusCode code="completed" /> <effectiveTime value="140182803732" /> < value unit="U/L" xsi:type="PQ" value="48" /> <referenceRange> <observationRange> <text>25-125</text> </ observationRange> </referenceRange> </observation> </ component> </organizer> </entry> <entry> <organizer moodCode="EVN" classCode="BATTERY"> <templateId root="2.16.840.1.275237.10.20.22.4.1" /> <id nullFlavor="NA" /> <code codeSystem="local" code="3040-3" displayName="Lipase" /> <statusCode code="completed" /> <component> <observation moodCode="EVN" classCode="OBS"> <templateId root= "2.16.840.1.090123.10.20.22.4.2" /> <id nullFlavor="NA" /> < code codeSystem="local" code="3040-3" displayName="Lipase" /> < statusCode code="completed" /> <effectiveTime value="714152514102" /> <value unit="U/L" xsi:type="PQ" value="11" /> <referenceRange > <observationRange> <text>8-78</text> </ observationRange> </referenceRange> </observation> </ component> </organizer> </entry> <entry> <organizer moodCode="EVN" classCode="BATTERY"> <templateId root="2.16.840.1.346522.10.20.22.4.1" /> <id nullFlavor="NA" /> <code codeSystem="local" code="35216-5" displayName="Blood lactic acid measurement (moles/volume)" /> <statusCode code="completed" /> <component> <observation moodCode="EVN" classCode="OBS"> <templateId root="2.16.840.1.681607.10.20.22.4.2" /> <id nullFlavor="NA" /> <code codeSystem="local" code="40364-7 " displayName="Blood lactic acid measurement (moles/volume)" /> < statusCode code="completed" /> <effectiveTime value="258300993814" /> <value unit="mmol/L" xsi:type="PQ" value="0.64" /> < referenceRange> <observationRange> <text>0.50-2.00</text > </observationRange> </referenceRange> </observation > </component> </organizer> </entry> <entry> <organizer moodCode= "EVN" classCode="BATTERY"> <templateId root="216.840.1.111496.10..22.4.1 " /> <id nullFlavor="NA" /> <code codeSystem="local" code="600-7" displayName="Bacterial blood culture" /> <statusCode code="completed" /> <component> <observation moodCode="EVN" classCode="OBS"> < templateId root="06.08.840.1.310132.10..4.2" /> <id nullFlavor="NA " /> <code codeSystem="local" code="600-7" displayName="Bacterial blood culture" /> <statusCode code="completed" /> < effectiveTime value="124169096949" /> <value unit="" xsi:type="PQ" value="NG" /> <referenceRange> <observationRange> <text>NRG</text> </observationRange> </referenceRange> </observation> </component> </organizer> </entry> <entry> < organizer moodCode="EVN" classCode="BATTERY"> <templateId root= "216.840.1.972261.10..4.1" /> <id nullFlavor="NA" /> <code codeSystem="local" code="600-7" displayName="Bacterial blood culture" /> < statusCode code="completed" /> <component> <observation moodCode= "EVN" classCode="OBS"> <templateId root="216.840.1.489845.10...4.2 " /> <id nullFlavor="NA" /> <code codeSystem="local" code="600 -7" displayName="Bacterial blood culture" /> <statusCode code= "completed" /> <effectiveTime value="683254824726" /> <value unit="" xsi:type="PQ" value="NG" /> <referenceRange> < observationRange> <text>NRG</text> </observationRange> </referenceRange> </observation> </component> </ organizer> </entry> <entry> <organizer moodCode="EVN" classCode="BATTERY"> <templateId root="216.840.1.030718.10.22.4.1" /> <id nullFlavor= "NA" /> <code codeSystem="local" code="79559-2" displayName="Complete urinalysis with reflex to culture" /> <statusCode code="completed" /> <component> <observation moodCode="EVN" classCode="OBS"> < templateId root="216.840.1.817118.10...4.2" /> <id nullFlavor="NA " /> <code codeSystem="local" code="5778-6" displayName="Urine color determination" /> <statusCode code="completed" /> < effectiveTime value="626663167396" /> <value unit="" xsi:type="PQ" value="YELLOW" /> <referenceRange> <observationRange> <text>NRG</text> </observationRange> </ referenceRange> </observation> </component> <component> <observation moodCode="EVN" classCode="OBS"> <templateId root= "16.840.1.485009.10..22.4.2" /> <id nullFlavor="NA" /> < code codeSystem="local" code="91408-0" displayName="Urine clarity determination " /> <statusCode code="completed" /> <effectiveTime value= "357611403176" /> <value unit="" xsi:type="PQ" value="CLEAR" /> <referenceRange> <observationRange> <text>NRG</text> </observationRange> </referenceRange> </observation > </component> <component> <observation moodCode="EVN" classCode="OBS"> <templateId root="06.08.840.1.163352.10.20.22.4.2" /> <id nullFlavor="NA" /> <code codeSystem="local" code="5803-2" displayName="Urine pH measurement by test strip" /> <statusCode code= "completed" /> <effectiveTime value="518084653321" /> <value unit="" xsi:type="PQ" value="6" /> <referenceRange> < observationRange> <text>5-9</text> </observationRange> </referenceRange> </observation> </component> < component> <observation moodCode="EVN" classCode="OBS"> < templateId root="06.08.840.1.511276.10..22.4.2" /> <id nullFlavor="NA " /> <code codeSystem="local" code="5811-5" displayName="Specific gravity of urine by test strip" /> <statusCode code="completed" /> <effectiveTime value="799125935435" /> <value unit="" xsi:type= "PQ" value="1.025" /> <interpretationCode codeSystem="local" code="*" / > <referenceRange> <observationRange> <text> 1.016-1.022</text> </observationRange> </referenceRange> </observation> </component> <component> <observation moodCode="EVN" classCode="OBS"> <templateId root= "06.08.840.1.212340.10.20.22.4.2" /> <id nullFlavor="NA" /> < code codeSystem="local" code="97371-6" displayName="Urine protein assay by test strip, semi-quantitative" /> <statusCode code="completed" /> < effectiveTime value="831570049986" /> <value unit="" xsi:type="PQ" value="2+" /> <interpretationCode codeSystem="local" code="*" /> <referenceRange> <observationRange> <text>NEGATIVE</ text> </observationRange> </referenceRange> </ observation> </component> <component> <observation moodCode= "EVN" classCode="OBS"> <templateId root="840.1.138763.10.20.22.4.2 " /> <id nullFlavor="NA" /> <code codeSystem="local" code= "04602-9" displayName="Urine glucose detection by automated test strip" /> <statusCode code="completed" /> <effectiveTime value=" " /> <value unit="" xsi:type="PQ" value="NEGATIVE" /> < referenceRange> <observationRange> <text>NEGATIVE</text > </observationRange> </referenceRange> </observation > </component> <component> <observation moodCode="EVN" classCode="OBS"> <templateId root="06.08.840.1.673166.10.20.22.4.2" /> <id nullFlavor="NA" /> <code codeSystem="local" code="41672-5 " displayName="Erythrocytes detection in urine sediment by light microscopy" /> <statusCode code="completed" /> <effectiveTime value= "179575458307" /> <value unit="" xsi:type="PQ" value="NEGATIVE" /> <referenceRange> <observationRange> <text>NEGATIVE </text> </observationRange> </referenceRange> </ observation> </component> <component> <observation moodCode= "EVN" classCode="OBS"> <templateId root="840.1.660659.10.20.22.4.2 " /> <id nullFlavor="NA" /> <code codeSystem="local" code= "81152-8" displayName="Urine ketones detection by automated test strip" /> <statusCode code="completed" /> <effectiveTime value=" " /> <value unit="" xsi:type="PQ" value="1+" /> < interpretationCode codeSystem="local" code="*" /> <referenceRange> <observationRange> <text>NEGATIVE</text> </ observationRange> </referenceRange> </observation> </ component> <component> <observation moodCode="EVN" classCode="OBS"> <templateId root="06.08.840.1.067917.10..4.2" /> <id nullFlavor="NA" /> <code codeSystem="local" code="5802-4" displayName= "Urine nitrite detection by test strip" /> <statusCode code="completed " /> <effectiveTime value="" /> <value unit="" xsi :type="PQ" value="NEGATIVE" /> <referenceRange> < observationRange> <text>NEGATIVE</text> </ observationRange> </referenceRange> </observation> </ component> <component> <observation moodCode="EVN" classCode="OBS"> <templateId root="06.08.840.1.325808.10.20.22.4.2" /> <id nullFlavor="NA" /> <code codeSystem="local" code="5770-3" displayName= "Urine total bilirubin detection by test strip" /> <statusCode code= "completed" /> <effectiveTime value="" /> <value unit="" xsi:type="PQ" value="NEGATIVE" /> <referenceRange> < observationRange> <text>NEGATIVE</text> </ observationRange> </referenceRange> </observation> </ component> <component> <observation moodCode="EVN" classCode="OBS"> <templateId root="216.840.1.013353.10..22.4.2" /> <id nullFlavor="NA" /> <code codeSystem="local" code="18297-4" displayName= "Urine urobilinogen measurement by automated test strip (mass/volume)" /> <statusCode code="completed" /> <effectiveTime value="730351632232 " /> <value unit="mg/dL" xsi:type="PQ" value="1" /> < referenceRange> <observationRange> <text>NORMAL</text> </observationRange> </referenceRange> </observation> </component> <component> <observation moodCode="EVN" classCode ="OBS"> <templateId root="16.840.1.338681.10.22.4.2" /> < id nullFlavor="NA" /> <code codeSystem="local" code="5799-2" displayName="Urine leukocyte esterase detection by dipstick" /> < statusCode code="completed" /> <effectiveTime value="446237166614" /> <value unit="" xsi:type="PQ" value="1+" /> < interpretationCode codeSystem="local" code="*" /> <referenceRange> <observationRange> <text>NEGATIVE</text> </ observationRange> </referenceRange> </observation> </ component> <component> <observation moodCode="EVN" classCode="OBS"> <templateId root="16.840.1.858963.10..22.4.2" /> <id nullFlavor="NA" /> <code codeSystem="local" code="21572-9" displayName= "Automated urine sediment erythrocyte count by microscopy (number/high power field)" /> <statusCode code="completed" /> <effectiveTime value="" /> <value unit="" xsi:type="PQ" value="NONE" /> <referenceRange> <observationRange> <text>NRG</ text> </observationRange> </referenceRange> </ observation> </component> <component> <observation moodCode= "EVN" classCode="OBS"> <templateId root="216.840.1.337103.10...4.2 " /> <id nullFlavor="NA" /> <code codeSystem="local" code= "5821-4" displayName="Automated urine sediment leukocyte count by microscopy ( number/high power field)" /> <statusCode code="completed" /> < effectiveTime value="" /> <value unit="" xsi:type="PQ" value="RARE" /> <referenceRange> <observationRange> <text>NRG</text> </observationRange> </referenceRange > </observation> </component> <component> <observation moodCode="EVN" classCode="OBS"> <templateId root= "16.840.1.019070.10...4.2" /> <id nullFlavor="NA" /> < code codeSystem="local" code="16090-4" displayName="Bacteria detection in urine sediment by light microscopy" /> <statusCode code="completed" /> <effectiveTime value="" /> <value unit="" xsi:type="PQ " value="NEGATIVE" /> <referenceRange> <observationRange> <text>NRG</text> </observationRange> </ referenceRange> </observation> </component> <component> <observation moodCode="EVN" classCode="OBS"> <templateId root= "216.840.1.291152.10..4.2" /> <id nullFlavor="NA" /> < code codeSystem="local" code="29451-2" displayName="Squamous epithelial cells detection in urine sediment by light microscopy" /> <statusCode code= "completed" /> <effectiveTime value="" /> <value unit="" xsi:type="PQ" value="5-10" /> <referenceRange> < observationRange> <text>NRG</text> </observationRange> </referenceRange> </observation> </component> < component> <observation moodCode="EVN" classCode="OBS"> < templateId root="2.16.840.1.950090.10..4.2" /> <id nullFlavor="NA " /> <code codeSystem="local" code="50536-2" displayName="Crystals detection in urine sediment by light microscopy" /> <statusCode code= "completed" /> <effectiveTime value="" /> <value unit="" xsi:type="PQ" value="NONE" /> <referenceRange> < observationRange> <text>NRG</text> </observationRange> </referenceRange> </observation> </component> < component> <observation moodCode="EVN" classCode="OBS"> < templateId root="2.16.840.1.248976.10..4.2" /> <id nullFlavor="NA " /> <code codeSystem="local" code="33747-6" displayName="Casts detection in urine sediment by light microscopy" /> <statusCode code= "completed" /> <effectiveTime value="" /> <value unit="" xsi:type="PQ" value="NONE" /> <referenceRange> < observationRange> <text>NRG</text> </observationRange> </referenceRange> </observation> </component> < component> <observation moodCode="EVN" classCode="OBS"> < templateId root="216.840.1.425095.10.20.22.4.2" /> <id nullFlavor="NA " /> <code codeSystem="local" code="8247-9" displayName="Mucus detection in urine sediment by light microscopy" /> <statusCode code= "completed" /> <effectiveTime value="105928120594" /> <value unit="" xsi:type="PQ" value="LARGE" /> <interpretationCode codeSystem= "local" code="*" /> <referenceRange> <observationRange> <text>NRG</text> </observationRange> </ referenceRange> </observation> </component> <component> <observation moodCode="EVN" classCode="OBS"> <templateId root= "216.840.1.198461.10..22.4.2" /> <id nullFlavor="NA" /> < code codeSystem="local" code="52147-7" displayName="Complete urinalysis with reflex to culture" /> <statusCode code="completed" /> < effectiveTime value="150276572698" /> <value unit="" xsi:type="PQ" value="NO" /> <referenceRange> <observationRange> <text>NRG</text> </observationRange> </referenceRange> </observation> </component> </organizer> </entry> <entry> < organizer moodCode="EVN" classCode="BATTERY"> <templateId root= "2.16.840.1.206803.10.20.22.4.1" /> <id nullFlavor="NA" /> <code codeSystem="local" code="06910-7" displayName="Complete blood count (CBC) with automated white blood cell (WBC) differential" /> <statusCode code= "completed" /> <component> <observation moodCode="EVN" classCode= "OBS"> <templateId root="216.840.1.918464.10.20.22.4.2" /> < id nullFlavor="NA" /> <code codeSystem="local" code="6690-2" displayName="Blood leukocytes automated count (number/volume)" /> < statusCode code="completed" /> <effectiveTime value="803344397381" /> <value unit="10*3/uL" xsi:type="PQ" value="6.7" /> < referenceRange> <observationRange> <text>4.3-11.0</text > </observationRange> </referenceRange> </observation > </component> <component> <observation moodCode="EVN" classCode="OBS"> <templateId root="216.840.1.230004.10.22.4.2" /> <id nullFlavor="NA" /> <code codeSystem="local" code="789-8" displayName="Blood erythrocytes automated count (number/volume)" /> < statusCode code="completed" /> <effectiveTime value="979414145912" /> <value unit="10*6/uL" xsi:type="PQ" value="4.23" /> < interpretationCode codeSystem="local" code="" /> <referenceRange> <observationRange> <text>4.35-5.85</text> </ observationRange> </referenceRange> </observation> </ component> <component> <observation moodCode="EVN" classCode="OBS"> <templateId root="216.840.1.020062.10.20.22.4.2" /> <id nullFlavor="NA" /> <code codeSystem="local" code="34220-0" displayName= "Venous blood hemoglobin measurement (mass/volume)" /> <statusCode code ="completed" /> <effectiveTime value="947219824518" /> <value unit="g/dL" xsi:type="PQ" value="13.8" /> <referenceRange> < observationRange> <text>11.5-16.0</text> </ observationRange> </referenceRange> </observation> </ component> <component> <observation moodCode="EVN" classCode="OBS"> <templateId root="2.16.840.1.329131.10.20.22.4.2" /> <id nullFlavor="NA" /> <code codeSystem="local" code="17328-6" displayName= "Blood hematocrit (volume fraction)" /> <statusCode code="completed" / > <effectiveTime value="770902066102" /> <value unit="%" xsi:type="PQ" value="41" /> <referenceRange> < observationRange> <text>35-52</text> </observationRange > </referenceRange> </observation> </component> < component> <observation moodCode="EVN" classCode="OBS"> < templateId root="216.840.1.904759.10.22.4.2" /> <id nullFlavor="NA " /> <code codeSystem="local" code="787-2" displayName="Automated erythrocyte mean corpuscular volume" /> <statusCode code="completed" / > <effectiveTime value="724815818517" /> <value unit="[foz_us] " xsi:type="PQ" value="97" /> <referenceRange> < observationRange> <text>80-99</text> </observationRange > </referenceRange> </observation> </component> < component> <observation moodCode="EVN" classCode="OBS"> < templateId root="2.16.840.1.438197.10..4.2" /> <id nullFlavor="NA " /> <code codeSystem="local" code="785-6" displayName="Automated erythrocyte mean corpuscular hemoglobin (mass per erythrocyte)" /> < statusCode code="completed" /> <effectiveTime value="927051751895" /> <value unit="pg" xsi:type="PQ" value="33" /> <referenceRange> <observationRange> <text>25-34</text> </ observationRange> </referenceRange> </observation> </ component> <component> <observation moodCode="EVN" classCode="OBS"> <templateId root="2.16.840.1.304447.10..4.2" /> <id nullFlavor="NA" /> <code codeSystem="local" code="786-4" displayName= "Automated erythrocyte mean corpuscular hemoglobin concentration measurement ( mass/volume)" /> <statusCode code="completed" /> < effectiveTime value="976395726763" /> <value unit="g/dL" xsi:type="PQ" value="34" /> <referenceRange> <observationRange> <text>32-36</text> </observationRange> </referenceRange > </observation> </component> <component> <observation moodCode="EVN" classCode="OBS"> <templateId root= "2.16.840.1.539230.10..4.2" /> <id nullFlavor="NA" /> < code codeSystem="local" code="788-0" displayName="Automated erythrocyte distribution width ratio" /> <statusCode code="completed" /> < effectiveTime value="371863301157" /> <value unit="%" xsi:type="PQ " value="12.7" /> <referenceRange> <observationRange> <text>10.0-14.5</text> </observationRange> </ referenceRange> </observation> </component> <component> <observation moodCode="EVN" classCode="OBS"> <templateId root= "2.16.840.1.158120.10.20.22.4.2" /> <id nullFlavor="NA" /> < code codeSystem="local" code="777-3" displayName="Automated blood platelet count (count/volume)" /> <statusCode code="completed" /> < effectiveTime value="467657319951" /> <value unit="10*3/uL" xsi:type= "PQ" value="312" /> <referenceRange> <observationRange> <text>130-400</text> </observationRange> </ referenceRange> </observation> </component> <component> <observation moodCode="EVN" classCode="OBS"> <templateId root= "2.16.840.1.303380.1022.4.2" /> <id nullFlavor="NA" /> < code codeSystem="local" code="33852-3" displayName="Automated blood platelet mean volume measurement" /> <statusCode code="completed" /> < effectiveTime value="275427190118" /> <value unit="[foz_us]" xsi:type= "PQ" value="8.3" /> <referenceRange> <observationRange> <text>7.4-10.4</text> </observationRange> </ referenceRange> </observation> </component> <component> <observation moodCode="EVN" classCode="OBS"> <templateId root= "2.16.840.1.793566.10.20.22.4.2" /> <id nullFlavor="NA" /> < code codeSystem="local" code="770-8" displayName="Automated blood neutrophils/ 100 leukocytes" /> <statusCode code="completed" /> < effectiveTime value="377206011264" /> <value unit="%" xsi:type="PQ " value="54" /> <referenceRange> <observationRange> <text>42-75</text> </observationRange> </ referenceRange> </observation> </component> <component> <observation moodCode="EVN" classCode="OBS"> <templateId root= "2.16.840.1.037907.10.20.22.4.2" /> <id nullFlavor="NA" /> < code codeSystem="local" code="736-9" displayName="Automated blood lymphocytes/ 100 leukocytes" /> <statusCode code="completed" /> < effectiveTime value="307561146007" /> <value unit="%" xsi:type="PQ " value="38" /> <referenceRange> <observationRange> <text>12-44</text> </observationRange> </ referenceRange> </observation> </component> <component> <observation moodCode="EVN" classCode="OBS"> <templateId root= "216.840.1.982071.10.20.22.4.2" /> <id nullFlavor="NA" /> < code codeSystem="local" code="80933-5" displayName="Blood monocytes/100 leukocytes" /> <statusCode code="completed" /> <effectiveTime value="464629484769" /> <value unit="%" xsi:type="PQ" value="8" /> <referenceRange> <observationRange> <text>0-12 </text> </observationRange> </referenceRange> </ observation> </component> <component> <observation moodCode= "EVN" classCode="OBS"> <templateId root="2.16.840.1.144129.10.20.22.4.2 " /> <id nullFlavor="NA" /> <code codeSystem="local" code="713 -8" displayName="Automated blood eosinophils/100 leukocytes" /> < statusCode code="completed" /> <effectiveTime value="191495782085" /> <value unit="%" xsi:type="PQ" value="0" /> <referenceRange > <observationRange> <text>0-10</text> </ observationRange> </referenceRange> </observation> </ component> <component> <observation moodCode="EVN" classCode="OBS"> <templateId root="2.16.840.1.551768.10.20.22.4.2" /> <id nullFlavor="NA" /> <code codeSystem="local" code="706-2" displayName= "Automated blood basophils/100 leukocytes" /> <statusCode code= "completed" /> <effectiveTime value="703044033914" /> <value unit="%" xsi:type="PQ" value="0" /> <referenceRange> < observationRange> <text>0-10</text> </observationRange> </referenceRange> </observation> </component> < component> <observation moodCode="EVN" classCode="OBS"> < templateId root="2.16.840.1.087072.10.20.22.4.2" /> <id nullFlavor="NA " /> <code codeSystem="local" code="751-8" displayName="Blood neutrophils automated count (number/volume)" /> <statusCode code= "completed" /> <effectiveTime value="449455747332" /> <value unit="10*3" xsi:type="PQ" value="3.6" /> <referenceRange> < observationRange> <text>1.8-7.8</text> </ observationRange> </referenceRange> </observation> </ component> <component> <observation moodCode="EVN" classCode="OBS"> <templateId root="216.840.1.415657.10.20.22.4.2" /> <id nullFlavor="NA" /> <code codeSystem="local" code="731-0" displayName= "Blood lymphocytes automated count (number/volume)" /> <statusCode code ="completed" /> <effectiveTime value="" /> <value unit="10*3" xsi:type="PQ" value="2.5" /> <referenceRange> < observationRange> <text>1.0-4.0</text> </ observationRange> </referenceRange> </observation> </ component> <component> <observation moodCode="EVN" classCode="OBS"> <templateId root="16.840.1.637681..22.4.2" /> <id nullFlavor="NA" /> <code codeSystem="local" code="742-7" displayName= "Blood monocytes automated count (number/volume)" /> <statusCode code= "completed" /> <effectiveTime value="" /> <value unit="10*3" xsi:type="PQ" value="0.6" /> <referenceRange> < observationRange> <text>0.0-1.0</text> </ observationRange> </referenceRange> </observation> </ component> <component> <observation moodCode="EVN" classCode="OBS"> <templateId root="16.840.1.174338.10.20.22.4.2" /> <id nullFlavor="NA" /> <code codeSystem="local" code="711-2" displayName= "Automated eosinophil count" /> <statusCode code="completed" /> <effectiveTime value="" /> <value unit="10*3/uL" xsi: type="PQ" value="0.0" /> <referenceRange> <observationRange > <text>0.0-0.3</text> </observationRange> </ referenceRange> </observation> </component> <component> <observation moodCode="EVN" classCode="OBS"> <templateId root= "216.840.1.682743.10.20.22.4.2" /> <id nullFlavor="NA" /> < code codeSystem="local" code="704-7" displayName="Automated blood basophil count (count/volume)" /> <statusCode code="completed" /> < effectiveTime value="881319675747" /> <value unit="10*3/uL" xsi:type= "PQ" value="0.0" /> <referenceRange> <observationRange> <text>0.0-0.1</text> </observationRange> </ referenceRange> </observation> </component> </organizer> </entry > <entry> <organizer moodCode="EVN" classCode="BATTERY"> <templateId root="16.840.1.402540.10..22.4.1" /> <id nullFlavor="NA" /> <code codeSystem="local" code="2117-11" displayName="Serum or plasma choriogonadotropin ( test) detection" /> <statusCode code= "completed" /> <component> <observation moodCode="EVN" classCode= "OBS"> <templateId root="16.840.1.434083.10..22.4.2" /> < id nullFlavor="NA" /> <code codeSystem="local" code="2117-11" displayName="Serum or plasma choriogonadotropin ( test) detection" /> <statusCode code="completed" /> <effectiveTime value= "217463579027" /> <value unit="" xsi:type="PQ" value="POSITIVE" /> <referenceRange> <observationRange> <text>NEGATIVE </text> </observationRange> </referenceRange> </ observation> </component> </organizer> </entry> <entry> <organizer moodCode="EVN" classCode="BATTERY"> <templateId root= "216.840.1.591202.10.20.22.4.1" /> <id nullFlavor="NA" /> <code codeSystem="local" code="18537-1" displayName="Comprehensive metabolic panel" / > <statusCode code="completed" /> <component> <observation moodCode="EVN" classCode="OBS"> <templateId root= "216.840.1.771507.10.20.22.4.2" /> <id nullFlavor="NA" /> < code codeSystem="local" code="2951-2" displayName="Serum or plasma sodium measurement (moles/volume)" /> <statusCode code="completed" /> <effectiveTime value="489395389868" /> <value unit="mmol/L" xsi:type= "PQ" value="138" /> <referenceRange> <observationRange> <text>135-145</text> </observationRange> </ referenceRange> </observation> </component> <component> <observation moodCode="EVN" classCode="OBS"> <templateId root= "16.840.1.568626.10.20.22.4.2" /> <id nullFlavor="NA" /> < code codeSystem="local" code="2823-3" displayName="Serum or plasma potassium measurement (moles/volume)" /> <statusCode code="completed" /> <effectiveTime value="395041325517" /> <value unit="mmol/L" xsi:type= "PQ" value="3.3" /> <interpretationCode codeSystem="local" code="" / > <referenceRange> <observationRange> <text>3.6 -5.0</text> </observationRange> </referenceRange> </ observation> </component> <component> <observation moodCode= "EVN" classCode="OBS"> <templateId root="16.840.1.121471.10.20.22.4.2 " /> <id nullFlavor="NA" /> <code codeSystem="local" code= "" displayName="Serum or plasma chloride measurement (moles/volume)" /> <statusCode code="completed" /> <effectiveTime value= "130712244156" /> <value unit="mmol/L" xsi:type="PQ" value="105" /> <referenceRange> <observationRange> <text>98-107< /text> </observationRange> </referenceRange> </ observation> </component> <component> <observation moodCode= "EVN" classCode="OBS"> <templateId root="06.08.840.1.712109.10.20.22.4.2 " /> <id nullFlavor="NA" /> <code codeSystem="local" code= "2027-12" displayName="Carbon dioxide" /> <statusCode code="completed" / > <effectiveTime value="999195589734" /> <value unit="mmol/L" xsi:type="PQ" value="21" /> <referenceRange> < observationRange> <text>21-32</text> </observationRange > </referenceRange> </observation> </component> < component> <observation moodCode="EVN" classCode="OBS"> < templateId root="06.08.840.1.103995.10.20.22.4.2" /> <id nullFlavor="NA " /> <code codeSystem="local" code="31909-1" displayName="Serum or plasma anion gap determination (moles/volume)" /> <statusCode code= "completed" /> <effectiveTime value="948101529506" /> <value unit="mmol/L" xsi:type="PQ" value="12" /> <referenceRange> < observationRange> <text>5-14</text> </observationRange> </referenceRange> </observation> </component> < component> <observation moodCode="EVN" classCode="OBS"> < templateId root="2.16.840.1.535158.10.20.22.4.2" /> <id nullFlavor="NA " /> <code codeSystem="local" code="3094-0" displayName="Serum or plasma urea nitrogen measurement (mass/volume)" /> <statusCode code= "completed" /> <effectiveTime value="064106936449" /> <value unit="mg/dL" xsi:type="PQ" value="7" /> <referenceRange> < observationRange> <text>7-18</text> </observationRange> </referenceRange> </observation> </component> < component> <observation moodCode="EVN" classCode="OBS"> < templateId root="2.16.840.1.721407.10.20.22.4.2" /> <id nullFlavor="NA " /> <code codeSystem="local" code="2160-0" displayName="Serum or plasma creatinine measurement (mass/volume)" /> <statusCode code= "completed" /> <effectiveTime value="852979733914" /> <value unit="mg/dL" xsi:type="PQ" value="0.79" /> <referenceRange> <observationRange> <text>0.60-1.30</text> </ observationRange> </referenceRange> </observation> </ component> <component> <observation moodCode="EVN" classCode="OBS"> <templateId root="216.840.1.037769.10.20.22.4.2" /> <id nullFlavor="NA" /> <code codeSystem="local" code="3097-3" displayName= "Serum or plasma urea nitrogen/creatinine mass ratio" /> <statusCode code="completed" /> <effectiveTime value="221336980794" /> < value unit="" xsi:type="PQ" value="9" /> <referenceRange> < observationRange> <text>NRG</text> </observationRange> </referenceRange> </observation> </component> < component> <observation moodCode="EVN" classCode="OBS"> < templateId root="216.840.1.542275.10..22.4.2" /> <id nullFlavor="NA " /> <code codeSystem="local" code="30438-6" displayName="Serum or plasma creatinine measurement with calculation of estimated glomerular filtration rate" /> <statusCode code="completed" /> < effectiveTime value="891211179258" /> <value unit="" xsi:type="PQ" value=">" /> <referenceRange> <observationRange> <text>NRG</text> </observationRange> </referenceRange > </observation> </component> <component> <observation moodCode="EVN" classCode="OBS"> <templateId root= "16.840.1.660736.10.20.22.4.2" /> <id nullFlavor="NA" /> < code codeSystem="local" code="2345-7" displayName="Serum or plasma glucose measurement (mass/volume)" /> <statusCode code="completed" /> <effectiveTime value="253274084908" /> <value unit="mg/dL" xsi:type="PQ " value="93" /> <referenceRange> <observationRange> <text>70-105</text> </observationRange> </ referenceRange> </observation> </component> <component> <observation moodCode="EVN" classCode="OBS"> <templateId root= "2.16.840.1.220001.10.20.22.4.2" /> <id nullFlavor="NA" /> < code codeSystem="local" code="10057-8" displayName="Serum or plasma calcium measurement (mass/volume)" /> <statusCode code="completed" /> <effectiveTime value="122112619144" /> <value unit="mg/dL" xsi:type="PQ " value="9.9" /> <referenceRange> <observationRange> <text>8.5-10.1</text> </observationRange> </ referenceRange> </observation> </component> <component> <observation moodCode="EVN" classCode="OBS"> <templateId root= "16.840.1.346599.10...4.2" /> <id nullFlavor="NA" /> < code codeSystem="local" code="1975" displayName="Serum or plasma total bilirubin measurement (mass/volume)" /> <statusCode code="completed" / > <effectiveTime value="032124883861" /> <value unit="mg/dL" xsi:type="PQ" value="0.4" /> <referenceRange> < observationRange> <text>0.1-1.0</text> </ observationRange> </referenceRange> </observation> </ component> <component> <observation moodCode="EVN" classCode="OBS"> <templateId root="16.840.1.971911.10.20.22.4.2" /> <id nullFlavor="NA" /> <code codeSystem="local" code="6768-6" displayName= "Serum or plasma alkaline phosphatase measurement (enzymatic activity/volume)" / > <statusCode code="completed" /> <effectiveTime value= "627441105608" /> <value unit="U/L" xsi:type="PQ" value="66" /> <referenceRange> <observationRange> <text>40-136</ text> </observationRange> </referenceRange> </ observation> </component> <component> <observation moodCode= "EVN" classCode="OBS"> <templateId root="2.16.840.1.397684.10.20.22.4.2 " /> <id nullFlavor="NA" /> <code codeSystem="local" code= "1919-11" displayName="Serum or plasma aspartate aminotransferase measurement ( enzymatic activity/volume)" /> <statusCode code="completed" /> <effectiveTime value="741788569801" /> <value unit="U/L" xsi:type="PQ " value="13" /> <referenceRange> <observationRange> <text>5-34</text> </observationRange> </referenceRange > </observation> </component> <component> <observation moodCode="EVN" classCode="OBS"> <templateId root= "2.16.840.1.496821.10.20.22.4.2" /> <id nullFlavor="NA" /> < code codeSystem="local" code="1741-09" displayName="Serum or plasma alanine aminotransferase measurement (enzymatic activity/volume)" /> < statusCode code="completed" /> <effectiveTime value="419141806805" /> <value unit="U/L" xsi:type="PQ" value="14" /> <referenceRange > <observationRange> <text>0-55</text> </ observationRange> </referenceRange> </observation> </ component> <component> <observation moodCode="EVN" classCode="OBS"> <templateId root="06.08.840.1.080124.10.20.22.4.2" /> <id nullFlavor="NA" /> <code codeSystem="local" code="2885-2" displayName= "Serum or plasma protein measurement (mass/volume)" /> <statusCode code ="completed" /> <effectiveTime value="599923639506" /> <value unit="g/dL" xsi:type="PQ" value="8.2" /> <referenceRange> < observationRange> <text>6.4-8.2</text> </ observationRange> </referenceRange> </observation> </ component> <component> <observation moodCode="EVN" classCode="OBS"> <templateId root="216.840.1.140625.10..22.4.2" /> <id nullFlavor="NA" /> <code codeSystem="local" code="1751-7" displayName= "Serum or plasma albumin measurement (mass/volume)" /> <statusCode code ="completed" /> <effectiveTime value="616312962559" /> <value unit="g/dL" xsi:type="PQ" value="4.7" /> <interpretationCode codeSystem ="local" code="" /> <referenceRange> <observationRange> <text>3.2-4.5</text> </observationRange> </ referenceRange> </observation> </component> </organizer> </entry > <entry> <organizer moodCode="EVN" classCode="BATTERY"> <templateId root="2.16.840.1.884961.10.20.22.4.1" /> <id nullFlavor="NA" /> <code codeSystem="local" code="45239-4" displayName="Serum or plasma choriogonadotropin measurement (units/volume)" /> <statusCode code= "completed" /> <component> <observation moodCode="EVN" classCode= "OBS"> <templateId root="2.16.840.1.398972.10.20.22.4.2" /> < id nullFlavor="NA" /> <code codeSystem="local" code="97952-4" displayName="Serum or plasma choriogonadotropin measurement (units/volume)" /> <statusCode code="completed" /> <effectiveTime value= "548600710336" /> <value unit="m[iU]/mL" xsi:type="PQ" value="53203" / > <interpretationCode codeSystem="local" code="" /> < referenceRange> <observationRange> <text><5</text> </observationRange> </referenceRange> </observation> </component> </organizer> </entry> <entry> <organizer moodCode="EVN " classCode="BATTERY"> <templateId root="2.16.840.1.049943.10.20.22.4.1" / > <id nullFlavor="NA" /> <code codeSystem="local" code="80598-0" displayName="Complete blood count (CBC) with automated white blood cell (WBC) differential" /> <statusCode code="completed" /> <component> < observation moodCode="EVN" classCode="OBS"> <templateId root= "2.16.840.1.578531.10.20.22.4.2" /> <id nullFlavor="NA" /> < code codeSystem="local" code="6690-2" displayName="Blood leukocytes automated count (number/volume)" /> <statusCode code="completed" /> < effectiveTime value="302709131147" /> <value unit="10*3/uL" xsi:type= "PQ" value="6.5" /> <referenceRange> <observationRange> <text>4.3-11.0</text> </observationRange> </ referenceRange> </observation> </component> <component> <observation moodCode="EVN" classCode="OBS"> <templateId root= "216.840.1.179434.10.20.22.4.2" /> <id nullFlavor="NA" /> < code codeSystem="local" code="789-8" displayName="Blood erythrocytes automated count (number/volume)" /> <statusCode code="completed" /> < effectiveTime value="" /> <value unit="10*6/uL" xsi:type= "PQ" value="3.68" /> <interpretationCode codeSystem="local" code="" / > <referenceRange> <observationRange> <text> 4.35-5.85</text> </observationRange> </referenceRange> </observation> </component> <component> <observation moodCode="EVN" classCode="OBS"> <templateId root= "06.08.840.1.899761.10.2022.4.2" /> <id nullFlavor="NA" /> < code codeSystem="local" code="29798-9" displayName="Venous blood hemoglobin measurement (mass/volume)" /> <statusCode code="completed" /> <effectiveTime value="700603612664" /> <value unit="g/dL" xsi:type="PQ " value="12.0" /> <referenceRange> <observationRange> <text>11.5-16.0</text> </observationRange> </ referenceRange> </observation> </component> <component> <observation moodCode="EVN" classCode="OBS"> <templateId root= "16.840.1.537188.10.20.22.4.2" /> <id nullFlavor="NA" /> < code codeSystem="local" code="03885-6" displayName="Blood hematocrit (volume fraction)" /> <statusCode code="completed" /> <effectiveTime value="" /> <value unit="%" xsi:type="PQ" value="36" / > <referenceRange> <observationRange> <text>35- 52</text> </observationRange> </referenceRange> </ observation> </component> <component> <observation moodCode= "EVN" classCode="OBS"> <templateId root="2.16.840.1.377728.10.20.22.4.2 " /> <id nullFlavor="NA" /> <code codeSystem="local" code="787 -2" displayName="Automated erythrocyte mean corpuscular volume" /> < statusCode code="completed" /> <effectiveTime value="" /> <value unit="[foz_us]" xsi:type="PQ" value="98" /> < referenceRange> <observationRange> <text>80-99</text> </observationRange> </referenceRange> </observation> </component> <component> <observation moodCode="EVN" classCode= "OBS"> <templateId root="2.16.840.1.527989.10.20.22.4.2" /> < id nullFlavor="NA" /> <code codeSystem="local" code="785-6" displayName ="Automated erythrocyte mean corpuscular hemoglobin (mass per erythrocyte)" /> <statusCode code="completed" /> <effectiveTime value= "" /> <value unit="pg" xsi:type="PQ" value="33" /> <referenceRange> <observationRange> <text>25-34</text > </observationRange> </referenceRange> </observation > </component> <component> <observation moodCode="EVN" classCode="OBS"> <templateId root="216.840.1.967642.10.20.22.4.2" /> <id nullFlavor="NA" /> <code codeSystem="local" code="786-4" displayName="Automated erythrocyte mean corpuscular hemoglobin concentration measurement (mass/volume)" /> <statusCode code="completed" /> <effectiveTime value="073579148589" /> <value unit="g/dL" xsi:type="PQ " value="33" /> <referenceRange> <observationRange> <text>32-36</text> </observationRange> </ referenceRange> </observation> </component> <component> <observation moodCode="EVN" classCode="OBS"> <templateId root= "16.840.1.171932.10.20.22.4.2" /> <id nullFlavor="NA" /> < code codeSystem="local" code="788-0" displayName="Automated erythrocyte distribution width ratio" /> <statusCode code="completed" /> < effectiveTime value="" /> <value unit="%" xsi:type="PQ " value="12.7" /> <referenceRange> <observationRange> <text>10.0-14.5</text> </observationRange> </ referenceRange> </observation> </component> <component> <observation moodCode="EVN" classCode="OBS"> <templateId root= "06.08.840.1.953527.10.20.22.4.2" /> <id nullFlavor="NA" /> < code codeSystem="local" code="777-3" displayName="Automated blood platelet count (count/volume)" /> <statusCode code="completed" /> < effectiveTime value="967442585558" /> <value unit="10*3/uL" xsi:type= "PQ" value="271" /> <referenceRange> <observationRange> <text>130-400</text> </observationRange> </ referenceRange> </observation> </component> <component> <observation moodCode="EVN" classCode="OBS"> <templateId root= "216.840.1.214507.10.20.22.4.2" /> <id nullFlavor="NA" /> < code codeSystem="local" code="80272-8" displayName="Automated blood platelet mean volume measurement" /> <statusCode code="completed" /> < effectiveTime value="880038808635" /> <value unit="[[facility]]" xsi:type= "PQ" value="8.5" /> <referenceRange> <observationRange> <text>7.4-10.4</text> </observationRange> </ referenceRange> </observation> </component> <component> <observation moodCode="EVN" classCode="OBS"> <templateId root= "06.08.840.1.379920.10.20.22.4.2" /> <id nullFlavor="NA" /> < code codeSystem="local" code="770-8" displayName="Automated blood neutrophils/ 100 leukocytes" /> <statusCode code="completed" /> < effectiveTime value="088459289724" /> <value unit="%" xsi:type="PQ " value="49" /> <referenceRange> <observationRange> <text>42-75</text> </observationRange> </ referenceRange> </observation> </component> <component> <observation moodCode="EVN" classCode="OBS"> <templateId root= "06.08.840.1.222447.10.20.22.4.2" /> <id nullFlavor="NA" /> < code codeSystem="local" code="736-9" displayName="Automated blood lymphocytes/ 100 leukocytes" /> <statusCode code="completed" /> < effectiveTime value="462274889778" /> <value unit="%" xsi:type="PQ " value="42" /> <referenceRange> <observationRange> <text>12-44</text> </observationRange> </ referenceRange> </observation> </component> <component> <observation moodCode="EVN" classCode="OBS"> <templateId root= "2.16.840.1.722110.10.20.22.4.2" /> <id nullFlavor="NA" /> < code codeSystem="local" code="49238-6" displayName="Blood monocytes/100 leukocytes" /> <statusCode code="completed" /> <effectiveTime value="190623143791" /> <value unit="%" xsi:type="PQ" value="9" /> <referenceRange> <observationRange> <text>0-12 </text> </observationRange> </referenceRange> </ observation> </component> <component> <observation moodCode= "EVN" classCode="OBS"> <templateId root="2.16.840.1.654662.10.20.22.4.2 " /> <id nullFlavor="NA" /> <code codeSystem="local" code="713 -8" displayName="Automated blood eosinophils/100 leukocytes" /> < statusCode code="completed" /> <effectiveTime value="044432648410" /> <value unit="%" xsi:type="PQ" value="1" /> <referenceRange > <observationRange> <text>0-10</text> </ observationRange> </referenceRange> </observation> </ component> <component> <observation moodCode="EVN" classCode="OBS"> <templateId root="2.16.840.1.438322.22.4.2" /> <id nullFlavor="NA" /> <code codeSystem="local" code="706-2" displayName= "Automated blood basophils/100 leukocytes" /> <statusCode code= "completed" /> <effectiveTime value="" /> <value unit="%" xsi:type="PQ" value="0" /> <referenceRange> < observationRange> <text>0-10</text> </observationRange> </referenceRange> </observation> </component> < component> <observation moodCode="EVN" classCode="OBS"> < templateId root="216.840.1.609728.02.09.22.4.2" /> <id nullFlavor="NA " /> <code codeSystem="local" code="751-8" displayName="Blood neutrophils automated count (number/volume)" /> <statusCode code= "completed" /> <effectiveTime value="" /> <value unit="10*3" xsi:type="PQ" value="3.1" /> <referenceRange> < observationRange> <text>1.8-7.8</text> </ observationRange> </referenceRange> </observation> </ component> <component> <observation moodCode="EVN" classCode="OBS"> <templateId root="06.08.840.1.454257.22.4.2" /> <id nullFlavor="NA" /> <code codeSystem="local" code="731-0" displayName= "Blood lymphocytes automated count (number/volume)" /> <statusCode code ="completed" /> <effectiveTime value="162273737664" /> <value unit="10*3" xsi:type="PQ" value="2.7" /> <referenceRange> < observationRange> <text>1.0-4.0</text> </ observationRange> </referenceRange> </observation> </ component> <component> <observation moodCode="EVN" classCode="OBS"> <templateId root="216.840.1.450653.10.20.22.4.2" /> <id nullFlavor="NA" /> <code codeSystem="local" code="742-7" displayName= "Blood monocytes automated count (number/volume)" /> <statusCode code= "completed" /> <effectiveTime value="530060376898" /> <value unit="10*3" xsi:type="PQ" value="0.6" /> <referenceRange> < observationRange> <text>0.0-1.0</text> </ observationRange> </referenceRange> </observation> </ component> <component> <observation moodCode="EVN" classCode="OBS"> <templateId root="216.840.1.463756...4.2" /> <id nullFlavor="NA" /> <code codeSystem="local" code="711-2" displayName= "Automated eosinophil count" /> <statusCode code="completed" /> <effectiveTime value="700374916760" /> <value unit="10*3/uL" xsi: type="PQ" value="0.0" /> <referenceRange> <observationRange > <text>0.0-0.3</text> </observationRange> </ referenceRange> </observation> </component> <component> <observation moodCode="EVN" classCode="OBS"> <templateId root= "216.840.1.674748.10.20.22.4.2" /> <id nullFlavor="NA" /> < code codeSystem="local" code="704-7" displayName="Automated blood basophil count (count/volume)" /> <statusCode code="completed" /> < effectiveTime value="772279221115" /> <value unit="10*3/uL" xsi:type= "PQ" value="0.0" /> <referenceRange> <observationRange> <text>0.0-0.1</text> </observationRange> </ referenceRange> </observation> </component> </organizer> </entry > <entry> <organizer moodCode="EVN" classCode="BATTERY"> <templateId root="2.16.840.1.415535.10.20.22.4.1" /> <id nullFlavor="NA" /> <code codeSystem="local" code="19141-7" displayName="Comprehensive metabolic panel" / > <statusCode code="completed" /> <component> <observation moodCode="EVN" classCode="OBS"> <templateId root= "2.16.840.1.222592.10.20.22.4.2" /> <id nullFlavor="NA" /> < code codeSystem="local" code="2951-2" displayName="Serum or plasma sodium measurement (moles/volume)" /> <statusCode code="completed" /> <effectiveTime value="666693094728" /> <value unit="mmol/L" xsi:type= "PQ" value="139" /> <referenceRange> <observationRange> <text>135-145</text> </observationRange> </ referenceRange> </observation> </component> <component> <observation moodCode="EVN" classCode="OBS"> <templateId root= "2.16.840.1.258088.10.20.22.4.2" /> <id nullFlavor="NA" /> < code codeSystem="local" code="2823-3" displayName="Serum or plasma potassium measurement (moles/volume)" /> <statusCode code="completed" /> <effectiveTime value="280978160885" /> <value unit="mmol/L" xsi:type= "PQ" value="3.4" /> <interpretationCode codeSystem="local" code="" / > <referenceRange> <observationRange> <text>3.6 -5.0</text> </observationRange> </referenceRange> </ observation> </component> <component> <observation moodCode= "EVN" classCode="OBS"> <templateId root="2.16.840.1.589660.10.20.22.4.2 " /> <id nullFlavor="NA" /> <code codeSystem="local" code= "" displayName="Serum or plasma chloride measurement (moles/volume)" /> <statusCode code="completed" /> <effectiveTime value= "" /> <value unit="mmol/L" xsi:type="PQ" value="110" /> <interpretationCode codeSystem="local" code="" /> < referenceRange> <observationRange> <text>98-107</text> </observationRange> </referenceRange> </observation> </component> <component> <observation moodCode="EVN" classCode ="OBS"> <templateId root="2.16.840.1.170965.10..22.4.2" /> < id nullFlavor="NA" /> <code codeSystem="local" code="2027-12" displayName="Carbon dioxide" /> <statusCode code="completed" /> <effectiveTime value="" /> <value unit="mmol/L" xsi:type ="PQ" value="18" /> <interpretationCode codeSystem="local" code="" / > <referenceRange> <observationRange> <text>21- 32</text> </observationRange> </referenceRange> </ observation> </component> <component> <observation moodCode= "EVN" classCode="OBS"> <templateId root="2.16.840.1.109088.10.20.22.4.2 " /> <id nullFlavor="NA" /> <code codeSystem="local" code= "95326-8" displayName="Serum or plasma anion gap determination (moles/volume)" / > <statusCode code="completed" /> <effectiveTime value= "219336608418" /> <value unit="mmol/L" xsi:type="PQ" value="11" /> <referenceRange> <observationRange> <text>5-14</ text> </observationRange> </referenceRange> </ observation> </component> <component> <observation moodCode= "EVN" classCode="OBS"> <templateId root="2.16.840.1.998558.10..22.4.2 " /> <id nullFlavor="NA" /> <code codeSystem="local" code= "3094-0" displayName="Serum or plasma urea nitrogen measurement (mass/volume)" / > <statusCode code="completed" /> <effectiveTime value= "463461009729" /> <value unit="mg/dL" xsi:type="PQ" value="5" /> <interpretationCode codeSystem="local" code="" /> <referenceRange > <observationRange> <text>7-18</text> </ observationRange> </referenceRange> </observation> </ component> <component> <observation moodCode="EVN" classCode="OBS"> <templateId root="2.16.840.1.276317.10..22.4.2" /> <id nullFlavor="NA" /> <code codeSystem="local" code="2160-0" displayName= "Serum or plasma creatinine measurement (mass/volume)" /> <statusCode code="completed" /> <effectiveTime value="" /> < value unit="mg/dL" xsi:type="PQ" value="0.65" /> <referenceRange> <observationRange> <text>0.60-1.30</text> </ observationRange> </referenceRange> </observation> </ component> <component> <observation moodCode="EVN" classCode="OBS"> <templateId root="216.840.1.653833.10..22.4.2" /> <id nullFlavor="NA" /> <code codeSystem="local" code="3097-3" displayName= "Serum or plasma urea nitrogen/creatinine mass ratio" /> <statusCode code="completed" /> <effectiveTime value="" /> < value unit="" xsi:type="PQ" value="8" /> <referenceRange> < observationRange> <text>NRG</text> </observationRange> </referenceRange> </observation> </component> < component> <observation moodCode="EVN" classCode="OBS"> < templateId root="216.840.1.605071.10..22.4.2" /> <id nullFlavor="NA " /> <code codeSystem="local" code="55401-1" displayName="Serum or plasma creatinine measurement with calculation of estimated glomerular filtration rate" /> <statusCode code="completed" /> < effectiveTime value="623187116156" /> <value unit="" xsi:type="PQ" value=">" /> <referenceRange> <observationRange> <text>NRG</text> </observationRange> </referenceRange > </observation> </component> <component> <observation moodCode="EVN" classCode="OBS"> <templateId root= "216.840.1.753280.10.20.22.4.2" /> <id nullFlavor="NA" /> < code codeSystem="local" code="2345-7" displayName="Serum or plasma glucose measurement (mass/volume)" /> <statusCode code="completed" /> <effectiveTime value="804820581414" /> <value unit="mg/dL" xsi:type="PQ " value="73" /> <referenceRange> <observationRange> <text>70-105</text> </observationRange> </ referenceRange> </observation> </component> <component> <observation moodCode="EVN" classCode="OBS"> <templateId root= "216.840.1.783540.10.22.4.2" /> <id nullFlavor="NA" /> < code codeSystem="local" code="99373-9" displayName="Serum or plasma calcium measurement (mass/volume)" /> <statusCode code="completed" /> <effectiveTime value="908320269893" /> <value unit="mg/dL" xsi:type="PQ " value="8.3" /> <interpretationCode codeSystem="local" code="" /> <referenceRange> <observationRange> <text>8.5- 10.1</text> </observationRange> </referenceRange> </ observation> </component> <component> <observation moodCode= "EVN" classCode="OBS"> <templateId root="16.840.1.083399.10.20.22.4.2 " /> <id nullFlavor="NA" /> <code codeSystem="local" code= "1974-05" displayName="Serum or plasma total bilirubin measurement (mass/volume) " /> <statusCode code="completed" /> <effectiveTime value= "978264595270" /> <value unit="mg/dL" xsi:type="PQ" value="0.4" /> <referenceRange> <observationRange> <text>0.1-1.0< /text> </observationRange> </referenceRange> </ observation> </component> <component> <observation moodCode= "EVN" classCode="OBS"> <templateId root="216.840.1.321433.10.20.22.4.2 " /> <id nullFlavor="NA" /> <code codeSystem="local" code= "6768-" displayName="Serum or plasma alkaline phosphatase measurement ( enzymatic activity/volume)" /> <statusCode code="completed" /> <effectiveTime value="344471546027" /> <value unit="U/L" xsi:type="PQ " value="52" /> <referenceRange> <observationRange> <text>40-136</text> </observationRange> </ referenceRange> </observation> </component> <component> <observation moodCode="EVN" classCode="OBS"> <templateId root= "16.840.1.725511.10...4.2" /> <id nullFlavor="NA" /> < code codeSystem="local" code="192" displayName="Serum or plasma aspartate aminotransferase measurement (enzymatic activity/volume)" /> < statusCode code="completed" /> <effectiveTime value="130171492963" /> <value unit="U/L" xsi:type="PQ" value="12" /> <referenceRange > <observationRange> <text>5-34</text> </ observationRange> </referenceRange> </observation> </ component> <component> <observation moodCode="EVN" classCode="OBS"> <templateId root="216.840.1.964328.10.20.22.4.2" /> <id nullFlavor="NA" /> <code codeSystem="local" code="1742-" displayName= "Serum or plasma alanine aminotransferase measurement (enzymatic activity/volume )" /> <statusCode code="completed" /> <effectiveTime value= "757817062790" /> <value unit="U/L" xsi:type="PQ" value="10" /> <referenceRange> <observationRange> <text>0-55</text > </observationRange> </referenceRange> </observation > </component> <component> <observation moodCode="EVN" classCode="OBS"> <templateId root="2.16.840.1.380896.10.20.22.4.2" /> <id nullFlavor="NA" /> <code codeSystem="local" code="2885-2" displayName="Serum or plasma protein measurement (mass/volume)" /> < statusCode code="completed" /> <effectiveTime value="255811964608" /> <value unit="g/dL" xsi:type="PQ" value="6.5" /> < referenceRange> <observationRange> <text>6.4-8.2</text> </observationRange> </referenceRange> </observation > </component> <component> <observation moodCode="EVN" classCode="OBS"> <templateId root="2.16.840.1.431812.10.20.22.4.2" /> <id nullFlavor="NA" /> <code codeSystem="local" code="1751-7" displayName="Serum or plasma albumin measurement (mass/volume)" /> < statusCode code="completed" /> <effectiveTime value="304110607028" /> <value unit="g/dL" xsi:type="PQ" value="3.8" /> < referenceRange> <observationRange> <text>3.2-4.5</text> </observationRange> </referenceRange> </observation > </component> <component> <observation moodCode="EVN" classCode="OBS"> <templateId root="2.16.840.1.483865.10.20.22.4.2" /> <id nullFlavor="NA" /> <code codeSystem="local" code= "CALCIUMCORR" displayName="CALCIUM CORRECTED" /> <statusCode code= "completed" /> <effectiveTime value="728917154661" /> <value unit="mg/dL" xsi:type="PQ" value="8.5" /> <referenceRange> < observationRange> <text>8.5-10.1</text> </ observationRange> </referenceRange> </observation> </ component> </organizer> </entry> <entry> <organizer moodCode="EVN" classCode="BATTERY"> <templateId root="2.16.840.1.617187.10.20.22.4.1" /> <id nullFlavor="NA" /> <code codeSystem="local" code="87183-0" displayName="Complete blood count (CBC) with automated white blood cell (WBC) differential" /> <statusCode code="completed" /> <component> < observation moodCode="EVN" classCode="OBS"> <templateId root= "2.16.840.1.724821.10.20.22.4.2" /> <id nullFlavor="NA" /> < code codeSystem="local" code="6690-2" displayName="Blood leukocytes automated count (number/volume)" /> <statusCode code="completed" /> < effectiveTime value="840312500586" /> <value unit="10*3/uL" xsi:type= "PQ" value="5.7" /> <referenceRange> <observationRange> <text>4.3-11.0</text> </observationRange> </ referenceRange> </observation> </component> <component> <observation moodCode="EVN" classCode="OBS"> <templateId root= "2.16.840.1.787885.10.20.22.4.2" /> <id nullFlavor="NA" /> < code codeSystem="local" code="789-8" displayName="Blood erythrocytes automated count (number/volume)" /> <statusCode code="completed" /> < effectiveTime value="770249981971" /> <value unit="10*6/uL" xsi:type= "PQ" value="4.09" /> <interpretationCode codeSystem="local" code="" / > <referenceRange> <observationRange> <text> 4.35-5.85</text> </observationRange> </referenceRange> </observation> </component> <component> <observation moodCode="EVN" classCode="OBS"> <templateId root= "216.840.1.212939.10.22.4.2" /> <id nullFlavor="NA" /> < code codeSystem="local" code="35979-7" displayName="Venous blood hemoglobin measurement (mass/volume)" /> <statusCode code="completed" /> <effectiveTime value="426248028061" /> <value unit="g/dL" xsi:type="PQ " value="13.2" /> <referenceRange> <observationRange> <text>11.5-16.0</text> </observationRange> </ referenceRange> </observation> </component> <component> <observation moodCode="EVN" classCode="OBS"> <templateId root= "2.16.840.1.293154.10.20.22.4.2" /> <id nullFlavor="NA" /> < code codeSystem="local" code="53213-5" displayName="Blood hematocrit (volume fraction)" /> <statusCode code="completed" /> <effectiveTime value="762347182990" /> <value unit="%" xsi:type="PQ" value="39" / > <referenceRange> <observationRange> <text>35- 52</text> </observationRange> </referenceRange> </ observation> </component> <component> <observation moodCode= "EVN" classCode="OBS"> <templateId root="2.16.840.1.914605.10.22.4.2 " /> <id nullFlavor="NA" /> <code codeSystem="local" code="787 -2" displayName="Automated erythrocyte mean corpuscular volume" /> < statusCode code="completed" /> <effectiveTime value="[id number]" /> <value unit="[foz_us]" xsi:type="PQ" value="96" /> < referenceRange> <observationRange> <text>80-99</text> </observationRange> </referenceRange> </observation> </component> <component> <observation moodCode="EVN" classCode= "OBS"> <templateId root="216.840.1.892932.10..4.2" /> < id nullFlavor="NA" /> <code codeSystem="local" code="785-6" displayName ="Automated erythrocyte mean corpuscular hemoglobin (mass per erythrocyte)" /> <statusCode code="completed" /> <effectiveTime value= "[id number]" /> <value unit="pg" xsi:type="PQ" value="32" /> <referenceRange> <observationRange> <text>25-34</text > </observationRange> </referenceRange> </observation > </component> <component> <observation moodCode="EVN" classCode="OBS"> <templateId root="216.840.1.713765..22.4.2" /> <id nullFlavor="NA" /> <code codeSystem="local" code="786-4" displayName="Automated erythrocyte mean corpuscular hemoglobin concentration measurement (mass/volume)" /> <statusCode code="completed" /> <effectiveTime value="241300493199" /> <value unit="g/dL" xsi:type="PQ " value="34" /> <referenceRange> <observationRange> <text>32-36</text> </observationRange> </ referenceRange> </observation> </component> <component> <observation moodCode="EVN" classCode="OBS"> <templateId root= "2.16.840.1.473955...4.2" /> <id nullFlavor="NA" /> < code codeSystem="local" code="788-0" displayName="Automated erythrocyte distribution width ratio" /> <statusCode code="completed" /> < effectiveTime value="682890472017" /> <value unit="%" xsi:type="PQ " value="12.4" /> <referenceRange> <observationRange> <text>10.0-14.5</text> </observationRange> </ referenceRange> </observation> </component> <component> <observation moodCode="EVN" classCode="OBS"> <templateId root= "2.16.840.1.232774.02.09.22.4.2" /> <id nullFlavor="NA" /> < code codeSystem="local" code="777-3" displayName="Automated blood platelet count (count/volume)" /> <statusCode code="completed" /> < effectiveTime value="428033529262" /> <value unit="10*3/uL" xsi:type= "PQ" value="266" /> <referenceRange> <observationRange> <text>130-400</text> </observationRange> </ referenceRange> </observation> </component> <component> <observation moodCode="EVN" classCode="OBS"> <templateId root= "2.16.840.1.310079.10.2022.4.2" /> <id nullFlavor="NA" /> < code codeSystem="local" code="32729-2" displayName="Automated blood platelet mean volume measurement" /> <statusCode code="completed" /> < effectiveTime value="776776511184" /> <value unit="[[facility]]" xsi:type= "PQ" value="8.5" /> <referenceRange> <observationRange> <text>7.4-10.4</text> </observationRange> </ referenceRange> </observation> </component> <component> <observation moodCode="EVN" classCode="OBS"> <templateId root= "216.840.1.241192.10..4.2" /> <id nullFlavor="NA" /> < code codeSystem="local" code="770-8" displayName="Automated blood neutrophils/ 100 leukocytes" /> <statusCode code="completed" /> < effectiveTime value="938492362067" /> <value unit="%" xsi:type="PQ " value="61" /> <referenceRange> <observationRange> <text>42-75</text> </observationRange> </ referenceRange> </observation> </component> <component> <observation moodCode="EVN" classCode="OBS"> <templateId root= "2.16.840.1.134578.10.2022.4.2" /> <id nullFlavor="NA" /> < code codeSystem="local" code="736-9" displayName="Automated blood lymphocytes/ 100 leukocytes" /> <statusCode code="completed" /> < effectiveTime value="" /> <value unit="%" xsi:type="PQ " value="32" /> <referenceRange> <observationRange> <text>12-44</text> </observationRange> </ referenceRange> </observation> </component> <component> <observation moodCode="EVN" classCode="OBS"> <templateId root= "2.16.840.1.017000.10.20.22.4.2" /> <id nullFlavor="NA" /> < code codeSystem="local" code="71419-4" displayName="Blood monocytes/100 leukocytes" /> <statusCode code="completed" /> <effectiveTime value="" /> <value unit="%" xsi:type="PQ" value="7" /> <referenceRange> <observationRange> <text>0-12 </text> </observationRange> </referenceRange> </ observation> </component> <component> <observation moodCode= "EVN" classCode="OBS"> <templateId root="216.840.1.515968.10.20.22.4.2 " /> <id nullFlavor="NA" /> <code codeSystem="local" code="713 -8" displayName="Automated blood eosinophils/100 leukocytes" /> < statusCode code="completed" /> <effectiveTime value="" /> <value unit="%" xsi:type="PQ" value="1" /> <referenceRange > <observationRange> <text>0-10</text> </ observationRange> </referenceRange> </observation> </ component> <component> <observation moodCode="EVN" classCode="OBS"> <templateId root="2.16.840.1.332367.10.20.22.4.2" /> <id nullFlavor="NA" /> <code codeSystem="local" code="706-2" displayName= "Automated blood basophils/100 leukocytes" /> <statusCode code= "completed" /> <effectiveTime value="" /> <value unit="%" xsi:type="PQ" value="0" /> <referenceRange> < observationRange> <text>0-10</text> </observationRange> </referenceRange> </observation> </component> < component> <observation moodCode="EVN" classCode="OBS"> < templateId root="2.16.840.1.288491.10.20.22.4.2" /> <id nullFlavor="NA " /> <code codeSystem="local" code="751-8" displayName="Blood neutrophils automated count (number/volume)" /> <statusCode code= "completed" /> <effectiveTime value="" /> <value unit="10*3" xsi:type="PQ" value="3.5" /> <referenceRange> < observationRange> <text>1.8-7.8</text> </ observationRange> </referenceRange> </observation> </ component> <component> <observation moodCode="EVN" classCode="OBS"> <templateId root="2.16.840.1.407286.10..22.4.2" /> <id nullFlavor="NA" /> <code codeSystem="local" code="731-0" displayName= "Blood lymphocytes automated count (number/volume)" /> <statusCode code ="completed" /> <effectiveTime value="" /> <value unit="10*3" xsi:type="PQ" value="1.9" /> <referenceRange> < observationRange> <text>1.0-4.0</text> </ observationRange> </referenceRange> </observation> </ component> <component> <observation moodCode="EVN" classCode="OBS"> <templateId root="2.16.840.1.558781.10..22.4.2" /> <id nullFlavor="NA" /> <code codeSystem="local" code="742-7" displayName= "Blood monocytes automated count (number/volume)" /> <statusCode code= "completed" /> <effectiveTime value="" /> <value unit="10*3" xsi:type="PQ" value="0.4" /> <referenceRange> < observationRange> <text>0.0-1.0</text> </ observationRange> </referenceRange> </observation> </ component> <component> <observation moodCode="EVN" classCode="OBS"> <templateId root="2.16.840.1.392122.02.09.22.4.2" /> <id nullFlavor="NA" /> <code codeSystem="local" code="711-2" displayName= "Automated eosinophil count" /> <statusCode code="completed" /> <effectiveTime value="" /> <value unit="10*3/uL" xsi: type="PQ" value="0.0" /> <referenceRange> <observationRange > <text>0.0-0.3</text> </observationRange> </ referenceRange> </observation> </component> <component> <observation moodCode="EVN" classCode="OBS"> <templateId root= "2.16.840.1.294448.10..22.4.2" /> <id nullFlavor="NA" /> < code codeSystem="local" code="704-7" displayName="Automated blood basophil count (count/volume)" /> <statusCode code="completed" /> < effectiveTime value="" /> <value unit="10*3/uL" xsi:type= "PQ" value="0.0" /> <referenceRange> <observationRange> <text>0.0-0.1</text> </observationRange> </ referenceRange> </observation> </component> </organizer> </entry > <entry> <organizer moodCode="EVN" classCode="BATTERY"> <templateId root="2.16.840.1.146983.10.20.22.4.1" /> <id nullFlavor="NA" /> <code codeSystem="local" code="76009-6" displayName="Complete blood count (CBC) with automated white blood cell (WBC) differential" /> <statusCode code= "completed" /> <component> <observation moodCode="EVN" classCode= "OBS"> <templateId root="2.16.840.1.859258.10..22.4.2" /> < id nullFlavor="NA" /> <code codeSystem="local" code="6690-2" displayName="Blood leukocytes automated count (number/volume)" /> < statusCode code="completed" /> <effectiveTime value="495536243906" /> <value unit="10*3/uL" xsi:type="PQ" value="9.2" /> < referenceRange> <observationRange> <text>4.3-11.0</text > </observationRange> </referenceRange> </observation > </component> <component> <observation moodCode="EVN" classCode="OBS"> <templateId root="2.16.840.1.259102.10.20.22.4.2" /> <id nullFlavor="NA" /> <code codeSystem="local" code="789-8" displayName="Blood erythrocytes automated count (number/volume)" /> < statusCode code="completed" /> <effectiveTime value="518482091009" /> <value unit="10*6/uL" xsi:type="PQ" value="4.04" /> < interpretationCode codeSystem="local" code="" /> <referenceRange> <observationRange> <text>4.35-5.85</text> </ observationRange> </referenceRange> </observation> </ component> <component> <observation moodCode="EVN" classCode="OBS"> <templateId root="2.16.840.1.961233.10.20.22.4.2" /> <id nullFlavor="NA" /> <code codeSystem="local" code="34595-4" displayName= "Venous blood hemoglobin measurement (mass/volume)" /> <statusCode code ="completed" /> <effectiveTime value="282931247725" /> <value unit="g/dL" xsi:type="PQ" value="13.4" /> <referenceRange> < observationRange> <text>11.5-16.0</text> </ observationRange> </referenceRange> </observation> </ component> <component> <observation moodCode="EVN" classCode="OBS"> <templateId root="2.16.840.1.413381.10.20.22.4.2" /> <id nullFlavor="NA" /> <code codeSystem="local" code="33887-4" displayName= "Blood hematocrit (volume fraction)" /> <statusCode code="completed" / > <effectiveTime value="047652092918" /> <value unit="%" xsi:type="PQ" value="39" /> <referenceRange> < observationRange> <text>35-52</text> </observationRange > </referenceRange> </observation> </component> < component> <observation moodCode="EVN" classCode="OBS"> < templateId root="2.16.840.1.004048.10.20.22.4.2" /> <id nullFlavor="NA " /> <code codeSystem="local" code="787-2" displayName="Automated erythrocyte mean corpuscular volume" /> <statusCode code="completed" / > <effectiveTime value="020776512278" /> <value unit="[foz_us] " xsi:type="PQ" value="96" /> <referenceRange> < observationRange> <text>80-99</text> </observationRange > </referenceRange> </observation> </component> < component> <observation moodCode="EVN" classCode="OBS"> < templateId root="216.840.1.688235.10.20.22.4.2" /> <id nullFlavor="NA " /> <code codeSystem="local" code="785-6" displayName="Automated erythrocyte mean corpuscular hemoglobin (mass per erythrocyte)" /> < statusCode code="completed" /> <effectiveTime value="" /> <value unit="pg" xsi:type="PQ" value="33" /> <referenceRange> <observationRange> <text>25-34</text> </ observationRange> </referenceRange> </observation> </ component> <component> <observation moodCode="EVN" classCode="OBS"> <templateId root="16.840.1.895425.10.20.22.4.2" /> <id nullFlavor="NA" /> <code codeSystem="local" code="786-4" displayName= "Automated erythrocyte mean corpuscular hemoglobin concentration measurement ( mass/volume)" /> <statusCode code="completed" /> < effectiveTime value="000557363088" /> <value unit="g/dL" xsi:type="PQ" value="34" /> <referenceRange> <observationRange> <text>32-36</text> </observationRange> </referenceRange > </observation> </component> <component> <observation moodCode="EVN" classCode="OBS"> <templateId root= "216.840.1.799046.10.20.22.4.2" /> <id nullFlavor="NA" /> < code codeSystem="local" code="788-0" displayName="Automated erythrocyte distribution width ratio" /> <statusCode code="completed" /> < effectiveTime value="330046138649" /> <value unit="%" xsi:type="PQ " value="13.8" /> <referenceRange> <observationRange> <text>10.0-14.5</text> </observationRange> </ referenceRange> </observation> </component> <component> <observation moodCode="EVN" classCode="OBS"> <templateId root= "06.08.840.1.244129.10..22.4.2" /> <id nullFlavor="NA" /> < code codeSystem="local" code="777-3" displayName="Automated blood platelet count (count/volume)" /> <statusCode code="completed" /> < effectiveTime value="949130343731" /> <value unit="10*3/uL" xsi:type= "PQ" value="267" /> <referenceRange> <observationRange> <text>130-400</text> </observationRange> </ referenceRange> </observation> </component> <component> <observation moodCode="EVN" classCode="OBS"> <templateId root= "216.840.1.093389.10.20.22.4.2" /> <id nullFlavor="NA" /> < code codeSystem="local" code="86043-0" displayName="Automated blood platelet mean volume measurement" /> <statusCode code="completed" /> < effectiveTime value="971839937889" /> <value unit="[[facility]]" xsi:type= "PQ" value="8.6" /> <referenceRange> <observationRange> <text>7.4-10.4</text> </observationRange> </ referenceRange> </observation> </component> <component> <observation moodCode="EVN" classCode="OBS"> <templateId root= "2.16.840.1.601448.10.20.22.4.2" /> <id nullFlavor="NA" /> < code codeSystem="local" code="770-8" displayName="Automated blood neutrophils/ 100 leukocytes" /> <statusCode code="completed" /> < effectiveTime value="017867959428" /> <value unit="%" xsi:type="PQ " value="71" /> <referenceRange> <observationRange> <text>42-75</text> </observationRange> </ referenceRange> </observation> </component> <component> <observation moodCode="EVN" classCode="OBS"> <templateId root= "2.16.840.1.909303.10..22.4.2" /> <id nullFlavor="NA" /> < code codeSystem="local" code="736-9" displayName="Automated blood lymphocytes/ 100 leukocytes" /> <statusCode code="completed" /> < effectiveTime value="398938329508" /> <value unit="%" xsi:type="PQ " value="22" /> <referenceRange> <observationRange> <text>12-44</text> </observationRange> </ referenceRange> </observation> </component> <component> <observation moodCode="EVN" classCode="OBS"> <templateId root= "216.840.1.651649..22.4.2" /> <id nullFlavor="NA" /> < code codeSystem="local" code="54024-6" displayName="Blood monocytes/100 leukocytes" /> <statusCode code="completed" /> <effectiveTime value="" /> <value unit="%" xsi:type="PQ" value="7" /> <referenceRange> <observationRange> <text>0-12 </text> </observationRange> </referenceRange> </ observation> </component> <component> <observation moodCode= "EVN" classCode="OBS"> <templateId root="2.16.840.1.603299...4.2 " /> <id nullFlavor="NA" /> <code codeSystem="local" code="713 -8" displayName="Automated blood eosinophils/100 leukocytes" /> < statusCode code="completed" /> <effectiveTime value="" /> <value unit="%" xsi:type="PQ" value="0" /> <referenceRange > <observationRange> <text>0-10</text> </ observationRange> </referenceRange> </observation> </ component> <component> <observation moodCode="EVN" classCode="OBS"> <templateId root="2.16.840.1.752141.10.22.4.2" /> <id nullFlavor="NA" /> <code codeSystem="local" code="706-2" displayName= "Automated blood basophils/100 leukocytes" /> <statusCode code= "completed" /> <effectiveTime value="" /> <value unit="%" xsi:type="PQ" value="0" /> <referenceRange> < observationRange> <text>0-10</text> </observationRange> </referenceRange> </observation> </component> < component> <observation moodCode="EVN" classCode="OBS"> < templateId root="2.16.840.1.985299.10.20.22.4.2" /> <id nullFlavor="NA " /> <code codeSystem="local" code="751-8" displayName="Blood neutrophils automated count (number/volume)" /> <statusCode code= "completed" /> <effectiveTime value="" /> <value unit="10*3" xsi:type="PQ" value="6.5" /> <referenceRange> < observationRange> <text>1.8-7.8</text> </ observationRange> </referenceRange> </observation> </ component> <component> <observation moodCode="EVN" classCode="OBS"> <templateId root="2.16.840.1.043615..22.4.2" /> <id nullFlavor="NA" /> <code codeSystem="local" code="731-0" displayName= "Blood lymphocytes automated count (number/volume)" /> <statusCode code ="completed" /> <effectiveTime value="" /> <value unit="10*3" xsi:type="PQ" value="2.1" /> <referenceRange> < observationRange> <text>1.0-4.0</text> </ observationRange> </referenceRange> </observation> </ component> <component> <observation moodCode="EVN" classCode="OBS"> <templateId root="2.16.840.1.705302.10.20.22.4.2" /> <id nullFlavor="NA" /> <code codeSystem="local" code="742-7" displayName= "Blood monocytes automated count (number/volume)" /> <statusCode code= "completed" /> <effectiveTime value="" /> <value unit="10*3" xsi:type="PQ" value="0.6" /> <referenceRange> < observationRange> <text>0.0-1.0</text> </ observationRange> </referenceRange> </observation> </ component> <component> <observation moodCode="EVN" classCode="OBS"> <templateId root="2.16.840.1.333981.02.09.22.4.2" /> <id nullFlavor="NA" /> <code codeSystem="local" code="711-2" displayName= "Automated eosinophil count" /> <statusCode code="completed" /> <effectiveTime value="" /> <value unit="10*3/uL" xsi: type="PQ" value="0.0" /> <referenceRange> <observationRange > <text>0.0-0.3</text> </observationRange> </ referenceRange> </observation> </component> <component> <observation moodCode="EVN" classCode="OBS"> <templateId root= "2.16.840.1.782871.02.09.22.4.2" /> <id nullFlavor="NA" /> < code codeSystem="local" code="704-7" displayName="Automated blood basophil count (count/volume)" /> <statusCode code="completed" /> < effectiveTime value="" /> <value unit="10*3/uL" xsi:type= "PQ" value="0.0" /> <referenceRange> <observationRange> <text>0.0-0.1</text> </observationRange> </ referenceRange> </observation> </component> </organizer> </entry > <entry> <organizer moodCode="EVN" classCode="BATTERY"> <templateId root="2.16.840.1.065246.10..22.4.1" /> <id nullFlavor="NA" /> <code codeSystem="local" code="06110-4" displayName="Comprehensive metabolic panel" / > <statusCode code="completed" /> <component> <observation moodCode="EVN" classCode="OBS"> <templateId root= "216.840.1.931419.10..22.4.2" /> <id nullFlavor="NA" /> < code codeSystem="local" code="2951-2" displayName="Serum or plasma sodium measurement (moles/volume)" /> <statusCode code="completed" /> <effectiveTime value="021350258286" /> <value unit="mmol/L" xsi:type= "PQ" value="137" /> <referenceRange> <observationRange> <text>135-145</text> </observationRange> </ referenceRange> </observation> </component> <component> <observation moodCode="EVN" classCode="OBS"> <templateId root= "16.840.1.085554....4.2" /> <id nullFlavor="NA" /> < code codeSystem="local" code="2823-3" displayName="Serum or plasma potassium measurement (moles/volume)" /> <statusCode code="completed" /> <effectiveTime value="755010985979" /> <value unit="mmol/L" xsi:type= "PQ" value="3.6" /> <referenceRange> <observationRange> <text>3.6-5.0</text> </observationRange> </ referenceRange> </observation> </component> <component> <observation moodCode="EVN" classCode="OBS"> <templateId root= "216.840.1.091522.10..22.4.2" /> <id nullFlavor="NA" /> < code codeSystem="local" code="" displayName="Serum or plasma chloride measurement (moles/volume)" /> <statusCode code="completed" /> <effectiveTime value="" /> <value unit="mmol/L" xsi:type= "PQ" value="106" /> <referenceRange> <observationRange> <text>98-107</text> </observationRange> </ referenceRange> </observation> </component> <component> <observation moodCode="EVN" classCode="OBS"> <templateId root= "2.16.840.1.415936.10.20.22.4.2" /> <id nullFlavor="NA" /> < code codeSystem="local" code="2027-12" displayName="Carbon dioxide" /> < statusCode code="completed" /> <effectiveTime value="" /> <value unit="mmol/L" xsi:type="PQ" value="19" /> < interpretationCode codeSystem="local" code="" /> <referenceRange> <observationRange> <text>21-32</text> </ observationRange> </referenceRange> </observation> </ component> <component> <observation moodCode="EVN" classCode="OBS"> <templateId root="2.16.840.1.210214.10..22.4.2" /> <id nullFlavor="NA" /> <code codeSystem="local" code="76293-1" displayName= "Serum or plasma anion gap determination (moles/volume)" /> < statusCode code="completed" /> <effectiveTime value="" /> <value unit="mmol/L" xsi:type="PQ" value="12" /> < referenceRange> <observationRange> <text>5-14</text> </observationRange> </referenceRange> </observation> </component> <component> <observation moodCode="EVN" classCode= "OBS"> <templateId root="2.16.840.1.436291.10.20.22.4.2" /> < id nullFlavor="NA" /> <code codeSystem="local" code="3094-0" displayName="Serum or plasma urea nitrogen measurement (mass/volume)" /> <statusCode code="completed" /> <effectiveTime value="" /> <value unit="mg/dL" xsi:type="PQ" value="8" /> < referenceRange> <observationRange> <text>7-18</text> </observationRange> </referenceRange> </observation> </component> <component> <observation moodCode="EVN" classCode= "OBS"> <templateId root="216.840.1.063665.10.22.4.2" /> < id nullFlavor="NA" /> <code codeSystem="local" code="2160-0" displayName="Serum or plasma creatinine measurement (mass/volume)" /> < statusCode code="completed" /> <effectiveTime value="241649785995" /> <value unit="mg/dL" xsi:type="PQ" value="0.63" /> < referenceRange> <observationRange> <text>0.60-1.30</text > </observationRange> </referenceRange> </observation > </component> <component> <observation moodCode="EVN" classCode="OBS"> <templateId root="2.16.840.1.142341.10.20.22.4.2" /> <id nullFlavor="NA" /> <code codeSystem="local" code="3097-3" displayName="Serum or plasma urea nitrogen/creatinine mass ratio" /> < statusCode code="completed" /> <effectiveTime value="427494559504" /> <value unit="" xsi:type="PQ" value="13" /> <referenceRange> <observationRange> <text>NRG</text> </ observationRange> </referenceRange> </observation> </ component> <component> <observation moodCode="EVN" classCode="OBS"> <templateId root="2.16.840.1.053373.10..22.4.2" /> <id nullFlavor="NA" /> <code codeSystem="local" code="37833-6" displayName= "Serum or plasma creatinine measurement with calculation of estimated glomerular filtration rate" /> <statusCode code="completed" /> <effectiveTime value="" /> <value unit="" xsi:type="PQ" value=">" /> <referenceRange> <observationRange> <text>NRG</text> </observationRange> </referenceRange > </observation> </component> <component> <observation moodCode="EVN" classCode="OBS"> <templateId root= "2.16.840.1.326651.10..22.4.2" /> <id nullFlavor="NA" /> < code codeSystem="local" code="2345-7" displayName="Serum or plasma glucose measurement (mass/volume)" /> <statusCode code="completed" /> <effectiveTime value="" /> <value unit="mg/dL" xsi:type="PQ " value="125" /> <interpretationCode codeSystem="local" code="" /> <referenceRange> <observationRange> <text>70-105 </text> </observationRange> </referenceRange> </ observation> </component> <component> <observation moodCode= "EVN" classCode="OBS"> <templateId root="2.16.840.1.520255.10..22.4.2 " /> <id nullFlavor="NA" /> <code codeSystem="local" code= "66115-9" displayName="Serum or plasma calcium measurement (mass/volume)" /> <statusCode code="completed" /> <effectiveTime value= "" /> <value unit="mg/dL" xsi:type="PQ" value="9.7" /> <referenceRange> <observationRange> <text>8.5-10.1 </text> </observationRange> </referenceRange> </ observation> </component> <component> <observation moodCode= "EVN" classCode="OBS"> <templateId root="2.16.840.1.695352.10..22.4.2 " /> <id nullFlavor="NA" /> <code codeSystem="local" code= "1974-05" displayName="Serum or plasma total bilirubin measurement (mass/volume) " /> <statusCode code="completed" /> <effectiveTime value= "665151834866" /> <value unit="mg/dL" xsi:type="PQ" value="0.2" /> <referenceRange> <observationRange> <text>0.1-1.0< /text> </observationRange> </referenceRange> </ observation> </component> <component> <observation moodCode= "EVN" classCode="OBS"> <templateId root="2.16.840.1.831451.10..22.4.2 " /> <id nullFlavor="NA" /> <code codeSystem="local" code= "6768-6" displayName="Serum or plasma alkaline phosphatase measurement ( enzymatic activity/volume)" /> <statusCode code="completed" /> <effectiveTime value="" /> <value unit="U/L" xsi:type="PQ " value="49" /> <referenceRange> <observationRange> <text>40-136</text> </observationRange> </ referenceRange> </observation> </component> <component> <observation moodCode="EVN" classCode="OBS"> <templateId root= "2.16.840.1.746862.10.20.22.4.2" /> <id nullFlavor="NA" /> < code codeSystem="local" code="1919-11" displayName="Serum or plasma aspartate aminotransferase measurement (enzymatic activity/volume)" /> < statusCode code="completed" /> <effectiveTime value="774392105168" /> <value unit="U/L" xsi:type="PQ" value="15" />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
[2018-07-12 13:46] LABS: BASOPHILS % (AUTO) 0 % (0-10); EOSINOPHILS % (AUTO) 0 % (0-10); HEMATOCRIT 38 % (35-52); LYMPHOCYTES # (AUTO) 1.6 X 10^3 (1.0-4.0); LYMPHOCYTES % (AUTO) 20 % (12-44); MEAN CORPUSCULAR HEMOGLOBIN 34 PG (25-34); MEAN CORPUSCULAR HGB CONC 34 G/DL (32-36); MEAN CORPUSCULAR VOLUME 99 FL (80-99); MEAN PLATELET VOLUME 8.4 FL (7.4-10.4); MONOCYTES # (AUTO) 0.5 X 10^3 (0.0-1.0); MONOCYTES % (AUTO) 6 % (0-12); NEUTROPHILS # (AUTO) 6.1 X 10^3 (1.8-7.8); NEUTROPHILS % (AUTO) 74 % (42-75); PLATELET COUNT 252 10^3/uL (130-400); RED CELL DISTRIBUTION WIDTH 14.2 % (10.0-14.5); WHITE BLOOD COUNT 8.2 10^3/uL (4.3-11.0)
--- NOTE | 2018-07-12 13:47 | ED GU-Female ---
General Chief Complaint: Abdominal/GI Problems Stated Complaint: ABDOMINLA PAIN Source: patient Exam Limitations: no limitations History of Present Illness Date Seen by Provider: Jul 12, 2018 Time Seen by Provider: 13:44 Initial Comments tHE PATIENT IS ESSENTIALLY 16 WEEKS . She had a sonogram done on May 11 which revealed 6 weeks 6 days. She has seen Dr. SANTIAGO. She began to have suprapubic pain more to the right of center yesterday afternoon. She reports she was poorly able to sleep through the night. She called Dr. SANTIAGO' s office and was advised to come here. She also reports dysuria and frequency. This is her first . Timing/Duration: yesterday Severity/Quality: burning (with urination) Location: suprapubic Radiation: none Allergies and Home Medications Allergies Coded Allergies: tramadol (Verified Allergy, Unknown, 02/13/18) Home Medications Duloxetine HCl 60 Mg Capsule.dr, 120 MG PO HS, (Reported) TAKES 2 (60MG) CAPSULES Hydrocodone Bit/Acetaminophen 1 Tab Tab, 1 TAB PO Q6H PRN for PAIN-MODERATE Prescribed by: JOZEF THOMASON on 05/07/18 1503 Metoprolol Tartrate 25 Mg Tablet, 50 MG PO DAILY, (Reported) TAKES 2 (25MG) TABLETS Metoprolol Tartrate 25 Mg Tablet, 25 MG PO HS, (Reported) Nortriptyline HCl 50 Mg Capsule, 100 MG PO HS, (Reported) TAKES 2 (50MG) CAPSULES Pregabalin 150 Mg Capsule, 150 MG PO QID, (Reported) Review of Systems Review of Systems Constitutional: see HPI EENTM: no symptoms reported Respiratory: no symptoms reported Cardiovascular: no symptoms reported Gastrointestinal: no symptoms reported Musculoskeletal: no symptoms reported Skin: no symptoms reported Psychiatric/Neurological: No Symptoms Reported Endocrine: No Symptoms Reported Hematologic/Lymphatic: No Symptoms Reported Past Haxubcm-Xrvvku-Pjqowc Hx Patient Social History Former Smoker, Quit: Apr 23, 2017 Recent Foreign Travel: No Contact w/Someone Who Travel: No Recent Hopitalizations: No Immunizations Up To Date Tetanus Booster (TDap): Less than 5yrs PED Vaccines UTD: Yes Date of Influenza Vaccine: Mar 07, 2018 Seasonal Allergies Seasonal Allergies: No Past Medical History Surgeries: No Respiratory: No Cardiac: Yes (TACHY) Irregular Heartbeat Neurological: No Reproductive Disorders: No Female Reproductive Disorders: Denies Sexually Transmitted Disease: No Genitourinary: No Gastrointestinal: No Musculoskeletal: Yes ("CHRONIC PAIN FROM FIBROMYALGIA" ) Fibromyalgia Endocrine: Yes (Sjogren's disease per patient ) HEENT: No Cancer: No Psychosocial: Yes Anxiety, Depression Integumentary: No Blood Disorders: No Family Medical History Diabetes Physical Exam Vital Signs Capillary Refill : Height, Weight, BMI Height: 5'9.00" Weight: 148lbs. 0.0oz. [id number]; 21.4 BMI Method:Stated General Appearance: mild distress, moderate distress Neck: full range of motion Cardiovascular: normal peripheral pulses, regular rate, rhythm, no edema, no gallop, no JVD, no murmur Respiratory: chest non-tender, lungs clear, normal breath sounds, no respiratory distress, no accessory muscle use, respiratory distress Pain to palpation in the suprapubic area and to the right pelvic brim Progress/Results/Core Measures Suspected Sepsis SIRS Temperature: Pulse: Respiratory Rate: Blood Pressure / Mean: Results/Orders My Orders Orders - RITA VILLAVICENCIO MD Cbc With Automated Diff (07/12/18 13:05) Comprehensive Metabolic Panel (07/12/18 13:05) Ua Culture If Indicated (07/12/18 13:05) Vital Signs/I&O Capillary Refill : Departure Departure-Patient Inst. Referrals: NO,LOCAL PHYSICIAN (PCP/Family) Primary Care Physician RITA VILLAVICENCIO MD Jul 12, 2018 13:47
[2018-07-12 13:50] LABS: BILIRUBIN,URINE NEGATIVE (NEGATIVE); CLARITY,URINE CLEAR; COLOR,URINE YELLOW; GLUCOSE, URINE (UA) NEGATIVE (NEGATIVE); KETONES,URINE 1+ (NEGATIVE); LEUKOCYTE ESTERASE ,URINE 1+ (NEGATIVE); NITRITE,URINE NEGATIVE (NEGATIVE); PH,URINE 6 (5-9); PROTEIN,URINE 1+ (NEGATIVE); UROBILINOGEN,URINE NORMAL (NORMAL)
[2018-07-12 14:03] LABS: ALANINE AMINOTRANSFERASE 12 U/L (0-55); ALKALINE PHOSPHATASE 53 U/L (40-136); BILIRUBIN,TOTAL 0.3 MG/DL (0.1-1.0); BUN/CREATININE RATIO 7; CALCIUM 9.3 MG/DL (8.5-10.1); CARBON DIOXIDE 21 MMOL/L (21-32); CHLORIDE 104 MMOL/L (98-107); CREATININE SERUM 0.67 MG/DL (0.60-1.30); GFR ESTIMATED > 60; GLUCOSE 130 MG/DL (70-105); POTASSIUM 3.4 MMOL/L (3.6-5.0); SODIUM 135 MMOL/L (135-145)
[2018-07-12 14:06] LABS: BACTERIA,URINE MODERATE /HPF; RBC,URINE RARE /HPF; WBC,URINE 0-2 /HPF
[2018-07-12 14:41] VITALS: BP 123/78
== END 2018-07-12 14:41 | disposition left against medical advice (07) ==
LOC: EDUNIT# 12:52 → ER 12:56
DX: O26.892 Other specified pregnancy related conditions, second trimester (principal); R10.31 Right lower quadrant pain; O99.342 Other mental disorders complicating pregnancy, second trimester; F41.9 Anxiety disorder, unspecified; F32.9 Major depressive disorder, single episode, unspecified; O99.89 Other specified diseases and conditions complicating pregnancy, childbirth and the puerperium; M35.00 Sjogren syndrome, unspecified; Z88.6 Allergy status to analgesic agent; Z3A.16 16 weeks gestation of pregnancy; Z87.891 Personal history of nicotine dependence
CPT/HCPCS: 36415; 80053; 81000; 85025

== ENCOUNTER → 2018-08-07 | Outpatient (CLI) | payer MEDICAID ==
--- NOTE | 2018-08-07 14:28 | Diagnostic Imaging Report ---
INDICATION: survey. TECHNIQUE: Multiple real-time grayscale images were obtained over the gravid uterus. COMPARISON: 05/05/2018. FINDINGS: There is a single live fetus in a variable presentation. Placenta is fundal. Amniotic fluid volume is normal. heart rate was recorded at 147 beats per minute. survey demonstrates kidneys, bladder, and stomach to be unremarkable. The brain is unremarkable. There is a four-chamber heart. There is a three-vessel cord with normal insertion. The spine is unremarkable. Biometrical measurements are as follows: Biparietal 4.72 cm, age 20 weeks 2 days. Head circumference 17.48 cm, age 20 weeks 1 days. Abdominal circumference 15.05 cm, age 20 weeks 3 days. Femur length 3.14 cm, age 19 weeks 6 days. Sonographic estimate age: 20 weeks 2 days. Sonographic estimated date of delivery: 12/23/2018. Estimated Weight: 329 gm (+/- 48 gm). LMP percentile: 48%. heart rate: 147 beats per minute. number: 1 of 1. IMPRESSION: Single live IUP at 20 weeks 2 days gestational age. Estimated date of confinement sonographically is 12/23/2018. No complicating features are detected. Dictated by: Dictated on workstation # [id number]
== END ==
LOC: RAD 09:44
PROVIDERS: ATTEND Obstetrics & Gynecology
DX: Z36.89 Encounter for other specified antenatal screening (principal); Z3A.20 20 weeks gestation of pregnancy
CPT/HCPCS: 76805

== ENCOUNTER 2018-08-09 12:47 | Outpatient (CLI) | payer MEDICAID ==
[~2018-08-09] VITALS: Ht 175.3 cm; Wt 66.7 kg
--- NOTE | 2018-08-09 12:58 | NUR ---
KRISTINA TABARES presented to unit via AMB from ED, with c/o ABD PAIN AND N/V KRISTINA TABARES weighed, gowned, voided, and to bed. EFHM and TOCO applied, VS taken. KRISTINA TABARES oriented to bed controls, call light, TV, heat, and A/C controls.
[2018-08-09 13:06] VITALS: BP 127/77
--- NOTE | 2018-08-09 13:15 | NUR ---
ASSESSMENT COMPLETED. PT STATES SHE STARTED WITH RLQ PAIN ON SUNDAY. SAW DR. SANTIAGO ON SUNDAY AND TOLD HIM HER COMPLAINT. OB ULTRASOUND WAS PERFORMED WITH NORMAL RESULTS. PT C/O ABDOMEN BEING TENDER WITH PALPATION BUT UNABLE TO REPRODUCE THE PAIN. STATES NO BM SINCE SUNDAY AND HAD A LOOSE STOOL AT THAT TIME. DENIES A FEVER. VSS CURRENTLY. NO CTXS PALPATED. DENIES BLEEDING OR LEAKING. STATES VOMITED X2 YESTERDAY. STATES HER STOMACH HURTS WHEN SHE EATS BUT HAS BEEN ABLE TO DRINK. DENIES PAINFUL URINATION. ABLE TO LIFT RIGHT AND LEFT LEG INDEPENDENTLY WITHOUT INCREASE IN PAIN BUT PREFERS BOTH KNEES BENT FOR COMFORT. FHR 145. AUDIBLE MOVEMENT. ABD SOFT. NO CTXS PALPATED.
[2018-08-09 13:28] LABS: BILIRUBIN,URINE NEGATIVE (NEGATIVE); CLARITY,URINE CLEAR; COLOR,URINE YELLOW; GLUCOSE, URINE (UA) NEGATIVE (NEGATIVE); KETONES,URINE NEGATIVE (NEGATIVE); LEUKOCYTE ESTERASE ,URINE NEGATIVE (NEGATIVE); NITRITE,URINE NEGATIVE (NEGATIVE); PH,URINE 6.5 (5-9); PROTEIN,URINE NEGATIVE (NEGATIVE); UROBILINOGEN,URINE NORMAL (NORMAL)
[2018-08-09 13:38] LABS: BACTERIA,URINE FEW /HPF
[2018-08-09] MEDS ORDERED: PREN1TAB79 PO (13:38)
--- NOTE | 2018-08-09 14:06 | NUR ---
DR. SANTIAGO NOTIFIED OF PT'S ARRIVAL AND COMPLAINT, NO CTXS, ACTIVE FETUS WITH FHR 145-150 AND NO DECELERATIONS. U.A. RESULTS REVIEWED. ORDER TO DO A CBC AND IF NORMAL WBC, DISMISS WITH PRECAUTIONS AND A RX FOR ZOFRAN 4 MG ODT q 4HOURS PRN NAUSEA/VOMITING. PLAN OF CARE REVIEWED WITH PT ANS STATES UNDERSTANDING.
--- NOTE | 2018-08-09 14:09 | NUR ---
EFM OFF. NO CTXS TRACED OR PALPATED.FHR 145-150. ACTIVE FETUS. NO DECELERATIONS.
--- NOTE | 2018-08-09 14:15 | NUR ---
LAB HERE TO DRAW BLOOD FOR CBC. PT DRINKING WATER.
[2018-08-09 14:26] LABS: BASOPHILS % (AUTO) 0 % (0-10); EOSINOPHILS % (AUTO) 0 % (0-10); HEMATOCRIT 36 % (35-52); HEMOGLOBIN 12.3 G/DL (11.5-16.0); LYMPHOCYTES % (AUTO) 26 % (12-44); MEAN CORPUSCULAR HEMOGLOBIN 34 PG (25-34); MEAN CORPUSCULAR HGB CONC 34 G/DL (32-36); MEAN CORPUSCULAR VOLUME 100 FL (80-99); MEAN PLATELET VOLUME 8.4 FL (7.4-10.4); MONOCYTES # (AUTO) 0.3 X 10^3 (0.0-1.0); MONOCYTES % (AUTO) 4 % (0-12); NEUTROPHILS # (AUTO) 5.3 X 10^3 (1.8-7.8); NEUTROPHILS % (AUTO) 70 % (42-75); PLATELET COUNT 274 10^3/uL (130-400); RED CELL DISTRIBUTION WIDTH 13.6 % (10.0-14.5); WHITE BLOOD COUNT 7.6 10^3/uL (4.3-11.0)
[2018-08-09] MEDS ORDERED: ONDA4TAB11 PO (14:36)
--- NOTE | 2018-08-09 14:43 | NUR ---
CBC REPORTED TO DR. SANTIAGO.
--- NOTE | 2018-08-09 14:45 | NUR ---
DISCHARGE INSTRUCTIONS REVIEWED WITH COPY GIVEN. STATES UNDERSTANDING OF ALL INSTRUCTIONS AND NEED TO F/U SCHEDULED AND NEEDED.
--- NOTE | 2018-08-09 14:50 | NUR ---
RX CALLED TO [facility] FOR ZOFRAN ODT 4 MG q 4HOURS PRN N/V #[address] SANTIAGO"S ORDER.
[2018-08-09 14:55] VITALS: BP 127/77
--- NOTE | 2018-08-09 14:55 | NUR ---
DISMISSED AMB FROM WS IN STABLE CONDITION TO [facility]AND[facility]S FAMILY [facility].
== END 2018-08-09 14:55 | disposition home or self-care (01) ==
LOC: WSo 12:47 → LDRP 12:51 → WSo 14:55
PROVIDERS: ATTEND Obstetrics & Gynecology
DX: O99.89 Other specified diseases and conditions complicating pregnancy, childbirth and the puerperium (principal); R10.9 Unspecified abdominal pain; Z3A.20 20 weeks gestation of pregnancy
CPT/HCPCS: 36415; 81000; 85025; 99213

== ENCOUNTER 2018-09-27 12:21 | Outpatient (CLI) | payer MEDICAID ==
[~2018-09-27] VITALS: Ht 175.3 cm; Wt 71.7 kg
[~2018-09-27 12:21] MED LIST changes: +PREN1TAB79 PO
--- NOTE | 2018-09-27 12:35 | NUR ---
KRISTINA TABARES presented to unit via from ED, accompanied by self, with c/o UPPER ABD PAIN. KRISTINA TABARES weighed, gowned, voided, and to bed. EFHM and TOCO applied, VS taken. KRISTINA TABARES oriented to bed controls, call light, TV, heat, and A/C controls.
[2018-09-27 13:11] VITALS: BP 136/81
--- NOTE | 2018-09-27 13:35 | NUR ---
dr carroll notified of patient vitals, pain, location of pain, and fhr/contraction pattern. new orders received.
[2018-09-27 14:01] LABS: BASOPHILS % (AUTO) 0 % (0-10); EOSINOPHILS % (AUTO) 0 % (0-10); HEMATOCRIT 34 % (35-52); HEMOGLOBIN 11.6 G/DL (11.5-16.0); LYMPHOCYTES # (AUTO) 2.1 X 10^3 (1.0-4.0); LYMPHOCYTES % (AUTO) 23 % (12-44); MEAN CORPUSCULAR HEMOGLOBIN 34 PG (25-34); MEAN CORPUSCULAR HGB CONC 34 G/DL (32-36); MEAN CORPUSCULAR VOLUME 100 FL (80-99); MEAN PLATELET VOLUME 9.2 FL (7.4-10.4); MONOCYTES # (AUTO) 0.4 X 10^3 (0.0-1.0); MONOCYTES % (AUTO) 5 % (0-12); NEUTROPHILS # (AUTO) 6.3 X 10^3 (1.8-7.8); NEUTROPHILS % (AUTO) 72 % (42-75); PLATELET COUNT 233 10^3/uL (130-400); WHITE BLOOD COUNT 8.8 10^3/uL (4.3-11.0)
--- NOTE | 2018-09-27 14:20 | NUR ---
normal fht's for this gestational age. no contractions noted. no decelerations. dr carroll notified of fht's /contraction pattern. and difficulty keep fht's r/t maternal position and constant movement. noted by RN and reported by mother.
[2018-09-27 14:22] LABS: ALANINE AMINOTRANSFERASE 15 U/L (0-55); ALBUMIN 3.4 GM/DL (3.2-4.5); ALKALINE PHOSPHATASE 61 U/L (40-136); BILIRUBIN,TOTAL 0.2 MG/DL (0.1-1.0); BUN/CREATININE RATIO 9; CALCIUM 8.9 MG/DL (8.5-10.1); CARBON DIOXIDE 20 MMOL/L (21-32); CHLORIDE 106 MMOL/L (98-107); CREATININE SERUM 0.53 MG/DL (0.60-1.30); GFR ESTIMATED > 60; GLUCOSE 101 MG/DL (70-105); POTASSIUM 3.5 MMOL/L (3.6-5.0); SODIUM 134 MMOL/L (135-145); TOTAL PROTEIN 6.3 GM/DL (6.4-8.2)
[2018-09-27] MEDS ORDERED: PROMETHAZINE INJ 25 MG/ML (PHENERGAN) AMP IVP ONE (15:15)
[2018-09-27] MEDS ORDERED: POTASSIUM CHLORIDE INJ 20 MEQ in LACTATED RINGERS 1,000 ML IV SCH (15:15)
--- NOTE | 2018-09-27 16:00 | NUR ---
dr carroll given patient update on patient status. no new orders at this frankie.e
--- NOTE | 2018-09-27 17:30 | NUR ---
zamzam reports pain 3/10, iv fluids complete. see flowsheet. request to dismiss home.
--- NOTE | 2018-09-27 17:40 | NUR ---
dr carroll notified of patient decreased pain in abdomen and request to go home . new orders received.
--- NOTE | 2018-09-27 17:50 | NUR ---
out of WS to self care with d/c instructions in hand.
--- NOTE | 2018-10-01 21:12 | Physician Query-Final Dx ---
KERRIE FARNSWORTH 10/01/182: Clinic Account Progress/Dx Physician Query: Please give diagnosis Date of Service Sep 27, 2018 at 12:21 SAM SHARP DO 10/18/18 0657: Clinic Account Progress/Dx DIAGNOSIS: Diagnosis 27 weeks right upper quadrant pain abdominal pain KERRIE FARNSWORTH Oct 01, 2018 21:12 SAM SHARP DO Oct 18, 2018 06:57
== END 2018-09-27 17:50 | disposition home or self-care (01) ==
LOC: WSo 12:21 → LDRP 12:24 → WSo 17:50
PROVIDERS: ATTEND Obstetrics & Gynecology
DX: O99.89 Other specified diseases and conditions complicating pregnancy, childbirth and the puerperium (principal); R10.11 Right upper quadrant pain; Z3A.27 27 weeks gestation of pregnancy
CPT/HCPCS: 36415; 80053; 85025; 96361; 96374; 99213

== ENCOUNTER 2018-10-23 20:42 | Outpatient (CLI) | payer MEDICAID ==
[~2018-10-23] VITALS: Ht 172.7 cm; Wt 72.8 kg
--- NOTE | 2018-10-23 20:48 | NUR ---
KRISTINA TABARES Alee presented to unit via ambulation from ED, accompanied by self, with c/o ABD PAIN,VAGINAL BLEEDING. KRISTINA TABARES Alee weighed, gowned, voided, and to bed. EFHM and TOCO applied, VS taken. KRISTINA TABARES Alee oriented to bed controls, call light, TV, heat, and A/C controls.
[2018-10-23 21:00] VITALS: BP 130/83
[2018-10-23] MEDS ORDERED: D5 LR IV SOLUTION 1,000 ML IV SCH (21:30)
--- NOTE | 2018-10-23 22:20 | NUR ---
IV completed and pt feeling significantly better, pt educated on importance of hydration and nutrients to a healthy . Reactive NST and no signs of hypoxia or distress from tracing. FHR remains in the 130 with mod variability, accels noted and no decelerations or UC noted on strip. IV removed and pt up to change go discharge to home.
[2018-10-23 22:26] VITALS: BP 122/82
[2018-10-23 22:39] VITALS: BP 122/82
--- NOTE | 2018-10-23 22:41 | NUR ---
Pt ambulated to private vehicle, pt received written and verbal discharge instructions and has no further concerns at this time.
== END 2018-10-23 22:40 | disposition home or self-care (01) ==
LOC: LDRP 20:42 → WSo 20:42
PROVIDERS: ATTEND Obstetrics & Gynecology
DX: O26.853 Spotting complicating pregnancy, third trimester (principal); Z3A.31 31 weeks gestation of pregnancy
CPT/HCPCS: 96360; 99213

== ENCOUNTER 2018-11-25 18:23 | Outpatient (CLI) | payer MEDICAID ==
[~2018-11-25] VITALS: Ht 172.7 cm; Wt 72.8 kg
--- NOTE | 2018-11-25 18:35 | NUR ---
KRISTINA TABARES presented to unit via AMBULATION from ED, accompanied by SELF, with c/o CONTRACTIONS. KRISTINA TABARES weighed, gowned, voided, and to bed. EFHM and TOCO applied, VS taken. KRISTINA TABARES oriented to bed controls, call light, TV, heat, and A/C controls.
[2018-11-25 18:52] LABS: BILIRUBIN,URINE NEGATIVE (NEGATIVE); CLARITY,URINE SLIGHTLY CLOUDY; COLOR,URINE YELLOW; GLUCOSE, URINE (UA) NEGATIVE (NEGATIVE); KETONES,URINE NEGATIVE (NEGATIVE); LEUKOCYTE ESTERASE ,URINE NEGATIVE (NEGATIVE); NITRITE,URINE NEGATIVE (NEGATIVE); PH,URINE 7 (5-9); PROTEIN,URINE NEGATIVE (NEGATIVE); UROBILINOGEN,URINE NORMAL (NORMAL)
[2018-11-25 18:59] LABS: BACTERIA,URINE TRACE /HPF; WBC,URINE RARE /HPF
--- NOTE | 2018-11-25 19:00 | NUR ---
Report received from Sharath Estrada RN. Introduced self to pt. Assessment done. Pt tearful. Discussed symptoms. Pt states that pain is across abdomen and not crampy. Pain is sharper but not constant. Denies leaking/bleeding/tightening. Discussing emotional status. pt states is very scared because this is first . Reassured that baby looks great and we see nothing concerning. Pt states having pain now. This rn palpating abdomen. No contraction felt. Will continue to monitor.
[2018-11-25 19:20] VITALS: BP 132/86
[2018-11-25] MEDS ORDERED: APAP 300 MG/CODEINE 30 MG (TYLENOL #3) TAB PO ONE (19:45)
[2018-11-25] MEDS ORDERED: FAMOTIDINE 20 MG (PEPCID) TABLET PO ONE (19:45)
--- NOTE | 2018-11-25 20:00 | NUR ---
ctx noted q 5-17 min lasting 70-80 sec. Pt denies feeling ctx. fhr 135 moderate variablility, accels present. reactive strip. No decels noted.
--- NOTE | 2018-11-25 20:05 | NUR ---
Instructions given to pt. Denies questions. verbalizes understanding. dc'd efm and toco. left pt to dress.
--- NOTE | 2018-11-25 20:10 | NUR ---
Pt ambulated off unit accompanied by mother. no s/s distress noted. Pt smiling.
--- NOTE | 2018-11-25 20:25 | NUR ---
[address] pardo with report. Orders received for pepcid, tylenol #3, discharge, and follow up appointment.
--- NOTE | 2018-12-05 14:54 | Physician Query-Final Dx ---
KERRIE FARNSWORTH 12/05/18 1454: Clinic Account Progress/Dx Physician Query: Please give diagnosis Need diagnosis and weeks of gestation Date of Service Nov 25, 2018 at 18:23 CHARU VILLARREAL DO 12/10/18 0713: Clinic Account Progress/Dx Physician Query: Intrauterine at 31 weeks 2. Pelvic Pain 3. GERD DIAGNOSIS: Diagnosis Intrauterine at 31 weeks 2. Pelvic Pain 3. GERD Progress Note: Case discussed with nursing staff and treated. KERRIE Sorto Dec 05, 2018 14:54 CHARU VILLARREAL DO Dec 10, 2018 07:13
== END 2018-11-25 20:25 | disposition home or self-care (01) ==
LOC: WSo 18:23 → LDRP 18:23 → WSo 20:25
PROVIDERS: ATTEND Obstetrics & Gynecology
DX: O99.89 Other specified diseases and conditions complicating pregnancy, childbirth and the puerperium (principal); R10.2 Pelvic and perineal pain; K21.9 Gastro-esophageal reflux disease without esophagitis; Z3A.31 31 weeks gestation of pregnancy
CPT/HCPCS: 81000; 87088; 99212

== ENCOUNTER 2018-12-16 07:00 | Inpatient (IN) | payer MEDICAID ==
[2018-12-16] VITALS (43 sets, daily range): BP systolic 117–160; BP diastolic 77–113
[~2018-12-16] VITALS: Ht 172.7 cm; Wt 78.0 kg
--- NOTE | 2018-12-16 07:00 | NUR ---
KRISTINA TABARES presented to unit via ambulation from ED, accompanied by self, with c/o CONTRACTIONS. KRISTINA TABARES weighed, gowned, voided, and to bed. EFHM and TOCO applied, VS taken. KRISTINA TABARES oriented to bed controls, call light, TV, heat, and A/C controls.
[2018-12-16] MEDS ORDERED: D5 LR IV SOLUTION 1,000 ML IV ONE (07:49)
[2018-12-16] MEDS ORDERED: MINERAL OIL CONCENTRATE 99.9% 15 ML UDC TOP PRN (08:00)
[2018-12-16] MEDS: D5 LR IV SOLUTION 1,000 ML IV SCH ×2 (08:10→15:52)
--- NOTE | 2018-12-16 08:14 | History & Physical-OB ---
OB - Chief Complaint & HPI Date/Time Date of Admission: Date of Admission: 12/16/2018 Date seen by a Provider: Dec 16, 2018 Time Seen by a Provider: 08:00 Chief Complaint/History OB-Reason for Admission/Chief: Onset of Labor Hx : 1 Hx Para: 0 Expected Date of Delivery: Dec 25, 2018 Gestational Age in Weeks: 38 Gestational Age in Days: 5 Admission Nurse Assessment Rev: Yes History of Labs A pos Antibody neg RI RPR NR HBsAg NR HIV NR GC neg GBS neg Allergies and Home Medications Allergies Coded Allergies: tramadol (Verified Allergy, Unknown, 02/13/18) Home Medications Ondansetron 4 Mg Tab.rapdis, 4 MG PO Q4H Prescribed by: LANEY GANN on 08/09/18 1436 Vit W-Ca,Fe,FA(<1 mg) 1 Each Tablet, 1 EACH PO DAILY, (Reported) Patient Home Medication List Home Medication List Reviewed: Yes OB - History Hx of Present Care: Yes Ultrasounds: Normal mid trimester US Obstetrical Complications: None Medical Complications: None Delivery History Hx Blood Disorders: No Patient Past Medical History n/a Social History/Family History Sexually Transmitted Disease: No Immunizations Tetanus Booster (TDap): Less than 5yrs Date of Influenza Vaccine: Mar 07, 2018 OB - Admission Exam Physical Exam HEENT: NCAT Heart: Rhythm Normal Lungs: Clear Abdomen: Gravid Extremities: Normal Reflexes: Normal Cervical Dilatation: 4cm Effacement: 75% Station: -1 Membranes: Intact Heart Rate: 130's Accelerations: Accelerations Present Decelerations: No Decelerations Short Term Variability: Present [employer] Bonder Variability: Average (6-25) Contractions on Admission: < 5 Minutes Apart Labs Laboratory Tests Test 12/16/18 07:15 Range/Units OB - Assessment/Plan/Diagnosis Assessment Assessment: active labor Admission Dx 23 yoG1 @ 38 weeks Active labor GBS neg Admission Status: Inpatient Order (span 2 midnights) Reason for Inpatient Admission: Active labor Plan Plan: Expectant Management JINA SANTIAGO DO Dec 16, 2018 08:14
[2018-12-16 08:17] LABS: BASOPHILS % (AUTO) 0 % (0-10); EOSINOPHILS % (AUTO) 0 % (0-10); HEMATOCRIT 35 % (35-52); HEMOGLOBIN 11.4 G/DL (11.5-16.0); LYMPHOCYTES % (AUTO) 28 % (12-44); MEAN CORPUSCULAR HEMOGLOBIN 31 PG (25-34); MEAN CORPUSCULAR HGB CONC 33 G/DL (32-36); MEAN CORPUSCULAR VOLUME 95 FL (80-99); MEAN PLATELET VOLUME 10.5 FL (7.4-10.4); MONOCYTES # (AUTO) 0.5 X 10^3 (0.0-1.0); MONOCYTES % (AUTO) 7 % (0-12); NEUTROPHILS # (AUTO) 4.7 X 10^3 (1.8-7.8); NEUTROPHILS % (AUTO) 65 % (42-75); PLATELET COUNT 228 10^3/uL (130-400); RED CELL DISTRIBUTION WIDTH 13.9 % (10.0-14.5); WHITE BLOOD COUNT 7.3 10^3/uL (4.3-11.0)
[2018-12-16 08:24] LABS: BILIRUBIN,URINE NEGATIVE (NEGATIVE); CLARITY,URINE CLEAR; COLOR,URINE AMBER; GLUCOSE, URINE (UA) NEGATIVE (NEGATIVE); KETONES,URINE 1+ (NEGATIVE); LEUKOCYTE ESTERASE ,URINE 1+ (NEGATIVE); NITRITE,URINE NEGATIVE (NEGATIVE); PH,URINE 6 (5-9); PROTEIN,URINE 3+ (NEGATIVE); UROBILINOGEN,URINE 1 MG/DL (NORMAL)
[2018-12-16 08:25] LABS: BACTERIA,URINE FEW /HPF
[2018-12-16] MEDS ORDERED: SUFENTA 0.6MCG/ML BUPIVA 0.125 100 ML ONE (08:28)
[2018-12-16 08:42] LABS: AMPHETAMINE SCREEN, URINE NEGATIVE (NEGATIVE); BARBITURATE SCREEN URINE NEGATIVE (NEGATIVE); BENZODIAZEPINES SCREEN URINE NEGATIVE (NEGATIVE); CANNABINOID SCREEN, URINE NEGATIVE (NEGATIVE); COCAINE SCREEN URINE NEGATIVE (NEGATIVE); METHADONE STAT NEGATIVE (NEGATIVE); METHAMPHETAMINE SCREEN URINE S NEGATIVE (NEGATIVE); OPIATE SCREEN URINE NEGATIVE (NEGATIVE); OXYCODONE STAT NEGATIVE (NEGATIVE); PROPOXYPHENE STAT NEGATIVE (NEGATIVE); TRICYCLIC ANTIDEPRESSANTS SCRE POSITIVE (NEGATIVE)
[2018-12-16] MEDS ORDERED: LACTATED RINGERS 1,000 ML IV SCH (09:11)
[2018-12-16] MEDS ORDERED: EPIDURAL (SUFENTA 0.6MCG/ML BUPIVA 0.125%) 100 ML BAG EPI SCH (09:15)
[2018-12-16] MEDS ORDERED: METOCLOPRAMIDE INJ 10 MG/2 ML (REGLAN) IV PRN (09:15)
[2018-12-16] MEDS ORDERED: NALOXONE 0.4 MG/ML 1 ML (NARCAN) VIAL IV PRN ×2 (09:15)
[2018-12-16] MEDS ORDERED: ONDANSETRON 4 MG/2 ML (SDV) Z0FRAN IV PRN (09:15)
[2018-12-16] MEDS ORDERED: diphenhydrAMINE 50 MG/ML INJ (BENADRYL) IV PRN (09:15)
[2018-12-16] MEDS ORDERED: CATHETER FLUSH 10 ML SYR IV SCH ×2 (14:00→22:00)
[2018-12-16] MEDS ORDERED: LIDOCAINE/EPI 2% 1:200,00 (XYLOCAINE) 10 ML VIAL ONE (15:05)
--- NOTE | 2018-12-16 15:17 | NUR ---
repair started by dr olivo. ass dr olivo assessing perineum for tears and lacerations. 1521 repair completed. massaging uterus, urine noted with massage. 1522 spontaneous vaginal delivery of intact placenta by dr olivo. pitocin started as ordered wide open. dr assessing perineum for further bleeding problems and massaging uterus. ebl [address] olivo. 1525 pericare performed by this RN. ffu/2 light flow noted. .no clots expressed. 1528 vpad to perineum. 1530 underwear on assisted out of stirrups. repositioned to high fowlers. in arms. 1532 epidural off. 1533 epidural out tip intact. 1545 fresh ice water placed at bedside. ffu/1-2 light to moderate flow noted.d
[2018-12-16] MEDS ORDERED: OXYTOCIN/NORMAL SALINE 500 ML IV ONE ×2 (15:19→15:53)
[2018-12-16] MEDS ORDERED: OXYTOCIN/NORMAL SALINE 500 ML IV SCH (16:11)
[2018-12-16] MEDS ORDERED: DIBUCAINE (NUPERCAINAL) 1% OINT 30 GM TOP PRN (16:15)
[2018-12-16] MEDS ORDERED: BENZOCAINE/MENTHOL (DERMOPLAST) 56 ML CAN TP PRN (16:15)
[2018-12-16] MEDS ORDERED: WITCH HAZEL(TUCKS) 40 EA JAR TOP PRN (16:15)
[2018-12-16] MEDS ORDERED: MEASLES,MUMPS,RUBELLA 1 EA INJ SQ ONE (16:15)
[2018-12-16] MEDS ORDERED: TETANUS,DIPTH,PERTUSS P/F (BOOSTRIX) 0.5 ML VIAL IM ONE (16:15)
--- NOTE | 2018-12-16 16:16 | OB Labor & Delivery Record ---
L&D History Date of Service Date of Service: Dec 16, 2018 History Expected Date of Delivery: Dec 25, 2018 Gestational Age in Weeks: 38 Hx : 1 Hx Para: 0 Complications Events: Routine care Operative Indications (Cesarea: N/A-Vaginal Delivery Intrapartal Events: None L&D Stage1 Stage One Onset of Labor - Date: Dec 16, 2018 Monitors and Tracing Monitor Mode: External Heart Rate: 120 Monitor Accelerations: Uniform Monitor Decelerations: None Station: 0 Tariff Clerk Variability: Average (6-10) Short Term Variability: Present Presentation: Vertex Vital Signs VS - Last 72 Hours, by Label 12/16/18 12/16/18 12/16/18 12/16/18 07:25 08:20 08:35 08:50 Temp 97.7 Pulse 95 95 99 91 Resp 20 20 20 20 B/P (MAP) 152/89 (110) 145/102 (116) 130/92 (105) 152/100 (117) Pulse Ox 99 O2 Delivery Room Air Room Air Room Air Room Air 12/16/18 12/16/18 12/16/18 12/16/18 08:55 09:00 09:05 09:10 Pulse 101 99 98 100 Resp 20 20 20 20 B/P (MAP) 149/111 (124) 159/113 (128) 152/86 (108) 160/89 (112) Pulse Ox 100 99 100 100 O2 Delivery Room Air Room Air Room Air Room Air 12/16/18 12/16/18 12/16/18 12/16/18 09:15 09:20 09:25 09:30 Pulse 101 99 102 101 Resp 18 18 18 18 B/P (MAP) 130/90 (103) 121/106 (111) 126/88 (101) 147/92 (110) Pulse Ox 100 100 100 100 O2 Delivery Room Air Room Air Room Air Room Air 12/16/18 12/16/18 12/16/18 12/16/18 09:35 09:50 10:05 10:10 Pulse 91 91 89 87 Resp 18 18 18 18 B/P (MAP) 130/91 (104) 130/91 (104) 135/89 (104) 127/94 (105) Pulse Ox 100 100 100 100 O2 Delivery Room Air Room Air Room Air Room Air 8/2612/16/18 12/16/18 12/16/18 10:25 10:40 10:55 11:10 Pulse 78 97 106 84 Resp 18 18 18 18 B/P (MAP) 133/97 (109) 120/84 (96) 130/92 (105) 130/97 (108) Pulse Ox 100 100 100 100 O2 Delivery Room Air Room Air Room Air Room Air 12/16/18 11:25 Pulse 85 Resp 18 B/P (MAP) 117/77 (90) Pulse Ox 100 O2 Delivery Room Air Rupture of Membranes Spontaneous Ruture of Membrane: Yes Amniotic Membrane Rupture Time: 1104 Amniotic Membrane Fluid Desc.: Clear Vaginal Bleeding Description: Normal Show Induction/Anesthesia Epidural Cath Placement - Time: 0855 Progress/Notes Patient progressed to complete and + 2 station with no other augmentation other than AROM. L&D Stage2 Stage Two Stage II Date: Dec 16, 2018 Monitors and Tracing Monitor Mode: External Heart Rate: 120 Monitor Accelerations: Uniform Monitor Decelerations: Variable Tariff Clerk Variability: Average (6-10) Short Term Variability: Present Position: Right Occiput Anterior Presentation: Vertex Cord Descript/Complications Cord Vessel Description: 3 Vessels Complications nuchal cord reduced x 1 Delivery Type Delivery Method: Spontaneous Vaginal Anterior Shoulder: Right Episiotomy/Perineal Laceration Laceraction(s)/Extensions: Yes Episiotomy Description: Midline Degree (describe repair) midline episiotomy repaired using 3-0 and 2-0 vicryl suture in usual fashion. Condition of Delivery 1 minute Comment: 9 5 minute Comment: 9 Notes Live male weight 7lbs 7oz Condition of Condition of : Living Exam: No Observed Abnormalities Resuscitation Resuscitation: N/A - Spontaneous Resp L&D Stage3 Stage Three Stage III Date: Dec 16, 2018 Pictocin Pitocin Administration Comment: 30 mu wide open at delivery of placenta Placenta Delivery Placenta Delivery: Spontaneous Delivery Summary Summary Estimated blood loss (mL): 400 Attending at delivery: Jina Santiago DO Condition of Delivery Examined: Cervix Examined, Uterus Explored Post Hemorrhage: No Condition of Mother stable Condition of (s) stable JINA SANTIAGO DO Dec 16, 2018 16:16
[2018-12-16] MEDS: IBUPROFEN 600 MG (MOTRIN) TAB PO SCH (17:16)
--- NOTE | 2018-12-16 20:20 | NUR ---
Patient assisted up to bathroom at time. Stand by assist provided per this RN. Patient ambulated to bathroom without issue, positive void achieved. Pericare instructions provided, patient return demonstrated understanding. Patient ambulated back to bed without issue. POC reviewed, call light within reach.
[2018-12-16] MEDS: DOCUSATE SODIUM 100 MG (COLACE) CAP PO SCH (22:00)
[2018-12-17] MEDS: HYDROcodone/APAP 5 MG/325 MG (LORTAB) TAB PO PRN ×2 (00:03→08:13)
[2018-12-17] MEDS: IBUPROFEN 600 MG (MOTRIN) TAB PO SCH ×3 (00:03→12:31)
[2018-12-17 02:05] VITALS: BP 130/90
[2018-12-17 05:24] LABS: BASOPHILS % (AUTO) 0 % (0-10); EOSINOPHILS % (AUTO) 0 % (0-10); HEMATOCRIT 25 % (35-52); HEMOGLOBIN 7.9 G/DL (11.5-16.0); LYMPHOCYTES # (AUTO) 1.9 X 10^3 (1.0-4.0); LYMPHOCYTES % (AUTO) 20 % (12-44); MEAN CORPUSCULAR HEMOGLOBIN 31 PG (25-34); MEAN CORPUSCULAR HGB CONC 32 G/DL (32-36); MEAN CORPUSCULAR VOLUME 96 FL (80-99); MEAN PLATELET VOLUME 10.1 FL (7.4-10.4); MONOCYTES # (AUTO) 0.5 X 10^3 (0.0-1.0); MONOCYTES % (AUTO) 5 % (0-12); NEUTROPHILS % (AUTO) 75 % (42-75); PLATELET COUNT 188 10^3/uL (130-400); RED CELL DISTRIBUTION WIDTH 13.9 % (10.0-14.5); WHITE BLOOD COUNT 9.3 10^3/uL (4.3-11.0)
[2018-12-17 06:20] VITALS: BP 129/89
[2018-12-17] MEDS ORDERED: PRENATAL VITAMIN 1 EA TAB PO SCH (07:00)
[2018-12-17] MEDS ORDERED: FERROUS SULF 325 MG (IRON) TAB PO SCH (08:00)
--- NOTE | 2018-12-17 08:09 | Postpartum Progress Note ---
Note Note Day # 1 Subjective: Patient is without complaints. Ambulating, voiding. Tolerating a regular diet without nausea or vomiting. Normal lochia. Pain is well controlled with oral pain medications. Objective: Physical Exam: General - Alert and oriented, no apparent distress Abdomen - Soft, appropriately tender to palpation, non-distended, fundus firm at umbilicus Extremities - no edema, negative August's bilaterally Assessment: PPD 1 NVD Acute blood loss anemia Plan: Routine care. Encourage breast feeding. Encourage ambulation. Ferrous sulfate supplementation. Plan for discharge today Vitals - Labs Vital Signs - I&O Vital Signs Date Time Temp Pulse Resp B/P (MAP) Pulse Ox O2 Delivery O2 Flow Rate FiO2 12/17/18 06:20 97.7 99 18 129/89 (102) 98 Room Air 12/17/18 02:05 99.0 104 18 130/90 (103) 99 Room Air 12/16/18 22:00 98.9 99 18 128/83 (98) 98 Room Air 12/16/18 17:40 97.6 104 18 128/86 (100) Room Air 12/16/18 17:25 100 20 131/94 (106) Room Air 12/16/18 17:10 104 20 142/94 (110) Room Air 12/16/18 16:40 96 20 147/88 (107) Room Air 12/16/18 16:15 97.8 110 18 146/91 (109) Room Air 12/16/18 15:55 97.7 116 18 159/99 (119) Room Air 12/16/18 15:40 98.3 120 18 128/85 (99) Room Air 12/16/18 15:25 97.5 93 18 140/87 (104) Room Air 12/16/18 15:10 84 18 145/91 (109) Room Air 12/16/18 14:55 86 18 138/98 (111) Room Air 12/16/18 14:25 98 18 138/102 (114) Room Air 12/16/18 14:10 86 18 131/96 (108) Room Air 12/16/18 13:55 83 18 132/97 (109) Room Air 12/16/18 13:40 85 18 125/92 (103) Room Air 12/16/18 13:25 79 18 131/101 (111) Room Air 12/16/18 13:10 100 18 142/98 (113) Room Air 12/16/18 12:55 93 18 144/101 (115) Room Air 12/16/18 12:40 85 18 134/99 (111) Room Air 12/16/18 12:25 90 18 138/97 (111) Room Air 12/16/18 12:10 97.5 93 18 145/93 (110) Room Air 12/16/18 11:40 88 18 138/92 (107) Room Air 12/16/18 11:25 85 18 117/77 (90) 100 Room Air 12/16/18 11:10 84 18 130/97 (108) 100 Room Air 12/16/18 10:55 106 18 130/92 (105) 100 Room Air 12/16/18 10:40 97 18 120/84 (96) 100 Room Air 12/16/18 10:25 78 18 133/97 (109) 100 Room Air 12/16/18 10:10 87 18 127/94 (105) 100 Room Air 12/16/18 10:05 89 18 135/89 (104) 100 Room Air 12/16/18 09:50 91 18 130/91 (104) 100 Room Air 12/16/18 09:35 91 18 130/91 (104) 100 Room Air 12/16/18 09:30 101 18 147/92 (110) 100 Room Air 12/16/18 09:25 102 18 126/88 (101) 100 Room Air 12/16/18 09:20 99 18 121/106 (111) 100 Room Air 12/16/18 09:15 101 18 130/90 (103) 100 Room Air 12/16/18 09:10 100 20 160/89 (112) 100 Room Air 12/16/18 09:05 98 20 152/86 (108) 100 Room Air 12/16/18 09:00 99 20 159/113 (128) 99 Room Air 12/16/18 08:55 101 20 149/111 (124) 100 Room Air 12/16/18 08:50 91 20 152/100 (117) 99 Room Air 12/16/18 08:35 99 20 130/92 (105) Room Air 12/16/18 08:20 95 20 145/102 (116) Room Air I & O 12/17/18 07:00 Intake Total 2620 ml Balance 2620 ml Labs Laboratory Tests 12/17/18 05:02: White Blood Count 9.3, Red Blood Count 2.55L, Hemoglobin 7.9#L, Hematocrit 25L, Mean Corpuscular Volume 96, Mean Corpuscular Hemoglobin 31, Mean Corpuscular Hemoglobin Concent 32, Red Cell Distribution Width 13.9, Platelet Count 188, Mean Platelet Volume 10.1, Neutrophils (%) (Auto) 75, Lymphocytes (%) (Auto) 20, Monocytes (%) (Auto) 5, Eosinophils (%) (Auto) 0, Basophils (%) (Auto) 0, Joel trophils # (Auto) 7.0, Lymphocytes # (Auto) 1.9, Monocytes # (Auto) 0.5, Eosinophils # (Auto) 0.0, Basophils # (Auto) 0.0 JINA SANTIAGO DO Dec 17, 2018 08:09
[2018-12-17] MEDS: DOCUSATE SODIUM 100 MG (COLACE) CAP PO SCH (08:12)
--- NOTE | 2018-12-17 08:16 | Discharge Inst-Women's Service ---
Discharge Inst-Women's Serv Depart Medication/Instructions New, Converted or Re-Newed RX: RX on Chart Final Diagnosis PPD 1 NVD Acute blood loss anemia Problems Reviewed?: Yes Consults/Follow Up Additional Follow Up: Yes Orders/Referrals Dr. Santiago in 6 weeks Activity Activity: Activity as Tolerated Driving Instructions: No Driving for 1 Week NO SMOKING: NO SMOKING Nothing Inside Vagina: No Douching, No [place], No Tampons Diet Discharge Diet: No Restrictions Symptoms to Report to : Bleeding Excessive, Pain Increased, Fever Over 101 Degrees F, Vaginal Bleeding Increase, Questions/Concerns For Any Problems or Questions: Contact Your Physician JINA SANTIAGO DO Dec 17, 2018 08:16
[2018-12-17] MEDS ORDERED: DOCU100C37 PO ×2 (08:19)
[2018-12-17] MEDS ORDERED: DIBU30OI TOP ×2 (08:19)
[2018-12-17] MEDS ORDERED: FERR325T18 PO ×2 (08:19)
[2018-12-17] MEDS ORDERED: IBUP-844 PO ×2 (08:19)
[2018-12-17] MEDS ORDERED: ACHD5005 PO ×2 (08:19)
[2018-12-17] MEDS ORDERED: Benzocaine/Menthol TP ×2 (08:19)
[2018-12-17 10:59] VITALS: BP 123/83
[2018-12-17 12:33] VITALS: BP 135/86
--- NOTE | 2018-12-17 17:45 | NUR ---
KRISTINA TABARES demonstrates understanding of discharge instructions and accurately returns instructions upon questioning. Copy of Post-Discharge Instructions and Medication Discharge Instructions given to patient. KRISTINA TABARES is able to manage continuing needs after discharge. Patients belongings returned to patient. Skin dry and intact; no breakdown noted. Patient discharged from [facility]- on 12/17/18 at 1745. KRISTINA TABARES left floor via ambulation, accompanied by women services staff.
--- NOTE | 2018-12-18 15:32 | Anesthesia-Regional Post-Op ---
Regional Patient Condition Mental Status: Alert, Oriented x3 Circulation: Same as Pre-Op Headache: Absent Sensation: Full Recovery Motor Block: Absent Post Op Complications Complications None Follow Up Care/Instructions Patient Instructions None needed. Anesthesia/Patient Condition Patient is already discharged to home. I just spoke with her by telephone and she is doing well. She is having no difficulty ambulating. She is slightly sore in her back, which is to be expected. We will be available if needed. TIMMY DEGROOT DO Dec 18, 2018 15:32
== END 2018-12-17 17:45 | disposition home or self-care (01) | DRG 806 ==
LOC: WSo 07:00 → LDRP 07:01 → WSo 07:45 → LDRP 19:51
PROVIDERS: ADMIT Obstetrics & Gynecology; ATTEND Obstetrics & Gynecology
PROC: 10E0XZZ Delivery of Products of Conception, External Approach (ICD-10-PCS; principal; 2018-12-16)
PROC: 0W8NXZZ Division of Female Perineum, External Approach (ICD-10-PCS; 2018-12-16)
DX: O69.81X0 Labor and delivery complicated by cord around neck, without compression, not applicable or unspecified (principal); O90.81 Anemia of the puerperium; D62 Acute posthemorrhagic anemia; Z37.0 Single live birth; Z3A.38 38 weeks gestation of pregnancy
CPT/HCPCS: 36415; 80306; 81000; 85025; 86850; 86900; 86901; 87077; 87088; 99212

== ENCOUNTER 2019-05-11 17:29 | Emergency (ER) | payer MEDICAID ==
[~2019-05-11 17:29] MED LIST changes: +Benzocaine/Menthol TP; +DIBU30OI TOP; +DOCU100C37 PO; +FERR325T18 PO; +IBUP-844 PO
[2019-05-11] MEDS ORDERED: NS IV 1000 ML 1,000 ML IV SCH ×2 (17:34→17:59)
--- NOTE | 2019-05-11 18:19 | NUR ---
pt refusing iv
--- NOTE | 2019-05-11 18:40 | NUR ---
Pt's mother here at this time. Mother wants to take pt home. Pt requested to leave AMA.
--- NOTE | 2019-05-11 18:52 | ED General ---
General Stated Complaint: OD Source of Information: Patient Exam Limitations: No Limitations History of Present Illness Date Seen by Provider: May 12, 2019 Time Seen by Provider: 17:35 Initial Comments This 24-year-old woman presents to the emergency room via EMS with vague complaints of headache, heart racing, ringing in her ears, paranoia, and generalized aching. She started using methamphetamines about a month ago when she lost a child. She last used around 13:00 today. She used by snorting. She states her high feels much different than in the past and she is wondering if there was something else in the drug. She notes her urine has been dark and she thinks she is dehydrated. She denies suicidal or homicidal ideation. Allergies and Home Medications Allergies Coded Allergies: tramadol (Verified Allergy, Unknown, 02/13/18) Home Medications Dibucaine 30 Gm Oint, 0 GM TOP UD PRN for PAIN- SEE INSTRUCTIONS Prescribed by: JINA SANTIAGO on 12/17/18818 Docusate Sodium 100 Mg Capsule, 100 MG PO BID PRN for CONSTIPATION-1ST LINE Prescribed by: JINA SANTIAGO on 12/17/18818 Ferrous Sulfate 325 Mg Tablet, 325 MG PO BID Prescribed by: JINA SANTIAGO on 12/17/18818 Hydrocodone Bit/Acetaminophen 1 Tab Tab, 1 TAB PO Q4H PRN for PAIN-MODERATE Prescribed by: JINA SANTIAGO on 12/17/18818 Ibuprofen 600 Mg Tablet, 600 MG PO Q6H Prescribed by: JINA SANTIAGO on 12/17/18818 Vit W-Ca,Fe,FA(<1 mg) 1 Each Tablet, 1 EACH PO DAILY, (Reported) [Benzocaine/Menthol] 56 ML AEROSOL, 0 ML TP UD PRN for PAIN- SEE INSTRUCTIONS EXTERNAL USE ONLY Prescribed by: JINA SANTIAGO on 12/17/18818 Patient Home Medication List Home Medication List Reviewed: Yes Review of Systems Review of Systems Constitutional: see HPI EENTM: see HPI Respiratory: no symptoms reported Cardiovascular: see HPI Gastrointestinal: no symptoms reported Genitourinary: see HPI : No Musculoskeletal: see HPI Skin: no symptoms reported Psychiatric/Neurological: See HPI Hematologic/Lymphatic: No Symptoms Reported Immunological/Allergic: no symptoms reported Past Febmkki-Dwlnfv-Arrklk Hx Past Med/Social Hx: Reviewed and Corrections made Patient Social History Recreational Drug Use: Yes Drug of Choice: methamphetamines Type Used: Cigarettes Former Smoker, Quit: Apr 23, 2017 Recent Foreign Travel: No Contact w/Someone Who Travel: No Recent Hopitalizations: No Immunizations Up To Date Tetanus Booster (TDap): Less than 5yrs PED Vaccines UTD: Yes Date of Influenza Vaccine: Mar 07, 2018 Seasonal Allergies Seasonal Allergies: No Past Medical History Surgeries: No Respiratory: No Cardiac: No Irregular Heartbeat Neurological: No Reproductive Disorders: No Female Reproductive Disorders: Denies Sexually Transmitted Disease: No Genitourinary: No Gastrointestinal: Yes Gastroesophageal Reflux Musculoskeletal: Yes Fibromyalgia Endocrine: No HEENT: No Cancer: No Psychosocial: Yes Bipolar Integumentary: No Blood Disorders: No Family Medical History Diabetes Physical Exam Vital Signs Capillary Refill : Height, Weight, BMI Height: 5'8.00" Weight: 172lbs. 0.6oz. [id number]; 26.2 BMI Method:Stated General Appearance: WD/WN, Anxious, Thin HEENT: PERRL/EOMI, Normal ENT Inspection Neck: Normal Inspection Respiratory: Lungs Clear, Normal Breath Sounds, No Accessory Muscle Use, No Respiratory Distress Cardiovascular: No Edema, No Murmur, Tachycardia (mild) Gastrointestinal: Normal Bowel Sounds, Soft, Tenderness (suprapubic) Extremity: Normal Inspection, No Pedal Edema Neurologic/Psychiatric: Alert, Oriented x3, No Motor/Sensory Deficits, process tech II- XII Norm as Tested, Other (anxious, paranoid) Skin: Normal Color, Warm/Dry Progress/Results/Core Measures Suspected Sepsis SIRS Temperature: Pulse: Respiratory Rate: Blood Pressure / Mean: Results/Orders Micro Results Microbiology 05/11/19 Influenza Types A,B Antigen (LAYLA) - Final, Complete My Orders Orders - DION ARECHIGA MD Ed Iv/Invasive Line Start (05/11/19 17:59) Ns Iv 1000 Ml (Sodium Chloride 0.9%) (05/11/19 17:59) Ekg Tracing (05/11/19 18:09) Influenza A And B Antigens (05/11/19 18:10) Vital Signs/I&O Capillary Refill : Progress Note : Progress Note Discussed plan with patient. She initially consented to lab work and urinalysis as well as IV hydration. She declined medication to help with her anxiousness and paranoia. When the nurse came to start her IV, patient elected to leave AGAINST MEDICAL ADVICE. She left the ER with her mother. ECG Initial ECG Impression Date: May 11, 2019 Initial ECG Impression Time: 17:59 Initial ECG Rate: 88 Initial ECG Rhythm: Normal Sinus Initial ECG Intervals: Normal Initial ECG Impression: Normal Comment Normal sinus rhythm with no ST elevation or depression. No abnormal intervals or axis deviation. Departure Impression Primary Impression: Methamphetamine abuse Additional Impression: Anxiety Disposition: 07 AGAINST MEDICAL ADVICE Condition: Against Medical Advice Departure-Patient Inst. Referrals: NO,LOCAL PHYSICIAN (PCP/Family) Primary Care Physician DION ARECHIGA MD May 11, 2019 18:52
== END 2019-05-11 18:54 | disposition left against medical advice (07) ==
LOC: EDUNIT# 17:29 → ER 17:31
DX: F15.10 Other stimulant abuse, uncomplicated (principal); F41.9 Anxiety disorder, unspecified; K21.9 Gastro-esophageal reflux disease without esophagitis; M79.7 Fibromyalgia; F31.9 Bipolar disorder, unspecified; Z88.5 Allergy status to narcotic agent; Z87.891 Personal history of nicotine dependence
CPT/HCPCS: 87804; 93005

== ENCOUNTER 2019-06-28 03:25 | Emergency (ER) | payer MEDICAID ==
[~2019-06-28] VITALS: Ht 172.7 cm; Wt 52.1 kg
[2019-06-28 04:08] VITALS: BP 129/94
--- NOTE | 2019-06-28 04:23 | ED General ---
General Chief Complaint: Neurological Problems Stated Complaint: DIFFERENCE IN EYE PRESSURE Nursing Triage Note: WOKE UP AT 0030 HAVING PAIN AND PRESSURE IN HER RIGHT EYE, HEAD AND RIGHT SHOULDER. STATES SHE FEELS WEAKER ON HER RIGHT SIDE. Nursing Sepsis Screen: No Definite Risk Source of Information: Patient, Old Records Exam Limitations: No Limitations History of Present Illness Date Seen by Provider: Jun 28, 2019 Time Seen by Provider: 03:40 Initial Comments This 24-year-old young lady presents to the emergency room with vague neurologic complaints. She notes difficulty focusing with her right eye. However, she recently lost her glasses. She reports waking up at 00:30 after having slept since the afternoon. She now feels "weird". She complains of leg pains and paresthesias. She experienced the loss of a young son last year and in her grief started using methamphetamines. Her last use was a couple days ago. She had an ER visit last month related to methamphetamine use as well. On exam she has no focal deficits and her uncorrected vision is 20/40 in each eye individually and with both eyes together. She complains of fighting a superficial infection of the left earlobe which she is successfully treating with topical antibiotics. She tends to pick at that earlobe. Patient was concerned she was having a stroke because of the complaints described above. Patient's primary care providers Julia Bruno. Allergies and Home Medications Allergies Coded Allergies: tramadol (Verified Allergy, Unknown, 02/13/18) Home Medications Dibucaine 30 Gm Oint, 0 GM TOP UD PRN for PAIN- SEE INSTRUCTIONS Prescribed by: JINA SANTIAGO on 12/17/18818 Docusate Sodium 100 Mg Capsule, 100 MG PO BID PRN for CONSTIPATION-1ST LINE Prescribed by: JINA SANTIAGO on 12/17/18818 Ferrous Sulfate 325 Mg Tablet, 325 MG PO BID Prescribed by: JINA SANTIAGO on 12/17/18818 Hydrocodone Bit/Acetaminophen 1 Tab Tab, 1 TAB PO Q4H PRN for PAIN-MODERATE Prescribed by: JINA SANTIAGO on 12/17/18818 Ibuprofen 600 Mg Tablet, 600 MG PO Q6H Prescribed by: JINA SANTIAGO on 12/17/18818 Vit W-Ca,Fe,FA(<1 mg) 1 Each Tablet, 1 EACH PO DAILY, (Reported) [Benzocaine/Menthol] 56 ML AEROSOL, 0 ML TP UD PRN for PAIN- SEE INSTRUCTIONS EXTERNAL USE ONLY Prescribed by: JINA SANTIAGO on 12/17/18 0819 Patient Home Medication List Home Medication List Reviewed: Yes Review of Systems Review of Systems Constitutional: weight loss EENTM: see HPI Respiratory: no symptoms reported Cardiovascular: no symptoms reported Gastrointestinal: no symptoms reported Genitourinary: no symptoms reported : No Musculoskeletal: no symptoms reported Skin: see HPI Psychiatric/Neurological: See HPI Hematologic/Lymphatic: No Symptoms Reported Immunological/Allergic: no symptoms reported Past Mxqyqpz-Abcxlw-Joqook Hx Past Med/Social Hx: Reviewed Nursing Past Med/Soc Hx Patient Social History Alcohol Use: Denies Use Recreational Drug Use: Yes (DENIES) Drug of Choice: methamphetamines Smoking Status: Current Everyday Smoker Type Used: Cigarettes Former Smoker, Quit: Apr 23, 2017 Recent Foreign Travel: No Contact w/Someone Who Travel: No Recent Infectious Disease Expo: No Recent Hopitalizations: No Physical Abuse: No Sexual Abuse: No Mistreated: No Fear: No Immunizations Up To Date Tetanus Booster (TDap): Unknown PED Vaccines UTD: Yes Date of Influenza Vaccine: Mar 07, 2018 Seasonal Allergies Seasonal Allergies: No Past Medical History Surgeries: No Respiratory: No Cardiac: No Irregular Heartbeat Neurological: No : No Last Menstrual Period: Jun 15, 2019 Reproductive Disorders: No Female Reproductive Disorders: Denies Sexually Transmitted Disease: No Genitourinary: No Gastrointestinal: Yes Gastroesophageal Reflux Musculoskeletal: Yes Fibromyalgia Endocrine: No HEENT: No Cancer: No Psychosocial: Yes Bipolar Integumentary: No Blood Disorders: No Family Medical History Diabetes Physical Exam Vital Signs Vital Signs - First Documented 06/28/19 03:30 Temp 36.3 Pulse 94 Resp 18 B/P (MAP) 132/102 (112) Pulse Ox 100 Capillary Refill : Less Than 3 Seconds Height, Weight, BMI Height: 5'8.00" Weight: 172lbs. 0.6oz. [id number]; 17.00 BMI Method:Stated General Appearance: No Apparent Distress, WD/WN, Thin Eyes: Bilateral Eye Other (Acuity test was performed and vision was 20/40 in each eye individually and collectively) HEENT: PERRL/EOMI, TMs Normal, Pharynx Normal, Other (Excoriated skin on the left earlobe) Neck: Normal Inspection Respiratory: Lungs Clear, Normal Breath Sounds, No Accessory Muscle Use, No Respiratory Distress Cardiovascular: Regular Rate, Rhythm, No Edema, No Murmur Gastrointestinal: Non Tender, Soft Extremity: Normal Inspection, No Pedal Edema Neurologic/Psychiatric: Alert, Oriented x3, No Motor/Sensory Deficits, Normal Mood/Affect, billing coordinator II-XII Norm as Tested, Other (Normal finger to nose, heel to chavira, and gait) Skin: Normal Color, Warm/Dry Progress/Results/Core Measures Suspected Sepsis Recent Fever Within 48 Hours: No Infection Criteria Present: None New/Unexplained Altered Menta: No Sepsis Screen: No Definite Risk SIRS Temperature: Pulse: 92 Respiratory Rate: 18 Blood Pressure 129 /94 Mean: 106 Results/Orders Vital Signs/I&O 06/28/19 06/28/19 06/28/19 03:30 04:08 04:32 Temp 36.3 36.3 36.5 Pulse 94 92 99 Resp 18 18 18 B/P (MAP) 132/102 (112) 129/94 (106) 118/91 (106) Pulse Ox 100 100 100 Capillary Refill : Less Than 3 Seconds Blood Pressure Mean: 106 Progress Note : Progress Note Patient had no focal deficits or other significant exam findings. Patient largely needed reassurance. We spent a significant amount of time in counseling regarding appropriate grief management and coping mechanisms. Patient intends to move in with her aunt to flee negative influences. She intends to seek help with substance abuse and seek out counseling. The majority of time dedicated to this visit was in counseling. Patient has been treated for mental health disorders in the past including bipolar disorder. She was encouraged to talk this over with her primary care provider and explore the possibility of medicating again in the future to help her cope with grief. Departure Impression Primary Impression: Paresthesia Additional Impressions: Vision problems Methamphetamine use Grief at loss of child Disposition: 01 HOME, SELF-CARE Condition: Stable Departure-Patient Inst. Referrals: NO,LOCAL PHYSICIAN (PCP/Family) Primary Care Physician Patient Instructions: When Your Child Dies Add. Discharge Instructions: Follow-up with your primary care provider. Discussed possible treatment of mental health disorders and referrals to counseling and or substance abuse treatment. Return to care if you have worsening symptoms. If you continue to have vision issues, please follow-up with an eye doctor as soon as possible. All discharge instructions reviewed with patient and/or family. Voiced understanding. DION ARECHIGA MD Jun 28, 2019 04:23
[2019-06-28 04:32] VITALS: BP 118/91
--- OUTSIDE RECORDS SUMMARY | 2019-07-01 21:56 | XMS REPORT | Continuity of Care Document ---
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 F33.1 MAJOR DEPRESSIVE DISORDER, RECURRENT, MODERATE 02/17/2019 Amaury Ortiz F41.1 GENERALIZED ANXIETY DISORDER 03/26/2019 Doe Valero F43.20 ADJUSTMENT DISORDER, UNSPECIFIED 03/26/2019 Doe Valero F51.02 ADJUSTMENT INSOMNIA 03/26/2019 Doe Valero M13.89 OTHER SPECIFIED ARTHRITIS, MULTIPLE SITES 03/26/2019 Doe Valero R23.9 UNSPECIFIED SKIN CHANGES 03/26/2019 Amaury Ortiz F43.20 ADJUSTMENT DISORDER, UNSPECIFIED 03/26/2019 Amaury Ortiz F51.02 ADJUSTMENT INSOMNIA 03/26/2019 Amaury Ortiz M13.89 OTHER SPECIFIED ARTHRITIS, MULTIPLE SITES 03/26/2019 Amaury Ortiz R23.9 UNSPECIFIED SKIN CHANGES 05/08/2019 Doe Valero H93.13 TINNITUS, BILATERAL 05/08/2019 Amaury Ortiz H93.13 TINNITUS, BILATERAL 05/14/2019 HAWK WEBER, DION T Ot 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 ABUSE, UNCOMPLICATED 05/14/2019 HAWK WEBER, DION Pino Ot F31.9 BIPOLAR DISORDER, UNSPECIFIED 05/14/2019 HAWK WEBER, DION Pino Ot F41.9 ANXIETY DISORDER, UNSPECIFIED 05/14/2019 HAWK WEBER, DION Pino Ot K21.9 GASTRO-ESOPHAGEAL REFLUX DISEASE WITHOUT 05/14/2019 HAWK WEBER, DION Pino Ot M79.7 FIBROMYALGIA 05/14/2019 HAWK WEBER, DION Pino Ot 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 NICOTINE DEPENDENCE 05/14/2019 HAWK WEBER, DION Pino Ot Z88.5 ALLERGY STATUS TO NARCOTIC AGENT STATUS 05/26/2019 Doe Valero D53.9 NUTRITIONAL ANEMIA, UNSPECIFIED 05/26/2019 Doe Valero F33.9 MAJOR DEPRESSIVE DISORDER, RECURRENT, UNSPECIFIED 05/26/2019 Doe Valero J01.90 ACUTE SINUSITIS, UNSPECIFIED 05/26/2019 Doe Valero M32.9 SYSTEMIC LUPUS ERYTHEMATOSUS, UNSPECI 05/26/2019 Doe Valero M54.5 LOW BACK PAIN 05/26/2019 Doe Valero M79.7 FIBROMYALGIA 05/26/2019 Doe Valero N73.9 FEMALE PELVIC INFLAMMATORY DISEASE, UNSPECIFIED 05/26/2019 Doe Valero R10.2 PELVIC AND PERINEAL PAIN 05/26/2019 Doe Valero R30.0 DYSURIA 05/26/2019 Doe Valero R51 HEADACHE 05/26/2019 Doe Valero Z3A.20 20 WEEKS GESTATION OF 05/26/2019 Doe Valero Z72.0 TOBACCO USE 06/14/2019 Amaury Ortiz D53.9 NUTRITIONAL ANEMIA, UNSPECIFIED 06/14/2019 Amaury Ortiz F33.9 MAJOR DEPRESSIVE DISORDER, RECURRENT, UNSPECIFIED 06/14/2019 Amaury Ortiz J01.90 ACUTE SINUSITIS, UNSPECIFIED 06/14/2019 Amaury Ortiz M32.9 SYSTEMIC LUPUS ERYTHEMATOSUS, UNSPECI 06/14/2019 Amaury Ortiz M54.5 LOW BACK PAIN 06/14/2019 Amaury Ortiz M79.7 FIBROMYALGIA 06/14/2019 Amaury Ortiz N73.9 FEMALE PELVIC INFLAMMATORY DISEASE, UNSPECIFIED 06/14/2019 Amaury Ortiz R10.2 PELVIC AND PERINEAL PAIN 06/14/2019 Amaury Ortiz R30.0 DYSURIA 06/14/2019 Amaury Ortiz R51 HEADACHE 06/14/2019 Amaury Ortiz Z3A.20 20 WEEKS GESTATION OF 06/14/2019 Amaury Ortiz Z72.0 TOBACCO USE Procedures Code Description [place] [address] [facility] 21615 Marielena [facility] Ayou[facility], Sussy 12/07/2016 08176 [facility], [facility] 12/07/2016 38776 Mariel[facility], [facility] 12/14/2016 H2011 Poppy is Evaluation Maryann Vazquez 12/17/2016 31219 [facility], [place] 12/21/2016 63733 Mariel[facility], [facility]ussy 12/21/2016 07964 Mariel[facility], [facility]ussy 12/28/2016 11290 Marielena [facility]you[facility], Sussy 12/28/2016 24598 [facility], [facility]ussy 01/11/2017 00206 [facility], [facility] 01/11/2017 H2011 Poppy is Evaluation Renetta Baires 01/21/2017 H2011 Poppy is Intervention - Advanced Francesca Zafar 01/24/2017 H2011 Poppy is Intervention - Advanced Francesca Zafar 01/24/2017 71016 [facility], [facility]ussy 01/25/2017 27989 [facility], [facility]ussy 01/25/2017 53632 OFFI CE/OUTPATIENT VISIT, Toy Harman 02/06/2017 08256 OFFI CE/OUTPATIENT VISIT, Toy Harman 02/06/2017 39288 OFFI CE/OUTPATIENT VISIT, Dewayne Salamanca 03/22/2017 88241 OFFI CE/OUTPATIENT VISIT, LEONOR WillisDewayne 03/22/2017 69556 [facility] Mega [facility] 04/12/2017 84746 Marielena [facility] Sussy yAoub 04/12/2017 29725 RICARDO ECTION OF VENOUS BLOOD BY VENIPUNCTURE 06/06/2017 70432 COMP LETE (CBC), AUTOMATED WITH DIFFERENTIAL 06/06/2017 09497 INIT IAL PREVENTIVE CARE, NEW PT, 18-39YR 06/06/2017 12261 RICARDO ECTION OF VENOUS BLOOD BY VENIPUNCTURE 06/18/2017 26992 COMP LETE (CBC), AUTOMATED WITH DIFFERENTIAL 06/18/2017 43733 OFFI CE VISIT - ESTABLISHED PT, LEVEL 3 06/18/2017 68961 OFFI CE VISIT - ESTABLISHED PT, LEVEL 3 07/19/2017 [id number] DI VISION OF FEMALE PERINEUM, EXTERNAL AP 12/16/2018 [id number] DE LIVERY OF PRODUCTS OF CONCEPTION, EXTE 12/16/2018 Results Test Result Range CBC W/DIFF - 07/14/15 22:15 EOSINOPHIL # 0.2 k/cumm 0.1-0.5 EOSINOPHIL % 2 % 2-4 GRANULOCYTE # 4.1 k/cumm 2.0-9.0 GRANULOCYTE % 52 % 50-75 LYMPHOCYTE # 3.1 k/cumm 1.0-4.0 LYMPHOCYTE % 39 % 20-30 MEAN CELL HGB 33.7 pg 27.0-33.0 MEAN CELL HGB CONCENTRATION 33.1 g/dL 32 .0-37.0 MEAN CELL VOLUME 101.9 fl 80.0-100.0 MONOCYTE # 0.5 k/cumm 0.1-1.0 MONOCYTE % 7 % 4-6 RED BLOOD CELL 3.62 m/cumm 4.00-6.00 RED CELL DISTRIBUTION WIDTH 12.3 % 11 .0-15.6 WHITE BLOOD CELL 8.0 k/cumm 5.0-10.0 HEMOGLOBIN 12.2 gm/dL 12.0-16.0 HEMATOCRIT 36.9 % 37.0-47.0 PLATELET COUNT 213 k/cumm 150-450 SED RATE WESTERGREN - 07/14/15 22:15 SED RATE WESTERGREN 12 mm/hr 0-20 METABOLIC PANEL, COMPREHN - 07/14/15 22: 15 POTASSIUM 4.1 mmol/L 3.5-5.3 EST GFR (MDRD) > 60 mL/min > 59 ANION GAP 6 mmol/L 5-15 EST CrCl (CG) > 60 mL/min > 59 GLUCOSE 96 mg/dL 70-99 CALCIUM 9.2 mg/dL 8.5-10.1 BLOOD UREA NITROGEN 16 mg/dL 7-20 CREATININE 0.7 mg/dL 0.6-1.0 SODIUM 141 mmol/L 135-148 CHLORIDE 105 mmol/L 98-110 AST/SGOT 18 Units/L 10-37 ALT/SGPT 16 Units/L < 66 CARBON DIOXIDE 30 mmol/L 21-32 TOTAL PROTEIN 8.1 gm/dL 6.4-8.2 ALBUMIN 4.5 gm/dL 3.4-5.0 BILI TOTAL 0.2 mg/dL 0.0-1.0 ALKALINE PHOSPHATASE TOTAL 64 IU/L 45- 117 C REACTIVE PROTEIN - 07/14/15 22:15 C REACTIVE PROTEIN < 0.2 mg/dL 0.00-0.90 UR TEST - 07/14/15 22:19 UR TEST NEGATIVE NEGATIVE URINALYSIS, ROUTINE - 07/14/15 22:19 UA LEUKOCYTE ESTERASE DIPSTICK TRACE NEGATIVE UA NITRITE DIPSTICK NEGATIVE NEGATIVE UA PROTEIN DIPSTICK TRACE NEGATIVE UA GLUCOSE DIPSTICK NEGATIVE NEGATIVE UA KETONE DIPSTICK NEGATIVE NEGATIVE UA UROBILINOGEN DIPSTICK NORMAL FATIMAH L UA BILIRUBIN DIPSTICK 2+ NEGATIVE UA BLOOD DIPSTICK 4+ NEGATIVE UA SPECIFIC GRAVITY 1.025 1.015-1.02 5 UR PH 6.0 5.0-7.0 UA MICROSCOPIC - 07/14/15 22:19 UA BACTERIA 1+ NEGATIVE UA EPITHELIAL CELLS 1+ epi/hpf 0 - 1+ UA MUCUS 1+ NEG TO 1+ UA RBC 20-50 rbc/hpf 0 - 3 UA VOLUME FOR EXAM 12.0 mL (12mL STD) UA WBC 2-5 wbc/hpf 0 - 5 UR TEST - 08/01/15 22:10 UR TEST NEGATIVE NEGATIVE URINALYSIS, ROUTINE - 08/01/15 22:10 UA LEUKOCYTE ESTERASE DIPSTICK TRACE NEGATIVE UA NITRITE DIPSTICK NEGATIVE NEGATIVE UA PROTEIN DIPSTICK TRACE NEGATIVE UA GLUCOSE DIPSTICK NEGATIVE NEGATIVE UA KETONE DIPSTICK NEGATIVE NEGATIVE UA UROBILINOGEN DIPSTICK NORMAL FATIMAH L UA BILIRUBIN DIPSTICK 3+ NEGATIVE UA BLOOD DIPSTICK NEGATIVE NEGATIVE UA SPECIFIC GRAVITY 1.015 1.015-1.02 5 UR PH 6.5 5.0-7.0 UA MICROSCOPIC - 08/01/15 22:10 UA BACTERIA 2+ NEGATIVE UA EPITHELIAL CELLS 2+ epi/hpf 0 - 1+ UA MUCUS 2+ NEG TO 1+ UA RBC 0-3 rbc/hpf 0 - 3 UA VOLUME FOR EXAM 12.0 mL (12mL STD) UA WBC 2-5 wbc/hpf 0 - 5 D-DIMER QUANT - 12/22/15 17:15 D-DIMER QUANT < 150 ng/mL 0-229 CBC W/DIFF - 04/04/16 12:38 EOSINOPHIL # 0.1 k/cumm 0.1-0.5 EOSINOPHIL % 1 % 2-4 GRANULOCYTE # 4.8 k/cumm 2.0-9.0 GRANULOCYTE % 62 % 50-75 LYMPHOCYTE # 2.4 k/cumm 1.0-4.0 LYMPHOCYTE % 31 % 20-30 MEAN CELL HGB 34.5 pg 27.0-33.0 MEAN CELL HGB CONCENTRATION 33.1 g/dL 32 .0-37.0 MEAN CELL VOLUME 104.2 fl 80.0-100.0 MONOCYTE # 0.5 k/cumm 0.1-1.0 MONOCYTE % 6 % 4-6 RED BLOOD CELL 3.83 m/cumm 4.00-6.00 RED CELL DISTRIBUTION WIDTH 12.1 % 11 .0-15.6 WHITE BLOOD CELL 7.8 k/cumm 5.0-10.0 HEMOGLOBIN 13.2 gm/dL 12.0-16.0 HEMATOCRIT 39.9 % 37.0-47.0 PLATELET COUNT 309 k/cumm 150-450 URINALYSIS, ROUTINE - 04/04/16 12:38 UA LEUKOCYTE ESTERASE DIPSTICK TRACE NEGATIVE UA NITRITE DIPSTICK NEGATIVE NEGATIVE UA PROTEIN DIPSTICK 1+ NEGATIVE UA GLUCOSE DIPSTICK NEGATIVE NEGATIVE UA KETONE DIPSTICK NEGATIVE NEGATIVE UA UROBILINOGEN DIPSTICK NORMAL FATIMAH L UA BILIRUBIN DIPSTICK NEGATIVE NEGATIVE UA BLOOD DIPSTICK NEGATIVE NEGATIVE UA SPECIFIC GRAVITY 1.025 1.015-1.02 5 UR PH 5.0 5.0-7.0 UA MICROSCOPIC - 04/04/16 12:38 UA BACTERIA 1+ NEGATIVE UA EPITHELIAL CELLS 2+ epi/hpf 0 - 1+ UA MUCUS 3+ NEG TO 1+ UA VOLUME FOR EXAM 12.0 mL (12mL STD) UA WBC 0-1 wbc/hpf 0 - 5 UR TEST - 04/04/16 12:38 UR TEST NEGATIVE NEGATIVE METABOLIC PANEL, COMPREHN - 04/04/16 12: 38 POTASSIUM 3.5 mmol/L 3.5-5.3 EST GFR (MDRD) > 60 mL/min > 59 ANION GAP 9 mmol/L 5-15 EST CrCl (CG) > 60 mL/min > 59 GLUCOSE 79 mg/dL 70-99 CALCIUM 9.2 mg/dL 8.5-10.1 BLOOD UREA NITROGEN 14 mg/dL 7-20 CREATININE 0.7 mg/dL 0.6-1.0 SODIUM 141 mmol/L 135-148 CHLORIDE 103 mmol/L 98-110 AST/SGOT 12 Units/L 10-37 ALT/SGPT 16 Units/L < 66 CARBON DIOXIDE 29 mmol/L 21-32 TOTAL PROTEIN 8.2 gm/dL 6.4-8.2 ALBUMIN 4.6 gm/dL 3.4-5.0 BILI TOTAL 0.3 mg/dL 0.0-1.0 ALKALINE PHOSPHATASE TOTAL 55 IU/L 45- 117 LIPASE - 04/04/16 12:38 LIPASE 117 Units/L 73-393 CBC W/DIFF - 09/27/16 20:13 EOSINOPHIL # 0.1 k/cumm 0.1-0.5 EOSINOPHIL % 1 % 2-4 GRANULOCYTE # 3.5 k/cumm 2.0-9.0 GRANULOCYTE % 47 % 50-75 LYMPHOCYTE # 3.1 k/cumm 1.0-4.0 LYMPHOCYTE % 42 % 20-30 MEAN CELL HGB 33.8 pg 27.0-33.0 MEAN CELL HGB CONCENTRATION 32.8 g/dL 32 .0-37.0 MEAN CELL VOLUME 103.0 fl 80.0-100.0 MONOCYTE # 0.7 k/cumm 0.1-1.0 MONOCYTE % 10 % 4-6 RED BLOOD CELL 3.61 m/cumm 4.00-6.00 RED CELL DISTRIBUTION WIDTH 11.9 % 11 .0-15.6 WHITE BLOOD CELL 7.5 k/cumm 5.0-10.0 HEMOGLOBIN 12.2 gm/dL 12.0-16.0 HEMATOCRIT 37.2 % 37.0-47.0 PLATELET COUNT 299 k/cumm 150-450 CHEM/HEM PROFILE-BEDSIDE - 09/27/16 20:2 0 POTASSIUM 3.8 mmol/L 3.5-5.3 METHOD Bedside ANION GAP 19 mmol/L 10-20 METHOD Bedside GLUCOSE 110 mg/dL 70-99 BLOOD UREA NITROGEN 14 mg/dL 7-20 CREATININE 0.7 mg/dL 0.6-1.0 HEMOGLOBIN 12.6 gm/dL 12.0-16.0 HEMATOCRIT 37.0 % 37.0-47.0 SODIUM 143 mmol/L 135-148 CHLORIDE 104 mmol/L 98-110 CARBON DIOXIDE 25 mmol/L 21-32 CALCIUM IONIZED 4.8 mg/dL 4.5-5.3 UR TEST - 09/27/16 20:30 UR TEST NEGATIVE NEGATIVE URINALYSIS, ROUTINE - 09/27/16 20:30 UA LEUKOCYTE ESTERASE DIPSTICK 1+ NEGATIVE UA NITRITE DIPSTICK NEGATIVE NEGATIVE UA PROTEIN DIPSTICK TRACE NEGATIVE UA GLUCOSE DIPSTICK NEGATIVE NEGATIVE UA KETONE DIPSTICK NEGATIVE NEGATIVE UA UROBILINOGEN DIPSTICK NORMAL FATIMAH L UA BILIRUBIN DIPSTICK NEGATIVE NEGATIVE UA BLOOD DIPSTICK 4+ NEGATIVE UA SPECIFIC GRAVITY 1.015 1.015-1.02 5 UR PH 8.0 5.0-7.0 UA MICROSCOPIC - 09/27/16 20:30 UA AMORPHOUS SEDIMENT 4+ UA BACTERIA 2+ NEGATIVE UA EPITHELIAL CELLS 1+ epi/hpf 0 - 1+ UA MUCUS 2+ NEG TO 1+ UA RBC 0-3 rbc/hpf 0 - 3 UA VOLUME FOR EXAM 12.0 mL (12mL STD) UA WBC 5-10 wbc/hpf 0 - 5 UR DRUGS OF ABUSE SCREEN - 12/16/16 14:3 7 UR AMPHETAMINES SCREEN NEG (<1000 ng/mL) NEGATIVE UR BARBITURATE SCREEN NEG (< 200 ng/mL) NEGATIVE DRUGS OF ABUSE SCREEN COMMENT UR OPIATES SCREEN NEG (< 300 ng/mL) NE GATIVE UR PHENCYCLIDINE (PCP) SCREEN NEG (< 25 ng/mL) NEGATIVE UR CANNABINOIDS (THC) SCREEN NEG (< 50 ng/mL) NEGATIVE UR COCAINE METABOLITE SCREEN NEG (< 300 ng/mL) NEGATIVE UR METHADONE SCREEN NEG (< 300 ng/mL) NEGATIVE UR BENZODIAZEPINE SCREEN NEG (< 200 ng/mL) NEGATIVE URINALYSIS, ROUTINE - 12/16/16 14:37 UA LEUKOCYTE ESTERASE DIPSTICK TRACE NEGATIVE UA NITRITE DIPSTICK NEGATIVE NEGATIVE UA PROTEIN DIPSTICK 1+ NEGATIVE UA GLUCOSE DIPSTICK NEGATIVE NEGATIVE UA KETONE DIPSTICK 2+ NEGATIVE UA UROBILINOGEN DIPSTICK NORMAL FATIMAH L UA BILIRUBIN DIPSTICK NEGATIVE NEGATIVE UA BLOOD DIPSTICK NEGATIVE NEGATIVE UA SPECIFIC GRAVITY 1.020 1.015-1.02 5 UR PH 5.0 5.0-7.0 UA MICROSCOPIC - 12/16/16 14:37 UA BACTERIA 3+ NEGATIVE UA EPITHELIAL CELLS 2+ epi/hpf 0 - 1+ UA MUCUS 3+ NEG TO 1+ UA VOLUME FOR EXAM 8.0 mL (12mL STD) UA WBC 2-5 wbc/hpf 0 - 5 UR TEST - 12/16/16 14:37 UR TEST NEGATIVE NEGATIVE CHEM/HEM PROFILE-BEDSIDE - 12/16/16 14:4 5 POTASSIUM 3.6 mmol/L 3.5-5.3 METHOD Bedside ANION GAP 17 mmol/L 10-20 METHOD Bedside GLUCOSE 87 mg/dL 70-99 BLOOD UREA NITROGEN 11 mg/dL 7-20 CREATININE 0.7 mg/dL 0.6-1.0 HEMOGLOBIN 15.6 gm/dL 12.0-16.0 HEMATOCRIT 46.0 % 37.0-47.0 SODIUM 139 mmol/L 135-148 CHLORIDE 104 mmol/L 98-110 CARBON DIOXIDE 22 mmol/L 21-32 CALCIUM IONIZED 4.7 mg/dL 4.5-5.3 UR TEST - 02/02/17 18:22 UR TEST NEGATIVE NEGATIVE URINALYSIS, ROUTINE - 02/02/17 18:22 UA LEUKOCYTE ESTERASE DIPSTICK TRACE NEGATIVE UA NITRITE DIPSTICK NEGATIVE NEGATIVE UA PROTEIN DIPSTICK 1+ NEGATIVE UA GLUCOSE DIPSTICK NEGATIVE NEGATIVE UA KETONE DIPSTICK NEGATIVE NEGATIVE UA UROBILINOGEN DIPSTICK NORMAL FATIMAH L UA BILIRUBIN DIPSTICK 3+ NEGATIVE UA BLOOD DIPSTICK 4+ NEGATIVE UA SPECIFIC GRAVITY 1.020 1.015-1.02 5 UR PH 5.0 5.0-7.0 UA MICROSCOPIC - 02/02/17 18:22 UA BACTERIA 3+ NEGATIVE UA EPITHELIAL CELLS 2+ epi/hpf 0 - 1+ UA MUCUS 3+ NEG TO 1+ UA RBC 0-3 rbc/hpf 0 - 3 UA VOLUME FOR EXAM 12.0 mL (12mL STD) UA WBC 2-5 wbc/hpf 0 - 5 CBC W/DIFF - 02/02/17 18:28 GRANULOCYTE # 4.1 k/cumm 2.0-9.0 GRANULOCYTE % 59 % 50-75 LYMPHOCYTE # 2.4 k/cumm 1.0-4.0 LYMPHOCYTE % 34 % 20-30 MEAN CELL HGB 33.9 pg 27.0-33.0 MEAN CELL HGB CONCENTRATION 33.0 g/dL 32 .0-37.0 MEAN CELL VOLUME 102.9 fl 80.0-100.0 MONOCYTE # 0.4 k/cumm 0.1-1.0 MONOCYTE % 6 % 4-6 RED BLOOD CELL 3.45 m/cumm 4.00-6.00 RED CELL DISTRIBUTION WIDTH 13.7 % 11 .0-15.6 WHITE BLOOD CELL 6.9 k/cumm 5.0-10.0 HEMOGLOBIN 11.7 gm/dL 12.0-16.0 HEMATOCRIT 35.5 % 37.0-47.0 PLATELET COUNT 321 k/cumm 150-450 METABOLIC PANEL, BASIC - 02/02/17 18:28 POTASSIUM 3.7 mmol/L 3.5-5.3 EST GFR (MDRD) > 60 mL/min > 59 ANION GAP 11 mmol/L 5-15 EST CrCl (CG) > 60 mL/min > 59 GLUCOSE 80 mg/dL 70-99 CALCIUM 9.1 mg/dL 8.5-10.1 BLOOD UREA NITROGEN 19 mg/dL 7-20 CREATININE 0.9 mg/dL 0.6-1.0 SODIUM 134 mmol/L 135-148 CHLORIDE 100 mmol/L 98-110 CARBON DIOXIDE 23 mmol/L 21-32 URINALYSIS, ROUTINE - 02/07/17 11:59 UA LEUKOCYTE ESTERASE DIPSTICK TRACE NEGATIVE UA NITRITE DIPSTICK NEGATIVE NEGATIVE UA PROTEIN DIPSTICK 1+ NEGATIVE UA GLUCOSE DIPSTICK NEGATIVE NEGATIVE UA KETONE DIPSTICK NEGATIVE NEGATIVE UA UROBILINOGEN DIPSTICK NORMAL FATIMAH L UA BILIRUBIN DIPSTICK 1+ NEGATIVE UA BLOOD DIPSTICK 1+ NEGATIVE UA SPECIFIC GRAVITY 1.020 1.015-1.02 5 UR PH 5.0 5.0-7.0 UA MICROSCOPIC - 02/07/17 11:59 UA BACTERIA 2+ NEGATIVE UA EPITHELIAL CELLS 3+ epi/hpf 0 - 1+ UA MUCUS 4+ NEG TO 1+ UA RBC 0-3 rbc/hpf 0 - 3 UA VOLUME FOR EXAM 12.0 mL (12mL STD) UA WBC 2-5 wbc/hpf 0 - 5 UR TEST - 02/07/17 11:59 UR TEST NEGATIVE NEGATIVE CBC W/DIFF - 02/07/17 12:40 GRANULOCYTE # 2.9 k/cumm 2.0-9.0 GRANULOCYTE % 63 % 50-75 LYMPHOCYTE # 1.4 k/cumm 1.0-4.0 LYMPHOCYTE % 30 % 20-30 MEAN CELL HGB 34.1 pg 27.0-33.0 MEAN CELL HGB CONCENTRATION 33.0 g/dL 32 .0-37.0 MEAN CELL VOLUME 103.4 fl 80.0-100.0 MONOCYTE # 0.3 k/cumm 0.1-1.0 MONOCYTE % 6 % 4-6 RED BLOOD CELL 3.52 m/cumm 4.00-6.00 RED CELL DISTRIBUTION WIDTH 14.2 % 11 .0-15.6 WHITE BLOOD CELL 4.6 k/cumm 5.0-10.0 HEMOGLOBIN 12.0 gm/dL 12.0-16.0 HEMATOCRIT 36.4 % 37.0-47.0 PLATELET COUNT 338 k/cumm 150-450 METABOLIC PANEL, COMPREHN - 02/07/17 12: 40 POTASSIUM 3.9 mmol/L 3.5-5.3 EST GFR (MDRD) > 60 mL/min > 59 ANION GAP 13 mmol/L 5-15 EST CrCl (CG) > 60 mL/min > 59 GLUCOSE 99 mg/dL 70-99 CALCIUM 9.1 mg/dL 8.5-10.1 BLOOD UREA NITROGEN 15 mg/dL 7-20 CREATININE 0.7 mg/dL 0.6-1.0 SODIUM 142 mmol/L 135-148 CHLORIDE 104 mmol/L 98-110 AST/SGOT 19 Units/L 10-37 ALT/SGPT 50 Units/L < 66 CARBON DIOXIDE 25 mmol/L 21-32 TOTAL PROTEIN 7.9 gm/dL 6.4-8.2 ALBUMIN 4.4 gm/dL 3.4-5.0 BILI TOTAL 0.3 mg/dL 0.0-1.0 ALKALINE PHOSPHATASE TOTAL 67 IU/L 45- 117 LIPASE - 02/07/17 12:40 LIPASE 103 Units/L 73-393 CBC W/DIFF - 02/24/17 14:35 EOSINOPHIL # 0.1 k/cumm 0.1-0.5 EOSINOPHIL % 1 % 2-4 GRANULOCYTE # 4.7 k/cumm 2.0-9.0 GRANULOCYTE % 64 % 50-75 LYMPHOCYTE # 2.0 k/cumm 1.0-4.0 LYMPHOCYTE % 27 % 20-30 MEAN CELL HGB 35.5 pg 27.0-33.0 MEAN CELL HGB CONCENTRATION 34.3 g/dL 32 .0-37.0 MEAN CELL VOLUME 103.4 fl 80.0-100.0 MONOCYTE # 0.6 k/cumm 0.1-1.0 MONOCYTE % 8 % 4-6 RED BLOOD CELL 3.52 m/cumm 4.00-6.00 RED CELL DISTRIBUTION WIDTH 13.4 % 11 .0-15.6 WHITE BLOOD CELL 7.3 k/cumm 5.0-10.0 HEMOGLOBIN 12.5 gm/dL 12.0-16.0 HEMATOCRIT 36.4 % 37.0-47.0 PLATELET COUNT 264 k/cumm 150-450 METABOLIC PANEL, COMPREHN - 02/24/17 14: 35 POTASSIUM 3.8 mmol/L 3.5-5.3 EST GFR (MDRD) > 60 mL/min > 59 ANION GAP 12 mmol/L 5-15 EST CrCl (CG) > 60 mL/min > 59 GLUCOSE 97 mg/dL 70-99 CALCIUM 9.6 mg/dL 8.5-10.1 BLOOD UREA NITROGEN 13 mg/dL 7-20 CREATININE 0.8 mg/dL 0.6-1.0 SODIUM 141 mmol/L 135-148 CHLORIDE 104 mmol/L 98-110 AST/SGOT 17 Units/L 10-37 ALT/SGPT 21 Units/L < 66 CARBON DIOXIDE 25 mmol/L 21-32 TOTAL PROTEIN 8.0 gm/dL 6.4-8.2 ALBUMIN 4.2 gm/dL 3.4-5.0 BILI TOTAL 0.2 mg/dL 0.0-1.0 ALKALINE PHOSPHATASE TOTAL 64 IU/L 45- 117 LIPASE - 02/24/17 14:35 LIPASE 123 Units/L 73-393 URINALYSIS, ROUTINE - 02/24/17 16:20 UA LEUKOCYTE ESTERASE DIPSTICK NEGATIVE NEGATIVE UA NITRITE DIPSTICK NEGATIVE NEGATIVE UA PROTEIN DIPSTICK NEGATIVE NEGATIVE UA GLUCOSE DIPSTICK NEGATIVE NEGATIVE UA KETONE DIPSTICK NEGATIVE NEGATIVE UA UROBILINOGEN DIPSTICK NORMAL FATIMAH L UA BILIRUBIN DIPSTICK NEGATIVE NEGATIVE UA BLOOD DIPSTICK NEGATIVE NEGATIVE UA SPECIFIC GRAVITY 1.015 1.015-1.02 5 UR PH 6.0 5.0-7.0 UR TEST - 02/24/17 16:20 UR TEST NEGATIVE NEGATIVE CBC W/DIFF - 02/25/17 16:20 GRANULOCYTE # 8.2 k/cumm 2.0-9.0 GRANULOCYTE % 76 % 50-75 LYMPHOCYTE # 2.2 k/cumm 1.0-4.0 LYMPHOCYTE % 20 % 20-30 MEAN CELL HGB 34.8 pg 27.0-33.0 MEAN CELL HGB CONCENTRATION 34.1 g/dL 32 .0-37.0 MEAN CELL VOLUME 102.1 fl 80.0-100.0 MONOCYTE # 0.4 k/cumm 0.1-1.0 MONOCYTE % 4 % 4-6 RED BLOOD CELL 3.79 m/cumm 4.00-6.00 RED CELL DISTRIBUTION WIDTH 13.3 % 11 .0-15.6 WHITE BLOOD CELL 10.9 k/cumm 5.0-10.0 HEMOGLOBIN 13.2 gm/dL 12.0-16.0 HEMATOCRIT 38.7 % 37.0-47.0 PLATELET COUNT 309 k/cumm 150-450 METABOLIC PANEL, [facility] - 02/25/17 16: 20 POTASSIUM 3.1 mmol/L 3.5-5.3 EST GFR (MDRD) > 60 mL/min > 59 ANION GAP 15 mmol/L 5-15 EST CrCl (CG) > 60 mL/min > 59 GLUCOSE 134 mg/dL 70-99 CALCIUM 9.8 mg/dL 8.5-10.1 BLOOD UREA NITROGEN 12 mg/dL 7-20 CREATININE 0.7 mg/dL 0.6-1.0 SODIUM 140 mmol/L 135-148 CHLORIDE 103 mmol/L 98-110 AST/SGOT 14 Units/L 10-37 ALT/SGPT 19 Units/L < 66 CARBON DIOXIDE 22 mmol/L 21-32 TOTAL PROTEIN 8.5 gm/dL 6.4-8.2 ALBUMIN 4.3 gm/dL 3.4-5.0 BILI TOTAL 0.4 mg/dL 0.0-1.0 ALKALINE PHOSPHATASE TOTAL 66 IU/L 45- 117 [facility] - 02/25/17 18:03 Microbiology CBC W/DIFF - 04/28/17 22:32 BASOPHIL # 0.0 k/cumm 0.0-0.2 BASOPHIL % 0.1 % 0-1 EOSINOPHIL # 0.1 k/cumm 0.1-0.5 EOSINOPHIL % 1.6 % 2-4 GRANULOCYTE # 3.1 k/cumm 2.0-9.0 GRANULOCYTE % 40.8 % 50-75 LYMPHOCYTE # 3.6 k/cumm 1.0-4.0 LYMPHOCYTE % 47.6 % 20-30 MEAN CELL HGB 33.9 pg 27.0-33.0 MEAN CELL HGB CONCENTRATION 32.5 g/dL 32 .0-37.0 MEAN CELL VOLUME 104.1 fl 80.0-100.0 MONOCYTE # 0.8 k/cumm 0.1-1.0 MONOCYTE % 9.9 % 4-6 RED BLOOD CELL 3.63 m/cumm 4.00-6.00 RED CELL DISTRIBUTION WIDTH 12.4 % 11 .0-15.6 WHITE BLOOD CELL 7.7 k/cumm 5.0-10.0 HEMOGLOBIN 12.3 gm/dL 12.0-16.0 HEMATOCRIT 37.8 % 37.0-47.0 PLATELET COUNT 334 k/cumm 150-450 [facility] - 04/28/17 22:32 D-DIMER QUANT 308 ng/mL < 500 [facility] 04[facility]17 22: 32 POTASSIUM 4.4 mmol/L 3.5-5.3 EST GFR (MDRD) > 60 mL/min > 59 ANION GAP 9 mmol/L 5-15 EST CrCl (CG) > 60 mL/min > 59 GLUCOSE 101 mg/dL 70-99 CALCIUM 9.2 mg/dL 8.5-10.1 BLOOD UREA NITROGEN 15 mg/dL 7-20 CREATININE 0.7 mg/dL 0.6-1.0 SODIUM 143 mmol/L 135-148 CHLORIDE 109 mmol/L 98-110 AST/SGOT 12 Units/L 10-37 ALT/SGPT 20 Units/L < 66 CARBON DIOXIDE 25 mmol/L 21-32 TOTAL PROTEIN 7.7 gm/dL 6.4-8.2 ALBUMIN 4.0 gm/dL 3.4-5.0 BILI TOTAL 0.2 mg/dL 0.0-1.0 ALKALINE PHOSPHATASE TOTAL 63 IU/L 45- 117 CBC W/DIFF - 07/04/17 11:40 BASOPHIL # 0.0 k/cumm 0.0-0.2 BASOPHIL % 0.1 % 0-1 COMMENT REVIEWED EOSINOPHIL # 0.0 k/cumm 0.1-0.5 EOSINOPHIL % 0.0 % 2-4 GRANULOCYTE # 7.5 k/cumm 2.0-9.0 GRANULOCYTE % 85.1 % 50-75 LYMPHOCYTE # 1.1 k/cumm 1.0-4.0 LYMPHOCYTE % 13.0 % 20-30 MEAN CELL HGB 33.5 pg 27.0-33.0 MEAN CELL HGB CONCENTRATION 32.7 g/dL 32 .0-37.0 MEAN CELL VOLUME 102.5 fl 80.0-100.0 MONOCYTE # 0.2 k/cumm 0.1-1.0 MONOCYTE % 1.8 % 4-6 RED BLOOD CELL 4.03 m/cumm 4.00-6.00 RED CELL DISTRIBUTION WIDTH 12.7 % 11 .0-15.6 WHITE BLOOD CELL 8.8 k/cumm 5.0-10.0 HEMOGLOBIN 13.5 gm/dL 12.0-16.0 HEMATOCRIT 41.3 % 37.0-47.0 PLATELET COUNT 490 k/cumm 150-450 METABOLIC PANEL, [facility] - 07/04/17 11: 40 POTASSIUM 3.7 mmol/L 3.5-5.3 EST GFR (MDRD) > 60 mL/min > 59 ANION GAP 13 mmol/L 5-15 EST CrCl (CG) > 60 mL/min > 59 GLUCOSE 125 mg/dL 70-99 CALCIUM 9.6 mg/dL 8.5-10.1 BLOOD UREA NITROGEN 7 mg/dL 7-20 CREATININE 0.7 mg/dL 0.6-1.0 SODIUM 139 mmol/L 135-148 CHLORIDE 103 mmol/L 98-110 AST/SGOT 16 Units/L 10-37 ALT/SGPT 18 Units/L < 66 CARBON DIOXIDE 23 mmol/L 21-32 TOTAL PROTEIN 8.6 gm/dL 6.4-8.2 ALBUMIN 4.2 gm/dL 3.4-5.0 BILI TOTAL 0.3 mg/dL 0.0-1.0 ALKALINE PHOSPHATASE TOTAL 62 IU/L 45- 117 [facility] - 07/04/17 11:40 LIPASE 97 Units/L 73-393 TEST, SERUM - 07/04/17 11:40 TEST, SERUM NEGATIVE NEGATIVE AB H.PYLORI SCREEN - 07/04/17 11:40 AB H.PYLORI SCREEN NEGATIVE NEGATIVE URINALYSIS, ROUTINE - 07/04/17 13:45 UA LEUKOCYTE ESTERASE DIPSTICK NEGATIVE NEGATIVE UA NITRITE DIPSTICK NEGATIVE NEGATIVE UA PROTEIN DIPSTICK NEGATIVE NEGATIVE UA GLUCOSE DIPSTICK NEGATIVE NEGATIVE UA KETONE DIPSTICK NEGATIVE NEGATIVE UA UROBILINOGEN DIPSTICK NORMAL FATIMAH L UA BILIRUBIN DIPSTICK NEGATIVE NEGATIVE UA BLOOD DIPSTICK 1+ NEGATIVE UA SPECIFIC GRAVITY 1.015 1.015-1.02 5 UR PH 7.0 5.0-7.0 UA MICROSCOPIC - 07/04/17 13:45 UA BACTERIA 2+ NEGATIVE UA EPITHELIAL CELLS 3+ epi/hpf 0 - 1+ UA RBC 0-3 rbc/hpf 0 - 3 UA VOLUME FOR EXAM 12.0 mL (12mL STD) UA WBC 0 wbc/hpf 0 - 5 Automated blood complete blood count (he mogram) panel - 08/02/17 11:55 Blood leukocytes automated count (number/volume) 4.9 10*3/uL 4.3-11.0 Blood erythrocytes automated count (number/volume) 3.43 10*6/uL 4.35-5.85 Venous blood hemoglobin measurement (mass/volume) 11.8 g/dL 11.5-16.0 Blood hematocrit (volume fraction) 36 % 35-52 Automated erythrocyte mean corpuscular volume 104 [foz_us] 80-99 Automated erythrocyte mean corpuscular h emoglobin (mass per erythrocyte) 34 pg 25-34 Automated erythrocyte mean corpuscular h emoglobin concentration measurement (mass/volume) 33 g/dL 32-36 Automated erythrocyte distribution width ratio 13. 3 % 10.0- 14.5 Automated blood platelet count (count/volume) 302 10*3/uL 130-400 Automated blood platelet mean volume measurement 8.5 [foz_us] 7.4-10.4 Serum or plasma choriogonadotropin (preg rodriguez test) detection - 08/02/17 11:55 Serum or plasma choriogonadotropin ( test) de tection NEGATIVE NEGATIVE Liver function panel (serum or plasma al k phos, alb, total and direct bili, total protein, ALT, AST) - 08/02/17 11:55 Serum or plasma total bilirubin measurement (mass/volu me) 0.2 mg/dL 0.1-1.0 Serum or plasma alkaline phosphatase ashley surement (enzymatic activity/volume) 45 U/L 40-136 Serum or plasma aspartate aminotransfera se measurement (enzymatic activity/volume) 19 U/L 5-34 Serum or plasma alanine aminotransferase measurement (enzymatic activity/volume) 12 U/L 0-55 Serum or plasma protein measurement (mass/volume) 6.9 g/dL 6.4-8.2 Serum or plasma albumin measurement (mass/volume) 4.3 g/dL 3.2-4.5 Bilirubin direct < mg/dL 0.0-0.3 Serum or plasma indirect bilirubin measurement (mass/v olume) 0.1 mg/dL NRG Whole blood basic metabolic panel - 07/22 06/10 11:55 Serum or plasma sodium measurement (moles/volume) 137 mmol/L 135-145 Serum or plasma potassium measurement (moles/volume) 4.1 mmol/L 3.6-5.0 Serum or plasma chloride measurement (moles/volume) 106 mmol/L 98-107 Carbon dioxide 22 mmol/L 21-32 Serum or plasma anion gap determination (moles/volume) 9 mmol/L 5-14 Serum or plasma urea nitrogen measurement (mass/volume ) 10 mg/dL 7-18 Serum or plasma creatinine measurement (mass/volume) 0.65 mg/dL 0.60-1.30 Serum or plasma urea nitrogen/creatinine mass ratio 15 NRG Serum or plasma creatinine measurement w ith calculation of estimated glomerular filtration rate > NRG Serum or plasma glucose measurement (mass/volume) 78 mg/dL 70-105 Serum or plasma calcium measurement (mass/volume) 8.9 mg/dL 8.5-10.1 Serum or plasma ethanol measurement (mas s/volume) - 08/02/17 11:55 Serum or plasma ethanol measurement (mass/volume) < mg/dL <10 Serum or plasma thyrotropin measurement by detection limit <=0.05 miu/l (units/volume) - 08/02/17 11:55 Serum or plasma thyrotropin measurement by detection limit <=0.05 miu/l (units/volume) 2.23 u[iU]/mL 0.35-4.94 Complete urinalysis with reflex to cultu re - 08/02/17 13:17 Urine color determination YELLOW NRG Urine clarity determination CLEAR NR G Urine pH measurement by test strip 5 5-9 Specific gravity of urine by test strip 1.005 1.016-1.022 Urine protein assay by test strip, semi-quantitative NEGATIVE NEGATIVE Urine glucose detection by automated test strip NE GATIVE NEGATIVE Erythrocytes detection in urine sediment by light micr oscopy NEGATIVE NEGATIVE Urine ketones detection by automated test strip NE GATIVE NEGATIVE Urine nitrite detection by test strip NEGATIVE NEGATIVE Urine total bilirubin detection by test strip NEGA TIVE NEGATIVE Urine urobilinogen measurement by automated test strip (mass/volume) NORMAL NORMAL Urine leukocyte esterase detection by dipstick NEG ATIVE NEGATIVE Automated urine sediment erythrocyte cou nt by microscopy (number/high power field) NONE NRG Automated urine sediment leukocyte count by microscopy (number/high power field) RARE NRG Bacteria detection in urine sediment by light microsco py TRACE NRG Squamous epithelial cells detection in u rine sediment by light microscopy 2-5 NRG Crystals detection in urine sediment by light microsco py NONE NRG Casts detection in urine sediment by light microscopy NONE NRG Mucus detection in urine sediment by light microscopy NEGATIVE NRG Complete urinalysis with reflex to culture NO NRG Urine drug screening test - 08/02/17 13: 17 Urine phencyclidine detection by screening method NEGATIVE NEGATIVE Urine benzodiazepines detection by screening method NEGATIVE NEGATIVE Urine cocaine detection NEGATIVE NEGATI VE Urine amphetamines detection by screening method N EGATIVE NEGATIVE Urine methamphetamine detection by screening method NEGATIVE NEGATIVE Urine cannabinoids detection by screening method N EGATIVE NEGATIVE Urine opiates detection by screening method NEGATI VE NEGATIVE Urine barbiturates detection NEGATIVE N EGATIVE Screening urine tricyclic antidepressants detection POSITIVE NEGATIVE Urine methadone detection by screening method NEGA TIVE NEGATIVE Urine oxycodone detection NEGATIVE NEGA TIVE Urine propoxyphene detection NEGATIVE N EGATIVE Complete urinalysis with reflex to cultu re - 08/18/17 11:40 Urine color determination YELLOW NRG Urine clarity determination CLEAR NR G Urine pH measurement by test strip 7 5-9 Specific gravity of urine by test strip 1.010 1.016-1.022 Urine protein assay by test strip, semi-quantitative NEGATIVE NEGATIVE Urine glucose detection by automated test strip NE GATIVE NEGATIVE Erythrocytes detection in urine sediment by light micr oscopy 5+ NEGATIVE Urine ketones detection by automated test strip NE GATIVE NEGATIVE Urine nitrite detection by test strip NEGATIVE NEGATIVE Urine total bilirubin detection by test strip NEGA TIVE NEGATIVE Urine urobilinogen measurement by automated test strip (mass/volume) NORMAL NORMAL Urine leukocyte esterase detection by dipstick 1+ NEGATIVE Automated urine sediment erythrocyte cou nt by microscopy (number/high power field) [HPF] NRG Automated urine sediment leukocyte count by microscopy (number/high power field) [HPF] NRG Bacteria detection in urine sediment by light microsco py NEGATIVE NRG Squamous epithelial cells detection in u rine sediment by light microscopy 5-10 NRG Crystals detection in urine sediment by light microsco py NONE NRG Casts detection in urine sediment by light microscopy NONE NRG Mucus detection in urine sediment by light microscopy NEGATIVE NRG Complete urinalysis with reflex to culture NO NRG Urine drug screening test - 08/18/17 11: 40 Urine phencyclidine detection by screening method NEGATIVE NEGATIVE Urine benzodiazepines detection by screening method NEGATIVE NEGATIVE Urine cocaine detection NEGATIVE NEGATI VE Urine amphetamines detection by screening method N EGATIVE NEGATIVE Urine methamphetamine detection by screening method NEGATIVE NEGATIVE Urine cannabinoids detection by screening method N EGATIVE NEGATIVE Urine opiates detection by screening method POSITI VE NEGATIVE Urine barbiturates detection NEGATIVE N EGATIVE Screening urine tricyclic antidepressants detection NEGATIVE NEGATIVE Urine methadone detection by screening method NEGA TIVE NEGATIVE Urine oxycodone detection NEGATIVE NEGA TIVE Urine propoxyphene detection NEGATIVE N EGATIVE Complete blood count (CBC) with automate d white blood cell (WBC) differential - 08/18/17 12:30 Blood leukocytes automated count (number/volume) 7.0 10*3/uL 4.3-11.0 Blood erythrocytes automated count (number/volume) 3.83 10*6/uL 4.35-5.85 Venous blood hemoglobin measurement (mass/volume) 13.0 g/dL 11.5-16.0 Blood hematocrit (volume fraction) 39 % 35-52 Automated erythrocyte mean corpuscular volume 101 [foz_us] 80-99 Automated erythrocyte mean corpuscular h emoglobin (mass per erythrocyte) 34 pg 25-34 Automated erythrocyte mean corpuscular h emoglobin concentration measurement (mass/volume) 34 g/dL 32-36 Automated erythrocyte distribution width ratio 13. 2 % 10.0- 14.5 Automated blood platelet count (count/volume) 414 10*3/uL 130-400 Automated blood platelet mean volume measurement 8.0 [foz_us] 7.4-10.4 Automated blood neutrophils/100 leukocytes 66 % 42-75 Automated blood lymphocytes/100 leukocytes 24 % 12-44 Blood monocytes/100 leukocytes 8 % 0-12 Automated blood eosinophils/100 leukocytes 1 % 0-10 Automated blood basophils/100 leukocytes 0 % 0-10 Blood neutrophils automated count (number/volume) 4.7 10*3 1.8-7.8 Blood lymphocytes automated count (number/volume) 1.7 10*3 1.0-4.0 Blood monocytes automated count (number/volume) 0. 6 10*3 0.0-1.0 Automated eosinophil count 0.1 10*3/uL 0 .0-0.3 Automated blood basophil count (count/volume) 0.0 10*3/uL 0.0-0.1 Comprehensive metabolic panel - 08/18/17 12:30 Serum or plasma sodium measurement (moles/volume) 138 mmol/L 135-145 Serum or plasma potassium measurement (moles/volume) 4.0 mmol/L 3.6-5.0 Serum or plasma chloride measurement (moles/volume) 106 mmol/L 98-107 Carbon dioxide 25 mmol/L 21-32 Serum or plasma anion gap determination (moles/volume) 7 mmol/L 5-14 Serum or plasma urea nitrogen measurement (mass/volume ) 9 mg/dL 7-18 Serum or plasma creatinine measurement (mass/volume) 0.67 mg/dL 0.60-1.30 Serum or plasma urea nitrogen/creatinine mass ratio 13 NRG Serum or plasma creatinine measurement w ith calculation of estimated glomerular filtration rate > NRG Serum or plasma glucose measurement (mass/volume) 92 mg/dL 70-105 Serum or plasma calcium measurement (mass/volume) 9.4 mg/dL 8.5-10.1 Serum or plasma total bilirubin measurement (mass/volu me) 0.4 mg/dL 0.1-1.0 Serum or plasma alkaline phosphatase ashley surement (enzymatic activity/volume) 57 U/L 40-136 Serum or plasma aspartate aminotransfera se measurement (enzymatic activity/volume) 16 U/L 5-34 Serum or plasma alanine aminotransferase measurement (enzymatic activity/volume) 13 U/L 0-55 Serum or plasma protein measurement (mass/volume) 7.8 g/dL 6.4-8.2 Serum or plasma albumin measurement (mass/volume) 4.6 g/dL 3.2-4.5 Lipase - 08/18/17 12:30 Lipase 13 U/L 8-78 Serum or plasma C reactive protein measu rement (mass/volume) - 08/18/17 12:30 Serum or plasma C reactive protein measurement (mass/v olume) 0.04 mg/dL 0.00-0.50 Serum or plasma ethanol measurement (mas s/volume) - 08/18/17 12:30 Serum or plasma ethanol measurement (mass/volume) < mg/dL <10 Thyroid Stimulating Hormone - 12/14/17 0 8:00 TSH 1.36 mIU/mL 0.32-5.00 Urine Culture - 12/14/17 08:00 MEDIA PLATED Setup at 15:06 on 12/14/2017 CULTURE SOURCE clean [id number]\ Sensi - 12/14/17 08:00 FINAL CULTURE RESULTS Escherichia coli (Isolate 1) Ampicillin/Sulbactam <=8/4 Ampicillin <=8 Amoxicillin/K Clavulanate <=8/4 Ceftriaxone <=8 Ciprofloxacin <=1 Nitrofurantoin <=32 Gentamicin <=4 Levofloxacin <=2 Trimethoprim/ Sulfamethoxazole <=2/38 Tetracycline <=4 Amikacin <=16 Aztreonam <=8 Ceftazidime <=1 Ceftazidime/K Clavulanate <=0.25 Cephalothin 16 Cefotaxime <=2 Cefotaxime/K Clavulanate <=0.5 Cefoxitin <=8 Cefazolin <=8 Cefepime <=8 Cefuroxime <=4 Ertapenem <=1 Imipenem <=4 Meropenem <=4 Piperacillin/Tazobactam <=16 Piperacillin <=16 Tigecycline <=2 Tobramycin <=4 Complete urinalysis with reflex to cultu re - 02/13/18 11:36 Urine color determination YELLOW NRG Urine clarity determination CLEAR NR G Urine pH measurement by test strip 6 5-9 Specific gravity of urine by test strip 1.015 1.016-1.022 Urine protein assay by test strip, semi-quantitative NEGATIVE NEGATIVE Urine glucose detection by automated test strip NE GATIVE NEGATIVE Erythrocytes detection in urine sediment by light micr oscopy 1+ NEGATIVE Urine ketones detection by automated test strip NE GATIVE NEGATIVE Urine nitrite detection by test strip NEGATIVE NEGATIVE Urine total bilirubin detection by test strip NEGA TIVE NEGATIVE Urine urobilinogen measurement by automated test strip (mass/volume) NORMAL NORMAL Urine leukocyte esterase detection by dipstick NEG ATIVE NEGATIVE Automated urine sediment erythrocyte cou nt by microscopy (number/high power field) [HPF] NRG Automated urine sediment leukocyte count by microscopy (number/high power field) RARE NRG Bacteria detection in urine sediment by light microsco py TRACE NRG Squamous epithelial cells detection in u rine sediment by light microscopy 5-10 NRG Crystals detection in urine sediment by light microsco py NONE NRG Casts detection in urine sediment by light microscopy NONE NRG Mucus detection in urine sediment by light microscopy SMALL NRG Complete urinalysis with reflex to culture NO NRG Complete blood count (CBC) with automate d white blood cell (WBC) differential - 02/13/18 11:40 Blood leukocytes automated count (number/volume) 4.8 10*3/uL 4.3-11.0 Blood erythrocytes automated count (number/volume) 4.24 10*6/uL 4.35-5.85 Venous blood hemoglobin measurement (mass/volume) 14.5 g/dL 11.5-16.0 Blood hematocrit (volume fraction) 43 % 35-52 Automated erythrocyte mean corpuscular volume 101 [foz_us] 80-99 Automated erythrocyte mean corpuscular h emoglobin (mass per erythrocyte) 34 pg 25-34 Automated erythrocyte mean corpuscular h emoglobin concentration measurement (mass/volume) 34 g/dL 32-36 Automated erythrocyte distribution width ratio 13. 0 % 10.0- 14.5 Automated blood platelet count (count/volume) 390 10*3/uL 130-400 Automated blood platelet mean volume measurement 8.6 [foz_us] 7.4-10.4 Automated blood neutrophils/100 leukocytes 60 % 42-75 Automated blood lymphocytes/100 leukocytes 31 % 12-44 Blood monocytes/100 leukocytes 8 % 0-12 Automated blood eosinophils/100 leukocytes 0 % 0-10 Automated blood basophils/100 leukocytes 0 % 0-10 Blood neutrophils automated count (number/volume) 2.9 10*3 1.8-7.8 Blood lymphocytes automated count (number/volume) 1.5 10*3 1.0-4.0 Blood monocytes automated count (number/volume) 0. 4 10*3 0.0-1.0 Automated eosinophil count 0.0 10*3/uL 0 .0-0.3 Automated blood basophil count (count/volume) 0.0 10*3/uL 0.0-0.1 Comprehensive metabolic panel - 02/13/18 11:40 Serum or plasma sodium measurement (moles/volume) 137 mmol/L 135-145 Serum or plasma potassium measurement (moles/volume) 3.8 mmol/L 3.6-5.0 Serum or plasma chloride measurement (moles/volume) 105 mmol/L 98-107 Carbon dioxide 20 mmol/L 21-32 Serum or plasma anion gap determination (moles/volume) 12 mmol/L 5-14 Serum or plasma urea nitrogen measurement (mass/volume ) 8 mg/dL 7-18 Serum or plasma creatinine measurement (mass/volume) 0.78 mg/dL 0.60-1.30 Serum or plasma urea nitrogen/creatinine mass ratio 10 NRG Serum or plasma creatinine measurement w ith calculation of estimated glomerular filtration rate > NRG Serum or plasma glucose measurement (mass/volume) 109 mg/dL 70-105 Serum or plasma calcium measurement (mass/volume) 9.9 mg/dL 8.5-10.1 Serum or plasma total bilirubin measurement (mass/volu me) 0.2 mg/dL 0.1-1.0 Serum or plasma alkaline phosphatase ashley surement (enzymatic activity/volume) 68 U/L 40-136 Serum or plasma aspartate aminotransfera se measurement (enzymatic activity/volume) 17 U/L 5-34 Serum or plasma alanine aminotransferase measurement (enzymatic activity/volume) 14 U/L 0-55 Serum or plasma protein measurement (mass/volume) 8.7 g/dL 6.4-8.2 Serum or plasma albumin measurement (mass/volume) 5.1 g/dL 3.2-4.5 Serum or plasma amylase measurement (enz ymatic activity/volume) - 02/13/18 11:40 Serum or plasma amylase measurement (enzymatic activit y/volume) 48 U/L 25-125 Lipase - 02/13/18 11:40 Lipase 11 U/L 8-78 Blood lactic acid measurement (moles/vol ume) - 02/13/18 12:28 Blood lactic acid measurement (moles/volume) 0.64 mmol/L 0.50-2.00 Bacterial blood culture - 02/13/18 12:28 Bacterial blood culture NG NRG Bacterial blood culture - 02/13/18 12:51 Bacterial blood culture NG NRG Complete urinalysis with reflex to cultu re - 05/05/18 16:23 Urine color determination YELLOW NRG Urine clarity determination CLEAR NR G Urine pH measurement by test strip 6 5-9 Specific gravity of urine by test strip 1.025 1.016-1.022 Urine protein assay by test strip, semi-quantitative 2+ NEGATIVE Urine glucose detection by automated test strip NE GATIVE NEGATIVE Erythrocytes detection in urine sediment by light micr oscopy NEGATIVE NEGATIVE Urine ketones detection by automated test strip 1+ NEGATIVE Urine nitrite detection by test strip NEGATIVE NEGATIVE Urine total bilirubin detection by test strip NEGA TIVE NEGATIVE Urine urobilinogen measurement by automated test strip (mass/volume) 1 mg/dL NORMAL Urine leukocyte esterase detection by dipstick 1+ NEGATIVE Automated urine sediment erythrocyte cou nt by microscopy (number/high power field) NONE NRG Automated urine sediment leukocyte count by microscopy (number/high power field) RARE NRG Bacteria detection in urine sediment by light microsco py NEGATIVE NRG Squamous epithelial cells detection in u rine sediment by light microscopy 5-10 NRG Crystals detection in urine sediment by light microsco py NONE NRG Casts detection in urine sediment by light microscopy NONE NRG Mucus detection in urine sediment by light microscopy LARGE NRG Complete urinalysis with reflex to culture NO NRG Complete blood count (CBC) with automate d white blood cell (WBC) differential - 05/05/18 16:34 Blood leukocytes automated count (number/volume) 6.7 10*3/uL 4.3-11.0 Blood erythrocytes automated count (number/volume) 4.23 10*6/uL 4.35-5.85 Venous blood hemoglobin measurement (mass/volume) 13.8 g/dL 11.5-16.0 Blood hematocrit (volume fraction) 41 % 35-52 Automated erythrocyte mean corpuscular volume 97 [ foz_us] 80-99 Automated erythrocyte mean corpuscular h emoglobin (mass per erythrocyte) 33 pg 25-34 Automated erythrocyte mean corpuscular h emoglobin concentration measurement (mass/volume) 34 g/dL 32-36 Automated erythrocyte distribution width ratio 12. 7 % 10.0- 14.5 Automated blood platelet count (count/volume) 312 10*3/uL 130-400 Automated blood platelet mean volume measurement 8.3 [foz_us] 7.4-10.4 Automated blood neutrophils/100 leukocytes 54 % 42-75 Automated blood lymphocytes/100 leukocytes 38 % 12-44 Blood monocytes/100 leukocytes 8 % 0-12 Automated blood eosinophils/100 leukocytes 0 % 0-10 Automated blood basophils/100 leukocytes 0 % 0-10 Blood neutrophils automated count (number/volume) 3.6 10*3 1.8-7.8 Blood lymphocytes automated count (number/volume) 2.5 10*3 1.0-4.0 Blood monocytes automated count (number/volume) 0. 6 10*3 0.0-1.0 Automated eosinophil count 0.0 10*3/uL 0 .0-0.3 Automated blood basophil count (count/volume) 0.0 10*3/uL 0.0-0.1 Serum or plasma choriogonadotropin (preg rodriguez test) detection - 05/05/18 16:34 Serum or plasma choriogonadotropin ( test) de tection POSITIVE NEGATIVE Comprehensive metabolic panel - 05/05/18 16:34 Serum or plasma sodium measurement (moles/volume) 138 mmol/L 135-145 Serum or plasma potassium measurement (moles/volume) 3.3 mmol/L 3.6-5.0 Serum or plasma chloride measurement (moles/volume) 105 mmol/L 98-107 Carbon dioxide 21 mmol/L 21-32 Serum or plasma anion gap determination (moles/volume) 12 mmol/L 5-14 Serum or plasma urea nitrogen measurement (mass/volume ) 7 mg/dL 7-18 Serum or plasma creatinine measurement (mass/volume) 0.79 mg/dL 0.60-1.30 Serum or plasma urea nitrogen/creatinine mass ratio 9 NRG Serum or plasma creatinine measurement w ith calculation of estimated glomerular filtration rate > NRG Serum or plasma glucose measurement (mass/volume) 93 mg/dL 70-105 Serum or plasma calcium measurement (mass/volume) 9.9 mg/dL 8.5-10.1 Serum or plasma total bilirubin measurement (mass/volu me) 0.4 mg/dL 0.1-1.0 Serum or plasma alkaline phosphatase ashley surement (enzymatic activity/volume) 66 U/L 40-136 Serum or plasma aspartate aminotransfera se measurement (enzymatic activity/volume) 13 U/L 5-34 Serum or plasma alanine aminotransferase measurement (enzymatic activity/volume) 14 U/L 0-55 Serum or plasma protein measurement (mass/volume) 8.2 g/dL 6.4-8.2 Serum or plasma albumin measurement (mass/volume) 4.7 g/dL 3.2-4.5 Serum or plasma choriogonadotropin measu rement (units/volume) - 05/05/18 16:34 Serum or plasma choriogonadotropin measurement (units/ volume) 83488 m[iU]/mL <5 Complete blood count (CBC) with automate d white blood cell (WBC) differential - 05/06/18 04:20 Blood leukocytes automated count (number/volume) 6.5 10*3/uL 4.3-11.0 Blood erythrocytes automated count (number/volume) 3.68 10*6/uL 4.35-5.85 Venous blood hemoglobin measurement (mass/volume) 12.0 g/dL 11.5-16.0 Blood hematocrit (volume fraction) 36 % 35-52 Automated erythrocyte mean corpuscular volume 98 [ foz_us] 80-99 Automated erythrocyte mean corpuscular h emoglobin (mass per erythrocyte) 33 pg 25-34 Automated erythrocyte mean corpuscular h emoglobin concentration measurement (mass/volume) 33 g/dL 32-36 Automated erythrocyte distribution width ratio 12. 7 % 10.0- 14.5 Automated blood platelet count (count/volume) 271 10*3/uL 130-400 Automated blood platelet mean volume measurement 8.5 [foz_us] 7.4-10.4 Automated blood neutrophils/100 leukocytes 49 % 42-75 Automated blood lymphocytes/100 leukocytes 42 % 12-44 Blood monocytes/100 leukocytes 9 % 0-12 Automated blood eosinophils/100 leukocytes 1 % 0-10 Automated blood basophils/100 leukocytes 0 % 0-10 Blood neutrophils automated count (number/volume) 3.1 10*3 1.8-7.8 Blood lymphocytes automated count (number/volume) 2.7 10*3 1.0-4.0 Blood monocytes automated count (number/volume) 0. 6 10*3 0.0-1.0 Automated eosinophil count 0.0 10*3/uL 0 .0-0.3 Automated blood basophil count (count/volume) 0.0 10*3/uL 0.0-0.1 Comprehensive metabolic panel - 05/06/18 04:20 Serum or plasma sodium measurement (moles/volume) 139 mmol/L 135-145 Serum or plasma potassium measurement (moles/volume) 3.4 mmol/L 3.6-5.0 Serum or plasma chloride measurement (moles/volume) 110 mmol/L 98-107 Carbon dioxide 18 mmol/L 21-32 Serum or plasma anion gap determination (moles/volume) 11 mmol/L 5-14 Serum or plasma urea nitrogen measurement (mass/volume ) 5 mg/dL 7-18 Serum or plasma creatinine measurement (mass/volume) 0.65 mg/dL 0.60-1.30 Serum or plasma urea nitrogen/creatinine mass ratio 8 NRG Serum or plasma creatinine measurement w ith calculation of estimated glomerular filtration rate > NRG Serum or plasma glucose measurement (mass/volume) 73 mg/dL 70-105 Serum or plasma calcium measurement (mass/volume) 8.3 mg/dL 8.5-10.1 Serum or plasma total bilirubin measurement (mass/volu me) 0.4 mg/dL 0.1-1.0 Serum or plasma alkaline phosphatase ashley surement (enzymatic activity/volume) 52 U/L 40-136 Serum or plasma aspartate aminotransfera se measurement (enzymatic activity/volume) 12 U/L 5-34 Serum or plasma alanine aminotransferase measurement (enzymatic activity/volume) 10 U/L 0-55 Serum or plasma protein measurement (mass/volume) 6.5 g/dL 6.4-8.2 Serum or plasma albumin measurement (mass/volume) 3.8 g/dL 3.2-4.5 CALCIUM CORRECTED 8.5 mg/dL 8.5-10.1 Complete blood count (CBC) with automate d white blood cell (WBC) differential - 05/07/18 04:25 Blood leukocytes automated count (number/volume) 5.7 10*3/uL 4.3-11.0 Blood erythrocytes automated count (number/volume) 4.09 10*6/uL 4.35-5.85 Venous blood hemoglobin measurement (mass/volume) 13.2 g/dL 11.5-16.0 Blood hematocrit (volume fraction) 39 % 35-52 Automated erythrocyte mean corpuscular volume 96 [ foz_us] 80-99 Automated erythrocyte mean corpuscular h emoglobin (mass per erythrocyte) 32 pg 25-34 Automated erythrocyte mean corpuscular h emoglobin concentration measurement (mass/volume) 34 g/dL 32-36 Automated erythrocyte distribution width ratio 12. 4 % 10.0- 14.5 Automated blood platelet count (count/volume) 266 10*3/uL 130-400 Automated blood platelet mean volume measurement 8.5 [foz_us] 7.4-10.4 Automated blood neutrophils/100 leukocytes 61 % 42-75 Automated blood lymphocytes/100 leukocytes 32 % 12-44 Blood monocytes/100 leukocytes 7 % 0-12 Automated blood eosinophils/100 leukocytes 1 % 0-10 Automated blood basophils/100 leukocytes 0 % 0-10 Blood neutrophils automated count (number/volume) 3.5 10*3 1.8-7.8 Blood lymphocytes automated count (number/volume) 1.9 10*3 1.0-4.0 Blood monocytes automated count (number/volume) 0. 4 10*3 0.0-1.0 Automated eosinophil count 0.0 10*3/uL 0 .0-0.3 Automated blood basophil count (count/volume) 0.0 10*3/uL 0.0-0.1 Complete blood count (CBC) with automate d white blood cell (WBC) differential - 07/06/18 21:05 Blood leukocytes automated count (number/volume) 9.2 10*3/uL 4.3-11.0 Blood erythrocytes automated count (number/volume) 4.04 10*6/uL 4.35-5.85 Venous blood hemoglobin measurement (mass/volume) 13.4 g/dL 11.5-16.0 Blood hematocrit (volume fraction) 39 % 35-52 Automated erythrocyte mean corpuscular volume 96 [ foz_us] 80-99 Automated erythrocyte mean corpuscular h emoglobin (mass per erythrocyte) 33 pg 25-34 Automated erythrocyte mean corpuscular h emoglobin concentration measurement (mass/volume) 34 g/dL 32-36 Automated erythrocyte distribution width ratio 13. 8 % 10.0- 14.5 Automated blood platelet count (count/volume) 267 10*3/uL 130-400 Automated blood platelet mean volume measurement 8.6 [foz_us] 7.4-10.4 Automated blood neutrophils/100 leukocytes 71 % 42-75 Automated blood lymphocytes/100 leukocytes 22 % 12-44 Blood monocytes/100 leukocytes 7 % 0-12 Automated blood eosinophils/100 leukocytes 0 % 0-10 Automated blood basophils/100 leukocytes 0 % 0-10 Blood neutrophils automated count (number/volume) 6.5 10*3 1.8-7.8 Blood lymphocytes automated count (number/volume) 2.1 10*3 1.0-4.0 Blood monocytes automated count (number/volume) 0. 6 10*3 0.0-1.0 Automated eosinophil count 0.0 10*3/uL 0 .0-0.3 Automated blood basophil count (count/volume) 0.0 10*3/uL 0.0-0.1 Comprehensive metabolic panel - 07/06/18 21:05 Serum or plasma sodium measurement (moles/volume) 137 mmol/L 135-145 Serum or plasma potassium measurement (moles/volume) 3.6 mmol/L 3.6-5.0 Serum or plasma chloride measurement (moles/volume) 106 mmol/L 98-107 Carbon dioxide 19 mmol/L 21-32 Serum or plasma anion gap determination (moles/volume) 12 mmol/L 5-14 Serum or plasma urea nitrogen measurement (mass/volume ) 8 mg/dL 7-18 Serum or plasma creatinine measurement (mass/volume) 0.63 mg/dL 0.60-1.30 Serum or plasma urea nitrogen/creatinine mass ratio 13 NRG Serum or plasma creatinine measurement w ith calculation of estimated glomerular filtration rate > NRG Serum or plasma glucose measurement (mass/volume) 125 mg/dL 70-105 Serum or plasma calcium measurement (mass/volume) 9.7 mg/dL 8.5-10.1 Serum or plasma total bilirubin measurement (mass/volu me) 0.2 mg/dL 0.1-1.0 Serum or plasma alkaline phosphatase ashley surement (enzymatic activity/volume) 49 U/L 40-136 Serum or plasma aspartate aminotransfera se measurement (enzymatic activity/volume) 15 U/L 5-34 Serum or plasma alanine aminotransferase measurement (enzymatic activity/volume) 15 U/L 0-55 Serum or plasma protein measurement (mass/volume) 7.6 g/dL 6.4-8.2 Serum or plasma albumin measurement (mass/volume) 4.4 g/dL 3.2-4.5 CALCIUM CORRECTED 9.4 mg/dL 8.5-10.1 Complete urinalysis with reflex to cultu re - 07/06/18 21:10 Urine color determination YELLOW NRG Urine clarity determination SL CLOUDY N RG Urine pH measurement by test strip 7 5-9 Specific gravity of urine by test strip 1.010 1.016-1.022 Urine protein assay by test strip, semi-quantitative NEGATIVE NEGATIVE Urine glucose detection by automated test strip NE GATIVE NEGATIVE Erythrocytes detection in urine sediment by light micr oscopy NEGATIVE NEGATIVE Urine ketones detection by automated test strip NE GATIVE NEGATIVE Urine nitrite detection by test strip NEGATIVE NEGATIVE Urine total bilirubin detection by test strip NEGA TIVE NEGATIVE Urine urobilinogen measurement by automated test strip (mass/volume) NORMAL NORMAL Urine leukocyte esterase detection by dipstick NEG ATIVE NEGATIVE Automated urine sediment erythrocyte cou nt by microscopy (number/high power field) NONE NRG Automated urine sediment leukocyte count by microscopy (number/high power field) RARE NRG Bacteria detection in urine sediment by light microsco py FEW NRG Squamous epithelial cells detection in u rine sediment by light microscopy 2-5 NRG Crystals detection in urine sediment by light microsco py PRESENT NRG Casts detection in urine sediment by light microscopy NONE NRG Mucus detection in urine sediment by light microscopy SMALL NRG Complete urinalysis with reflex to culture YES NRG Amorphous sediment detection in urine sediment by ligh t microscopy MOD FLAVIA PHOSPHATE NRG Bacterial urine culture - 07/06/18 21:10 Bacterial urine culture 3 OR MORE NRG COLONY COUNT 40,000 CFU/ML NRG FTX;REPORTABLE GRAM POSITIVE; SUGGESTING PROBABLE NRG FREE TEXT ENTRY 2 COLLECTION CONTAMINATION WITH SK IN NRG FREE TEXT ENTRY 3 MARY. NO SUSCEPTIBILITY PERFORM ED NRG Complete blood count (CBC) with automate d white blood cell (WBC) differential - 07/12/18 13:35 Blood leukocytes automated count (number/volume) 8.2 10*3/uL 4.3-11.0 Blood erythrocytes automated count (number/volume) 3.87 10*6/uL 4.35-5.85 Venous blood hemoglobin measurement (mass/volume) 13.0 g/dL 11.5-16.0 Blood hematocrit (volume fraction) 38 % 35-52 Automated erythrocyte mean corpuscular volume 99 [ foz_us] 80-99 Automated erythrocyte mean corpuscular h emoglobin (mass per erythrocyte) 34 pg 25-34 Automated erythrocyte mean corpuscular h emoglobin concentration measurement (mass/volume) 34 g/dL 32-36 Automated erythrocyte distribution width ratio 14. 2 % 10.0- 14.5 Automated blood platelet count (count/volume) 252 10*3/uL 130-400 Automated blood platelet mean volume measurement 8.4 [foz_us] 7.4-10.4 Automated blood neutrophils/100 leukocytes 74 % 42-75 Automated blood lymphocytes/100 leukocytes 20 % 12-44 Blood monocytes/100 leukocytes 6 % 0-12 Automated blood eosinophils/100 leukocytes 0 % 0-10 Automated blood basophils/100 leukocytes 0 % 0-10 Blood neutrophils automated count (number/volume) 6.1 10*3 1.8-7.8 Blood lymphocytes automated count (number/volume) 1.6 10*3 1.0-4.0 Blood monocytes automated count (number/volume) 0. 5 10*3 0.0-1.0 Automated eosinophil count 0.0 10*3/uL 0 .0-0.3 Automated blood basophil count (count/volume) 0.0 10*3/uL 0.0-0.1 Comprehensive metabolic panel - 07/12/18 13:35 Serum or plasma sodium measurement (moles/volume) 135 mmol/L 135-145 Serum or plasma potassium measurement (moles/volume) 3.4 mmol/L 3.6-5.0 Serum or plasma chloride measurement (moles/volume) 104 mmol/L 98-107 Carbon dioxide 21 mmol/L 21-32 Serum or plasma anion gap determination (moles/volume) 10 mmol/L 5-14 Serum or plasma urea nitrogen measurement (mass/volume ) 5 mg/dL 7-18 Serum or plasma creatinine measurement (mass/volume) 0.67 mg/dL 0.60-1.30 Serum or plasma urea nitrogen/creatinine mass ratio 7 NRG Serum or plasma creatinine measurement w ith calculation of estimated glomerular filtration rate > NRG Serum or plasma glucose measurement (mass/volume) 130 mg/dL 70-105 Serum or plasma calcium measurement (mass/volume) 9.3 mg/dL 8.5-10.1 Serum or plasma total bilirubin measurement (mass/volu me) 0.3 mg/dL 0.1-1.0 Serum or plasma alkaline phosphatase ashley surement (enzymatic activity/volume) 53 U/L 40-136 Serum or plasma aspartate aminotransfera se measurement (enzymatic activity/volume) 14 U/L 5-34 Serum or plasma alanine aminotransferase measurement (enzymatic activity/volume) 12 U/L 0-55 Serum or plasma protein measurement (mass/volume) 7.0 g/dL 6.4-8.2 Serum or plasma albumin measurement (mass/volume) 4.0 g/dL 3.2-4.5 CALCIUM CORRECTED 9.3 mg/dL 8.5-10.1 Complete urinalysis with reflex to cultu re - 07/12/18 13:44 Urine color determination YELLOW NRG Urine clarity determination CLEAR NR G Urine pH measurement by test strip 6 5-9 Specific gravity of urine by test strip 1.020 1.016-1.022 Urine protein assay by test strip, semi-quantitative 1+ NEGATIVE Urine glucose detection by automated test strip NE GATIVE NEGATIVE Erythrocytes detection in urine sediment by light micr oscopy NEGATIVE NEGATIVE Urine ketones detection by automated test strip 1+ NEGATIVE Urine nitrite detection by test strip NEGATIVE NEGATIVE Urine total bilirubin detection by test strip NEGA TIVE NEGATIVE Urine urobilinogen measurement by automated test strip (mass/volume) NORMAL NORMAL Urine leukocyte esterase detection by dipstick 1+ NEGATIVE Automated urine sediment erythrocyte cou nt by microscopy (number/high power field) RARE NRG Automated urine sediment leukocyte count by microscopy (number/high power field) [HPF] NRG Bacteria detection in urine sediment by light microsco py MODERATE NRG Squamous epithelial cells detection in u rine sediment by light microscopy 10-25 NRG Crystals detection in urine sediment by light microsco py NONE NRG Casts detection in urine sediment by light microscopy NONE NRG Mucus detection in urine sediment by light microscopy SMALL NRG Complete urinalysis with reflex to culture NO NRG Beta HCG - 08/04/18 18:30 Beta HCG 04551 mIU/mL 5-25 Urinalysis - 08/04/18 18:30 Icotest N/A Negative Urine Volume Urine Volume Sufficient (10mL) Urine-Appearance Clear Clear Urine-Bacteria Trace Urine-Bilirubin Negative Negative Urine-Blood Negative Negative Urine-Color Yellow Colorless-[place] ow Urine-Epithelial Cells 5-10/HPF Urine-Glucose Negative Negative Urine-Ketones Trace Negative Urine-Leukocytes Negative Negative Urine-Mucus 3+ Urine-Nitrite Negative Negative Urine-Other Urine Saved if Culture Need ed (48hrs from time of collection) Urine-pH 6.5 5-8.5 Urine-Protein Negative Negative Urine-RBC 0-2/HPF Urine-Specific [place] 1.020 1.000-1 .030 Urine-WBC 0-2/HPF Urobilinogen 1.0 0.2-1.0 [place] - 08/04/18 20:00 Clue Cells Not Observed Not Observed Trichomonas Not Observed Not Observed Yeast Not Observed Not Observed Complete urinalysis with reflex to cultu re - 08/09/18 13:00 Urine color determination YELLOW NRG Urine clarity determination CLEAR NR G Urine pH measurement by test strip 6.5 5-9 Specific gravity of urine by test strip 1.010 1.016-1.022 Urine protein assay by test strip, semi-quantitative NEGATIVE NEGATIVE Urine glucose detection by automated test strip NE GATIVE NEGATIVE Erythrocytes detection in urine sediment by light micr oscopy NEGATIVE NEGATIVE Urine ketones detection by automated test strip NE GATIVE NEGATIVE Urine nitrite detection by test strip NEGATIVE NEGATIVE Urine total bilirubin detection by test strip NEGA TIVE NEGATIVE Urine urobilinogen measurement by automated test strip (mass/volume) NORMAL NORMAL Urine leukocyte esterase detection by dipstick NEG ATIVE NEGATIVE Automated urine sediment erythrocyte cou nt by microscopy (number/high power field) NONE NRG Automated urine sediment leukocyte count by microscopy (number/high power field) NONE NRG Bacteria detection in urine sediment by light microsco py FEW NRG Squamous epithelial cells detection in u rine sediment by light microscopy 2-5 NRG Crystals detection in urine sediment by light microsco py NONE NRG Casts detection in urine sediment by light microscopy NONE NRG Mucus detection in urine sediment by light microscopy NEGATIVE NRG Complete urinalysis with reflex to culture NO NRG Complete blood count (CBC) with automate d white blood cell (WBC) differential - 08/09/18 14:21 Blood leukocytes automated count (number/volume) 7.6 10*3/uL 4.3-11.0 Blood erythrocytes automated count (number/volume) 3.61 10*6/uL 4.35-5.85 Venous blood hemoglobin measurement (mass/volume) 12.3 g/dL 11.5-16.0 Blood hematocrit (volume fraction) 36 % 35-52 Automated erythrocyte mean corpuscular volume 100 [foz_us] 80-99 Automated erythrocyte mean corpuscular h emoglobin (mass per erythrocyte) 34 pg 25-34 Automated erythrocyte mean corpuscular h emoglobin concentration measurement (mass/volume) 34 g/dL 32-36 Automated erythrocyte distribution width ratio 13. 6 % 10.0- 14.5 Automated blood platelet count (count/volume) 274 10*3/uL 130-400 Automated blood platelet mean volume measurement 8.4 [foz_us] 7.4-10.4 Automated blood neutrophils/100 leukocytes 70 % 42-75 Automated blood lymphocytes/100 leukocytes 26 % 12-44 Blood monocytes/100 leukocytes 4 % 0-12 Automated blood eosinophils/100 leukocytes 0 % 0-10 Automated blood basophils/100 leukocytes 0 % 0-10 Blood neutrophils automated count (number/volume) 5.3 10*3 1.8-7.8 Blood lymphocytes automated count (number/volume) 2.0 10*3 1.0-4.0 Blood monocytes automated count (number/volume) 0. 3 10*3 0.0-1.0 Automated eosinophil count 0.0 10*3/uL 0 .0-0.3 Automated blood basophil count (count/volume) 0.0 10*3/uL 0.0-0.1 Complete blood count (CBC) with automate d white blood cell (WBC) differential - 09/27/18 13:55 Blood leukocytes automated count (number/volume) 8.8 10*3/uL 4.3-11.0 Blood erythrocytes automated count (number/volume) 3.43 10*6/uL 4.35-5.85 Venous blood hemoglobin measurement (mass/volume) 11.6 g/dL 11.5-16.0 Blood hematocrit (volume fraction) 34 % 35-52 Automated erythrocyte mean corpuscular volume 100 [foz_us] 80-99 Automated erythrocyte mean corpuscular h emoglobin (mass per erythrocyte) 34 pg 25-34 Automated erythrocyte mean corpuscular h emoglobin concentration measurement (mass/volume) 34 g/dL 32-36 Automated erythrocyte distribution width ratio 13. 0 % 10.0- 14.5 Automated blood platelet count (count/volume) 233 10*3/uL 130-400 Automated blood platelet mean volume measurement 9.2 [foz_us] 7.4-10.4 Automated blood neutrophils/100 leukocytes 72 % 42-75 Automated blood lymphocytes/100 leukocytes 23 % 12-44 Blood monocytes/100 leukocytes 5 % 0-12 Automated blood eosinophils/100 leukocytes 0 % 0-10 Automated blood basophils/100 leukocytes 0 % 0-10 Blood neutrophils automated count (number/volume) 6.3 10*3 1.8-7.8 Blood lymphocytes automated count (number/volume) 2.1 10*3 1.0-4.0 Blood monocytes automated count (number/volume) 0. 4 10*3 0.0-1.0 Automated eosinophil count 0.0 10*3/uL 0 .0-0.3 Automated blood basophil count (count/volume) 0.0 10*3/uL 0.0-0.1 Comprehensive metabolic panel - 09/27/18 13:55 Serum or plasma sodium measurement (moles/volume) 134 mmol/L 135-145 Serum or plasma potassium measurement (moles/volume) 3.5 mmol/L 3.6-5.0 Serum or plasma chloride measurement (moles/volume) 106 mmol/L 98-107 Carbon dioxide 20 mmol/L 21-32 Serum or plasma anion gap determination (moles/volume) 8 mmol/L 5-14 Serum or plasma urea nitrogen measurement (mass/volume ) 5 mg/dL 7-18 Serum or plasma creatinine measurement (mass/volume) 0.53 mg/dL 0.60-1.30 Serum or plasma urea nitrogen/creatinine mass ratio 9 NRG Serum or plasma creatinine measurement w ith calculation of estimated glomerular filtration rate > NRG Serum or plasma glucose measurement (mass/volume) 101 mg/dL 70-105 Serum or plasma calcium measurement (mass/volume) 8.9 mg/dL 8.5-10.1 Serum or plasma total bilirubin measurement (mass/volu me) 0.2 mg/dL 0.1-1.0 Serum or plasma alkaline phosphatase ashley surement (enzymatic activity/volume) 61 U/L 40-136 Serum or plasma aspartate aminotransfera se measurement (enzymatic activity/volume) 14 U/L 5-34 Serum or plasma alanine aminotransferase measurement (enzymatic activity/volume) 15 U/L 0-55 Serum or plasma protein measurement (mass/volume) 6.3 g/dL 6.4-8.2 Serum or plasma albumin measurement (mass/volume) 3.4 g/dL 3.2-4.5 CALCIUM CORRECTED 9.4 mg/dL 8.5-10.1 Complete urinalysis with reflex to cultu re - 11/25/18 18:40 Urine color determination YELLOW NRG Urine clarity determination SLIGHTLY CLOUDY NRG Urine pH measurement by test strip 7 5-9 Specific gravity of urine by test strip 1.010 1.016-1.022 Urine protein assay by test strip, semi-quantitative NEGATIVE NEGATIVE Urine glucose detection by automated test strip NE GATIVE NEGATIVE Erythrocytes detection in urine sediment by light micr oscopy NEGATIVE NEGATIVE Urine ketones detection by automated test strip NE GATIVE NEGATIVE Urine nitrite detection by test strip NEGATIVE NEGATIVE Urine total bilirubin detection by test strip NEGA TIVE NEGATIVE Urine urobilinogen measurement by automated test strip (mass/volume) NORMAL NORMAL Urine leukocyte esterase detection by dipstick NEG ATIVE NEGATIVE Automated urine sediment erythrocyte cou nt by microscopy (number/high power field) NONE NRG Automated urine sediment leukocyte count by microscopy (number/high power field) RARE NRG Bacteria detection in urine sediment by light microsco py TRACE NRG Squamous epithelial cells detection in u rine sediment by light microscopy 2-5 NRG Crystals detection in urine sediment by light microsco py NONE NRG Casts detection in urine sediment by light microscopy NONE NRG Mucus detection in urine sediment by light microscopy NEGATIVE NRG Complete urinalysis with reflex to culture CULTURE PENDING NRG Bacterial urine culture - 11/25/18 18:40 Bacterial urine culture 3 OR MORE NRG COLONY COUNT 10,000 CFU/ML NRG FTX;REPORTABLE GRAM POSITIVE, SUGGESTING PROBABEL NRG FREE TEXT ENTRY 2 COLLECTION CONTAMINATION WITH SK IN MARY NRG FREE TEXT ENTRY 3 NO SUSCEPTIBILITY PERFORMED NRG Complete urinalysis with reflex to cultu re - 12/16/18 07:15 Urine color determination MADELINE NRG Urine clarity determination CLEAR NR G Urine pH measurement by test strip 6 5-9 Specific gravity of urine by test strip 1.025 1.016-1.022 Urine protein assay by test strip, semi-quantitative 3+ NEGATIVE Urine glucose detection by automated test strip NE GATIVE NEGATIVE Erythrocytes detection in urine sediment by light micr oscopy 4+ NEGATIVE Urine ketones detection by automated test strip 1+ NEGATIVE Urine nitrite detection by test strip NEGATIVE NEGATIVE Urine total bilirubin detection by test strip NEGA TIVE NEGATIVE Urine urobilinogen measurement by automated test strip (mass/volume) 1 mg/dL NORMAL Urine leukocyte esterase detection by dipstick 1+ NEGATIVE Automated urine sediment erythrocyte cou nt by microscopy (number/high power field) [HPF] NRG Automated urine sediment leukocyte count by microscopy (number/high power field) [HPF] NRG Bacteria detection in urine sediment by light microsco py FEW NRG Squamous epithelial cells detection in u rine sediment by light microscopy 10-25 NRG Crystals detection in urine sediment by light microsco py NONE NRG Casts detection in urine sediment by light microscopy NONE NRG Mucus detection in urine sediment by light microscopy LARGE NRG Complete urinalysis with reflex to culture CULTURE PENDING NRG Urine drug screening test - 12/16/18 07: 15 Urine phencyclidine detection by screening method NEGATIVE NEGATIVE Urine benzodiazepines detection by screening method NEGATIVE NEGATIVE Urine cocaine detection NEGATIVE NEGATI VE Urine amphetamines detection by screening method N EGATIVE NEGATIVE Urine methamphetamine detection by screening method NEGATIVE NEGATIVE Urine cannabinoids detection by screening method N EGATIVE NEGATIVE Urine opiates detection by screening method NEGATI VE NEGATIVE Urine barbiturates detection NEGATIVE N EGATIVE Screening urine tricyclic antidepressants detection POSITIVE NEGATIVE Urine methadone detection by screening method NEGA TIVE NEGATIVE Urine oxycodone detection NEGATIVE NEGA TIVE Urine propoxyphene detection NEGATIVE N EGATIVE Bacterial urine culture - 12/16/18 07:15 Bacterial urine culture [id number] NRG COLONY COUNT . NRG FTX;REPORTABLE PRESENT NRG FREE TEXT ENTRY 2 CONTAMINAITON WITH SKIN MARY NRG FREE TEXT ENTRY 3 NO SUSCEPTIBILITY PERFORMED NRG Complete blood count (CBC) with automate d white blood cell (WBC) differential - 12/16/18 08:05 Blood leukocytes automated count (number/volume) 7.3 10*3/uL 4.3-11.0 Blood erythrocytes automated count (number/volume) 3.67 10*6/uL 4.35-5.85 Venous blood hemoglobin measurement (mass/volume) 11.4 g/dL 11.5-16.0 Blood hematocrit (volume fraction) 35 % 35-52 Automated erythrocyte mean corpuscular volume 95 [ foz_us] 80-99 Automated erythrocyte mean corpuscular h emoglobin (mass per erythrocyte) 31 pg 25-34 Automated erythrocyte mean corpuscular h emoglobin concentration measurement (mass/volume) 33 g/dL 32-36 Automated erythrocyte distribution width ratio 13. 9 % 10.0- 14.5 Automated blood platelet count (count/volume) 228 10*3/uL 130-400 Automated blood platelet mean volume measurement 10.5 [foz_us] 7.4-10.4 Automated blood neutrophils/100 leukocytes 65 % 42-75 Automated blood lymphocytes/100 leukocytes 28 % 12-44 Blood monocytes/100 leukocytes 7 % 0-12 Automated blood eosinophils/100 leukocytes 0 % 0-10 Automated blood basophils/100 leukocytes 0 % 0-10 Blood neutrophils automated count (number/volume) 4.7 10*3 1.8-7.8 Blood lymphocytes automated count (number/volume) 2.0 10*3 1.0-4.0 Blood monocytes automated count (number/volume) 0. 5 10*3 0.0-1.0 Automated eosinophil count 0.0 10*3/uL 0 .0-0.3 Automated blood basophil count (count/volume) 0.0 10*3/uL 0.0-0.1 Blood type T Indirect antibody screen pa jody - 12/16/18 08:05 WRISTBAND NUMBER [id number] NRG ABO+Rh group AP NRG Blood group antibody screen NEGATIVE NR G Complete blood count (CBC) with automate d white blood cell (WBC) differential - 12/17/18 05:02 Blood leukocytes automated count (number/volume) 9.3 10*3/uL 4.3-11.0 Blood erythrocytes automated count (number/volume) 2.55 10*6/uL 4.35-5.85 Venous blood hemoglobin measurement (mass/volume) 7.9 g/dL 11.5-16.0 Blood hematocrit (volume fraction) 25 % 35-52 Automated erythrocyte mean corpuscular volume 96 [ foz_us] 80-99 Automated erythrocyte mean corpuscular h emoglobin (mass per erythrocyte) 31 pg 25-34 Automated erythrocyte mean corpuscular h emoglobin concentration measurement (mass/volume) 32 g/dL 32-36 Automated erythrocyte distribution width ratio 13. 9 % 10.0- 14.5 Automated blood platelet count (count/volume) 188 10*3/uL 130-400 Automated blood platelet mean volume measurement 10.1 [foz_us] 7.4-10.4 Automated blood neutrophils/100 leukocytes 75 % 42-75 Automated blood lymphocytes/100 leukocytes 20 % 12-44 Blood monocytes/100 leukocytes 5 % 0-12 Automated blood eosinophils/100 leukocytes 0 % 0-10 Automated blood basophils/100 leukocytes 0 % 0-10 Blood neutrophils automated count (number/volume) 7.0 10*3 1.8-7.8 Blood lymphocytes automated count (number/volume) 1.9 10*3 1.0-4.0 Blood monocytes automated count (number/volume) 0. 5 10*3 0.0-1.0 Automated eosinophil count 0.0 10*3/uL 0 .0-0.3 Automated blood basophil count (count/volume) 0.0 10*3/uL 0.0-0.1 TSH w/ FREE T4 - 01/21/19 11:55 TSH 0.69 mIU/L NRG T4, FREE 0.7 ng/dL 0.8-1.8 Influenza virus A and B antigen detectio n - 05/11/19 18:10 FLU RESULT NEGATIVE FOR INFLUENZA A AND B ANTIGENS BY IA NRG EKG - 05/26/19 06:01 EKG Complete Thyroid Stimulating Hormone - 05/26/19 0 6:05 TSH 1.52 mIU/mL 0.32-5.00 Comprehensive Metabolic Panel - 06/14/19 09:55 Albumin 4.5 g/dL 3.6-5.1 ALP 67 U/L 35-130 ALT 25 U/L 6-45 Anion Gap 13 6-14 AST 19 U/L 2-40 BUN 12 mg/dL 5-25 Calcium 9.6 mg/dL 8.3-10.4 Chloride 107 mmol/L 95-114 CO2 25 mEq/L 22-33 Creat 0.76 mg/dL 0.50-1.50 eGFR 93 mL/min/1.73m2 >59 Globulin 3.1 g/dL 2.3-3.5 Glucose 97 mg/dL 70-110 Osmo 291 280-295 Potassium 3.9 mmol/L 3.5-5.3 Sodium 141 mmol/L 134-148 TBil 0.3 mg/dL 0.2-1.2 TP 7.6 g/dL 6.0-8.3 Urinalysis - 06/14/19 09:55 Icotest N/A Negative Urine Volume Urine Volume Sufficient (10mL) Urine-Appearance Cloudy Clear Urine-Bacteria 3+ Urine-Bilirubin Negative Negative Urine-Blood 3+ Negative Urine-Color Yellow Colorless-[place] ow Urine-Epithelial Cells 0-5/HPF Urine-Glucose Negative Negative Urine-Ketones Negative Negative Urine-Leukocytes Negative Negative Urine-Nitrite Positive Negative Urine-Other Culture to follow Urine-pH 7.0 5-8.5 Urine-Protein Trace Negative Urine-RBC TNTC Urine-Specific [place] 1.025 1.000-1 .030 Urine-WBC 20-40/HPF Urobilinogen 0.2 E.U./dL 0.2-1.0 Urine Culture - 06/14/19 09:55 PRELIM CULTURE RESULTS >100,000 Gram Negativ e Lactose Industrial Relations Analyst. LAYLA / ID to Follow. MEDIA PLATED Setup at 11:00 on 06/14/2019 CULTURE SOURCE voided Sensi - 06/14/19 09:55 FINAL CULTURE RESULTS Escherichia coli (Isolate 1) Ampicillin/Sulbactam <=8/4 Ampicillin <=8 Amoxicillin/K Clavulanate <=8/4 Ceftriaxone <=8 Ciprofloxacin <=1 Nitrofurantoin <=32 Gentamicin <=4 Levofloxacin <=2 Trimethoprim/ Sulfamethoxazole <=2/38 Tetracycline <=4 Amikacin <=16 Aztreonam <=8 Ceftazidime <=1 Ceftazidime/K Clavulanate <=0.25 Cephalothin 16 Cefotaxime <=2 Cefotaxime/K Clavulanate <=0.5 Cefoxitin <=8 Cefazolin <=8 Cefepime <=8 Cefuroxime <=4 Ertapenem <=1 Imipenem <=4 Meropenem <=4 Piperacillin/Tazobactam <=16 Piperacillin <=16 Tigecycline <=2 Tobramycin <=4 Radiology Report from [facility] on 2015 19:36:00 [facility]ST[facility] [address] [place] [address] PHONE #: [phone] FAX #: [phone] Name: VELIA TABARES Loc: E.ED Radiology No: : 1995 Age: 20 Sex: F Status: DEP Unit No: [id number] Phys: Ck Leung MD Acct: [id number] Reason For Exam: SOA Exam Date: 12/22/2015 EXAMS: CPT CODE: [id number] CHEST AP/PA ONLY 77781 REASON FOR EXAM: Shortness of breath TIME OF CURRENT STUDY: 12/22/2015 5:34 PM COMPARISON: No comparable imaging is available FINDINGS: Single frontal view of the chest is obtained. The cardiomediastinal silhouette and the pulmonary vascularity are within normal limits. Bilateral Lungs are clear and well aerated. Lucency under the left hemidiaphragm appears to represent air within the stomach. No pleural effusions are present. There are no pneumothoraces. Bony and soft tissue structures demonstrate no acute abnormality. IMPRESSION: No acute pleural or parenchymal abnormality. I have personally reviewed these images and approved or corrected the resident physician's interpretation. at 1931 RESIDENT: ADELINA LING MD Reported and signed by: SARATH PALMER MD CC: Ck Hobbs MD Technologist: GRZEGORZ NAGEL Transcribed Date/Time: 12/22/2015 (1930)Linen Tech: ELIO Printed Date/Time: 12/22/2015 (1935) BATCH NO: N/A PAGE 1 Signed Report Radiology Report from [facility] on 01/07/20 16 19:40:00 DIAGNOSTIC [facility] REPORT [facility] - [address] [place] [address] PHONE #: [phone] FAX #: [phone] Name: VELIA TABARES Loc: E.ED Radiology No: : 1995 Age: 20 Sex: F Status: REG ER Unit No: [id number] Phys: Pablo Tan MD Acct: [id number] Reason For Exam: Trauma, Chest pain Exam Date: 01/07/2016 EXAMS: CPT CODE: [id number] CHEST AP/PA LATERAL [id number] TIME OF STUDY: 01/07/2016 7:16 PM REASON FOR EXAM: Trauma, chest pain COMPARISON: None. FINDINGS: Upright PA and lateral images of the chest were obtained. No large area of consolidation, pneumothorax or pleural effusion. The cardiac silhouette, mediastinum and pulmonary vasculature is unremarkable. The osseous structures are age-appropriate. IMPRESSION: 1. No acute pleural-parenchymal abnormalities. at 1935 Reported and signed by: ROBERT ROJAS MD CC: Technologist: GRZEGORZ NAGEL Transcribed Date/Time: 01/07/2016 (1934)Linen Tech: SHARON Printed Date/Time: 01/07/2016 (1939) BATCH NO: N/A PAGE 1 Signed Report Radiology Report from [facility] on 01/07/20 16 19:41:00 DIAGNOSTIC [facility] REPORT [facility] - [address] [place] [address] PHONE #: [phone] FAX #: [phone] Name: VELIA TABARES Loc: E.ED Radiology No: : 1995 Age: 20 Sex: F Status: REG ER Unit No: [id number] Phys: Pablo Tan MD Acct: [id number] Reason For Exam: trauma, cervical mid tender Exam Date: 01/07/2016 EXAMS: CPT CODE: [id number] CERVICAL SPINE 2-3 VIEWS 13264 TIME OF STUDY: 01/07/2016 7:16 PM REASON FOR EXAM: Trauma, pain COMPARISON: None. FINDINGS: AP, lateral and odontoid views of the cervical spine were obtained. There is a minimal rightward convex curvature centered in the mid cervical spine. The remaining static alignment appears anatomic. The vertebral body heights and disc spaces appear well-maintained. No obvious fracture, dislocation or acute bony abnormality appreciated. No unexpected radio opaque foreign body or joint effusion. IMPRESSION: 1. No obvious acute bony abnormalities. at 1936 Reported and signed by: ROBERT ROJAS MD CC: Technologist: GRZEGORZ NAGEL Transcribed Date/Time: 01/07/2016 (1935)Linen Tech: SHARON Printed Date/Time: 01/07/2016 (1940) BATCH NO: N/A PAGE 1 Signed Report Radiology Report from [facility] on 01/07/20 16 19:48:00 DIAGNOSTIC GRANT GING REPORT [facility] - [address] [place] [address] PHONE #: [phone] FAX #: [phone] Name: VELIA TABARES Loc: E.ED Radiology No: : 1995 Age: 20 Sex: F Status: REG ER Unit No: [id number] Phys: Pablo Tan MD Acct: [id number] Reason For Exam: Tender at around T10, trauma Exam Date: 01/07/2016 EXAMS: CPT CODE: [id number] THORACIC SPINE 2 VIEW 72670 TIME OF STUDY: 01/07/2016 7:16 PM REASON FOR EXAM: Trauma COMPARISON: None. FINDINGS: AP, lateral and swimmer's views of the thoracic spine were obtained. A minimal S -shaped scoliosis is seen centered in the midthoracic spine. The remaining static alignment appears anatomic. No obvious fracture, dislocation or acute bony abnormalities shape. No unexpected radio opaque foreign bodies. IMPRESSION: 1. No obvious acute bony abnormalities. at 1943 Reported and signed by: ROBERT ROJAS MD CC: Technologist: GRZEGORZ NAGEL Transcribed Date/Time: 01/07/2016 (1942)Linen Tech: SHARON Printed Date/Time: 01/07/2016 (1947) BATCH NO: N/A PAGE 1 Signed Report Radiology Report from [facility] on 2015 13:51:00 DIAGNOSTIC GRANT GING REPORT [facility] - [address] [place] [address] PHONE #: [phone] FAX #: [phone] Name: VELIA TABARES Loc: E.ED Radiology No: : 1995 Age: 21 Sex: F Status: REG ER Unit No: [id number] Phys: GROV[facility] - Sharron Garcia Acct: [id number] Reason For Exam: pain; not preg. Exam Date: 04/04/2016 EXAMS: CPT CODE: [id number] ABD-KUB DARIEN CHEST 43108 TIME OF EXAM: 04/04/2016 1:29 PM REASON FOR EXAM: pain; not preg. COMPARISON: Chest radiograph 01/07/2016. FINDINGS: Abdominal series was obtained. Chest: Single frontal view was obtained. Lung volumes are normal. No pulmonary mass or consolidation is present. Pulmonary vascularity is unremarkable. Cardiac silhouette is within normal limits. No pleural effusion or pneumothorax is present. Regional skeletal structures are age-appropriate. Abdomen: Supine and upright views were obtained. There is no evidence of free air. The bowel gas pattern is nonobstructive. Moderate amount of formed fecal material is present in the colon. No organomegaly is seen. No abnormal extraosseous calcifications. Regional skeletal structures are age-appropr iate. IMPRESSION: 1. No acute process of the chest. 2. Nonobstructive bowel gas pattern. No free air. Moderate amount of formed fecal material in the colon. at 1343 Reported and signed by: JENNY BENAVIDES MD CC: Sahrron Garcia PA-C; Oral Nova MD Technologist: ISHA SOW; JOSHUA IBARRA; ERLIN THAKUR Transcribed Date/Time: 04/04/2016 (0655)Linen Tech: JOSÉ Printed Date/Time: 04/04/2016 (4312) BATCH NO: N/A PAGE 1 Signed Report Radiology Report from [facility] on 2016 21:53:00 DIAGNOSTIC GRANT GING REPORT [facility] - [address] [place] [address] PHONE #: [phone] FAX #: [phone] Name: VELIA TABARES Loc: E.ED Radiology No: : 1995 Age: 21 Sex: F Status: REG ER Unit No: [id number] Phys: Dorys Matamoros [facility] Acct: [id number] Reason For Exam: RLQ pain Exam Date: 09/27/2016 EXAMS: CPT CODE: [id number] CT ABD/PELVIS WITH CONTRAST 65850 REASON FOR EXAM: Right lower quadrant pain COMPARISON: None TECHNIQUE: Helical post contrast enhanced images were obtained through the abdomen and post contrast helical images were obtained through the pelvis. Sagittal and coronal reformatted images were obtained and reviewed. FINDINGS: CT ABDOMEN: The included lung bases are clear. The liver is normal in size with no evidence of a hepatic lesion. Gallbladder is nondilated with no radiopaque stone. Visualized common bile ducts are normal in caliber. Spleen is normal in size and enhancement. Pancreas demonstrates normal enhancement with no mass, duct dilatation or peripancreatic inflammatory changes. Adrenal glands demonstrate normal enhancement with no nodules. There is symmetric renal size with no mass, hydronephrosis or calculus. The stomach is unremarkable in CT appearance. Loops of bowel are normal in caliber with no wall thickening or surrounding inflammatory changes. A normal appendix is visualized. There is no inflammation in the right lower quadrant. There is no mesenteric or retroperitoneal adenop athy by CT size criteria. The aorta is normal in caliber. The celiac artery, SMA and GRANT are grossly patent. Portal and mesenteric venous structures are also patent. No free air or free fluid is noted in the abdomen. PAGE 1 Signed Report (CONTINUED) DIAGNOSTIC IMAGING REPORT [facility] - [address] [place] [address] PHONE #: [phone] FAX #: [phone] Name: VELIA TABARES Loc: E.ED Radiology No: : 1995 Age: 21 Sex: F Status: REG Unit No: [id number] Phys: Dorys Matamoros [facility] Acct: [id number] Reason For Exam: lily for Exam: RLQ pain Exam Date: 09/27/2016 --------- EXAMS: CPT CODE: [id number] CT ABD/PELVIS WITH CONTRAST 47908 <Continued> CT PELVIS: The distal ureters and bladder are unremark able. Uterus and ovaries are not well assessed with CT; however they appear grossly unremarkable. There is no free air, free fluid, loculated collection or adenopathy in the pelvis. No pelvic mass, free fluid, or fluid collection. Regional skeletal structures are unremarkable. No abnormality in the regional soft tissues. IMPRESSION: 1. No acute abnormalities in the abdomen or pelvis. 2. No specific findings to account for the right lower quadrant pain. The appendix is normal in CT appearance. at 2147 Reported and signed by: HANNAH MIRANDA MD CC: Technologist: CHRISTOPHER FALK; KAMLESH MURO Transcribed Date/Time: 09/27/2016 (2146)Linen Tech: QUITA Printed Date/Time: 09/27/2016 (2152) BATCH NO: N/A PAGE 2 Signed Report Radiology Report from [facility] on 017 16:54:00 DIAGNOSTIC GRANT GING REPORT [facility] - [address] [place] [address] PHONE #: [phone] FAX #: [phone] Name: VELIA TABARES Loc: E.ED Radiology No: : 1995 Age: 21 Sex: F Status: REG ER Unit No: [id number] Phys: Anabelle Christy Alejandro [facility] Acct: [id number] Reason For Exam: left abdominal pain Exam Date: 02/07/2017 EXAMS: CPT CODE: [id number] CT ABD/PELVIS WITH CONTRAST 80116 REASON FOR EXAM: left abdominal pain TIME OF EXAM: 02/07/2017 3:50 PM COMPARISON: CT abdomen 09/27/2016. TECHNIQUE: Routine helical contrast-enhanced CT images were obtained through the abdomen and pelvis. Postprocessed coronal and sagittal reformats were reviewed. FINDINGS: Included Lung Bases: Linear airspace opacity noted in the left lower lobe. 4 mm noncalcified nodule in the left lower lobe, stable from prior exam. There is no consolidation or acute abnormality. CT Abdomen: The liver, spleen, kidneys, adrenal glands, and pancreas all have a normal appearance. There is no mesenteric or retroperitoneal adenopathy. The appendix is not well seen, however, there is no inflammatory change in the region of the appendix to suggest appendicitis. The bowel loops are nondilated. There is no free fluid or free air. No focal bony abnormality is seen. CT Pelvis: Ureters and bladder are within normal limits. There is no free air, free fluid, loculated collection, or adenopathy in the pelvis. The osseous and soft tissue structures are age appropriate. IMPRESSION: 1. No acute abnormality in the abdomen or pelvis. 2. Linear airspace opacity in the left lower lobe. This likely relates to atelectasis. Infection is less likely but difficult to completely exclude. Please correlate with patient's symptoms. Exam discussed with Dr. Hobbs at 02/07/2017 approximately 420 PM. I have personally reviewed these images and corrected the resident physician's interpretation if necessary. PAGE 1 Signed Report (CONTINUED) DIAGNOSTIC IMAGING REPORT [facility] - [address] [place] [address] PHONE #: [phone] FAX #: [phone] Name: VELIA TABARES Loc: E.ED Radiology No: : 1995 Age: 21 Sex: F Status: REG ER Unit No: [id number] Phys: ROBIN Mejía HarrisAnabelle Alejandro [employer] Acct: [id number] Reason For Exam: left abdominal pain Exam Date: 02/07/2017 --------- EXAMS: CPT CODE: [id number] CT ABD/PELVIS WITH CONTRAST 92970 <Continued> at 5688 RESIDENT: MARIELLA DOBBINS MD Reported and signed by: JENNY BENAVIDES MD CC: Leonardo Rodriguez DO Technologist: CHRISTOPHER FALK Transcribed Date/Time: 02/07/2017 (3518)Linen Tech: JOSÉ Printed Date/Time: 02/07/2017 (9745) BATCH NO: N/A PAGE 2 Signed Report [facility] 2016 17:59:00 DIAGNOSTIC GRANT GING REPORT [facility] - [address] [place] [address] PHONE #: [phone] FAX #: [phone] Name: VELIA TABARES Loc: E.ED Radiology No: : 1995 Age: 21 Sex: F Status: REG ER Unit No: [id number] Phys: Ck Leung MD Acct: [id number] Reason For Exam: abd pain/hx colitis Exam Date: 02/24/2017 EXAMS: CPT CODE: [id number] CT ABD/PELVIS WITH CONTRAST 91697 - CT ABD/PELVIS WITH CONTRAST Clinical information: 21-year-old female with abdominal pain and history of colitis Technique: Post IV contrast axial images were obtained of the abdomen and pelvis with coronal and sagittal reformats Comparison: CT dated 02/07/17 Findings: There is fibroatelectasis in the lingula, unchanged since 02/07/17. No other significant abnormality is seen in the lower chest. On review of bone windows, no aggressive-appearing or destructive osseous lesion is seen. Abdomen pelvis: No free air is seen. There is no bowel dilatation or evidence of bowel obstruction. The appendix has a normal appearance and is best seen on sagittal series 5, images 177-195. Several discrete right lower quadrant mesenteric lymph nodes are noted. There is trace pelvic free fluid. There is a corpus luteal cyst in the left ovary measuring 1.7 cm. There is trace fluid within the endometrial canal within the uterine fundus. The bladder is mildly distended. No pelvic ascites or adenopathy is seen. The liver, gallbladder, biliary tree, spleen, adrenal glands, and pancreas appear normal. The caliber of the abdominal aorta is normal. The abdominal vasculature appears patent. The Impression: 1. No evidence of bowel obstruction or other acute GI tract abnormality. Normal appearance of the appendix. 2. Small volume of pelvic free fluid, left ovarian corpus luteal cyst, and trace fluid in the endometrial canal. These finds are likely physiologic. 3. Stable fibroatelectasis in the lingula. PAGE 1 Signed Report (CONTINUED) DIAGNOSTIC IMAGING REPORT [facility] - [address] [place] [address] PHONE #: [phone] FAX #: [phone] Name: VELIA TABARES Loc: E.ED Radiology No: : 1995 Age: 21 Sex: F Status: REG ER Unit No: [id number] Phys: Ck Leung MD Acct: [id number] Reason For Exam: abd pain/hx colitis Exam Date: 02/24/2017 --------- EXAMS: CPT CODE: [id number] CT ABD/PELVIS WITH CONTRAST 04882 <Continued> Electronically Signed by LISETTE SANTANA on 07/2016 at 1753 Reported and signed by: LISETTE SANTANA CC: Leonardo Rodriguez DO Technologist: MICHELL RENTERIA Transcribed Date/Time: 02/24/2017 (1753)Linen Tech: PBAALCHG Printed Date/Time: 02/24/2017 (1753) BATCH NO: N/A PAGE 2 Signed Report Radiology Report from [facility] on 02/27/20 17 10:39:00 DIAGNOSTIC GRANT GING REPORT [facility] - [address] [place] [address] PHONE #: [phone] FAX #: [phone] Name: VELIA TABARES Loc: E.ED Radiology No: : 1995 Age: 21 Sex: F Status: DEP ER Unit No: [id number] Phys: Kristina Montoya APRN Acct: [id number] Reason For Exam: pelvic pain, RLQ pain Exam Date: 02/25/2017 Report Has Been Amended EXAMS: CPT CODE: [id number] TRANSVAGINAL NON-OB 10990 Addendum - 02/26/2017 SIGNED 02/26/2017 ADDENDUM: [id number] US/TRANOB Addendum: Please note the technique should indicate that both transabdominal and transvaginal pelvic ultrasound was performed. at 1034 Reported and signed by: JENNY BENAVIDES MD Transcribed: 02/26/2017 (6806) [facility] Report REASON FOR EXAM: pelvic pain, RLQ pain LAST MENSTRUAL PERIOD: 01/29/2017 TIME OF EXAM: 02/25/2017 5:40 PM COMPARISON: CT abdomen pelvis on 02/24/2017 TECHNIQUE: High-resolution grayscale and color-flow transvaginal pelvic ultrasound was performed. FINDINGS: The uterus is anteverted. It measures 3.1 cm AP, 6.2 cm transverse, and 4.3 cm in length. No focal myometrial mass is seen. The endometrium echo stripe has a normal appearance and measures 14 mm in maximal AP dimension. The cervix is visualized and has a normal sonographic appearance. The right ovary measures 2.9 x 1.9 x 1.7 cm and has a normal appearance. There is no right adnexal mass. The left ovary measures 3.7 x 2.1 x 2.2 cm and has a normal appearance. There is no left adnexal mass. Normal symmetric ovarian color and spectral Doppler is seen PAGE 1 Signed Report (CONTINUED) DIAGNOSTIC IMAGING REPORT [facility] - [address] [place] [address] PHONE #: [phone] FAX #: [phone] ---- Name: VELIA TABARES Loc: E.ED Radiology No: : 1995 Age: 21 Sex: F Status: DEP ER Unit No: [id number] Phys: LEATHA Mejía Kristina Dumas APRN Acct: [id number] Reason For Exam: lily for Exam: pelvic pain, RLQ Exam Date: 02/25/2017 Report Has Been Amended EXAMS: CPT CODE: [id number] TRANSVAGINAL NON-OB 10591 <Continued> bilaterally. No free fluid is visualized within the posterior cul-de-sac. IMPRESSION: 1. No focal uterine mass. 2. Normal appearing ovaries. No adnexal mass. Exam discussed with Acevedoclotilde Dumas at 02/25/2017 5:44 PM. I have personally reviewed these images and corrected the resident physician's interpretation if necessary. at 1909 RESIDENT: REN DON DO Reported and signed by: JENNY BENAVIDES MD CC: Technologist: MANNY HIGUERA Transcribed Date/Time: 02/25/2017 (140)Linen Tech: JOSÉ Printed Date/Time: 02/26/2017 (6660) BATCH NO: N/A PAGE 2 Signed Report Radiology Report from [facility] on 02/27/20 17 10:39:00 DIAGNOSTIC GRANT GING REPORT [facility] - [address] [place] [address] PHONE #: [phone] FAX #: [phone] Name: RAYSHAWNVELIA EDWARDS PITER Loc: E.ED Radiology No: : 1995 Age: 21 Sex: F Status: [facility] Unit No: [id number] Phys: Kristina Montoya [employer] Acct: [id number] Reason For Exam: lower abdominal pain Exam Date: 02/25/2017 EXAMS: CPT CODE: [id number] SONO PELVIS 13216 REASON FOR EXAM: pelvic pain, RLQ pain LAST MENSTRUAL PERIOD: 01/29/2017 TIME OF EXAM: 02/25/2017 5:40 PM COMPARISON: CT abdomen pelvis on 02/24/2017 TECHNIQUE: High-resolution grayscale and color-flow transabdominal and transvaginal pelvic ultrasound was performed. FINDINGS: The uterus is anteverted. It measures 3.1 cm AP, 6.2 cm transverse, and 4.3 cm in length. No focal myometrial mass is seen. The endometrium echo stripe has a normal appearance and measures 14 mm in maximal AP dimension. The cervix is visualized and has a normal sonographic appearance. The right ovary measures 2.9 x 1.9 x 1.7 cm and has a normal appearance. There is no right adnexal mass. The left ovary measures 3.7 x 2.1 x 2.2 cm and has a normal appearance. There is no left adnexal mass. Normal symmetric ovarian color and spectral Doppler is seen bilaterally. No free fluid is visualized within the posterior cul-de-sac. IMPRESSION: 1. No focal uterine mass. 2. Normal appearing ovaries. No adnexal mass. Exam discussed with Kristina Dumas at 02/25/2017 5:44 PM. I have personally reviewed these images and corrected the resident physician's interpretation if necessary. PAGE 1 Signed Report (CONTINUED) DIAGNOSTIC IMAGING REPORT [facility] - [address] [address] PHONE #: [phone] FAX #: [phone] Name: VELIA TABARES Loc: E.ED Radiology No: : 1995 Age: 21 Sex: F Status: DEP Unit No: [id number] Phys: Kristina Montoya APRN Acct: [id number] Reason For Exam: lower abdominal pain Exam Date: 02/25/2017 EXAMS: CPT CODE: [id number] SONO PELVIS 89045 <Continued> at 1033 Reported and signed by: JENNY BENAVIDES MD CC: Technologist: MANNY HIGUERA Transcribed Date/Time: 02/26/2017 (1033)Linen Tech: JOSÉ Printed Date/Time: 02/26/2017 (2263) BATCH NO: N/A PAGE 2 Signed Report Radiology Report from [facility] on 2017 23:50:00 DIAGNOSTIC [facility] [place] [address] [address] PHONE #: [phone] FAX #: [phone] Name: VELIA TABARES Loc: E.ED Radiology No: : 1995 Age: 22 Sex: F Status: REG ER Unit No: [id number] Phys: Elijah iLang MD Acct: [id number] Reason For Exam: Right lower chest pain Exam Date: 04/28/2017 EXAMS: CPT CODE: [id number] CHEST AP/PA ONLY 51480 REASON FOR EXAM: Right lower chest pain TIME OF CURRENT STUDY: 04/28/2017 11:35 PM COMPARISON: 04/04/2016 FINDINGS: Single frontal view of the chest is obtained. The cardiomediastinal silhouette and the pulmonary vascularity are within normal limits. Lung volumes are slightly low. No lobar areas of consolidation are seen. No pleural effusions are present. There are no pneumothoraces. The osseous structures are unchanged. IMPRESSION: 1. No acute pulmonary process. at 9159 Reported and signed by: ADELSO KHAN MD CC: Elijah Greer MD Technologist: KAMLESH MURO Transcribed Date/Time: 04/28/2017 (3131)Linen Tech: PJHUEY Printed Date/Time: 04/28/2017 (3051) BATCH NO: N/A PAGE 1 Signed Report Radiology Report from [facility] on 2017 14:17:00 PATIENT NAME: VELIA TABARES UNIT NO: [id number] EXAMS: CPT CODE: [id number] CT ABD/PELVIS WITH CONTRAST 90995 TIME 1350 REASON FOR EXAM: Vomiting blood COMPARISON: 02/24/2017, [place] TECHNIQUE: Helical postcontrast enhanced images were obtained through the abdomen and postcontrast helical images were obtained through the pelvis. FINDINGS CT Abdomen: The liver, spleen, gallbladder, pancreas, adrenal glands and kidneys all have a normal appearance. There is no mesenteric or retroperitoneal adenopathy. Distal esophagus shows no focal wall thickening. The gastric fundus is decompressed but similar in appearance to that from the February 2017 study. Remainder of the stomach shows no wall thickening or mass. Distal stomach, and the prepyloric region is decompressed as well. No mesenteric stranding is seen in this area A normal appendix is visualized. The bowel loops are nondilated. There is no free fluid or free air. The included lung bases are clear. No focal bony abnormality is seen. CT Pelvis: Ureters and bladder are grossly normal. There is no free air, free fluid, loculated collection or adenopathy in the pelvis. Ovaries bilaterally are normal in their appearance as is the uterus. No inguinal or side wall adenopathy is present. The osseous and soft tissue structures are age appropriate. IMPRESSION: No acute abnormalities in the abdomen or pelvis. Source for hematemesis is not apparent Report was called per request at 1400 hours to Sharron LEDEZMA. at 1411 Reported and signed by: DANIEL BECKER JR., MD [facility] ER NAME: VELIA TABARES [address] [facility] HP: [phone] AGE: 22 S:F [place] [address] : 1995 LOC: E.ED PHYS: [facility] - Sharron Garcia PHONE #: [phone] EXAM DATE: 07/04/2017 STATUS: REG ER FAX #: [phone] A#: [id number] U#: [id number] PAGE 1 Signed Report (CONTINUED) PATIENT NAME: VELIA TABARES UNIT NO: [id number] EXAMS: CPT CODE: [id number] CT ABD/PELVIS WITH CONTRAST 77818 <Continued> CC: Danika Cantu DO TECHNOLOGIST: MATT KING TRANSCRIBED DATE/Time: 07/04/2017 1411 BY: UMM EXAM COMPLETE DATE/TIME: [id number] 1350 D/TM:07/04/2017 (1417) [facility] ER NAME: VELIA TABARES [address] [facility] HP: [phone] AGE: 22 S:B[place] [address] : 1995 LOC: E.ED PHYS: Sharron Richards PHONE #: [phone] EXAM DATE: 07/04/2017 STATUS: REG ER FAX #: [phone] A#: [id number] U#: [id number] PAGE 2 Signed Report *Final Page* Encounters ACCT No. Visit Date/Time Discharge Status Pt. Type Provider Facility Loc./Unit Complaint [id number] 04/12/2017 15:00:00 04/12/2017 16:0 0:00 DIS Unknown [id number] 07/19/2017 14:50:00 07/19/2017 23:59: 59 CLS Outpatient SAJI CANTU [facility] [id number] 06/18/2017 15:39:00 06/18/2017 23:59: 59 CLS Outpatient D[facility]IKA [facility] [id number] 06/06/2017 14:33:00 06/06/2017 23:59: 59 CLS Outpatient [facility]IKA [facility] [id number] 08/26/2017 16:09:00 Document Registration [id number] 07/06/2017 17:21:00 Document Registration [id number] 07/04/2017 11:28:00 018 15:45:00 DIS Emergency Percy WEBER, Elijah [facility] & ER E.ED [id number] 04/28/2017 22:14:00 018 23:43:00 DIS Emergency Percy WEBER, Elijah [facility] & ER E.ED [id number] 02/25/2017 16:01:00 017 19:00:00 DIS Emergency Jaden WEBER, Chriss [facility] & ER E.ED [id number] 02/24/2017 16:03:00 017 18:05:00 DIS Emergency Anjel WEBER, [facility] & ER E.ED [id number] 02/07/2017 11:12:00 017 18:05:00 DIS Emergency Anjel WEBER, [facility] & ER E.ED [id number] 02/02/2017 18:07:00 017 20:07:00 DIS Emergency Anjel WEBER, [facility] & ER E.ED [id number] 01/05/2017 18:29:00 017 20:17:00 DIS Emergency Jovanni WEBER, [facility] & ER E.ED [id number] 12/16/2016 13:35:00 017 18:31:00 DIS Emergency Anjel WEBER, [facility] & ER E.ED [id number] 09/27/2016 20:02:00 017 22:13:00 DIS Emergency Percy WEBER, Elijah [facility] & ER E.ED [id number] 04/04/2016 11:43:00 14:29:00 DIS Emergency Anjel WEBER, [facility] & ER E.ED [id number] 01/07/2016 18:41:00 20:14:00 DIS Emergency Adonis WEBER, [facility] & ER E.ED [id number] 12/22/2015 16:42:00 18:18:00 DIS Emergency Anjel WEBER, [facility] & ER E.ED [id number] 09/18/2015 23:51:00 00:44:00 DIS Emergency Anjel WEBER, [facility] & ER E.ED [id number] 09/18/2015 17:48:00 19:00:00 DIS Emergency Anjel WEBER, [facility] & ER E.ED [id number] 08/31/2015 19:38:00 20:40:00 DIS Emergency Percy WEBER, [facility] & ER E.ED [id number] 08/01/2015 20:58:00 22:55:00 DIS Emergency Percy WEBER, [facility] & ER E.ED [id number] 07/14/2015 20:29:00 23:19:00 DIS Emergency Percy WEBER, [facility] & ER E.ED [id number] 01/21/2019 11:20:00 01/21/2019 23:59: 59 CLS Outpatient DAQUAN JAMES SREESharath FITO [id number] 01/21/2019 11:20:00 Document Registration [id number] 06/14/2019 09:49:00 06/14/2019 10:50 :00 DIS Outpatient Angel [facility] ER [id number] 05/26/2019 05:14:00 05/26/2019 07:19 :00 DIS Outpatient Anjum [facility] ER [id number] 05/09/2019 16:41:00 05/09/2019 23:59 :00 DIS Outpatient BrunoDonna [id number] 03/27/2019 16:51:00 03/27/2019 23:59 :00 DIS Outpatient BrunoDonna [id number] 02/18/2019 10:26:00 02/18/2019 23:59: 00 DIS Outpatient BrunoDonna [id number] 01/10/2019 10:36:00 01/10/2019 23:59: 00 DIS Outpatient Milton Renteria [id number] 08/04/2018 17:43:00 08/04/2018 20:20: 00 DIS Outpatient AFSANEH DRIVER [facility] ER [id number] 12/18/2017 13:55:00 12/18/2017 23:59: 00 DIS Outpatient Milton Renteria [id number] 12/14/2017 10:54:00 12/14/2017 23:59: 00 DIS Outpatient Milton Renteria [id number] 11/26/2016 11:00:00 11/26/2016 12:50: 00 DIS Outpatient Jonasjorge [facility] ER [id number] 05/28/2018 15:29:00 Document Registration [id number] 02/22/2018 13:22:00 Document Registration [id number] 01/11/2018 08:11:00 Document Registration [id number] 12/14/2017 08:19:00 Document Registration [id number] 12/11/2017 10:34:00 Document Registration [id number] 11/26/2016 11:35:37 Document Registration [id number] 06/28/2019 03:27:00 04:32:00 DIS Emergency HAWK WEBER, DION Pino [facility] ER DIFFERENCE IN E YE PRESSURE [id number] 05/11/2019 17:31:00 18:54:00 DIS Outpatient DION ARECHIGA MD [facility] ER OD [id number] 12/16/2018 07:45:00 17:45:00 DIS Outpatient FENECH JINA WHITE S [facility] LDRP LABOR [id number] 11/25/2018 18:23:00 20:25:00 DIS Outpatient SEALS DO CHARU E [facility] WSo CONTRACTIONS [id number] 10/23/2018 20:42:00 22:40:00 DIS Outpatient RA WEBER, DAMON Vickers [facility] ABD PAIN,VAGINA L BLEEDING [id number] 09/27/2018 12:21:00 17:50:00 DIS Outpatient SHARP [facility] C [facility] UPPER ABD PAIN [id number] 08/09/2018 12:47:00 14:55:00 DIS Outpatient FENECH DO, JINA S [facility] WSo ABD PAIN [id number] 08/07/2018 09:44:00 23:59:59 CLS Outpatient JINA SANTIAGO DO Via [facility] RAD PREGANT [id number] 07/12/2018 12:56:00 14:41:00 DIS Emergency RITA VILLAVICENCIO MD Via [facility] ER ABDOMINLA PAIN [id number] 07/06/2018 20:10:00 019 21:59:00 DIS Emergency VICTOR M CASTELLANO Via [facility] ER PAIN IN ABD, BLOODY DIS CHARGE 15 WEEKS PREG [id number] 05/05/2018 20:00:00 019 16:10:00 DIS Inpatient TESSA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
== END 2019-06-28 04:32 | disposition home or self-care (01) ==
LOC: EDUNIT# 03:25 → ER 03:27
DX: R20.2 Paresthesia of skin (principal); H53.8 Other visual disturbances; F15.90 Other stimulant use, unspecified, uncomplicated; F43.20 Adjustment disorder, unspecified; F17.210 Nicotine dependence, cigarettes, uncomplicated; Z88.5 Allergy status to narcotic agent
CPT/HCPCS: 99283

== ENCOUNTER 2020-11-27 19:53 | Outpatient (CLI) | payer MEDICAID ==
[~2020-11-27] VITALS: Ht 172.7 cm; Wt 67.9 kg
[~2020-11-27 19:53] MED LIST changes: -ETOD500T; +ETOD500T4
[2020-11-27 20:23] VITALS: BP 126/80
[2020-11-27] MEDS ORDERED: FOLI0.4T6 PO (20:37)
[2020-11-27] MEDS ORDERED: CEPH500T PO (20:37)
[2020-11-27] MEDS ORDERED: PREG150C PO (20:37)
[2020-11-27 20:47] VITALS: BP 126/80
--- NOTE | 2020-11-29 08:05 | Physician Query-Final Dx ---
Clinic Account Progress/Dx Physician Query: Please give diagnosis Please include # weeks gestation Date of Service Nov 27, 2020 at 19:53 BENSON HARRIS Nov 29, 2020 08:05
== END 2020-11-27 21:20 | disposition home or self-care (01) ==
LOC: LDRP 19:53 → WSo 19:53
PROVIDERS: ATTEND Obstetrics & Gynecology
DX: O46.92 Antepartum hemorrhage, unspecified, second trimester (principal); Z3A.25 25 weeks gestation of pregnancy
CPT/HCPCS: 99212

== ENCOUNTER → 2021-02-10 | Outpatient (CLI) | payer MEDICAID ==
[~2021-02-10] MED LIST changes: +ACET-93 PO; +CEPH500T PO; +FOLI0.4T6 PO
== END ==
LOC: LABNPT 16:11
PROVIDERS: ATTEND Obstetrics & Gynecology
DX: N39.0 Urinary tract infection, site not specified (principal)
CPT/HCPCS: 82570; 84156

== ENCOUNTER 2021-02-14 10:00 | Inpatient (IN) | payer MEDICAID ==
[2021-02-14] VITALS (12 sets, daily range): BP systolic 112–163; BP diastolic 60–116
[~2021-02-14 10:00] MED LIST changes: -ACET-93 PO; -DULO60CA6 PO; +DULO60CA7 PO
--- NOTE | 2021-02-14 10:41 | History & Physical-OB ---
OB - Chief Complaint & HPI Date/Time Date of Admission: Date of Admission: Date seen by a Provider: Feb 14, 2021 Time Seen by a Provider: 10:05 Chief Complaint/History OB-Reason for Admission/Chief: Rupture of Membranes Hx : 2 Hx Para: 1 Expected Date of Delivery: Mar 11, 2021 Gestational Age in Weeks: 36 Gestational Age in Days: 6 Other reason for admission: sophia is a 25 year old patient with limited care who presented with complaint of contractions starting about 600 am. she states, "I was in denial because I am early". Had SROM on the way to the hospital, or on her way up to labor and delivery, with clear fluid. She was grossly ruptured and when she was moved to the bed. has been managed concurrently by Dr. Cosme and Jazmín VOGT, though she had late PNC and Dr. Cosme has only seen her twice. complicated by Late PNC, chronic hypertension vs gestational hypertension, seizure disorder, lupus and lyrica usage and tobacco use. She did not require any medications for blood pressure. 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 Menendez did not discontinue this. She apparently was told by rhuematology in 2013 that she has lupus, but that her labs have al been negative (SSA, SSB, LFT and Cr wnl, DSDNA indeterminate). Has history of tachycardia and has been on carvedilol for this and had discontinued it, so Dr. Menendez did not restart this. Smokes 3 cig/day EDC 03/11/2021 is based on LMP and consistent with US (though late). She has previous history of 38 week in 2019. Has been treated with keflex for UTI. Had appointment with Lori at [address] Cosme only was her for her first PNC in first trimester Admission Nurse Assessment Rev: Yes History of Labs A+/- HIV - HBsAg - Hep C neg GC/cl - VDRL NR GBS - Allergies and Home Medications Allergies Coded Allergies: tramadol (Verified Allergy, Unknown, 02/13/18) Patient Home Medication List Home Medication List Reviewed: Yes Cephalexin (Cephalexin) 500 Mg Tablet, 500 MG PO TID, (Reported) Entered as Reported by: HANS DALY on 11/27/202036 Folic Acid (Folic Acid) 0.4 Mg Tablet, 0.4 MG PO, (Reported) Entered as Reported by: HANS DALY on 11/27/202036 Pregabalin (Lyrica) 150 Mg Capsule, 150 MG PO DAILY, (Reported) Entered as Reported by: HANS DALY on 11/27/202036 Vit W-Ca,Fe,FA(<1 mg) ( Vitamins) 1 Each Tablet, 1 EACH PO DAILY, (Reported) Entered as Reported by: LANEY GANN on 08/09/18 1338 OB - History Hx of Present Ultrasounds: Normal mid trimester US Obstetrical Complications: Gestational Hypertension, Other (see history; limited PNC) Information Induced Hypertension: Yes Maternal Gestational Diabetes: No Hemorrhage: Yes (reports required transfusion with last delivery but did not accept transfus) Obstetrical History Hx : 2 Hx Para: 1 (first child passed at 3 months due to sids) Hx # Term Pregnancies: 1 Hx Termination: No Hx Multiple Gestation: No Hx Ectopic : No Hx Stillbirth: No Hx Complication: No Hx Induced Hypertens: Yes Hx Maternal Gestational Diabet: No Hx Hemorrhage: Yes Delivery History Hx Dystocia: No Hx Forceps Assisted Delivery: No Hx Vacuum Extraction Assisted: No Hx Placenta Abnormality: No Hx Distress: No Hx Large For Gestational Age I: No Hx Small for Gestational Age I: No Hx Section: No Hx Blood Disorders: No Patient Past Medical History n/a Social History/Family History Alcohol Use: Denies Use Recreational Drug Use: No Smoking Cessation: Current every day smoker 2nd Hand Smoke Exposure: No Immunizations Hepatitis A: Yes Hepatitis B: Yes Tetanus Booster (TDap): Unknown Date of Influenza Vaccine: Mar 07, 2018 Rubella: immune RPR/VDRL: Negative GBS Status: Negative HBsAG: Negative OB - Admission Exam Physical Exam HEENT: NCAT Heart: Rhythm Normal Lungs: Clear Abdomen: Gravid Extremities: Normal Reflexes: Normal Cervical Dilatation: 10cm Effacement: 100% Station: +3 Membranes: Ruptured Amniotic Fluid: Clear OB - Assessment/Plan/Diagnosis Assessment Assessment: active labor, rupture of membranes Admission Dx SROM Active labor 36 + weeks Chronic hypertension vs gestation hypertension Admission Status: Inpatient Order (span 2 midnights) Reason for Inpatient Admission: labor Plan Plan: Expectant Management SAM SHARP DO Feb 14, 2021 10:41
--- NOTE | 2021-02-14 10:42 | OB Labor & Delivery Record ---
Vag Delivery Note Vag Delivery Note Date of Delivery: 02/14/21 Preoperative Diagnosis: Velia Burr is a 25 /Para 2 / 1, Gestational Age 36 6/7, SROM active labor Postoperative Diagnosis: Same Surgeon: SAM SHARP Anesthesia: none Delivery Type: Findings: Viable male , apgars pending, weight 7# 1ounce Lacerations: right labial laceration Intact placenta with 3 vessel cord. No nuchal cord, body cord or shoulder dystocia Cytotec 800 mcg placed for hemorrhage prophylaxis Estimated Blood Loss: 750 ml Complications: None Condition: Stable Description of Procedure: The patient is a 25 year old female who presented in active labor with SROM. Her labor course was remarkable for on initial exam The infant's head was delivered atraumatically in the OA position. The shoulders and remainder of the infant's body were then delivered without difficulty. Upon delivery, the head was held below the level of the perineum and the mouth and nares were bulb suctioned. The cord was doubly clamped and cut and the was handed off to the pediatric staff. An intact placenta with 3-vessel cord delivered via Sam and there was found to be minimal bleeding.~ Vigorous fundal massage was performed and the fundus was found to be firm. IV oxytocin was given. Examination of the vagina and perineum revealed a right labial laceration repaired in the usual fashion with 3-0 vicryl suture. Following the repair, sponge, instrument and needle counts were correct. Mom and baby were both in stable condition in the labor suite. SAM SHARP DO Feb 14, 2021 10:42
[2021-02-14] MEDS ORDERED: BENZOCAINE/MENTHOL (DERMOPLAST) 56 ML CAN TP PRN (10:45)
[2021-02-14] MEDS ORDERED: NALOXONE 0.4 MG/ML 1 ML (NARCAN) VIAL IV PRN (10:45)
[2021-02-14] MEDS ORDERED: MEASLES,MUMPS,RUBELLA 1 EA INJ SQ ONE (10:45)
[2021-02-14] MEDS ORDERED: WITCH HAZEL(TUCKS) 40 EA JAR TOP PRN (10:45)
[2021-02-14] MEDS ORDERED: OXYTOCIN PRE-MIX DRIP 500 ML IV SCH (10:45)
[2021-02-14] MEDS ORDERED: CARBOPROST (HEMABATE) 250 MCG/ML AMP IM PRN (10:45)
[2021-02-14] MEDS ORDERED: TETANUS,DIPTH,PERTUSS P/F (BOOSTRIX) 0.5 ML VIAL IM ONE (10:45)
[2021-02-14] MEDS: IBUPROFEN 600 MG (MOTRIN) TAB PO SCH ×3 (10:58→23:47)
[2021-02-14 12:00] LABS: BASOPHILS % (AUTO) 0 % (0-10); EOSINOPHILS # (AUTO) 0.1 10^3/uL (0.0-0.3); EOSINOPHILS % (AUTO) 0 % (0-10); HEMATOCRIT 41 % (35-52); HEMOGLOBIN 13.7 g/dL (11.5-16.0); LYMPHOCYTES # (AUTO) 3.6 10^3/uL (1.0-4.0); LYMPHOCYTES % (AUTO) 28 % (12-44); MEAN CORPUSCULAR HEMOGLOBIN 33 pg (25-34); MEAN CORPUSCULAR HGB CONC 34 g/dL (32-36); MEAN CORPUSCULAR VOLUME 98 fL (80-99); MEAN PLATELET VOLUME 9.8 fL (9.0-12.2); MONOCYTES # (AUTO) 0.8 10^3/uL (0.0-1.0); MONOCYTES % (AUTO) 6 % (0-12); NEUTROPHILS # (AUTO) 8.5 10^3/uL (1.8-7.8); NEUTROPHILS % (AUTO) 65 % (42-75); PLATELET COUNT 332 10^3/uL (130-400); WHITE BLOOD COUNT 13.2 10^3/uL (4.3-11.0)
[2021-02-14 12:09] LABS: AMPHETAMINE SCREEN, URINE POSITIVE (NEGATIVE); BARBITURATE SCREEN URINE NEGATIVE (NEGATIVE); BENZODIAZEPINES SCREEN URINE POSITIVE (NEGATIVE); CANNABINOID SCREEN, URINE NEGATIVE (NEGATIVE); COCAINE SCREEN URINE NEGATIVE (NEGATIVE); METHADONE STAT NEGATIVE (NEGATIVE); METHAMPHETAMINE SCREEN URINE S POSITIVE (NEGATIVE); OPIATE SCREEN URINE NEGATIVE (NEGATIVE); OXYCODONE STAT NEGATIVE (NEGATIVE); PROPOXYPHENE STAT NEGATIVE (NEGATIVE); TRICYCLIC ANTIDEPRESSANTS SCRE NEGATIVE (NEGATIVE)
[2021-02-14] MEDS ORDERED: LABETALOL HCL 20 MG/4 ML VIAL IV ONE (12:15)
[2021-02-14 12:18] LABS: ALBUMIN 3.2 GM/DL (3.2-4.5); BILIRUBIN,TOTAL 0.2 MG/DL (0.1-1.0); CALCIUM 9.3 MG/DL (8.5-10.1); CREATININE SERUM 0.54 MG/DL (0.60-1.30); POTASSIUM 3.5 MMOL/L (3.6-5.0); TOTAL PROTEIN 6.6 GM/DL (6.4-8.2)
[2021-02-14 12:26] LABS: PROTHROMBIN TIME PATIENT 13.6 SEC (12.2-14.7)
[2021-02-14] MEDS: ACETAMINOPHEN 500 MG TAB (TYLENOL) PO SCH ×2 (16:03→23:01)
[2021-02-14] MEDS: DOCUSATE SODIUM 100 MG (COLACE) CAP PO SCH (19:56)
[2021-02-14] MEDS: CATHETER FLUSH 10 ML SYR IV SCH ×2 (22:05→22:06)
[2021-02-15 04:00] VITALS: BP 120/79
[2021-02-15 05:40] LABS: BASOPHILS % (AUTO) 0 % (0-10); EOSINOPHILS # (AUTO) 0.1 10^3/uL (0.0-0.3); EOSINOPHILS % (AUTO) 1 % (0-10); HEMATOCRIT 35 % (35-52); LYMPHOCYTES # (AUTO) 3.5 10^3/uL (1.0-4.0); LYMPHOCYTES % (AUTO) 27 % (12-44); MEAN CORPUSCULAR HEMOGLOBIN 34 pg (25-34); MEAN CORPUSCULAR HGB CONC 34 g/dL (32-36); MEAN CORPUSCULAR VOLUME 99 fL (80-99); MEAN PLATELET VOLUME 9.6 fL (9.0-12.2); MONOCYTES # (AUTO) 1.1 10^3/uL (0.0-1.0); MONOCYTES % (AUTO) 9 % (0-12); NEUTROPHILS % (AUTO) 62 % (42-75); PLATELET COUNT 261 10^3/uL (130-400); WHITE BLOOD COUNT 12.8 10^3/uL (4.3-11.0)
[2021-02-15] MEDS: IBUPROFEN 600 MG (MOTRIN) TAB PO SCH (05:50)
[2021-02-15] MEDS: CATHETER FLUSH 10 ML SYR IV SCH (06:13)
[2021-02-15] MEDS ORDERED: FERROUS SULF 325 MG (IRON) TAB PO SCH (07:00)
[2021-02-15] MEDS ORDERED: PRENATAL VITAMIN 1 EA TAB PO SCH (07:00)
--- NOTE | 2021-02-15 07:53 | Postpartum Progress Note ---
Note Note Day # 1 BP elevated after delivery did not require treatment, but they were very high. UDS + for methamphetamine/amphetamine/benzodiazipines. She declines usage. BP have now returned to normal Labs were wnl Subjective: Patient is without complaints. Ambulating, voiding. Tolerating a regular diet without nausea or vomiting. Normal lochia. Pain is well controlled with oral pain medications. Baby was transferred to [facility]. Objective: VS - Last 72 Hours, by Label 02/14/21 02/14/21 02/14/21 02/14/21 10:15 10:25 10:35 10:45 Temp 36.1 36.4 36.3 36.5 Pulse 99 99 112 111 Resp 20 20 20 18 B/P (MAP) 125/60 (81) 133/85 (101) 132/89 (103) 134/86 (102) O2 Delivery Room Air Room Air Room Air Room Air 02/14/21 02/14/21 02/14/21 02/14/21 11:00 11:23 11:38 11:43 Temp 36.6 Pulse 102 103 85 99 Resp 18 18 18 18 B/P (MAP) 133/85 (101) 160/110 (127) 163/116 (132) 144/103 (117) O2 Delivery Room Air Room Air Room Air Room Air 02/14/21 02/14/21 02/14/21 02/14/21 12:25 16:00 19:47 23:12 Temp 36.1 36.8 36.3 36.3 Pulse 84 95 96 111 Resp 20 20 18 16 B/P (MAP) 133/90 (104) 129/88 (102) 132/74 (93) 112/70 (84) Pulse Ox 96 98 O2 Delivery Room Air Room Air Room Air Room Air 02/15/21 04:00 Temp 36.3 Pulse 96 Resp 18 B/P (MAP) 120/79 (93) Pulse Ox 98 O2 Delivery Room Air 02/14/21 02/15/21 23:12 04:00 Temp 36.3 36.3 Pulse 111 96 Resp 16 18 B/P (MAP) 112/70 (84) 120/79 (93) Pulse Ox 98 98 O2 Delivery Room Air Room Air 02/15/21 00:00 Intake Total 500 ml Balance 500 ml Laboratory Tests Test 02/14/21 10:14 02/14/21 10:16 02/14/21 10:41 02/14/21 12:03 Range/Units White Blood Count 13.2 H 4.3-11.0 10^3/uL Red Blood Count 4.13 3.80-5.11 10^6/uL Hemoglobin 13.7 11.5-16.0 g/dL Hematocrit 41 35-52 % Mean Corpuscular Volume 98 80-99 fL Mean Corpuscular Hemoglobin 33 25-34 pg Mean Corpuscular Hemoglobin Concent 34 32-36 g/dL Red Cell Distribution Width 13.1 10.0-14.5 % Platelet Count 332 130-400 10^3/uL Mean Platelet Volume 9.8 9.0-12.2 fL Immature Granulocyte % (Auto) 1 % Neutrophils (%) (Auto) 65 42-75 % Lymphocytes (%) (Auto) 28 12-44 % Monocytes (%) (Auto) 6 0-12 % Eosinophils (%) (Auto) 0 0-10 % Basophils (%) (Auto) 0 0-10 % Neutrophils # (Auto) 8.5 H 1.8-7.8 10^3/uL Lymphocytes # (Auto) 3.6 1.0-4.0 10^3/uL Monocytes # (Auto) 0.8 0.0-1.0 10^3/uL Eosinophils # (Auto) 0.1 0.0-0.3 10^3/uL Basophils # (Auto) 0.0 0.0-0.1 10^3/uL Immature Granulocyte # (Auto) 0.1 0.0-0.1 10^3/uL Sodium Level 139 135-145 MMOL/L Potassium Level 3.5 L 3.6-5.0 MMOL/L Chloride Level 108 H 98-107 MMOL/L Carbon Dioxide Level 16 L 21-32 MMOL/L Anion Gap 15 H 5-14 MMOL/L Blood Urea Nitrogen 4 L 7-18 MG/DL Creatinine 0.54 L 0.60-1.30 MG/DL Estimat Glomerular Filtration Rate 136 BUN/Creatinine Ratio 7 Glucose Level 104 70-105 MG/DL Calcium Level 9.3 8.5-10.1 MG/DL Corrected Calcium 9.9 8.5-10.1 MG/DL Total Bilirubin 0.2 0.1-1.0 MG/DL Aspartate Amino Transf (AST/SGOT) 23 5-34 U/L Alanine Aminotransferase (ALT/SGPT) 19 0-55 U/L Alkaline Phosphatase 161 H 40-136 U/L Lactate Dehydrogenase 253 H 125-220 U/L Total Protein 6.6 6.4-8.2 GM/DL Albumin 3.2 3.2-4.5 GM/DL Urine Opiates Screen NEGATIVE NEGATIVE Urine Oxycodone Screen NEGATIVE NEGATIVE Urine Methadone Screen NEGATIVE NEGATIVE Urine Propoxyphene Screen NEGATIVE NEGATIVE Urine Barbiturates Screen NEGATIVE NEGATIVE Ur Tricyclic Antidepressants Screen NEGATIVE NEGATIVE Urine Phencyclidine Screen NEGATIVE NEGATIVE Urine Amphetamines Screen POSITIVE H NEGATIVE Urine Methamphetamines Screen POSITIVE H NEGATIVE Urine Benzodiazepines Screen POSITIVE H NEGATIVE Urine Cocaine Screen NEGATIVE NEGATIVE Urine Cannabinoids Screen NEGATIVE NEGATIVE Urine Protein 31 H 6-12 MG/DL Urine Creatinine 137 H 30-125 MG/DL Urine Protein/Creatinine Ratio 0.23 Prothrombin Time 13.6 12.2-14.7 SEC INR Comment 1.0 0.8-1.4 Activated Partial Thromboplast Time 30 24-35 SEC Fibrinogen 554 H 221-496 MG/DL Test 02/15/21 05:18 Range/Units White Blood Count 12.8 H 4.3-11.0 10^3/uL Red Blood Count 3.57 L 3.80-5.11 10^6/uL Hemoglobin 12.0 11.5-16.0 g/dL Hematocrit 35 35-52 % Mean Corpuscular Volume 99 80-99 fL Mean Corpuscular Hemoglobin 34 25-34 pg Mean Corpuscular Hemoglobin Concent 34 32-36 g/dL Red Cell Distribution Width 13.1 10.0-14.5 % Platelet Count 261 130-400 10^3/uL Mean Platelet Volume 9.6 9.0-12.2 fL Immature Granulocyte % (Auto) 1 % Neutrophils (%) (Auto) 62 42-75 % Lymphocytes (%) (Auto) 27 12-44 % Monocytes (%) (Auto) 9 0-12 % Eosinophils (%) (Auto) 1 0-10 % Basophils (%) (Auto) 0 0-10 % Neutrophils # (Auto) 8.0 H 1.8-7.8 10^3/uL Lymphocytes # (Auto) 3.5 1.0-4.0 10^3/uL Monocytes # (Auto) 1.1 H 0.0-1.0 10^3/uL Eosinophils # (Auto) 0.1 0.0-0.3 10^3/uL Basophils # (Auto) 0.0 0.0-0.1 10^3/uL Immature Granulocyte # (Auto) 0.1 0.0-0.1 10^3/uL Physical Exam: General - Alert and oriented, no apparent distress Abdomen - Soft, appropriately tender to palpation, non-distended, fundus firm at umbilicus Extremities - no edema, negative August's bilaterally Assessment: 1 post- day #1 status post [precipitous vaginal delivery. Recovering well, hemodynamically stable 2. UDS positive [] Plan: Routine care. Encourage breast feeding. Encourage ambulation. Ferrous sulfate supplementation. Plan for discharge today Vitals - Labs Vital Signs - I&O Vital Signs Date Time Temp Pulse Resp B/P (MAP) Pulse Ox O2 Delivery O2 Flow Rate FiO2 02/15/21 04:00 36.3 96 18 120/79 (93) 98 Room Air 02/14/21 23:12 36.3 111 16 112/70 (84) 98 Room Air 02/14/21 19:47 36.3 96 18 132/74 (93) 96 Room Air 02/14/21 16:00 36.8 95 20 129/88 (102) Room Air 02/14/21 12:25 36.1 84 20 133/90 (104) Room Air 02/14/21 11:43 36.6 99 18 144/103 (117) Room Air 02/14/21 11:38 85 18 163/116 (132) Room Air 02/14/21 11:23 103 18 160/110 (127) Room Air 02/14/21 11:00 102 18 133/85 (101) Room Air 02/14/21 10:45 36.5 111 18 134/86 (102) Room Air 02/14/21 10:35 36.3 112 20 132/89 (103) Room Air 02/14/21 10:25 36.4 99 20 133/85 (101) Room Air 02/14/21 10:15 36.1 99 20 125/60 (81) Room Air I & O 02/15/21 07:00 Intake Total 1100 ml Balance 1100 ml Labs Laboratory Tests 02/14/21 10:14: White Blood Count 13.2H, Red Blood Count 4.13, Hemoglobin 13.7, Hematocrit 41, Mean Corpuscular Volume 98, Mean Corpuscular Hemoglobin 33, Mean Corpuscular Hemoglobin Concent 34, Red Cell Distribution Width 13.1, Platelet Count 332, Mean Platelet Volume 9.8, Immature Granulocyte % (Auto) 1, Neutrophils (%) (Auto) 65, Lymphocytes (%) (Auto) 28, Monocytes (%) (Auto) 6, Eosinophils (%) (Auto) 0, Basophils (%) (Auto) 0, Neutrophils # (Auto) 8.5H, Lymphocytes # (Auto) 3.6, Monocytes # (Auto) 0.8, Eosinophils # (Auto) 0.1, Basophils # (Auto) 0.0, Immature Granulocyte # (Auto) 0.1, Sodium Level 139, Potassium Level 3.5L, Chloride Level 108H, Carbon Dioxide Level 16L, Anion Gap 15H, Blood Urea Nitrogen 4L, Creatinine 0.54L, Estimat Glomerular Filtration Rate 136, BUN/Creatinine Ratio 7, Glucose Level 104, Calcium Level 9.3, Corrected Calcium 9.9, Total Bilirubin 0.2, Aspartate Amino Transf (AST/SGOT) 23, Alanine Aminotransferase (ALT/SGPT) 19, Alkaline Phosphatase 161H, Lactate Dehydrogenase 253H, Total Protein 6.6, Albumin 3.2 02/14/21 10:16: Urine Opiates Screen NEGATIVE, Urine Oxycodone Screen NEGATIVE, Urine Methadone Screen NEGATIVE, Urine Propoxyphene Screen NEGATIVE, Urine Barbiturates Screen NEGATIVE, Ur Tricyclic Antidepressants Screen NEGATIVE, Urine Phencyclidine Screen NEGATIVE, Urine Amphetamines Screen POSITIVEH, Urine Methamphetamines Screen POSITIVEH, Urine Benzodiazepines Screen POSITIVEH, Urine Cocaine Screen NEGATIVE, Urine Cannabinoids Screen NEGATIVE 02/14/21 10:41: Urine Protein 31H, Urine Creatinine 137H, Urine Protein/Creatinine Ratio 0.23 02/14/21 12:03: Prothrombin Time 13.6, INR Comment 1.0, Activated Partial Thromboplast Time 30, Fibrinogen 554H 02/15/21 05:18: White Blood Count 12.8H, Red Blood Count 3.57L, Hemoglobin 12.0, Hematocrit 35, Mean Corpuscular Volume 99, Mean Corpuscular Hemoglobin 34, Mean Corpuscular Hemoglobin Concent 34, Red Cell Distribution Width 13.1, Platelet Count 261, Mean Platelet Volume 9.6, Immature Granulocyte % (Auto) 1, Neutrophils (%) (Auto) 62, Lymphocytes (%) (Auto) 27, Monocytes (%) (Auto) 9, Eosinophils (%) (Auto) 1, Basophils (%) (Auto) 0, Neutrophils # (Auto) 8.0H, Lymphocytes # (Auto) 3.5, Monocytes # (Auto) 1.1H, Eosinophils # (Auto) 0.1, Basophils # (Auto) 0.0, Immature Granulocyte # (Auto) 0.1 SAM SHARP DO Feb 15, 2021 07:53
[2021-02-15 08:57] VITALS: BP 131/91
[2021-02-15] MEDS: ACETAMINOPHEN 500 MG TAB (TYLENOL) PO SCH (08:57)
[2021-02-15] MEDS: DOCUSATE SODIUM 100 MG (COLACE) CAP PO SCH (08:57)
[2021-02-15] MEDS ORDERED: ACET-93 PO (09:43)
[2021-02-15] MEDS ORDERED: IBUP-844 PO (09:43)
--- NOTE | 2021-02-15 09:44 | Discharge Inst-Women's Service ---
Discharge Inst-Women's Serv Depart Medication/Instructions New, Converted or Re-Newed RX: Transmitted to Pharmacy Final Diagnosis labor vaginal delivery Problems Reviewed?: Yes Consults/Follow Up Additional Follow Up: Yes (6 week for post exam with Lori) Activity Activity: Activity as Tolerated Driving Instructions: You May Drive NO SMOKING: NO SMOKING Nothing Inside Vagina: No Douching, No [place], No Tampons Diet Discharge Diet: No Restrictions Symptoms to Report to : Swelling Increased, Bleeding Excessive, Pain Increased, Fever Over 101 Degrees F, Vaginal Bleeding Increase, Cramps in Feet or Legs, Vaginal Discharge Foul For Any Problems or Questions: Contact Your Physician SAM SHARP DO Feb 15, 2021 09:44
== END 2021-02-15 10:50 | disposition home or self-care (01) | DRG 807 ==
LOC: WSo 10:00 → LDRP 10:00 → WSo 10:01 → LDRP 10:02
PROVIDERS: ADMIT Obstetrics & Gynecology; ATTEND Obstetrics & Gynecology
PROC: 10E0XZZ Delivery of Products of Conception, External Approach (ICD-10-PCS; principal; 2021-02-14)
PROC: 0UQMXZZ Repair Vulva, External Approach (ICD-10-PCS; 2021-02-14)
DX: O42.913 Preterm premature rupture of membranes, unspecified as to length of time between rupture and onset of labor, third trimester (principal); Z37.0 Single live birth; O13.4 Gestational [pregnancy-induced] hypertension without significant proteinuria, complicating childbirth; Z3A.36 36 weeks gestation of pregnancy; O99.334 Smoking (tobacco) complicating childbirth; O70.0 First degree perineal laceration during delivery
CPT/HCPCS: 36415; 80053; 80306; 82570; 83615; 84156; 85025; 85384; 85610; 85730; 86850; 86900; 86901; 99212

== ENCOUNTER → 2021-03-29 | Outpatient (CLI) | payer MEDICAID ==
[~2021-03-29] MED LIST changes: +ACET-93 PO; +ETOD500T3; -ETOD500T4
--- NOTE | 2021-03-29 14:26 | Diagnostic Imaging Report ---
PROCEDURE: US PELVIC (NON OB) TECHNIQUE: Multiple real-time grayscale images were obtained over the pelvis in various projections transabdominally. INDICATION: Heavy bleeding. Patient is 6 weeks . Uterus is retroflexed measuring 8.1 x 5.4 x 4.8 cm. Endometrium is 6 mm in thickness. No abnormal vascularity to the endometrium is identified. No myometrial mass is identified. Right ovary was nonvisualized. Left ovary measures 3.0 x 1.9 x 2.7 cm and shows normal blood flow. No adnexal mass or free fluid is detected. IMPRESSION: Unremarkable transabdominal pelvic ultrasound. No findings to suggest retained products of conception are identified. There is no acute feature detected. Dictated by: Dictated on workstation # [id number]
== END ==
LOC: RAD 13:30
PROVIDERS: ATTEND Nurse Practitioner Women's Health
DX: N93.9 Abnormal uterine and vaginal bleeding, unspecified (principal)
CPT/HCPCS: 76856

== ENCOUNTER → 2022-12-27 | Outpatient (CLI) | payer MEDICAID | LOC: LABNPT 15:47 | PROVIDERS: ATTEND Nurse Practitioner Women's Health | DX: R80.9 Proteinuria, unspecified (principal) | CPT/HCPCS: 82570; 84156 ==

== ENCOUNTER → 2022-12-27 | Outpatient (CLI) | payer MEDICAID ==
--- NOTE | 2022-12-27 17:48 | Diagnostic Imaging Report ---
INDICATION: patient, survey. TECHNIQUE: Multiple real-time grayscale images were obtained over the gravid uterus. COMPARISON: None. FINDINGS: A single live intrauterine fetus is seen measuring 26 weeks 1 day in size. The fetus is in breech presentation. Amniotic fluid index is 25.1 cm. Placenta is fundal with no evidence of previa. heart rate is 142 bpm. Cervical length is 3.9 cm. Distance from the internal os to the cervix is 15.3 cm. survey showed normal-appearing kidneys and bladder. stomach appears normal. Cranial ventricles appear normal. Four-chamber heart view appears normal. spine appears normal. Three-vessel cord and cord insertion are normal. Biometrical measurements are as follows: Biparietal 6.53 cm, age 26 weeks 3 days. Head circumference 24.46 cm, age 26 weeks 4 days. Abdominal circumference 22.05 cm, age 26 weeks 4 days. Femur length 4.51 cm, age 25 weeks 0 days. Sonographic estimate age: 26 weeks 1 days. Sonographic estimated date of delivery: 04/03/2023. Estimated Weight: 871 gm (+/- 128 gm). LMP percentile: >98%. heart rate: 142 beats per minute. number: 1 of 1. IMPRESSION: Single live intrauterine fetus measuring 26 weeks 1 day in size with no detectable abnormality. Dictated by: Dictated on workstation # [id number]
== END ==
LOC: RAD 13:11
PROVIDERS: ATTEND Obstetrics & Gynecology
DX: O09.32 Supervision of pregnancy with insufficient antenatal care, second trimester (principal); Z3A.26 26 weeks gestation of pregnancy
CPT/HCPCS: 76805

== ENCOUNTER 2023-03-13 15:10 | Inpatient (IN) | payer MEDICAID ==
[~2023-03-13] VITALS: Ht 172.7 cm; Wt 86.6 kg
[2023-03-13] VITALS (19 sets, daily range): BP systolic 131–155; BP diastolic 87–105
[2023-03-13 15:59] LABS: BASOPHILS % (AUTO) 0 % (0-10); EOSINOPHILS % (AUTO) 1 % (0-10); HEMATOCRIT 33 % (35-52); HEMOGLOBIN 10.9 g/dL (11.5-16.0); LYMPHOCYTES # (AUTO) 1.8 10^3/uL (1.0-4.0); LYMPHOCYTES % (AUTO) 32 % (12-44); MEAN CORPUSCULAR HEMOGLOBIN 30 pg (25-34); MEAN CORPUSCULAR HGB CONC 33 g/dL (32-36); MEAN CORPUSCULAR VOLUME 91 fL (80-99); MEAN PLATELET VOLUME 11.5 fL (9.0-12.2); MONOCYTES # (AUTO) 0.4 10^3/uL (0.0-1.0); MONOCYTES % (AUTO) 7 % (0-12); NEUTROPHILS # (AUTO) 3.4 10^3/uL (1.8-7.8); NEUTROPHILS % (AUTO) 60 % (42-75); PLATELET COUNT 234 10^3/uL (130-400); WHITE BLOOD COUNT 5.6 10^3/uL (4.3-11.0)
[2023-03-13 16:02] LABS: BACTERIA,URINE MODERATE /HPF; BILIRUBIN,URINE NEGATIVE (NEGATIVE); CLARITY,URINE CLEAR; COLOR,URINE YELLOW; GLUCOSE, URINE (UA) NEGATIVE (NEGATIVE); KETONES,URINE NEGATIVE (NEGATIVE); LEUKOCYTE ESTERASE ,URINE 1+ (NEGATIVE); NITRITE,URINE NEGATIVE (NEGATIVE); PH,URINE 6.5 (5-9); PROTEIN,URINE 2+ (NEGATIVE); SQUAMOUS EPITHELIAL CELL,UR 25-50 /HPF
[2023-03-13 16:03] LABS: AMPHETAMINE SCREEN, URINE POSITIVE (NEGATIVE); BARBITURATE SCREEN URINE NEGATIVE (NEGATIVE); CANNABINOID SCREEN, URINE NEGATIVE (NEGATIVE); COCAINE SCREEN URINE NEGATIVE (NEGATIVE); METHADONE STAT NEGATIVE (NEGATIVE); OPIATE SCREEN URINE NEGATIVE (NEGATIVE); OXYCODONE STAT NEGATIVE (NEGATIVE); TRICYCLIC ANTIDEPRESSANTS SCRE NEGATIVE (NEGATIVE)
[2023-03-13 16:22] LABS: BILIRUBIN,TOTAL 0.3 MG/DL (0.1-1.0); CALCIUM 8.7 MG/DL (8.5-10.1); CREATININE SERUM 0.54 MG/DL (0.60-1.30); POTASSIUM 3.6 MMOL/L (3.6-5.0); TOTAL PROTEIN 6.1 GM/DL (6.4-8.2); URIC ACID 4.9 MG/DL (2.6-7.2)
[2023-03-13 16:25] LABS: URINE CREATININE FOR RATIO 155 MG/DL (30-125); URINE PROTEIN FOR RATIO ONLY 55 MG/DL (6-12)
[2023-03-13] MEDS ORDERED: LABETALOL 200 MG TABLET PO ONE (16:45)
--- NOTE | 2023-03-13 17:26 | Diagnostic Imaging Report ---
INDICATION: Elevated blood pressure. Biophysical profile was performed. Fetus is cephalic. heart rate was recorded at 153 bpm. Amniotic fluid index is 20.5 cm. Biophysical profile score is 6 out of 8. Two-point reduction was given for lack of breathing movements. IMPRESSION: biophysical profile score 6 out of 8. Dictated by: Dictated on workstation # [id number]
[2023-03-13] MEDS ORDERED: AMPICILLIN (IV) 2,000 MG in NS (IVPB) 50 ML 50 ML IV SCH (17:51)
[2023-03-13] MEDS: LACTATED RINGERS 1,000 ML 500 ML IV PRN (18:07)
[2023-03-13] MEDS: D5 LR 1,000 ML IV SOLN 1,000 ML IV SCH (19:53)
[2023-03-13] MEDS: AMPICILLIN (IV) 1,000 MG in NS (IVPB) 50 ML 50 ML IV SCH (22:31)
[2023-03-14] VITALS (55 sets, daily range): BP systolic 109–155; BP diastolic 57–100
[2023-03-14] MEDS ORDERED: HYDROmorphone INJECTION 2 MG/ML VIAL IV ONE (01:00)
[2023-03-14] MEDS: AMPICILLIN (IV) 1,000 MG in NS (IVPB) 50 ML 50 ML IV SCH ×4 (02:23→14:14)
[2023-03-14] MEDS: D5 LR 1,000 ML IV SOLN 1,000 ML IV SCH ×2 (04:36→13:06)
--- NOTE | 2023-03-14 07:18 | History & Physical-OB ---
OB - Chief Complaint & HPI Date/Time Date of Admission: Date of Admission: Mar 13, 2023 at 17:42 Date seen by a Provider: Mar 14, 2023 Time Seen by a Provider: 21:30 Chief Complaint/History OB-Reason for Admission/Chief: Induction of Labor Hx : 3 Hx Para: 1 Expected Date of Delivery: Apr 03, 2023 Gestational Age in Weeks: 37 Gestational Age in Days: 0 Indication for induction: medical complication Admission Nurse Assessment Rev: Yes Allergies and Home Medications Allergies Coded Allergies: tramadol (Verified Allergy, Unknown, 02/13/18) Patient Home Medication List Home Medication List Reviewed: Yes Pregabalin (Lyrica) 150 Mg Capsule, 150 MG PO DAILY, (Reported) Entered as Reported by: HANS DALY on 11/27/202036 Last Action: Reviewed Vit W-Ca,Fe,FA(<1 mg) ( Vitamins) 1 Each Tablet, 1 EACH PO DAILY, (Reported) Entered as Reported by: LANEY GANN on 08/09/18 133 Last Action: Reviewed Discontinued Medications Acetaminophen (Acetaminophen) 500 Mg Tablet, 1,000 MG PO Q8HR Discontinued Reason: No Longer Taking Prescribed by: SAM SHARP on 02/15/21942 Last Action: Discontinued Cephalexin (Cephalexin) 500 Mg Tablet, 500 MG PO TID, (Reported) Discontinued Reason: No Longer Taking Entered as Reported by: HANS DALY on 11/27/202036 Last Action: Discontinued Folic Acid (Folic Acid) 0.4 Mg Tablet, 0.4 MG PO, (Reported) Discontinued Reason: No Longer Taking Entered as Reported by: HANS DALY on 11/27/202036 Last Action: Discontinued Ibuprofen (Ibu) 600 Mg Tablet, 600 MG PO Q6HR Discontinued Reason: No Longer Taking Prescribed by: SAM SHARP on 02/15/21942 Last Action: Discontinued OB - History Hx of Present Care: Yes (limited PNC only 2 visits with multiple noshows and missed appointments) Obstetrical Complications: Pre-eclampsia Medical Complications: Other (ilicit drug use admitted during (methamphetamine)) Obstetrical History Hx : 3 Hx Para: 1 Hx Termination: No Hx Multiple Gestation: No Hx Stillbirth: No Hx Complication: No Hx Induced Hypertens: Yes Hx Maternal Gestational Diabet: No Delivery History Hx Dystocia: No Hx Large For Gestational Age I: No Hx Small for Gestational Age I: No Hx Section: No Hx Blood Disorders: No Patient Past Medical History Hx of ilicit drug use Social History/Family History Alcohol Use: Denies Use Recreational Drug Use: Yes 2nd Hand Smoke Exposure: No Immunizations Influenza Vaccine Up-to-Date: Yes; Up-to-Date Hepatitis A: Yes Hepatitis B: Yes Tetanus Booster (TDap): Unknown OB - Admission Exam Physical Exam Vitals: Vital Signs 03/14/23 03/14/23 03:57 04:58 Temp 36.4 Pulse 69 Resp 18 B/P (MAP) 139/79 (99) Pulse Ox 99 O2 Delivery Room Air HEENT: NCAT Heart: Rhythm Normal Lungs: Clear Abdomen: Gravid Extremities: Normal Reflexes: Normal Cervical Dilatation: None Effacement: 75% Station: -2 Membranes: Intact Heart Rate: 130's Accelerations: Accelerations Present Decelerations: No Decelerations Short Term Variability: Present Correction Variability: Average (6-25) Contractions on Admission: 6-10 Minutes Apart Intensity: Mild Labs Laboratory Tests Test 03/13/23 15:30 03/13/23 15:50 Range/Units Urine Color YELLOW Urine Clarity CLEAR Urine pH 6.5 5-9 Urine Specific [place] >=1.030 1.016-1.022 Urine Protein 55 H 6-12 MG/DL Urine Glucose (UA) NEGATIVE NEGATIVE Urine Ketones NEGATIVE NEGATIVE Urine Nitrite NEGATIVE NEGATIVE Urine Bilirubin NEGATIVE NEGATIVE Urine Urobilinogen 1.0 < = 1.0 MG/DL Urine Leukocyte Esterase 1+ H NEGATIVE Urine RBC (Auto) NEGATIVE NEGATIVE Urine RBC 2-5 H /HPF Urine WBC 10-25 H /HPF Urine Squamous Epithelial Cells 25-50 H /HPF Urine Crystals NONE /LPF Urine Bacteria MODERATE H /HPF Urine Casts NONE /LPF Urine Mucus LARGE H /LPF Urine Culture Indicated CULTURE PENDING Urine Creatinine 155 H 30-125 MG/DL Urine Protein/Creatinine Ratio 0.35 Urine Opiates Screen NEGATIVE NEGATIVE Urine Oxycodone Screen NEGATIVE NEGATIVE Urine Methadone Screen NEGATIVE NEGATIVE Urine Barbiturates Screen NEGATIVE NEGATIVE Ur Tricyclic Antidepressants Screen NEGATIVE NEGATIVE Urine Phencyclidine Screen NEGATIVE NEGATIVE Urine Amphetamines Screen POSITIVE H NEGATIVE Urine Methamphetamines Screen POSITIVE H NEGATIVE Urine Benzodiazepines Screen NEGATIVE NEGATIVE Urine Cocaine Screen NEGATIVE NEGATIVE Urine Cannabinoids Screen NEGATIVE NEGATIVE White Blood Count 5.6 4.3-11.0 10^3/uL Red Blood Count 3.62 L 3.80-5.11 10^6/uL Hemoglobin 10.9 L 11.5-16.0 g/dL Hematocrit 33 L 35-52 % Mean Corpuscular Volume 91 80-99 fL Mean Corpuscular Hemoglobin 30 25-34 pg Mean Corpuscular Hemoglobin Concent 33 32-36 g/dL Red Cell Distribution Width 14.3 10.0-14.5 % Platelet Count 234 130-400 10^3/uL Mean Platelet Volume 11.5 9.0-12.2 fL Immature Granulocyte % (Auto) 0 % Neutrophils (%) (Auto) 60 42-75 % Lymphocytes (%) (Auto) 32 12-44 % Monocytes (%) (Auto) 7 0-12 % Eosinophils (%) (Auto) 1 0-10 % Basophils (%) (Auto) 0 0-10 % Neutrophils # (Auto) 3.4 1.8-7.8 10^3/uL Lymphocytes # (Auto) 1.8 1.0-4.0 10^3/uL Monocytes # (Auto) 0.4 0.0-1.0 10^3/uL Eosinophils # (Auto) 0.0 0.0-0.3 10^3/uL Basophils # (Auto) 0.0 0.0-0.1 10^3/uL Immature Granulocyte # (Auto) 0.0 0.0-0.1 10^3/uL Sodium Level 139 135-145 MMOL/L Potassium Level 3.6 3.6-5.0 MMOL/L Chloride Level 110 H 98-107 MMOL/L Carbon Dioxide Level 18 L 21-32 MMOL/L Anion Gap 11 5-14 MMOL/L Blood Urea Nitrogen 5 L 7-18 MG/DL Creatinine 0.54 L 0.60-1.30 MG/DL Estimat Glomerular Filtration Rate 128 BUN/Creatinine Ratio 9 Glucose Level 92 70-105 MG/DL Uric Acid 4.9 2.6-7.2 MG/DL Calcium Level 8.7 8.5-10.1 MG/DL Corrected Calcium 9.5 8.5-10.1 MG/DL Total Bilirubin 0.3 0.1-1.0 MG/DL Aspartate Amino Transf (AST/SGOT) 18 5-34 U/L Alanine Aminotransferase (ALT/SGPT) 13 0-55 U/L Alkaline Phosphatase 138 H 40-136 U/L Lactate Dehydrogenase 232 H 125-220 U/L Total Protein 6.1 L 6.4-8.2 GM/DL Albumin 3.0 L 3.2-4.5 GM/DL OB - Assessment/Plan/Diagnosis Assessment Assessment: induction of labor Admission Dx 28 yo @ 37 weeks Mild PreE Hx of ilicit drug use GBS unknown Admission Status: Inpatient Order (span 2 midnights) Reason for Inpatient Admission: IOL at 37 weeks Plan Plan: Induction Induction Method: per Misoprostol Protocol Other Plan BPP 09/28 - 2 for breathing JINA SANTIAGO DO Mar 14, 2023 07:18
[2023-03-14] MEDS: LACTATED RINGERS 1,000 ML 500 ML IV PRN (07:28)
[2023-03-14] MEDS ORDERED: OXYTOCIN DRIP PRE-MIX 500 ML IV SCH (08:45)
[2023-03-14] MEDS ORDERED: fentaNYL 2 mcg/ml BUPIVA 0.125 100 ML ONE (08:45)
[2023-03-14] MEDS ORDERED: BUPIVACAINE 0.25% 10 ML VIAL ONE (08:59)
[2023-03-14] MEDS ORDERED: fentaNYL INJECTION 100 MCG/2 ML VIAL ONE (08:59)
[2023-03-14] MEDS ORDERED: LACTATED RINGERS 1,000 ML 1,000 ML IV SCH (09:00)
[2023-03-14] MEDS ORDERED: diphenhydrAMINE INJ 50 MG/ML VIAL IV PRN (09:00)
[2023-03-14] MEDS ORDERED: fentaNYL 2 mcg/ml BUPIVA 0.125 100 ML EPI SCH (09:00)
[2023-03-14] MEDS ORDERED: NALOXONE 0.4 MG/ML 1 ML VIAL IV PRN ×2 (09:00→17:00)
[2023-03-14] MEDS: LABETALOL 200 MG TABLET PO SCH ×2 (10:05→20:48)
[2023-03-14] MEDS: ONDANSETRON INJECTION 4 MG/2 ML (SDV) IV PRN ×2 (10:16→15:31)
[2023-03-14] MEDS ORDERED: LIDOCAINE 2% w/EPI 1:200,000 20 ML VIAL ONE (16:21)
[2023-03-14] MEDS: OXYTOCIN DRIP PRE-MIX 500 ML IV SCH ×2 (16:38→17:03)
--- NOTE | 2023-03-14 16:53 | Discharge Inst-Women's Service ---
Discharge Inst-Women's Serv Depart Medication/Instructions New, Converted or Re-Newed RX: Transmitted to Pharmacy Final Diagnosis PPD 2 NVD, PreE Problems Reviewed?: Yes Consults/Follow Up Additional Follow Up: Yes Orders/Referrals Dr. Santiago in 6 weeks Activity Activity: Activity as Tolerated Driving Instructions: No Driving for 1 Week NO SMOKING: NO SMOKING Nothing Inside Vagina: No Douching, No [place], No Tampons Diet Discharge Diet: No Restrictions Symptoms to Report to : Bleeding Excessive, Pain Increased, Fever Over 101 Degrees F, Vaginal Bleeding Increase, Questions/Concerns For Any Problems or Questions: Contact Your Physician JINA SANTIAGO DO Mar 14, 2023 16:53
[2023-03-14] MEDS ORDERED: LABE200T10 PO (16:54)
[2023-03-14] MEDS ORDERED: IBUP-1773 PO (16:54)
[2023-03-14] MEDS ORDERED: ACET325T38 PO (16:55)
--- NOTE | 2023-03-14 16:59 | OB Labor & Delivery Record ---
L&D History Date of Service Date of Service: Mar 14, 2023 History Expected Date of Delivery: Apr 03, 2023 Gestational Age in Weeks: 37 Hx : 3 Hx Para: 1 Complications Events: No Care (very limited PNC), Pre-Eclampsia Operative Indications (Cesarea: N/A-Vaginal Delivery Intrapartal Events: None L&D Stage1 Stage One Onset of Labor - Date: Mar 14, 2023 Monitors and Tracing Monitor Mode: External Heart Rate: 125 Vital Signs VS - Last 72 Hours, by Label 03/13/23 03/13/23 03/13/23 03/13/23 15:08 15:25 15:30 15:35 Temp 35.7 35.7 Pulse 117 117 95 89 Resp 18 18 18 18 B/P (MAP) 140/105 (117) 138/94 (109) 151/102 (118) Pulse Ox 97 97 99 99 O2 Delivery Room Air Room Air Room Air Room Air 03/13/23 03/13/23 03/13/23 03/13/23 15:40 15:45 16:00 16:02 Temp 35.7 Pulse 98 100 93 117 Resp 18 18 18 20 B/P (MAP) 140/100 (113) 147/98 (114) 153/102 (119) 140/105 Pulse Ox 99 99 99 99 O2 Delivery Room Air Room Air Room Air Room Air 03/13/23 03/13/23 03/13/23 03/13/23 16:15 16:30 16:45 17:00 Pulse 89 88 89 94 Resp 18 18 18 18 B/P (MAP) 155/99 (117) 134/90 (105) 131/90 (104) 141/98 (112) O2 Delivery Room Air Room Air Room Air Room Air 03/13/23 03/13/23 03/13/23 03/13/23 17:45 18:00 19:00 19:59 Pulse 90 88 86 Resp 18 18 18 18 B/P (MAP) 149/99 (116) 135/90 (105) 137/90 (106) O2 Delivery Room Air Room Air Room Air Room Air 03/13/23 03/13/23 03/13/23 03/13/23 20:57 21:57 22:57 23:57 Temp 36.4 Pulse 95 94 83 89 Resp 18 18 18 18 B/P (MAP) 137/95 (109) 142/93 (109) 134/87 (103) 137/87 (104) O2 Delivery Room Air Room Air Room Air Room Air 03/14/23 03/14/23 03/14/23 03/14/23 00:57 01:57 02:57 03:57 Temp 36.4 Pulse 87 81 79 98 Resp 18 18 18 18 B/P (MAP) 136/89 (105) 120/73 (89) 132/81 (98) 138/80 (99) Pulse Ox 99 O2 Delivery Room Air Room Air Room Air Room Air 03/14/23 03/14/23 03/14/23 03/14/23 04:58 09:00 09:05 09:10 Pulse 69 87 94 92 Resp 18 18 18 18 B/P (MAP) 139/79 (99) 139/94 (109) 133/92 (106) 131/78 (95) Pulse Ox 100 O2 Delivery Room Air Room Air Room Air Room Air 03/14/23 03/14/23 03/14/23 03/14/23 09:15 09:25 09:30 09:35 Pulse 91 94 83 76 Resp 18 18 18 18 B/P (MAP) 140/100 (113) 144/89 (107) 148/85 (106) 132/85 (101) Pulse Ox 100 98 98 98 O2 Delivery Room Air Room Air Room Air Room Air 03/14/23 03/14/23 03/14/23 03/14/23 09:40 09:45 09:50 09:55 Temp 36.0 Pulse 88 84 96 83 Resp 18 18 18 18 B/P (MAP) 132/88 (103) 136/77 (96) 131/66 (87) 134/83 (100) Pulse Ox 98 98 97 98 O2 Delivery Room Air Room Air Room Air Room Air 03/14/23 03/14/23 03/14/23 03/14/23 10:00 10:05 10:10 10:15 Pulse 84 93 87 87 Resp 18 18 18 18 B/P (MAP) 136/77 (96) 131/84 (100) 133/85 (101) Pulse Ox 98 98 99 98 O2 Delivery Room Air Room Air Room Air Room Air 03/14/23 03/14/23 03/14/23 03/14/23 10:30 10:45 11:00 11:15 Temp 35.7 Pulse 74 77 82 74 Resp 18 18 18 18 B/P (MAP) 140/87 (104) 143/84 (103) 133/92 (106) 139/93 (108) Pulse Ox 98 100 100 100 O2 Delivery Room Air Room Air Room Air Room Air 03/14/23 03/14/23 03/14/23 03/14/23 11:30 11:45 12:00 12:15 Temp 36.1 Pulse 89 96 78 82 Resp 18 18 18 18 B/P (MAP) 132/87 (102) 135/86 (102) 126/83 (97) 130/95 (107) Pulse Ox 98 100 100 99 O2 Delivery Room Air Room Air Room Air Room Air 03/14/23 03/14/23 03/14/23 03/14/23 12:30 12:45 13:00 13:15 Pulse 84 65 65 106 Resp 18 18 18 18 B/P (MAP) 123/81 (95) 125/87 (100) 125/87 (100) 136/85 (102) Pulse Ox 99 100 100 99 O2 Delivery Room Air Room Air Room Air Room Air 03/14/23 03/14/23 03/14/23 03/14/23 13:30 13:45 14:00 14:15 Temp 36.1 Pulse 81 80 68 80 Resp 18 18 18 18 B/P (MAP) 134/83 (100) 111/59 (76) 114/66 (82) 120/70 (87) Pulse Ox 98 99 100 100 O2 Delivery Room Air Room Air Room Air Room Air 03/14/23 03/14/23 03/14/23 03/14/23 14:30 14:45 15:00 15:15 Pulse 83 74 74 78 Resp 18 18 18 18 B/P (MAP) 109/62 (78) 127/70 (89) 125/80 (95) 128/80 (96) Pulse Ox 98 98 99 99 O2 Delivery Room Air Room Air Room Air Room Air 03/14/23 15:30 Pulse 86 Resp 18 B/P (MAP) 111/69 (83) Pulse Ox 99 O2 Delivery Room Air Rupture of Membranes Spontaneous Ruture of Membrane: No Amniotic Membrane Rupture Time: 0720 Amniotic Membrane Fluid Desc.: Clear Vaginal Bleeding Description: Normal Show Induction/Anesthesia Epidural Cath Placement - Time: 09 Progress/Notes Patient admitted for mild preE at 37 weeks, misoprostol IOL overnight, followed by AROM and Pitocin augmentation. She had an epidural placed, and progressed to complete and + 2 station. L&D Stage2 Stage Two Stage II Date: Mar 14, 2023 Monitors and Tracing Monitor Mode: External Heart Rate: 125 Monitor Accelerations: Uniform Monitor Decelerations: None Group Home Variability: Average (6-10) Short Term Variability: Present Position: Right Occiput Anterior Presentation: Vertex Cord Descript/Complications Cord Vessel Description: 3 Vessels Delivery Type Delivery Method: Spontaneous Vaginal Anterior Shoulder: Left Episiotomy/Perineal Laceration Laceraction(s)/Extensions: No Condition of Infant Delivery 1 minute Comment: 8 5 minute Comment: 9 Notes Live male weight 7lbs 7 oz Condition of Condition of Infant: Living Exam: No Observed Abnormalities Resuscitation Resuscitation: N/A - Spontaneous Resp L&D Stage3 Stage Three Stage III Date: Mar 14, 2023 Pictocin Pitocin Administration mu/min: 12 Pitocin ml/hr: 12 Pitocin Administration Comment: 30 mu wide open after delivery of placneta Placenta Delivery Placenta Delivery: Spontaneous Delivery Summary Summary Estimated blood loss (mL): 200 Attending at delivery: Jina Santiago DO Condition of Delivery Examined: Cervix Examined, Uterus Explored Post Hemorrhage: No Condition of Mother stable Condition of Infant (s) stable JINA SANTIAGO DO Mar 14, 2023 16:59
[2023-03-14] MEDS ORDERED: MEASLES, MUMPS, RUBELLA VACCINE (MMR) SQ ONE (17:00)
[2023-03-14] MEDS ORDERED: Tetanus/Diphtheria/Pertussis (Acell) ADULT Vaccine 0.5 ML IM ONE (17:00)
[2023-03-14] MEDS ORDERED: WITCH HAZEL(TUCKS) 40 EA JAR TOP PRN (17:00)
[2023-03-14] MEDS ORDERED: BENZOCAINE/MENTHOL (DERMOPLAST) 56 ML CAN TP PRN (17:00)
[2023-03-14] MEDS ORDERED: DIBUCAINE 1% OINTMENT 28 GM TUBE TOP PRN (17:00)
[2023-03-14] MEDS: IBUPROFEN 600 MG TABLET PO SCH ×2 (17:05→23:00)
[2023-03-14] MEDS ORDERED: ACETAMINOPHEN 500 MG TABLET PO PRN (19:45)
[2023-03-14] MEDS ORDERED: ACETAMINOPHEN 500 MG TABLET ONE (20:45)
[2023-03-14] MEDS: DOCUSATE SODIUM 100 MG CAPSULE PO SCH (20:48)
[2023-03-14] MEDS: ACETAMINOPHEN 500 MG TABLET PO PRN (20:49)
[2023-03-14] MEDS ORDERED: CATHETER FLUSH 10 ML SYR IV SCH (22:00)
[2023-03-14] MEDS ORDERED: PREGABALIN 150 MG CAPSULE ONE (23:35)
[2023-03-14] MEDS: PREGABALIN 150 MG CAPSULE PO SCH (23:42)
[2023-03-15] MEDS: ACETAMINOPHEN 500 MG TABLET PO PRN ×2 (03:23→12:00)
[2023-03-15 03:29] VITALS: BP 126/82
[2023-03-15] MEDS: IBUPROFEN 600 MG TABLET PO SCH ×3 (05:24→18:04)
[2023-03-15 05:57] LABS: BASOPHILS % (AUTO) 0 % (0-10); EOSINOPHILS % (AUTO) 1 % (0-10); HEMATOCRIT 31 % (35-52); HEMOGLOBIN 10.1 g/dL (11.5-16.0); LYMPHOCYTES % (AUTO) 28 % (12-44); MEAN CORPUSCULAR HEMOGLOBIN 29 pg (25-34); MEAN CORPUSCULAR HGB CONC 32 g/dL (32-36); MEAN CORPUSCULAR VOLUME 91 fL (80-99); MEAN PLATELET VOLUME 11.3 fL (9.0-12.2); MONOCYTES # (AUTO) 0.7 10^3/uL (0.0-1.0); MONOCYTES % (AUTO) 9 % (0-12); NEUTROPHILS # (AUTO) 4.5 10^3/uL (1.8-7.8); NEUTROPHILS % (AUTO) 62 % (42-75); PLATELET COUNT 182 10^3/uL (130-400); WHITE BLOOD COUNT 7.2 10^3/uL (4.3-11.0)
[2023-03-15] MEDS ORDERED: PRENATAL VITAMIN TABLET PO SCH (07:00)
[2023-03-15] MEDS ORDERED: FERROUS SULFATE 325 MG (IRON) TABLET PO SCH (09:00)
--- NOTE | 2023-03-15 09:37 | Short Stay Summary ---
Discharge Summary Hospital Course Final Diagnosis: 37 weeks, preeclampsia Hospital Course Date of Admission: Mar 13, 2023 at 17:42 Admission Diagnosis : Family Physician/Provider: Aamir Cosme DO Date of Discharge: 03/15/23 Discharge Diagnosis: 37 weeks, state after vaginal delivery, preeclampsia Hospital Course: Patient is now a at 37 weeks admitted 03/13/23 with diagnosis of mild preeclampsia, +UDS for meth underwent IOL and subsequent vaginal delivery viable male infant yesterday 03/14/23. medical services assistant involved in disposition given UDS history. Patient was placed on labetolol a few weeks prior to admission. She continues on Labetalol 200 mg bid with BP mostly in normal range. Patient has had an uncomplicated course. Instructed to make an appointment in Dr. Cosme's office within 7-10 days for a BP check. Labs and Pending Lab Test: Laboratory Tests 03/15/23 05:28: White Blood Count 7.2, Red Blood Count 3.44L, Hemoglobin 10.1L, Hematocrit 31L, Mean Corpuscular Volume 91, Mean Corpuscular Hemoglobin 29, Mean Corpuscular Hemoglobin Concent 32, Red Cell Distribution Width 14.6H, Platelet Count 182, Mean Platelet Volume 11.3, Immature Granulocyte % (Auto) 0, Neutrophils (%) (Auto) 62, Lymphocytes (%) (Auto) 28, Monocytes (%) (Auto) 9, Eosinophils (%) (Auto) 1, Basophils (%) (Auto) 0, Neutrophils # (Auto) 4.5, Lymphocytes # (Auto) 2.0, Monocytes # (Auto) 0.7, Eosinophils # (Auto) 0.0, Basophils # (Auto) 0.0, Immature Granulocyte # (Auto) 0.0 Microbiology 03/13/23 Urine Culture - Final, Complete >=3 Gram Positive Isolates Home Meds Active Tylenol (Acetaminophen) 325 Mg Tablet 325 Mg PO Q4H Ibuprofen 600 Mg Tablet 600 Mg PO Q6H Labetalol HCl 200 Mg Tablet 200 Mg PO BID Reported Lyrica (Pregabalin) 150 Mg Capsule 150 Mg PO DAILY Vitamins ( Vit W-Ca,Fe,FA(<1 mg)) 1 Each Tablet 1 Each PO DAILY Assessment/Pt Instructions Doing well. See routine written instructions. Discharge Instructions Discharge Diet: No Restrictions Activity as Tolerated: Yes Discharge Physical Examination General Appearance: Alert, Oriented X3 Abdominal: Soft, No Tenderness, Other (uterus 6 cm below umbulicus, firm and non-tender) Extremities: No Edema, No Tenderness/Swelling Skin: No Rashes Neuro: Normal Gait Psych/Mental Status: Mental Status NL Allergies: Coded Allergies: tramadol (Verified Allergy, Unknown, 02/13/18) Discharge Summary Date of Admission Mar 13, 2023 at 17:42 Date of Discharge 03/16/23 (possible early discharge evening of 03/15/23) Discharge Date: Mar 16, 2023 Admission Diagnosis 37 weeks Mild Preeclampsia Consults/Procedures Consulations None Procedures Vaginal Delivery Discharge Diagnosis 37 weeks Mild Preeclampsia SARATH HUMMEL DO Mar 15, 2023 09:33
[2023-03-15] MEDS: PREGABALIN 150 MG CAPSULE PO SCH ×2 (09:39→18:16)
[2023-03-15] MEDS: DOCUSATE SODIUM 100 MG CAPSULE PO SCH (09:40)
[2023-03-15] MEDS: LABETALOL 200 MG TABLET PO SCH ×2 (09:40→18:16)
[2023-03-15 09:41] VITALS: BP 148/87
[2023-03-15 14:13] VITALS: BP 128/75
[2023-03-15 18:02] VITALS: BP 146/98
--- NOTE | 2023-03-16 12:59 | Anesthesia-Regional Post-Op ---
Regional Post Op Complications Complications None Follow Up Care/Instructions Patient Instructions None needed. Anesthesia/Patient Condition Patient discharged. Chart reviewed with no apparent adverse anesthesia problems noted. AMNA TITUS CRNA Mar 16, 2023 12:59
== END 2023-03-15 18:40 | disposition home or self-care (01) | DRG 807 ==
LOC: WSo 15:10 → LDRP 15:17 → WSo 17:37 → LDRP 17:42
PROVIDERS: ADMIT Obstetrics & Gynecology; ATTEND Obstetrics & Gynecology
PROC: 3E0DXGC Introduction of Other Therapeutic Substance into Mouth and Pharynx, External Approach (ICD-10-PCS; 2023-03-13)
PROC: 10E0XZZ Delivery of Products of Conception, External Approach (ICD-10-PCS; principal; 2023-03-14)
PROC: 10907ZC Drainage of Amniotic Fluid, Therapeutic from Products of Conception, Via Natural or Artificial Opening (ICD-10-PCS; 2023-03-14)
DX: O14.04 Mild to moderate pre-eclampsia, complicating childbirth (principal); Z37.0 Single live birth; Z3A.37 37 weeks gestation of pregnancy; O99.323 Drug use complicating pregnancy, third trimester; F15.90 Other stimulant use, unspecified, uncomplicated; Z88.5 Allergy status to narcotic agent
CPT/HCPCS: 36415; 76819; 80053; 80306; 81000; 82570; 83615; 84156; 84550; 85025; 86850; 86900; 86901; 87088; 99213